=== PATIENT | female | born 1935 | race Caucasian/White ===

== ENCOUNTER → 2017-10-21 10:14 | Outpatient (CLI) | payer MEDICARE, SELFPAY ==
--- NOTE | 2017-10-21 10:17 | HPBI_ITS ---
MAMMOGRAPHY - BILATERAL SCREENING REASON FOR EXAM: Female, 82 years old. Routine annual screening examination. PERTINENT HISTORY: Sisters with breast cancer. TECHNIQUE: Digital bilateral breast courtney (3D mammographic acquisition) in the CC and MLO projections. 2-D mediolateral oblique (MLO) and craniocaudad (CC) views of both breasts were obtained. CAD: Full Field Digital Mammography with Computer Added Detection was performed. COMPARISON: Comparison is made with prior outside examination dated January 21, 2015. FINDINGS: Breast Composition: There are scattered areas of fibroglandular density. There are no dominant masses or suspicious calcifications. Stable bilateral benign-appearing axillary lymph nodes. No other significant abnormalities are identified. There has been no significant change since the prior study. HPBI/SCREENING MAMM (CAD), BILAT IMPRESSION: Stable bilateral screening mammogram. Yearly follow-up mammogram recommended. (A) ASSESSMENT CATEGORY: BIRADS Category 2: Benign. A letter regarding these results will be sent to the patient by the facility within 30 days. Approximately 10% of breast cancers are not detected by mammography. A normal mammogram should not delay biopsy of a clinically suspicious abnormality. [id number] Electronically Signed: Maury Castrejon MD at 15:40 EST Tel [phone], Service support ,
== END ==
PROVIDERS: Family Provider Family Medicine; PCP Family Medicine; Visit Provider Family Medicine
DX: Z12.31 Encounter for screening mammogram for malignant neoplasm of breast (principal)
CPT/HCPCS: 77063; 77067

== ENCOUNTER → 2018-11-03 08:29 | Outpatient (CLI) | payer MEDICARE, SELFPAY ==
--- NOTE | 2018-11-03 08:33 | BI_ITS ---
MAMMOGRAPHY - BILATERAL SCREENING REASON FOR EXAM: Female, 83 years old. Routine annual screening examination. PERTINENT HISTORY: Sisters with breast cancer. TECHNIQUE: Digital bilateral breast courtney (3D mammographic acquisition) in the CC and MLO projections. 2-D mediolateral oblique (MLO) and craniocaudad (CC) views of both breasts were obtained. CAD: Full Field Digital Mammography with Computer Added Detection was performed. COMPARISON: Comparison is made with prior study dated April 20, 2018. FINDINGS: Breast Composition: There are scattered areas of fibroglandular density. There are no dominant masses or suspicious calcifications. Stable bilateral benign-appearing axillary lymph nodes. No other significant abnormalities are identified. There has been no significant change since the prior study. BI/SCREENING MAMM (CAD), BILAT IMPRESSION: Stable bilateral screening mammogram. Yearly follow-up mammogram recommended. (A) ASSESSMENT CATEGORY: BIRADS Category 2: Benign. A letter regarding these results will be sent to the patient by the facility within 30 days. Approximately 10% of breast cancers are not detected by mammography. A normal mammogram should not delay biopsy of a clinically suspicious abnormality. [id number] Electronically Signed: Maury Castrejon MD at 10:09 EST , Service support ,
== END ==
PROVIDERS: Family Provider Family Medicine; PCP Family Medicine; Referring Provider Family Medicine; Visit Provider Family Medicine
DX: Z12.31 Encounter for screening mammogram for malignant neoplasm of breast (principal); Z80.3 Family history of malignant neoplasm of breast
CPT/HCPCS: 77063; 77067

== ENCOUNTER → 2019-10-31 10:30 | Outpatient (CLI) | payer MEDICARE, SELFPAY ==
--- NOTE | 2019-10-31 10:34 | RAD_ITS ---
STUDY: X-RAY - LUMBAR SPINE REASON FOR EXAM: Female, 84 years old. Low back pain. Recent fall. TECHNIQUE: 3 view(s) of the lumbar spine were obtained. COMPARISON: None FINDINGS: Generalized osteopenia. Normal lumbar lordosis. There is no substantial scoliosis. 9 mm of anterolisthesis of L4 on L5. Endplate concavities compatible with osteoporosis. Diffuse intervertebral disc space narrowing most marked at L4-5 and L5-S1. Marked vascular calcification. RAD/Lumbar Spine 2 or 3 Views IMPRESSION: Osteopenia with diffuse moderate lumbar spondylosis. Electronically Signed: Alexander Dsouza MD at 15:45 EST , Service support ,
--- NOTE | 2019-10-31 10:35 | RAD_ITS ---
STUDY: X-RAY - PELVIS REASON FOR EXAM: Female, 84 years old. Low back pain. Recent fall. TECHNIQUE: One view of the pelvis was obtained. COMPARISON: None. FINDINGS: There is a non-specific bowel gas pattern. Vascular calcification. Generalized osteopenia. Normal bilateral iliac wings, sacroiliac joints and visualized sacrum. Normal visualized bilateral superior and inferior pubic rami. Normal pubic symphysis. Normal ischial tuberosities. Mild medial arthrosis of both hips. 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 Electronically Signed: Alexander Dsouza MD at 15:45 EST , Service support ,
== END ==
PROVIDERS: PCP Family Medicine; Referring Provider Internal Medicine Gastroenterology; Visit Provider Internal Medicine Gastroenterology
DX: M54.5 Low back pain (principal)
CPT/HCPCS: 72100; 72110; 72170

== ENCOUNTER → 2020-02-22 07:41 | Outpatient (CLI) | payer MEDICARE, SELFPAY ==
--- NOTE | 2020-02-22 07:53 | BI_ITS ---
MAMMOGRAPHY - BILATERAL SCREENING REASON FOR EXAM: Female, 84 years old. Routine annual screening examination. PERTINENT HISTORY: Sisters with breast cancer. TECHNIQUE: Digital bilateral breast jose (3D mammographic acquisition) in the CC and MLO projections. 2-D mediolateral oblique (MLO) and craniocaudad (CC) views of both breasts were obtained. CAD: Full Field Digital Mammography with Computer Added Detection was performed. COMPARISON: Comparison is made with prior study dated October 2018 and October 21, 2017. FINDINGS: Breast Composition: There are scattered areas of fibroglandular density. There are no dominant masses or suspicious calcifications. Stable benign-appearing bilateral axillary lymph nodes. No other significant abnormalities are identified. There has been no significant change since the prior study. BI/SCREEN MAMM (CAD) W/JOSE BILAT IMPRESSION: Stable bilateral screening mammogram. Yearly follow-up mammogram recommended. (A) ASSESSMENT CATEGORY: BIRADS Category 2: Benign. A letter regarding these results will be sent to the patient by the facility within 30 days. Approximately 10% of breast cancers are not detected by mammography. A normal mammogram should not delay biopsy of a clinically suspicious abnormality. [id number] Electronically Signed: Maury Castrejon, at 9:25 EDT , Service support ,
[2020-02-22 08:09] LABS: Absolute Lymphocyte Count 1.36 X10^3/uL (0.83-4.51); Absolute Neutrophil Count 3.3 X10^3/uL (2.0-7.7); Basophil# 0.04 X10^3/uL; Basophil% 0.7 % (0-1); Eosinophil# 0.16 X10^3/uL; Eosinophils% 2.9 % (0-5); Hematocrit 39.4 % (37-47); Hemoglobin 13.1 g/dL (12.0-15.0); Lymphocyte # 1.36 X10^3/ul (4.0); Lymphocyte % 24.8 % (19-41); Mean Corp Hgb Conc 33.2 g/dL (32-36); Mean Corpuscular Volume 96.1 fL (81-99); Mean Platelet Vol. 8.7 fl (6.2-12.0); Monocyte# 0.57 X10^3/uL; Monocyte% 10.4 % (0-10); NRBC Flagged by Analyzer 0 % (0-5); Neutrophil # 3.34 X10^3/uL (2.7-7.7); Platelet Count 343 K/mm3 (150-450); RBC Distribution Width SD 42.4 fl (35.1-43.9); White Blood Count 5.5 K/mm3 (4.4-11.0)
[2020-02-22 08:13] LABS: Color, Urine Straw (Yellow); Glucose, Dipstick Normal (Normal); Ketone-Dipstick Negative (Negative); Leukocyte Esterase-Dipstick 25 /ul (Negative); Nitrite-Dipstick Negative (Negative); Occult Blood-Urine 10 /ul (Negative); Protein-Dipstick Negative (Negative); Urine Bilirubin Dipstick Negative (Negative); Urine Clarity Clear (Clear); Urine Urobilinogen Normal (Normal); Urine pH 6.5 (5.0 - 8.0)
[2020-02-22 08:33] LABS: ALB/GLOB Ratio 1.1 RATIO (0.9-2.4); AST(SGOT) 21 U/L (15-37); Alanine Aminotransfer ALT/SGPT 22 U/L (13-56); Albumin, Serum 4.2 g/dL (3.2-5.0); Alkaline Phosphatase 62 U/L (45-117); Anion Gap 7 (5-15); BUN 10 mg/dL (7-18); Calcium,Total 9.3 mg/dL (8.5-10.1); Chloride 94 mmol/L (98-107); Cholesterol 267 mg/dL (200); Creatinine, Serum 0.91 mg/dL (0.55-1.02); EST Glomerular Filtration Rate 63 mL/min (>60); Est Glom Filt Rate - Afr Amer 76 mL/min (>60); Globulin 3.7 g/dL (2.2-4.2); Glucose 113 mg/dL (74-106); High Density Lipoprotein 43 mg/dL; Potassium 4.1 mmol/L (3.5-5.1); Protein, Total 7.9 g/dL (6.4-8.2); Sodium Level 129 mmol/L (136-145); Thyroid Stim Hormone (TSH) 0.63 uIU/mL (0.358-3.74); Triglycerides 178 mg/dL; Very Low Density Lipoprotein 36 mg/dL (5-40)
== END ==
PROVIDERS: PCP Family Medicine; Referring Provider Family Medicine; Visit Provider Family Medicine
DX: Z12.31 Encounter for screening mammogram for malignant neoplasm of breast (principal); Z00.00 Encounter for general adult medical examination without abnormal findings; I10 Essential (primary) hypertension; E78.00 Pure hypercholesterolemia, unspecified; E03.9 Hypothyroidism, unspecified; I48.91 Unspecified atrial fibrillation
CPT/HCPCS: 36415; 77063; 77067; 80053; 80061; 81002; 84443; 85025

== ENCOUNTER 2020-06-04 08:54 | Emergency (ER) | payer MEDICARE, SELFPAY ==
[2020-06-04 08:59] VITALS: BP 195/86; PULSE 64; RESP 16; TEMP 36.4; O2SAT 98; BMI 24.3
--- NOTE | 2020-06-04 09:11 | RAD_ITS ---
STUDY: X-RAY - LEFT ANKLE REASON FOR EXAM: Female, 84 years old. Injury, pain TECHNIQUE: 3 view(s) of the ankle. COMPARISON: None. FINDINGS: Normal visualized distal tibia and fibula. Normal medial and lateral malleoli. Normal tibiotalar articulation and ankle mortise. Small spur at the insertion of the Achilles tendon. The visualized subtalar, talonavicular, calcaneocuboid and tarsal articulations are normal. The soft tissue structures are unremarkable. RAD/Ankle min 3 Views IMPRESSION: No acute abnormality is seen. Electronically Signed: Maury Castrejon, at 10:01 EDT , Service support ,
--- NOTE | 2020-06-04 09:19 | ED.DCSUM_ITS ---
- ER Visit Summary Date of Service: 06/04/20 Chief Complaint: Left ankle pain History of Present Illness: The patient is a 84 F who presents with left ankle pain. She states that a month ago she started having left ankle pain. Last week she went to a materials management supervisor and was diagnosed with a stress fracture in her left ankle/midfoot area. She states that she was laying in bed last night and felt a snap. This increased her pain mostly in the anterior portion of the ankle. Pain is worse with movement. She tried Tylenol without any relief. She denies any previous injuries or fractures to this ankle prior to the last month. Physical Examination: Vital signs are reviewed. Left ankle exam reveals tenderness anteriorly. She has no pain over the medial or lateral malleoli. She has decreased range of motion secondary to pain. There is no swelling. There is no erythema. She has a 2+ DP pulse. No skin changes. Test Results: Left ankle x-ray interpreted by myself and radiology shows no acute fractures Emergency Department Course and Treatment: I offered the patient oxycodone but she did not want this so I gave her 1 dose of ibuprofen. X-rays do not show any acute fractures. I am unclear as to why she is having pain in the anterior portion of her ankle. Is mostly tender over her tendon. She may have some tendinitis associated with this. I do not feel she has a tendon rupture. Patient was educated to use ice as well as Tylenol at home. She is going to call her materials management supervisor today for follow-up Treatment Plan: [] Disposition: Discharge Impression: Ankle pain, left This note was generated with [employer] dictation software. It may contain incorrect words, spelling, and punctuation that were not noted in review of the chart prior to signing ED Disposition - Plan for ED Patient: Disposition: Home or Assisted Living Instructions: ED Sprain Ankle W X Ray Referrals: Ricci Okeefe MD [Primary Care Provider] -
[2020-06-04] MEDS: Ibuprofen 200 MG Tablet 400 MG PO (09:22)
== END 2020-06-04 10:38 | disposition home or self-care (01) ==
PROVIDERS: Emergency Provider Emergency Medicine; PCP Family Medicine
DX: M25.572 Pain in left ankle and joints of left foot (principal); I10 Essential (primary) hypertension; E03.9 Hypothyroidism, unspecified; Z79.82 Long term (current) use of aspirin; Z79.899 Other long term (current) drug therapy
CPT/HCPCS: 73610; 99283

== ENCOUNTER → 2024-08-15 | Outpatient (REF) | payer MEDICARE, SELFPAY ==
[2024-08-15 09:28] LABS: International Normalized Ratio 1.2
== END ==
LOC: OLS.SANC 07:38
PROVIDERS: PCP Family Medicine
DX: Z79.01 Long term (current) use of anticoagulants (principal); Z79.899 Other long term (current) drug therapy
CPT/HCPCS: 36415; 85610

== ENCOUNTER → 2024-08-21 05:00 | Outpatient (REF) | payer MEDICARE, SELFPAY ==
[2024-08-21 09:01] LABS: Albumin, Serum 3.7 g/dL (3.2-5.0); BUN 10 mg/dL (7-18); Calcium,Total 9.3 mg/dL (8.5-10.1); Chloride 98 mmol/L (98-107); Creatinine, Serum 0.77 mg/dL (0.55-1.02); EST Glomerular Filtration Rate 75 mL/min (>60); Est Glom Filt Rate - Afr Amer 91 mL/min (>60); Glucose 103 mg/dL (74-106); Phosphorus 2.8 mg/dL (2.5-4.9); Potassium 4.3 mmol/L (3.5-5.1); Sodium Level 132 mmol/L (136-145)
== END ==
LOC: OLS.SANC 05:00
PROVIDERS: PCP Family Medicine
DX: I11.0 Hypertensive heart disease with heart failure (principal); I50.9 Heart failure, unspecified; I48.91 Unspecified atrial fibrillation; E03.9 Hypothyroidism, unspecified
CPT/HCPCS: 36415; 80069

== ENCOUNTER → 2024-08-22 05:00 | Outpatient (REF) | payer MEDICARE, SELFPAY ==
[2024-08-22 08:02] LABS: International Normalized Ratio 1.9; Prothrombin Time (Protime)PT. 21.7 SECONDS (11.7-14.9)
== END ==
LOC: OLS.SANC 05:00
PROVIDERS: PCP Family Medicine
DX: Z79.899 Other long term (current) drug therapy (principal)
CPT/HCPCS: 36415; 85610

== ENCOUNTER → 2024-08-29 | Outpatient (REF) | payer MEDICARE, SELFPAY ==
[2024-08-29 09:29] LABS: International Normalized Ratio 2.1; Prothrombin Time (Protime)PT. 23.5 SECONDS (11.7-14.9)
== END ==
LOC: OLS.SANC 04:55
PROVIDERS: PCP Family Medicine
DX: Z79.01 Long term (current) use of anticoagulants (principal)
CPT/HCPCS: 36415; 85610

== ENCOUNTER → 2025-06-28 | Outpatient (REF) | payer MEDICARE, SELFPAY ==
[2025-06-28 07:07] LABS: INR Fingerstick 2.4
== END ==
LOC: OLS.SANC 05:00
PROVIDERS: PCP Family Medicine; Visit Provider Internal Medicine
DX: Z79.01 Long term (current) use of anticoagulants (principal)
CPT/HCPCS: 36416; 85610

== ENCOUNTER → 2025-07-01 | Outpatient (REF) | payer MEDICARE, SELFPAY ==
--- OUTSIDE RECORDS SUMMARY | 2025-07-01 04:30 | XMS RPT_ITS | CCD ---
Author Organization [facility] Care Team Providers Care Radio Time Salesperson Name Role Phone Ricci Robbins Unavailable Unavailable Ricci Robbins Primary Care Provider [phone] Ricci Robbins Primary Care Provider Ricci Robbins Primary Care Provider Ricci Robbins Primary Care Provider [phone] ROLLER ENGINEER.Tanya BERGERON Primary Care Provider [address] ROLLER ENGINEER.Tanya BERGERON Primary Care Provider [address] ROLLER ENGINEER.Tanya BERGERON Primary Care Provider Sofía ZAMAN, Tomeka A Unavailable Andreas Casillas MD Unavailable Sofía ZAMAN, Tomeka A Unavailable [phone] ROLLER ENGINEER.Tanya BERGERON Primary Care Provider TANYA LOZANO Primary Care Unavailable DIDI ZAMAN, CHRISTINA Attending Unavail able DIDI ZAMAN, CHRISTINA Attending Unavail able TANYA LOZANO Primary Care Unavailable [address] ROLLER ENGINEER.Tanya BERGERON Unavailable [phone] Jose RN, Vera Unavailable Jose BOATENG, Vera Unavailable Sofía ZAMAN, Tomeka A Unavailable Nicole Mei Attending Unavailable Ricci Robbins Primary Care Unavailable Nicole Mei Attending Unavailable Ricci Robbins Primary Care Unavailable Jorge Meiet Attending Unavailable Ricci Robbins Primary Care Unavailable Nely KEENE, Nicole Referring Unavailable Mckay OLS, Nicole Referring Unavailable Nely KEENE, Nicole Attending Unavailable Ricci Robbins Primary Care Unavailable Vinny ZAMAN, Andreas Soriano Unavailable [phone] BLAKE, TANYA M Referring Unavailable BLAKE, TANYA M Primary Care Unavailable BLAKE, TANYA M Referring Unavailable BLAKE, TANYA M Primary Care Unavailable BLAKE, TANYA M Primary Care Unavailable BLAKE, TANYA M Primary Care Unavailable BLAKE, TANYA M Primary Care Unavailable BLAKE, TANYA M Referring Unavailable BLAKE, TANYA M Primary Care Unavailable TOMEKA GORE A Referring Unavailable BLAKE, TANYA M Primary Care Unavailable BLAKE, TANYA M Primary Care Unavailable BLAKE, TANYA M Primary Care Unavailable BLAKE, TANYA M Primary Care Unavailable BLAKE, TANYA M Referring Unavailable BLAKE, TANYA M Primary Care Unavailable GENIA HUITRON Attending Unavailable SELF Referring Unavailable BLAKE, TANYA M Primary Care Unavailable BLAKE, TANYA M Primary Care Unavailable BLAKE, TANYA M Attending Unavailable BLAKE, TANYA M Primary Care Unavailable BLAKE, TANYA M Referring Unavailable BLAKE, TANYA M Referring Unavailable BLAKE, TANYA M Primary Care Unavailable BLAKE, TANYA M Attending Unavailable BLAKE, TANYA M Primary Care Unavailable BLAKE, TANYA M Attending Unavailable GENIA HUITRON A Referring Unavailable BLAKE, TANYA M Referring Unavailable BLAKE, TANYA M Primary Care Unavailable BLAKE, TANYA M Primary Care Unavailable BLAKE, TANYA M Primary Care Unavailable DIANA NOGUEIRA Attending Unavailable NIGEL IRIZARRY Attending Unavailable BLAKE, TANYA M Primary Care Unavailable REESE CARUSO Referring Unavailabl e VINNY, DONNA A Admitting Unavailable DONNA CASILLAS Attending Unavailable TOMEKA GORE Consulting Unavailable BLAKE, TANYA M Primary Care Unavailable BLAKE, TANYA M Primary Care Unavailable PROVIDER, UNKNOWN Attending Unavailable PROVIDER, UNKNOWN Attending Unavailable BLAKE, TANYA M Primary Care Unavailable BLAKE, TANYA M Primary Care Unavailable REESE CARUSO Attending UnavailTIERA Christensen Attending Unavailable TANYA LOZANO Primary Care Unavailable TANYA LOZANO Primary Care Unavailable EVANGELISTA SOMMERS Attending UnavailSHIRLEY Leung Admitting Unavailable TOMEKA GORE Consulting Unavailable Allergies Allergy Classification Reported Allergen(s) Allergy Type Date of Onset Reaction(s) Facility Penicillins (antibiotic) (2 sources) [facility] S[facility] (antibiotic) (2 sources) Sulfonamides (Antibiotic) Drug Allergy 5 [facility] (19 sources) Penicillins; Translations: [PENICILLINS] Propensity to adverse reactions to drug 5 Unknown [place] (9 sources) Sulfonamides (Antibiotic) Propensity to adverse reactions to drug 5 [place] (11 sources) Tetracyclines & Related Propensity to adverse reactions to drug 5 [place] (14 sources) Penicillins Propensity to adverse reactions to drug 1 Unknown [facility] (20 sources) Sulfonamides (Antibiotic); Translations: [SULFA (SULFONAMIDE ANTIBIOTICS)] Propensity to adverse reactions to drug 1 Unknown [facility] (20 sources) Tetracycline (class of antibiotic); Translations: [TETRACYCLINES] Propensity to adverse reactions to drug 1 Unknown [facility] (20 sources) Penicillins Propensity to adverse reactions to drug 1 Unknown [facility] (20 sources) Tetracycline (class of antibiotic) Propensity to adverse reactions to drug 1 Unknown [facility] (20 sources) amLODIPine; Translations: [AMLODIPINE] Drug Allergy 4 Other: See Comments [facility] (18 sources) Penicillins Propensity to adverse reactions to drug 1 Unknown [facility] (1 source) Penicillins Drug allergy (disorder) 0 [facility] (1 source) Sulfonamides (Antibiotic) Drug allergy (disorder) 0 [facility] (1 source) Tetracycline Drug Allergy 0 [facility] (8 sources) Tetracyclines Propensity to adverse reactions to drug 1 Unknown [facility] (1 source) Chlorthalidone; Translations: [CHLORTHALIDONE] Drug Allergy 5 [facility] (1 source) hydroCHLOROthiazi de; Translations: [HYDROCHLOROTHIAZ KVNG] Drug Allergy 5 [facility] Medications Current Medications Medication Drug Class(es) Dates Sig (Normalized) Sig (Original) acetaminophen 500 mg oral tablet (20 sources) Start: 08-14-2024 take 2 tablets by mouth every eight hours acetaminophen (TYLENOL) 500 mg tablet Take 2 tablets by mouth every 8 hours. 08/14/2024 Active Start: 06-20-2020 End: 06-20-2020 acetaminophen (TYLENOL) tabl et 1,000 mg acetaminophen 325 mg / oxyCODONE hydrochloride 5 mg oral tablet (1 source) Opioid Agonist Start: 06-20-2020 End: 06-23-2020 take 1 tablet by mouth every six hours as needed for pain, then take 1 tablet by mouth as needed for pain oxyCODONE-acetaminophen (ENDOCET) 5-325 MG per tablet Indications: Spontaneous rupture of extensor tendon of left ankle Take 1 tablet by mouth every 6 hours as needed for Pain for up to 3 days. Intended supply: 3 days. Take lowest dose possible to manage pain 12 tablet 0 06/20/2020 06/23/2020 Active ALPRAZolam 0.25 mg disintegrating oral tablet (1 source) Benzodiazepine Start: 06-20-2020 ALPRAZolam (NIRAVAM) dissolvable tablet 0.25 mg azithromycin 250 mg oral tablet (10 sources) Macrolide Antimicrobial Start: 06-01-2025 azithromycin (ZITHROMAX Z-ZACH) 250 mg tablet Two Pills on day 1, One Pill daily on days 2-5 6 tablet 06/02/2025 Active calcium chloride 0.0014 meq/ml / potassium chloride 0.004 meq/ml / sodium chloride 0.103 meq/ml / sodium lactate 0.028 meq/ml injectable solution (1 source) Start: 06-20-2020 lactated ringers infusion carvedilol 25 mg oral tablet (20 sources) alpha-Adrenergic Doug, beta-Adrenergic Doug Start: 12-06-2024 take 1 tablet by mouth twice daily at mealtime carvedilol (COREG) 25 mg tablet 1 tablet with food Orally Twice a day for 90 days 12/06/2024 Active Start: 08-14-2024 End: 12-03-2024 take 1 tablet by mouth twice daily carvedilol (COREG) 6.25 mg tablet Take 1 tablet by mouth two times a day. 08/14/2024 12/03/2024 Discontinued (Other) Start: 09-15-2023 End: 12-19-2024 take 1 tablet by mouth twice daily at mealtime carvedilol (COREG) 12.5 mg tablet Take 1 tablet by mouth two times a day with meals. 180 tablet 1 11/26/2024 12/19/2024 Discontinued Start: 01-21-2022 End: 07-09-2024 take 2 tablets by mouth twice daily at mealtime carvedilol (COREG) 12.5 mg tablet Take 2 tablets by mouth two times a day. TAKE WITH FOOD. 360 tablet 04/10/2024 Suspended Start: 01-21-2022 take 1 tablet by kadeem th twice daily at mealtime carvedilol (COREG) 12.5 mg tablet Take 12.5 mg by mouth twice daily. TAKE WITH FOOD. 0 01/21/2022 Active Comment on above: Take 12.5 mg by mout h twice daily. TAKE WITH FOOD. Take 25 mg by mouth twice daily. TAKE WITH FOOD. cholecalciferol 0.05 mg oral capsule (20 sources) Vitamin D Cholecalciferol, Vitamin D3, 50 mcg (2,000 unit) cap Take by mouth once daily. Active Comment on above: Take by mouth once d aily. cyclobenzaprine hydrochloride 10 mg oral tablet (1 source) Muscle Relaxant Start: End: take 1 tablet by mouth twice daily as needed for muscle spasms cyclobenzaprine (FLEXERIL) 10 MG tablet Take 1 tablet by mouth 2 times daily as needed for Muscle spasms 30 tablet 0 06/20/2020 07/05/2020 Active 1 ml diphenhydrAMINE hydrochloride 50 mg/ml cartridge (1 source) Histamine-1 Receptor Antagonist Start: End: diphenhydrAMINE (BENADRYL) injection 12.5 mg 1 ml hydrALAZINE hydrochloride 20 mg/ml injection (1 source) Arteriolar Vasodilator Start: hydrALAZINE (APRESOLINE) injection 5 mg hydroCHLOROthiazide 50 mg / triamterene 75 mg oral tablet (8 sources) Potassium-sparing Diuretic, Thiazide Diuretic Start: 017 take 1 tablet by mouth once daily triamterene-hydrochlo rothiazide (MAXZIDE) 75-50 MG per tablet Indications: Essential hypertension Take 1 tablet by mouth daily 90 tablet 1 12/07/2016 Active 1 ml HYDROmorphone hydrochloride 1 mg/ml cartridge (3 sources) Opioid Agonist Start: HYDROmorphone (DILAUDID) injection 0.5 mg Start: 06-20-2020 HYDROmorphone (DILAUDID) injection 0.25 mg 4 ml labetalol hydrochloride 5 mg/ml cartridge (1 source) beta-Adrenergic Doug Start: 06-20-2020 labetalol (NORMODYNE;TRANDATE) injection 5 mg levothyroxine sodium 0.075 mg oral tablet (20 sources) l-Thyroxine Start: 04-29-2022 End: 02-14-2025 take 1 tablet by mouth once daily before breakfast levothyroxine (SYNTHROID) 75 mcg tablet Indications: Hypothyroidism, unspecified type Take 1 tablet by mouth daily before breakfast. 90 tablet 1 02/14/2025 Active Start: 11-26-2021 End: 01-13-2022 take 1 tablet by mouth once daily before breakfast levothyroxine (SYNTHROID) 75 mcg tablet Indications: Hypothyroidism, unspecified type Take 1 tablet by mouth daily before breakfast. 90 tablet 0 01/13/2022 Active Start: 09-30-2016 take 1 tablet by kadeem th once daily levothyroxine (SYNTHROID) 75 MCG tablet Indications: Hypothyroidism, unspecified type Take 1 tablet by mouth Daily 90 tablet 1 09/30/2016 Active Comment on above: Take 75 mcg by mouth daily before breakfast. Take 1 tablet by kadeem th daily before breakfast. 10 ml lidocaine hydrochloride 10 mg/ml injection (1 source) Antiarrhythmic, Amide Local Anesthetic Start: 06-20-20 End: 06-20-20 lidocaine PF 1 % injection 1 mL losartan potassium 100 mg oral tablet (20 sources) Angiotensin 2 Receptor Doug Start: 12-04-19 End: 12-20-19 take 2 tablets by mouth once daily losartan (COZAAR) 50 mg tablet Indications: Essential hypertension, benign Take 2 tablets by mouth once daily. 90 tablet 12/03/2024 12/19/2024 Discontinued Start: 08-14-2024 End: 12-03-2024 take 1 tablet by mouth once daily losartan (COZAAR) 50 mg tablet Indications: Essential hypertension, benign Take 1 tablet by mouth once daily. 90 tablet 10/04/2024 12/03/2024 Discontinued Start: 08-18-2021 End: 06-05-2025 take 1 tablet by mouth once daily losartan (COZAAR) 100 mg tablet Take 1 tablet by mouth once daily. 90 tablet 1 06/05/2025 Active Start: 12-07-2016 take 1 tablet by kadeem th once daily losartan (COZAAR) 50 MG tablet Indications: Essential hypertension Take 1 tablet by mouth daily 90 tablet 1 12/07/2016 Active Comment on above: Take 100 mg by mouth once daily. Take 1 tablet by kadeem th once daily. magnesium oxide 400 mg oral tablet (20 sources) Start: take 1 tablet by mouth once daily magnesium oxide (MAG-OX) 400 mg (241.3 mg magnesium) tablet Take 1 tablet by mouth once daily. 08/14/2024 Active 1 ml meperidine hydrochloride 25 mg/ml cartridge (1 source) Opioid Agonist Start: 0 meperidine (DEMEROL) injection 12.5 mg morphine injection 2 mg (1 source) Start: 0 morphine injection 2 mg 2 ml ondansetron 2 mg/ml injection (1 source) Serotonin-3 Receptor Antagonist Start: 0 End: 0 ondansetron (ZOFRAN) injection 4 mg oxyCODONE (2 sources) Opioid Agonist Start: 0 oxyCODONE (ROXICODONE) immediate release tablet 5 mg Start: 06-20-2020 End: 06-20-2020 oxyCODONE (ROXICODONE) immed iate release tablet 5 mg oxymetazoline hydrochloride 0.5 mg/ml nasal spray (2 sources) Start: 06-05-2025 Oxymetazoline HCl (AFRIN, OXYMETAZOLINE,) 0.05 % mist Use 1 spray in the nose as needed (as needed with active nosebleed). 14.7 mL 2 06/05/2025 Active pantoprazole 40 mg delayed release oral tablet (20 sources) Proton Pump Inhibitor Start: 04-29-2022 End: 11-26-2024 take 1 tablet by mouth once daily pantoprazole DR (PROTONIX) 40 mg tablet Indications: Gastroesophageal reflux disease without esophagitis Take 1 tablet by mouth once daily. 90 tablet 3 11/26/2024 Active Start: 08-18-2021 End: 01-13-2022 take 1 tablet by mouth once daily pantoprazole DR (PROTONIX) 40 mg tablet Indications: Gastroesophageal reflux disease without esophagitis Take 1 tablet by mouth once daily. 90 tablet 0 01/13/2022 Active take 1 tablet by kadeem th once daily pantoprazole (PROTONIX) 40 MG tablet Take 40 mg by mouth daily 0 Active Comment on above: Take 40 mg by mouth once daily. Take 1 tablet by kadeem th once daily. polyethylene glycol 3350 [id number] mg powder for oral solution (20 sources) Osmotic Laxative polyethylene gl ycol 3350 (MIRALAX, GLYCOLAX) 17 gram packet Take 17 g by mouth once daily. Dissolve dose in 4 - 8 ounces of liquid and take as directed. Active Comment on above: Take 17 g by mouth o nce daily. Dissolve dose in 4 - 8 ounces of liquid and take as directed. 1 ml promethazine hydrochloride 25 mg/ml injection (1 source) Phenothiazine Start: 06-20-2020 End: 06-20-2020 promethazine (PHENERGAN) injection 6.25 mg sodium chloride 0.111 meq/ml nasal spray (7 sources) Start: 06-05-2025 sodium chloride 0.65 % nasal spray Use 2 sprays in the nose five times a day. 30 mL 4 06/05/2025 Active Start: 01-07-2021 0.9 % sodium c hloride infusion Start: 06-20-2020 10 mL, Intrave nous, EVERY 12 HOURS SCHEDULED (2 times per day), First dose on Tue06/20/20 at 1145, Post-op Start: 06-20-2020 take 10 mL intravenous route o nce 10 mL, Intravenous, PRN, Line Care, Starting Tue06/20/20 at 1122 After every IV line use Post-op Start: 06-20-2020 sodium chlorid e flush 0.9 % injection 10 mL sodium chloride flush 0.9 % injection 3 mL (1 source) Start: 05-30-2020 sodium chlorid e flush 0.9 % injection 3 mL sodium chloride-aloe vera (AYR SALINE) topical nasal gel (2 sources) Start: 06-05-2025 sodium chloride-aloe vera (AYR SALINE) topical nasal gel 1 application by INTRANASAL route three times a day. 14.1 g 3 06/05/2025 Active warfarin sodium 2 mg oral tablet (20 sources) Vitamin K Antagonist Start: 09-08-2023 End: 11-26-2024 take 1 tablet by mouth once daily warfarin (COUMADIN) 3 mg tablet Indications: Paroxysmal atrial fibrillation (HCC) Take 1 tablet by mouth once daily. 90 tablet 3 11/26/2024 Active Start: 07-14-2023 End: 03-13-2025 take 1 tablet by mouth once daily warfarin (COUMADIN) 2 mg tablet Take 1 tablet by mouth daily as directed. 90 tablet 1 03/13/2025 Active Start: 11-09-2021 End: 06-16-2022 take 1 tablet by mouth once daily warfarin (COUMADIN) 3 mg tablet Indications: Paroxysmal atrial fibrillation (HCC) TAKE 1 TABLET BY MOUTH DAILY DIRECTED 90 tablet 3 06/16/2022 Active Start: 08-31-2021 End: 11-17-2022 take 1 tablet by mouth once daily warfarin (COUMADIN) 4 mg tablet Indications: Paroxysmal atrial fibrillation (HCC) Take 1 tablet by mouth once daily. 90 tablet 3 11/18/2022 Suspended Comment on above: Take 1 tablet by kadeem th once daily. Take 1 tablet by kadeem th daily as directed. TAKE 1 TABLET BY KADEEM TH DAILY DIRECTED Take 1 tablet by kadeem th daily as directed. All days of week except for (4mg on ) Completed/Discontinued Medications Medication Drug Class(es) Dates Sig (Normalized) Sig (Original) alendronic acid 70 mg oral tablet (4 sources) Bisphosphonate Start: 08-09-2023 take 1 tablet by mouth every week in the morning alendronate (FOSAMAX) 70 mg tablet Indications: Osteoporoses Take 1 tablet by mouth one time a week. In am with glass of water, on a empty stomach, nothing by mouth or lying down for 60 minutes 12 tablet 1 08/09/2023 Active Comment on above: Take 1 tablet by kadeem th one time a week. In am with glass of water, on a empty stomach, nothing by mouth or lying down for 60 minutes amLODIPine 2.5 mg oral tablet (18 sources) Dihydropyridine Calcium Channel Doug Start: 11-26-2021 End: 01-13-2022 take 1 tablet by mouth once daily amLODIPine (NORVASC) 2.5 mg tablet Indications: Essential hypertension, benign Take 1 tablet by mouth once daily. 90 tablet 0 01/13/2022 01/13/2022 Discontinued take 1 tablet by mouth once latonia y amLODIPine (NORVASC) 2.5 MG tablet Take 2.5 mg by mouth daily 0 Active Comment on above: Take 2.5 mg by mouth once daily. Take 1 tablet by kadeem th once daily. aspirin 81 mg oral tablet (20 sources) Platelet Aggregation Inhibitor, Nonsteroidal Anti-inflammatory Drug aspirin 81 mg cap Take by mouth. 0 Active take 1 tablet by mouth once latonia y aspirin (ASPIRIN 81) 81 MG chewable tablet Take 81 mg by mouth daily 0 Active Comment on above: Take by mouth. ceFAZolin (ANCEF) 2 g in dextrose 5 % 100 mL IVPB (1 source) Start: 0 End: 0 ceFAZolin (ANCEF) 2 g in dextrose 5 % 100 mL IVPB clopidogrel 75 mg oral tablet (5 sources) P2Y12 Platelet Inhibitor Start: 1 End: 2 take 1 tablet by mouth once daily clopidogrel (PLAVIX) 75 mg tablet 1 tablet by ORAL/FEEDING TUBE route once daily for 2 days. 2 tablet 0 08/12/2021 01/13/2022 Discontinued Comment on above: 1 tablet by ORAL/FEE DING TUBE route once daily for 2 days. famotidine 20 mg oral tablet (1 source) Histamine-2 Receptor Antagonist Start: 0 End: 0 famotidine (PEPCID) tablet 20 mg Start: 06-20-2020 End: 06-20-2020 famotidine (PEPCID) tablet 2 0 mg hyoscyamine sulfate 0.125 mg sublingual tablet (20 sources) Start: 06-24-2022 take 1 tablet under the tongue every six hours as needed hyoscyamine sublingual (LEVSIN SL) 0.125 mg TAKE 1 TABLET UNDER THE TONGUE EVERY 6 HOURS NEEDED 06/24/2022 Suspended Comment on above: TAKE 1 TABLET UNDER THE TONGUE EVERY 6 HOURS NEEDED iopamidol (ISOVUE-370) 76 % injection 75 mL (1 source) Start: 01-07-2021 End: 01-07-2021 iopamidol (ISOVUE-370) 76 % injection 75 mL meloxicam 15 mg oral tablet (1 source) Nonsteroidal Anti-inflammatory Drug End: 05-30-2020 take 1 tablet by mouth once daily meloxicam (MOBIC) 15 MG tablet Take 15 mg by mouth daily 0 05/30/2020 Discontinued (Therapy completed) 24 hr oxybutynin chloride 5 mg extended release oral tablet (20 sources) Cholinergic Muscarinic Antagonist Start: 04-29-2022 End: 03-06-2024 take 1 tablet by mouth once daily oxybutynin XL (DITROPAN XL) 5 mg 24 hr tablet Indications: Mixed stress and urge urinary incontinence Take 1 tablet by mouth once daily. 90 tablet 3 03/06/2024 Suspended Start: 08-18-2021 End: 01-13-2022 take 1 tablet by mouth once daily oxybutynin XL (DITROPAN XL) 5 mg 24 hr tablet Indications: Mixed stress and urge urinary incontinence Take 1 tablet by mouth once daily. 90 tablet 0 01/13/2022 Active Start: 09-30-2016 take 1 tablet by kadeem th once daily oxybutynin (DITROPAN XL) 5 MG extended release tablet Indications: Overactive bladder Take 1 tablet by mouth daily 90 tablet 1 09/30/2016 Active Comment on above: Take 5 mg by mouth o nce daily. Take 1 tablet by kadeem th once daily. pravastatin sodium 20 mg oral tablet (3 sources) HMG-CoA Reductase Inhibitor Start: 7 End: 0 take 1 tablet by mouth once daily pravastatin (PRAVACHOL) 20 MG tablet Indications: Hyperlipidemia, unspecified hyperlipidemia type Take 1 tablet by mouth daily 90 tablet 1 09/30/2016 06/13/2020 Discontinued (Therapy completed) propranolol hydrochloride 20 mg oral tablet (20 sources) beta-Adrenergic Doug Start: 1 End: 2 take 1 tablet by mouth twice daily propranolol (INDERAL) 20 mg tablet Take 1 tablet by mouth twice daily. 180 tablet 1 12/28/2021 Active Start: 09-30-2016 take 1 tablet by kadeem th twice daily propranolol (INDERAL) 20 MG tablet Indications: Essential hypertension Take 1 tablet by mouth 2 times daily 180 tablet 1 09/30/2016 Active Comment on above: Take 20 mg by mouth twice daily. Take 1 tablet by kadeem th twice daily. rosuvastatin calcium 20 mg oral tablet (6 sources) HMG-CoA Reductase Inhibitor Start: take 0.5 tablet by mouth once daily at bedtime rosuvastatin (CRESTOR) 20 mg tablet Take 0.5 tablets by mouth daily at bedtime. 30 tablet 1 08/11/2021 Active Comment on above: Take 0.5 tablets by mouth daily at bedtime. Problems Active Problems Problem Classification Problem Date Documented Date Episodic/Chronic Allergic reactions (1 source) Allergy status to penicillin; Translations: [Allergy to penicillin] Onset: 06-19-2025 Episodic Biliary tract disease (3 sources) Acquired dilation of bile duct; Translations: [Other specified diseases of biliary tract] 06-02-2021 Chronic Cardiac dysrhythmias (20 sources) Atrial fibrillation; Translations: [Unspecified atrial fibrillation] Onset: 07-29-2021 07-29-2021 Chronic Congestive heart failure; nonhypertensive (20 sources) Chronic diastolic heart failure; Translations: [Chronic diastolic (congestive) heart failure] Onset: 09-08-2023 09-08-2023 Chronic Diseases of white blood cells (3 sources) Leukocytosis; Translations: [Elevated white blood cell count, unspecified] 06-02-2021 Chronic Disorders of lipid metabolism (11 sources) Hyperlipidemia; Translations: [Hyperlipidemia, unspecified] Onset: 03-20-2015 03-20-2015 Chronic E Codes: Fall (20 sources) Fall in home; Translations: [Unspecified fall, sequela] Onset: 08-09-2024 08-09-2024 Episodic Esophageal disorders (20 sources) Gastroesophageal reflux disease; Translations: [Gastro-esophageal reflux disease without esophagitis] Onset: 08-09-2021 08-11-2021 Chronic Essential hypertension (20 sources) Hypertensive disorder; Translations: [Benign essential hypertension] Onset: 03-20-2015 03-20-2015 Chronic Fluid and electrolyte disorders (20 sources) Chronic hyponatremia; Translations: [Disorder of electrolytes] Onset: 08-09-2024 06-02-2021 Episodic Genitourinary symptoms and ill-defined conditions (5 sources) Mixed urinary incontinence; Translations: [Mixed incontinence] Chronic Hypertension with complications and secondary hypertension (1 source) Hypertensive urgency; Translations: [Hypertensive urgency] Onset: 08-09-2024 Chronic Malaise and fatigue (1 source) Weakness; Translations: [Weakness] Onset: 06-27-2025 Episodic Nausea and vomiting (4 sources) Nausea and vomiting; Translations: [Vomiting] 06-02-2021 Episodic Nutritional deficiencies (15 sources) Vitamin D deficiency; Translations: [Vitamin D deficiency, unspecified] Onset: 03-20-2015 06-26-2015 Chronic Osteoarthritis (11 sources) Degenerative joint disease involving multiple joints; Translations: [Polyosteoarthritis, unspecified] Onset: 03-20-2015 03-20-2015 Chronic Osteoporosis (4 sources) Osteoporosis; Translations: [Age-related osteoporosis without current pathological fracture] Onset: 01-03-2025 08-09-2023 Chronic Other aftercare (1 source) Long-term current use of anticoagulant; Translations: [[facility] (current) use of anticoagulants] Episodic Other aftercare (1 source) Other [facility] (current) drug therapy; Translations: [Other [facility] (current) drug therapy] Onset: 01-23-2025 Episodic Other aftercare (2 sources) long term acute care registered nurse (current) use of anticoagulants; Translations: [long term acute care registered nurse (current) use of anticoagulants] Onset: 01-23-2025 Episodic Other connective tissue disease (1 source) Spontaneous rupture of extensor tendons; Translations: [Spontaneous rupture of extensor tendon of left ankle] Episodic Other injuries and conditions due to external causes (1 source) Unspecified injury of right shoulder and upper arm, initial encounter; Translations: [Injury of right shoulder, initial encounter] Onset: 04-27-2025 Episodic Other skin disorders (2 sources) Lesion of scalp; Translations: [Disorder of the skin and subcutaneous tissue, unspecified] 12-19-2024 Episodic Other upper respiratory disease (1 source) Bleeding from nose; Translations: [Epistaxis] 06-05-2025 Episodic Other upper respiratory disease (2 sources) Epistaxis; Translations: [Epistaxis] Onset: 06-05-2025 Episodic Pancreatic disorders (not diabetes) (4 sources) Acute pancreatitis; Translations: [Acute pancreatitis without necrosis or infection, unspecified] Onset: 06-01-2021 06-02-2021 Episodic Residual codes; unclassified (1 source) Altered mental status; Translations: [Altered mental status, unspecified altered mental status type] Episodic Residual codes; unclassified (4 sources) Postmenopausal state; Translations: [Asymptomatic menopausal state] 07-19-2023 Episodic Spondylosis; intervertebral disc disorders; other back problems (11 sources) Degeneration of lumbosacral intervertebral disc; Translations: [Other intervertebral disc degeneration, lumbosacral region] Onset: 03-20-2015 03-20-2015 Chronic Superficial injury; contusion (20 sources) Hematoma of left thigh; Translations: [Contusion of left thigh, initial encounter] Onset: 08-09-2024 08-09-2024 Episodic Thyroid disorders (20 sources) Hypothyroidism; Translations: [Hypothyroidism, unspecified] Onset: 03-20-2015 03-20-2015 Chronic Transient cerebral ischemia (20 sources) Transient cerebral ischemia; Translations: [Transient cerebral ischemic attack, unspecified] Onset: 08-09-2021 08-11-2021 Chronic Unclassified (1 source) Unknown / UNK(Unknown) Onset: 03-15-2018 Past or Other Problems Problem Classification Problem Date Documented Date Episodic/Chronic Abdominal pain (5 sources) Epigastric pain; Translations: [Upper abdominal pain] Onset: 11-29-2024 06-02-2021 Episodic Conditions associated with dizziness or vertigo (20 sources) Lightheadedness; Translations: [Vertigo] Onset: 08-09-2021 08-09-2021 Episodic E Codes: Place of occurrence (1 source) Unspecified place in unspecified non-institutional (private) residence as the place of occurrence of the external cause; Translations: [Fall at home, sequela] Onset: 08-09-2024 Episodic Immunizations and screening for infectious disease (20 sources) Blood group antibody titer - finding; Translations: [Other specified abnormal immunological findings in serum] Onset: 08-25-2021 08-25-2021 Episodic Other circulatory disease (20 sources) History of transient ischemic attack; Translations: [Personal history of transient ischemic attack (TIA), and cerebral infarction without residual deficits] Onset: 08-09-2024 08-09-2024 Episodic Other circulatory disease (1 source) Personal history of transient ischemic attack (TIA), and cerebral infarction without residual deficits; Translations: [Hx-TIA (transient ischemic attack)] Onset: 08-09-2024 Episodic Other injuries and conditions due to external causes (20 sources) Hamstring injury; Translations: [Unspecified injury of muscle, fascia and tendon of the posterior muscle group at thigh level, left thigh, initial encounter] Onset: 08-10-2024 08-10-2024 Episodic Other injuries and conditions due to external causes (1 source) Unspecified injury of muscle, fascia and tendon of the posterior muscle group at thigh level, left thigh, initial encounter; Translations: [Hamstring injury, left, initial encounter] Onset: 08-11-2024 Episodic Other injuries and conditions due to external causes (1 source) Unspecified injury of muscle, fascia and tendon of the posterior muscle group at thigh level, unspecified thigh, initial encounter; Translations: [Hamstring injury, initial encounter] Onset: 08-09-2024 Episodic Other non-traumatic joint disorders (20 sources) Hip pain; Translations: [Pain in left hip] Onset: 08-09-2024 08-09-2024 Episodic Other screening for suspected conditions (not mental disorders or infectious disease) (20 sources) CT of abdomen abnormal; Translations: [Abnormal findings on diagnostic imaging of other abdominal regions, including retroperitoneum] Onset: 08-09-2024 06-02-2021 Episodic Other skin disorders (1 source) Disorder of the skin and subcutaneous tissue, unspecified; Translations: [Scalp lesion] Onset: 12-19-2024 Episodic Residual codes; unclassified (1 source) Asymptomatic menopausal state; Translations: [Post-menopausal] Onset: 01-03-2025 Episodic Spondylosis; intervertebral disc disorders; other back problems (20 sources) Sciatica; Translations: [Spinal stenosis of lumbar region] Onset: 03-20-2015 03-20-2015 Episodic Syncope (20 sources) Syncope; Translations: [Syncope and collapse] Onset: 09-07-2023 Resolved: 09-08-2023 09-08-2023 Episodic Unclassified (1 source) Z00.00,E78.00,E03.9, I10,I48.91 Onset: 03-15-2018 Results Test Name Value Interpretation Reference Range Facility [facility] 06-27-2025 CNCO Letter Text Normal [facility] CNDSon 06-27-2025 CNDS HNO ID: [id number] Author: DONNA CASILLAS MD Service: Hospital Medicine Author Type: Physician Type: Discharge Summary Filed: 06/27/2025 13:00 Note Text: DISCHARGE SUMMARY PATIENT NAME: Helen Lieberman ADMISSION DATE: 06/23/2025 DISCHARGE DATE: 06/27/2025 ATTENDING PHYSICIAN: Donna Casillas MD Code Status: DNR-CCA, DNI PCP: Tanya Lozano APRN.CNP Highest Readmission Risk Score: 26 The 30 day readmissions risk score is derived from an internally validated risk model which evaluates patient level characteristics, utilization history, medication orders and lab results up until the day of discharge. Patients with a score of 39 or above are considered highest risk for readmission. Specific patient level drivers will be listed at the bottom of the summary. TRANSITIONS OF CARE CRITICAL ISSUES: ROGERS MEDICATION CHANGES: Stop chlorthalidone Lowered dose of losartan ADDITIONAL FOLLOW UP NEEDS: PCP after SNF REASON FOR HOSPITALIZATION/FINAL DIAGNOSIS: Hyponatremia Weakness HOSPITAL PROBLEMS: Active Hospital Problems Diagnosis POA Advanced care planning/counseling discussion Yes Chronic diastolic CHF (congestive heart failure) (HCC) Yes Atrial fibrillation (HCC) Yes Hypothyroidism Yes Essential hypertension, benign Yes Resolved Hospital Problems Diagnosis POA Hyponatremia Yes Weakness Yes Hypokalemia Yes Hypochloremia Yes HOSPITAL COURSE: Admission Information Admission Information ADMIT DATE: 06/23/2025 DISCHARGE DATE: 06/27/2025 MY DOCTORS AND MEDICAL TEAM: My Main Hospital Doctor: Donna Casillas MD Primary Care Provider: Tanya Lozano APRN.CNP My Medical Team Members: Treatment Team: Attending Provider: Donna Casillas MD Consulting: Tomeka Gore MD Primary Service: 3, [facility] MY CONDITION AT DISCHARGE: Stable REASON I WAS IN THE HOSPITAL: Hyponatremia SUMMARY OF WHAT HAPPENED WHILE I WAS IN THE HOSPITAL: Helen Lieberman is a 89 year old female presented with past medical history of HTN, HFpEF, AFIB (on Coumadin), hx TIA, and GERD and hyponatremia/SIADH who presents with weakness and fatigue. Reports decreased intake and weakness over the past several days. States she also required nasal balloon recently for recurrent epistaxis. Is on warfarin for Afib. States he has history of hyponatremia. Has been compliant with home medications. Sodium 122 today with potassium 3.6 and chloride of 89. Received NS bolus. UA showed 1+ leuk esterase and rare bacteria. No urinary symptoms reported. Received dose rocephin. Admitted under hospital medicine service. Patient treated with Rocephin. Stopped chlorthalidone due to it causes hyponatremia. Can also not take HCTZ. Added to allergy list. DC to rehab. Check INR, BMP, CBC and Mag on Sunday 07/01 OTHER PROBLEMS/DIAGNOSIS: Principal Problem (Resolved): Hyponatremia Active Problems: Essential hypertension, benign Hypothyroidism Atrial fibrillation (HCC) Chronic diastolic CHF (congestive heart failure) (HCC) Advanced care planning/counseling discussion Resolved Problems: Weakness Hypokalemia Hypochloremia OPERATIONS PERFORMED WHILE IN THE HOSPITAL: None IMPORTANT TEST/PROCEDURES: No procedures performed TEST RESULTS NOT AVAILABLE AT THIS TIME: No pending results Discharge Disposition Discharge Disposition: Alf Facility - Less than 30 Days Activity When You Leave the Hospital Resume pre-hospital activity Diet Instructions Resume your pre-hospital diet CODE STATUS: DNR-CCA, DNI Form signed. OPERATIONS/PROCEDURE DURING THIS HOSPITALIZATION: * No surgery found * CONSULTS DURING HOSPITALIZATION: Treatment Team: Attending Provider: Donna Casillas MD Consulting: Tomeka Gore MD Primary Service: , [facility] PATIENT CONDITION AT DISCHARGE: Stable DISCHARGE DISPOSITION: Alf Facility Discharge Physical Exam: VITAL SIGNS: Blood Pressure 141/63 Pulse 70 Temperature 36.4 ?C (97.5 ?F) (Oral) Respiration 14 Height 157.5 cm (5' 2) Weight 54 kg (119 lb 0.8 oz) Oxygen Saturation 98% Body Mass Index 21.77 kg/m? GENERAL: Alert, no distress, cooperative SKIN: Skin color, texture, turgor normal. No rashes or lesions. HEAD/SINUSES: No significant findings EYES: PERRLA, EOMI LUNGS: Lungs clear to auscultation, Good diaphragmatic excursion CARDIAC: Normal S1 and S2; no rubs, murmurs, or gallops ABDOMEN: Abdomen soft, non-tender, BS normal, No masses or organomegaly EXTREMITIES: Extremities normal, no deformities, edema, clubbing or skin discoloration. Good capillary refill., No ulcers NEURO: Cranial nerves II-XII intact PULSES: 2+ radial, 2+ carotid WOUND/SURGICAL SITE CARE: None SUPPLIES OR EQUIPMENT: None DIET: Resume your pre-hospital diet ACTIVITY AND EXERCISE: Resume pre-hospital activity FOLLOW UP APPOINTMENTS: Future Appointments Date Time Provider Department Center (more content not included)... Normal [facility] CONSULT PROGon 06-27-2025 CONSULT PROG HNO ID: [id number] Author: TOMEKA GORE MD Service: Nephrology Author Type: Physician Type: Consult Progress Note Filed: 06/27/2025 11:22 Note Text: Patient seen and examined. Feels a bit better. Awaiting placement Blood pressure 121/51, pulse 82, temperature 36.7 ?C (98.1 ?F), temperature source Oral, resp. rate 16, height 157.5 cm (5' 2), weight 54 kg (119 lb 0.8 oz), SpO2 100%. Intake/Output Summary (Last 24 hours) at 06/27/2025 1121 Last data filed at 06/27/2025 0953 Gross per 24 hour Intake 1036 ml Output -- Net 1036 ml Gen: NAD Resp: clear CVS: no rub Abd: soft Ext: no edema Cr 0.8, Na 129, K 4.0 Osm 267, Uric 4.3 Urine Na 79, Osm 402 Impression: Resolved FANY Hyponatremia due to recent chlorthalidone; has tendency toward hyponatremia likely due to underlying SIADH. Na stable around 129 currently Hypertension - reasonable control currently. Normal orthostatics earlier this hospital stay Plan: Oral fluid restriction No thiazides please; added to allergy list Losartan at decreased dose on discharg No IVF OK with me for DC planning Normal [facility] Comprehensive metabolic 2000 panelon 06-27-2025 Albumin [Mass/Vol] 4.0 g/dL Normal 3.9-4.9 [facility] Comment on above: Order Comment: Speci men Type: BLOOD SPECIMENOrdering Facility: [facility] Address: [address] [place] [address] Performed By: #### 2 4323-8, 79284-1 ####[facility] LABORATORYCLIA [id number] [place] [address] [facility] ALP [Catalytic activity/Vol] 67 U/L Normal 34-123 [facility] Comment on above: Order Comment: Speci men Type: BLOOD SPECIMENOrdering Facility: [facility] Address: [address] [place] [address] Performed By: #### 2 432-8, ####[facility] LABORATORYCLIA [id number] [address] ALT [Catalytic activity/Vol] 11 U/L Normal 7-38 [facility] Comment on above: Order Comment: Speci men Type: BLOOD SPECIMENOrdering Facility: [facility] Address: [address] [place] [id number] Performed By: #### 2 8, ####[facility] LABORATORYCLIA [id number] [address] [place] Anion gap [Moles/Vol] 11 mmol/L Normal 8-15 [facility] Comment on above: Order Comment: Speci men Type: BLOOD SPECIMENOrdering Facility: [facility] Address: [address] [id number] Performed By: #### 2 4323-04, ####[facility] LABORATORYCLIA [id number] [address] [place] [facility] AST [Catalytic activity/Vol] 18 U/L Normal 13-35 [facility] Comment on above: Order Comment: Speci men Type: BLOOD SPECIMENOrdering Facility: [facility] Address: [address] [place] [address] Performed By: #### 2 4328, ####[facility] LABORATORYCLIA [id number] [address] [place] Bilirubin [Mass/Vol] 0.6 mg/dL Normal 0.2-1.3 [facility] Comment on above: Order Comment: Speci men Type: BLOOD SPECIMENOrdering Facility: [facility] Address: [address] [place] [address] Performed By: #### 2 432-8, ####MEYER LABORATORYCLIA [id number] [place] [address] [place] Calcium [Mass/Vol] 9.2 mg/dL Normal 8.5-10.2 [facility] Comment on above: Order Comment: Speci men Type: BLOOD SPECIMENOrdering Facility: [facility] Address: [address] [place] [address] Performed By: #### 2 4323-8, ####MEYER LABORATORYCLIA [id number] [place] [address] [place] Chloride [Moles/Vol] 92 mmol/L Low 98-107 [facility] Comment on above: Order Comment: Speci men Type: BLOOD SPECIMENOrdering Facility: [facility] Address: [address] [place] [address] Performed By: #### 2 4323-8, ####MEYER LABORATORYCLIA [id number] [place] [address] [place] CO2 [Moles/Vol] 26 mmol/L Normal 22-30 [facility] Comment on above: Order Comment: Speci men Type: BLOOD SPECIMENOrdering Facility: [facility] Address: [address] [place] [address] Performed By: #### 2 4323-8, ####MEYER LABORATORYCLIA [id number] [place] [address] [place] Creatinine [Mass/Vol] 0.81 mg/dL Normal 0.58-0.96 [facility] Comment on above: Order Comment: Speci men Type: BLOOD SPECIMENOrdering Facility: [facility] Address: [address] [place] [id number] Performed By: #### 2 4323-8, ####MEYER LABORATORYCLIA [id number] [place] [address] [place] eGFRcr SerPlBld CKD-EPI 2020 70 mL/min/1.73m??? Normal >=60 [facility] Comment on above: Order Comment: Speci men Type: BLOOD SPECIMENOrdering Facility: [facility] Address: [address] [place] [address] Result Comment: Dolores mated Glomerular Filtration Rate (eGFR) is calculated using the 2020 CKD-EPI creatinine equation. This equation utilizes serum creatinine, sex, and age as parameters. The creatinine assay has traceable calibration to isotope dilution-mass spectrometry. Refer to KDIGO guidelines for clinical interpretation. In patients with unstable renal function, e.g. those with acute kidney injury, the eGFR may not accurately reflect actual GFR. Performed By: #### 2 432-8, ####[facility] LABORATORYCLIA [id number] [place] [address] [place] Glucose [Mass/Vol] 100 mg/dL High 74-99 [facility] Comment on above: Order Comment: Marti hankins Type: BLOOD SPECIMENOrdering Facility: [facility] Address: [address] [place], [place] [id number] Result Comment: The [place] [employer] (ADA) provides guidance for cutoff values for fasting glucose and random glucose. The ADA defines fasting as no caloric intake for at least 8 hours. Fasting plasma glucose results between 100 to 125 mg/dL indicate increased risk for diabetes (prediabetes). Fasting plasma glucose results greater than or equal to 126 mg/dL meet the criteria for diagnosis of diabetes. In the absence of unequivocal hyperglycemia, results should be confirmed by repeat testing. In a patient with classic symptoms of hyperglycemia or hyperglycemic crisis, random plasma glucose results greater than or equal to 200 mg/dL meet the criteria for diagnosis of diabetes. Reference: Standards of Medical Care in Diabetes 2016, [place] [employer]. Diabetes Care. 2016.39(Suppl 1). Performed By: #### 2 43212-01, ####[facility] LABORATORYCLIA [id number] [place] [address] [place] Potassium [Moles/Vol] 4.0 mmol/L Normal 3.7-5.1 [facility] Comment on above: Order Comment: Marti hankins Type: BLOOD SPECIMENOrdering Facility: [facility] Address: [address] [place] [address] Performed By: #### 2 43212-01, ####[facility] LABORATORYCLIA [id number] [place] [address] [place] Protein [Mass/Vol] 6.8 g/dL Normal 6.3-8.0 [facility] Comment on above: Order Comment: Speci men Type: BLOOD SPECIMENOrdering Facility: [facility] Address: [address] [place] [address] Performed By: #### 2 4323-8, ####MEYER LABORATORYCLIA [id number] [place] [address] [place] Sodium [Moles/Vol] 129 mmol/L Low 136-144 [facility] Comment on above: Order Comment: Speci men Type: BLOOD SPECIMENOrdering Facility: [facility] Address: [address] [place] [address] Performed By: #### 2 4323-8, ####MEYER LABORATORYCLIA [id number] [place] [address] [place] Urea nitrogen [Mass/Vol] 16 mg/dL Normal 7-21 [facility] Comment on above: Order Comment: Speci men Type: BLOOD SPECIMENOrdering Facility: [facility] Address: [address] [place] [address] Performed By: #### 2 4323-8, ####MEYER LABORATORYCLIA [id number] [place] [address] [place] Magnesium SerPl-mCncon 06-27 Magnesium [Mass/Vol] 1.9 mg/dL Normal 1.7-2.3 [facility] Comment on above: Order Comment: Speci men Type: BLOOD SPECIMENOrdering Facility: [facility] Address: [address] [place] [address] Performed By: #### 2 4323-8, ####MEYER LABORATORYCLIA [id number] [place] [id number] [place] PT panel Coag (PPP)on 2024 INR Coag (PPP) [Relative time] 1.9 {INR} High 0.9-1.3 [facility] Comment on above: Order Comment: Speci men Type: BLOOD SPECIMEN [facility] Address: [address] [place] [address] Result Comment: Mirna min K Antagonist (VKA) Therapeutic Range: INR 2 to 3 (Target INR of 2.5) Note: For patients treated with VKA drugs, such as warfarin, the [place] [employer] 2012 Guideline recommends a therapeutic INR range of 2 to 3 (target INR of 2.5). This recommendation includes high-risk patients with antiphospholipid syndrome with previous arterial or venous thromboembolism, current-generation mechanical or bioprosthetic aortic heart valve replacement. Note: Patients with mechanical aortic valve replacement and additional risk factors for thromboembolic events (atrial fibrillation, previous thromboembolism, LV dysfunction, hypercoagulable conditions) or an older generation mechanical AVR (i.e., ball in-Cage) or any mechanical MVR should have a INR therapeutic range of 2.5 to 3.5 (target INR of 3). Kvng GH, et al. Chest 2012, 141:7S-47S Jayce RA et al. [facility] 2017, 70: 252-289 Performed By: #### 5 8410-2 #### [facility] CLIA [id number] [address] [place] [address] [place] PT Coag (PPP) [Time] 19.7 s High 9.7-13.0 [facility] Comment on above: Order Comment: Speci men Type: BLOOD SPECIMEN [facility] Address: [address] [place] [address] Performed By: #### 5 8410-2 #### [facility] CLIA [id number] [address] [place] CONSULT PROGon 06-26-2025 CONSULT PROG HNO ID: [id number] Author: TOMEKA GORE MD Service: Nephrology Author Type: Physician Type: Consult Progress Note Filed: 06/26/2025 15:21 Note Text: Patient seen and examined. Still quite tired. Awaiting pre-cert for [facility]. Blood pressure 127/60, pulse 71, temperature 36.6 ?C (97.8 ?F), temperature source Oral, resp. rate 16, height 157.5 cm (5' 2), weight 54 kg (119 lb 0.8 oz), SpO2 98%. Intake/Output Summary (Last 24 hours) at 06/26/2025 1520 Last data filed at 06/26/2025 1510 Gross per 24 hour Intake 536 ml Output -- Net 536 ml Gen: NAD Resp: clear CVS: no rub Abd: soft Ext: no edema Cr 0.8, Na 131, K 4.7 Osm 267, Uric 4.3 Urine Na 79, Osm 402 Impression: Resolved FANY Hyponatremia due to recent chlorthalidone; has tendency toward hyponatremia likely due to underlying SIADH. Na improving now up to 131 Hypertension - reasonable control currently. Normal orthostatics yesterday Plan: Oral fluid restriction No thiazides please Losartan at decreased dose No IVF OK with me for DC planning Normal [facility] Comprehensive metabolic 2000 panelon 06-26-2025 Albumin [Mass/Vol] 4.0 g/dL Normal 3.9-4.9 [facility] Comment on above: Order Comment: Speci men Type: BLOOD SPECIMEN [facility] Address: [address] [place] [address] Performed By: #### 5 8410-2 #### [facility] CLIA [id number] [address] [place] [facility] ALP [Catalytic activity/Vol] 68 U/L Normal 34-123 [facility] Comment on above: Order Comment: Shanikai cr Type: BLOOD SPECIMEN [facility] Address: [address] [place] [address] Performed By: #### 5 8410-2 #### [facility] CLIA [id number] [address] ALT [Catalytic activity/Vol] 10 U/L Normal 7-38 [facility] Comment on above: Order Comment: Speci men Type: BLOOD SPECIMEN [facility] Address: [address] [place] [address] Performed By: #### 5 8410-2 #### [facility] CLIA [id number] [address] Anion gap [Moles/Vol] 13 mmol/L Normal 8-15 [facility] Comment on above: Order Comment: Shanikai men Type: BLOOD SPECIMEN [facility] Address: [address] [place] [address] Performed By: #### 5 8410-2 #### [facility] CLIA [id number] [address] [place] [address] [place] AST [Catalytic activity/Vol] 14 U/L Normal 13-35 [facility] Comment on above: Order Comment: Speci men Type: BLOOD SPECIMEN [facility] Address: [address] [place] [address] Performed By: #### 5 8410-2 #### [facility] CLIA [id number] [address] [place] [address] [place] Bilirubin [Mass/Vol] 0.7 mg/dL Normal 0.2-1.3 [facility] Comment on above: Order Comment: Speci men Type: BLOOD SPECIMEN [facility] Address: [address] [place] [address] Performed By: #### 5 8410-2 #### [facility] CLIA [id number] [address] [place] [address] [place] Calcium [Mass/Vol] 9.4 mg/dL Normal 8.5-10.2 [facility] Comment on above: Order Comment: Speci men Type: BLOOD SPECIMEN [facility] Address: [address] [place] [address] Performed By: #### 5 8410-2 #### [facility] CLIA [id number] [address] [place] [address] [place] Chloride [Moles/Vol] 93 mmol/L Low 98-107 [facility] Comment on above: Order Comment: Speci men Type: BLOOD SPECIMEN [facility] Address: [address] [place] [address] Performed By: #### 5 8410-2 #### [facility] CLIA [id number] [address] [place] [address] [place] CO2 [Moles/Vol] 25 mmol/L Normal 22-30 [facility] Comment on above: Order Comment: Speci men Type: BLOOD SPECIMEN [facility] Address: [address] [place] [address] Performed By: #### 5 8410-2 #### [facility] CLIA [id number] [address] [place] [facility] Creatinine [Mass/Vol] 0.80 mg/dL Normal 0.58-0.96 [facility] Comment on above: Order Comment: Marti hankins Type: BLOOD SPECIMEN [facility] Address: [address] [place] [address] Performed By: #### 5 8410-2 #### [facility] CLIA [id number] [address] OF [facility] eGFRcr SerPlBld CKD-EPI 2020 71 mL/min/1.73m??? Normal >=60 [facility] Comment on above: Order Comment: Marti hankins Type: BLOOD SPECIMEN Ordering Facility: [facility] Address: [address] [place] [address] Result Comment: Dolores mated Glomerular Filtration Rate (eGFR) is calculated using the 2020 CKD-EPI creatinine equation. This equation utilizes serum creatinine, sex, and age as parameters. The creatinine assay has traceable calibration to isotope dilution-mass spectrometry. Refer to KDIGO guidelines for clinical interpretation. In patients with unstable renal function, e.g. those with acute kidney injury, the eGFR may not accurately reflect actual GFR. Performed By: #### 5 8410-2 #### [facility] CLIA [id number] [address] Glucose [Mass/Vol] 100 mg/dL High 74-99 [facility] Comment on above: Order Comment: Marti hankins Type: BLOOD SPECIMEN Ordering Facility: [facility] Address: [address] [place] [address] Result Comment: The [place] Diabetes Association (ADA) provides guidance for cutoff values for fasting glucose and random glucose. The ADA defines fasting as no caloric intake for at least 8 hours. Fasting plasma glucose results between 100 to 125 mg/dL indicate increased risk for diabetes (prediabetes). Fasting plasma glucose results greater than or equal to 126 mg/dL meet the criteria for diagnosis of diabetes. In the absence of unequivocal hyperglycemia, results should be confirmed by repeat testing. In a patient with classic symptoms of hyperglycemia or hyperglycemic crisis, random plasma glucose results greater than or equal to 200 mg/dL meet the criteria for diagnosis of diabetes. Reference: Standards of Medical Care in Diabetes 2016, [place] [employer]. Diabetes Care. 2016.39(Suppl 1). Performed By: #### 5 8410-2 #### [facility] CLIA [id number] [address] [place] [address] [place] Potassium [Moles/Vol] 4.7 mmol/L Normal 3.7-5.1 [facility] Comment on above: Order Comment: Speci men Type: BLOOD SPECIMEN Ordering Facility: [facility] Address: [address] [place] [address] Performed By: #### 5 8410-2 #### [facility] CLIA [id number] [address] [place] [address] [place] Protein [Mass/Vol] 6.9 g/dL Normal 6.3-8.0 [facility] Comment on above: Order Comment: Speci men Type: BLOOD SPECIMEN Ordering Facility: [facility] Address: [address] [place] [address] Performed By: #### 5 8410-2 #### [facility] CLIA [id number] [address] [place] [address] [place] Sodium [Moles/Vol] 131 mmol/L Low 136-144 [facility] Comment on above: Order Comment: Speci men Type: BLOOD SPECIMEN Ordering Facility: [facility] Address: [address] [place] [address] Performed By: #### 5 8410-2 #### [facility] CLIA [id number] [address] [place] [address] [place] Urea nitrogen [Mass/Vol] 13 mg/dL Normal 7-21 [facility] Comment on above: Order Comment: Speci men Type: BLOOD SPECIMEN Ordering Facility: [facility] Address: [address] [place] [address] Performed By: #### 5 8410-2 #### [facility] CLIA [id number] [address] [place] [address] [place] Magnesium SerPl-mCncon 06-26 Magnesium [Mass/Vol] 1.9 mg/dL Normal 1.7-2.3 [facility] Comment on above: Order Comment: Speci men Type: BLOOD SPECIMEN Ordering Facility: [facility] Address: [address] [place] [address] Performed By: #### 5 8410-2 #### [facility] CLIA [id number] [address] PT panel Coag (PPP)on 2024 INR Coag (PPP) [Relative time] 1.7 {INR} High 0.9-1.3 [facility] Comment on above: Order Comment: Marti hankins Type: BLOOD SPECIMEN Ordering Facility: [facility] Address: [address] [place] [address] Result Comment: Mirna min K Antagonist (VKA) Therapeutic Range: INR 2 to 3 (Target INR of 2.5) Note: For patients treated with VKA drugs, such as warfarin, the [place] [employer] 2012 Guideline recommends a therapeutic INR range of 2 to 3 (target INR of 2.5). This recommendation includes high-risk patients with antiphospholipid syndrome with previous arterial or venous thromboembolism, current-generation mechanical or bioprosthetic aortic heart valve replacement. Note: Patients with mechanical aortic valve replacement and additional risk factors for thromboembolic events (atrial fibrillation, previous thromboembolism, LV dysfunction, hypercoagulable conditions) or an older generation mechanical AVR (i.e., ball in-Cage) or any mechanical MVR should have a INR therapeutic range of 2.5 to 3.5 (target INR of 3). Kvng CARMONA, et al. Chest 2012, 141:7S-47S Jayce RA, et al. [facility] 2017, 70: 252-289 Performed By: #### 5 8410-2 #### [facility] CLIA [id number] [address] STATES [facility] PT Coag (PPP) [Time] 18.1 s High 9.7-13.0 [facility] Comment on above: Order Comment: Marti hankins Type: BLOOD SPECIMEN Ordering Facility: [facility] Address: [address] [place] [address] Performed By: #### 5 8410-2 #### [facility] CLIA [id number] [address] [place] THERAPY NTon 06-26-2025 THERAPY NT HNO ID: [id number] Author: MECHELLE JONAS OT/Anan Service: Occupational Therapy Author Type: Occupational Therapist Type: Therapy (PT/OT/Speech/Resp) Filed: 06/26/2025 14:48 Note Text: Summary: OT Treatment Occupational Therapy Treatment Summary SERVICE DATE: 06/26/2025 SERVICE TIME: 1408 to 1424 ROOM: [id number] OT 6 Clicks Score: 19 DISCHARGE RECOMMENDATIONS Subacute/SNF Recommended Discharge Disposition Comments: to maximize safety and independence with ADLs, IADLs, functional mobility and transfers Recommended Discharge Disposition Due to: Functional deficits requiring ongoing therapy service prior to discharge home., ADL impairment, Anticipated community discharge, Functional status decline, Requires multiple therapy disciplines Anticipated Discharge Needs: Physical Assist at Home, Supervision at Home Physical Assist at Home for: Cleaning, Laundry, Meals, Transportation, Shopping Supervision at Home due to: Other: See Comment (initially for optimal safety) Recommended Discharge Equipment: No equipment needs anticipated ASSESSMENT Response to Therapy Interventions: Low Activity Tolerance, Requires Encouragement to Complete Activities Tolerated sitting EOB for 9 min with c/o initial dizziness, improving over time. Declined further participation in functional activity secondary to fatigue. BP stable seated EOB (see chart). Continue to recommend SNF at this time, as patient remains functioning below baseline. PRECAUTIONS Fall Risk, Lines/Tubes/Drains CURRENT HOSPITAL COURSE Hyponatremia Relevant Past Medical History: HTN, HFpEF, AFIB (on Coumadin), hx TIA, and [facility] Patient Lives With: Family, Other: See Comment Comments: luis Assistance Available: 24-Hour Entry To Home: Stairs, With Rail Number Of Stairs Into Home: 3 Number Of Stairs To Bed/Bath: 1 story home however goes to the basement frequently Tub/Shower Type: walk in shower Laundry: first floor patient completes Equipment Owned: Cane, Grab Bars- Shower, Organ Fixer, Long Handled Sponge, Hand Held Shower PRIOR FUNCTIONAL LEVEL Within Functional Limits Patient reports independence with ADLs/IADLs 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 + driving, self medical management. Patient reports no use of AD within home, use of FWW in community. Patient reports 2 falls in past 6 months Baseline Cognition: Oriented to self, Oriented to place, Oriented to time, Oriented to situation SUBJECTIVE Patient reports she is feeling much better than when she was first admitted, however, still not her normal self. Reports of poor sleep overnight due to arrival of roommate (noise, light, etc.). COGNITION Orientation Deficits: (A+Ox4) Responsiveness: Alert, Awake, Other: See Comment (sleeping upon OT arrival, awakening easily w/ verbal cues) THERAPY DIAGNOSIS Reduced mobility-other, Decreased activities of daily living (ADL) TREATMENT INTERVENTIONS Self Jail Management (03754) Timed Code Treatment (minutes): 12 Skilled Treatment Time (minutes): 12 TRAINING AND EDUCATION PROVIDED Benefits of In-Hospital Mobility, Discharge Planning, Expected Functional Level, Positioning, Role of Occupational Therapy, Activity Adaptation/Compensatory Strategies, Sleep Hygiene, Treatment Protocol, Sitting Balance to Improve [place] with ADLs/Self-Care THERAPEUTIC SKILLS USED Activity Dosing, Assessment of Tolerance Including Vitals Response to Activity, Cues for Sequencing/Proper Technique for Activity, Cuing Verbal, Physical Assist, Therapeutic Use of Self FUNCTIONAL STATUS /per clinical judgment (as patient did not perform all functional tasks listed below this session) Activities of Daily Living Assist Level Additional Information Feeding Independent Grooming Contact Guard Assistance, Additional Information Anticipated at sink Bathing Upper Body Stand By Assistance Bathing Lower Body Contact Guard Assistance Dressing Upper Body Set Up Dressing Lower Body Contact Guard Assistance Toileting Contact Guard Assistance Mobility Assist Level Additional Information Bed Mobility Supine To Sit: Contact Guard Assistance, Additional Information HOB min elevated, to R, use of bed rail Sit To Supine: Stand By Assistance, Additional Information HOB near flat, from R Sit to Stand Additional Information pt declined attempt due to c/o fatigue Stand to Sit Contact Guard Assistance, Additional Information Bed to Chair Toilet/Commode Shower Functional Mobility GOALS Patient will demonstrate progress to optimize self-care activities, cognitive and/or coping to maximize function upon discharge. Rehab Potential: Good Progress Toward Goals: Progressing slower than expected due to fatigue ACUTE CARE TREATMENT PLAN OT Frequency: 3 T (more content not included)... Normal [facility] CONSULT PROGon 06-25-2025 CONSULT PROG HNO ID: [id number] Author: TOMEKA GORE MD Service: Nephrology Author Type: Physician Type: Consult Progress Note Filed: 06/25/2025 16:06 Note Text: Patient seen and examined. Feels a bit tired. BPs are reasonable. Blood pressure 135/59, pulse 70, temperature 36.7 ?C (98 ?F), temperature source Oral, resp. rate 17, height 157.5 cm (5' 2), weight 54 kg (119 lb 0.8 oz), SpO2 98%. 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 Normal orthostatics this AM Plan: Oral fluid restriction No thiazides please Losartan at decreased dose No IVF Consider limited urea if Na drops again Normal [facility] Comprehensive metabolic 2000 panelon 06-25-2025 Albumin [Mass/Vol] 3.9 g/dL Normal 3.9-4.9 [facility] Comment on above: Order Comment: Marti hankins Type: BLOOD SPECIMEN Ordering Facility: [facility] Address: [address] [place], [place] [address] [address] Performed By: #### 5 8410-2 #### [facility] CLIA [id number] [address] [place] [address] [place] ALP [Catalytic activity/Vol] 65 U/L Normal 34-123 [facility] Comment on above: Order Comment: Speci men Type: BLOOD SPECIMEN Ordering Facility: [facility] Address: [address] [place] [address] Performed By: #### 5 8410-2 #### [facility] CLIA [id number] [address] [place] ALT [Catalytic activity/Vol] 9 U/L Normal 7-38 [facility] Comment on above: Order Comment: Speci men Type: BLOOD SPECIMEN Ordering Facility: [facility] Address: [address] [place] [address] Performed By: #### 5 8410-2 #### [facility] CLIA [id number] [address] [place] [address] [place] Anion gap [Moles/Vol] 14 mmol/L Normal 8-15 [facility] Comment on above: Order Comment: Speci men Type: BLOOD SPECIMEN Ordering Facility: [facility] Address: [address] [place] [address] Performed By: #### 5 8410-2 #### [facility] CLIA [id number] [address] [place] AST [Catalytic activity/Vol] 19 U/L Normal 13-35 [facility] Comment on above: Order Comment: Speci men Type: BLOOD SPECIMEN Ordering Facility: [facility] Address: [address] [place] [address] Performed By: #### 5 8410-2 #### [facility] CLIA [id number] [address] [place] Bilirubin [Mass/Vol] 0.9 mg/dL Normal 0.2-1.3 [facility] Comment on above: Order Comment: Speci men Type: BLOOD SPECIMEN Ordering Facility: [facility] Address: [address] [place] [address] Performed By: #### 5 8410-2 #### [facility] CLIA [id number] [address] [place] Calcium [Mass/Vol] 9.3 mg/dL Normal 8.5-10.2 [facility] Comment on above: Order Comment: Speci men Type: BLOOD SPECIMEN Ordering Facility: [facility] Address: [address] [place] [address] Performed By: #### 5 8410-2 #### [facility] CLIA [id number] [address] [place] [address] [place] Chloride [Moles/Vol] 92 mmol/L Low 98-107 [facility] Comment on above: Order Comment: Speci men Type: BLOOD SPECIMEN Ordering Facility: [facility] Address: [address] [place] [address] Performed By: #### 5 8410-2 #### [facility] CLIA [id number] [address] [place] [address] [place] CO2 [Moles/Vol] 21 mmol/L Low 22-30 [facility] Comment on above: Order Comment: Speci men Type: BLOOD SPECIMEN Ordering Facility: [facility] Address: [address] [place] [address] Performed By: #### 5 8410-2 #### [facility] CLIA [id number] [address] STATES OF [facility] Creatinine [Mass/Vol] 0.79 mg/dL Normal 0.58-0.96 [facility] Comment on above: Order Comment: Speci men Type: BLOOD SPECIMEN Ordering Facility: [facility] Address: [address] [place] [address] Performed By: #### 5 8410-2 #### [facility] CLIA [id number] [address] [place] eGFRcr SerPlBld CKD-EPI 2020 72 mL/min/1.73m??? Normal >=60 [facility] Comment on above: Order Comment: Speci men Type: BLOOD SPECIMEN Ordering Facility: [facility] Address: [address] [place] [address] Result Comment: Dolores mated Glomerular Filtration Rate (eGFR) is calculated using the 2020 CKD-EPI creatinine equation. This equation utilizes serum creatinine, sex, and age as parameters. The creatinine assay has traceable calibration to isotope dilution-mass spectrometry. Refer to KDIGO guidelines for clinical interpretation. In patients with unstable renal function, e.g. those with acute kidney injury, the eGFR may not accurately reflect actual GFR. Performed By: #### 5 8410-2 #### [facility] CLIA [id number] [address] [place] [address] [place] Glucose [Mass/Vol] 92 mg/dL Normal 74-99 [facility] Comment on above: Order Comment: Marti hankins Type: BLOOD SPECIMEN Ordering Facility: [facility] Address: [address] [place] [address] Result Comment: The [place] [employer] (ADA) provides guidance for cutoff values for fasting glucose and random glucose. The ADA defines fasting as no caloric intake for at least 8 hours. Fasting plasma glucose results between 100 to 125 mg/dL indicate increased risk for diabetes (prediabetes). Fasting plasma glucose results greater than or equal to 126 mg/dL meet the criteria for diagnosis of diabetes. In the absence of unequivocal hyperglycemia, results should be confirmed by repeat testing. In a patient with classic symptoms of hyperglycemia or hyperglycemic crisis, random plasma glucose results greater than or equal to 200 mg/dL meet the criteria for diagnosis of diabetes. Reference: Standards of Medical Care in Diabetes 2016, [place] [employer]. Diabetes Care. 2016.39(Suppl 1). Performed By: #### 5 8410-2 #### [facility] CLIA [id number] [address] [place] [address] [place] Potassium [Moles/Vol] 4.0 mmol/L Normal 3.7-5.1 [facility] Comment on above: Order Comment: Marti hankins Type: BLOOD SPECIMEN Ordering Facility: [facility] Address: [address] [place] [address] Performed By: #### 5 8410-2 #### [facility] CLIA [id number] [address] [place] [address] [place] Protein [Mass/Vol] 6.7 g/dL Normal 6.3-8.0 [facility] Comment on above: Order Comment: Marti hankins Type: BLOOD SPECIMEN Ordering Facility: [facility] Address: [address] [place] [address] Performed By: #### 5 8410-2 #### [facility] CLIA [id number] [address] [place] [address] [place] Sodium [Moles/Vol] 127 mmol/L Low 136-144 [facility] Comment on above: Order Comment: Marti cr Type: BLOOD SPECIMEN Ordering Facility: [facility] Address: [address] [place] [address] Performed By: #### 5 8410-2 #### [facility] CLIA [id number] [address] STATES [place] [facility] Urea nitrogen [Mass/Vol] 13 mg/dL Normal 7-21 [facility] Comment on above: Order Comment: Marti men Type: BLOOD SPECIMEN Ordering Facility: [facility] Address: [address] [place] [address] Performed By: #### 5 8410-2 #### [facility] CLIA [id number] [address] [place] Magnesium SerPl-mCncon 06-25 Magnesium [Mass/Vol] 1.7 mg/dL Normal 1.7-2.3 [facility] Comment on above: Order Comment: Shanikakerrie hankins Type: BLOOD SPECIMEN Ordering Facility: [facility] Address: [address] [place] [address] Performed By: #### 5 8410-2 #### [facility] CLIA [id number] [address] [place] [facility] THERAPY NTon 06-25-2025 THERAPY NT HNO ID: [id number] Author: LEONARDO MCCARTNEY PTA Service: Physical Therapy Author Type: Continuous Miner Type: Therapy (PT/OT/Speech/Resp) Filed: 06/25/2025 14:03 Note Text: Attestation signed by Leonardo Whitney PT at 06/26/2025 5:21 PM I reviewed and agree with the documentation corresponding to this therapy visit. SIGNATURE: LEONARDO WHITNEY PT DATE: June 26, 2025 TIME: 5:21 PM PHYSICAL THERAPY MISSED VISIT SERVICE DATE: 06/25/2025 SERVICE TIME: 1401 ROOM: [place] [address] Patient not seen due to Declined to Participate. Patient sleeping upon arrival. Reports not feeling well today and wanting to defer PT treatment. Gentle encouragement provided however, patient continued to decline. Will re-attempt patient as schedule permits and with patient appropriateness. SIGNATURE: Leonardo Mccartney PTA PATIENT NAME: Helen Lieberman DATE: June 25, 2025 TIME: 2:02 PM [facility] Urate SerPl-mCncon Urate [Mass/Vol] 4.3 mg/dL Normal 2.5-6.6 [facility] Comment on above: Order Comment: Marti hankins Type: BLOOD SPECIMEN Ordering Facility: [facility] Address: [address] [place] [address] Performed By: #### 5 8410-2 #### [facility] CLIA [id number] [address] [place] [address] [place] Basic metabolic 2000 panelon 06-24-2025 Anion gap [Moles/Vol] 12 mmol/L Normal 8-15 [facility] Comment on above: Order Comment: Marti hankins Type: BLOOD SPECIMEN Ordering Facility: [facility] Address: [address] [place] [address] Performed By: #### 5 8410-2 #### [facility] CLIA [id number] [address] [place] [address] [place] Calcium [Mass/Vol] 8.9 mg/dL Normal 8.5-10.2 [facility] Comment on above: Order Comment: Marti hankins Type: BLOOD SPECIMEN Ordering Facility: [facility] Address: [address] [place] [address] Performed By: #### 5 8410-2 #### [facility] CLIA [id number] [address] [place] [address] [place] Chloride [Moles/Vol] 91 mmol/L Low 98-107 [facility] Comment on above: Order Comment: Marti hankins Type: BLOOD SPECIMEN Ordering Facility: [facility] Address: [address] [place] [address] Performed By: #### 5 8410-2 #### [facility] CLIA [id number] [address] [place] CO2 [Moles/Vol] 23 mmol/L Normal 22-30 [facility] Comment on above: Order Comment: Marti hankins Type: BLOOD SPECIMEN Ordering Facility: [facility] Address: [address] [place] [address] Performed By: #### 5 8410-2 #### [facility] CLIA [id number] [address] [place] [facility] Creatinine [Mass/Vol] 1.11 mg/dL High 0.58-0.96 [facility] Comment on above: Order Comment: Marti hankins Type: BLOOD SPECIMEN Ordering Facility: [facility] Address: [address] [place] [address] Performed By: #### 5 8410-2 #### [facility] CLIA [id number] [address] eGFRcr SerPlBld CKD-EPI 2020 48 mL/min/1.73m??? Low >=60 [facility] Comment on above: Order Comment: Marti hankins Type: BLOOD SPECIMEN Ordering Facility: [facility] Address: [address] [place] [address] Result Comment: Dolores mated Glomerular Filtration Rate (eGFR) is calculated using the 2020 CKD-EPI creatinine equation. This equation utilizes serum creatinine, sex, and age as parameters. The creatinine assay has traceable calibration to isotope dilution-mass spectrometry. Refer to KDIGO guidelines for clinical interpretation. In patients with unstable renal function, e.g. those with acute kidney injury, the eGFR may not accurately reflect actual GFR. Performed By: #### 5 8410-2 #### [facility] CLIA [id number] [address] [place] Glucose [Mass/Vol] 105 mg/dL High 74-99 [facility] Comment on above: Order Comment: Marti hankins Type: BLOOD SPECIMEN Ordering Facility: [facility] Address: [address] [place] [address] Result Comment: The [place] Diabetes [employer] (ADA) provides guidance for cutoff values for fasting glucose and random glucose. The ADA defines fasting as no caloric intake for at least 8 hours. Fasting plasma glucose results between 100 to 125 mg/dL indicate increased risk for diabetes (prediabetes). Fasting plasma glucose results greater than or equal to 126 mg/dL meet the criteria for diagnosis of diabetes. In the absence of unequivocal hyperglycemia, results should be confirmed by repeat testing. In a patient with classic symptoms of hyperglycemia or hyperglycemic crisis, random plasma glucose results greater than or equal to 200 mg/dL meet the criteria for diagnosis of diabetes. Reference: Standards of Medical Care in Diabetes 2016, [place] [employer]. Diabetes Care. 2016.39(Suppl 1). Performed By: #### 5 8410-2 #### [facility] CLIA [id number] [address] [place] [address] [place] Potassium [Moles/Vol] 4.1 mmol/L Normal 3.7-5.1 [facility] Comment on above: Order Comment: Marti hankins Type: BLOOD SPECIMEN Ordering Facility: [facility] Address: [address] [place] [address] Performed By: #### 5 8410-2 #### [facility] CLIA [id number] [address] [place] [address] [place] Sodium [Moles/Vol] 126 mmol/L Low 136-144 [facility] Comment on above: Order Comment: Marti hankins Type: BLOOD SPECIMEN Ordering Facility: [facility] Address: [address] [place] [address] Performed By: #### 5 8410-2 #### [facility] CLIA [id number] [address] [place] [address] [place] Urea nitrogen [Mass/Vol] 17 mg/dL Normal 7-21 [facility] Comment on above: Order Comment: Marti hankins Type: BLOOD SPECIMEN Ordering Facility: [facility] Address: [address] [place] [address] Performed By: #### 5 8410-2 #### [facility] CLIA [id number] [address] [place] [address] [place] Anion gap [Moles/Vol] 14 mmol/L Normal 8-15 [facility] Comment on above: Order Comment: Speci men Type: BLOOD SPECIMENOrdering Facility: [facility] Address: [address] [place] [address] Performed By: #### 2 4321-2 ####[facility] [id number] [place] [address] [place] Calcium [Mass/Vol] 9.2 mg/dL Normal 8.5-10.2 [facility] Comment on above: Order Comment: Speci men Type: BLOOD SPECIMENOrdering Facility: [facility] Address: [address] [place] [address] Performed By: #### 2 4321-2 ####[facility] [id number] [place] [address] [place] Chloride [Moles/Vol] 90 mmol/L Low 98-107 [facility] Comment on above: Order Comment: Speci men Type: BLOOD SPECIMENOrdering Facility: [facility] Address: [address] [place] [address] Performed By: #### 2 4321-2 ####[facility] [id number] [place] [address] [place] CO2 [Moles/Vol] 24 mmol/L Normal 22-30 [facility] Comment on above: Order Comment: Speci men Type: BLOOD SPECIMENOrdering Facility: [facility] Address: [address] [place] [address] Performed By: #### 2 4321-2 ####[facility] [id number] [place] [address] [place] Creatinine [Mass/Vol] 1.09 mg/dL High 0.58-0.96 [facility] Comment on above: Order Comment: Speci men Type: BLOOD SPECIMENOrdering Facility: [facility] Address: [address] [place] [address] Performed By: #### 2 4321-2 ####[facility] [id number] [place] [address] [place] eGFRcr SerPlBld CKD-EPI 2020 49 mL/min/1.73m??? Low >=60 [facility] Comment on above: Order Comment: Marti [facility] Type: BLOOD SPECIMENOrdering Facility: [facility] Address: [address] [place] [address] Result Comment: Dolores mated Glomerular Filtration Rate (eGFR) is calculated using the 2020 CKD-EPI creatinine equation. This equation utilizes serum creatinine, sex, and age as parameters. The creatinine assay has traceable calibration to isotope dilution-mass spectrometry. Refer to KDIGO guidelines for clinical interpretation. In patients with unstable renal function, e.g. those with acute kidney injury, the eGFR may not accurately reflect actual GFR. Performed By: #### 2 4321-2 ####[facility] [id number] [place] [address] [place] Glucose [Mass/Vol] 110 mg/dL High 74-99 [facility] Comment on above: Order Comment: [facility] Type: BLOOD SPECIMENOrdering Facility: [facility] Address: [address] [place] [address] Result Comment: The [place] [employer] Association (ADA) provides guidance for cutoff values for fasting glucose and random glucose. The ADA defines fasting as no caloric intake for at least 8 hours. Fasting plasma glucose results between 100 to 125 mg/dL indicate increased risk for diabetes (prediabetes). Fasting plasma glucose results greater than or equal to 126 mg/dL meet the criteria for diagnosis of diabetes. In the absence of unequivocal hyperglycemia, results should be confirmed by repeat testing. In a patient with classic symptoms of hyperglycemia or hyperglycemic crisis, random plasma glucose results greater than or equal to 200 mg/dL meet the criteria for diagnosis of diabetes. Reference: Standards of Medical Care in Diabetes 2016, [place] [employer]. Diabetes Care. 2016.39(Suppl 1). Performed By: #### 2 4321-2 ####[facility] [id number] [place] [id number] [place] Potassium [Moles/Vol] 4.3 mmol/L Normal 3.7-5.1 [facility] Comment on above: Order Comment: Speci men Type: BLOOD SPECIMENOrdering Facility: [facility] Address: [address] [place] [address] Performed By: #### 2 4321-2 ####[facility] [id number] [place] [address] [place] Sodium [Moles/Vol] 128 mmol/L Low 136-144 [facility] Comment on above: Order Comment: Speci men Type: BLOOD SPECIMENOrdering Facility: [facility] Address: [address] [place] [address] Performed By: #### 2 4321-2 ####[facility] [id number] [place] [address] [place] Urea nitrogen [Mass/Vol] 15 mg/dL Normal 7-21 [facility] Comment on above: Order Comment: Speci men Type: BLOOD SPECIMENOrdering Facility: [facility] Address: [address] [place] [address] Performed By: #### 2 4321-2 ####[facility] [id number] [place] [address] [place] Anion gap [Moles/Vol] 8 mmol/L Normal 8-15 [facility] Comment on above: Order Comment: Speci men Type: BLOOD SPECIMEN Ordering Facility: [facility] Address: [address] [place] [address] Performed By: #### 5 8410-2 #### [facility] CLIA [id number] [address] [place] [address] [place] Calcium [Mass/Vol] 9.2 mg/dL Normal 8.5-10.2 [facility] Comment on above: Order Comment: Speci men Type: BLOOD SPECIMEN Ordering Facility: [facility] Address: [address] [place] [address] Performed By: #### 5 8410-2 #### [facility] CLIA [id number] [address] [place] [address] [place] Chloride [Moles/Vol] 92 mmol/L Low 98-107 [facility] Comment on above: Order Comment: Speci men Type: BLOOD SPECIMEN Ordering Facility: [facility] Address: [address] [place] [address] Performed By: #### 5 8410-2 #### [facility] CLIA [id number] [address] [place] [address] [place] CO2 [Moles/Vol] 25 mmol/L Normal 22-30 [facility] Comment on above: Order Comment: Marti hankins Type: BLOOD SPECIMEN Ordering Facility: [facility] Address: [address] [place] [address] Performed By: #### 5 8410-2 #### [facility] CLIA [id number] [address] [place] [address] [place] Creatinine [Mass/Vol] 1.00 mg/dL High 0.58-0.96 [facility] Comment on above: Order Comment: Marti hankins Type: BLOOD SPECIMEN Ordering Facility: [facility] Address: [address] [place] [address] Performed By: #### 5 8410-2 #### [facility] CLIA [id number] [address] [place] eGFRcr SerPlBld CKD-EPI 2020 54 mL/min/1.73m??? Low >=60 [facility] Comment on above: Order Comment: Marti hankins Type: BLOOD SPECIMEN Ordering Facility: [facility] Address: [address] [place] [address] Result Comment: Dolores mated Glomerular Filtration Rate (eGFR) is calculated using the 2020 CKD-EPI creatinine equation. This equation utilizes serum creatinine, sex, and age as parameters. The creatinine assay has traceable calibration to isotope dilution-mass spectrometry. Refer to KDIGO guidelines for clinical interpretation. In patients with unstable renal function, e.g. those with acute kidney injury, the eGFR may not accurately reflect actual GFR. Performed By: #### 5 8410-2 #### [facility] CLIA [id number] [address] [place] Glucose [Mass/Vol] 94 mg/dL Normal 74-99 [facility] Comment on above: Order Comment: Marti hankins Type: BLOOD SPECIMEN Ordering Facility: [facility] Address: [address] [place] [address] Result Comment: The [place] Diabetes Association (ADA) provides guidance for cutoff values for fasting glucose and random glucose. The ADA defines fasting as no caloric intake for at least 8 hours. Fasting plasma glucose results between 100 to 125 mg/dL indicate increased risk for diabetes (prediabetes). Fasting plasma glucose results greater than or equal to 126 mg/dL meet the criteria for diagnosis of diabetes. In the absence of unequivocal hyperglycemia, results should be confirmed by repeat testing. In a patient with classic symptoms of hyperglycemia or hyperglycemic crisis, random plasma glucose results greater than or equal to 200 mg/dL meet the criteria for diagnosis of diabetes. Reference: Standards of Medical Care in Diabetes 2016, [place] [employer]. Diabetes Care. 2016.39(Suppl 1). Performed By: #### 5 8410-2 #### [facility] CLIA [id number] [address] [place] [address] [place] Potassium [Moles/Vol] 3.9 mmol/L Normal 3.7-5.1 [facility] Comment on above: Order Comment: Marti hankins Type: BLOOD SPECIMEN Ordering Facility: [facility] Address: [address] [place] [address] Performed By: #### 5 8410-2 #### [facility] CLIA [id number] [address] [place] [address] [place] Sodium [Moles/Vol] 125 mmol/L Low 136-144 [facility] Comment on above: Order Comment: Marti hankins Type: BLOOD SPECIMEN Ordering Facility: [facility] Address: [address] [place] [address] Performed By: #### 5 8410-2 #### [facility] CLIA [id number] [address] [place] [address] [place] Urea nitrogen [Mass/Vol] 17 mg/dL Normal 7-21 [facility] Comment on above: Order Comment: Marti hankins Type: BLOOD SPECIMEN Ordering Facility: [facility] Address: [address] [place] [address] Performed By: #### 5 8410-2 #### [facility] CLIA [id number] [address] [place] [address] [place] CBC panel Auto (Bld)on 06-24 Erythrocyte distribution width (RBC) [Ratio] 13.9 % Normal 11.5-15.0 [facility] Comment on above: Order Comment: Speci men Type: BLOOD SPECIMEN Ordering Facility: [facility] Address: [address] [place] [address] Performed By: #### 5 8410-2 #### [facility] CLIA [id number] [address] Hematocrit (Bld) [Volume fraction] 32.6 % Low 36.0-46.0 [facility] Comment on above: Order Comment: Speci men Type: BLOOD SPECIMEN Ordering Facility: [facility] Address: [address] [place] [address] Performed By: #### 5 8410-2 #### [facility] CLIA [id number] [address] Hemoglobin (Bld) [Mass/Vol] 11.3 g/dL Low 11.5-15.5 [facility] Comment on above: Order Comment: Speci men Type: BLOOD SPECIMEN Ordering Facility: [facility] Address: [address] [place] [address] Performed By: #### 5 8410-2 #### [facility] CLIA [id number] [address] MCH (RBC) [Entitic mass] 31.9 pg Normal 26.0-34.0 [facility] Comment on above: Order Comment: Speci men Type: BLOOD SPECIMEN Ordering Facility: [facility] Address: [address] [place] [address] Performed By: #### 5 8410-2 #### [facility] CLIA [id number] [address] MCHC (RBC) [Mass/Vol] 34.7 g/dL Normal 30.5-36.0 [facility] Comment on above: Order Comment: Speci men Type: BLOOD SPECIMEN Ordering Facility: [facility] Address: [address] [place] [address] Performed By: #### 5 8410-2 #### [facility] CLIA [id number] [address] [place] [address] [place] MCV (RBC) [Entitic vol] 92.1 fL Normal 80.0-100.0 [facility] Comment on above: Order Comment: Speci men Type: BLOOD SPECIMEN Ordering Facility: [facility] Address: [address] [place] [address] Performed By: #### 5 8410-2 #### [facility] CLIA [id number] [address] [place] [address] [place] Nucleated RBC (Bld) [#/Vol] 10*3/uL Normal <0.01 [facility] Comment on above: Order Comment: Speci men Type: BLOOD SPECIMEN Ordering Facility: [facility] Address: [address] [place] [address] Performed By: #### 5 8410-2 #### [facility] CLIA [id number] [address] [place] [address] [place] Platelet mean volume (Bld) [Entitic vol] 8.8 fL Low 9.0-12.7 [facility] Comment on above: Order Comment: Speci men Type: BLOOD SPECIMEN Ordering Facility: [facility] Address: [address] [place] [address] Performed By: #### 5 8410-2 #### [facility] CLIA [id number] [address] [place] [address] [place] Platelets (Bld) [#/Vol] 259 10*3/uL Normal 150-400 [facility] Comment on above: Order Comment: Speci men Type: BLOOD SPECIMEN Ordering Facility: [facility] Address: [address] [place] [address] Performed By: #### 5 8410-2 #### [facility] CLIA [id number] [address] [place] [address] [place] RBC (Bld) [#/Vol] 3.54 10*6/uL Low 3.90-5.20 [facility] Comment on above: Order Comment: Speci men Type: BLOOD SPECIMEN Ordering Facility: [facility] Address: [address] [place] [address] Performed By: #### 5 8410-2 #### [facility] CLIA [id number] [address] [place] [id number] [place] WBC (Bld) [#/Vol] 7.63 10*3/uL Normal 3.70-11.00 [facility] Comment on above: Order Comment: Speci men Type: BLOOD SPECIMEN Ordering Facility: [facility] Address: Formerly named [facility] [place] [address] Performed By: #### 5 8410-2 #### [facility] CLIA [id number] [address] [place] [address] [place] CONSULTon 06-24-2025 CONSULT HNO ID: [id number] Author: TOMEKA GORE MD Service: Nephrology Author Type: Physician Type: Consults Filed: 06/24/2025 16:28 Note Text: CONSULT: NEPHROLOGY SERVICE PATIENT NAME: Helen Lieberman DATE of SERVICE: 06/24/25 TIME of SERVICE: 4:20 PM REASON FOR CONSULT: hyponatremia REQUESTING PHYSICIAN: Dr. Casillas PRIMARY CARE PHYSICIAN: Tanya Lozano APRN.[employer] Mrs. Lieberman is a 89 year old female who presents for dizziness. She has had recurrent epistaxis recently and also was recently seen by her PCP Tanya Lozano. She was started on chlorthalidone 25mg daily for BP 174/88. 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 She also has Afib and labile HTN. She follows with me in office. She presented to hospital on 06/23 with Na 122. Chlorthalidone was stopped. She was started on gentle NS. BPs have been somewhat soft this admission so losartan was also decreased. Most recent Na 126-128. PAST MEDICAL HISTORY: PAST MEDICAL HISTORY Diagnosis Date Atrial fibrillation (HCC) 07/29/2021 Essential hypertension Gallstone pancreatitis (HCC) Pancreatitis (HCC) PAST SURGICAL HISTORY: PAST SURGICAL HISTORY Procedure Laterality Date SECTION HX x4 FOOT SURGERY HX right side HERNIA REPAIR HX KNEE SURGERY HX Right REMOVAL GALLBLADDER FAMILY HISTORY: FAMILY HISTORY Problem Relation Age of Onset Stroke Mother other (tia) Sister Diabetes Sister Dementia Sister Lung Cancer Sister Stroke Sister Hypertension Sister Heart Brother SOCIAL HISTORY: SOCIAL HISTORY[1] MEDICATIONS: Prior to Admission Medications: Prescriptions Prior to Admission[2] Current Facility-Administered Medications Medication Dose Route Frequency cefTRIAXone iv piggyback 1 g in dextrose (iso-osmotic) 50 mL (ROCEPHIN) 1 g INTRAVENOUS q 24 H NaCl 0.9% iv flush bag 20 mL INTRAVENOUS PRN carvedilol 25 mg tab(s) (COREG) 25 mg ORAL BID w MEALS pantoprazole DR 40 mg tab(s) (PROTONIX) 40 mg ORAL DAILY (6 AM) levothyroxine 75 mcg tab(s) (SYNTHROID) 75 mcg ORAL DAILY (6 AM) ondansetron orally disintegrating 4 mg tab(s) (ZOFRAN ODT) 4 mg ORAL q 6 H PRN Or ondansetron (PF) 4 mg injection (ZOFRAN) 4 mg INTRAVENOUS q 6 H PRN magnesium hydroxide 400 mg/5 mL 30 mL (MOM) 30 mL ORAL DAILY PRN acetaminophen 650 mg tab(s) (TYLENOL) 650 mg ORAL q 6 H PRN [START ON 06/25/2025] losartan 25 mg tab(s) (COZAAR) 25 mg ORAL DAILY ALLERGIES: ALLERGIES Allergen Reactions Amlodipine Other: See Comments Very intense leg cramps Chlorthalidone Other: See Comments Causes hyponatremia Penicillins Unknown Sulfa (Sulfonamide * Unknown Tetracyclines Unknown COMPLETE REVIEW OF SYSTEMS: Please see HPI PHYSICAL EXAM: Patient Vitals for the past 24 hrs: BP Temp Temp src Pulse Resp SpO2 Height Weight 06/24/2530 116/58 -- -- -- -- -- -- -- 06/24/25 0922 142/71 -- -- -- -- -- -- -- 06/24/25 0912 128/70 36.8 ?C (98.2 ?F) Oral 69 20 98 % -- -- 06/24/255 118/54 36.4 ?C (97.6 ?F) Axillary 74 16 97 % -- -- 06/23/258 156/65 36.6 ?C (97.9 ?F) Oral 71 18 99 % -- -- 06/23/252048 123/62 36.7 ?C (98.1 ?F) Oral 68 16 96 % 157.5 cm (5' 2) 54 kg (119 lb 0.8 oz) 06/23/253 -- -- -- 74 24 96 % -- -- 06/23/25 1908 -- -- -- 74 23 97 % -- -- 06/23/25 1853 119/61 -- -- 76 (!) 30 98 % -- -- 06/23/25 1838 -- -- -- 73 (!) 30 98 % -- -- 06/23/25 1808 -- -- -- 71 (!) 34 98 % -- -- 06/23/25 1753 -- -- -- 73 17 97 % -- -- 06/23/25 1738 145/65 -- -- 75 (!) 33 99 % -- -- 06/23/25 172 -- -- -- 76 16 99 % -- -- 06/23/25 1708 -- -- -- 75 (!) 43 97 % -- -- 06/23/25 1653 124/74 -- -- 68 (!) 36 97 % -- -- 06/23/25 1638 143/70 -- -- 74 (!) 27 97 % -- -- 06/23/25 1623 112/61 -- -- 74 (!) 31 97 % -- -- Body mass index is 21.77 kg/m?. GENERAL: Alert, No Distress SKIN: a bit pale HEAD/SINUSES: No significant findings EYES: EOMI EARS: Negative NOSE: Negative OROPHARYNX: no rub NECK: No jugulovenous distention LUNGS: diminished but clear CARDIAC: no rub ABDOMEN: Soft, nontender EXTREMITIES: min LE edema NEURO: Negative DATA: Radiology: Laboratory: Recent Labs 06/24/25 1447 06/24/25 0855 06/24/25 0238 06/23/25 2120 06/23/25 1450 CREAT 1.11* 1.09* 1.00* < > 0.86 BUN 17 15 17 < > 17 NA 126* 128* 125* < > 122* K 4.1 4.3 3.9 < > 3.6* CHLOR 91* 90* 92* < > 89* MG -- -- 1.7 -- 1.8 WBC -- -- 7.63 -- 8.17 ALB -- -- -- -- 4.1 ALKPHOS -- -- -- -- 69 AST -- -- -- -- 13 ALT -- -- -- -- 9 < > = values in this interval not displayed. Other: ASSESSMENT AND PLAN: Mild FANY in setting of soft BPs and ARB Hyponatremia likely due to recent addition of chlorthalidone HTN - quite variable on outpatient Plan: Oral fluid restriction Would not restart chlorthalidone or HCTZ; this has been a recurrent issue. Added chlorthalidone as allergy Agree with decreasing losartan Check orthostatics Stop (more content not included)... Normal [facility] Magnesium SerPl-mCncon 06-24 Magnesium [Mass/Vol] 1.7 mg/dL Normal 1.7-2.3 [facility] Comment on above: Order Comment: Marti hankins Type: BLOOD SPECIMEN Ordering Facility: [facility] Address: [address] [place] [address] Performed By: #### 5 8410-2 #### [facility] CLIA [id number] [address] [place] [address] [place] Osmolality Uron 06-24-2025 Osmolality (U) [Osmolality] 402 mosm/kg Normal 50-1200 [facility] Comment on above: Order Comment: Marti hankins Type: BLOOD SPECIMEN Ordering Facility: [facility] Address: [address] [place] [address] Performed By: #### 5 8410-2 #### [facility] CLIA [id number] [address] [place] PT panel Coag (PPP)on 2024 INR Coag (PPP) [Relative time] 2.0 {INR} High 0.9-1.3 [facility] Comment on above: Order Comment: Marti hankins Type: BLOOD SPECIMEN Ordering Facility: [facility] Address: [address] [place] [address] Result Comment: Mirna min K Antagonist (VKA) Therapeutic Range: INR 2 to 3 (Target INR of 2.5) Note: For patients treated with VKA drugs, such as warfarin, the [place] [employer] 2012 Guideline recommends a therapeutic INR range of 2 to 3 (target INR of 2.5). This recommendation includes high-risk patients with antiphospholipid syndrome with previous arterial or venous thromboembolism, current-generation mechanical or bioprosthetic aortic heart valve replacement. Note: Patients with mechanical aortic valve replacement and additional risk factors for thromboembolic events (atrial fibrillation, previous thromboembolism, LV dysfunction, hypercoagulable conditions) or an older generation mechanical AVR (i.e., ball in-Cage) or any mechanical MVR should have a INR therapeutic range of 2.5 to 3.5 (target INR of 3). Kvng GH, et al. Chest 2012, 141:7S-47S Jayce RA, et al. [facility] 2017, 70: 252-289 Performed By: #### 5 8410-2 #### [facility] CLIA [id number] [address] [facility] PT Coag (PPP) [Time] 20.3 s High 9.7-13.0 [facility] Comment on above: Order Comment: Marti hankins Type: BLOOD SPECIMEN Ordering Facility: [facility] Address: [address] [place] [address] Performed By: #### 5 8410-2 #### [facility] CLIA [id number] [address] [facility] Sodium ?Tm Ur-sCncon 025 Sodium Unsp time (U) [Moles/Vol] 79 mmol/L Normal 14-216 [facility] Comment on above: Order Comment: Marti hankins Type: BLOOD SPECIMEN Ordering Facility: [facility] Address: [address] [place] [address] Performed By: #### 5 8410-2 #### [facility] CLIA [id number] [address] [place] THERAPY NTon 06-24-2025 THERAPY NT HNO ID: [id number] Author: TORIE AUGUSTINE OT/Anna Service: Occupational Therapy Author Type: Occupational Therapist Type: Therapy (PT/OT/Speech/Resp) Filed: 06/24/2025 09:56 Note Text: Summary: OT Evaluation Occupational Therapy Evaluation Summary SERVICE DATE: 06/24/2025 SERVICE TIME: 921 ROOM: [id number] OT 6 Clicks Score: 19 DISCHARGE RECOMMENDATIONS Subacute/SNF Recommended Discharge Disposition Comments: to maximize safety and independence with ADLs, IADLs, functional mobility and transfers Recommended Discharge Disposition Due to: Functional deficits requiring ongoing therapy service prior to discharge home., ADL impairment, Anticipated community discharge, Functional status decline, Requires multiple therapy disciplines Anticipated Discharge Needs: Physical Assist at Home, Supervision at Home Physical Assist at Home for: Cleaning, Laundry, Meals, Transportation, Shopping Supervision at Home due to: Other: See Comment (initially for optimal safety) Recommended Discharge Equipment: No equipment needs anticipated ASSESSMENT Response to Therapy Interventions: Good Participation in Activities, Low Activity Tolerance Pt limited by dizziness. BP assessed seated and standing during session (see flowsheet) with readings indicating hypotension. Pt currently requires no more than CGA for ADLs and transfers, but limited by tolerance. Anticipate pt will progress during acute stay once medically stable. Will update recommendation as appropriate. Recommend SNF at this time PRECAUTIONS Bed/Chair Alarm, Fall Risk, Lines/Tubes/Drains, Impulsive with Activity CURRENT HOSPITAL COURSE Hyponatremia Relevant Past Medical History: HTN, HFpEF, AFIB (on Coumadin), hx TIA, and [facility] Patient Lives With: Family, Other: See Comment Comments: luis Assistance Available: 24-Hour Entry To Home: Stairs, With Rail Number Of Stairs Into Home: 3 Number Of Stairs To Bed/Bath: 1 story home however goes to the basement frequently Tub/Shower Type: walk in shower Laundry: first floor patient completes Equipment Owned: Cane, Grab Bars- Shower, Organ Fixer, Long Handled Sponge, Hand Held Shower PRIOR FUNCTIONAL LEVEL Within Functional Limits Patient reports independence with ADLs/IADLs 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 + driving, self medical management. Patient reports no use of AD within home, use of FWW in community. Patient reports 2 falls in past 6 months Baseline Cognition: Oriented to self, Oriented to place, Oriented to time, Oriented to situation SUBJECTIVE I can't walk, I already tried. RN cleared to work with pt. Pt pleasant and agreeable to this session COGNITION Orientation Deficits: (A+Ox4) Responsiveness: Alert, Awake Follows Commands: Cueing Needed Cueing to Follow Commands: Minimum THERAPY DIAGNOSIS Reduced mobility-other, Decreased activities of daily living (ADL) TREATMENT INTERVENTIONS Evaluation Skilled Treatment Time (minutes): 17 TRAINING AND EDUCATION PROVIDED Benefits of In-Hospital Mobility, Command Following, Discharge Planning, Expected Functional Level, Functional Mobility Involving ADLs, Identification of Systems of Support, Insight into Deficits, Positioning, Role of Occupational Therapy, Safety/Judgment, Sitting Balance to Improve [place] with ADLs/Self-Care, Standing Balance to Improve [place] with ADLs/Self-Care, Transfer - Sit to Stand, Treatment Protocol THERAPEUTIC SKILLS USED Activity Dosing, Assessment of Tolerance Including Vitals Response to Activity, Cues for Sequencing/Proper Technique for Activity, Cuing Verbal, Physical Assist, Therapeutic Use of Self FUNCTIONAL STATUS Activities of Daily Living Assist Level Additional Information Feeding Independent Grooming Contact Guard Assistance, Additional Information if standing sinkside Bathing Upper Body Stand By Assistance Bathing Lower Body Contact Guard Assistance Dressing Upper Body Set Up Dressing Lower Body Contact Guard Assistance Toileting Contact Guard Assistance Mobility Assist Level Additional Information Bed Mobility Supine To Sit: Stand By Assistance, Additional Information flat bed, no rail, exit to L Sit To Supine: Stand By Assistance, Additional Information Scooting: Stand By Assistance, Additional Information flat bed, from L, no rail forward to EOB Sit to Stand Contact Guard Assistance, Additional Information from EOB up to FWW level with cues for hand placement Stand to Sit Contact Guard Assistance, Additional Information for controlled descent to EOB with cues for hand placement Bed to Chair Toilet/Commode Shower Functional Mobility Additional Information unable to safely progress due to pt report of dizziness GOALS Patient will demonstra (more content not included)... [facility] THERAPY NT HNO ID: [id number] Author: MENDEL JUAREZ, PT Service: Physical Therapy Author Type: Physical Therapist Type: Therapy (PT/OT/Speech/Resp) Filed: 06/24/2025 09:19 Note Text: Summary: PT Evaluation Physical Therapy Evaluation Summary SERVICE DATE: 06/24/2025 SERVICE TIME: 854 to 906 ROOM: [id number] PT 6 Clicks Score: 17 DISCHARGE RECOMMENDATIONS Subacute/SNF Recommended Discharge Disposition Comments: Pt currently functioning below baseline with increased pain, decreased ROM, decreased strength, impaired activity tolerance, impaired balance, and overall decreased functional mobility. Pt requires daily skilled services post acute stay to address deficits Recommended Discharge Disposition Due to: Functional deficits requiring ongoing therapy service prior to discharge home., Balance deficits Anticipated Discharge Needs: Physical Assist at Home, Supervision at Home Physical Assist at Home for: Cleaning, Laundry, Meals, Transportation, Shopping Supervision at Home due to: Other: See Comment (for optimal safety) Recommended Discharge Equipment: No equipment needs anticipated ASSESSMENT Response to Therapy Interventions: Low Activity Tolerance, Good Participation in Activities Patient pleasant and motivated to participate. SBA for bed mobility, CGA to stand EOB however reports wooziness limiting ambulation progression. Anticipate patient will progress when able to perform gait training tasks. PRECAUTIONS Bed/Chair Alarm, Fall Risk, Lines/Tubes/Drains, Impulsive with Activity CURRENT HOSPITAL COURSE Hyponatremia Relevant Past Medical History: HTN, HFpEF, AFIB (on Coumadin), hx TIA, and [facility] Patient Lives With: Family, Other: See Comment Comments: grandson Assistance Available: 24-Hour Entry To Home: Stairs, With Rail Number Of Stairs Into Home: 5 Number Of Stairs To Bed/Bath: 1 story home however goes to t the basement frequently Tub/Shower Type: walk in shower Laundry: first floor patient completes Equipment Owned: Cane, Grab Bars- Shower, Organ Fixer, Long Handled Sponge PRIOR FUNCTIONAL LEVEL Within Functional Limits Patient reports independence with ADLs/IADLs 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 + driving, self medical management. Patient reports no use of AD within home, use of FWW in community. Patient reports 2 falls in past 6 months SUBJECTIVE Patient reports, I came in because of my nose bleeds! Agreeable to PT, cleared with RN, son at bedside THERAPY DIAGNOSIS Reduced mobility-other, Muscle Weakness (generalized) TREATMENT INTERVENTIONS Evaluation TRAINING AND EDUCATION PROVIDED Anatomy and Impact on Deficits, Assistive Device Use, Bed Mobility, Benefits of In-Hospital Mobility, Falls Prevention, Expected Functional Level, Role of Physical Therapy, Sitting Balance, Transfers, Standing Balance, Treatment Protocol THERAPEUTIC SKILLS USED Activity Dosing, Cues for Sequencing/Proper Technique for Activity, Cuing Tactile, Cuing Verbal, Cuing Visual, Bed in Chair Position, Facilitation of Joint Range of Motion, Management of Critical Lines, Tubes and/or Drains, Physical Assist, Postural Alignment Correction, Muscle Activation Facilitation FUNCTIONAL STATUS Bed Mobility Supine To Sit: Additional Information Sitting EOB at approach Sit to Supine: Additional Information Sitting EOB at session end Scooting: Stand By Assistance Transfers Sit To Stand: Additional Information, Contact Guard Assistance X 2 trials, patient reports woozy feeling each trial, does not subside with static standing Stand To Sit: Contact Guard Assistance Bed to Chair Gait Additional Information Attempted to step away from EOB with handheld assist however patient experiences LOB and returns to seated position. Patient reports she is feeling too woozy to ambulate, however states she ambulated to/from bathroom with RN this morning with no issue. Anticipate progression to Home PT when patient is able to safely attempt ambulation Stairs GOALS Patient will demonstrate progress with functional mobility to allow safe discharge to home with available support and/or physical assistance. Transfer Sit to/from Stand with: Contact Guard Assistance Ambulate with: Contact Guard Assistance Distance: 60 feet Device: Other: See Comment (LRAD) Ambulate Up and Down Steps with: Contact Guard Assistance Number of Steps: 5 Device: Rail Rehab Potential: Good Good Rehab Potential Due To: Current objective clinical presentation, Good overall health status, Good support system/ coping skills, Good motivation Progress Toward Goals: Progressing slower than expected ACUTE CARE TREATMENT PLAN PT Frequency: 5 Times Per Week Treatment Interventions: Education, Self Care / Home Management, Energy Con (more content not included)... [facility] ALLIED HEALTHon 06-23-2025 ALLIED HEALTH HNO ID: [id number] Author: EVELYNE DEL CID RT(Jodee) Service: Radiology Author Type: Technologist Type: Allied Health Filed: 06/23/2025 14:54 Note Text: Radiology Service Progress Note PATIENT NAME: Helen Lieberman DATE OF SERVICE: June 23, 2025 TIME: 2:54 PM PATIENT IDENTITY VERIFICATION COMPLETED USING TWO (2) IDENTIFIERS: Name and Date of confirmed by patient verbally and Name and Date of confirmed by identification band. FALL SCREENING: Has the patient had 2 falls in the last year or 1 fall with injury or currently using an Ambulatory Assistive Device (Walker, Cane, Wheelchair, Crutches, etc.)? Emergency Room Patient: Screened in ED PATIENT GENDER DATA: Assigned male at PATIENT RELEVANT IMPLANT DATA REVIEWED: Not Applicable PATIENT PRESENTS WITH AN IMPLANTABLE OR ATTACHED LAB SCIENTIST: No RADIOLOGY DEPARTMENT: General X-ray: Exam(s) Completed: Chest X-Ray PERIPHERAL IV DATA: Not applicable SIGNED BY: RT Enriqueta(R) June 23, 2025 2:54 PM [facility] Basic metabolic 2000 panelon 06-23-2025 Anion gap [Moles/Vol] 12 mmol/L Normal 8-15 [facility] Comment on above: Order Comment: Marti hankins Type: BLOOD SPECIMEN Ordering Facility: [facility] Address: [address] [place] [address] Performed By: #### 5 8410-2 #### [facility] CLIA [id number] [address] [place] [address] [place] Calcium [Mass/Vol] 9.3 mg/dL Normal 8.5-10.2 [facility] Comment on above: Order Comment: Marti hankins Type: BLOOD SPECIMEN Ordering Facility: [facility] Address: [address] [place] [address] Performed By: #### 5 8410-2 #### [facility] CLIA [id number] [address] [place] [address] [place] Chloride [Moles/Vol] 86 mmol/L Low 98-107 [facility] Comment on above: Order Comment: Speci men Type: BLOOD SPECIMEN Ordering Facility: [facility] Address: [address] [place] [address] Performed By: #### 5 8410-2 #### [facility] CLIA [id number] [address] [place] [address] [place] CO2 [Moles/Vol] 26 mmol/L Normal 22-30 [facility] Comment on above: Order Comment: Speci men Type: BLOOD SPECIMEN Ordering Facility: [facility] Address: [address] [place] [address] Performed By: #### 5 8410-2 #### [facility] CLIA [id number] [address] [place] [address] [place] Creatinine [Mass/Vol] 0.89 mg/dL Normal 0.58-0.96 [facility] Comment on above: Order Comment: Speci men Type: BLOOD SPECIMEN Ordering Facility: [facility] Address: [address] [place] [address] Performed By: #### 5 8410-2 #### [facility] CLIA [id number] [address] [place] [address] [place] eGFRcr SerPlBld CKD-EPI 2020 62 mL/min/1.73m??? Normal >=60 [facility] Comment on above: Order Comment: Shanikai men Type: BLOOD SPECIMEN Ordering Facility: [facility] Address: [address] [place] [address] Result Comment: Dolores mated Glomerular Filtration Rate (eGFR) is calculated using the 2020 CKD-EPI creatinine equation. This equation utilizes serum creatinine, sex, and age as parameters. The creatinine assay has traceable calibration to isotope dilution-mass spectrometry. Refer to KDIGO guidelines for clinical interpretation. In patients with unstable renal function, e.g. those with acute kidney injury, the eGFR may not accurately reflect actual GFR. Performed By: #### 5 8410-2 #### [facility] CLIA [id number] [address] [place] [address] [place] Glucose [Mass/Vol] 133 mg/dL High 74-99 [facility] Comment on above: Order Comment: Speci men Type: BLOOD SPECIMEN Ordering Facility: [facility] Address: [address] [place] [address] Result Comment: The [place] [employer] Association (ADA) provides guidance for cutoff values for fasting glucose and random glucose. The ADA defines fasting as no caloric intake for at least 8 hours. Fasting plasma glucose results between 100 to 125 mg/dL indicate increased risk for diabetes (prediabetes). Fasting plasma glucose results greater than or equal to 126 mg/dL meet the criteria for diagnosis of diabetes. In the absence of unequivocal hyperglycemia, results should be confirmed by repeat testing. In a patient with classic symptoms of hyperglycemia or hyperglycemic crisis, random plasma glucose results greater than or equal to 200 mg/dL meet the criteria for diagnosis of diabetes. Reference: Standards of Medical Care in Diabetes 2016, [place] [employer]. Diabetes Care. 2016.39(Suppl 1). Performed By: #### 5 8410-2 #### [facility] CLIA [id number] [address] [place] [address] [place] Potassium [Moles/Vol] 3.6 mmol/L Low 3.7-5.1 [facility] Comment on above: Order Comment: Marti hankins Type: BLOOD SPECIMEN Ordering Facility: [facility] Address: [address] [place] [address] Performed By: #### 5 8410-2 #### [facility] CLIA [id number] [address] [place] [address] [place] Sodium [Moles/Vol] 124 mmol/L Low 136-144 [facility] Comment on above: Order Comment: Marti hankins Type: BLOOD SPECIMEN Ordering Facility: [facility] Address: [address] [place] [address] Performed By: #### 5 8410-2 #### [facility] CLIA [id number] [address] [place] [address] [place] Urea nitrogen [Mass/Vol] 16 mg/dL Normal 7-21 [facility] Comment on above: Order Comment: Marti hankins Type: BLOOD SPECIMEN Ordering Facility: [facility] Address: [address] [place] [address] Performed By: #### 5 8410-2 #### [facility] CLIA [id number] [address] [place] [address] [place] CBC W Auto Differential pane l (Bld)on 06-23-2025 Basophils (Bld) [#/Vol] 10*3/uL Normal <0.11 [facility] Comment on above: Order Comment: Speci men Type: BLOOD SPECIMENOrdering Facility: [facility] Address: [address] [place] [address] Performed By: #### 5 7021-8 ####[facility] [id number] [address] [place] [facility] Basophils/100 WBC (Bld) 0.2 % Normal [facility] Comment on above: Order Comment: Speci men Type: BLOOD SPECIMENOrdering Facility: [facility] Address: [address] [place] [address] Performed By: #### 5 7021-8 ####[facility] [id number] [address] Differential cell count method Nom (Bld) Auto Normal [facility] Comment on above: Order Comment: Speci men Type: BLOOD SPECIMENOrdering Facility: [facility] Address: [address] [place] [address] Performed By: #### 5 7021-8 ####[facility] [id number] [address] [place] Eosinophils (Bld) [#/Vol] 0.09 10*3/uL Normal <0.46 [facility] Comment on above: Order Comment: Speci men Type: BLOOD SPECIMENOrdering Facility: [facility] Address: [address] [place] [address] Performed By: #### 5 7021-8 ####[facility] [id number] [address] Eosinophils/100 WBC (Bld) 1.1 % Normal [facility] Comment on above: Order Comment: Speci men Type: BLOOD SPECIMENOrdering Facility: [facility] Address: [address] [place] [address] Performed By: #### 5 7021-8 ####[facility] [id number] [place] [address] [place] Erythrocyte distribution width (RBC) [Ratio] 14.0 % Normal 11.5-15.0 [facility] Comment on above: Order Comment: Speci men Type: BLOOD SPECIMENOrdering Facility: [facility] Address: [address] [place] [address] Performed By: #### 5 7021-8 ####[facility] [id number] [place] [address] [place] Hematocrit (Bld) [Volume fraction] 33.8 % Low 36.0-46.0 [facility] Comment on above: Order Comment: Speci men Type: BLOOD SPECIMENOrdering Facility: [facility] Address: [address] [place] [address] Performed By: #### 5 7021-8 ####[facility] [id number] [place] [address] [place] Hemoglobin (Bld) [Mass/Vol] 11.6 g/dL Normal 11.5-15.5 [facility] Comment on above: Order Comment: Speci men Type: BLOOD SPECIMENOrdering Facility: [facility] Address: [address] [place] [address] Performed By: #### 5 7021-8 ####[facility] [id number] [place] [address] [place] Immature granulocytes (Bld) [#/Vol] 10*3/uL Normal <0.10 [facility] Comment on above: Order Comment: Speci men Type: BLOOD SPECIMENOrdering Facility: [facility] Address: [address] [place] [address] Performed By: #### 5 7021-8 ####[facility] [id number] [place] [address] [place] Immature granulocytes/100 WBC (Bld) 0.1 % Normal [facility] Comment on above: Order Comment: Speci men Type: BLOOD SPECIMENOrdering Facility: [facility] Address: [address] [place] [address] Performed By: #### 5 7021-8 ####[facility] [id number] [address] Lymphocytes (Bld) [#/Vol] 1.49 10*3/uL Normal 1.00-4.00 [facility] Comment on above: Order Comment: Speci men Type: BLOOD SPECIMENOrdering Facility: [facility] Address: [address] [place] [address] Performed By: #### 5 7021-8 ####[facility] [id number] [address] Lymphocytes/100 WBC (Bld) 18.2 % Normal [facility] Comment on above: Order Comment: Speci men Type: BLOOD SPECIMENOrdering Facility: [facility] Address: [address] [place] [address] Performed By: #### 5 7021-8 ####[facility] [id number] [address] MCH (RBC) [Entitic mass] 31.6 pg Normal 26.0-34.0 [facility] Comment on above: Order Comment: Speci men Type: BLOOD SPECIMENOrdering Facility: [facility] Address: [address] [place] [address] Performed By: #### 5 7021-8 ####[facility] [id number] [address] MCHC (RBC) [Mass/Vol] 34.3 g/dL Normal 30.5-36.0 [facility] Comment on above: Order Comment: Speci men Type: BLOOD SPECIMENOrdering Facility: [facility] Address: [address] [place] [address] Performed By: #### 5 7021-8 ####[facility] [id number] [address] MCV (RBC) [Entitic vol] 92.1 fL Normal 80.0-100.0 M [facility] Comment on above: Order Comment: Speci men Type: BLOOD SPECIMENOrdering Facility: [facility] Address: [address] [place] [address] Performed By: #### 5 7021-8 ####[facility] [id number] [place] [address] [place] Monocytes (Bld) [#/Vol] 0.92 10*3/uL High <0.87 [facility] Comment on above: Order Comment: Speci men Type: BLOOD SPECIMENOrdering Facility: [facility] Address: [address] [place] [address] Performed By: #### 5 7021-8 ####[facility] [id number] [address] [place] Monocytes/100 WBC (Bld) 11.3 % Normal [facility] Comment on above: Order Comment: Speci men Type: BLOOD SPECIMENOrdering Facility: [facility] Address: [address] [place] [address] Performed By: #### 5 7021-8 ####[facility] [id number] [address] [place] Neutrophils (Bld) [#/Vol] 5.64 10*3/uL Normal 1.45-7.50 [facility] Comment on above: Order Comment: Speci men Type: BLOOD SPECIMENOrdering Facility: [facility] Address: [address] [place] [address] Performed By: #### 5 7021-8 ####[facility] [id number] [address] [place] Neutrophils/100 WBC (Bld) 69.1 % Normal [facility] Comment on above: Order Comment: Speci men Type: BLOOD SPECIMENOrdering Facility: [facility] Address: [address] [place] [address] Performed By: #### 5 7021-8 ####[facility] [id number] [place] [address] [place] Nucleated RBC (Bld) [#/Vol] 10*3/uL Normal <0.01 [facility] Comment on above: Order Comment: Speci men Type: BLOOD SPECIMENOrdering Facility: [facility] Address: [address] [place] [address] Performed By: #### 5 7021-8 ####[facility] [id number] [place] [address] [place] Nucleated RBC/100 WBC (Bld) [Ratio] 0.0 /100 WBC Normal [facility] Comment on above: Order Comment: Speci men Type: BLOOD SPECIMENOrdering Facility: [facility] Address: [address] [place] [address] Performed By: #### 5 7021-8 ####[facility] [id number] [place] [address] [place] Platelet mean volume (Bld) [Entitic vol] 8.9 fL Low 9.0-12.7 [facility] Comment on above: Order Comment: Speci men Type: BLOOD SPECIMENOrdering Facility: [facility] Address: [address] [place] [address] Performed By: #### 5 7021-8 ####[facility] [id number] [address] [place] Platelets (Bld) [#/Vol] 297 10*3/uL Normal 150-400 [facility] Comment on above: Order Comment: Speci men Type: BLOOD SPECIMENOrdering Facility: [facility] Address: [address] [place] [address] Performed By: #### 5 7021-8 ####[facility] [id number] [address] [place] RBC (Bld) [#/Vol] 3.67 10*6/uL Low 3.90-5.20 [facility] Comment on above: Order Comment: Speci men Type: BLOOD SPECIMENOrdering Facility: [facility] Address: [address] [place] [address] Performed By: #### 5 7021-8 ####[facility] [id number] [address] [place] WBC (Bld) [#/Vol] 8.17 10*3/uL Normal 3.70-11.00 [facility] Comment on above: Order Comment: Speci men Type: BLOOD SPECIMENOrdering Facility: [facility] Address: [address] [place] [id number] Performed By: #### 5 7021-8 ####[facility] [id number] [place] [address] [place] ABD/PEL WO IVCONon 2024 CT ABD/PEL WO IVCON * * *Final Report* * * DATE OF EXAM: Jun 23 2025 5:16PM [facility] 0531 - CT ABD/PEL WO IVCON / PROCEDURE REASON: Abdominal abscess/infection suspected * * * * Physician Interpretation * * * * EXAMINATION: CT ABDOMEN AND PELVIS WITHOUT IV CONTRAST CLINICAL HISTORY: Abdominal abscess/infection suspected TECHNIQUE: Non-IV contrast imaging of the abdomen and pelvis was performed using standard technique, scanning from just above the dome of the diaphragm to the symphysis pubis. Unenhanced imaging is limited for the evaluation of some intra-abdominal and pelvic pathology. MQ: CTAPWO_3 Contrast: IV: None : ml of CT Radiation dose: Integrated Dose-length product (DLP) for this visit = 221 mGy*cm. CT Dose Reduction Employed: Automated exposure control (AEC) COMPARISON: None. RESULT: Abdomen / Pelvis: Liver: Unremarkable. Biliary: S/p cholecystectomy. Spleen: No splenomegaly. Pancreas: Unremarkable. Adrenals: No mass. Kidneys: No calculus, hydronephrosis or finding to suggest a cyst or mass in the unenhanced kidney. GI Tract: No bowel dilation. The appendix is not identified but there are no secondary signs of appendicitis. Lymph Nodes: No lymphadenopathy. Mesentery/peritoneum: No ascites. Retroperitoneum: No mass. Vasculature: Arterial atherosclerotic disease without aneurysm. Pelvis: No mass or ascites. Bones/Soft Tissues: Degenerative spondylosis of the lumbar spine. There are areas of spondylolisthesis resulting in Central spinal stenosis. Lower thorax: Cardiomegaly and coronary artery calcifications. The visualized portions of the lung bases are clear. Localizer images: No additional findings. IMPRESSION: Within the limits of a noncontrast examination, there is no acute abnormality. 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: ANSHU Transcribe Date/Time: Jun 23 2025 6:47P Dictated by : DON REYES MD This examination was interpreted and the report reviewed and electronically signed by: DON REYES MD on Jun 23 2025 6:52PM EST [id number] [facility] CT BRAIN WO IVCONon 06-23-20 CT BRAIN WO IVCON * * *Final Report* * * DATE OF EXAM: Jun 23 2025 5:16PM [facility] 0504 - CT BRAIN WO IVCON / PROCEDURE REASON: Rule out head bleed, on Coumadin, week * * * * Physician Interpretation * * * * EXAMINATION: CT BRAIN WO IVCON CLINICAL HISTORY: Weakness TECHNIQUE: Serial axial images without IV contrast were obtained from the vertex to the foramen magnum. MQ: CTBWO_3 CT Radiation dose: Integrated Dose-Length Product (DLP) for this visit = 221 mGy*cm CT Dose Reduction Employed: Automated exposure control (AEC) COMPARISON: 04/27/2025 RESULT: Post-operative change: None. Acute change: No evidence of an acute infarct or other acute parenchymal process. Hemorrhage: No evidence of acute intracranial hemorrhage. ECASS hemorrhagic transformation score: Not Applicable Mass Lesion / Mass Effect: There is no evidence of an intracranial mass or extraaxial fluid collection. No significant mass effect. Chronic change: Scattered patchy foci of low attenuation are present within the supratentorial white matter, a nonspecific finding that most commonly represents mild small vessel disease. 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 Parenchyma: There is no significant volume loss. The brain parenchyma is otherwise within normal limits for age. Ventricles: The ventricles are within normal limits of size and configuration for age. Paranasal sinuses and skull base: Fluid within the left maxillary sinus suggesting sinusitis. The skull base and imaged soft tissues are unremarkable. Localizer images: No additional findings. IMPRESSION: No acute intracranial abnormality. 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: PSCEulalio Transcribe Date/Time: Jun 23 2025 6:43P Dictated by : DON REYES MD This examination was interpreted and the report reviewed and electronically signed by: DON REYES MD on Jun 23 2025 6:46PM EST [id number] [facility] Comprehensive metabolic 2000 panelon 06-23-2025 Albumin [Mass/Vol] 4.1 g/dL Normal 3.9-4.9 [facility] Comment on above: Order Comment: Speci men Type: BLOOD SPECIMEN Ordering Facility: [facility] Address: [address] [place] [address] Performed By: #### 5 8410-2 #### [facility] CLIA [id number] [address] [place] ALP [Catalytic activity/Vol] 69 U/L Normal 34-123 [facility] Comment on above: Order Comment: Speci men Type: BLOOD SPECIMEN Ordering Facility: [facility] Address: [address] [place] [address] Performed By: #### 5 8410-2 #### [facility] CLIA [id number] [address] [place] ALT [Catalytic activity/Vol] 9 U/L Normal 7-38 [facility] Comment on above: Order Comment: Speci men Type: BLOOD SPECIMEN Ordering Facility: [facility] Address: [address] [place] [address] Performed By: #### 5 8410-2 #### [facility] CLIA [id number] [address] [place] Anion gap [Moles/Vol] 8 mmol/L Normal 8-15 [facility] Comment on above: Order Comment: Speci men Type: BLOOD SPECIMEN Ordering Facility: [facility] Address: [address] [place] [address] Performed By: #### 5 8410-2 #### [facility] CLIA [id number] [address] [place] AST [Catalytic activity/Vol] 13 U/L Normal 13-35 [facility] Comment on above: Order Comment: Speci men Type: BLOOD SPECIMEN Ordering Facility: [facility] Address: [address] [place] [address] Performed By: #### 5 8410-2 #### [facility] CLIA [id number] [address] [place] Bilirubin [Mass/Vol] 1.8 mg/dL High 0.2-1.3 [facility] Comment on above: Order Comment: Speci men Type: BLOOD SPECIMEN Ordering Facility: [facility] Address: [address] [place] [address] Performed By: #### 5 8410-2 #### [facility] CLIA [id number] [address] [place] [address] [place] Calcium [Mass/Vol] 9.3 mg/dL Normal 8.5-10.2 [facility] Comment on above: Order Comment: Speci men Type: BLOOD SPECIMEN Ordering Facility: [facility] Address: [address] [place] [address] Performed By: #### 5 8410-2 #### [facility] CLIA [id number] [address] [place] [address] [place] Chloride [Moles/Vol] 89 mmol/L Low 98-107 [facility] Comment on above: Order Comment: Speci men Type: BLOOD SPECIMEN Ordering Facility: [facility] Address: [address] [place] [address] Performed By: #### 5 8410-2 #### [facility] CLIA [id number] [address] [place] [address] [place] CO2 [Moles/Vol] 25 mmol/L Normal 22-30 [facility] Comment on above: Order Comment: Speci men Type: BLOOD SPECIMEN Ordering Facility: [facility] Address: [address] [place] [address] Performed By: #### 5 8410-2 #### [facility] CLIA [id number] [address] [place] [address] [place] Creatinine [Mass/Vol] 0.86 mg/dL Normal 0.58-0.96 [facility] Comment on above: Order Comment: Speci men Type: BLOOD SPECIMEN Ordering Facility: [facility] Address: [address] [place] [address] Performed By: #### 5 8410-2 #### [facility] CLIA [id number] [address] [place] eGFRcr SerPlBld CKD-EPI 2020 65 mL/min/1.73m??? Normal >=60 [facility] Comment on above: Order Comment: Speci men Type: BLOOD SPECIMEN Ordering Facility: [facility] Address: [address] [place] [address] Result Comment: Dolores mated Glomerular Filtration Rate (eGFR) is calculated using the 2020 CKD-EPI creatinine equation. This equation utilizes serum creatinine, sex, and age as parameters. The creatinine assay has traceable calibration to isotope dilution-mass spectrometry. Refer to KDIGO guidelines for clinical interpretation. In patients with unstable renal function, e.g. those with acute kidney injury, the eGFR may not accurately reflect actual GFR. Performed By: #### 5 8410-2 #### [facility] CLIA [id number] [address] [place] [address] [place] Glucose [Mass/Vol] 118 mg/dL High 74-99 [facility] Comment on above: Order Comment: Marti hankins Type: BLOOD SPECIMEN Ordering Facility: [facility] Address: [address] [place], [place] [id number] Result Comment: The [place] [employer] (ADA) provides guidance for cutoff values for fasting glucose and random glucose. The ADA defines fasting as no caloric intake for at least 8 hours. Fasting plasma glucose results between 100 to 125 mg/dL indicate increased risk for diabetes (prediabetes). Fasting plasma glucose results greater than or equal to 126 mg/dL meet the criteria for diagnosis of diabetes. In the absence of unequivocal hyperglycemia, results should be confirmed by repeat testing. In a patient with classic symptoms of hyperglycemia or hyperglycemic crisis, random plasma glucose results greater than or equal to 200 mg/dL meet the criteria for diagnosis of diabetes. Reference: Standards of Medical Care in Diabetes 2016, [place] [employer]. Diabetes Care. 2016.39(Suppl 1). Performed By: #### 5 8410-2 #### [facility] CLIA [id number] [address] [place] [address] [place] Potassium [Moles/Vol] 3.6 mmol/L Low 3.7-5.1 [facility] Comment on above: Order Comment: Marti hankins Type: BLOOD SPECIMEN Ordering Facility: [facility] Address: [address] [place] [address] Performed By: #### 5 8410-2 #### [facility] CLIA [id number] [address] [place] [address] [place] Protein [Mass/Vol] 7.2 g/dL Normal 6.3-8.0 [facility] Comment on above: Order Comment: Speci men Type: BLOOD SPECIMEN Ordering Facility: [facility] Address: [address] [place] [address] Performed By: #### 5 8410-2 #### [facility] CLIA [id number] [address] Sodium [Moles/Vol] 122 mmol/L Low 136-144 [facility] Comment on above: Order Comment: Speci men Type: BLOOD SPECIMEN Ordering Facility: [facility] Address: [address] [place] [address] Performed By: #### 5 8410-2 #### [facility] CLIA [id number] [address] [place] Urea nitrogen [Mass/Vol] 17 mg/dL Normal 7-21 [facility] Comment on above: Order Comment: Speci men Type: BLOOD SPECIMEN Ordering Facility: [facility] Address: [address] [place] [address] Performed By: #### 5 8410-2 #### [facility] CLIA [id number] [address] ED NOTEon 06-23-2025 ED NOTE HNO ID: [id number] Author: TARAH CORBETT RN Service: Nursing Author Type: Registered Nurse Type: ED Notes Filed: 06/23/2025 19:51 Note Text: Second HU called to [address] [facility] Nurse [facility] ED NOTE HNO ID: [id number] Author: SONAL PABON RN Service: Behavioral Health Author Type: Registered Nurse Type: ED Notes Filed: 06/23/2025 19:33 Note Text: Report to tarah boateng [facility] ED NOTE HNO ID: [id number] Author: TIERA RÍOS RN Service: ? Author Type: Registered Nurse Type: ED Notes Filed: 06/23/2025 14:20 Note Text: Bed: ED-10 Expected date: Expected time: Means of arrival: Comments: [facility] ED PROV NOTEon 06-23-2025 ED PROV NOTE HNO ID: [id number] Author: ALEKS TAMEZ MD Service: Emergency Medicine Author Type: Physician Type: ED Provider Notes Filed: 06/23/2025 19:13 Note Text: ED Provider Note Patient Name: Helen Lieberman : 1935 SERVICE DATE: 06/23/25 History Patient presents with: Weakness: All over. From home. Lives w grandson. Still eating and drinking but just less. Has nose plugged since . Dizziness: Sts the dizziness is main problem Nausea Ms. Lieberman is an 89-year-old female presenting today 5 days after she had some nasal balloon placed in our ED because of nasal bleeding, tolerated it well, but for the last 4 days has become progressively weaker and weaker to the point she is unable to get up and walk around today. She was brought in by ambulance. She has no room spinning sensation or feeling of unsteadiness on her feet, just eating and drinking less and woozy. She had 3 nosebleeds in the week and a half leading into getting her nose with a nose balloon, and has an ENT appointment in a few days. PAST MEDICAL HISTORY Diagnosis Date Atrial fibrillation (HCC) 07/29/2021 Essential hypertension Gallstone pancreatitis (HCC) Pancreatitis (HCC) PAST SURGICAL HISTORY Procedure Laterality Date SECTION HX x4 FOOT SURGERY HX right side HERNIA REPAIR HX KNEE SURGERY HX Right REMOVAL GALLBLADDER FAMILY HISTORY Problem Relation Age of Onset Stroke Mother other (tia) Sister Diabetes Sister Dementia Sister Lung Cancer Sister Stroke Sister Hypertension Sister Heart Brother Social History[1] ALLERGIES Allergen Reactions Amlodipine Other: See Comments Very intense leg cramps Penicillins Unknown Sulfa (Sulfonamide * Unknown Tetracyclines Unknown Review of Systems Constitutional: Positive for appetite change and fatigue. Negative for chills and fever. HENT: Positive for nosebleeds. Negative for ear pain, rhinorrhea and sore throat. Respiratory: Negative for cough and shortness of breath. Cardiovascular: Negative for chest pain and leg swelling. Gastrointestinal: Negative for abdominal pain, diarrhea, nausea and vomiting. Genitourinary: Negative for dysuria, flank pain, frequency and hematuria. Musculoskeletal: Negative for back pain. Skin: Negative for rash. Neurological: Positive for weakness and light-headedness. Negative for speech difficulty, numbness and headaches. Psychiatric/Behavioral: Negative for hallucinations and suicidal ideas. Physical Exam Vitals BP Pulse Temp Temp src Resp SpO2 Weight Height 06/23/25 1423 06/23/25 1423 06/23/25 1423 06/23/25 1422 06/23/25 1423 06/23/25 1423 06/23/25 1423 06/23/25 1423 144/66 70 36.9 ?C (98.4 ?F) Oral 16 96 % 54 kg (119 lb 0.8 oz) 1.575 m (5' 2) Physical Exam Vitals and nursing note reviewed. Constitutional: General: She is not in acute distress. Appearance: She is well-developed. HENT: Head: Normocephalic and atraumatic. Nose: Comments: Nasal balloon in place left nare, only scant air still in the balloon, deflated, removed without difficulty, no further bleeding or traumatic injury Eyes: Pupils: Pupils are equal, round, and reactive to light. Neck: Trachea: No tracheal deviation. Cardiovascular: Rate and Rhythm: Normal rate. Heart sounds: No murmur heard. No friction rub. No gallop. Pulmonary: Effort: Pulmonary effort is normal. No respiratory distress. Breath sounds: Normal breath sounds. No wheezing or rales. Abdominal: General: Bowel sounds are normal. There is no distension. Palpations: Abdomen is soft. Tenderness: There is no abdominal tenderness. There is no guarding or rebound. Comments: No tenderness Musculoskeletal: General: Normal range of motion. Cervical back: Normal range of motion and neck supple. Lymphadenopathy: Cervical: No cervical adenopathy. Skin: General: Skin is warm and dry. Coloration: Skin is pale. Findings: No erythema. Neurological: Mental Status: She is alert and oriented to person, place, and time. Cranial Nerves: No cranial nerve deficit. Motor: No abnormal muscle tone. Comments: Alert and oriented times self and situation and year and month and place, no aphasia or dysarthria, no unilateral weakness or numbness Psychiatric: Behavior: Behavior normal. Thought Content: Thought content normal. Judgment: Judgment normal. Diagnostic Testing ED Labs Ordered and Reviewed - No data to display Results for orders placed or performed during the hospital encounter of 06/23/25 EKG Impression ATRIAL FIBRILLATION MINIMAL VOLTAGE CRITERIA FOR LVH, MAY BE NORMAL VARIANT ( Frank product ) NONSPECIFIC T WAVE ABNORMALITY ABNORMAL ECG When compared with selected ECG of 09-Aug-2024 16:46, ATRIAL FIBRILLATION HAS REPLACED SINUS RHYTHM NONSPECIFIC T WAVE ABNORMALITY NOW EVIDENT IN LATERAL LEADS no STEMI Confirmed by ALEKS TAMEZ MD ([id number]) on 06/23/2025 2:39:39 PM P (more content not included)... Normal [facility] EKGon 06-23-2025 Electrocardiogram Ventricular Rate : 6 7 BPM QRS Duration : 82 ms Q-T Interval : 434 ms QTC Calculation(Bazett) : 458 ms Calculated R Mayer : 30 degrees Calculated T Mayer : 115 degrees ATRIAL FIBRILLATION MINIMAL VOLTAGE CRITERIA FOR LVH, MAY BE NORMAL VARIANT ( Frank product ) NONSPECIFIC T WAVE ABNORMALITY ABNORMAL ECG When compared with selected ECG of 09-Aug-2024 16:46, ATRIAL FIBRILLATION HAS REPLACED SINUS RHYTHM NONSPECIFIC T WAVE ABNORMALITY NOW EVIDENT IN LATERAL LEADS no STEMI Confirmed by ALEKS TAMEZ MD () on 06/23/2025 2:39:39 PM NAME : HELEN LIEBERMAN PID : [id number] : 1935 Gender : Female Race : ORD : Procedure Date : Jun 23 2025 14:32:47 Edit Date : Jun 23 2025 14:39:44 Diagnosis: ATRIAL FIBRILLATION MINIMAL VOLTAGE CRITERIA FOR LVH, MAY BE NORMAL VARIANT ( Frank product ) NONSPECIFIC T WAVE ABNORMALITY ABNORMAL ECG When compared with selected ECG of 09-Aug-2024 16:46, ATRIAL FIBRILLATION HAS REPLACED SINUS RHYTHM NONSPECIFIC T WAVE ABNORMALITY NOW EVIDENT IN LATERAL LEADS no STEMI Confirmed by ALEKS TAMEZ MD () on 06/23/2025 2:39:39 PM Test Reason : Location : 1 : ER 10 Overread By : ALEKS TAMEZ MD Edited By : ALEKS TAMEZ MD Referred By : , Acquired by : Surinder GASTELUM [facility] HIGH SENSITIVITY TROPONIN T (INITIAL)on 06-23-2025 Troponin T.cardiac High sensitivity method [Mass/Vol] 22 ng/L High [address] Comment on above: Order Comment: Speci men Type: BLOOD SPECIMEN Ordering Facility: [facility] Address: [address] [place] [address] Performed By: #### 5 8410-2 #### [facility] CLIA [id number] [address] [place] [address] [place] HIGH SENSITIVITY TROPONIN T (SECOND)on 06-23-2025 Troponin T.cardiac High sensitivity method [Mass/Vol] 23 ng/L High [address] Comment on above: Order Comment: Shanikakerrie hankins Type: BLOOD SPECIMEN Ordering Facility: [facility] Address: [address] [place] [id number] Performed By: #### L [id number] #### [facility] CLIA [id number] [address] HIGH SENSITIVITY TROPONIN T (THIRD) 3 HRS AFTER INITIALon 06-23-2025 Troponin T.cardiac High sensitivity method [Mass/Vol] 23 ng/L High <12 [facility] Comment on above: Order Comment: Shanikakerrie hankins Type: BLOOD SPECIMENOrdering Facility: [facility] Address: [address] [place] [id number] Performed By: #### L [id number] ####[facility] [id number] [place] [address] [facility] HISTORY PHYSICALon HISTORY PHYSICAL HNO ID: [id number] Author: NIKKI RIOJAS APRN.CNP Service: Hospital Medicine Author Type: Nurse Practitioner Type: H&P Filed: 06/23/2025 19:45 Note Text: Attestation signed by Basilio Doyle DO at 06/26/2025 9:16 PM Attending Note I have not personally performed a face to face assessment of the patient. I have reviewed the MARTHA note. Signature: Basilio Doyle Date: 06/26/2025 Time: 9:16 PM DEPARTMENT OF HOSPITAL MEDICINE HISTORY AND PHYSICAL EXAM SERVICE DATE: 06/23/2025 SERVICE TIME: 7:45 PM Primary Care Physician: Tanya Lozano APRN.[employer] NIGHT AND WEEKEND COVERAGE: [facility]: Days: [phone], please page attending physician. Nights: [phone], please page [place] [facility] Night coverage pager [phone]. Subjective CHIEF COMPLAINT: weakness HPI: This is a 89 year old female with a PMH significant for HTN, HFpEF, AFIB (on Coumadin), hx TIA, and GERD and hyponatremia/SIADH who presents with weakness and fatigue. Reports decreased intake and weakness over the past several days. States she also required nasal balloon recently for recurrent epistaxis. Is on warfarin for Afib. States he has history of hyponatremia. Has been compliant with home medications. Sodium 122 today with potassium 3.6 and chloride of 89. Received NS bolus. UA showed 1+ leuk esterase and rare bacteria. No urinary symptoms reported. Received dose rocephin. Admitted under hospital medicine service. The following problems are present on admission at this time: Heart failure Cerebrovascular disease Hypertension Hypothyroidism Continue current outpatient treatment plan and current medications for these conditions, except where otherwise noted. PAST MEDICAL HISTORY Diagnosis Date Atrial fibrillation (HCC) 07/29/2021 Essential hypertension Gallstone pancreatitis (HCC) Pancreatitis (HCC) PAST SURGICAL HISTORY Procedure Laterality Date SECTION HX x4 FOOT SURGERY HX right side HERNIA REPAIR HX KNEE SURGERY HX Right REMOVAL GALLBLADDER FAMILY HISTORY Problem Relation Age of Onset Stroke Mother other (tia) Sister Diabetes Sister Dementia Sister Lung Cancer Sister Stroke Sister Hypertension Sister Heart Brother SOCIAL HISTORY[1] PRIOR TO ADMISSION MEDICATIONS: Prior to Admission Medications Prescriptions Last Dose Informant Patient Reported? Taking? Cholecalciferol, Vitamin D3, 50 mcg (2,000 unit) cap Yes No Sig: Take by mouth once daily. Oxymetazoline HCl (AFRIN, OXYMETAZOLINE,) 0.05 % mist No No Sig: Use 1 spray in the nose as needed (as needed with active nosebleed). acetaminophen (TYLENOL) 500 mg tablet No No Sig: Take 2 tablets by mouth every 8 hours. carvedilol (COREG) 25 mg tablet Yes No Si tablet with food Orally Twice a day for 90 days chlorthalidone (HYGROTON) 25 mg tablet No No Sig: Take 1 tablet by mouth once daily. levothyroxine (SYNTHROID) 75 mcg tablet No No Sig: Take 1 tablet by mouth daily before breakfast. losartan (COZAAR) 100 mg tablet No No Sig: Take 1 tablet by mouth once daily. magnesium oxide (MAG-OX) 400 mg (241.3 mg magnesium) tablet No No Sig: Take 1 tablet by mouth once daily. pantoprazole DR (PROTONIX) 40 mg tablet No No Sig: Take 1 tablet by mouth once daily. polyethylene glycol 3350 (MIRALAX, GLYCOLAX) 17 gram packet Yes No Sig: Take 17 g by mouth once daily. Dissolve dose in 4 - 8 ounces of liquid and take as directed. sodium chloride 0.65 % nasal spray No No Sig: Use 2 sprays in the nose five times a day. sodium chloride-aloe vera (AYR SALINE) topical nasal gel No No Si application by INTRANASAL route three times a day. warfarin (COUMADIN) 2 mg tablet No No Sig: Take 1 tablet by mouth daily as directed. warfarin (COUMADIN) 3 mg tablet No No Sig: Take 1 tablet by mouth once daily. Facility-Administered Medications: None ALLERGIES Allergen Reactions Amlodipine Other: See Comments Very intense leg cramps Penicillins Unknown Sulfa (Sulfonamide * Unknown Tetracyclines Unknown REVIEW OF SYSTEM: 12 point ROS negative unless indicated below or in the HPI Objective PHYSICAL EXAM: BP 119/61 Pulse 74 Temp (Src) 98.4 (Oral) Resp 24 Ht 5' 2 (1.58m) Wt 119 lb 0.8 oz (54.0kg) SpO2 96% BMI 21.77 kg/(m2). O2 Therapy: Room Air Physical Exam Performed: Physical Exam Constitutional: General: She is not in acute distress. Appearance: She is normal weight. She is not toxic-appearing. HENT: Head: Normocephalic and atraumatic. Nose: Nose normal. Mouth/Throat: Pharynx: Oropharynx is clear. Cardiovascular: Rate and Rhythm: Normal rate and regular rhythm. Pulses: Normal pulses. Heart sounds: Normal heart sounds. No murmur heard. Pulmonary: Effort: Pulmonary effort is normal. No respirato (more content not included)... Normal [facility] Magnesium SerPl-mCncon 06-23 Magnesium [Mass/Vol] 1.8 mg/dL Normal 1.7-2.3 [facility] Comment on above: Order Comment: Speci men Type: BLOOD SPECIMEN Ordering Facility: [facility] Address: [address] [place] [address] Performed By: #### 5 8410-2 #### [facility] CLIA [id number] [address] [place] [address] [place] [facility] Natriuretic peptide.B prohormone N-Terminal [Mass/Vol] 1644 pg/mL High <450 [facility] Comment on above: Order Comment: Shanikai cr Type: BLOOD SPECIMEN Ordering Facility: [facility] Address: [address] [place] [address] Performed By: #### 5 8410-2 #### [facility] CLIA [id number] [address] [place] [address] [place] Osmolality SerPlon 5 Osmolality [Osmolality] 267 mosm/kg Low 275-300 [facility] Comment on above: Order Comment: Shanikai cr Type: BLOOD SPECIMEN Ordering Facility: [facility] Address: [address] [place] [address] Performed By: #### 5 8410-2 #### [facility] CLIA [id number] [address] [place] PT panel Coag (PPP)on 2024 INR Coag (PPP) [Relative time] 2.0 {INR} High 0.9-1.3 [facility] Comment on above: Order Comment: Marti hankins Type: BLOOD SPECIMENOrdering Facility: [facility] Address: [address] [place] [address] Result Comment: Mirna min K Antagonist (VKA) Therapeutic Range: INR 2 to 3 (Target INR of 2.5) Note: For patients treated with VKA drugs, such as warfarin, the [place] [employer] 2012 Guideline recommends a therapeutic INR range of 2 to 3 (target INR of 2.5). This recommendation includes high-risk patients with antiphospholipid syndrome with previous arterial or venous thromboembolism, current-generation mechanical or bioprosthetic aortic heart valve replacement. Note: Patients with mechanical aortic valve replacement and additional risk factors for thromboembolic events (atrial fibrillation, previous thromboembolism, LV dysfunction, hypercoagulable conditions) or an older generation mechanical AVR (i.e., ball in-Cage) or any mechanical MVR should have a INR therapeutic range of 2.5 to 3.5 (target INR of 3). Kvng GH, et al. Chest 2012, 141:7S-47S Jayce RA, et al. [facility] 2017, 70: 252-289 Performed By: #### 3 4528-0, 35225-0 ####[facility] [id number] [place] [address] [place] PT Coag (PPP) [Time] 21.1 s High 9.7-13.0 [facility] Comment on above: Order Comment: Speci men Type: BLOOD SPECIMENOrdering Facility: [facility] Address: [address] [place] [address] Performed By: #### 3 4528-0, 05240-4 ####[facility] [id number] [address] [place] Urate SerPl-mCncon Urate [Mass/Vol] 4.1 mg/dL Normal 2.5-6.6 [facility] [facility] Comment on above: Order Comment: Speci men Type: BLOOD SPECIMEN Ordering Facility: [facility] Address: [address] [place] [address] Performed By: #### 5 8410-2 #### [facility] CLIA [id number] [address] [place] Urinalysis complete panel (U )on 06-23-2025 Bacteria LM.HPF (Urine sed) [#/Area] Rare Abnormal None Seen [facility] Comment on above: Order Comment: Speci men Type: BLOOD SPECIMEN Ordering Facility: [facility] Address: [address] [place] [address] Performed By: #### 5 8410-2 #### [facility] CLIA [id number] [address] [place] Bilirubin Ql (U) Negative Normal Negative [facility] Comment on above: Order Comment: Speci men Type: BLOOD SPECIMEN Ordering Facility: [facility] Address: [address] [place] [address] Performed By: #### 5 8410-2 #### [facility] CLIA [id number] [address] Clarity (Unsp spec) Clear Normal Clear [facility] Comment on above: Order Comment: Speci men Type: BLOOD SPECIMEN Ordering Facility: [facility] Address: [address] [place] [address] Performed By: #### 5 8410-2 #### [facility] CLIA [id number] [address] [place] Color (U) Yellow Normal Yellow [facility] Comment on above: Order Comment: Speci men Type: BLOOD SPECIMEN Ordering Facility: [facility] Address: [address] [place] [address] Performed By: #### 5 8410-2 #### [facility] CLIA [id number] [address] Epithelial cells LM.HPF (Urine sed) [#/Area] Few Normal [facility] Comment on above: Order Comment: Speci men Type: BLOOD SPECIMEN Ordering Facility: [facility] Address: [address] [place] [address] Performed By: #### 5 8410-2 #### [facility] CLIA [id number] [address] Glucose Test strip (U) [Mass/Vol] Negative Normal Negative [facility] Comment on above: Order Comment: Speci men Type: BLOOD SPECIMEN Ordering Facility: [facility] Address: [address] [place] [address] Performed By: #### 5 8410-2 #### [facility] CLIA [id number] [address] [place] Hemoglobin Ql (U) Negative Normal Negative [facility] Comment on above: Order Comment: Speci men Type: BLOOD SPECIMEN Ordering Facility: [facility] Address: [address] [place] [address] Performed By: #### 5 8410-2 #### [facility] CLIA [id number] [address] [place] Ketones Ql (U) Negative Normal Negative [facility] Comment on above: Order Comment: Speci men Type: BLOOD SPECIMEN Ordering Facility: [facility] Address: [address] [place] [address] Performed By: #### 5 8410-2 #### [facility] CLIA [id number] [address] Leukocyte esterase Test strip Ql (U) 1+ Abnormal Negative [facility] Comment on above: Order Comment: Speci men Type: BLOOD SPECIMEN Ordering Facility: [facility] Address: [address] [place] [address] Performed By: #### 5 8410-2 #### [facility] CLIA [id number] [address] Nitrite Ql (U) Negative Normal Negative [facility] Comment on above: Order Comment: Speci men Type: BLOOD SPECIMEN Ordering Facility: [facility] Address: [address] [place] [address] Performed By: #### 5 8410-2 #### [facility] CLIA [id number] [address] [place] [address] [place] pH (U) 7.0 [pH] Normal 5.0-8.0 [facility] Comment on above: Order Comment: Speci men Type: BLOOD SPECIMEN Ordering Facility: [facility] Address: [address] [place] [address] Performed By: #### 5 8410-2 #### [facility] CLIA [id number] [address] [place] [address] [place] Protein (U) [Mass/Vol] Negative Normal Negative [facility] Comment on above: Order Comment: Speci men Type: BLOOD SPECIMEN Ordering Facility: [facility] Address: [address] [place] [address] Performed By: #### 5 8410-2 #### [facility] CLIA [id number] [address] [place] RBC LM.HPF (Urine sed) [#/Area] 0-3 /HPF Normal 0-3 /HPF [facility] Comment on above: Order Comment: Speci men Type: BLOOD SPECIMEN Ordering Facility: [facility] Address: [address] [place] [address] Performed By: #### 5 8410-2 #### [facility] CLIA [id number] [address] Specific gravity (U) [Rel density] 1.010 Normal 1.005-1.030 [facility] Comment on above: Order Comment: Speci men Type: BLOOD SPECIMEN Ordering Facility: [facility] Address: [address] [place] [address] Performed By: #### 5 8410-2 #### [facility] CLIA [id number] [address] [place] Urobilinogen Ql (U) 2.0 EU/dL Abnormal 0.2-1.0 EU/dL [facility] Comment on above: Order Comment: Speci men Type: BLOOD SPECIMEN Ordering Facility: [facility] Address: [address] [place] [address] Performed By: #### 5 8410-2 #### [facility] CLIA [id number] [address] [place] WBC LM.HPF (Urine sed) [#/Area] 0-5 /HPF Normal 0-5 /HPF [facility] Comment on above: Order Comment: Speci men Type: BLOOD SPECIMEN Ordering Facility: [facility] Address: [address] [place] [address] Performed By: #### 5 8410-2 #### [facility] CLIA [id number] [address] [place] XR CHEST 1V FRONTAL PORTon 0 06-23-2025 XR CHEST 1V FRONTAL PORT * * *Final Report* * * DATE OF EXAM: Jun 23 2025 2:53PM MDX [id number] - XR CHEST 1V FRONTAL PORT / PROCEDURE REASON: Fatigue and malaise * * * * Physician Interpretation * * * * EXAMINATION: CHEST RADIOGRAPH (PORTABLE SINGLE VIEW AP) Exam Date/Time: 06/23/2025 2:53 PM CLINICAL HISTORY: Fatigue and malaise MQ: XCPR_5 Comparison: Chest radiograph 08/09/2024 and priors RESULT: Lines, tubes, and devices: None. Lungs and pleura: No consolidation, pleural effusion or pulmonary edema. No suspicious pulmonary nodules or masses. No pneumothorax Cardiomediastinal silhouette: Stable cardiomediastinal silhouette. Significant atherosclerotic calcifications of the aorta. Other: Diffuse osseous demineralization. Degenerative changes of the shoulders. . IMPRESSION: No acute findings in the chest. No significant interval changes. 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: ANSHU Transcribe Date/Time: Jun 23 2025 3:23P Dictated by : TAI ATWOOD MD This examination was interpreted and the report reviewed and electronically signed by: TAI ATWOOD MD on Jun 23 2025 3:25PM EST [id number] Normal [facility] aPTT PPPon 06-23-2025 aPTT Coag (PPP) [Time] 34.2 s High 23.0-32.4 [facility] Comment on above: Order Comment: Speci men Type: BLOOD SPECIMENOrdering Facility: [facility] Address: [address] [place] [address] Performed By: #### 3 4528-0, 63609-9 ####[facility] [id number] [address] STATES OF [facility] CNPNon 06-21-2025 CNPN Telephone (OTOLTW) HELEN LIEBERMAN ([id number]) 1935 F Date Time Provider Department 06/21/25 NIGEL IRIZARRY OTLINDA During your visit today, we recorded the following information about you: Diana Sagastume 06/21/2025 12:34 PM Signed Helen is calling Nigel Irizarry PA-C today to request ED Follow Up Appointment. Patient was seen in ED on 06/20/25 for nose bleeds. Patient states she has a balloon in her nose. She states she was advised to follow up with provider on 06/24/25. Patient has been identified by name and birthdate. Duration of symptoms: N/A Person calling: self Call patient at: at home [phone] (home) [phone] (cell) Was an appointment scheduled: Yes: Date/Time: 07/22/25 Closing statement: Results or non-symptom based questions: Thank you for calling [facility], your call will be returned within the next business day. Torie Magana MA 06/21/2025 1:10 PM Signed Spoke with Pt was able to get her in to be seen on 06/26 with Nigel. Torie Rivera MA Allergies As of Date: 06/21/2025 Noted Allergy Reaction AMLODIPINE 08/11/2024 14 - Other: See Comments Comments: Very intense leg cramps PENICILLINS 07/24/2021 16 - Unknown SULFA (SULFONAMIDE ANTIBIOTICS) 07/24/2021 16 - Unknown TETRACYCLINES 07/24/2021 16 - Unknown Date Reviewed: 06/20/2025 Reviewed by: Daniel Sanchez RN - Fully Assessed Reason for Visit: Appointment [186] Prescriptions as of 06/21/2025 - azithromycin (ZITHROMAX) 250 mg tablet Take 1 tablet by mouth once daily. - chlorthalidone (HYGROTON) 25 mg tablet Take 1 tablet by mouth once daily. - losartan (COZAAR) 100 mg tablet Take 1 tablet by mouth once daily. - sodium chloride 0.65 % nasal spray Use 2 sprays in the nose five times a day. - sodium chloride-aloe vera (AYR SALINE) topical nasal gel 1 application by INTRANASAL route three times a day. - Oxymetazoline HCl (AFRIN, OXYMETAZOLINE,) 0.05 % mist Use 1 spray in the nose as needed (as needed with active nosebleed). - warfarin (COUMADIN) 2 mg tablet Take 1 tablet by mouth daily as directed. - levothyroxine (SYNTHROID) 75 mcg tablet Take 1 tablet by mouth daily before breakfast. - carvedilol (COREG) 25 mg tablet 1 tablet with food Orally Twice a day for 90 days - pantoprazole DR (PROTONIX) 40 mg tablet Take 1 tablet by mouth once daily. - warfarin (COUMADIN) 3 mg tablet Take 1 tablet by mouth once daily. - acetaminophen (TYLENOL) 500 mg tablet Take 2 tablets by mouth every 8 hours. - magnesium oxide (MAG-OX) 400 mg (241.3 mg magnesium) tablet Take 1 tablet by mouth once daily. - polyethylene glycol 3350 (MIRALAX, GLYCOLAX) 17 gram packet Take 17 g by mouth once daily. Dissolve dose in 4 - 8 ounces of liquid and take as directed. - Cholecalciferol, Vitamin D3, 50 mcg (2,000 unit) cap Take by mouth once daily. 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] 08/25/2021 Syncope [R55] 09/07/2023 09/08/2023 Syncope and collapse [R55] 09/07/2023 09/08/2023 Chronic diastolic CHF (congestive heart failure*09/08/2023 Hx-TIA (transient ischemic attack) [Z86.73] 08/09/2024 Hyponatremia [E87.1] 08/09/2024 Elevated troponin level [R79.89] 08/09/2024 Fall at home, sequela [W19.XXXS, Y92.009] 08/09/2024 Left hip pain [M25.552] 08/09/2024 Hematoma of left thigh [S70.12XA] 08/09/2024 Hamstring injury, left, initial encounter [S76.*08/10/2024 Encounter Status:Closed by TORIE RIVERA on 06/21/25 Normal [facility] CBC W Auto Differential pane l (Bld)on 06-20-2025 Basophils (Bld) [#/Vol] 0.05 10*3/uL Normal <0.11 [facility] Comment on above: Order Comment: Speci men Type: BLOOD SPECIMENOrdering Facility: [facility] Address: [address] [place] [address] Performed By: #### 5 7021-8 ####[facility] [id number] [place] [address] [place] Basophils/100 WBC (Bld) 0.6 % Normal [facility] Comment on above: Order Comment: Speci men Type: BLOOD SPECIMENOrdering Facility: [facility] Address: [address] [place] [address] Performed By: #### 5 7021-8 ####[facility] [id number] [place] [address] [place] Differential cell count method Nom (Bld) Auto Normal [facility] Comment on above: Order Comment: Speci men Type: BLOOD SPECIMENOrdering Facility: [facility] Address: [address] [place] [address] Performed By: #### 5 7021-8 ####[facility] [id number] [place] [address] [place] Eosinophils (Bld) [#/Vol] 0.12 10*3/uL Normal <0.46 [facility] Comment on above: Order Comment: Speci men Type: BLOOD SPECIMENOrdering Facility: [facility] Address: [address] [place] [address] Performed By: #### 5 7021-8 ####[facility] [id number] [address] [place] Eosinophils/100 WBC (Bld) 1.5 % Normal [facility] Comment on above: Order Comment: Speci men Type: BLOOD SPECIMENOrdering Facility: [facility] Address: [address] [place] [address] Performed By: #### 5 7021-8 ####[facility] [id number] [place] [address] [place] Erythrocyte distribution width (RBC) [Ratio] 14.8 % Normal 11.5-15.0 [facility] Comment on above: Order Comment: Speci men Type: BLOOD SPECIMENOrdering Facility: [facility] Address: [address] [place] [address] Performed By: #### 5 7021-8 ####[facility] [id number] [address] [place] Hematocrit (Bld) [Volume fraction] 38.8 % Normal 36.0-46.0 [facility] Comment on above: Order Comment: Speci men Type: BLOOD SPECIMENOrdering Facility: [facility] Address: [address] [place] [address] Performed By: #### 5 7021-8 ####[facility] [id number] [address] [place] Hemoglobin (Bld) [Mass/Vol] 12.5 g/dL Normal 11.5-15.5 [facility] Comment on above: Order Comment: Speci men Type: BLOOD SPECIMENOrdering Facility: [facility] Address: [address] [place] [address] Performed By: #### 5 7021-8 ####[facility] [id number] [address] [place] Immature granulocytes (Bld) [#/Vol] 10*3/uL Normal <0.10 [facility] Comment on above: Order Comment: Speci men Type: BLOOD SPECIMENOrdering Facility: [facility] Address: [address] [place] [address] Performed By: #### 5 7021-8 ####[facility] [id number] [address] Immature granulocytes/100 WBC (Bld) 0.3 % Normal [facility] Comment on above: Order Comment: Speci men Type: BLOOD SPECIMENOrdering Facility: [facility] Address: [address] [place] [address] Performed By: #### 5 7021-8 ####[facility] [id number] [address] [place] Lymphocytes (Bld) [#/Vol] 1.38 10*3/uL Normal 1.00-4.00 [facility] Comment on above: Order Comment: Speci men Type: BLOOD SPECIMENOrdering Facility: [facility] Address: [address] [place] [address] Performed By: #### 5 7021-8 ####[facility] [id number] [address] Lymphocytes/100 WBC (Bld) 17.7 % Normal [facility] Comment on above: Order Comment: Speci men Type: BLOOD SPECIMENOrdering Facility: [facility] Address: [address] [place] [address] Performed By: #### 5 7021-8 ####[facility] [id number] [address] MCH (RBC) [Entitic mass] 31.3 pg Normal 26.0-34.0 [facility] Comment on above: Order Comment: Speci men Type: BLOOD SPECIMENOrdering Facility: [facility] Address: [address] [place] [address] Performed By: #### 5 7021-8 ####[facility] [id number] [address] STATES [facility] MCHC (RBC) [Mass/Vol] 32.2 g/dL Normal 30.5-36.0 [facility] Comment on above: Order Comment: Speci men Type: BLOOD SPECIMENOrdering Facility: [facility] Address: [address] [place] [address] Performed By: #### 5 7021-8 ####[facility] [id number] [address] MCV (RBC) [Entitic vol] 97.0 fL Normal 80.0-100.0 [facility] Comment on above: Order Comment: Speci men Type: BLOOD SPECIMENOrdering Facility: [facility] Address: [address] [place] [address] Performed By: #### 5 7021-8 ####[facility] [id number] [address] Monocytes (Bld) [#/Vol] 0.69 10*3/uL Normal <0.87 [facility] Comment on above: Order Comment: Speci men Type: BLOOD SPECIMENOrdering Facility: [facility] Address: [address] [place] [address] Performed By: #### 5 7021-8 ####[facility] [id number] [place] [address] [place] Monocytes/100 WBC (Bld) 8.9 % Normal [facility] Comment on above: Order Comment: Speci men Type: BLOOD SPECIMENOrdering Facility: [facility] Address: [address] [place] [address] Performed By: #### 5 7021-8 ####[facility] [id number] [place] [address] [place] Neutrophils (Bld) [#/Vol] 5.53 10*3/uL Normal 1.45-7.50 [facility] Comment on above: Order Comment: Speci men Type: BLOOD SPECIMENOrdering Facility: [facility] Address: [address] [place] [address] Performed By: #### 5 7021-8 ####[facility] [id number] [place] [address] [place] Neutrophils/100 WBC (Bld) 71.0 % Normal [facility] Comment on above: Order Comment: Speci men Type: BLOOD SPECIMENOrdering Facility: [facility] Address: [address] [place] [address] Performed By: #### 5 7021-8 ####[facility] [id number] [place] [address] [place] Nucleated RBC (Bld) [#/Vol] 10*3/uL Normal <0.01 [facility] Comment on above: Order Comment: Speci men Type: BLOOD SPECIMENOrdering Facility: [facility] Address: [address] [place] [address] Performed By: #### 5 7021-8 ####[facility] [id number] [place] [address] [place] Nucleated RBC/100 WBC (Bld) [Ratio] 0.0 /100 WBC Normal [facility] Comment on above: Order Comment: Speci men Type: BLOOD SPECIMENOrdering Facility: [facility] Address: [address] [place] [address] Performed By: #### 5 7021-8 ####[facility] [id number] [place] [id number] [place] Platelet mean volume (Bld) [Entitic vol] 8.8 fL Low 9.0-12.7 [facility] Comment on above: Order Comment: Speci men Type: BLOOD SPECIMENOrdering Facility: [facility] Address: [facility] [place] [address] Performed By: #### 5 7021-8 ####[facility] [id number] [place] [id number] [place] Platelets (Bld) [#/Vol] 286 10*3/uL Normal 150-400 [facility] Comment on above: Order Comment: Speci men Type: BLOOD SPECIMENOrdering Facility: [facility] Address: [address] [place], [place] [address] [address] Performed By: #### 5 7021-8 ####[facility] [id number] [address] [place] RBC (Bld) [#/Vol] 4.00 10*6/uL Normal 3.90-5.20 [facility] Comment on above: Order Comment: Speci men Type: BLOOD SPECIMENOrdering Facility: [facility] Address: [facility] [place] [address] Performed By: #### 5 7021-8 ####[facility] [id number] [place] [id number] [place] WBC (Bld) [#/Vol] 7.79 10*3/uL Normal 3.70-11.00 [facility] Comment on above: Order Comment: Speci men Type: BLOOD SPECIMENOrdering Facility: [facility] Address: [facility] [place] [address] Performed By: #### 5 7021-8 ####[facility]IA [id number] [place] [id number] [facility] [place] ED NOTEon 06-20-2025 ED NOTE HNO ID: [id number] Author: KYE KEARNEY RN Service: ? Author Type: Registered Nurse Type: ED Notes Filed: 06/23/2025 09:14 Note Text: Emergency Services: ED Call Back Questionnaire SERVICE DATE: 06/20/2025 Are you feeling better? Yes Any questions about discharge instructions and follow-up care? No Were you able to make a follow up appointment? Yes Do you have any further questions? No Is there anything that we could have done differently to improve your ED visit? No SIGNATURE: Kye Kearney RN PATIENT NAME: Helen Lieberman DATE: June 23, 2025 TIME: 9:14 AM [facility] ED PROV NOTEon 06-20-2025 ED PROV NOTE HNO ID: [id number] Author: TIERA JIMENEZ MD Service: Emergency Medicine Author Type: Physician Type: ED Provider Notes Filed: 06/20/2025 05:46 Note Text: ED Provider Note Patient Name: Helen Lieberman : 1935 SERVICE DATE: 06/20/25 History Patient presents with: Nose Bleed: Pt is on blood thinners bleeding began at 0300 no injury 89-year-old female. Comes in today for nosebleed. Apparently recurrent nosebleed. On Coumadin for atrial fibrillation with INR checked earlier today at 2.0. Left-sided bleeding. Does feel it going down her throat. PAST MEDICAL HISTORY Diagnosis Date Atrial fibrillation (HCC) 07/29/2021 Essential hypertension Gallstone pancreatitis (HCC) Pancreatitis (HCC) PAST SURGICAL HISTORY Procedure Laterality Date SECTION HX x4 FOOT SURGERY HX right side HERNIA REPAIR HX KNEE SURGERY HX Right REMOVAL GALLBLADDER FAMILY HISTORY Problem Relation Age of Onset Stroke Mother other (tia) Sister Diabetes Sister Dementia Sister Lung Cancer Sister Stroke Sister Hypertension Sister Heart Brother Social History[1] ALLERGIES Allergen Reactions Amlodipine Other: See Comments Very intense leg cramps Penicillins Unknown Sulfa (Sulfonamide * Unknown Tetracyclines Unknown Review of Systems Constitutional: Negative for chills, diaphoresis, fatigue and fever. HENT: Positive for nosebleeds. Negative for congestion, ear pain, sinus pain and sore throat. Eyes: Negative for photophobia, pain, redness and visual disturbance. Respiratory: Negative for cough, chest tightness and shortness of breath. Cardiovascular: Negative for chest pain, palpitations and leg swelling. Gastrointestinal: Negative for abdominal distention, abdominal pain, constipation, diarrhea, nausea and vomiting. Genitourinary: Negative for difficulty urinating, dysuria, flank pain, frequency and urgency. Musculoskeletal: Negative for back pain, neck pain and neck stiffness. Skin: Negative for color change, rash and wound. Neurological: Negative for dizziness, syncope, light-headedness and headaches. Psychiatric/Behavioral: Negative for agitation, behavioral problems and confusion. Physical Exam Vitals [06/20/25 0421] BP Pulse Temp Temp src Resp SpO2 Weight Height -- 76 36.6 ?C (97.8 ?F) Oral 18 97 % 54.6 kg (120 lb 5.9 oz) 1.626 m (5' 4) Physical Exam Vitals and nursing note reviewed. Constitutional: Appearance: She is well-developed. She is not diaphoretic. HENT: Head: Normocephalic and atraumatic. Right Ear: External ear normal. Left Ear: External ear normal. Nose: Comments: Brisk epistaxis from the left naris. Difficult to locate bleed which does appear to be coming from the anterior plexus Eyes: General: No scleral icterus. Right eye: No discharge. Left eye: No discharge. Conjunctiva/sclera: Conjunctivae normal. Pupils: Pupils are equal, round, and reactive to light. Neck: Vascular: No JVD. Trachea: No tracheal deviation. Cardiovascular: Rate and Rhythm: Normal rate and regular rhythm. Heart sounds: Normal heart sounds. No murmur heard. No friction rub. No gallop. Pulmonary: Effort: Pulmonary effort is normal. No respiratory distress. Breath sounds: Normal breath sounds. No stridor. No wheezing or rales. Chest: Chest wall: No tenderness. Abdominal: General: Bowel sounds are normal. There is no distension. Palpations: Abdomen is soft. There is no mass. Tenderness: There is no abdominal tenderness. There is no guarding or rebound. Musculoskeletal: General: No tenderness or deformity. Normal range of motion. Cervical back: Normal range of motion and neck supple. Skin: General: Skin is warm. Capillary Refill: Capillary refill takes less than 2 seconds. Coloration: Skin is not pale. Findings: No rash. Neurological: Mental Status: She is alert and oriented to person, place, and time. Sensory: No sensory deficit. Motor: No abnormal muscle tone. Psychiatric: Behavior: Behavior normal. Thought Content: Thought content normal. Judgment: Judgment normal. Diagnostic Testing ED Labs Ordered and Reviewed - No data to display EPISTAXIS MGMT Date/Time: 06/20/2025 4:50 AM Performed by: Tiera Jimenez MD Authorized by: Tiera Jimenez MD Procedure details: Treatment site: L anterior Treatment method: Nasal balloon Treatment complexity: Limited Treatment episode: recurring Post-procedure details: Assessment: Bleeding stopped Patient tolerance of procedure: Tolerated well, no immediate complications Comments: Coagit placed in left naris. Bleeding slowed but did not stop. Replaced with 5.5 anterior balloon. Inflated with 5 cc air. Bleeding stopped quickly thereafter. ED Course / Clinical Impression Clinical Impressions as of 06/20/25 0544 Epistaxis [facility] current use of anticoagulant MDM / Disposition / Plan Patient presents with the aforement (more content not included)... Normal [facility] PT panel Coag (PPP)on 2024 INR Coag (PPP) [Relative time] 2.0 {INR} High 0.9-1.3 [facility] Comment on above: Order Comment: Speci men Type: BLOOD SPECIMENOrdering Facility: [facility] Address: Formerly named [facility] [address], [place] [id number] Result Comment: Mirna min K Antagonist (VKA) Therapeutic Range: INR 2 to 3 (Target INR of 2.5) Note: For patients treated with VKA drugs, such as warfarin, the [place] [employer] 2012 Guideline recommends a therapeutic INR range of 2 to 3 (target INR of 2.5). This recommendation includes high-risk patients with antiphospholipid syndrome with previous arterial or venous thromboembolism, current-generation mechanical or bioprosthetic aortic heart valve replacement. Note: Patients with mechanical aortic valve replacement and additional risk factors for thromboembolic events (atrial fibrillation, previous thromboembolism, LV dysfunction, hypercoagulable conditions) or an older generation mechanical AVR (i.e., ball in-Cage) or any mechanical MVR should have a INR therapeutic range of 2.5 to 3.5 (target INR of 3). Kvng GH, et al. Chest 2012, 141:7S-47S Jayce RA, et al. JACC 2017, 70: 252-289 Performed By: #### 3 4528-0 ####[facility] [id number] [place] [address] [facility] PT Coag (PPP) [Time] 20.2 s High 9.7-13.0 [facility] Comment on above: Order Comment: Speci men Type: BLOOD SPECIMENOrdering Facility: [facility] Address: Formerly named [facility] [place] [address] Performed By: #### 3 4528-0 ####[facility] [id number] [place] [address] [facility] CNNURSEon 06-19-2025 CNNURSE Nurse Visit (AGINTML W) HELEN LIEBERMAN ([id number]) 1935 F Date Time Provider Department 06/19/25 8:20 AM NURSE CASSANDRA MACKAYW During your visit today, we recorded the following information about you: Pulse Blood pressure 71/minute 174/88 Corrine Birmingham LPN 06/19/2025 8:34 AM Signed Pt here for INR check as ordered by Tanya Lozano CNP. Pt's INR 2.0 today. Pt taking Warfarin 2 mg daily. Pt prior INR was 2.7 on 06/05/2025. Pt's blood pressure today 172/82 174/88 Corrine Birmingham LPN 06/19/2025 8:34 AM Signed Per Tanya Lozano CNP pt to continue taking Warfarin 2 mg daily will recheck at appointment 07/09/2025. Start Chlorthalidone 20 mg daily. Increase potassium in diet. Pt to schedule for NV in 1 week for blood pressure check. Pt to check blood pressure at home and bring readings in to the NV. Pt aware and verbalized an understanding. Corrine Birmingham LPN Allergies As of Date: 06/19/2025 Noted Allergy Reaction AMLODIPINE 08/11/2024 14 - Other: See Comments Comments: Very intense leg cramps PENICILLINS 07/24/2021 16 - Unknown SULFA (SULFONAMIDE ANTIBIOTICS) 07/24/2021 16 - Unknown TETRACYCLINES 07/24/2021 16 - Unknown Date Reviewed: 06/16/2025 Reviewed by: Black Westfall RN - Fully Assessed Reason for Visit: Coumadin/INR [1207] Primary Visit Diagnosis:Paroxysmal atrial fibrillation (HCC) [I48.0] Other Visit Diagnoses:Allergy to penicillin [Z88.0] Essential hypertension, benign [I10] Order(s):INR (POC) [3440176] Order #: [id number] chlorthalidone (HYGROTON) 25 mg tabletTake 1 tablet by mouth once daily.Disp: 30 tabletRfl: 0 Prescriptions as of 06/19/2025 - chlorthalidone (HYGROTON) 25 mg tablet Take 1 tablet by mouth once daily. - losartan (COZAAR) 100 mg tablet Take 1 tablet by mouth once daily. - sodium chloride 0.65 % nasal spray Use 2 sprays in the nose five times a day. - sodium chloride-aloe vera (AYR SALINE) topical nasal gel 1 application by INTRANASAL route three times a day. - Oxymetazoline HCl (AFRIN, OXYMETAZOLINE,) 0.05 % mist Use 1 spray in the nose as needed (as needed with active nosebleed). - azithromycin (ZITHROMAX Z-ZACH) 250 mg tablet Two Pills on day 1, One Pill daily on days 2-5 - azithromycin (ZITHROMAX Z-ZACH) 250 mg tablet Two Pills on day 1, One Pill daily on days 2-5 - warfarin (COUMADIN) 2 mg tablet Take 1 tablet by mouth daily as directed. - levothyroxine (SYNTHROID) 75 mcg tablet Take 1 tablet by mouth daily before breakfast. - carvedilol (COREG) 25 mg tablet 1 tablet with food Orally Twice a day for 90 days - pantoprazole DR (PROTONIX) 40 mg tablet Take 1 tablet by mouth once daily. - warfarin (COUMADIN) 3 mg tablet Take 1 tablet by mouth once daily. - acetaminophen (TYLENOL) 500 mg tablet Take 2 tablets by mouth every 8 hours. - magnesium oxide (MAG-OX) 400 mg (241.3 mg magnesium) tablet Take 1 tablet by mouth once daily. - polyethylene glycol 3350 (MIRALAX, GLYCOLAX) 17 gram packet Take 17 g by mouth once daily. Dissolve dose in 4 - 8 ounces of liquid and take as directed. - Cholecalciferol, Vitamin D3, 50 mcg (2,000 unit) cap Take by mouth once daily. Problem List As Of Date 06/19/2025 Noted Resolved Essential hypertension, benign [I10] 03/20/2015 Hypothyroidism [E03.9] 03/20/2015 Atrial fibrillation (HCC) [I48.91] 07/29/2021 TIA (transient ischemic attack) [G45.9] 08/09/2021 GERD (gastroesophageal reflux disease) [K21.9] 08/09/2021 Vertigo [R42] 08/09/2021 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] 08/25/2021 Syncope [R55] 09/07/2023 09/08/2023 Syncope and collapse [R55] 09/07/2023 09/08/2023 Chronic diastolic CHF (congestive heart failure*09/08/2023 Hx-TIA (transient ischemic attack) [Z86.73] 08/09/2024 Hyponatremia [E87.1] 08/09/2024 Elevated troponin level [R79.89] 08/09/2024 Fall at home, sequela [W19.XXXS, Y92.009] 08/09/2024 Left hip pain [M25.552] 08/09/2024 Hematoma of left thigh [S70.12XA] 08/09/2024 Hamstring injury, left, initial encounter [S76.*08/10/2024 Prescriptions ordered this encounter Disp Refills Start End CHLORTHALIDONE 25 MG TABLET 30 t* 0 06/19/2025 Route: PO Sig: Take 1 tablet by mouth once daily. Encounter Status:Closed by CORRINE BIRMINGHAM on 06/19/25 [facility] ED NOTEon 06-16-2025 ED NOTE HNO ID: [id number] Author: DANIEL SANCHEZ RN Service: ? Author Type: Registered Nurse Type: ED Notes Filed: 06/16/2025 05:05 Note Text: Discharge instructions d/w pt and SPOUSE at bedside. Stated understanding with no further questions for this nurse. Encouraged f/u with PCP and referring doctors given. Stated understanding. Prescription(S) were given X 0. Normal [facility] ED PROV NOTEon 06-16-2025 ED PROV NOTE HNO ID: [id number] Author: ARTURO REYES DO Service: Emergency Medicine Author Type: Physician Type: ED Provider Notes Filed: 06/16/2025 04:53 Note Text: ED Provider Note Patient Name: Helen Lieberman : 1935 SERVICE DATE: 06/16/25 History Patient presents with: Nose Bleed: Started @ 2am, pt arrived with nose clamp in place 89-year-old female with a history of atrial fibrillation on Coumadin presenting to the ER today for nosebleed that spontaneously started around 2 AM. She said she followed up with ENT recently after her most recent nosebleed that required packing and they told her to put the clamp on for 15 minutes and then check afterwards and then do it again for 15 minutes and if it has not stopped come to the ER which is what she did. She otherwise left the clamp in place after that. She denies any trauma. PAST MEDICAL HISTORY Diagnosis Date Atrial fibrillation (HCC) 07/29/2021 Essential hypertension Gallstone pancreatitis (HCC) Pancreatitis (HCC) PAST SURGICAL HISTORY Procedure Laterality Date SECTION HX x4 FOOT SURGERY HX right side HERNIA REPAIR HX KNEE SURGERY HX Right REMOVAL GALLBLADDER FAMILY HISTORY Problem Relation Age of Onset Stroke Mother other (tia) Sister Diabetes Sister Dementia Sister Lung Cancer Sister Stroke Sister Hypertension Sister Heart Brother Social History[1] ALLERGIES Allergen Reactions Amlodipine Other: See Comments Very intense leg cramps Penicillins Unknown Sulfa (Sulfonamide * Unknown Tetracyclines Unknown Review of Systems HENT: Positive for nosebleeds. Allergic/Immunologic: Negative for immunocompromised state. All other systems reviewed and are negative. Physical Exam Vitals [06/16/25 0401] BP Pulse Temp Temp src Resp SpO2 Weight Height 193/97 78 36.5 ?C (97.7 ?F) Oral 18 98 % 53.1 kg (117 lb) 1.524 m (5') Physical Exam Vitals and nursing note reviewed. Constitutional: General: She is not in acute distress. Appearance: She is well-developed. She is not ill-appearing. HENT: Head: Normocephalic and atraumatic. Nose: Comments: Dried blood in bilateral naris Eyes: Conjunctiva/sclera: Conjunctivae normal. Neck: Thyroid: No thyromegaly. Trachea: No tracheal deviation. Cardiovascular: Rate and Rhythm: Normal rate. Pulmonary: Effort: Pulmonary effort is normal. No respiratory distress. Abdominal: General: There is no distension. Musculoskeletal: General: Normal range of motion. Cervical back: Normal range of motion. Skin: General: Skin is warm and dry. Capillary Refill: Capillary refill takes less than 2 seconds. Findings: No rash. Neurological: Mental Status: She is alert and oriented to person, place, and time. Psychiatric: Behavior: Behavior normal. Diagnostic Testing ED Labs Ordered and Reviewed - No data to display Procedures ED Course / Clinical Impression Clinical Impressions as of 06/16/25452 Epistaxis Hypertension, unspecified type MDM / Disposition / Plan 89-year-old female with a history of atrial fibrillation on Coumadin presenting to the ER today for nosebleed that spontaneously started around 2 AM. Vital signs consistent with hypertension otherwise nonactionable Exam and history as noted above I took the clamp off and we appear to have hemostasis without any further intervention Monitor for 1 hour with no further bleeding Discussed what to do if worsens again No indication for packing, cauterization Patient stable for discharge with resolved anterior nose bleed History and Record Review External record(s) reviewed: immunization history, PDMP reviewed and PDMP reviewed. Disposition The patient was discharged. See MDM narrative Counseled patient and family regarding suspected diagnosis. The following prescription medication(s) were considered but ultimately not given after discussion with patient/family: see ED Course . SIGNATURE: DO Sumaya Dewitt [1] Social History Tobacco Use Smoking status: Never Smokeless tobacco: Never Vaping Use Vaping status: Never Used Substance and Sexual Activity Alcohol use: Yes Comment: Rarely Drug use: Never Sexual activity: Not on file ARTURO REYES 06/16/25 0453 [facility] 06-05-2025 CNNURSE Nurse Visit (AGINTML W) HELEN LIEBERMAN ([id number]) 1935 F Date Time Provider Department 06/05/25 10:40 AM NURSE CASSANDRA HUSSEIN During your visit today, we recorded the following information about you: Blood pressure 128/72 Corrine Birmingham LPN 06/05/2025 11:02 AM Signed Pt here for INR check as ordered by Tanya Lozano CNP. INR today is 2.7. Pt took Warfarin 3 mg Tuesday and 2 mg Tue, Tue and . Pt last INR was 1.9 on discharge from [facility] on 06/01/2025. Pt is scheduled today to have nasal packing removed. Per Tanya Lozano CNP pt to continue taking Warfarin 2 mg daily and recheck INR in 2 weeks. Pt aware and verbalized an understanding. Corrine Birmingham LPN Allergies As of Date: 06/05/2025 Noted Allergy Reaction AMLODIPINE 08/11/2024 14 - Other: See Comments Comments: Very intense leg cramps PENICILLINS 07/24/2021 16 - Unknown SULFA (SULFONAMIDE ANTIBIOTICS) 07/24/2021 16 - Unknown TETRACYCLINES 07/24/2021 16 - Unknown Date Reviewed: 06/01/2025 Reviewed by: Diana Cervantes RN - Fully Assessed Reason for Visit: Coumadin/INR [1207] Primary Visit Diagnosis:Paroxysmal atrial fibrillation (HCC) [I48.0] Order(s):INR (POC) [2446065] Order #: [id number] Prescriptions as of 06/05/2025 - azithromycin (ZITHROMAX Z-ZACH) 250 mg tablet Two Pills on day 1, One Pill daily on days 2-5 - azithromycin (ZITHROMAX Z-ZACH) 250 mg tablet Two Pills on day 1, One Pill daily on days 2-5 - warfarin (COUMADIN) 2 mg tablet Take 1 tablet by mouth daily as directed. - levothyroxine (SYNTHROID) 75 mcg tablet Take 1 tablet by mouth daily before breakfast. - losartan (COZAAR) 100 mg tablet Take 1 tablet by mouth once daily. - carvedilol (COREG) 25 mg tablet 1 tablet with food Orally Twice a day for 90 days - pantoprazole DR (PROTONIX) 40 mg tablet Take 1 tablet by mouth once daily. - warfarin (COUMADIN) 3 mg tablet Take 1 tablet by mouth once daily. - acetaminophen (TYLENOL) 500 mg tablet Take 2 tablets by mouth every 8 hours. - magnesium oxide (MAG-OX) 400 mg (241.3 mg magnesium) tablet Take 1 tablet by mouth once daily. - polyethylene glycol 3350 (MIRALAX, GLYCOLAX) 17 gram packet Take 17 g by mouth once daily. Dissolve dose in 4 - 8 ounces of liquid and take as directed. - Cholecalciferol, Vitamin D3, 50 mcg (2,000 unit) cap Take by mouth once daily. Problem List As Of Date 06/05/2025 Noted Resolved Essential hypertension, benign [I10] 03/20/2015 Hypothyroidism [E03.9] 03/20/2015 Atrial fibrillation (HCC) [I48.91] 07/29/2021 TIA (transient ischemic attack) [G45.9] 08/09/2021 GERD (gastroesophageal reflux disease) [K21.9] 08/09/2021 Vertigo [R42] 08/09/2021 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] 08/25/2021 Syncope [R55] 09/07/2023 09/08/2023 Syncope and collapse [R55] 09/07/2023 09/08/2023 Chronic diastolic CHF (congestive heart failure*09/08/2023 Hx-TIA (transient ischemic attack) [Z86.73] 08/09/2024 Hyponatremia [E87.1] 08/09/2024 Elevated troponin level [R79.89] 08/09/2024 Fall at home, sequela [W19.XXXS, Y92.009] 08/09/2024 Left hip pain [M25.552] 08/09/2024 Hematoma of left thigh [S70.12XA] 08/09/2024 Hamstring injury, left, initial encounter [S76.*08/10/2024 Encounter Status:Closed by CORRINE BIRMINGHAM on 06/05/25 [facility] CNOVon 06-05-2025 CNOV Office Visit (OTOLTW ) HELEN LIEBERMAN ([id number]) 1935 F Date Time Provider Department 06/05/25 1:25 PM NIGEL IRIZARRY OTOLTW During your visit today, we recorded the following information about you: Pulse Blood pressure 90/minute 152/83 Nigel Irizarry PA-C 06/05/2025 2:13 PM Signed OTOLARYNGOLOGY-HEAD AND NECK SURGERY CC: Helen Lieberman is a 89 year old female who is seen at the request of Reese Caruso MD for evaluation of epistaxis. My findings and recommendations will be communicated to the referring provider via the shared electronic medical record. Assessment: Epistaxis (primary encounter diagnosis) Plan: 1. Epistaxis (R04.0) - Recent left-sided epistaxis requiring ER visit and placement of nasal packing (Merocel); on Coumadin - Nasal packing removed on day 4 - Nasal endoscopy visualized irritation throughout the anterior portion of the left nasal cavity with very mild bleeding - Applied afrin and Surgicel Fibrillar to left nasal cavity post-packing removal to promote hemostasis. - Advised use of saline spray and AYR saline gel to maintain nasal mucosa moisture; instructed to avoid nose blowing and minimize nasal manipulation for 2 weeks. - Provided nasal clips and Afrin spray for emergency use only; instructed on proper technique for managing future epistaxis episodes. - Advised to avoid heavy lifting and straining. Sneeze with mouth open. - Follow-up in 4-6 weeks to reassess. Nigel Irizarry PA-C HPI: Helen Lieberman is a 89 year old female who comes in for epistaxis. Epistaxis: - Severe epistaxis from the left nostril required ED visit. - ED placed a nasal packing device; Helen reports discomfort during insertion. - Denies history of cauterization - Mild drainage from the left nostril since Merocel placement in the ED 4 days prior - Previous epistaxis episode last spring, managed with a humidifier. - No history of sinus surgeries or nasal trauma. - Takes coumadin - Recent INR adjustments: previously alternating 2 mg and 3 mg doses, now on 2 mg daily for the next two weeks. History of TIA several years ago, initiated anticoagulation therapy. Also has history of Afib ALLERGIES Allergen Reactions Amlodipine Other: See Comments Very intense leg cramps Penicillins Unknown Sulfa (Sulfonamide * Unknown Tetracyclines Unknown Current Outpatient Medications Medication Sig losartan (COZAAR) 100 mg tablet Take 1 tablet by mouth once daily. azithromycin (ZITHROMAX Z-ZACH) 250 mg tablet Two Pills on day 1, One Pill daily on days 2-5 azithromycin (ZITHROMAX Z-ZACH) 250 mg tablet Two Pills on day 1, One Pill daily on days 2-5 warfarin (COUMADIN) 2 mg tablet Take 1 tablet by mouth daily as directed. levothyroxine (SYNTHROID) 75 mcg tablet Take 1 tablet by mouth daily before breakfast. carvedilol (COREG) 25 mg tablet 1 tablet with food Orally Twice a day for [address] (PROTONIX) 40 mg tablet Take 1 tablet by mouth once daily. warfarin (COUMADIN) 3 mg tablet Take 1 tablet by mouth once daily. acetaminophen (TYLENOL) 500 mg tablet Take 2 tablets by mouth every 8 hours. magnesium oxide (MAG-OX) 400 mg (241.3 mg magnesium) tablet Take 1 tablet by mouth once daily. polyethylene glycol 3350 (MIRALAX, GLYCOLAX) 17 gram packet Take 17 g by mouth once daily. Dissolve dose in 4 - 8 ounces of liquid and take as directed. Cholecalciferol, Vitamin D3, 50 mcg (2,000 unit) cap Take by mouth once daily. No current facility-administered medications for this visit. PAST MEDICAL HISTORY Diagnosis Date Atrial fibrillation (HCC) 07/29/2021 Essential hypertension Gallstone pancreatitis (HCC) Pancreatitis (HCC) PAST SURGICAL HISTORY Procedure Laterality Date SECTION HX x4 FOOT SURGERY HX right side HERNIA REPAIR HX KNEE SURGERY HX Right REMOVAL GALLBLADDER Social History: SOCIAL HISTORY[1] FAMILY HISTORY Problem Relation Age of Onset Stroke Mother other (tia) Sister Diabetes Sister Dementia Sister Lung Cancer Sister Stroke Sister Hypertension Sister Heart Brother PHYSICAL EXAM: On physical examination Helen Lieberman is a well-developed, well nourished female. Her speech is normal and her voice is clear. Mental status revealed patient to be alert and oriented. Mood is appropriate. Details of the physical examination: CRANIAL NERVE EXAM: II: Pupillary reflexes normal III, IV, : EOM normal V: 1,2,3: normal sensation VII: Normal strength in all divisions. VIII: Hearing grossly normal. IX, X:palatal elevation and sensation XI: Shoulder strength normal XII: Tongue mobility normal HEAD AND FACE: Physical examination of the head, neck, external nose, external ears, mouth and face fails to demonstrate any significant abnormality or asymmetry to critical face to face observation. S (more content not included)... Normal [facility] 06-03-2025 SIGIFREDO Telephone (AGINTMLW) HELEN LIEBERMAN ([id number]) 1935 F Date Time Provider Department 06/03/25 TANYA LOZANO INTSanjeev During your visit today, we recorded the following information about you: Corrine Birmingham LPN 06/03/2025 1:40 PM Signed Pt left message that she was in the ER on Tuesday for nose bleed. Pt states that she was told to follow up with office to see if she needs to hold warfarin and when to recheck INR. Please advise ROBERT Mcgovern Charlene M, [employer] 06/03/2025 4:11 PM Signed She should follow up with ENT. Recommend recheck INR this week. She should resume coumadin at 2 mg daily. Recheck inr tomorrow or Tuesday. Corrine Birmingham LPN 06/03/2025 4:24 PM Signed Pt aware and verbalized an understanding. Pt will be in on Tuesday for INR. Corrine Birmingham LPN Allergies As of Date: 06/03/2025 Noted Allergy Reaction AMLODIPINE 08/11/2024 14 - Other: See Comments Comments: Very intense leg cramps PENICILLINS 07/24/2021 16 - Unknown SULFA (SULFONAMIDE ANTIBIOTICS) 07/24/2021 16 - Unknown TETRACYCLINES 07/24/2021 16 - Unknown Date Reviewed: 06/01/2025 Reviewed by: Diana Cervantes RN - Fully Assessed Reason for Visit: Patient Question [5657] Prescriptions as of 06/03/2025 - azithromycin (ZITHROMAX Z-ZACH) 250 mg tablet Two Pills on day 1, One Pill daily on days 2-5 - azithromycin (ZITHROMAX Z-ZACH) 250 mg tablet Two Pills on day 1, One Pill daily on days 2-5 - warfarin (COUMADIN) 2 mg tablet Take 1 tablet by mouth daily as directed. - levothyroxine (SYNTHROID) 75 mcg tablet Take 1 tablet by mouth daily before breakfast. - losartan (COZAAR) 100 mg tablet Take 1 tablet by mouth once daily. - carvedilol (COREG) 25 mg tablet 1 tablet with food Orally Twice a day for 90 days - pantoprazole DR (PROTONIX) 40 mg tablet Take 1 tablet by mouth once daily. - warfarin (COUMADIN) 3 mg tablet Take 1 tablet by mouth once daily. - acetaminophen (TYLENOL) 500 mg tablet Take 2 tablets by mouth every 8 hours. - magnesium oxide (MAG-OX) 400 mg (241.3 mg magnesium) tablet Take 1 tablet by mouth once daily. - polyethylene glycol 3350 (MIRALAX, GLYCOLAX) 17 gram packet Take 17 g by mouth once daily. Dissolve dose in 4 - 8 ounces of liquid and take as directed. - Cholecalciferol, Vitamin D3, 50 mcg (2,000 unit) cap Take by mouth once daily. Problem List As Of Date 06/03/2025 Noted Resolved Essential hypertension, benign [I10] 03/20/2015 Hypothyroidism [E03.9] 03/20/2015 Atrial fibrillation (HCC) [I48.91] 07/29/2021 TIA (transient ischemic attack) [G45.9] 08/09/2021 GERD (gastroesophageal reflux disease) [K21.9] 08/09/2021 Vertigo [R42] 08/09/2021 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] 08/25/2021 Syncope [R55] 09/07/2023 09/08/2023 Syncope and collapse [R55] 09/07/2023 09/08/2023 Chronic diastolic CHF (congestive heart failure*09/08/2023 Hx-TIA (transient ischemic attack) [Z86.73] 08/09/2024 Hyponatremia [E87.1] 08/09/2024 Elevated troponin level [R79.89] 08/09/2024 Fall at home, sequela [W19.XXXS, Y92.009] 08/09/2024 Left hip pain [M25.552] 08/09/2024 Hematoma of left thigh [S70.12XA] 08/09/2024 Hamstring injury, left, initial encounter [S76.*08/10/2024 Encounter Status:Closed by CORRINE BIRMINGHAM on 06/03/25 Normal [facility] CBC W Auto Differential pane l (Bld)on 06-01-2025 Basophils (Bld) [#/Vol] 0.04 10*3/uL Normal <0.11 [facility] Comment on above: Order Comment: Speci men Type: BLOOD SPECIMEN [facility]ing Facility: [facility] Address: [address] [place] [address] Performed By: #### 5 8410-2 #### [facility] CLIA [id number] [address] [place] [address] [place] Basophils/100 WBC (Bld) 0.6 % Normal [facility] Comment on above: Order Comment: Speci men Type: BLOOD SPECIMEN Ordering Facility: [facility] Address: [address] [place] [address] Performed By: #### 5 8410-2 #### [facility] CLIA [id number] [address] [place] [address] [place] Differential cell count method Nom (Bld) Auto Normal [facility] Comment on above: Order Comment: Speci men Type: BLOOD SPECIMEN Ordering Facility: [facility] Address: [address] [place] [address] Performed By: #### 5 8410-2 #### [facility] CLIA [id number] [address] [place] [address] [place] Eosinophils (Bld) [#/Vol] 0.12 10*3/uL Normal <0.46 [facility] Comment on above: Order Comment: Speci men Type: BLOOD SPECIMEN Ordering Facility: [facility] Address: [address] [place] [address] Performed By: #### 5 8410-2 #### [facility] CLIA [id number] [address] [place] Eosinophils/100 WBC (Bld) 1.9 % Normal [facility] Comment on above: Order Comment: Speci men Type: BLOOD SPECIMEN Ordering Facility: [facility] Address: [address] [place] [address] Performed By: #### 5 8410-2 #### [facility] CLIA [id number] [address] [place] Erythrocyte distribution width (RBC) [Ratio] 14.5 % Normal 11.5-15.0 [facility] Comment on above: Order Comment: Speci men Type: BLOOD SPECIMEN Ordering Facility: [facility] Address: [address] [place] [address] Performed By: #### 5 8410-2 #### [facility] CLIA [id number] [address] [place] Hematocrit (Bld) [Volume fraction] 38.6 % Normal 36.0-46.0 [facility] Comment on above: Order Comment: Speci men Type: BLOOD SPECIMEN Ordering Facility: [facility] Address: [address] [place] [address] Performed By: #### 5 8410-2 #### [facility] CLIA [id number] [address] [place] Hemoglobin (Bld) [Mass/Vol] 12.5 g/dL Normal 11.5-15.5 [facility] Comment on above: Order Comment: Speci men Type: BLOOD SPECIMEN Ordering Facility: [facility] Address: [address] [place] [address] Performed By: #### 5 8410-2 #### [facility] CLIA [id number] [address] [place] [address] [place] Immature granulocytes (Bld) [#/Vol] 10*3/uL Normal <0.10 [facility] Comment on above: Order Comment: Speci men Type: BLOOD SPECIMEN Ordering Facility: [facility] Address: [address] [place] [address] Performed By: #### 5 8410-2 #### [facility] CLIA [id number] [address] [place] [address] [place] Immature granulocytes/100 WBC (Bld) 0.2 % Normal [facility] Comment on above: Order Comment: Speci men Type: BLOOD SPECIMEN Ordering Facility: [facility] Address: [address] [place] [address] Performed By: #### 5 8410-2 #### [facility] CLIA [id number] [address] [place] Lymphocytes (Bld) [#/Vol] 1.76 10*3/uL Normal 1.00-4.00 [facility] Comment on above: Order Comment: Speci men Type: BLOOD SPECIMEN Ordering Facility: [facility] Address: [address] [place] [address] Performed By: #### 5 8410-2 #### [facility] CLIA [id number] [address] Lymphocytes/100 WBC (Bld) 28.0 % Normal [facility] Comment on above: Order Comment: Speci men Type: BLOOD SPECIMEN Ordering Facility: [facility] Address: [address] [place] [address] Performed By: #### 5 8410-2 #### [facility] CLIA [id number] [address] [place] [address] [place] MCH (RBC) [Entitic mass] 31.0 pg Normal 26.0-34.0 [facility] Comment on above: Order Comment: Speci men Type: BLOOD SPECIMEN Ordering Facility: [facility] Address: [address] [place] [address] Performed By: #### 5 8410-2 #### [facility] CLIA [id number] [address] [place] MCHC (RBC) [Mass/Vol] 32.4 g/dL Normal 30.5-36.0 [facility] Comment on above: Order Comment: Speci men Type: BLOOD SPECIMEN Ordering Facility: [facility] Address: [address] [place] [address] Performed By: #### 5 8410-2 #### [facility] CLIA [id number] [address] [place] [address] [place] MCV (RBC) [Entitic vol] 95.8 fL Normal 80.0-100.0 [facility] Comment on above: Order Comment: Speci men Type: BLOOD SPECIMEN Ordering Facility: [facility] Address: [address] [place] [address] Performed By: #### 5 8410-2 #### [facility] CLIA [id number] [address] [place] [address] [place] Monocytes (Bld) [#/Vol] 0.72 10*3/uL Normal <0.87 [facility] Comment on above: Order Comment: Speci men Type: BLOOD SPECIMEN Ordering Facility: [facility] Address: [address] [place] [address] Performed By: #### 5 8410-2 #### [facility] CLIA [id number] [address] Monocytes/100 WBC (Bld) 11.4 % Normal [facility] Comment on above: Order Comment: Speci men Type: BLOOD SPECIMEN Ordering Facility: [facility] Address: [address] [place] [address] Performed By: #### 5 8410-2 #### [facility] CLIA [id number] [address] [place] [address] [place] Neutrophils (Bld) [#/Vol] 3.64 10*3/uL Normal 1.45-7.50 [facility] Comment on above: Order Comment: Speci men Type: BLOOD SPECIMEN Ordering Facility: [facility] Address: [address] [place] [address] Performed By: #### 5 8410-2 #### [facility] CLIA [id number] [address] [place] [address] [place] Neutrophils/100 WBC (Bld) 57.9 % Normal [facility] Comment on above: Order Comment: Speci men Type: BLOOD SPECIMEN Ordering Facility: [facility] Address: [address] [place] [address] Performed By: #### 5 8410-2 #### [facility] CLIA [id number] [address] [place] [address] [place] Nucleated RBC (Bld) [#/Vol] 10*3/uL Normal <0.01 [facility] Comment on above: Order Comment: Speci men Type: BLOOD SPECIMEN Ordering Facility: [facility] Address: [address] [place] [address] Performed By: #### 5 8410-2 #### [facility] CLIA [id number] [address] [place] [address] [place] Nucleated RBC/100 WBC (Bld) [Ratio] 0.0 /100 WBC Normal [facility] Comment on above: Order Comment: Speci men Type: BLOOD SPECIMEN Ordering Facility: [facility] Address: [address] [place] [address] Performed By: #### 5 8410-2 #### [facility] CLIA [id number] [address] [place] [address] [place] Platelet mean volume (Bld) [Entitic vol] 8.6 fL Low 9.0-12.7 [facility] Comment on above: Order Comment: Speci men Type: BLOOD SPECIMEN Ordering Facility: [facility] Address: [address] [place] [address] Performed By: #### 5 8410-2 #### [facility] CLIA [id number] [address] [place] [address] [place] Platelets (Bld) [#/Vol] 234 10*3/uL Normal 150-400 [facility] Comment on above: Order Comment: Speci men Type: BLOOD SPECIMEN Ordering Facility: [facility] Address: [address] [place] [address] Performed By: #### 5 8410-2 #### [facility] CLIA [id number] [address] OF [facility] RBC (Bld) [#/Vol] 4.03 10*6/uL Normal 3.90-5.20 [facility] Comment on above: Order Comment: Speci men Type: BLOOD SPECIMEN Ordering Facility: [facility] Address: [address] [place] [address] Performed By: #### 5 8410-2 #### [facility] CLIA [id number] [address] WBC (Bld) [#/Vol] 6.29 10*3/uL Normal 3.70-11.00 [facility] Comment on above: Order Comment: Speci men Type: BLOOD SPECIMEN Ordering Facility: [facility] Address: [address] [place] [address] Performed By: #### 5 8410-2 #### [facility] CLIA [id number] [address] ED NOTEon 06-01-2025 ED NOTE HNO ID: [id number] Author: BLACK WESTFALL RN Service: Nursing Author Type: Registered Nurse Type: ED Notes Filed: 06/01/2025 23:57 Note Text: Discharge instructions gone over with pt and family, voiced understanding and pt taken out via w/c to family's car. [facility] ED PROV NOTEon 06-01-2025 ED PROV NOTE HNO ID: [id number] Author: REESE CARUSO MD Service: ? Author Type: Physician Type: ED Provider Notes Filed: 06/01/2025 23:41 Note Text: ED Provider Note Patient Name: Helen Lieberman : 1935 SERVICE DATE: 06/01/25 History Patient presents with: Epistaxis: Patient arrived via [facility] from home where she started having a nosebleed 2100, is on coumadin. Ems placed nose clamp, is not bleeding at this time. 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 Epistaxis Location: L nare Severity: Moderate Timing: Constant Progression: Unchanged Context: anticoagulants Relieved by: Nothing Worsened by: Nothing Ineffective treatments: None tried Associated symptoms: no blood in oropharynx PAST MEDICAL HISTORY Diagnosis Date - Atrial fibrillation (HCC) 07/29/2021 - Essential hypertension - Gallstone pancreatitis (HCC) - Pancreatitis (HCC) PAST SURGICAL HISTORY Procedure Laterality Date - SECTION HX x4 - FOOT SURGERY HX right side - HERNIA REPAIR HX - KNEE SURGERY HX Right - REMOVAL GALLBLADDER FAMILY HISTORY Problem Relation Age of Onset - Stroke Mother - other (tia) Sister - Diabetes Sister - Dementia Sister - Lung Cancer Sister - Stroke Sister - Hypertension Sister - Heart Brother Social History[1] ALLERGIES Allergen Reactions - Amlodipine Other: See Comments Very intense leg cramps - Penicillins Unknown - Sulfa (Sulfonamide * Unknown - Tetracyclines Unknown Review of Systems HENT: Positive for nosebleeds. Physical Exam Vitals [06/01/25 2150] BP Pulse Temp Temp src Resp SpO2 Weight Height 159/83 69 36.4 ?C (97.5 ?F) Oral 18 96 % 53.1 kg (117 lb) 1.575 m (5' 2) Physical Exam Vitals and nursing note reviewed. Constitutional: Appearance: She is well-developed. HENT: Nose: Comments: Right side has no epistaxis no blood in the posterior pharynx, the left nare suicide unclipped that you could see some blood starting to pull looks like it is more anterior does not go down the posterior Eyes: General: Lids are normal. Lids are everted, no foreign bodies appreciated. Neck: Trachea: Trachea normal. Musculoskeletal: Right shoulder: Normal. Left shoulder: Normal. Cervical back: No deformity. Thoracic back: No deformity. Right ankle: Normal. Left ankle: Normal. Neurological: Mental Status: She is alert and oriented to person, place, and time. GCS: GCS eye subscore is 4. GCS verbal subscore is 5. GCS motor subscore is 6. Cranial Nerves: No cranial nerve deficit. Sensory: No sensory deficit. Deep Tendon Reflexes: Reflexes are normal and symmetric. Psychiatric: Attention and Perception: Attention and perception normal. Diagnostic Testing ED Labs Ordered and Reviewed - No data to display Procedures ED Course / Clinical Impression Clinical Impressions as of 06/01/25 2341 Epistaxis Hypertension, unspecified type MDM / Disposition / Plan 89-year-old on Coumadin comes in with epistaxis on Coumadin for A-fib last time they checked her Coumadin few days ago was 3.08. She has had epistaxis in the past is bleeding down the left nare anteriorly and is not stopping is been going on since around 3 PM. EMS put a clamp on her and sent her into the ER. She has minimal bleeding with the clamp but is oozing around the clamp. Nothing going down the posterior pharynx Physical exam Afebrile vital signs within normal limits HEENT throat no erythema no exudate no bleeding down the posterior pharynx, the left anterior there is bleeding when I released the clamp it actually started to pull up and bleed again in that left side. The right side does not have any bleeding Differential diagnosis #1 anterior epistaxis #2 thrombocytopenia #3 coagulopathy Had the patient blow her nose cleaned out the clot she actually started getting some active bleeding anteriorly no posterior bleeding. Using the Merisel pack with the blue and inserted in the usual fashion, used TXA to expand the foam looks like we have hemostasis. CBC and INR is ordered will observe the patient to see if epistaxis is achieved Results for orders placed or performed during the hospital encounter of 06/01/25 -COMPLETE BLOOD COUNT AND DIFFERENTIAL: Result Value Ref Range WBC 6.29 3.70 - 11.00 k/uL RBC 4.03 3.90 - 5.20 m/uL Hemoglobin 12.5 11.5 - 15.5 g/dL Hematocrit 38.6 36.0 - 46.0 % MCV 95.8 80.0 - 100.0 fL MCH 31.0 26.0 - 34.0 pg MCHC 32.4 30.5 - 36.0 g/dL RDW-CV 14.5 11.5 - 15.0 % Platelet Count 234 150 - 400 k/uL MPV 8.6 (L) 9.0 - 12.7 fL Neutrophils % 57.9 % Abs Neut 3.64 1.45 - 7.50 k/uL Lymphocytes % 28.0 % Abs Lymph 1.76 1.00 - 4.00 k/uL Monocytes % 11.4 % Abs [place] 0.72 <0.87 k/uL Eosinophils % 1.9 % Abs Eosin 0.12 <0.46 k/uL Basophils % 0.6 % Abs Baso 0.04 <0.11 k/uL Immature Granulocytes % 0.2 % Abs Immature Gran <0 (more content not included)... Normal [facility] PT panel Coag (PPP)on 2024 INR Coag (PPP) [Relative time] 1.9 {INR} High 0.9-1.3 [facility] Comment on above: Order Comment: Marti hankins Type: BLOOD SPECIMEN Ordering Facility: [facility] Address: [address] [place] [id number] Result Comment: Mirna min K Antagonist (VKA) Therapeutic Range: INR 2 to 3 (Target INR of 2.5) Note: For patients treated with VKA drugs, such as warfarin, the [place] [employer] 2012 Guideline recommends a therapeutic INR range of 2 to 3 (target INR of 2.5). This recommendation includes high-risk patients with antiphospholipid syndrome with previous arterial or venous thromboembolism, current-generation mechanical or bioprosthetic aortic heart valve replacement. Note: Patients with mechanical aortic valve replacement and additional risk factors for thromboembolic events (atrial fibrillation, previous thromboembolism, LV dysfunction, hypercoagulable conditions) or an older generation mechanical AVR (i.e., ball in-Cage) or any mechanical MVR should have a INR therapeutic range of 2.5 to 3.5 (target INR of 3). Kvng CARMONA, et al. Chest 2012, 141:7S-47S Jayce RA, et al. JAC 2017, 70: 252-289 Performed By: #### 5 8410-2 #### [facility] CLIA [id number] [address] [place] [address] [place] PT Coag (PPP) [Time] 19.5 s High 9.7-13.0 [facility] Comment on above: Order Comment: Marti hankins Type: BLOOD SPECIMEN Ordering Facility: [facility] Address: [address] [place] [address] Performed By: #### 5 8410-2 #### [facility] CLIA [id number] [address] [place] CNNURSEon 05-30-2025 CNNURSE Nurse Visit (AGINTML W) HELEN LIEBERMAN ([id number]) 1935 F Date Time Provider Department 05/30/25 8:20 AM NURSE CASSANDRA MACKAYW During your visit today, we recorded the following information about you: Blood pressure 126/78 Nicole Foreman MA 05/30/2025 8:28 AM Signed Patient is here to check their INR Last INR: 3.8 Current Dose: 2 mg ,, and 3 mg all other days INR: 3.4 Per PCP Hold today 3 mg tue, and Tuesday and 2 mg all other days recheck one week Nicole Foreman MA Allergies As of Date: 05/30/2025 Noted Allergy Reaction AMLODIPINE 08/11/2024 14 - Other: See Comments Comments: Very intense leg cramps PENICILLINS 07/24/2021 16 - Unknown SULFA (SULFONAMIDE ANTIBIOTICS) 07/24/2021 16 - Unknown TETRACYCLINES 07/24/2021 16 - Unknown Date Reviewed: 04/27/2025 Reviewed by: Lauren Martinez, RN - Fully Assessed Reason for Visit: Coumadin/INR [1207] Primary Visit Diagnosis:Atrial fibrillation, unspecified type (HCC) [I48.91] Order(s):INR (POC) [6422384] Order #: [id number] Prescriptions as of 05/30/2025 - warfarin (COUMADIN) 2 mg tablet Take 1 tablet by mouth daily as directed. - levothyroxine (SYNTHROID) 75 mcg tablet Take 1 tablet by mouth daily before breakfast. - losartan (COZAAR) 100 mg tablet Take 1 tablet by mouth once daily. - carvedilol (COREG) 25 mg tablet 1 tablet with food Orally Twice a day for 90 days - pantoprazole DR (PROTONIX) 40 mg tablet Take 1 tablet by mouth once daily. - warfarin (COUMADIN) 3 mg tablet Take 1 tablet by mouth once daily. - acetaminophen (TYLENOL) 500 mg tablet Take 2 tablets by mouth every 8 hours. - magnesium oxide (MAG-OX) 400 mg (241.3 mg magnesium) tablet Take 1 tablet by mouth once daily. - polyethylene glycol 3350 (MIRALAX, GLYCOLAX) 17 gram packet Take 17 g by mouth once daily. Dissolve dose in 4 - 8 ounces of liquid and take as directed. - Cholecalciferol, Vitamin D3, 50 mcg (2,000 unit) cap Take by mouth once daily. Problem List As Of Date 05/30/2025 Noted Resolved Essential hypertension, benign [I10] 03/20/2015 Hypothyroidism [E03.9] 03/20/2015 Atrial fibrillation (HCC) [I48.91] 07/29/2021 TIA (transient ischemic attack) [G45.9] 08/09/2021 GERD (gastroesophageal reflux disease) [K21.9] 08/09/2021 Vertigo [R42] 08/09/2021 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] 08/25/2021 Syncope [R55] 09/07/2023 09/08/2023 Syncope and collapse [R55] 09/07/2023 09/08/2023 Chronic diastolic CHF (congestive heart failure*09/08/2023 Hx-TIA (transient ischemic attack) [Z86.73] 08/09/2024 Hyponatremia [E87.1] 08/09/2024 Elevated troponin level [R79.89] 08/09/2024 Fall at home, sequela [W19.XXXS, Y92.009] 08/09/2024 Left hip pain [M25.552] 08/09/2024 Hematoma of left thigh [S70.12XA] 08/09/2024 Hamstring injury, left, initial encounter [S76.*08/10/2024 Encounter Status:Closed by NICOLE FOREMAN on 05/30/25 Normal [facility] INR (POC)on 05-30-2025 INR Coag (PPP) [Relative time] 3.4 {INR} High 0.8 - 1.2 [facility] Internal Quality Check Acceptable [facility] Interpretation and review of laboratory results Abnormal [facility] Location:[facility], [address] [place] [address], [address] [facility] POINT OF CARE [facility] CNNURSEon 05-22-2025 CNNURSE Nurse Visit (AGINTML W) HELEN LIEBERMAN ([id number]) 1935 F Date Time Provider Department 05/22/25 8:20 AM NURSE CASSANDRA HUSSEIN During your visit today, we recorded the following information about you: Blood pressure 124/70 Charisse Lange MA 05/22/2025 8:36 AM Signed Patient here for INR check. Last INR was 2.8 on 04/17/25. Patient is currently taking coumadin 2 mg Tuesday, and 3 mg all other days, denies missing any doses. Patient's INR today was 3.8. Per conversation with Tanya Lozano CNP patient informed to hold coumadin today then take 2 mg Tuesday, Tuesday, Tuesday and 3 mg all other days, recheck next . Written copy of directions given to patient. Charisse Lange MA Allergies As of Date: 05/22/2025 Noted Allergy Reaction AMLODIPINE 08/11/2024 14 - Other: See Comments Comments: Very intense leg cramps PENICILLINS 07/24/2021 16 - Unknown SULFA (SULFONAMIDE ANTIBIOTICS) 07/24/2021 16 - Unknown TETRACYCLINES 07/24/2021 16 - Unknown Date Reviewed: 04/27/2025 Reviewed by: Lauren Martinez, RN - Fully Assessed Reason for Visit: Coumadin/INR [1207] Primary Visit Diagnosis:Paroxysmal atrial fibrillation (HCC) [I48.0] Order(s):INR (POC) [[id number]] Order #: [id number] Prescriptions as of 05/22/2025 - warfarin (COUMADIN) 2 mg tablet Take 1 tablet by mouth daily as directed. - levothyroxine (SYNTHROID) 75 mcg tablet Take 1 tablet by mouth daily before breakfast. - losartan (COZAAR) 100 mg tablet Take 1 tablet by mouth once daily. - carvedilol (COREG) 25 mg tablet 1 tablet with food Orally Twice a day for 90 days - pantoprazole DR (PROTONIX) 40 mg tablet Take 1 tablet by mouth once daily. - warfarin (COUMADIN) 3 mg tablet Take 1 tablet by mouth once daily. - acetaminophen (TYLENOL) 500 mg tablet Take 2 tablets by mouth every 8 hours. - magnesium oxide (MAG-OX) 400 mg (241.3 mg magnesium) tablet Take 1 tablet by mouth once daily. - polyethylene glycol 3350 (MIRALAX, GLYCOLAX) 17 gram packet Take 17 g by mouth once daily. Dissolve dose in 4 - 8 ounces of liquid and take as directed. - Cholecalciferol, Vitamin D3, 50 mcg (2,000 unit) cap Take by mouth once daily. Problem List As Of Date 05/22/2025 Noted Resolved Essential hypertension, benign [I10] 03/20/2015 Hypothyroidism [E03.9] 03/20/2015 Atrial fibrillation (HCC) [I48.91] 07/29/2021 TIA (transient ischemic attack) [G45.9] 08/09/2021 GERD (gastroesophageal reflux disease) [K21.9] 08/09/2021 Vertigo [R42] 08/09/2021 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] 08/25/2021 Syncope [R55] 09/07/2023 09/08/2023 Syncope and collapse [R55] 09/07/2023 09/08/2023 Chronic diastolic CHF (congestive heart failure*09/08/2023 Hx-TIA (transient ischemic attack) [Z86.73] 08/09/2024 Hyponatremia [E87.1] 08/09/2024 Elevated troponin level [R79.89] 08/09/2024 Fall at home, sequela [W19.XXXS, Y92.009] 08/09/2024 Left hip pain [M25.552] 08/09/2024 Hematoma of left thigh [S70.12XA] 08/09/2024 Hamstring injury, left, initial encounter [S76.*08/10/2024 Encounter Status:Closed by CHARISSE LANGE on 05/22/25 [facility] ALLIED HEALTHon 04-27-2025 ALLIED HEALTH HNO ID: [id number] Author: VANCE MAYORGA Tech Service: Radiology Author Type: Digital Project Manager Type: Allied Health Filed: 04/27/2025 18:58 Note Text: Radiology Service Progress Note PATIENT NAME: Helen Lieberman DATE OF SERVICE: April 27, 2025 TIME: 6:58 PM PATIENT IDENTITY VERIFICATION COMPLETED USING TWO (2) IDENTIFIERS: Name and Date of confirmed by patient verbally and Name and Date of confirmed by identification band. FALL SCREENING: Has the patient had 2 falls in the last year or 1 fall with injury or currently using an Ambulatory Assistive Device (Walker, Cane, Wheelchair, Crutches, etc.)? Emergency Room Patient: Screened in ED PATIENT GENDER DATA: Assigned female at . status: : No status: NO. PATIENT RELEVANT IMPLANT DATA REVIEWED: Yes PATIENT PRESENTS WITH AN IMPLANTABLE OR ATTACHED LAB SCIENTIST: No RADIOLOGY DEPARTMENT: CT; Exam(s) Completed: Brain PERIPHERAL IV DATA: Inpatient: see LDA documentation SIGNED BY: Wanda Lawson April 27, 2025 6:58 PM [facility] CT BRAIN WO IVCONon 04-27-[address] BRAIN WO IVCON * * *Final Report* * * DATE OF EXAM: Apr 27 2025 6:59PM [facility] 0504 - CT BRAIN WO IVCON / PROCEDURE REASON: Head trauma, moderate-severe * * * * Physician Interpretation * * * * EXAMINATION: CT BRAIN WO IVCON CLINICAL HISTORY: Head trauma TECHNIQUE: Serial axial images without IV contrast were obtained from the vertex to the foramen magnum. MQ: [id number] CT Radiation dose: Integrated Dose-Length Product (DLP) for this visit = 658 mGy*cm CT Dose Reduction Employed: Automated exposure control (AEC) COMPARISON: CT brain 04/01/2025 RESULT: Post-operative change: None. Acute change: No evidence of an acute infarct or other acute parenchymal process. Hemorrhage: No evidence of acute intracranial hemorrhage. ECASS hemorrhagic transformation score: Not Applicable Mass Lesion / Mass Effect: There is no evidence of an intracranial mass or extraaxial fluid collection. No significant mass effect. Chronic change: Scattered patchy foci of low attenuation are present within the supratentorial white matter, a nonspecific finding that most commonly represents mild small vessel disease. Similar lacunar infarct of the right basal ganglia. Parenchyma: There is mild generalized volume loss. The brain parenchyma is otherwise within normal limits for age. Ventricles: Ventricular enlargement concordant with the degree of parenchymal volume loss. Paranasal sinuses and skull base: The visualized paranasal sinuses are grossly clear. The skull base and imaged soft tissues are unremarkable. Localizer images: Non-diagnostic. IMPRESSION: No evidence of acute intracranial process. 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: ANSHU Transcribe Date/Time: Apr 27 2025 8:48P Dictated by : ALICIA BUI MD This examination was interpreted and the report reviewed and electronically signed by: ALICIA BUI MD on Apr 27 2025 9:02PM EST [id number] [facility] ED NOTEon 04-27-2025 ED NOTE HNO ID: [id number] Author: KYE KEARNEY RN Service: ? Author Type: Registered Nurse Type: ED Notes Filed: 04/27/2025 21:41 Note Text: Discharge instructions reviewed with patient via teachback. Pt verbalizes understanding. Pt awake and alert, respirations regular and unlabored. No further questions for this RN. [facility] ED NOTE HNO ID: [id number] Author: KYE KEARNEY, TASNEEM Service: ? Author Type: Registered Nurse Type: ED Notes Filed: 04/27/2025 21:27 Note Text: MD notified of patient's BP. Night time meds to be ordered for patient. [facility] ED NOTE HNO ID: [id number] Author: OTIS RÍOS RN Service: ? Author Type: Registered Nurse Type: ED Notes Filed: 04/27/2025 17:14 Note Text: Bed: ED-12 Expected date: Expected time: Means of arrival: Comments: 89 R shoulder dislocation [facility] ED PROV NOTEon 04-27-2025 ED PROV NOTE HNO ID: [id number] Author: ARTURO REYES DO Service: Emergency Medicine Author Type: Physician Type: ED Provider Notes Filed: 04/27/2025 21:18 Note Text: ED Provider Note Patient Name: Helen Lieberman : 1935 SERVICE DATE: 04/27/25 History Patient presents with: Fall Shoulder Dislocation: Pt ABEL [place] FD from home. Pt fell after chair went out from under her, causing her to fall to her right. Pt hit right side of head (-LOC), and right shoulder. Pt has obvious right shoulder deformity. 89-year-old female with a history of atrial fibrillation on Coumadin presenting to the ER today after a mechanical fall where she fell backwards after her chair on wheels rolled out from her hitting her head as well as having shoulder injury. Concern right shoulder popped out. Denies any loss consciousness. Has a small lump on the head but denies any significant headache. She has been able to ambulate since PAST MEDICAL HISTORY Diagnosis Date Atrial fibrillation (HCC) 07/29/2021 Essential hypertension Gallstone pancreatitis (HCC) Pancreatitis (HCC) PAST SURGICAL HISTORY Procedure Laterality Date SECTION HX x4 FOOT SURGERY HX right side HERNIA REPAIR HX KNEE SURGERY HX Right REMOVAL GALLBLADDER FAMILY HISTORY Problem Relation Age of Onset Stroke Mother other (tia) Sister Diabetes Sister Dementia Sister Lung Cancer Sister Stroke Sister Hypertension Sister Heart Brother Social History Tobacco Use Smoking status: Never Smokeless tobacco: Never Vaping Use Vaping status: Never Used Substance and Sexual Activity Alcohol use: Yes Comment: Rarely Drug use: Never Sexual activity: Not on file ALLERGIES Allergen Reactions Amlodipine Other: See Comments Very intense leg cramps Penicillins Unknown Sulfa (Sulfonamide * Unknown Tetracyclines Unknown Review of Systems Allergic/Immunologic: Negative for immunocompromised state. All other systems reviewed and are negative. Physical Exam Vitals [04/27/25 1716] BP Pulse Temp Temp src Resp SpO2 Weight Height (!) 226/115 (!) 102 36.6 ?C (97.9 ?F) Oral 16 98 % 53.9 kg (118 lb 13.3 oz) -- Physical Exam Vitals and nursing note reviewed. Constitutional: General: She is not in acute distress. Appearance: She is well-developed. She is not ill-appearing. HENT: Head: Normocephalic. Comments: Small cephalohematoma to back right side of head. No lacerations. Otherwise atraumatic with no Yarbrough sign or raccoon eyes Eyes: Conjunctiva/sclera: Conjunctivae normal. Neck: Thyroid: No thyromegaly. Trachea: No tracheal deviation. Cardiovascular: Rate and Rhythm: Normal rate. Pulmonary: Effort: Pulmonary effort is normal. No respiratory distress. Abdominal: General: There is no distension. Musculoskeletal: General: Normal range of motion. Cervical back: Normal range of motion. Comments: Right shoulder: Mild tenderness to palpation of the right anterior shoulder as well as the clavicle. No bony crepitus. No obvious deformity. Neurovascular intact distal to Skin: General: Skin is warm and dry. Capillary Refill: Capillary refill takes less than 2 seconds. Findings: No rash. Neurological: General: No focal deficit present. Mental Status: She is alert and oriented to person, place, and time. Comments: Gross motor and sensation intact in all 4 extremities within limitations of not ranging right shoulder. Psychiatric: Behavior: Behavior normal. Diagnostic Testing ED Labs Ordered and Reviewed - No data to display Procedures ED Course / Clinical Impression ED Course as of 04/27/252116 Arturo Reyes's Documentation Sat Apr 27, 20251945 XR shoulder right: No evidence of acute fracture noting limited evaluation secondary to osteopenia. High riding humeral head suggesting chronic rotator cuff tendinopathy. 2108 CT brain: No evidence of acute intracranial process. Clinical Impressions as of 04/27/252116 Fall, initial encounter Injury of right shoulder, initial encounter Hypertension, unspecified type MDM / Disposition / Plan 89-year-old female with a history of atrial fibrillation on Coumadin presenting to the ER today after a mechanical fall where she fell backwards after her chair on wheels rolled out from her hitting her head as well as having shoulder injury. Vital signs consistent with hypertension and tachycardia Exam and history as noted above X-rays negative for acute fracture or dislocation. CT scan is negative for acute intracranial hemorrhage Patient's blood pressure remained elevated I gave her home dose but she is denying any other symptoms and adamantly says she needs to be discharged. I have discussed my concerns with her as well as told her I do not want her in a sling more than a day or 2 and to start getting range of motion back. She is going to keep a close eye on the swelling on the clavic (more content not included)... Normal [facility] XR SHLDR >/=3V AP/AARON AP/OTH R RTon 04-27-2025 XR SHLDR >/=3V AP/AARON AP/OTHR RT * * *Final Report* * * DATE OF EXAM: Apr 27 2025 6:01PM MDX 5253 - XR SHLDR >/=3V AP/AARON AP/OTHR RT / PROCEDURE REASON: Trauma * * * * Physician Interpretation * * * * EXAMINATION: XR SHLDR >/=3V AP/AARON AP/OTHR RT CLINICAL HISTORY: Trauma Pain. Technique: XR SHLDR >/=3V AP/AARON AP/OTHR RT Comparison: None. RESULT: Diffuse osseous demineralization is noted, which can limit evaluation for acute osseous changes. Within this limitation, there are no acute osseous changes. High riding humeral head is noted with acetabularization of the inferior acromial surface. This is consistent with sequela of chronic rotator cuff tendinopathy. Moderate acromioclavicular osteoarthrosis. IMPRESSION: No evidence of acute fracture noting limited evaluation secondary to osteopenia. High riding humeral head suggesting chronic rotator cuff tendinopathy. 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: ANSHU Transcribe Date/Time: Apr 27 2025 7:40P Dictated by : ALICIA BUI MD This examination was interpreted and the report reviewed and electronically signed by: ALICIA BUI MD on Apr 27 2025 7:42PM EST [id number] [facility] Nurse Visit (AGINTML W) HELEN LIEBERMAN ([id number]) 1935 F Date Time Provider Department 04/17/25 8:20 AM NURSE CASSANDRA PRADO AGINTMLW During your visit today, we recorded the following information about you: Blood pressure 128/76 Carlos Gonzáles MA 04/17/2025 8:34 AM Signed Pt. Identified by name and . Patient came in for INR. Last INR was 2.8 on March 18. Patient took 2mg Tuesday and and 3mg rest of days. Today INR was 2.8. patient advised to continue same dose and repeat in one month. LEIGH Portillo Charlene M, STREET ROLLER ENGINEER.COLLEGE ATHLETE 04/17/2025 12:48 PM Signed Continue current dose reheck one month Referring Provider: TANYA LOZANO [[id number]] Allergies As of Date: 04/17/2025 Noted Allergy Reaction AMLODIPINE 08/11/2024 14 - Other: See Comments Comments: Very intense leg cramps PENICILLINS 07/24/2021 16 - Unknown SULFA (SULFONAMIDE ANTIBIOTICS) 07/24/2021 16 - Unknown TETRACYCLINES 07/24/2021 16 - Unknown Date Reviewed: 04/01/2025 Reviewed by: Otis Rutherford RN - Fully Assessed Reason for Visit: Nurse Visit [792] Primary Visit Diagnosis:Paroxysmal atrial fibrillation (HCC) [I48.0] Order(s):INR (POC) [4852443] Order #: [id number] Prescriptions as of 04/17/2025 - warfarin (COUMADIN) 2 mg tablet Take 1 tablet by mouth daily as directed. - levothyroxine (SYNTHROID) 75 mcg tablet Take 1 tablet by mouth daily before breakfast. - losartan (COZAAR) 100 mg tablet Take 1 tablet by mouth once daily. - carvedilol (COREG) 25 mg tablet 1 tablet with food Orally Twice a day for 90 days - pantoprazole DR (PROTONIX) 40 mg tablet Take 1 tablet by mouth once daily. - warfarin (COUMADIN) 3 mg tablet Take 1 tablet by mouth once daily. - acetaminophen (TYLENOL) 500 mg tablet Take 2 tablets by mouth every 8 hours. - magnesium oxide (MAG-OX) 400 mg (241.3 mg magnesium) tablet Take 1 tablet by mouth once daily. - polyethylene glycol 3350 (MIRALAX, GLYCOLAX) 17 gram packet Take 17 g by mouth once daily. Dissolve dose in 4 - 8 ounces of liquid and take as directed. - Cholecalciferol, Vitamin D3, 50 mcg (2,000 unit) cap Take by mouth once daily. Problem List As Of Date 04/17/2025 Noted Resolved Essential hypertension, benign [I10] 03/20/2015 Hypothyroidism [E03.9] 03/20/2015 Atrial fibrillation (HCC) [I48.91] 07/29/2021 TIA (transient ischemic attack) [G45.9] 08/09/2021 GERD (gastroesophageal reflux disease) [K21.9] 08/09/2021 Vertigo [R42] 08/09/2021 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] 08/25/2021 Syncope [R55] 09/07/2023 09/08/2023 Syncope and collapse [R55] 09/07/2023 09/08/2023 Chronic diastolic CHF (congestive heart failure*09/08/2023 Hx-TIA (transient ischemic attack) [Z86.73] 08/09/2024 Hyponatremia [E87.1] 08/09/2024 Elevated troponin level [R79.89] 08/09/2024 Fall at home, sequela [W19.XXXS, Y92.009] 08/09/2024 Left hip pain [M25.552] 08/09/2024 Hematoma of left thigh [S70.12XA] 08/09/2024 Hamstring injury, left, initial encounter [S76.*08/10/2024 Encounter Status:Closed by CARLOS GONZÁLES on 04/17/25 [facility] ALLIED HEALTHon 04-01-2025 ALLIED HEALTH HNO ID: [id number] Author: MAR GOVEA RT(R) Service: Radiology Author Type: Digital Project Manager Type: Allied Health Filed: 04/01/2025 13:56 Note Text: Radiology Service Progress Note PATIENT NAME: Helen Lieberman DATE OF SERVICE: April 01, 2025 TIME: 1:56 PM PATIENT IDENTITY VERIFICATION COMPLETED USING TWO (2) IDENTIFIERS: Name and Date of confirmed by patient verbally. FALL SCREENING: Has the patient had 2 falls in the last year or 1 fall with injury or currently using an Ambulatory Assistive Device (Walker, Cane, Wheelchair, Crutches, etc.)? No PATIENT GENDER DATA: Assigned female at . status: : No status: NO. PATIENT RELEVANT IMPLANT DATA REVIEWED: Not Applicable PATIENT PRESENTS WITH AN IMPLANTABLE OR ATTACHED LAB SCIENTIST: No RADIOLOGY DEPARTMENT: CT; Exam(s) Completed: Brain and Spine PERIPHERAL IV DATA: Not applicable SIGNED BY: RT Norberto(R) April 01, 2025 1:56 PM [facility] CT BRAIN WO IVCONon 04-01-[address] BRAIN WO IVCON * * *Final Report* * * DATE OF EXAM: Apr 01 2025 2:01PM [facility] 0504 - CT BRAIN WO IVCON / PROCEDURE REASON: Head trauma, minor (Age >= 65y) * * * * Physician Interpretation * * * * EXAMINATION: CT BRAIN WO IVCON CLINICAL HISTORY: Head trauma TECHNIQUE: Serial axial images without IV contrast were obtained from the vertex to the foramen magnum. MQ: [id number]_3 CT Radiation dose: Integrated Dose-Length Product (DLP) for this visit = 1069 mGy*cm CT Dose Reduction Employed: Automated exposure control(AEC) and iterative recon COMPARISON: Head CT 09/07/2023 and 06/15/2023 RESULT: Localizer images: No additional findings. Post-operative change: None. Acute change: No evidence of an acute infarct or other acute parenchymal process. Hemorrhage: No evidence of acute intracranial hemorrhage. ECASS hemorrhagic transformation score: Not Applicable Mass Lesion / Mass Effect: There is no evidence of an intracranial mass or extraaxial fluid collection. No significant mass effect. Chronic change: Patchy foci of low attenuation are present within the supratentorial white matter, a nonspecific finding that most commonly represents moderate small vessel disease. Parenchyma: There is mild generalized volume loss. The brain parenchyma is otherwise within normal limits for age. Ventricles: The ventricles are within normal limits of size and configuration for age. Paranasal sinuses and skull base: The visualized paranasal sinuses are grossly clear. The skull base and imaged soft tissues are unremarkable. Other: Superficial soft tissue swelling over the right frontal region. IMPRESSION: No evidence of acute intracranial process. Superficial soft tissue swelling over the right frontal region. 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: PSCB Transcribe Date/Time: Apr 01 2025 2:40P Dictated by : LANI MOORE MD This examination was interpreted and the report reviewed and electronically signed by: LANI MOORE MD on Apr 01 2025 2:46PM EST [id number] [facility] CT CERVICAL SPINE WO IVCONon 04-01-2025 CT CERVICAL SPINE WO IVCON * * *Final Report* * * DATE OF EXAM: Apr 01 2025 2:01PM [facility] 0505 - CT CERVICAL SPINE WO IVCON / PROCEDURE REASON: Neck trauma (Age >= 65y) * * * * Physician Interpretation * * * * EXAMINATION: CT CERVICAL SPINE WO IVCON CLINICAL HISTORY: Neck trauma (Age >= 65y) TECHNIQUE: Spiral, high resolution axial unenhanced images were obtained from the skull base to the cervicothoracic junction with sagittal and coronal planar reconstructions. MQ: [id number] CT Radiation dose: Integrated CT Dose-Length Product (DLP) for this visit = 1069 mGy*cm CT Dose Reduction Employed: Automated exposure control(AEC) and iterative recon COMPARISON: Head CT 06/23/2023. RESULT: Counting reference: Craniocervical junction. Anatomic Variants: None. Business Planning Manager (topogram) images: No additional findings. Alignment: Alignment is anatomic. Craniocervical junction: Craniocervical junction is normal. Osseous structures/fracture: No evidence of a lytic or blastic process in the visualized spine. No evidence of acute or chronic fracture. Cervical soft tissues: The paraspinal soft tissues are within normal limits. Degenerative changes: Moderate disc space narrowing C3-C6. Severe disc space narrowing C6-C7. Other: Atherosclerotic calcification in both carotid bulbs. IMPRESSION: No evidence of fracture or traumatic malalignment. Anatomic Variant: None. Assume 7 cervical vertebrae with counting from the craniocervical junction. 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: PSCB Transcribe Date/Time: Apr 01 2025 2:46P Dictated by : LANI MOORE MD This examination was interpreted and the report reviewed and electronically signed by: LANI MOORE MD on Apr 01 2025 2:51PM EST [id number] [facility] ED NOTEon 04-01-2025 ED NOTE HNO ID: [id number] Author: OTIS RUTHERFORD, TASNEEM Service: Emergency Medicine Author Type: Registered Nurse Type: ED Notes Filed: 04/01/2025 15:32 Note Text: Pt ambulated at this time with minimal assistance. [facility] ED NOTE HNO ID: [id number] Author: ELEANOR KENDRICK, TASNEEM Service: ? Author Type: Registered Nurse Type: ED Notes Filed: 04/01/2025 14:00 Note Text: Bed: [facility] Expected date: Expected time: Means of arrival: Comments: trauma [facility] ED NOTE HNO ID: [id number] Author: YAN VASQUEZ, TASNEEM Service: Emergency Medicine Author Type: Registered Nurse Type: ED Notes Filed: 04/01/2025 13:45 Note Text: Awaiting CT availability. [facility] ED NOTE HNO ID: [id number] Author: RACHEL WADE Medic Service: ? Author Type: Remelter and Digital Project Manager Type: ED Notes Filed: 04/01/2025 13:26 Note Text[facility]pected date: 04/01/25 Expected time: 1:09 PM Means of arrival: [employer]/EMS Comments: [place] T3 fall [facility] ED PROV NOTEon 04-01-2025 ED PROV NOTE HNO ID: [id number] Author: DIANA NOGUEIRA MD Service: Emergency Medicine Author Type: Resident Type: ED Provider Notes Filed: 04/01/2025 20:45 Note Text: Attestation signed by Diana Nogueira MD at 04/01/2025 8:45 PM Attending Note I evaluated the patient and personally participated in the rogers components. I agree with the resident's findings and plan as documented and have discussed the case and management of the patient's care with the resident. Patient presents as a truama level 3 for fall on thinners, noted scalp abrasion, minimal neck pain which she's hat before, neurologically intact, minimal left hip pain but negative log roll. Patient received CT of the head and neck both negative for acute findings, the patient will be discharged in stable condition, X-ray negative for fx. Critical Care I spent a total of 30 minutes of critical care time in the evaluation and management of this patient. This was necessary to treat or prevent deterioration of the following condition(s): Multiple trauma, which the patient had and/or has a high probability of suddenly developing. The patient received Consultation by Trauma during the time that critical care was provided.I discussed the plan of care with the RESIDENT and agree with the findings documented. Critical care time excludes separately billed procedures. Diana Nogueira MD Signature: Diana Nogueira MD Date: 04/01/2025 Time: 8:38 PM ED Provider Note Patient Name: Helen Lieberman : 1935 SERVICE DATE: 04/01/25 History No chief complaint on file. This is a 89-year-old female patient with history of atrial fibrillation on warfarin presenting to the emergency department today for evaluation following a fall. She reports that just prior to arrival she was walking into an office when she accidentally tripped over a step causing her to fall forward and strike her head against a wall. She did not lose consciousness. As stated previously she is on warfarin. She denies any preceding symptoms and states that the fall was purely mechanical. She denies any other symptoms at this time. PAST MEDICAL HISTORY Diagnosis Date Atrial fibrillation (HCC) 07/29/2021 Essential hypertension Gallstone pancreatitis (HCC) Pancreatitis (HCC) PAST SURGICAL HISTORY Procedure Laterality Date SECTION HX x4 FOOT SURGERY HX right side HERNIA REPAIR HX KNEE SURGERY HX Right REMOVAL GALLBLADDER FAMILY HISTORY Problem Relation Age of Onset Stroke Mother other (tia) Sister Diabetes Sister Dementia Sister Lung Cancer Sister Stroke Sister Hypertension Sister Heart Brother Social History Tobacco Use Smoking status: Never Smokeless tobacco: Never Vaping Use Vaping status: Never Used Substance and Sexual Activity Alcohol use: Yes Comment: Rarely Drug use: Never Sexual activity: Not on file ALLERGIES Allergen Reactions Amlodipine Other: See Comments Very intense leg cramps Penicillins Unknown Sulfa (Sulfonamide * Unknown Tetracyclines Unknown Review of Systems Constitutional: Negative for chills and fever. Respiratory: Negative for cough, chest tightness and shortness of breath. Cardiovascular: Negative for chest pain and palpitations. Gastrointestinal: Negative for abdominal pain, diarrhea, nausea and vomiting. Neurological: Negative for weakness and headaches. Physical Exam Vitals [04/01/25 1327] BP Pulse Temp Temp src Resp SpO2 Weight Height 184/109 (!) 107 36.3 ?C (97.4 ?F) Axillary 18 (!) 92 % 54.4 kg (120 lb) -- Physical Exam Vitals and nursing note reviewed. Constitutional: Appearance: Normal appearance. Interventions: Cervical collar in place. HENT: Head: Normocephalic and atraumatic. Comments: Superficial abrasion over the anterior scalp Right Ear: Tympanic membrane and ear canal normal. No hemotympanum. Left Ear: Tympanic membrane and ear canal normal. No hemotympanum. Nose: Nose normal. No nasal deformity, signs of injury or nasal tenderness. Right Nostril: No epistaxis or septal hematoma. Left Nostril: No epistaxis or septal hematoma. Mouth/Throat: Lips: [place]. Mouth: Mucous membranes are moist. Eyes: Pupils: Pupils are equal, round, and reactive to light. Cardiovascular: Rate and Rhythm: Normal rate and regular rhythm. Pulses: Radial pulses are 2+ on the right side and 2+ on the left side. Dorsalis pedis pulses are 2+ on the right side and 1+ on the left side. Heart sounds: Normal heart sounds. Pulmonary: Effort: Pulmonary effort is normal. No respiratory distress. Breath sounds: Normal breath sounds. No wheezing, rhonchi or rales. Chest: Chest wall: No tenderness. Abdominal: General: Abdomen is flat. Bowel sounds are normal. Palpations: Abdomen is soft. Tender (more content not included)... [facility] PT panel Coag (PPP)on 2024 INR Coag (PPP) [Relative time] 3.3 {INR} High 0.9-1.3 [facility] Comment on above: Order Comment: Speci men Type: BLOOD SPECIMEN Ordering Facility: [facility] Address: [address] [place] [address], [place] [address] Result Comment: Mirna min K Antagonist (VKA) Therapeutic Range: INR 2 to 3 (Target INR of 2.5) Note: For patients treated with VKA drugs, such as warfarin, the [place] [employer] 2012 Guideline recommends a therapeutic INR range of 2 to 3 (target INR of 2.5). This recommendation includes high-risk patients with antiphospholipid syndrome with previous arterial or venous thromboembolism, current-generation mechanical or bioprosthetic aortic heart valve replacement. Note: Patients with mechanical aortic valve replacement and additional risk factors for thromboembolic events (atrial fibrillation, previous thromboembolism, LV dysfunction, hypercoagulable conditions) or an older generation mechanical AVR (i.e., ball in-Cage) or any mechanical MVR should have a INR therapeutic range of 2.5 to 3.5 (target INR of 3). Kvng GH, et al. Chest 2012, 141:7S-47S Jayce RA et al. [facility] 2017, 70: 252-289 Performed By: #### 3 040-3, 59012-5 #### [facility] CLIA [id number] [address] [id number] [facility] PT Coag (PPP) [Time] 32.9 s High 9.7-13.0 [facility] Comment on above: Order Comment: Speci men Type: BLOOD SPECIMEN Ordering Facility: [facility] Address: [address] [place] [address] Performed By: #### 3 040-3, 40609-7 #### [facility] CLIA [id number] [address] [place] [address] [facility] XR HIP 3V PELV+ AP/LAT LTon 04-01-2025 XR HIP 3V PELV+ AP/LAT LT * * *Final Report* * * DATE OF EXAM: Apr 01 2025 1:45PM AKX 5351 - XR HIP 3V PELV+ AP/LAT LT / PROCEDURE REASON: Other * * * * Physician Interpretation * * * * EXAM TITLE: XR HIP 3V PELV+ AP/LAT LT DATE: 04/01/2025 COMPARISON: 08/09/2024 CLINICAL INDICATION/HISTORY: Trauma, fall, left hip pain TECHNIQUE: AP pelvis with AP and frog-leg lateral views of the left hip FINDINGS: Decreased bone density without acute bony abnormality. There is no fracture or insufficiency changes. No lytic or blastic lesion. No significant arthritic change at either hip and no femoral head AVN. There are vascular calcifications. IMPRESSION:Decreased bone density without acute bony abnormality. 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: ANSHU Transcribe Date/Time: Apr 01 2025 2:49P Dictated by : MACRINA SCHROEDER MD This examination was interpreted and the report reviewed and electronically signed by: MACRINA SCHROEDER MD on Apr 01 2025 2:51PM EST [id number] [facility] CNNURSEon 03-18-2025 CNNURSE Nurse Visit (AGINTML W) HELEN LIEBERMAN ([id number]) 1935 F Date Time Provider Department 03/18/25 8:20 AM NURSE CASSANDRA PRADO AGINTMLW During your visit today, we recorded the following information about you: Blood pressure 116/68 Willow Wilson MA 03/18/2025 12:46 PM Signed Patient here for INR check. Last INR was 3.2 on 03/04/25. Patient is currently taking coumadin 3 mg everyday except Tuesday and is 2 mg, and denies missing any doses. Patient's INR today was 2.8. Please advise. LEIGH Mcgrath Charlene M, APRN.RUBIO 03/18/2025 12:46 PM Signed Continue current dose recheck in one month. Willow Wilson MA 03/18/2025 12:46 PM Signed Called patient and informed of recommendations. Nurse visit scheduled INR calendar updated. Willow Wilson MA Referring Provider: TANYA LOZANO [[id number]] Allergies As of Date: 03/18/2025 Noted Allergy Reaction AMLODIPINE 08/11/2024 14 - Other: See Comments Comments: Very intense leg cramps PENICILLINS 07/24/2021 16 - Unknown SULFA (SULFONAMIDE ANTIBIOTICS) 07/24/2021 16 - Unknown TETRACYCLINES 07/24/2021 16 - Unknown Date Reviewed: 01/03/2025 Reviewed by: Tanya Lozano APRN.COLLEGE ATHLETE - Fully Assessed Reason for Visit: Coumadin/INR [1207] Primary Visit Diagnosis:Paroxysmal atrial fibrillation (HCC) [I48.0] Order(s):INR (POC) [4072303] Order #: [id number] INR (POC) [3187196] Order #: [id number]. #:[id number] 4513-LAB Prescriptions as of 03/18/2025 - warfarin (COUMADIN) 2 mg tablet Take 1 tablet by mouth daily as directed. - levothyroxine (SYNTHROID) 75 mcg tablet Take 1 tablet by mouth daily before breakfast. - losartan (COZAAR) 100 mg tablet Take 1 tablet by mouth once daily. - carvedilol (COREG) 25 mg tablet 1 tablet with food Orally Twice a day for 90 days - pantoprazole DR (PROTONIX) 40 mg tablet Take 1 tablet by mouth once daily. - warfarin (COUMADIN) 3 mg tablet Take 1 tablet by mouth once daily. - acetaminophen (TYLENOL) 500 mg tablet Take 2 tablets by mouth every 8 hours. - magnesium oxide (MAG-OX) 400 mg (241.3 mg magnesium) tablet Take 1 tablet by mouth once daily. - polyethylene glycol 3350 (MIRALAX, GLYCOLAX) 17 gram packet Take 17 g by mouth once daily. Dissolve dose in 4 - 8 ounces of liquid and take as directed. - Cholecalciferol, Vitamin D3, 50 mcg (2,000 unit) cap Take by mouth once daily. 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] 08/25/2021 Syncope [R55] 09/07/2023 09/08/2023 Syncope and collapse [R55] 09/07/2023 09/08/2023 Chronic diastolic CHF (congestive heart failure*09/08/2023 Hx-TIA (transient ischemic attack) [Z86.73] 08/09/2024 Hyponatremia [E87.1] 08/09/2024 Elevated troponin level [R79.89] 08/09/2024 Fall at home, sequela [W19.XXXS, Y92.009] 08/09/2024 Left hip pain [M25.552] 08/09/2024 Hematoma of left thigh [S70.12XA] 08/09/2024 Hamstring injury, left, initial encounter [S76.*08/10/2024 Encounter Status:Closed by TANYA LOZANO on 03/18/25 Normal [facility] INR (POC)on 03-18-2025 INR Coag (PPP) [Relative time] 2.8 {INR} High 0.8 - 1.2 [facility] Internal Quality Check Acceptable Cl [facility] Interpretation and review of laboratory results Abnormal [facility] Location:[facility], [address] [place] [address], [address] [place] [address] POINT OF CARE [facility] CNN[facility]on 03-04[facility]2025 [facility] (AGINTML W) HELEN LIEBERMAN ([id number]) 1935 F Date Time Provider Department 03/04/25 8:20 AM NURSE CASSANDRA PRADO AGINTMLW During your visit today, we recorded the following information about you: Blood pressure 146/66 Charisse Lange MA 03/04/2025 8:43 AM Signed Patient here for INR check. Last INR was 2.4 on 02/04/25. Patient is currently taking coumadin 2 mg on Tuesday and 3 mg all other days, denies missing any doses. Patient's INR today was 3.2. Per conversation with Tanya Lozano [employer]LETE patient informed to take coumadin 2 mg Tuesday, , 3 mg all other days and recheck in 2 weeks. Charisse Lange MA Allergies As of Date: 03/04/2025 Noted Allergy Reaction AMLODIPINE 08/11/2024 14 - Other: See Comments Comments: Very intense leg cramps PENICILLINS 07/24/2021 16 - Unknown SULFA (SULFONAMIDE ANTIBIOTICS) 07/24/2021 16 - Unknown TETRACYCLINES 07/24/2021 16 - Unknown Date Reviewed: 01/03/2025 Reviewed by: Tanya Lozano APRN.[employer] - Fully Assessed Reason for Visit: Coumadin/INR [1207] Primary Visit Diagnosis:Paroxysmal atrial fibrillation (HCC) [I48.0] Order(s):INR (POC) [6130249] Order #: [id number] Prescriptions as of 03/04/2025 - levothyroxine (SYNTHROID) 75 mcg tablet Take 1 tablet by mouth daily before breakfast. - losartan (COZAAR) 100 mg tablet Take 1 tablet by mouth once daily. - carvedilol (COREG) 25 mg tablet 1 tablet with food Orally Twice a day for 90 days - pantoprazole DR (PROTONIX) 40 mg tablet Take 1 tablet by mouth once daily. - warfarin (COUMADIN) 3 mg tablet Take 1 tablet by mouth once daily. - acetaminophen (TYLENOL) 500 mg tablet Take 2 tablets by mouth every 8 hours. - magnesium oxide (MAG-OX) 400 mg (241.3 mg magnesium) tablet Take 1 tablet by mouth once daily. - warfarin (COUMADIN) 2 mg tablet Take 1 tablet by mouth daily as directed. - polyethylene glycol 3350 (MIRALAX, GLYCOLAX) 17 gram packet Take 17 g by mouth once daily. Dissolve dose in 4 - 8 ounces of liquid and take as directed. - Cholecalciferol, Vitamin D3, 50 mcg (2,000 unit) cap Take by mouth once daily. 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] 08/25/2021 Syncope [R55] 09/07/2023 09/08/2023 Syncope and collapse [R55] 09/07/2023 09/08/2023 Chronic diastolic CHF (congestive heart failure*09/08/2023 Hx-TIA (transient ischemic attack) [Z86.73] 08/09/2024 Hyponatremia [E87.1] 08/09/2024 Elevated troponin level [R79.89] 08/09/2024 Fall at home, sequela [W19.XXXS, Y92.009] 08/09/2024 Left hip pain [M25.552] 08/09/2024 Hematoma of left thigh [S70.12XA] 08/09/2024 Hamstring injury, left, initial encounter [S76.*08/10/2024 Encounter Status:Closed by [facility]IS[facility] HELEN LIEBERMAN ([id number]) 1935 F Date Time Provider Department 02/04/25 8:20 AM NURSE CASSANDRA PRADO AGINTMLW During your visit today, we recorded the following information about you: Charisse Lange MA 02/04/2025 8:43 AM Signed Patient here for INR check. Last INR was 2.7 on 01/03/25. Patient is currently taking coumadin 2 mg on Sundays and 3 mg all other days, denies missing any doses. Patient's INR today was 2.4. Per conversation with Tanya Lozano CNP patient informed to continue current dose and recheck in 1 month. Charisse Lange MA Referring Provider: TANYA LOZANO [[id number]] Allergies As of Date: 02/04/2025 Noted Allergy Reaction AMLODIPINE 08/11/2024 14 - Other: See Comments Comments: Very intense leg cramps PENICILLINS 07/24/2021 16 - Unknown SULFA (SULFONAMIDE ANTIBIOTICS) 07/24/2021 16 - Unknown TETRACYCLINES 07/24/2021 16 - Unknown Date Reviewed: 01/03/2025 Reviewed by: Tanya Lozano APRN.[employer] - Fully Assessed Reason for Visit: Coumadin/INR [1207] Primary Visit Diagnosis:Paroxysmal atrial fibrillation (HCC) [I48.0] Order(s):INR (POC) [1639415] Order #: [id number] INR (POC) [7039059] Order #: [id number]. #:[id number] Prescriptions as of 02/04/2025 - losartan (COZAAR) 100 mg tablet Take 1 tablet by mouth once daily. - carvedilol (COREG) 25 mg tablet 1 tablet with food Orally Twice a day for 90 days - pantoprazole DR (PROTONIX) 40 mg tablet Take 1 tablet by mouth once daily. - warfarin (COUMADIN) 3 mg tablet Take 1 tablet by mouth once daily. - acetaminophen (TYLENOL) 500 mg tablet Take 2 tablets by mouth every 8 hours. - magnesium oxide (MAG-OX) 400 mg (241.3 mg magnesium) tablet Take 1 tablet by mouth once daily. - levothyroxine (SYNTHROID) 75 mcg tablet TAKE 1 TABLET BY MOUTH IN THE MORNING ON AN EMPTY STOMACH - warfarin (COUMADIN) 2 mg tablet Take 1 tablet by mouth daily as directed. - polyethylene glycol 3350 (MIRALAX, GLYCOLAX) 17 gram packet Take 17 g by mouth once daily. Dissolve dose in 4 - 8 ounces of liquid and take as directed. - Cholecalciferol, Vitamin D3, 50 mcg (2,000 unit) cap Take by mouth once daily. 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] 08/25/2021 Syncope [R55] 09/07/2023 09/08/2023 Syncope and collapse [R55] 09/07/2023 09/08/2023 Chronic diastolic CHF (congestive heart failure*09/08/2023 Hx-TIA (transient ischemic attack) [Z86.73] 08/09/2024 Hyponatremia [E87.1] 08/09/2024 Elevated troponin level [R79.89] 08/09/2024 Fall at home, sequela [W19.XXXS, Y92.009] 08/09/2024 Left hip pain [M25.552] 08/09/2024 Hematoma of left thigh [S70.12XA] 08/09/2024 Hamstring injury, left, initial encounter [S76.*08/10/2024 Encounter Status:Closed by CHARISSE LANGE on 02/04/25 Normal [facility] INR (POC)on 02-04-2025 INR Coag (PPP) [Relative time] 2.4 {INR} High 0.8 - 1.2 [facility] Internal Quality Check Acceptable Cl [facility] Interpretation and review of laboratory results Abnormal [facility] Location:[facility], [address] [place] [address], [address] [place] [address] POINT OF CARE [facility] CNOVon 01-03-2025 CNOV Office Visit (AGINTM LW) HELEN LIEBERMAN ([id number]) 1935 F Date Time Provider Department 01/03/25 7:40 AM TANYA LOZANOMLW During your visit today, we recorded the following information about you: Pulse Respiration Blood pressure Weight 75/minute 18/minute 120/50 56.1 kg Height 1.575 m Tanya Lozano, [facility] 01/03/2025 8:43 AM Signed SUBJECTIVE: Helen Lieberman is a 89 year old female who presents in follow up of HTN. PMH hypothyroidism, afib, GERD,pancreatitis, urinary incontinence, IBS. Patient denies changes in health since last office visit. Reports feeling well. Denies concerns or complaints today. She reports having skin cancer biopsy yesterday with DR Aguirre on top of head near forehead. She reports since she has felt weak since. States she feels woobly. Denies changes in vision or BARRAZA. I reviewed patients past medical, surgical, social, and family histories today and updated chart. Allergies, chronic medications, and supplements were also reviewed and list is now up to date. HTN: Ms. Lieberman indicates that she is feeling well and denies any symptoms referable to elevated blood pressure. Specifically denies headache, chest pain, palpitations, dyspnea, peripheral edema, claudication symptoms, orthopnea, fatigue, and PND. Patient denies any side effects of her medication(s) and is compliant with their regimen. She does check BP's away from this office with average BP's in the of 106-186/60s range. Very labile. Helen denies regular aerobic exercise. She watches her diet for sodium, low fat and low cholesterol most of the time. She is taking coreg 25 mg twice daily, losartan 100 mg daily. Last 3 Encounter BP Readings: Date: BP: 12/19/2024 168/70 12/03/2024 180/72 10/04/2024 146/60 Hyponatremia: She is seeing wanigan clerk Dr Ruiz for management for this. She was last seen 12/06/24. Afib: reports being dx 16 yrs ago. She reports she never followed with marketing copywriter. She is taking coreg twice daily and is on coumadin. She reports if she misses her medication she can feel it but otherwise she is asymptomatic. She is taking coumadin 2 mg on Sundays and 3 mg all other days. GERD: chronic stable. She is on Protonix daily for this. She sees Dr Casillas for this. Her last EGD was in February. Reports well controlled on Protonix Hypothyroidism: reports dx years ago. She is taking levothyroxine 75 mcg daily on an empty stomach. Denies symptoms referable to thyroid. Last TSH 3/22/25 2.29. IBS: chronic, reports episodic flare ups. She has tried Low FODMAP diet. She does see Dr Casillas as well for this. He did give her rx for levsin. She reports this as stable Osteoporosis: noted on bone density 2022. States she was told by Dr Roe never to take fosamax. She is currently not taking anything for this. She does take vit D. Does not take calcium. Denies any fractures. Pancreatitis: She did have ERCP with stent placement on 08/07/21 for biliary obstruction at [facility]. Reports she has had 3 ERCPs. First was with Bon 06/02/21, second was with Dr Casillas 07/[address] Vazquez 08/07. Had TIA 08/09/21. TIA: patient presented to the ER for evaluation of sudden onset dizziness with speech difficulties s/p pancreatic stent placment on 08/07/21. Symptoms completely resolved upon arrival to the ER. VS on arrival HR 68, BP 206/90, RR 17. Na 128, Cr 0.85, Glucose 117, ALT 92, AST 55, NT ProBNP 966, HS Troponin T 20. CBC unremarkable. 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 We did repeat CT brain that was negative for acute abnormality. US carotids showed moderate volume bilateral plaque but less than 30% stenosis bilateral internal carotid arteries. ECHO completed and negative for PFO or atrial thrombus. Suspect she had a TIA. She was started on DAPT with ASA and Plavix and Crestor 10mg daily (had intolerance to statins in the past). Neurology recommended ASA + Anticoagulation but the patient was hesitant given recent ERCP and advisement to avoid blood thinners,and after discharge She started coumadin as previously recommended by stroke Neurologist in the hospital , She is allergic to statins cannot take statin ,even the small dose of Crestor caused stomach problems She denies new headaches, neck or back pain. No new focal weakness, numbness or paresthesias. No new problems with concentration, memory, language or confusion. No new blurry, double or loss of vision, No new imbalance, frequent falls or incoordination. No bowel or bladder incontinence. No saddle anesthesia. No muscular atrophy or fasciculations. Preventative: last colonoscopy 07/[address] Casillas. Last bone density 07/2023. She takes vit D. She does not take calcium. Never smoked. Declines mammogram Some elements (more content not included)... Normal [facility] INR (POC)on 01-03-2025 INR Coag (PPP) [Relative time] 2.7 {INR} High 0.8 - 1.2 [facility] Internal Quality Check Acceptable Cl [facility] Interpretation and review of laboratory results Abnormal [facility] Location:[facility], [address] [place] [address], [address] [place] [address] POINT OF CARE [facility] CNOVon 12-19-2024 CNOV Office Visit (AGINTM LW) HELEN LIEBERMAN ([id number]) 1935 F Date Time Provider Department 12/19/24 10:40 AM TANYA LOZANOMLSanjeev During your visit today, we recorded the following information about you: Pulse Respiration Blood pressure Weight 52/minute 18/minute 168/70 56 kg Height 1.575 m Tanya Lozano APRN.[employer] 12/19/2024 12:37 PM Signed This note was created using NoteWriter. Subjective Helen Lieberman is a 89 year old female here today for BP follow up. Nephrology Dr Streeter increased her coreg to 25 mg twice daily. She is also taking losartan 50 mg 2 tabs daily. She forgot her BP log at home. Home BP 140-150s/60s in evening. She reports in am 180s/80s. She reports her BP readings have come down since increasing her medications. She just increased her coreg on 12/07/24. ALLERGIES Allergen Reactions Amlodipine Other: See Comments Very intense leg cramps Penicillins Unknown Sulfa (Sulfonamide * Unknown Tetracyclines Unknown Current Outpatient Medications Medication Sig Dispense Refill carvedilol (COREG) 25 mg tablet 1 tablet with food Orally Twice a day for 90 days losartan (COZAAR) 50 mg tablet Take 2 tablets by mouth once daily. [address] (PROTONIX) 40 mg tablet Take 1 tablet by mouth once daily. 90 tablet 3 warfarin (COUMADIN) 3 mg tablet Take 1 tablet by mouth once daily. 90 tablet 3 acetaminophen (TYLENOL) 500 mg tablet Take 2 tablets by mouth every 8 hours. magnesium oxide (MAG-OX) 400 mg (241.3 mg magnesium) tablet Take 1 tablet by mouth once daily. levothyroxine (SYNTHROID) 75 mcg tablet TAKE 1 TABLET BY MOUTH IN THE MORNING ON AN EMPTY STOMACH 270 tablet 0 warfarin (COUMADIN) 2 mg tablet Take 1 tablet by mouth daily as directed. 90 tablet 1 polyethylene glycol 3350 (MIRALAX, GLYCOLAX) 17 gram packet Take 17 g by mouth once daily. Dissolve dose in 4 - 8 ounces of liquid and take as directed. Cholecalciferol, Vitamin D3, 50 mcg (2,000 unit) cap Take by mouth once daily. No current facility-administered medications for this visit. ACTIVE PROBLEM LIST Essential Hypertension, Benign Hypothyroidism Atrial Fibrillation (Hcc) Tia (Transient Ischemic Attack) Gerd (Gastroesophageal Reflux Disease) Vertigo Red Blood Cell Antibody Positive Chronic Diastolic Chf (Congestive Heart Failure) (Hcc) Hx-Tia (Transient Ischemic Attack) Hyponatremia Elevated Troponin Level Fall At Home, Sequela Left Hip Pain Hematoma of Left Thigh Hamstring Injury, Left, Initial Encounter PAST MEDICAL HISTORY Diagnosis Date Atrial fibrillation (HCC) 07/29/2021 Essential hypertension Gallstone pancreatitis Pancreatitis PAST SURGICAL HISTORY Procedure Laterality Date SECTION HX x4 FOOT SURGERY HX right side HERNIA REPAIR HX KNEE SURGERY HX Right REMOVAL GALLBLADDER Social History Tobacco Use Smoking status: Never Smokeless tobacco: Never Vaping Use Vaping status: Never Used Substance Use Topics Alcohol use: Yes Comment: Rarely Drug use: Never Family History Problem Relation Age of Onset Stroke Mother other (tia) Sister Diabetes Sister Dementia Sister Lung Cancer Sister Stroke Sister Hypertension Sister Heart Brother Review of Systems Constitutional: Negative for chills, fatigue and fever. HENT: Positive for sinus pressure and sinus pain. Respiratory: Negative for cough, shortness of breath and wheezing. Cardiovascular: Negative for chest pain, palpitations and leg swelling. Neurological: Negative for dizziness, speech difficulty, weakness, light-headedness, numbness and headaches. Objective BP 172/70 Pulse (!) 49 Resp 18 Ht 157.5 cm (5' 2) Wt 56 kg (123 lb 6.4 oz) SpO2 98% BMI 22.57 kg/m? 12/19/24 1043 12/19/24 1059 BP: 172/70 168/70 Pulse: (!) 49 (!) 52 Resp: 18 SpO2: 98% Weight: 56 kg (123 lb 6.4 oz) Height: 157.5 cm (5' 2) Physical Exam Vitals and nursing note reviewed. Constitutional: General: She is not in acute distress. Appearance: She is not ill-appearing. Cardiovascular: Rate and Rhythm: Normal rate and regular rhythm. Pulses: Normal pulses. Heart sounds: Normal heart sounds. Pulmonary: Effort: Pulmonary effort is normal. No respiratory distress. Breath sounds: Normal breath sounds. No wheezing, rhonchi or rales. Skin: General: Skin is warm and dry. Neurological: Mental Status: She is alert and oriented to person, place, and time. Psychiatric: Mood and Affect: Mood normal. Behavior: Behavior normal. Thought Content: Thought content normal. Judgment: Judgment normal. Assessment and Plan ASSESSMENT/PLAN: 1. Essential hypertension, benign - ICD9: 401.1, ICD10: I10 (primary diagnosis) - Improving control - Continue current medications - Recommend home blood pressure monitoring, to bring results to next visit - Enco (more content not included)... Normal [facility] 25(OH)D3 SerPl-mCncon 2024 25-hydroxyvitamin D3 [Mass/Vol] 51.6 ng/mL Normal >=30.0 [facility] Comment on above: Order Comment: Speci men Type: BLOOD SPECIMEN Ordering Facility: [facility] Address: [address] [place] [address] Result Comment: Clas sification of 25 OH Vitamin D status: Deficiency: <= 20.0 ng/ml. Insufficiency: 21.0-29.0 ng/ml. Sufficiency: >= 30.0 ng/ml. Performed By: #### 1 989-3 #### [facility] CLIA [id number] [address] [place] [address] [place] Lipid 1996 panelon Cholesterol [Mass/Vol] 237 mg/dL High <200 [facility] Comment on above: Order Comment: Marti hankins Type: BLOOD SPECIMEN Ordering Facility: [facility] Address: [address] [place] [address] Result Comment: <200 mg/dL, Desirable 200-239 mg/dL, Borderline high >239 mg/dL, High Performed By: #### 2 4331-1, 3016-3 #### [facility] CLIA [id number] [address] [place] [address] [place] Cholesterol in HDL [Mass/Vol] 43 mg/dL Normal >39 [facility] Comment on above: Order Comment: Marti hankins Type: BLOOD SPECIMEN Ordering Facility: [facility] Address: [address] [place] [address] Result Comment: 40-5 9 mg/dL, Acceptable >59 mg/dL, High: Negative risk factor for coronary heart disease <40 mg/dL, Low: Positive risk factor for coronary heart disease Performed By: #### 2 4331-1, 3016-3 #### [facility] CLIA [id number] [address] [place] [address] [place] Cholesterol in LDL [Mass/Vol] 170 mg/dL High <100 [facility] Comment on above: Order Comment: Marti hankins Type: BLOOD SPECIMEN Ordering Facility: [facility] Address: [address] [place] [address] Result Comment: <100 mg/dL, Optimal 100-129 mg/dL, Near optimal/above optimal 130-159 mg/dL, Borderline high 160-189 mg/dL, High >189 mg/dL, Very high Secondary prevention optimal LDL Cholesterol levels are recommended to be < 70 mg/dL Performed By: #### 2 4331-1, 3016-3 #### [facility] CLIA [id number] [address] [place] [address] [place] Cholesterol in LDL/Cholesterol in HDL [Mass ratio] 3.95 {ratio} High <2.54 [facility] Comment on above: Order Comment: Marti cr Type: BLOOD SPECIMEN Ordering Facility: [facility] Address: [address] [place] [address] Result Comment: Refe иринаce: 1. National Cholesterol Education Program ATP III Guideline At-A-Glance Quick Desk Reference: National Heart, Lung, and Blood [place]. National Institutes of Health. 2001: NIH Publication No. 01-3305. 2. An International Atherosclerosis Society position paper: global recommendations for the management of dyslipidemia: executive summary, Atherosclerosis. 2014: 232(2):410-413. Performed By: #### 2 4331-1, 6-3 #### [facility] CLIA [id number] [address] [place] [address] [place] Cholesterol in VLDL [Mass/Vol] 24 mg/dL Normal <30 [facility] Comment on above: Order Comment: Marti hankins Type: BLOOD SPECIMEN Ordering Facility: [facility] Address: [address] [place] [address] Performed By: #### 2 4331-1, 3015-3 #### [facility] CLIA [id number] [address] [place] [address] [place] Cholesterol non HDL [Mass/Vol] 194 mg/dL High <130 [facility] Comment on above: Order Comment: Marti hankins Type: BLOOD SPECIMEN Ordering Facility: [facility] Address: [address] [place] [address] Result Comment: <130 mg/dL, Optimal 130-159 mg/dL, Near optimal/above optimal 160-189 mg/dL, Borderline high 190-219 mg/dL, High >219 mg/dL, Very high Secondary prevention optimal non HDL Cholesterol levels are recommended to be <100 mg/dL Performed By: #### 2 4331-1, 6-3 #### [facility] CLIA [id number] [address] [place] [address] [facility] [place] Cholesterol.total/Jhoana sterol in HDL [Mass ratio] 5.51 {ratio} High <5.10 [facility] Comment on above: Order Comment: Marti hankins Type: BLOOD SPECIMEN Ordering Facility: [facility] Address: [address] [place] [address] Performed By: #### 2 4331-1, 3015-3 #### [facility] CLIA [id number] [address] [place] [address] [facility] FASTING TIME 12 hrs Normal [facility] Comment on above: Order Comment: Marti hankins Type: BLOOD SPECIMEN Ordering Facility: [facility] Address: [address] [place] [address] Performed By: #### 2 4331-1, 3016-3 #### [facility] CLIA [id number] [address] [place] [address] [facility] Triglyceride [Mass/Vol] 120 mg/dL Normal <150 [facility] Comment on above: Order Comment: Marti hankins Type: BLOOD SPECIMEN Ordering Facility: [facility] Address: [address] [place] [address] Result Comment: <150 mg/dL, Normal 150-199 mg/dL, Borderline high 200-499 mg/dL, High >499 mg/dL, Very high Performed By: #### 2 4331-1, 3016-3 #### [facility] CLIA [id number] [address] [place] [id number] [facility] PT panel Coag (PPP)on 2024 INR Coag (PPP) [Relative time] 2.4 {INR} High 0.9-1.3 [facility] Comment on above: Order Comment: Marti hankins Type: BLOOD SPECIMEN Ordering Facility: [facility] Address: [address] [place] [address] Result Comment: Mirna min K Antagonist (VKA) Therapeutic Range: INR 2 to 3 (Target INR of 2.5) Note: For patients treated with VKA drugs, such as warfarin, the [place] [employer] 2012 Guideline recommends a therapeutic INR range of 2 to 3 (target INR of 2.5). This recommendation includes high-risk patients with antiphospholipid syndrome with previous arterial or venous thromboembolism, current-generation mechanical or bioprosthetic aortic heart valve replacement. Note: Patients with mechanical aortic valve replacement and additional risk factors for thromboembolic events (atrial fibrillation, previous thromboembolism, LV dysfunction, hypercoagulable conditions) or an older generation mechanical AVR (i.e., ball in-Cage) or any mechanical MVR should have a INR therapeutic range of 2.5 to 3.5 (target INR of 3). Kvng GH, et al. Chest 2012, 141:7S-47S Jayce RA, et al. [facility] 2017, 70: 252-289 Performed By: #### 3 4528-0 #### [facility] CLIA [id number] [address] [place] [address] [facility] PT Coag (PPP) [Time] 24.0 s High <13.1 [facility] Comment on above: Order Comment: Marti hankins Type: BLOOD SPECIMEN Ordering Facility: [facility] Address: [address] [place] [address] Performed By: #### 3 4528-0 #### [facility] CLIA [id number] [address] [place], [place] [address] [place] [address] T4 Free SerPl-mCncon 025 Free T4 [Mass/Vol] 1.1 ng/dL Normal 0.9-1.7 [facility] Comment on above: Order Comment: Marti hankins Type: BLOOD SPECIMEN Ordering Facility: [facility] Address: [address] [place] [address] Performed By: #### 3 040-3, 03276-0 #### [facility] CLIA [id number] [address] [place] [address] TSH SerPl-aCncon 12-15-2024 TSH Qn 2.290 m[IU]/L Normal 0.270-4.200 [facility] Comment on above: Order Comment: Marti hankins Type: BLOOD SPECIMEN Ordering Facility: [facility] Address: [address] [place] [address] Performed By: #### 2 4331-1, 3016-3 #### [facility] CLIA [id number] [address] CNOVon 12-03-2024 CNOV Office Visit (AGINTM ) HELEN LIEBERMAN ([id number]) 1935 F Date Time Provider Department 12/03/24 8:00 AM TANYA LOZANO AGINTMLW During your visit today, we recorded the following information about you: Temperature Pulse Respiration Blood pressure 97.5 degrees 64/minute 16/minute 180/72 Weight Height 55.3 kg 1.575 m Tanya Lozano, STREET ROLLER ENGINEER.[employer]LE[employer]LETE 12/03/2024 9:08 PM Signed This note was created using [employer]. Subjective Helen Lieberman is a 89 year old female here today concerned regarding her BP. She reports was at her GI last week and her BP was elevated at 209/89 and was advised to contact PCP. She is taking losartan 50 mg and coreg 12.5 mg twice daily. Denies missing doses. Reports she does not feel any different. She reports her BPs have been all over. Home BP Readings: 11/30 11am left arm 161/66, right arm 152/92 12/01 9:45am right arm 139/69, left arm 144/61, 2:45pm right arm 154/87 12/02 9am right arm 153/67, left arm 148/69, 5:30pm right arm 170/82, left arm 196/77 12/03 7:15am right arm 217/105, left arm 213/93 She does admit to being stressed over trying to settle her husbands estate. States she has had sinus pain and pressure x3 wks. States she has constant watery drainage from her nose. States constant sinus headache. She feels it is related to her sinuses and not her BP. She has an appt with her kidney doctor this week. She is seeing DR Gore. ALLERGIES Allergen Reactions Amlodipine Other: See Comments Very intense leg cramps Penicillins Unknown Sulfa (Sulfonamide * Unknown Tetracyclines Unknown Current Outpatient Medications Medication Sig Dispense Refill carvedilol (COREG) 12.5 mg tablet Take 1 tablet by mouth two times a day with meals. [address] (PROTONIX) 40 mg tablet Take 1 tablet by mouth once daily. 90 tablet 3 warfarin (COUMADIN) 3 mg tablet Take 1 tablet by mouth once daily. 90 tablet 3 losartan (COZAAR) 50 mg tablet Take 1 tablet by mouth once daily. 90 tablet 0 acetaminophen (TYLENOL) 500 mg tablet Take 2 tablets by mouth every 8 hours. magnesium oxide (MAG-OX) 400 mg (241.3 mg magnesium) tablet Take 1 tablet by mouth once daily. carvedilol (COREG) 6.25 mg tablet Take 1 tablet by mouth two times a day. levothyroxine (SYNTHROID) 75 mcg tablet TAKE 1 TABLET BY MOUTH IN THE MORNING ON AN EMPTY STOMACH 270 tablet 0 warfarin (COUMADIN) 2 mg tablet Take 1 tablet by mouth daily as directed. (Patient taking differently: Take 2 mg by mouth every Tuesday.) 90 tablet 1 polyethylene glycol 3350 (MIRALAX, GLYCOLAX) 17 gram packet Take 17 g by mouth once daily. Dissolve dose in 4 - 8 ounces of liquid and take as directed. Cholecalciferol, Vitamin D3, 50 mcg (2,000 unit) cap Take by mouth once daily. No current facility-administered medications for this visit. ACTIVE PROBLEM LIST Essential Hypertension, Benign Hypothyroidism Atrial Fibrillation (Hcc) Tia (Transient Ischemic Attack) Gerd (Gastroesophageal Reflux Disease) Vertigo Red Blood Cell Antibody Positive Chronic Diastolic Chf (Congestive Heart Failure) (Hcc) Hx-Tia (Transient Ischemic Attack) Hyponatremia Elevated Troponin Level Fall At Home, Sequela Left Hip Pain Hematoma of Left Thigh Hamstring Injury, Left, Initial Encounter PAST MEDICAL HISTORY Diagnosis Date Atrial fibrillation (HCC) 07/29/2021 Essential hypertension Gallstone pancreatitis Pancreatitis PAST SURGICAL HISTORY Procedure Laterality Date SECTION HX x4 FOOT SURGERY HX right side HERNIA REPAIR HX KNEE SURGERY HX Right REMOVAL GALLBLADDER Social History Tobacco Use Smoking status: Never Smokeless tobacco: Never Vaping Use Vaping status: Never Used Substance Use Topics Alcohol use: Yes Comment: Rarely Drug use: Never Family History Problem Relation Age of Onset Stroke Mother other (tia) Sister Diabetes Sister Dementia Sister Lung Cancer Sister Stroke Sister Hypertension Sister Heart Brother Review of Systems Constitutional: Negative for chills, diaphoresis, fatigue and fever. HENT: Positive for congestion, postnasal drip, sinus pressure and sinus pain. Negative for ear pain and sore throat. Respiratory: Negative for cough and shortness of breath. Cardiovascular: Negative for chest pain, palpitations and leg swelling. Gastrointestinal: Negative for diarrhea, nausea and vomiting. Neurological: Positive for headaches. Negative for dizziness, syncope, speech difficulty, weakness, light-headedness and numbness. Psychiatric/Behavioral: Negative for dysphoric mood. The patient is not nervous/anxious. Objective 12/03/24 0758 12/03/24 0817 12/03/24 0839 12/03/24 0858 BP: 200/90 198/80 192/78 180/72 Pulse: 64 Resp: 16 Temp: 36.4 ?C (97.5 ?F) SpO2: 95% Weight: 55.3 kg (122 lb) Height: 157.5 cm (5' 2) Physica (more content not included)... Normal [facility] CNPTali 11-30-2024 SIGIFREDO Telephone (AGSMATOOSLE) HELEN LIEBERMAN ([id number]) 1935 F Date Time Provider Department 11/30/24 TANYA LOZANO During your visit today, we recorded the following information about you: Carlos Gonzáles MA 11/30/2024 10:12 AM Signed Patient of . Left message on stating she saw Dr. Casillas today and her blood pressure was 209/89. She was advised to contact CN office today . Please advise. Pt. Has apt. 01/03/2025 with Dee Bailey APRN.COLLEGE ATHLETE 11/30/2024 12:35 PM Signed She needs to be seen sooner - unfortunately we do not have any openings today - please schedule her on Tuesday. If no openings at least a NV. Dee Allergies As of Date: 11/30/2024 Noted Allergy Reaction AMLODIPINE 08/11/2024 14 - Other: See Comments Comments: Very intense leg cramps PENICILLINS 07/24/2021 16 - Unknown SULFA (SULFONAMIDE ANTIBIOTICS) 07/24/2021 16 - Unknown TETRACYCLINES 07/24/2021 16 - Unknown Date Reviewed: 10/04/2024 Reviewed by: Genia Huitron APRN.CNP - Fully Assessed Reason for Visit: Patient Update [1234] Prescriptions as of 12/02/2024 - carvedilol (COREG) 12.5 mg tablet Take 1 tablet by mouth two times a day with meals. - pantoprazole DR (PROTONIX) 40 mg tablet Take 1 tablet by mouth once daily. - warfarin (COUMADIN) 3 mg tablet Take 1 tablet by mouth once daily. - losartan (COZAAR) 50 mg tablet Take 1 tablet by mouth once daily. - acetaminophen (TYLENOL) 500 mg tablet Take 2 tablets by mouth every 8 hours. - magnesium oxide (MAG-OX) 400 mg (241.3 mg magnesium) tablet Take 1 tablet by mouth once daily. - carvedilol (COREG) 6.25 mg tablet Take 1 tablet by mouth two times a day. - levothyroxine (SYNTHROID) 75 mcg tablet TAKE 1 TABLET BY MOUTH IN THE MORNING ON AN EMPTY STOMACH - warfarin (COUMADIN) 2 mg tablet Take 1 tablet by mouth daily as directed. - polyethylene glycol 3350 (MIRALAX, GLYCOLAX) 17 gram packet Take 17 g by mouth once daily. Dissolve dose in 4 - 8 ounces of liquid and take as directed. - Cholecalciferol, Vitamin D3, 50 mcg (2,000 unit) cap Take by mouth once daily. Problem List As Of Date 11/30/2024 Noted Resolved Essential hypertension, benign [I10] 03/20/2015 Hypothyroidism [E03.9] 03/20/2015 Atrial fibrillation (HCC) [I48.91] 07/29/2021 TIA (transient ischemic attack) [G45.9] 08/09/2021 GERD (gastroesophageal reflux disease) [K21.9] 08/09/2021 Vertigo [R42] 08/09/2021 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] 08/25/2021 Syncope [R55] 09/07/2023 09/08/2023 Syncope and collapse [R55] 09/07/2023 09/08/2023 Chronic diastolic CHF (congestive heart failure*09/08/2023 Hx-TIA (transient ischemic attack) [Z86.73] 08/09/2024 Hyponatremia [E87.1] 08/09/2024 Elevated troponin level [R79.89] 08/09/2024 Fall at home, sequela [W19.XXXS, Y92.009] 08/09/2024 Left hip pain [M25.552] 08/09/2024 Hematoma of left thigh [S70.12XA] 08/09/2024 Hamstring injury, left, initial encounter [S76.*08/10/2024 Encounter Status:Closed by TANYA LOZANO on 12/02/24 Normal [facility] CBC panel Auto (Bld)on 11-29 Erythrocyte distribution width (RBC) [Ratio] 12.2 % Normal 11.5-15.0 [facility] Comment on above: Order Comment: Marti hankins Type: BLOOD SPECIMEN Ordering Facility: [facility] Address: [address] [place] [address] Performed By: #### 3 -, 71330-1 #### [facility] CLIA [id number] [address] [place] [address] [place] Hematocrit (Bld) [Volume fraction] 41.8 % Normal 36.0-46.0 [facility] Comment on above: Order Comment: Marti hankins Type: BLOOD SPECIMEN Ordering Facility: [facility] Address: [address] [place] [address] Performed By: #### 3 -, 34840-0 #### [facility] CLIA [id number] [address] [place] [address] [place] Hemoglobin (Bld) [Mass/Vol] 13.4 g/dL Normal 11.5-15.5 [facility] Comment on above: Order Comment: Marti hankins Type: BLOOD SPECIMEN [facility] Address: [address] [place] [address] Performed By: #### 3 040-3, 54236-0 #### [facility] CLIA [id number] [address] [place] [address] [facility] MCH (RBC) [Entitic mass] 31.2 pg Normal 26.0-34.0 [facility] Comment on above: Order Comment: Marti hankins Type: BLOOD SPECIMEN Ordering Facility: [facility] Address: [address] [place] [address] Performed By: #### 3 040-3, 43027-4 #### [facility] CLIA [id number] [address] [place] [address] [facility] MCHC (RBC) [Mass/Vol] 32.1 g/dL Normal 30.5-36.0 [facility] Comment on above: Order Comment: Marti hankins Type: BLOOD SPECIMEN Ordering Facility: [facility] Address: [address] [place] [address] Performed By: #### 3 040-3, 10565-7 #### [facility] CLIA [id number] [address] MCV (RBC) [Entitic vol] 97.4 fL Normal 80.0-100.0 [facility] Comment on above: Order Comment: Marti hankins Type: BLOOD SPECIMEN Ordering Facility: [facility] Address: [address] [place] [address] Performed By: #### 3 040-3, 62842-8 #### [facility] CLIA [id number] [address] [place] Platelet mean volume (Bld) [Entitic vol] 9.2 fL Normal 9.0-12.7 [facility] Comment on above: Order Comment: Marti hankins Type: BLOOD SPECIMEN Ordering Facility: [facility] Address: [address] [place] [address] Performed By: #### 3 040-3, 01981-3 #### [facility] CLIA [id number] [address] [place] [address] [facility] Platelets (Bld) [#/Vol] 340 10*3/uL Normal 150-400 [facility] Comment on above: Order Comment: Speci men Type: BLOOD SPECIMEN Ordering Facility: [facility] Address: [address] [place] [address] Performed By: #### 3 040-3, 43708-6 #### [facility] CLIA [id number] [address] [place] [address] [place] RBC (Bld) [#/Vol] 4.29 10*6/uL Normal 3.90-5.20 [facility] Comment on above: Order Comment: Speci men Type: BLOOD SPECIMEN Ordering Facility: [facility] Address: [address] [place] [address] Performed By: #### 3 040-3, 89396-8 #### [facility] CLIA [id number] [address] [place] [address] [place] WBC (Bld) [#/Vol] 5.13 10*3/uL Normal 3.70-11.00 [facility] Comment on above: Order Comment: Speci men Type: BLOOD SPECIMEN Ordering Facility: [facility] Address: [address] [place] [address] Performed By: #### 3 040-3, 01860-9 #### [facility] CLIA [id number] [address] [place] [address] [facility] Comprehensive metabolic 2000 panelon 11-29-2024 Albumin [Mass/Vol] 4.0 g/dL Normal 3.9-4.9 [facility] Comment on above: Order Comment: Speci men Type: BLOOD SPECIMEN Ordering Facility: [facility] Address: [address] [place] [address] Performed By: #### 3 040-3, 66525-8 #### [facility] CLIA [id number] [address] [place] [address] [place] ALP [Catalytic activity/Vol] 77 U/L Normal 34-123 [facility] Comment on above: Order Comment: Speci men Type: BLOOD SPECIMEN Ordering Facility: [facility] Address: [address] [place] [address] Performed By: #### 3 3, #### [facility] CLIA [id number] [address] [place] [address] [place] ALT With P-5'-P [Catalytic activity/Vol] 10 U/L Normal 7-38 [facility] Comment on above: Order Comment: Speci men Type: BLOOD SPECIMEN Ordering Facility: [facility] Address: [address] [place] [address] Performed By: #### 3 -, #### [facility] CLIA [id number] [address] [place] [address] [place] Anion gap [Moles/Vol] 8 mmol/L Normal 8-15 [facility] Comment on above: Order Comment: Marti [facility] Type: BLOOD SPECIMEN Ordering Facility: [facility] Address: [address] [place] [address] Performed By: #### 3 , #### [facility] CLIA [id number] [address] [place] [address] [place] AST With P-5'-P [Catalytic activity/Vol] 17 U/L Normal 13-35 [facility] Comment on above: Order Comment: Speci [facility] Type: BLOOD SPECIMEN Ordering Facility: [facility] Address: [address] [place] [address] Performed By: #### 3 , #### [facility] CLIA [id number] [address] [place] [address] [place] Bilirubin [Mass/Vol] 0.7 mg/dL Normal 0.2-1.3 [facility] Comment on above: [facility]: [facility]: BLOOD SPECIMEN [facility]ing Facility[facility] Address: [address] [place] [address] Performed By: #### 3 3, 58770-5 #### [facility] CLIA [id number] [address] [place] [address] [place] Calcium [Mass/Vol] 9.6 mg/dL Normal 8.5-10.2 [facility] Comment on above: Order Comment: Marti hankins Type: BLOOD SPECIMEN Ordering Facility: [facility] Address: [address] [place] [address] Performed By: #### 3 040-3, #### [facility] CLIA [id number] [address] [place] [address] [place] Chloride [Moles/Vol] 98 mmol/L Normal 98-107 [facility] Comment on above: Order Comment: Marti men Type: BLOOD SPECIMEN Ordering Facility: [facility] Address: [address] [place] [address] Performed By: #### 3 040-3, #### [facility] CLIA [id number] [address] [place] [address] [place] CO2 [Moles/Vol] 28 mmol/L Normal 22-30 [facility] Comment on above: Order Comment: Marti men Type: BLOOD SPECIMEN [facility]ing Facility[facility] Address: [address] [place] [address] Performed By: #### 3 040-3, #### [facility] CLIA [id number] [address] [place] [address] [place] Creatinine [Mass/Vol] 1.01 mg/dL High 0.58-0.96 [facility] Comment on above: Order Comment: Shanikai men Type: BLOOD SPECIMEN Ordering Facility: [facility] Address: [address] [place] [address] Performed By: #### 3 040-3, 76792-6 #### [facility] CLIA [id number] [address] [place] [address] [facility] [place] Creatinine and Glomerular filtration rate.predicted panel (S/P/Bld) 54 mL/min/1.73m??? Low >=60 [facility] Comment on above: Order Comment: Marti men Type: BLOOD SPECIMEN Ordering Facility: [facility] Address: [address] [place] [address] Result Comment: Dolores mated Glomerular Filtration Rate (eGFR) is calculated using the 2020 CKD-EPI creatinine equation. This equation utilizes serum creatinine, sex, and age as parameters. The creatinine assay has traceable calibration to isotope dilution-mass spectrometry. Refer to KDIGO guidelines for clinical interpretation. In patients with unstable renal function, e.g. those with acute kidney injury, the eGFR may not accurately reflect actual GFR. Performed By: #### 3 040-3, 50543-8 #### [facility] CLIA [id number] [address] [place] [address] [place] Glucose [Mass/Vol] 113 mg/dL High 74-99 [facility] Comment on above: Order Comment: Marti hankins Type: BLOOD SPECIMEN Ordering Facility: [facility] Address: [address] [place] [address] Result Comment: The [place] [employer] (ADA) provides guidance for cutoff values for fasting glucose and random glucose. The ADA defines fasting as no caloric intake for at least 8 hours. Fasting plasma glucose results between 100 to 125 mg/dL indicate increased risk for diabetes (prediabetes). Fasting plasma glucose results greater than or equal to 126 mg/dL meet the criteria for diagnosis of diabetes. In the absence of unequivocal hyperglycemia, results should be confirmed by repeat testing. In a patient with classic symptoms of hyperglycemia or hyperglycemic crisis, random plasma glucose results greater than or equal to 200 mg/dL meet the criteria for diagnosis of diabetes. Reference: Standards of Medical Care in Diabetes 2016, [place] [employer]. Diabetes Care. 2016.39(Suppl 1). Performed By: #### 3 040-3, 90785-0 #### [facility] CLIA [id number] [address] [place] [address] [place] Potassium [Moles/Vol] 4.6 mmol/L Normal 3.7-5.1 [facility] Comment on above: Order Comment: Marti hankins Type: BLOOD SPECIMEN Ordering Facility[facility] Address: [address] [place] [address] Performed By: #### 3 040-3, 99811-6 #### [facility] CLIA [id number] [address] [place] [address] [place] Protein [Mass/Vol] 7.4 g/dL Normal 6.3-8.0 [facility] Comment on above: Order Comment: Speci men Type: BLOOD SPECIMEN Ordering Facility: [facility] Address: [address] [place] [address] Performed By: #### 3 040-3, 76133-0 #### [facility] CLIA [id number] [address] [place] [address] [place] Sodium [Moles/Vol] 134 mmol/L Low 136-144 [facility] Comment on above: Order Comment: Speci men Type: BLOOD SPECIMEN Ordering Facility[facility] Address: [address] [place] [address] Performed By: #### 3 040-3, 24107-6 #### [facility] CLIA [id number] [address] [place] [address] [place] Urea nitrogen [Mass/Vol] 13 mg/dL Normal 7-21 [facility] Comment on above: Order Comment: Speci men Type: BLOOD SPECIMEN Ordering Facility[facility] Address: [address] [place] [address] Performed By: #### 3 -3, 90587-3 #### [facility] CLIA [id number] [address] [place] [id number] [place] Lipase SerPl-cCncon 11-30-19 25 Lipase [Catalytic activity/Vol] 50 U/L Normal 16-61 [facility] Comment on above: Order Comment: Speci men Type: BLOOD SPECIMEN [facility]ing Facility[facility] Address: [address] [place] [address] Performed By: #### 3 040-3, 28960-7 #### [facility] CLIA [id number] [address] [place] [address] [place] ALBUMIN/CREATININE RATIO, UR INEon 11-26-2024 Albumin Unsp time DL <= 20 mg/L (U) [Mass/Time] 19.4 mg/L Normal [facility] Comment on above: Order Comment: Speci men Type: URINE SPECIMEN Ordering Facility: [facility] Address: [address] [place] [address] Performed By: #### U ACR #### [facility] CLIA [id number] [address] [place] Albumin/Creatinine (U) [Mass ratio] 39 mg/g High <30 [facility] Comment on above: Order Comment: Speci men Type: URINE SPECIMEN Ordering Facility: [facility] Address: [address] [place] [address] Result Comment: Adul t Male and Female Nephrotic Criteria: <30 mg/g is considered normal to mildly increased 30-300 mg/g is considered moderately increased >300 mg/g is considered severely increased KDIGO. (2013). KDIGO 2012 Clinical Practice Guideline for the Evaluation and Management of Chronic Kidney Disease. Official Journal of the International Society of Nephrology, 3(1), 1-150. Performed By: #### U ACR #### [facility] CLIA [id number] [address] [place] [address] [place] Creatinine (U) [Mass/Vol] 49.7 mg/dL Normal 42.2-237.9 [facility] Comment on above: Order Comment: Speci men Type: URINE SPECIMEN Ordering Facility: [facility] Address: [address] [place] [id number] Performed By: #### U ACR #### [facility] CLIA [id number] [address] [place] [address] [place] Basic metabolic 2000 panelon 11-26-2024 Anion gap [Moles/Vol] 8 mmol/L Normal 8-15 [facility] Comment on above: Order Comment: Speci men Type: BLOOD SPECIMEN [facility] [facility] Address: [address] [place] [address] Performed By: #### 3 040-3, 66967-1 #### [facility] CLIA [id number] [address] [place] [address] [place] Calcium [Mass/Vol] 9.9 mg/dL Normal 8.5-10.2 [facility] Comment on above: Order Comment: Speci men Type: BLOOD SPECIMEN Ordering Facility: [facility] Address: [address] [place] [address] Performed By: #### 3 040-3, 36423-2 #### [facility] CLIA [id number] [address] [place] [address] [place] Chloride [Moles/Vol] 98 mmol/L Normal 98-107 [facility] Comment on above: Order Comment: Speci men Type: BLOOD SPECIMEN Ordering Facility: [facility] Address: [address] [place] [address] Performed By: #### 3 040-3, #### [facility] CLIA [id number] [address] [place] [address] [place] CO2 [Moles/Vol] 29 mmol/L Normal 22-30 [facility] Comment on above: Order Comment: Shanikai men Type: BLOOD SPECIMEN Ordering Facility: [facility] Address: [address] [place] [address] Performed By: #### 3 040-3, 80995-2 #### [facility] CLIA [id number] [address] [place] [address] [place] Creatinine [Mass/Vol] 0.93 mg/dL Normal 0.58-0.96 [facility] Comment on above: Order Comment: Speci men Type: BLOOD SPECIMEN Ordering Facility: [facility] Address: [address] [place] [address] Performed By: #### 3 040-3, 04576-2 #### [facility] CLIA [id number] [address] [place] [address] [facility] [place] Creatinine and Glomerular filtration rate.predicted panel (S/P/Bld) 59 mL/min/1.73m??? Low >=60 [facility] Comment on above: Order Comment: Speci men Type: BLOOD SPECIMEN Ordering Facility: [facility] Address: [address] [place] [address] Result Comment: Dolores mated Glomerular Filtration Rate (eGFR) is calculated using the 2020 CKD-EPI creatinine equation. This equation utilizes serum creatinine, sex, and age as parameters. The creatinine assay has traceable calibration to isotope dilution-mass spectrometry. Refer to KDIGO guidelines for clinical interpretation. In patients with unstable renal function, e.g. those with acute kidney injury, the eGFR may not accurately reflect actual GFR. Performed By: #### 3 040-3, 95826-9 #### [facility] CLIA [id number] [address] [place] [address] [place] Glucose [Mass/Vol] 83 mg/dL Normal 74-99 [facility] Comment on above: Order Comment: Marti hankins Type: BLOOD SPECIMEN Ordering Facility: [facility] Address: [address] [place] [address] Result Comment: The [place] Diabetes Association (ADA) provides guidance for cutoff values for fasting glucose and random glucose. The ADA defines fasting as no caloric intake for at least 8 hours. Fasting plasma glucose results between 100 to 125 mg/dL indicate increased risk for diabetes (prediabetes). Fasting plasma glucose results greater than or equal to 126 mg/dL meet the criteria for diagnosis of diabetes. In the absence of unequivocal hyperglycemia, results should be confirmed by repeat testing. In a patient with classic symptoms of hyperglycemia or hyperglycemic crisis, random plasma glucose results greater than or equal to 200 mg/dL meet the criteria for diagnosis of diabetes. Reference: Standards of Medical Care in Diabetes 2016, [place] [employer] Association. Diabetes Care. 2016.39(Suppl 1). Performed By: #### 3 040-3, 95149-1 #### [facility] CLIA [id number] [address] [place] [address] [place] Potassium [Moles/Vol] 4.7 mmol/L Normal 3.7-5.1 [facility] Comment on above: Order Comment: Marti hankins Type: BLOOD SPECIMEN Ordering Facility: [facility] Address: [address] [place] [address] Performed By: #### 3 040-3, 86889-5 #### [facility] CLIA [id number] [address] [place] [address] [place] [facility] Sodium [Moles/Vol] 135 mmol/L Low 136-144 [facility] Comment on above: Order Comment: Marti hankins Type: BLOOD SPECIMEN [facility]ing [facility] Address: [address] [place] [address] Performed By: #### 3 040-3, 03261-3 #### [facility] CLIA [id number] [address] [place] [address] [place] [facility] Urea nitrogen [Mass/Vol] 12 mg/dL Normal 7-21 [facility] Comment on above: Order Comment: Marti hankins Type: BLOOD SPECIMEN Ordering Facility: [facility] Address: [address] [place] [address] Performed By: #### 3 040-3, 32883-1 #### [facility] CLIA [id number] [address] [place] [id number] [facility] PT panel Coag (PPP)on 2024 INR Coag (PPP) [Relative time] 2.6 {INR} High 0.9-1.3 [facility] Comment on above: Order Comment: Marti hankins Type: BLOOD SPECIMEN Ordering Facility: [facility] Address: [address] [place] [address] Result Comment: Mirna min K Antagonist (VKA) Therapeutic Range: INR 2 to 3 (Target INR of 2.5) Note: For patients treated with VKA drugs, such as warfarin, the [place] [employer] 2012 Guideline recommends a therapeutic INR range of 2 to 3 (target INR of 2.5). This recommendation includes high-risk patients with antiphospholipid syndrome with previous arterial or venous thromboembolism, current-generation mechanical or bioprosthetic aortic heart valve replacement. Note: Patients with mechanical aortic valve replacement and additional risk factors for thromboembolic events (atrial fibrillation, previous thromboembolism, LV dysfunction, hypercoagulable conditions) or an older generation mechanical AVR (i.e., ball in-Cage) or any mechanical MVR should have a INR therapeutic range of 2.5 to 3.5 (target INR of 3). Kvng CARMONA, et al. Chest 2012, 141:7S-47S Jayce ALVARADO et al. [facility] 2017, 70: 252-289 Performed By: #### 3 040-3, 74127-4 #### [facility] CLIA [id number] [address] [place] [address] [place] [facility] PT Coag (PPP) [Time] 25.4 s High <13.1 [facility] Comment on above: Order Comment: Marti hankins Type: BLOOD SPECIMEN Ordering Facility: [facility] Address: [address] [place] [address] Performed By: #### 3 040-3, 92289-7 #### [facility] CLIA [id number] [address] [place] [address] [facility] Urate SerPl-mCncon 5 Urate [Mass/Vol] 4.3 mg/dL Normal 2.5-6.6 [facility] Comment on above: Order Comment: Marti hankins Type: BLOOD SPECIMEN Ordering Facility: [facility] Address: [address] [place] [address] Performed By: #### 3 040-3, 72355-1 #### [facility] CLIA [id number] [address] [place] [address] OF [facility] PT panel Coag (PPP)on 2024 INR Coag (PPP) [Relative time] 2.5 {INR} High 0.9-1.3 [facility] Comment on above: Order Comment: Marti hankins Type: BLOOD SPECIMEN Ordering Facility: [facility] Address: [address] [place] [address] Result Comment: Mirna min K Antagonist (VKA) Therapeutic Range: INR 2 to 3 (Target INR of 2.5) Note: For patients treated with VKA drugs, such as warfarin, the [place] [employer] 2012 Guideline recommends a therapeutic INR range of 2 to 3 (target INR of 2.5). This recommendation includes high-risk patients with antiphospholipid syndrome with previous arterial or venous thromboembolism, current-generation mechanical or bioprosthetic aortic heart valve replacement. Note: Patients with mechanical aortic valve replacement and additional risk factors for thromboembolic events (atrial fibrillation, previous thromboembolism, LV dysfunction, hypercoagulable conditions) or an older generation mechanical AVR (i.e., ball in-Cage) or any mechanical MVR should have a INR therapeutic range of 2.5 to 3.5 (target INR of 3). Kvng CARMONA, et al. Chest 2012, 141:7S-47S Jayce RA, et al. [facility] 2017, 70: 252-289 Performed By: #### 3 4528-0 #### [facility] CLIA [id number] [address] [place] [address] [facility] PT Coag (PPP) [Time] 25.2 s High <13.1 [facility] Comment on above: Order Comment: Marti hankins Type: BLOOD SPECIMEN Ordering Facility: [facility] Address: [address] [place] [address] Performed By: #### 3 4528-0 #### [facility] CLIA [id number] [address] [place] [address] [facility] 10-29-2024 CNPN Telephone (AGINTMLW) HELEN LIEBERMAN ([id number]) 1935 F Date Time Provider Department 10/29/24 TANYA LOZANO AGINTMLW During your visit today, we recorded the following information about you: Charisse Lange MA 10/29/2024 8:29 AM Signed Office INR machine is unable to be used, patient has nurse visit INR scheduled for 11/01. Please place lab order for patient to complete check at the lab. Thanks! LEIGH Lorenzana Charlene M, STREET ROLLER ENGINEER.COLLEGE ATHLETE 10/29/2024 12:49 PM Signed Order placed Nicole Foreman MA 10/30/2024 11:32 AM Signed Patient is informed. You can cancel her appt Nicole Foreman MA Allergies As of Date: 10/29/2024 Noted Allergy Reaction AMLODIPINE 08/11/2024 14 - Other: See Comments Comments: Very intense leg cramps PENICILLINS 07/24/2021 16 - Unknown SULFA (SULFONAMIDE ANTIBIOTICS) 07/24/2021 16 - Unknown TETRACYCLINES 07/24/2021 16 - Unknown Date Reviewed: 10/04/2024 Reviewed by: Genia Huitron APRN.COLLEGE ATHLETE - Fully Assessed Reason for Visit: Lab Orders [1688] Primary Visit Diagnosis:Paroxysmal atrial fibrillation (HCC) [I48.0] Order(s):PROTHROMBIN TIME [SQPT] Order #: [id number] FUTURE Prescriptions as of 10/30/2024 - losartan (COZAAR) 50 mg tablet Take 1 tablet by mouth once daily. - acetaminophen (TYLENOL) 500 mg tablet Take 2 tablets by mouth every 8 hours. - magnesium oxide (MAG-OX) 400 mg (241.3 mg magnesium) tablet Take 1 tablet by mouth once daily. - carvedilol (COREG) 6.25 mg tablet Take 1 tablet by mouth two times a day. - pantoprazole DR (PROTONIX) 40 mg tablet Take 1 tablet by mouth once daily. - levothyroxine (SYNTHROID) 75 mcg tablet TAKE 1 TABLET BY MOUTH IN THE MORNING ON AN EMPTY STOMACH - warfarin (COUMADIN) 3 mg tablet take 1 tablet by mouth daily as directed - warfarin (COUMADIN) 2 mg tablet Take 1 tablet by mouth daily as directed. - polyethylene glycol 3350 (MIRALAX, GLYCOLAX) 17 gram packet Take 17 g by mouth once daily. Dissolve dose in 4 - 8 ounces of liquid and take as directed. - Cholecalciferol, Vitamin D3, 50 mcg (2,000 unit) cap Take by mouth once daily. Problem List As Of Date 10/29/2024 Noted Resolved Essential hypertension, benign [I10] 03/20/2015 Hypothyroidism [E03.9] 03/20/2015 Atrial fibrillation (HCC) [I48.91] 07/29/2021 TIA (transient ischemic attack) [G45.9] 08/09/2021 GERD (gastroesophageal reflux disease) [K21.9] 08/09/2021 Vertigo [R42] 08/09/2021 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] 08/25/2021 Syncope [R55] 09/07/2023 09/08/2023 Syncope and collapse [R55] 09/07/2023 09/08/2023 Chronic diastolic CHF (congestive heart failure*09/08/2023 Hx-TIA (transient ischemic attack) [Z86.73] 08/09/2024 Hyponatremia [E87.1] 08/09/2024 Elevated troponin level [R79.89] 08/09/2024 Fall at home, sequela [W19.XXXS, Y92.009] 08/09/2024 Left hip pain [M25.552] 08/09/2024 Hematoma of left thigh [S70.12XA] 08/09/2024 Hamstring injury, left, initial encounter [S76.*08/10/2024 Encounter Status:Closed by TANYA LOZANO on 10/29/24 [facility] [id number] Author: SHIRLEY PERALES MD Service: ? Author Type: Physician Type: Letter Filed: 10/16/2024 16:09 Note Text: [facility] Payer Denial Management [address] [place] [address] DATE: 10/15/2024 FACILITY: [facility]. Patient: HELEN LIEBERMAN Date of Service: 08/09/2024 to 08/14/2024 Dear Reviewer: Please accept this letter of appeal for services which have been denied. Clinical information: Helen Lieberman is an 88-year-old female with AF (on Coumadin), HTN, and hx of TIAs. She presented to the ED August 09, 2024 with severe L hip and posterior thigh pain after she had slipped down one step at home and fell into her grandfather clock, striking her L hip. On exam, she was hypertensive 247/126, other VS okay. She had a 2 cm area of ecchymosis over her lateral L hip; skin tears over her L elbow and L 5th finger. Na was 129; INR 3.0. Plain XRs: no acute osseous abnormality of L hip or femur. CT revealed hematoma and strain of the L hamstring musculature, along with possible tear of the L hamstring tendons. She was given IV vitamin K x 1 for her INR 3.0; and 1 L NS IVFB for hyponatremia. Admission dxs were hyponatremia; HTN urgency; atrial fibrillation (hold Coumadin for now); and L thigh hematoma with question of hamstring tendon tear. Ms. Lieberman was seen by Orthopedic Surgery August 10, 2024, with recommendation for continued monitoring and WBAT. MRI that day: complete tear of the L proximal conjoined hamstring tendon with extensive intramuscular and perifascial edema/hemorrhage throughout the posterior compartment of the L thigh; and 5.5 cm hematoma in the proximal semitendinosus muscle, with areas of internal nodular enhancement. Continued hold on Coumadin. Na was 131 on August 10, but decreased significantly to 127 on August 11. Nephrology consult the following day, when her Na decreased further to 123; urine sodium was 84, with urine osmolality 408, which the Rack Loader thought was inappropriate. Recommendation was for urea t.i.d., daily labs, discontinuation of HCTZ; and it was noted that her bradycardia may result in release of ADH. Herfollowup Na levels were 129 on August 13 and normal at 136 on August 14. At that time, her pain was less and she was tolerating oral intake. She was deemed safe for discharge to SNF August 14, 2024, with the plan to restart Coumadin there. Ms. Lieberman is an advanced-elderly patient who suffered significant musculotendinous injury to her L thigh area with a fall at home while on Coumadin. She also had significant hyponatremia 129, decreasing further over the next couple of days to 127, then 123 on August 12, 2024. Urea treatment, along with medicine adjustments, were instituted by Nephrology, with subsequent increase in her Na to normal. There was no safe discharge for her prior to August 14, 2024. She satisfied the requirements for > 2 medically necessary midnights in hospital before safe discharge to SNF. [facility] requests your kind reconsideration of this case; and full proper reimbursement for the inpatient admission of August 09, 2024 to August 14, 2024. A review of the enclosed documentation will support these statements. Please send your response to [facility], Payer Denial Management, [address] [place] [address], [place] [address]. If additional information is needed please contact me at [phone]. Sincerely, Shirley Perales M.D. [place] [address] [email or web address] Normal [facility] 10-09-2024 CNPN Telephone (AGINTMLW) HELEN LIEBERMAN ([id number]) 1935 F Date Time Provider Department 10/09/24 TANYA LOZANO AGINTMLW During your visit today, we recorded the following information about you: Corrine Birmingham LPN 10/09/2024 11:47 AM Signed Pt asking for mammogram order to be placed. Pt would like call once order is placed so she can schedule. ROBERT Mcgovern Charlene M, STREET ROLLER ENGINEER.COLLEGE ATHLETE 10/09/2024 12:38 PM Addendum Is there a reason she wants a mammogram. Mammogram is not recommended or needed Corrine Birmingham LPN 10/09/2024 4:19 PM Signed Call placed to pt, she states that she had 4 sisters that had breast. Pt states that her sister was 91 years old last year when she was diagnosed. Pt states that she has been having these done regularly and would just like the peace of mind. ROBERT Mcgovern Charlene M, STREET ROLLER ENGINEER.COLLEGE ATHLETE 10/10/2024 6:46 AM Signed Addended by: TANYA LOZANO on: 10/10/2024 06:46 AM Modules accepted: Charisse Haas MA 10/10/2024 12:34 PM Signed Patient informed order placed, gave number to call and schedule. Charisse Lange MA Allergies As of Date: 10/09/2024 Noted Allergy Reaction AMLODIPINE 08/11/2024 14 - Other: See Comments Comments: Very intense leg cramps PENICILLINS 07/24/2021 16 - Unknown SULFA (SULFONAMIDE ANTIBIOTICS) 07/24/2021 16 - Unknown TETRACYCLINES 07/24/2021 16 - Unknown Date Reviewed: 10/04/2024 Reviewed by: Genia Huitron APRN.COLLEGE ATHLETE - Fully Assessed Reason for Visit: Orders [681] Cmt: Mammogram order Primary Visit Diagnosis:Encounter for screening mammogram for malignant neoplasm of breast [Z12.31] Order(s):[facility] SCREENING [facility]SE [[id number]] Order #: [id number] FUTURE Prescriptions as of 10/10/2024 - losartan (COZAAR) 50 mg tablet Take 1 tablet by mouth once daily. - acetaminophen (TYLENOL) 500 mg tablet Take 2 tablets by mouth every 8 hours. - magnesium oxide (MAG-OX) 400 mg (241.3 mg magnesium) tablet Take 1 tablet by mouth once daily. - carvedilol (COREG) 6.25 mg tablet Take 1 tablet by mouth two times a day. - pantoprazole DR (PROTONIX) 40 mg tablet Take 1 tablet by mouth once daily. - levothyroxine (SYNTHROID) 75 mcg tablet TAKE 1 TABLET BY MOUTH IN THE MORNING ON AN EMPTY STOMACH - warfarin (COUMADIN) 3 mg tablet take 1 tablet by mouth daily as directed - warfarin (COUMADIN) 2 mg tablet Take 1 tablet by mouth daily as directed. - polyethylene glycol 3350 (MIRALAX, GLYCOLAX) 17 gram packet Take 17 g by mouth once daily. Dissolve dose in 4 - 8 ounces of liquid and take as directed. - Cholecalciferol, Vitamin D3, 50 mcg (2,000 unit) cap Take by mouth once daily. Problem List As Of Date 10/09/2024 Noted Resolved Essential hypertension, benign [I10] 03/20/2015 Hypothyroidism [E03.9] 03/20/2015 Atrial fibrillation (HCC) [I48.91] 07/29/2021 TIA (transient ischemic attack) [G45.9] 08/09/2021 GERD (gastroesophageal reflux disease) [K21.9] 08/09/2021 Vertigo [R42] 08/09/2021 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] 08/25/2021 Syncope [R55] 09/07/2023 09/08/2023 Syncope and collapse [R55] 09/07/2023 09/08/2023 Chronic diastolic CHF (congestive heart failure*09/08/2023 Hx-TIA (transient ischemic attack) [Z86.73] 08/09/2024 Hyponatremia [E87.1] 08/09/2024 Elevated troponin level [R79.89] 08/09/2024 Fall at home, sequela [W19.XXXS, Y92.009] 08/09/2024 Left hip pain [M25.552] 08/09/2024 Hematoma of left thigh [S70.12XA] 08/09/2024 Hamstring injury, left, initial encounter [S76.*08/10/2024 Encounter Status:Closed by CORRINE BIRMINGHAM on 10/09/24 [facility] CNPN Telephone (AGINTMLW) HELEN LIEBERMAN ([id number]) 1935 F Date Time Provider Department 10/09/24 TANYA LOZANO During your visit today, we recorded the following information about you: Corrine Birmingham LPN 10/09/2024 11:19 AM Signed ----- Message from Tanya Lozano APRN.COLLEGE ATHLETE sent at 10/07/2024 11:36 AM EST ----- Wnr. Continue current dose recheck one month Corrine Birmingahm LPN 10/09/2024 11:24 AM Signed Call placed to pt, advised of the below recommendation. Pt states that she currently takes 2 mg on Sundays and 3 mg all other days. Pt is scheduled for recheck on 11/01/2024 Corrine Birmingham LPN Allergies As of Date: 10/09/2024 Noted Allergy Reaction AMLODIPINE 08/11/2024 14 - Other: See Comments Comments: Very intense leg cramps PENICILLINS 07/24/2021 16 - Unknown SULFA (SULFONAMIDE ANTIBIOTICS) 07/24/2021 16 - Unknown TETRACYCLINES 07/24/2021 16 - Unknown Date Reviewed: 10/04/2024 Reviewed by: Genia Huitron APRN.COLLEGE ATHLETE - Fully Assessed Reason for Visit: Coumadin/INR [1207] Prescriptions as of 10/09/2024 - losartan (COZAAR) 50 mg tablet Take 1 tablet by mouth once daily. - acetaminophen (TYLENOL) 500 mg tablet Take 2 tablets by mouth every 8 hours. - magnesium oxide (MAG-OX) 400 mg (241.3 mg magnesium) tablet Take 1 tablet by mouth once daily. - carvedilol (COREG) 6.25 mg tablet Take 1 tablet by mouth two times a day. - pantoprazole DR (PROTONIX) 40 mg tablet Take 1 tablet by mouth once daily. - levothyroxine (SYNTHROID) 75 mcg tablet TAKE 1 TABLET BY MOUTH IN THE MORNING ON AN EMPTY STOMACH - warfarin (COUMADIN) 3 mg tablet take 1 tablet by mouth daily as directed - warfarin (COUMADIN) 2 mg tablet Take 1 tablet by mouth daily as directed. - polyethylene glycol 3350 (MIRALAX, GLYCOLAX) 17 gram packet Take 17 g by mouth once daily. Dissolve dose in 4 - 8 ounces of liquid and take as directed. - Cholecalciferol, Vitamin D3, 50 mcg (2,000 unit) cap Take by mouth once daily. Problem List As Of Date 10/09/2024 Noted Resolved Essential hypertension, benign [I10] 03/20/2015 Hypothyroidism [E03.9] 03/20/2015 Atrial fibrillation (HCC) [I48.91] 07/29/2021 TIA (transient ischemic attack) [G45.9] 08/09/2021 GERD (gastroesophageal reflux disease) [K21.9] 08/09/2021 Vertigo [R42] 08/09/2021 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] 08/25/2021 Syncope [R55] 09/07/2023 09/08/2023 Syncope and collapse [R55] 09/07/2023 09/08/2023 Chronic diastolic CHF (congestive heart failure*09/08/2023 Hx-TIA (transient ischemic attack) [Z86.73] 08/09/2024 Hyponatremia [E87.1] 08/09/2024 Elevated troponin level [R79.89] 08/09/2024 Fall at home, sequela [W19.XXXS, Y92.009] 08/09/2024 Left hip pain [M25.552] 08/09/2024 Hematoma of left thigh [S70.12XA] 08/09/2024 Hamstring injury, left, initial encounter [S76.*08/10/2024 Encounter Status:Closed by CORRINE BIRMINGHAM on 10/09/24 [facility] CNOVon 10-04-2024 [facility] Office Visit (AGFAMP LE) HELEN LIEBERMAN ([id number]) 1935 F Date Time Provider Department 10/04/24 3:20 PM GENIA HUITRON During your visit today, we recorded the following information about you: Temperature Pulse Blood pressure Weight 98 degrees 76/minute 146/60 54 kg Height 1.575 m Genia Huitron, STREET ROLLER ENGINEER.COLLEGE ATHLETE 10/08/2024 9:43 AM Signed CHIEF COMPLAINT: Helen Lieberman is a 88 year old female, patient of KEVAN Lozano, who presents for a hospital and rehab stay in July for a fall and hamstring injury. I reviewed past medical, surgical, social, and family histories today and updated chart. Allergies, chronic medications, and supplements were also reviewed. Hospital admission 08/09/2024-08/14/2024: HOSPITAL COURSE: Helen Lieberman is a 88 year old female presented with past medical history of HTN, HFpEF, AFIB (on Coumadin), hyponatremia, hx TIA, and GERD who presents with fall, left hip pain. CT scan of left him ruled out acute fracture. Patient does have ansley of hamstring tendon and hematoma. Ortho evaluated patient , did not recommend any surgery. Able to walk when I attempted to walk her and physical therapy confirmed this. She will need longterm facility. The hyponatremia is due to low solute intake and high water intake diet. Dr. Olmos added urea tablets to be taken when her sodium is under 130. Beta-doug dose was decreased as it was felt the carvedilol was also giving her propensity with the bradycardia for ADH release. Patient seen by nephrology and it is felt that her hyponatremia is a combination of increased water intake and she has a low solute diet. This was corrected medication adjustments were made and these will be followed by Dr. Gore. She will follow-up with Dr. Alvarez for orthopedics in 2 weeks for the hamstring tear she is weightbearing as tolerated. Warfarin was held and can be resumed at her normal maintenance dose with checking INR every 3 days until she is therapeutic. Would not increase the dosage from her baseline as a gradual increase in the INR makes her less likely to rebleed into the tendon. She is seen by physical Occupational Therapy a surgical repair was not felt to be appropriate. She will follow-up with Dr. Alvarez as an outpatient in 2 weeks for reevaluation. INTERVAL COURSE OF EVENTS: Patient has hyponatremia that is not SIADH it is decreased solute intake and too much free water she is on a 1500 cc fluid restriction and liberal salt intake no diuretics. Blood pressure has been labile with her pain and Dr. Gore has the blood pressure medications the way he wants them and any questions on the blood pressure medication changes should be referred to him as he will be following her for her BP. Coumadin 2 mg on Tuesday, remaining days are 3 mg daily 4 weeks since INR check Current HPI: Patient states she is feeling great since being home. She denies any persistent pain and states all the bruising has resolved. No further falls. She is back to all her normal activities. She needs a refill on the Losartan today. PAST MEDICAL HISTORY Diagnosis Date Atrial fibrillation (HCC) 07/29/2021 Essential hypertension Gallstone pancreatitis Pancreatitis PAST SURGICAL HISTORY Procedure Laterality Date SECTION HX x4 FOOT SURGERY HX right side HERNIA REPAIR HX KNEE SURGERY HX Right REMOVAL GALLBLADDER Social History Tobacco Use Smoking status: Never Smokeless tobacco: Never Vaping Use Vaping status: Never Used Substance Use Topics Alcohol use: Yes Comment: Rarely Drug use: Never ALLERGIES Allergen Reactions Amlodipine Other: See Comments Very intense leg cramps Penicillins Unknown Sulfa (Sulfonamide * Unknown Tetracyclines Unknown Family History Problem Relation Age of Onset Stroke Mother other (tia) Sister Diabetes Sister Dementia Sister Lung Cancer Sister Stroke Sister Hypertension Sister Heart Brother Current Outpatient Medications Medication Sig Dispense Refill losartan (COZAAR) 50 mg tablet Take 1 tablet by mouth once daily. 30 tablet 0 acetaminophen (TYLENOL) 500 mg tablet Take 2 tablets by mouth every 8 hours. magnesium oxide (MAG-OX) 400 mg (241.3 mg magnesium) tablet Take 1 tablet by mouth once daily. carvedilol (COREG) 6.25 mg tablet Take 1 tablet by mouth two times a day. pantoprazole DR (PROTONIX) 40 mg tablet Take 1 tablet by mouth once daily. 90 tablet 3 levothyroxine (SYNTHROID) 75 mcg tablet TAKE 1 TABLET BY MOUTH IN THE MORNING ON AN EMPTY STOMACH 270 tablet 0 warfarin (COUMADIN) 3 mg tablet take 1 tablet by mouth daily as directed (Patient taking differently: Take 3 mg by mouth once daily. Except Tuesday she takes 2 MG) 90 tablet 3 warfarin (COUMADIN) 2 mg tablet Take 1 tablet by mouth daily as directed. (Patient taking differently: Take (more content not included)... Normal [facility] INR (POC)on 10-04-2024 INR Coag (PPP) [Relative time] 2.1 {INR} High 0.8 - 1.2 [facility] Internal Quality Check Acceptable [facility] Interpretation and review of laboratory results Abnormal [facility] Location:[facility], [address], [place], [address] [facility] POINT OF CARE [facility] Prothrombin Time w/INRon INR Coag (PPP) [Relative time] 2.1 {INR} Normal [facility] Comment on above: Performed By: #### L 818.9107 #### [facility] [address] [place], [address] PT Coag (PPP) [Time] 23.5 s High 11.7-14.9 [facility] Comment on above: Performed By: #### L 300.3900 #### [facility] [address] [place], [address] Prothrombin Time w/INRon INR Coag (PPP) [Relative time] 1.9 {INR} Normal [facility] Comment on above: Order Comment: 405.2 Performed By: #### L 300.3900 #### [facility] [address] [place], [address] PT Coag (PPP) [Time] 21.7 s High 11.7-14.9 [facility] Comment on above: Order Comment: 405.2 Performed By: #### L 300.3900 #### [facility] [address] [place], [address] Renal Profileon 08-21-2024 Albumin [Mass/Vol] 3.7 g/dL Normal 3.2-5.0 [facility] Comment on above: Order Comment: 405.2 Performed By: #### L 500.3600 #### [facility] [address] [place], [address] BUN/CRE 13.0 RATIO Normal 10-20 [facility] Comment on above: Order Comment: 405.2 Performed By: #### L 500.3600 #### [facility] [address] [place], [address] CA,Total 9.3 mg/dL Normal 8.5-10.1 [facility] Comment on above: Order Comment: 405.2 Performed By: #### L 500.3600 #### [facility] [address] [place], [address] Chloride [Moles/Vol] 98 mmol/L Normal 98-107 [facility] Comment on above: Order Comment: 405.2 Performed By: #### L 500.3600 #### [facility] [address] [place], [address] CO2 [Moles/Vol] 27.0 mmol/L Normal 21.0-32.0 [facility] Comment on above: Order Comment: 405.2 Performed By: #### L 500.3600 #### [facility] [address] [place], [address] Creatinine [Mass/Vol] 0.77 mg/dL Normal 0.55-1.02 [facility] Comment on above: Order Comment: 405.2 Result Comment: The validity of the calculated GFR GFRAA in patients over 70 years has not been determined. Clinical correlation is essential. Performed By: #### L 500.3600 #### [facility] [address] [place], [address] EST GFR - AA 91 mL/min Normal >60 [facility] Comment on above: Order Comment: 405.2 Result Comment: Afri can [place] GFR Calc Performed By: #### L 500.3600 #### [facility] [address] [place], [address] GFR/1.73 sq M.predicted among non-blacks MDRD (S/P/Bld) [Vol rate/Area] 75 mL/min/{1.73_m2} Normal >60 [facility] Comment on above: Order Comment: 405.2 Result Comment: Non- GFR Calc Performed By: #### L 500.3600 #### [facility] [address] [place], [address] Glucose [Mass/Vol] 103 mg/dL Normal 74-106 [facility] Comment on above: Order Comment: 405.2 Result Comment: Fast ing Glucose result from 100 to 125 mg/dL suggests IMPAIRED HOMEOSTASIS per A.D.A. criteria. Performed By: #### L 500.3600 #### [facility] [address] [place], [address] Phosphate [Mass/Vol] 2.8 mg/dL Normal 2.5-4.9 [facility] Comment on above: Order Comment: 405.2 Performed By: #### L 500.3600 #### [facility] [address] [place], [address] Potassium [Moles/Vol] 4.3 mmol/L Normal 3.5-5.1 [facility] Comment on above: Order Comment: 405.2 Performed By: #### L 500.3600 #### [facility] [address] [place], [address] Sodium [Moles/Vol] 132 mmol/L Low 136-145 [facility] Comment on above: Order Comment: 405.2 Performed By: #### L 500.3600 #### [facility] [address] [place], [address] Urea nitrogen [Mass/Vol] 10 mg/dL Normal 7-18 [facility] Comment on above: Order Comment: 405.2 Performed By: #### L 500.3600 #### [facility] [address] [place], [address] Prothrombin Time w/INRon INR Coag (PPP) [Relative time] 1.2 {INR} Normal [facility] Comment on above: Performed By: #### L 300.3900 #### [facility] [address] [place], [address] PT Coag (PPP) [Time] 15.0 s High 11.7-14.9 [facility] Comment on above: Performed By: #### L 300.3900 #### [facility] [address] [place], [address] Basic metabolic 2000 panelon 08-14-2024 Anion gap [Moles/Vol] 9 mmol/L Normal 8-15 [facility] Comment on above: Order Comment: Speci men Type: BLOOD SPECIMENOrdering Facility: [facility] Address: [address] [place] [address] Performed By: #### 2 4321-2 ####[facility] LABORATORYCLIA [id number] [place] [address] [place] Calcium [Mass/Vol] 9.5 mg/dL Normal 8.5-10.2 [facility] Comment on above: Order Comment: Speci men Type: BLOOD SPECIMENOrdering Facility: [facility] Address: [address] [place] [address] Performed By: #### 2 4321-2 ####[facility] LABORATORYCLIA [id number] [place] [address] [place] Chloride [Moles/Vol] 99 mmol/L Normal 98-107 [facility] Comment on above: Order Comment: Speci men Type: BLOOD SPECIMENOrdering Facility: [facility] Address: [address] [place] [address] Performed By: #### 2 4321-2 ####[facility] LABORATORYCLIA [id number] [place] [address] [place] CO2 [Moles/Vol] 28 mmol/L Normal 22-30 [facility] Comment on above: Order Comment: Speci men Type: BLOOD SPECIMENOrdering Facility: [facility] Address: [address] [place] [address] Performed By: #### 2 4321-2 ####[facility] LABORATORYCLIA [id number] [address] [place] Creatinine [Mass/Vol] 0.87 mg/dL Normal 0.58-0.96 [facility] Comment on above: Order Comment: Speci men Type: BLOOD SPECIMENOrdering Facility: [facility] Address: [address] [place] [address] Performed By: #### 2 4321-2 ####[facility] LABORATORYCLIA [id number] [address] [place] Creatinine and Glomerular filtration rate.predicted panel (S/P/Bld) 65 mL/min/1.73m??? Normal >=60 [facility] Comment on above: Order Comment: Speci men Type: BLOOD SPECIMENOrdering Facility: [facility] Address: [address] [place] [address] Result Comment: Dolores mated Glomerular Filtration Rate (eGFR) is calculated using the 2020 CKD-EPI creatinine equation. This equation utilizes serum creatinine, sex, and age as parameters. The creatinine assay has traceable calibration to isotope dilution-mass spectrometry. Refer to KDIGO guidelines for clinical interpretation. In patients with unstable renal function, e.g. those with acute kidney injury, the eGFR may not accurately reflect actual GFR. Performed By: #### 2 4321-2 ####[facility]ORATORYCLIA [id number] [place] [address] [place] Glucose [Mass/Vol] 109 mg/dL High 74-99 [facility] Comment on above: Order Comment: Marti hankins Type: BLOOD SPECIMENOrdering Facility: [facility] Address: [address] [place] [address] Result Comment: The [place] Diabetes Association (ADA) provides guidance for cutoff values for fasting glucose and random glucose. The ADA defines fasting as no caloric intake for at least 8 hours. Fasting plasma glucose results between 100 to 125 mg/dL indicate increased risk for diabetes (prediabetes). Fasting plasma glucose results greater than or equal to 126 mg/dL meet the criteria for diagnosis of diabetes. In the absence of unequivocal hyperglycemia, results should be confirmed by repeat testing. In a patient with classic symptoms of hyperglycemia or hyperglycemic crisis, random plasma glucose results greater than or equal to 200 mg/dL meet the criteria for diagnosis of diabetes. Reference: Standards of Medical Care in Diabetes 2016, [place] Diabetes Association. Diabetes Care. 2016.39(Suppl 1). Performed By: #### 2 4321-2 ####[facility] LABORATORYCLIA [id number] [place] [id number] [place] Potassium [Moles/Vol] 4.6 mmol/L Normal 3.7-5.1 [facility] Comment on above: Order Comment: Marti hankins Type: BLOOD SPECIMENOrdering Facility: [facility] Address: [address] [place] [id number] Performed By: #### 2 4321-2 ####[facility] LABORATORYCLIA [id number] [place] [id number] [place] Sodium [Moles/Vol] 136 mmol/L Normal 136-144 [facility] Comment on above: Order Comment: Speci men Type: BLOOD SPECIMENOrdering Facility: [facility] Address: [address] [place] [address] Performed By: #### 2 4321-2 ####[facility] LABORATORYCLIA [id number] [address] Urea nitrogen [Mass/Vol] 29 mg/dL High 7-21 [facility] Comment on above: Order Comment: Speci men Type: BLOOD SPECIMENOrdering Facility: [facility] Address: [address] [place] [address] Performed By: #### 2 4321-2 ####MEYER LABORATORYCLIA [id number] [address] CNDSon 08-14-2024 CNDS HNO ID: [id number] Author: EVANGELISTA SOMMERS MD Service: Hospital Medicine Author Type: Physician Type: Discharge Summary Filed: 08/14/2024 13:17 Note Text: DISCHARGE SUMMARY PATIENT NAME: Helen Lieberman Code Status: DNR-CCA, DNI Highest Readmission Risk Score: 16 The 30 day readmissions risk score is derived from an internally validated risk model which evaluates patient level characteristics, utilization history, medication orders and lab results up until the day of discharge. Patients with a score of 40 or above are considered highest risk for readmission. Specific patient level drivers will be listed at the bottom of the summary. Admission Information Admission Information ADMIT DATE: 08/09/2024 DISCHARGE DATE: 08/14/2024 MY DOCTORS AND MEDICAL TEAM: My Main Hospital Doctor: Evangelista Sommers MD Primary Care Provider: Tanya Lozano APRN.[employer] My Medical Team Members: Treatment Team: Attending Provider: Evangelista Sommers MD Consulting: Wandy Alvarez MD Consulting: Tomeka Gore MD MY CONDITION AT DISCHARGE: Stable REASON I WAS IN THE HOSPITAL: Fall with care in hamstring tendon SUMMARY OF WHAT HAPPENED WHILE I WAS IN THE HOSPITAL: Warfarin was held and can be resumed at her normal maintenance dose with checking INR every 3 days until she is therapeutic. Would not increase the dosage from her baseline as a gradual increase in the INR makes her less likely to rebleed into the tendon. She is seen by physical Occupational Therapy a surgical repair was not felt to be appropriate. She will follow-up with Dr. Alvarez as an outpatient in 2 weeks for reevaluation. OTHER PROBLEMS/DIAGNOSIS: Principal Problem: Fall at home, sequela Active Problems: Hamstring injury, left, initial encounter Hematoma of left thigh Left hip pain Essential hypertension, benign Atrial fibrillation (HCC) Chronic diastolic CHF (congestive heart failure) (HCC) Elevated troponin level Hyponatremia Hypothyroidism GERD (gastroesophageal reflux disease) Hx-TIA (transient ischemic attack) Resolved Problems: * No resolved hospital problems. * OPERATIONS PERFORMED WHILE IN THE HOSPITAL: None IMPORTANT TEST/PROCEDURES: No procedures performed TEST RESULTS NOT AVAILABLE AT THIS TIME: No pending results Discharge Disposition Discharge Disposition: Home With Self Care Activity When You Leave the Hospital Limited to: Activity levels are to be directed by the assessments of the occupational and physical therapists. Diet Instructions Resume your pre-hospital diet For Pain When You Leave the Hospital Use acetaminophen (Tylenol) as recommended on the bottle Follow Up Appointments Follow-Up Rf Manager should call in 1-2 business days to arrange appointment in less than 2 weeks. When: In 2 weeks Patient/Parents to call for appointment?: Scheduled Wandy Alvarez MD [phone] [address] PCP Requested Referral Additional Provider to Provider Information: Disposition: shelter [facility] Consultants: Dr. 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 Blood pressure has been labile with her pain and Dr. Gore has the blood pressure medications the way he wants them and any questions on the blood pressure medication changes should be referred to him as he will be following her for her . Patient has hamstring tear -weightbearing as tolerated and reevaluation by Dr. Alvarez in 2 weeks Follow-up with Dr. Gore for hyponatremia and blood pressure issues. OBJECTIVE MRI 08/10/2024 IMPRESSION: Complete tear of the LEFT proximal conjoint hamstring tendon with extensive intramuscular and perifascial edema/hemorrhage throughout the posterior compartment of the LEFT thigh. 5.5 cm organized hematoma in the proximal semitendinosus muscle with areas of internal nodular enhancement. Given the enhancement, a follow-up MRI in 3-6 months is recommended to ensure resolution of this finding. EK08/09/2024 sinus rhythm first-degree AV block RSR prime in V1 consistent with bronchospasm similar to EKG 09/07/2023 ECHOCARDIOGRAM: 09/08/2023 The left ventricle is normal in size. There is mild septal left ventricular hypertrophy. Left ventricular systolic function is normal. EF = 62 ? 5% (2D biplane) Grade II left ventricu (more content not included)... Normal [facility] 08-13-2024 [facility] Telephone (H[facility]) HELEN LIEBERMAN ([id number]) 1935 F Date Time Provider Department 08/13/24 MIRTA CHRISTIAN HCSIND During your visit today, we recorded the following information about you: Mirta Christian 08/13/2024 8:46 AM Signed Date/Time: 08/13/2024 8:44 AM Spoke with Hleen @ phone #: [phone] - Preferred # for contact: [phone] Have you received help from a home care company in the last 60 days? no Are you agreeable to [facility] services? yes What address will we be seeing you at? [address] [place] [address] [place] [address] Do you have any upcoming appointments or things we need to schedule around? no Do you have a teachable CG or can you manage your care independently? Have you received the flu shot? no If so, when and where? no Allergies As of Date: 08/13/2024 Noted Allergy Reaction AMLODIPINE 08/11/2024 14 - Other: See Comments Comments: Very intense leg cramps PENICILLINS 07/24/2021 16 - Unknown SULFA (SULFONAMIDE ANTIBIOTICS) 07/24/2021 16 - Unknown TETRACYCLINES 07/24/2021 16 - Unknown Date Reviewed: 08/13/2024 Reviewed by: Jossy Meza RN - Fully Assessed Reason for Visit: Home Care [4073] Cmt: Confirmation Call Prescriptions as of 08/13/2024 - carvedilol (COREG) 12.5 mg tablet Take 2 tablets by mouth two times a day. TAKE WITH FOOD. - oxybutynin XL (DITROPAN XL) 5 mg 24 hr tablet Take 1 tablet by mouth once daily. - pantoprazole DR (PROTONIX) 40 mg tablet Take 1 tablet by mouth once daily. - losartan (COZAAR) 100 mg tablet Take 1 tablet by mouth once daily. - levothyroxine (SYNTHROID) 75 mcg tablet TAKE 1 TABLET BY MOUTH IN THE MORNING ON AN EMPTY STOMACH - warfarin (COUMADIN) 3 mg tablet take 1 tablet by mouth daily as directed - warfarin (COUMADIN) 2 mg tablet Take 1 tablet by mouth daily as directed. - warfarin (COUMADIN) 4 mg tablet Take 1 tablet by mouth once daily. - hyoscyamine sublingual (LEVSIN SL) 0.125 mg TAKE 1 TABLET UNDER THE TONGUE EVERY 6 HOURS NEEDED - polyethylene glycol 3350 (MIRALAX, GLYCOLAX) 17 gram packet Take 17 g by mouth once daily. Dissolve dose in 4 - 8 ounces of liquid and take as directed. - Cholecalciferol, Vitamin D3, 50 mcg (2,000 unit) cap Take by mouth once daily. Facility-Administered Medications as of 08/13/2024 - urea 15 g oral powder (URE-NA) - carvedilol 12.5 mg tab(s) (COREG) - magnesium oxide 400 mg tab(s) (MAG-OX) - acetaminophen 1,000 mg tab(s) (TYLENOL) - oxyCODONE IR 5 mg tab(s) (ROXICODONE) - oxyCODONE IR 10 mg tab(s) (ROXICODONE) - losartan 100 mg tab(s) (COZAAR) - pantoprazole DR 40 mg tab(s) (PROTONIX) - polyethylene glycol 3350 17 g packet - levothyroxine 75 mcg tab(s) (SYNTHROID) - NaCl 0.9% iv flush bag - ondansetron orally disintegrating 4 mg tab(s) (ZOFRAN ODT) - ondansetron (PF) 4 mg injection (ZOFRAN) Problem List As Of Date 08/13/2024 Noted Resolved Essential hypertension, benign [I10] 03/20/2015 Hypothyroidism [E03.9] 03/20/2015 Atrial fibrillation (HCC) [I48.91] 07/29/2021 TIA (transient ischemic attack) [G45.9] 08/09/2021 GERD (gastroesophageal reflux disease) [K21.9] 08/09/2021 Vertigo [R42] 08/09/2021 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] 08/25/2021 Syncope [R55] 09/07/2023 09/08/2023 Syncope and collapse [R55] 09/07/2023 09/08/2023 Chronic diastolic CHF (congestive heart failure*09/08/2023 Hx-TIA (transient ischemic attack) [Z86.73] 08/09/2024 Hyponatremia [E87.1] 08/09/2024 Elevated troponin level [R79.89] 08/09/2024 Fall at home, sequela [W19.XXXS, Y92.009] 08/09/2024 Left hip pain [M25.552] 08/09/2024 Hematoma of left thigh [S70.12XA] 08/09/2024 Hamstring injury, left, initial encounter [S76.*08/10/2024 Encounter Status:Closed by MIRTA CHRISTIAN on 08/13/24 Normal [facility] CONSULT PROGon 08-13-2024 CONSULT PROG HNO ID: [id number] Author: TOMEKA GORE MD Service: Nephrology Author Type: Physician Type: Consult Progress Note Filed: 08/13/2024 14:04 Note Text: Patient seen and examined. She doesn't like taking the urea. Feels a bit better. Eating [employer] brought in by family. Blood pressure 140/76, pulse 61, temperature 37.2 ?C (99 ?F), temperature source Oral, resp. rate 17, height 157.5 cm (5' 2), weight 54.2 kg (119 lb 7.8 oz), SpO2 100%. Intake/Output Summary (Last 24 hours) at 08/13/2024 1359 Last data filed at 08/12/2024 1425 Gross per 24 hour Intake -- Output 200 ml Net -200 ml Gen: NAD Resp: clear CVS: no rub Abd: soft Ext: no edema Na 129, Cr 0.9, BUN 39 Uric 2.8 UA bland Sodium 84, Osm 408 Impression: Acute on chronic hyponatremia - some ADH release in setting of hamstring tear but worsened by HCTZ (she has had to stop this in past due to hyponatremia) HTN - partially reactive this admission now improved Plan: No HCTZ going forward Stop urea Fluid restriction OK for DC to rehab from renal standpoint She follows with me in the office Normal [facility] Renal function 2000 panelon 08-13-2024 Albumin [Mass/Vol] 3.8 g/dL Low 3.9-4.9 [facility] Comment on above: Order Comment: Speci men Type: BLOOD SPECIMENOrdering Facility: [facility] Address: [address] [place] [address] Performed By: #### 2 4362-6 ####[facility] LABORATORYCLIA [id number] [place] [address] [place] Anion gap [Moles/Vol] 7 mmol/L Low 8-15 [facility] Comment on above: Order Comment: Speci men Type: BLOOD SPECIMENOrdering Facility: [facility] Address: [address] [place] [address] Performed By: #### 2 4362-6 ####[facility] LABORATORYCLIA [id number] [address] [place] Calcium [Mass/Vol] 9.6 mg/dL Normal 8.5-10.2 [facility] Comment on above: Order Comment: Speci men Type: BLOOD SPECIMENOrdering Facility: [facility] Address: [address] [place] [id number] Performed By: #### 2 4362-6 ####[facility] LABORATORYCLIA [id number] [address] STATES [facility] Chloride [Moles/Vol] 93 mmol/L Low 98-107 [facility] Comment on above: Order Comment: Marti men Type: BLOOD SPECIMENOrdering Facility: [facility] Address: [address] [place] [address] Performed By: #### 2 4362-6 ####[facility] LABORATORYCLIA [id number] [address] CO2 [Moles/Vol] 29 mmol/L Normal 22-30 [facility] Comment on above: Order Comment: Marti hankins Type: BLOOD SPECIMENOrdering Facility: [facility] Address: [address] [place] [address] Performed By: #### 2 4362-6 ####[facility] LABORATORYCLIA [id number] [address] Creatinine [Mass/Vol] 0.93 mg/dL Normal 0.58-0.96 [facility] Comment on above: Order Comment: Marti [facility] Type: BLOOD SPECIMENOrdering Facility: [facility] Address: [address] [place] [address] Performed By: #### 2 4362-6 ####ME[facility]ER LABORATORYCLIA [id number] [address] Creatinine and Glomerular filtration rate.predicted panel (S/P/Bld) 60 mL/min/1.73m??? Normal >=60 [facility] Comment on above: Order Comment: Marti [facility] Type: BLOOD SPECIMENOrdering Facility: [facility] Address: [address] [place] [address] Result Comment: Dolores mated Glomerular Filtration Rate (eGFR) is calculated using the 2020 CKD-EPI creatinine equation. This equation utilizes serum creatinine, sex, and age as parameters. The creatinine assay has traceable calibration to isotope dilution-mass spectrometry. Refer to KDIGO guidelines for clinical interpretation. In patients with unstable renal function, e.g. those with acute kidney injury, the eGFR may not accurately reflect actual GFR. Performed By: #### 2 4362-6 ####[facility] LABORATORYCLIA [id number] [place] [address] [place] Glucose [Mass/Vol] 114 mg/dL High 74-99 [facility] Comment on above: Order Comment: Marti hankins Type: BLOOD SPECIMENOrdering Facility: [facility] Address: [address] [place] [address] Result Comment: The [place] Diabetes Association (ADA) provides guidance for cutoff values for fasting glucose and random glucose. The ADA defines fasting as no caloric intake for at least 8 hours. Fasting plasma glucose results between 100 to 125 mg/dL indicate increased risk for diabetes (prediabetes). Fasting plasma glucose results greater than or equal to 126 mg/dL meet the criteria for diagnosis of diabetes. In the absence of unequivocal hyperglycemia, results should be confirmed by repeat testing. In a patient with classic symptoms of hyperglycemia or hyperglycemic crisis, random plasma glucose results greater than or equal to 200 mg/dL meet the criteria for diagnosis of diabetes. Reference: Standards of Medical Care in Diabetes 2016, [place] [employer] Association. Diabetes Care. 2016.39(Suppl 1). Performed By: #### 2 4362-6 ####[facility] LABORATORYCLIA [id number] [place] [address] [place] Phosphate [Mass/Vol] 3.6 mg/dL Normal 2.7-4.8 [facility] Comment on above: Order Comment: Marti hankins Type: BLOOD SPECIMENOrdering Facility: [facility] Address: [address] [place] [address] Performed By: #### 2 4362-6 ####[facility] LABORATORYCLIA [id number] [place] [address] [place] Potassium [Moles/Vol] 4.3 mmol/L Normal 3.7-5.1 [facility] Comment on above: Order Comment: Marti hankins Type: BLOOD SPECIMENOrdering Facility: [facility] Address: [address] [place] [address] Performed By: #### 2 4362-6 ####[facility] LABORATORYCLIA [id number] [place] [address] [place] Sodium [Moles/Vol] 129 mmol/L Low 136-144 [facility] Comment on above: Order Comment: Speci cr Type: BLOOD SPECIMENOrdering Facility: [facility] Address: [address] [place] [address] Performed By: #### 2 4362-6 ####[facility] LABORATORYCLIA [id number] [place] [id number] [facility] Urea nitrogen [Mass/Vol] 39 mg/dL High 7-21 [facility] Comment on above: Order Comment: Marti hankins Type: BLOOD SPECIMENOrdering Facility: [facility] Address: [address] [place] [address] Performed By: #### 2 4362-6 ####[facility] LABORATORYCLIA [id number] [address] THERAPY NTon 08-13-2024 THERAPY NT HNO ID: [id number] Author: MONIKA BATEMAN OTR/L Service: Occupational Therapy Author Type: Occupational Therapist Type: Therapy (PT/OT/Speech/Resp) Filed: 08/13/2024 15:22 Note Text: Summary: OT treatment Occupational Therapy Treatment Summary SERVICE DATE: 08/13/2024 SERVICE TIME: 1440 to 1458 ROOM: [id number]-[id number] OT 6 Clicks Score: 20 DISCHARGE RECOMMENDATIONS Subacute/SNF Recommended Discharge Disposition Due to: Functional deficits requiring ongoing therapy service prior to discharge home., ADL impairment, Anticipated community discharge, Requires multiple therapy disciplines Anticipated Discharge Needs: Physical Assist at Home Physical Assist at Home for: Cleaning, Laundry, Shopping, Transportation, Self Care, Safety, Meals Supervision at Home due to: Decreased safety awareness ASSESSMENT Response to Therapy Interventions: Good Participation in Activities, Low Activity Tolerance, Pain, Requires Additional Time to Complete Activities patient demonstrates decreased ability to perform daily tasks secondary to pain and weakness. She will benefit from continued occupational therapy to increase ease and safety for functional mobilty and self care tasks PRECAUTIONS Fall Risk, Weight Bearing Restrictions Left Lower Extremity Weight Bearing Status: WBAT CURRENT HOSPITAL COURSE fall at home: MRI: IMPRESSION: Complete tear of the LEFT proximal conjoint hamstring tendon with extensive intramuscular and perifascial edema/hemorrhage throughout the posterior compartment of the LEFT thigh. 5.5 cm organized hematoma in the proximal semitendinosus muscle with areas of internal nodular enhancement. Relevant Past Medical History: HTN, HFpEF, AFIB (on Coumadin), hx TIA, and [facility] Patient Lives With: Spouse, Family (grandson who works from home) Assistance Available: 24-Hour Entry To Home: Stairs, With Rail Number Of Stairs Into Home: 5 Number Of Stairs To Bed/Bath: (1 story home, but has a sunkin living room with 2 steps (luis is going to put a grab bar there, this is where she fell)) Tub/Shower Type: walk in shower Laundry: first floor patient completes Equipment Owned: Cane, Grab Bars- Shower, Organ Fixer, Long Handled Sponge PRIOR FUNCTIONAL LEVEL Within Functional Limits Independnet with ADLS IADLS. No device. + driving Baseline Cognition: Oriented to self, Oriented to place, Oriented to time SUBJECTIVE I am going to a [facility] for rehab. COGNITION Responsiveness: Alert, Awake Follows Commands: 3-step Commands 4AT Score: 0 (08/10/24) Delirium Positive/Negative: Negative (08/10/24) THERAPY DIAGNOSIS Decreased activities of daily living (ADL) TREATMENT INTERVENTIONS Therapeutic Activity (87306) Timed Code Treatment (minutes): 15 Skilled Treatment Time (minutes): 15 TRAINING AND EDUCATION PROVIDED Activity Adaptation/Compensatory Strategies, Bed Mobility, Benefits of In-Hospital Mobility, Transfer - Sit to Stand, Role of Occupational Therapy, Safety/Judgment, Precautions/Restriction s, Positioning, Meaningful Hobby/Leisure Participation, Expected Functional Level, Discharge Planning, Life Roles/Routines/Habits, Sitting Balance to Improve [place] with ADLs/Self-Care, Transfer - Bed to Chair THERAPEUTIC SKILLS USED Activity Dosing, Cuing Tactile, Cuing Verbal, Cuing Visual, Cues for Sequencing/Proper Technique for Activity, Therapeutic Use of Self, Teach-Back for Education, Physical Assist, Muscle Activation Facilitation, Movement Facilitation FUNCTIONAL STATUS Activities of Daily Living Assist Level Additional Information Feeding Independent Grooming Contact Guard Assistance, Additional Information per clinical judgement while standing Bathing Upper Body Set Up, Additional Information per clinical judgement Bathing Lower Body Contact Guard Assistance, Additional Information per clinical judgement while seated Dressing Upper Body Stand By Assistance Dressing Lower Body Contact Guard Assistance, Additional Information per clinical judgement while seated Toileting Contact Guard Assistance Mobility Assist Level Additional Information Bed Mobility Rolling: Stand By Assistance Supine To Sit: Stand By Assistance Sit To Supine: Stand By Assistance Sit to Stand Minimal Assistance, Additional Information instruction on sequencing and techinique Stand to Sit Contact Guard Assistance, Additional Information instruction on sequencing and technique Bed to Chair Contact Guard Assistance, Additional Information Bed To Chair Transfer Type: Stepping Bed To Chair Transfer Equipment: Wheeled Walker instruction on sequencing and technique to assist with increased pain with wB Toilet/Commode Shower Functional Mobility GOALS Patient will demonstrate underst (more content not included)... Normal [facility] Basic metabolic 2000 panelon 08-12-2024 Anion gap [Moles/Vol] 8 mmol/L Normal 8-15 [facility] Comment on above: Order Comment: Speci men Type: BLOOD SPECIMEN [facility] Address: [address] [place] [address] Performed By: #### 5 8410-2 #### [facility] CLIA [id number] [address] [place] [address] [place] Calcium [Mass/Vol] 9.2 mg/dL Normal 8.5-10.2 [facility] Comment on above: Order Comment: Speci men Type: BLOOD SPECIMEN [facility] Address: [address] [place] [address] Performed By: #### 5 8410-2 #### [facility] CLIA [id number] [address] [place] [address] [place] Chloride [Moles/Vol] 86 mmol/L Low 98-107 [facility] Comment on above: Order Comment: Speci men Type: BLOOD SPECIMEN [facility] Address: [address] [place] [address] Performed By: #### 5 8410-2 #### [facility] CLIA [id number] [address] [place] [address] [place] CO2 [Moles/Vol] 29 mmol/L Normal 22-30 [facility] Comment on above: Order Comment: Marti hankins Type: BLOOD SPECIMEN [facility] Address: [address] [place] [address] Performed By: #### 5 8410-2 #### [facility] CLIA [id number] [address] Creatinine [Mass/Vol] 0.86 mg/dL Normal 0.58-0.96 [facility] Comment on above: Order Comment: Marti hankins Type: BLOOD SPECIMEN [facility] Address: [address] [place] [address] Performed By: #### 5 8410-2 #### [facility] CLIA [id number] [address] Creatinine and Glomerular filtration rate.predicted panel (S/P/Bld) 65 mL/min/1.73m??? Normal >=60 [facility] Comment on above: Order Comment: Marti hankins Type: BLOOD SPECIMEN [facility] Address: [address] [place] [address] Result Comment: Dolores mated Glomerular Filtration Rate (eGFR) is calculated using the 2020 CKD-EPI creatinine equation. This equation utilizes serum creatinine, sex, and age as parameters. The creatinine assay has traceable calibration to isotope dilution-mass spectrometry. Refer to KDIGO guidelines for clinical interpretation. In patients with unstable renal function, e.g. those with acute kidney injury, the eGFR may not accurately reflect actual GFR. Performed By: #### 5 8410-2 #### [facility] CLIA [id number] [address] [place] Glucose [Mass/Vol] 153 mg/dL High 74-99 [facility] Comment on above: Order Comment: Marti hankins Type: BLOOD SPECIMEN [facility] Address: [address] [place] [address] Result Comment: The [place] Diabetes Association (ADA) provides guidance for cutoff values for fasting glucose and random glucose. The ADA defines fasting as no caloric intake for at least 8 hours. Fasting plasma glucose results between 100 to 125 mg/dL indicate increased risk for diabetes (prediabetes). Fasting plasma glucose results greater than or equal to 126 mg/dL meet the criteria for diagnosis of diabetes. In the absence of unequivocal hyperglycemia, results should be confirmed by repeat testing. In a patient with classic symptoms of hyperglycemia or hyperglycemic crisis, random plasma glucose results greater than or equal to 200 mg/dL meet the criteria for diagnosis of diabetes. Reference: Standards of Medical Care in Diabetes 2016, [place] [employer]. Diabetes Care. 2016.39(Suppl 1). Performed By: #### 5 8410-2 #### [facility] CLIA [id number] [address] [place] [address] [place] Potassium [Moles/Vol] 4.1 mmol/L Normal 3.7-5.1 [facility] Comment on above: Order Comment: Marti hankins Type: BLOOD SPECIMEN [facility] Address: [address] [place] [address] Performed By: #### 5 8410-2 #### [facility] CLIA [id number] [address] [place] Sodium [Moles/Vol] 123 mmol/L Low 136-144 [facility] Comment on above: Order Comment: Marti hankins Type: BLOOD SPECIMEN [facility] Address: [address] [place] [address] Performed By: #### 5 8410-2 #### [facility] CLIA [id number] [address] [place] Urea nitrogen [Mass/Vol] 13 mg/dL Normal 7-21 [facility] Comment on above: Order Comment: Marti hankins Type: BLOOD SPECIMEN [facility] Address: [address] [place] [address] Performed By: #### 5 8410-2 #### [facility] CLIA [id number] [address] [place] CBC panel Auto (Bld)on 08-12 Erythrocyte distribution width (RBC) [Ratio] 12.2 % Normal 11.5-15.0 [facility] Comment on above: Order Comment: Speci men Type: BLOOD SPECIMENOrdering Facility: [facility] Address: [address] [place] [address] Performed By: #### 5 8410-2 ####[facility] LABORATORYCLIA [id number] [address] Hematocrit (Bld) [Volume fraction] 32.3 % Low 36.0-46.0 [facility] Comment on above: Order Comment: Speci men Type: BLOOD SPECIMENOrdering Facility: [facility] Address: [address] [place] [address] Performed By: #### 5 8410-2 ####[facility] LABORATORYCLIA [id number] [address] Hemoglobin (Bld) [Mass/Vol] 11.1 g/dL Low 11.5-15.5 [facility] Comment on above: Order Comment: Speci men Type: BLOOD SPECIMENOrdering Facility: [facility] Address: [address] [place] [address] Performed By: #### 5 8410-2 ####[facility] LABORATORYCLIA [id number] [address] MCH (RBC) [Entitic mass] 32.6 pg Normal 26.0-34.0 [facility] Comment on above: Order Comment: Speci men Type: BLOOD SPECIMENOrdering Facility: [facility] Address: [address] [place] [address] Performed By: #### 5 8410-2 ####[facility] LABORATORYCLIA [id number] [address] MCHC (RBC) [Mass/Vol] 34.4 g/dL Normal 30.5-36.0 [facility] Comment on above: Order Comment: Speci men Type: BLOOD SPECIMENOrdering Facility: [facility] Address: [address] [place] [address] Performed By: #### 5 8410-2 ####[facility] LABORATORYCLIA [id number] [address] MCV (RBC) [Entitic vol] 95.0 fL Normal 80.0-100.0 M [facility] Comment on above: Order Comment: Speci men Type: BLOOD SPECIMENOrdering Facility: [facility] Address: [address] [place] [address] Performed By: #### 5 8410-2 ####[facility] LABORATORYCLIA [id number] [address] [place] Nucleated RBC (Bld) [#/Vol] 10*3/uL Normal <0.01 [facility] Comment on above: Order Comment: Speci men Type: BLOOD SPECIMENOrdering Facility: [facility] Address: [address] [place] [address] Performed By: #### 5 8410-2 ####[facility] LABORATORYCLIA [id number] [address] [place] Platelet mean volume (Bld) [Entitic vol] 9.1 fL Normal 9.0-12.7 [facility] Comment on above: Order Comment: Speci men Type: BLOOD SPECIMENOrdering Facility: [facility] Address: [address] [place] [address] Performed By: #### 5 8410-2 ####[facility] LABORATORYCLIA [id number] [address] [place] Platelets (Bld) [#/Vol] 274 10*3/uL Normal 150-400 [facility] Comment on above: Order Comment: Speci men Type: BLOOD SPECIMENOrdering Facility: [facility] Address: [address] [place] [address] Performed By: #### 5 8410-2 ####[facility] LABORATORYCLIA [id number] [place] [address] [place] RBC (Bld) [#/Vol] 3.40 10*6/uL Low 3.90-5.20 [facility] Comment on above: Order Comment: Speci men Type: BLOOD SPECIMENOrdering Facility: [facility] Address: [address] [place] [address] Performed By: #### 5 8410-2 ####[facility] LABORATORYCLIA [id number] [place] [id number] [facility] WBC (Bld) [#/Vol] 7.57 10*3/uL Normal 3.70-11.00 [facility] Comment on above: Order Comment: Speci men Type: BLOOD SPECIMENOrdering Facility: [facility] Address: Formerly named [facility] [place] [address] Performed By: #### 5 8410-2 ####[facility] LABORATORYCLIA [id number] [place] [id number] [facility] CONSULTon 08-12-2024 CONSULT HNO ID: [id number] Author: REJI MENDOZA MD Service: Nephrology Author Type: Physician Type: Consults Filed: 08/12/2024 06:52 Note Text: CONSULT NEPHROLOGY SERVICE DATE: 08/12/2024 SERVICE TIME: 6:15am Subjective HPI: Helen Lieberman is a 88 year old female being seen in consultation at the request of Dr. Sommers, Evangelista Rodríguez MD for advice and/or opinion regarding the management of hyponatremia. The patient reports having a mechanical fall at home going down steps. There was no pre-syncopal/syncopal episode. She was found to have a hamstring injury which has limited mobility. On admission she had a sodium level of 129 which increased to 131 before dropping to 127. She does have a history of hyponatremia and was previously on a thiazide diuretic and it was stopped due to hyponatremia. She does reports drinking a large amount of fluid as a habit. PAST MEDICAL HISTORY: PAST MEDICAL HISTORY Diagnosis Date Atrial fibrillation (HCC) 07/29/2021 Essential hypertension Gallstone pancreatitis Pancreatitis PAST SURGICAL HISTORY: PAST SURGICAL HISTORY Procedure Laterality Date SECTION HX x4 FOOT SURGERY HX right side HERNIA REPAIR HX KNEE SURGERY HX Right REMOVAL GALLBLADDER FAMILY HISTORY: FAMILY HISTORY Problem Relation Age of Onset Stroke Mother other (tia) Sister Diabetes Sister Dementia Sister Lung Cancer Sister Stroke Sister Hypertension Sister Heart Brother SOCIAL HISTORY: Social History Tobacco Use Smoking status: Never Smokeless tobacco: Never Vaping Use Vaping status: Never Used Substance Use Topics Alcohol use: Yes Comment: Rarely Drug use: Never MEDICATIONS: Prior to Admission Medications: carvedilol (COREG) 12.5 mg tabletTake 2 tablets by mouth two times a day. TAKE WITH FOOD.Disp: 360 tabletRfl: [address] (PROTONIX) 40 mg tabletTake 1 tablet by mouth once daily.Disp: 90 tabletRfl: 3 losartan (COZAAR) 100 mg tabletTake 1 tablet by mouth once daily.Disp: 90 tabletRfl: 3 levothyroxine (SYNTHROID) 75 mcg tabletTAKE 1 TABLET BY MOUTH IN THE MORNING ON AN EMPTY STOMACHDisp: 270 tabletRfl: 0 warfarin (COUMADIN) 3 mg tablettake 1 tablet by mouth daily as directedDisp: 90 tabletRfl: 3 (Patient taking differently: Take 3 mg by mouth once daily. Except Tuesday she takes 2 MG) polyethylene glycol 3350 (MIRALAX, GLYCOLAX) 17 gram packetTake 17 g by mouth once daily. Dissolve dose in 4 - 8 ounces of liquid and take as directed.Disp: Rfl: Cholecalciferol, Vitamin D3, 50 mcg (2,000 unit) capTake by mouth once daily.Disp: Rfl: oxybutynin XL (DITROPAN XL) 5 mg 24 hr tabletTake 1 tablet by mouth once daily.Disp: 90 tabletRfl: 3 warfarin (COUMADIN) 2 mg tabletTake 1 tablet by mouth daily as directed.Disp: 90 tabletRfl: 1 (Patient taking differently: Take 2 mg by mouth every Tuesday.) warfarin (COUMADIN) 4 mg tabletTake 1 tablet by mouth once daily.Disp: 90 tabletRfl: 3 (Patient not taking: Reported on 08/09/2024) hyoscyamine sublingual (LEVSIN SL) 0.125 mgTAKE 1 TABLET UNDER THE TONGUE EVERY 6 HOURS NEEDEDDisp: Rfl: Current Facility-Administered Medications Medication Dose Route Frequency carvedilol 25 mg tab(s) (COREG) 25 mg ORAL BID losartan 100 mg tab(s) (COZAAR) 100 mg ORAL DAILY pantoprazole DR 40 mg tab(s) (PROTONIX) 40 mg ORAL DAILY polyethylene glycol 3350 17 g packet 17 g ORAL DAILY levothyroxine 75 mcg tab(s) (SYNTHROID) 75 mcg ORAL DAILY (6 AM) NaCl 0.9% iv flush bag 20 mL INTRAVENOUS PRN ondansetron orally disintegrating 4 mg tab(s) (ZOFRAN ODT) 4 mg ORAL q 6 H PRN Or ondansetron (PF) 4 mg injection (ZOFRAN) 4 mg INTRAVENOUS q 6 H PRN magnesium oxide 400 mg tab(s) (MAG-OX) 400 mg ORAL DAILY acetaminophen 1,000 mg tab(s) (TYLENOL) 1,000 mg ORAL q 8 H oxyCODONE IR 5 mg tab(s) (ROXICODONE) 5 mg ORAL q 3 H PRN oxyCODONE IR 10 mg tab(s) (ROXICODONE) 10 mg ORAL q 3 H PRN ALLERGIES: Amlodipine, Penicillins, Sulfa (Sulfonamide Antibiotics), and Tetracyclines COMPLETE REVIEW OF SYSTEMS: General: No weight loss, malaise or fevers. HEENT: Negative for frequent or significant headaches., No changes in hearing or vision, no nose bleeds or other nasal problems. Respiratory: Negative for cough, wheezing or shortness of breath. Cardiovascular: Negative for chest pain, leg swelling or palpitations. GI: Negative for abdominal discomfort, blood in stools or black stools and change in bowel habits : No history of dysuria, frequency and incontinence Musculoskeletal:Negativ e for joint pain or swelling, back pain, and muscle pain. Skin: Negative for lesions, rash, and itching. Extremities:Negative for swelling. Psych: Negative for sleep disturbance, mood disorder and recent psychosocial stressors. Endocrine: Negative for cold or heat intolerance, polyuria, polydipsia and goiter. Neurology: No history of headaches,syncope,paral ysis,seizures,tremors Objective PHYSICAL EXAM: V (more content not included)... Normal [facility] Magnesium SerPl-mCncon 08-12 Magnesium [Mass/Vol] 1.7 mg/dL Normal 1.7-2.3 [facility] Comment on above: Order Comment: Speci men Type: BLOOD SPECIMEN [facility] Address: [address] [place] [address] Performed By: #### 5 8410-2 #### [facility] CLIA [id number] [address] [place] [address] [facility] [place] THERAPY NTon 08-12-2024 THERAPY NT HNO ID: [id number] Author: MENDEL JUAREZ PT Service: Physical Therapy Author Type: Physical Therapist Type: Therapy (PT/OT/Speech/Resp) Filed: 08/12/2024 11:08 Note Text: Summary: PT Treatment Physical Therapy Treatment Summary SERVICE DATE: 08/12/2024 SERVICE TIME: 1044 to 1053 ROOM: [place] [address] PT 6 Clicks Score: 14 DISCHARGE RECOMMENDATIONS Subacute/SNF Recommended Discharge Disposition Comments: Patient demonstrating increased difficulty with mobility this date, recommendation switched to SNF due to inability to ambulate. Patient requires significant assist and requires daily skilled services post acute stay to address balance, strength, ROM, and activity tolerance deficits. Recommended Discharge Disposition Due to: Functional deficits requiring ongoing therapy service prior to discharge home., Balance deficits, Requires multiple therapy disciplines, Functional status decline Recommended Discharge Equipment: Wheeled Walker ASSESSMENT Response to Therapy Interventions: Low Activity Tolerance, Pain, Requires Additional Time to Complete Activities Patient demonstrates significant decreased in mobility this date, requires Meche-ModA for standing and attempt at gait training. Patient with difficulty WB on LLE severely limiting progression this date. Discussed home-going needs with education provided to patient and grandson re: SNF recommendation this date due to significant debility/difficulty. Patient and grandson verbalize understanding. PRECAUTIONS Fall Risk, Weight Bearing Restrictions Left Lower Extremity Weight Bearing Status: WBAT CURRENT HOSPITAL COURSE fall at home: MRI: IMPRESSION: Complete tear of the LEFT proximal conjoint hamstring tendon with extensive intramuscular and perifascial edema/hemorrhage throughout the posterior compartment of the LEFT thigh. 5.5 cm organized hematoma in the proximal semitendinosus muscle with areas of internal nodular enhancement. Relevant Past Medical History: HTN, HFpEF, AFIB (on Coumadin), hx TIA, and [facility] Patient Lives With: Spouse, Family (grandson who works from home) Assistance Available: 24-Hour Entry To Home: Stairs, With Rail Number Of Stairs Into Home: 5 Number Of Stairs To Bed/Bath: (1 story home, but has a sunkin living room with 2 steps (grandsara is going to put a grab bar there, this is where she fell)) Tub/Shower Type: walk in shower Laundry: first floor patient completes Equipment Owned: Cane, Grab Bars- Shower, Organ Fixer, Long Handled Sponge PRIOR FUNCTIONAL LEVEL Within Functional Limits Independnet with ADLS IADLS. No device. + driving SUBJECTIVE Patient reports, My grandson IS able to provide 24/7 supervision at home. However, I will tell you, I needed a lot more help yesterday because of how much it hurts. Agreeable to PT, cleared with RN THERAPY DIAGNOSIS Reduced mobility-other, Unsteadiness on feet, Difficulty walking-musculoskeletal , Muscle Weakness (generalized) TREATMENT INTERVENTIONS Therapeutic Activity (22555) Timed Code Treatment (minutes): 9 Skilled Treatment Time (minutes): 9 TRAINING AND EDUCATION PROVIDED Anatomy and Impact on Deficits, Assistive Device Use, Bed Mobility, Benefits of In-Hospital Mobility, Curb Step Navigation, Discharge Planning, Equipment, Expected Functional Level, Gait Pattern, Reduction of Deviations, Falls Prevention, Handout Issued, Modalities, Positioning, Pre-gait Activities, Precautions/Restriction s, Role of Physical Therapy, Stair Navigation, Standing Balance, Transfers, Treatment Protocol THERAPEUTIC SKILLS USED Activity Dosing, Cues for Sequencing/Proper Technique for Activity, Cuing Verbal, Cuing Visual, Muscle Activation Facilitation, Postural Alignment Correction, Physical Assist FUNCTIONAL STATUS Bed Mobility Supine To Sit: Supervision Sit to Supine: Supervision Scooting: Supervision Transfers Sit To Stand: Additional Information, Minimal Assistance from lowest bed height with cues for UE support from surface with safe transition to FWW Stand To Sit: Stand By Assistance Bed to Chair Additional Information Bed To Chair Transfer Type: Stepping Bed To Chair Transfer Equipment: Gait Belt (one hand assist) Unable to progress this date Gait Additional Information, Moderate Assistance Attempted however unable to progress. Patient attempted TTWB 1 step fwd and reports significant pain and inability to WB. Reports decreased mobility compared to initial evaluation secondary to increased pain with attempt. Declines further activity secondary to pain. RN AND MD alerted Gait Device: Wheeled Walker, Other: See Comment (gait belt) Gait Distance (feet): 1 step fwd/ 1 step retro Stairs Curb Step: Additional Information GOALS Patient will d (more content not included)... Normal [facility] Basic metabolic 2000 panelon 08-11-2024 Anion gap [Moles/Vol] 9 mmol/L Normal 8-15 [facility] Comment on above: Order Comment: Speci men Type: BLOOD SPECIMENOrdering Facility: [facility] Address: [address] [place] [address] Performed By: #### 2 4321-2, ####[facility] LABORATORYCLIA [id number] [place] [address] [place] Calcium [Mass/Vol] 9.4 mg/dL Normal 8.5-10.2 [facility] Comment on above: Order Comment: Speci men Type: BLOOD SPECIMENOrdering Facility: [facility] Address: [address] [place] [address] Performed By: #### 2 4320-2, ####[facility] LABORATORYCLIA [id number] [place] [address] [place] Chloride [Moles/Vol] 90 mmol/L Low 98-107 [facility] Comment on above: Order Comment: Speci men Type: BLOOD SPECIMENOrdering Facility: [facility] Address: [address] [place] [address] Performed By: #### 2 4321-2, ####[facility] LABORATORYCLIA [id number] [place] [id number] [place] CO2 [Moles/Vol] 28 mmol/L Normal 22-30 [facility] Comment on above: Order Comment: Speci men Type: BLOOD SPECIMENOrdering Facility: [facility] Address: [address] [place] [address] Performed By: #### 2 432-2, ####[facility] LABORATORYCLIA [id number] [place] [address] [place] Creatinine [Mass/Vol] 0.81 mg/dL Normal 0.58-0.96 [facility] Comment on above: Order Comment: Speci men Type: BLOOD SPECIMENOrdering Facility: [facility] Address: [address] [place] [address] Performed By: #### 2 4321-2, ####[facility] LABORATORYCLIA [id number] [address] STATES [facility] Creatinine and Glomerular filtration rate.predicted panel (S/P/Bld) 70 mL/min/1.73m??? Normal >=60 [facility] Comment on above: Order Comment: Marti hankins Type: BLOOD SPECIMENOrdering Facility: [facility] Address: [address] [place] [address] Result Comment: Dolores mated Glomerular Filtration Rate (eGFR) is calculated using the 2020 CKD-EPI creatinine equation. This equation utilizes serum creatinine, sex, and age as parameters. The creatinine assay has traceable calibration to isotope dilution-mass spectrometry. Refer to KDIGO guidelines for clinical interpretation. In patients with unstable renal function, e.g. those with acute kidney injury, the eGFR may not accurately reflect actual GFR. Performed By: #### 2 432-, ####[facility] LABORATORYCLIA [id number] [place] [address] [place] Glucose [Mass/Vol] 110 mg/dL High 74-99 [facility] Comment on above: Order Comment: Marti hankins Type: BLOOD SPECIMENOrdering Facility: [facility] Address: [address] [place] [address] Result Comment: The [place] Diabetes Association (ADA) provides guidance for cutoff values for fasting glucose and random glucose. The ADA defines fasting as no caloric intake for at least 8 hours. Fasting plasma glucose results between 100 to 125 mg/dL indicate increased risk for diabetes (prediabetes). Fasting plasma glucose results greater than or equal to 126 mg/dL meet the criteria for diagnosis of diabetes. In the absence of unequivocal hyperglycemia, results should be confirmed by repeat testing. In a patient with classic symptoms of hyperglycemia or hyperglycemic crisis, random plasma glucose results greater than or equal to 200 mg/dL meet the criteria for diagnosis of diabetes. Reference: Standards of Medical Care in Diabetes 2016, [place] [employer] Association. Diabetes Care. 2016.39(Suppl 1). Performed By: #### 2 4321-2, ####[facility] LABORATORYCLIA [id number] [address] STATES OF [facility] Potassium [Moles/Vol] 4.6 mmol/L Normal 3.7-5.1 [facility] Comment on above: Order Comment: Speci men Type: BLOOD SPECIMENOrdering Facility: [facility] Address: [address] [place] [address] Performed By: #### 2 4321-2, ####[facility] LABORATORYCLIA [id number] [address] STATES OF [facility] Sodium [Moles/Vol] 127 mmol/L Low 136-144 [facility] Comment on above: Order Comment: Speci men Type: BLOOD SPECIMENOrdering Facility: [facility] Address: [address] [place] [address] Performed By: #### 2 4321-2, ####[facility] LABORATORYCLIA [id number] [address] STATES [facility] Urea nitrogen [Mass/Vol] 13 mg/dL Normal 7-21 [facility] Comment on above: Order Comment: Speci men Type: BLOOD SPECIMENOrdering Facility: [facility] Address: [address] [place] [address] Performed By: #### 2 4321-2, ####[facility] LABORATORYCLIA [id number] [address] OF [facility] CASE MANAGEMon 08-11-2024 CASE MANAGEM HNO ID: [id number] Author: NADJA MCFADDEN LSW Service: ASSESSMENT Author Type: [place]in[place] Operator Type: Care Mgt Progress Note Filed: 08/11/2024 12:38 Note Text: CARE MANAGEMENT PROGRESS NOTE SERVICE DATE: 08/11/2024 SERVICE TIME: 12:37 PM LOS: 2 days Needs Prior to Discharge: To Be Determined;OT/PT Evaluation Per Dr. Sommers pt. Has no assistance at home. Luis is employed and unable to provide supervision. Dr. Beck would like for PT/OT to re-evaluate pt. In an effort to begin process of SNF placement. Msg. Put in PAF for PT/OT. Will continue to follow. SIGNATURE: Nadja Mcfadden MANAGER UNION, SPECIAL EVENTS COORDINATOR PATIENT NAME: Helen Lieberman DATE: August 11, 2024 TIME: 12:37 PM PAGER/CONTACT #: Normal [facility] CBC panel Auto (Bld)on 08-11 Erythrocyte distribution width (RBC) [Ratio] 12.4 % Normal 11.5-15.0 [facility] Comment on above: Order Comment: Speci men Type: BLOOD SPECIMENOrdering Facility: [facility] Address: [address] [place] [address] Performed By: #### 5 8410-2 ####[facility] LABORATORYCLIA [id number] [address] Hematocrit (Bld) [Volume fraction] 33.5 % Low 36.0-46.0 [facility] Comment on above: Order Comment: Speci men Type: BLOOD SPECIMENOrdering Facility: [facility] Address: [address] [place] [address] Performed By: #### 5 8410-2 ####[facility] LABORATORYCLIA [id number] [address] [place] Hemoglobin (Bld) [Mass/Vol] 11.4 g/dL Low 11.5-15.5 [facility] Comment on above: Order Comment: Speci men Type: BLOOD SPECIMENOrdering Facility: [facility] Address: [address] [place] [address] Performed By: #### 5 8410-2 ####[facility] LABORATORYCLIA [id number] [address] [place] MCH (RBC) [Entitic mass] 32.8 pg Normal 26.0-34.0 [facility] Comment on above: Order Comment: Speci men Type: BLOOD SPECIMENOrdering Facility: [facility] Address: [address] [place] [address] Performed By: #### 5 8410-2 ####[facility] LABORATORYCLIA [id number] [address] [place] MCHC (RBC) [Mass/Vol] 34.0 g/dL Normal 30.5-36.0 [facility] Comment on above: Order Comment: Speci men Type: BLOOD SPECIMENOrdering Facility: [facility] Address: [address] [place] [address] Performed By: #### 5 8410-2 ####[facility] LABORATORYCLIA [id number] [address] [place] MCV (RBC) [Entitic vol] 96.3 fL Normal 80.0-100.0 M [facility] Comment on above: Order Comment: Speci men Type: BLOOD SPECIMENOrdering Facility: [facility] Address: [address] [place] [address] Performed By: #### 5 8410-2 ####[facility] LABORATORYCLIA [id number] [address] Nucleated RBC (Bld) [#/Vol] 10*3/uL Normal <0.01 [facility] Comment on above: Order Comment: Speci men Type: BLOOD SPECIMENOrdering Facility: [facility] Address: [address] [place] [address] Performed By: #### 5 8410-2 ####[facility] LABORATORYCLIA [id number] [address] [place] Platelet mean volume (Bld) [Entitic vol] 9.4 fL Normal 9.0-12.7 [facility] Comment on above: Order Comment: Speci men Type: BLOOD SPECIMENOrdering Facility: [facility] Address: [address] [place] [address] Performed By: #### 5 8410-2 ####[facility] LABORATORYCLIA [id number] [address] Platelets (Bld) [#/Vol] 280 10*3/uL Normal 150-400 [facility] Comment on above: Order Comment: Speci men Type: BLOOD SPECIMENOrdering Facility: [facility] Address: [address] [place] [address] Performed By: #### 5 8410-2 ####[facility] LABORATORYCLIA [id number] [place] [address] [place] RBC (Bld) [#/Vol] 3.48 10*6/uL Low 3.90-5.20 [facility] Comment on above: Order Comment: Speci men Type: BLOOD SPECIMENOrdering Facility: [facility] Address: [address] [place] [address] Performed By: #### 5 8410-2 ####[facility] LABORATORYCLIA [id number] [place] [address] [place] [facility] WBC (Bld) [#/Vol] 7.91 10*3/uL Normal 3.70-11.00 [facility] Comment on above: Order Comment: Speci men Type: BLOOD SPECIMENOrdering Facility: [facility] Address: [address] [place] [address] Performed By: #### 5 8410-2 ####[facility] LABORATORYCLIA [id number] [address] [place] Magnesium SerPl-mCncon 08-11 Magnesium [Mass/Vol] 1.8 mg/dL Normal 1.7-2.3 [facility] Comment on above: Order Comment: Speci men Type: BLOOD SPECIMENOrdering Facility: [facility] Address: [address] [place] [address] Performed By: #### 2 4321-2, 83521-1 ####[facility] LABORATORYCLIA [id number] [address] [place] Osmolality Uron 08-11-2024 Osmolality (U) [Osmolality] 408 mosm/kg Normal 50-1200 [facility] Comment on above: Order Comment: Speci men Type: BLOOD SPECIMEN [facility] Address: [address] [place] [address] Performed By: #### 5 8410-2 #### [facility] CLIA [id number] [address] [place] [address] [place] Sodium ?Tm Ur-sCncon 024 Sodium Unsp time (U) [Moles/Vol] 84 mmol/L Normal 14-216 [facility] Comment on above: Order Comment: Speci men Type: BLOOD SPECIMEN [facility] Address: [address] [place], [place] [address] Performed By: #### 5 8410-2 #### [facility] CLIA [id number] [address] [place] ALLIED HEALTHon 08-10-2024 ALLIED HEALTH HNO ID: [id number] Author: TONI GARAY CT Service: Radiology Author Type: Digital Project Manager Type: Allied Health Filed: 08/10/2024 09:19 Note Text: Radiology Service Progress Note PATIENT NAME: Helen Lieberman DATE OF SERVICE: August 10, 2024 TIME: 9:19 AM PATIENT IDENTITY VERIFICATION COMPLETED USING TWO (2) IDENTIFIERS: Name and Date of confirmed by patient verbally. FALL SCREENING: Has the patient had 2 falls in the last year or 1 fall with injury or currently using an Ambulatory Assistive Device (Walker, Cane, Wheelchair, Crutches, etc.)? Inpatient: Screened on floor PATIENT GENDER DATA: Female. status: : No status: NO. PATIENT RELEVANT IMPLANT DATA REVIEWED: Yes PATIENT PRESENTS WITH AN IMPLANTABLE OR ATTACHED LAB SCIENTIST: No RADIOLOGY DEPARTMENT: MR; Exam(s) Completed: Lower MSK: Femur, left PERIPHERAL IV DATA: Site assessment: Clean,Dry and Intact, Site disposition Left in for next appointment SIGNED BY: KIRK Choudhury August 10, 2024 9:19 AM Normal [facility] Basic metabolic 2000 panelon 08-10-2024 Anion gap [Moles/Vol] 8 mmol/L Normal 8-15 [facility] Comment on above: Order Comment: Marti hankins Type: BLOOD SPECIMEN [facility] Address: [address] [place], [place] [address] Performed By: #### 5 8410-2 #### [facility] CLIA [id number] [address] [place] Calcium [Mass/Vol] 9.0 mg/dL Normal 8.5-10.2 [facility] Comment on above: Order Comment: Marti hankins Type: BLOOD SPECIMEN [facility] Address: [address] [place], [place] [address] Performed By: #### 5 8410-2 #### [facility] CLIA [id number] [address] Chloride [Moles/Vol] 97 mmol/L Low 98-107 [facility] Comment on above: Order Comment: Marti hankins Type: BLOOD SPECIMEN [facility] Address: [address] [place] [address] Performed By: #### 5 8410-2 #### [facility] CLIA [id number] [address] CO2 [Moles/Vol] 26 mmol/L Normal 22-30 [facility] Comment on above: Order Comment: Marti hankins Type: BLOOD SPECIMEN [facility] Address: [address] [place] [address] Performed By: #### 5 8410-2 #### [facility] CLIA [id number] [address] Creatinine [Mass/Vol] 0.75 mg/dL Normal 0.58-0.96 [facility] Comment on above: Order Comment: Marti hankins Type: BLOOD SPECIMEN [facility] Address: [address] [place] [address] Performed By: #### 5 8410-2 #### [facility] CLIA [id number] [address] Creatinine and Glomerular filtration rate.predicted panel (S/P/Bld) 77 mL/min/1.73m??? Normal >=60 [facility] Comment on above: Order Comment: Marti hankins Type: BLOOD SPECIMEN [facility] Address: [address] [place] [address] Result Comment: Dolores mated Glomerular Filtration Rate (eGFR) is calculated using the 2020 CKD-EPI creatinine equation. This equation utilizes serum creatinine, sex, and age as parameters. The creatinine assay has traceable calibration to isotope dilution-mass spectrometry. Refer to KDIGO guidelines for clinical interpretation. In patients with unstable renal function, e.g. those with acute kidney injury, the eGFR may not accurately reflect actual GFR. Performed By: #### 5 8410-2 #### [facility] CLIA [id number] [address] [place] [address] [place] Glucose [Mass/Vol] 114 mg/dL High 74-99 [facility] Comment on above: Order Comment: Marti hankins Type: BLOOD SPECIMEN [facility] Address: [address] [place] [address] Result Comment: The [place] Diabetes Association (ADA) provides guidance for cutoff values for fasting glucose and random glucose. The ADA defines fasting as no caloric intake for at least 8 hours. Fasting plasma glucose results between 100 to 125 mg/dL indicate increased risk for diabetes (prediabetes). Fasting plasma glucose results greater than or equal to 126 mg/dL meet the criteria for diagnosis of diabetes. In the absence of unequivocal hyperglycemia, results should be confirmed by repeat testing. In a patient with classic symptoms of hyperglycemia or hyperglycemic crisis, random plasma glucose results greater than or equal to 200 mg/dL meet the criteria for diagnosis of diabetes. Reference: Standards of Medical Care in Diabetes 2016, [place] [employer]. Diabetes Care. 2016.39(Suppl 1). Performed By: #### 5 8410-2 #### [facility] CLIA [id number] [address] [place] [address] [place] Potassium [Moles/Vol] 4.4 mmol/L Normal 3.7-5.1 [facility] Comment on above: Order Comment: Marti hankins Type: BLOOD SPECIMEN [facility] Address: [address] [place] [address] Performed By: #### 5 8410-2 #### [facility] CLIA [id number] [address] [place] [address] [place] Sodium [Moles/Vol] 131 mmol/L Low 136-144 [facility] Comment on above: Order Comment: Marti hankins Type: BLOOD SPECIMEN [facility] Address: [address] [place] [address] Performed By: #### 5 8410-2 #### [facility] CLIA [id number] [address] [place] [address] [place] Urea nitrogen [Mass/Vol] 12 mg/dL Normal 7-21 [facility] Comment on above: Order Comment: Marti hankins Type: BLOOD SPECIMEN [facility] Address: [address] [place] [address] Performed By: #### 5 8410-2 #### [facility] CLIA [id number] [address] CBC panel Auto (Bld)on 08-10 Erythrocyte distribution width (RBC) [Ratio] 12.3 % Normal 11.5-15.0 [facility] Comment on above: Order Comment: Speci men Type: BLOOD SPECIMEN [facility] Address: [address] [place] [address] Performed By: #### 5 8410-2 #### [facility] CLIA [id number] [address] Hematocrit (Bld) [Volume fraction] 34.4 % Low 36.0-46.0 [facility] Comment on above: Order Comment: Speci men Type: BLOOD SPECIMEN [facility] Address: [address] [place] [address] Performed By: #### 5 8410-2 #### [facility] CLIA [id number] [address] Hemoglobin (Bld) [Mass/Vol] 11.6 g/dL Normal 11.5-15.5 [facility] Comment on above: Order Comment: Speci men Type: BLOOD SPECIMEN [facility] Address: [address] [place] [address] Performed By: #### 5 8410-2 #### [facility] CLIA [id number] [address] MCH (RBC) [Entitic mass] 32.6 pg Normal 26.0-34.0 [facility] Comment on above: Order Comment: Speci men Type: BLOOD SPECIMEN [facility] Address: [facility] [place] [address] Performed By: #### 5 8410-2 #### [facility] CLIA [id number] [address] MCHC (RBC) [Mass/Vol] 33.7 g/dL Normal 30.5-36.0 [facility] Comment on above: Order Comment: Speci men Type: BLOOD SPECIMEN [facility] Address: [address] [place] [address] Performed By: #### 5 8410-2 #### [facility] CLIA [id number] [address] MCV (RBC) [Entitic vol] 96.6 fL Normal 80.0-100.0 M [facility] Comment on above: Order Comment: Speci men Type: BLOOD SPECIMEN [facility] Address: [address] [place] [address] Performed By: #### 5 8410-2 #### [facility] CLIA [id number] [address] Nucleated RBC (Bld) [#/Vol] 10*3/uL Normal <0.01 [facility] Comment on above: Order Comment: Speci men Type: BLOOD SPECIMEN [facility] Address: [address] [place] [address] Performed By: #### 5 8410-2 #### [facility] CLIA [id number] [address] [place] Platelet mean volume (Bld) [Entitic vol] 9.1 fL Normal 9.0-12.7 [facility] Comment on above: Order Comment: Speci men Type: BLOOD SPECIMEN [facility] Address: [address] [place] [address] Performed By: #### 5 8410-2 #### [facility] CLIA [id number] [address] Platelets (Bld) [#/Vol] 277 10*3/uL Normal 150-400 [facility] Comment on above: Order Comment: Speci men Type: BLOOD SPECIMEN [facility] Address: [address] [place] [address] Performed By: #### 5 8410-2 #### [facility] CLIA [id number] [address] [place] RBC (Bld) [#/Vol] 3.56 10*6/uL Low 3.90-5.20 [facility] Comment on above: Order Comment: Marti hankins Type: BLOOD SPECIMEN [facility] Address: [address] [facility] [place] [id number] Performed By: #### 5 8410-2 #### [facility] CLIA [id number] [address] WBC (Bld) [#/Vol] 7.71 10*3/uL Normal 3.70-11.00 [facility] Comment on above: Order Comment: Speci men Type: BLOOD SPECIMEN [facility] Address: [address] [place] [place] [id number] Performed By: #### 5 8410-2 #### [facility] CLIA [id number] [address] Jeremy 08-10-2024 RUBION Telephone (HCSIND) HELEN LIEBERMAN ([id number]) 1935 F Date Time Provider Department 08/10/24 TANYA LOZANO During your visit today, we recorded the following information about you: Monika Curry LPN 08/10/2024 4:20 PM Signed Tanya Lozano APRN.[employer] Please advise if you are agreeable to signing and following for [facility] services? Our Clinicians will be sending the Plan of Care to you for review and approval. They will reach out for any appropriate orders required to provide home care services for the patient. We are not able to initiate [facility] services without a following provider. Home care clinicians may also obtain orders from [facility] Virtualist Providers Thank you and we would be happy to answer any questions. Monika Curry LPN 08/10/2024 4:20 PM Allergies As of Date: 08/10/2024 Noted Allergy Reaction PENICILLINS 07/24/2021 16 - Unknown SULFA (SULFONAMIDE ANTIBIOTICS) 07/24/2021 16 - Unknown TETRACYCLINES 07/24/2021 16 - Unknown Date Reviewed: 08/10/2024 Reviewed by: Mónica Salazar RN - Fully Assessed Reason for Visit: Home Care [4073] Cmt: to follow Prescriptions as of 08/10/2024 - carvedilol (COREG) 12.5 mg tablet Take 2 tablets by mouth two times a day. TAKE WITH FOOD. - oxybutynin XL (DITROPAN XL) 5 mg 24 hr tablet Take 1 tablet by mouth once daily. - pantoprazole DR (PROTONIX) 40 mg tablet Take 1 tablet by mouth once daily. - losartan (COZAAR) 100 mg tablet Take 1 tablet by mouth once daily. - levothyroxine (SYNTHROID) 75 mcg tablet TAKE 1 TABLET BY MOUTH IN THE MORNING ON AN EMPTY STOMACH - warfarin (COUMADIN) 3 mg tablet take 1 tablet by mouth daily as directed - warfarin (COUMADIN) 2 mg tablet Take 1 tablet by mouth daily as directed. - warfarin (COUMADIN) 4 mg tablet Take 1 tablet by mouth once daily. - hyoscyamine sublingual (LEVSIN SL) 0.125 mg TAKE 1 TABLET UNDER THE TONGUE EVERY 6 HOURS NEEDED - polyethylene glycol 3350 (MIRALAX, GLYCOLAX) 17 gram packet Take 17 g by mouth once daily. Dissolve dose in 4 - 8 ounces of liquid and take as directed. - Cholecalciferol, Vitamin D3, 50 mcg (2,000 unit) cap Take by mouth once daily. Facility-Administered Medications as of 08/10/2024 - hydroCHLOROthiazide 12.5 mg tab(s) - carvedilol 25 mg tab(s) (COREG) - losartan 100 mg tab(s) (COZAAR) - pantoprazole DR 40 mg tab(s) (PROTONIX) - polyethylene glycol 3350 17 g packet - levothyroxine 75 mcg tab(s) (SYNTHROID) - NaCl 0.9% iv flush bag - ondansetron orally disintegrating 4 mg tab(s) (ZOFRAN ODT) - ondansetron (PF) 4 mg injection (ZOFRAN) - acetaminophen 650 mg tab(s) (TYLENOL) - iv contrast (radiology procedure) Problem List As Of Date 08/10/2024 Noted Resolved Essential hypertension, benign [I10] 03/20/2015 Hypothyroidism [E03.9] 03/20/2015 Atrial fibrillation (HCC) [I48.91] 07/29/2021 TIA (transient ischemic attack) [G45.9] 08/09/2021 GERD (gastroesophageal reflux disease) [K21.9] 08/09/2021 Vertigo [R42] 08/09/2021 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] 08/25/2021 Syncope [R55] 09/07/2023 09/08/2023 Syncope and collapse [R55] 09/07/2023 09/08/2023 Chronic diastolic CHF (congestive heart failure*09/08/2023 Hx-TIA (transient ischemic attack) [Z86.73] 08/09/2024 Hyponatremia [E87.1] 08/09/2024 Elevated troponin level [R79.89] 08/09/2024 Fall at home, sequela [W19.XXXS, Y92.009] 08/09/2024 Left hip pain [M25.552] 08/09/2024 Hematoma of left thigh [S70.12XA] 08/09/2024 Hamstring injury, left, initial encounter [S76.*08/10/2024 Encounter Status:Closed by MONIKA CURRY on 08/10/24 [facility] CONSULTon 08-10-2024 CONSULT HNO ID: [id number] Author: WANDY ALVAREZ MD Service: Orthopaedic Surgery Author Type: Physician Media Manager Type: Consults Filed: 08/10/2024 17:29 Note Text: Attestation signed by Wandy Alvarez MD at 08/10/2024 5:29 PM Chart and imaging reviewed I agree with above notation Recommend continue treatment symptomatically and advance to weightbearing as tolerated. I do not anticipate any the need for any surgical intervention. Patient can be followed in the office as an outpatient after her discharge from the hospital ORTHOPAEDIC SURGERY CONSULT NOTE SERVICE DATE: 08/10/2024 SERVICE TIME: 8:42 AM PRIMARY CARE PHYSICIAN: Tanya Lozano APRN.COLLEGE ATHLETE ASSESSMENT AND PLAN 88 year old female presenting with left hamstring injury No plans for acute orthopedic surgical intervention WBAT LLE PT/OT eval Pain control per primary team Admitted to medicine Discussed with Dr. Alvarez and patient. SUBJECTIVE CHIEF COMPLAINT: consult to orthopaedics regarding left hip pain s/p fall with left hamsting hematoma HPI: Helen Lieberman is a 88 year old female with history of atrial fibrillation anticoagulated on warfarin who had a mechanical fall at home yesterday and injured her left hip and posterior thigh. The patient states she struck the back of her upper left leg against the corner of her grandfather clock during the fall. She also suffered a skin tear to her left elbow and left fifth finger. She denies LOC or other injury. The patient reports pain and bruising over her posterior proximal left thigh. CT scan of the left hip completed yesterday revealed findings consistent with hematoma and strain of the hamstring musculature and possible tear of the left hamstring tendons. The patient states she lives at home with her grandson and ambulates without assistive devices at her baseline. The patient denies LLE numbness/tingling or other orthopedic complaints. PAST MEDICAL HISTORY: PAST MEDICAL HISTORY Diagnosis Date Atrial fibrillation (HCC) 07/29/2021 Essential hypertension Gallstone pancreatitis Pancreatitis PAST SURGICAL HISTORY: PAST SURGICAL HISTORY Procedure Laterality Date SECTION HX x4 FOOT SURGERY HX right side HERNIA REPAIR HX KNEE SURGERY HX Right REMOVAL GALLBLADDER FAMILY HISTORY: FAMILY HISTORY Problem Relation Age of Onset Stroke Mother other (tia) Sister Diabetes Sister Dementia Sister Lung Cancer Sister Stroke Sister Hypertension Sister Heart Brother SOCIAL HISTORY: Social History Tobacco Use Smoking status: Never Smokeless tobacco: Never Vaping Use Vaping status: Never Used Substance Use Topics Alcohol use: Yes Comment: Rarely Drug use: Never MEDICATIONS: Prior to Admission Medications carvedilol (COREG) 12.5 mg tablet, Take 2 tablets by mouth two times a day. TAKE WITH FOOD., Disp: 360 tablet, Rfl: [address] (PROTONIX) 40 mg tablet, Take 1 tablet by mouth once daily., Disp: 90 tablet, Rfl: 3, 08/09/2024 losartan (COZAAR) 100 mg tablet, Take 1 tablet by mouth once daily., Disp: 90 tablet, Rfl: 3, 08/09/2024 levothyroxine (SYNTHROID) 75 mcg tablet, TAKE 1 TABLET BY MOUTH IN THE MORNING ON AN EMPTY STOMACH, Disp: 270 tablet, Rfl: 0, 08/09/2024 warfarin (COUMADIN) 3 mg tablet, take 1 tablet by mouth daily as directed (Patient taking differently: Take 3 mg by mouth once daily. Except Tuesday she takes 2 MG), Disp: 90 tablet, Rfl: 3, 08/08/2024 polyethylene glycol 3350 (MIRALAX, GLYCOLAX) 17 gram packet, Take 17 g by mouth once daily. Dissolve dose in 4 - 8 ounces of liquid and take as directed., Disp: , Rfl: , 08/09/2024 Cholecalciferol, Vitamin D3, 50 mcg (2,000 unit) cap, Take by mouth once daily., Disp: , Rfl: , 08/09/2024 oxybutynin XL (DITROPAN XL) 5 mg 24 hr tablet, Take 1 tablet by mouth once daily., Disp: 90 tablet, Rfl: 3 warfarin (COUMADIN) 2 mg tablet, Take 1 tablet by mouth daily as directed. (Patient taking differently: Take 2 mg by mouth every Tuesday.), Disp: 90 tablet, Rfl: 1 warfarin (COUMADIN) 4 mg tablet, Take 1 tablet by mouth once daily. (Patient not taking: Reported on 08/09/2024), Disp: 90 tablet, Rfl: 3, Not Taking hyoscyamine sublingual (LEVSIN SL) 0.125 mg, TAKE 1 TABLET UNDER THE TONGUE EVERY 6 HOURS NEEDED, Disp: , Rfl: , Unknown CURRENT ALLERGIES: ALLERGIES Allergen Reactions Penicillins Unknown Sulfa (Sulfonamide * Unknown Tetracyclines Unknown COMPLETE REVIEW OF SYSTEMS: Only orthopedic reviewed OBJECTIVE PHYSICAL EXAM: Vitals: BP (!) 127/46 Pulse 62 Temp 36.8 ?C (98.2 ?F) (Oral) Resp 16 Ht 157.5 cm (5' 2) Wt 52.4 kg (115 lb 8.3 oz) SpO2 98% BMI 21.13 kg/m? GENERAL: Alert, no distress, cooperative LUNGS: Normal respiratory effort MSK: Left Lower E (more content not included)... Normal [facility] MRI UPPER LEG WO/W IVCON LTo n 08-10-2024 MRI UPPER LEG WO/W IVCON LT * * *Final Report* * * DATE OF EXAM: Aug 10 2024 10:37AM [facility] 0261 - MRI UPPER LEG WO/W IVCON LT / PROCEDURE REASON: Upper leg trauma, nondiagnostic xray * * * * Physician Interpretation * * * * EXAMINATION: MRI UPPER LEG WO/W IVCON LT PATIENT/TECHNOLOGIST PROVIDED HISTORY: UPPER LEG TRAUMA, HEMATOMA LEFT HAMSTRING CLINICAL HISTORY: 88 years old Female with Upper leg trauma, nondiagnostic xray. Mass Upper leg trauma, nondiagnostic xray, hematoma left hamstring COMPARISON: CT LEFT hip 08/09/2024 TECHNIQUE: Multiplanar MRI of the LEFT upper leg with multiple sequences with and without contrast. MR Contrast: Dotarem Contrast Dose: 10 cc Route of Administration: IV RESULT: Complete tear of the LEFT proximal conjoint hamstring tendon (semitendinosis and biceps femoris) at its origin from the ischial tuberosity with wavy appearance of the tendon. Extensive intramuscular and perifascial edema/hemorrhage in the posterior compartment of the LEFT thigh with perifascial edema extending into the adductor musculature. 4.0 x 3.0 x 5.5 cm organized hematoma proximal semitendinosis muscle which is T2 hyperintense, T1 slightly hyperintense compared to adjacent muscle with areas of internal nodular enhancement on postcontrast images. Marrow signal intensity is preserved without fracture or marrow replacing lesion. IMPRESSION: Complete tear of the LEFT proximal conjoint hamstring tendon with extensive intramuscular and perifascial edema/hemorrhage throughout the posterior compartment of the LEFT thigh. 5.5 cm organized hematoma in the proximal semitendinosus muscle with areas of internal nodular enhancement. Given the enhancement, a follow-up MRI in 3-6 months is recommended to ensure resolution of this finding. 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: ANSHU Transcribe Date/Time: Aug 10 2024 10:49A Dictated by : KASH MAR DO This examination was interpreted and the report reviewed and electronically signed by: KASH MAR DO on Aug 10 2024 11:37AM EST [id number] Normal [facility] Magnesium SerPl-mCncon 08-10 Magnesium [Mass/Vol] 1.8 mg/dL Normal 1.7-2.3 [facility] Comment on above: Order Comment: Marti hankins Type: BLOOD SPECIMEN Ordering Facility: [facility] Address: [address] [place] [address] Performed By: #### 5 8410-2 #### [facility] CLIA [id number] [address] [place] [address] [place] Osmolality SerPlon Osmolality [Osmolality] 276 mosm/kg Normal 275-300 [facility] Comment on above: Order Comment: Marti hankins Type: BLOOD SPECIMEN Ordering Facility: [facility] Address: [address] [place] [address] Performed By: #### 5 8410-2 #### [facility] CLIA [id number] [address] [place] [address] [place] PT panel Coag (PPP)on 2023 INR Coag (PPP) [Relative time] 2.0 {INR} High 0.9-1.3 [facility] Comment on above: Order Comment: Marti hankins Type: BLOOD SPECIMENOrdering Facility: [facility] Address: [address] [place] [address] Result Comment: Mirna min K Antagonist (VKA) Therapeutic Range: INR 2 to 3 (Target INR of 2.5) Note: For patients treated with VKA drugs, such as warfarin, the [place] [employer] 2012 Guideline recommends a therapeutic INR range of 2 to 3 (target INR of 2.5). This recommendation includes high-risk patients with antiphospholipid syndrome with previous arterial or venous thromboembolism, current-generation mechanical or bioprosthetic aortic heart valve replacement. Note: Patients with mechanical aortic valve replacement and additional risk factors for thromboembolic events (atrial fibrillation, previous thromboembolism, LV dysfunction, hypercoagulable conditions) or an older generation mechanical AVR (i.e., ball in-Cage) or any mechanical MVR should have a INR therapeutic range of 2.5 to 3.5 (target INR of 3). Kvng GH, et al. Chest 2012, 141:7S-47S Jayce RA, et al. [facility] 2017, 70: 252-289 Performed By: #### 3 4528-0, 23551-6 ####[facility] [id number] [place] [id number] [facility] PT Coag (PPP) [Time] 19.9 s High 9.7-13.0 [facility] Comment on above: Order Comment: Speci men Type: BLOOD SPECIMENOrdering Facility: [facility] Address: [address] [place] [address] [place] [address] Performed By: #### 3 4528-0, 46030-9 ####[facility] [id number] [place] [id number] [facility] THERAPY NTon 08-10-2024 THERAPY NT HNO ID: [id number] Author: WANDY CARSON, OT/L Service: Occupational Therapy Author Type: Occupational Therapist Type: Therapy (PT/OT/Speech/Resp) Filed: 08/10/2024 15:55 Note Text: Occupational Therapy Evaluation Summary SERVICE DATE: 08/10/2024 SERVICE TIME: 1522 to 1548 ROOM: [place] [address] OT 6 Clicks Score: 21 DISCHARGE RECOMMENDATIONS Home Anticipated Discharge Needs: Physical Assist at Home Physical Assist at Home for: Cleaning, Laundry, Shopping, Transportation, Self Care, Safety, Meals Supervision at Home due to: Decreased safety awareness ASSESSMENT Response to Therapy Interventions: Improved Tolerance for Activity, Good Participation in Activities, On-Track to Achieve Discharge Goals Pt presents with decreased ability to perform daily tasks d/t general weakness, decreased activity tolerance. Pt requires SBA-CGA to perform daily tasks. Pt will benefit from continued skilled OT services to increase ability to perform daily tasks. PRECAUTIONS Fall Risk, Weight Bearing Restrictions Left Lower Extremity Weight Bearing Status: WBAT CURRENT HOSPITAL COURSE fall at home: MRI: IMPRESSION: Complete tear of the LEFT proximal conjoint hamstring tendon with extensive intramuscular and perifascial edema/hemorrhage throughout the posterior compartment of the LEFT thigh. 5.5 cm organized hematoma in the proximal semitendinosus muscle with areas of internal nodular enhancement. Relevant Past Medical History: HTN, HFpEF, AFIB (on Coumadin), hx TIA, and [facility] Patient Lives With: Spouse, Family (grandson who works from home) Assistance Available: 24-Hour Entry To Home: Stairs, With Rail Number Of Stairs Into Home: 5 Number Of Stairs To Bed/Bath: (1 story home, but has a sunkin living room with 2 steps (luis is going to put a grab bar there, this is where she fell)) Tub/Shower Type: walk in shower Laundry: first floor patient completes Equipment Owned: Cane, Grab Bars- Shower, Organ Fixer, Long Handled Sponge PRIOR FUNCTIONAL LEVEL Within Functional Limits Independnet with ADLS IADLS. No device. + driving Baseline Cognition: Oriented to self, Oriented to place, Oriented to time SUBJECTIVE agreed to OT COGNITION Responsiveness: Alert, Awake Follows Commands: 3-step Commands 4AT Score: 0 (08/10/24) Delirium Positive/Negative: Negative (08/10/24) THERAPY DIAGNOSIS Decreased activities of daily living (ADL) TREATMENT INTERVENTIONS Evaluation, Self Jail Management (60982) Timed Code Treatment (minutes): 11 Skilled Treatment Time (minutes): 26 TRAINING AND EDUCATION PROVIDED Activity Adaptation/Compensatory Strategies, Bed Mobility, Benefits of In-Hospital Mobility, Transfer - Sit to Stand, Role of Occupational Therapy, Safety/Judgment, Precautions/Restriction s, Positioning, Meaningful Hobby/Leisure Participation, Lower Extremity Dressing, Lower Extremity Bathing, Life Roles/Routines/Habits, Functional Mobility Involving ADLs, Fine Motor Coordination, Expected Functional Level, Energy Conservation, Discharge Planning THERAPEUTIC SKILLS USED Activity Dosing, Assessment of Tolerance Including Vitals Response to Activity, Cuing Tactile, Cuing Verbal, Cuing Visual, Cues for Sequencing/Proper Technique for Activity, Therapeutic Use of Self, Teach-Back for Education, Physical Assist, Muscle Activation Facilitation, Movement Facilitation FUNCTIONAL STATUS Activities of Daily Living Assist Level Additional Information Feeding Independent Grooming Stand By Assistance Bathing Upper Body Stand By Assistance Bathing Lower Body Contact Guard Assistance Dressing Upper Body Stand By Assistance Dressing Lower Body Contact Guard Assistance Toileting Contact Guard Assistance Mobility Assist Level Additional Information Bed Mobility Rolling: Stand By Assistance Supine To Sit: Stand By Assistance Sit To Supine: Stand By Assistance Sit to Stand (declined d/t pain) Stand to Sit Bed to Chair Toilet/Commode Shower Functional Mobility GOALS Patient will demonstrate understanding of importance of mobility during hospital stay and resolve all self-care, cognitive and/or coping needs identified. Progress Toward Goals: Progressing as expected Rehab Potential: Good PLAN OT Frequency: 2 Times Per Week Treatment Interventions: Education, Self Care/Home Management, Energy Conservation Training, Strengthening, Functional Mobility Training, Balance Training, Neuromuscular Re-education, Cognitive Training Plan for Next Visit: Bed Mobility, Bathing Training, Dressing Training, Energy Conservation, Fall Prevention, Positioning Training, Standing Balance, Standing Tolerance, Sit to Stand Transfers, Stress/Anxiety Management SIGNATURE: Wandy Carson OT/L PATIENT NAME: Helen Lieberman DATE: August 10, 2024 TIME: 3:55 PM [facility] THERAPY NT HNO ID: [id number] Author: VERA CUMMINS, PT, DPT Service: Physical Therapy Author Type: Physical Therapist Type: Therapy (PT/OT/Speech/Resp) Filed: 08/10/2024 14:16 Note Text: Summary: PT evaluation Physical Therapy Evaluation Summary SERVICE DATE: 08/10/2024 SERVICE TIME: 1303 to 1356 ROOM: [id number] PT 6 Clicks Score: 21 DISCHARGE RECOMMENDATIONS Home PT Recommended Discharge Disposition Comments: for strengthening s/p HS tear and recent fall Recommended Discharge Equipment: Wheeled Walker ASSESSMENT Response to Therapy Interventions: Good Participation in Activities, Pain Pt tolerated mobility well considering pain. Pt did all that would be needed of her to return home. Recommend home PT at d/c for continued mobility. Pt would like a rollator, but understands that at this time a ww would be her best choice and she would like to look for one prior to getting one through insurance at this point. Therapist did give her 2 options of places to call to see if they have them to lease picker today for her to use. Pt does need CGA to min assist for ambulation and stairs secondary to pain. PRECAUTIONS Fall Risk, Weight Bearing Restrictions Left Lower Extremity Weight Bearing Status: WBAT CURRENT HOSPITAL COURSE fall at home: MRI: IMPRESSION: Complete tear of the LEFT proximal conjoint hamstring tendon with extensive intramuscular and perifascial edema/hemorrhage throughout the posterior compartment of the LEFT thigh. 5.5 cm organized hematoma in the proximal semitendinosus muscle with areas of internal nodular enhancement. Relevant Past Medical History: HTN, HFpEF, AFIB (on Coumadin), hx TIA, and [facility] Patient Lives With: Spouse, Family (grandson who works from home) Assistance Available: 24-Hour Entry To Home: Stairs, With Rail Number Of Stairs Into Home: 5 Number Of Stairs To Bed/Bath: (1 story home, but has a sunkin living room with 2 steps (grandson is going to put a grab bar there, this is where she fell)) Tub/Shower Type: [facility] with and [facility] Laundry: first floor patient completes Equipment Owned: Cane PRIOR FUNCTIONAL LEVEL Within Functional Limits Indeoendnet with ADLS IADLS. No device. + dirving SUBJECTIVE Pt reports I have been waiting for you. THERAPY DIAGNOSIS Reduced mobility-other, Unsteadiness on feet, Difficulty walking-musculoskeletal , Muscle Weakness (generalized) TREATMENT INTERVENTIONS Evaluation, Therapeutic Activity (59330), Gait Training (82491) Timed Code Treatment (minutes): 38 Skilled Treatment Time (minutes): 38 $ Evaluation-Low (35023) Billed Units: 1 unit Therapeutic Activity (74270) Treatment Minutes: 15 $ Therapeutic Activity (85699) Billed Units: 1 unit Gait Training (48979) Treatment Minutes: 23 $ Gait Training (05099) Billed Units: 2 units TRAINING AND EDUCATION PROVIDED Anatomy and Impact on Deficits, Assistive Device Use, Bed Mobility, Benefits of In-Hospital Mobility, Curb Step Navigation, Discharge Planning, Equipment, Expected Functional Level, Gait Pattern, Reduction of Deviations, Falls Prevention, Handout Issued, Modalities, Positioning, Pre-gait Activities, Precautions/Restriction s, Role of Physical Therapy, Stair Navigation, Standing Balance, Transfers, Treatment Protocol, education about pros and cons of wheeled walker and Rolator, paperwork and phone numbers of places to call to see if they have a wheeled walker for loaning THERAPEUTIC SKILLS USED Activity Dosing, Cues for Sequencing/Proper Technique for Activity, Cuing Verbal, Cuing Visual, Muscle Activation Facilitation, Postural Alignment Correction, Physical Assist FUNCTIONAL STATUS Bed Mobility Supine To Sit: Independent Sit to Supine: Independent Scooting: Independent Transfers Sit To Stand: Stand By Assistance Stand To Sit: Stand By Assistance Bed to Chair Contact Guard Assistance Bed To Chair Transfer Type: Stepping Bed To Chair Transfer Equipment: Gait Belt (one hand assist) Gait Stand By Assistance, Minimal Assistance, Additional Information cues for benefit of ww vs rollator when there is a painful side to decrease WB to decrease pain, cues for sequence with walker, cues to push walker instead of picking it up. Gait Device: Wheeled Walker General Deviations/Observations : Antalgic gait, Step length decreased, Loss of Balance Gait Distance (feet): 20 Stairs Contact Guard Assistance, Additional Information Stairs Device: Rail, Cane Number of Stairs: 4 demo prior to pt's performance, did well with stairs, but needed reminders throughout for cane placement when ascending stairs Curb Step: Additional Information therapist demo prior to pt's attempt to perform, when pt approached curb step, she wa in a long tandem stance and then picke (more content not included)... Normal [facility] THERAPY NT HNO ID: [id number] Author: WANDY CARSON OT/Anna Service: Occupational Therapy Author Type: Occupational Therapist Type: Therapy (PT/OT/Speech/Resp) Filed: 08/10/2024 11:45 Note Text: OCCUPATIONAL THERAPY MISSED VISIT SERVICE DATE: 08/10/2024 SERVICE TIME: 1144 ROOM: [place] [address] Patient not seen due to Clinical Appropriateness. Awaiting MRI results and ortho consult prior to OT evaluation. SIGNATURE: MARILIN Clemente PATIENT NAME: Helen Lieberman DATE: August 10, 2024 TIME: 11:45 AM [facility] THERAPY NT HNO ID: [id number] Author: VERA CUMMINS PT, DPT Service: Physical Therapy Author Type: Physical Therapist Type: Therapy (PT/OT/Speech/Resp) Filed: 08/10/2024 11:38 Note Text: Summary: PT missed PHYSICAL THERAPY MISSED VISIT SERVICE DATE: 08/10/2024 SERVICE TIME: 1136 ROOM: [place] [address] Patient not seen due to ordered an MRI for left femur, will wait until MRI results are in, is WBAT on Left LE, but ortho is on consult. Will hold at this time, RN will be updated. SIGNATURE: Vera Cummins PT, DPT PATIENT NAME: Helen Lieberman DATE: August 10, 2024 TIME: 11:37 AM [facility] aPTT PPPon 08-10-2024 aPTT Coag (PPP) [Time] 35.3 s High 23.0-32.4 [facility] Comment on above: Order Comment: Speci men Type: BLOOD SPECIMENOrdering Facility: [facility] Address: [address] [place] [address] Performed By: #### 3 4528-0, 45530-6 ####[facility] [id number] [place] [address] [place] ALLIED HEALTHon 08-09-2024 ALLIED HEALTH HNO ID: [id number] Author: JORDIN LIU, TECHNOLOGIST Service: Radiology Author Type: Technologist Type: Allied Health Filed: 08/09/2024 19:09 Note Text: Radiology Service Progress Note PATIENT NAME: Helen Lieberman DATE OF SERVICE: August 09, 2024 TIME: 7:01 PM PATIENT IDENTITY VERIFICATION COMPLETED USING TWO (2) IDENTIFIERS: Name and Date of confirmed by patient verbally and Name and Date of confirmed by identification band. FALL SCREENING: Has the patient had 2 falls in the last year or 1 fall with injury or currently using an Ambulatory Assistive Device (Walker, Cane, Wheelchair, Crutches, etc.)? No PATIENT GENDER DATA: Female. status: : No status: NO. PATIENT RELEVANT IMPLANT DATA REVIEWED: Yes PATIENT PRESENTS WITH AN IMPLANTABLE OR ATTACHED LAB SCIENTIST: No RADIOLOGY DEPARTMENT: CT; Exam(s) Completed: LT hip PERIPHERAL IV DATA: Not applicable SIGNED BY: Jordin Liu, TECHNOLOGIST August 09, 2024 7:01 PM Normal [facility] CBC W Auto Differential pane l (Bld)on 08-09-2024 Basophils (Bld) [#/Vol] 0.04 10*3/uL Normal <0.11 [facility] Comment on above: Order Comment: Speci men Type: BLOOD SPECIMENOrdering Facility: [facility] Address: [address] [place] [address] Performed By: #### 5 7021-8 ####[facility] [id number] [place] [address] [place] Basophils/100 WBC (Bld) 0.6 % Normal [facility] Comment on above: Order Comment: Speci men Type: BLOOD SPECIMENOrdering Facility: [facility] Address: [address] [place] [address] Performed By: #### 5 7021-8 ####[facility] LABORATORYCLIA [id number] [place] [address] [place] Differential cell count method Nom (Bld) Auto Normal [facility] Comment on above: Order Comment: Speci men Type: BLOOD SPECIMENOrdering Facility: [facility] Address: [address] [place] [address] Performed By: #### 5 7021-8 ####[facility] LABORATORYCLIA [id number] [address] [place] Eosinophils (Bld) [#/Vol] 0.13 10*3/uL Normal <0.46 [facility] Comment on above: Order Comment: Speci men Type: BLOOD SPECIMENOrdering Facility: [facility] Address: [address] [place] [address] Performed By: #### 5 7021-8 ####ME[facility]ER LABORATORYCLIA [id number] [address] [place] Eosinophils/100 WBC (Bld) 1.9 % Normal [facility] Comment on above: Order Comment: Speci men Type: BLOOD SPECIMENOrdering Facility: [facility] Address: [address] [place] [address] Performed By: #### 5 7021-8 ####[facility] LABORATORYCLIA [id number] [address] [place] Erythrocyte distribution width (RBC) [Ratio] 12.4 % Normal 11.5-15.0 [facility] Comment on above: Order Comment: Speci men Type: BLOOD SPECIMENOrdering Facility: [facility] Address: [address] [place] [address] Performed By: #### 5 7021-8 ####[facility] LABORATORYCLIA [id number] [address] [place] Hematocrit (Bld) [Volume fraction] 38.5 % Normal 36.0-46.0 [facility] Comment on above: Order Comment: Speci men Type: BLOOD SPECIMENOrdering Facility: [facility] Address: [address] [place] [address] Performed By: #### 5 7021-8 ####MEYER LABORATORYCLIA [id number] [place] [address] [place] Hemoglobin (Bld) [Mass/Vol] 13.0 g/dL Normal 11.5-15.5 [facility] Comment on above: Order Comment: Speci men Type: BLOOD SPECIMENOrdering Facility: [facility] Address: [address] [place] [address] Performed By: #### 5 7021-8 ####MEYER LABORATORYCLIA [id number] [place] [address] [place] Immature granulocytes (Bld) [#/Vol] 10*3/uL Normal <0.10 [facility] Comment on above: Order Comment: Speci men Type: BLOOD SPECIMENOrdering Facility: [facility] Address: [address] [place] [address] Performed By: #### 5 7021-8 ####MEYER LABORATORYCLIA [id number] [place] [address] [place] Immature granulocytes/100 WBC (Bld) 0.3 % Normal [facility] Comment on above: Order Comment: Speci men Type: BLOOD SPECIMENOrdering Facility: [facility] Address: [address] [place] [address] Performed By: #### 5 7021-8 ####MEYER LABORATORYCLIA [id number] [place] [address] [place] Lymphocytes (Bld) [#/Vol] 1.73 10*3/uL Normal 1.00-4.00 [facility] Comment on above: Order Comment: Speci men Type: BLOOD SPECIMENOrdering Facility: [facility] Address: [address] [place] [address] Performed By: #### 5 7021-8 ####MEYER LABORATORYCLIA [id number] [address] [place] Lymphocytes/100 WBC (Bld) 25.7 % Normal [facility] Comment on above: Order Comment: Speci men Type: BLOOD SPECIMENOrdering Facility: [facility] Address: [address] [place] [address] Performed By: #### 5 7021-8 ####MEYER LABORATORYCLIA [id number] [place] [address] [place] MCH (RBC) [Entitic mass] 32.4 pg Normal 26.0-34.0 [facility] Comment on above: Order Comment: Speci men Type: BLOOD SPECIMENOrdering Facility: [facility] Address: [address] [place] [address] Performed By: #### 5 7021-8 ####MEYER LABORATORYCLIA [id number] [address] [place] MCHC (RBC) [Mass/Vol] 33.8 g/dL Normal 30.5-36.0 [facility] Comment on above: Order Comment: Speci men Type: BLOOD SPECIMENOrdering Facility: [facility] Address: [address] [place] [address] Performed By: #### 5 7021-8 ####MEYER LABORATORYCLIA [id number] [place] [address] [place] MCV (RBC) [Entitic vol] 96.0 fL Normal 80.0-100.0 [facility] Comment on above: Order Comment: Speci men Type: BLOOD SPECIMENOrdering Facility: [facility] Address: [address] [place] [address] Performed By: #### 5 7021-8 ####MEYER LABORATORYCLIA [id number] [place] [address] [place] Monocytes (Bld) [#/Vol] 0.64 10*3/uL Normal <0.87 [facility] Comment on above: Order Comment: Speci men Type: BLOOD SPECIMENOrdering Facility: [facility] Address: [address] [place] [address] Performed By: #### 5 7021-8 ####MEYER LABORATORYCLIA [id number] [address] Monocytes/100 WBC (Bld) 9.5 % Normal [facility] Comment on above: Order Comment: Speci men Type: BLOOD SPECIMENOrdering Facility: [facility] Address: [address] [place] [address] Performed By: #### 5 7021-8 ####MEYER LABORATORYCLIA [id number] [place] [address] [place] Neutrophils (Bld) [#/Vol] 4.18 10*3/uL Normal 1.45-7.50 [facility] Comment on above: Order Comment: Speci men Type: BLOOD SPECIMENOrdering Facility: [facility] Address: [address] [place] [address] Performed By: #### 5 7021-8 ####MEYER LABORATORYCLIA [id number] [place] [address] [place] Neutrophils/100 WBC (Bld) 62.0 % Normal [facility] Comment on above: Order Comment: Speci men Type: BLOOD SPECIMENOrdering Facility: [facility] Address: [address] [place] [address] Performed By: #### 5 7021-8 ####MEYER LABORATORYCLIA [id number] [place] [address] [place] Nucleated RBC (Bld) [#/Vol] 10*3/uL Normal <0.01 [facility] Comment on above: Order Comment: Speci men Type: BLOOD SPECIMENOrdering Facility: [facility] Address: [address] [place] [address] Performed By: #### 5 7021-8 ####MEYER LABORATORYCLIA [id number] [address] [place] Nucleated RBC/100 WBC (Bld) [Ratio] 0.0 /100 WBC Normal [facility] Comment on above: Order Comment: Speci men Type: BLOOD SPECIMENOrdering Facility: [facility] Address: [address] [place] [address] Performed By: #### 5 7021-8 ####MEYER LABORATORYCLIA [id number] [place] [address] [place] Platelet mean volume (Bld) [Entitic vol] 8.7 fL Low 9.0-12.7 [facility] Comment on above: Order Comment: Speci men Type: BLOOD SPECIMENOrdering Facility: [facility] Address: [address] [place] [address] Performed By: #### 5 7021-8 ####MEYER LABORATORYCLIA [id number] [place] [address] [place] Platelets (Bld) [#/Vol] 302 10*3/uL Normal 150-400 [facility] Comment on above: Order Comment: Speci men Type: BLOOD SPECIMENOrdering Facility: [facility] Address: [address] [place] [address] Performed By: #### 5 7021-8 ####MEYER LABORATORYCLIA [id number] [place] [address] [place] RBC (Bld) [#/Vol] 4.01 10*6/uL Normal 3.90-5.20 [facility] Comment on above: Order Comment: Speci men Type: BLOOD SPECIMENOrdering Facility: [facility] Address: [address] [place] [address] Performed By: #### 5 7021-8 ####MEYER LABORATORYCLIA [id number] [place] [id number] [place] WBC (Bld) [#/Vol] 6.74 10*3/uL Normal 3.70-11.00 [facility] Comment on above: Order Comment: Speci men Type: BLOOD SPECIMENOrdering Facility: [facility] Address: [address] [place] [address] Performed By: #### 5 7021-8 ####MEYER LABORATORYCLIA [id number] [address] OF [facility] CT HIP WO IVCON LTon 024 CT HIP WO IVCON LT * * *Final Report* * * DATE OF EXAM: Aug 09 2024 7:17PM [facility] 0079 - CT HIP WO IVCON LT / PROCEDURE REASON: Fracture, hip * * * * Physician Interpretation * * * * EXAMINATION: CT HIP WO IVCON LT CLINICAL INDICATION: Posterior left hip pain after fall negative radiographs. COMPARISON: Pelvis and left hip radiographs from earlier the same day. TECHNIQUE: Axial CT images were obtained of the left hip without intravenous contrast. Coronal and sagittal reformatted images were performed. CT Radiation dose: Integrated Dose-length product (DLP) for this visit = 99.48 mGy*cm. CT Dose Reduction Employed: Automated exposure control(AEC) and iterative recon FINDINGS: No acute osseous abnormality. No destructive osseous lesion or evidence of osteonecrosis. No significant degenerative changes in the left hip or pubic symphysis. Mild/moderate degenerative changes of the included left sacroiliac joint. No large left hip joint effusion. There is heterogeneity of the left hamstring musculature extending below the included bvwdx-tn-ttio suggesting hematoma and strain, suboptimally evaluated by CT. No gross tear of the left hamstring tendons on suboptimal evaluation. No muscle atrophy. Proximal left sciatic nerve is normal caliber with preserved perineural fat. Moderate to severe atherosclerotic calcifications. Included pelvis appears unremarkable. IMPRESSION: 1. No acute osseous abnormality left hip. 2. Heterogeneity of the left hamstring musculature extending below the included uahoz-po-dsvg suggesting hematoma from strain. Unclear tear of the left hamstring tendons. This is suboptimally evaluated on CT. Recommend outpatient MRI for better evaluation. 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: PSCB Transcribe Date/Time: Aug 09 2024 9:02P Dictated by : TIERA GUTIERREZ MD This examination was interpreted and the report reviewed and electronically signed by: TIERA GUTIERREZ MD on Aug 09 2024 9:12PM EST [id number] Normal [facility] Comprehensive metabolic 2000 panelon 08-09-2024 Albumin [Mass/Vol] 4.2 g/dL Normal 3.9-4.9 [facility] Comment on above: Order Comment: Marti hankins Type: BLOOD SPECIMEN [facility]ing Facility: [facility] Address: [address] [place] [address] Performed By: #### 5 8410-2 #### [facility] CLIA [id number] [address] STATES OF [facility] ALP [Catalytic activity/Vol] 68 U/L Normal 34-123 [facility] Comment on above: Order Comment: Marti hankins Type: BLOOD SPECIMEN Ordering Facility: [facility] Address: [address] [place] [address] Performed By: #### 5 8410-2 #### [facility] CLIA [id number] [address] [place] [address] [place] ALT [Catalytic activity/Vol] 14 U/L Normal 7-38 [facility] Comment on above: Order Comment: Marti [facility] Type: BLOOD SPECIMEN Ordering Facility: [facility] Address: [address] [place] [address] Performed By: #### 5 8410-2 #### [facility] CLIA [id number] [address] [place] [address] [place] [facility] Anion gap [Moles/Vol] 9 mmol/L Normal 8-15 [facility] Comment on above: Order Comment: Speci men Type: BLOOD SPECIMEN Ordering Facility: [facility] Address: [address] [place] [address] Performed By: #### 5 8410-2 #### [facility] CLIA [id number] [address] [place] [address] [place] AST [Catalytic activity/Vol] 22 U/L Normal 13-35 [facility] Comment on above: Order Comment: Speci men Type: BLOOD SPECIMEN Ordering Facility: [facility] Address: [address] [place] [address] Performed By: #### 5 8410-2 #### [facility] CLIA [id number] [address] [place] [address] [place] Bilirubin [Mass/Vol] 0.7 mg/dL Normal 0.2-1.3 [facility] Comment on above: Order Comment: Speci men Type: BLOOD SPECIMEN [facility]ing Facility: [facility] Address: [address] [place] [address] Performed By: #### 5 8410-2 #### [facility] CLIA [id number] [address] [place] [address] [place] Calcium [Mass/Vol] 9.5 mg/dL Normal 8.5-10.2 [facility] Comment on above: Order Comment: Speci men Type: BLOOD SPECIMEN Ordering Facility: [facility] Address: [address] [place] [address] Performed By: #### 5 8410-2 #### [facility] CLIA [id number] [address] [place] [address] [place] Chloride [Moles/Vol] 92 mmol/L Low 98-107 [facility] Comment on above: Order Comment: Speci men Type: BLOOD SPECIMEN [facility]ing Facility: [facility] Address: [address] [place] [address] Performed By: #### 5 8410-2 #### [facility] CLIA [id number] [address] [place] [address] [place] CO2 [Moles/Vol] 28 mmol/L Normal 22-30 [facility] Comment on above: Order Comment: Speci men Type: BLOOD SPECIMEN Ordering Facility: [facility] Address: [address] [place] [address] Performed By: #### 5 8410-2 #### [facility] CLIA [id number] [address] Creatinine [Mass/Vol] 0.84 mg/dL Normal 0.58-0.96 [facility] Comment on above: Order Comment: Shanika cr Type: BLOOD SPECIMEN Ordering Facility: [facility] Address: [address] [place] [address] Performed By: #### 5 8410-2 #### [facility] CLIA [id number] [address] Creatinine and Glomerular filtration rate.predicted panel (S/P/Bld) 67 mL/min/1.73m??? Normal >=60 [facility] Comment on above: Order Comment: Marti [facility] Type: BLOOD SPECIMEN Ordering Facility: [facility] Address: [address] [place] [address] Result Comment: Dolores mated Glomerular Filtration Rate (eGFR) is calculated using the 2020 CKD-EPI creatinine equation. This equation utilizes serum creatinine, sex, and age as parameters. The creatinine assay has traceable calibration to isotope dilution-mass spectrometry. Refer to KDIGO guidelines for clinical interpretation. In patients with unstable renal function, e.g. those with acute kidney injury, the eGFR may not accurately reflect actual GFR. Performed By: #### 5 8410-2 #### [facility] CLIA [id number] [address] [place] Glucose [Mass/Vol] 119 mg/dL High 74-99 [facility] Comment on above: Order Comment: Marti [facility] Type: BLOOD SPECIMEN Ordering Facility: [facility] Address: [address] [place] [address] Result Comment: The [place] Diabetes Association (ADA) provides guidance for cutoff values for fasting glucose and random glucose. The ADA defines fasting as no caloric intake for at least 8 hours. Fasting plasma glucose results between 100 to 125 mg/dL indicate increased risk for diabetes (prediabetes). Fasting plasma glucose results greater than or equal to 126 mg/dL meet the criteria for diagnosis of diabetes. In the absence of unequivocal hyperglycemia, results should be confirmed by repeat testing. In a patient with classic symptoms of hyperglycemia or hyperglycemic crisis, random plasma glucose results greater than or equal to 200 mg/dL meet the criteria for diagnosis of diabetes. Reference: Standards of Medical Care in Diabetes 2016, [place] [employer]. Diabetes Care. 2016.39(Suppl 1). Performed By: #### 5 8410-2 #### [facility] CLIA [id number] [address] [place] [facility] Potassium [Moles/Vol] 5.0 mmol/L Normal 3.7-5.1 [facility] Comment on above: Order Comment: Shanikai cr Type: BLOOD SPECIMEN Ordering Facility: [facility] Address: [address] [place] [address] Performed By: #### 5 8410-2 #### [facility] CLIA [id number] [address] Protein [Mass/Vol] 7.2 g/dL Normal 6.3-8.0 [facility] Comment on above: Order Comment: Shanikai cr Type: BLOOD SPECIMEN Ordering Facility: [facility] Address: [address] [place] [address] Performed By: #### 5 8410-2 #### [facility] CLIA [id number] [address] Sodium [Moles/Vol] 129 mmol/L Low 136-144 [facility] Comment on above: Order Comment: Marti hankins Type: BLOOD SPECIMEN Ordering Facility: [facility] Address: [address] [place] [address] Performed By: #### 5 8410-2 #### [facility] CLIA [id number] [address] Urea nitrogen [Mass/Vol] 14 mg/dL Normal 7-21 [facility] Comment on above: Order Comment: Shanikai cr Type: BLOOD SPECIMEN Ordering Facility: [facility] Address: [address] [place] [address] Performed By: #### 5 8410-2 #### [facility] CLIA [id number] [address] [place] ECG COMPLETEon 11-14-2024 ECG COMPLETE Ventricular Rate : 6 7 BPM Atrial Rate : 67 BPM P-R Interval : 212 ms QRS Duration : 80 ms Q-T Interval : 406 ms QTC Calculation(Bazett) : 429 ms Calculated P Mayer : 106 degrees Calculated R Mayer : 37 degrees Calculated T Mayer : 45 degrees SINUS RHYTHM WITH 1ST DEGREE A-V BLOCK OTHERWISE NORMAL ECG NO STEMI Confirmed by SHERINE ADAME DO ([id number]), department editor TAJ NELSON ([id number]) on 08/10/2024 1:06:45 PM NAME : HELEN LIEBERMAN PID : [id number] : 1935 Gender : Female Race : ORD : [id number] Procedure Date : Aug 09 2024 16:46:07 Edit Date : Aug 10 2024 13:06:48 Diagnosis: SINUS RHYTHM WITH 1ST DEGREE A-V BLOCK OTHERWISE NORMAL ECG NO STEMI Confirmed by SHERINE ADAME DO ([id number]), department editor TAJ NELSON ([id number]) on 08/10/2024 1:06:45 PM Test Reason : Chest Pain Location : 1 : ER ED Overread By : SHERINE ADAME DO Edited By : TAJ NELSON Referred By : , Acquired by : [facility] ED NOTEon 08-09-2024 ED NOTE HNO ID: [id number] Author: TARAH REINOSO RN Service: Nursing Author Type: Registered Nurse Type: ED Notes Filed: 08/09/2024 22:14 Note Text: [facility] ED NOTE HNO ID: [id number] Author: TARAH REINOSO RN Service: ? Author Type: Registered Nurse Type: ED Notes Filed: 08/09/2024 16:27 Note Text: Bed: ED-17 Expected date: Expected time: Means of arrival: [facility]/EMS Comments: [facility] ED PROV NOTEon 08-09-2024 ED PROV NOTE HNO ID: [id number] Author: SHERINE ADAME DO Service: Emergency Medicine Author Type: Physician Type: ED Provider Notes Filed: 08/09/2024 22:55 Note Text: ED Provider Note Patient Name: Helen Lieberman : 1935 SERVICE DATE: 08/09/24 History Patient presents with: Fall: Pt was walking into living room and tripped on last time, left leg hit grandfather clock. Grandson was home and helped patient get up. No LOC or head injury. Pain in back on left leg. Pt is on BP medication, missed afternoon dose. Pt is on a blood thinner. Hypertension 88-year-old white female that presents to the emergency room via EMS with her son for a fall at home. States that she was walking into her sunken living room and slipped on the last step and struck her left hip against the corner of her grandfather clock. She is complaining of lateral left hip pain and left posterior thigh pain. She denies any head strike or loss consciousness. She is on Coumadin secondary to A-fib and previous TIAs. She also has hypertension. The patient is also complaining of a skin tear to her left fifth finger and left elbow. She states her blood pressure has been running high at home and she has been taking her Coreg and losartan as prescribed. Denies any chest pain or shortness of breath, no ankle swelling. 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 used: No PAST MEDICAL HISTORY Diagnosis Date Atrial fibrillation (HCC) 07/29/2021 Essential hypertension Gallstone pancreatitis Pancreatitis PAST SURGICAL HISTORY Procedure Laterality Date SECTION HX x4 FOOT SURGERY HX right side HERNIA REPAIR HX KNEE SURGERY HX Right REMOVAL GALLBLADDER FAMILY HISTORY Problem Relation Age of Onset Stroke Mother other (tia) Sister Diabetes Sister Dementia Sister Lung Cancer Sister Stroke Sister Hypertension Sister Heart Brother Social History Tobacco Use Smoking status: Never Smokeless tobacco: Never Vaping Use Vaping status: Never Used Substance and Sexual Activity Alcohol use: Yes Comment: Rarely Drug use: Never Sexual activity: Not on file ALLERGIES Allergen Reactions Penicillins Unknown Sulfa (Sulfonamide * Unknown Tetracyclines Unknown Review of Systems Constitutional: Negative for diaphoresis. Respiratory: Negative for chest tightness and shortness of breath. Cardiovascular: Negative for chest pain, palpitations and leg swelling. Gastrointestinal: Negative for abdominal pain, diarrhea, nausea and vomiting. Musculoskeletal: Positive for gait problem. Negative for back pain and neck pain. Left hip and posterior thigh pain Skin: Positive for wound (left elbow and left 5th finger). Neurological: Negative for headaches. All other systems reviewed and are negative. Physical Exam Vitals BP Pulse Temp Temp src Resp SpO2 Weight Height 08/09/24 1630 08/09/24 1630 08/09/24 1630 08/09/24 1630 08/09/24 1630 08/09/24 1630 08/09/24 1630 08/09/24 2236 (!) 247/126 77 36.4 ?C (97.6 ?F) Oral 16 98 % 61 kg (134 lb 7.7 oz) 1.575 m (5' 2) Physical Exam Vitals and nursing note reviewed. Exam conducted with a renal social worker present (Staff). Constitutional: General: She is awake. She is not in acute distress. Appearance: Normal appearance. She is well-developed, well-groomed and normal weight. She is not ill-appearing, toxic-appearing or diaphoretic. HENT: Head: Normocephalic and atraumatic. Jaw: There is normal jaw occlusion. Right Ear: Hearing, tympanic membrane, ear canal and external ear normal. Left Ear: Hearing, tympanic membrane, ear canal and external ear normal. Nose: Nose normal. Mouth/Throat: Lips: [place]. Mouth: Mucous membranes are moist. Pharynx: Oropharynx is clear. Uvula midline. Eyes: General: Lids are normal. Vision grossly intact. Extraocular Movements: Extraocular movements intact. Conjunctiva/sclera: Conjunctivae normal. Pupils: Pupils are equal, round, and reactive to light. Neck: Trachea: Trachea and phonation normal. Meningeal: Brudzinski's sign and Kernig's sign absent. Cardiovascular: Rate and Rhythm: Normal rate and regular rhythm. Pulses: Normal pulses. Dorsalis pedis pulses are 2+ on the right side and 2+ on the left side. Posterior tibial pulses are 2+ on the right side and 2+ on the left side. Heart sounds: Normal heart sounds. No murmur heard. Pulmonary: Effort: Pulmonary effort is normal. Breath sounds: Normal breath sounds and air entry. No stridor. Abdominal: General: Abdomen is flat. Bowel sounds are normal. Palpations: Abdomen is soft. Tenderness: There is no abdominal tenderness. Musculoskeletal: General: Normal range of motion. Left shoulder: Normal. Left upper arm: Normal. Left elbow: Laceration (skin tear) present. No swelling, deformity or effusion. Normal range of motion. No tenderness. Left forearm: Normal (more content not included)... Normal [facility] HIGH SENSITIVITY TROPONIN T (INITIAL)on 08-09-2024 Troponin T.cardiac High sensitivity method [Mass/Vol] 18 ng/L High <[address] [place] [address] Comment on above: Order Comment: Marti hankins Type: BLOOD SPECIMEN Ordering Facility: [facility] Address: [address] [place] [address] Performed By: #### 5 8410-2 #### [facility] CLIA [id number] [address] HIGH SENSITIVITY TROPONIN T (SECOND)on 08-09-2024 Troponin T.cardiac High sensitivity method [Mass/Vol] 17 ng/L High <[address] [place] [address] Comment on above: Order Comment: Marti hankins Type: BLOOD SPECIMENOrdering Facility: [facility] Address: [address] [place] [address] Performed By: #### L [id number] ####[facility]ORATORYCLIA [id number] [place] [address] HIGH SENSITIVITY TROPONIN T (THIRD) 3 HRS AFTER INITIALon 08-09-2024 Troponin T.cardiac High sensitivity method [Mass/Vol] 17 ng/L High <[address] [place] [address] Comment on above: Order Comment: Marti hankins Type: BLOOD SPECIMEN Ordering Facility: [facility] Address: [address] [place] [address] Performed By: #### 5 8410-2 #### [facility] CLIA [id number] [address] [place] [address] HISTORY PHYSICALon HISTORY PHYSICAL HNO ID: [id number] Author: VERA OLSEN PA-C Service: Hospital Medicine Author Type: Physician Media Manager Type: H&P Filed: 08/09/2024 23:10 Note Text: Attestation signed by Shirley Bowen MD at 08/09/2024 11:39 PM Discussed with provider below and I agree with their history exam assessment and plan. Shirley Bowen MD DEPARTMENT OF HOSPITAL MEDICINE HISTORY AND PHYSICAL EXAM SERVICE DATE: 08/09/2024 SERVICE TIME: 11:08 PM Primary Care Physician: Tanya Lozano APRN.[facility] NIGHT AND WEEKEND COVERAGE: [facility] COVERAGE: Days: [phone], please page attending physician. Nights: [phone], please page [facility] Night coverage pager [phone]. Subjective CHIEF COMPLAINT: fall, left hip pain HPI: This is a 88 year old female with PMHx of HTN, HFpEF, AFIB (on Coumadin), hx TIA, and GERD who presents with fall, left hip pain. Patient endorses tripping in her living room on the last stair and hitting her left hip on a grandfather clock. She was assisted up by her grandson. She denies hitting her head or LOC. He endorses pain in her proximal posterior thigh. She missed her afternoon dose of her BP med. She has wounds on her left elbow and left 5th digit. She states she has had sinus congestion for the past 3 days but denies cough or sick contacts; declines Covid test. She denies smoking, alcohol use, illicit drug use. She denies lightheadedness, dizziness, syncope, chest pain, shortness of breath, abdominal pain, nausea, vomiting, diarrhea, constipation, dysuria, lower extremity edema. ED course: Afebrile, BP 247/126, HR 77, RR 16 with SpO2 16% on RA. CBC unremarkable. CMP glucose 119, sodium 129. Magnesium WNL. INR 3.0. aPTT 41.5. NTproBNP 815. HS troponin 18 > 17 > 17. UA with trace Hgb. CXR: No acute cardiopulmonary process. Xray left hip/femur: No acute osseous abnormality. CT left hip: 1. No acute osseous abnormality left hip. 2. Heterogeneity of the left hamstring musculature extending below the included [id number] suggesting hematoma from strain. Unclear tear of the left hamstring tendons. This is suboptimally evaluated on CT. Recommend outpatient MRI for better evaluation. Patient given 1L NS bolus, Dtap, Coreg, Tylenol. ED physician spoke to Ortho who agrees to see the patient in consult. Patient admitted to [facility] under the hospital medicine service for management of left hip pain and left thigh hematoma s/p fall. PAST MEDICAL HISTORY Diagnosis Date Atrial fibrillation (HCC) 07/29/2021 Essential hypertension Gallstone pancreatitis Pancreatitis PAST SURGICAL HISTORY Procedure Laterality Date SECTION HX x4 FOOT SURGERY HX right side HERNIA REPAIR HX KNEE SURGERY HX Right REMOVAL GALLBLADDER FAMILY HISTORY Problem Relation Age of Onset Stroke Mother other (tia) Sister Diabetes Sister Dementia Sister Lung Cancer Sister Stroke Sister Hypertension Sister Heart Brother Social History Tobacco Use Smoking status: Never Smokeless tobacco: Never Vaping Use Vaping status: Never Used Substance Use Topics Alcohol use: Yes Comment: Rarely Drug use: Never PRIOR TO ADMISSION MEDICATIONS: carvedilol (COREG) 12.5 mg tablet, Take 2 tablets by mouth two times a day. TAKE WITH FOOD., Disp: 360 tablet, Rfl: [address] (PROTONIX) 40 mg tablet, Take 1 tablet by mouth once daily., Disp: 90 tablet, Rfl: 3, 08/09/2024 losartan (COZAAR) 100 mg tablet, Take 1 tablet by mouth once daily., Disp: 90 tablet, Rfl: 3, 08/09/2024 levothyroxine (SYNTHROID) 75 mcg tablet, TAKE 1 TABLET BY MOUTH IN THE MORNING ON AN EMPTY STOMACH, Disp: 270 tablet, Rfl: 0, 08/09/2024 warfarin (COUMADIN) 3 mg tablet, take 1 tablet by mouth daily as directed (Patient taking differently: Take 3 mg by mouth once daily. Except Tuesday she takes 2 MG), Disp: 90 tablet, Rfl: 3, 08/08/2024 polyethylene glycol 3350 (MIRALAX, GLYCOLAX) 17 gram packet, Take 17 g by mouth once daily. Dissolve dose in 4 - 8 ounces of liquid and take as directed., Disp: , Rfl: , 08/09/2024 Cholecalciferol, Vitamin D3, 50 mcg (2,000 unit) cap, Take by mouth once daily., Disp: , Rfl: , 08/09/2024 oxybutynin XL (DITROPAN XL) 5 mg 24 hr tablet, Take 1 tablet by mouth once daily., Disp: 90 tablet, Rfl: 3 warfarin (COUMADIN) 2 mg tablet, Take 1 tablet by mouth daily as directed. (Patient taking differently: Take 2 mg by mouth every Tuesday.), Disp: 90 tablet, Rfl: 1 warfarin (COUMADIN) 4 mg tablet, Take 1 tablet by mouth once daily. (Patient not taking: Reported on 08/09/2024), Disp: 90 tablet, Rfl: 3, Not Taking hyoscyamine sublingual (LEVSIN SL) 0.125 mg, TAKE 1 TABLET UNDER THE TONGUE EVERY 6 HOURS NEEDED, Disp: , Rfl: , Unknown ALLERGIES Allergen Reactions Penicillins Unknown (more content not included)... Normal [facility] Magnesium [facility] 08-09 Magnesium [Mass/Vol] 1.9 mg/dL Normal 1.7-2.3 [facility] Comment on above: Order Comment: Marti hankins Type: BLOOD SPECIMEN Ordering Facility: [facility] Address: [address] [place] [address] Performed By: #### 5 8410-2 #### [facility] CLIA [id number] [address] [place] NT-proBNP [facility] 08-09 Natriuretic peptide.B prohormone N-Terminal [Mass/Vol] 815 pg/mL High <450 [facility] Comment on above: Order Comment: Marti hankins Type: BLOOD SPECIMEN Ordering Facility: [facility] Address: [address] [place] [address] Performed By: #### 5 8410-2 #### [facility] CLIA [id number] [address] [place] [address] [place] PT panel Coag (PPP)on 2023 INR Coag (PPP) [Relative time] 3.0 {INR} High 0.9-1.3 [facility] Comment on above: Order Comment: Marti hankins Type: BLOOD SPECIMEN Ordering Facility: [facility] Address: [address] [place] [address] Result Comment: Mirna min K Antagonist (VKA) Therapeutic Range: INR 2 to 3 (Target INR of 2.5) Note: For patients treated with VKA drugs, such as warfarin, the [place] [employer] 2012 Guideline recommends a therapeutic INR range of 2 to 3 (target INR of 2.5). This recommendation includes high-risk patients with antiphospholipid syndrome with previous arterial or venous thromboembolism, current-generation mechanical or bioprosthetic aortic heart valve replacement. Note: Patients with mechanical aortic valve replacement and additional risk factors for thromboembolic events (atrial fibrillation, previous thromboembolism, LV dysfunction, hypercoagulable conditions) or an older generation mechanical AVR (i.e., ball in-Cage) or any mechanical MVR should have a INR therapeutic range of 2.5 to 3.5 (target INR of 3). Kvng CARMONA, et al. Chest 2012, 141:7S-47S Jayce ALVARADO et al. [facility] 2017, 70: 252-289 Performed By: #### 5 8410-2 #### [facility] CLIA [id number] [address] [place] PT Coag (PPP) [Time] 28.9 s High 9.7-13.0 [facility] Comment on above: Order Comment: Marti hankins Type: BLOOD SPECIMEN Ordering Facility: [facility] Address: [address] [place] [address] Performed By: #### 5 8410-2 #### [facility] CLIA [id number] [address] [place] Urate SerPl-mCncon Urate [Mass/Vol] 2.8 mg/dL Normal 2.5-6.6 [facility] Comment on above: Order Comment: Marti hankins Type: BLOOD SPECIMEN Ordering Facility: [facility] Address: [address] [place] [address] Performed By: #### 5 8410-2 #### [facility] CLIA [id number] [address] [place] Urinalysis complete panel (U )on 08-09-2024 Bacteria LM.HPF (Urine sed) [#/Area] None Seen Normal None Seen [facility] Comment on above: Order Comment: Speci men Type: URINE SPECIMENOrdering Facility: [facility] Address: [address] [place] [address] Performed By: #### 2 4356-8 ####[facility]ORATORYCLIA [id number] [place] [address] [place] Bilirubin Ql (U) Negative Normal Negative [facility] Comment on above: Order Comment: Speci men Type: URINE SPECIMENOrdering Facility: [facility] Address: [address] [place] [address] Performed By: #### 2 4356-8 ####[facility]ORATORYCLIA [id number] [address] [place] Clarity (Unsp spec) Clear Normal Clear [facility] Comment on above: Order Comment: Speci men Type: URINE SPECIMENOrdering Facility: [facility] Address: [address] [place] [address] Performed By: #### 2 4356-8 ####[facility] LABORATORYCLIA [id number] [address] [place] Color (U) Yellow Normal Yellow [facility] Comment on above: Order Comment: Speci men Type: URINE SPECIMENOrdering Facility: [facility] Address: [address] [place] [address] Performed By: #### 2 4356-8 ####[facility]ORATORYCLIA [id number] [address] Epithelial cells LM.HPF (Urine sed) [#/Area] Few Normal [facility] Comment on above: Order Comment: Speci men Type: URINE SPECIMENOrdering Facility: [facility] Address: [address] [place] [address] Performed By: #### 2 4356-8 ####[facility]ORATORYCLIA [id number] [address] [place] Glucose Test strip (U) [Mass/Vol] Negative Normal Negative [facility] Comment on above: Order Comment: Speci men Type: URINE SPECIMENOrdering Facility: [facility] Address: [address] [place], [place] [address] Performed By: #### 2 4356-8 ####[facility] LABORATORYCLIA [id number] [place] [address] [place] Hemoglobin Ql (U) Trace Abnormal Negative [facility] Comment on above: Order Comment: Speci men Type: URINE SPECIMENOrdering Facility: [facility] Address: [address] [place] [address] Performed By: #### 2 4356-8 ####[facility]ORATORYCLIA [id number] [place] [address] [place] Ketones Ql (U) Negative Normal Negative [facility] Comment on above: Order Comment: Speci men Type: URINE SPECIMENOrdering Facility: [facility] Address: [address] [place] [address] Performed By: #### 2 4356-8 ####[facility]ORATORYCLIA [id number] [address] Leukocyte esterase Test strip Ql (U) Negative Normal Negative [facility] Comment on above: Order Comment: Speci men Type: URINE SPECIMENOrdering Facility: [facility] Address: [address] [place] [address] Performed By: #### 2 4356-8 ####[facility]ORATORYCLIA [id number] [address] STATES [facility] Nitrite Ql (U) Negative Normal Negative [facility] Comment on above: Order Comment: Speci men Type: URINE SPECIMENOrdering Facility: [facility] Address: [address] [place] [address] Performed By: #### 2 4356-8 ####[facility] LABORATORYCLIA [id number] [address] [place] pH (U) 7.5 [pH] Normal 5.0-8.0 [facility] Comment on above: Order Comment: Speci men Type: URINE SPECIMENOrdering Facility: [facility] Address: [address] [place] [address] Performed By: #### 2 4356-8 ####[facility]ORATORYCLIA [id number] [address] [place] Protein (U) [Mass/Vol] Negative Normal Negative [facility] Comment on above: Order Comment: Speci men Type: URINE SPECIMENOrdering Facility: [facility] Address: [address] [place] [address] Performed By: #### 2 4356-8 ####[facility] LABORATORYCLIA [id number] [place] [address] [place] RBC LM.HPF (Urine sed) [#/Area] 0-3 /HPF Normal 0-3 /HPF [facility] Comment on above: Order Comment: Speci men Type: URINE SPECIMENOrdering Facility: [facility] Address: [address] [place] [address] Performed By: #### 2 4356-8 ####[facility]ORATORYCLIA [id number] [address] Specific gravity (U) [Rel density] 1.010 Normal 1.005-1.030 [facility] Comment on above: Order Comment: Speci men Type: URINE SPECIMENOrdering Facility: [facility] Address: [address] [place] [address] Performed By: #### 2 4356-8 ####[facility]ORATORYCLIA [id number] [address] Urobilinogen Ql (U) 0.2 EU/dL Normal 0.2-1.0 EU/dL [facility] Comment on above: Order Comment: Speci men Type: URINE SPECIMENOrdering Facility: [facility] Address: [address] [place] [address] Performed By: #### 2 4356-8 ####[facility]ORATORYCLIA [id number] [address] [place] WBC LM.HPF (Urine sed) [#/Area] 0-5 /HPF Normal 0-5 /HPF [facility] Comment on above: Order Comment: Speci men Type: URINE SPECIMENOrdering Facility: [facility] Address: [address] [place] [address] Performed By: #### 2 4356-8 ####[facility] LABORATORYCLIA [id number] [place] [address] [place] XR CHEST 1V FRONTAL PORTon 10-09-2023 XR CHEST 1V FRONTAL PORT * * *Final Report* * * DATE OF EXAM: Aug 09 2024 5:38PM MDX 5376 - XR CHEST 1V FRONTAL PORT / PROCEDURE REASON: Pre-op * * * * Physician Interpretation * * * * EXAM: XR CHEST 1V FRONTAL PORT CLINICAL HISTORY: Pre-op Pre-op COMPARISON: 09/07/2023 RESULT: Lines, tubes, and devices: None. Lungs and pleura: Bilateral lung castellanos are clear. No pneumothorax or suggestion for obvious/significant pleural effusions. Cardiomediastinal silhouette: Stable cardiomediastinal silhouette. Osteopenia. Bilateral shoulder DJD. IMPRESSION: No acute cardiopulmonary process. 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: [employer] Transcribe Date/Time: Aug 09 2024 6:13P Dictated by : TROY OROZCO MD This examination was interpreted and the report reviewed and electronically signed by: TROY OROZCO MD on Aug 09 2024 6:14PM EST [id number] [facility] XR FEMUR 2V AP/LAT LTon 07-27 XR FEMUR 2V AP/LAT LT * * *Final Report* * * DATE OF EXAM: Aug 09 2024 5:38PM MDX 5332 - XR FEMUR 2V AP/LAT LT / PROCEDURE REASON: Fracture, femur * * * * Physician Interpretation * * * * EXAM: XR HIP 3V PELV+ AP/LAT LT, XR FEMUR 2V AP/LAT LT CLINICAL HISTORY: Fracture, hip RESULT: Single AP view of the pelvis with AP and lateral views of the left hip. AP and lateral views of the left femur. Generalized osteopenia. Pelvic ring appears intact. No evidence for acute fracture in the pelvis, left hip or left femur. Mild degenerative changes in both hips in the left knee. No dislocation. Peripheral vascular calcifications. Soft tissues are radiographically unremarkable for acute abnormality. IMPRESSION: No acute osseous abnormality. 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: [employer] Transcribe Date/Time: Aug 09 2024 6:11P Dictated by : TROY OROZCO MD This examination was interpreted and the report reviewed and electronically signed by: TROY OROZCO MD on Aug 09 2024 6:12PM EST [id number] [facility] XR HIP 3V PELV+ AP/LAT LTon 08-09-2024 XR HIP 3V PELV+ AP/LAT LT * * *Final Report* * * DATE OF EXAM: Aug 09 2024 5:38PM MDX 5351 - XR HIP 3V PELV+ AP/LAT LT / PROCEDURE REASON: Fracture, hip * * * * Physician Interpretation * * * * EXAM: XR HIP 3V PELV+ AP/LAT LT, XR FEMUR 2V AP/LAT LT CLINICAL HISTORY: Fracture, hip RESULT: Single AP view of the pelvis with AP and lateral views of the left hip. AP and lateral views of the left femur. Generalized osteopenia. Pelvic ring appears intact. No evidence for acute fracture in the pelvis, left hip or left femur. Mild degenerative changes in both hips in the left knee. No dislocation. Peripheral vascular calcifications. Soft tissues are radiographically unremarkable for acute abnormality. IMPRESSION: No acute osseous abnormality. 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: [employer] Transcribe Date/Time: Aug 09 2024 6:11P Dictated by : TROY OROZCO MD This examination was interpreted and the report reviewed and electronically signed by: TROY OROZCO MD on Aug 09 2024 6:12PM EST [id number] [facility] aPTT PPPon 08-09-2024 aPTT Coag (PPP) [Time] 41.5 s High 23.0-32.4 [facility] Comment on above: Order Comment: Speci men Type: BLOOD SPECIMEN Ordering Facility: [facility] Address: [address] [place] [address] Performed By: #### 5 8410-2 #### [facility] CLIA [id number] [address] [place] [address] [facility] CNNURSEon 07-18-2024 CNNURSE Nurse Visit (AGINTML W) SHELLHELEN HUNTER ([id number]) 1935 F Date Time Provider Department 07/18/24 8:20 AM NURSE CASSANDRA HUSSEIN During your visit today, we recorded the following information about you: Blood pressure 156/60 Corrine Birmingham LPN 07/18/2024 9:34 AM Signed Pt in office for INR check. Pt INR 2.3 today 07/18/2024. Pt currently taking 2 mg on Sundays and 3 mg all other days. Last INR 2.4 on 06/18/2024. 1st bp today 07/18/2024 154/62 2nd bp 156/60 Pt states that she has not taken her medication yet today. Per Tanya Lozano CNP pt to continue same dosage and follow up in 1 month. Pt to take medication for bp when she gets home. Pt aware and verbalized an understanding. Corrine Birmingham LPN Referring Provider: TANYA LOZANO [[id number]] Allergies As of Date: 07/18/2024 Noted Allergy Reaction PENICILLINS 07/24/2021 16 - Unknown SULFA (SULFONAMIDE ANTIBIOTICS) 07/24/2021 16 - Unknown TETRACYCLINES 07/24/2021 16 - Unknown Date Reviewed: 10/06/2023 Reviewed by: Tanya Lozano, STREET ROLLER ENGINEER.[employer]LE[employer]LETE - Fully Assessed Reason for Visit: Coumadin/INR [1207] Primary Visit Diagnosis:Paroxysmal atrial fibrillation (HCC) [I48.0] Order(s):INR (POC) [1864051] Order #: [id number] #:[id number] INR (POC) [2483055] Order #: [id number] Prescriptions as of 07/18/2024 - carvedilol (COREG) 12.5 mg tablet Take 2 tablets by mouth two times a day. TAKE WITH FOOD. - oxybutynin XL (DITROPAN XL) 5 mg 24 hr tablet Take 1 tablet by mouth once daily. - pantoprazole DR (PROTONIX) 40 mg tablet Take 1 tablet by mouth once daily. - losartan (COZAAR) 100 mg tablet Take 1 tablet by mouth once daily. - levothyroxine (SYNTHROID) 75 mcg tablet TAKE 1 TABLET BY MOUTH IN THE MORNING ON AN EMPTY STOMACH - warfarin (COUMADIN) 3 mg tablet take 1 tablet by mouth daily as directed - warfarin (COUMADIN) 2 mg tablet Take 1 tablet by mouth daily as directed. - warfarin (COUMADIN) 4 mg tablet Take 1 tablet by mouth once daily. - hyoscyamine sublingual (LEVSIN SL) 0.125 mg TAKE 1 TABLET UNDER THE TONGUE EVERY 6 HOURS NEEDED - polyethylene glycol 3350 (MIRALAX, GLYCOLAX) 17 gram packet Take 17 g by mouth once daily. Dissolve dose in 4 - 8 ounces of liquid and take as directed. - Cholecalciferol, Vitamin D3, 50 mcg (2,000 unit) cap Take by mouth once daily. 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] 08/25/2021 Syncope [R55] 09/07/2023 09/08/2023 Syncope and collapse [R55] 09/07/2023 09/08/2023 Chronic diastolic CHF (congestive heart failure*09/08/2023 Encounter Status:Closed by CORRINE BIRMINGHAM on 07/18/24 Normal [facility] INR (POC)on 07-18-2024 INR Coag (PPP) [Relative time] 2.3 {INR} High 0.8 - 1.2 [facility] Internal Quality Check Acceptable [facility] Interpretation and review of laboratory results Abnormal [facility] Location:[facility], [address] [place] [address], [id number] [facility] POINT OF CARE [facility] INR (POC)on 05-07-2024 INR Coag (PPP) [Relative time] 2.3 {INR} High 0.8 - 1.2 [facility] Internal Quality Check Acceptable [facility] Interpretation and review of laboratory results Abnormal [facility] Location:[facility], [address] [place] [address], [id number] [facility] POINT OF CARE [facility] INR (POC)on 04-23-2024 INR Coag (PPP) [Relative time] 1.9 {INR} High 0.8 - 1.2 [facility] Internal Quality Check Acceptable [facility] Interpretation and review of laboratory results Abnormal [facility] Location:[facility], [address] [place] [address], [address] [facility] POINT OF CARE [facility] INR (POC)on 03-26-2024 INR Coag (PPP) [Relative time] 1.9 {INR} High 0.8 - 1.2 [facility] Internal Quality Check Acceptable [facility] Interpretation and review of laboratory results Abnormal [facility] Location:[facility], [address] [place] [address], [id number] [facility] POINT OF CARE [facility] PT panel Coag (PPP)on 2023 INR Coag (PPP) [Relative time] 2.0 {INR} High 0.9 - 1.3 [facility] PT Coag (PPP) [Time] 20.3 s High 9.7 - 1 3.0 sec [facility] INR (POC)on 12-07-2023 INR Coag (PPP) [Relative time] 1.9 {INR} High 0.8 - 1.2 [facility] Internal Quality Check Acceptable [facility] INR (POC)on 11-30-2023 INR Coag (PPP) [Relative time] 1.9 {INR} High 0.8 - 1.2 [facility] Internal Quality Check Acceptable [facility] INR (POC)on 11-01-2023 INR Coag (PPP) [Relative time] 2.1 {INR} High 0.8 - 1.2 [facility] Internal Quality Check Acceptable [facility] Office-Progress Notes-Pr sariahn 10-03-2023 Amb Office-Progress Notes-Provider DANNY LIEBERMANA :1935 Registration Date:09/29/2023 Chief Complaint FOLLOW UP [facility] History of Present Illness This is a follow-up visit for Mrs. Lieberman after recent admission to [facility] following a syncopal spell. She has paroxysmal atrial fibrillation moderate mitral incompetence hypertension history of remote TIA hyperlipidemia and her ejection fraction is normal and she does not have any PFO. Patient had Zio patch and we are waiting for the results.She denies any history of any palpitations lightheadedness dizziness. She had a stress test a long time ago. She has no chest pain jaw pain shoulder pain. No orthopnea nocturnal dyspnea. She seems to be under stress taking care of her . Her blood pressure is stable at 121/72. Her INR has been fluctuating lately now I told her to take 2 mg 5 days a week and 3 mg and she does not and she will get back here in 1 week. She had nose bleed couple of times. Physical Exam Vitals & Measurements Systolic Blood Pressure: 121 mmHg (09/29/23 05:43:00) Systolic Blood Pressure: 122 mmHg (09/29/23 05:41:00) Diastolic Blood Pressure: 72 mmHg (09/29/23 05:43:00) Diastolic Blood Pressure: 82 mmHg (09/29/23 05:41:00) Temperature Temporal (F): 97.6 degF (09/29/23 08:07:00) Apical Heart Rate: 64 bpm (09/29/23 08:07:00) Height/Length Measured: 157 cm (09/29/23 08:07:00) Weight Measured: 56 kg (09/29/23 08:07:00) Body Mass Index Measured: 22.72 kg/m2 (09/29/23 08:07:00) Weight Measured - lbs2: 123 lb (09/29/23 08:07:00) Height/Length Measured - in2: 62 in (09/29/23 08:07:00) Body Mass Index Measured English2: 22.49 kg/m2 (09/29/23 08:07:00) BSA: 1.56 m2 (09/29/23 08:07:00) Ht/Wt Measurement Refused by Patient?2: No (09/29/23 08:07:00) Depression Screening Scores Initial Depression Screen Score: 0 (09/29/23 08:07:00) Fall Risk Assessment Is the patient ambulatory (mobile): Yes (09/29/23 08:07:00) Have you had a fall within the past: No (09/29/23 08:07:00) Have you had 2 or more falls in the past: No (09/29/23 08:07:00) NECK: JVP is not elevated: Good carotid pulses and no bruit CVS; Normal heart sounds. No murmur and no gallop. No rub LUNGS: No rhonchi and no wheeze: Clear breath sounds ADOMEN: Benign EXTREMITIES: Good distal pulses. No edema of legs Medication Reconciliation What How Much When Instructions New acetaminophen (acetaminophen 500 mg oral tablet) Oral 1000 Unknown, 0 Refill(s) New acetaminophen-oxycodone (acetaminophen-oxycodon e 325 mg-5 mg oral tablet = Percocet) Oral 1 Unknown, 0 Refill(s) New alendronate (alendronate 70 mg oral tablet) 12 EA, 0 Refill(s), Take 1 tablet by mouth one time a week. In am with glass of water, on a empty stomach, nothing by mouth or lying down for 60 minutes New ALPRAZolam (ALPRAZolam 0.25 mg oral tablet, disintegrating) Oral 0.25 Unknown, 0 Refill(s) Unchanged aspirin (Aspir-Low 81 mg oral delayed release tablet) 1 Tabs Oral DAILY Unchanged carvedilol (carvedilol 12.5 mg oral tablet) 1 Tabs Oral TWICE A DAY Unchanged carvedilol (carvedilol 25 mg oral tablet) 1 Tabs Oral TWICE A DAY Unchanged cholecalciferol (cholecalciferol 50 mcg (2000 intl units) oral tablet) Oral DAILY Unchanged hyoscyamine (hyoscyamine 0.125 mg/ mL oral solution) 1 Milliliter Oral EVERY FOUR HOURS as needed for for spasm Unchanged levothyroxine (levothyroxine 75 mcg (0.075 mg) oral tablet) 1 Tabs Oral DAILY Unchanged losartan (losartan 100 mg oral tablet) Oral DAILY Unchanged oxyBUTYnin (oxybutynin 5 mg oral tablet = Ditropan) Oral THREE TIMES A DAY Unchanged pantoprazole (pantoprazole 40 mg oral delayed release tablet) Oral DAILY Unchanged polyethylene glycol 3350 Oral DAILY Unchanged warfarin = Jantoven, Coumadin (warfarin 2 mg oral tablet) Oral DAILY Unchanged warfarin = Jantoven, Coumadin (warfarin 3 mg oral tablet) Oral DAILY Unchanged warfarin = Jantoven, Coumadin (warfarin 4 mg oral tablet) Oral DAILY Assessment/Plan This Visit Diagnosis 1. PAF (paroxysmal atrial fibrillation) I48.0 2. HTN (hypertension) I10 3. TIA on medication G45.9 4. Mitral incompetence I34.0 5. Syncope R55 6. HLD (hyperlipidemia) E78.5 7. Would await for Zio results and follow her accordingly 8.Continue current medications and follow up in six months Problem List/Past Medical History Ongoing HLD (hyperlipidemia) HTN (hypertension) Mitral incompetence PAF (paroxysmal atrial fibrillation) Syncope TIA on medication Procedure/Surgical History No qualifying data available. Allergies penicillin sulfa drugs tetracyclines Social History Alcohol - Denies Alcohol Use Tobacco - Denies Tobacco Use Care Team Primary Care Physician TANYA LOZANO [phone] Attending Physician DIDI ZAMAN, CHRISTINA [phone] [facility] Ambulatory Vitals Height Humberto ght-Texton 10-03-2023 Ambulatory Vitals Height Weight-Text Ambulatory Vitals Height Weight Entered On: 10/03/2023 5:44 EST Performed On: 09/29/2023 5:43 EST by CHRISTINA FRANCIS MD Vitals/Ht/Wt Systolic Blood Pressure : 121 mmHg Diastolic Blood Pressure : 72 mmHg CHRISTINA FRANCIS MD - 10/03/2023 5:43 EST [facility] Ambulatory Vitals Height Weight-Text Ambulatory Vitals Height Weight Entered On: 10/03/2023 5:41 EST Performed On: 09/29/2023 5:41 EST by CHRISTINA FRANCIS MD Vitals/Ht/Wt Systolic Blood Pressure : 122 mmHg Diastolic Blood Pressure : 82 mmHg CHRISTINA FRANCIS MD - 10/03/2023 5:41 EST [facility] Provider Letter - Ambulatory on 10-03-2023 Provider Letter - Ambulatory TANYA LOZANO, [address] [place] [id number] RE: HELEN LIEBERMAN - 1935 09/29/2023 Dear TANYA LOZANO This document is confidential and intended solely for the use of the individual or entity to which they are addressed. If you are not the named addressee, please disregard and do not disseminate, distribute or copy this information. If you are not the intended recipient you are notified that any disclosure of this information and its contents are strictly prohibited. If you have any questions about this document, please contact the office. Sincerely, Bob ABRAHAM, [facility] The following document(s) were included in the letter: September 29, 2023 05:47:00 EST - (09/29/2023) *.AMB Office Visit Note [facility] Ambulatory Clinical Summaryo n 09-29-2023 Ambulatory Clinical Summary HELEN LIEBERMAN :1935 Registration Date:09/29/2023 Ambulatory Visit Instructions Your Care Team Attending Physician - DIDI ZAMAN, CHRISTINA Primary Care Physician - TANYA LOZANO Discharge Vitals Temperature (Temporal Artery) 97.6 DEGF Heart Rate (Apical) 64 Height 61.81 in (157 cm) Weight 123.48 lb (56 kg) BMI 22.72 Temperature Temporal (F): 97.6 degF (09/29/23 08:07:00) Apical Heart Rate: 64 bpm (09/29/23 08:07:00) Height/Length Measured: 157 cm (09/29/23 08:07:00) Weight Measured: 56 kg (09/29/23 08:07:00) Body Mass Index Measured: 22.72 kg/m2 (09/29/23 08:07:00) Weight Measured - lbs2: 123 lb (09/29/23 08:07:00) Height/Length Measured - in2: 62 in (09/29/23 08:07:00) Body Mass Index Measured English2: 22.49 kg/m2 (09/29/23 08:07:00) BSA: 1.56 m2 (09/29/23 08:07:00) Ht/Wt Measurement Refused by Patient?2: No (09/29/23 08:07:00) What to do next Scheduled Follow-Up Appointments Appointment Type Reason for visit Day With Date Time Where [facility] Established Patient 1 6 MONTH CHECK UP Christina Francis MD April 05, 2024 09:00 am EDT CARD [facility] [address] [facility] [address] [place] ZIP:[id number] Medications What How Much When Instructions New acetaminophen (acetaminophen 500 mg oral tablet) Oral 1000 Unknown, 0 Refill(s) New acetaminophen-oxycodone (acetaminophen-oxycodon e 325 mg-5 mg oral tablet = Percocet) Oral 1 Unknown, 0 Refill(s) New alendronate (alendronate 70 mg oral tablet) 12 EA, 0 Refill(s), Take 1 tablet by mouth one time a week. In am with glass of water, on a empty stomach, nothing by mouth or lying down for 60 minutes New ALPRAZolam (ALPRAZolam 0.25 mg oral tablet, disintegrating) Oral 0.25 Unknown, 0 Refill(s) Unchanged aspirin (Aspir-Low 81 mg oral delayed release tablet) 1 Tabs Oral DAILY Unchanged carvedilol (carvedilol 12.5 mg oral tablet) 1 Tabs Oral TWICE A DAY Unchanged carvedilol (carvedilol 25 mg oral tablet) 1 Tabs Oral TWICE A DAY Unchanged cholecalciferol (cholecalciferol 50 mcg (2000 intl units) oral tablet) Oral DAILY Unchanged hyoscyamine (hyoscyamine 0.125 mg/ mL oral solution) 1 Milliliter Oral EVERY FOUR HOURS as needed for for spasm Unchanged levothyroxine (levothyroxine 75 mcg (0.075 mg) oral tablet) 1 Tabs Oral DAILY Unchanged losartan (losartan 100 mg oral tablet) Oral DAILY Unchanged oxyBUTYnin (oxybutynin 5 mg oral tablet = Ditropan) Oral THREE TIMES A DAY Unchanged pantoprazole (pantoprazole 40 mg oral delayed release tablet) Oral DAILY Unchanged polyethylene glycol 3350 Oral DAILY Unchanged warfarin = Jantoven, Coumadin (warfarin 2 mg oral tablet) Oral DAILY Unchanged warfarin = Jantoven, Coumadin (warfarin 3 mg oral tablet) Oral DAILY Unchanged warfarin = Jantoven, Coumadin (warfarin 4 mg oral tablet) Oral DAILY Allergies penicillin sulfa drugs tetracyclines Common Emergency Awareness Tips IS IT A STROKE? Act FAST and Check for these signs: FACE Does the face look uneven? ARM Does one arm drift down? SPEECH Does their speech sound strange? TIME Call at any sign of stroke Heart Attack Signs Chest discomfort: Most heart attacks involve discomfort in the center of the chest and lasts more than a few minutes, or goes away and comes back. It can feel like uncomfortable pressure, squeezing, fullness or pain. Discomfort in upper body: Symptoms can include pain or discomfort in one or both arms, back, neck, jaw or stomach. Shortness of breath: With or without discomfort. Other signs: Breaking out in a cold sweat, nausea, or lightheaded. Remember, MINUTES DO MATTER. If you experience any of these heart attack warning signs, call 9-1-1 to get immediate medical attention! [facility] Comprehensive Intake - Texto n 09-29-2023 Comprehensive Intake - Text Comprehensive Intake Entered On: 09/29/2023 8:09 EST Performed On: 09/29/2023 8:07 EST by Xena Rojas MA Summary Chief Complaint : FOLLOW UP [facility] Bladder Control Issues? : No Urine Leakage? : No Presence or absence of urinary incontinence assessed : Yes CPT-II Medication list doc'd in medical record : Yes Influenza immunization administered or previously received : No Pneumococcal vaccine administered or previously received : No Xena Rojas MA - 09/29/2023 8:07 EST Measurements Ht/Wt Measurement Refused by Patient? : No Weight Measured : 56 kg(Converted to: 123 lb 7 oz, 123.459 lb) Height/Length Measured : 157 cm(Converted to: 5 ft 2 in, 61.81 in) Body Mass Index Measured : 22.72 kg/m2 Body Mass Index documented : Yes Weight Measured - lbs : 123 lb(Converted to: 123 lb 0 oz, 56 kg) Height/Length Measured - in : 62 in(Converted to: 5 ft 2 in, 157 cm) Body Mass Index Measured Bolivian : 22.49 kg/m2 BSA Bolivian : 1.56 m2 Xena Rojas MA - 09/29/2023 8:07 EST Vitals Require BP : No Apical Heart Rate : 64 bpm Temperature Temporal (F) : 97.6 degF(Converted to: 36 degC) Pain Present : No actual or suspected pain Pain : 0 Pain severity quantified : No pain present Xena Rojas MA - 09/29/2023 8:07 EST Infection Screening - Ambulatory Exposure AND/OR close contact with a person under investigation or laboratory-confirmed COVID-19 individual within 14 days of symptom onset AND/OR any of the following: : No Do you live/work in a high risk situation (congregated living, hemodialysis, infusion clinic, mcfp, assisted living, care home, homeless snf, etc.)? : No Xena Rjoas MA - 09/29/2023 8:07 EST Depression Screening Is patient currently : None of the Below Feeling Down, Depressed, Hopeless : Not at all Little Interest - Pleasure in Activities : Not at all Initial Depression Screen Score : 0 Depression Screening Score 0 : No Xena Rojas MA - 09/29/2023 8:07 EST Problems (As Of: 09/29/2023 08:09:03 EST) Social History Social History (As Of: 09/29/2023 08:09:04 EST) Alcohol: Denies Alcohol Use (Last Updated: 09/29/2023 08:08:53 EST by Xena Rojas MA ) Tobacco: Denies Tobacco Use (Last Updated: 09/29/2023 08:08:49 EST by Xena Rojas MA ) Falls Risk Assessment Is the patient ambulatory (mobile) : Yes Have you had 2 or more falls in the past year : No Have you had a fall within the past year that has caused an injury : No Patient screen for fall risk : no falls in last year OR 1 fall with no injury in last year Xena Rojas MA - 09/29/2023 8:07 EST [facility] INR (POC)on 07-19-2023 INR Coag (PPP) [Relative time] 2.3 {INR} High 0.8 - 1.2 [facility] Internal Quality Check Acceptable [facility] INR (POC)on 07-11-2023 INR Coag (PPP) [Relative time] 3.8 {INR} High 0.8 - 1.2 [facility] Internal Quality Check Acceptable [facility] INR (POC)on 06-15-2023 INR Coag (PPP) [Relative time] 2.5 {INR} High 0.8 - 1.2 [facility] Internal Quality Check Acceptable [facility] INR (POC)on 06-08-2023 INR Coag (PPP) [Relative time] 3.4 {INR} High 0.8 - 1.2 [facility] Internal Quality Check Acceptable [facility] INR (POC)on 05-05-2023 INR Coag (PPP) [Relative time] 2.9 {INR} High 0.8 - 1.2 [facility] Internal Quality Check Acceptable [facility] INR (POC)on 02-02-2023 INR Coag (PPP) [Relative time] 2.8 {INR} High 0.8 - 1.2 [facility] Internal Quality Check Acceptable [facility] INR (POC)on 01-03-2023 INR Coag (PPP) [Relative time] 2.4 {INR} High 0.8 - 1.2 [facility] Internal Quality Check Acceptable [facility] INR (POC)on 11-04-2022 INR Coag (PPP) [Relative time] 2.3 {INR} High 0.8 - 1.2 [facility] Internal Quality Check Acceptable [facility] INR (POC)on 09-13-2022 INR Coag (PPP) [Relative time] 3.1 {INR} High 0.8 - 1.2 [facility] Internal Quality [facility] (POC)on 08-12-2022 INR Coag (PPP) [Relative time] 3.0 {INR} High 0.8 - 1.2 [facility] Internal Quality Check Acceptable [facility] INR (POC)on 07-15-2022 INR Coag (PPP) [Relative time] 2.8 {INR} High 0.8 - 1.2 [facility] Internal Quality Check Acceptable [facility] INR (POC)on 06-03-2022 INR Coag (PPP) [Relative time] 2.9 {INR} High 0.8 - 1.2 [facility] Internal Quality Check Acceptable [facility] INR (POC)on 04-19-2022 INR Coag (PPP) [Relative time] 2.9 {INR} High 0.8 - 1.2 [facility] Internal Quality Check Acceptable [facility] INR (POC)on 03-18-2022 INR Coag (PPP) [Relative time] 2.3 {INR} High 0.8 - 1.2 [facility] Internal Quality Check Acceptable [facility] INR (POC)on 03-04-2022 INR Coag (PPP) [Relative time] 2.3 {INR} High 0.8 - 1.2 [facility] Internal Quality Check Acceptable [facility] INR (POC)on 03-01-2022 INR Coag (PPP) [Relative time] 3.7 {INR} High 0.8 - 1.2 [facility] Internal Quality Check Acceptable [facility] INR (POC)on 02-23-2022 INR Coag (PPP) [Relative time] 1.7 {INR} High 0.8 - 1.2 [facility] Internal Quality Check Acceptable [facility] INR (POC)on 02-16-2022 INR Coag (PPP) [Relative time] 1.7 {INR} High 0.8 - 1.2 [facility] Internal Quality Check Acceptable [facility] CBC panel Auto (Bld)on 01-13 Erythrocyte distribution width (RBC) [Ratio] 12.3 % 11.5 - 15.0 % [facility] Hematocrit (Bld) [Volume fraction] 39.8 % 36.0 - 46.0 % [facility] Hemoglobin (Bld) [Mass/Vol] 13.1 g/dL 11.5 - 15.5 g/dL [facility] MCH (RBC) [Entitic mass] 32.2 pg 26.0 - 34.0 pg [facility] MCHC (RBC) [Mass/Vol] 32.9 g/dL 30.5 - 36.0 g/dL [facility] MCV (RBC) [Entitic vol] 97.8 fL 80.0 - 100.0 fL [facility] Platelet mean volume (Bld) [Entitic vol] 8.9 fL Low 9.0 - 12.7 fL [facility] Platelets (Bld) [#/Vol] 347 10*3/uL 150 - 400 k/uL [facility] RBC (Bld) [#/Vol] 4.07 10*6/uL 3.90 - 5.2 0 m/uL [facility] WBC (Bld) [#/Vol] 8.39 10*3/uL 3.70 - 11. 00 k/uL [facility] INR (POC)on 01-13-2022 INR Coag (PPP) [Relative time] 2.7 {INR} High 0.8 - 1.2 [facility] Internal Quality Check Acceptable [facility] LIPID PANEL BASICon 04-20-20 22 Cholesterol [Mass/Vol] 228 mg/dL High <200 mg/dL [facility] Cholesterol in HDL [Mass/Vol] 37 mg/dL Low >39 mg/dL [facility] Cholesterol in LDL [Mass/Vol] 161 mg/dL High <100 mg/dL [facility] Cholesterol in LDL/Cholesterol in HDL [Mass ratio] 4.35 {ratio} High <2.54 [facility] Cholesterol in VLDL [Mass/Vol] 30 mg/dL High <30 mg/dL [facility] Cholesterol non HDL [Mass/Vol] 191 mg/dL High <130 mg/dL [facility] Cholesterol.total/Jhoana sterol in HDL [Mass ratio] 6.16 {ratio} High <5.10 [facility] Fasting Time 12 hrs [facility] Triglyceride [Mass/Vol] 149 mg/dL <150 mg/dL [facility] TSH Don 01-13-2022 TSH Qn 1.640 m[IU]/L 0.270 - 4.200 mIU/L [facility] INR (POC)on 12-17-2021 INR Coag (PPP) [Relative time] 2.3 {INR} High 0.8 - 1.2 [facility] Internal Quality Check Acceptable [facility] ANES POSTPROC EVALon 021 ANES POSTPROC EVAL HNO ID: [id number] Author: Han German MD Service: Anesthesiology Author Type: Anesthesiologist Type: Anesthesia Postprocedure Evaluation Filed: 08/07/2021 9:10 PM Note Text: POST ANESTHESIA EVALUATION NOTE : 1935 Procedure Summary Date: 08/07/21 Room / Location: GI03 / GI Anesthesia Start: 1337 Anesthesia Stop: 1543 Procedure: ERCP W/ PLACEMENT ENDOSCOPIC STENT, BILIARY OR PANCREATIC DUCT, INCLUDING PRE- AND POST-DILATION AND GUIDE WIRE PASSAGE, WHEN PERFORMED, INCLUDING SPHINCTEROTOMY, WHEN PERFORMED, EACH STENT (N/A Abdomen) Diagnosis: Gallstone pancreatitis (Gallstone pancreatitis [K85.10]) Surgeons: Patricia Vazquez MD Responsible Provider: Han German MD Anesthesia Type: general ASA Status: 3 Anesthesia Type: general Last vitals Vitals Value Taken Time BP 182/76 08/07/21 1700 Temp 36.2 ?C (97.2 ?F) 08/07/21 1545 Pulse 58 08/07/21 1710 Resp 22 08/07/21 1710 SpO2 100 % 08/07/21 171 Vitals shown include unvalidated device data. Post Anesthesia Patient Status Patient Evaluation: PACU. PACU/ICU Patient Condition: stable. Anticipated Disposition: phase 2 then home. Neurological Status: aware and responsive. Pulmonary Status: breathing comfortably on room air Airway Control: returned to baseline unsupported. Cardiovascular Status: stable. Pain Management: clinically adequate - multimodal analgesia pain management approach Postoperative Hydration: acceptable. Intraoperative Events: no significant anesthesia events Recommendation: continue current plan of care. Anesthesia Observations No Documentation SIGNATURE: Han German MD PATIENT NAME: Helen Lieberman DATE: August 07, 2021 TIME: 9:10 PM CSN: [id number] [facility] ANES PRE-OPon 08-07-2021 ANES PRE-OP HNO ID: [id number] Author: Nara Hernandez APRN.CRNA Service: Anesthesiology Author Type: Nurse Investigator Vice Type: Anesthesia Preprocedure Evaluation Filed: 08/07/2021 1:15 PM Note Text: Attestation signed by Ruslan Sandoval MD at 08/07/2021 1:26 PM I have personally interviewed and examined the patient and agree with the anesthesia assessment and plan, as documented by the RELOCATION SPECIALIST. ANESTHESIOLOGY DAY OF SURGERY NOTE : 1935 Procedure(s) (LRB): ERCP (N/A) Surgeon(s): Patricia Vazquez MD Estimated body mass index is 21.95 kg/m? as calculated from the following: Height as of 07/29/21: 157.5 cm (5' 2). Weight as of 07/29/21: 54.4 kg (120 lb). Most recent hematocrit and potassium results: No results found for this basename: HCT,HEMATOCRIT,K,POTASS IUM Relevant Problems CARDIO (+) Atrial fibrillation (HCC) (+) Essential hypertension, benign ENDO (+) Hypothyroidism I - PHYSICAL EVALUATION AIRWAY Patient intubated: No. Tracheostomy tube not present Mallampati: II. TM distance: >3 FB. Neck ROM: limited extension. Mouth opening: adequate. Short neck: no. Thick neck: no DENTAL Dental findings: edentulous. Additional exam findings: yes. CARDIOVASCULAR Additional comments: afib. Other findings: Symptoms of Sleep Apnea: Denies Previous Anesthesia: No history of adverse event Family history of anesthetic problems: None Functional Capacity Assessment:Denies chest pain and SOB with exertion. History of GERD: Yes- Well controlled with no positional symptoms Most recent lab results: No results found for this basename: Hb,HCT,K,Plt,PTSEC,APTT ,INR,Creat,hcg,uhcg . II - ANESTHESIA PLAN ASA Score: 3 Anesthetic Plan: general Airway type: ETT The patient is not a current smoker. NPO Status: adequate Administration of chronic beta doug medication not planned. Monitoring plan: standard ASA. Postoperative analgesic plan: parenteral or oral opioids and multimodal analgesia. Anesthetic Risks, Benefits, Alternatives, Personnel Discussed. Consent obtained from: patient.Patient / Surrogate agrees to blood products: Yes Significant changes in the patient condition since the History and Physical, not otherwise documented in primary service progress note: no. Potential Anesthesia issues that may suggest increased risk of complications or contraindication to planned procedure: none. No vitals data found for the desired time range. No current facility-administered medications on file as of 08/07/2021. Outpatient Medications as of 08/07/2021 Medication Sig - propranolol HCl (PROPRANOLOL ORAL) Take 20 mg by mouth twice daily. - amLODIPine (NORVASC) 2.5 mg tablet Take 2.5 mg by mouth once daily. - aspirin 81 mg cap Take by mouth. - levothyroxine (SYNTHROID) 75 mcg tablet Take 75 mcg by mouth daily before breakfast. - losartan (COZAAR) 100 mg tablet Take 100 mg by mouth once daily. - oxybutynin XL (DITROPAN XL) 5 mg 24 hr tablet Take 5 mg by mouth once daily. - pantoprazole DR (PROTONIX) 40 mg tablet Take 40 mg by mouth once daily. - polyethylene glycol 3350 (MIRALAX, GLYCOLAX) 17 gram packet Take 17 g by mouth once daily. Dissolve dose in 4 - 8 ounces of liquid and take as directed. - Cholecalciferol, Vitamin D3, (VITAMIN D-3) 50 mcg (2,000 unit) cap Take by mouth once daily. I have interviewed and examined the patient. I have reviewed the medical record and/or the pre-anesthesia evaluation, pertinent labs, and test results. This contains updated information obtained within 48 hours of Surgery/Procedure. SIGNATURE: Nara Hernandez APRN.CRNA PATIENT NAME: Helen Lieberman DATE: August 07, 2021 TIME: 1:11 PM CSN: [id number] [facility] NURSING PROGon 08-07-2021 NURSING PROG HNO ID: [id number] Author: Arvin Arriaga RN Service: ? Author Type: Registered Nurse Type: Nursing Progress Note Filed: 08/07/2021 4:02 PM Note Text: PATIENT EDUCATION TOPIC: PROCEDURE / SURGERY: Post Procedure Teaching: ERCP PATIENT NAME: Helen Lieberman PATIENT LOCATION: [facility] ENDO POOL/[facility] ENDO POOL READINESS TO LEARN COGNITIVE ABILITY: Alert and oriented MOTIVATION TO LEARN: Interested FAMILY SUPPORT: High - Very involved in pt care INSTRUCTION PROVIDED TO: Patient PATIENT LEARNS BEST BY: Verbal Instruction FACTORS AFFECTING LEARNING: None PHYSICAL LIMITATIONS AFFECTING LEARNING: None LEARNING RESPONSE DIAGNOSIS: ADULT: Biliary stenosis, PD stent PATIENT/FAMILY RESPONSE: Verbalizes understanding of: POST-PROCEDURE INSTRUCTIONS-Correct actions to take to reduce post procedure complications METHOD OF INSTRUCTION: Verbal instruction FOLLOW-UP PLAN: Complete - No need for follow-up INSTRUCTIONAL AIDS USED: NA SUPPLEMENTAL MATERIAL PROVIDED TO PATIENT: None REFERRAL (RECOMMENDATION): None Electronically Signed By: Arvin Arriaga [facility] NURSING PROG HNO ID: [id number] Author: Dulce Titus RN Service: ? Author Type: Registered Nurse Type: Nursing Progress Note Filed: 08/07/2021 1:31 PM Note Text: PATIENT EDUCATION TOPIC: PROCEDURE / SURGERY: Procedure/Surgery: ERCP PATIENT NAME: Helen Lieberman PATIENT LOCATION: [facility] ENDO POOL/[facility] ENDO POOL READINESS TO LEARN COGNITIVE ABILITY: Alert and oriented MOTIVATION TO LEARN: Interested FAMILY SUPPORT: High - Very involved in pt care INSTRUCTION PROVIDED TO: Patient PATIENT LEARNS BEST BY: Individual Instruction FACTORS AFFECTING LEARNING: None PHYSICAL LIMITATIONS AFFECTING LEARNING: Limited Mobility and Sensory Deficit Sight: Corrective lenses LEARNING RESPONSE DIAGNOSIS: ADULT: Gallstone pancreatitis PATIENT/FAMILY RESPONSE: Verbalizes understanding of: PATIENT SAFETY PRINCIPLES METHOD OF INSTRUCTION: Individual instruction FOLLOW-UP PLAN: Complete - No need for follow-up INSTRUCTIONAL AIDS USED: NA SUPPLEMENTAL MATERIAL PROVIDED TO PATIENT: None REFERRAL (RECOMMENDATION): None Electronically Signed By: Dulce Titus [facility] XR ERCP READ ONLYon 08-07-20 XR ERCP READ ONLY * * *Final Report* * * DATE OF EXAM: Aug 07 2021 3:35PM [facility]VO [id number] - XR ERCP READ ONLY / PROCEDURE REASON: ABDOMINAL PAIN/ERCP * * * * Physician Interpretation * * * * XR ERCP READ ONLY HISTORY: ABDOMINAL PAIN/ERCP TECHNIQUE: Fluoroscopic spot film/films was/were provided for the surgery service Fluoroscopic Radiation Summary: Plane A, Air Kerma: 96.1 mGy Dose Area Product (DAP): Fluoro time: 9:07 min:sec RESULT: Fluoroscopic images demonstrate cannulation of the pancreatic duct with stent placement. IMPRESSION: Fluoroscopic assistance provided for surgery/procedure. Please see operative report for further details. 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: PSCB Transcribe Date/Time: Aug 07 2021 4:36P Dictated by : MAYITO BURGESS MD This examination was interpreted and the report reviewed and electronically signed by: MAYITO BURGESS MD on Aug 07 2021 4:37PM EST [id number] [facility] Amylaseon 08-03-2021 Amylase [Catalytic activity/Vol] 66 U/L Normal 30-130 [facility] Comment on above: Performed By: #### A MY3, CMP3, HEMDF, LIPA4 #### [facility] [address] [place] [address] Amylase [Catalytic activity/Vol] 66 U/L 30 - 130 U/L [facility] CBC Auto Differentialon 11-0 -2020 Absolute Baso # 0.0 10*3/uL 0.0 - 0.2 10*3/uL [facility] Absolute Neut # 3.1 10*3/uL 1.8 - 7.0 10*3/uL [facility] Basophils/100 WBC (Bld) 0.5 % 0.0 - 2.0 % [facility] Eosinophils (Bld) [#/Vol] 0.1 10*3/uL 0.0 - 0.5 10*3/uL [facility] Eosinophils/100 WBC (Bld) 2.4 % 1.0 - 6.0 % [facility] Granulocytes/100 WBC (Bld) 61.6 % 40.0 - 80.0 % [facility] Hematocrit (Bld) [Volume fraction] 37.5 % 35.0 - 47.0 % [facility] Hemoglobin.gastrointest inal spec 1 Ql (Stl) 12.7 g/dL 11.7 - 16.0 g/dL [facility] Interpretation and review of laboratory results Abnormal [facility] Lymphocytes (Bld) [#/Vol] 1.2 10*3/uL 1.0 - 4.3 10*3/uL [facility] Lymphocytes/100 WBC (Bld) 24.6 % 20.0 - 40.0 % [facility] MCH (RBC) [Entitic mass] 31.2 pg 26.0 - 34.0 pg [facility] MCHC (RBC) [Mass/Vol] 33.8 % 32.0 - 36.0 % [facility] MCV (RBC) [Entitic vol] 92.3 fL 79.0 - 98.0 fL [facility] Monocytes (Bld) [#/Vol] 0.5 10*3/uL 0.0 - 0.8 10*3/uL [facility] Monocytes/100 WBC (Bld) 10.9 % High 2.0 - 10.0 % [facility] Platelet distribution width (Bld) [Ratio] 14.4 % 11.5 - 14.5 % [facility] Platelet mean volume (Bld) [Entitic vol] 6.8 fL Low 7.4 - 10.4 fL [facility] Platelets (Bld) [#/Vol] 351 10*3/uL 140 - 440 10*3/uL [facility] RBC (Bld) [#/Vol] 4.06 10*6/uL 3.80 - 5.2 0 10*6/uL [facility] WBC (Bld) [#/Vol] 5.0 10*3/uL 3.6 - 10.7 10*3/uL [facility] Test Performed by [facility], [address] , [place], [place] [id number] [place] [address] LAB [facility] Comp Metabolic Panelon 08-03 ALP [Catalytic activity/Vol] 68 U/L Normal 38-126 [facility] Comment on above: Performed By: #### A MY3, CMP3, HEMDF, LIPA4 #### [facility] [address] [place] [address] ALT [Catalytic activity/Vol] 11 U/L Normal 0-34 [facility] Comment on above: Result Comment: The ALT test is performed by an updated assay method. Please note that the reference intervals have been changed and are now sex specific. Performed By: #### A MY3, CMP3, HEMDF, LIPA4 #### [facility] [address] [place] [address] AST [Catalytic activity/Vol] 28 U/L Normal 15-46 [facility] Comment on above: Performed By: #### A MY3, CMP3, HEMDF, LIPA4 #### [facility] [address] [place] [address] Calcium [Mass/Vol] 10.3 mg/dL Normal 8.4-10.4 [facility] Comment on above: Performed By: #### A MY3, CMP3, HEMDF, LIPA4 #### [facility] [address] [place] [address] Glucose [Mass/Vol] 110 mg/dL High 70-100 [facility] Comment on above: Performed By: #### A MY3, CMP3, HEMDF, LIPA4 #### [facility] [address] [place] [address] Anion gap [Moles/Vol] 3 mmol/L Normal 3-13 [facility] Comment on above: Performed By: #### A MY3, CMP3, HEMDF, LIPA4 #### [facility] [address] [place] [address] Bilirubin [Mass/Vol] 1.0 mg/dL Normal 0.2-1.3 [facility] Comment on above: Performed By: #### A MY3, CMP3, HEMDF, LIPA4 #### [facility] [address] [place] [address] CO2 [Moles/Vol] 31 mmol/L High 22-30 [facility] Comment on above: Performed By: #### A MY3, CMP3, HEMDF, LIPA4 #### [facility] [address] [place] [address] Creatinine [Mass/Vol] 0.74 mg/dL Normal 0.52-1.25 [facility] Comment on above: Performed By: #### A MY3, CMP3, HEMDF, LIPA4 #### [facility] [address] [place] [address] GFR/1.73 sq M.predicted among blacks MDRD (S/P/Bld) [Vol rate/Area] 85.7 mL/min/{1.73_m2} Normal >60 [facility] Comment on above: Performed By: #### A MY3, CMP3, HEMDF, LIPA4 #### [facility] [address] [place] [address] GFR/1.73 sq M.predicted among non-blacks MDRD (S/P/Bld) [Vol rate/Area] 74.0 mL/min/{1.73_m2} Normal >60 [facility] Comment on above: Result Comment: KDIG O guidelines provide the following GFR categories: Stage GFR(ml/min/1.73 m2) Terms G1 >=90 Normal or high G2 60-89 Mildly decreased* G3a 45-59 Mildly to moderately decreased G3b 30-44 Moderately to severely decreased G4 15-29 Severely decreased G5 <15 Kidney failure *Relative to young adult level. In the absence of evidence of kidney damage, neither GFR category G1 nor G2 fulfill the criteria for CKD. The CKD-EPI equation is validated in individuals 18 years of age and older. Currently the best equation for estimating glomerular filtration rate (GFR) from serum creatinine in children is the Bedside Lawson equation. It is less accurate in patients with extremes of muscle mass, restriction of dietary protein, ingestion of creatine, extra-renal metabolism of creatinine, or treatment with medications that affect renal tubular creatinine secretion. Performed By: #### A MY3, CMP3, HEMDF, LIPA4 #### [facility] [address] [place] [address] Protein [Mass/Vol] 7.2 g/dL Normal 6.3-8.2 [facility] Comment on above: Performed By: #### A MY3, CMP3, HEMDF, LIPA4 #### [facility] [address] [place] [address] Urea nitrogen [Mass/Vol] 9 mg/dL Normal 9-20 [facility] Comment on above: Performed By: #### A MY3, CMP3, HEMDF, LIPA4 #### [facility] [address] [place] [address] Potassium [Moles/Vol] 4.6 mmol/L Normal 3.5-5.1 [facility] Comment on above: Performed By: #### A MY3, CMP3, HEMDF, LIPA4 #### [facility] [address] [place] [address] Albumin [Mass/Vol] 4.2 g/dL Normal 3.5-5.0 [facility] Comment on above: Performed By: #### A MY3, CMP3, HEMDF, LIPA4 #### [facility] [address] [place] [address] Chloride [Moles/Vol] 100 mmol/L Normal 98-107 [facility] Comment on above: Performed By: #### A MY3, CMP3, HEMDF, LIPA4 #### [facility] [address] [place] [address] Sodium [Moles/Vol] 134 mmol/L Low 135-145 [facility] Comment on above: Performed By: #### A MY3, CMP3, HEMDF, LIPA4 #### [facility] [address] [place] [address] [facility] 08-03-2021 Albumin [Mass/Vol] 4.2 g/dL 3.5 - 5.0 g/dL [facility] ALP (Bld) [Catalytic activity/Vol] 68 U/L 38 - 126 U/L [facility] ALT [Catalytic activity/Vol] 11 U/L 0 - 34 U/L [facility] Comment on above: The ALT test is perf ormed by an updated assay method. Please note that the reference intervals have been changed and are now sex specific. Anion gap [Moles/Vol] 3 mmol/L 3 - 13 mmol/L [facility] AST [Catalytic activity/Vol] 28 U/L 15 - 46 U/L [facility] Bilirubin [Mass/Vol] 1.0 mg/dL 0.2 - 1 .3 mg/dL [facility] Calcium [Mass/Vol] 10.3 mg/dL 8.4 - 10. 4 mg/dL [facility] Chloride [Moles/Vol] 100 mmol/L 98 - 10 7 mmol/L [facility] CO2 [Moles/Vol] 31 mmol/L High 22 - 30 mmol/L [facility] Creatinine [Mass/Vol] 0.74 mg/dL 0.52 - 1.25 mg/dL [facility] EGFR IF NonAfrican Angolan 74.0 mL/min >60 [facility] Comment on above: KDIGO guidelines pro vide the following GFR categories: Stage GFR(ml/min/1.73 m2) Terms G1 >=90 Normal or high G2 60-89 Mildly decreased* G3a 45-59 Mildly to moderately decreased G3b 30-44 Moderately to severely decreased G4 15-29 Severely decreased G5 <15 Kidney failure *Relative to young adult level. In the absence of evidence of kidney damage, neither GFR category G1 nor G2 fulfill the criteria for CKD. The CKD-EPI equation is validated in individuals 18 years of age and older. Currently the best equation for estimating glomerular filtration rate (GFR) from serum creatinine in children is the Bedside Lawson equation. It is less accurate in patients with extremes of muscle mass, restriction of dietary protein, ingestion of creatine, extra-renal metabolism of creatinine, or treatment with medications that affect renal tubular creatinine secretion. Free PSA/Total PSA [Mass fraction] 7.2 g/dL 6.3 - 8.2 g/dL [facility] GFR/1.73 sq M.predicted among blacks MDRD (S/P/Bld) [Vol rate/Area] 85.7 mL/min/{1.73_m2} >60 [facility] Glucose [Mass/Vol] 110 mg/dL High 70 - 100 mg/dL [facility] Interpretation and review of laboratory results Abnormal [facility] Potassium [Moles/Vol] 4.6 mmol/L 3.5 - 5.1 mmol/L [facility] Sodium [Moles/Vol] 134 mmol/L Low 135 - 145 mmol/L [facility] Urea nitrogen (BldV) [Mass/Vol] 9 mg/dL 9 - 20 mg/dL [facility] Hemogram w/ Autodiffon 08-03 Abs Baso Cnt 0.0 10*3/uL Normal 0.0-0.2 [facility] Comment on above: Performed By: #### A MY3, CMP3, HEMDF, LIPA4 #### [facility] [address] [place] [address] Abs Neutrophile Cnt 3.1 10*3/uL Normal 1.8-7.0 [facility] Comment on above: Performed By: #### A MY3, CMP3, HEMDF, LIPA4 #### [facility] [address] [place] [address] Basophils/100 WBC (Bld) 0.5 % Normal 0.0-2.0 [facility] Comment on above: Performed By: #### A MY3, CMP3, HEMDF, LIPA4 #### [facility] [address] [place] [address] Eosinophils (Bld) [#/Vol] 0.1 10*3/uL Normal 0.0-0.5 [facility] Comment on above: Performed By: #### A MY3, CMP3, HEMDF, LIPA4 #### [facility] [address] [place] [address] Eosinophils/100 WBC (Bld) 2.4 % Normal 1.0-6.0 [facility] Comment on above: Performed By: #### A MY3, CMP3, HEMDF, LIPA4 #### [facility] [address] [place] [address] Erythrocyte distribution width (RBC) [Ratio] 14.4 % Normal 11.5-14.5 [facility] Comment on above: Performed By: #### A MY3, CMP3, HEMDF, LIPA4 #### [facility] [address] [place] [address] Granulocytes/100 WBC (Bld) 61.6 % Normal 40.0-80.0 [facility] Comment on above: Performed By: #### A MY3, CMP3, HEMDF, LIPA4 #### [facility] [address] [place] [address] Hematocrit (Bld) [Volume fraction] 37.5 % Normal 35.0-47.0 [facility] Comment on above: Performed By: #### A MY3, CMP3, HEMDF, LIPA4 #### [facility] [address] [place] [address] Hemoglobin (Bld) [Mass/Vol] 12.7 g/dL Normal 11.7-16.0 [facility] Comment on above: Performed By: #### A MY3, CMP3, HEMDF, LIPA4 #### [facility] [address] [place] [address] Lymphocytes (Bld) [#/Vol] 1.2 10*3/uL Normal 1.0-4.3 [facility] Comment on above: Performed By: #### A MY3, CMP3, HEMDF, LIPA4 #### [facility] [address] [place] [address] Lymphocytes/100 WBC (Bld) 24.6 % Normal 20.0-40.0 [facility] Comment on above: Performed By: #### A MY3, CMP3, HEMDF, LIPA4 #### [facility] [address] [place] [address] MCH (RBC) [Entitic mass] 31.2 pg Normal 26.0-34.0 [facility] Comment on above: Performed By: #### A MY3, CMP3, HEMDF, LIPA4 #### [facility] [address] [place] [address] MCHC 33.8 % Normal 32.0-36.0 [facility] Comment on above: Performed By: #### A MY3, CMP3, HEMDF, LIPA4 #### [facility] [address] [place] [address] MCV (RBC) [Entitic vol] 92.3 fL Normal 79.0-98.0 [facility] Comment on above: Performed By: #### A MY3, CMP3, HEMDF, LIPA4 #### [facility] [address] [place] [address] Monocytes (Bld) [#/Vol] 0.5 10*3/uL Normal 0.0-0.8 [facility] Comment on above: Performed By: #### A MY3, CMP3, HEMDF, LIPA4 #### [facility] [address] [place] [address] Monocytes/100 WBC (Bld) 10.9 % High 2.0-10.0 [facility] Comment on above: Performed By: #### A MY3, CMP3, HEMDF, LIPA4 #### [facility] [address] [place] [address] Platelet mean volume (Bld) [Entitic vol] 6.8 fL Low 7.4-10.4 [facility] Comment on above: Performed By: #### A MY3, CMP3, HEMDF, LIPA4 #### [facility] [address] [place] [address] Platelets (Bld) [#/Vol] 351 10*3/uL Normal 140-440 [facility] Comment on above: Performed By: #### A MY3, CMP3, HEMDF, LIPA4 #### [facility] [address] [place] [address] RBC (Bld) [#/Vol] 4.06 10*6/uL Normal 3.80-5.20 [facility] Comment on above: Performed By: #### A MY3, CMP3, HEMDF, LIPA4 #### [facility] [address] [place] [address] WBC (Bld) [#/Vol] 5.0 10*3/uL Normal 3.6-10.7 [facility] Comment on above: Performed By: #### A MY3, CMP3, HEMDF, LIPA4 #### [facility] [address] [place] [address] Lipaseon 08-03-2021 Lipase [Catalytic activity/Vol] 253 U/L Normal 23-300 [facility] Comment on above: Performed By: #### A MY3, CMP3, HEMDF, LIPA4 #### [facility] [address] [place] [address] Lipase [Catalytic activity/Vol] 253 U/L 23 - 300 U/L [facility] No Panel Informationon 08-03 Test Performed by [facility], [address] , [address] LAB [facility] Lipaseon 07-16-2021 Lipase [Catalytic activity/Vol] 422 U/L High 23-300 [facility] Comment on above: Performed By: #### A MY3, CMP3, HEMDF, LIPA4 #### [facility] [address] [place] [address] LipaseOrdered By: Andreas Lopez ma on 07-16-2021 Interpretation and review of laboratory results Abnormal [facility] Work Phone: [phone] Lipase [Catalytic activity/Vol] 422 U/L High 23 - 300 U/L [facility] Work Phone: [phone] Performed by [facility], [address] , [place] [address] [facility] Work Phone: [phone] [facility] Work Phone: [phone] CBC Auto DifferentialOrdered By: Nara Hdz on 06-22-2021 Absolute Baso # 0.0 10*3/uL 0.0 - 0.2 10*3/uL [facility] Work Phone: Absolute Neut # 4.8 10*3/uL 1.8 - 7.0 10*3/uL [facility] Work Phone: [phone] Basophils/100 WBC (Bld) 0.7 % 0.0 - 2.0 % [facility] Work Phone: Eosinophils (Bld) [#/Vol] 0.2 10*3/uL 0.0 - 0.5 10*3/uL [facility] Work Phone: [phone] Eosinophils/100 WBC (Bld) 2.6 % 1.0 - 6.0 % [facility] Work Phone: 1 Granulocytes/100 WBC (Bld) 70.0 % 40.0 - 80.0 % [facility] Work Phone: Hematocrit (Bld) [Volume fraction] 34.8 % Low 35.0 - 47.0 % [facility] Work Phone: Hemoglobin.gastrointest inal spec 1 Ql (Stl) 11.8 g/dL 11.7 - 16.0 g/dL [facility] Work Phone: Interpretation and review of laboratory results Abnormal [facility] Work Phone: Lymphocytes (Bld) [#/Vol] 1.2 10*3/uL 1.0 - 4.3 10*3/uL [facility] Work Phone: Lymphocytes/100 WBC (Bld) 17.7 % Low 20.0 - 40.0 % [facility] Work Phone: MCH (RBC) [Entitic mass] 31.7 pg 26.0 - 34.0 pg [facility] Work Phone: MCHC (RBC) [Mass/Vol] 34.0 % 32.0 - 36.0 % [facility] Work Phone: MCV (RBC) [Entitic vol] 93.2 fL 79.0 - 98.0 fL [facility] Work Phone: Monocytes (Bld) [#/Vol] 0.6 10*3/uL 0.0 - 0.8 10*3/uL [facility] Work Phone: [phone] Monocytes/100 WBC (Bld) 9.0 % 2.0 - 10.0 % [facility] Work Phone: Platelet distribution width (Bld) [Ratio] 12.9 % 11.5 - 14.5 % [facility] Work Phone: [phone] Platelet mean volume (Bld) [Entitic vol] 6.5 fL Low 7.4 - 10.4 fL [facility] Work Phone: 1 Platelets (Bld) [#/Vol] 466 10*3/uL High 140 - 440 10*3/uL [facility] Work Phone: 1 RBC (Bld) [#/Vol] 3.74 10*6/uL Low 3.80 - 5.2 0 10*6/uL [facility] Work Phone: 1 WBC (Bld) [#/Vol] 6.9 10*3/uL 3.6 - 10.7 10*3/uL [facility] Work Phone: [phone] Test Performed by [facility], [address] [place] [address] [facility] Work Phone: 1 [facility] Work Phone: [phone] Metabolic Panelon 06-22 Calcium [Mass/Vol] 9.8 mg/dL Normal 8.4-10.4 [facility] Comment on above: Performed By: #### A MY3, CMP3, HEMDF, LIPA4 #### [facility] [address] [place] [address] ALP [Catalytic activity/Vol] 113 U/L Normal 38-126 [facility] Comment on above: Performed By: #### A MY3, CMP3, HEMDF, LIPA4 #### [facility] [address] [place] [address] ALT [Catalytic activity/Vol] 15 U/L Normal 0-34 [facility] Comment on above: Result Comment: The ALT test is performed by an updated assay method. Please note that the reference intervals have been changed and are now sex specific. Performed By: #### A MY3, CMP3, HEMDF, LIPA4 #### [facility] [address] [place] [address] Anion gap [Moles/Vol] 8 mmol/L Normal 3-13 [facility] Comment on above: Performed By: #### A MY3, CMP3, HEMDF, LIPA4 #### [facility] [address] [place] [address] AST [Catalytic activity/Vol] 29 U/L Normal 15-46 [facility] Comment on above: Performed By: #### A MY3, CMP3, HEMDF, LIPA4 #### [facility] [address] [place] [address] Bilirubin [Mass/Vol] 0.7 mg/dL Normal 0.2-1.3 [facility] Comment on above: Performed By: #### A MY3, CMP3, HEMDF, LIPA4 #### [facility] [address] [place] [address] CO2 [Moles/Vol] 27 mmol/L Normal 22-30 [facility] Comment on above: Performed By: #### A MY3, CMP3, HEMDF, LIPA4 #### [facility] [address] [place] [address] Glucose [Mass/Vol] 115 mg/dL High 70-100 [facility] Comment on above: Performed By: #### A MY3, CMP3, HEMDF, LIPA4 #### [facility] [address] [place] [address] Protein [Mass/Vol] 7.1 g/dL Normal 6.3-8.2 [facility] Comment on above: Performed By: #### A MY3, CMP3, HEMDF, LIPA4 #### [facility] [address] [place] [address] Urea nitrogen [Mass/Vol] 9 mg/dL Normal 9-20 [facility] Comment on above: Performed By: #### A MY3, CMP3, HEMDF, LIPA4 #### [facility] [address] [place] [address] Creatinine [Mass/Vol] 0.86 mg/dL Normal 0.52-1.25 [facility] Comment on above: Performed By: #### A MY3, CMP3, HEMDF, LIPA4 #### [facility] [address] [place] [address] GFR/1.73 sq M.predicted among blacks MDRD (S/P/Bld) [Vol rate/Area] 71.6 mL/min/{1.73_m2} Normal >60 [facility] Comment on above: Performed By: #### A MY3, CMP3, HEMDF, LIPA4 #### [facility] [address] [place] [address] GFR/1.73 sq M.predicted among non-blacks MDRD (S/P/Bld) [Vol rate/Area] 61.7 mL/min/{1.73_m2} Normal >60 [facility] Comment on above: Result Comment: KDIG O guidelines provide the following GFR categories: Stage GFR(ml/min/1.73 m2) Terms G1 >=90 Normal or high G2 60-89 Mildly decreased* G3a 45-59 Mildly to moderately decreased G3b 30-44 Moderately to severely decreased G4 15-29 Severely decreased G5 <15 Kidney failure *Relative to young adult level. In the absence of evidence of kidney damage, neither GFR category G1 nor G2 fulfill the criteria for CKD. The CKD-EPI equation is validated in individuals 18 years of age and older. Currently the best equation for estimating glomerular filtration rate (GFR) from serum creatinine in children is the Bedside Lawson equation. It is less accurate in patients with extremes of muscle mass, restriction of dietary protein, ingestion of creatine, extra-renal metabolism of creatinine, or treatment with medications that affect renal tubular creatinine secretion. Performed By: #### A MY3, CMP3, HEMDF, LIPA4 #### [facility] [address] [place] [address] Albumin [Mass/Vol] 4.0 g/dL Normal 3.5-5.0 [facility] Comment on above: Performed By: #### A MY3, CMP3, HEMDF, LIPA4 #### [facility] [address] [place] [address] Chloride [Moles/Vol] 96 mmol/L Low 98-107 [facility] Comment on above: Performed By: #### A MY3, CMP3, HEMDF, LIPA4 #### [facility] [address] [place] [address] Potassium [Moles/Vol] 4.2 mmol/L Normal 3.5-5.1 [facility] Comment on above: Performed By: #### A MY3, CMP3, HEMDF, LIPA4 #### [facility] [address] [place] [address] Sodium [Moles/Vol] 131 mmol/L Low 135-145 [facility] Comment on above: Performed By: #### A MY3, CMP3, HEMDF, LIPA4 #### [facility] [address] [place] [address] Comprehensive Metabolic Pane lOrdered By: Nara Hdz on 06-22-2021 Albumin [Mass/Vol] 4.0 g/dL 3.5 - 5.0 g/dL [facility] Work Phone: [phone] ALP (Bld) [Catalytic activity/Vol] 113 U/L 38 - 126 U/L [facility] Work Phone: ALT [Catalytic activity/Vol] 15 U/L 0 - 34 U/L [facility] Work Phone: Comment on above: The ALT test is perf ormed by an updated assay method. Please note that the reference intervals have been changed and are now sex specific. Anion gap [Moles/Vol] 8 mmol/L 3 - 13 mmol/L [facility] Work Phone: [phone] [Catalytic activity/Vol] 29 U/L 15 - 46 U/L [facility] Work Phone: Bilirubin [Mass/Vol] 0.7 mg/dL 0.2 - 1 .3 mg/dL [facility] Work Phone: Calcium [Mass/Vol] 9.8 mg/dL 8.4 - 10. 4 mg/dL [facility] Work Phone: [phone] Chloride [Moles/Vol] 96 mmol/L Low 98 - 10 7 mmol/L [facility] Work Phone: [phone] CO2 [Moles/Vol] 27 mmol/L 22 - 30 mmol/L [facility] Work Phone: [phone] Creatinine [Mass/Vol] 0.86 mg/dL 0.52 - 1.25 mg/dL [facility] Work Phone: [phone] IF NonAfrican [place]olan 61.7 mL/min >60 [facility] Work Phone: Comment on above: KDIGO guidelines pro vide the following GFR categories: Stage GFR(ml/min/1.73 m2) Terms G1 >=90 Normal or high G2 60-89 Mildly decreased* G3a 45-59 Mildly to moderately decreased G3b 30-44 Moderately to severely decreased G4 15-29 Severely decreased G5 <15 Kidney failure *Relative to young adult level. In the absence of evidence of kidney damage, neither GFR category G1 nor G2 fulfill the criteria for CKD. The CKD-EPI equation is validated in individuals 18 years of age and older. Currently the best equation for estimating glomerular filtration rate (GFR) from serum creatinine in children is the Bedside Lawson equation. It is less accurate in patients with extremes of muscle mass, restriction of dietary protein, ingestion of creatine, extra-renal metabolism of creatinine, or treatment with medications that affect renal tubular creatinine secretion. Free PSA/Total PSA [Mass fraction] 7.1 g/dL 6.3 - 8.2 g/dL [facility] Work Phone: GFR/1.73 sq M.predicted among blacks MDRD (S/P/Bld) [Vol rate/Area] 71.6 mL/min/{1.73_m2} >60 [employer] Phone: Glucose [Mass/Vol] 115 mg/dL High 70 - 100 mg/dL [employer] Phone: Potassium [Moles/Vol] 4.2 mmol/L 3.5 - 5.1 mmol/L [facility] Work Phone: Sodium [Moles/Vol] 131 mmol/L Low 135 - 145 mmol/L [employer] Work Phone: Urea nitrogen (BldV) [Mass/Vol] 9 mg/dL 9 - 20 mg/dL [employer] Phone: Hemogram w/ Autodiffon 06-22 Abs Baso Cnt 0.0 10*3/uL Normal 0.0-0.2 [facility] Comment on above: Performed By: #### A MY3, CMP3, HEMDF, LIPA4 #### [employer] [address] [place] [address] Abs Neutrophile Cnt 4.8 10*3/uL Normal 1.8-7.0 [facility] Comment on above: Performed By: #### A MY3, CMP3, HEMDF, LIPA4 #### [facility] [address] [place] [address] Basophils/100 WBC (Bld) 0.7 % Normal 0.0-2.0 [facility] Comment on above: Performed By: #### A MY3, CMP3, HEMDF, LIPA4 #### [facility] [address] [place] [address] Eosinophils (Bld) [#/Vol] 0.2 10*3/uL Normal 0.0-0.5 [facility] Comment on above: Performed By: #### A MY3, CMP3, HEMDF, LIPA4 #### [facility] [address] [place] [address] Eosinophils/100 WBC (Bld) 2.6 % Normal 1.0-6.0 [facility] Comment on above: Performed By: #### A MY3, CMP3, HEMDF, LIPA4 #### [facility] [address] [place] [address] Erythrocyte distribution width (RBC) [Ratio] 12.9 % Normal 11.5-14.5 [facility] Comment on above: Performed By: #### A MY3, CMP3, HEMDF, LIPA4 #### [facility] [address] [place] [address] Granulocytes/100 WBC (Bld) 70.0 % Normal 40.0-80.0 [facility] Comment on above: Performed By: #### A MY3, CMP3, HEMDF, LIPA4 #### [facility] [address] [place] [address] Hematocrit (Bld) [Volume fraction] 34.8 % Low 35.0-47.0 [facility] Comment on above: Performed By: #### A MY3, CMP3, HEMDF, LIPA4 #### [facility] [address] [place] [address] Hemoglobin (Bld) [Mass/Vol] 11.8 g/dL Normal 11.7-16.0 [facility] Comment on above: Performed By: #### A MY3, CMP3, HEMDF, LIPA4 #### [facility] [address] [place] [address] Lymphocytes (Bld) [#/Vol] 1.2 10*3/uL Normal 1.0-4.3 [facility] Comment on above: Performed By: #### A MY3, CMP3, HEMDF, LIPA4 #### [facility] [address] [place] [address] Lymphocytes/100 WBC (Bld) 17.7 % Low 20.0-40.0 [facility] Comment on above: Performed By: #### A MY3, CMP3, HEMDF, LIPA4 #### [facility] [address] [place] [address] MCH (RBC) [Entitic mass] 31.7 pg Normal 26.0-34.0 [facility] Comment on above: Performed By: #### A MY3, CMP3, HEMDF, LIPA4 #### [facility] [address] [place] [address] MCHC 34.0 % Normal 32.0-36.0 [facility] Comment on above: Performed By: #### A MY3, CMP3, HEMDF, LIPA4 #### [facility] [address] [place] [address] MCV (RBC) [Entitic vol] 93.2 fL Normal 79.0-98.0 [facility] Comment on above: Performed By: #### A MY3, CMP3, HEMDF, LIPA4 #### [facility] [address] [place] [address] Monocytes (Bld) [#/Vol] 0.6 10*3/uL Normal 0.0-0.8 [facility] Comment on above: Performed By: #### A MY3, CMP3, HEMDF, LIPA4 #### [facility] [address] [place] [address] Monocytes/100 WBC (Bld) 9.0 % Normal 2.0-10.0 [facility] Comment on above: Performed By: #### A MY3, CMP3, HEMDF, LIPA4 #### [facility] [address] [place] [address] Platelet mean volume (Bld) [Entitic vol] 6.5 fL Low 7.4-10.4 [facility] Comment on above: Performed By: #### A MY3, CMP3, HEMDF, LIPA4 #### [facility] [address] [place] [address] Platelets (Bld) [#/Vol] 466 10*3/uL High 140-440 [facility] Comment on above: Performed By: #### A MY3, CMP3, HEMDF, LIPA4 #### [facility] [address] [place] [address] RBC (Bld) [#/Vol] 3.74 10*6/uL Low 3.80-5.20 [facility] Comment on above: Performed By: #### A MY3, CMP3, HEMDF, LIPA4 #### [facility] [address] [place] [address] WBC (Bld) [#/Vol] 6.9 10*3/uL Normal 3.6-10.7 [facility] Comment on above: Performed By: #### A MY3, CMP3, HEMDF, LIPA4 #### [facility] [address] [place] [address] Lipaseon 06-22-2021 Lipase [Catalytic activity/Vol] 1089 U/L High 23-300 [facility] Comment on above: Performed By: #### A MY3, CMP3, HEMDF, LIPA4 #### [facility] [address] [place] [address] LipaseOrdered By: Nara cheema on 06-22-2021 Lipase [Catalytic activity/Vol] 1089 U/L High 23 - 300 U/L [facility] Work Phone: No Panel InformationOrdered By: Nara Hdz on 06-22-2021 Interpretation and review of laboratory results Abnormal [facility] Work Phone: Test Performed by [facility], [address] Work Phone: [phone] [facility] Work Phone: [phone] Prothrombin Timeon INR 1.1 Normal 0.9-1.1 [facility] Comment on above: Result Comment: Tray mmended Anticoagulant Therapy: SEE BELOW ----- INR of 2.0 - 3.0 : - Prophylaxis of Venous Thrombosis (high-risk surgery) - Treatment of Venous Thrombosis - Treatment of Pulmonary Embolism (Includes tissue heart valves, Acute Myocardial Infarction to prevent systemic embolism, Valvular Heart Disease, and Atrial Fibrillation) ----- INR of 2.5 - 3.5 : - Mechanical Prosthetic Valves (high risk) - If oral anticoagulant therapy is used to prevent Myocardial Infarction Performed By: #### A MY3, CMP3, HEMDF, LIPA4 #### [facility] [address] [place] [address] PT Coag (PPP) [Time] 11.4 s Normal 9.0-12.0 [facility] Comment on above: Result Comment: . Performed By: #### A MY3, CMP3, HEMDF, LIPA4 #### [facility] [address] [facility] [place] [address] Protime-INROrdered By: Sana Hdz on 06-22-2021 INR Coag (Bld) [Relative time] 1.1 {INR} [facility] Work Phone: [phone] Comment on above: Recommended Anticoag ulant Therapy: SEE BELOW ----- INR of 2.0 - 3.0 : - Prophylaxis of Venous Thrombosis (high-risk surgery) - Treatment of Venous Thrombosis - Treatment of Pulmonary Embolism (Includes tissue heart valves, Acute Myocardial Infarction to prevent systemic embolism, Valvular Heart Disease, and Atrial Fibrillation) ----- INR of 2.5 - 3.5 : - Mechanical Prosthetic Valves (high risk) - If oral anticoagulant therapy is used to prevent Myocardial Infarction PT Coag (PPP) [Time] 11.4 s 9.0 - 12.0 s [facility] Work Phone: Comment on above: . Test Performed by [facility], [address] , [place], [place] [address] [facility] Work Phone: [facility] Work Phone: US Abdomen Limitedon 021 US Abdomen Limited Patient Name: HELEN GUTIERREZ Ultrasound ACCESSION EXAM DATE/TIME PROCEDURE ORDERING PROVIDER [id number] 06/06/2021 07:36 EDT US Abdomen Limited MD ALEA, KAEL JORDAN CPT code 28420 Reason For Exam (US Abdomen Limited) assess CBD dilation Report ULTRASOUND RUQ: INDICATION: Acute pancreatitis COMPARISON: 06/02/2021. Sonogram of the right upper quadrant is performed. The liver is normal in echotexture. No hyper or hypoechoic masses are seen. Intrahepatic ducts are borderline prominent. The gallbladder is surgically absent.. The common bile duct diameter of 1.2 mm is borderline prominent. The pancreas is normal in echotexture. Pancreatic duct is borderline prominent measuring 2.6 mm. No obvious pancreatic mass or peripancreatic fluid collection is identified. The visualized portions of the aorta and IVC are normal. Cursory examination of the right kidney is performed. The right renal length is 9.0 cm. There is no hydronephrosis. There is no ascites in the right upper quadrant. IMPRESSION: Absent gallbladder. Common duct diameter is borderline prominent. This may related to the post cholecystectomy status. Borderline prominence of the intrahepatic ducts and pancreatic duct also noted. No peripancreatic fluid collections. No free fluid. Report Dictated on Final Dictated: 06/06/2021 9:49 am Dictating Physician: MD ALTAMIRANO LAURA Signed Date and Time: 06/06/2021 9:53 am Signed by: MD ALTAMIRANO LAURA Transcribed Date and Time: 06/06/2021 9:49 Normal [facility] Comp Metabolic Panelon 06-05 ALP [Catalytic activity/Vol] 257 U/L High 38-126 [facility] Comment on above: Performed By: #### P T, RENL3 #### [place] [phone] ALT [Catalytic activity/Vol] 95 U/L High 0-34 [facility] Comment on above: Result Comment: The ALT test is performed by an updated assay method. Please note that the reference intervals have been changed and are now sex specific. Performed By: #### P T, RENL3 #### [facility] [address] [facility] [place] [address] AST [Catalytic activity/Vol] 44 U/L Normal 15-46 [facility] Comment on above: Performed By: #### P T, RENL3 #### [facility] [address] [facility], [place] Bilirubin [Mass/Vol] 1.6 mg/dL High 0.2-1.3 [facility] Comment on above: Performed By: #### P T, RENL3 #### [facility] [address] [facility], [place] Protein [Mass/Vol] 6.9 g/dL Normal 6.3-8.2 [facility] Comment on above: Performed By: #### P T, RENL3 #### [facility] [address] [facility], [place] Renal Functionon 06-05-2021 Calcium [Mass/Vol] 9.3 mg/dL Normal 8.4-10.4 [facility] Comment on above: Performed By: #### C MP3, RENL3 #### [facility] [address] [facility], [place] Glucose [Mass/Vol] 139 mg/dL High 70-100 [facility] Comment on above: Performed By: #### C MP3, RENL3 #### [facility] [address] [facility], [place] Phosphate [Mass/Vol] 2.8 mg/dL Normal 2.5-4.5 [facility] Comment on above: Performed By: #### C MP3, RENL3 #### [facility] [address] [facility], [place] Anion gap [Moles/Vol] 12 mmol/L Normal 3-13 [facility] Comment on above: Performed By: #### C MP3, RENL3 #### [facility] [address] [place], [place] CO2 [Moles/Vol] 24 mmol/L Normal 22-30 [facility] Comment on above: Performed By: #### C MP3, RENL3 #### [facility] [address] [place], [place] Creatinine [Mass/Vol] 0.50 mg/dL Low 0.52-1.25 [facility] Comment on above: Performed By: #### C MP3, RENL3 #### [place] [address] [place], [place] GFR/1.73 sq M.predicted among blacks MDRD (S/P/Bld) [Vol rate/Area] mL/min/{1.73_m2} Normal >60 [facility] Comment on above: Performed By: #### C MP3, RENL3 #### [address] GFR/1.73 sq M.predicted among non-blacks MDRD (S/P/Bld) [Vol rate/Area] 88.5 mL/min/{1.73_m2} Normal >60 [facility] Comment on above: Result Comment: KDIG O guidelines provide the following GFR categories: Stage GFR(ml/min/1.73 m2) Terms G1 >=90 Normal or high G2 60-89 Mildly decreased* G3a 45-59 Mildly to moderately decreased G3b 30-44 Moderately to severely decreased G4 15-29 Severely decreased G5 <15 Kidney failure *Relative to young adult level. In the absence of evidence of kidney damage, neither GFR category G1 nor G2 fulfill the criteria for CKD. The CKD-EPI equation is validated in individuals 18 years of age and older. Currently the best equation for estimating glomerular filtration rate (GFR) from serum creatinine in children is the Bedside Lawson equation. It is less accurate in patients with extremes of muscle mass, restriction of dietary protein, ingestion of creatine, extra-renal metabolism of creatinine, or treatment with medications that affect renal tubular creatinine secretion. Performed By: #### C MP3, RENL3 #### [address] Urea nitrogen [Mass/Vol] 13 mg/dL Normal 9-20 [facility] Comment on above: Performed By: #### C MP3, RENL3 #### [facility] [address] [place], [place] Potassium [Moles/Vol] 3.9 mmol/L Normal 3.5-5.1 [facility] Comment on above: Performed By: #### C MP3, RENL3 #### [facility] [address] [place], [place] Sodium [Moles/Vol] 131 mmol/L Low 135-145 [facility] Comment on above: Performed By: #### C MP3, RENL3 #### [place] [address] [address] [place], [place] Albumin [Mass/Vol] 3.5 g/dL Normal 3.5-5.0 [facility] Comment on above: Performed By: #### C MP3, RENL3 #### [place] [address] [address] [place], [place] Chloride [Moles/Vol] 95 mmol/L Low 98-107 [facility] Comment on above: Performed By: #### C MP3, RENL3 #### [place] [address] [address] [place], [place] Sodiumon 06-05-2021 Sodium [Moles/Vol] 130 mmol/L Low 135-145 [facility] Comment on above: Performed By: #### P T, RENL3 #### [place] [address] [address] [place], [place] Comp Metabolic Panelon 06-04 ALT [Catalytic activity/Vol] 134 U/L High 0-34 [facility] Comment on above: Result Comment: The ALT test is performed by an updated assay method. Please note that the reference intervals have been changed and are now sex specific. Performed By: #### C MP3, RENL3, PT, LIPA4 #### [facility] [address] [place], [place] Calcium [Mass/Vol] 8.9 mg/dL Normal 8.4-10.4 [facility] Comment on above: Performed By: #### C MP3, RENL3, PT, LIPA4 #### [place] [address] [address] [place], [place] ALP [Catalytic activity/Vol] 279 U/L High 38-126 [facility] Comment on above: Performed By: #### C MP3, RENL3, PT, LIPA4 #### [place] [address] [address] [place], [place] Anion gap [Moles/Vol] 9 mmol/L Normal 3-13 [facility] Comment on above: Performed By: #### C MP3, RENL3, PT, LIPA4 #### [place] [address] [place], [place] AST [Catalytic activity/Vol] 74 U/L High 15-46 [facility] Comment on above: Performed By: #### C MP3, RENL3, PT, LIPA4 #### [place] [address] [place], [place] Bilirubin [Mass/Vol] 5.2 mg/dL High 0.2-1.3 [facility] Comment on above: Performed By: #### C MP3, RENL3, PT, LIPA4 #### [place] [address] [address] [place], [place] CO2 [Moles/Vol] 23 mmol/L Normal 22-30 [facility] Comment on above: Performed By: #### C MP3, RENL3, PT, LIPA4 #### [place] [address] [address] [place], [place] Creatinine [Mass/Vol] 0.52 mg/dL Normal 0.52-1.25 [facility] Comment on above: Performed By: #### C MP3, RENL3, PT, LIPA4 #### [place] [address] [address] [place], [place] GFR/1.73 sq M.predicted among blacks MDRD (S/P/Bld) [Vol rate/Area] mL/min/{1.73_m2} Normal >60 [facility] Comment on above: Performed By: #### C MP3, RENL3, PT, LIPA4 #### [address] GFR/1.73 sq M.predicted among non-blacks MDRD (S/P/Bld) [Vol rate/Area] 87.4 mL/min/{1.73_m2} Normal >60 [facility] Comment on above: Result Comment: KDIG O guidelines provide the following GFR categories: Stage GFR(ml/min/1.73 m2) Terms G1 >=90 Normal or high G2 60-89 Mildly decreased* G3a 45-59 Mildly to moderately decreased G3b 30-44 Moderately to severely decreased G4 15-29 Severely decreased G5 <15 Kidney failure *Relative to young adult level. In the absence of evidence of kidney damage, neither GFR category G1 nor G2 fulfill the criteria for CKD. The CKD-EPI equation is validated in individuals 18 years of age and older. Currently the best equation for estimating glomerular filtration rate (GFR) from serum creatinine in children is the Bedside Lawson equation. It is less accurate in patients with extremes of muscle mass, restriction of dietary protein, ingestion of creatine, extra-renal metabolism of creatinine, or treatment with medications that affect renal tubular creatinine secretion. Performed By: #### C MP3, RENL3, PT, LIPA4 #### [address] Glucose [Mass/Vol] 106 mg/dL High 70-100 [facility] Comment on above: Performed By: #### C MP3, RENL3, PT, LIPA4 #### [address] Protein [Mass/Vol] 6.6 g/dL Normal 6.3-8.2 [facility] Comment on above: Performed By: #### C MP3, RENL3, PT, LIPA4 #### [address] Urea nitrogen [Mass/Vol] 11 mg/dL Normal 9-20 [facility] Comment on above: Performed By: #### C MP3, RENL3, PT, LIPA4 #### [address] Potassium [Moles/Vol] 2.9 mmol/L Low 3.5-5.1 [facility] Comment on above: Performed By: #### C MP3, RENL3, PT, LIPA4 #### [place] [address] [place], [place] Sodium [Moles/Vol] 129 mmol/L Low 135-145 [facility] Comment on above: Performed By: #### C MP3, RENL3, PT, LIPA4 #### [place] [address] [place], [place] Albumin [Mass/Vol] 3.3 g/dL Low 3.5-5.0 [facility] Comment on above: Performed By: #### C MP3, RENL3, PT, LIPA4 #### [place] [address] [place], [place] Chloride [Moles/Vol] 96 mmol/L Low 98-107 [facility] Comment on above: Performed By: #### C MP3, RENL3, PT, LIPA4 #### [address] Lipaseon 06-04-2021 Lipase [Catalytic activity/Vol] 1269 U/L High 23-300 [facility] Comment on above: Performed By: #### C MP3, RENL3, PT, LIPA4 #### [address] Osmolality,Urineon 1 Osmolality,Urine 455 mosm/kg Normal 300-1000 [facility] Comment on above: Performed By: #### A DDON #### [address] Prothrombin Timeon 1 INR 1.2 High 0.9-1.1 [facility] Comment on above: Result Comment: Tray mmended Anticoagulant Therapy: SEE BELOW ----- INR of 2.0 - 3.0 : - Prophylaxis of Venous Thrombosis (high-risk surgery) - Treatment of Venous Thrombosis - Treatment of Pulmonary Embolism (Includes tissue heart valves, Acute Myocardial Infarction to prevent systemic embolism, Valvular Heart Disease, and Atrial Fibrillation) ----- INR of 2.5 - 3.5 : - Mechanical Prosthetic Valves (high risk) - If oral anticoagulant therapy is used to prevent Myocardial Infarction Performed By: #### C MP3, RENL3, PT, LIPA4 #### [place] [address] [address] [place], [place] PT Coag (PPP) [Time] 12.3 s High 9.0-12.0 [facility] Comment on above: Result Comment: . Performed By: #### C MP3, RENL3, PT, LIPA4 #### [place] [address] [address] [place], [place] RF ERCP Biliary and Pancreat ic Ducton 06-04-2021 RF ERCP Biliary and Pancreatic Duct Patient Name: HELEN LIEBERMAN Fluoroscopy ACCESSION EXAM DATE/TIME PROCEDURE ORDERING PROVIDER [id number] 06/04/2021 13:45 EDT RF ERCP Biliary and [id number] -[facility] Pancreatic Duct CPT code 95772 Reason For Exam (RF ERCP Biliary and Pancreatic Duct) obstructive jaundice Report A total of ??.9??minutes of fluoro time was used in the Operating Suite for this procedure. ?? No other report will be generated. Final Signed Date and Time: 06/05/2021 3:43 pm Signed by: [employer] Transcribed Date and Time: 06/05/2021 3:33 Transcribed By:KK Normal [facility] Renal Functionon 06-04-2021 Phosphate [Mass/Vol] 2.6 mg/dL Normal 2.5-4.5 [facility] Comment on above: Performed By: #### C MP3, RENL3, PT, LIPA4 #### [facility] [address] [place], [place] Sodiumon 06-04-2021 Sodium [Moles/Vol] 130 mmol/L Low 135-145 [facility] Comment on above: Performed By: #### P T, RENL3 #### [place] [address] [address] [place], [place] Sodium, Ur Randomon 06-04-20 21 Sodium [Moles/Vol] 77 mmol/L Normal 30-90 [facility] Comment on above: Performed By: #### A DDON #### [facility] [address] [facility] [place], [place] Add on test from HISon 06-03 Add on test from HIS Accepted Normal [facility] Comment on above: Result Comment: Spec imen available & acceptable for analysis. Performed By: #### A DDON #### [facility] [address] [facility] [place], [place] Add on test from HIS Rejected Normal [facility] Comment on above: Result Comment: No s pecimen available for addon. Performed By: #### A DDON #### [facility] [address] [facility] [place], [place] Bilirubin,Directon Bilirubin.indirect [Mass/Vol] 1.6 mg/dL High 0.0-0.3 [facility] Comment on above: Performed By: #### P T, RENL3 #### [facility] [address] [facility] [place], [place] Comp Metabolic Panelon 06-03 ALT [Catalytic activity/Vol] 201 U/L High 0-34 [facility] Comment on above: Result Comment: The ALT test is performed by an updated assay method. Please note that the reference intervals have been changed and are now sex specific. Performed By: #### P T, RENL3 #### [facility] [address] [facility] [place] ALP [Catalytic activity/Vol] 196 U/L High 38-126 [facility] Comment on above: Performed By: #### P T, RENL3 #### [facility] [address] [facility] [place], [place] AST [Catalytic activity/Vol] 119 U/L High 15-46 [facility] Comment on above: Performed By: #### P T, RENL3 #### [facility] [address] [facility] [place] Bilirubin [Mass/Vol] 4.4 mg/dL High 0.2-1.3 [facility] Comment on above: Performed By: #### P T, RENL3 #### [facility] [address] [place], [place] CO2 [Moles/Vol] 24 mmol/L Normal 22-30 [facility] Comment on above: Performed By: #### Cynthia Clement RENVenu #### [facility] [address] [place], [place] Creatinine [Mass/Vol] 0.57 mg/dL Normal 0.52-1.25 [facility] Comment on above: Performed By: #### Cynthia Clement RENL3 #### [facility] [address] [place], [place] GFR/1.73 sq M.predicted among non-blacks MDRD (S/P/Bld) [Vol rate/Area] 84.8 mL/min/{1.73_m2} Normal >60 [facility] Comment on above: Result Comment: KDIG O guidelines provide the following GFR categories: Stage GFR(ml/min/1.73 m2) Terms G1 >=90 Normal or high G2 60-89 Mildly decreased* G3a 45-59 Mildly to moderately decreased G3b 30-44 Moderately to severely decreased G4 15-29 Severely decreased G5 <15 Kidney failure *Relative to young adult level. In the absence of evidence of kidney damage, neither GFR category G1 nor G2 fulfill the criteria for CKD. The CKD-EPI equation is validated in individuals 18 years of age and older. Currently the best equation for estimating glomerular filtration rate (GFR) from serum creatinine in children is the Bedside Lawson equation. It is less accurate in patients with extremes of muscle mass, restriction of dietary protein, ingestion of creatine, extra-renal metabolism of creatinine, or treatment with medications that affect renal tubular creatinine secretion. Performed By: #### Cynthia Clement RENL3 #### [facility] [address] [place], [place] Glucose [Mass/Vol] 99 mg/dL Normal 70-100 [facility] Comment on above: Performed By: #### ИРИНА LanL3 #### [facility] [address] [place], [place] Protein [Mass/Vol] 6.3 g/dL Normal 6.3-8.2 [facility] Comment on above: Performed By: #### Cynthia Clement RENL3 #### [facility] [address] [place], [place] Potassium [Moles/Vol] 3.5 mmol/L Normal 3.5-5.1 [facility] Comment on above: Performed By: #### P T, GOSIA #### [facility] [address] [place], [place] Sodium [Moles/Vol] 127 mmol/L Low 135-145 [facility] Comment on above: Performed By: #### P T, ИРИНАL3 #### [facility] [address] [place], [place] Chloride [Moles/Vol] 96 mmol/L Low 98-107 [facility] Comment on above: Performed By: #### P TGOSIA #### [place] [address] [address] [place], [place] Hemogram w/ Autodiffon 06-03 Abs Baso Cnt 0.0 10*3/uL Normal 0.0-0.2 [facility] Comment on above: Performed By: #### A DDON #### [place] [address] [address] [place], [place] Abs Neutrophile Cnt 13.3 10*3/uL High 1.8-7.0 [facility] Comment on above: Performed By: #### A DDON #### [place] [address] [address] [place], [place] Basophils/100 WBC (Bld) 0.1 % Normal 0.0-2.0 [facility] Comment on above: Performed By: #### A DDON #### [place] [address] [address] [place], [place] Eosinophils (Bld) [#/Vol] 0.0 10*3/uL Normal 0.0-0.5 [facility] Comment on above: Performed By: #### A DDON #### [place] [address] [address] [place], [place] Eosinophils/100 WBC (Bld) 0.2 % Low 1.0-6.0 [facility] Comment on above: Performed By: #### A DDON #### [place] [address] [address] [place], [place] Erythrocyte distribution width (RBC) [Ratio] 12.9 % Normal 11.5-14.5 [facility] Comment on above: Performed By: #### A DDON #### [place] [address] [address] [place], [place] Granulocytes/100 WBC (Bld) 92.4 % High 40.0-80.0 [facility] Comment on above: Performed By: #### A DDON #### [place] [address] [address] [place], [place] Hematocrit (Bld) [Volume fraction] 38.7 % Normal 35.0-47.0 [facility] Comment on above: Performed By: #### A DDON #### [place] [address] [address] [place], [place] Hemoglobin (Bld) [Mass/Vol] 12.7 g/dL Normal 11.7-16.0 [facility] Comment on above: Performed By: #### A DDON #### [place] [address] [address] [place], [place] Lymphocytes (Bld) [#/Vol] 0.4 10*3/uL Low 1.0-4.3 [facility] Comment on above: Performed By: #### A DDON #### [address] [place], [place] Lymphocytes/100 WBC (Bld) 2.6 % Low 20.0-40.0 [facility] Comment on above: Performed By: #### A DDON #### [place] [address] [place], [place] MCH (RBC) [Entitic mass] 31.6 pg Normal 26.0-34.0 [facility] Comment on above: Performed By: #### A DDON #### [place] [address] [place], [place] MCHC 32.8 % Normal 32.0-36.0 [facility] Comment on above: Performed By: #### A DDON #### [place] [address] [place], [place] MCV (RBC) [Entitic vol] 96.2 fL Normal 79.0-98.0 [facility] Comment on above: Performed By: #### A DDON #### [place] [place], [place] Monocytes (Bld) [#/Vol] 0.7 10*3/uL Normal 0.0-0.8 [facility] Comment on above: Performed By: #### A DDON #### [place] [place], [place] Monocytes/100 WBC (Bld) 4.7 % Normal 2.0-10.0 [facility] Comment on above: Performed By: #### A DDON #### [place] [address] [place], [place] Platelet mean volume (Bld) [Entitic vol] 7.3 fL Low 7.4-10.4 [facility] Comment on above: Performed By: #### A DDON #### [place] [address] [place], [place] Platelets (Bld) [#/Vol] 304 10*3/uL Normal 140-440 [facility] Comment on above: Performed By: #### A DDON #### [place] [address] [place], [place] RBC (Bld) [#/Vol] 4.02 10*6/uL Normal 3.80-5.20 [facility] Comment on above: Performed By: #### A DDON #### [address] [place], [place] WBC (Bld) [#/Vol] 14.5 10*3/uL High 3.6-10.7 [facility] Comment on above: Performed By: #### A DDON #### [place] [address] [place], [place] Lipaseon 06-03-2021 Lipase [Catalytic activity/Vol] 421 U/L High 23-300 [facility] Comment on above: Performed By: #### P T, RENL3 #### [address] [place] [address] Magnesiumon 06-03-2021 Magnesium [Mass/Vol] 2.1 mg/dL Normal 1.6-2.3 [facility] Comment on above: Performed By: #### P T, RENL3 #### [facility] [address] [place] [address] Renal Functionon 06-03-2021 Calcium [Mass/Vol] 8.9 mg/dL Normal 8.4-10.4 [facility] Comment on above: Performed By: #### P T, RENL3 #### [facility] [address] [place], [place] Glucose [Mass/Vol] 99 mg/dL Normal 70-100 [facility] Comment on above: Performed By: #### P T, RENL3 #### [facility] [address] [place], [place] Phosphate [Mass/Vol] 2.3 mg/dL Low 2.5-4.5 [facility] Comment on above: Performed By: #### P T, RENL3 #### [facility] [address] [place], [place] Anion gap [Moles/Vol] 7 mmol/L Normal 3-13 [facility] Comment on above: Performed By: #### P T, RENL3 #### [facility] [address] [place], [place] CO2 [Moles/Vol] 25 mmol/L Normal 22-30 [facility] Comment on above: Performed By: #### P T, RENL3 #### [facility] [address] [place], [place] Creatinine [Mass/Vol] 0.60 mg/dL Normal 0.52-1.25 [facility] Comment on above: Performed By: #### P T, RENL3 #### [facility] [address] [place], [place] GFR/1.73 sq M.predicted among blacks MDRD (S/P/Bld) [Vol rate/Area] mL/min/{1.73_m2} Normal >60 [facility] Comment on above: Performed By: #### P T, RENL3 #### [facility] [address] [place] [address] GFR/1.73 sq M.predicted among non-blacks MDRD (S/P/Bld) [Vol rate/Area] 83.3 mL/min/{1.73_m2} Normal >60 [facility] Comment on above: Result Comment: KDIG O guidelines provide the following GFR categories: Stage GFR(ml/min/1.73 m2) Terms G1 >=90 Normal or high G2 60-89 Mildly decreased* G3a 45-59 Mildly to moderately decreased G3b 30-44 Moderately to severely decreased G4 15-29 Severely decreased G5 <15 Kidney failure *Relative to young adult level. In the absence of evidence of kidney damage, neither GFR category G1 nor G2 fulfill the criteria for CKD. The CKD-EPI equation is validated in individuals 18 years of age and older. Currently the best equation for estimating glomerular filtration rate (GFR) from serum creatinine in children is the Bedside Lawson equation. It is less accurate in patients with extremes of muscle mass, restriction of dietary protein, ingestion of creatine, extra-renal metabolism of creatinine, or treatment with medications that affect renal tubular creatinine secretion. Performed By: #### P T, RENL3 #### [facility] [address] [place], [place] Urea nitrogen [Mass/Vol] 10 mg/dL Normal 9-20 [facility] Comment on above: Performed By: #### P T, RENL3 #### [facility] [address] [place], [place] Albumin [Mass/Vol] 3.4 g/dL Low 3.5-5.0 [facility] Comment on above: Performed By: #### P T, RENL3 #### [facility] [address] [place] [address] Chloride [Moles/Vol] 98 mmol/L Normal 98-107 [facility] Comment on above: Performed By: #### P T, RENL3 #### [facility] [address] [place] [address] Potassium [Moles/Vol] 3.4 mmol/L Low 3.5-5.1 [facility] Comment on above: Performed By: #### P T, RENL3 #### [facility] [address] [place], [place] Sodium [Moles/Vol] 129 mmol/L Low 135-145 [facility] Comment on above: Performed By: #### P T, RENL3 #### [facility] [address] [place] [address] Sodiumon 06-03-2021 Sodium [Moles/Vol] 131 mmol/L Low 135-145 [facility] Comment on above: Performed By: #### P T, RENL3 #### [facility] [address] [place], [place] Acute Hepatitis Panelon Hep C Antibody Not detected Normal Not Detected [facility] Comment on above: Result Comment: Patients with DETECTED Hepatitis C Ab results should have a new specimen submitted for supplemental testing with a Hepatitis C Quantitative RNA assay (viral load), if clinically indicated. Performed By: #### P T, RENL3 #### [facility] [address] [place], [place] Hep A Virus Ab,IgM Not detected Normal Not Detected [facility] Comment on above: Performed By: #### P T, RENL3 #### [facility] [address] [place], [place] Hep B Surface Ag Not detected Normal Not Detected [facility] Comment on above: Performed By: #### P T, RENL3 #### [facility] [address] [place], [place] Hep B Core IgM Not detected Normal Not Detected [facility] Comment on above: Performed By: #### P T, RENL3 #### [facility] [address] [place], [place] Add on test from HISon 06-02 Add on test from HIS Accepted Normal [facility] Comment on above: Result Comment: Spec imen available & acceptable for analysis. Performed By: #### A DDON #### [facility] [address] [place], [place] Bilirubin,Directon Bilirubin.indirect [Mass/Vol] 0.7 mg/dL High 0.0-0.3 [facility] Comment on above: Performed By: #### P T, RENL3 #### [facility] [address] [place], [place] Chloride, Ur Randomon 2020 Chloride [Moles/Vol] 40 mmol/L Normal 18-209 [facility] Comment on above: Performed By: #### A DDON #### [facility] [address] [place], [place] Comp Metabolic Panelon 06-02 ALP [Catalytic activity/Vol] 155 U/L High 38-126 [facility] Comment on above: Performed By: #### P T RENL3 #### [address] [place], [place] ALT [Catalytic activity/Vol] 274 U/L High 0-34 [facility] Comment on above: Result Comment: The ALT test is performed by an updated assay method. Please note that the reference intervals have been changed and are now sex specific. Performed By: #### P T, RENL3 #### [facility] [address], [place] Anion gap [Moles/Vol] 6 mmol/L Normal 3-13 [facility] Comment on above: Performed By: #### P T RENL3 #### [address] [place], [place] AST [Catalytic activity/Vol] 285 U/L High 15-46 [facility] Comment on above: Performed By: #### P T, RENL3 #### [facility] [address] [place], [place] Bilirubin [Mass/Vol] 3.9 mg/dL High 0.2-1.3 [facility] Comment on above: Performed By: #### P T, RENL3 #### [facility] [address] [place], [place] Calcium [Mass/Vol] 8.7 mg/dL Normal 8.4-10.4 [facility] Comment on above: Performed By: #### P T RENL3 #### [address] [place], [place] CO2 [Moles/Vol] 26 mmol/L Normal 22-30 [facility] Comment on above: Performed By: #### P T, RENL3 #### [address] [place], [place] Glucose [Mass/Vol] 123 mg/dL High 70-100 [facility] Comment on above: Performed By: #### P T, RENL3 #### [address] [address] [place], [place] Protein [Mass/Vol] 6.6 g/dL Normal 6.3-8.2 [facility] Comment on above: Performed By: #### P T, RENL3 #### [address] [address] [place], [place] Urea nitrogen [Mass/Vol] 10 mg/dL Normal 9-20 [facility] Comment on above: Performed By: #### P T, RENL3 #### [address] [place], [place] Creatinine [Mass/Vol] 0.66 mg/dL Normal 0.52-1.25 [facility] Comment on above: Performed By: #### P T, RENL3 #### [address] [place], [place] GFR/1.73 sq M.predicted among blacks MDRD (S/P/Bld) [Vol rate/Area] mL/min/{1.73_m2} Normal >60 [facility] Comment on above: Performed By: #### P T, RENL3 #### [address] [place], [place] GFR/1.73 sq M.predicted among non-blacks MDRD (S/P/Bld) [Vol rate/Area] 80.8 mL/min/{1.73_m2} Normal >60 [facility] Comment on above: Result Comment: KDIG O guidelines provide the following GFR categories: Stage GFR(ml/min/1.73 m2) Terms G1 >=90 Normal or high G2 60-89 Mildly decreased* G3a 45-59 Mildly to moderately decreased G3b 30-44 Moderately to severely decreased G4 15-29 Severely decreased G5 <15 Kidney failure *Relative to young adult level. In the absence of evidence of kidney damage, neither GFR category G1 nor G2 fulfill the criteria for CKD. The CKD-EPI equation is validated in individuals 18 years of age and older. Currently the best equation for estimating glomerular filtration rate (GFR) from serum creatinine in children is the Bedside Lawson equation. It is less accurate in patients with extremes of muscle mass, restriction of dietary protein, ingestion of creatine, extra-renal metabolism of creatinine, or treatment with medications that affect renal tubular creatinine secretion. Performed By: #### P T, RENL3 #### [facility] [address] [place] [address] Potassium [Moles/Vol] 3.8 mmol/L Normal 3.5-5.1 [facility] Comment on above: Performed By: #### P T, RENL3 #### [facility] [address] [place] [address] Albumin [Mass/Vol] 3.5 g/dL Normal 3.5-5.0 [facility] Comment on above: Performed By: #### P T, RENL3 #### [facility] [address] [place] [address] Chloride [Moles/Vol] 97 mmol/L Low 98-107 [facility] Comment on above: Performed By: #### P T, RENL3 #### [facility] [address] [place] [address] Sodium [Moles/Vol] 129 mmol/L Low 135-145 [facility] Comment on above: Performed By: #### P T, RENL3 #### [facility] [address] [place] [address] Complete Urinalysison 2020 Bacteria LM.HPF (Urine sed) [#/Area] Negative Normal Negative [facility] Comment on above: Result Comment: . Performed By: #### A MY3, CMP3, HEMDF, LIPA4 #### [facility] [address] [place] [address] RBC, Urine 0 - 2 Normal 0-2 [facility] Comment on above: Result Comment: . Performed By: #### A MY3, CMP3, HEMDF, LIPA4 #### [facility] [address] [place] [address] Squamous Epithelial Negative Normal 3-5 [facility] Comment on above: Result Comment: . Performed By: #### A MY3, CMP3, HEMDF, LIPA4 #### [facility] [address] [place] [address] VOLUME, URINE 12 ml Normal [facility] Comment on above: Result Comment: . Performed By: #### A MY3, CMP3, HEMDF, LIPA4 #### [facility] [address] [place] [address] WBC, Urine 0 - 2 Normal 0-5 [facility] Comment on above: Result Comment: . Performed By: #### A MY3, CMP3, HEMDF, LIPA4 #### [facility] [address] [place] [address] Appearance (U) Clear Normal Clear [facility] Comment on above: Result Comment: . Performed By: #### A MY3, CMP3, HEMDF, LIPA4 #### [facility] [address] [place] [address] Bilirubin,Urine Negative Normal Negative [facility] Comment on above: Result Comment: . Performed By: #### A MY3, CMP3, HEMDF, LIPA4 #### [facility] [address] [place] [address] Color (U) YELLOW Normal Lt. Yellow [facility] Comment on above: Result Comment: . Performed By: #### A MY3, CMP3, HEMDF, LIPA4 #### [facility] [address] [place] [address] Glucose Ql (U) Normal Normal Normal (<70) [facility] Comment on above: Result Comment: . Performed By: #### A MY3, CMP3, HEMDF, LIPA4 #### [facility] [address] [place] [address] Ketone,Urine Negative Normal Negative [facility] Comment on above: Result Comment: . Performed By: #### A MY3, CMP3, HEMDF, LIPA4 #### [facility] [address] [place] [address] Leukocytes,Urine Negative Normal Negative [facility] Comment on above: Result Comment: . Performed By: #### A MY3, CMP3, HEMDF, LIPA4 #### [facility] [address] [place] [address] Nitrites,Urine Negative Normal Negative [facility] Comment on above: Result Comment: . Performed By: #### A MY3, CMP3, HEMDF, LIPA4 #### [facility] [address] [place] [address] Occult Blood,Urine Negative Normal Negative [facility] Comment on above: Result Comment: . Performed By: #### A MY3, CMP3, HEMDF, LIPA4 #### [facility] [address] [place] [address] pH,Urine 6.5 Normal 5.0-8.0 [facility] Comment on above: Result Comment: . Performed By: #### A MY3, CMP3, HEMDF, LIPA4 #### [facility] [address] [place] [address] Protein (U) [Mass/Vol] 20 mg/dL Abnormal Negative [facility] Comment on above: Result Comment: . Performed By: #### A MY3, CMP3, HEMDF, LIPA4 #### [facility] [address] [place] [address] Specific [place],Urine > 1.030 Abnormal 1.005 - 1.030 [facility] Comment on above: Result Comment: . Performed By: #### A MY3, CMP3, HEMDF, LIPA4 #### [facility] [address] [place] [address] Urobilinogen,Urine Normal Normal Normal (0-1) [facility] Comment on above: Result Comment: . Performed By: #### A MY3, CMP3, HEMDF, LIPA4 #### [facility] [address] [place] [address] Creatinine, Ur Randomon 09-0 Creatinine, Ur Random 88.1 mg/dL Normal No Range [facility] Comment on above: Performed By: #### A DDON #### [facility] [address] [place], [place] Lipaseon 06-02-2021 Lipase [Catalytic activity/Vol] 2286 U/L High 23-300 [facility] Comment on above: Performed By: #### P T, RENL3 #### [facility] [address], [place] Magnesiumon 06-02-2021 Magnesium [Mass/Vol] 2.5 mg/dL High 1.6-2.3 [facility] Comment on above: Performed By: #### P T, RENL3 #### [facility] [address] [place], [place] Osmolality,Urineon 1 Osmolality,Urine 508 mosm/kg Normal 300-1000 [facility] Comment on above: Performed By: #### A DDON #### [facility] [address] [place], [place] Potassium, Ur Randomon 06-02 Potassium [Moles/Vol] 52 mmol/L Normal No Range [facility] Comment on above: Performed By: #### A DDON #### [facility] [address] [place], [place] Protein, Ur Randomon 021 Protein, Ur Random 45 mg/dL High No Range [facility] Comment on above: Performed By: #### A DDON #### [facility] [address] [place], [place] Prothrombin Timeon 1 INR 1.3 High 0.9-1.1 [facility] Comment on above: Result Comment: Tray mmended Anticoagulant Therapy: SEE BELOW ----- INR of 2.0 - 3.0 : - Prophylaxis of Venous Thrombosis (high-risk surgery) - Treatment of Venous Thrombosis - Treatment of Pulmonary Embolism (Includes tissue heart valves, Acute Myocardial Infarction to prevent systemic embolism, Valvular Heart Disease, and Atrial Fibrillation) ----- INR of 2.5 - 3.5 : - Mechanical Prosthetic Valves (high risk) - If oral anticoagulant therapy is used to prevent Myocardial Infarction Performed By: #### P T, RENL3 #### [facility] [address] [place], [place] PT Coag (PPP) [Time] 13.4 s High 9.0-12.0 [facility] Comment on above: Result Comment: . Performed By: #### P T, RENL3 #### [facility] [address] [place], [place] Renal Functionon 06-02-2021 Calcium [Mass/Vol] 8.9 mg/dL Normal 8.4-10.4 [facility] Comment on above: Performed By: #### P T, RENL3 #### [address] [place], [place] Phosphate [Mass/Vol] 2.2 mg/dL Low 2.5-4.5 [facility] Comment on above: Performed By: #### P T, RENL3 #### [address] [place], [place] Anion gap [Moles/Vol] 4 mmol/L Normal 3-13 [facility] Comment on above: Performed By: #### P T, RENL3 #### [address] [place], [place] CO2 [Moles/Vol] 27 mmol/L Normal 22-30 [facility] Comment on above: Performed By: #### P T, RENL3 #### [address] [place], [place] Creatinine [Mass/Vol] 0.61 mg/dL Normal 0.52-1.25 [facility] Comment on above: Performed By: #### P T, RENL3 #### [address] [place], [place] GFR/1.73 sq M.predicted among blacks MDRD (S/P/Bld) [Vol rate/Area] mL/min/{1.73_m2} Normal >60 [facility] Comment on above: Performed By: #### P T, RENL3 #### [facility] [address] [place], [place] GFR/1.73 sq M.predicted among non-blacks MDRD (S/P/Bld) [Vol rate/Area] 82.9 mL/min/{1.73_m2} Normal >60 [facility] Comment on above: Result Comment: KDIG O guidelines provide the following GFR categories: Stage GFR(ml/min/1.73 m2) Terms G1 >=90 Normal or high G2 60-89 Mildly decreased* G3a 45-59 Mildly to moderately decreased G3b 30-44 Moderately to severely decreased G4 15-29 Severely decreased G5 <15 Kidney failure *Relative to young adult level. In the absence of evidence of kidney damage, neither GFR category G1 nor G2 fulfill the criteria for CKD. The CKD-EPI equation is validated in individuals 18 years of age and older. Currently the best equation for estimating glomerular filtration rate (GFR) from serum creatinine in children is the Bedside Lawson equation. It is less accurate in patients with extremes of muscle mass, restriction of dietary protein, ingestion of creatine, extra-renal metabolism of creatinine, or treatment with medications that affect renal tubular creatinine secretion. Performed By: #### P T RENL3 #### [address] [place], [place] Glucose [Mass/Vol] 118 mg/dL High 70-100 [facility] Comment on above: Performed By: #### P T RENL3 #### [address] [place], [place] Urea nitrogen [Mass/Vol] 10 mg/dL Normal 9-20 [facility] Comment on above: Performed By: #### P T RENL3 #### [address] [place], [place] Albumin [Mass/Vol] 3.4 g/dL Low 3.5-5.0 [facility] Comment on above: Performed By: #### P T RENL3 #### [address] [place], [place] Chloride [Moles/Vol] 97 mmol/L Low 98-107 [facility] Comment on above: Performed By: #### P T RENL3 #### [place] [address] [place], [place] Potassium [Moles/Vol] 4.1 mmol/L Normal 3.5-5.1 [facility] Comment on above: Performed By: #### P T, RENL3 #### [facility] [address] [place], [place] Sodium [Moles/Vol] 127 mmol/L Low 135-145 [facility] Comment on above: Performed By: #### P T, RENL3 #### [facility] [address], [place] Sodium, Ur Randomon 06-02-20 21 Sodium [Moles/Vol] 24 mmol/L Low 30-90 [facility] Comment on above: Performed By: #### A DDON #### [facility] [address] [place], [place] Triglycerideon 06-02-2021 Triglyceride [Mass/Vol] 57 mg/dL Normal <150 [facility] Comment on above: Performed By: #### P T, RENL3 #### [facility] [address] [place], [place] US Abdomen Limitedon 021 US Abdomen Limited Patient Name: HELEN GUTIERREZ Ultrasound ACCESSION EXAM DATE/TIME PROCEDURE ORDERING PROVIDER [id number] 06/02/2021 14:47 EDT US Abdomen Limited [id number] DEANA JORGE ALBERTO CPT code 02066 Reason For Exam (US Abdomen Limited) elevated LFTs, lipase, eval for ductal dilation Report EXAMINATION: Right Upper Quadrant Ultrasound. COMPARISON: None. REASON FOR STUDY: Elevated liver function tests; evaluation for ductal dilatation. TECHNIQUE: Real-time morrison scale and supplemental color doppler imaging was performed transabdominally. FINDINGS: Liver is uniformly normal in echotexture. Pancreas appears normal as demonstrated. Right kidney measures 10.4 cm in length; there is moderate cortical thinning. No free intraperitoneal fluid is noted. Intrahepatic bile ducts are dilated. Common duct measures 16.0 mm in diameter. Gallbladder had been previously removed. CONCLUSIONS: 1. Postcholecystectomy biliary ductal dilatation which may be on the basis of reservoir phenomenon. 2. No hepatic parenchymal abnormality demonstrated. 3. Moderate right renal cortical atrophy. Report Dictated on Final Dictated: 06/02/2021 3:29 pm Dictating Physician: MD EVANS B NELSON Signed Date and Time: 06/02/2021 3:32 pm Signed by: MD EVANS B NELSON Transcribed Date and Time: 06/02/2021 3:29 Normal [facility] Acetaminophenon 06-01-2021 Acetaminophen [Mass/Vol] ug/mL Normal 10.0-30.0 [facility] Comment on above: Performed By: #### A MY3, CMP3, HEMDF, LIPA4 #### [facility] [address] [place] [address] Add on test from HISon 06-01 Add on test from HIS Accepted Normal [facility] Comment on above: Result Comment: Spec imen available & acceptable for analysis. Performed By: #### A MY3, CMP3, HEMDF, LIPA4 #### [facility] [address] [place] [address] CR Abdomen Series w/ Chest 1 Viewon 06-01-2021 CR Abdomen Series w/ Chest 1 View Patient Name: HELEN LIEBERMAN Diagnostic Radiology ACCESSION EXAM DATE/TIME PROCEDURE ORDERING PROVIDER [id number] 06/01/2021 19:13 EDT CR Abdomen Series w/ MD TREVIN, MARI Chest 1 View CPT code 01187 Reason For Exam (CR Abdomen Series w/ Chest 1 View) abdominal pain Report CLINICAL INFORMATION: Abdominal pain and distention. Epigastric pain. Supine and lateral decubitus views of the abdomen and a chest radiograph are provided. The examination is compared to a previous study dated 12/28/2017. FINDINGS: Air and stool are identified in nondistended loops of colon to the level of the rectum. There are no significant air-fluid levels. No free air is seen. The lungs are free of infiltrate or pleural effusion. IMPRESSION: 1. Nonobstructive bowel gas pattern. 2. No free air. Report Dictated on Final Dictating Physician: MD MYERS JEFFREY Signed Date and Time: 06/01/2021 7:34 pm Signed by: MD MYERS JEFFREY Transcribed Date and Time: 06/01/2021 7:35 Normal [facility] CT Abdomen/Pelvis w/ Contras ton 06-01-2021 CT Abdomen/Pelvis w/ Contrast Patient Name: HELEN LIEBERMAN Computed Tomography ACCESSION EXAM DATE/TIME PROCEDURE ORDERING PROVIDER [id number] 06/01/2021 20:[address] Abdomen/Pelvis w/ IV MD TREVIN, MARI Contrast (IV Onl CPT code 44041 Q9967 Reason For Exam (CT Abdomen/Pelvis w/ IV Contrast (IV Onl) abdominal pain Report CLINICAL INFORMATION: Abdominal pain extending into the pelvis. Nausea and vomiting. CT ABDOMEN: 3 mm axial cuts are obtained from the dome of the liver through the iliac crests with 75 mL Isovue IV contrast. The examination is compared to a previous study dated 01/07/2021. FINDINGS: Again seen is a sizable duodenal diverticulum. However, severe inflammatory changes have developed about this finding. There is bowel wall thickening. Inflammatory changes are noted in the surrounding fat with a small amount of fluid extending into the right paracolic gutter. There are no loculated collections to suggest a tammi abscess. No free air is seen. The lung bases are included on the examination and demonstrate no focal infiltrates or effusions. The heart size is within normal limits. The liver and spleen are homogeneous in their attenuation without focal abnormality. The gallbladder is surgically absent. There is moderate intra and extrahepatic biliary dilatation. The common bile duct spans 1.3 cm. This is likely physiologic status post cholecystectomy and has not significant changed when compared to the previous study. The pancreas and adrenal glands are normal. Both kidneys are identified in their cortical phase. There is no evidence of hydronephrosis or hydroureter. IMPRESSION: 1. Duodenal diverticulum. Significant inflammatory changes and a small amount of fluid have developed about the diverticulum. The findings are consistent with focal duodenitis or ulcer. 2. Inflammatory changes and a small amount of extend into the right paracolic gutter. 3. There are no loculated collections to suggest an abscess. 4. Intra and extrahepatic biliary dilatation. This is unchanged from the prior study and is likely physiologic status post cholecystectomy. CT PELVIS: 3 mm axial cuts are obtained from the iliac crests through the symphysis pubis with 75 mL Isovue IV contrast. The examination is compared to a previous study dated 01/07/2021. FINDINGS: There are nondistended loops of small bowel. Air and stool are identified within the colon to the level of the rectum. There is no evidence of obstruction. The distal ureters and bladder are normal. Sagittal reconstructed Computed Tomography Report images demonstrate an old T12 compression fracture. This has lost approximately 30% of its height centrally and anteriorly. IMPRESSION: 1. 1. Duodenal diverticulum. Significant inflammatory changes and a small amount of fluid have developed about the diverticulum. The findings are consistent with focal duodenitis or ulcer. 2. Inflammatory changes and a small amount of extend into the right paracolic gutter. 3. There are no loculated collections to suggest an abscess. 4. Intra and extrahepatic biliary dilatation. This is unchanged from the prior study and is likely physiologic status post cholecystectomy. 5. Old T12 compression fracture. Report Dictated on Final Dictating Physician: MD MYERS JEFFREY Signed Date and Time: 06/01/2021 8:46 pm Signed by: MD MYERS JEFFREY Transcribed Date and Time: 06/01/2021 8:47 Normal [facility] Comp Metabolic Panelon 06-01 ALP [Catalytic activity/Vol] 147 U/L High 38-126 [facility] Comment on above: Performed By: #### C MP3 #### [facility] [address] [place] [address] Performed By: #### A CET4, CMP3, HEMDF, LIPA4, LACT3, MG3 #### [facility] [address] [place] [address] ALT [Catalytic activity/Vol] 354 U/L High 0-34 [facility] Comment on above: Result Comment: The ALT test is performed by an updated assay method. Please note that the reference intervals have been changed and are now sex specific. Performed By: #### C MP3 #### [facility] [address] [place] [address] Performed By: #### A CET4, CMP3, HEMDF, LIPA4, LACT3, MG3 #### [facility] [address] [place] [address] AST [Catalytic activity/Vol] 317 U/L High 15-46 [facility] Comment on above: Performed By: #### C MP3 #### [facility] [address] [place] [address] Performed By: #### A CET4, CMP3, HEMDF, LIPA4, LACT3, MG3 #### [facility] [address] [place] [address] Calcium [Mass/Vol] 9.6 mg/dL Normal 8.4-10.4 [facility] Comment on above: Performed By: #### C MP3 #### [facility] [address] [place] [address] Performed By: #### A CET4, CMP3, HEMDF, LIPA4, LACT3, MG3 #### [facility] [address] [place] [address] Glucose [Mass/Vol] 141 mg/dL High 70-100 [facility] Comment on above: Performed By: #### C MP3 #### [facility] [address] [place] [address] Performed By: #### A CET4, CMP3, HEMDF, LIPA4, LACT3, MG3 #### [facility] [address] [place] [address] Urea nitrogen [Mass/Vol] 12 mg/dL Normal 7-20 [facility] Comment on above: Performed By: #### C MP3 #### [facility] [address] [place] [address] Performed By: #### A CET4, CMP3, HEMDF, LIPA4, LACT3, MG3 #### [facility] [address] [place] [address] Anion gap [Moles/Vol] 9 mmol/L Normal 3-13 [facility] Comment on above: Performed By: #### C MP3 #### [facility] [address] [place] [address] Performed By: #### A CET4, CMP3, HEMDF, LIPA4, LACT3, MG3 #### [facility] [address] [place] [address] Bilirubin [Mass/Vol] 3.1 mg/dL High 0.2-1.3 [facility] Comment on above: Performed By: #### C MP3 #### [address] [place] [address] Performed By: #### A CET4, CMP3, HEMDF, LIPA4, LACT3, MG3 #### [facility] [address] [place] [address] CO2 [Moles/Vol] 23 mmol/L Normal 22-30 [facility] Comment on above: Performed By: #### C MP3 #### [address] [place] [address] Performed By: #### A CET4, CMP3, HEMDF, LIPA4, LACT3, MG3 #### [address] [place] [address] Creatinine [Mass/Vol] 0.73 mg/dL Normal 0.52-1.25 [facility] Comment on above: Performed By: #### C MP3 #### [address] [place] [address] Performed By: #### A CET4, CMP3, HEMDF, LIPA4, LACT3, MG3 #### [facility] [address] [place] [address] GFR/1.73 sq M.predicted among blacks MDRD (S/P/Bld) [Vol rate/Area] 87.3 mL/min/{1.73_m2} Normal >60 [facility] Comment on above: Performed By: #### C MP3 #### [facility] [address] [place] [address] Performed By: #### A CET4, CMP3, HEMDF, LIPA4, LACT3, MG3 #### [address] [place] [address] GFR/1.73 sq M.predicted among non-blacks MDRD (S/P/Bld) [Vol rate/Area] 75.3 mL/min/{1.73_m2} Normal >60 [facility] Comment on above: Result Comment: KDIG O guidelines provide the following GFR categories: Stage GFR(ml/min/1.73 m2) Terms G1 >=90 Normal or high G2 60-89 Mildly decreased* G3a 45-59 Mildly to moderately decreased G3b 30-44 Moderately to severely decreased G4 15-29 Severely decreased G5 <15 Kidney failure *Relative to young adult level. In the absence of evidence of kidney damage, neither GFR category G1 nor G2 fulfill the criteria for CKD. The CKD-EPI equation is validated in individuals 18 years of age and older. Currently the best equation for estimating glomerular filtration rate (GFR) from serum creatinine in children is the Bedside Lawson equation. It is less accurate in patients with extremes of muscle mass, restriction of dietary protein, ingestion of creatine, extra-renal metabolism of creatinine, or treatment with medications that affect renal tubular creatinine secretion. Performed By: #### C MP3 #### [address] [place] [address] Performed By: #### A CET4, CMP3, HEMDF, LIPA4, LACT3, MG3 #### [facility] [address] [place] [address] Protein [Mass/Vol] 7.1 g/dL Normal 6.3-8.2 [facility] Comment on above: Performed By: #### C MP3 #### [address] [place] [address] Performed By: #### A CET4, CMP3, HEMDF, LIPA4, LACT3, MG3 #### [address] [place] [address] Potassium [Moles/Vol] 3.3 mmol/L Low 3.5-5.1 [facility] Comment on above: Performed By: #### C MP3 #### [facility] [address] [place] [address] Performed By: #### A CET4, CMP3, HEMDF, LIPA4, LACT3, MG3 #### [facility] [address] [place] [address] Sodium [Moles/Vol] 123 mmol/L Low 135-145 [facility] Comment on above: Performed By: #### C MP3 #### [facility] [address] [place] [address] Performed By: #### A CET4, CMP3, HEMDF, LIPA4, LACT3, MG3 #### [facility] [address] [place] [address] Albumin [Mass/Vol] 4.1 g/dL Normal 3.5-5.0 [facility] Comment on above: Performed By: #### C MP3 #### [facility] [address] [place] [address] Performed By: #### A CET4, CMP3, HEMDF, LIPA4, LACT3, MG3 #### [facility] [address] [place] [address] Chloride [Moles/Vol] 91 mmol/L Low 98-107 [facility] Comment on above: Performed By: #### C MP3 #### [address] [place] [address] Performed By: #### A CET4, CMP3, HEMDF, LIPA4, LACT3, MG3 #### [facility] [address] [place] [address] Hemogram w/ Autodiffon 06-01 Abs Baso Cnt 0.0 10*3/uL Normal 0.0-0.2 [facility] Comment on above: Performed By: #### A CET4, CMP3, HEMDF, LIPA4, LACT3, MG3 #### [facility] [address] [place] [address] Abs Neutrophile Cnt 18.5 10*3/uL High 1.8-7.0 [facility] Comment on above: Performed By: #### A CET4, CMP3, HEMDF, LIPA4, LACT3, MG3 #### [facility] [address] [place] [address] Basophils/100 WBC (Bld) 0.0 % Normal 0.0-2.0 [facility] Comment on above: Performed By: #### A CET4, CMP3, HEMDF, LIPA4, LACT3, MG3 #### [facility] [address] [place] [address] Eosinophils (Bld) [#/Vol] 0.0 10*3/uL Normal 0.0-0.5 [facility] Comment on above: Performed By: #### A CET4, CMP3, HEMDF, LIPA4, LACT3, MG3 #### [facility] [address] [place] [address] Eosinophils/100 WBC (Bld) 0.0 % Low 1.0-6.0 [facility] Comment on above: Performed By: #### A CET4, CMP3, HEMDF, LIPA4, LACT3, MG3 #### [facility] [address] [place] [address] Erythrocyte distribution width (RBC) [Ratio] 12.5 % Normal 11.5-14.5 [facility] Comment on above: Performed By: #### A CET4, CMP3, HEMDF, LIPA4, LACT3, MG3 #### [facility] [address] [place] [address] Granulocytes/100 WBC (Bld) 94.4 % High 40.0-80.0 [facility] Comment on above: Performed By: #### A CET4, CMP3, HEMDF, LIPA4, LACT3, MG3 #### [facility] [address] [place] [address] Hematocrit (Bld) [Volume fraction] 39.3 % Normal 35.0-47.0 [facility] Comment on above: Performed By: #### A CET4, CMP3, HEMDF, LIPA4, LACT3, MG3 #### [facility] [address] [place] [address] Hemoglobin (Bld) [Mass/Vol] 13.9 g/dL Normal 11.7-16.0 [facility] Comment on above: Performed By: #### A CET4, CMP3, HEMDF, LIPA4, LACT3, MG3 #### [facility] [address] [place] [address] Lymphocytes (Bld) [#/Vol] 0.3 10*3/uL Low 1.0-4.3 [facility] Comment on above: Performed By: #### A CET4, CMP3, HEMDF, LIPA4, LACT3, MG3 #### [facility] [address] [place] [address] Lymphocytes/100 WBC (Bld) 1.8 % Low 20.0-40.0 [facility] Comment on above: Performed By: #### A CET4, CMP3, HEMDF, LIPA4, LACT3, MG3 #### [facility] [address] [place] [address] MCH (RBC) [Entitic mass] 32.4 pg Normal 26.0-34.0 [facility] Comment on above: Performed By: #### A CET4, CMP3, HEMDF, LIPA4, LACT3, MG3 #### [facility] [address] [place] [address] MCHC 35.4 % Normal 32.0-36.0 [facility] Comment on above: Performed By: #### A CET4, CMP3, HEMDF, LIPA4, LACT3, MG3 #### [facility] [address] [place] [address] MCV (RBC) [Entitic vol] 91.4 fL Normal 79.0-98.0 [facility] Comment on above: Performed By: #### A CET4, CMP3, HEMDF, LIPA4, LACT3, MG3 #### [facility] [address] [place] [address] Monocytes (Bld) [#/Vol] 0.8 10*3/uL Normal 0.0-0.8 [facility] Comment on above: Performed By: #### A CET4, CMP3, HEMDF, LIPA4, LACT3, MG3 #### [facility] [address] [place] [address] Monocytes/100 WBC (Bld) 3.8 % Normal 2.0-10.0 [facility] Comment on above: Performed By: #### A CET4, CMP3, HEMDF, LIPA4, LACT3, MG3 #### [facility] [address] [place] [address] Platelet mean volume (Bld) [Entitic vol] 6.9 fL Low 7.4-10.4 [facility] Comment on above: Performed By: #### A CET4, CMP3, HEMDF, LIPA4, LACT3, MG3 #### [facility] [address] [place] [address] Platelets (Bld) [#/Vol] 380 10*3/uL Normal 140-440 [facility] Comment on above: Performed By: #### A CET4, CMP3, HEMDF, LIPA4, LACT3, MG3 #### [facility] [address] [place] [address] RBC (Bld) [#/Vol] 4.30 10*6/uL Normal 3.80-5.20 [facility] Comment on above: Performed By: #### A CET4, CMP3, HEMDF, LIPA4, LACT3, MG3 #### [facility] [address] [place] [address] WBC (Bld) [#/Vol] 19.6 10*3/uL High 3.6-10.7 [facility] Comment on above: Performed By: #### A CET4, CMP3, HEMDF, LIPA4, LACT3, MG3 #### [facility] [address] [place] [address] Lactic Acidon 06-01-2021 Lactate [Moles/Vol] 1.1 mmol/L Normal 0.7-2.0 [facility] Comment on above: Performed By: #### A CET4, CMP3, HEMDF, LIPA4, LACT3, MG3 #### [facility] [address] [place] [address] Lipaseon 06-01-2021 Lipase [Catalytic activity/Vol] 5709 U/L High 23-300 [facility] Comment on above: Performed By: #### A CET4, CMP3, HEMDF, LIPA4, LACT3, MG3 #### [facility] [address] [place] [address] Magnesiumon 06-01-2021 Magnesium [Mass/Vol] 1.5 mg/dL Low 1.6-2.3 [facility] Comment on above: Performed By: #### A MY3, CMP3, HEMDF, LIPA4 #### [facility] [address] [place] [address] CR Spine Lumbosacral 4+ View son 05-07-2021 CR Spine Lumbosacral 4+ Views Patient Name: HELEN LIEBERMAN Diagnostic Radiology ACCESSION EXAM DATE/TIME PROCEDURE ORDERING PROVIDER [id number] 05/07/2021 14:32 EDT CR Spine Lumbosacral 4+ MD ROSENDO, RICCI RAMOS CPT code 84683 Reason For Exam (CR Spine Lumbosacral 4+ Views) weakness of bilateral legs Report EXAMINATION: LUMBAR SPINE RADIOGRAPH CLINICAL INDICATION: Complains of increasing difficulty walking for several years. Weakness. TECHNIQUE: Frontal, oblique, lateral, and coned-down views of the lumbar spine. COMPARISON: Lumbar spine radiograph 06/08/2013. 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 Grade 1 anterolisthesis of L3 on L4, L4 and L5, and L5 on S1. Redemonstration of compression deformity of the T12 vertebral body, unchanged in degree compared to prior CT abdomen pelvis 01/07/2021. Residual vertebral body heights are preserved. Multilevel disc space narrowing with osteophyte formation predominantly involving the upper lumbar spine. There is severe narrowing of bilateral neural foramina at L4-L5 predominantly due to the anterolisthesis. There is also multilevel narrowing of the left neural foramina secondary to the rightward convex curvature of the lumbar spine. Mild degenerative changes of bilateral sacroiliac joints. There is dense extensive atherosclerotic disease of the abdominal aorta. 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 Severe bilateral neural foraminal narrowing at L4-L5 secondary to grade 1 anterolisthesis. Chronic compression deformity of the T12 vertebral body. No acute osseous abnormality. Dense atherosclerotic disease of the abdominal aorta. Diagnostic Radiology Report Report Dictated on Final Dictating Physician: MD KYLE, CLIFTON HSU Signed Date and Time: 05/08/2021 11:51 am Signed by: MD WRIGHT WASSIM OSAMA Transcribed Date and Time: 05/08/2021 11:52 Normal [facility] Gliadin Abson 02-26-2021 Gliadin Ab, IgA 4 Units Normal 0-19 [facility] Comment on above: Result Comment: INTE RPRETIVE INFORMATION: Deamidated Gliadin Peptide (DGP) Ab, IgA 19 Units or less: ........... Negative 20-30 Units: ................ Weak Positive 31 Units or greater: ........ Positive Performed By: #### A MY3, CMP3, HEMDF, LIPA4 #### [facility] [address] [place] [address] Gliadin Ab, IgG 2 Units Normal 0-19 [facility] Comment on above: Result Comment: INTE RPRETIVE INFORMATION: Deamidated Gliadin Peptide (DGP) Ab, IgG 19 Units or less: ........... Negative 20-30 Units: ................ Weak Positive 31 Units or greater: ........ Positive Performed By: [employer] [address] [place] [id number] Assistant Administrator: Larissa Meza MD Performed By: #### A MY3, CMP3, HEMDF, LIPA4 #### [facility] [address] [place] [address] TTG, IgAon 02-26-2021 TTG, IgA < 2 Normal 0-3 [facility] Comment on above: Result Comment: INTE RPRETIVE INFORMATION: Tissue Transglutaminase (tTG) Antibody, IgA 3 U/mL or less: Negative 4-10 U/mL: Weak Positive 11 U/mL or greater: Positive Presence of the tissue transglutaminase (tTG) IgA antibody is associated with glutensensitive enteropathies such as celiac disease and dermatitis herpetiformis. tTG IgA antibody concentrations greater than 40 U/mL usually correlate with results of duodenal biopsies consistent with a diagnosis of celiac disease. For antibody concentrations greater or equal to 4 U/mL but less than or equal to 40 U/mL, additional testing for endomysial (ARIE) IgA concentrations may improve the positive predictive value for disease. Performed By: [employer] [address] [place] [address] Assistant Administrator: Larissa Meza MD Performed By: #### A MY3, CMP3, HEMDF, LIPA4 #### [employer] [facility] [address] [place] [address] CBC Auto DifferentialOrdered By: Larissa Wynn on 02-24-2021 Absolute Baso # 0.0 10*3/uL 0.0 - 0.2 10*3/uL [employer] Work Phone: Absolute Neut # 3.6 10*3/uL 1.8 - 7.0 10*3/uL [employer] Work Phone: Basophils/100 WBC (Bld) 0.4 % 0.0 - 2.0 % [employer] Work Phone: Eosinophils (Bld) [#/Vol] 0.1 10*3/uL 0.0 - 0.5 10*3/uL [employer] Work Phone: Eosinophils/100 WBC (Bld) 2.1 % 1.0 - 6.0 % [employer] Work Phone: Granulocytes/100 WBC (Bld) 67.0 % 40.0 - 80.0 % [employer] Work Phone: Hematocrit (Bld) [Volume fraction] 36.0 % 35.0 - 47.0 % [employer] Work Phone: Hemoglobin.gastrointest inal spec 1 Ql (Stl) 12.5 g/dL 11.7 - 16.0 g/dL [employer] Work Phone: 22 Interpretation and review of laboratory results Abnormal [employer] Work Phone: Lymphocytes (Bld) [#/Vol] 1.1 10*3/uL 1.0 - 4.3 10*3/uL [facility] Work Phone: 1) Lymphocytes/100 WBC (Bld) 20.0 % 20.0 - 40.0 % [facility] Work Phone: 1 MCH (RBC) [Entitic mass] 33.2 pg 26.0 - 34.0 pg [facility] Work Phone: MCHC (RBC) [Mass/Vol] 34.6 % 32.0 - 36.0 % [facility] Work Phone: MCV (RBC) [Entitic vol] 95.9 fL 79.0 - 98.0 fL [facility] Work Phone: Monocytes (Bld) [#/Vol] 0.6 10*3/uL 0.0 - 0.8 10*3/uL [facility] Work Phone: Monocytes/100 WBC (Bld) 10.5 % High 2.0 - 10.0 % [employer] Work Phone: Platelet distribution width (Bld) [Ratio] 12.7 % 11.5 - 14.5 % [employer] Work Phone: Platelet mean volume (Bld) [Entitic vol] 6.8 fL Low 7.4 - 10.4 fL [facility] Work Phone: Platelets (Bld) [#/Vol] 304 10*3/uL 140 - 440 10*3/uL [facility] Work Phone: RBC (Bld) [#/Vol] 3.76 10*6/uL Low 3.80 - 5.2 0 10*6/uL [facility] Work Phone: WBC (Bld) [#/Vol] 5.3 10*3/uL 3.6 - 10.7 10*3/uL [facility] Work Phone: Test Performed by [facility], [facility] [address] , [place], [place] [address] [facility] Work Phone: [employer] Work Phone: Comp Metabolic Panelon 02-24 ALP [Catalytic activity/Vol] 50 U/L Normal 38-126 [facility] Comment on above: Performed By: #### A MY3, CMP3, HEMDF, LIPA4 #### [facility] [address] [place] [address] ALT [Catalytic activity/Vol] 14 U/L Normal 0-34 [facility] Comment on above: Result Comment: The ALT test is performed by an updated assay method. Please note that the reference intervals have been changed and are now sex specific. Performed By: #### A MY3, CMP3, HEMDF, LIPA4 #### [facility] [address] [place] [address] Calcium [Mass/Vol] 9.4 mg/dL Normal 8.4-10.4 [facility] Comment on above: Performed By: #### A MY3, CMP3, HEMDF, LIPA4 #### [facility] [address] [place] [address] Glucose [Mass/Vol] 101 mg/dL High 70-100 [facility] Comment on above: Performed By: #### A MY3, CMP3, HEMDF, LIPA4 #### [facility] [address] [place] [address] Urea nitrogen [Mass/Vol] 12 mg/dL Normal 7-20 [facility] Comment on above: Performed By: #### A MY3, CMP3, HEMDF, LIPA4 #### [facility] [address] [place] [address] Anion gap [Moles/Vol] 5 mmol/L Normal 3-13 [facility] Comment on above: Performed By: #### A MY3, CMP3, HEMDF, LIPA4 #### [facility] [address] [place] [address] AST [Catalytic activity/Vol] 25 U/L Normal 15-46 [facility] Comment on above: Performed By: #### A MY3, CMP3, HEMDF, LIPA4 #### [facility] [address] [place] [address] Bilirubin [Mass/Vol] 1.0 mg/dL Normal 0.2-1.3 [facility] Comment on above: Performed By: #### A MY3, CMP3, HEMDF, LIPA4 #### [facility] [address] [place] [address] CO2 [Moles/Vol] 30 mmol/L Normal 22-30 [facility] Comment on above: Performed By: #### A MY3, CMP3, HEMDF, LIPA4 #### [facility] [address] [place] [address] Creatinine [Mass/Vol] 0.81 mg/dL Normal 0.52-1.25 [facility] Comment on above: Performed By: #### A MY3, CMP3, HEMDF, LIPA4 #### [facility] [address] [place] [address] GFR/1.73 sq M.predicted among blacks MDRD (S/P/Bld) [Vol rate/Area] 77.1 mL/min/{1.73_m2} Normal >60 [facility] Comment on above: Performed By: #### A MY3, CMP3, HEMDF, LIPA4 #### [facility] [address] [place] [address] GFR/1.73 sq M.predicted among non-blacks MDRD (S/P/Bld) [Vol rate/Area] 66.5 mL/min/{1.73_m2} Normal >60 [facility] Comment on above: Result Comment: KDIG O guidelines provide the following GFR categories: Stage GFR(ml/min/1.73 m2) Terms G1 >=90 Normal or high G2 60-89 Mildly decreased* G3a 45-59 Mildly to moderately decreased G3b 30-44 Moderately to severely decreased G4 15-29 Severely decreased G5 <15 Kidney failure *Relative to young adult level. In the absence of evidence of kidney damage, neither GFR category G1 nor G2 fulfill the criteria for CKD. The CKD-EPI equation is validated in individuals 18 years of age and older. Currently the best equation for estimating glomerular filtration rate (GFR) from serum creatinine in children is the Bedside Lawson equation. It is less accurate in patients with extremes of muscle mass, restriction of dietary protein, ingestion of creatine, extra-renal metabolism of creatinine, or treatment with medications that affect renal tubular creatinine secretion. Performed By: #### A MY3, CMP3, HEMDF, LIPA4 #### [facility] [address] [place] [address] Protein [Mass/Vol] 7.1 g/dL Normal 6.3-8.2 [facility] Comment on above: Performed By: #### A MY3, CMP3, HEMDF, LIPA4 #### [facility] [address] [place] [address] Chloride [Moles/Vol] 95 mmol/L Low 98-107 [facility] Comment on above: Performed By: #### A MY3, CMP3, HEMDF, LIPA4 #### [facility] [address] [place] [address] Potassium [Moles/Vol] 3.9 mmol/L Normal 3.5-5.1 [facility] Comment on above: Performed By: #### A MY3, CMP3, HEMDF, LIPA4 #### [facility] [address] [place] [address] Sodium [Moles/Vol] 130 mmol/L Low 135-145 [facility] Comment on above: Performed By: #### A MY3, CMP3, HEMDF, LIPA4 #### [facility] [address] [place] [address] Albumin [Mass/Vol] 4.1 g/dL Normal 3.5-5.0 [facility] Comment on above: Performed By: #### A MY3, CMP3, HEMDF, LIPA4 #### [facility] [address] [place] [address] Comprehensive Metabolic Pane lOrdered By: Larissa Wynn on 02-24-2021 Albumin [Mass/Vol] 4.1 g/dL 3.5 - 5.0 g/dL [facility] Work Phone: ALP (Bld) [Catalytic activity/Vol] 50 U/L 38 - 126 U/L [facility] Work Phone: ALT [Catalytic activity/Vol] 14 U/L 0 - 34 U/L [facility] Work Phone: Comment on above: The ALT test is perf ormed by an updated assay method. Please note that the reference intervals have been changed and are now sex specific. Anion gap [Moles/Vol] 5 mmol/L 3 - 13 mmol/L [facility] Work Phone: [phone] AST [Catalytic activity/Vol] 25 U/L 15 - 46 U/L [facility] Work Phone: [phone] Bilirubin [Mass/Vol] 1.0 mg/dL 0.2 - 1 .3 mg/dL [facility] Work Phone: [phone] Calcium [Mass/Vol] 9.4 mg/dL 8.4 - 10. 4 mg/dL [facility] Work Phone: [phone] Chloride [Moles/Vol] 95 mmol/L Low 98 - 10 7 mmol/L [facility] Work Phone: [phone] CO2 [Moles/Vol] 30 mmol/L 22 - 30 mmol/L [facility] Work Phone: [phone] Creatinine [Mass/Vol] 0.81 mg/dL 0.52 - 1.25 mg/dL [facility] Work Phone: [phone] EGFR IF NonAfrican [place]olan 66.5 mL/min >60 [facility] Work Phone: Comment on above: KDIGO guidelines pro vide the following GFR categories: Stage GFR(ml/min/1.73 m2) Terms G1 >=90 Normal or high G2 60-89 Mildly decreased* G3a 45-59 Mildly to moderately decreased G3b 30-44 Moderately to severely decreased G4 15-29 Severely decreased G5 <15 Kidney failure *Relative to young adult level. In the absence of evidence of kidney damage, neither GFR category G1 nor G2 fulfill the criteria for CKD. The CKD-EPI equation is validated in individuals 18 years of age and older. Currently the best equation for estimating glomerular filtration rate (GFR) from serum creatinine in children is the Bedside Lawson equation. It is less accurate in patients with extremes of muscle mass, restriction of dietary protein, ingestion of creatine, extra-renal metabolism of creatinine, or treatment with medications that affect renal tubular creatinine secretion. Free PSA/Total PSA [Mass fraction] 7.1 g/dL 6.3 - 8.2 g/dL [facility] Work Phone: [phone] GFR/1.73 sq M.predicted among blacks MDRD (S/P/Bld) [Vol rate/Area] 77.1 mL/min/{1.73_m2} >60 [facility] Work Phone: [phone] Glucose [Mass/Vol] 101 mg/dL High 70 - 100 mg/dL [facility] Work Phone: [phone] Interpretation and review of laboratory results Abnormal [facility] Work Phone: [phone] Potassium [Moles/Vol] 3.9 mmol/L 3.5 - 5.1 mmol/L [facility] Work Phone: [phone] Sodium [Moles/Vol] 130 mmol/L Low 135 - 145 mmol/L [facility] Work Phone: [phone] Urea nitrogen (BldV) [Mass/Vol] 12 mg/dL 7 - 20 mg/dL [facility] Work Phone: [phone] Test Performed by [facility], [address] , [place], [place] [address] Work Phone: [phone] [facility] Work Phone: [phone] Hemogram w/ Autodiffon 02-24 Abs Baso Cnt 0.0 10*3/uL Normal 0.0-0.2 [facility] Comment on above: Performed By: #### A MY3, CMP3, HEMDF, LIPA4 #### [facility] [address] [place] [address] Abs Neutrophile Cnt 3.6 10*3/uL Normal 1.8-7.0 [facility] Comment on above: Performed By: #### A MY3, CMP3, HEMDF, LIPA4 #### [facility] [address] [place] [address] Basophils/100 WBC (Bld) 0.4 % Normal 0.0-2.0 [facility] Comment on above: Performed By: #### A MY3, CMP3, HEMDF, LIPA4 #### [facility] [address] [place] [address] Eosinophils (Bld) [#/Vol] 0.1 10*3/uL Normal 0.0-0.5 [facility] Comment on above: Performed By: #### A MY3, CMP3, HEMDF, LIPA4 #### [facility] [address] [place] [address] Eosinophils/100 WBC (Bld) 2.1 % Normal 1.0-6.0 [facility] Comment on above: Performed By: #### A MY3, CMP3, HEMDF, LIPA4 #### [facility] [address] [place] [address] Erythrocyte distribution width (RBC) [Ratio] 12.7 % Normal 11.5-14.5 [facility] Comment on above: Performed By: #### A MY3, CMP3, HEMDF, LIPA4 #### [facility] [address] [place] [address] Granulocytes/100 WBC (Bld) 67.0 % Normal 40.0-80.0 [facility] Comment on above: Performed By: #### A MY3, CMP3, HEMDF, LIPA4 #### [facility] [address] [place] [address] Hematocrit (Bld) [Volume fraction] 36.0 % Normal 35.0-47.0 [facility] Comment on above: Performed By: #### A MY3, CMP3, HEMDF, LIPA4 #### [facility] [address] [place] [address] Hemoglobin (Bld) [Mass/Vol] 12.5 g/dL Normal 11.7-16.0 [facility] Comment on above: Performed By: #### A MY3, CMP3, HEMDF, LIPA4 #### [facility] [address] [place] [address] Lymphocytes (Bld) [#/Vol] 1.1 10*3/uL Normal 1.0-4.3 [facility] Comment on above: Performed By: #### A MY3, CMP3, HEMDF, LIPA4 #### [facility] [address] [place] [address] Lymphocytes/100 WBC (Bld) 20.0 % Normal 20.0-40.0 [facility] Comment on above: Performed By: #### A MY3, CMP3, HEMDF, LIPA4 #### [facility] [address] [place] [address] MCH (RBC) [Entitic mass] 33.2 pg Normal 26.0-34.0 [facility] Comment on above: Performed By: #### A MY3, CMP3, HEMDF, LIPA4 #### [facility] [address] [place] [address] MCHC 34.6 % Normal 32.0-36.0 [facility] Comment on above: Performed By: #### A MY3, CMP3, HEMDF, LIPA4 #### [facility] [address] [place] [address] MCV (RBC) [Entitic vol] 95.9 fL Normal 79.0-98.0 [facility] Comment on above: Performed By: #### A MY3, CMP3, HEMDF, LIPA4 #### [facility] [address] [place] [address] Monocytes (Bld) [#/Vol] 0.6 10*3/uL Normal 0.0-0.8 [facility] Comment on above: Performed By: #### A MY3, CMP3, HEMDF, LIPA4 #### [facility] [address] [place] [address] Monocytes/100 WBC (Bld) 10.5 % High 2.0-10.0 [facility] Comment on above: Performed By: #### A MY3, CMP3, HEMDF, LIPA4 #### [facility] [address] [place] [address] Platelet mean volume (Bld) [Entitic vol] 6.8 fL Low 7.4-10.4 [facility] Comment on above: Performed By: #### A MY3, CMP3, HEMDF, LIPA4 #### [facility] [address] [place] [address] Platelets (Bld) [#/Vol] 304 10*3/uL Normal 140-440 [facility] Comment on above: Performed By: #### A MY3, CMP3, HEMDF, LIPA4 #### [facility] [address] [place] [address] RBC (Bld) [#/Vol] 3.76 10*6/uL Low 3.80-5.20 [facility] Comment on above: Performed By: #### A MY3, CMP3, HEMDF, LIPA4 #### [facility] [address] [place] [address] WBC (Bld) [#/Vol] 5.3 10*3/uL Normal 3.6-10.7 [facility] Comment on above: Performed By: #### A MY3, CMP3, HEMDF, LIPA4 #### [facility] [address] [place] [address] CKon 01-07-2021 CK [Catalytic activity/Vol] 132 U/L Normal 30-170 [facility] Comment on above: Performed By: #### A MY3, CMP3, HEMDF, LIPA4 #### [facility] [address] [place] [address] CT Abdomen Pelvis W Contrast on 01-07-2021 Patient Name: HELEN GUTIERREZ Computed Tomography ACCESSION EXAM DATE/TIME PROCEDURE ORDERING PROVIDER [id number] 01/07/2021 17:[address] Abdomen/Pelvis w/ IV KODAK SALAZAR Contrast (IV Onl CPT code 89701 Q9967 Reason For Exam (CT Abdomen/Pelvis w/ IV Contrast (IV Onl) ABD PAIN AND VOMITING Report CLINICAL INFORMATION: Abdominal and pelvic pain. Nausea and vomiting. Prior cholecystectomy. CT ABDOMEN AND PELVIS WITH INTRAVENOUS CONTRAST: Contrast: Isovue-370, [address] ABDOMEN: Volume acquisition CT images are obtained from diaphragm to iliac crests following intravenous contrast only with axial, coronal and sagittal 2-D reconstructions. Oral contrast was withheld by request of the ordering physician. The absence of oral contrast reduces the sensitivity of the examination. Comparison is made to the examination of 12/28/2017. Images through the upper abdomen which included the lower chest demonstrate no significant abnormal pleural or parenchymal densities. There is atherosclerotic calcification of the left anterior descending and circumflex coronary arteries. The gallbladder is surgically absent. There is mild intrahepatic biliary dilatation similar to the prior examination most likely related to prior cholecystectomy. The common bile duct is dilated extending into the pancreas without calcified calculus or mass in the head of the pancreas also unchanged and likely related to prior cholecystectomy. The liver is otherwise unremarkable in size, configuration and density. The spleen, pancreas and kidneys are unremarkable in size, configuration and density. There is no hydronephrosis. There is no adrenal gland mass or enlargement. There is a mildly distended stomach containing a large amount of fluid. There is no visible abnormality of the small or large bowel. No ascites or retroperitoneal lymphadenopathy is seen. There are scattered distal descending colon diverticula without evidence of diverticulitis. No focal mass, fluid collection or inflammatory changes are identified. There is dense atherosclerotic calcification throughout a normal caliber abdominal aorta extending into the common iliac arteries. There are degenerative changes of the lumbar spine. CT PELVIS: Computed Tomography Report Volume acquisition CT images were obtained from the iliac crests to the symphysis pubis following intravenous contrast only with axial, coronal and sagittal 2-D reconstructions. Comparison is made to the same prior examination. There is a distended unopacified urinary bladder without calcified calculus or other visible abnormality. There is no abnormality of the postmenopausal uterus or adnexa. No focal mass or fluid collection is seen. There is no iliac or inguinal lymphadenopathy. There are multiple sigmoid colon diverticula without evidence of diverticulitis. No ascites or inflammatory changes are identified. IMPRESSION: 1. Intra-axial extrahepatic biliary dilatation, unchanged and likely related to prior cholecystectomy. 2. Mildly distended stomach containing fluid. 3. Nonspecific urinary bladder distention without other visible abnormality. 4. Descending and sigmoid colon diverticulosis without evidence of diverticulitis. 5. Dense atherosclerotic calcification throughout normal caliber abdominal aorta. 6. Atherosclerotic calcification in the left anterior descending and circumflex coronary arteries. 7. No evidence of mass, lymphadenopathy, inflammatory process or significant interval change. Report Dictated on Workstation: [id number] --- Final --- Dictating Physician: MD HAN HARLAN Signed Date and Time: 01/07/2021 5:31 pm Signed by: MD HAN HARLAN Transcribed Date and Time: 01/07/2021 5:33 [facility] Work Phone: [place], [facility] Incoming Radiology Results From [facility] - 01/07/2021 5:33 PM EDT Patient Name: [id number] Computed Tomography ACCESSION EXAM DATE/TIME PROCEDURE ORDERING PROVIDER [id number] 01/07/2021 17:[address] Abdomen/Pelvis w/ IV KODAK SALAZAR Contrast (IV Onl CPT code 73326 Q9967 Reason For Exam (CT Abdomen/Pelvis w/ IV Contrast (IV Onl) ABD PAIN AND VOMITING Report CLINICAL INFORMATION: Abdominal and pelvic pain. Nausea and vomiting. Prior cholecystectomy. CT ABDOMEN AND PELVIS WITH INTRAVENOUS CONTRAST: Contrast: Isovue-370, [address] ABDOMEN: Volume acquisition CT images are obtained from diaphragm to iliac crests following intravenous contrast only with axial, coronal and sagittal 2-D reconstructions. Oral contrast was withheld by request of the ordering physician. The absence of oral contrast reduces the sensitivity of the examination. Comparison is made to the examination of 12/28/2017. Images through the upper abdomen which included the lower chest demonstrate no significant abnormal pleural or parenchymal densities. There is atherosclerotic calcification of the left anterior descending and circumflex coronary arteries. The gallbladder is surgically absent. There is mild intrahepatic biliary dilatation similar to the prior examination most likely related to prior cholecystectomy. The common bile duct is dilated extending into the pancreas without calcified calculus or mass in the head of the pancreas also unchanged and likely related to prior cholecystectomy. The liver is otherwise unremarkable in size, configuration and density. The spleen, pancreas and kidneys are unremarkable in size, configuration and density. There is no hydronephrosis. There is no adrenal gland mass or enlargement. There is a mildly distended stomach containing a large amount of fluid. There is no visible abnormality of the small or large bowel. No ascites or retroperitoneal lymphadenopathy is seen. There are scattered distal descending colon diverticula without evidence of diverticulitis. No focal mass, fluid collection or inflammatory changes are identified. There is dense atherosclerotic calcification throughout a normal caliber abdominal aorta extending into the common iliac arteries. There are degenerative changes of the lumbar spine. CT PELVIS: Computed Tomography Report Volume acquisition CT images were obtained from the iliac crests to the symphysis pubis following intravenous contrast only with axial, coronal and sagittal 2-D reconstructions. Comparison is made to the same prior examination. There is a distended unopacified urinary bladder without calcified calculus or other visible abnormality. There is no abnormality of the postmenopausal uterus or adnexa. No focal mass or fluid collection is seen. There is no iliac or inguinal lymphadenopathy. There are multiple sigmoid colon diverticula without evidence of diverticulitis. No ascites or inflammatory changes are identified. IMPRESSION: 1. Intra-axial extrahepatic biliary dilatation, unchanged and likely related to prior cholecystectomy. 2. Mildly distended stomach containing fluid. 3. Nonspecific urinary bladder distention without other visible abnormality. 4. Descending and sigmoid colon diverticulosis without evidence of diverticulitis. 5. Dense atherosclerotic calcification throughout normal caliber abdominal aorta. 6. Atherosclerotic calcification in the left anterior descending and circumflex coronary arteries. 7. No evidence of mass, lymphadenopathy, inflammatory process or significant interval change. Report Dictated on Workstation: [id number] --- Final --- Dictating Physician: MD HAN HARLAN Signed Date and Time: 01/07/2021 5:31 pm Signed by: MD HAN HARLAN Transcribed Date and Time: 01/07/2021 5:33 [facility] Work Phone: CT Abdomen/Pelvis w/ Contras ton 01-07-2021 CT Abdomen/Pelvis w/ Contrast Patient [facility]: [facility] [id number] Computed Tomography ACCESSION EXAM DATE/TIME PROCEDURE ORDERING PROVIDER [id number] 01/07/2021 17:[address] Abdomen/Pelvis w/ IV KODAK SALAZAR Contrast (IV Onl CPT code 39453 Q9967 Reason For Exam (CT Abdomen/Pelvis w/ IV Contrast (IV Onl) ABD PAIN AND VOMITING Report CLINICAL INFORMATION: Abdominal and pelvic pain. Nausea and vomiting. Prior cholecystectomy. CT ABDOMEN AND PELVIS WITH INTRAVENOUS CONTRAST: Contrast: Isovue-370, [address] ABDOMEN: Volume acquisition CT images are obtained from diaphragm to iliac crests following intravenous contrast only with axial, coronal and sagittal 2-D reconstructions. Oral contrast was withheld by request of the ordering physician. The absence of oral contrast reduces the sensitivity of the examination. Comparison is made to the examination of 12/28/2017. Images through the upper abdomen which included the lower chest demonstrate no significant abnormal pleural or parenchymal densities. There is atherosclerotic calcification of the left anterior descending and circumflex coronary arteries. The gallbladder is surgically absent. There is mild intrahepatic biliary dilatation similar to the prior examination most likely related to prior cholecystectomy. The common bile duct is dilated extending into the pancreas without calcified calculus or mass in the head of the pancreas also unchanged and likely related to prior cholecystectomy. The liver is otherwise unremarkable in size, configuration and density. The spleen, pancreas and kidneys are unremarkable in size, configuration and density. There is no hydronephrosis. There is no adrenal gland mass or enlargement. There is a mildly distended stomach containing a large amount of fluid. There is no visible abnormality of the small or large bowel. No ascites or retroperitoneal lymphadenopathy is seen. There are scattered distal descending colon diverticula without evidence of diverticulitis. No focal mass, fluid collection or inflammatory changes are identified. There is dense atherosclerotic calcification throughout a normal caliber abdominal aorta extending into the common iliac arteries. There are degenerative changes of the lumbar spine. CT PELVIS: Computed Tomography Report Volume acquisition CT images were obtained from the iliac crests to the symphysis pubis following intravenous contrast only with axial, coronal and sagittal 2-D reconstructions. Comparison is made to the same prior examination. There is a distended unopacified urinary bladder without calcified calculus or other visible abnormality. There is no abnormality of the postmenopausal uterus or adnexa. No focal mass or fluid collection is seen. There is no iliac or inguinal lymphadenopathy. There are multiple sigmoid colon diverticula without evidence of diverticulitis. No ascites or inflammatory changes are identified. IMPRESSION: 1. Intra-axial extrahepatic biliary dilatation, unchanged and likely related to prior cholecystectomy. 2. Mildly distended stomach containing fluid. 3. Nonspecific urinary bladder distention without other visible abnormality. 4. Descending and sigmoid colon diverticulosis without evidence of diverticulitis. 5. Dense atherosclerotic calcification throughout normal caliber abdominal aorta. 6. Atherosclerotic calcification in the left anterior descending and circumflex coronary arteries. 7. No evidence of mass, lymphadenopathy, inflammatory process or significant interval change. Report Dictated on Workstation: [id number] Final Dictating Physician: MD HAN HARLAN Signed Date and Time: 01/07/2021 5:31 pm Signed by: MD HAN HARLAN Transcribed Date and Time: 01/07/2021 5:33 Normal [facility] CT Head WO Contraston 2020 Patient Name: HELEN GUTIERREZ Computed Tomography ACCESSION EXAM DATE/TIME PROCEDURE ORDERING PROVIDER [id number] 01/07/2021 15:[address] Head or Brain w/o KODAK SALAZAR Contrast CPT code 00046 Reason For Exam (CT Head or Brain w/o Contrast) confusion Report HEAD CT WITHOUT IV CONTRAST History: Confusion, headache Comparison: 04/24/2016 Technique: Multislice volume acquisition axial CT sections were obtained from the base to the vertex of the brain without IV contrast enhancement. Multiplanar sagittal and coronal reconstructed images also obtained. Findings: There is mild brain atrophy with prominent cortical sulci, fissures, and ventricles. There are bilateral periventricular and subcortical hypodensities suggesting chronic ischemic white matter changes. There is no intracranial hemorrhage, mass effect, or midline shift in the brain. The exam is limited without IV contrast enhancement. There are carotid siphons and vertebral arteries atherosclerotic calcifications. The visualized parts of the paranasal sinuses and mastoid air cells are clear. IMPRESSION: Brain atrophy. Chronic ischemic white matter changes. No evidence of acute intracranial process. Report Dictated on --- Final --- Dictating Physician: MD YORK AHMAD Signed Date and Time: 01/07/2021 3:53 pm Signed by: MD YORK AHMAD Transcribed Date and Time: 01/07/2021 3:54 [facility] Work Phone: [place] Incoming Radiology Results From [facility] - 01/07/2021 3:54 PM EDT Patient Name: HELEN LIEBERMAN Computed Tomography ACCESSION EXAM DATE/TIME PROCEDURE ORDERING PROVIDER [id number] 01/07/2021 15:[address] Head or Brain w/o KODAK SALAZAR Contrast CPT code 68252 Reason For Exam (CT Head or Brain w/o Contrast) confusion Report HEAD CT WITHOUT IV CONTRAST History: Confusion, headache Comparison: 04/24/2016 Technique: Multislice volume acquisition axial CT sections were obtained from the base to the vertex of the brain without IV contrast enhancement. Multiplanar sagittal and coronal reconstructed images also obtained. Findings: There is mild brain atrophy with prominent cortical sulci, fissures, and ventricles. There are bilateral periventricular and subcortical hypodensities suggesting chronic ischemic white matter changes. There is no intracranial hemorrhage, mass effect, or midline shift in the brain. The exam is limited without IV contrast enhancement. There are carotid siphons and vertebral arteries atherosclerotic calcifications. The visualized parts of the paranasal sinuses and mastoid air cells are clear. IMPRESSION: Brain atrophy. Chronic ischemic white matter changes. No evidence of acute intracranial process. Report Dictated on --- Final --- Dictating Physician: MD YORK AHMAD Signed Date and Time: 01/07/2021 3:53 pm Signed by: MD YORK AHMAD Transcribed Date and Time: 01/07/2021 3:54 [facility] Work Phone: CT Head or Brain w/o Contras ton 01-07-2021 CT Head or Brain w/o Contrast Patient Name: HELEN LIEBERMAN Computed Tomography ACCESSION EXAM DATE/TIME PROCEDURE ORDERING PROVIDER [id number] 01/07/2021 15:[address] Head or Brain w/o KODAK SALAZAR Contrast CPT code 92044 Reason For Exam (CT Head or Brain w/o Contrast) confusion Report HEAD CT WITHOUT IV CONTRAST History: Confusion, headache Comparison: 04/24/2016 Technique: Multislice volume acquisition axial CT sections were obtained from the base to the vertex of the brain without IV contrast enhancement. Multiplanar sagittal and coronal reconstructed images also obtained. Findings: There is mild brain atrophy with prominent cortical sulci, fissures, and ventricles. There are bilateral periventricular and subcortical hypodensities suggesting chronic ischemic white matter changes. There is no intracranial hemorrhage, mass effect, or midline shift in the brain. The exam is limited without IV contrast enhancement. There are carotid siphons and vertebral arteries atherosclerotic calcifications. The visualized parts of the paranasal sinuses and mastoid air cells are clear. IMPRESSION: Brain atrophy. Chronic ischemic white matter changes. No evidence of acute intracranial process. Report Dictated on Final Dictating Physician: MD YORK AHMAD Signed Date and Time: 01/07/2021 3:53 pm Signed by: MD YORK AHMAD Transcribed Date and Time: 01/07/2021 3:54 Normal [facility] Comp Metabolic Panelon 01-07 ALP [Catalytic activity/Vol] 81 U/L Normal 38-126 [facility] Comment on above: Performed By: #### A MY3, CMP3, HEMDF, LIPA4 #### [facility] [address] [place] [address] ALT [Catalytic activity/Vol] 52 U/L High 0-34 [facility] Comment on above: Result Comment: The ALT test is performed by an updated assay method. Please note that the reference intervals have been changed and are now sex specific. Performed By: #### A MY3, CMP3, HEMDF, LIPA4 #### [facility] [address] [place] [address] Calcium [Mass/Vol] 9.6 mg/dL Normal 8.4-10.4 [facility] Comment on above: Performed By: #### A MY3, CMP3, HEMDF, LIPA4 #### [facility] [address] [place] [address] Glucose [Mass/Vol] 141 mg/dL High 70-100 [facility] Comment on above: Performed By: #### A MY3, CMP3, HEMDF, LIPA4 #### [facility] [address] [place] [address] Protein [Mass/Vol] 7.4 g/dL Normal 6.3-8.2 [facility] Comment on above: Performed By: #### A MY3, CMP3, HEMDF, LIPA4 #### [facility] [address] [place] [address] Urea nitrogen [Mass/Vol] 15 mg/dL Normal 7-20 [facility] Comment on above: Performed By: #### A MY3, CMP3, HEMDF, LIPA4 #### [facility] [address] [place] [address] Anion gap [Moles/Vol] 9 mmol/L Normal 3-13 [facility] Comment on above: Performed By: #### A MY3, CMP3, HEMDF, LIPA4 #### [facility] [address] [place] [address] AST [Catalytic activity/Vol] 141 U/L High 15-46 [facility] Comment on above: Performed By: #### A MY3, CMP3, HEMDF, LIPA4 #### [facility] [address] [place] [address] Bilirubin [Mass/Vol] 1.4 mg/dL High 0.2-1.3 [facility] Comment on above: Performed By: #### A MY3, CMP3, HEMDF, LIPA4 #### [facility] [address] [place] [address] CO2 [Moles/Vol] 27 mmol/L Normal 22-30 [facility] Comment on above: Performed By: #### A MY3, CMP3, HEMDF, LIPA4 #### [facility] [address] [place] [address] Creatinine [Mass/Vol] 0.82 mg/dL Normal 0.52-1.25 [facility] Comment on above: Performed By: #### A MY3, CMP3, HEMDF, LIPA4 #### [facility] [address] [place] [address] GFR/1.73 sq M.predicted among blacks MDRD (S/P/Bld) [Vol rate/Area] 76.0 mL/min/{1.73_m2} Normal >60 [facility] Comment on above: Performed By: #### A MY3, CMP3, HEMDF, LIPA4 #### [facility] [address] [place] [address] GFR/1.73 sq M.predicted among non-blacks MDRD (S/P/Bld) [Vol rate/Area] 65.6 mL/min/{1.73_m2} Normal >60 [facility] Comment on above: Result Comment: KDIG O guidelines provide the following GFR categories: Stage GFR(ml/min/1.73 m2) Terms G1 >=90 Normal or high G2 60-89 Mildly decreased* G3a 45-59 Mildly to moderately decreased G3b 30-44 Moderately to severely decreased G4 15-29 Severely decreased G5 <15 Kidney failure *Relative to young adult level. In the absence of evidence of kidney damage, neither GFR category G1 nor G2 fulfill the criteria for CKD. The CKD-EPI equation is validated in individuals 18 years of age and older. Currently the best equation for estimating glomerular filtration rate (GFR) from serum creatinine in children is the Bedside Lawson equation. It is less accurate in patients with extremes of muscle mass, restriction of dietary protein, ingestion of creatine, extra-renal metabolism of creatinine, or treatment with medications that affect renal tubular creatinine secretion. Performed By: #### A MY3, CMP3, HEMDF, LIPA4 #### [facility] [address] [facility] [place] [address] Potassium [Moles/Vol] 3.8 mmol/L Normal 3.5-5.1 [facility] Comment on above: Performed By: #### A MY3, CMP3, HEMDF, LIPA4 #### [facility] [address] [facility] [place] [address] Sodium [Moles/Vol] 127 mmol/L Low 135-145 [facility] Comment on above: Performed By: #### A MY3, CMP3, HEMDF, LIPA4 #### [facility] [address] [facility] [place] [address] Albumin [Mass/Vol] 4.5 g/dL Normal 3.5-5.0 [facility] Comment on above: Performed By: #### A MY3, CMP3, HEMDF, LIPA4 #### [facility] [address] [facility] [place] [address] Chloride [Moles/Vol] 91 mmol/L Low 98-107 [facility] Comment on above: Performed By: #### A MY3, CMP3, HEMDF, LIPA4 #### [facility] [address] [facility] [place] [address] Complete Urinalysison 2020 Appearance (U) Clear Normal Clear [facility] Comment on above: Result Comment: . Performed By: #### A MY3, CMP3, HEMDF, LIPA4 #### [facility] [address] [place] [address] Bilirubin,Urine Negative Normal Negative [facility] Comment on above: Result Comment: . Performed By: #### A MY3, CMP3, HEMDF, LIPA4 #### [facility] [address] [place] [address] Color (U) COLORLESS Normal Lt. Yellow [facility] Comment on above: Result Comment: . Performed By: #### A MY3, CMP3, HEMDF, LIPA4 #### [facility] [address] [place] [address] Glucose Ql (U) Normal Normal Normal (<70) [facility] Comment on above: Result Comment: . Performed By: #### A MY3, CMP3, HEMDF, LIPA4 #### [facility] [address] [place] [address] Ketone,Urine Negative Normal Negative [facility] Comment on above: Result Comment: . Performed By: #### A MY3, CMP3, HEMDF, LIPA4 #### [facility] [address] [place] [address] Leukocytes,Urine Negative Normal Negative [facility] Comment on above: Result Comment: . Performed By: #### A MY3, CMP3, HEMDF, LIPA4 #### [facility] [address] [place] [address] Nitrites,Urine Negative Normal Negative [facility] Comment on above: Result Comment: . Performed By: #### A MY3, CMP3, HEMDF, LIPA4 #### [facility] [address] [place] [address] Occult Blood,Urine Negative Normal Negative [facility] Comment on above: Result Comment: . Performed By: #### A MY3, CMP3, HEMDF, LIPA4 #### [facility] [address] [place] [address] pH,Urine 7.5 Normal 5.0-8.0 [facility] Comment on above: Result Comment: . Performed By: #### A MY3, CMP3, HEMDF, LIPA4 #### [facility] [address] [place] [address] Specific [place],Urine 1.011 Normal 1.005 - 1.030 [facility] Comment on above: Result Comment: . Performed By: #### A MY3, CMP3, HEMDF, LIPA4 #### [facility] [address] [place] [address] Total Protein,Urine Negative Normal Negative [facility] Comment on above: Result Comment: . Performed By: #### A MY3, CMP3, HEMDF, LIPA4 #### [facility] [address] [place] [address] Urobilinogen,Urine Normal Normal Normal (0-1) [facility] Comment on above: Result Comment: . Performed By: #### A MY3, CMP3, HEMDF, LIPA4 #### [facility] [address] [place] [address] Comprehensive Metabolic Pane shaun 01-07-2021 Albumin [Mass/Vol] 4.5 g/dL 3.5 - 5.0 g/dL [facility] Work Phone: ALP (Bld) [Catalytic activity/Vol] 81 U/L 38 - 126 U/L [facility] Work Phone: ALT [Catalytic activity/Vol] 52 U/L High 0 - 34 U/L [facility] Work Phone: Comment on above: The ALT test is perf ormed by an updated assay method. Please note that the reference intervals have been changed and are now sex specific. Anion gap [Moles/Vol] 9 mmol/L 3 - 13 mmol/L [facility] Work Phone: AST [Catalytic activity/Vol] 141 U/L High 15 - 46 U/L [facility] Work Phone: Bilirubin [Mass/Vol] 1.4 mg/dL High 0.2 - 1 .3 mg/dL [facility] Work Phone: [phone] Calcium [Mass/Vol] 9.6 mg/dL 8.4 - 10. 4 mg/dL [employer] Work Phone: [phone] Chloride [Moles/Vol] 91 mmol/L Low 98 - 10 7 mmol/L [facility] Work Phone: [phone] CO2 [Moles/Vol] 27 mmol/L 22 - 30 mmol/L [facility] Work Phone: [phone] Creatinine [Mass/Vol] 0.82 mg/dL 0.52 - 1.25 mg/dL [facility] Work Phone: [phone] EGFR IF NonAfrican [place]olan 65.6 mL/min >60 [facility] Work Phone: [phone] Comment on above: KDIGO guidelines pro vide the following GFR categories: Stage GFR(ml/min/1.73 m2) Terms G1 >=90 Normal or high G2 60-89 Mildly decreased* G3a 45-59 Mildly to moderately decreased G3b 30-44 Moderately to severely decreased G4 15-29 Severely decreased G5 <15 Kidney failure *Relative to young adult level. In the absence of evidence of kidney damage, neither GFR category G1 nor G2 fulfill the criteria for CKD. The CKD-EPI equation is validated in individuals 18 years of age and older. Currently the best equation for estimating glomerular filtration rate (GFR) from serum creatinine in children is the Bedside Lawson equation. It is less accurate in patients with extremes of muscle mass, restriction of dietary protein, ingestion of creatine, extra-renal metabolism of creatinine, or treatment with medications that affect renal tubular creatinine secretion. Free PSA/Prostate specific Ag.total [Mass fraction] 7.4 g/dL 6.3 - 8.2 g/dL [facility] Work Phone: [phone] GFR/1.73 sq M predicted among blacks MDRD (S/P/Bld) [Vol rate/Area] 76.0 mL/min/{1.73_m2} >60 [facility] Work Phone: [phone] Glucose [Mass/Vol] 141 mg/dL High 70 - 100 mg/dL [facility] Work Phone: [phone] Interpretation and review of laboratory results Abnormal [facility] Work Phone: [phone] Potassium [Moles/Vol] 3.8 mmol/L 3.5 - 5.1 mmol/L [employer] Work Phone: [phone] Sodium [Moles/Vol] 127 mmol/L Low 135 - 145 mmol/L [facility] Work Phone: 1 Urea nitrogen (BldV) [Mass/Vol] 15 mg/dL 7 - 20 mg/dL [employer] Work Phone: 1 Hemogram (CBC) w/Auto Diffon 01-07-2021 Absolute Baso # 0.0 10*3/uL 0.0 - 0.2 10*3/uL [facility] Work Phone: 1 Absolute Neut # 5.9 10*3/uL 1.8 - 7.0 10*3/uL [facility] Work Phone: 1 Basophils/100 WBC (Bld) 0.6 % 0.0 - 2.0 % [employer] Work Phone: Eosinophils (Bld) [#/Vol] 0.1 10*3/uL 0.0 - 0.5 10*3/uL [employer] Work Phone: 1 Eosinophils/100 WBC (Bld) 1.4 % 1.0 - 6.0 % [employer] Work Phone: 1 Granulocytes/100 WBC (Bld) 74.1 % 40.0 - 80.0 % [employer] Work Phone: Hematocrit (Bld) [Volume fraction] 37.0 % 35.0 - 47.0 % [employer] Work Phone: Hemoglobin.gastrointest inal spec 1 Ql (Stl) 13.2 g/dL 11.7 - 16.0 g/dL [facility] Work Phone: Interpretation and review of laboratory results Abnormal [employer] Work Phone: Lymphocytes (Bld) [#/Vol] 1.3 10*3/uL 1.0 - 4.3 10*3/uL [facility] Work Phone: Lymphocytes/100 WBC (Bld) 15.9 % Low 20.0 - 40.0 % [facility] Work Phone: 1 MCH (RBC) [Entitic mass] 32.3 pg 26.0 - 34.0 pg [facility] Work Phone: 1 MCHC (RBC) [Mass/Vol] 35.6 % 32.0 - 36.0 % [facility] Work Phone: 1 MCV (RBC) [Entitic vol] 90.5 fL 79.0 - 98.0 fL [employer] Work Phone: 1 Monocytes (Bld) [#/Vol] 0.6 10*3/uL 0.0 - 0.8 10*3/uL [employer] Work Phone: 1() Monocytes/100 WBC (Bld) 8.0 % 2.0 - 10.0 % [employer] Work Phone: 1 Platelet distribution width (Bld) [Ratio] 14.0 % 11.5 - 14.5 % [employer] Phone: 1 Platelet mean volume (Bld) [Entitic vol] 6.9 fL Low 7.4 - 10.4 fL [employer] Phone: () Platelets (Bld) [#/Vol] 359 10*3/uL 140 - 440 10*3/uL [employer] Work Phone: 1) RBC (Bld) [#/Vol] 4.09 10*6/uL 3.80 - 5.2 0 10*6/uL [facility] Work Phone: 1) WBC (Bld) [#/Vol] 7.9 10*3/uL 3.6 - 10.7 10*3/uL [facility] Work Phone: 1 Test Performed by [facility], [address] , [address] Work Phone: [phone] Hemogram w/ Autodiffon 01-07 Abs Baso Cnt 0.0 10*3/uL Normal 0.0-0.2 [facility] Comment on above: Performed By: #### H EMDF #### [facility] [address] [place] [address] Abs Neutrophile Cnt 5.9 10*3/uL Normal 1.8-7.0 [facility] Comment on above: Performed By: #### H EMDF #### [facility] [address] [place] [address] Basophils/100 WBC (Bld) 0.6 % Normal 0.0-2.0 [facility] Comment on above: Performed By: #### H EMDF #### [facility] [address] [place] [address] Eosinophils (Bld) [#/Vol] 0.1 10*3/uL Normal 0.0-0.5 [facility] Comment on above: Performed By: #### H EMDF #### [facility] [address] [place] [address] Eosinophils/100 WBC (Bld) 1.4 % Normal 1.0-6.0 [facility] Comment on above: Performed By: #### H EMDF #### [facility] [address] [place] [address] Erythrocyte distribution width (RBC) [Ratio] 14.0 % Normal 11.5-14.5 [facility] Comment on above: Performed By: #### H EMDF #### [facility] [address] [place] [address] Granulocytes/100 WBC (Bld) 74.1 % Normal 40.0-80.0 [facility] Comment on above: Performed By: #### H EMDF #### [facility] [address] [place] [address] Hematocrit (Bld) [Volume fraction] 37.0 % Normal 35.0-47.0 [facility] Comment on above: Performed By: #### H EMDF #### [facility] [address] [place] [address] Hemoglobin (Bld) [Mass/Vol] 13.2 g/dL Normal 11.7-16.0 [facility] Comment on above: Performed By: #### H EMDF #### [facility] [address] [place] [address] Lymphocytes (Bld) [#/Vol] 1.3 10*3/uL Normal 1.0-4.3 [facility] Comment on above: Performed By: #### H EMDF #### [facility] [address] [place] [address] Lymphocytes/100 WBC (Bld) 15.9 % Low 20.0-40.0 [facility] Comment on above: Performed By: #### H EMDF #### [facility] [address] [place] [address] MCH (RBC) [Entitic mass] 32.3 pg Normal 26.0-34.0 [facility] Comment on above: Performed By: #### H EMDF #### [facility] [address] [place] [address] MCHC 35.6 % Normal 32.0-36.0 [facility] Comment on above: Performed By: #### H EMDF #### [facility] [address] [place] [address] MCV (RBC) [Entitic vol] 90.5 fL Normal 79.0-98.0 [facility] Comment on above: Performed By: #### H EMDF #### [facility] [address] [place] [address] Monocytes (Bld) [#/Vol] 0.6 10*3/uL Normal 0.0-0.8 [facility] Comment on above: Performed By: #### H EMDF #### [facility] [address] [place] [address] Monocytes/100 WBC (Bld) 8.0 % Normal 2.0-10.0 [facility] Comment on above: Performed By: #### H EMDF #### [facility] [address] [place] [address] Platelet mean volume (Bld) [Entitic vol] 6.9 fL Low 7.4-10.4 [facility] Comment on above: Performed By: #### H EMDF #### [facility] [address] [place] [address] Platelets (Bld) [#/Vol] 359 10*3/uL Normal 140-440 [facility] Comment on above: Performed By: #### H EMDF #### [facility] [address] [place] [address] RBC (Bld) [#/Vol] 4.09 10*6/uL Normal 3.80-5.20 [facility] Comment on above: Performed By: #### H EMDF #### [facility] [address] [place] [address] WBC (Bld) [#/Vol] 7.9 10*3/uL Normal 3.6-10.7 [facility] Comment on above: Performed By: #### H EMDF #### [facility] [address] [place] [address] Lipaseon 01-07-2021 Lipase [Catalytic activity/Vol] 228 U/L Normal 23-300 [facility] Comment on above: Performed By: #### A MY3, CMP3, HEMDF, LIPA4 #### [facility] [address] [place] [address] Lipase [Catalytic activity/Vol] 228 U/L 23 - 300 U/L [facility] Work Phone: Otheron 01-07-2021 Test Performed by [facility], [address] , [address] Work Phone: Troponinon 01-07-2021 Troponin I.cardiac [Mass/Vol] ng/mL 0.000 - 0.034 ng/mL [facility] Work Phone: Comment on above: . Test Performed by [facility], [address] , [address] Work Phone: Troponin Ion 01-07-2021 Troponin I.cardiac [Mass/Vol] ng/mL Normal 0.000-0.034 [facility] Comment on above: Result Comment: . Performed By: #### A MY3, CMP3, HEMDF, LIPA4 #### [facility] [address] [place] [address] Comp Metabolic Panelon 08-25 Calcium [Mass/Vol] 10.1 mg/dL Normal 8.4-10.4 [facility] Comment on above: Performed By: #### A MY3, CMP3, HEMDF, LIPA4 #### [facility] [address] [place] [address] Anion Gap 10 Normal [facility] Comment on above: Performed By: #### A MY3, CMP3, HEMDF, LIPA4 #### [facility] [address] [place] [address] Bilirubin [Mass/Vol] 1.0 mg/dL Normal 0.2-1.3 [facility] Comment on above: Performed By: #### A MY3, CMP3, HEMDF, LIPA4 #### [facility] [address] [place] [address] GFR/1.73 sq M.predicted among non-blacks MDRD (S/P/Bld) [Vol rate/Area] 64.8 mL/min/{1.73_m2} Normal >60 [facility] Comment on above: Result Comment: KDIG O guidelines provide the following GFR categories: Stage GFR(ml/min/1.73 m2) Terms G1 >=90 Normal or high G2 60-89 Mildly decreased* G3a 45-59 Mildly to moderately decreased G3b 30-44 Moderately to severely decreased G4 15-29 Severely decreased G5 <15 Kidney failure *Relative to young adult level. In the absence of evidence of kidney damage, neither GFR category G1 nor G2 fulfill the criteria for CKD. The CKD-EPI equation is validated in individuals 18 years of age and older. Currently the best equation for estimating glomerular filtration rate (GFR) from serum creatinine in children is the Bedside Lawson equation. It is less accurate in patients with extremes of muscle mass, restriction of dietary protein, ingestion of creatine, extra-renal metabolism of creatinine, or treatment with medications that affect renal tubular creatinine secretion. Performed By: #### A MY3, CMP3, HEMDF, LIPA4 #### [facility] [address] [place] [address] Potassium [Moles/Vol] 4.6 mmol/L Normal 3.5-5.1 [facility] Comment on above: Performed By: #### A MY3, CMP3, HEMDF, LIPA4 #### [facility] [address] [place] [address] Sodium [Moles/Vol] 131 mmol/L Low 135-145 [facility] Comment on above: Performed By: #### A MY3, CMP3, HEMDF, LIPA4 #### [facility] [address] [place] [address] Albumin [Mass/Vol] 4.5 g/dL Normal 3.5-5.0 [facility] Comment on above: Performed By: #### A MY3, CMP3, HEMDF, LIPA4 #### [facility] [address] [place] [address] Chloride [Moles/Vol] 93 mmol/L Low 98-107 [facility] Comment on above: Performed By: #### A MY3, CMP3, HEMDF, LIPA4 #### [facility] [address] [place] [address] ALP [Catalytic activity/Vol] 76 U/L Normal 38-126 [facility], [place] Comment on above: Performed By: #### A MY3, CMP3, HEMDF, LIPA4 #### [facility] [address] [place] [address] ALT [Catalytic activity/Vol] 11 U/L Normal 0-34 [facility], [place] Comment on above: The ALT test is perf ormed by an updated assay method. Please note that the reference intervals have been changed and are now sex specific. Result Comment: The ALT test is performed by an updated assay method. Please note that the reference intervals have been changed and are now sex specific. Performed By: #### A MY3, CMP3, HEMDF, LIPA4 #### [facility] [address] [place] [address] AST [Catalytic activity/Vol] 34 U/L Normal 15-46 [facility], [place] Comment on above: Performed By: #### A MY3, CMP3, HEMDF, LIPA4 #### [facility] [address] [place] [address] CO2 [Moles/Vol] 29 mmol/L Normal 22-30 [facility], [place] Comment on above: Performed By: #### A MY3, CMP3, HEMDF, LIPA4 #### [facility] [address] [place] [address] Creatinine [Mass/Vol] 0.83 mg/dL Normal 0.52-1.25 [place], [place] Comment on above: Performed By: #### A MY3, CMP3, HEMDF, LIPA4 #### [facility] [address] [place] [address] GFR/1.73 sq M predicted among blacks MDRD (S/P/Bld) [Vol rate/Area] 75.1 mL/min/{1.73_m2} Normal >60 [place], [place] Comment on above: Performed By: #### A MY3, CMP3, HEMDF, LIPA4 #### [facility] [address] [place] [address] Glucose [Mass/Vol] 115 mg/dL High 70-100 [place], [place] Comment on above: Performed By: #### A MY3, CMP3, HEMDF, LIPA4 #### [facility] [address] [place] [address] Protein [Mass/Vol] 7.6 g/dL Normal 6.3-8.2 [place] Comment on above: Performed By: #### A MY3, CMP3, HEMDF, LIPA4 #### [facility] [address] [place] [address] Urea nitrogen [Mass/Vol] 10 mg/dL Normal 7-20 [place] Comment on above: Performed By: #### A MY3, CMP3, HEMDF, LIPA4 #### [facility] [address] [place] [address] Comprehensive Metabolic Pane shaun 08-25-2020 Albumin [Mass/Vol] 4.5 g/dL 3.5 - 5 g/dL [place], [place] Anion gap [Moles/Vol] 10 mmol/L [place], [place] Bilirubin Ql (U) 1.0 mg/dL 0.2 - 1.3 mg/dL [place], [place] Calcium [Mass/Vol] 10.1 mg/dL 8.4 - 10. 4 mg/dL [place] Chloride [Moles/Vol] 93 mmol/L Low 98 - 10 7 mmol/L [place] EGFR IF NonAfrican [place] 64.8 mL/min >60 [place] Comment on above: KDIGO guidelines pro vide the following GFR categories: Stage GFR(ml/min/1.73 m2) Terms G1 >=90 Normal or high G2 60-89 Mildly decreased* G3a 45-59 Mildly to moderately decreased G3b 30-44 Moderately to severely decreased G4 15-29 Severely decreased G5 <15 Kidney failure *Relative to young adult level. In the absence of evidence of kidney damage, neither GFR category G1 nor G2 fulfill the criteria for CKD. The CKD-EPI equation is validated in individuals 18 years of age and older. Currently the best equation for estimating glomerular filtration rate (GFR) from serum creatinine in children is the Bedside Lawson equation. It is less accurate in patients with extremes of muscle mass, restriction of dietary protein, ingestion of creatine, extra-renal metabolism of creatinine, or treatment with medications that affect renal tubular creatinine secretion. Potassium [Moles/Vol] 4.6 mmol/L 3.5 - 5.1 mmol/L [place] Sodium [Moles/Vol] 131 mmol/L Low 135 - 145 mmol/L [place] Lipid Panelon 08-25-2020 Chol/HDL 7 Normal [facility] Comment on above: Result Comment: Ref Range: < 3 Low Risk for CHD 3-6 Mod Risk for CHD > 6 High Risk for CHD Performed By: #### A MY3, CMP3, HEMDF, LIPA4 #### [facility] [address] [place] [address] Cholesterol in HDL [Mass/Vol] 34 mg/dL Low 40-60 [facility] Comment on above: Performed By: #### A MY3, CMP3, HEMDF, LIPA4 #### [facility] [address] [place] [address] Low Density Lipoprotein 184 mg/dL Abnormal <100 [facility] Comment on above: Performed By: #### A MY3, CMP3, HEMDF, LIPA4 #### [facility] [address] [place] [address] Cholesterol [Mass/Vol] 251 mg/dL Abnormal < 200 [place], [place] Comment on above: Performed By: #### A MY3, CMP3, HEMDF, LIPA4 #### [facility] [address] [place] [address] Triglyceride [Mass/Vol] 164 mg/dL Abnormal <150 M [place], [place] Comment on above: Performed By: #### A MY3, CMP3, HEMDF, LIPA4 #### [facility] [address] [place] [address] Cholesterol in HDL [Mass/Vol] 34 mg/dL Low 40 - 60 mg/dL [place] Cholesterol in LDL [Mass/Vol] 184 mg/dL Abnormal <100 [place] Cholesterol.total/Jhoana sterol in HDL [Mass ratio] 7 {ratio} [place], [place] Comment on above: Ref Range: < 3 Low Risk for CHD 3-6 Mod Risk for CHD > 6 High Risk for CHD Otheron 08-25-2020 Interpretation and review of laboratory results Abnormal [place], [place] Test Performed by [facility], [address] , [address] TSH without Reflexon 020 TSH Qn 2.313 u[IU]/mL 0.465 - 4.68 u[IU]/mL [place], [place] Test Performed by [facility], [address] , [address] Thyroid Stim. Hormoneon 07-29 Thyroid Stim. Hormone 2.313 u[IU]/mL Normal 0.465-4.68 0 [facility] Comment on above: Performed By: #### A MY3, CMP3, HEMDF, LIPA4 #### [facility] [address] [place] [address] Comprehensive Metabolic Pane shaun 06-13-2020 Albumin [Mass/Vol] 4.6 g/dL 3.5 - 5 g/dL [place], [place] ALP [Catalytic activity/Vol] 57 U/L 38 - 126 U/L [place] ALT [Catalytic activity/Vol] 15 U/L 0 - 34 U/L [place] Comment on above: The ALT test is perf ormed by an updated assay method. Please note that the reference intervals have been changed and are now sex specific. Anion gap [Moles/Vol] 13 mmol/L [place], [place] AST [Catalytic activity/Vol] 31 U/L 15 - 46 U/L [place] Bilirubin Ql (U) 1.2 mg/dL 0.2 - 1.3 mg/dL [place] Calcium [Mass/Vol] 9.8 mg/dL 8.4 - 10. 4 mg/dL [place] Chloride [Moles/Vol] 89 mmol/L Low 98 - 10 7 mmol/L [place] CO2 [Moles/Vol] 27 mmol/L 22 - 30 mmol/L [place] Creatinine [Mass/Vol] 0.86 mg/dL 0.52 - 1.25 mg/dL [place] EGFR IF NonAfrican [place]olan 62.2 mL/min >60 [place] Comment on above: KDIGO guidelines pro vide the following GFR categories: Stage GFR(ml/min/1.73 m2) Terms G1 >=90 Normal or high G2 60-89 Mildly decreased* G3a 45-59 Mildly to moderately decreased G3b 30-44 Moderately to severely decreased G4 15-29 Severely decreased G5 <15 Kidney failure *Relative to young adult level. In the absence of evidence of kidney damage, neither GFR category G1 nor G2 fulfill the criteria for CKD. The CKD-EPI equation is validated in individuals 18 years of age and older. Currently the best equation for estimating glomerular filtration rate (GFR) from serum creatinine in children is the Bedside Lawson equation. It is less accurate in patients with extremes of muscle mass, restriction of dietary protein, ingestion of creatine, extra-renal metabolism of creatinine, or treatment with medications that affect renal tubular creatinine secretion. GFR/1.73 sq M predicted among blacks MDRD (S/P/Bld) [Vol rate/Area] 72.1 mL/min/{1.73_m2} >60 [place] Glucose [Mass/Vol] 111 mg/dL High 70 - 100 mg/dL [place] Interpretation and review of laboratory results Abnormal [place] Potassium [Moles/Vol] 4.4 mmol/L 3.5 - 5.1 mmol/L [place] Protein [Mass/Vol] 8.1 g/dL 6.3 - 8.2 g/dL [place] Sodium [Moles/Vol] 129 mmol/L Low 135 - 145 mmol/L [place] Urea nitrogen [Mass/Vol] 14 mg/dL 7 - 20 mg/dL [place] Test Performed by [facility], [address], [place], [place] [address] [place] MRI LOWER EXTREMITY LEFT W J T WO CONTRASTon 06-11-2020 Patient Name: HELEN GUTIERREZ ---MRI--- Exam Date/Time 06/11/2020 14:41:15 EDT Exam MRI Low Ext Joint w/o Contrast Left Ordering Physician TYREE CREWS Accession Number [id number] CPT4 Codes 13323 () Reason For Exam Pain in left ankle, Spontaneous rupture of flexor tendons Report Examination: MRI left ankle Clinical Indication: Pain in left ankle, Spontaneous rupture of flexor tendons Comparison: None Findings: Multiplanar multisequence high field strength MRI images were obtained through the left ankle without gadolinium contrast administration. No osseous contusion, fracture or avascular necrosis. Medially, posterior tibial, flexor digitorum longus and flexor hallucis longus tendons are grossly intact without tear. There is mild posterior tibial tendon tenosynovitis at the anterior talus level. Deltoid ligament is grossly intact. The sinus Tarsi demonstrates mild inflammation. Talocalcaneal ligaments appear grossly intact. The tarsal tunnel is within normal limits. Achilles tendon demonstrates no abnormality. Moderate inflammation within the Achilles peritenon with trace retrocalcaneal bursitis. Plantar fascia is normal in appearance. There is a trace amount of inflammation at the lateral bundle origin. Tiny ankle joint effusion. Tibiotalar articular cartilage demonstrates gbnr-fj-rayykhnq cartilage thinning with small marginal osteophytes. No osteochondral lesion. Extensor tendons demonstrate tear of the tibialis anterior, full-thickness and retracted 3.8 cm to the level of the talus anteriorly. Laterally, peroneal tendons are intact without tear. No tendinopathy or tear. Lateral ligament complex is grossly intact. Anterior talofibular ligament well visualized, unremarkable. There is some slight nonspecific soft tissue inflammation, edema lateral ankle and hindfoot. Midfoot demonstrates mild cartilage thinning. Small osteophytes.. No significant productive or erosive arthropathy. Impression: 1. Full-thickness tear of the tibialis anterior, extensor tendon anteriorly with 3.8 cm of retraction. 2. Achilles peritenon nine is with trace retrocalcaneal bursitis. 3. 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 4. Trace posterior tibial tendon tenosynovitis. Report Dictated on Workstation: [id number] --- Final --- Dictated: 06/11/2020 2:59 pm Dictating Physician: MD BRITT ANTHONY J Signed Date and Time: 06/11/2020 3:10 pm Signed by: MD BRITT ANTHONY J Transcribed Date and Time: 06/11/2020 2:59 [place], [facility] Incoming Radiology Results From [facility] - 06/11/2020 3:11 PM EDT Patient Name: HELEN LIEBERMAN ---MRI--- Exam Date/Time 06/11/2020 14:41:15 EDT Exam MRI Low Ext Joint w/o Contrast Left Ordering Physician TYREE CREWS Accession Number [id number] CPT4 Codes 74075 () Reason For Exam Pain in left ankle, Spontaneous rupture of flexor tendons Report Examination: MRI left ankle Clinical Indication: Pain in left ankle, Spontaneous rupture of flexor tendons Comparison: None Findings: Multiplanar multisequence high field strength MRI images were obtained through the left ankle without gadolinium contrast administration. No osseous contusion, fracture or avascular necrosis. Medially, posterior tibial, flexor digitorum longus and flexor hallucis longus tendons are grossly intact without tear. There is mild posterior tibial tendon tenosynovitis at the anterior talus level. Deltoid ligament is grossly intact. The sinus Tarsi demonstrates mild inflammation. Talocalcaneal ligaments appear grossly intact. The tarsal tunnel is within normal limits. Achilles tendon demonstrates no abnormality. Moderate inflammation within the Achilles peritenon with trace retrocalcaneal bursitis. Plantar fascia is normal in appearance. There is a trace amount of inflammation at the lateral bundle origin. Tiny ankle joint effusion. Tibiotalar articular cartilage demonstrates edoe-eh-iybdtetc cartilage thinning with small marginal osteophytes. No osteochondral lesion. Extensor tendons demonstrate tear of the tibialis anterior, full-thickness and retracted 3.8 cm to the level of the talus anteriorly. Laterally, peroneal tendons are intact without tear. No tendinopathy or tear. Lateral ligament complex is grossly intact. Anterior talofibular ligament well visualized, unremarkable. There is some slight nonspecific soft tissue inflammation, edema lateral ankle and hindfoot. Midfoot demonstrates mild cartilage thinning. Small osteophytes.. No significant productive or erosive arthropathy. Impression: 1. Full-thickness tear of the tibialis anterior, extensor tendon anteriorly with 3.8 cm of retraction. 2. Achilles peritenon nine is with trace retrocalcaneal bursitis. 3. 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 4. Trace posterior tibial tendon tenosynovitis. Report Dictated on Workstation: [id number] --- Final --- Dictated: 06/11/2020 2:59 pm Dictating Physician: MD BRITT ANTHONY J Signed Date and Time: 06/11/2020 3:10 pm Signed by: MD BRITT ANTHONY J Transcribed Date and Time: 06/11/2020 2:59 [place] Comprehensive Metabolic Pane shaun 05-30-2020 Albumin [Mass/Vol] 4.8 g/dL 3.5 - 5 g/dL [place] ALP [Catalytic activity/Vol] 61 U/L 38 - 126 U/L [place] ALT [Catalytic activity/Vol] 15 U/L 0 - 34 U/L [place] Comment on above: The ALT test is perf ormed by an updated assay method. Please note that the reference intervals have been changed and are now sex specific. Anion gap [Moles/Vol] 10 mmol/L [place] AST [Catalytic activity/Vol] 31 U/L 15 - 46 U/L [place] Bilirubin Ql (U) 0.8 mg/dL 0.2 - 1.3 mg/dL [place] Calcium [Mass/Vol] 9.7 mg/dL 8.4 - 10. 4 mg/dL [place] Chloride [Moles/Vol] 91 mmol/L Low 98 - 10 7 mmol/L [place] CO2 [Moles/Vol] 26 mmol/L 22 - 30 mmol/L [place] Creatinine [Mass/Vol] 0.8 mg/dL 0.52 - 1.25 mg/dL [place] EGFR IF NonAfrican [place] 67.9 mL/min >60 [place] Comment on above: KDIGO guidelines pro vide the following GFR categories: Stage GFR(ml/min/1.73 m2) Terms G1 >=90 Normal or high G2 60-89 Mildly decreased* G3a 45-59 Mildly to moderately decreased G3b 30-44 Moderately to severely decreased G4 15-29 Severely decreased G5 <15 Kidney failure *Relative to young adult level. In the absence of evidence of kidney damage, neither GFR category G1 nor G2 fulfill the criteria for CKD. The CKD-EPI equation is validated in individuals 18 years of age and older. Currently the best equation for estimating glomerular filtration rate (GFR) from serum creatinine in children is the Bedside Lawson equation. It is less accurate in patients with extremes of muscle mass, restriction of dietary protein, ingestion of creatine, extra-renal metabolism of creatinine, or treatment with medications that affect renal tubular creatinine secretion. GFR/1.73 sq M predicted among blacks MDRD (S/P/Bld) [Vol rate/Area] 78.7 mL/min/{1.73_m2} >60 [place] Glucose [Mass/Vol] 115 mg/dL High 70 - 100 mg/dL [place] Interpretation and review of laboratory results Abnormal [place] Potassium [Moles/Vol] 4.4 mmol/L 3.5 - 5.1 mmol/L [place] Protein [Mass/Vol] 7.9 g/dL 6.3 - 8.2 g/dL [place] Sodium [Moles/Vol] 127 mmol/L Low 135 - 145 mmol/L [place] Urea nitrogen [Mass/Vol] 16 mg/dL 7 - 20 mg/dL [place] Test Performed by [facility], [address] , [address] Hemogram (CBC)on 05-30-2020 Erythrocyte distribution width (RBC) [Ratio] 12.8 % 11.5 - 14.5 % [place] Hematocrit (Bld) [Volume fraction] 38.1 % 35 - 47 % [place] Hemoglobin (Bld) [Mass/Vol] 13.5 g/dL 11.7 - 16 g/dL [place] Interpretation and review of laboratory results Abnormal [place] MCH (RBC) [Entitic mass] 33.1 pg 26 - 34 pg [place] MCHC (RBC) [Mass/Vol] 35.4 % 32 - 36 % [place] MCV (RBC) [Entitic vol] 93.4 fL 79 - 98 fL [place], [place] Platelet mean volume (Bld) [Entitic vol] 6.5 fL Low 7.4 - 10.4 fL [place] Platelets (Bld) [#/Vol] 347 10*3/uL 140 - 440 10*3/uL [place] RBC (Bld) [#/Vol] 4.08 10*6/uL 3.8 - 5.2 10*6/uL [place] WBC (Bld) [#/Vol] 6.5 10*3/uL 3.6 - 10.7 10*3/uL [place] Test Performed by [facility], [address] , [address] CMPon 03-15-2018 Alanine aminotransferase (ALT) 21 U/L Normal 13-61 [facility] [place] Comment on above: Result Comment: RESU LTS MAY BE FALSELY DEPRESSED AFTER THE ADMINISTRATION OFSULFASALAZINE AND/OR SULFAPYRIDINE. Performed By: #### L 500.73430, L500.67592, L500.19618, L500.62793 ####[facility] [id number] [place], [place] [address]Wz# [phone] Albumin 4.3 g/dL Normal 3.2-5.0 [facility] Comment on above: Performed By: #### L 500.55548, L500.40731, L500.23767, L500.56796 ####[facility] [id number] [place], [place] [address]Md# [phone] Albumin/Globulin Ratio 1.3 {ratio} Normal 0.8-2.0 [facility] Comment on above: Performed By: #### L 500.62845, L500.31407, L500.10113, L500.92892 ####[facility] [id number] [place], [place] [address]Tn# [phone] ALK PHOS 60 U/L Normal 45-117 [facility] Comment on above: Performed By: #### L 500.53617, L500.95342, L500.02339, L500.56364 ####[facility] [id number] [place], [place] [address]La# [phone] Anion gap 9 mmol/L Normal 5-16 [facility] Comment on above: Performed By: #### L 500.45356, L500.31707, L500.89653, L500.91486 ####[facility] ULVOPRKJVC0685 [place], [place] [address]Ti# [phone] BILI TOTAL 1.0 MG/DL Normal 0.2-1.0 [facility] Comment on above: Performed By: #### L 500.89361, L500.43009, L500.41962, L500.97121 ####[facility] [id number] [place], [place] [address]Et# [phone] BUN/Creatinine Ratio 16 mg/mg Normal 15-24 [facility] Comment on above: Performed By: #### L 500.89617, L500.27314, L500.65884, L500.62475 ####[facility] [id number] [place], [place] [address]Gq# [phone] Calcium 9.8 mg/dL Normal 8.5-10.1 [facility] Comment on above: Performed By: #### L 500.95771, L500.50681, L500.51578, L500.26807 ####[facility] [id number] [place], [place] [address]Te# [phone] Chloride 93 mmol/L Low 98-107 [facility] Comment on above: Performed By: #### L 500.98312, L500.47694, L500.49614, L500.52922 ####[facility] [id number] [place], [place] [address]Tw# [phone] CO2 27 mmol/L Normal 21-32 [facility] Comment on above: Performed By: #### L 500.11406, L500.94820, L500.92110, L500.15169 ####[facility] [id number] [place], [place] [address]Vp# [phone] Creatinine 0.813 mg/dL Normal 0.510-0.950 [facility] Comment on above: Result Comment: Bela ents receiving either N-Acetylcysteine (NAC) orMetamizole prior to venipuncture, may have falsely depressedresults. Performed By: #### L 500.93846, L500.01024, L500.43377, L500.59451 ####[facility] [id number] [place] [id number]# [phone] Globulin 3.3 g/dL Normal 2.2-4.2 [facility] Comment on above: Performed By: #### L 500.88674, L500.89095, L500.65647, L500.96867 ####[facility] [id number] [place], [place] [address]Uz# [phone] Glucose mass conc 104 mg/dL High 70-100 [facility] Comment on above: Result Comment: 70-1 00- Normal Fasting; 100-125 Impaired Fasting; greaterthan 126 on more than one result- Diabetes. ADA guidelines.Results may be falsely elevated after the administration ofSulfapyridine.Results may be falsely depressed after the administration ofSulfasalazine. Performed By: #### L 500.90898, L500.64416, L500.42640, L500.26277 ####[facility] [id number] [place], [place] [address]Lm# [phone] Potassium molar conc 4.3 mmol/L Normal 3.5-5.1 [facility] Comment on above: Performed By: #### L 500.72158, L500.86331, L500.15417, L500.71404 ####[facility] ELYFNIPMWX3087 [place], [place] [address]Ko# [phone] Protein 7.6 g/dL Normal 6.0-8.5 [facility] Comment on above: Performed By: #### L 500.32802, L500.63067, L500.15838, L500.30282 ####[facility] BLVFQIOLBJ9825 [place], [place] [address]Hf# [phone] SGOT (AST) 20 U/L Normal 8-34 [facility] Comment on above: Result Comment: RESU LTS MAY BE FALSELY DEPRESSED AFTER THE ADMINISTRATION OFSULFASALAZINE AND/OR SULFAPYRIDINE. Performed By: #### L 500.92545, L500.97371, L500.73225, L500.46726 ####[facility] [id number] [place], [place] [address]Cc# [phone] Sodium 129 mmol/L Low 136-145 [facility] Comment on above: Performed By: #### L 500.04411, L500.68801, L500.20623, L500.18514 ####[facility] [id number] [place], [place] [address]Qq# [phone] Urea nitrogen 13 mg/dL Normal 7-26 [facility] Comment on above: Performed By: #### L 500.34613, L500.68754, L500.34244, L500.27599 ####[facility] [id number] [place], [place] [address]Vg# [phone] GFR ESTon 03-15-2018 IF AMER Greater than 60 Normal [facility] [place] Comment on above: Performed By: #### L 500.47918, L500.61529, L500.70700, L500.85266 ####[facility] [id number] [place], [place] [address]Ut# [phone] IF non-AFR AMER Greater than 60 Normal [facility] [place] Comment on above: Performed By: #### L 500.24644, L500.33113, L500.74530, L500.43553 ####[facility] NHRAHRELCG6154 [place], [place] [address]Ug# [phone] LIPIDon 03-15-2018 Cholesterol 254 mg/dL High 0-199 [facility] Comment on above: Performed By: #### L 500.22745, L500.43774, L500.05709, L500.24953 ####[facility] [id number] [place], [place] [address]It# [phone] HDL Cholesterol 36 mg/dL Low GREATER [place] 40 [facility] Comment on above: Result Comment: Bela ents receiving Metamizole prior to venipuncture, mayhave falsely depressed results. Performed By: #### L 500.99510, L500.36692, L500.87388, L500.80357 ####[facility] [id number] [place], [place] [address]Ul# [phone] LDL Cholesterol 173 MG/DL High 0-129 [facility] Comment on above: Result Comment: ___C HOLESTEROL/HDL RATIO RISK___ CHD RISK = Total CHOL LDL HDL (CHOL/HDL) --------Recommended <200 <130 >35 <3.4 --Borderline 200-239 130-159 3.4-4.99 ------High >240 >160 >5.0 -- Performed By: #### L 500.33353, L500.50119, L500.00549, L500.19356 ####[facility] [id number] [place], [place] [address]Af# [phone] Triglyceride 226 mg/dL High 30-149 [facility] Comment on above: Result Comment: Bela ents receiving either N-Acetylcysteine (NAC) orMetamizole prior to venipuncture, may have falsely depressedresults. Performed By: #### L 500.06192, L500.03697, L500.69343, L500.35007 ####[facility] [id number] [place], [place] [address]Kr# [phone] TSHon 03-15-2018 Thyroid stimulating hormone (TSH) 0.499 UIU/ML Normal 0.358-3.740 [facility] Comment on above: Result Comment: 3rd generation ultra sensitive TSH Performed By: #### L 500.64779, L500.93315, L500.65874, L500.97296 ####[facility] [id number] [place], [place] [address]Ge# [phone] UA COMPLETEon 03-15-2018 UA APPEARANCE Clear Normal CLEAR [facility] Comment on above: Performed By: #### L 600.42104 ####[facility] [id number] [place], [place] [address]Bk# [phone] UA BILIRUBIN Negative Normal [facility] Comment on above: Performed By: #### L 600.81007 ####[facility] [id number] [place] [address]Jx# [phone] UA BLOOD Negative Normal NEGATIVE [facility] Comment on above: Performed By: #### L 600.36589 ####[facility] [id number] [place] [address]Gk# [phone] UA KETONE Negative Normal [facility] Comment on above: Performed By: #### L 600.34202 ####[facility] [id number] [place] [address]Zi# [phone] UA LK ESTERASE Negative Normal NEGATIVE [facility] Comment on above: Performed By: #### L 600.47291 ####[facility] [id number] [place] [address]Zd# [phone] UA NITRITE Negative Normal NEGATIVE [facility] Comment on above: Performed By: #### L 600.75455 ####[facility] [id number] [place] [address]Bq# [phone] UA PH 6.0 Normal [facility] Comment on above: Performed By: #### L 600.94623 ####[facility] [id number] [place] [address]Rm# [phone] UA PROTEIN Negative Normal NEGATIVE [facility] Comment on above: Performed By: #### L 600.12752 ####[facility] [id number] [place] [address]Vc# [phone] UA SPEC GRAV 1.010 Normal 1.005-1.030 [facility] Comment on above: Performed By: #### L 600.90606 ####[facility] [id number] [place], [place] [address]Gc# [phone] UA UROBILINOGEN Negative Normal [facility] Comment on above: Performed By: #### L 600.96201 ####[facility] [id number] [place], [place] [address]Zg# [phone] Urine, color Yellow Normal [facility] Comment on above: Performed By: #### L 600.32594 ####[facility] QDMTNNQHKO7469 [place], [place] [address]Qw# [phone] Urine, glucose Negative Normal [facility] Comment on above: Performed By: #### L 600.10314 ####[facility] [id number] [place], [place] [address]Oc# [phone] Vital Signs Date Time Vital Sign Value Performing Clinician Chandrika pizarro 06-05-2025 13:33-0400 Diastolic blood pressure 83 mm[Hg] Nigel Irizarry PA-C Work Phone: [facility] 06-05-2025 13:33-0400 Heart rate 90 /min Nigeljake Monzonicksen PA-C Work Phone: [facility] 06-05-2025 13:33-0400 Systolic blood pressure 152 mm[Hg] Nigel Monzonicksen PA-C Work Phone: [facility] 06-05-2025 10:56-0400 Diastolic blood pressure 72 mm[Hg] Nurse [place] Work Phone: [facility] 06-05-2025 10:56-0400 Systolic blood pressure 128 mm[Hg] Nurse [place] Work Phone: [facility] 05-30-2025 08:15-0400 Diastolic blood pressure 78 mm[Hg] Nurse [place] Work Phone: [facility] 05-30-2025 08:15-0400 Systolic blood pressure 126 mm[Hg] Nurse [place] Work Phone: [facility] 05-22-2025 08:28-0400 Diastolic blood pressure 70 mm[Hg] Nurse [place] Work Phone: [facility] 05-22-2025 08:28-0400 Systolic blood pressure 124 mm[Hg] Nurse [place] Work Phone: [facility] 04-17-2025 08:32-0400 Diastolic blood pressure 76 mm[Hg] Nurse [place] Work Phone: [facility] 04-17-2025 08:32-0400 Systolic blood pressure 128 mm[Hg] Nurse [place] Work Phone: [facility] 03-18-2025 08:44-0400 Diastolic blood pressure 68 mm[Hg] Nurse [place] Work Phone: [facility] 03-18-2025 08:44-0400 Systolic blood pressure 116 mm[Hg] Nurse [place] Work Phone: [facility] 03-04-2025 08:40-0400 Diastolic blood pressure 66 mm[Hg] Nurse [place] Work Phone: [facility] 03-04-2025 08:40-0400 Systolic blood pressure 146 mm[Hg] Nurse [place] Work Phone: [facility] 01-03-2025 07:47-0400 Body height 157.[address] [employer] Work Phone: [facility] 01-03-2025 07:47-0400 Body mass index (BMI) [Ratio] 22.61 kg/m2 Tanya Blake [employer] [employer] Work Phone: [facility] 01-03-2025 07:47-0400 Body weight 56.[address] [employer] Work Phone: [facility] 01-03-2025 07:47-0400 Diastolic blood pressure 50 mm[Hg] Tanya Blake [employer] [employer] Work Phone: [facility] 01-03-2025 07:47-0400 Heart rate 75 /min Tanya Blake [address] [employer] Work Phone: [facility] 01-03-2025 07:47-0400 Respiratory rate 18 /min Tanya Blake [address] [employer] Work Phone: [facility] 01-03-2025 07:47-0400 SaO2% (BldA) [Mass fraction] 99 % Tanya Blake [employer] [employer] Work Phone: [facility] 01-03-2025 07:47-0400 Systolic blood pressure 120 mm[Hg] Tanya Blake [address] [employer] Work Phone: [facility] 12-19-2024 10:59-0400 Diastolic blood pressure 70 mm[Hg] Tanya Blake [address] [employer] Work Phone: [facility] 12-19-2024 10:59-0400 Heart rate 52 /min Tanya [address] [employer] Work Phone: [facility] 12-19-2024 10:59-0400 Systolic blood pressure 168 mm[Hg] Tanya Blake [address] [employer] Work Phone: [facility] 12-19-2024 10:43-0400 Body height 157.[address] [employer] Work Phone: [facility] 12-19-2024 10:43-0400 Body mass index (BMI) [Ratio] 22.57 kg/m2 Tanya Blake [address] [employer] Work Phone: [facility] 12-19-2024 10:43-0400 Body weight 55.[address] [employer] Work Phone: [facility] 12-19-2024 10:43-0400 Respiratory rate 18 /min Tanya [address] [employer] Work Phone: [facility] 12-19-2024 10:43-0400 SaO2% (BldA) [Mass fraction] 98 % Tanya Blake [address] [employer] Work Phone: [facility] 12-03-2024 08:58-0400 Diastolic blood pressure 72 mm[Hg] Tanya Blake [address] [employer] Work Phone: [facility] 12-03-2024 08:58-0400 Systolic blood pressure 180 mm[Hg] Tanya Blake [address] [employer] Work Phone: [facility] 12-03-2024 07:58-0400 Body height 157.[address] [employer] Work Phone: [facility] 12-03-2024 07:58-0400 Body mass index (BMI) [Ratio] 22.31 kg/m2 Tanya Blake [address]RE[address] ROLLER ENGINEER.[employer] Work Phone: [facility] 12-03-2024 07:58-0400 Body temperature 97.5 [degF] Tanya Velezel STRE[address] ROLLER ENGINEER.[employer] Work Phone: [facility] 12-03-2024 07:58-0400 Body weight 55.[address] ROLLER ENGINEER.[employer] Work Phone: [facility] 12-03-2024 07:58-0400 Heart rate 64 /min Tanya Velezel [address] ROLLER ENGINEER.[employer] Work Phone: [facility] 12-03-2024 07:58-0400 Respiratory rate 16 /min Tanya Velezel [address] ROLLER ENGINEER.[employer] Work Phone: [facility] 12-03-2024 07:58-0400 SaO2% (BldA) [Mass fraction] 95 % Tanya Velezel STRE[address] ROLLER ENGINEER.[employer] Work Phone: [facility] 10-04-2024 15:17-0500 Diastolic blood pressure 60 mm[Hg] Genia Queden STRE[address] ROLLER ENGINEER.[employer] Work Phone: [facility] 10-04-2024 15:17-0500 Systolic blood pressure 146 mm[Hg] Genia Queden STRE[address] ROLLER ENGINEER.[employer] Work Phone: [facility] 10-04-2024 15:04-0500 Body height 157.[address] ROLLER ENGINEER.[employer] Work Phone: [facility] 10-04-2024 15:04-0500 Body mass index (BMI) [Ratio] 21.77 kg/m2 Genia Andradeden [address] ROLLER ENGINEER.[employer] Work Phone: [facility] 10-04-2024 15:04-0500 Body temperature 98.01 [degF] eGnia Andradeden STREET ROLLER ENGINEER.[employer] Work Phone: [facility] 10-04-2024 15:04-0500 Body weight 53.[address] ROLLER ENGINEER.[employer] Work Phone: [facility] 10-04-2024 15:04-0500 Heart rate 76 /min Genia Andradeden [address]RE[address] ROLLER ENGINEER.[employer] Work Phone: [facility] 10-04-2024 15:04-0500 SaO2% (BldA) [Mass fraction] 98 % Genia Huitron STRE[address] ROLLER ENGINEER.[employer] Work Phone: [facility] 07-18-2024 08:51-0400 Diastolic blood pressure 60 mm[Hg] Nurse [place] Work Phone: [facility] 07-18-2024 08:51-0400 Systolic blood pressure 156 mm[Hg] Nurse [place] Work Phone: [facility] 06-18-2024 12:59-0400 Diastolic blood pressure 78 mm[Hg] Nurse [place] Work Phone: [facility] 06-18-2024 12:59-0400 Systolic blood pressure 136 mm[Hg] Nurse [place] Work Phone: [facility] 04-23-2024 08:21-0400 Diastolic blood pressure 60 mm[Hg] Nurse [place] Work Phone: [facility] 04-23-2024 08:21-0400 Systolic blood pressure 170 mm[Hg] Nurse [place] Work Phone: [facility] 03-26-2024 11:31-0400 Diastolic blood pressure 60 mm[Hg] Nurse [place] Work Phone: [facility] 03-26-2024 11:31-0400 Systolic blood pressure 142 mm[Hg] Nurse [place] Work Phone: [facility] 12-07-2023 09:00-0400 Diastolic blood pressure 62 mm[Hg] Nurse [place] Work Phone: [facility] 12-07-2023 09:00-0400 Systolic blood pressure 138 mm[Hg] Nurse [place] Work Phone: [facility] 11-01-2023 08:13-0500 Diastolic blood pressure 60 mm[Hg] Nurse [place] Work Phone: [facility] 11-01-2023 08:13-0500 Systolic blood pressure 142 mm[Hg] Nurse [place] Work Phone: [facility] 08-25-2023 14:02-0500 Diastolic blood pressure 68 mm[Hg] Nurse [place] Work Phone: [facility] 08-25-2023 14:02-0500 Systolic blood pressure 130 mm[Hg] Nurse [place] Work Phone: [facility] 07-19-2023 08:54-0400 Diastolic blood pressure 60 mm[Hg] Tanya Blake [address] ROLLER ENGINEER.[employer] Work Phone: [facility] 07-19-2023 08:54-0400 Systolic blood pressure 158 mm[Hg] Tanya Blake [address] ROLLER ENGINEER.[employer] Work Phone: [facility] 07-19-2023 08:13-0400 Body height 154.[address] ROLLER ENGINEER.[employer] Work Phone: [facility] 07-19-2023 08:13-0400 Body temperature 98.2 [degF] Tanya Blake ST[address] ROLLER ENGINEER.[employer] Work Phone: [facility] 07-19-2023 08:13-0400 Body weight 56.[address] ROLLER ENGINEER.[employer] Work Phone: [facility] 07-19-2023 08:13-0400 Heart rate 55 /min Tanya Velezel [address] ROLLER ENGINEER.[employer] Work Phone: [facility] 07-19-2023 08:13-0400 Respiratory rate 18 /min Tanya Lozano [address]RE[address] ROLLER ENGINEER.[employer] Work Phone: [facility] 07-19-2023 08:13-0400 SaO2% (BldA) [Mass fraction] 100 % Tanya Lozano STRE[address] ROLLER ENGINEER.[employer] Work Phone: [facility] 07-13-2023 12:16-0400 Diastolic blood pressure 60 mm[Hg] Nurse [place] Work Phone: [facility] 07-13-2023 12:16-0400 Systolic blood pressure 138 mm[Hg] Nurse [place] Work Phone: [facility] 07-11-2023 08:18-0400 Diastolic blood pressure 60 mm[Hg] Nurse [place] Work Phone: [facility] 07-11-2023 08:18-0400 Systolic blood pressure 142 mm[Hg] Nurse [place] Work Phone: [facility] 06-15-2023 08:15-0400 Diastolic blood pressure 60 mm[Hg] Nurse [place] Work Phone: [facility] 06-15-2023 08:15-0400 Systolic blood pressure 156 mm[Hg] Nurse [place] Work Phone: [facility] 06-08-2023 08:34-0400 Diastolic blood pressure 60 mm[Hg] Nurse [place] Work Phone: [facility] 06-08-2023 08:34-0400 Systolic blood pressure 138 mm[Hg] Nurse [place] Work Phone: [facility] 05-05-2023 08:35-0400 Diastolic blood pressure 60 mm[Hg] Nurse [place] Work Phone: [facility] 08-10-2023 08:35-0400 Systolic blood pressure 138 mm[Hg] Nurse [place] Work Phone: [facility] 02-02-2023 08:12-0400 Diastolic blood pressure 72 mm[Hg] Nurse [place] Work Phone: [facility] 02-02-2023 08:12-0400 Systolic blood pressure 138 mm[Hg] Nurse [place] Work Phone: [facility] 01-13-2023 07:47-0400 Diastolic blood pressure 60 mm[Hg] Tanya Blake ST[address] ROLLER ENGINEER.[employer] Work Phone: [facility] 01-13-2023 07:47-0400 Systolic blood pressure 140 mm[Hg] Tanya Blake [address] ROLLER ENGINEER.[employer] Work Phone: [facility] 01-13-2023 07:18-0400 Body height 157.[address] ROLLER ENGINEER.[employer] Work Phone: [facility] 01-13-2023 07:18-0400 Body temperature 97.81 [degF] Tanya Blake ST[address] ROLLER ENGINEER.[employer] Work Phone: [facility] 01-13-2023 07:18-0400 Body weight 58.[address] ROLLER ENGINEER.[employer] Work Phone: [facility] 01-13-2023 07:18-0400 Heart rate 60 /min Tanya Blake [address] ROLLER ENGINEER.[employer] Work Phone: [facility] 01-13-2023 07:18-0400 Respiratory rate 18 /min Tanya Blake [address] ROLLER ENGINEER.[employer] Work Phone: [facility] 01-13-2023 07:18-0400 SaO2% (BldA) [Mass fraction] 99 % Tanya Blake STRE[address] ROLLER ENGINEER.[employer] Work Phone: [facility] 01-03-2023 11:23-0400 Diastolic blood pressure 70 mm[Hg] Nurse [place] Work Phone: [facility] 04-10-2023 11:23-0400 Systolic blood pressure 170 mm[Hg] Nurse [place] Work Phone: [facility] 12-02-2022 08:38-0500 Diastolic blood pressure 66 mm[Hg] Nurse [place] Work Phone: [facility] 12-02-2022 08:38-0500 Systolic blood pressure 124 mm[Hg] Nurse [place] Work Phone: [facility] 11-04-2022 08:20-0500 Diastolic blood pressure 80 mm[Hg] Nurse [place] Work Phone: [facility] 11-04-2022 08:20-0500 Systolic blood pressure 162 mm[Hg] Nurse [place] Work Phone: [facility] 09-13-2022 08:24-0500 Diastolic blood pressure 60 mm[Hg] Nurse [place] Work Phone: [facility] 09-13-2022 08:24-0500 Systolic blood pressure 152 mm[Hg] Nurse [place] Work Phone: [facility] 08-12-2022 08:22-0500 Diastolic blood pressure 78 mm[Hg] Nurse [place] Work Phone: [facility] 08-12-2022 08:22-0500 Systolic blood pressure 142 mm[Hg] Nurse [place] Work Phone: [facility] 07-15-2022 09:14-0400 Diastolic blood pressure 70 mm[Hg] Tanya Blake [address] ROLLER ENGINEER.[employer] Work Phone: [facility] 07-15-2022 09:14-0400 Systolic blood pressure 130 mm[Hg] Tanya Blake [address] ROLLER ENGINEER.[employer] Work Phone: [facility] 07-15-2022 08:49-0400 Body height 157.[address] ROLLER ENGINEER.[employer] Work Phone: [facility] 07-15-2022 08:49-0400 Body temperature 98.2 [degF] Tanya Blake ST[address] ROLLER ENGINEER.[employer] Work Phone: [facility] 07-15-2022 08:49-0400 Body weight 56.[address] ROLLER ENGINEER.[employer] Work Phone: [facility] 07-15-2022 08:49-0400 Heart rate 56 /min Tanya Blake [address] ROLLER ENGINEER.[employer] Work Phone: [facility] 07-15-2022 08:49-0400 Respiratory rate 18 /min Tanya Blake [address] ROLLER ENGINEER.[employer] Work Phone: [facility] 07-15-2022 08:49-0400 SaO2% (BldA) [Mass fraction] 98 % Tanya Lbake STRE[address] ROLLER ENGINEER.[employer] Work Phone: [facility] 06-03-2022 08:45-0400 Diastolic blood pressure 62 mm[Hg] Nurse [place] Work Phone: [facility] 06-03-2022 08:45-0400 Systolic blood pressure 148 mm[Hg] Nurse [place] Work Phone: [facility] 05-20-2022 08:27-0400 Diastolic blood pressure 70 mm[Hg] Nurse [place] Work Phone: [facility] 05-20-2022 08:27-0400 Systolic blood pressure 150 mm[Hg] Nurse [place] Work Phone: [facility] 04-19-2022 08:17-0400 Diastolic blood pressure 60 mm[Hg] Nurse [place] Work Phone: [facility] 04-19-2022 08:17-0400 Systolic blood pressure 142 mm[Hg] Nurse [place] Work Phone: [facility] 03-18-2022 08:29-0400 Diastolic blood pressure 56 mm[Hg] Nurse [place] Work Phone: [facility] 03-18-2022 08:29-0400 Systolic blood pressure 122 mm[Hg] Nurse [place] Work Phone: [facility] 03-08-2022 11:28-0400 Diastolic blood pressure 70 mm[Hg] Nurse [place] Work Phone: [facility] 03-08-2022 11:28-0400 Systolic blood pressure 142 mm[Hg] Nurse [place] Work Phone: [facility] 03-08-2022 11:07-0400 Heart rate 60 /min Nurse [place] Work Phone: [facility] 03-04-2022 08:35-0400 Diastolic blood pressure 62 mm[Hg] Nurse [place] Work Phone: [facility] 03-04-2022 08:35-0400 Systolic blood pressure 148 mm[Hg] Nurse [place] Work Phone: [facility] 03-01-2022 08:25-0400 Diastolic blood pressure 78 mm[Hg] Nurse [place] Work Phone: [facility] 03-01-2022 08:25-0400 Systolic blood pressure 138 mm[Hg] Nurse [place] Work Phone: [facility] 02-23-2022 08:41-0400 Diastolic blood pressure 80 mm[Hg] Nurse [place] Work Phone: [facility] 02-23-2022 08:41-0400 Systolic blood pressure 134 mm[Hg] Nurse [place] Work Phone: [facility] 02-16-2022 08:45-0400 Diastolic blood pressure 60 mm[Hg] Nurse [place] Work Phone: [facility] 02-16-2022 08:45-0400 Systolic blood pressure 148 mm[Hg] Nurse [place] Work Phone: [facility] 01-13-2022 09:41-0400 Diastolic blood pressure 60 mm[Hg] Tanya Blake [address] ROLLER ENGINEER.[employer] Work Phone: [facility] 01-13-2022 09:41-0400 Systolic blood pressure 142 mm[Hg] Tanya Blake [address] ROLLER ENGINEER.[employer] Work Phone: [facility] 01-13-2022 09:17-0400 Body height 157.[address] ROLLER ENGINEER.[employer] Work Phone: [facility] 01-13-2022 09:17-0400 Body temperature 98.2 [degF] Tanya Lozano STRE[address] ROLLER ENGINEER.[employer] Work Phone: [facility] 01-13-2022 09:17-0400 Body weight 59.[address] ROLLER ENGINEER.[employer] Work Phone: [facility] 01-13-2022 09:17-0400 Heart rate 51 /min Tanya Lozano ST[address] ROLLER ENGINEER.[employer] Work Phone: [facility] 01-13-2022 09:17-0400 Respiratory rate 18 /min Tanya Lozano [address] ROLLER ENGINEER.[employer] Work Phone: [facility] 01-13-2022 09:17-0400 SaO2% (BldA) [Mass fraction] 93 % Tanya Lozano STRE[address] ROLLER ENGINEER.[employer] Work Phone: [facility] 12-28-2021 08:13-0400 Diastolic blood pressure 62 mm[Hg] Nurse [place] Work Phone: [facility] 12-28-2021 08:13-0400 Systolic blood pressure 170 mm[Hg] Nurse [place] Work Phone: [facility] 12-17-2021 08:20-0400 Diastolic blood pressure 78 mm[Hg] Nurse [place] Work Phone: [facility] 12-17-2021 08:20-0400 Systolic blood pressure 138 mm[Hg] Nurse [place] Work Phone: [facility] 01-07-2021 19:00-0400 BP Diastolic 77 mm[Hg] [employer] Work Phone: 01-07-2021 19:00-0400 BP Systolic 141 mm[Hg] [employer] Work Phone: 01-07-2021 19:00-0400 Pulse (Heart Rate) 72 /min [employer] Work Phone: 01-07-2021 19:00-0400 Pulse Oximetry 100 % [employer] Work Phone: 01-07-2021 19:00-0400 Respiratory Rate 16 /min [employer] Work Phone: 01-07-2021 15:02-0400 BMI (Body Mass Index) 24.69 kg/m2 [employer] Work Phone: 01-07-2021 15:02-0400 Body Temperature 97.5 [degF] [employer] Work Phone: 01-07-2021 15:02-0400 Body weight 61.24 kg [employer] Work Phone: 06-20-2020 12:30-0400 Body Temperature 98.01 [degF] Tyree [employer], [place] 06-20-2020 12:30-0400 BP Diastolic 68 mm[Hg] [facility] [place] 06-20-2020 12:30-0400 BP Systolic 156 mm[Hg] Tyree [facility] [place] 06-20-2020 12:30-0400 Pulse (Heart Rate) 64 /min [facility] [place] 06-20-2020 12:30-0400 Pulse Oximetry 100 % [facility]ree [facility] [place] 06-20-2020 12:30-0400 Respiratory Rate 18 /min Tyree [employer], [place] 06-20-2020 07:14-0400 BMI (Body Mass Index) 24.14 kg/m2 Tyree [employer], [place] 06-20-2020 07:14-0400 Body weight 59.88 kg Tyree [facility] [place] 06-20-2020 07:14-0400 Height 157.5 cm Tyree [employer] [place] 06-13-2020 11:35-0400 Body Temperature 96.69 [degF] Tyree [employer], [place] 06-13-2020 11:35-0400 BP Diastolic 70 mm[Hg] [facility] [place] 06-13-2020 11:35-0400 BP Systolic 157 mm[Hg] [facility] [place] 06-13-2020 11:35-0400 Pulse (Heart Rate) 67 /min [facility] 06-13-2020 11:35-0400 Pulse Oximetry 98 % Tyree Hernandez [facility] , [place] 06-13-2020 11:34-0400 BMI (Body Mass Index) 24.14 kg/m2 [place] [facility] 06-13-2020 11:34-0400 Body weight 59.88 kg Tyree Hernandez [facility] [place] , [place] 06-13-2020 11:34-0400 Height 157.5 cm Tyree Hernandez [facility] , [place] 06-13-2020 11:34-0400 Respiratory Rate 16 /min [facility] [place] 05-30-2020 18:10-0400 BP Diastolic 66 mm[Hg] Seamus [facility] , [place] 05-30-2020 18:10-0400 BP Systolic 162 mm[Hg] Seamus Hernandez [employer] , [place] 05-30-2020 18:10-0400 Pulse (Heart Rate) 58 /min Seamus Hernandez [facility], [place] 05-30-2020 18:10-0400 Pulse Oximetry 97 % Seamus Hernandez [employer] [place] , [place] 05-30-2020 18:10-0400 Respiratory Rate 14 /min Seamus Fang [facility] [place] 05-30-2020 17:01-0400 BMI (Body Mass Index) 24.33 kg/m2 Seamus Fang [facility] 05-30-2020 17:01-0400 Body Temperature 97.59 [degF] Seamus Fang [facility] [place] 05-30-2020 17:01-0400 Body weight 60.33 kg Seamus Hernandez [employer] , [place] 05-30-2020 17:01-0400 Height 157.5 cm [facility] , [place] Encounters Encounter Date Encounter Type Care Provider Facility Start: 06-23-2025 End: 06-27-2025 Evaluation and management of inpatient DONNA CASILLAS Facility:[facility] Start: 06-20-2025 End: 06-20-2025 Emergency department patient visit TIERA JIMENEZ Facility:[facility] Start: 06-19-2025 End: 06-19-2025 ambulatory [facility] Start: 06-16-2025 End: 06-16-2025 Emergency department patient visit UNKNOWN PROVIDER Facility:[facility] Start: 06-06-2025 End: 06-06-2025 ambulatory Tanya Lozano APRN.[employer] Work Phone: [facility] Start: 06-06-2025 End: 06-06-2025 Follow-up encounter Tanya Lozano APRN.[employer] Work Phone: [facility] Comment on above: ED Follow Up ([place] [facility] 06/02/2025 ) Start: 06-05-2025 End: 06-05-2025 ambulatory NIGEL IRIZARRY Facility:[facility] Start: 06-05-2025 End: 06-05-2025 Patient encounter procedure Nigel Irizarry PA-C Work Phone: Otolaryngology Comment on above: Epistaxis (Primary D x) Start: 06-05-2025 End: 06-05-2025 Nursing evaluation of patient and report Nurse Cassandra Horan [place] Work Phone: [facility] Comment on above: Paroxysmal atrial fi brillation (HCC) (Primary Dx) Refill Request Start: 06-05-2025 End: 06-05-2025 ambulatory TANYA LOZANO Facility[facility] Start: 06-03-2025 End: 06-03-2025 Telephone encounter Tanya Lozano APRN.[employer] Work Phone: [facility] Comment on above: Patient Question Start: 06-01-2025 End: 06-02-2025 Emergency department patient visit TANYA LOZANO Facility:[facility] Start: 05-30-2025 End: 05-30-2025 Nursing evaluation of patient and report Nurse Cassandra Prado Work Phone: [facility] Comment on above: Atrial fibrillation, unspecified type (HCC) (Primary Dx) Start: 05-30-2025 End: 05-30-2025 ambulatory TANYA M BLAKE Facility:[facility] Start: 05-22-2025 End: 05-22-2025 Nursing evaluation of patient and report Nurse Cassandra Prado Work Phone: [facility] Comment on above: Paroxysmal atrial fi brillation (HCC) (Primary Dx) Start: 05-22-2025 End: 05-22-2025 ambulatory TANYA Jennifer VELEZEL Facility:[facility] Start: 04-27-2025 End: 04-27-2025 Emergency department patient visit TANYA M BLAKE Facility:[facility] Start: 04-17-2025 End: 04-17-2025 Nursing evaluation of patient and report Nurse Cassandra Prado Work Phone: [facility] Comment on above: Paroxysmal atrial fi brillation (HCC) (Primary Dx) Start: 04-17-2025 End: 04-17-2025 ambulatory TANYA Jennifer VELEZEL Facility:[facility] Start: 04-04-2025 End: 04-04-[address] ROLLER ENGINEER.[employer] Work Phone: [facility] Start: 04-04-2025 End: 04-04-2025 Follow-up encounter Tanya Lozano STREET ROLLER ENGINEER.[employer] Work Phone: [facility] Comment on above: ED Follow Up ([facility] 04/01/2025) Start: 04-01-2025 End: 04-01-2025 Emergency department patient visit TANYA LOZANO Facility:[facility] Start: 03-18-2025 End: 05-18-2025 Follow-up encounter Tanya Lozano STREET ROLLER ENGINEER.[employer] Work Phone: [facility] Start: 03-18-2025 End: 03-18-2025 ambulatory TANYA Jennifer LOZANO Facility:[facility] Start: 03-18-2025 End: 03-18-2025 Nursing evaluation of patient and report Nurse Cassandra Prado Work Phone: [facility] Comment on above: Paroxysmal atrial fi brillation (HCC) (Primary Dx) Start: 03-13-2025 End: 03-13-2025 Refill Tanya Lozano APRN.[employer] Work Phone: [facility] Comment on above: Refill Request Start: 03-04-2025 End: 05-04-2025 Follow-up encounter Tanya Lozano APRN.[employer] Work Phone: [facility] Start: 03-04-2025 End: 03-04-2025 Nursing evaluation of patient and report Nurse Cassandra Horan [place] Work Phone: [facility] Comment on above: Paroxysmal atrial fi brillation (HCC) (Primary Dx) Start: 03-04-2025 End: 03-04-2025 ambulatory TANYAUgo LOZANO Facility:[facility] Start: 02-04-2025 End: 04-06-2025 Follow-up encounter Tanya Lozano APRN.[employer] Work Phone: [facility] Start: 02-04-2025 End: 02-04-2025 Nursing evaluation of patient and report Nurse Cassandra Horna [place] Work Phone: [facility] Comment on above: Paroxysmal atrial fi brillation (HCC) (Primary Dx) Start: 02-04-2025 End: 02-04-2025 ambulatory TANYA Jennifer BLAKE Facility[facility] Start: 01-03-2025 End: 03-05-2025 Follow-up encounter Tanya Lozano APRN.[employer] Work Phone: [facility] Start: 01-03-2025 End: 01-03-2025 ambulatory TANYA Jennifer BLAKE Facility:[facility] Start: 01-03-2025 End: 01-03-2025 Patient encounter procedure Tanya Lozano STREET ROLLER ENGINEER.[employer] Work Phone: [facility] Comment on above: Essential hypertensi on, benign (Primary Dx); Hypothyroidism, unspecified type; Paroxysmal atrial fibrillation (HCC); Hyponatremia; Osteoporoses; Post-menopausal Start: 12-20-2024 End: 12-20-[address] ROLLER ENGINEER.[employer] Work Phone: [facility] Comment on above: Refill Request Start: 12-19-2024 End: 12-19-2024 Patient encounter procedure Tanya Lozano STREET ROLLER ENGINEER.[employer] Work Phone: [facility] Comment on above: Essential hypertensi on, benign (Primary Dx); Scalp lesion Start: 12-19-2024 End: 12-19-2024 ambulatory TANYA LOZANO Facility[facility] Start: 12-16-2024 End: 12-18-2024 Follow-up encounter Tanya Lozano APRN.[employer] Work Phone: [facility] Comment on above: Results Start: 12-15-2024 End: 12-15-2024 ambulatory TANYA LOZANO Facility:[facility] Start: 12-03-2024 End: 12-03-2024 Patient encounter procedure Tanya Lozano STREET ROLLER ENGINEER.[employer] Work Phone: [facility] Comment on above: Essential hypertensi on, benign (Primary Dx); Hypothyroidism, unspecified type; Vitamin D deficiency; Screening for lipid disorders Start: 12-03-2024 End: 12-03-2024 ambulatory TANYA LOZANO Facility[facility] Start: 11-30-2024 End: 12-02-2024 Telephone encounter Tanya Lozano STRE[address] ROLLER ENGINEER.[employer] Work Phone: [facility] Comment on above: Patient Update Start: 11-29-2024 [facility] Start: 11-29-2024 End: 11-29-2024 ambulatory TANYA LOZANO Facility:[facility] Start: 11-26-2024 End: 11-27-[address] ROLLER ENGINEER.[employer] Work Phone: [facility] Comment on above: Refill Request Start: 11-05-2024 End: 11-05-2024 Follow-up encounter Tanya Lozano APRN.[employer] Work Phone: [facility] Start: 11-02-2024 End: 11-02-2024 ambulatory TANYA M BLAKE Facility:[facility] Start: 10-29-2024 End: 10-29-2024 Telephone encounter Tanya Lozano APRN.[employer] Work Phone: [facility] Comment on above: Lab Orders Start: 10-15-2024 End: 10-15-2024 Documentation procedure Shirley Perales MD Work Phone: [facility] Start: 10-15-2024 End: 10-15-2024 Letter encounter Shirley Perales MD Work Phone: [facility] Start: 10-09-2024 End: 10-09-2024 Telephone encounter Tanya Lozano APRN.[employer] Work Phone: [facility] Comment on above: Coumadin/INR Orders (Mammogram or bryn) Start: 10-04-2024 End: 10-04-2024 Patient encounter procedure Genia Huitron STREET ROLLER ENGINEER.[employer] Work Phone: [facility] Comment on above: Essential hypertensi on, benign (Primary Dx); Fall at home, sequela; Hamstring injury, left, initial encounter; Hyponatremia; Atrial fibrillation, unspecified type (HCC) Start: 10-04-2024 End: 10-04-2024 ambulatory TANYA M BLAKE Facility:[facility] Start: 10-01-2024 End: 10-01-2024 ambulatory Vera Albert RN Work Phone: Financial Administration Officer Start: 10-01-2024 End: 10-01-2024 Home visit Vera Albert RN Work Phone: Financial Administration Officer Comment on above: Transition Of Care ( TCM f/u) Weekly phone contact (Recurring) for Transitional Care Management, Weekly phone contact (Recurring) for Transitional Care Management Start: 09-05-2024 End: 09-05-2024 ambulatory Vera Albert RN Work Phone: Financial Administration Officer Start: 09-05-2024 End: 09-05-2024 Home visit Vera Albert RN Work Phone: Financial Administration Officer Comment on above: Transition Of Care ( TCM f/u) Weekly phone contact (Recurring) for Transitional Care Management Refill Request; Prim stephen Cotton Stripper- Other Start: 08-30-2024 End: 09-05-2024 ambulatory Pau Rojas RN Financial Administration Officer Start: 08-30-2024 End: 09-05-2024 Home visit Pau Rojas RN Financial Administration Officer Comment on above: Transition Of Care ( Discharged from SNF to home with [facility] health care) Transition Of Care ( SNF D/C 08/29/24) Initial phone contact for Transitional Care Management Start: 08-29-2024 End: 08-29-2024 ambulatory Jorgeet Mckay OLS Facility:[facility] Start: 08-22-2024 ambulatory Bablucaset Mckay OLS Fac ility:[facility] Start: 08-21-2024 ambulatory Nicole Mckay OLS Fac ility:[facility] Start: 08-15-2024 End: 08-15-2024 ambulatory Pau Rojas RN AG Financial Administration Officer Start: 08-15-2024 End: 08-15-2024 Home visit Pau Rojas RN Financial Administration Officer Comment on above: Transition Of Care ( [facility] Discharge to SNF) Start: 08-15-2024 End: 08-15-2024 ambulatory Nicole KEENE Facility:[facility] Start: 08-13-2024 End: 08-13-2024 Telephone encounter Mirta Christian Work Phone: [facility] Comment on above: Home Care (Confirmat ion Call ) Start: 08-10-2024 End: 08-10-2024 Telephone encounter Tanya Lozano APRN.[employer]LE[employer]LETE Work Phone: [facility] Comment on above: Home Care (MD tyler fuentes) Start: 08-09-2024 End: 08-14-2024 Evaluation and management of inpatient TANYA LOZANO Facility:[facility] Start: 07-18-2024 End: 07-18-2024 ambulatory [facility] Jennifer BLAKE Facility:[facility] Start: 07-18-2024 End: 07-18-2024 Nursing evaluation of patient and report Nurse Intm Ag [place] Work Phone: [facility] Comment on above: Paroxysmal atrial fi brillation (HCC) (Primary Dx) Start: 06-18-2024 End: 06-18-2024 Nursing evaluation of patient and report Nurse Intm Ag [place] Work Phone: [facility] Comment on above: Paroxysmal atrial fi brillation (HCC) (Primary Dx) Start: 06-13-2024 End: 06-13-2024 Telephone encounter Tanya Lozano STREET ROLLER ENGINEER.[employer] Work Phone: [facility] Comment on above: Statement of Physici an Start: 05-30-2024 End: 05-30-2024 Telephone encounter Tanya Lozano STRE[address] ROLLER ENGINEER.[employer] Work Phone: [facility] Comment on above: Results Start: 05-07-2024 End: 05-07-2024 Nursing evaluation of patient and report Nurse Intm Ag [place] Work Phone: [facility] Comment on above: Paroxysmal atrial fi brillation (HCC) (Primary Dx) Start: 05-05-2024 End: 05-05-2024 ambulatory TANYA LOZANO Facility:[facility] Start: 04-23-2024 End: 04-23-2024 Nursing evaluation of patient and report Nurse Intm Ag [place] Work Phone: [facility] Comment on above: Paroxysmal atrial fi brillation (HCC) (Primary Dx) Start: 04-09-[address] ROLLER ENGINEER.[employer] Work Phone: [facility] Comment on above: Refill Request Start: 03-26-2024 End: 03-26-2024 Nursing evaluation of patient and report Nurse Intm Ag Eve Work Phone: [facility] Comment on above: Paroxysmal atrial fi brillation (HCC) (Primary Dx) Start: 03-06-[address] ROLLER ENGINEER.[employer] Work Phone: [facility] Comment on above: Refill Request Start: 02-06-2024 End: 02-06-2024 Nursing evaluation of patient and report Nurse Intm Ag [place] Work Phone: [facility] Comment on above: Paroxysmal atrial fi brillation (HCC) (Primary Dx) Start: 01-19-[address] ROLLER ENGINEER.[employer] Work Phone: [facility] Comment on above: Refill Request Start: 01-16-[address] ROLLER ENGINEER.[employer] Work Phone: [facility] Comment on above: Refill Request Start: 01-11-2024 Telephone encounter Tanya Lozano STRE[address] ROLLER ENGINEER.[employer] Work Phone: [facility] Comment on above: Results Start: 01-10-2024 Telephone encounter Tanya Lozano STRE[address] ROLLER ENGINEER.[employer] A[employer] Work Phone: [facility] Start: 12-07-2023 End: 12-07-2023 Nursing evaluation of patient and report Nurse Intm Ag [place] Work Phone: [facility] Comment on above: Paroxysmal atrial fi brillation (HCC) (Primary Dx) Start: 11-30-2023 End: 11-30-2023 Nursing evaluation of patient and report Nurse Famp Ag Eve Work Phone: [facility] Comment on above: Paroxysmal atrial fi brillation (HCC) (Primary Dx) Start: 11-01-2023 End: 11-01-2023 Nursing evaluation of patient and report Nurse Cassandra Prado Work Phone: [facility] Comment on above: Paroxysmal atrial fi brillation (HCC) (Primary Dx) Start: 09-29-2023 End: 09-29-2023 ambulatory CHRISTINA FRANCIS MD Facility:[facility] Start: 09-11-2023 Refill Tanya duncan APRN.[employer] Work Phone: [facility] Comment on above: Refill Request Start: 08-25-2023 End: 08-25-2023 Nursing evaluation of patient and report Nurse Cassandra Prado Work Phone: [facility] Comment on above: Paroxysmal atrial fi brillation (HCC) (Primary Dx) Start: 08-10-2023 Telephone encounter Tanya Lozano APRN.[employer] A[employer] Work Phone: [facility] Comment on above: Results Start: 08-09-2023 Documentation procedure Mammog dez Coordinator COUNTS INCLUDE [facility] BEDS AT [facility] Start: 08-09-2023 Letter encounter Mammography Coordinator CHAUNCEY ANCILLARY AREA NOT LISTED Start: 08-09-2023 Telephone encounter Tanya Lozano APRN.[employer]LE[employer] A[employer] Work Phone: [facility] Comment on above: Results Start: 08-03-2023 End: 08-03-2023 Subsequent hospital visit by physician Mammo/Bone Density [facility] [place] [facility] Comment on above: Post-menopausal [Z78 .0] Start: 07-28-2023 End: 07-28-2023 Nursing evaluation of patient and report Nurse Cassandra Horan [place] Work Phone: [facility] Comment on above: Paroxysmal atrial fi brillation (HCC) (Primary Dx) Start: 07-19-2023 End: 07-19-2023 Patient encounter procedure Tanya Lozano APRN.RBUIO Work Phone: [facility] Comment on above: Medicare annual well ness visit, subsequent (Primary Dx); Post-menopausal Start: 07-14-2023 Refill Tanya duncan APRN.[employer]LE[employer] A[employer]LETE Work Phone: [facility] Comment on above: Refill Request Start: 07-13-2023 End: 07-13-2023 Nursing evaluation of patient and report Nurse Cassandra Prado Work Phone: [facility] Comment on above: Paroxysmal atrial fi brillation (HCC) (Primary Dx) Start: 07-11-2023 End: 07-11-2023 Nursing evaluation of patient and report Nurse Cassandra Prado Work Phone: [facility] Comment on above: Paroxysmal atrial fi brillation (HCC) (Primary Dx) Start: 06-15-2023 End: 06-15-2023 Nursing evaluation of patient and report Nurse Cassandra Prado Work Phone: [facility] Comment on above: Paroxysmal atrial fi brillation (HCC) (Primary Dx) Start: 06-08-2023 End: 06-08-2023 Nursing evaluation of patient and report Nurse Cassandra Prado Work Phone: [facility] Comment on above: Paroxysmal atrial fi brillation (HCC) (Primary Dx) Start: 05-05-2023 End: 05-05-2023 Nursing evaluation of patient and report Nurse Cassandra Prado Work Phone: [facility] Comment on above: Paroxysmal atrial fi brillation (HCC) (Primary Dx) Start: 02-02-2023 End: 02-02-2023 Nursing evaluation of patient and report Nurse Cassandra Prado Work Phone: [facility] Comment on above: Paroxysmal atrial fi brillation (HCC) (Primary Dx) Start: 01-19-2023 Telephone encounter aTnya Lozano APRN.[employer] Work Phone: [facility] Comment on above: Results (Labs ) Start: 01-17-2023 ambulatory Tanya duncan APRN.[employer] A[employer] Work Phone: [facility] Comment on above: ER F/U Start: 01-13-2023 End: 01-13-2023 Patient encounter procedure Tanya Lozano APRN.[employer]LE[employer] A[employer]LETE Work Phone: [facility] Comment on above: Essential hypertensi on, benign (Primary Dx); Paroxysmal atrial fibrillation (HCC); TIA (transient ischemic attack); Hypothyroidism, unspecified type; Gastroesophageal reflux disease without esophagitis; Vitamin D deficiency; Screening for lipid disorders Start: 01-10-2023 Telephone encounter Tanya Lozano APRN.[employer]LE[employer] ATHLETE Work Phone: [facility] Comment on above: Patient Update Start: 01-03-2023 End: 01-03-2023 Nursing evaluation of patient and report Nurse Intm Ag Eve Work Phone: [facility] Comment on above: Paroxysmal atrial fi brillation (HCC) (Primary Dx) Start: 12-09-2022 Refill Tanya duncan APRN.[employer] A[employer] Work Phone: [facility] Comment on above: Refill Request Start: 12-02-2022 End: 12-02-2022 Nursing evaluation of patient and report Nurse Intm Ag Eve Work Phone: [facility] Comment on above: Paroxysmal atrial fi brillation (HCC) (Primary Dx) Start: 11-17-2022 Refill Tanya duncan APRN.[employer] A[employer] Work Phone: [facility] Comment on above: Refill Request Start: 11-04-2022 End: 11-04-2022 Nursing evaluation of patient and report Nurse Intm Ag Eve Work Phone: [facility] Comment on above: Atrial fibrillation, unspecified type (HCC) (Primary Dx) Start: 09-13-2022 End: 09-13-2022 Nursing evaluation of patient and report Nurse Intm Ag [place] Work Phone: [facility] Comment on above: Atrial fibrillation, unspecified type (HCC) (Primary Dx) Start: 08-12-2022 End: 08-12-2022 Nursing evaluation of patient and report Nurse Intm Ag [place] Work Phone: [facility] Comment on above: Paroxysmal atrial fi brillation (HCC) (Primary Dx) Refill Request Start: 07-15-2022 End: 07-15-2022 Patient encounter procedure Tanya Lozano STREET ROLLER ENGINEER.[employer] Work Phone: [facility] Comment on above: Essential hypertensi on, benign (Primary Dx); Paroxysmal atrial fibrillation (HCC); Hypothyroidism, unspecified type; Gastroesophageal reflux disease without esophagitis Start: 06-16-[address] ROLLER ENGINEER.[employer] Work Phone: [facility] Comment on above: Refill Request Start: 06-03-2022 End: 06-03-2022 Nursing evaluation of patient and report Nurse Cassandra Prado Work Phone: [facility] Comment on above: Paroxysmal atrial fi brillation (HCC) (Primary Dx) Start: 05-20-2022 End: 05-20-2022 Nursing evaluation of patient and report Nurse Cassandra Prado Work Phone: [facility] Comment on above: Paroxysmal atrial fi brillation (HCC) (Primary Dx) Start: 04-19-2022 End: 04-19-2022 Nursing evaluation of patient and report Nurse Intjennifer Prado Work Phone: [facility] Comment on above: Paroxysmal atrial fi brillation (HCC) (Primary Dx) Start: 03-18-2022 End: 03-18-2022 Nursing evaluation of patient and report Nurse Intjennifer Prado Work Phone: [facility] Comment on above: Paroxysmal atrial fi brillation (HCC) (Primary Dx) Start: 03-08-2022 End: 03-08-2022 Nursing evaluation of patient and report Nurse Intjennifer Prado Work Phone: [facility] Comment on above: Essential hypertensi on, benign (Primary Dx) Start: 03-04-2022 End: 03-04-2022 Nursing evaluation of patient and report Nurse Intjennifer Prado Work Phone: [facility] Comment on above: Atrial fibrillation, unspecified type (HCC) (Primary Dx) Start: 03-01-2022 End: 03-01-2022 Nursing evaluation of patient and report Nurse Cassandra Aung Ramosi Work Phone: [facility] Comment on above: Atrial fibrillation, unspecified type (HCC) (Primary Dx) Start: 02-26-2022 Telephone encounter Tanya Lozano APRN.[employer]LE[employer] ATH[employer] Work Phone: [facility] Comment on above: Appointment Start: 02-23-2022 End: 02-23-2022 Nursing evaluation of patient and report Nurse Cassandra Aung Prado Work Phone: [facility] Comment on above: Atrial fibrillation, unspecified type (HCC) (Primary Dx) Start: 02-16-2022 End: 02-16-2022 Nursing evaluation of patient and report Nurse Cassandra Aung Prado Work Phone: [facility] Comment on above: Paroxysmal atrial fi brillation (HCC) (Primary Dx) Start: 01-14-2022 Telephone encounter Tanya Lozano APRN.RUBIO Work Phone: [facility] Comment on above: Results Start: 01-13-2022 End: 01-13-2022 Patient encounter procedure Tanya Lozano APRN.[employer]LE[employer] ATHLETE Work Phone: [facility] Comment on above: Essential hypertensi on, benign (Primary Dx); Paroxysmal atrial fibrillation (HCC); Hypothyroidism, unspecified type; Gastroesophageal reflux disease without esophagitis; Vitamin D deficiency; TIA (transient ischemic attack); Mixed stress and urge urinary incontinence Start: 01-11-2022 Telephone encounter Tanya Lozano APRN.RUBIO Work Phone: [facility] Comment on above: Missed Appointment Start: 12-28-2021 End: 12-28-2021 Nursing evaluation of patient and report Nurse Tonyjennifer Prado Work Phone: [facility] Comment on above: Essential hypertensi on, benign (Primary Dx) Start: 12-17-2021 End: 12-17-[address] ROLLER ENGINEER.[employer]LE[employer] A[employer] Work Phone: [facility] Comment on above: Refill Request Chronic anticoagulat ion (Primary Dx) Start: 08-03-2021 End: 08-03-2021 Subsequent hospital visit by physician Ricci Robbins Work Phone: [facility] Laboratory Start: 07-30-2021 End: 07-30-2021 Telephone encounter Patricia Vazquez MD Work Phone: Gastroenterology Comment on above: Appointment Start: 07-16-2021 End: 07-16-2021 Subsequent hospital visit by physician Andreas Casillas MD Work Phone: [facility] Start: 06-22-2021 End: 06-22-2021 Subsequent hospital visit by physician Nara Hdz STRE[address] ROLLER ENGINEER - [employer] Work Phone: [facility] Start: 05-07-2021 End: 05-07-2021 Subsequent hospital visit by physician Ricci Robbins Work Phone: [facility] Radiology Start: 02-24-2021 End: 02-24-2021 Subsequent hospital visit by physician Larissa Wynn STRE[address] ROLLER ENGINEER - [employer] Work Phone: [facility] Start: 01-07-2021 End: 01-07-2021 Emergency department patient visit Kodak Salazar Work Phone: [facility] ED Comment on above: Altered mental statu s, unspecified altered mental status type (Primary Dx); Epigastric pain; Non-intractable vomiting with nausea, unspecified vomiting type Start: 08-25-2020 End: 08-25-2020 Subsequent hospital visit by physician Ricci Robbins Other Phone: [facility] Start: 06-20-2020 End: 06-20-2020 Subsequent hospital visit by physician Tyree Crews Work Phone: [facility] General Surgery Comment on above: Spontaneous rupture of extensor tendon of left ankle (Primary Dx) Start: 06-13-2020 End: 06-13-2020 Subsequent hospital visit by physician Tyree Crews Work Phone: [facility] Pre-Admit Testing Comment on above: Arrived Start: 06-11-2020 End: 06-11-2020 Subsequent hospital visit by physician Tyree Crews Work Phone: [facility] Comment on above: Arrived Start: 05-30-2020 End: 05-30-2020 Emergency department patient visit Seamus Fang Work Phone: [facility] ED Comment on above: Lightheaded (Primary Dx); Hypertension, unspecified type; Chronic hyponatremia Start: 03-15-2018 Ambulatory Ricci Adame y:[facility] Procedures Date Procedure Procedure Detail Performing Clinician Start: 05-30-2025 Prothrombin time [facility] Pr ovider Start: 03-18-2025 Prothrombin time [facility] Pr ovider Start: 02-04-2025 Prothrombin time [facility] Pr ovider Start: 01-03-2025 Prothrombin time Kayden Lozano STRE[address] ROLLER ENGINEER.[employer] Work Phone: Start: 10-04-2024 Prothrombin time Brittn y Fredrick Huitron STRE[address] ROLLER ENGINEER.[employer] Work Phone: Start: 07-18-2024 Prothrombin time [facility] Pr ovider Start: 05-07-2024 Prothrombin time [facility] Pr ovider Start: 04-23-2024 Prothrombin time [facility] Pr ovider Start: 03-26-2024 Prothrombin time [facility] Pr ovider Start: 12-07-2023 Prothrombin time Ccf Pr ovider Start: 11-30-2023 Prothrombin time [facility] Pr ovider Start: 11-01-2023 Prothrombin time [facility] Pr ovider Start: 07-19-2023 Prothrombin time Kayden Lozano STRE[address] ROLLER ENGINEER.[employer] Work Phone: Start: 07-11-2023 Prothrombin time [facility] Pr ovider Start: 06-15-2023 Prothrombin time [facility] Pr ovider Start: 06-08-2023 Prothrombin time [facility] Pr ovider Start: 05-05-2023 Prothrombin time Ccf Pr ovider Start: 02-02-2023 Prothrombin time Ccf Pr ovider Start: 01-03-2023 Prothrombin time Ccf Pr ovider Start: 11-04-2022 Prothrombin time Ccf Pr ovider Start: 09-13-2022 Prothrombin time Ccf Pr ovider Start: 08-12-2022 Prothrombin time Ccf Pr ovider Start: 07-15-2022 Prothrombin time Kayden Lozano STRE[address] ROLLER ENGINEER.[employer] Work Phone: Start: 06-03-2022 Prothrombin time Ccf Pr ovider Start: 04-19-2022 Prothrombin time Ccf Pr ovider Start: 03-18-2022 Prothrombin time Ccf Pr ovider Start: 03-04-2022 Prothrombin time Ccf Pr ovider Start: 03-01-2022 Prothrombin time Ccf Pr ovider Start: 02-23-2022 Prothrombin time Ccf Pr ovider Start: 02-16-2022 Prothrombin time C[facility] Pr ovider Start: 01-13-2022 Prothrombin time Kaydensoha Chambers Blake [address] ROLLER ENGINEER.[employer] Work Phone: Start: 12-17-2021 Prothrombin time [facility] Pr ovider Start: 08-03-2021 Comprehensive metabo lic panel Patricia Vazquez MD Work Phone: Start: 07-16-2021 Assay of lipase Andreas Casillas MD Work Phone: Start: 06-22-2021 End: 06-22-2021 Comprehensive metabolic panel Nara Hdz STRE[address] ROLLER ENGINEER - [facility] Work Phone: Start: 02-24-2021 Comprehensive metabo lic panel Larissa Wynn STRE[address] ROLLER ENGINEER - [facility] Work Phone: Start: 01-07-2021 CT Abdomen and Pelvi s W contrast IV Kodak Ugo Martin Work Phone: Start: 01-07-2021 Assay of lipase Kodak Salazar Work Phone: Start: 01-07-2021 Assay of troponin quantitative Kodak Olmedoisinger Work Phone: Start: 01-07-2021 Comprehensive metabo lic panel Kodak Olmedoisinger Work Phone: Start: 01-07-2021 Ct head/brain w/o co ntrast material Kodak Salazar Work Phone: Start: 01-07-2021 Blood count complete auto&auto difrntl wbc Kodak Salazar Work Phone: Start: 08-25-2020 Assay of thyroid stimulating hormone tsh Ricci Robbins Other Phone: Start: 08-25-2020 Comprehensive metabo lic panel Ricci Robbins Other Phone: Start: 08-25-2020 Lipid panel Ricci Robbins Other Phone: Start: 06-13-2020 Comprehensive metabo lic panel Nabil Myers Work Phone: Start: 06-11-2020 Mri any jt lower ext rem w/o contrast matrl Tyree Crews Work Phone: Start: 05-30-2020 Blood count complete automated Seamus Fang Work Phone: Start: 05-30-2020 Comprehensive metabo lic panel Seamus Fang Work Phone: Start: 05-30-2020 Ecg routine ecg w/le ast 12 lds w/i&r Seamus Fang Work Phone: Plan of Treatment Date Care Activity Detail Author Start: 08-09-2034 Urine microalbumin profile DTaP,Tdap,Td Vaccine (2 - Td or Tdap) [facility] Start: 11-30-2027 Diabetes Screening Diabetes Screening [facility] Start: 11-27-2027 Diabetes Screening Diabetes Screening [facility] Start: 08-14-2027 Diabetes Screening Diabetes Screening [facility] Start: 08-12-2027 Diabetes Screening Diabetes Screening [facility] Start: 08-10-2027 Diabetes Screening Diabetes Screening [facility] Start: 05-25-2027 Diabetes Screening Diabetes Screening [facility] Start: 10-06-2026 Diabetes Screening Diabetes Screening [facility] Start: 09-08-2026 Diabetes Screening Diabetes Screening [facility] Start: 04-12-2026 DIABETES SCREEN DIABETES SCREEN [facility] Start: 04-12-2026 Diabetes Screening Diabetes Screening [facility] Start: 01-17-2026 DIABETES SCREEN DIABETES SCREEN [facility] Start: 12-20-2025 DIABETES SCREEN DIABETES SCREEN [facility] Start: 10-04-2025 Anxiety Screening Anxiety Screening [facility] Comment on above: Postponed from 1953 (Declined at t his time) Start: 10-04-2025 Covid-19 Vaccine () Covid-19 Vaccine () [facility] Comment on above: Postponed from 05/27/2024 (Declined at t his time) Start: 10-04-2025 Pneumococcal Vaccine: 50+ (1 of 2 - PCV) Pneumococcal Vaccine: 50+ (1 of 2 - PCV) [facility] Comment on above: Postponed from 1955 (Declined at t his time) Start: 10-04-2025 RSV Vaccine (1 - 1-dose 75+ series) RSV Vaccine (1 - 1-dose 75+ series) [facility] Comment on above: Postponed from 2011 (Declined at t his time) Start: 08-31-2025 DIABETES SCREEN DIABETES SCREEN [facility] Start: 07-22-2025 End: 07-22-2025 Patient encounter procedure 07/22/2025 2:40 PM EDT Office Visit Otolaryngology [address] [place] [address] Nigel Irizarry PA-C [address] [place] [address] Return in about 4 weeks (around 07/03/2025) Otolaryngology Comment on above: Return in about 4 weeks (around ) Start: 07-09-2025 End: 07-09-2025 Patient encounter procedure 07/09/2025 8:20 AM EDT Office Visit [facility] [address] [place] [address] Tanya Lozano, STREET ROLLER ENGINEER.[facility] [address] [place] [address] Medicare Wellness [facility] Comment on above: Medicare Wellness Start: 06-19-2025 End: 06-19-2025 Nursing evaluation of patient and report 06/19/2025 8:20 AM EDT Nurse Visit [address] [address] PT/INR [facility] Comment on above: PT/INR Start: 06-06-2025 End: 06-06-2025 Nursing evaluation of patient and report 06/06/2025 8:20 AM EDT Nurse Visit [address] [address] PT/INR [facility] Comment on above: PT/INR Start: 06-05-2025 End: 06-05-2025 Patient encounter procedure 06/05/2025 1:25 PM EDT Office Visit Otolaryngology [address] [place] [address] Nigel Irizarry PA-C [address] [place], [place] [id number] Epistaxis with packing Otolaryngology Comment on above: Epistaxis with packing Start: 06-05-2025 End: 06-05-2025 Nursing evaluation of patient and report 06/05/2025 10:40 AM EDT Nurse Visit [address] [address] PT/INR [facility] Comment on above: PT/INR Start: 05-30-2025 End: 05-30-2025 Nursing evaluation of patient and report 05/30/2025 8:20 AM EDT Nurse Visit [address] [address] PT/INR [facility] Comment on above: PT/INR Start: 05-27-2025 Influenza vaccination [facility] Start: 05-20-2025 End: 05-20-2025 Nursing evaluation of patient and report 05/20/2025 8:40 AM EDT Nurse Visit [address] [address] PT/INR [facility] Comment on above: PT/INR Start: 04-27-2025 DIABETES SCREEN DIABETES SCREEN [facility] Start: 04-17-2025 End: 04-17-2025 Nursing evaluation of patient and report 04/17/2025 8:20 AM EDT Nurse Visit [address] [address] PT/INR [facility] Comment on above: PT/INR Start: 03-25-2025 Influenza [facility] Comment on above: Postponed from 05/27/2024 (Declined at t his time) Start: 03-18-2025 End: 03-18-2025 Nursing evaluation of patient and report 03/18/2025 8:20 AM EDT Nurse Visit [address] [address] PT/INR [facility] Comment on above: PT/INR Start: 03-04-2025 End: 03-04-2025 Nursing evaluation of patient and report 03/04/2025 8:20 AM EDT Nurse Visit [address] [address] INR [facility] Comment on above: INR Start: 02-04-2025 End: 02-04-2025 Nursing evaluation of patient and report 02/04/2025 8:20 AM EDT Nurse Visit [address] [address] PT/INR [facility] Comment on above: PT/INR Start: 01-13-2025 DIABETES SCREEN DIABETES SCREEN [facility] Start: 01-03-2025 End: 01-03-2025 Patient encounter procedure 01/03/2025 7:40 AM EDT Office Visit [address] [address] Tanya Lozano, STREET ROLLER ENGINEER.[address] [address] 3 MTH f/U [facility] Comment on above: 3 MTH f/U Start: 12-19-2024 End: 12-19-2024 Patient encounter procedure 12/19/2024 10:40 AM EDT Office Visit [facility] [address] [place] [address] Tanya Lozano APRN.[employer]LEGE [employer]LETE [address] [place] [address] 2 WK F/U Blood Pressure [facility] Comment on above: 2 WK F/U Blood Pressure Start: 12-03-2024 End: 03-04-2025 25-hydroxyvitamin D3 [Mass/volume] in Serum or Plasma VITAMIN D 25 HYDROXY Lab Routine Vitamin D deficiency Expected: 12/03/2024, Expires: 03/04/2025 [facility] Comment on above: Expected: 12/03/2024, Expires: Start: 12-03-2024 End: 03-04-2025 Lipid 1996 panel - Serum or Plasma LIPID PANEL BASIC Lab Routine Screening for lipid disorders Expected: 12/03/2024, Expires: 03/04/2025 [facility] Work Phone: Comment on above: Expected: 12/03/2024, Expires: Start: 12-03-2024 End: 03-04-2025 Thyrotropin [Units/volume] in Serum or Plasma THYROID STIMULATING HORMONE Lab Routine Hypothyroidism, unspecified type Expected: 12/03/2024, Expires: 03/04/2025 [facility] Comment on above: Expected: 12/03/2024, Expires: Start: 12-03-2024 End: 03-04-2025 Thyroxine (T4) free [Mass/volume] in Serum or Plasma T4 FREE/FREE THYROXINE Lab Routine Hypothyroidism, unspecified type Expected: 12/03/2024, Expires: 03/04/2025 [facility] Comment on above: Expected: 12/03/2024, Expires: Start: 12-03-2024 End: 12-03-2024 Patient encounter procedure 12/03/2024 8:00 AM EDT Office Visit [facility] [address] [place] [address] Tanya Lozano, STREET ROLLER ENGINEER.[employer] [address] [place] [address] high blood pressure [facility] Comment on above: high blood pressure Start: 11-01-2024 End: 11-01-2024 Patient encounter procedure 11/01/2024 10:30 AM EST Appointment [facility] [address] [place] [address] edmar screen [facility] Comment on above: edmar screen Start: 11-01-2024 End: 11-01-2024 Nursing evaluation of patient and report 11/01/2024 8:20 AM EST Nurse Visit [facility] [address] [place] [address] PT/INR [facility] Comment on above: PT/INR Start: 10-29-2024 End: 01-28-2025 PT panel - Platelet poor plasma by Coagulation assay PROTHROMBIN TIME Lab Routine Paroxysmal atrial fibrillation (HCC) Expected: 10/29/2024, Expires: 01/28/2025 [facility] Work Phone: Comment on above: Expected: 10/29/2024, Expires: Start: 10-20-2024 DIABETES SCREEN DIABETES SCREEN [facility] Start: 10-04-2024 End: 10-04-2024 Patient encounter procedure 10/04/2024 3:20 PM EST Office Visit [address] [address] Genia Huitron APRN.[employer]LEGE ATHLETE [address] [place] [address] Reschedule of Charlenes from 09/18/ Pt may need INR/ [facility] Comment on above: Reschedule of Charlenes from 09/18/ Pt m ay need INR/ Start: 09-26-2024 Medicare Advantage Annual Wellness Visit Medicare Advantage Annual Wellness Visit [facility] Start: 09-18-2024 End: 09-18-2024 Patient encounter procedure 09/18/2024 11:20 AM EST Office Visit [facility] [address] [place] [address] Tanya Lozano, STREET ROLLER ENGINEER.[employer] [address] [place] [address] [facility] D/C 08/29/24 - Fall, Injury to L hamstring, L hip & L thigh [facility] Comment on above: [facility] D/C 08/29/24 - Fall, Injury to L hamstring, L hip & L thigh Start: 08-20-2024 End: 08-20-2024 Patient encounter procedure 08/20/2024 9:40 AM EST Office Visit [facility] [address] [place] [address] Tanya Lozano, STREET ROLLER ENGINEER.[employer] [address] [place] [address] DM follow up / PT/INR [facility] Comment on above: DM follow up / PT/INR Start: 07-19-2024 Covid-19 Vaccine ( season) Covid-19 Vaccine ( season) [facility] Comment on above: Postponed from 05/27/2023 (Declined at t his time) Start: 07-19-2024 Pneumococcal Vaccine: 65+ (1 - PCV) Pneumococcal Vaccine: 65+ (1 - PCV) [facility] Comment on above: Postponed from 2001 (Declined at t his time) Start: 07-19-2024 Pneumococcal Vaccine: 65+ (1 of 2 - PCV) Pneumococcal Vaccine: 65+ (1 of 2 - PCV) [facility] Comment on above: Postponed from 1942 (Declined at t his time) Start: 07-19-2024 RSV Vaccine (1 - 1-dose 60+ series) RSV Vaccine (1 - 1-dose 60+ series) [facility] Comment on above: Postponed from 1996 (Declined at t his time) Start: 07-19-2024 RSV Vaccine (1 - 1-dose 75+ series) RSV Vaccine (1 - 1-dose 75+ series) [facility] Comment on above: Postponed from 2011 (Declined at t his time) Start: 07-18-2024 End: 07-18-2024 Nursing evaluation of patient and report 07/18/2024 8:20 AM EDT Nurse Visit [address] [address] PT/INR [facility] Comment on above: PT/INR Start: 06-18-2024 End: 06-18-2024 Nursing evaluation of patient and report 06/18/2024 8:20 AM EDT Nurse Visit [address] [address] PT/INR [facility] Comment on above: PT/INR Start: 06-07-2024 End: 06-07-2024 Nursing evaluation of patient and report 06/07/2024 8:40 AM EDT Nurse Visit [address] [id number] pt inr [facility] Comment on above: pt inr Start: 05-27-2024 Covid-19 Vaccine ( season) Covid-19 Vaccine ( season) [facility] Start: 05-27-2024 Covid-19 Vaccine ( season) Covid-19 Vaccine ( season) [facility] Start: 05-27-2024 Influenza vaccination [facility] Start: 05-07-2024 End: 05-07-2024 Nursing evaluation of patient and report 05/07/2024 8:20 AM EDT Nurse Visit [address] [address] PT/INR [facility] Comment on above: PT/INR Start: 04-23-2024 End: 04-23-2024 Nursing evaluation of patient and report 04/23/2024 8:40 AM EDT Nurse Visit [address] [address] PT/INR [facility] Comment on above: PT/INR Start: 03-25-2024 Influenza vaccination Influenza Vaccine (#1) [facility] Comment on above: Postponed from 05/27/2023 (Declined at t his time) Start: 02-07-2024 End: 02-07-2024 Patient encounter procedure 02/07/2024 7:40 AM EDT Office Visit [facility] [address] [place] [address] Tanya Lozano APRN.[employer]LE[employer] A[employer]LETE [address] [place] [address] 4 MTH F/U HTN and Thyroid [facility] Comment on above: 4 MTH F/U HTN and Thyroid Start: 01-14-2024 Urine microalbumin profile [facility] Comment on above: Postponed from 1955 (Declined at t his time) Start: 09-26-2023 Behavioral Health Screening Behavioral Health Screening [facility] Start: 09-26-2023 Depression Assessment Depression Assessment [facility] Start: 07-15-2023 COVID-19 VACCINE (4 - Booster) COVID-19 VACCINE (4 - Booster) [facility] Comment on above: Postponed from 09/16/2021 (Declined at t his time) Start: 07-15-2023 COVID-19 VACCINE (4 - Mixed Product series) COVID-19 VACCINE (4 - Mixed Product series) [facility] Comment on above: Postponed from 09/16/2021 (Declined at t his time) Start: 07-15-2023 Pneumococcal Vaccine: 65+ (1 - PCV) Pneumococcal Vaccine: 65+ (1 - PCV) [facility] Comment on above: Postponed from 2001 (Declined at t his time) Start: 07-15-2023 PNEUMOCOCCAL: 65+ (1 - PCV) PNEUMOCOCCAL: 65+ (1 - PCV) [facility] Comment on above: Postponed from 2001 (Declined at t his time) Start: 05-27-2023 Covid-19 Vaccine ( season) Covid-19 Vaccine ( season) [facility] Start: 05-27-2023 Influenza vaccination [facility] Start: 03-25-2023 Influenza vaccination INFLUENZA (#1) [facility] Comment on above: Postponed from 05/27/2022 (Declined at t his time) Start: 01-13-2023 End: 03-15-2023 25-hydroxyvitamin D3 [Mass/volume] in Serum or Plasma VITAMIN D 25 HYDROXY Lab Routine Vitamin D deficiency Expected: 01/13/2023, Expires: 03/15/2023 [facility] Work Phone: Comment on above: Expected: 01/13/2023, Expires: 3 Start: 01-13-2023 End: 03-15-2023 Comprehensive metabolic 2000 panel - Serum or Plasma COMP METABOLIC PANEL Lab Routine Essential hypertension, benign Expected: 01/13/2023, Expires: 03/15/2023 [facility] Work Phone: Comment on above: Expected: 01/13/2023, Expires: 3 Start: 01-13-2023 End: 03-15-2023 Lipid 1996 panel - Serum or Plasma LIPID PANEL BASIC Lab Routine Screening for lipid disorders Expected: 01/13/2023, Expires: 03/15/2023 [facility] Work Phone: Comment on above: Expected: 01/13/2023, Expires: 3 Start: 01-13-2023 End: 03-15-2023 Thyrotropin [Units/volume] in Serum or Plasma TSH BLD Lab Routine Hypothyroidism, unspecified type Expected: 01/13/2023, Expires: 03/15/2023 [facility] Work Phone: Comment on above: Expected: 01/13/2023, Expires: 3 Start: 09-26-2022 ADVANCE DIRECTIVE DISCUSSION ADVANCE DIRECTIVE DISCUSSION [facility] Start: 09-26-2022 DEPRESSION ASSESSMENT DEPRESSION ASSESSMENT [facility] Start: 09-25-2022 DEPRESSION ASSESSMENT DEPRESSION ASSESSMENT [facility] Comment on above: Postponed from 09/26/2021 (Declined at t his time) Start: 06-22-2022 Creatinine measurement [facility] Start: 06-22-2022 Potassium monitoring Potassium monitoring [facility] Start: 06-05-2022 Creatinine measurement Creatinine monitoring [facility] Work Phone: Start: 06-05-2022 Potassium monitoring Potassium monitoring [facility] Work Phone: Start: 05-27-2022 Influenza vaccination [facility] Start: 03-25-2022 Influenza vaccination INFLUENZA (#1) [facility] Comment on above: Postponed from 05/27/2021 (Declined at t his time) Start: 02-24-2022 Creatinine measurement Creatinine monitoring [facility] Work Phone: Start: 02-24-2022 Potassium monitoring Potassium monitoring [facility] Work Phone: Start: 01-13-2022 End: 03-15-2022 T4 FREE/FREE THYROX [facility] Work Phone: Comment on above: Expected: 01/13/2022, Expires: Start: 01-13-2022 End: 03-15-2022 VITAMIN D 25 HYDROXY [facility] Work Phone: Comment on above: Expected: 01/13/2022, Expires: Start: 01-07-2022 Creatinine measurement Creatinine monitoring [facility] Work Phone: Start: 01-07-2022 Potassium monitoring Potassium monitoring [facility] Work Phone: Start: 11-22-2021 COVID-19 VACCINE (4 - Booster) COVID-19 VACCINE (4 - Booster) [facility] Start: 09-26-2021 ADVANCE DIRECTIVE DISCUSSION ADVANCE DIRECTIVE DISCUSSION [facility] Start: 09-16-2021 COVID-19 VACCINE (4 - Booster) COVID-19 VACCINE (4 - Booster) [facility] Start: 08-25-2021 Creatinine measurement Creatinine monitoring [facility] [place] Start: 08-25-2021 Potassium monitoring Potassium monitoring [facility] [place], [place] Start: 08-25-2021 Thyroid stimulating hormone measurement TSH testing [facility] Start: 08-25-2021 TSH Qn TSH testing [employer] [place], [place] Start: 07-30-2021 End: 07-30-2022 Amylase [Enzymatic activity/volume] in Serum or Plasma AMYLASE BLD Lab Routine Gallstone pancreatitis Expected: 07/30/2021, Expires: 07/30/2022 [facility] Comment on above: Expected: 07/30/2021, Expires: 2 Start: 07-30-2021 End: 07-30-2022 CBC W Auto Differential panel - Blood CBC + DIFF Lab Routine Gallstone pancreatitis Expected: 07/30/2021, Expires: 07/30/2022 [facility] Comment on above: Expected: 07/30/2021, Expires: 2 Start: 07-30-2021 End: 07-30-2022 Comprehensive metabolic 2000 panel - Serum or Plasma COMP METABOLIC PANEL Lab Routine Gallstone pancreatitis Expected: 07/30/2021, Expires: 07/30/2022 [facility] Comment on above: Expected: 07/30/2021, Expires: 2 Start: 07-03-2021 COVID-19 Vaccine (3 - Pfizer booster) COVID-19 Vaccine (3 - Pfizer booster) [facility] Start: 06-13-2021 Creatinine measurement Creatinine monitoring [facility]99tests , [place] Start: 06-13-2021 Potassium monitoring Potassium monitoring [facility] [employer] [place] Start: 05-30-2021 Creatinine measurement [facility] [place] Start: 05-30-2021 Potassium monitoring Potassium monitoring [facility] [place] Start: 05-27-2021 Influenza vaccination [facility] Start: 06-20-2020 Hospital Encounter 06/20/2020 Hospital Encounter General Surgery Tyree Crews, DPM [address] [place] [id number] [facility] General Surgery Start: 05-27-2020 Influenza vaccination Flu vaccine (#1) [facility] [place] Start: 03-14-2020 Creatinine measurement Creat[facility] [place] Start: 03-14-2020 Lipid panel Lipid screen [facility] [place] Start: 03-14-2020 Potassium monitoring Potassium monitoring [facility] [employer] [place] Start: 03-14-2020 TSH Qn TSH testing [facility] [place] Start: 03-14-2019 Annual Wellness Visit (AWV) Annual Wellness Visit (AWV) [facility] Start: 2011 RSV Vaccine (1 - 1-dose 75+ series) RSV Vaccine (1 - 1-dose 75+ series) [facility] Start: 2001 ADVANCE DIRECTIVE DISCUSSION ADVANCE DIRECTIVE DISCUSSION [facility] Start: 2001 BONE DENSITY BONE DENSITY [facility] Start: 2001 Pneumococcal 65+ years Vaccine (1 of 1 - PPSV23) Pneumococcal 65+ years Vaccine (1 of 1 - PPSV23) [facility] Start: 2001 PNEUMOCOCCAL: 65+ (1 - PCV) PNEUMOCOCCAL: 65+ (1 - PCV) [facility] Start: 2001 PNEUMOVAX AGE 65 AND OVER WITH 5YR LOOKBACK (#1) PNEUMOVAX AGE 65 AND OVER WITH 5YR LOOKBACK (#1) [facility] Start: 1996 RSV Vaccine (1 - 1-dose 60+ series) RSV Vaccine (1 - 1-dose 60+ series) [facility] Start: 1991 Screening for osteoporosis DEXA (modify frequency per FRAX score) [facility] Start: 1986 Shingles Vaccine (1 of 2) Shingles Vaccine (1 of 2) [facility] Start: 1986 SHINGRIX VACCINE (1 of 2) SHINGRIX VACCINE (1 of 2) [facility] Start: 1981 DIABETES SCREEN DIABETES SCREEN [facility] Start: 1955 DTaP/Tdap/Td vaccine (1 - Tdap) DTaP/Tdap/Td vaccine (1 - Tdap) [facility] Start: 1955 Pneumococcal Vaccine: 50+ (1 of 2 - PCV) Pneumococcal Vaccine: 50+ (1 of 2 - PCV) [facility] Start: 1955 Urine microalbumin profile [facility] Start: 1954 Anxiety Screening Anxiety Screening [facility] Start: 1954 Depression Screening Depression Screening [facility] Start: 1952 COVID-19 Vaccine (1) COVID-19 Vaccine (1) [facility] Work Phone: Start: 1948 COVID-19 Vaccine (1) COVID-19 Vaccine (1) [facility] Work Phone: Start: 1942 Pneumococcal Vaccine: 65+ (1 of 2 - PCV) Pneumococcal Vaccine: 65+ (1 of 2 - PCV) [facility] End: 01-07-2021 CK CK Lab STAT One Time for 1 Occurrences starting 01/07/2021 until 01/07/2021 [employer] Work Phone: Comment on above: One Time for 1 Occurrences starting 12/25 until 01/07/2021 End: 02-02-2026 DXA Skeletal system.axial Views for bone density DXA-AXIAL SKELETON Radiology Routine Osteoporoses Post-menopausal 1 Occurrences starting 01/03/2025 until 02/02/2026 [facility] Comment on above: 1 Occurrences starting 01/03/2025 until 02/02/2026 End: 08-17-2024 DXA-AXIAL SKELETON DXA-AXIAL SKELETON Radiology Routine Post-menopausal 1 Occurrences starting 07/19/2023 until 08/17/2024 [facility] Work Phone: Comment on above: 1 Occurrences starting 07/19/2023 until 08/17/2024 DXA-AXIAL SKELETON DXA-AXIAL SKE LETON Radiology Routine Post-menopausal 08/03/2023 10:59 AM EST [facility] Work Phone: EKG 12 Lead - Chest Pain EKG 12 Lead - Chest Pain ECG STAT 05/30/2020 4:56 PM EDT [place], [place] End: 02-24-2021 Gliadin Antibodies, Serum Gliadin Antibodies, Serum Lab Routine Once for 1 Occurrences starting 02/24/2021 until 02/24/2021 [employer] Work Phone: Comment on above: Once for 1 Occurrences starting 02/25/20 21 until 02/24/2021 Gliadin Antibodies, Serum Gliadin Antibodies, Serum Lab Routine 02/24/2021 8:50 AM EDT [facility] Work Phone: INR in Platelet poor plasma by Coagulation assay INR (POC) Lab Routine Chronic anticoagulation Ordered: 12/17/2021 [facility] Work Phone: Comment on above: Ordered: 12/17/2021 INR in Platelet poor plasma by Coagulation assay INR (POC) Lab Routine Paroxysmal atrial fibrillation (HCC) Ordered: 02/16/2022 [facility] Work Phone: Comment on above: Ordered: 02/16/2022 INR in Platelet poor plasma by Coagulation assay INR (POC) Lab Routine Atrial fibrillation, unspecified type (HCC) Ordered: 02/23/2022 [facility] Work Phone: Comment on above: Ordered: 02/23/2022 INR in Platelet poor plasma by Coagulation assay INR (POC) Lab Routine Atrial fibrillation, unspecified type (HCC) Ordered: 03/01/2022 [facility] Work Phone: Comment on above: Ordered: 03/01/2022 INR in Platelet poor plasma by Coagulation assay INR (POC) Lab Routine Paroxysmal atrial fibrillation (HCC) Ordered: 05/20/2022 [facility] Work Phone: Comment on above: Ordered: 05/20/2022 INR in Platelet poor plasma by Coagulation assay INR (POC) Lab Routine Paroxysmal atrial fibrillation (HCC) Ordered: 06/03/2022 [facility] Work Phone: Comment on above: Ordered: 06/03/2022 INR in Platelet poor plasma by Coagulation assay INR (POC) Lab Routine Atrial fibrillation, unspecified type (HCC) Ordered: 09/14/2022 [facility] Work Phone: Comment on above: Ordered: 09/14/2022 INR in Platelet poor plasma by Coagulation assay INR (POC) Lab Routine Paroxysmal atrial fibrillation (HCC) Ordered: 12/02/2022 [facility] Work Phone: Comment on above: Ordered: 12/02/2022 INR in Platelet poor plasma by Coagulation assay INR (POC) Lab Routine Paroxysmal atrial fibrillation (HCC) Ordered: 05/05/2023 [facility] Work Phone: Comment on above: Ordered: 05/05/2023 INR in Platelet poor plasma by Coagulation assay INR (POC) Lab Routine Paroxysmal atrial fibrillation (HCC) Ordered: 06/08/2023 [facility] Work Phone: Comment on above: Ordered: 06/08/2023 INR in Platelet poor plasma by Coagulation assay INR (POC) Lab Routine Paroxysmal atrial fibrillation (HCC) Ordered: 06/15/2023 [facility] Work Phone: Comment on above: Ordered: 06/15/2023 INR in Platelet poor plasma by Coagulation assay INR (POC) Lab Routine Paroxysmal atrial fibrillation (HCC) Ordered: 07/11/2023 [facility] Work Phone: Comment on above: Ordered: 07/11/2023 INR in Platelet poor plasma by Coagulation assay INR (POC) Lab Routine Paroxysmal atrial fibrillation (HCC) Ordered: 07/13/2023 [facility] Work Phone: Comment on above: Ordered: 07/13/2023 INR in Platelet poor plasma by Coagulation assay INR (POC) Lab Routine Ordered: 07/19/2023 [facility] Work Phone: Comment on above: Ordered: 07/19/2023 INR in Platelet poor plasma by Coagulation assay INR (POC) Lab Routine Paroxysmal atrial fibrillation (HCC) Ordered: 08/01/2023 [facility] Work Phone: Comment on above: Ordered: 08/01/2023 INR in Platelet poor plasma by Coagulation assay INR (POC) Lab Routine Paroxysmal atrial fibrillation (HCC) Ordered: 08/25/2023 [facility] Work Phone: Comment on above: Ordered: 08/25/2023 INR in Platelet poor plasma by Coagulation assay INR (POC) Lab Routine Paroxysmal atrial fibrillation (HCC) Ordered: 11/01/2023 [facility] Work Phone: Comment on above: Ordered: 11/01/2023 INR in Platelet poor plasma by Coagulation assay INR (POC) Lab Routine Paroxysmal atrial fibrillation (HCC) Ordered: 11/30/2023 [facility] Work Phone: Comment on above: Ordered: 11/30/2023 INR in Platelet poor plasma by Coagulation assay INR (POC) Lab Routine Paroxysmal atrial fibrillation (HCC) Ordered: 02/06/2024 [facility] Work Phone: Comment on above: Ordered: 02/06/2024 INR in Platelet poor plasma by Coagulation assay INR (POC) Lab Routine Paroxysmal atrial fibrillation (HCC) Ordered: 03/26/2024 [facility] Work Phone: Comment on above: Ordered: 03/26/2024 INR in Platelet poor plasma by Coagulation assay INR (POC) Lab Routine Paroxysmal atrial fibrillation (HCC) Ordered: 04/23/2024 [facility] Work Phone: Comment on above: Ordered: 04/23/2024 INR in Platelet poor plasma by Coagulation assay INR (POC) Lab Routine Paroxysmal atrial fibrillation (HCC) Ordered: 05/07/2024 [facility] Work Phone: Comment on above: Ordered: 05/07/2024 INR in Platelet poor plasma by Coagulation assay INR (POC) Lab Routine Paroxysmal atrial fibrillation (HCC) Ordered: 06/18/2024 [facility] Work Phone: Comment on above: Ordered: 06/18/2024 INR in Platelet poor plasma by Coagulation assay INR (POC) Lab Routine Paroxysmal atrial fibrillation (HCC) Ordered: 07/18/2024 [facility] Work Phone: Comment on above: Ordered: 07/18/2024 INR in Platelet poor plasma by Coagulation assay INR (POC) Lab Routine Atrial fibrillation, unspecified type (HCC) Ordered: 10/04/2024 [facility] Work Phone: Comment on above: Ordered: 10/04/2024 INR in Platelet poor plasma by Coagulation assay INR (POC) Lab Routine Paroxysmal atrial fibrillation (HCC) Ordered: 01/03/2025 [facility] Work Phone: Comment on above: Ordered: 01/03/2025 INR in Platelet poor plasma by Coagulation assay INR (POC) Lab Routine Paroxysmal atrial fibrillation (HCC) Ordered: 02/04/2025 [facility] Work Phone: Comment on above: Ordered: 02/04/2025 INR in Platelet poor plasma by Coagulation assay INR (POC) Lab Routine Paroxysmal atrial fibrillation (HCC) Ordered: 03/04/2025 [facility] Work Phone: Comment on above: Ordered: 03/04/2025 INR in Platelet poor plasma by Coagulation assay INR (POC) Lab Routine Paroxysmal atrial fibrillation (HCC) Ordered: 03/18/2025 [facility] Work Phone: Comment on above: Ordered: 03/18/2025 INR in Platelet poor plasma by Coagulation assay INR (POC) Lab Routine Paroxysmal atrial fibrillation (HCC) Ordered: 04/17/2025 [facility] Work Phone: Comment on above: Ordered: 04/17/2025 INR in Platelet poor plasma by Coagulation assay INR (POC) Lab Routine Paroxysmal atrial fibrillation (HCC) Ordered: 05/22/2025 [facility] Work Phone: Comment on above: Ordered: 05/22/2025 INR in Platelet poor plasma by Coagulation assay INR (POC) Lab Routine Atrial fibrillation, unspecified type (HCC) Ordered: 05/30/2025 [facility] Work Phone: Comment on above: Ordered: 05/30/2025 INR in Platelet poor plasma by Coagulation assay INR (POC) Lab Routine Paroxysmal atrial fibrillation (HCC) Ordered: 06/05/2025 [facility] Work Phone: Comment on above: Ordered: 06/05/2025 End: 06-20-2020 Intermittent pulse oximetry Pulse Oximetry Spot Check Respiratory Care Routine One Time for 1 Occurrences starting 06/20/2020 [facility]: One Time for 1 Occurrences starting 05/28 until 06/20/2020 End: 07-30-2022 Lipase [Enzymatic activity/volume] in Serum or Plasma LIPASE BLD Lab Routine Gallstone pancreatitis 1 Occurrences starting 07/30/2021 until 07/30/2022 [facility] Comment on above: 1 Occurrences starting 07/30/2021 until 07/30/2022 Oxygen therapy [Minimum Data Set] Initiate Oxygen Therapy Protocol Respiratory Care Routine Daily until discontinued starting 06/20/[address] [facility] Comment on above: Daily until discontinued starting 2019 Phase I & II - meter ed glucose Phase I & II - metered glucose Point of Care Testing Routine As Needed until discontinued starting 06/20/[address] [facility] Comment on above: As Needed until discontinued starting Prothrombin time INR FINGERSTICK B/O Lab Routine Paroxysmal atrial fibrillation (HCC) Ordered: 01/13/2022 [facility] Work Phone: Comment on above: Ordered: 01/13/2022 Prothrombin time INR FINGERSTICK B/O Lab Routine Atrial fibrillation, unspecified type (HCC) Ordered: 03/04/2022 [facility] Work Phone: Comment on above: Ordered: 03/04/2022 Prothrombin time INR FINGERSTICK B/O Lab Routine Paroxysmal atrial fibrillation (HCC) Ordered: 03/18/2022 [facility] Work Phone: Comment on above: Ordered: 03/18/2022 Prothrombin time INR FINGERSTICK B/O Lab Routine Paroxysmal atrial fibrillation (HCC) Ordered: 04/19/2022 [facility] Work Phone: Comment on above: Ordered: 04/19/2022 Prothrombin time INR FINGERSTICK B/O Lab Routine Paroxysmal atrial fibrillation (HCC) Ordered: 08/12/2022 [facility] Work Phone: Comment on above: Ordered: 08/12/2022 Prothrombin time INR FINGERSTICK B/O Lab Routine Atrial fibrillation, unspecified type (HCC) Ordered: 11/04/2022 [facility] Work Phone: Comment on above: Ordered: 11/04/2022 Prothrombin time INR FINGERSTICK B/O Lab Routine Paroxysmal atrial fibrillation (HCC) Ordered: 01/03/2023 [facility] Work Phone: Comment on above: Ordered: 01/03/2023 Prothrombin time INR FINGERSTICK B/O Lab Routine Paroxysmal atrial fibrillation (HCC) Ordered: 02/02/2023 [facility] Work Phone: Comment on above: Ordered: 02/02/2023 End: 01-09-2025 PT panel - Platelet poor plasma by Coagulation assay PROTHROMBIN TIME Lab Routine Paroxysmal atrial fibrillation (HCC) 99 Occurrences starting 01/10/2024 until 01/09/2025, 1 completed [facility] Work Phone: Comment on above: 99 Occurrences starting 01/10/2024 until 01/09/2025, 1 completed Spirometry panel [facility] [place] [facility] Respiratory Care Routine Q1H PRN until discontinued starting 06/20/2020 [facility] [place] [place] Comment on above: Q1H PRN until discontinued starting 05/28 End: 02-24-2021 Tissue Transglutaminase, IgA Tissue Transglutaminase, IgA Lab Routine Once for 1 Occurrences starting 02/24/2021 until 02/24/2021 [facility] Work Phone: Comment on above: Once for 1 Occurrences starting 02/25/20 21 until 02/24/2021 Tissue Transglutaminase, IgA Tissue Transglutaminase, IgA Lab Routine 02/24/2021 8:50 AM EDT [facility] Work Phone: End: 01-07-2021 Urinalysis Urinalysis Lab STAT One Time for 1 Occurrences starting 01/07/2021 until 01/07/2021 [facility] Work Phone: Comment on above: One Time for 1 Occurrences starting 12/25 until 01/07/2021 End: 05-07-2021 XR LUMBAR SPINE (MIN 4 VIEWS) XR LUMBAR SPINE (MIN 4 VIEWS) Imaging Routine Once for 1 Occurrences starting 05/07/2021 until 05/07/2021 [facility] Work Phone: Comment on above: Once for 1 Occurrences starting 05/07/20 21 until 05/07/2021 XR LUMBAR SPINE (MIN 4 VIEWS) XR LUMBAR SPINE (MIN 4 VIEWS) Imaging Routine 05/07/2021 2:32 PM EDT [facility] Work Phone: [facility] Immunizations Immunization Date Immunization Notes Care Provider [facility] 08-09-2024 tetanus toxoid, redu arvin diphtheria toxoid, and acellular pertussis vaccine, adsorbed Tanya Blake [employer] [employer] Work Phone: [facility] 07-22-2021 COVID-19 vaccine (UNSPECIFIED) Tanya Lozano [employer] Work Phone: [facility] 01-01-2021 COVID-19 vaccine (UNSPECIFIED) Tanya Blake [employer] [employer] ENGINE[employer] Work Phone: [facility] 12-10-2020 COVID-19 vaccine (UNSPECIFIED) Tanya Blake [employer] 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 2022 Medicare [id number] 2021 Medicare UHC MEDICARE UHC MEDICARE ADVANTAGE PPO [id number] 2021-Present [phone] [address] [address] [place] [address] PPO [id number] 2021 Medicare [id number] 2020 Unknown [employer] [id number] 2020-Present Indemnity [id number] 2014 Medicare [id number] 2014 Medicare MEDICARE MEDICAR E PART A AND B [id number] 2014-Present [phone] [place] [address] [id number] 2014 Unknown [employer]ALE[employer]DR TORRES OD OF ELECTRIC IBEW [id number] 2014-Present [address] [place] [address] [id number] 2001 Medicare MEDICARE MEDICAR E A AND B [id number] 2001-Present [place] Medicare [id number] 2001 Unknown [id number] 1936 Unknown [id number] 1936 Unknown [id number] Private Health Insurance Unknown [id number] Unknown [id number] Unknown [id number] Unknown [id number] Social History Date Type Detail Facility Start: 05-30-2020 End: 01-14-2023 Tobacco smoking status NHIS Never smoker [facility] Start: 05-30-2020 End: 01-14-2023 Tobacco use and exposure Never used [facility] [address] Start: 05-30-2020 End: 06-05-2025 Alcohol intake Current drinker of alcohol (finding) [facility] Start: 1935 Sex Assigned At Not on file M MARY Sewell Start: 12-07-2021 End: 08-12-2022 Exposure to SARS-CoV-2 (event) Not sure [facility] Start: 06-13-2020 Alcohol Comment rare Mary mcmahon MARY ONEIL Start: 07-29-2021 Tobacco smoking stat us NHIS Unknown if ever smoked [facility] Start: 08-09-2021 History SDOH Alcohol Comment Rarely [facility] Start: 01-14-2023 End: 02-02-2023 History of Social function [facility] Work Phone: Start: 01-14-2023 End: 02-02-2023 Tobacco use panel [facility] Work Phone: Start: 08-27-2012 Adult Depression Screening Assessment 0 [facility] Work Phone: Has the [employer], or [employer] threatened to shut off services in your home in past 12Mo No [facility] Are you now , , , , never or living with a partner? [facility] How often to you hav e a drink containing alcohol? Never [facility] (I/We) worried valarie er (my/our) food would run out before (I/we) got money to buy more. Never true [facility] Medical Equipment Procedure Code Equipment Code Equipment Origin al Text Equipment Identifier Dates [employer] Panc Jesus nt Strt Lb [id number] Start: 08-07-2021 Functional Status Date Assessment Result Facility 08-14-2024 Are you deaf, or do you have serious difficulty hearing No 08/14/2024 12:12 PM Diana Hwang, TASNEEM No [facility] 08-14-2024 Are you blind, or do you have serious difficulty seeing, even when wearing glasses No 08/14/2024 12:12 PM Diana Hwang RN No [facility] 08-14-2024 Do you have serious difficulty walking or climbing stairs No 08/14/2024 12:12 PM Diana Hwang RN No [facility] 08-14-2024 Do you have difficul ty dressing or bathing No 08/14/2024 12:12 PM Diana Hwang RN No [facility] 08-14-2024 Because of a physica l, mental, or emotional condition, do you have difficulty doing errands alone such as visiting a physician's office or shopping Yes 08/14/2024 12:12 PM Diana Hwang RN Yes [facility] Mental Status Date Assessment Result Facility 08-14-2024 Because of a physica l, mental, or emotional condition, do you have serious difficulty concentrating, remembering, or making decisions No 08/14/2024 12:12 PM Diana Hwang RN No [facility] Clinical Notes 06-06-2021 to 06-28-2025 Corrine Birmingham LPN - 06/06/2025 10:03 AM EDTPatient Nigel Martin PA-C - 06/05/2025 1:31 PM EDTTelephone Encounter - Corrine Birmingham LPN - 06/05/2025 11:04 AM EDT Note Date & Type Note Facility 06-28-2025 Note HNO ID: [id number] Author: NIKKI TARIQ RN Service: ? Author Type: Registered Nurse Type: Progress Notes Filed: 06/28/2025 07:29 Note Text: TRANSITION CARE MANAGEMENT (TCM) DISCHARGE TO POST ACUTE FACILITY POST ACUTE TRANSFER SUMMARY: -Pt discharged from [facility] on 06/27/2025. -Post Acute Facility Admitted to [facility] -Admitted for: Hyponatremia PCP's office will be notified when he/she discharges. Nikki Tariq RN June 28, 2025 7:28 AM [facility] 06-28-2025 Note Patient Outreach (AG ACM) HELEN LIEBERMAN ([id number]) 1935 F Date Time Provider Department 06/28/25 NIKKI TARIQ During your visit today, we recorded the following information about you: Nikki Tariq RN 06/28/2025 7:29 AM Signed TRANSITION CARE MANAGEMENT (TCM) DISCHARGE TO POST ACUTE FACILITY POST ACUTE TRANSFER SUMMARY: -Pt discharged from [facility] on 06/27/2025. -Post Acute Facility Admitted to [facility] -Admitted for: Hyponatremia PCP's office will be notified when he/she discharges. Nikki Tariq RN June 28, 2025 7:28 AM Allergies As of Date: 06/28/2025 Noted Allergy Reaction AMLODIPINE 08/11/2024 14 - Other: See Comments Comments: Very intense leg cramps CHLORTHALIDONE 06/24/2025 14 - Other: See Comments Comments: Causes hyponatremia HCTZ (HYDROCHLOROTHIAZIDE) 06/27/2025 5 - Intolerance Comments: Hyponatremia PENICILLINS 07/24/2021 16 - Unknown SULFA (SULFONAMIDE ANTIBIOTICS) 07/24/2021 16 - Unknown TETRACYCLINES 07/24/2021 16 - Unknown Date Reviewed: 06/27/2025 Reviewed by: Prisca Abebe RN - Fully Assessed Reason for Visit: Transition Of Care [4074] Cmt: [facility] discharged to [facility] Prescriptions as of 06/28/2025 - losartan (COZAAR) 25 mg tablet Take 1 tablet by mouth once daily. - sodium chloride 0.65 % nasal spray Use 2 sprays in the nose five times a day. - sodium chloride-aloe vera (AYR SALINE) topical nasal gel 1 application by INTRANASAL route three times a day. - Oxymetazoline HCl (AFRIN, OXYMETAZOLINE,) 0.05 % mist Use 1 spray in the nose as needed (as needed with active nosebleed). - warfarin (COUMADIN) 2 mg tablet Take 1 tablet by mouth daily as directed. - levothyroxine (SYNTHROID) 75 mcg tablet Take 1 tablet by mouth daily before breakfast. - carvedilol (COREG) 25 mg tablet 1 tablet with food Orally Twice a day for 90 days - pantoprazole DR (PROTONIX) 40 mg tablet Take 1 tablet by mouth once daily. - warfarin (COUMADIN) 3 mg tablet Take 1 tablet by mouth once daily. - acetaminophen (TYLENOL) 500 mg tablet Take 2 tablets by mouth every 8 hours. - magnesium oxide (MAG-OX) 400 mg (241.3 mg magnesium) tablet Take 1 tablet by mouth once daily. - polyethylene glycol 3350 (MIRALAX, GLYCOLAX) 17 gram packet Take 17 g by mouth once daily. Dissolve dose in 4 - 8 ounces of liquid and take as directed. - Cholecalciferol, Vitamin D3, 50 mcg (2,000 unit) cap Take by mouth once daily. Problem List As Of Date 06/28/2025 Noted Resolved Essential hypertension, benign [I10] 03/20/2015 Hypothyroidism [E03.9] 03/20/2015 Atrial fibrillation (HCC) [I48.91] 07/29/2021 TIA (transient ischemic attack) [G45.9] 08/09/2021 GERD (gastroesophageal reflux disease) [K21.9] 08/09/2021 Vertigo [R42] 08/09/2021 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9] 08/25/2021 Syncope [R55] 09/07/2023 09/08/2023 Syncope and collapse [R55] 09/07/2023 09/08/2023 Chronic diastolic CHF (congestive heart failure*09/08/2023 Hx-TIA (transient ischemic attack) [Z86.73] 08/09/2024 Hyponatremia [E87.1] 08/09/2024 06/27/2025 Elevated troponin level [R79.89] 08/09/2024 Fall at home, sequela [W19.XXXS, Y92.009] 08/09/2024 Left hip pain [M25.552] 08/09/2024 Hematoma of left thigh [S70.12XA] 08/09/2024 Hamstring injury, left, initial encounter [S76.*08/10/2024 Weakness [R53.1] 06/23/2025 06/27/2025 Hypokalemia [E87.6] 06/23/2025 06/27/2025 Hypochloremia [E87.8] 06/23/2025 06/27/2025 Advanced care planning/counseling discussion [Z*06/23/2025 Encounter Status:Closed by NIKKI TARIQ on 06/28/25 [facility] 06-27-2025 Note HNO ID: [id number] Author: SUSIE MORRISON RN Service: Care Management Author Type: Registered Nurse Type: Care Mgt Progress Note Filed: 06/27/2025 13:21 Note Text: CARE MANAGEMENT DISCHARGE NOTE SERVICE DATE: June 27, 2025 SERVICE TIME: 1:19 PM Admission Date: 06/23/2025 LOS: 3 days Discharge Arrangement Discharge Arrangement: Alf Facility Was an expedited discharge program used?: No Services Arranged SNF Placement Provider Name: [facility] Caregiver Assessment Caregiver is ready, willing and able to meet the patient's needs as recommended by the inter-professional team: Yes Name of Caregiver: 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 Aware of potential cost associated with medical transport SIGNATURE: Susie Morrison RN PATIENT NAME: Helen Lieberman DATE: June 27, 2025 TIME: 1:19 PM [facility] 06-27-2025 Note HNO ID: [id number] Author: SUSIE MORRISON RN Service: Care Management Author Type: Registered Nurse Type: Care Mgt Progress Note Filed: 06/27/2025 11:44 Note Text: CARE MANAGEMENT PROGRESS NOTE SERVICE DATE: 06/27/2025 SERVICE TIME: 11:44 AM LOS: 3 days IMM Follow Up Copy Given: Yes Copy given to:: Patient Method: In Person SIGNATURE: Susie Morrison RN PATIENT NAME: Helen Lieberman DATE: June 27, 2025 TIME: 11:43 AM [facility] 06-26-2025 Note HNO ID: [id number] Author: CARLOS AGUIRRE RN Service: Care Management Author Type: Registered Nurse Type: Care Mgt Progress Note Filed: 06/26/2025 14:46 Note Text: CARE MANAGEMENT PROGRESS NOTE SERVICE DATE: 06/26/2025 SERVICE TIME: 01:26 PM LOS: 2 days Needs Prior to Discharge: Discharge Transportation, Precertification, Other: See Comment (Medical clearance) Met with patient at bedside to discuss discharge plan. [facility]cert is obtained from patient's insurance. Discuss transportation, and patient will need medical transport. MMT is tentatively scheduled for at 1:00. CM will continue to follow. SIGNATURE: Carlos Aguirre RN PATIENT NAME: Helen Lieberman DATE: June 26, 2025 TIME: 2:43 PM [facility] 06-26-2025 Note HNO ID: [id number] Author: DONNA CASILLAS MD Service: Hospital Medicine Author Type: Physician Type: Progress Notes Filed: 06/26/2025 12:03 Note Text: DEPARTMENT OF HOSPITAL MEDICINE PROGRESS NOTE SERVICE DATE: 06/26/2025 SERVICE TIME: 12:02 PM Hospital Medicine/Primary Attending: Donna Casillas MD NIGHT AND WEEKEND COVERAGE: [employer] COVER[employer]: : [phone], please page attending physician. Nights: [phone], please page [place] Hospital[facility] Night coverage pager [phone]. Subjective INTERVAL HPI: Patient is feeling better still little dizzy. Sodium slowly improving. Cannot take chlorthalidone. Cont current Losartan dose Need to accept higher BP level for this patient at baseline. Still some dizziness when move around. PT/OT recommend SNF - pending pre-cert. Restart coumadin. Current Facility-Administered Medications Medication Dose Route Frequency cefTRIAXone iv piggyback 1 g in dextrose (iso-osmotic) 50 mL (ROCEPHIN) 1 g INTRAVENOUS q 24 H NaCl 0.9% iv flush bag 20 mL INTRAVENOUS PRN carvedilol 25 mg tab(s) (COREG) 25 mg ORAL BID w MEALS pantoprazole DR 40 mg tab(s) (PROTONIX) 40 mg ORAL DAILY (6 AM) levothyroxine 75 mcg tab(s) (SYNTHROID) 75 mcg ORAL DAILY (6 AM) ondansetron orally disintegrating 4 mg tab(s) (ZOFRAN ODT) 4 mg ORAL q 6 H PRN Or ondansetron (PF) 4 mg injection (ZOFRAN) 4 mg INTRAVENOUS q 6 H PRN magnesium hydroxide 400 mg/5 mL 30 mL (MOM) 30 mL ORAL DAILY PRN acetaminophen 650 mg tab(s) (TYLENOL) 650 mg ORAL q 6 H PRN losartan 25 mg tab(s) (COZAAR) 25 mg ORAL DAILY warfarin (COUMADIN) tab(s) 3 mg 3 mg ORAL DAILY - WARFARIN Objective PHYSICAL EXAM: BP 116/56 Pulse 71 Temp (Src) 97.8 (Oral) Resp 16 Ht 5' 2 (1.58m) Wt 119 lb 0.8 oz (54.0kg) SpO2 98% BMI 21.77 kg/(m2). O2 Therapy: Room Air Physical Exam Performed GENERAL: Alert, no distress, cooperative SKIN: Skin color, texture, turgor normal. No rashes or lesions. HEAD/SINUSES: No significant findings EYES: PERRLA, EOMI LUNGS: Lungs clear to auscultation, Good diaphragmatic excursion CARDIAC: Normal S1 and S2; no rubs, murmurs, or gallops ABDOMEN: Abdomen soft, non-tender, BS normal, No masses or organomegaly EXTREMITIES: Extremities normal, no deformities, edema, clubbing or skin discoloration. Good capillary refill., No ulcers NEURO: Gait normal. Reflexes normal and symmetric. Sensation grossly intact, Cranial nerves II-XII intact PULSES: 2+ radial, 2+ carotid Lines, Drains, and Airways Line Name Duration Peripheral 06/26/25 1105 [facility] Right Forearm 22 Gauge <1 day Reviewed lines and needs to be continued: REASONS: Intravenous fluids DATA: Diagnostic tests reviewed for today's visit: Recent Labs 06/24/25 0238 06/23/25 1450 06/20/25 0450 06/01/25 2245 WBC 7.63 8.17 7.79 6.29 RBC 3.54* 3.67* 4.00 4.03 HB 11.3* 11.6 12.5 12.5 HCT 32.6* 33.8* 38.8 38.6 PLT 259 297 286 234 MCV 92.1 92.1 97.0 95.8 MCH 31.9 31.6 31.3 31.0 MPV 8.8* 8.9* 8.8* 8.6* ABSNEUT -- 5.64 5.53 3.64 NEUTP -- 69.1 71.0 57.9 LYMPHP -- 18.2 17.7 28.0 MONOP -- 11.3 8.9 11.4 EODINP -- 1.1 1.5 1.9 Recent Labs 06/26/25 0446 06/25/25 0442 06/24/25 1447 06/23/25 2120 06/23/25 1450 GLUC 100* 92 105* < > 118* NA 131* 127* 126* < > 122* K 4.7 4.0 4.1 < > 3.6* CHLOR 93* 92* 91* < > 89* CO2 25 21* 23 < > 25 CREAT 0.80 0.79 1.11* < > 0.86 BUN 13 13 17 < > 17 ANION 13 14 12 < > 8 CA 9.4 9.3 8.9 < > 9.3 TPROT 6.9 6.7 -- -- 7.2 ALB 4.0 3.9 -- -- 4.1 TBILI 0.7 0.9 -- -- 1.8* ALKPHOS 68 65 -- -- 69 AST 14 19 -- -- 13 ALT 10 9 -- -- 9 < > = values in this interval not displayed. VICTORINA High Sensitivity Date Value Ref Range Status 06/23/2025 23 (H) <12 ng/L Final 06/23/2025 23 (H) <12 ng/L Final 06/23/2025 22 (H) <12 ng/L Final Most recent imaging HOSPITAL COURSE: Helen Lieberman is a 89 year old female presented with past medical history of HTN, HFpEF, AFIB (on Coumadin), hx TIA, and GERD and hyponatremia/SIADH who presents with weakness and fatigue. Reports decreased intake and weakness over the past several days. States she also required nasal balloon recently for recurrent epistaxis. Is on warfarin for Afib. States he has history of hyponatremia. Has been compliant with home medications. Sodium 122 today with potassium 3.6 and chloride of 89. Received NS bolus. UA showed 1+ leuk esterase and rare bacteria. No urinary symptoms reported. Received dose rocephin. Admitted under hospital medicine service. Assessment AND Plan Hyponatremia Present on Admission: Yes Hypokalemia Present on Admission: Yes Hypochloremia Present on Admission: Yes -has history of SIADH -will give fluid challenge give low intake -BMP q6hr -avoid over correction of NA -check urine for osmolality and sodium -check uric acid and serum osmolality -consult nephrology -potassium replacement Essential hypertension, benign Present (more content not included)... [facility] 06-25-2025 Note HNO ID: [id number] Author: DONNA CASILLAS MD Service: Hospital Medicine Author Type: Physician Type: Progress Notes Filed: 06/25/2025 16:55 Note Text: DEPARTMENT OF HOSPITAL MEDICINE PROGRESS NOTE SERVICE DATE: 06/25/2025 SERVICE TIME: 4:54 PM Hospital Medicine/Primary Attending: Donna Casillas MD NIGHT AND WEEKEND COVERAGE: [employer] COVERAGE: Days: [phone], please page attending physician. Nights: [phone], please page [place] Hospital[facility] Night coverage pager [phone]. Subjective INTERVAL HPI: Patient is feeling better. Still low of Sodium. Cannot take chlorthalidone. Cont current Losartan dose Need to accept higher BP level for this patient at baseline. Still some dizziness when move around. PT/OT recommend SNF - pending pre-cert. Restart coumadin. Current Facility-Administered Medications Medication Dose Route Frequency cefTRIAXone iv piggyback 1 g in dextrose (iso-osmotic) 50 mL (ROCEPHIN) 1 g INTRAVENOUS q 24 H NaCl 0.9% iv flush bag 20 mL INTRAVENOUS PRN carvedilol 25 mg tab(s) (COREG) 25 mg ORAL BID w MEALS pantoprazole DR 40 mg tab(s) (PROTONIX) 40 mg ORAL DAILY (6 AM) levothyroxine 75 mcg tab(s) (SYNTHROID) 75 mcg ORAL DAILY (6 AM) ondansetron orally disintegrating 4 mg tab(s) (ZOFRAN ODT) 4 mg ORAL q 6 H PRN Or ondansetron (PF) 4 mg injection (ZOFRAN) 4 mg INTRAVENOUS q 6 H PRN magnesium hydroxide 400 mg/5 mL 30 mL (MOM) 30 mL ORAL DAILY PRN acetaminophen 650 mg tab(s) (TYLENOL) 650 mg ORAL q 6 H PRN losartan 25 mg tab(s) (COZAAR) 25 mg ORAL DAILY warfarin (COUMADIN) tab(s) 3 mg 3 mg ORAL DAILY - WARFARIN Objective PHYSICAL EXAM: BP 135/59 Pulse 70 Temp (Src) 98 (Oral) Resp 17 Ht 5' 2 (1.58m) Wt 119 lb 0.8 oz (54.0kg) SpO2 98% BMI 21.77 kg/(m2). Physical Exam Performed GENERAL: Alert, no distress, cooperative SKIN: Skin color, texture, turgor normal. No rashes or lesions. HEAD/SINUSES: No significant findings EYES: PERRLA, EOMI LUNGS: Lungs clear to auscultation, Good diaphragmatic excursion CARDIAC: Normal S1 and S2; no rubs, murmurs, or gallops ABDOMEN: Abdomen soft, non-tender, BS normal, No masses or organomegaly EXTREMITIES: Extremities normal, no deformities, edema, clubbing or skin discoloration. Good capillary refill., No ulcers NEURO: Gait normal. Reflexes normal and symmetric. Sensation grossly intact, Cranial nerves II-XII intact PULSES: 2+ radial, 2+ carotid Lines, Drains, and Airways Line Name Duration Peripheral 06/23/25 Left Antecubital 20 Gauge 2 days Reviewed lines and needs to be continued: REASONS: Intravenous fluids DATA: Diagnostic tests reviewed for today's visit: Recent Labs 06/24/25 0238 06/23/25 1450 06/20/25 0450 06/01/25 2245 WBC 7.63 8.17 7.79 6.29 RBC 3.54* 3.67* 4.00 4.03 HB 11.3* 11.6 12.5 12.5 HCT 32.6* 33.8* 38.8 38.6 PLT 259 297 286 234 MCV 92.1 92.1 97.0 95.8 MCH 31.9 31.6 31.3 31.0 MPV 8.8* 8.9* 8.8* 8.6* ABSNEUT -- 5.64 5.53 3.64 NEUTP -- 69.1 71.0 57.9 LYMPHP -- 18.2 17.7 28.0 MONOP -- 11.3 8.9 11.4 EODINP -- 1.1 1.5 1.9 Recent Labs 06/25/25 0442 06/24/25 1447 06/24/25 0855 06/23/25 2120 06/23/25 1450 GLUC 92 105* 110* < > 118* NA 127* 126* 128* < > 122* K 4.0 4.1 4.3 < > 3.6* CHLOR 92* 91* 90* < > 89* CO2 21* 23 24 < > 25 CREAT 0.79 1.11* 1.09* < > 0.86 BUN 13 17 15 < > 17 ANION 14 12 14 < > 8 CA 9.3 8.9 9.2 < > 9.3 TPROT 6.7 -- -- -- 7.2 ALB 3.9 -- -- -- 4.1 TBILI 0.9 -- -- -- 1.8* ALKPHOS 65 -- -- -- 69 AST 19 -- -- -- 13 ALT 9 -- -- -- 9 < > = values in this interval not displayed. VICTORINA High Sensitivity Date Value Ref Range Status 06/23/2025 23 (H) <12 ng/L Final 06/23/2025 23 (H) <12 ng/L Final 06/23/2025 22 (H) <12 ng/L Final Most recent imaging HOSPITAL COURSE: Helen Lieberman is a 89 year old female presented with past medical history of HTN, HFpEF, AFIB (on Coumadin), hx TIA, and GERD and hyponatremia/SIADH who presents with weakness and fatigue. Reports decreased intake and weakness over the past several days. States she also required nasal balloon recently for recurrent epistaxis. Is on warfarin for Afib. States he has history of hyponatremia. Has been compliant with home medications. Sodium 122 today with potassium 3.6 and chloride of 89. Received NS bolus. UA showed 1+ leuk esterase and rare bacteria. No urinary symptoms reported. Received dose rocephin. Admitted under hospital medicine service. Assessment AND Plan Hyponatremia Present on Admission: Yes Hypokalemia Present on Admission: Yes Hypochloremia Present on Admission: Yes -has history of SIADH -will give fluid challenge give low intake -BMP q6hr -avoid over correction of NA -check urine for osmolality and sodium -check uric acid and serum osmolality -consult nephrology -potassium replacement Essential hypertension, benign Present on Admission: Yes -hold diuretic STOP chlorthalidone - added to allergy list. (more content not included)... [facility] 06-25-2025 Note HNO ID: [id number] Author: SUSIE MORIRSON RN Service: Care Management Author Type: Registered Nurse Type: Care Mgt Progress Note Filed: 06/25/2025 12:36 Note Text: CARE MANAGEMENT PROGRESS NOTE SERVICE DATE: 06/25/2025 SERVICE TIME: 12:35 PM LOS: 1 day Needs Prior to Discharge: Insurance Authorization, Other: See Comment, Discharge Transportation (medical clearance) CM met with patient at bedside to [facility] and [facility] agreeable with a dc to this facility [facility] tasked for precert and complete HENS SIGNATURE: Susie Morrison RN PATIENT NAME: Helen Lieberman DATE: June 25, 2025 TIME: 12:35 PM [facility] 06-25-2025 Note HNO ID: [id number] Author: DONNA CASILLAS MD Service: Care Management Author Type: Registered Nurse Type: Care Mgt Progress Note Filed: 06/25/2025 12:33 Note Text: Attestation signed by Donna Casillas MD at 06/25/2025 12:33 PM Attending Note I have personally reviewed the note and agree. Other additions or changes: None SIGNATURE: Donna Casillas MD DATE: June 25, 2025 TIME: 12:33 PM CARE MANAGEMENT PROGRESS NOTE SERVICE DATE: 06/25/2025 SERVICE TIME: 11:24 AM LOS: 1 day Physician Certification of Less Than 30 Days Skilled Needs Earliest Possible Discharge Date: 06/25/25 To the best of my knowledge, all information provided about the individual is a true and an accurate reflection of Helen Lieberman's needs. I certify that following the inpatient level of care, a post-acute nursing facility stay is required for less than 30 days related to the condition(s) for which the patient was treated during the inpatient level of care: Principal Problem: Hyponatremia Active Problems: Essential hypertension, benign Hypothyroidism Atrial fibrillation (HCC) Chronic diastolic CHF (congestive heart failure) (HCC) Weakness Hypokalemia Hypochloremia Advanced care planning/counseling discussion Resolved Problems: * No resolved hospital problems. * Attending Physician: Donna Casillas MD SIGNATURE: Susie Morrison RN PATIENT NAME: Helen Lieberman DATE: June 25, 2025 TIME: 11:24 AM [facility] 06-24-2025 Note HNO ID: [id number] Author: DONNA CASILLAS MD Service: Hospital Medicine Author Type: Physician Type: Progress Notes Filed: 06/24/2025 16:21 Note Text: DEPARTMENT OF HOSPITAL MEDICINE PROGRESS NOTE SERVICE DATE: 06/24/2025 SERVICE TIME: 11:52 AM Hospital Medicine/Primary Attending: Donna Casillas MD NIGHT AND WEEKEND COVERAGE: [place] COVERAGE: Days: [phone], please page attending physician. Nights: [phone], please page [place] [facility] Night coverage pager [phone]. Subjective INTERVAL HPI: Patient is feeling better. Still low of Sodium. Cannot take chlorthalidone. Lowered Losartan for low BP. Need to accept higher BP level for this patient at baseline. Still some dizziness when move around. Current Facility-Administered Medications Medication Dose Route Frequency cefTRIAXone iv piggyback 1 g in dextrose (iso-osmotic) 50 mL (ROCEPHIN) 1 g INTRAVENOUS q 24 H NaCl 0.9% iv flush bag 20 mL INTRAVENOUS PRN carvedilol 25 mg tab(s) (COREG) 25 mg ORAL BID w MEALS pantoprazole DR 40 mg tab(s) (PROTONIX) 40 mg ORAL DAILY (6 AM) levothyroxine 75 mcg tab(s) (SYNTHROID) 75 mcg ORAL DAILY (6 AM) NaCl 0.9% iv infusion 75 mL/hr INTRAVENOUS CONTINUOUS ondansetron orally disintegrating 4 mg tab(s) (ZOFRAN ODT) 4 mg ORAL q 6 H PRN Or ondansetron (PF) 4 mg injection (ZOFRAN) 4 mg INTRAVENOUS q 6 H PRN magnesium hydroxide 400 mg/5 mL 30 mL (MOM) 30 mL ORAL DAILY PRN acetaminophen 650 mg tab(s) (TYLENOL) 650 mg ORAL q 6 H PRN [START ON 06/25/2025] losartan 25 mg tab(s) (COZAAR) 25 mg ORAL DAILY Objective PHYSICAL EXAM: BP 116/58[standing EOB with OT and pt reporting feeling dizzy[ Pulse 69 Temp (Src) 98.2 (Oral) Resp 20 Ht 5' 2 (1.58m) Wt 119 lb 0.8 oz (54.0kg) SpO2 98% BMI 21.77 kg/(m2). O2 Therapy: Room Air Physical Exam Performed GENERAL: Alert, no distress, cooperative SKIN: Skin color, texture, turgor normal. No rashes or lesions. HEAD/SINUSES: No significant findings EYES: PERRLA, EOMI LUNGS: Lungs clear to auscultation, Good diaphragmatic excursion CARDIAC: Normal S1 and S2; no rubs, murmurs, or gallops ABDOMEN: Abdomen soft, non-tender, BS normal, No masses or organomegaly EXTREMITIES: Extremities normal, no deformities, edema, clubbing or skin discoloration. Good capillary refill., No ulcers NEURO: Gait normal. Reflexes normal and symmetric. Sensation grossly intact, Cranial nerves II-XII intact PULSES: 2+ radial, 2+ carotid Lines, Drains, and Airways Line Name Duration Peripheral 06/23/25 Left Antecubital 20 Gauge 1 day Reviewed lines and needs to be continued: REASONS: Intravenous fluids DATA: Diagnostic tests reviewed for today's visit: Recent Labs 06/24/25 0238 06/23/25 1450 06/20/25 0450 06/01/25 2245 WBC 7.63 8.17 7.79 6.29 RBC 3.54* 3.67* 4.00 4.03 HB 11.3* 11.6 12.5 12.5 HCT 32.6* 33.8* 38.8 38.6 PLT 259 297 286 234 MCV 92.1 92.1 97.0 95.8 MCH 31.9 31.6 31.3 31.0 MPV 8.8* 8.9* 8.8* 8.6* ABSNEUT -- 5.64 5.53 3.64 NEUTP -- 69.1 71.0 57.9 LYMPHP -- 18.2 17.7 28.0 MONOP -- 11.3 8.9 11.4 EODINP -- 1.1 1.5 1.9 Recent Labs 06/24/25 1447 06/24/25 0855 06/24/25 0238 06/23/25 2120 06/23/25 1450 GLUC 105* 110* 94 < > 118* NA 126* 128* 125* < > 122* K 4.1 4.3 3.9 < > 3.6* CHLOR 91* 90* 92* < > 89* CO2 23 24 25 < > 25 CREAT 1.11* 1.09* 1.00* < > 0.86 BUN 17 15 17 < > 17 ANION 12 14 8 < > 8 CA 8.9 9.2 9.2 < > 9.3 TPROT -- -- -- -- 7.2 ALB -- -- -- -- 4.1 TBILI -- -- -- -- 1.8* ALKPHOS -- -- -- -- 69 AST -- -- -- -- 13 ALT -- -- -- -- 9 < > = values in this interval not displayed. [place] High Sensitivity Date Value Ref Range Status 06/23/2025 23 (H) <12 ng/L Final 06/23/2025 23 (H) <12 ng/L Final 06/23/2025 22 (H) <12 ng/L Final Most recent imaging HOSPITAL COURSE: Helen Lieberman is a 89 year old female presented with past medical history of HTN, HFpEF, AFIB (on Coumadin), hx TIA, and GERD and hyponatremia/SIADH who presents with weakness and fatigue. Reports decreased intake and weakness over the past several days. States she also required nasal balloon recently for recurrent epistaxis. Is on warfarin for Afib. States he has history of hyponatremia. Has been compliant with home medications. Sodium 122 today with potassium 3.6 and chloride of 89. Received NS bolus. UA showed 1+ leuk esterase and rare bacteria. No urinary symptoms reported. Received dose rocephin. Admitted under hospital medicine service. Assessment AND Plan Hyponatremia Present on Admission: Yes Hypokalemia Present on Admission: Yes Hypochloremia Present on Admission: Yes -has history of SIADH -will give fluid challenge give low intake -BMP q6hr -avoid over correction of NA -check urine for osmolality and sodium -check uric acid and serum osmolality -consult nephrology -potassium replacement Essential hypertension, benign Present on Admission: Yes -hold diuretic STOP chlorthal (more content not included)... [facility] 06-24-2025 Note HNO ID: [id number] Author: SUSIE MORRISON RN Service: Care Management Author Type: Registered Nurse Type: Care Mgt Initial Assessment Filed: 06/24/2025 11:17 Note Text: CARE MANAGEMENT: ASSESSMENT AND DISCHARGE PLAN SERVICE DATE: June 24, 2025 SERVICE TIME: 11:13 AM PCP: Tanya Lozano APRN.CNP Primary Contact: Extended Emergency Contact Information Primary Emergency Contact: Earl Lieberman Mobile Relation: Son Admission Status: Observation Insurance Provider: [facility] MEDICARE ADVANTAGE PPO Discharge Planning requested by: Per Department Practice Potential Transition Plans Alf Facility/Intermediate Care Facility Advance Directives Current Advance Directive: Health Care Power of Orthotist, Living Will In Chart: No Current Living Arrangements and Support Lives with: Family members Type of Residence: Private Residence (House) Does the patient have to climb stairs at home?: stairs outside the home, Yes Support: Family members How do you manage to accomplish the following: Independent: Ambulation, Bathe/Shower, Dress, Meals/Meal Prep, Going to the bathroom, Medication Management, Transportation to appointments/community Current Services/Equipment Current Post-Acute Service(s): DME Current DME Type: Cane, Rolling walker, Walker Discharge Planning Patient Goal(s): Be able to go home, General wellness, Better mobility, Ambulate a little better, Increase strength [place] of Choice Explained: [place] of [place] Given: Yes Level of Care Discussed: Alf Facility Are you interested in bedside delivery of your medications? No Discharge Planning Participant(s): Patient, Family Patient/Family Comments: N/A Caregiver Assessment: Caregiver is ready, willing and able to meet the patient's needs as recommended by the inter-professional team: Other: See Comment (TBD DC needs pending clinical course) Transport at Discharge: Transportation Arrangements: To Be Determined Needs Prior to Discharge: Needs Prior to Discharge: To Be Determined, Other: See Comment (medical clearance) Post-Acute Discharge Plan: EMR reviewed, RNCM met with patient and two sons Earl and Christopher at bedside introduced self and role. 89 y/o admitted with hyponatremia and weakness. Patient lives in a 1SH with grandson. At baseline reports to be mainly independent with needs. Uses cane/walker as needed. Drives PT/OT rec SNF Patient agreeable and requesting referral to [facility] Referral sent. Will need precert SIGNATURE: Susie Morrison RN PATIENT NAME: Helen Lieberman DATE: June 24, 2025 TIME: 11:13 AM [facility] 06-21-2025 Note HNO ID: [id number] Author: CORRINE BIRMINGHAM LPN Service: ? Author Type: Licensed Nurse Type: Progress Notes Filed: 06/21/2025 11:10 Note Text: ED Follow-Up Note Provider Action / FYI: Pt has appointment for NV blood pressure check next week. Pt will be reaching out to her ENT to see if she can get in to them for Balloon removal. Corrine Birmingham LPN Call completed by: ROBERT Patient seen in ED: In Network ED Contact made with Patient: Yes The patient was identified by Name and Date of . Discussed Care with: patient Patient was seen in the Emergency Department (ED) Location: [place] Date: 06/16/2025 and 06/20/2025 Reason for ED Visit: epistaxis ED Intervention: Labs Balloon placement Azithromycin 250 mg New Medications: Azithromycin 250 mg oral daily Medication Changes: None Does patient understand medication changes: N/A Can patient afford medication changes: N/A Patient educated on worsening symptoms and when and where to seek additional care: No Patient Education Provided including treatment plan and new orders. Patient provided with appropriate counseling: Yes [facility] 06-21-2025 Note Patient Outreach (AG INTMLW) HELEN LIEBERMAN ([id number]) 1935 F Date Time Provider Department 06/21/25 TANYA LOZANO AGINTMLW During your visit today, we recorded the following information about you: Corrine Birmingham LPN 06/21/2025 11:10 AM Signed ED Follow-Up Note Provider Action / FYI: Pt has appointment for NV blood pressure check next week. Pt will be reaching out to her ENT to see if she can get in to them for Balloon removal. Corrine Birmingham LPN Call completed by: ROBERT Patient seen in ED: In Network ED Contact made with Patient: Yes The patient was identified by Name and Date of . Discussed Care with: patient Patient was seen in the Emergency Department (ED) Location: [place] Date: 06/16/2025 and 06/20/2025 Reason for ED Visit: epistaxis ED Intervention: Labs Balloon placement Azithromycin 250 mg New Medications: Azithromycin 250 mg oral daily Medication Changes: None Does patient understand medication changes: N/A Can patient afford medication changes: N/A Patient educated on worsening symptoms and when and where to seek additional care: No Patient Education Provided including treatment plan and new orders. Patient provided with appropriate counseling: Yes Allergies As of Date: 06/21/2025 Noted Allergy Reaction AMLODIPINE 08/11/2024 14 - Other: See Comments Comments: Very intense leg cramps PENICILLINS 07/24/2021 16 - Unknown SULFA (SULFONAMIDE ANTIBIOTICS) 07/24/2021 16 - Unknown TETRACYCLINES 07/24/2021 16 - Unknown Date Reviewed: 06/20/2025 Reviewed by: Daniel Sanchez RN - Fully Assessed Reason for Visit: ED Follow Up [973] Cmt: Mitch HUNTER 06/16/2025 and 06/20/2025 Prescriptions as of 06/21/2025 - azithromycin (ZITHROMAX) 250 mg tablet Take 1 tablet by mouth once daily. - chlorthalidone (HYGROTON) 25 mg tablet Take 1 tablet by mouth once daily. - losartan (COZAAR) 100 mg tablet Take 1 tablet by mouth once daily. - sodium chloride 0.65 % nasal spray Use 2 sprays in the nose five times a day. - sodium chloride-aloe vera (AYR SALINE) topical nasal gel 1 application by INTRANASAL route three times a day. - Oxymetazoline HCl (AFRIN, OXYMETAZOLINE,) 0.05 % mist Use 1 spray in the nose as needed (as needed with active nosebleed). - warfarin (COUMADIN) 2 mg tablet Take 1 tablet by mouth daily as directed. - levothyroxine (SYNTHROID) 75 mcg tablet Take 1 tablet by mouth daily before breakfast. - carvedilol (COREG) 25 mg tablet 1 tablet with food Orally Twice a day for 90 days - pantoprazole DR (PROTONIX) 40 mg tablet Take 1 tablet by mouth once daily. - warfarin (COUMADIN) 3 mg tablet Take 1 tablet by mouth once daily. - acetaminophen (TYLENOL) 500 mg tablet Take 2 tablets by mouth every 8 hours. - magnesium oxide (MAG-OX) 400 mg (241.3 mg magnesium) tablet Take 1 tablet by mouth once daily. - polyethylene glycol 3350 (MIRALAX, GLYCOLAX) 17 gram packet Take 17 g by mouth once daily. Dissolve dose in 4 - 8 ounces of liquid and take as directed. - Cholecalciferol, Vitamin D3, 50 mcg (2,000 unit) cap Take by mouth once daily. 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] 08/25/2021 Syncope [R55] 09/07/2023 09/08/2023 Syncope and collapse [R55] 09/07/2023 09/08/2023 Chronic diastolic CHF (congestive heart failure*09/08/2023 Hx-TIA (transient ischemic attack) [Z86.73] 08/09/2024 Hyponatremia [E87.1] 08/09/2024 Elevated troponin level [R79.89] 08/09/2024 Fall at home, sequela [W19.XXXS, Y92.009] 08/09/2024 Left hip pain [M25.552] 08/09/2024 Hematoma of left thigh [S70.12XA] 08/09/2024 Hamstring injury, left, initial encounter [S76.*08/10/2024 Encounter Status:Closed by CORRINE BIRMINGHAM on 06/21/25 [facility] 06-19-2025 Note HNO ID: [id number] Author: CORRINE BIRMINGHAM LPN Service: ? Author Type: Licensed Nurse Type: Progress Notes Filed: 06/19/2025 08:34 Note Text: Per Tanya Lozano CNP pt to continue taking Warfarin 2 mg daily will recheck at appointment 07/09/2025. Start Chlorthalidone 20 mg daily. Increase potassium in diet. Pt to schedule for NV in 1 week for blood pressure check. Pt to check blood pressure at home and bring readings in to the NV. Pt aware and verbalized an understanding. Corrine Birmingham LPN [facility] 06-19-2025 Note HNO ID: [id number] Author: CORRINE BIRMINGHAM LPN Service: ? Author Type: Licensed Nurse Type: Progress Notes Filed: 06/19/2025 08:34 Note Text: Pt here for INR check as ordered by Tanya Lozano CNP. Pt's INR 2.0 today. Pt taking Warfarin 2 mg daily. Pt prior INR was 2.7 on 06/05/2025. Pt's blood pressure today 172/82 174/88 [facility] 06-06-2025 Note HNO ID: [id number] Author: CORRINE BIRMINGHAM LPN Service: ? Author Type: Licensed Nurse Type: Progress Notes Filed: 06/06/2025 10:06 Note Text: ED Follow-Up Note Provider Action / FYI: Call completed by: ROBERT Patient seen in ED: In [facility] ED Contact made with Patient: Yes The patient was identified by Name and Date of . Discussed Care with: patient Patient was seen in the Emergency Department (ED) Location: [place] Date: 06/01/2025 Reason for ED Visit: Epistaxis ED Intervention: Labs Tranexamic acid 500 mg topical Nasal packing New Medications: Azithromycin 250 mg 2 tablets on day 1 then 1 tablet daily for days 2-5. Medication Changes: None Does patient understand medication changes: N/A Can patient afford medication changes: N/A Patient educated on worsening symptoms and when and where to seek additional care: No Patient Education Provided including treatment plan and new orders. Patient provided with appropriate counseling: Yes [facility] 06-06-2025 History of Presen t illness Narrative ED Follow-Up Note Provider Action / FYI: Call completed by: ROBERT Patient seen in ED: In [facility] ED Contact made with Patient: Yes The patient was identified by Name and Date of . Discussed Care with: patient Patient was seen in the Emergency Department (ED) Location: [place] Date: 06/01/2025 Reason for ED Visit: Epistaxis ED Intervention: Labs Tranexamic acid 500 mg topical Nasal packing New Medications: Azithromycin 250 mg 2 tablets on day 1 then 1 tablet daily for days 2-5. Medication Changes: None Does patient understand medication changes: N/A Can patient afford medication changes: N/A Patient educated on worsening symptoms and when and where to seek additional care: No Patient Education Provided including treatment plan and new orders. Patient provided with appropriate counseling: Yes documented in this encounter [facility] 06-06-2025 Note Patient Outreach (AG INTMLW) HELEN LIEBERMAN ([id number]) 1935 F Date Time Provider Department 06/06/25 TANYA LOZANO AGINTMLW During your visit today, we recorded the following information about you: Corrine Birmingham LPN 06/06/2025 10:06 AM Signed ED Follow-Up Note Provider Action / FYI: Call completed by: ROBERT Patient seen in ED: In Network ED Contact made with Patient: Yes The patient was identified by Name and Date of . Discussed Care with: patient Patient was seen in the Emergency Department (ED) Location: [place] Date: 06/01/2025 Reason for ED Visit: Epistaxis ED Intervention: Labs Tranexamic acid 500 mg topical Nasal packing New Medications: Azithromycin 250 mg 2 tablets on day 1 then 1 tablet daily for days 2-5. Medication Changes: None Does patient understand medication changes: N/A Can patient afford medication changes: N/A Patient educated on worsening symptoms and when and where to seek additional care: No Patient Education Provided including treatment plan and new orders. Patient provided with appropriate counseling: Yes Allergies As of Date: 06/06/2025 Noted Allergy Reaction AMLODIPINE 08/11/2024 14 - Other: See Comments Comments: Very intense leg cramps PENICILLINS 07/24/2021 16 - Unknown SULFA (SULFONAMIDE ANTIBIOTICS) 07/24/2021 16 - Unknown TETRACYCLINES 07/24/2021 16 - Unknown Date Reviewed: 06/05/2025 Reviewed by: Geri Shi MA - Fully Assessed Reason for Visit: ED Follow Up [973] Cmt: [place] [facility] 06/02/2025 Prescriptions as of 06/06/2025 - losartan (COZAAR) 100 mg tablet Take 1 tablet by mouth once daily. - sodium chloride 0.65 % nasal spray Use 2 sprays in the nose five times a day. - sodium chloride-aloe vera (AYR SALINE) topical nasal gel 1 application by INTRANASAL route three times a day. - Oxymetazoline HCl (AFRIN, OXYMETAZOLINE,) 0.05 % mist Use 1 spray in the nose as needed (as needed with active nosebleed). - azithromycin (ZITHROMAX Z-ZACH) 250 mg tablet Two Pills on day 1, One Pill daily on days 2-5 - azithromycin (ZITHROMAX Z-ZACH) 250 mg tablet Two Pills on day 1, One Pill daily on days 2-5 - warfarin (COUMADIN) 2 mg tablet Take 1 tablet by mouth daily as directed. - levothyroxine (SYNTHROID) 75 mcg tablet Take 1 tablet by mouth daily before breakfast. - carvedilol (COREG) 25 mg tablet 1 tablet with food Orally Twice a day for 90 days - pantoprazole DR (PROTONIX) 40 mg tablet Take 1 tablet by mouth once daily. - warfarin (COUMADIN) 3 mg tablet Take 1 tablet by mouth once daily. - acetaminophen (TYLENOL) 500 mg tablet Take 2 tablets by mouth every 8 hours. - magnesium oxide (MAG-OX) 400 mg (241.3 mg magnesium) tablet Take 1 tablet by mouth once daily. - polyethylene glycol 3350 (MIRALAX, GLYCOLAX) 17 gram packet Take 17 g by mouth once daily. Dissolve dose in 4 - 8 ounces of liquid and take as directed. - Cholecalciferol, Vitamin D3, 50 mcg (2,000 unit) cap Take by mouth once daily. 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] 08/25/2021 Syncope [R55] 09/07/2023 09/08/2023 Syncope and collapse [R55] 09/07/2023 09/08/2023 Chronic diastolic CHF (congestive heart failure*09/08/2023 Hx-TIA (transient ischemic attack) [Z86.73] 08/09/2024 Hyponatremia [E87.1] 08/09/2024 Elevated troponin level [R79.89] 08/09/2024 Fall at home, sequela [W19.XXXS, Y92.009] 08/09/2024 Left hip pain [M25.552] 08/09/2024 Hematoma of left thigh [S70.12XA] 08/09/2024 Hamstring injury, left, initial encounter [S76.*08/10/2024 Encounter Status:Closed by CORRINE BIRMINGHAM on 06/06/25 [facility] 06-05-2025 Instructions Nigel Irizarry PA-C - 06/05/2025 1:59 PM EDT Images from the original note were not included. [facility] [place] HOME TREATMENT FOR NOSEBLEED PREVENTION Make sure your room or house is well humidified. Drink plenty of fluids (6 to 8 cups of water). Use saline nasal sprays 6 to 10 times a day (two sprays each nostril). Nasal moisturizers: For short term (less than 4 to 5 days) use a small amount of Vaseline Petroleum Jelly or A&D Ointment just inside the nose and sniff twice a day. For longer use, obtain an [id number], water based, unscented lotion 2 times a day by placing a small amount into the front of the nose and sniff. Eucoderm, Neutrogena, or equivalent cosmetic product OR [place] nasal saline ointment OR Nasogel (from [facility]) OR Ponaris Nasal Emollient. Ponaris is a specially prepared iodized botanical oil blend that contains oils of pine, eucalyptus, peppermint, cajeput in a cottonseed oil base. This is an over the counter medication, available online and many major drug stores. If you can't find it, ask the pharmacist. Use 2-3 drops each nostril 2-3 times per day. FOLLOW THESE STEPS TO STOP A NOSEBLEED Sit down and lean your body and your head slightly forward. This will keep the blood from running down your throat, which can cause nausea, vomiting, and diarrhea. (Do NOT lay flat or put your head between your legs.) Breathe through your mouth. Use a tissue or damp washcloth to catch the blood. Use your thumb and index finger to pinch together the soft part of your nose. Make sure to pinch the soft part of the nose against the hard bony ridge that forms the bridge of the nose. Squeezing at or above the bony part of the nose will not put pressure where it can help stop bleeding. Keep pinching your nose continuously for at least 10 minutes (timed by clock) before checking if the bleeding has stopped. If your nose is still bleeding, continue squeezing the nose for another 15 minutes. You can spray an lrmq-gek-nwujhsl decongestant spray, such as oxymetazoline (Afrin, Deondre-Synephrine, etc) into the bleeding side of the nose and then hold apply pressure to the nose as described above. If bleeding is still uncontrollable, then you need to go to your closest emergency department. If you are having recurrent nose bleeds and they are difficult to control in pinching, there is an dums-pea-draugjy packing that you can use to pack your own nose. It is called NasalCease and it is a number of pharmacies including [facility]. The directions for use are in the package. documented in this encounter [facility] 06-05-2025 Note HNO ID: [id number] Author: NIGEL IRIZARRY PA-C Service: ? Author Type: Physician Media Manager Type: Progress Notes Filed: 06/05/2025 14:13 Note Text: OTOLARYNGOLOGY-HEAD AND NECK SURGERY CC: Helen Lieberman is a 89 year old female who is seen at the request of Reese Caruso MD for evaluation of epistaxis. My findings and recommendations will be communicated to the referring provider via the shared electronic medical record. Assessment: Epistaxis (primary encounter diagnosis) Plan: 1. Epistaxis (R04.0) - Recent left-sided epistaxis requiring ER visit and placement of nasal packing (Merocel); on Coumadin - Nasal packing removed on day 4 - Nasal endoscopy visualized irritation throughout the anterior portion of the left nasal cavity with very mild bleeding - Applied afrin and Surgicel Fibrillar to left nasal cavity post-packing removal to promote hemostasis. - Advised use of saline spray and AYR saline gel to maintain nasal mucosa moisture; instructed to avoid nose blowing and minimize nasal manipulation for 2 weeks. - Provided nasal clips and Afrin spray for emergency use only; instructed on proper technique for managing future epistaxis episodes. - Advised to avoid heavy lifting and straining. Sneeze with mouth open. - Follow-up in 4-6 weeks to reassess. Nigel Irizarry PA-C HPI: Helne Lieberman is a 89 year old female who comes in for epistaxis. Epistaxis: - Severe epistaxis from the left nostril required ED visit. - ED placed a nasal packing device; Helen reports discomfort during insertion. - Denies history of cauterization - Mild drainage from the left nostril since Merocel placement in the ED 4 days prior - Previous epistaxis episode last spring, managed with a humidifier. - No history of sinus surgeries or nasal trauma. - Takes coumadin - Recent INR adjustments: previously alternating 2 mg and 3 mg doses, now on 2 mg daily for the next two weeks. History of TIA several years ago, initiated anticoagulation therapy. Also has history of Afib ALLERGIES Allergen Reactions Amlodipine Other: See Comments Very intense leg cramps Penicillins Unknown Sulfa (Sulfonamide * Unknown Tetracyclines Unknown Current Outpatient Medications Medication Sig losartan (COZAAR) 100 mg tablet Take 1 tablet by mouth once daily. azithromycin (ZITHROMAX Z-ZACH) 250 mg tablet Two Pills on day 1, One Pill daily on days 2-5 azithromycin (ZITHROMAX Z-ZACH) 250 mg tablet Two Pills on day 1, One Pill daily on days 2-5 warfarin (COUMADIN) 2 mg tablet Take 1 tablet by mouth daily as directed. levothyroxine (SYNTHROID) 75 mcg tablet Take 1 tablet by mouth daily before breakfast. carvedilol (COREG) 25 mg tablet 1 tablet with food Orally Twice a day for [address] (PROTONIX) 40 mg tablet Take 1 tablet by mouth once daily. warfarin (COUMADIN) 3 mg tablet Take 1 tablet by mouth once daily. acetaminophen (TYLENOL) 500 mg tablet Take 2 tablets by mouth every 8 hours. magnesium oxide (MAG-OX) 400 mg (241.3 mg magnesium) tablet Take 1 tablet by mouth once daily. polyethylene glycol 3350 (MIRALAX, GLYCOLAX) 17 gram packet Take 17 g by mouth once daily. Dissolve dose in 4 - 8 ounces of liquid and take as directed. Cholecalciferol, Vitamin D3, 50 mcg (2,000 unit) cap Take by mouth once daily. No current facility-administered medications for this visit. PAST MEDICAL HISTORY Diagnosis Date Atrial fibrillation (HCC) 07/29/2021 Essential hypertension Gallstone pancreatitis (HCC) Pancreatitis (HCC) PAST SURGICAL HISTORY Procedure Laterality Date SECTION HX x4 FOOT SURGERY HX right side HERNIA REPAIR HX KNEE SURGERY HX Right REMOVAL GALLBLADDER Social History: SOCIAL HISTORY[1] FAMILY HISTORY Problem Relation Age of Onset Stroke Mother other (tia) Sister Diabetes Sister Dementia Sister Lung Cancer Sister Stroke Sister Hypertension Sister Heart Brother PHYSICAL EXAM: On physical examination Helen Lieberman is a well-developed, well nourished female. Her speech is normal and her voice is clear. Mental status revealed patient to be alert and oriented. Mood is appropriate. Details of the physical examination: CRANIAL NERVE EXAM: II: Pupillary reflexes normal III, IV, : EOM normal V: 1,2,3: normal sensation VII: Normal strength in all divisions. VIII: Hearing grossly normal. IX, X:palatal elevation and sensation XI: Shoulder strength normal XII: Tongue mobility normal HEAD AND FACE: Physical examination of the head, neck, external nose, external ears, mouth and face fails to demonstrate any significant abnormality or asymmetry to critical face to face observation. Skin and scalp are normal. EARS: RT Canal: patent RT Drum: intact RT Pneumotoscopy: mobile LT Canal: patent LT Drum: intact LT Pneumotoscopy: mobile NOSE: Examination of the nasal cavity revealed a septum which is mi (more content not included)... [facility] 06-05-2025 History of Presen t illness Narrative OTOLARYNGOLOGY-HEAD AND NECK SURGERY CC: Helen Lieberman is a 89 year old female who is seen at the request of Reese Caruso MD for evaluation of epistaxis. My findings and recommendations will be communicated to the referring provider via the shared electronic medical record. Assessment: Epistaxis (primary encounter diagnosis) Plan: 1. Epistaxis (R04.0) - Recent left-sided epistaxis requiring ER visit and placement of nasal packing (Merocel); on Coumadin - Nasal packing removed on day 4 - Nasal endoscopy visualized irritation throughout the anterior portion of the left nasal cavity with very mild bleeding - Applied afrin and Surgicel Fibrillar to left nasal cavity post-packing removal to promote hemostasis. - Advised use of saline spray and AYR saline gel to maintain nasal mucosa moisture; instructed to avoid nose blowing and minimize nasal manipulation for 2 weeks. - Provided nasal clips and Afrin spray for emergency use only; instructed on proper technique for managing future epistaxis episodes. - Advised to avoid heavy lifting and straining. Sneeze with mouth open. - Follow-up in 4-6 weeks to reassess. Nigel Irizarry PA-C HPI: Helen Lieberman is a 89 year old female who comes in for epistaxis. Epistaxis: - Severe epistaxis from the left nostril required ED visit. - ED placed a nasal packing device; Helen reports discomfort during insertion. - Denies history of cauterization - Mild drainage from the left nostril since Merocel placement in the ED 4 days prior - Previous epistaxis episode last spring, managed with a humidifier. - No history of sinus surgeries or nasal trauma. - Takes coumadin - Recent INR adjustments: previously alternating 2 mg and 3 mg doses, now on 2 mg daily for the next two weeks. History of TIA several years ago, initiated anticoagulation therapy. Also has history of Afib ALLERGIES Allergen Reactions Amlodipine Other: See Comments Very intense leg cramps Penicillins Unknown Sulfa (Sulfonamide * Unknown Tetracyclines Unknown Current Outpatient Medications Medication Sig losartan (COZAAR) 100 mg tablet Take 1 tablet by mouth once daily. azithromycin (ZITHROMAX Z-ZACH) 250 mg tablet Two Pills on day 1, One Pill daily on days 2-5 azithromycin (ZITHROMAX Z-ZACH) 250 mg tablet Two Pills on day 1, One Pill daily on days 2-5 warfarin (COUMADIN) 2 mg tablet Take 1 tablet by mouth daily as directed. levothyroxine (SYNTHROID) 75 mcg tablet Take 1 tablet by mouth daily before breakfast. carvedilol (COREG) 25 mg tablet 1 tablet with food Orally Twice a day for [address] (PROTONIX) 40 mg tablet Take 1 tablet by mouth once daily. warfarin (COUMADIN) 3 mg tablet Take 1 tablet by mouth once daily. acetaminophen (TYLENOL) 500 mg tablet Take 2 tablets by mouth every 8 hours. magnesium oxide (MAG-OX) 400 mg (241.3 mg magnesium) tablet Take 1 tablet by mouth once daily. polyethylene glycol 3350 (MIRALAX, GLYCOLAX) 17 gram packet Take 17 g by mouth once daily. Dissolve dose in 4 - 8 ounces of liquid and take as directed. Cholecalciferol, Vitamin D3, 50 mcg (2,000 unit) cap Take by mouth once daily. No current facility-administered medications for this visit. PAST MEDICAL HISTORY Diagnosis Date Atrial fibrillation (HCC) 07/29/2021 Essential hypertension Gallstone pancreatitis (HCC) Pancreatitis (HCC) PAST SURGICAL HISTORY Procedure Laterality Date SECTION HX x4 FOOT SURGERY HX right side HERNIA REPAIR HX KNEE SURGERY HX Right REMOVAL GALLBLADDER Social History: SOCIAL HISTORY[1] FAMILY HISTORY Problem Relation Age of Onset Stroke Mother other (tia) Sister Diabetes Sister Dementia Sister Lung Cancer Sister Stroke Sister Hypertension Sister Heart Brother PHYSICAL EXAM: On physical examination Helen Lieberman is a well-developed, well nourished female. Her speech is normal and her voice is clear. Mental status revealed patient to be alert and oriented. Mood is appropriate. Details of the physical examination: CRANIAL NERVE EXAM: II: Pupillary reflexes normal III, IV, : EOM normal V: 1,2,3: normal sensation VII: Normal strength in all divisions. VIII: Hearing grossly normal. IX, X:palatal elevation and sensation XI: Shoulder strength normal XII: Tongue mobility normal HEAD AND FACE: Physical examination of the head, neck, external nose, external ears, mouth and face fails to demonstrate any significant abnormality or asymmetry to critical face to face observation. Skin and scalp are normal. EARS: RT Canal: patent RT Drum: intact RT Pneumotoscopy: mobile LT Canal: patent LT Drum: intact LT Pneumotoscopy: mobile NOSE: Examination of the nasal cavity revealed a septum which is midline. The mucosa is pink, and the visible turbinates are normal on anterior rhinoscopy. There is no purulence or polyps. Merocel in place in left nasal cavity, when removed slight bleeding in left nasal cavity. MASTICATION: . The lips and gums are without lesions. ORAL CAVITY AND OROPHARYNX: The oral mucosa, hard and soft palates, tongue, tonsil area, and posterior pharyngeal wall are without lesions. No blood in oropharynx. NECK: The neck appears symmetric without scars. On palpation, there are no masses or lymphadenopathy. The thyroid is not palpable and was free of masses. No salivary gland masses or hypertrophy is noted. Nigel Irizarry PA-C removed Merocel from left nostril. No further bleeding visualized in nasal cavity or on posterior wall of oropharynx. Instilled Surgicel fibrillar using bayonettes into the left nasal cavity and sprayed oxymetazoline into left nostril using standard procedure without complication. PROCEDURE: Nasal Endoscopy INDICATIONS: Epistaxis Obtained verbal consent for procedure PROCEDURE: Topical anesthesia and vasoconstriction was applied with spray to the right and left side(s) of the nose. After waiting an appropriate period of time for anesthesia/vasoconstriction to become effective, the nose was examined with the flexible endoscope. FINDINGS: The left nasal vestibule was examined first. The mucosa dry and bleeding slightly. The left inferior and middle turbinates normal. The left middle meatus shows a very small amount of blood. There were no other lesions or masses seen in the left nasal cavity. The right nasal vestibule was then examined. The mucosa dry. The right inferior and middle turbinates normal. The right middle meatus clear. There were no other lesions or masses seen in the right nasal cavity. Pt tolerated the procedure well, and there were no complications. The procedure was performed by ELIU Crews PA-C Recording using [employer] software for draft documentation of the visit was discussed with the patient/authorized sales representative adding machines; all questions welcomed and answered. Patient/authorized sales representative adding machines agreed to proceed This note was partially generated using [employer] voice recognition system. Occasional word recognition errors may be made. Nigel Irizarry PA-C [1] Social History Tobacco Use Smoking status: Never Smokeless tobacco: Never Vaping Use Vaping status: Never Used Substance Use Topics Alcohol use: Yes Comment: Rarely Drug use: Never documented in this encounter [facility] 06-05-2025 Telephone encounter Note Pt requesting refills as follows: Last Office Visit:01/03/2025 Next Office Visit: 07/09/2025 Requested Prescriptions Pending Prescriptions Disp Refills losartan (COZAAR) 100 mg tablet 90 tablet 1 Sig: Take 1 tablet by mouth once daily. Please review and advise. Corrine Birmingham LPN [facility] 06-05-2025 Miscellaneous Notes Pt requesting refills as follows: Last Office Visit:01/03/2025 Next Office Visit: 07/09/2025 Requested Prescriptions Pending Prescriptions Disp Refills losartan (COZAAR) 100 mg tablet 90 tablet 1 Sig: Take 1 tablet by mouth once daily. Please review and advise. Corrine Birmingham LPN documented in this encounter [facility] 06-05-2025 Note HNO ID: [id number] Author: CORRINE BIRMINGHAM LPN Service: ? Author Type: Licensed Nurse Type: Progress Notes Filed: 06/05/2025 11:02 Note Text: Pt here for INR check as ordered by Tanya Lozano CNP. INR today is 2.7. Pt took Warfarin 3 mg Tuesday and 2 mg Tue, Tue and . Pt last INR was 1.9 on discharge from [place] [facility] on 06/01/2025. Pt is scheduled today to have nasal packing removed. Per Tanya Lozano CNP pt to continue taking Warfarin 2 mg daily and recheck INR in 2 weeks. Pt aware and verbalized an understanding. Corrine Birmingham LPN [facility] 06-05-2025 History of Presen t illness Narrative Pt here for INR check as ordered by Tanya Lozano CNP. INR today is 2.7. Pt took Warfarin 3 mg Tuesday and 2 mg Tue, Tue and . Pt last INR was 1.9 on discharge from [place] [facility] on 06/01/2025. Pt is scheduled today to have nasal packing removed. Per Tanya Lozano CNP pt to continue taking Warfarin 2 mg daily and recheck INR in 2 weeks. Pt aware and verbalized an understanding. Corrine Birmingham LPN documented in this encounter [facility] 06-03-2025 Telephone encounter Note Pt aware and verbalized an understanding. Pt will be in on Tuesday for INR. Corrine Birmingham LPN [facility] 06-03-2025 Miscellaneous Notes Pt aware and verbalized an understanding. Pt will be in on Tuesday for INR. Corrine Birmingham LPN She should follow up with ENT. Recommend recheck INR this week. She should resume coumadin at 2 mg daily. Recheck inr tomorrow or Tuesday. Pt left message that she was in the ER on Tuesday for nose bleed. Pt states that she was told to follow up with office to see if she needs to hold warfarin and when to recheck INR. Please advise Corrine Birmingham LPN documented in this encounter [facility] 06-03-2025 Telephone encounter Note She should follow up with ENT. Recommend recheck INR this week. She should resume coumadin at 2 mg daily. Recheck inr tomorrow or Tuesday. [facility] 06-03-2025 Telephone encounter Note Pt left message that she was in the ER on Tuesday for nose bleed. Pt states that she was told to follow up with office to see if she needs to hold warfarin and when to recheck INR. Please advise Corrine Birmingham LPN [facility] 05-30-2025 Note HNO ID: [id number] Author: NICOLE FOREMAN MA Service: ? Author Type: Warehouse Inventory Clerk Type: Progress Notes Filed: 05/30/2025 08:28 Note Text: Patient is here to check their INR Last INR: 3.8 Current Dose: 2 mg M,W,F and 3 mg all other days INR: 3.4 Per PCP Hold today 3 mg sat, and Tuesday and 2 mg all other days recheck one week Nicole Foreman MA [facility] 05-30-2025 History of Presen t illness Narrative Patient is here to check their INR Last INR: 3.8 Current Dose: 2 mg M,W,F and 3 mg all other days INR: 3.4 Per PCP Hold today 3 mg sat, and Tuesday and 2 mg all other days recheck one week Nicole Foreman MA documented in this encounter [facility] 05-22-2025 Note HNO ID: [id number] Author: CHARISSE LANGE MA Service: ? Author Type: Warehouse Inventory Clerk Type: Progress Notes Filed: 05/22/2025 08:36 Note Text: Patient here for INR check. Last INR was 2.8 on 04/17/25. Patient is currently taking coumadin 2 mg Tuesday, and 3 mg all other days, denies missing any doses. Patient's INR today was 3.8. Per conversation with Tanya Loazno CNP patient informed to hold coumadin today then take 2 mg Tuesday, Tuesday, Tuesday and 3 mg all other days, recheck next . Written copy of directions given to patient. Charisse Lange MA [facility] 05-22-2025 History of Presen t illness Narrative Patient here for INR check. Last INR was 2.8 on 04/17/25. Patient is currently taking coumadin 2 mg Tuesday, and 3 mg all other days, denies missing any doses. Patient's INR today was 3.8. Per conversation with Tanya Lozano CNP patient informed to hold coumadin today then take 2 mg Tuesday, Tuesday, Tuesday and 3 mg all other days, recheck next . Written copy of directions given to patient. Charisse Lange MA documented in this encounter [facility] 05-03-2025 Note HNO ID: [id number] Author: CORRINE BIRMINGHAM LPN Service: ? Author Type: LICENSED NURSE Type: Progress Notes Filed: 05/03/2025 12:46 Note Text: ED Follow-Up Note Provider Action / FYI: Per pt she is still sore. Pt does not want to schedule ER follow up at this time. Corrine Birmingham LPN Call completed by: ROBERT Patient seen in ED: In Network ED Contact made with Patient: Yes The patient was identified by Name and Date of . Discussed Care with: patient Patient was seen in the Emergency Department (ED) Location: [place] Date: 04/27/2025 Reason for ED Visit: Fall ED Intervention: xray right shoulder Acetaminophen [address] brain without contrast Carvedilol 25 mg Losartan 100 mg New Medications: None Medication Changes: None Does patient understand medication changes: N/A Can patient afford medication changes: N/A Patient educated on worsening symptoms and when and where to seek additional care: No Patient Education Provided including treatment plan and new orders. Patient provided with appropriate counseling: Yes [facility] 05-03-2025 Note Patient Outreach (AG INTMLW) HELEN LIEBERMAN ([id number]) 1935 F Date Time Provider Department 05/03/25 TANYA LOZANO During your visit today, we recorded the following information about you: Corrine Birmingham LPN 05/03/2025 12:46 PM Signed ED Follow-Up Note Provider Action / FYI: Per pt she is still sore. Pt does not want to schedule ER follow up at this time. Corrine Birmingham LPN Call completed by: ROBERT Patient seen in ED: In Network ED Contact made with Patient: Yes The patient was identified by Name and Date of . Discussed Care with: patient Patient was seen in the Emergency Department (ED) Location: [place] Date: 04/27/2025 Reason for ED Visit: Fall ED Intervention: xray right shoulder Acetaminophen [address] brain without contrast Carvedilol 25 mg Losartan 100 mg New Medications: None Medication Changes: None Does patient understand medication changes: N/A Can patient afford medication changes: N/A Patient educated on worsening symptoms and when and where to seek additional care: No Patient Education Provided including treatment plan and new orders. Patient provided with appropriate counseling: Yes Allergies As of Date: 05/03/2025 Noted Allergy Reaction AMLODIPINE 08/11/2024 14 - Other: See Comments Comments: Very intense leg cramps PENICILLINS 07/24/2021 16 - Unknown SULFA (SULFONAMIDE ANTIBIOTICS) 07/24/2021 16 - Unknown TETRACYCLINES 07/24/2021 16 - Unknown Date Reviewed: 04/27/2025 Reviewed by: Lauren Martinez RN - Fully Assessed Reason for Visit: ED Follow Up [973] Cmt: [place] [facility] 04/27/2025 Prescriptions as of 05/03/2025 - warfarin (COUMADIN) 2 mg tablet Take 1 tablet by mouth daily as directed. - levothyroxine (SYNTHROID) 75 mcg tablet Take 1 tablet by mouth daily before breakfast. - losartan (COZAAR) 100 mg tablet Take 1 tablet by mouth once daily. - carvedilol (COREG) 25 mg tablet 1 tablet with food Orally Twice a day for 90 days - pantoprazole DR (PROTONIX) 40 mg tablet Take 1 tablet by mouth once daily. - warfarin (COUMADIN) 3 mg tablet Take 1 tablet by mouth once daily. - acetaminophen (TYLENOL) 500 mg tablet Take 2 tablets by mouth every 8 hours. - magnesium oxide (MAG-OX) 400 mg (241.3 mg magnesium) tablet Take 1 tablet by mouth once daily. - polyethylene glycol 3350 (MIRALAX, GLYCOLAX) 17 gram packet Take 17 g by mouth once daily. Dissolve dose in 4 - 8 ounces of liquid and take as directed. - Cholecalciferol, Vitamin D3, 50 mcg (2,000 unit) cap Take by mouth once daily. Problem List As Of Date 05/03/2025 Noted Resolved Essential hypertension, benign [I10] 03/20/2015 Hypothyroidism [E03.9] 03/20/2015 Atrial fibrillation (HCC) [I48.91] 07/29/2021 TIA (transient ischemic attack) [G45.9] 08/09/2021 GERD (gastroesophageal reflux disease) [K21.9] 08/09/2021 Vertigo [R42] 08/09/2021 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] 08/25/2021 Syncope [R55] 09/07/2023 09/08/2023 Syncope and collapse [R55] 09/07/2023 09/08/2023 Chronic diastolic CHF (congestive heart failure*09/08/2023 Hx-TIA (transient ischemic attack) [Z86.73] 08/09/2024 Hyponatremia [E87.1] 08/09/2024 Elevated troponin level [R79.89] 08/09/2024 Fall at home, sequela [W19.XXXS, Y92.009] 08/09/2024 Left hip pain [M25.552] 08/09/2024 Hematoma of left thigh [S70.12XA] 08/09/2024 Hamstring injury, left, initial encounter [S76.*08/10/2024 Encounter Status:Closed by CORRINE BIRMINGHAM on 05/03/25 [facility] 05-01-2025 Note HNO ID: [id number] Author: CHARISSE LANGE MA Service: ? Author Type: Warehouse Inventory Clerk Type: Progress Notes Filed: 05/01/2025 09:48 Note Text: ED Follow Up: Patient discharged from [facility] ED on 04/27/25. 1. How are you feeling since your ED visit? Left message inquiring how patient is doing since recent ER visit and recommended calling back if she needs anything. Have your symptoms improved or resolved? Left message 2. Were you prescribed any medications while in the ED or advised to stop any medication? Left message - If yes, were you able to fill your prescriptions? Left message -if stopped medication, what was the medication? Left message 3. Were you advised to schedule a follow up appointment with your provider? Left message - If no, Do you feel like you need an appointment scheduled? Left message - If yes, Do you need this scheduled now or has this already been scheduled? Left message 4. Were you able to contact the office or board of education secretary provider prior to your ED visit? left message 5. Is there anything else I can do for you today? Left message Charisse Lange MA [facility] 05-01-2025 Note Patient Outreach (AG INTMLW) HELEN LIEBERMAN ([id number]) 1935 F Date Time Provider Department 05/01/25 TANYA LOZANO AGINTMLW During your visit today, we recorded the following information about you: Charisse Lange MA 05/01/2025 9:48 AM Signed ED Follow Up: Patient discharged from [facility] ED on 04/27/25. 1. How are you feeling since your ED visit? Left message inquiring how patient is doing since recent ER visit and recommended calling back if she needs anything. Have your symptoms improved or resolved? Left message 2. Were you prescribed any medications while in the ED or advised to stop any medication? Left message - If yes, were you able to fill your prescriptions? Left message -if stopped medication, what was the medication? Left message 3. Were you advised to schedule a follow up appointment with your provider? Left message - If no, Do you feel like you need an appointment scheduled? Left message - If yes, Do you need this scheduled now or has this already been scheduled? Left message 4. Were you able to contact the office or board of education secretary provider prior to your ED visit? left message 5. Is there anything else I can do for you today? Left message Charisse Lange MA Allergies As of Date: 05/01/2025 Noted Allergy Reaction AMLODIPINE 08/11/2024 14 - Other: See Comments Comments: Very intense leg cramps PENICILLINS 07/24/2021 16 - Unknown SULFA (SULFONAMIDE ANTIBIOTICS) 07/24/2021 16 - Unknown TETRACYCLINES 07/24/2021 16 - Unknown Date Reviewed: 04/27/2025 Reviewed by: Lauren Martinez RN - Fully Assessed Reason for Visit: ED Follow-up [821] Cmt: STEPHAN Meyer [facility] 04/27/25 Prescriptions as of 05/01/2025 - warfarin (COUMADIN) 2 mg tablet Take 1 tablet by mouth daily as directed. - levothyroxine (SYNTHROID) 75 mcg tablet Take 1 tablet by mouth daily before breakfast. - losartan (COZAAR) 100 mg tablet Take 1 tablet by mouth once daily. - carvedilol (COREG) 25 mg tablet 1 tablet with food Orally Twice a day for 90 days - pantoprazole DR (PROTONIX) 40 mg tablet Take 1 tablet by mouth once daily. - warfarin (COUMADIN) 3 mg tablet Take 1 tablet by mouth once daily. - acetaminophen (TYLENOL) 500 mg tablet Take 2 tablets by mouth every 8 hours. - magnesium oxide (MAG-OX) 400 mg (241.3 mg magnesium) tablet Take 1 tablet by mouth once daily. - polyethylene glycol 3350 (MIRALAX, GLYCOLAX) 17 gram packet Take 17 g by mouth once daily. Dissolve dose in 4 - 8 ounces of liquid and take as directed. - Cholecalciferol, Vitamin D3, 50 mcg (2,000 unit) cap Take by mouth once daily. Problem List As Of Date 05/01/2025 Noted Resolved Essential hypertension, benign [I10] 03/20/2015 Hypothyroidism [E03.9] 03/20/2015 Atrial fibrillation (HCC) [I48.91] 07/29/2021 TIA (transient ischemic attack) [G45.9] 08/09/2021 GERD (gastroesophageal reflux disease) [K21.9] 08/09/2021 Vertigo [R42] 08/09/2021 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] 08/25/2021 Syncope [R55] 09/07/2023 09/08/2023 Syncope and collapse [R55] 09/07/2023 09/08/2023 Chronic diastolic CHF (congestive heart failure*09/08/2023 Hx-TIA (transient ischemic attack) [Z86.73] 08/09/2024 Hyponatremia [E87.1] 08/09/2024 Elevated troponin level [R79.89] 08/09/2024 Fall at home, sequela [W19.XXXS, Y92.009] 08/09/2024 Left hip pain [M25.552] 08/09/2024 Hematoma of left thigh [S70.12XA] 08/09/2024 Hamstring injury, left, initial encounter [S76.*08/10/2024 Encounter Status:Closed by CHARISSE LANGE on 05/01/25 [facility] 04-17-2025 Note HNO ID: [id number] Author: TANYA LZOANO APRN.RUBIO Service: ? Author Type: Nurse Practitioner Type: Progress Notes Filed: 04/17/2025 12:48 Note Text: Continue current dose reheck one month [facility] 04-17-2025 History of Presen t illness Narrative Continue current dose reheck one month Pt. Identified by name and . Patient came in for INR. Last INR was 2.8 on March 18. Patient took 2mg Tuesday and and 3mg rest of days. Today INR was 2.8. patient advised to continue same dose and repeat in one month. Carlos Gonzáles MA documented in this encounter [facility] 04-17-2025 Note HNO ID: [id number] Author: CARLOS GONZÁLES MA Service: ? Author Type: Warehouse Inventory Clerk Type: Progress Notes Filed: 04/17/2025 08:34 Note Text: Pt. Identified by name and . Patient came in for INR. Last INR was 2.8 on March 18. Patient took 2mg Tuesday and Thursdays and 3mg rest of days. Today INR was 2.8. patient advised to continue same dose and repeat in one month. Carlos Gonzáles MA [facility] 04-04-2025 Note HNO ID: [id number] Author: CORRINE BIRMINGHAM LPN Service: ? Author Type: LICENSED NURSE Type: Progress Notes Filed: 04/04/2025 14:42 Note Text: ED Follow-Up Note Provider Action / FYI: Per pt she is doing okay. Pt states that she is sore from the fall. Pt does not wish to schedule follow up appointment at this time. Corrine Birmingham LPN Call completed by: ROBERT Patient seen in ED: In [facility] ED Contact made with Patient: Yes The patient was identified by Name and Date of . Discussed Care with: patient Patient was seen in the Emergency Department (ED) Location: [facility] Date: 04/01/2025 Reason for ED Visit: Fall, Abrasion of scalp ED Intervention: Labs Xray hip CT brain CT cervical spine New Medications: None Medication Changes: None Does patient understand medication changes: N/A Can patient afford medication changes: N/A Patient educated on worsening symptoms and when and where to seek additional care: No Patient Education Provided including treatment plan and new orders. Patient provided with appropriate counseling: Yes [facility] 04-04-2025 History of Presen t illness Narrative ED Follow-Up Note Provider Action / FYI: Per pt she is doing okay. Pt states that she is sore from the fall. Pt does not wish to schedule follow up appointment at this time. Corrine Birmingham LPN Call completed by: ROBERT Patient seen in ED: In [facility] ED Contact made with Patient: Yes The patient was identified by Name and Date of . Discussed Care with: patient Patient was seen in the Emergency Department (ED) Location: [facility] Date: 04/01/2025 Reason for ED Visit: Fall, Abrasion of scalp ED Intervention: Labs Xray hip CT brain CT cervical spine New Medications: None Medication Changes: None Does patient understand medication changes: N/A Can patient afford medication changes: N/A Patient educated on worsening symptoms and when and where to seek additional care: No Patient Education Provided including treatment plan and new orders. Patient provided with appropriate counseling: Yes documented in this encounter [facility] 04-04-2025 Note Patient Outreach (AG INTMLW) HELEN LIEBERMAN ([id number]) 1935 F Date Time Provider Department 04/04/25 TANYA LOZANOW During your visit today, we recorded the following information about you: Corrine Birmingham LPN 04/04/2025 2:42 PM Signed ED Follow-Up Note Provider Action / FYI: Per pt she is doing okay. Pt states that she is sore from the fall. Pt does not wish to schedule follow up appointment at this time. Corrine Birmingham LPN Call completed by: ROBERT Patient seen in ED: In [facility] ED Contact made with Patient: Yes The patient was identified by Name and Date of . Discussed Care with: patient Patient was seen in the Emergency Department (ED) Location: [facility] Date: 04/01/2025 Reason for ED Visit: Fall, Abrasion of scalp ED Intervention: Labs Xray hip CT brain CT cervical spine New Medications: None Medication Changes: None Does patient understand medication changes: N/A Can patient afford medication changes: N/A Patient educated on worsening symptoms and when and where to seek additional care: No Patient Education Provided including treatment plan and new orders. Patient provided with appropriate counseling: Yes Allergies As of Date: 04/04/2025 Noted Allergy Reaction AMLODIPINE 08/11/2024 14 - Other: See Comments Comments: Very intense leg cramps PENICILLINS 07/24/2021 16 - Unknown SULFA (SULFONAMIDE ANTIBIOTICS) 07/24/2021 16 - Unknown TETRACYCLINES 07/24/2021 16 - Unknown Date Reviewed: 04/01/2025 Reviewed by: Otis Rutherford, RN - Fully Assessed Reason for Visit: ED Follow Up [973] Cmt: [facility] 04/01/2025 Prescriptions as of 04/04/2025 - warfarin (COUMADIN) 2 mg tablet Take 1 tablet by mouth daily as directed. - levothyroxine (SYNTHROID) 75 mcg tablet Take 1 tablet by mouth daily before breakfast. - losartan (COZAAR) 100 mg tablet Take 1 tablet by mouth once daily. - carvedilol (COREG) 25 mg tablet 1 tablet with food Orally Twice a day for 90 days - pantoprazole DR (PROTONIX) 40 mg tablet Take 1 tablet by mouth once daily. - warfarin (COUMADIN) 3 mg tablet Take 1 tablet by mouth once daily. - acetaminophen (TYLENOL) 500 mg tablet Take 2 tablets by mouth every 8 hours. - magnesium oxide (MAG-OX) 400 mg (241.3 mg magnesium) tablet Take 1 tablet by mouth once daily. - polyethylene glycol 3350 (MIRALAX, GLYCOLAX) 17 gram packet Take 17 g by mouth once daily. Dissolve dose in 4 - 8 ounces of liquid and take as directed. - Cholecalciferol, Vitamin D3, 50 mcg (2,000 unit) cap Take by mouth once daily. Problem List As Of Date 04/04/2025 Noted Resolved Essential hypertension, benign [I10] 03/20/2015 Hypothyroidism [E03.9] 03/20/2015 Atrial fibrillation (HCC) [I48.91] 07/29/2021 TIA (transient ischemic attack) [G45.9] 08/09/2021 GERD (gastroesophageal reflux disease) [K21.9] 08/09/2021 Vertigo [R42] 08/09/2021 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] 08/25/2021 Syncope [R55] 09/07/2023 09/08/2023 Syncope and collapse [R55] 09/07/2023 09/08/2023 Chronic diastolic CHF (congestive heart failure*09/08/2023 Hx-TIA (transient ischemic attack) [Z86.73] 08/09/2024 Hyponatremia [E87.1] 08/09/2024 Elevated troponin level [R79.89] 08/09/2024 Fall at home, sequela [W19.XXXS, Y92.009] 08/09/2024 Left hip pain [M25.552] 08/09/2024 Hematoma of left thigh [S70.12XA] 08/09/2024 Hamstring injury, left, initial encounter [S76.*08/10/2024 Encounter Status:Closed by CORRINE BIRMINGHAM on 04/04/25 [facility] 03-18-2025 Note HNO ID: [id number] Author: WILLOW WILSON MA Service: ? Author Type: Warehouse Inventory Clerk Type: Progress Notes Filed: 03/18/2025 12:46 Note Text: Called patient and informed of recommendations. Nurse visit scheduled INR calendar updated. Willow Wilson MA [facility] 03-18-2025 History of Presen t illness Narrative Called patient and informed of recommendations. Nurse visit scheduled INR calendar updated. Willow Wilson MA Continue current dose recheck in one month. Patient here for INR check. Last INR was 3.2 on 03/04/25. Patient is currently taking coumadin 3 mg everyday except Tuesday and is 2 mg, and denies missing any doses. Patient's INR today was 2.8. Please advise. Willow Wilson MA documented in this encounter [facility] 03-18-2025 Note HNO ID: [id number] Author: TANYA LOZANO APRN.RUBIO Service: ? Author Type: Nurse Practitioner Type: Progress Notes Filed: 03/18/2025 12:46 Note Text: Continue current dose recheck in one month. [facility] 03-18-2025 Note HNO ID: [id number] Author: WILLOW WILSON MA Service: ? Author Type: Warehouse Inventory Clerk Type: Progress Notes Filed: 03/18/2025 12:46 Note Text: Patient here for INR check. Last INR was 3.2 on 03/04/25. Patient is currently taking coumadin 3 mg everyday except Tuesday and is 2 mg, and denies missing any doses. Patient's INR today was 2.8. Please advise. Willow Wilson MA [facility] 03-13-2025 Telephone encounter Note patient phones requesting refills as follows: Last seen 01/03/25 . Last refill 07/14/23 . Requested Prescriptions Pending Prescriptions Disp Refills warfarin (COUMADIN) 2 mg tablet 90 tablet 1 Sig: Take 1 tablet by mouth daily as directed. Please review and advise. Charisse Lange MA [facility] 03-13-2025 Miscellaneous Notes patient phones requesting refills as follows: Last seen 01/03/25 . Last refill 07/14/23 . Requested Prescriptions Pending Prescriptions Disp Refills warfarin (COUMADIN) 2 mg tablet 90 tablet 1 Sig: Take 1 tablet by mouth daily as directed. Please review and advise. Charisse Lange MA documented in this encounter [facility] 03-04-2025 Note HNO ID: [id number] Author: CHARISSE LANGE MA Service: ? Author Type: Warehouse Inventory Clerk Type: Progress Notes Filed: 03/04/2025 08:43 Note Text: Patient here for INR check. Last INR was 2.4 on 02/04/25. Patient is currently taking coumadin 2 mg on Tuesday and 3 mg all other days, denies missing any doses. Patient's INR today was 3.2. Per conversation with Tanya Lozano CNP patient informed to take coumadin 2 mg Tuesday, , 3 mg all other days and recheck in 2 weeks. Charisse Lange MA [facility] 03-04-2025 History of Presen t illness Narrative Patient here for INR check. Last INR was 2.4 on 02/04/25. Patient is currently taking coumadin 2 mg on Tuesday and 3 mg all other days, denies missing any doses. Patient's INR today was 3.2. Per conversation with Tanya Lozano CNP patient informed to take coumadin 2 mg Tuesday, , 3 mg all other days and recheck in 2 weeks. Charisse Lange MA documented in this encounter [facility] 02-04-2025 Note HNO ID: [id number] Author: CHARISSE LANGE MA Service: ? Author Type: Warehouse Inventory Clerk Type: Progress Notes Filed: 02/04/2025 08:43 Note Text: Patient here for INR check. Last INR was 2.7 on 01/03/25. Patient is currently taking coumadin 2 mg on Sundays and 3 mg all other days, denies missing any doses. Patient's INR today was 2.4. Per conversation with Tanya Lozano CNP patient informed to continue current dose and recheck in 1 month. Charisse Lange MA [facility] 02-04-2025 History of Presen t illness Narrative Patient here for INR check. Last INR was 2.7 on 01/03/25. Patient is currently taking coumadin 2 mg on Sundays and 3 mg all other days, denies missing any doses. Patient's INR today was 2.4. Per conversation with Tanya Lozano CNP patient informed to continue current dose and recheck in 1 month. Charisse Lange MA documented in this encounter [facility] 01-03-2025 Instructions Tanya Lozano APRN.RUBIO - 01/03/2025 8:16 AM EDT BONE MINERAL DENSITY PATIENT INSTRUCTIONS ========= Bone mineral density testing measures the amount of calcium in certain parts of your bones. This information determines how strong your bones are. The test is used to detect osteoporosis, a disease in which the bone's mineral content and density are low, increasing a person's risk of fractures. The lumbar spine (lower back) and the hip are the skeletal sites usually examined. For the test, remember that: 1. You cannot take this test if you are . 2. Eat a normal diet on the day of the test. 3. Take your medications as you normally would. 4. DO NOT take calcium supplements (such as Tums) for 24 hours before the test. 5. On the day of the test, leave valuables (jewelry or credit cards) at home. 6. The test should be performed prior to oral, rectal or IV contrast studies, or at least 7 days after any of these studies. For the test, you may be asked to wear a hospital gown. You will lie on your back, on a padded table, in a comfortable position. Generally, you can resume your usual activities immediately. documented in this encounter [facility] 01-03-2025 History of Presen t illness Narrative SUBJECTIVE: Helen Lieberman is a 89 year old female who presents in follow up of HTN. PMH hypothyroidism, afib, GERD,pancreatitis, urinary incontinence, IBS. Patient denies changes in health since last office visit. Reports feeling well. Denies concerns or complaints today. She reports having skin cancer biopsy yesterday with DR Aguirre on top of head near forehead. She reports since she has felt weak since. States she feels woobly. Denies changes in vision or BARRAZA. I reviewed patients past medical, surgical, social, and family histories today and updated chart. Allergies, chronic medications, and supplements were also reviewed and list is now up to date. HTN: Ms. Lieberman indicates that she is feeling well and denies any symptoms referable to elevated blood pressure. Specifically denies headache, chest pain, palpitations, dyspnea, peripheral edema, claudication symptoms, orthopnea, fatigue, and PND. Patient denies any side effects of her medication(s) and is compliant with their regimen. She does check BP's away from this office with average BP's in the of 106-186/60s range. Very labile. Helen denies regular aerobic exercise. She watches her diet for sodium, low fat and low cholesterol most of the time. She is taking coreg 25 mg twice daily, losartan 100 mg daily. Last 3 Encounter BP Readings: Date: BP: 12/19/2024 168/70 12/03/2024 180/72 10/04/2024 146/60 Hyponatremia: She is seeing wanigan clerk Dr Ruiz for management for this. She was last seen 12/06/24. Afib: reports being dx 16 yrs ago. She reports she never followed with marketing copywriter. She is taking coreg twice daily and is on coumadin. She reports if she misses her medication she can feel it but otherwise she is asymptomatic. She is taking coumadin 2 mg on Sundays and 3 mg all other days. GERD: chronic stable. She is on Protonix daily for this. She sees Dr Casillas for this. Her last EGD was in February. Reports well controlled on Protonix Hypothyroidism: reports dx years ago. She is taking levothyroxine 75 mcg daily on an empty stomach. Denies symptoms referable to thyroid. Last TSH 12/15/24 2.29. IBS: chronic, reports episodic flare ups. She has tried Low FODMAP diet. She does see Dr Casillas as well for this. He did give her rx for levsin. She reports this as stable Osteoporosis: noted on bone density 2022. States she was told by Dr Roe never to take fosamax. She is currently not taking anything for this. She does take vit D. Does not take calcium. Denies any fractures. Pancreatitis: She did have ERCP with stent placement on 08/07/21 for biliary obstruction at [facility]. Reports she has had 3 ERCPs. First was with [facility] 06/02/21, second was with Dr Casillas 07/[address] Vazquez 08/07. Had TIA 08/09/21. TIA: patient presented to the ER for evaluation of sudden onset dizziness with speech difficulties s/p pancreatic stent placment on 08/07/21. Symptoms completely resolved upon arrival to the ER. VS on arrival HR 68, BP 206/90, RR 17. Na 128, Cr 0.85, Glucose 117, ALT 92, AST 55, NT ProBNP 966, HS Troponin T 20. CBC unremarkable. 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 We did repeat CT brain that was negative for acute abnormality. US carotids showed moderate volume bilateral plaque but less than 30% stenosis bilateral internal carotid arteries. ECHO completed and negative for PFO or atrial thrombus. Suspect she had a TIA. She was started on DAPT with ASA and Plavix and Crestor 10mg daily (had intolerance to statins in the past). Neurology recommended ASA + Anticoagulation but the patient was hesitant given recent ERCP and advisement to avoid blood thinners,and after discharge She started coumadin as previously recommended by stroke Neurologist in the hospital , She is allergic to statins cannot take statin ,even the small dose of Crestor caused stomach problems She denies new headaches, neck or back pain. No new focal weakness, numbness or paresthesias. No new problems with concentration, memory, language or confusion. No new blurry, double or loss of vision, No new imbalance, frequent falls or incoordination. No bowel or bladder incontinence. No saddle anesthesia. No muscular atrophy or fasciculations. Preventative: last colonoscopy 07/[address] Casillas. Last bone density 07/2023. She takes vit D. She does not take calcium. Never smoked. Declines mammogram Some elements of above documentation were copied from my progress note of 01/13/23 and have been reexamined and updated where appropriate. All elements reflect the current assessment and medical decision making today . PAST MEDICAL HISTORY Diagnosis Date Atrial fibrillation (HCC) 07/29/2021 Essential hypertension Gallstone pancreatitis Pancreatitis PAST SURGICAL HISTORY Procedure Laterality Date SECTION HX x4 FOOT SURGERY HX right side HERNIA REPAIR HX KNEE SURGERY HX Right REMOVAL GALLBLADDER Social History Tobacco Use Smoking status: Never Smokeless tobacco: Never Vaping Use Vaping status: Never Used Substance Use Topics Alcohol use: Yes Comment: Rarely Drug use: Never Family history reviewed. ALLERGIES Allergen Reactions Amlodipine Other: See Comments Very intense leg cramps Penicillins Unknown Sulfa (Sulfonamide * Unknown Tetracyclines Unknown Current Outpatient Medications Medication Sig losartan (COZAAR) 100 mg tablet Take 1 tablet by mouth once daily. carvedilol (COREG) 25 mg tablet 1 tablet with food Orally Twice a day for [address] (PROTONIX) 40 mg tablet Take 1 tablet by mouth once daily. warfarin (COUMADIN) 3 mg tablet Take 1 tablet by mouth once daily. acetaminophen (TYLENOL) 500 mg tablet Take 2 tablets by mouth every 8 hours. magnesium oxide (MAG-OX) 400 mg (241.3 mg magnesium) tablet Take 1 tablet by mouth once daily. levothyroxine (SYNTHROID) 75 mcg tablet TAKE 1 TABLET BY MOUTH IN THE MORNING ON AN EMPTY STOMACH warfarin (COUMADIN) 2 mg tablet Take 1 tablet by mouth daily as directed. polyethylene glycol 3350 (MIRALAX, GLYCOLAX) 17 gram packet Take 17 g by mouth once daily. Dissolve dose in 4 - 8 ounces of liquid and take as directed. Cholecalciferol, Vitamin D3, 50 mcg (2,000 unit) cap Take by mouth once daily. No current facility-administered medications for this visit. Review of Systems Constitutional: Negative for chills, diaphoresis, fever, malaise/fatigue and weight loss. HENT: Negative for ear discharge, ear pain, hearing loss, nosebleeds and tinnitus. Eyes: Negative for blurred vision, double vision and photophobia. Respiratory: Negative for cough, shortness of breath and wheezing. Cardiovascular: Negative for chest pain, palpitations and leg swelling. Gastrointestinal: Negative for abdominal pain, diarrhea, nausea and vomiting. Genitourinary: Negative for dysuria, frequency and hematuria. Musculoskeletal: Negative. Neurological: Positive for dizziness and weakness. Negative for tingling, sensory change, speech change, focal weakness, seizures and headaches. Feels Wobbly Psychiatric/Behavioral: Negative for depression. The patient is not nervous/anxious and does not have insomnia. 01/03/25 0747 BP: 120/50 Pulse: 75 Resp: 18 SpO2: 99% Weight: 56.1 kg (123 lb 9.6 oz) Height: 157.5 cm (5' 2) Physical Exam Vitals and nursing note reviewed. Constitutional: General: She is not in acute distress. Appearance: She is not ill-appearing. HENT: Head: Normocephalic and atraumatic. Eyes: Pupils: Pupils are equal, round, and reactive to light. Neck: Vascular: No carotid bruit. Cardiovascular: Rate and Rhythm: Normal rate and regular rhythm. Pulses: Normal pulses. Carotid pulses are 2+ on the right side and 2+ on the left side. Radial pulses are 2+ on the right side and 2+ on the left side. Heart sounds: Normal heart sounds, S1 normal and S2 normal. No murmur heard. Pulmonary: Effort: Pulmonary effort is normal. No accessory muscle usage or respiratory distress. Breath sounds: Normal breath sounds. No decreased breath sounds, wheezing or rhonchi. Abdominal: General: Bowel sounds are normal. Palpations: Abdomen is soft. Tenderness: There is no abdominal tenderness. Musculoskeletal: Right lower leg: No edema. Left lower leg: No edema. Lymphadenopathy: Cervical: No cervical adenopathy. Skin: General: Skin is warm and dry. Neurological: Mental Status: She is alert and oriented to person, place, and time. Psychiatric: Mood and Affect: Mood normal. Behavior: Behavior normal. Thought Content: Thought content normal. Judgment: Judgment normal. Latest Ref Rng 11/26/2024 11/29/2024 12/15/2024 Protein, Total 6.3 - 8.0 g/dL 7.4 Albumin 3.9 - 4.9 g/dL 4.0 Calcium 8.5 - 10.2 mg/dL 9.9 9.6 Bilirubin, Total 0.2 - 1.3 mg/dL 0.7 Alkaline Phosphatase 34 - 123 U/L 77 AST 13 - 35 U/L 17 ALT 7 - 38 U/L 10 Glucose 74 - 99 mg/dL 83 113 (H) BUN 7 - 21 mg/dL 12 13 Creatinine 0.58 - 0.96 mg/dL 0.93 1.01 (H) Sodium 136 - 144 mmol/L 135 (L) 134 (L) Potassium 3.7 - 5.1 mmol/L 4.7 4.6 Chloride 98 - 107 mmol/L 98 98 CO2 22 - 30 mmol/L 29 28 Anion Gap 8 - 15 mmol/L 8 8 eGFR >=60 mL/min/1.73m 59 (L) 54 (L) WBC 3.70 - 11.00 k/uL 5.13 RBC 3.90 - 5.20 m/uL 4.29 Hemoglobin 11.5 - 15.5 g/dL 13.4 Hematocrit 36.0 - 46.0 % 41.8 MCV 80.0 - 100.0 fL 97.4 MCH 26.0 - 34.0 pg 31.2 MCHC 30.5 - 36.0 g/dL 32.1 RDW-CV 11.5 - 15.0 % 12.2 Platelet Count 150 - 400 k/uL 340 MPV 9.0 - 12.7 fL 9.2 Cholesterol, Total <200 mg/dL 237 (H) Triglyceride <150 mg/dL 120 HDL Cholesterol >39 mg/dL 43 Non HDL Cholesterol <130 mg/dL 194 (H) Fasting Time hrs 12 VLDL Cholesterol <30 mg/dL 24 TC:HDL Ratio <5.10 5.51 (H) LDL Cholesterol <100 mg/dL 170 (H) LDL:HDL Ratio <2.54 3.95 (H) Creatinine, Ur Random (UCRR) 42.2 - 237.9 mg/dL 49.7 Albumin, Urine Random mg/L 19.4 Albumin/Creat Ratio <30 mg/g 39 (H) PT Sec <13.1 sec 24.0 (H) PT INR 0.9 - 1.3 2.4 (H) Uric Acid 2.5 - 6.6 mg/dL 4.3 Lipase 16 - 61 U/L 50 Vitamin D 25 Hydroxy >=30.0 ng/mL 51.6 TSH 0.270 - 4.200 mIU/L 2.290 Free T4 0.9 - 1.7 ng/dL 1.1 Legend: (L) Low (H) High Office Visit on 01/03/2025 Component Date Value Ref Range Status INR (POCT) 01/03/2025 2.7 (H) 0.8 - 1.2 Final Internal Quality Check 01/03/2025 Acceptable Final ASSESSMENT/PLAN: 1. Essential hypertension, benign - ICD9: 401.1, ICD10: I10 (primary diagnosis) - Controlled - Continue current medications - Recommend home blood pressure monitoring, to bring results to next visit - Encouraged sodium restriction, DASH or Mediterranean diet - Recommend regular aerobic exercise - Reviewed risks of hypertension and principles of treatment 2. Hypothyroidism, unspecified type - ICD9: 244.9, ICD10: E03.9 - Instructed patient on importance of taking on an empty stomach either first thing in the morning or at bedtime. - check TSH and T4/FTI today - continue current dose of Synthroid 0.075 mg 3. Paroxysmal atrial fibrillation (HCC) - ICD9: 427.31, ICD10: I48.0 - chronic, stable. asymptomatic - INR today 2.7 continue current dose of 2 mg Sundays and 3 mg all other days. - INR (POC) 4. Hyponatremia - ICD9: 276.1, ICD10: E87.1 - Chronic stable - continue follow up and management with nephrology 5. Osteoporoses - ICD9: 733.00, ICD10: M81.0 - Reviewed the need for Calcium and Vitamin D supplements and weight bearing exercise as tolerated - GENERAL RECOMMENDATIONS FOR PREVENTION OF BONE LOSS: 1. 1200 mg - 1500 mg calcium per day if no history of renal calculi for adults 50 years and over. 2. 800 - 1000 International Units of vitamin D3 per day if no history of renal calculi for adults 50 years and over. 3. Weight bearing exercise 4. Advise against smoking and recommend smoking cessation if appropriate. 5. Avoid excessive use of caffeine, soft drinks, and alcoholic beverages. - DXA-AXIAL SKELETON 6. Post-menopausal - ICD9: V49.81, ICD10: Z78.0 - DXA-AXIAL SKELETON Tanya Lozano APRN.COLLEGE ATHLETE documented in this encounter [facility] 01-03-2025 Note HNO ID: [id number] Author: TANYA LOZANO APRN.COLLEGE ATHLETE Service: ? Author Type: Nurse Practitioner Type: Progress Notes Filed: 01/03/2025 08:43 Note Text: SUBJECTIVE: Helen Lieberman is a 89 year old female who presents in follow up of HTN. PMH hypothyroidism, afib, GERD,pancreatitis, urinary incontinence, IBS. Patient denies changes in health since last office visit. Reports feeling well. Denies concerns or complaints today. She reports having skin cancer biopsy yesterday with DR Aguirre on top of head near forehead. She reports since she has felt weak since. States she feels woobly. Denies changes in vision or BARRAZA. I reviewed patients past medical, surgical, social, and family histories today and updated chart. Allergies, chronic medications, and supplements were also reviewed and list is now up to date. HTN: Ms. Lieberman indicates that she is feeling well and denies any symptoms referable to elevated blood pressure. Specifically denies headache, chest pain, palpitations, dyspnea, peripheral edema, claudication symptoms, orthopnea, fatigue, and PND. Patient denies any side effects of her medication(s) and is compliant with their regimen. She does check BP's away from this office with average BP's in the of 106-186/60s range. Very labile. Helen denies regular aerobic exercise. She watches her diet for sodium, low fat and low cholesterol most of the time. She is taking coreg 25 mg twice daily, losartan 100 mg daily. Last 3 Encounter BP Readings: Date: BP: 12/19/2024 168/70 12/03/2024 180/72 10/04/2024 146/60 Hyponatremia: She is seeing wanigan clerk Dr Ruiz for management for this. She was last seen 12/06/24. Afib: reports being dx 16 yrs ago. She reports she never followed with marketing copywriter. She is taking coreg twice daily and is on coumadin. She reports if she misses her medication she can feel it but otherwise she is asymptomatic. She is taking coumadin 2 mg on Sundays and 3 mg all other days. GERD: chronic stable. She is on Protonix daily for this. She sees Dr Casillas for this. Her last EGD was in February. Reports well controlled on Protonix Hypothyroidism: reports dx years ago. She is taking levothyroxine 75 mcg daily on an empty stomach. Denies symptoms referable to thyroid. Last TSH 12/15/24 2.29. IBS: chronic, reports episodic flare ups. She has tried Low FODMAP diet. She does see Dr Casillas as well for this. He did give her rx for levsin. She reports this as stable Osteoporosis: noted on bone density 2022. States she was told by Dr Roe never to take fosamax. She is currently not taking anything for this. She does take vit D. Does not take calcium. Denies any fractures. Pancreatitis: She did have ERCP with stent placement on 08/07/21 for biliary obstruction at [facility]. Reports she has had 3 ERCPs. First was with Bon 06/02/21, second was with Dr Casillas 07/[address] Vazquez 08/07. Had TIA 08/09/21. TIA: patient presented to the ER for evaluation of sudden onset dizziness with speech difficulties s/p pancreatic stent placment on 08/07/21. Symptoms completely resolved upon arrival to the ER. VS on arrival HR 68, BP 206/90, RR 17. Na 128, Cr 0.85, Glucose 117, ALT 92, AST 55, NT ProBNP 966, HS Troponin T 20. CBC unremarkable. 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 We did repeat CT brain that was negative for acute abnormality. US carotids showed moderate volume bilateral plaque but less than 30% stenosis bilateral internal carotid arteries. ECHO completed and negative for PFO or atrial thrombus. Suspect she had a TIA. She was started on DAPT with ASA and Plavix and Crestor 10mg daily (had intolerance to statins in the past). Neurology recommended ASA + Anticoagulation but the patient was hesitant given recent ERCP and advisement to avoid blood thinners,and after discharge She started coumadin as previously recommended by stroke Neurologist in the hospital , She is allergic to statins cannot take statin ,even the small dose of Crestor caused stomach problems She denies new headaches, neck or back pain. No new focal weakness, numbness or paresthesias. No new problems with concentration, memory, language or confusion. No new blurry, double or loss of vision, No new imbalance, frequent falls or incoordination. No bowel or bladder incontinence. No saddle anesthesia. No muscular atrophy or fasciculations. Preventative: last colonoscopy 07/[address] Casillas. Last bone density 07/2023. She takes vit D. She does not take calcium. Never smoked. Declines mammogram Some elements of above documentation were copied from my progress note of 01/13/23 and have been reexamined and updated where appropriate. All elements reflect the current assessment and medical decision making today . PAST MEDICAL HISTORY Diagnosis Date Atrial fibrillation (HCC) 07/29/2021 Genie (more content not included)... [facility] 12-20-2024 Telephone encounter Note Pt requesting refills as follows: Last Office Visit:12/19/2024 Next Office Visit:01/03/2025 Requested Prescriptions Pending Prescriptions Disp Refills losartan (COZAAR) 100 mg tablet 30 tablet 0 Sig: Take 1 tablet by mouth once daily. Please review and advise. Corrine Birmingham LPN [facility] 12-20-2024 Miscellaneous Notes Pt requesting refills as follows: Last Office Visit:12/19/2024 Next Office Visit:01/03/2025 Requested Prescriptions Pending Prescriptions Disp Refills losartan (COZAAR) 100 mg tablet 30 tablet 0 Sig: Take 1 tablet by mouth once daily. Please review and advise. Corrine Birmingham LPN documented in this encounter [facility] 12-19-2024 Note HNO ID: [id number] Author: TANYA LOZANO APRN.COLLEGE ATHLETE Service: ? Author Type: Nurse Practitioner Type: Progress Notes Filed: 12/19/2024 12:37 Note Text: This note was created using [employer]. Subjective Helen Lieberman is a 89 year old female here today for BP follow up. Nephrology Dr Streeter increased her coreg to 25 mg twice daily. She is also taking losartan 50 mg 2 tabs daily. She forgot her BP log at home. Home BP 140-150s/60s in evening. She reports in am 180s/80s. She reports her BP readings have come down since increasing her medications. She just increased her coreg on 12/07/24. ALLERGIES Allergen Reactions Amlodipine Other: See Comments Very intense leg cramps Penicillins Unknown Sulfa (Sulfonamide * Unknown Tetracyclines Unknown Current Outpatient Medications Medication Sig Dispense Refill carvedilol (COREG) 25 mg tablet 1 tablet with food Orally Twice a day for 90 days losartan (COZAAR) 50 mg tablet Take 2 tablets by mouth once daily. [address] (PROTONIX) 40 mg tablet Take 1 tablet by mouth once daily. 90 tablet 3 warfarin (COUMADIN) 3 mg tablet Take 1 tablet by mouth once daily. 90 tablet 3 acetaminophen (TYLENOL) 500 mg tablet Take 2 tablets by mouth every 8 hours. magnesium oxide (MAG-OX) 400 mg (241.3 mg magnesium) tablet Take 1 tablet by mouth once daily. levothyroxine (SYNTHROID) 75 mcg tablet TAKE 1 TABLET BY MOUTH IN THE MORNING ON AN EMPTY STOMACH 270 tablet 0 warfarin (COUMADIN) 2 mg tablet Take 1 tablet by mouth daily as directed. 90 tablet 1 polyethylene glycol 3350 (MIRALAX, GLYCOLAX) 17 gram packet Take 17 g by mouth once daily. Dissolve dose in 4 - 8 ounces of liquid and take as directed. Cholecalciferol, Vitamin D3, 50 mcg (2,000 unit) cap Take by mouth once daily. No current facility-administered medications for this visit. ACTIVE PROBLEM LIST Essential Hypertension, Benign Hypothyroidism Atrial Fibrillation (Hcc) Tia (Transient Ischemic Attack) Gerd (Gastroesophageal Reflux Disease) Vertigo Red Blood Cell Antibody Positive Chronic Diastolic Chf (Congestive Heart Failure) (Hcc) Hx-Tia (Transient Ischemic Attack) Hyponatremia Elevated Troponin Level Fall At Home, Sequela Left Hip Pain Hematoma of Left Thigh Hamstring Injury, Left, Initial Encounter PAST MEDICAL HISTORY Diagnosis Date Atrial fibrillation (HCC) 07/29/2021 Essential hypertension Gallstone pancreatitis Pancreatitis PAST SURGICAL HISTORY Procedure Laterality Date SECTION HX x4 FOOT SURGERY HX right side HERNIA REPAIR HX KNEE SURGERY HX Right REMOVAL GALLBLADDER Social History Tobacco Use Smoking status: Never Smokeless tobacco: Never Vaping Use Vaping status: Never Used Substance Use Topics Alcohol use: Yes Comment: Rarely Drug use: Never Family History Problem Relation Age of Onset Stroke Mother other (tia) Sister Diabetes Sister Dementia Sister Lung Cancer Sister Stroke Sister Hypertension Sister Heart Brother Review of Systems Constitutional: Negative for chills, fatigue and fever. HENT: Positive for sinus pressure and sinus pain. Respiratory: Negative for cough, shortness of breath and wheezing. Cardiovascular: Negative for chest pain, palpitations and leg swelling. Neurological: Negative for dizziness, speech difficulty, weakness, light-headedness, numbness and headaches. Objective BP 172/70 Pulse (!) 49 Resp 18 Ht 157.5 cm (5' 2) Wt 56 kg (123 lb 6.4 oz) SpO2 98% BMI 22.57 kg/m? 12/19/24 1043 12/19/24 1059 BP: 172/70 168/70 Pulse: (!) 49 (!) 52 Resp: 18 SpO2: 98% Weight: 56 kg (123 lb 6.4 oz) Height: 157.5 cm (5' 2) Physical Exam Vitals and nursing note reviewed. Constitutional: General: She is not in acute distress. Appearance: She is not ill-appearing. Cardiovascular: Rate and Rhythm: Normal rate and regular rhythm. Pulses: Normal pulses. Heart sounds: Normal heart sounds. Pulmonary: Effort: Pulmonary effort is normal. No respiratory distress. Breath sounds: Normal breath sounds. No wheezing, rhonchi or rales. Skin: General: Skin is warm and dry. Neurological: Mental Status: She is alert and oriented to person, place, and time. Psychiatric: Mood and Affect: Mood normal. Behavior: Behavior normal. Thought Content: Thought content normal. Judgment: Judgment normal. Assessment and Plan ASSESSMENT/PLAN: 1. Essential hypertension, benign - ICD9: 401.1, ICD10: I10 (primary diagnosis) - Improving control - Continue current medications - Recommend home blood pressure monitoring, to bring results to next visit - Encouraged sodium restriction, DASH or Mediterranean diet - Recommend regular aerobic exercise - Reviewed risks of hypertension and principles of treatment 2. Scalp lesion - ICD9: 709.9, ICD10: L98.9 - chronic lesion top of scalp. Referral to derm - CONSULT TO DERMATOLOGY Tanya Bush (more content not included)... [facility] 12-19-2024 History of Presen t illness Narrative Images from the original note were not included. This note was created using [employer]. Subjective Helen Lieberman is a 89 year old female here today for BP follow up. Nephrology Dr Streeter increased her coreg to 25 mg twice daily. She is also taking losartan 50 mg 2 tabs daily. She forgot her BP log at home. Home BP 140-150s/60s in evening. She reports in am 180s/80s. She reports her BP readings have come down since increasing her medications. She just increased her coreg on 12/07/24. ALLERGIES Allergen Reactions Amlodipine Other: See Comments Very intense leg cramps Penicillins Unknown Sulfa (Sulfonamide * Unknown Tetracyclines Unknown Current Outpatient Medications Medication Sig Dispense Refill carvedilol (COREG) 25 mg tablet 1 tablet with food Orally Twice a day for 90 days losartan (COZAAR) 50 mg tablet Take 2 tablets by mouth once daily. [address] (PROTONIX) 40 mg tablet Take 1 tablet by mouth once daily. 90 tablet 3 warfarin (COUMADIN) 3 mg tablet Take 1 tablet by mouth once daily. 90 tablet 3 acetaminophen (TYLENOL) 500 mg tablet Take 2 tablets by mouth every 8 hours. magnesium oxide (MAG-OX) 400 mg (241.3 mg magnesium) tablet Take 1 tablet by mouth once daily. levothyroxine (SYNTHROID) 75 mcg tablet TAKE 1 TABLET BY MOUTH IN THE MORNING ON AN EMPTY STOMACH 270 tablet 0 warfarin (COUMADIN) 2 mg tablet Take 1 tablet by mouth daily as directed. 90 tablet 1 polyethylene glycol 3350 (MIRALAX, GLYCOLAX) 17 gram packet Take 17 g by mouth once daily. Dissolve dose in 4 - 8 ounces of liquid and take as directed. Cholecalciferol, Vitamin D3, 50 mcg (2,000 unit) cap Take by mouth once daily. No current facility-administered medications for this visit. ACTIVE PROBLEM LIST Essential Hypertension, Benign Hypothyroidism Atrial Fibrillation (Hcc) Tia (Transient Ischemic Attack) Gerd (Gastroesophageal Reflux Disease) Vertigo Red Blood Cell Antibody Positive Chronic Diastolic Chf (Congestive Heart Failure) (Hcc) Hx-Tia (Transient Ischemic Attack) Hyponatremia Elevated Troponin Level Fall At Home, Sequela Left Hip Pain Hematoma of Left Thigh Hamstring Injury, Left, Initial Encounter PAST MEDICAL HISTORY Diagnosis Date Atrial fibrillation (HCC) 07/29/2021 Essential hypertension Gallstone pancreatitis Pancreatitis PAST SURGICAL HISTORY Procedure Laterality Date SECTION HX x4 FOOT SURGERY HX right side HERNIA REPAIR HX KNEE SURGERY HX Right REMOVAL GALLBLADDER Social History Tobacco Use Smoking status: Never Smokeless tobacco: Never Vaping Use Vaping status: Never Used Substance Use Topics Alcohol use: Yes Comment: Rarely Drug use: Never Family History Problem Relation Age of Onset Stroke Mother other (tia) Sister Diabetes Sister Dementia Sister Lung Cancer Sister Stroke Sister Hypertension Sister Heart Brother Review of Systems Constitutional: Negative for chills, fatigue and fever. HENT: Positive for sinus pressure and sinus pain. Respiratory: Negative for cough, shortness of breath and wheezing. Cardiovascular: Negative for chest pain, palpitations and leg swelling. Neurological: Negative for dizziness, speech difficulty, weakness, light-headedness, numbness and headaches. Objective BP 172/70 Pulse (!) 49 Resp 18 Ht 157.5 cm (5' 2) Wt 56 kg (123 lb 6.4 oz) SpO2 98% BMI 22.57 kg/m 12/19/24 1043 12/19/24 1059 BP: 172/70 168/70 Pulse: (!) 49 (!) 52 Resp: 18 SpO2: 98% Weight: 56 kg (123 lb 6.4 oz) Height: 157.5 cm (5' 2) Physical Exam Vitals and nursing note reviewed. Constitutional: General: She is not in acute distress. Appearance: She is not ill-appearing. Cardiovascular: Rate and Rhythm: Normal rate and regular rhythm. Pulses: Normal pulses. Heart sounds: Normal heart sounds. Pulmonary: Effort: Pulmonary effort is normal. No respiratory distress. Breath sounds: Normal breath sounds. No wheezing, rhonchi or rales. Skin: General: Skin is warm and dry. Neurological: Mental Status: She is alert and oriented to person, place, and time. Psychiatric: Mood and Affect: Mood normal. Behavior: Behavior normal. Thought Content: Thought content normal. Judgment: Judgment normal. Assessment and Plan ASSESSMENT/PLAN: 1. Essential hypertension, benign - ICD9: 401.1, ICD10: I10 (primary diagnosis) - Improving control - Continue current medications - Recommend home blood pressure monitoring, to bring results to next visit - Encouraged sodium restriction, DASH or Mediterranean diet - Recommend regular aerobic exercise - Reviewed risks of hypertension and principles of treatment 2. Scalp lesion - ICD9: 709.9, ICD10: L98.9 - chronic lesion top of scalp. Referral to derm - CONSULT TO DERMATOLOGY Tanya Lozano APRN.CNP documented in this encounter [facility] 12-18-2024 Telephone encounter Note Patient informed of results and recommendations. States she will discuss the zetia with Tanya tomorrow at her appointment. Charisse Lange MA [facility] 12-18-2024 Telephone encounter Note ----- Message from Tanya Lozano APRN.COLLEGE ATHLETE sent at 12/16/2024 6:31 PM EDT ----- Lipids improved from last year. I know I have recommended statin in the past but she has a statin intolerance and declines management with them. Recommend increasing fiber in diet. We could try another medication such as zetia if she is interested. Vit d wnl INR in jeri range. Check one month. Continue current dose Thyroid wnl [facility] 12-18-2024 Miscellaneous Notes Patient informed of results and recommendations. States she will discuss the zetia with Tanya tomorrow at her appointment. Charisse Lange MA ----- Message from Tanya Lozano APRN.COLLEGE ATHLETE sent at 12/16/2024 6:31 PM EDT ----- Lipids improved from last year. I know I have recommended statin in the past but she has a statin intolerance and declines management with them. Recommend increasing fiber in diet. We could try another medication such as zetia if she is interested. Vit d wnl INR in jeri range. Check one month. Continue current dose Thyroid wnl documented in this encounter [facility] 12-03-2024 Note HNO ID: [id number] Author: CHARISSE LANGE MA Service: ? Author Type: Warehouse Inventory Clerk Type: Progress Notes Filed: 12/03/2024 21:08 Note Text: Home BP Readings: 11/30 11am left arm 161/66, right arm 152/92 12/01 9:45am right arm 139/69, left arm 144/61, 2:45pm right arm 154/87 12/02 9am right arm 153/67, left arm 148/69, 5:30pm right arm 170/82, left arm 196/77 12/03 7:15am right arm 217/105, left arm 213/93 [facility] 12-03-2024 History of Presen t illness Narrative Home BP Readings: 11/30 11am left arm 161/66, right arm 152/92 12/01 9:45am right arm 139/69, left arm 144/61, 2:45pm right arm 154/87 12/02 9am right arm 153/67, left arm 148/69, 5:30pm right arm 170/82, left arm 196/77 12/03 7:15am right arm 217/105, left arm 213/93 This note was created using [employer]. Subjective Helen Lieberman is a 89 year old female here today concerned regarding her BP. She reports was at her GI last week and her BP was elevated at 209/89 and was advised to contact PCP. She is taking losartan 50 mg and coreg 12.5 mg twice daily. Denies missing doses. Reports she does not feel any different. She reports her BPs have been all over. Home BP Readings: 11/30 11am left arm 161/66, right arm 152/92 12/01 9:45am right arm 139/69, left arm 144/61, 2:45pm right arm 154/87 12/02 9am right arm 153/67, left arm 148/69, 5:30pm right arm 170/82, left arm 196/77 12/03 7:15am right arm 217/105, left arm 213/93 She does admit to being stressed over trying to settle her husbands estate. States she has had sinus pain and pressure x3 wks. States she has constant watery drainage from her nose. States constant sinus headache. She feels it is related to her sinuses and not her BP. She has an appt with her kidney doctor this week. She is seeing DR Gore. ALLERGIES Allergen Reactions Amlodipine Other: See Comments Very intense leg cramps Penicillins Unknown Sulfa (Sulfonamide * Unknown Tetracyclines Unknown Current Outpatient Medications Medication Sig Dispense Refill carvedilol (COREG) 12.5 mg tablet Take 1 tablet by mouth two times a day with meals. [address] (PROTONIX) 40 mg tablet Take 1 tablet by mouth once daily. 90 tablet 3 warfarin (COUMADIN) 3 mg tablet Take 1 tablet by mouth once daily. 90 tablet 3 losartan (COZAAR) 50 mg tablet Take 1 tablet by mouth once daily. 90 tablet 0 acetaminophen (TYLENOL) 500 mg tablet Take 2 tablets by mouth every 8 hours. magnesium oxide (MAG-OX) 400 mg (241.3 mg magnesium) tablet Take 1 tablet by mouth once daily. carvedilol (COREG) 6.25 mg tablet Take 1 tablet by mouth two times a day. levothyroxine (SYNTHROID) 75 mcg tablet TAKE 1 TABLET BY MOUTH IN THE MORNING ON AN EMPTY STOMACH 270 tablet 0 warfarin (COUMADIN) 2 mg tablet Take 1 tablet by mouth daily as directed. (Patient taking differently: Take 2 mg by mouth every Tuesday.) 90 tablet 1 polyethylene glycol 3350 (MIRALAX, GLYCOLAX) 17 gram packet Take 17 g by mouth once daily. Dissolve dose in 4 - 8 ounces of liquid and take as directed. Cholecalciferol, Vitamin D3, 50 mcg (2,000 unit) cap Take by mouth once daily. No current facility-administered medications for this visit. ACTIVE PROBLEM LIST Essential Hypertension, Benign Hypothyroidism Atrial Fibrillation (Hcc) Tia (Transient Ischemic Attack) Gerd (Gastroesophageal Reflux Disease) Vertigo Red Blood Cell Antibody Positive Chronic Diastolic Chf (Congestive Heart Failure) (Hcc) Hx-Tia (Transient Ischemic Attack) Hyponatremia Elevated Troponin Level Fall At Home, Sequela Left Hip Pain Hematoma of Left Thigh Hamstring Injury, Left, Initial Encounter PAST MEDICAL HISTORY Diagnosis Date Atrial fibrillation (HCC) 07/29/2021 Essential hypertension Gallstone pancreatitis Pancreatitis PAST SURGICAL HISTORY Procedure Laterality Date SECTION HX x4 FOOT SURGERY HX right side HERNIA REPAIR HX KNEE SURGERY HX Right REMOVAL GALLBLADDER Social History Tobacco Use Smoking status: Never Smokeless tobacco: Never Vaping Use Vaping status: Never Used Substance Use Topics Alcohol use: Yes Comment: Rarely Drug use: Never Family History Problem Relation Age of Onset Stroke Mother other (tia) Sister Diabetes Sister Dementia Sister Lung Cancer Sister Stroke Sister Hypertension Sister Heart Brother Review of Systems Constitutional: Negative for chills, diaphoresis, fatigue and fever. HENT: Positive for congestion, postnasal drip, sinus pressure and sinus pain. Negative for ear pain and sore throat. Respiratory: Negative for cough and shortness of breath. Cardiovascular: Negative for chest pain, palpitations and leg swelling. Gastrointestinal: Negative for diarrhea, nausea and vomiting. Neurological: Positive for headaches. Negative for dizziness, syncope, speech difficulty, weakness, light-headedness and numbness. Psychiatric/Behavioral: Negative for dysphoric mood. The patient is not nervous/anxious. Objective 12/03/24 0758 12/03/24 0817 12/03/24 0839 12/03/24 0858 BP: 200/90 198/80 192/78 180/72 Pulse: 64 Resp: 16 Temp: 36.4 C (97.5 F) SpO2: 95% Weight: 55.3 kg (122 lb) Height: 157.5 cm (5' 2) Physical Exam Vitals and nursing note reviewed. Constitutional: General: She is not in acute distress. Appearance: She is not ill-appearing, toxic-appearing or diaphoretic. HENT: Head: Normocephalic and atraumatic. Cardiovascular: Rate and Rhythm: Normal rate and regular rhythm. Pulses: Normal pulses. Heart sounds: Normal heart sounds, S1 normal and S2 normal. No murmur heard. Pulmonary: Effort: Pulmonary effort is normal. No respiratory distress. Breath sounds: Normal breath sounds. No wheezing, rhonchi or rales. Musculoskeletal: Right lower leg: No edema. Left lower leg: No edema. Skin: General: Skin is warm and dry. Neurological: General: No focal deficit present. Mental Status: She is alert and oriented to person, place, and time. Cranial Nerves: Facial asymmetry present. Motor: Motor function is intact. Coordination: Coordination is intact. Gait: Gait is intact. Comments: Left eye droop(Pt reports chronic, not new) Psychiatric: Mood and Affect: Mood normal. Behavior: Behavior normal. Thought Content: Thought content normal. Judgment: Judgment normal. Latest Ref [facility] 11/29/2024 Protein, Total 6.3 - 8.0 g/dL 7.4 Albumin 3.9 - 4.9 g/dL 4.0 Calcium 8.5 - 10.2 mg/dL 9.6 Bilirubin, Total 0.2 - 1.3 mg/dL 0.7 Alkaline Phosphatase 34 - 123 U/L 77 AST 13 - 35 U/L 17 ALT 7 - 38 U/L 10 Glucose 74 - 99 mg/dL 113 (H) BUN 7 - 21 mg/dL 13 Creatinine 0.58 - 0.96 mg/dL 1.01 (H) Sodium 136 - 144 mmol/L 134 (L) Potassium 3.7 - 5.1 mmol/L 4.6 Chloride 98 - 107 mmol/L 98 CO2 22 - 30 mmol/L 28 Anion Gap 8 - 15 mmol/L 8 eGFR >=60 mL/min/1.73m 54 (L) WBC 3.70 - 11.00 k/uL 5.13 RBC 3.90 - 5.20 m/uL 4.29 Hemoglobin 11.5 - 15.5 g/dL 13.4 Hematocrit 36.0 - 46.0 % 41.8 MCV 80.0 - 100.0 fL 97.4 MCH 26.0 - 34.0 pg 31.2 MCHC 30.5 - 36.0 g/dL 32.1 RDW-CV 11.5 - 15.0 % 12.2 Platelet Count 150 - 400 k/uL 340 MPV 9.0 - 12.7 fL 9.2 Lipase 16 - 61 U/L 50 Legend: (H) High (L) Low Latest Ref Rng 11/26/2024 Glucose 74 - 99 mg/dL 83 BUN 7 - 21 mg/dL 12 Creatinine 0.58 - 0.96 mg/dL 0.93 Sodium 136 - 144 mmol/L 135 (L) Potassium 3.7 - 5.1 mmol/L 4.7 Chloride 98 - 107 mmol/L 98 CO2 22 - 30 mmol/L 29 Anion Gap 8 - 15 mmol/L 8 Calcium 8.5 - 10.2 mg/dL 9.9 eGFR >=60 mL/min/1.73m 59 (L) Creatinine, Ur Random (UCRR) 42.2 - 237.9 mg/dL 49.7 Albumin, Urine Random mg/L 19.4 Albumin/Creat Ratio <30 mg/g 39 (H) Uric Acid 2.5 - 6.6 mg/dL 4.3 Legend: (L) Low (H) High ASSESSMENT/PLAN: 1. Essential hypertension, benign - ICD9: 401.1, ICD10: I10 (primary diagnosis) - Uncontrolled - Increase her losartan 50 mg to 100 mg daily. Instructed to take 2 of hr 50 mg tabs. Will reevaluate in 2 wks and will send update rx in at that time if BP at goal. Also instructed to discuss with her kidney drs appt this week and get his recommendations. - Recommend home blood pressure monitoring, to bring results to next visit - Encouraged sodium restriction, DASH or Mediterranean diet - Recommend regular aerobic exercise - Reviewed risks of hypertension and principles of treatment 2. Hypothyroidism, unspecified type - ICD9: 244.9, ICD10: E03.9 - Instructed patient on importance of taking on an empty stomach either first thing in the morning or at bedtime. - check TSH and T4/FTI today - continue current dose of Synthroid 0.075 mg - THYROID STIMULATING HORMONE - T4 FREE/FREE THYROXINE 3. Vitamin D deficiency - ICD9: 268.9, ICD10: E55.9 - VITAMIN D 25 HYDROXY 4. Screening for lipid disorders - ICD9: V77.91, ICD10: Z13.220 - LIPID PANEL BASIC Tanya Lozano APRN.COLLEGE ATHLETE documented in this encounter [facility] 12-03-2024 Note HNO ID: [id number] Author: TANYA LOZANO APRN.COLLEGE ATHLETE Service: ? Author Type: Nurse Practitioner Type: Progress Notes Filed: 12/03/2024 21:08 Note Text: This note was created using [employer]. Subjective Helen Lieberman is a 89 year old female here today concerned regarding her BP. She reports was at her GI last week and her BP was elevated at 209/89 and was advised to contact PCP. She is taking losartan 50 mg and coreg 12.5 mg twice daily. Denies missing doses. Reports she does not feel any different. She reports her BPs have been all over. Home BP Readings: 11/30 11am left arm 161/66, right arm 152/92 12/01 9:45am right arm 139/69, left arm 144/61, 2:45pm right arm 154/87 12/02 9am right arm 153/67, left arm 148/69, 5:30pm right arm 170/82, left arm 196/77 12/03 7:15am right arm 217/105, left arm 213/93 She does admit to being stressed over trying to settle her husbands estate. States she has had sinus pain and pressure x3 wks. States she has constant watery drainage from her nose. States constant sinus headache. She feels it is related to her sinuses and not her BP. She has an appt with her kidney doctor this week. She is seeing DR Gore. ALLERGIES Allergen Reactions Amlodipine Other: See Comments Very intense leg cramps Penicillins Unknown Sulfa (Sulfonamide * Unknown Tetracyclines Unknown Current Outpatient Medications Medication Sig Dispense Refill carvedilol (COREG) 12.5 mg tablet Take 1 tablet by mouth two times a day with meals. [address] (PROTONIX) 40 mg tablet Take 1 tablet by mouth once daily. 90 tablet 3 warfarin (COUMADIN) 3 mg tablet Take 1 tablet by mouth once daily. 90 tablet 3 losartan (COZAAR) 50 mg tablet Take 1 tablet by mouth once daily. 90 tablet 0 acetaminophen (TYLENOL) 500 mg tablet Take 2 tablets by mouth every 8 hours. magnesium oxide (MAG-OX) 400 mg (241.3 mg magnesium) tablet Take 1 tablet by mouth once daily. carvedilol (COREG) 6.25 mg tablet Take 1 tablet by mouth two times a day. levothyroxine (SYNTHROID) 75 mcg tablet TAKE 1 TABLET BY MOUTH IN THE MORNING ON AN EMPTY STOMACH 270 tablet 0 warfarin (COUMADIN) 2 mg tablet Take 1 tablet by mouth daily as directed. (Patient taking differently: Take 2 mg by mouth every Tuesday.) 90 tablet 1 polyethylene glycol 3350 (MIRALAX, GLYCOLAX) 17 gram packet Take 17 g by mouth once daily. Dissolve dose in 4 - 8 ounces of liquid and take as directed. Cholecalciferol, Vitamin D3, 50 mcg (2,000 unit) cap Take by mouth once daily. No current facility-administered medications for this visit. ACTIVE PROBLEM LIST Essential Hypertension, Benign Hypothyroidism Atrial Fibrillation (Hcc) Tia (Transient Ischemic Attack) Gerd (Gastroesophageal Reflux Disease) Vertigo Red Blood Cell Antibody Positive Chronic Diastolic Chf (Congestive Heart Failure) (Hcc) Hx-Tia (Transient Ischemic Attack) Hyponatremia Elevated Troponin Level Fall At Home, [place] Left Hip Pain Hematoma of Left Thigh Hamstring Injury, Left, Initial Encounter PAST MEDICAL HISTORY Diagnosis Date Atrial fibrillation (HCC) 07/29/2021 Essential hypertension Gallstone pancreatitis Pancreatitis PAST SURGICAL HISTORY Procedure Laterality Date SECTION HX x4 FOOT SURGERY HX right side HERNIA REPAIR HX KNEE SURGERY HX Right REMOVAL GALLBLADDER Social History Tobacco Use Smoking status: Never Smokeless tobacco: Never Vaping Use Vaping status: Never Used Substance Use Topics Alcohol use: Yes Comment: Rarely Drug use: Never Family History Problem Relation Age of Onset Stroke Mother other (tia) Sister Diabetes Sister Dementia Sister Lung Cancer Sister Stroke Sister Hypertension Sister Heart Brother Review of Systems Constitutional: Negative for chills, diaphoresis, fatigue and fever. HENT: Positive for congestion, postnasal drip, sinus pressure and sinus pain. Negative for ear pain and sore throat. Respiratory: Negative for cough and shortness of breath. Cardiovascular: Negative for chest pain, palpitations and leg swelling. Gastrointestinal: Negative for diarrhea, nausea and vomiting. Neurological: Positive for headaches. Negative for dizziness, syncope, speech difficulty, weakness, light-headedness and numbness. Psychiatric/Behavioral: Negative for dysphoric mood. The patient is not nervous/anxious. Objective 12/03/24 0758 12/03/24 0817 12/03/24 0839 12/03/24 0858 BP: 200/90 198/80 192/78 180/72 Pulse: 64 Resp: 16 Temp: 36.4 ?C (97.5 ?F) SpO2: 95% Weight: 55.3 kg (122 lb) Height: 157.5 cm (5' 2) Physical Exam Vitals and nursing note reviewed. Constitutional: General: She is not in acute distress. Appearance: She is not ill-appearing, toxic-appearing or diaphoretic. HENT: Head: Normocephalic and atraumatic. Cardiovascular: Rate and Rhythm: Normal rate and regular rhythm. Pulses: Normal pulses. Hea (more content not included)... [facility] 11-30-2024 Telephone encounter Note She needs to be seen sooner - unfortunately we do not have any openings today - please schedule her on Tuesday. If no openings at least a NV. Dee [facility] Work Phone: 11-30-2024 Miscellaneous Notes She needs to be seen sooner - unfortunately we do not have any openings today - please schedule her on Tuesday. If no openings at least a NV. Price Patient of Cn. Left message on vm stating she saw Dr. Casillas today and her blood pressure was 209/89. She was advised to contact CN office today . Please advise. Pt. Has apt. 01/03/2025 with CN. documented in this encounter [facility] 11-30-2024 Telephone encounter Note Patient of Cn. Left message on vm stating she saw Dr. Casillas today and her blood pressure was 209/89. She was advised to contact CN office today . Please advise. Pt. Has apt. 01/03/2025 with CN. [facility] 11-27-2024 Telephone encounter Note Patient informed. Charisse Lange MA [facility] 11-27-2024 Telephone encounter Note ----- Message from Tanya Lozano APRN.COLLEGE ATHLETE sent at 11/26/2024 12:49 PM EST ----- Inr in range. Recheck 4 wks [facility] 11-27-2024 Miscellaneous Notes Patient informed. Charisse Lange MA ----- Message from Tanya Lozano APRN.COLLEGE ATHLETE sent at 11/26/2024 12:49 PM EST ----- Inr in range. Recheck 4 wks documented in this encounter [facility] 11-26-2024 Telephone encounter Note patient requesting refills as follows: Last seen 10/04/24 by ABHAY . Last refill pantoprazole 03/06/24, warfarin 09/12/23 . Next office visit 01/03/25 with CN Requested Prescriptions Pending Prescriptions Disp Refills carvedilol (COREG) 12.5 mg tablet 180 tablet 1 Sig: Take 1 tablet by mouth two times a day with meals. pantoprazole DR (PROTONIX) 40 mg tablet 90 tablet 3 Sig: Take 1 tablet by mouth once daily. warfarin (COUMADIN) 3 mg tablet 90 tablet 3 Sig: Take 1 tablet by mouth once daily. Please review and advise. Charisse Lange MA [facility] 11-26-2024 Miscellaneous Notes patient requesting refills as follows: Last seen 10/04/24 by BQ . Last refill pantoprazole 03/06/24, warfarin 09/12/23 . Next office visit 01/03/25 with CN Requested Prescriptions Pending Prescriptions Disp Refills carvedilol (COREG) 12.5 mg tablet 180 tablet 1 Sig: Take 1 tablet by mouth two times a day with meals. pantoprazole DR (PROTONIX) 40 mg tablet 90 tablet 3 Sig: Take 1 tablet by mouth once daily. warfarin (COUMADIN) 3 mg tablet 90 tablet 3 Sig: Take 1 tablet by mouth once daily. Please review and advise. Charisse Lange MA documented in this encounter [facility] 11-05-2024 Telephone encounter Note Patient is informed Nicole Foreman MA [facility] 11-05-2024 Miscellaneous Notes Patient is informed Nicole Foreman MA ----- Message from Tanya Lozano APRN.COLLEGE ATHLETE sent at 11/05/2024 7:11 AM EST ----- Wnr Continue current dose recheck in one month documented in this encounter [facility] 11-05-2024 Telephone encounter Note ----- Message from Tanya Lozano APRN.COLLEGE ATHLETE sent at 11/05/2024 7:11 AM EST ----- Wnr Continue current dose recheck in one month [facility] 10-29-2024 Telephone encounter Note Order placed [facility] 10-29-2024 Miscellaneous Notes Order placed Office INR machine is unable to be used, patient has nurse visit INR scheduled for 11/01. Please place lab order for patient to complete check at the lab. Thanks! Charisse Lange MA documented in this encounter [facility] 10-29-2024 Telephone encounter Note Office INR machine is unable to be used, patient has nurse visit INR scheduled for 11/01. Please place lab order for patient to complete check at the lab. Thanks! Charisse Lange MA [facility] 10-09-2024 Telephone encounter Note Call placed to pt, she states that she had 4 sisters that had breast. Pt states that her sister was 91 years old last year when she was diagnosed. Pt states that she has been having these done regularly and would just like the peace of mind. Corrine Birmingham LPN [facility] 10-09-2024 Miscellaneous Notes Call placed to pt, she states that she had 4 sisters that had breast. Pt states that her sister was 91 years old last year when she was diagnosed. Pt states that she has been having these done regularly and would just like the peace of mind. Corrine Birmingham LPN Is there a reason she wants a mammogram. Mammogram is not recommended or needed Pt asking for mammogram order to be placed. Pt would like call once order is placed so she can schedule. Corrine Birmingham LPN documented in this encounter [facility] 10-09-2024 Telephone encounter Note Is there a reason she wants a mammogram. Mammogram is not recommended or needed [facility] 10-09-2024 Telephone encounter Note Pt asking for mammogram order to be placed. Pt would like call once order is placed so she can schedule. Corrine Birmingham LPN [facility] 10-09-2024 Telephone encounter Note Call placed to pt, advised of the below recommendation. Pt states that she currently takes 2 mg on Sundays and 3 mg all other days. Pt is scheduled for recheck on 11/01/2024 Corrine Birmingham LPN [facility] 10-09-2024 Miscellaneous Notes Call placed to pt, advised of the below recommendation. Pt states that she currently takes 2 mg on Sundays and 3 mg all other days. Pt is scheduled for recheck on 11/01/2024 Corrine Birmingham LPN ----- Message from Tanya Lozano APRN.[employer]LE[employer] ATHLETE sent at 10/07/2024 11:36 AM EST ----- Wnr. Continue current dose recheck one month documented in this encounter [facility] 10-09-2024 Telephone encounter Note ----- Message from Tanya Lozano APRN.COLLEGE ATHLETE sent at 10/07/2024 11:36 AM EST ----- Wnr. Continue current dose recheck one month [facility] 10-04-2024 Note HNO ID: [id number] Author: GENIA HUITRON APRN.RUBIO Service: ? Author Type: Nurse Practitioner Type: Progress Notes Filed: 10/08/2024 09:43 Note Text: CHIEF COMPLAINT: Helen Lieberman is a 88 year old female, patient of KEVAN Lozano, who presents for a hospital and rehab stay in July for a fall and hamstring injury. I reviewed past medical, surgical, social, and family histories today and updated chart. Allergies, chronic medications, and supplements were also reviewed. Hospital admission 08/09/2024-08/14/2024: HOSPITAL COURSE: Helen Lieberman is a 88 year old female presented with past medical history of HTN, HFpEF, AFIB (on Coumadin), hyponatremia, hx TIA, and GERD who presents with fall, left hip pain. CT scan of left him ruled out acute fracture. Patient does have ansley of hamstring tendon and hematoma. Ortho evaluated patient , did not recommend any surgery. Able to walk when I attempted to walk her and physical therapy confirmed this. She will need longterm facility. The hyponatremia is due to low solute intake and high water intake diet. Dr. Olmos added urea tablets to be taken when her sodium is under 130. Beta-doug dose was decreased as it was felt the carvedilol was also giving her propensity with the bradycardia for ADH release. Patient seen by nephrology and it is felt that her hyponatremia is a combination of increased water intake and she has a low solute diet. This was corrected medication adjustments were made and these will be followed by Dr. Gore. She will follow-up with Dr. Alvarez for orthopedics in 2 weeks for the hamstring tear she is weightbearing as tolerated. Warfarin was held and can be resumed at her normal maintenance dose with checking INR every 3 days until she is therapeutic. Would not increase the dosage from her baseline as a gradual increase in the INR makes her less likely to rebleed into the tendon. She is seen by physical Occupational Therapy a surgical repair was not felt to be appropriate. She will follow-up with Dr. Alvarez as an outpatient in 2 weeks for reevaluation. INTERVAL COURSE OF EVENTS: Patient has hyponatremia that is not SIADH it is decreased solute intake and too much free water she is on a 1500 cc fluid restriction and liberal salt intake no diuretics. Blood pressure has been labile with her pain and Dr. Gore has the blood pressure medications the way he wants them and any questions on the blood pressure medication changes should be referred to him as he will be following her for her BP. Coumadin 2 mg on Tuesday, remaining days are 3 mg daily 4 weeks since INR check Current HPI: Patient states she is feeling great since being home. She denies any persistent pain and states all the bruising has resolved. No further falls. She is back to all her normal activities. She needs a refill on the Losartan today. PAST MEDICAL HISTORY Diagnosis Date Atrial fibrillation (HCC) 07/29/2021 Essential hypertension Gallstone pancreatitis Pancreatitis PAST SURGICAL HISTORY Procedure Laterality Date SECTION HX x4 FOOT SURGERY HX right side HERNIA REPAIR HX KNEE SURGERY HX Right REMOVAL GALLBLADDER Social History Tobacco Use Smoking status: Never Smokeless tobacco: Never Vaping Use Vaping status: Never Used Substance Use Topics Alcohol use: Yes Comment: Rarely Drug use: Never ALLERGIES Allergen Reactions Amlodipine Other: See Comments Very intense leg cramps Penicillins Unknown Sulfa (Sulfonamide * Unknown Tetracyclines Unknown Family History Problem Relation Age of Onset Stroke Mother other (tia) Sister Diabetes Sister Dementia Sister Lung Cancer Sister Stroke Sister Hypertension Sister Heart Brother Current Outpatient Medications Medication Sig Dispense Refill losartan (COZAAR) 50 mg tablet Take 1 tablet by mouth once daily. 30 tablet 0 acetaminophen (TYLENOL) 500 mg tablet Take 2 tablets by mouth every 8 hours. magnesium oxide (MAG-OX) 400 mg (241.3 mg magnesium) tablet Take 1 tablet by mouth once daily. carvedilol (COREG) 6.25 mg tablet Take 1 tablet by mouth two times a day. pantoprazole DR (PROTONIX) 40 mg tablet Take 1 tablet by mouth once daily. 90 tablet 3 levothyroxine (SYNTHROID) 75 mcg tablet TAKE 1 TABLET BY MOUTH IN THE MORNING ON AN EMPTY STOMACH 270 tablet 0 warfarin (COUMADIN) 3 mg tablet take 1 tablet by mouth daily as directed (Patient taking differently: Take 3 mg by mouth once daily. Except Tuesday she takes 2 MG) 90 tablet 3 warfarin (COUMADIN) 2 mg tablet Take 1 tablet by mouth daily as directed. (Patient taking differently: Take 2 mg by mouth every Tuesday.) 90 tablet 1 polyethylene glycol 3350 (MIRALAX, GLYCOLAX) 17 gram packet Take 17 g by mouth once daily. Dissolve dose in 4 - 8 ounces of liquid and take as directed. Cholecalciferol, Vitamin D3, 50 mcg (2,000 unit) cap Take by mouth once daily. No current (more content not included)... [facility] 10-04-2024 History of Presen t illness Narrative CHIEF COMPLAINT: Helen Lieberman is a 88 year old female, patient of KEVAN Lozano, who presents for a hospital and rehab stay in July for a fall and hamstring injury. I reviewed past medical, surgical, social, and family histories today and updated chart. Allergies, chronic medications, and supplements were also reviewed. Hospital admission 08/09/2024-08/14/2024: HOSPITAL COURSE: Helen Lieberman is a 88 year old female presented with past medical history of HTN, HFpEF, AFIB (on Coumadin), hyponatremia, hx TIA, and GERD who presents with fall, left hip pain. CT scan of left him ruled out acute fracture. Patient does have ansley of hamstring tendon and hematoma. Ortho evaluated patient , did not recommend any surgery. Able to walk when I attempted to walk her and physical therapy confirmed this. She will need longterm facility. The hyponatremia is due to low solute intake and high water intake diet. Dr. Olmos added urea tablets to be taken when her sodium is under 130. Beta-doug dose was decreased as it was felt the carvedilol was also giving her propensity with the bradycardia for ADH release. Patient seen by nephrology and it is felt that her hyponatremia is a combination of increased water intake and she has a low solute diet. This was corrected medication adjustments were made and these will be followed by Dr. Gore. She will follow-up with Dr. Alvarez for orthopedics in 2 weeks for the hamstring tear she is weightbearing as tolerated. Warfarin was held and can be resumed at her normal maintenance dose with checking INR every 3 days until she is therapeutic. Would not increase the dosage from her baseline as a gradual increase in the INR makes her less likely to rebleed into the tendon. She is seen by physical Occupational Therapy a surgical repair was not felt to be appropriate. She will follow-up with Dr. Alvarez as an outpatient in 2 weeks for reevaluation. INTERVAL COURSE OF EVENTS: Patient has hyponatremia that is not SIADH it is decreased solute intake and too much free water she is on a 1500 cc fluid restriction and liberal salt intake no diuretics. Blood pressure has been labile with her pain and Dr. Gore has the blood pressure medications the way he wants them and any questions on the blood pressure medication changes should be referred to him as he will be following her for her BP. Coumadin 2 mg on Tuesday, remaining days are 3 mg daily 4 weeks since INR check Current HPI: Patient states she is feeling great since being home. She denies any persistent pain and states all the bruising has resolved. No further falls. She is back to all her normal activities. She needs a refill on the Losartan today. PAST MEDICAL HISTORY Diagnosis Date Atrial fibrillation (HCC) 07/29/2021 Essential hypertension Gallstone pancreatitis Pancreatitis PAST SURGICAL HISTORY Procedure Laterality Date SECTION HX x4 FOOT SURGERY HX right side HERNIA REPAIR HX KNEE SURGERY HX Right REMOVAL GALLBLADDER Social History Tobacco Use Smoking status: Never Smokeless tobacco: Never Vaping Use Vaping status: Never Used Substance Use Topics Alcohol use: Yes Comment: Rarely Drug use: Never ALLERGIES Allergen Reactions Amlodipine Other: See Comments Very intense leg cramps Penicillins Unknown Sulfa (Sulfonamide * Unknown Tetracyclines Unknown Family History Problem Relation Age of Onset Stroke Mother other (tia) Sister Diabetes Sister Dementia Sister Lung Cancer Sister Stroke Sister Hypertension Sister Heart Brother Current Outpatient Medications Medication Sig Dispense Refill losartan (COZAAR) 50 mg tablet Take 1 tablet by mouth once daily. 30 tablet 0 acetaminophen (TYLENOL) 500 mg tablet Take 2 tablets by mouth every 8 hours. magnesium oxide (MAG-OX) 400 mg (241.3 mg magnesium) tablet Take 1 tablet by mouth once daily. carvedilol (COREG) 6.25 mg tablet Take 1 tablet by mouth two times a day. pantoprazole DR (PROTONIX) 40 mg tablet Take 1 tablet by mouth once daily. 90 tablet 3 levothyroxine (SYNTHROID) 75 mcg tablet TAKE 1 TABLET BY MOUTH IN THE MORNING ON AN EMPTY STOMACH 270 tablet 0 warfarin (COUMADIN) 3 mg tablet take 1 tablet by mouth daily as directed (Patient taking differently: Take 3 mg by mouth once daily. Except Tuesday she takes 2 MG) 90 tablet 3 warfarin (COUMADIN) 2 mg tablet Take 1 tablet by mouth daily as directed. (Patient taking differently: Take 2 mg by mouth every Tuesday.) 90 tablet 1 polyethylene glycol 3350 (MIRALAX, GLYCOLAX) 17 gram packet Take 17 g by mouth once daily. Dissolve dose in 4 - 8 ounces of liquid and take as directed. Cholecalciferol, Vitamin D3, 50 mcg (2,000 unit) cap Take by mouth once daily. No current facility-administered medications for this visit. Review of Systems Constitutional: Negative for appetite change, chills, diaphoresis, fatigue, fever and unexpected weight change. Eyes: Negative for visual disturbance. Respiratory: Negative for cough, chest tightness, shortness of breath and wheezing. Cardiovascular: Negative. Gastrointestinal: Negative for abdominal pain, constipation, diarrhea, nausea and vomiting. Genitourinary: Negative. Musculoskeletal: Negative for arthralgias, gait problem and joint swelling. Skin: Negative. Neurological: Negative for dizziness, syncope, weakness, light-headedness, numbness and headaches. Hematological: Negative. Psychiatric/Behavioral: Negative. BP 162/60 Pulse 76 Temp 98 Ht 5' 2 (1.58m) Wt 119 lb (54.0kg) SpO2 98% BMI 21.76 kg/(m^2). Physical Exam Vitals and nursing note reviewed. Constitutional: Appearance: Normal appearance. HENT: Mouth/Throat: Mouth: Mucous membranes are moist. Eyes: Extraocular Movements: Extraocular movements intact. Pupils: Pupils are equal, round, and reactive to light. Cardiovascular: Rate and Rhythm: Normal rate and regular rhythm. Heart sounds: Normal heart sounds. Pulmonary: Breath sounds: Normal breath sounds. Abdominal: General: Bowel sounds are normal. There is no distension. Palpations: Abdomen is soft. Tenderness: There is no abdominal tenderness. Musculoskeletal: Cervical back: Normal range of motion and neck supple. Skin: General: Skin is warm and dry. Neurological: General: No focal deficit present. Mental Status: She is alert and oriented to person, place, and time. Motor: No weakness. Gait: Gait normal. Psychiatric: Mood and Affect: Mood normal. Behavior: Behavior normal. No visits with results within 1 Day(s) from this visit. Latest known visit with results is: Admission on 08/09/2024, Discharged on 08/14/2024 Component Date Value Ref Range Status Protein, Total 08/09/2024 7.2 6.3 - 8.0 g/dL Final Albumin 08/09/2024 4.2 3.9 - 4.9 g/dL Final Calcium, Total 08/09/2024 9.5 8.5 - 10.2 mg/dL Final Bilirubin, Total 08/09/2024 0.7 0.2 - 1.3 mg/dL Final Alkaline Phosphatase 08/09/2024 68 34 - 123 U/L Final AST 08/09/2024 22 13 - 35 U/L Final ALT 08/09/2024 14 7 - 38 U/L Final Glucose 08/09/2024 119 (H) 74 - 99 mg/dL Final The [place] [employer] (ADA) provides guidance for cutoff values for fasting glucose and random glucose. The ADA defines fasting as no caloric intake for at least 8 hours. Fasting plasma glucose results between 100 to 125 mg/dL indicate increased risk for diabetes (prediabetes). Fasting plasma glucose results greater than or equal to 126 mg/dL meet the criteria for diagnosis of diabetes. In the absence of unequivocal hyperglycemia, results should be confirmed by repeat testing. In a patient with classic symptoms of hyperglycemia or hyperglycemic crisis, random plasma glucose results greater than or equal to 200 mg/dL meet the criteria for diagnosis of diabetes. Reference: Standards of Medical Care in Diabetes 2016, [place] [employer]. Diabetes Care. 2016.39(Suppl 1). BUN 08/09/2024 14 7 - 21 mg/dL Final Creatinine 08/09/2024 0.84 0.58 - 0.96 mg/dL Final Sodium 08/09/2024 129 (L) 136 - 144 mmol/L Final Potassium 08/09/2024 5.0 3.7 - 5.1 mmol/L Final Chloride 08/09/2024 92 (L) 98 - 107 mmol/L Final CO2 08/09/2024 28 22 - 30 mmol/L Final Anion Gap 08/09/2024 9 8 - 15 mmol/L Final Estimated Glomerular Filtration Ra* 08/09/2024 67 >=60 mL/min/1.73m Final Estimated Glomerular Filtration Rate (eGFR) is calculated using the 2020 CKD-EPI creatinine equation. This equation utilizes serum creatinine, sex, and age as parameters. The creatinine assay has traceable calibration to isotope dilution-mass spectrometry. Refer to KDIGO guidelines for clinical interpretation. In patients with unstable renal function, e.g. those with acute kidney injury, the eGFR may not accurately reflect actual GFR. Magnesium 08/09/2024 1.9 1.7 - 2.3 mg/dL Final WBC 08/09/2024 6.74 3.70 - 11.00 k/uL Final RBC 08/09/2024 4.01 3.90 - 5.20 m/uL Final Hemoglobin 08/09/2024 13.0 11.5 - 15.5 g/dL Final Hematocrit 08/09/2024 38.5 36.0 - 46.0 % Final MCV 08/09/2024 96.0 80.0 - 100.0 fL Final MCH 08/09/2024 32.4 26.0 - 34.0 pg Final MCHC 08/09/2024 33.8 30.5 - 36.0 g/dL Final RDW-CV 08/09/2024 12.4 11.5 - 15.0 % Final Platelet Count 08/09/2024 302 150 - 400 k/uL Final MPV 08/09/2024 8.7 (L) 9.0 - 12.7 fL Final Neutrophils % 08/09/2024 62.0 % Final Abs Neut 08/09/2024 4.18 1.45 - 7.50 k/uL Final Lymphocytes % 08/09/2024 25.7 % Final Abs Lymph 08/09/2024 1.73 1.00 - 4.00 k/uL Final Monocytes % 08/09/2024 9.5 % Final Abs [place] 08/09/2024 0.64 <0.87 k/uL Final Eosinophils % 08/09/2024 1.9 % Final Abs Eosin 08/09/2024 0.13 <0.46 k/uL Final Basophils % 08/09/2024 0.6 % Final Abs Baso 08/09/2024 0.04 <0.11 k/uL Final Immature Granulocytes % 08/09/2024 0.3 % Final Abs Immature Gran 08/09/2024 <0.03 <0.10 k/uL Final NRBC 08/09/2024 0.0 /100 WBC Final Absolute nRBC 08/09/2024 <0.01 <0.01 k/uL Final Diff Type 08/09/2024 Auto Final PT Sec 08/09/2024 28.9 (H) 9.7 - 13.0 sec Final INR 08/09/2024 3.0 (H) 0.9 - 1.3 Final Vitamin K Antagonist (VKA) Therapeutic Range: INR 2 to 3 (Target INR of 2.5) Note: For patients treated with VKA drugs, such as warfarin, the [place] [employer] 2012 Guideline recommends a therapeutic INR range of 2 to 3 (target INR of 2.5). This recommendation includes high-risk patients with antiphospholipid syndrome with previous arterial or venous thromboembolism, current-generation mechanical or bioprosthetic aortic heart valve replacement. Note: Patients with mechanical aortic valve replacement and additional risk factors for thromboembolic events (atrial fibrillation, previous thromboembolism, LV dysfunction, hypercoagulable conditions) or an older generation mechanical AVR (i.e., ball in-Cage) or any mechanical MVR should have a INR therapeutic range of 2.5 to 3.5 (target INR of 3). Kvng CARMONA, et al. Chest 2012, 141:7S-47S Jayce ALVARADO et al. [facility] 2017, 70: 252-289 APTT 08/09/2024 41.5 (H) 23.0 - 32.4 sec Final Color 08/09/2024 Yellow Yellow Final Clarity 08/09/2024 Clear Clear Final Glucose, Urine 08/09/2024 Negative Negative Final Bilirubin, Urine 08/09/2024 Negative Negative Final Ketones, Urine 08/09/2024 Negative Negative Final Specific [place], Ur 08/09/2024 1.010 1.005 - 1.030 Final Hemoglobin/Blood,Ur 08/09/2024 Trace (A) Negative Final pH, Urine 08/09/2024 7.5 5.0 - 8.0 Final Protein, Urine 08/09/2024 Negative Negative Final Urobilinogen 08/09/2024 0.2 EU/dL 0.2-1.0 EU/dL Final Nitrites 08/09/2024 Negative Negative Final Leuk Esterase 08/09/2024 Negative Negative Final WBC, Urine 08/09/2024 0-5 /HPF 0-5 /HPF Final RBC, Urine 08/09/2024 0-3 /HPF 0-3 /HPF Final Bacteria 08/09/2024 None Seen None Seen /HPF Final Squamous Epithelial Cells 08/09/2024 Few /HPF Final Ventricular Rate 08/09/2024 67 BPM Final Atrial Rate 08/09/2024 67 BPM Final P-R Interval 08/09/2024 212 ms Final QRS Duration 08/09/2024 80 ms Final QT Interval 08/09/2024 406 ms Final QTC Calculation (Bazett) 08/09/2024 429 ms Final Calculated P Mayer 08/09/2024 106 degrees Final Calculated R Mayer 08/09/2024 37 degrees Final Calculated T Mayer 08/09/2024 45 degrees Final VICTORINA High Sensitivity 08/09/2024 18 (H) <12 ng/L Final NT Pro BNP 08/09/2024 815 (H) <450 pg/mL Final Ventricular Rate 08/09/2024 67 BPM Preliminary Atrial Rate 08/09/2024 67 BPM Preliminary P-R Interval 08/09/2024 212 ms Preliminary QRS Duration 08/09/2024 80 ms Preliminary QT Interval 08/09/2024 406 ms Preliminary QTC Calculation (Bazett) 08/09/2024 429 ms Preliminary Calculated P Mayer 08/09/2024 106 degrees Preliminary Calculated R Mayer 08/09/2024 37 degrees Preliminary Calculated T Mayer 08/09/2024 45 degrees Preliminary VICTORINA High Sensitivity 08/09/2024 17 (H) <12 ng/L Final VICTORINA High Sensitivity 08/09/2024 17 (H) <12 ng/L Final Sodium, Urine Random 08/11/2024 84 14 - 216 mmol/L Final Osmolality, Urine 08/11/2024 408 50 - 1,200 mOsm/kg Final Uric Acid 08/09/2024 2.8 2.5 - 6.6 mg/dL Final WBC 08/10/2024 7.71 3.70 - 11.00 k/uL Final RBC 08/10/2024 3.56 (L) 3.90 - 5.20 m/uL Final Hemoglobin 08/10/2024 11.6 11.5 - 15.5 g/dL Final Hematocrit 08/10/2024 34.4 (L) 36.0 - 46.0 % Final MCV 08/10/2024 96.6 80.0 - 100.0 fL Final MCH 08/10/2024 32.6 26.0 - 34.0 pg Final MCHC 08/10/2024 33.7 30.5 - 36.0 g/dL Final RDW-CV 08/10/2024 12.3 11.5 - 15.0 % Final Platelet Count 08/10/2024 277 150 - 400 k/uL Final MPV 08/10/2024 9.1 9.0 - 12.7 fL Final Absolute nRBC 08/10/2024 <0.01 <0.01 k/uL Final Glucose 08/10/2024 114 (H) 74 - 99 mg/dL Final The [place] Diabetes [employer] (ADA) provides guidance for cutoff values for fasting glucose and random glucose. The ADA defines fasting as no caloric intake for at least 8 hours. Fasting plasma glucose results between 100 to 125 mg/dL indicate increased risk for diabetes (prediabetes). Fasting plasma glucose results greater than or equal to 126 mg/dL meet the criteria for diagnosis of diabetes. In the absence of unequivocal hyperglycemia, results should be confirmed by repeat testing. In a patient with classic symptoms of hyperglycemia or hyperglycemic crisis, random plasma glucose results greater than or equal to 200 mg/dL meet the criteria for diagnosis of diabetes. Reference: Standards of Medical Care in Diabetes 2016, [place] [employer]. Diabetes Care. 2016.39(Suppl 1). BUN 08/10/2024 12 7 - 21 mg/dL Final Creatinine 08/10/2024 0.75 0.58 - 0.96 mg/dL Final Sodium 08/10/2024 131 (L) 136 - 144 mmol/L Final Potassium 08/10/2024 4.4 3.7 - 5.1 mmol/L Final Chloride 08/10/2024 97 (L) 98 - 107 mmol/L Final CO2 08/10/2024 26 22 - 30 mmol/L Final Anion Gap 08/10/2024 8 8 - 15 mmol/L Final Calcium, Total 08/10/2024 9.0 8.5 - 10.2 mg/dL Final Estimated Glomerular Filtration Ra* 08/10/2024 77 >=60 mL/min/1.73m Final Estimated Glomerular Filtration Rate (eGFR) is calculated using the 2020 CKD-EPI creatinine equation. This equation utilizes serum creatinine, sex, and age as parameters. The creatinine assay has traceable calibration to isotope dilution-mass spectrometry. Refer to KDIGO guidelines for clinical interpretation. In patients with unstable renal function, e.g. those with acute kidney injury, the eGFR may not accurately reflect actual GFR. Magnesium 08/10/2024 1.8 1.7 - 2.3 mg/dL Final PT Sec 08/10/2024 19.9 (H) 9.7 - 13.0 sec Final INR 08/10/2024 2.0 (H) 0.9 - 1.3 Final Vitamin K Antagonist (VKA) Therapeutic Range: INR 2 to 3 (Target INR of 2.5) Note: For patients treated with VKA drugs, such as warfarin, the [place] [employer] 2012 Guideline recommends a therapeutic INR range of 2 to 3 (target INR of 2.5). This recommendation includes high-risk patients with antiphospholipid syndrome with previous arterial or venous thromboembolism, current-generation mechanical or bioprosthetic aortic heart valve replacement. Note: Patients with mechanical aortic valve replacement and additional risk factors for thromboembolic events (atrial fibrillation, previous thromboembolism, LV dysfunction, hypercoagulable conditions) or an older generation mechanical AVR (i.e., ball in-Cage) or any mechanical MVR should have a INR therapeutic range of 2.5 to 3.5 (target INR of 3). Kvng GH, et al. Chest 2012, 141:7S-47S Jayce RA, et al. J[facility] 2017, 70: 252-289 APTT 08/10/2024 35.3 (H) 23.0 - 32.4 sec Final WBC 08/11/2024 7.91 3.70 - 11.00 k/uL Final RBC 08/11/2024 3.48 (L) 3.90 - 5.20 m/uL Final Hemoglobin 08/11/2024 11.4 (L) 11.5 - 15.5 g/dL Final Hematocrit 08/11/2024 33.5 (L) 36.0 - 46.0 % Final MCV 08/11/2024 96.3 80.0 - 100.0 fL Final MCH 08/11/2024 32.8 26.0 - 34.0 pg Final MCHC 08/11/2024 34.0 30.5 - 36.0 g/dL Final RDW-CV 08/11/2024 12.4 11.5 - 15.0 % Final Platelet Count 08/11/2024 280 150 - 400 k/uL Final MPV 08/11/2024 9.4 9.0 - 12.7 fL Final Absolute nRBC 08/11/2024 <0.01 <0.01 k/uL Final Glucose 08/11/2024 110 (H) 74 - 99 mg/dL Final The [place] [employer] (ADA) provides guidance for cutoff values for fasting glucose and random glucose. The ADA defines fasting as no caloric intake for at least 8 hours. Fasting plasma glucose results between 100 to 125 mg/dL indicate increased risk for diabetes (prediabetes). Fasting plasma glucose results greater than or equal to 126 mg/dL meet the criteria for diagnosis of diabetes. In the absence of unequivocal hyperglycemia, results should be confirmed by repeat testing. In a patient with classic symptoms of hyperglycemia or hyperglycemic crisis, random plasma glucose results greater than or equal to 200 mg/dL meet the criteria for diagnosis of diabetes. Reference: Standards of Medical Care in Diabetes 2016, [place] [employer]. Diabetes Care. 2016.39(Suppl 1). BUN 08/11/2024 13 7 - 21 mg/dL Final Creatinine 08/11/2024 0.81 0.58 - 0.96 mg/dL Final Sodium 08/11/2024 127 (L) 136 - 144 mmol/L Final Potassium 08/11/2024 4.6 3.7 - 5.1 mmol/L Final Chloride 08/11/2024 90 (L) 98 - 107 mmol/L Final CO2 08/11/2024 28 22 - 30 mmol/L Final Anion Gap 08/11/2024 9 8 - 15 mmol/L Final Calcium, Total 08/11/2024 9.4 8.5 - 10.2 mg/dL Final Estimated Glomerular Filtration Ra* 08/11/2024 70 >=60 mL/min/1.73m Final Estimated Glomerular Filtration Rate (eGFR) is calculated using the 2020 CKD-EPI creatinine equation. This equation utilizes serum creatinine, sex, and age as parameters. The creatinine assay has traceable calibration to isotope dilution-mass spectrometry. Refer to KDIGO guidelines for clinical interpretation. In patients with unstable renal function, e.g. those with acute kidney injury, the eGFR may not accurately reflect actual GFR. Magnesium 08/11/2024 1.8 1.7 - 2.3 mg/dL Final Osmolality 08/10/2024 276 275 - 300 mOsm/kg Final WBC 08/12/2024 7.57 3.70 - 11.00 k/uL Final RBC 08/12/2024 3.40 (L) 3.90 - 5.20 m/uL Final Hemoglobin 08/12/2024 11.1 (L) 11.5 - 15.5 g/dL Final Hematocrit 08/12/2024 32.3 (L) 36.0 - 46.0 % Final MCV 08/12/2024 95.0 80.0 - 100.0 fL Final MCH 08/12/2024 32.6 26.0 - 34.0 pg Final MCHC 08/12/2024 34.4 30.5 - 36.0 g/dL Final RDW-CV 08/12/2024 12.2 11.5 - 15.0 % Final Platelet Count 08/12/2024 274 150 - 400 k/uL Final MPV 08/12/2024 9.1 9.0 - 12.7 fL Final Absolute nRBC 08/12/2024 <0.01 <0.01 k/uL Final Glucose 08/12/2024 153 (H) 74 - 99 mg/dL Final The [place] [employer] (ADA) provides guidance for cutoff values for fasting glucose and random glucose. The ADA defines fasting as no caloric intake for at least 8 hours. Fasting plasma glucose results between 100 to 125 mg/dL indicate increased risk for diabetes (prediabetes). Fasting plasma glucose results greater than or equal to 126 mg/dL meet the criteria for diagnosis of diabetes. In the absence of unequivocal hyperglycemia, results should be confirmed by repeat testing. In a patient with classic symptoms of hyperglycemia or hyperglycemic crisis, random plasma glucose results greater than or equal to 200 mg/dL meet the criteria for diagnosis of diabetes. Reference: Standards of Medical Care in Diabetes 2016, [place] [employer]. Diabetes Care. 2016.39(Suppl 1). BUN 08/12/2024 13 7 - 21 mg/dL Final Creatinine 08/12/2024 0.86 0.58 - 0.96 mg/dL Final Sodium 08/12/2024 123 (L) 136 - 144 mmol/L Final Potassium 08/12/2024 4.1 3.7 - 5.1 mmol/L Final Chloride 08/12/2024 86 (L) 98 - 107 mmol/L Final CO2 08/12/2024 29 22 - 30 mmol/L Final Anion Gap 08/12/2024 8 8 - 15 mmol/L Final Calcium, Total 08/12/2024 9.2 8.5 - 10.2 mg/dL Final Estimated Glomerular Filtration Ra* 08/12/2024 65 >=60 mL/min/1.73m Final Estimated Glomerular Filtration Rate (eGFR) is calculated using the 2020 CKD-EPI creatinine equation. This equation utilizes serum creatinine, sex, and age as parameters. The creatinine assay has traceable calibration to isotope dilution-mass spectrometry. Refer to KDIGO guidelines for clinical interpretation. In patients with unstable renal function, e.g. those with acute kidney injury, the eGFR may not accurately reflect actual GFR. Magnesium 08/12/2024 1.7 1.7 - 2.3 mg/dL Final Albumin 08/13/2024 3.8 (L) 3.9 - 4.9 g/dL Final Calcium, Total 08/13/2024 9.6 8.5 - 10.2 mg/dL Final Phosphorus 08/13/2024 3.6 2.7 - 4.8 mg/dL Final Glucose 08/13/2024 114 (H) 74 - 99 mg/dL Final The [place] [employer] (ADA) provides guidance for cutoff values for fasting glucose and random glucose. The ADA defines fasting as no caloric intake for at least 8 hours. Fasting plasma glucose results between 100 to 125 mg/dL indicate increased risk for diabetes (prediabetes). Fasting plasma glucose results greater than or equal to 126 mg/dL meet the criteria for diagnosis of diabetes. In the absence of unequivocal hyperglycemia, results should be confirmed by repeat testing. In a patient with classic symptoms of hyperglycemia or hyperglycemic crisis, random plasma glucose results greater than or equal to 200 mg/dL meet the criteria for diagnosis of diabetes. Reference: Standards of Medical Care in Diabetes 2016, [place] [employer]. Diabetes Care. 2016.39(Suppl 1). BUN 08/13/2024 39 (H) 7 - 21 mg/dL Final Creatinine 08/13/2024 0.93 0.58 - 0.96 mg/dL Final Sodium 08/13/2024 129 (L) 136 - 144 mmol/L Final Potassium 08/13/2024 4.3 3.7 - 5.1 mmol/L Final Chloride 08/13/2024 93 (L) 98 - 107 mmol/L Final CO2 08/13/2024 29 22 - 30 mmol/L Final Anion Gap 08/13/2024 7 (L) 8 - 15 mmol/L Final Estimated Glomerular Filtration Ra* 08/13/2024 60 >=60 mL/min/1.73m Final Estimated Glomerular Filtration Rate (eGFR) is calculated using the 2020 CKD-EPI creatinine equation. This equation utilizes serum creatinine, sex, and age as parameters. The creatinine assay has traceable calibration to isotope dilution-mass spectrometry. Refer to KDIGO guidelines for clinical interpretation. In patients with unstable renal function, e.g. those with acute kidney injury, the eGFR may not accurately reflect actual GFR. Glucose 08/14/2024 109 (H) 74 - 99 mg/dL Final The [place] [employer] (ADA) provides guidance for cutoff values for fasting glucose and random glucose. The ADA defines fasting as no caloric intake for at least 8 hours. Fasting plasma glucose results between 100 to 125 mg/dL indicate increased risk for diabetes (prediabetes). Fasting plasma glucose results greater than or equal to 126 mg/dL meet the criteria for diagnosis of diabetes. In the absence of unequivocal hyperglycemia, results should be confirmed by repeat testing. In a patient with classic symptoms of hyperglycemia or hyperglycemic crisis, random plasma glucose results greater than or equal to 200 mg/dL meet the criteria for diagnosis of diabetes. Reference: Standards of Medical Care in Diabetes 2016, [place] [employer]. Diabetes Care. 2016.39(Suppl 1). BUN 08/14/2024 29 (H) 7 - 21 mg/dL Final Creatinine 08/14/2024 0.87 0.58 - 0.96 mg/dL Final Sodium 08/14/2024 136 136 - 144 mmol/L Final Potassium 08/14/2024 4.6 3.7 - 5.1 mmol/L Final Chloride 08/14/2024 99 98 - 107 mmol/L Final CO2 08/14/2024 28 22 - 30 mmol/L Final Anion Gap 08/14/2024 9 8 - 15 mmol/L Final Calcium, Total 08/14/2024 9.5 8.5 - 10.2 mg/dL Final Estimated Glomerular Filtration Ra* 08/14/2024 65 >=60 mL/min/1.73m Final Estimated Glomerular Filtration Rate (eGFR) is calculated using the 2020 CKD-EPI creatinine equation. This equation utilizes serum creatinine, sex, and age as parameters. The creatinine assay has traceable calibration to isotope dilution-mass spectrometry. Refer to KDIGO guidelines for clinical interpretation. In patients with unstable renal function, e.g. those with acute kidney injury, the eGFR may not accurately reflect actual GFR. ASSESSMENT/PLAN: 1. Essential hypertension, benign - ICD9: 401.1, ICD10: I10 (primary diagnosis) - Improving control - Continue current medications- Losartan 50 mg daily - Continue care with Dr. Streeter - Recommend home blood pressure monitoring, to bring results to next visit - Encouraged sodium restriction, DASH or Mediterranean diet - Follow up in 3 months or sooner if needed for hypertension visit - LOSARTAN 50 MG TABLET 2. Fall at home, sequela - ICD9: 909.4, E929.3, ICD10: W19.XXXS, Y92.009 3. Hamstring injury, left, initial encounter - ICD9: 959.6, ICD10: S76.302A - Improved 4. Hyponatremia - ICD9: 276.1, ICD10: E87.1 - COMPREHENSIVE METABOLIC PANEL 5. Atrial fibrillation, unspecified type (HCC) - ICD9: 427.31, ICD10: I48.91 - INR in office today was 2.1. Continue Coumadin 2 mg on Tuesday, remaining days are 3 mg daily - COMPLETE BLOOD COUNT AND DIFFERENTIAL - PROTHROMBIN TIME - INR (POC) New medication(s) prescribed today: None. Counseling completed in adopting health behaviors such as avoiding excessive alcohol use, avoid tobacco use, improve nutrition, and engage in physical activities. Copy of written care plan, clinical summary, treatment plan, new medications, goals, and self management requirements were given to patient. Genia Huitron APRN.CNP documented in this encounter [facility] 10-01-2024 Note HNO ID: [id number] Author: VERA ALBERT RN Service: ? Author Type: Registered Nurse Type: Progress Notes Filed: 10/01/2024 11:53 Note Text: AG TRANSITIONAL CARE MANAGEMENT (TCM) FOLLOW-UP NOTE Patient identified by name and date of : YES Spoke to: patient Diagnosis: N/A Summary: TCM RN called pt for TCM f/u (SNF D/C 08/29/24). Pt states that everything is going well. She is aware of her appointment at her PCP's office on 10/04/24 at 3:20p. Pt plans to discuss Losartan at this appointment. Denies needs today. Health leads screening tool questions performed? Addressed 08/30/24 N/A Concerns: N/A Cotton Stripper plan for next outreach: No further follow-up needed at this time. Signature: Vera Albert RN October 01, 2024 [facility] 10-01-2024 History of Presen t illness Narrative AG TRANSITIONAL CARE MANAGEMENT (TCM) FOLLOW-UP NOTE Patient identified by name and date of : YES Spoke to: patient Diagnosis: N/A Summary: TCM RN called pt for TCM f/u (SNF D/C 08/29/24). Pt states that everything is going well. She is aware of her appointment at her PCP's office on 10/04/24 at 3:20p. Pt plans to discuss Losartan at this appointment. Denies needs today. Health leads screening tool questions performed? Addressed 08/30/24 N/A Concerns: N/A Cotton Stripper plan for next outreach: No further follow-up needed at this time. Signature: Vera Albert RN October 01, 2024 documented in this encounter [facility] 10-01-2024 Note Patient Outreach (AG ACM) HELEN LIEBERMAN ([id number]) 1935 F Date Time Provider Department 10/01/24 VERA ALBERT [facility] During your visit today, we recorded the following information about you: Vera Albert RN 10/01/2024 11:53 AM Signed AG TRANSITIONAL CARE MANAGEMENT (TCM) FOLLOW-UP NOTE Patient identified by name and date of : YES Spoke to: patient Diagnosis: N/A Summary: TCM RN called pt for TCM f/u (SNF D/C 08/29/24). Pt states that everything is going well. She is aware of her appointment at her PCP's office on 10/04/24 at 3:20p. Pt plans to discuss Losartan at this appointment. Denies needs today. Health leads screening tool questions performed? Addressed 08/30/24 N/A Concerns: N/A Cotton Stripper plan for next outreach: No further follow-up needed at this time. Signature: Vera Albert RN October 01, 2024 Allergies As of Date: 10/01/2024 Noted Allergy Reaction AMLODIPINE 08/11/2024 14 - Other: See Comments Comments: Very intense leg cramps PENICILLINS 07/24/2021 16 - Unknown SULFA (SULFONAMIDE ANTIBIOTICS) 07/24/2021 16 - Unknown TETRACYCLINES 07/24/2021 16 - Unknown Date Reviewed: 08/14/2024 Reviewed by: Diana West, TASNEEM - Fully Assessed Reason for Visit: Transition Of Care [4074] Cmt: TCM f/u Prescriptions as of 10/01/2024 - losartan (COZAAR) 50 mg tablet Take 1 tablet by mouth once daily. - acetaminophen (TYLENOL) 500 mg tablet Take 2 tablets by mouth every 8 hours. - magnesium oxide (MAG-OX) 400 mg (241.3 mg magnesium) tablet Take 1 tablet by mouth once daily. - carvedilol (COREG) 6.25 mg tablet Take 1 tablet by mouth two times a day. - pantoprazole DR (PROTONIX) 40 mg tablet Take 1 tablet by mouth once daily. - levothyroxine (SYNTHROID) 75 mcg tablet TAKE 1 TABLET BY MOUTH IN THE MORNING ON AN EMPTY STOMACH - warfarin (COUMADIN) 3 mg tablet take 1 tablet by mouth daily as directed - warfarin (COUMADIN) 2 mg tablet Take 1 tablet by mouth daily as directed. - polyethylene glycol 3350 (MIRALAX, GLYCOLAX) 17 gram packet Take 17 g by mouth once daily. Dissolve dose in 4 - 8 ounces of liquid and take as directed. - Cholecalciferol, Vitamin D3, 50 mcg (2,000 unit) cap Take by mouth once daily. Problem List As Of Date 10/01/2024 Noted Resolved Essential hypertension, benign [I10] 03/20/2015 Hypothyroidism [E03.9] 03/20/2015 Atrial fibrillation (HCC) [I48.91] 07/29/2021 TIA (transient ischemic attack) [G45.9] 08/09/2021 GERD (gastroesophageal reflux disease) [K21.9] 08/09/2021 Vertigo [R42] 08/09/2021 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] 08/25/2021 Syncope [R55] 09/07/2023 09/08/2023 Syncope and collapse [R55] 09/07/2023 09/08/2023 Chronic diastolic CHF (congestive heart failure*09/08/2023 Hx-TIA (transient ischemic attack) [Z86.73] 08/09/2024 Hyponatremia [E87.1] 08/09/2024 Elevated troponin level [R79.89] 08/09/2024 Fall at home, sequela [W19.XXXS, Y92.009] 08/09/2024 Left hip pain [M25.552] 08/09/2024 Hematoma of left thigh [S70.12XA] 08/09/2024 Hamstring injury, left, initial encounter [S76.*08/10/2024 Encounter Status:Closed by VERA ALBERT on 10/01/24 [facility] 09-24-2024 Note HNO ID: [id number] Author: VERA ALBERT, RN Service: ? Author Type: Registered Nurse Type: Progress Notes Filed: 09/24/2024 13:51 Note Text: AG TRANSITIONAL CARE MANAGEMENT (TCM) FOLLOW-UP NOTE Patient identified by name and date of : YES Spoke to: patient Diagnosis: N/A Summary: TCM RN called for TCM f/u (SNF D/C 08/29/24). Pt states that she is doing fine. She feels that she is back to normal and doing great. No falls. No pain. No nothing. She is aware of her appointment at her PCP's office on 10/04/23 at 3:20p. Pt starts that she will need a refill on her Losartan in a wk and a 1/2. A 30 day supply was ordered on 09/05/24. She will talk to her PCP about this med at her appointment. Denies any needs at this time. Health leads screening tool questions performed? Addressed 08/30/24 N/A Concerns: N/A Cotton Stripper plan for next outreach: Will follow-up next wk. Signature: Vera Albert RN September 24, 2024 [facility] 09-24-2024 Note Patient Outreach (AG ACM) HELEN LIEBERMAN ([id number]) 1935 F Date Time Provider Department 09/24/24 VERA ALBERT [facility] During your visit today, we recorded the following information about you: Vera Albert RN 09/24/2024 1:51 PM Signed AG TRANSITIONAL CARE MANAGEMENT (TCM) FOLLOW-UP NOTE Patient identified by name and date of : YES Spoke to: patient Diagnosis: N/A Summary: TCM RN called for TCM f/u (SNF D/C 08/29/24). Pt states that she is doing fine. She feels that she is back to normal and doing great. No falls. No pain. No nothing. She is aware of her appointment at her PCP's office on 10/04/23 at 3:20p. Pt starts that she will need a refill on her Losartan in a wk and a /2. A 30 day supply was ordered on 09/05/24. She will talk to her PCP about this med at her appointment. Denies any needs at this time. Health leads screening tool questions performed? Addressed 08/30/24 N/A Concerns: N/A Cotton Stripper plan for next outreach: Will follow-up next wk. Signature: Vera Albert RN September 24, 2024 Allergies As of Date: 09/24/2024 Noted Allergy Reaction AMLODIPINE 08/11/2024 14 - Other: See Comments Comments: Very intense leg cramps PENICILLINS 07/24/2021 16 - Unknown SULFA (SULFONAMIDE ANTIBIOTICS) 07/24/2021 16 - Unknown TETRACYCLINES 07/24/2021 16 - Unknown Date Reviewed: 08/14/2024 Reviewed by: Diana West RN - Fully Assessed Reason for Visit: Transition Of Care [5944] Cmt: TCM f/u Prescriptions as of 09/24/2024 - losartan (COZAAR) 50 mg tablet Take 1 tablet by mouth once daily. - acetaminophen (TYLENOL) 500 mg tablet Take 2 tablets by mouth every 8 hours. - magnesium oxide (MAG-OX) 400 mg (241.3 mg magnesium) tablet Take 1 tablet by mouth once daily. - carvedilol (COREG) 6.25 mg tablet Take 1 tablet by mouth two times a day. - pantoprazole DR (PROTONIX) 40 mg tablet Take 1 tablet by mouth once daily. - levothyroxine (SYNTHROID) 75 mcg tablet TAKE 1 TABLET BY MOUTH IN THE MORNING ON AN EMPTY STOMACH - warfarin (COUMADIN) 3 mg tablet take 1 tablet by mouth daily as directed - warfarin (COUMADIN) 2 mg tablet Take 1 tablet by mouth daily as directed. - polyethylene glycol 3350 (MIRALAX, GLYCOLAX) 17 gram packet Take 17 g by mouth once daily. Dissolve dose in 4 - 8 ounces of liquid and take as directed. - Cholecalciferol, Vitamin D3, 50 mcg (2,000 unit) cap Take by mouth once daily. Problem List As Of Date 09/24/2024 Noted Resolved Essential hypertension, benign [I10] 03/20/2015 Hypothyroidism [E03.9] 03/20/2015 Atrial fibrillation (HCC) [I48.91] 07/29/2021 TIA (transient ischemic attack) [G45.9] 08/09/2021 GERD (gastroesophageal reflux disease) [K21.9] 08/09/2021 Vertigo [R42] 08/09/2021 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] 08/25/2021 Syncope [R55] 09/07/2023 09/08/2023 Syncope and collapse [R55] 09/07/2023 09/08/2023 Chronic diastolic CHF (congestive heart failure*09/08/2023 Hx-TIA (transient ischemic attack) [Z86.73] 08/09/2024 Hyponatremia [E87.1] 08/09/2024 Elevated troponin level [R79.89] 08/09/2024 Fall at home, sequela [W19.XXXS, Y92.009] 08/09/2024 Left hip pain [M25.552] 08/09/2024 Hematoma of left thigh [S70.12XA] 08/09/2024 Hamstring injury, left, initial encounter [S76.*08/10/2024 Encounter Status:Closed by VERA ALBERT on 09/24/24 [facility] 09-05-2024 Telephone encounter Note Gary Caputo. Pt needs a refill on her Losartan. 30 day supply pended for her local pharmacy. Her next appointment is 09/18/24. Thanks. Vera Albert, TASNEEM [facility] Work Phone: 09-05-2024 Miscellaneous Notes Gary Caputo. Pt needs a refill on her Losartan. 30 day supply pended for her local pharmacy. Her next appointment is 09/18/24. Thanks. Vera Albert RN documented in this encounter [facility] 09-05-2024 Note HNO ID: [id number] Author: VERA ALBERT RN Service: ? Author Type: Registered Nurse Type: Progress Notes Filed: 09/05/2024 14:12 Note Text: AG TRANSITIONAL CARE MANAGEMENT (TCM) FOLLOW-UP NOTE Patient identified by name and date of : YES Spoke to: patient Diagnosis: N/A Summary: TCM RN called for TCM f/u (SNF D/C 08/29/24). Pt states that she is doing just fine. Her L leg and hip are much, much better. States that most of her bruises are gone. She has 2 left that are much faded and much smaller. No falls. States that she has no problems what so ever. Per pt, her PCP's office called her this morning to remind her of her PCP appointment. Pt is scheduled to see her PCP on 09/18/24 at 11:20a. Pt is requesting a refill on her Losartan. Confirmed pt is taking as ordered. She has about a wk of pills left. She would like this refill to be sent to [facility], otherwise she won't get it in time from her mail order pharmacy. Med pended for pt's PCP. No other needs noted. Health leads screening tool questions performed? Addressed 08/30/24 N/A Concerns: N/A Cotton Stripper plan for next outreach: Will follow-up in about 2wks. Signature: Vera Albert RN September 05, 2024 [facility] 09-05-2024 History of Presen t illness Narrative AG TRANSITIONAL CARE MANAGEMENT (TCM) FOLLOW-UP NOTE Patient identified by name and date of : YES Spoke to: patient Diagnosis: N/A Summary: TCM RN called for TCM f/u (SNF D/C 08/29/24). Pt states that she is doing just fine. Her L leg and hip are much, much better. States that most of her bruises are gone. She has 2 left that are much faded and much smaller. No falls. States that she has no problems what so ever. Per pt, her PCP's office called her this morning to remind her of her PCP appointment. Pt is scheduled to see her PCP on 09/18/24 at 11:20a. Pt is requesting a refill on her Losartan. Confirmed pt is taking as ordered. She has about a wk of pills left. She would like this refill to be sent to [facility], otherwise she won't get it in time from her mail order pharmacy. Med pended for pt's PCP. No other needs noted. Health leads screening tool questions performed? Addressed 08/30/24 N/A Concerns: N/A Cotton Stripper plan for next outreach: Will follow-up in about 2wks. Signature: Vera Albert RN September 05, 2024 documented in this encounter [facility] 09-05-2024 Note HNO ID: [id number] Author: CHARISSE LANGE MA Service: ? Author Type: Warehouse Inventory Clerk Type: Progress Notes Filed: 09/05/2024 10:55 Note Text: Patient informed. Charisse Lange MA [facility] 09-05-2024 History of Presen t illness Narrative Patient informed. Charisse Lange MA At this time she should continue orders per hospital discharge. We can further discuss at her office visit. TRANSITIONAL CARE MANAGEMENT (TCM) COMMUNITY MONITORING PROGRAM - LYNDHURST Provider Action/FYI: Coreg - Pt wants to know why this med decreased Levsin - Hospital D/C'd this med, She plans to continue taking it anyway Oxybutynin - Hospital D/C'd this med and she wants to know why Vitamin B12 - Pt takes 1000mcg 1 tab daily -- This med is not listed on her MAR Coumadin - Pt takes 3mg 1 tab Tuesday-Tuesday, She takes 2mg 1 tab on Sundays only -- Both meds are listed on pt's NOV as Take 1 tablet by mouth daily as directed+ TCM appointment with PCP - 09/18/24 (PCP's 1st available) Dr. Alvarez with Ortho - Provided pt with number to call and schedule an appointment Dr. Gore with [facility] - Pt will get the Renal Function Panel drawn and call to schedule an appointment Rehab sally pt's INR on 08/28/24 - No results in EPIC yet SUMMARY: Pt discharged from [facility] on 08/29/24. Pt discharged from [facility] on 08/14/24. RISK 16 Admitted for: Fall Hamstring injury, left - tear Hematoma of left thigh Left hip pain Hyponatremia Patient seen Inpatient HAYLEE Visit? N/A. Patient seen ICARE Program? N/A. Contact made with patient: Yes Hi my name is Vera Albert RN and I am calling from the [facility] on behalf of your PCP, Tanya Lozano APRN.COLLEGE ATHLETE I understand you were recently in the hospital so I am calling to check in with you to ensure you are feeling well now that you re home. Do you mind if I ask you a few questions related to your hospital stay and well-being Yes Contact with patient post discharge, spoke to patient. Patient identified by name and . Do you feel your health is BETTER, WORSE, or the SAME since leaving the hospital? Better Pt is glad to be home. She states that her stay in rehab went well - no complaints. States that she is doing just fine. She is getting along fine. States that she doesn't need help, but her grandson is there if needed. States that she drinks lots of water, which is why she was hyponatremic. No falls. Her bruising is gone. States that the pain is aggravating at times. Takes Tylenol PRN. which helps. Pt states that the SNF checked her INR on Tuesday. ACTION TAKEN: Patient indicated symptoms are better or same, no action required. Continue outreach. N/A MEDICATIONS: Many patients have questions or concerns about their medications once they are home. Do you have any questions about taking your medications or which medication you should be on? Yes Pt is concerned about some of the med changes. Coreg - Pt wants to know why this med decreased to 6.25mg 1 tab daily. Oxybutynin - The hospital D/C'd this med. She wants to know why. Levsin - The hospital D/C'd this med, She plans to continue taking it PRN anyway. Do you need any medication refills at this time, including any of the medications you might take only when needed? No ACTION TAKEN: No action required For RNs or Pharmacy completing outreach ONLY, was a medication review completed? Yes STOP taking these medications hyoscyamine sublingual 0.125 mg - Pt plans to continue taking this med PRN Commonly known as: LEVSIN SL oxybutynin XL 5 mg 24 hr tablet - Pt wants to know why this med was stopped Commonly known as: DITROPAN XL CHANGE how you take these medications carvedilol 6.25 mg tablet - Pt wants to know why this med was decreased Commonly known as: COREG Take 1 tablet by mouth two times a day. What changed: medication strength how much to take additional instructions Pt also takes Vitamin B12 1000mcg 1 tab daily. This med is not listed on her active MAR or MAR history. Current/Discharged Medications reviewed: Yes Medication List Medication Directions Comments acetaminophen (TYLENOL) 500 mg tablet Take 2 tablets by mouth every 8 hours. Verified carvedilol (COREG) 6.25 mg tablet Take 1 tablet by mouth two times a day. Verified See above Cholecalciferol, Vitamin D3, 50 mcg (2,000 unit) cap Take by mouth once daily. Verified levothyroxine (SYNTHROID) 75 mcg tablet TAKE 1 TABLET BY MOUTH IN THE MORNING ON AN EMPTY STOMACH Verified losartan (COZAAR) 50 mg tablet Take 1 tablet by mouth once daily. Verified magnesium oxide (MAG-OX) 400 mg (241.3 mg magnesium) tablet Take 1 tablet by mouth once daily. Verified pantoprazole DR (PROTONIX) 40 mg tablet Take 1 tablet by mouth once daily. Verified polyethylene glycol 3350 (MIRALAX, GLYCOLAX) 17 gram packet Take 17 g by mouth once daily. Dissolve dose in 4 - 8 ounces of liquid and take as directed. Verified warfarin (COUMADIN) 2 mg tablet Take 1 tablet by mouth daily as directed. Patient taking differently: Take 2 mg by mouth every Tuesday. Verified Pt takes the 2mg dose on Sundays only warfarin (COUMADIN) 3 mg tablet take 1 tablet by mouth daily as directed Patient taking differently: Take 3 mg by mouth once daily. Except Tuesday she takes 2 MG Verified Pt takes the 3mg dose Tuesday-Tuesday SOCIAL: We would like to make sure you have what you need so that your basics needs are met - including your personal safety. HEALTH LEADS SCREENING TOOL QUESTIONS: Do you often feel you lack companionship? No Pt's grandson lives w/ her. He is able to help her if needed. Do you ever need help reading or understanding hospital materials? No In the last 12 months, have you changed how you take medications to save money? No In the past 12 months, has lack of transportation kept you from medical appointments, work or getting things you need like food, or supplies? No In the last 12 months, did you ever eat less than you felt you should because there wasn't enough money for food? No During the winter, do you anticipate having a problem paying your heating bill? No In the next 2 months, are you worried you might not have stable housing? No Would you like to speak with a social work steam frame operator to help give you support for any of these needs? No It can be normal to feel anxious or down during a time like this. Would you like to talk to a mental health professional about how you have been feeling? No ACTION TAKEN: No action taken DISCHARGE INTRUCTIONS: Your discharge instructions / After Visit Summary (AVS) are important in guiding you through the recovery process. Do you have any questions related to your discharge instructions? No Do you have all the necessary equipment and supplies at home? Yes Pt has a walker and rollator. States that she hasn't had to use either. ACTION TAKEN: No action required WRAP AROUND SERVICES: N/A Patient educated on importance of primary care provider follow up visit as well as specialty provider follow up visits as indicated. Inform the patient that if they have any questions or concerns prior to that appointment, to call their Primary Care Provider 's office right away. Primary care provider first education provided. I would like to help you schedule a hospital follow-up virtual or telephone visit with your PCP. ACTION TAKEN: Pt is agreeable to a hospital f/u appointment. She prefers to see her PCP. Scheduled for PCP's 1st opening TCM Primary Care Provider Visit Scheduled: No - Access only outside day window; appointment scheduled: Yes Pt's hospital f/u appointment w/ her PCP is scheduled for 09/18/24 at 11:20a. Discussed that pt is supposed to see Dr. Alvarez w/ Ortho. Number provided ([phone]). She is also supposed to get labs to check her kidney function and f/u w/ Dr. Gore. Renal Function Panel has already been ordered. Pt will call this provider to schedule an appointment. Vera Albert RN documented in this encounter [facility] 09-05-2024 Note Patient Outreach (AG ACM) HELEN LIEBERMAN ([id number]) 1935 F Date Time Provider Department 09/05/24 VERA ALBERT [facility] During your visit today, we recorded the following information about you: Vera Albert RN 09/05/2024 2:12 PM Signed AG TRANSITIONAL CARE MANAGEMENT (TCM) FOLLOW-UP NOTE Patient identified by name and date of : YES Spoke to: patient Diagnosis: N/A Summary: TCM RN called for TCM f/u (SNF D/C 08/29/24). Pt states that she is doing just fine. Her L leg and hip are much, much better. States that most of her bruises are gone. She has 2 left that are much faded and much smaller. No falls. States that she has no problems what so ever. Per pt, her PCP's office called her this morning to remind her of her PCP appointment. Pt is scheduled to see her PCP on 09/18/24 at 11:20a. Pt is requesting a refill on her Losartan. Confirmed pt is taking as ordered. She has about a wk of pills left. She would like this refill to be sent to [facility], otherwise she won't get it in time from her mail order pharmacy. Med pended for pt's PCP. No other needs noted. Health leads screening tool questions performed? Addressed 08/30/24 N/A Concerns: N/A Cotton Stripper plan for next outreach: Will follow-up in about 2wks. Signature: Vera Albert RN September 05, 2024 Allergies As of Date: 09/05/2024 Noted Allergy Reaction AMLODIPINE 08/11/2024 14 - Other: See Comments Comments: Very intense leg cramps PENICILLINS 07/24/2021 16 - Unknown SULFA (SULFONAMIDE ANTIBIOTICS) 07/24/2021 16 - Unknown TETRACYCLINES 07/24/2021 16 - Unknown Date Reviewed: 08/14/2024 Reviewed by: Diana West RN - Fully Assessed Reason for Visit: Transition Of Care [4074] Cmt: TCM f/u Prescriptions as of 09/05/2024 - acetaminophen (TYLENOL) 500 mg tablet Take 2 tablets by mouth every 8 hours. - magnesium oxide (MAG-OX) 400 mg (241.3 mg magnesium) tablet Take 1 tablet by mouth once daily. - losartan (COZAAR) 50 mg tablet Take 1 tablet by mouth once daily. - carvedilol (COREG) 6.25 mg tablet Take 1 tablet by mouth two times a day. - pantoprazole DR (PROTONIX) 40 mg tablet Take 1 tablet by mouth once daily. - levothyroxine (SYNTHROID) 75 mcg tablet TAKE 1 TABLET BY MOUTH IN THE MORNING ON AN EMPTY STOMACH - warfarin (COUMADIN) 3 mg tablet take 1 tablet by mouth daily as directed - warfarin (COUMADIN) 2 mg tablet Take 1 tablet by mouth daily as directed. - polyethylene glycol 3350 (MIRALAX, GLYCOLAX) 17 gram packet Take 17 g by mouth once daily. Dissolve dose in 4 - 8 ounces of liquid and take as directed. - Cholecalciferol, Vitamin D3, 50 mcg (2,000 unit) cap Take by mouth once daily. Problem List As Of Date 09/05/2024 Noted Resolved Essential hypertension, benign [I10] 03/20/2015 Hypothyroidism [E03.9] 03/20/2015 Atrial fibrillation (HCC) [I48.91] 07/29/2021 TIA (transient ischemic attack) [G45.9] 08/09/2021 GERD (gastroesophageal reflux disease) [K21.9] 08/09/2021 Vertigo [R42] 08/09/2021 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] 08/25/2021 Syncope [R55] 09/07/2023 09/08/2023 Syncope and collapse [R55] 09/07/2023 09/08/2023 Chronic diastolic CHF (congestive heart failure*09/08/2023 Hx-TIA (transient ischemic attack) [Z86.73] 08/09/2024 Hyponatremia [E87.1] 08/09/2024 Elevated troponin level [R79.89] 08/09/2024 Fall at home, sequela [W19.XXXS, Y92.009] 08/09/2024 Left hip pain [M25.552] 08/09/2024 Hematoma of left thigh [S70.12XA] 08/09/2024 Hamstring injury, left, initial encounter [S76.*08/10/2024 Encounter Status:Closed by VERA LABERT on 09/05/24 [facility] 08-30-2024 Note HNO ID: [id number] Author: TANYA LOZANO APRN.CNP Service: ? Author Type: Nurse Practitioner Type: Progress Notes Filed: 09/05/2024 10:55 Note Text: At this time she should continue orders per hospital discharge. We can further discuss at her office visit. [facility] 08-30-2024 Note HNO ID: [id number] Author: VERA ALBERT, RN Service: ? Author Type: Registered Nurse Type: Progress Notes Filed: 09/05/2024 10:55 Note Text: TRANSITIONAL CARE MANAGEMENT (TCM) COMMUNITY MONITORING PROGRAM - [facility]URST Provider Action/FYI: Coreg - Pt wants to know why this med decreased Levsin - Hospital D/C'd this med, She plans to continue taking it anyway Oxybutynin - Hospital D/C'd this med and she wants to know why Vitamin B12 - Pt takes 1000mcg 1 tab daily -- This med is not listed on her MAR Coumadin - Pt takes 3mg 1 tab Tuesday-Tuesday, She takes 2mg 1 tab on Sundays only -- Both meds are listed on pt's MAR as Take 1 tablet by mouth daily as directed+ TCM appointment with PCP - 09/18/24 (PCP's 1st available) Dr. Alvarez with Ortho - Provided pt with number to call and schedule an appointment Dr. Gore with [facility] - Pt will get the Renal Function Panel drawn and call to schedule an appointment Rehab sally pt's INR on 08/28/24 - No results in EPIC yet SUMMARY: Pt discharged from [facility] on 08/29/24. Pt discharged from [facility] on 08/14/24. RISK 16 Admitted for: Fall Hamstring injury, left - tear Hematoma of left thigh Left hip pain Hyponatremia Patient seen Inpatient HAYLEE Visit? N/A. Patient seen ICARE Program? N/A. Contact made with patient: Yes Hi my name is Vera Albert RN and I am calling from the [facility] on behalf of your PCP, Tanya Lozano APRN.COLLEGE ATHLETE I understand you were recently in the hospital so I am calling to check in with you to ensure you are feeling well now that you?re home. Do you mind if I ask you a few questions related to your hospital stay and well-being Yes Contact with patient post discharge, spoke to patient. Patient identified by name and . Do you feel your health is BETTER, WORSE, or the SAME since leaving the hospital? Better Pt is glad to be home. She states that her stay in rehab went well - no complaints. States that she is doing just fine. She is getting along fine. States that she doesn't need help, but her grandson is there if needed. States that she drinks lots of water, which is why she was hyponatremic. No falls. Her bruising is gone. States that the pain is aggravating at times. Takes Tylenol PRN. which helps. Pt states that the SNF checked her INR on Tuesday. ACTION TAKEN: Patient indicated symptoms are better or same, no action required. Continue outreach. N/A MEDICATIONS: Many patients have questions or concerns about their medications once they are home. Do you have any questions about taking your medications or which medication you should be on? Yes Pt is concerned about some of the med changes. Coreg - Pt wants to know why this med decreased to 6.25mg 1 tab daily. Oxybutynin - The hospital D/C'd this med. She wants to know why. Levsin - The hospital D/C'd this med, She plans to continue taking it PRN anyway. Do you need any medication refills at this time, including any of the medications you might take only when needed? No ACTION TAKEN: No action required For RNs or Pharmacy completing outreach ONLY, was a medication review completed? Yes STOP taking these medications hyoscyamine sublingual 0.125 mg - Pt plans to continue taking this med PRN Commonly known as: LEVSIN SL oxybutynin XL 5 mg 24 hr tablet - Pt wants to know why this med was stopped Commonly known as: DITROPAN XL CHANGE how you take these medications carvedilol 6.25 mg tablet - Pt wants to know why this med was decreased Commonly known as: COREG Take 1 tablet by mouth two times a day. What changed: medication strength how much to take additional instructions Pt also takes Vitamin B12 1000mcg 1 tab daily. This med is not listed on her active MAR or MAR history. Current/Discharged Medications reviewed: Yes Medication List Medication Directions Comments acetaminophen (TYLENOL) 500 mg tablet Take 2 tablets by mouth every 8 hours. Verified carvedilol (COREG) 6.25 mg tablet Take 1 tablet by mouth two times a day. Verified See above Cholecalciferol, Vitamin D3, 50 mcg (2,000 unit) cap Take by mouth once daily. Verified levothyroxine (SYNTHROID) 75 mcg tablet TAKE 1 TABLET BY MOUTH IN THE MORNING ON AN EMPTY STOMACH Verified losartan (COZAAR) 50 mg tablet Take 1 tablet by mouth once daily. Verified magnesium oxide (MAG-OX) 400 mg (241.3 mg magnesium) tablet Take 1 tablet by mouth once daily. Verified pantoprazole DR (PROTONIX) 40 mg tablet Take 1 tablet by mouth once daily. Verified polyethylene glycol 3350 (MIRALAX, GLYCOLAX) 17 gram packet Take 17 g by mouth once daily. Dissolve dose in 4 - 8 ounces of liquid and take as directed. Verified warfarin (COUMADIN) 2 mg tablet Take 1 tablet by mouth daily as directed. Patient taking differently: Take 2 mg by mouth every Tuesday. Verified Pt takes the 2mg dose on Sundays only warfarin (COUMA (more content not included)... [facility] 08-30-2024 Note HNO ID: [id number] Author: PAU ROJAS RN Service: ? Author Type: Registered Nurse Type: Progress Notes Filed: 08/30/2024 07:20 Note Text: Received notification via careport: Patient discharged from [facility] on 08/29/2024 to home with [facility]. A discharge summary and medicatoin list has been requested. PCC notified. Pau Rojas RN August 30, 2024 [facility] 08-30-2024 History of Presen t illness Narrative Received notification via careport: Patient discharged from [facility] on 08/29/2024 to home with [facility]. A discharge summary and medicatoin list has been requested. PCC notified. Pau Rojas RN August 30, 2024 documented in this encounter [facility] 08-30-2024 Note Patient Outreach (AG AC) HELEN LIEBERMAN ([id number]) 1935 F Date Time Provider Department 08/30/24 PAU ROJAS [facility] During your visit today, we recorded the following information about you: Pau Rojas RN 08/30/2024 7:20 AM Signed Received notification via careport: Patient discharged from [facility] on 08/29/2024 to home with [facility]. A discharge summary and medicatoin list has been requested. PCC notified. Pau Rojas RN August 30, 2024 Allergies As of Date: 08/30/2024 Noted Allergy Reaction AMLODIPINE 08/11/2024 14 - Other: See Comments Comments: Very intense leg cramps PENICILLINS 07/24/2021 16 - Unknown SULFA (SULFONAMIDE ANTIBIOTICS) 07/24/2021 16 - Unknown TETRACYCLINES 07/24/2021 16 - Unknown Date Reviewed: 08/14/2024 Reviewed by: Diana West RN - Fully Assessed Reason for Visit: Transition Of Care [4074] Cmt: Discharged from SNF to home with [facility] Prescriptions as of 08/30/2024 - acetaminophen (TYLENOL) 500 mg tablet Take 2 tablets by mouth every 8 hours. - magnesium oxide (MAG-OX) 400 mg (241.3 mg magnesium) tablet Take 1 tablet by mouth once daily. - losartan (COZAAR) 50 mg tablet Take 1 tablet by mouth once daily. - carvedilol (COREG) 6.25 mg tablet Take 1 tablet by mouth two times a day. - pantoprazole DR (PROTONIX) 40 mg tablet Take 1 tablet by mouth once daily. - levothyroxine (SYNTHROID) 75 mcg tablet TAKE 1 TABLET BY MOUTH IN THE MORNING ON AN EMPTY STOMACH - warfarin (COUMADIN) 3 mg tablet take 1 tablet by mouth daily as directed - warfarin (COUMADIN) 2 mg tablet Take 1 tablet by mouth daily as directed. - polyethylene glycol 3350 (MIRALAX, GLYCOLAX) 17 gram packet Take 17 g by mouth once daily. Dissolve dose in 4 - 8 ounces of liquid and take as directed. - Cholecalciferol, Vitamin D3, 50 mcg (2,000 unit) cap Take by mouth once daily. Problem List As Of Date 08/30/2024 Noted Resolved Essential hypertension, benign [I10] 03/20/2015 Hypothyroidism [E03.9] 03/20/2015 Atrial fibrillation (HCC) [I48.91] 07/29/2021 TIA (transient ischemic attack) [G45.9] 08/09/2021 GERD (gastroesophageal reflux disease) [K21.9] 08/09/2021 Vertigo [R42] 08/09/2021 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] 08/25/2021 Syncope [R55] 09/07/2023 09/08/2023 Syncope and collapse [R55] 09/07/2023 09/08/2023 Chronic diastolic CHF (congestive heart failure*09/08/2023 Hx-TIA (transient ischemic attack) [Z86.73] 08/09/2024 Hyponatremia [E87.1] 08/09/2024 Elevated troponin level [R79.89] 08/09/2024 Fall at home, sequela [W19.XXXS, Y92.009] 08/09/2024 Left hip pain [M25.552] 08/09/2024 Hematoma of left thigh [S70.12XA] 08/09/2024 Hamstring injury, left, initial encounter [S76.*08/10/2024 Encounter Status:Closed by PAU ROJAS on 08/30/24 [facility] 08-30-2024 Note Patient Outreach (AG ACM) HELEN LIEBERMAN ([id number]) 1935 F Date Time Provider Department 08/30/24 VERA ALBERT [facility] During your visit today, we recorded the following information about you: Vera Albert, TASNEEM 09/05/2024 10:55 AM Signed TRANSITIONAL CARE MANAGEMENT (TCM) COMMUNITY MONITORING PROGRAM - [facility]ST Provider Action/FYI: Coreg - Pt wants to know why this med decreased Levsin - Hospital D/C'd this med, She plans to continue taking it anyway Oxybutynin - Hospital D/C'd this med and she wants to know why Vitamin B12 - Pt takes 1000mcg 1 tab daily -- This med is not listed on her MAR Coumadin - Pt takes 3mg 1 tab Tuesday-Tuesday, She takes 2mg 1 tab on Sundays only -- Both meds are listed on pt's MAR as Take 1 tablet by mouth daily as directed+ TCM appointment with PCP - 09/18/24 (PCP's 1st available) Dr. Alvarez with Ortho - Provided pt with number to call and schedule an appointment Dr. Gore with Nepth[facility] - Pt will get the Renal Function Panel drawn and call to schedule an appointment Rehab sally pt's INR on 08/28/24 - No results in EPIC yet SUMMARY: Pt discharged from [facility] on 08/29/24. Pt discharged from [facility] on 08/14/24. RISK 16 Admitted for: Fall Hamstring injury, left - tear Hematoma of left thigh Left hip pain Hyponatremia Patient seen Inpatient HAYLEE Visit? N/A. Patient seen ICARE Program? N/A. Contact made with patient: Yes Hi my name is Vera Albert RN and I am calling from the [facility] on behalf of your PCP, Tanya Lozano APRN.COLLEGE ATHLETE I understand you were recently in the hospital so I am calling to check in with you to ensure you are feeling well now that you?re home. Do you mind if I ask you a few questions related to your hospital stay and well-being Yes Contact with patient post discharge, spoke to patient. Patient identified by name and . Do you feel your health is BETTER, WORSE, or the SAME since leaving the hospital? Better Pt is glad to be home. She states that her stay in rehab went well - no complaints. States that she is doing just fine. She is getting along fine. States that she doesn't need help, but her grandson is there if needed. States that she drinks lots of water, which is why she was hyponatremic. No falls. Her bruising is gone. States that the pain is aggravating at times. Takes Tylenol PRN. which helps. Pt states that the SNF checked her INR on Tuesday. ACTION TAKEN: Patient indicated symptoms are better or same, no action required. Continue outreach. N/A MEDICATIONS: Many patients have questions or concerns about their medications once they are home. Do you have any questions about taking your medications or which medication you should be on? Yes Pt is concerned about some of the med changes. Coreg - Pt wants to know why this med decreased to 6.25mg 1 tab daily. Oxybutynin - The hospital D/C'd this med. She wants to know why. Levsin - The hospital D/C'd this med, She plans to continue taking it PRN anyway. Do you need any medication refills at this time, including any of the medications you might take only when needed? No ACTION TAKEN: No action required For RNs or Pharmacy completing outreach ONLY, was a medication review completed? Yes STOP taking these medications hyoscyamine sublingual 0.125 mg - Pt plans to continue taking this med PRN Commonly known as: LEVSIN SL oxybutynin XL 5 mg 24 hr tablet - Pt wants to know why this med was stopped Commonly known as: DITROPAN XL CHANGE how you take these medications carvedilol 6.25 mg tablet - Pt wants to know why this med was decreased Commonly known as: COREG Take 1 tablet by mouth two times a day. What changed: medication strength how much to take additional instructions Pt also takes Vitamin B12 1000mcg 1 tab daily. This med is not listed on her active MAR or MAR history. Current/Discharged Medications reviewed: Yes Medication List Medication Directions Comments acetaminophen (TYLENOL) 500 mg tablet Take 2 tablets by mouth every 8 hours. Verified carvedilol (COREG) 6.25 mg tablet Take 1 tablet by mouth two times a day. Verified See above Cholecalciferol, Vitamin D3, 50 mcg (2,000 unit) cap Take by mouth once daily. Verified levothyroxine (SYNTHROID) 75 mcg tablet TAKE 1 TABLET BY MOUTH IN THE MORNING ON AN EMPTY STOMACH Verified losartan (COZAAR) 50 mg tablet Take 1 tablet by mouth once daily. Verified magnesium oxide (MAG-OX) 400 mg (241.3 mg magnesium) tablet Take 1 tablet by mouth once daily. Verified pantoprazole DR (PROTONIX) 40 mg tablet Take 1 tablet by mouth once daily. Verified polyethylene glycol 3350 (MIRALAX, GLYCOLAX) 17 gram packet Take 17 g by mouth once daily. Dissolve dose in 4 - 8 ounces of liquid and take as directed. Verified warfarin (COUMAD (more content not included)... [facility] 08-15-2024 Note HNO ID: [id number] Author: PAU ROJAS RN Service: ? Author Type: Registered Nurse Type: Progress Notes Filed: 08/15/2024 07:43 Note Text: TRANSITION CARE MANAGEMENT (TCM) DISCHARGE TO POST ACUTE FACILITY POST ACUTE TRANSFER SUMMARY: -Pt discharged from [facility] on 08/14/2024. -Post Acute Facility Admitted to [facility] -Admitted for: Fall at home Office PCC will follow at discharge. Pau Rojas RN August 15, 2024 [facility] 08-15-2024 History of Presen t illness Narrative TRANSITION CARE MANAGEMENT (TCM) DISCHARGE TO POST ACUTE FACILITY POST ACUTE TRANSFER SUMMARY: -Pt discharged from [facility] on 08/14/2024. -Post Acute Facility Admitted to [facility] -Admitted for: Fall at home Office PCC will follow at discharge. Pau Rojas RN August 15, 2024 documented in this encounter [facility] 08-15-2024 Note Patient Outreach (AG ACM) HELEN LIEBERMAN ([id number]) 1935 F Date Time Provider Department 08/15/24 PAU ROJAS [facility] During your visit today, we recorded the following information about you: Pau Rojas RN 08/15/2024 7:43 AM Addendum TRANSITION CARE MANAGEMENT (TCM) DISCHARGE TO POST ACUTE FACILITY POST ACUTE TRANSFER SUMMARY: -Pt discharged from [facility] on 08/14/2024. -Post Acute Facility Admitted to [facility] -Admitted for: Fall at home Office PCC will follow at discharge. Pau Rojas RN August 15, 2024 Allergies As of Date: 08/15/2024 Noted Allergy Reaction AMLODIPINE 08/11/2024 14 - Other: See Comments Comments: Very intense leg cramps PENICILLINS 07/24/2021 16 - Unknown SULFA (SULFONAMIDE ANTIBIOTICS) 07/24/2021 16 - Unknown TETRACYCLINES 07/24/2021 16 - Unknown Date Reviewed: 08/14/2024 Reviewed by: Diana West, TASNEEM - Fully Assessed Reason for Visit: Transition Of Care [4074] Cmt: [facility] Discharge to SNF Prescriptions as of 08/15/2024 - acetaminophen (TYLENOL) 500 mg tablet Take 2 tablets by mouth every 8 hours. - magnesium oxide (MAG-OX) 400 mg (241.3 mg magnesium) tablet Take 1 tablet by mouth once daily. - losartan (COZAAR) 50 mg tablet Take 1 tablet by mouth once daily. - carvedilol (COREG) 6.25 mg tablet Take 1 tablet by mouth two times a day. - pantoprazole DR (PROTONIX) 40 mg tablet Take 1 tablet by mouth once daily. - levothyroxine (SYNTHROID) 75 mcg tablet TAKE 1 TABLET BY MOUTH IN THE MORNING ON AN EMPTY STOMACH - warfarin (COUMADIN) 3 mg tablet take 1 tablet by mouth daily as directed - warfarin (COUMADIN) 2 mg tablet Take 1 tablet by mouth daily as directed. - polyethylene glycol 3350 (MIRALAX, GLYCOLAX) 17 gram packet Take 17 g by mouth once daily. Dissolve dose in 4 - 8 ounces of liquid and take as directed. - Cholecalciferol, Vitamin D3, 50 mcg (2,000 unit) cap Take by mouth once daily. Problem List As Of Date 08/15/2024 Noted Resolved Essential hypertension, benign [I10] 03/20/2015 Hypothyroidism [E03.9] 03/20/2015 Atrial fibrillation (HCC) [I48.91] 07/29/2021 TIA (transient ischemic attack) [G45.9] 08/09/2021 GERD (gastroesophageal reflux disease) [K21.9] 08/09/2021 Vertigo [R42] 08/09/2021 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] 08/25/2021 Syncope [R55] 09/07/2023 09/08/2023 Syncope and collapse [R55] 09/07/2023 09/08/2023 Chronic diastolic CHF (congestive heart failure*09/08/2023 Hx-TIA (transient ischemic attack) [Z86.73] 08/09/2024 Hyponatremia [E87.1] 08/09/2024 Elevated troponin level [R79.89] 08/09/2024 Fall at home, sequela [W19.XXXS, Y92.009] 08/09/2024 Left hip pain [M25.552] 08/09/2024 Hematoma of left thigh [S70.12XA] 08/09/2024 Hamstring injury, left, initial encounter [S76.*08/10/2024 Encounter Status:Closed by PAU ROJAS on 08/15/24 [facility] 08-14-2024 Note HNO ID: [id number] Author: NEENA SHARP RN Service: Care Management Author Type: Registered Nurse Type: Care Mgt Progress Note Filed: 08/14/2024 08:40 Note Text: CARE MANAGEMENT DISCHARGE NOTE SERVICE DATE: August 14, 2024 SERVICE TIME: 8:37 AM Admission Date: 08/09/2024 LOS: 5 days Discharge Arrangement Discharge Arrangement: Alf Facility Was an expedited discharge program used?: No Provider Name: [facility] Caregiver Assessment Caregiver is ready, willing and able to meet the patient's needs as recommended by the inter-professional team: Yes Name of Caregiver: [facility] Transportation Arrangements Transportation Arrangements: Ambulance Transportation Agency and Phone #:: [facility] [phone] Date of Trip: 08/14/24 Time of Trip: 1100 Type of Service: BLS Non-emergency Is Patient Medicaid Pending?: No Was transportation financial coverage discussed with family?: Patient 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 [facility] has pre-cert and confirmed they can accept the patient today. The patient was updated at bedside. She is agreeable to discharge to [facility] today and requested transportation be arranged. [facility] ambulance transport is scheduled for 11am. The patient, TASNEEM Ortiz and [facility] were made aware of the scheduled transport time. The discharge envelope was placed on the patient's chart and includes the phone number for nurse to nurse report. SIGNATURE: Neena Sharp RN PATIENT NAME: Helen Lieberman DATE: August 14, 2024 TIME: 8:37 AM CONTACT #: [phone] [facility] 08-14-2024 Note HNO ID: [id number] Author: NEENA SHARP RN Service: Care Management Author Type: Registered Nurse Type: Care Mgt Progress Note Filed: 08/14/2024 07:55 Note Text: CARE MANAGEMENT PROGRESS NOTE SERVICE DATE: 08/14/2024 SERVICE TIME: 7:35 AM LOS: 5 days IMM Follow Up Copy Given: Yes Copy given to:: Patient Method: In Person SIGNATURE: Neena Sharp RN PATIENT NAME: Helen Lieberman DATE: August 14, 2024 TIME: 7:54 AM PAGER/CONTACT #: [phone] [facility] 08-13-2024 Note HNO ID: [id number] Author: KATHRYN LEARY MD Service: Hospital Medicine Author Type: Physician Type: Plan of Care Filed: 08/14/2024 06:39 Note Text: Was called regarding patient's blood pressure of 125/76 and pulse of 61 and if okay to give Coreg 25 mg. Chart review showed that patient's nighttime dose of Coreg was held the night before for similar reasons. Will give 1 dose of Coreg 3.125 mg x 1. With parameters, decrease Coreg from 25 mg twice daily to 6.25 mg twice daily starting tomorrow morning, decrease losartan to 50 mg daily. Continue other current management. Kathryn Leary MD [facility] 08-13-2024 Note HNO ID: [id number] Author: EVANGELISTA SOMMERS MD Service: Hospital Medicine Author Type: Physician Type: Progress Notes Filed: 08/14/2024 09:36 Note Text: DEPARTMENT OF HOSPITAL MEDICINE PROGRESS NOTE SERVICE DATE: 08/14/2024 SERVICE TIME: 7:20 AM Hospital Medicine/Primary Attending: Evangelista Sommers MD NIGHT AND WEEKEND COVERAGE: [place] COVERAGE: Nights: [phone], please page [place] Hospitalist Night coverage pager [phone]. Probable discharge: Choices and precertification Disposition: shelter facility in [facility] Consultants: Dr. 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 Blood pressure has been labile with her pain and Dr. Gore has the blood pressure medications the way he wants them and any questions on the blood pressure medication changes should be referred to him as he will be following her for her . Patient has hamstring tear unable to bear weight without marked pain and needs assistance to get out of bed needs longterm choices and precertification. OBJECTIVE MRI 08/10/2024 IMPRESSION: Complete tear of the LEFT proximal conjoint hamstring tendon with extensive intramuscular and perifascial edema/hemorrhage throughout the posterior compartment of the LEFT thigh. 5.5 cm organized hematoma in the proximal semitendinosus muscle with areas of internal nodular enhancement. Given the enhancement, a follow-up MRI in 3-6 months is recommended to ensure resolution of this finding. EK08/09/2024 sinus rhythm first-degree AV block RSR prime in V1 consistent with bronchospasm similar to EKG 09/07/2023 ECHOCARDIOGRAM: 09/08/2023 The left ventricle is normal in size. There is mild septal left ventricular hypertrophy. Left ventricular systolic function is normal. EF = 62 ? 5% (2D biplane) Grade II left ventricular diastolic dysfunction. - The right ventricle is normal in size. Right ventricular systolic function is normal. - The left atrial cavity is mildly dilated. - There is mild (1+) mitral regurgitation. - There is mild (1+) tricuspid regurgitation. - Agitated saline study is negative for shunt (clip #75). Recent Labs 08/12/24 0758 08/11/24 0629 08/10/24 0620 MCV 95.0 96.3 96.6 MCH 32.6 32.8 32.6 MPV 9.1 9.4 9.1 Recent Labs 08/12/24 0758 08/11/24 0629 08/10/24 0620 08/09/24 1645 WBC 7.57 7.91 7.71 6.74 RBC 3.40* 3.48* 3.56* 4.01 HB 11.1* 11.4* 11.6 13.0 HCT 32.3* 33.5* 34.4* 38.5 PLT 274 280 277 302 MCV 95.0 96.3 96.6 96.0 MCH 32.6 32.8 32.6 32.4 MPV 9.1 9.4 9.1 8.7* ABSNEUT -- -- -- 4.18 NEUTP -- -- -- 62.0 LYMPHP -- -- -- 25.7 MONOP -- -- -- 9.5 EODINP -- -- -- 1.9 Recent Labs 08/13/2461608/12/2475708/11/2462908/10/2461908/09/24 1645 GLUC 114* 153* 110* < > 119* NA 129* 123* 127* < > 129* K 4.3 4.1 4.6 < > 5.0 CHLOR 93* 86* 90* < > 92* CO2 29 29 28 < > 28 CREAT 0.93 0.86 0.81 < > 0.84 BUN 39* 13 13 < > 14 ANION 7* 8 9 < > 9 CA 9.6 9.2 9.4 < > 9.5 TPROT -- -- -- -- 7.2 ALB 3.8* -- -- -- 4.2 TBILI -- -- -- -- 0.7 ALKPHOS -- -- -- -- 68 AST -- -- -- -- 22 ALT -- -- -- -- 14 < > = values in this interval not displayed. Recent Labs 08/10/2461908/09/24 1645 APTT 35.3* 41.5* INR 2.0* 3.0* Recent Labs 08/13/2461608/12/2475708/11/24629 GLUC 114* 153* 110* No results for input(s): LACT in the last 168 hours. Recent Labs 08/13/2461608/12/2475708/11/2462908/10/24619 BUN 39* 13 13 12 CREAT 0.93 0.86 0.81 0.75 CA 9.6 9.2 9.4 9.0 P 3.6 -- -- -- MG -- 1.7 1.8 1.8 Most recent labs Last 14 BP Last 14 Encounter BP Readings: Date: BP: 08/09/2024 117/51 07/18/2024 156/60 06/18/2024 136/78 04/23/2024 170/60 03/26/2024 142/60 12/07/2023 138/62 11/01/2023 142/60 10/06/2023 138/60 09/27/2023 148/60 09/07/2023 162/80 08/25/2023 130/68 07/19/2023 158/60 07/13/2023 138/60 07/11/2023 142/60 Hemoglobin A1C (%) Date Value 08/09/2021 5.6 TSH Date Value Ref Range Status 01/17/2023 2.040 0.270 - 4.200 mIU/L Final HOSPITAL COURSE: Helen Lieberman is a 88 year old female presented with past medical history of HTN, HFpEF, AFIB (on Coumadin), hyponatremia, hx TIA, and GERD who presents with fall, left hip pain. CT scan of left him ruled out acute fracture. Patient does have ansley of hamstring tendon and hematoma. Ortho evaluat (more content not included)... [facility] 08-13-2024 Note HNO ID: [id number] Author: JW CHENG ? Service: Care Management Author Type: ? Type: Care Mgt Progress Note Filed: 08/13/2024 16:37 Note Text: [facility] ([facility]) PRECERT NOTE [facility] MEDICARE ADVANTAGE PPO approved Alf Facility for [facility]. Precert approved through 08/20/24. For any additional questions regarding approvals, transport or care management needs, please contact the CM assigned to this patient in the Treatment Team. SIGNATURE: Jw Cheng DATE: August 13, 2024 TIME: 4:36 PM [facility] 08-13-2024 Note HNO ID: [id number] Author: EVANGELISTA SOMMERS MD Service: Care Management Author Type: Physician Type: Care Mgt Progress Note Filed: 08/13/2024 16:14 Note Text: ADDENDUM:Attestation: I have reviewed the plan with the patient and the practitioner I agree with the examination. Evangelista Sommers MD August 13, 2024 4:14 PM CARE MANAGEMENT PROGRESS NOTE SERVICE DATE: 08/13/2024 SERVICE TIME: 3:35 PM LOS: 4 days Physician Certification of Less Than 30 Days Skilled Needs Earliest Possible Discharge Date: 08/13/24 To the best of my knowledge, all information provided about the individual is a true and an accurate reflection of Helen Lieberman's needs. I certify that following the inpatient level of care, a post-acute nursing facility stay is required for less than 30 days related to the condition(s) for which the patient was treated during the inpatient level of care: Principal Problem: Fall at home, sequela Active Problems: Essential hypertension, benign Hypothyroidism Atrial fibrillation (HCC) GERD (gastroesophageal reflux disease) Chronic diastolic CHF (congestive heart failure) (HCC) Hx-TIA (transient ischemic attack) Hyponatremia Elevated troponin level Left hip pain Hematoma of left thigh Hamstring injury, left, initial encounter Resolved Problems: * No resolved hospital problems. * Attending Physician: Evangelista Sommers MD SIGNATURE: Neena Sharp RN PATIENT NAME: Helen Lieberman DATE: August 13, 2024 TIME: 3:35 PM PAGER/CONTACT #: [phone] [facility] 08-13-2024 Note HNO ID: [id number] Author: NEENA SHARP RN Service: Care Management Author Type: Registered Nurse Type: Care Mgt Progress Note Filed: 08/13/2024 15:32 Note Text: CARE MANAGEMENT PROGRESS NOTE SERVICE DATE: 08/13/2024 SERVICE TIME: 9:11 AM LOS: 4 days Needs Prior to Discharge: Accepting Facility;Facility or Agency Choices;OT/PT Evaluation;Precertification [place] of Choice Given: Yes Level of Care Discussed: Alf Facility Financial Disclosure Provided: Yes Provider List: Alf Facility Provider list within the patient's requested geographic area shared with the patient/family: Yes within: 15 miles of zip code: [address] Quality and resource use metrics shared with the patient that are relevant to the patient's goals of care and treatment preferences:: Yes Metrics: Skin Integrity;Functional Status;Incidence of Major Falls EMR reviewed. Physical Therapy is now recommending SNF. Updated Occupational Therapy note is pending. TASNEEM GREEN met with the patient at bedside to discuss discharge planning needs. SNF referrals sent to [facility] and [facility] per patient preference. CM assigned will continue to follow. 1430-[facility] can accept and is the patient's facility of choice. Awaiting updated OT note to begin pre-cert. 1530-[facility] tasked to begin pre-cert for [facility]. SIGNATURE: Neena Sharp RN PATIENT NAME: Helen Lieberman DATE: August 13, 2024 TIME: 9:11 AM PAGER/CONTACT #: [phone] [facility] 08-13-2024 Telephone encounter Note Images from the original note were not included. Date/Time: 08/13/2024 8:44 AM Spoke with Helen @ phone #: [phone] - Preferred # for contact: [phone] Have you received help from a home care company in the last 60 days? no Are you agreeable to C services? yes What address will we be seeing you at? [address] [place] [address] Do you have any upcoming appointments or things we need to schedule around? no Do you have a teachable CG or can you manage your care independently? Have you received the flu shot? no If so, when and where? no [facility] Work Phone: 08-13-2024 Miscellaneous Notes Images from the original note were not included. Date/Time: 08/13/2024 8:44 AM Spoke with Helen @ phone #: [phone] - Preferred # for contact: [phone] Have you received help from a home care company in the last 60 days? no Are you agreeable to [facility] services? yes What address will we be seeing you at? [address] [place] [address] Do you have any upcoming appointments or things we need to schedule around? no Do you have a teachable CG or can you manage your care independently? Have you received the flu shot? no If so, when and where? no documented in this encounter [facility] 08-12-2024 Note HNO ID: [id number] Author: EVANGELISTA SOMMERS MD Service: Hospital Medicine Author Type: Physician Type: Progress Notes Filed: 08/12/2024 12:24 Note Text: DEPARTMENT OF HOSPITAL MEDICINE PROGRESS NOTE SERVICE DATE: 08/12/2024 SERVICE TIME: 11:38 AM Hospital Medicine/Primary Attending: Evangelista Sommers MD NIGHT AND WEEKEND COVERAGE: [employer] C[employer]: Nights: [phone], please page [facility] Night coverage pager [phone]. Probable discharge: Choices and precertification Disposition: shelter facility in [facility] Consultants: Dr. 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 Olmos: The HCTZ has been discontinued. Will decrease the carvedilol dose. => 12.5 mg twice daily from 25 mg twice daily Acceptable to allow generous BPs given advanced age and risk of a fall. Will add urea 3x daily until discharge. Will follow labs after discharge and if she drops below 130 start at least daily urea. Patient has hamstring tear unable to bear weight without marked pain and needs assistance to get out of bed needs longterm choices and precertification. OBJECTIVE MRI 08/10/2024 IMPRESSION: Complete tear of the LEFT proximal conjoint hamstring tendon with extensive intramuscular and perifascial edema/hemorrhage throughout the posterior compartment of the LEFT thigh. 5.5 cm organized hematoma in the proximal semitendinosus muscle with areas of internal nodular enhancement. Given the enhancement, a follow-up MRI in 3-6 months is recommended to ensure resolution of this finding. EK08/09/2024 sinus rhythm first-degree AV block RSR prime in V1 consistent with bronchospasm similar to EKG 09/07/2023 ECHOCARDIOGRAM: 09/08/2023 The left ventricle is normal in size. There is mild septal left ventricular hypertrophy. Left ventricular systolic function is normal. EF = 62 ? 5% (2D biplane) Grade II left ventricular diastolic dysfunction. - The right ventricle is normal in size. Right ventricular systolic function is normal. - The left atrial cavity is mildly dilated. - There is mild (1+) mitral regurgitation. - There is mild (1+) tricuspid regurgitation. - Agitated saline study is negative for shunt (clip #75). Recent Labs 08/12/2475708/11/2429 08/10/24619 MCV 95.0 96.3 96.6 MCH 32.6 32.8 32.6 MPV 9.1 9.4 9.1 Recent Labs 08/12/2475708/11/2429 08/10/2461908/09/24 1645 WBC 7.57 7.91 7.71 6.74 RBC 3.40* 3.48* 3.56* 4.01 HB 11.1* 11.4* 11.6 13.0 HCT 32.3* 33.5* 34.4* 38.5 PLT 274 280 277 302 MCV 95.0 96.3 96.6 96.0 MCH 32.6 32.8 32.6 32.4 MPV 9.1 9.4 9.1 8.7* ABSNEUT -- -- -- 4.18 NEUTP -- -- -- 62.0 LYMPHP -- -- -- 25.7 MONOP -- -- -- 9.5 EODINP -- -- -- 1.9 Recent Labs 08/12/2475708/11/2462908/10/2461908/09/24 1645 GLUC 153* 110* 114* 119* NA 123* 127* 131* 129* K 4.1 4.6 4.4 5.0 CHLOR 86* 90* 97* 92* CO2 29 28 26 28 CREAT 0.86 0.81 0.75 0.84 BUN 13 13 12 14 ANION 8 9 8 9 CA 9.2 9.4 9.0 9.5 TPROT -- -- -- 7.2 ALB -- -- -- 4.2 TBILI -- -- -- 0.7 ALKPHOS -- -- -- 68 AST -- -- -- 22 ALT -- -- -- 14 Recent Labs 08/10/2461908/09/24 1645 APTT 35.3* 41.5* INR 2.0* 3.0* Recent Labs 08/12/24 0758 08/11/24 0630 08/10/24 0620 GLUC 153* 110* 114* No results for input(s): LACT in the last 168 hours. Recent Labs 08/12/24 0758 08/11/24 0630 08/10/24 0620 BUN 13 13 12 CREAT 0.86 0.81 0.75 CA 9.2 9.4 9.0 MG 1.7 1.8 1.8 Most recent labs Last 14 BP Last 14 Encounter BP Readings: Date: BP: 08/09/2024 117/51 07/18/2024 156/60 06/18/2024 136/78 04/23/2024 170/60 03/26/2024 142/60 12/07/2023 138/62 11/01/2023 142/60 10/06/2023 138/60 09/27/2023 148/60 09/07/2023 162/80 08/25/2023 130/68 07/19/2023 158/60 07/13/2023 138/60 07/11/2023 142/60 Hemoglobin A1C (%) Date Value 08/09/2021 5.6 TSH Date Value Ref Range Status 01/17/2023 2.040 0.270 - 4.200 mIU/L Final HOSPITAL COURSE: Helen Lieberman is a 88 year old female presented with past medical history of HTN, HFpEF, AFIB (on Coumadin), hyponatremia, hx TIA, and GERD who presents with fall, left hip pain. CT scan of left him ruled out acute fracture. Patient does have ansley of hamstring tendon and hematoma. Ortho evaluated patient , did not recommend any surgery. Able to walk when I attempted to walk her and physical therapy confirmed this. She will need longterm facility. The hyponatremia is due to low solute intake and high water intake diet. Dr. Olmos added urea tablets to be taken when her sodium is under 130. Beta-doug dose was decreased as i (more content not included)... [facility] 08-11-2024 Note HNO ID: [id number] Author: EVANGELISTA SOMMERS MD Service: Hospital Medicine Author Type: Physician Type: Progress Notes Filed: 08/11/2024 12:57 Note Text: DEPARTMENT OF HOSPITAL MEDICINE PROGRESS NOTE SERVICE DATE: 08/11/2024 SERVICE TIME: 11:19 AM Hospital Medicine/Primary Attending: Evangelista Sommers MD NIGHT AND WEEKEND COVERAGE: [place] COVER[employer]: Nights: [phone], please page [place] [facility] Night coverage pager [phone]. Probable discharge: Disposition: Consultants: Dr. 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 Gore on prior admissions and never determined to be SIADH with certainty urine sodium/osmolality pending uric acid levels low consistent with SIADH getting nephrology consult and starting 1500 cc fluid restriction and orthostatic vital signs. Patient is not on diuretic. Apparently prior cortisol and thyroid studies normal. 0 2:55 AM cortisol on 08/10/2020 116.8 and last December TSH normal. Patient has hamstring tear unable to bear weight without marked pain and needs assistance to get out of bed Orthostatics supine heart rate 58 BP 142/67 Standing heart rate 67 blood pressure 162/67 OBJECTIVE MRI 08/10/2024 IMPRESSION: Complete tear of the LEFT proximal conjoint hamstring tendon with extensive intramuscular and perifascial edema/hemorrhage throughout the posterior compartment of the LEFT thigh. 5.5 cm organized hematoma in the proximal semitendinosus muscle with areas of internal nodular enhancement. Given the enhancement, a follow-up MRI in 3-6 months is recommended to ensure resolution of this finding. EK08/09/2024 sinus rhythm first-degree AV block RSR prime in V1 consistent with bronchospasm similar to EKG 09/07/2023 ECHOCARDIOGRAM: 09/08/2023 The left ventricle is normal in size. There is mild septal left ventricular hypertrophy. Left ventricular systolic function is normal. EF = 62 ? 5% (2D biplane) Grade II left ventricular diastolic dysfunction. - The right ventricle is normal in size. Right ventricular systolic function is normal. - The left atrial cavity is mildly dilated. - There is mild (1+) mitral regurgitation. - There is mild (1+) tricuspid regurgitation. - Agitated saline study is negative for shunt (clip #75). Recent Labs 08/11/2462808/10/2461908/09/24 164 MCV 96.3 96.6 96.0 MCH 32.8 32.6 32.4 MPV 9.4 9.1 8.7* Recent Labs 08/11/24 0629 08/10/2461908/09/24 1645 WBC 7.91 7.71 6.74 RBC 3.48* 3.56* 4.01 HB 11.4* 11.6 13.0 HCT 33.5* 34.4* 38.5 PLT 280 277 302 MCV 96.3 96.6 96.0 MCH 32.8 32.6 32.4 MPV 9.4 9.1 8.7* ABSNEUT -- -- 4.18 NEUTP -- -- 62.0 LYMPHP -- -- 25.7 MONOP -- -- 9.5 EODINP -- -- 1.9 Recent Labs 08/11/2462908/10/2461908/09/24 1645 GLUC 110* 114* 119* NA 127* 131* 129* K 4.6 4.4 5.0 CHLOR 90* 97* 92* CO2 28 26 28 CREAT 0.81 0.75 0.84 BUN 13 12 14 ANION 9 8 9 CA 9.4 9.0 9.5 TPROT -- -- 7.2 ALB -- -- 4.2 TBILI -- -- 0.7 ALKPHOS -- -- 68 AST -- -- 22 ALT -- -- 14 Recent Labs 08/10/2461908/09/24 164 APTT 35.3* 41.5* INR 2.0* 3.0* Recent Labs 08/11/2462908/10/24 0608/09/24 1645 GLUC 110* 114* 119* No results for input(s): LACT in the last 168 hours. Recent Labs 08/11/2430 08/10/24 0608/09/24 1645 BUN 13 12 14 CREAT 0.81 0.75 0.84 CA 9.4 9.0 9.5 MG 1.8 1.8 1.9 Most recent labs Last 14 BP Last 14 Encounter BP Readings: Date: BP: 08/09/2024 117/51 07/18/2024 156/60 06/18/2024 136/78 04/23/2024 170/60 03/26/2024 142/60 12/07/2023 138/62 11/01/2023 142/60 10/06/2023 138/60 09/27/2023 148/60 09/07/2023 162/80 08/25/2023 130/68 07/19/2023 158/60 07/13/2023 138/60 07/11/2023 142/60 Hemoglobin A1C (%) Date Value 08/09/2021 5.6 TSH Date Value Ref Range Status 01/17/2023 2.040 0.270 - 4.200 mIU/L Final HOSPITAL COURSE: Helen Lieberman is a 88 year old female presented with past medical history of HTN, HFpEF, AFIB (on Coumadin), hyponatremia, hx TIA, and GERD who presents with fall, left hip pain. CT scan of left him ruled out acute fracture. Patient does have ansley of hamstring tendon and hematoma. Ortho evaluated patient , did not recommend any surgery. Uric acid level is less than 4 she has chronic hyponatremia consistent with SIADH. PHYSICAL EXAM: BP 117/51 Pulse 52 Temp (Src) 97.3 (Oral) Resp 16 Ht 5' 2 (1.58m) Wt 120 lb 9.5 oz (54.7kg) SpO2 100% BMI 22.05 kg/(m2). O2 Therapy: Room Air Physical Exam Performed GENERAL: Alert, no distress, cooperative NECK: No jugulovenous distention (more content not included)... [facility] 08-10-2024 Telephone encounter Note Tanya Lozano, BRAULIO.COLLEGE ATHLETE Please advise if you are agreeable to signing and following for HHC services? Our Clinicians will be sending the Plan of Care to you for review and approval. They will reach out for any appropriate orders required to provide home care services for the patient. We are not able to initiate HHC services without a following provider. Home care clinicians may also obtain orders from [facility] Thank you and we would be happy to answer any questions. Monika Curry LPN 08/10/2024 4:20 PM [facility] Work Phone: 08-10-2024 Miscellaneous Notes Tanya Lozano, BRAULIO.COLLEGE ATHLETE Please advise if you are agreeable to signing and following for HHC services? Our Clinicians will be sending the Plan of Care to you for review and approval. They will reach out for any appropriate orders required to provide home care services for the patient. We are not able to initiate HHC services without a following provider. Home care clinicians may also obtain orders from [facility] Virtualist Providers Thank you and we would be happy to answer any questions. Monika Curry LPN 08/10/2024 4:20 PM documented in this encounter [facility] 08-10-2024 Note HNO ID: [id number] Author: NEENA SHARP RN Service: Care Management Author Type: Registered Nurse Type: Care Mgt Progress Note Filed: 08/10/2024 16:01 Note Text: CARE MANAGEMENT PROGRESS NOTE SERVICE DATE: 08/10/2024 SERVICE TIME: 2:56 PM LOS: 1 day Needs Prior to Discharge: Home Care Order;OT/PT Evaluation;Other: See Comment (Medical Clearance) [place] of Choice Given: Yes Reason Not Given: Unable to complete with this assessment - revisit Level of Care Discussed: Home Care Financial Disclosure Provided: Yes Provider List: Home Care Provider list within the patient's requested geographic area shared with the patient/family: Yes of zip code: [address] Quality and resource use metrics shared with the patient that are relevant to the patient's goals of care and treatment preferences:: Yes EMR reviewed. PT is recommending Home PT. OT eval is pending. TASNEEM GREEN met with the patient and her grandson Troy at bedside to discuss discharge planning needs. The patient is agreeable to Home Care and indicated she had no preference in provider as long as in network with her insurance. Multiple referrals sent. CM assigned will continue to follow. [address] [place] [address] Home Care can accept. SIGNATURE: Neena Sharp RN PATIENT NAME: Helen Lieberman DATE: August 10, 2024 TIME: 2:56 PM PAGER/CONTACT #: [phone] [facility] 08-10-2024 Note HNO ID: [id number] Author: BINDU GAMA MD Service: Hospital Medicine Author Type: Physician Type: Progress Notes Filed: 08/10/2024 14:41 Note Text: HOSPITAL MEDICINE PROGRESS NOTE Name: Helen Lieberman SERVICE DATE: 08/10/2024 SERVICE TIME: 2:33 PM LOCATION / ROOM: [id number] Hospital Medicine/Primary Attending: Bindu Gama MD, NIGHT AND WEEKEND COVERAGE: [place] COVERAGE: Days: [phone], please page attending physician. Nights: [phone], please page [place] [facility] Night coverage pager [phone]. ASSESSMENT AND PLAN Active Hospital Problems Diagnosis Fall at home, sequela Hx-TIA (transient ischemic attack) Hyponatremia Elevated troponin level Left hip pain Hematoma of left thigh Chronic diastolic CHF (congestive heart failure) (HCC) Grade II diastolic CHF on echo 09/08/2023 GERD (gastroesophageal reflux disease) Atrial fibrillation (HCC) Essential hypertension, benign Hypothyroidism This is a 88 year old female with PMHx of HTN, HFpEF, AFIB (on Coumadin), hx TIA, and GERD who presents with fall, left hip pain. CT scan of left him ruled out acute fracture. Patient does have ansley of hamstring tendon and hematoma. Ortho evaluated patient , did not recommend any surgery Fall at home, sequela Left hip pain Hematoma of left thigh - Patient endorses fall earlier today while in [place] living room on only step where she hit her left hip on a grandfather clock; no syncope, LOC; no pain at present CT left hip: 1. No acute osseous abnormality left hip. 2. Heterogeneity of the left hamstring musculature extending below the included [id number] suggesting hematoma from strain. Unclear tear of the left hamstring tendons MRI left hip: Complete tear of the LEFT proximal conjoint hamstring tendon with extensive intramuscular and perifascial edema/hemorrhage throughout the posterior compartment of the LEFT thigh. 5.5 cm organized hematoma in the proximal semitendinosus muscle with areas of internal nodular enhancement. Given the enhancement, a follow-up MRI in 3-6 months is recommended to ensure resolution of this finding. patient is s/p 5 mg Vit k for reversal of INR PT/OT eval no intervention planned as per ortho OP follow up with ortho Essential hypertension, benign Chronic diastolic CHF (congestive heart failure) - BP 2147/126 on arrival in ED; down to 183/77 s/p Coreg - NTproBNP 815 - Continue home CoregJorgito Started on HCTZ 12.5 mg daily Hypothyroidism:Continue home Synthroid Atrial fibrillation Hold home Coumadin for now Telemetry. Continue Coreg GERD (gastroesophageal reflux disease): protonix Hyponatremia CMP with sodium 129>>> improved to 131 today with hydration Elevated troponin level HS troponin 18 > 17 > 17; stable VTE Prophylaxis: Current Anticoagulants AND Antiplatelets (From admission, onward) None Anticipated discharge date:08/11/24 Patient requiring Hospitalization due to: PT/OT eval Disposition: Home Plan of care discussed with: SUBJECTIVE INTERVAL HPI: Patient complains of pain in left thigh. She is Aox 3. MEDICATIONS: Reviewed Current Facility-Administered Medications Medication Dose Route Frequency Provider Last Rate Last Admin hydroCHLOROthiazide 12.5 mg tab(s) 12.5 mg ORAL DAILY Bindu Gama MD carvedilol 25 mg tab(s) (COREG) 25 mg ORAL BID Vera Olsen PA-C 25 mg at 08/10/24 0848 losartan 100 mg tab(s) (COZAAR) 100 mg ORAL DAILY Vera Olsen PA-C 100 mg at 08/10/[address] 40 mg tab(s) (PROTONIX) 40 mg ORAL DAILY Vera Olsen PA-C 40 mg at 08/10/24 0629 polyethylene glycol 3350 17 g packet 17 g ORAL DAILY Vera Olsen PA-C 17 g at 08/10/24 1118 levothyroxine 75 mcg tab(s) (SYNTHROID) 75 mcg ORAL DAILY (6 AM) Vera Olsen PA-C 75 mcg at 08/10/24 0629 NaCl 0.9% iv flush bag 20 mL INTRAVENOUS PRN Vera Olsen PA-C ondansetron orally disintegrating 4 mg tab(s) (ZOFRAN ODT) 4 mg ORAL q 6 H PRN Vera Olsen PA-C Or ondansetron (PF) 4 mg injection (ZOFRAN) 4 mg INTRAVENOUS q 6 H PRN Vera Olsen PA-C acetaminophen 650 mg tab(s) (TYLENOL) 650 mg ORAL q 6 H PRN Vera Olsen PA-C 650 mg at 08/10/24 0848 iv contrast (radiology procedure) INTRAVENOUS DIRECTED PRN Vera Olsen PA-C OBJECTIVE PHYSICAL EXAM: BP 155/76 Pulse 51 Temp (Src) 98.1 (Oral) Resp 18 Ht 5' 2 (1.58m) Wt 115 lb 8.3 oz (52.4kg) SpO2 100% BMI 21.12 kg/(m2). O2 Therapy: Room Air GENERAL: Alert, no distress, cooperative SKIN: Skin color normal. No rashes or lesions. EYES: PERRLA, EOMI NECK: No jugulovenous distention, LUNGS: Lungs clear to auscultation, Good diaphragmatic excursion CARDIAC: Normal S1 and S2; no rubs, murmurs, or gallops ABDOMEN: Abdomen soft, non-tender, BS normal, No masses or organomegaly EXTREMITIES: Extremities normal, no deformities, edema, No ulcers NEURO: Gait normal. Refle (more content not included)... [facility] 08-10-2024 Note HNO ID: [id number] Author: NEENA SHARP RN Service: Care Management Author Type: Registered Nurse Type: Care Mgt Initial Assessment Filed: 08/10/2024 11:59 Note Text: CARE MANAGEMENT: ASSESSMENT AND DISCHARGE PLAN SERVICE DATE: August 10, 2024 SERVICE TIME: 11:46 AM PCP: Tanya Lozano APRN.CNP Primary Contact: Extended Emergency Contact Information Primary Emergency Contact: Earl Lieberman Mobile Relation: Son Admission Status: Inpatient Insurance Provider: [facility] MEDICARE ADVANTAGE PPO Discharge Planning requested by: Per Department Practice Potential Transition Plans Home;Home Care;Home OT/PT;Alf Facility/Intermediate Care Facility;To Be Determined Advance Directives Current Advance Directive: Health Care Power of Orthotist In Chart: No Current Living Arrangements and Support Lives with: Family members Type of Residence: Private Residence (House) Does the patient have to climb stairs at home?: stairs within the home Support: Children, Family members How do you manage to accomplish the following: Independent: Ambulation;Bathe/Shower;Dress;Me als/Meal Prep;Going to the bathroom;Medication Management;Transportation to appointments/community Current Services/Equipment Current Post-Acute Service(s): DME Current DME Type: Grab bars Discharge Planning Patient Goal(s): Be able to go home, General wellness, Less pain, Better mobility [place] of Choice Explained: [place] of Choice Given: No Reason Not Given: Unable to complete with this assessment - revisit Are you interested in bedside delivery of your medications? No, preferred community Pharmacy is [facility]. Discharge Planning Participant(s): Patient Caregiver Assessment: Caregiver is ready, willing and able to meet the patient's needs as recommended by the inter-professional team: Other: See Comment (TBD) Transport at Discharge: Transportation Arrangements: To Be Determined Needs Prior to Discharge: Needs Prior to Discharge: To Be Determined;Accepting Facility;Facility or Agency Choices;Home Care Order;OT/PT Evaluation;Precertification;Othe r: See Comment (Medical Clearance) Post-Acute Discharge Plan: EMR reviewed and CM assessment complete. 88 year old patient admitted s/p fall at home. RN CM met with the patient at bedside to discuss discharge planning needs. She reportedly lives in her own home and was 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. Her grandson lives with her. The patient denies use of DME at baseline. States she still drives. PT and OT evals are pending. CM assigned will continue to follow. SIGNATURE: Neena Sharp RN PATIENT NAME: Helen Lieberman DATE: August 10, 2024 TIME: 11:46 AM CONTACT #: [phone] [facility] 08-09-2024 Note HNO ID: [id number] Author: LIV LYNN RT(R) Service: ? Author Type: Technologist Type: Progress Notes Filed: 08/09/2024 17:38 Note Text: Radiology Service Progress Note PATIENT NAME: Helen Lieberman DATE OF SERVICE: August 09, 2024 TIME: 5:38 PM PATIENT IDENTITY VERIFICATION COMPLETED USING TWO (2) IDENTIFIERS: Name and Date of confirmed by patient verbally and Name and Date of confirmed by identification band. FALL SCREENING: Has the patient had 2 falls in the last year or 1 fall with injury or currently using an Ambulatory Assistive Device (Walker, Cane, Wheelchair, Crutches, etc.)? Emergency Room Patient: Screened in ED PATIENT GENDER DATA: Female. status: : No status: NO. PATIENT RELEVANT IMPLANT DATA REVIEWED: Not Applicable PATIENT PRESENTS WITH AN IMPLANTABLE OR ATTACHED LAB SCIENTIST: No RADIOLOGY DEPARTMENT: General X-ray: Exam(s) Completed: Chest X-Ray Pelvis X-Ray: Pelvis with Hip Left Lower Extremity X-Ray(s): Femur, Left PERIPHERAL IV DATA: Not applicable SIGNED BY: RT Mari(R) August 09, 2024 5:38 PM [facility] 07-18-2024 Note HNO ID: [id number] Author: CORRINE BIRMINGHAM LPN Service: ? Author Type: LICENSED NURSE Type: Progress Notes Filed: 07/18/2024 09:34 Note Text: Pt in office for INR check. Pt INR 2.3 today 07/18/2024. Pt currently taking 2 mg on Sundays and 3 mg all other days. Last INR 2.4 on 06/18/2024. 1st bp today 07/18/2024 154/62 2nd bp 156/60 Pt states that she has not taken her medication yet today. Per Tanya Lozano CNP pt to continue same dosage and follow up in 1 month. Pt to take medication for bp when she gets home. Pt aware and verbalized an understanding. Corrine Birmingham LPN [facility] 07-18-2024 History of Presen t illness Narrative Pt in office for INR check. Pt INR 2.3 today 07/18/2024. Pt currently taking 2 mg on Sundays and 3 mg all other days. Last INR 2.4 on 06/18/2024. 1st bp today 07/18/2024 154/62 2nd bp 156/60 Pt states that she has not taken her medication yet today. Per Tanya Lozano CNP pt to continue same dosage and follow up in 1 month. Pt to take medication for bp when she gets home. Pt aware and verbalized an understanding. Corrine Birmingham LPN documented in this encounter [facility] 06-18-2024 History of Presen t illness Narrative Pt in office for INR check. INR today 06/18/2024 2.4. Last INR 1.9 on April 23, 2024. Bp today was 138/78 and recheck 136/78. Pt is currently taking 2 mg on Sundays and 3 mg on all other days. Per Tanya Lozano COLLEGE ATHLETE continue taking warfarin 2 mg on Sundays and 3 mg all other days. Recheck INR in 1 months. Pt aware and verbalized an understanding. Corrine Birmingham LPN. documented in this encounter [facility] 06-13-2024 Telephone encounter Note Patient dropped off a statement of Physician form that needs to be filled out by Tanya Lozano. Patient will pickup this completed form when she comes in for a nurse visit on 06/18/24. Form placed in [employer] folder in front office. Kayla Zapien [facility] 06-13-2024 Miscellaneous Notes Patient dropped off a statement of Physician form that needs to be filled out by Tanya Lozano. Patient will pickup this completed form when she comes in for a nurse visit on 06/18/24. Form placed in [employer] folder in front office. Kayla Zapien documented in this encounter [facility] 05-30-2024 Telephone encounter Note Left message on patients voicemail with all information. Carlos Gonzáles MA [facility] 05-30-2024 Miscellaneous Notes Left message on patients voicemail with all information. Carlos Gonzáles MA ----- Message from Tanya Lozano APRN.COLLEGE ATHLETE sent at 05/28/2024 9:02 AM EDT ----- [facility], recheck one month, continue current dose documented in this encounter [facility] 05-30-2024 Telephone encounter Note ----- Message from Tanya Lozano APRN.COLLEGE ATHLETE sent at 05/28/2024 9:02 AM EDT ----- [facility], recheck one month, continue current dose [facility] 05-07-2024 History of Presen t illness Narrative Pt here for her INR pts Previous INR 1.9 Pts current dose 2 mg Tuesday 3 mg the rest of the week Pts INR today 2.3 Instructed pt to continue current dose recheck in 1 month Jennifer Guillaume MA documented in this encounter [facility] 04-23-2024 History of Presen t illness Narrative Pt here for her INR pts Previous INR 1.9 Pts current dose 2 mg Sun,Tu, 3 mg the rest of the week Pts INR today 1.9 Per CN instructions pt to take 2 mg Sun 3 mg the rest of the week recheck on 04/06/24 Jennifer Guillaume MA documented in this encounter [facility] 04-09-2024 Telephone encounter Note Patient requesting refills as follows: Last Office Visit 10/06/23 NOV none. Last Refill N/A. Requested Prescriptions Pending Prescriptions Disp Refills carvedilol (COREG) 12.5 mg tablet Sig: Take 2 tablets by mouth two times a day. TAKE WITH FOOD. Please review and advise. Nicole Foreman MA [facility] 04-09-2024 Miscellaneous Notes Patient requesting refills as follows: Last Office Visit 10/06/23 NOV none. Last Refill N/A. Requested Prescriptions Pending Prescriptions Disp Refills carvedilol (COREG) 12.5 mg tablet Sig: Take 2 tablets by mouth two times a day. TAKE WITH FOOD. Please review and advise. Nicole Foreman MA documented in this encounter [facility] 03-26-2024 History of Presen t illness Narrative Pt here for her INR pts Previous INR 1.9 Pts current 3 mg , ,Sat 2 mg the rest of the week Pts INR today 1.9 Per CN 3mg Mon,Tue,Tue,Sat 2 mg the rest of the week recheck in 3 weeks Jennifer Guillaume MA documented in this encounter [facility] 03-06-2024 Miscellaneous Notes Last OV 10/06/23 Labs 09/07/23 Patient phones requesting refills as follows: Requested Prescriptions Pending Prescriptions Disp Refills oxybutynin XL (DITROPAN XL) 5 mg 24 hr tablet 90 tablet 3 Sig: Take 1 tablet by mouth once daily. pantoprazole DR (PROTONIX) 40 mg tablet 90 tablet 3 Sig: Take 1 tablet by mouth once daily. losartan (COZAAR) 100 mg tablet 90 tablet 3 Sig: Take 1 tablet by mouth once daily. Please review and advise. Jennifer Guillaume MA documented in this encounter [facility] 03-06-2024 Telephone encounter Note Last OV 10/06/23 Labs 09/07/23 Patient phones requesting refills as follows: Requested Prescriptions Pending Prescriptions Disp Refills oxybutynin XL (DITROPAN XL) 5 mg 24 hr tablet 90 tablet 3 Sig: Take 1 tablet by mouth once daily. pantoprazole DR (PROTONIX) 40 mg tablet 90 tablet 3 Sig: Take 1 tablet by mouth once daily. losartan (COZAAR) 100 mg tablet 90 tablet 3 Sig: Take 1 tablet by mouth once daily. Please review and advise. Jennifer Guillaume MA [facility] 02-06-2024 History of Presen t illness Narrative Pt here for her INR pts Previous INR 2.0 Pts current dose 3 mg Tu,Th,Sat 2 mg the rest of the week Pts INR today 2.1 Pt to continue her current dose and recheck in 1 month Jennifer Guillaume MA documented in this encounter [facility] 01-20-2024 Telephone encounter Note Last OV 10/06/23 Apt 02/07/24 Labs 01/17/23 Pt will be due for labs at next OV Pharmacy calls in requesting the following refill(s): Requested Prescriptions Pending Prescriptions Disp Refills levothyroxine (SYNTHROID) 75 mcg tablet [Pharmacy Med Name: levothyroxine 75 mcg tablet] 270 tablet 0 Sig: TAKE 1 TABLET BY MOUTH IN THE MORNING ON AN EMPTY STOMACH Jennifer Guillaume MA [facility] 01-20-2024 Miscellaneous Notes Last OV 10/06/23 Apt 02/07/24 Labs 01/17/23 Pt will be due for labs at next OV Pharmacy calls in requesting the following refill(s): Requested Prescriptions Pending Prescriptions Disp Refills levothyroxine (SYNTHROID) 75 mcg tablet [Pharmacy Med Name: levothyroxine 75 mcg tablet] 270 tablet 0 Sig: TAKE 1 TABLET BY MOUTH IN THE MORNING ON AN EMPTY STOMACH Jennifer Guillaume MA documented in this encounter [facility] 01-11-2024 Miscellaneous Notes Called pt left VM with results and instructions for her coumadin Jennifer Guillaume MA ----- Message from Tanya Lozano APRN.COLLEGE ATHLETE sent at 01/11/2024 7:21 AM EDT ----- Wnr- continue current dose recheck 1 month documented in this encounter [facility] 01-10-2024 Miscellaneous Notes Called pt can you please sign standing order she will get her INR checked at [facility] she is there with her documented in this encounter [facility] 12-07-2023 History of Presen t illness Narrative Pt here for her INR pts Previous INR 1.9 Pts current dose 3 mg Thurs,Tues 2 mg the rest of the week Pts INR today 1.9 Per CN pt to take 3 mg Tues,Thurs,Sat 2 mg the rest of the week Jennifer Guillaume MA documented in this encounter [facility] 11-30-2023 History of Presen t illness Narrative Patient identified by name and . Patient came in for nurse visit for INR. Last INR was 2.1 on . today patients INR was 1.9. per Dee Gonzalez. Patient is to continue same dose and repeat in one week. Carlos Gonzáles MA documented in this encounter [facility] 11-01-2023 History of Presen t illness Narrative Pt here for her INR pts Previous INR 2.5 Pts current dose 3 mg Tues and Thurs Pts INR today 2.1 Instructed pt to continue her current dose recheck in 1 month Jennifer Guillaume MA documented in this encounter [facility] 09-12-2023 Miscellaneous Notes Last OV 36 Apt 10/06/23 Labs 08/25/23 Pharmacy calls in requesting the following refill(s): Requested Prescriptions Pending Prescriptions Disp Refills warfarin (COUMADIN) 3 mg tablet [Pharmacy Med Name: warfarin 3 mg tablet] 90 tablet 3 Sig: take 1 tablet by mouth daily as directed Jennifer Guillaume MA documented in this encounter [facility] 09-07-2023 History of Past i llness Narrative Problem Noted Date Diagnosed Date Resolved Date Syncope 09/07/2023 09/08/2023 Syncope and collapse 09/07/2023 023 documented as of this encounter (statuses as of 09/13/2023) [facility] History of Past illness Narrative* Problem Noted Date Diagnosed Date Resolved Date Syncope 09/07/2023 09/08/2023 Syncope and collapse 09/07/202309/08/2 023 documented as of this encounter (statuses as of 11/01/2023) [facility] of Past illness Narrative* Problem Noted Date Diagnosed Date Resolved Date Syncope 09/07/2023 09/08/2023 Syncope and collapse 09/07/202309/08/2 023 documented as of this encounter (statuses as of 11/30/2023) [facility] of Past illness Narrative* Problem Noted Date Diagnosed Date Resolved Date Syncope 09/07/2023 09/08/2023 Syncope and collapse 09/07/202309/08/2 023 documented as of this encounter (statuses as of 12/07/2023) [facility] of Past illness Narrative* Problem Noted Date Diagnosed Date Resolved Date Syncope 09/07/2023 09/08/2023 Syncope and collapse 09/07/2023 023 documented as of this encounter (statuses as of 01/11/2024) [facility] of Past illness Narrative* Problem Noted Date Diagnosed Date Resolved Date Syncope 09/07/2023 09/08/2023 Syncope and collapse 09/07/2023 023 documented as of this encounter (statuses as of 01/12/2024) [facility] History of Present illness Narrative* Charisse Lange MA - 08/25/2023 2:01 PM EST Patient here for INR check. Last INR was 2.3 on 07/19/23. Patient is currently taking coumadin 2 mgTuesday, and 3 mg all other days. Patient states earlier this month she had a nose bleed that lasted 10 minutes and then this morning she had another one that lasted 10 minutes and then after lunch today she blew her nose and had another nose bleed. Patient states she uses a dehumidifier and has electric heat. Patient's INR today was 2.4. Per conversation with Tanya Lozano COLLEGE ATHLETE advised patient to continue current dose and recheck in 1 month and advised that Tanya does not think hernose bleeds are from her blood thinner and are probably because as we age the mucosa in the nose thins and with the dry winter air it can cause nose bleeds. Advised Tanya recommends getting a humidifier instead of a dehumidifier and using a saline nasal spray to help moisten the nasal passages. Advised if she would develop more frequent nose bleeds or any unusual bruising to let us know. Patien t verbalized understanding Charisse Lange MA [facility] Miscellaneous Notes* Telephone Encounter - Jennifer Guillaume MA - 08/10/2023 2:29 PM EST Called pt let her know the results Jennifer Guillaume MA * Telephone Encounter - Jennifer Guillaume MA - 08/10/2023 2:28 PM EST ----- Message from Tanya Lozano APRN.COLLEGE ATHLETE sent at 08/09/2023 4:20 PM EST ----- Normal mammogram IMPRESSION IMPRESSION: NEGATIVE There is no mammographic evidence of malignancy. A 1 year screening mammogram is recommended. [facility] Miscellaneous Notes* Letter - Coordinator, Mammography - 08/09/2023 4:15 PM EST [address] [address] August 10, 2023 PID: [id number] Helen Lieberman [address] [place] [address] Dear Ms. Lieberman, We are pleased to inform you that the results of your recent breast imaging exam on 08/09/2023 are normal. Early detection of cancer is very important. We also understand recommendations regarding breast cancer screening are controversial. Please discuss with your primary care provider which strategy is best for you and whether a mammogram is right for you. Your imaging studies and report will be kept on file at [facility] as part of your permanent medical record and are available for your continuing care. Thank you for allowing us to help in meeting your health care needs. Sincerely, Dr. Moore Interpreting Radiologist [facility] (Normal over 40) documented in [facility]11[facility]23 Miscellaneous Notes* Telephone Encounter - Jennifer Guillaume MA - 08/09/2023 11:27 AM EST Called pt let her know the results reviewed the side effects and how to take the medication with ptshe is willing to try the fosamax Jennifer Guillaume MA Patient phones requesting refills as follows: Requested Prescriptions Pending Prescriptions Disp Refills alendronate (FOSAMAX) 70 mg tablet 12 tablet 1 Sig: Take 1 tablet by mouth one time a week. In am with glass of water, on a empty stomach, nothingby mouth or lying down for 60 minutes Please review and advise. Jennifer Guillaume MA * Telephone Encounter - Jennifer Guillaume MA - 08/09/2023 11:27 AM EST ----- Message from Tanya Lozano APRN.COLLEGE ATHLETE sent at 08/08/2023 1:11 PM EST ----- Bone density shows osteoporosis and significant decrease in hip since last test. She is at 17.8%/high risk for fracture. I would recommend starting on fosamax. Any issues with her jaw or hx of osteonecrosis of jaw. She does have GERD which these medications can worsen. Hx hiatal hernia?. If not we can trial it and she would have to follow strict guidelines on how to take. [facility] History of Present illness Narrative* Rebecca Chapin RT(R) - 08/03/2023 10:30 AM EST Radiology Service Progress Note PATIENT NAME: Helen Lieberman DATE OF SERVICE: August 03, 2023 TIME: 10:59 AM PATIENT IDENTITY VERIFICATION COMPLETED USING TWO (2) IDENTIFIERS: Name and Date of confirmedby patient verbally. FALL SCREENING: Has the patient had 2 falls in the last year or 1 fall with injury or currently using an Ambulatory Assistive Device (Walker, Cane, Wheelchair, Crutches, etc.)? No PATIENT GENDER DATA: Female. status: : No status: N/A PATIENT RELEVANT IMPLANT DATA REVIEWED: Not Applicable RADIOLOGY DEPARTMENT: Bone Density PERIPHERAL IV DATA: Not applicable SIGNED BY: RT Pilar(R) August 03, 2023 10:59 AM documented in [facility] History of Present illness Narrative* Jennifer Guillaume MA - 08/01/2023 6:38 AM EST Pt here for her INR pts Previous INR 2.5 Pts current Dose 2 mg Tues,Thurs 3 mg the rest of the week Pts INR today 2.3 Pt to continue her current dose and recheck in 1 month Jennifer Guillaume MA documented [facility] Instructions* Patient Instructions* Tanya Lozano APRN.COLLEGE ATHLETE - 07/19/2023 8:50 AM EDT Screening schedule The following prevention plan is recommended: There are no preventive care reminders to display for this patient. WHAT YOU CAN DO TO PREVENT FALLS Many falls can be prevented. By making some changes, you can lower your chances of falling. Four things YOU can do to prevent falls for you* and your caregiver 1. Begin a regular exercise program Exercise is one of the most important ways to lower your chances of falling. It makes you stronger and helps you feel better. Exercises that improve balance and coordination (like George Chi) are the most helpful. Lack of exercise leads to weakness and increases your chances of falling. Ask your doctor or health care provider about the best type of exercise program for you. 2. Have your health care provider review your medicines Have your doctor or pharmacist review all the medicines you take, even iesc-sej-qenycse medicines. As you get older, the way medicines work in your body can change. Some medicines, or combinations of medicines, can make you sleepy or dizzy andcan cause you to fall. 3. Have your vision checked Have your eyes checked by an eye doctor at least once a year. You may be wearing the wrong glasses or have a condition like glaucoma or cataracts that limits your vision. Poor vision can increase your chances of falling. 4. Make your home safer About half of all falls happen at home. To make your home safer: Remove things you can trip over (like papers, books, clothes, and shoes) from stairs and places where you walk. Remove small throw rugs or use double-sided tape to keep the rugs from slipping. Keep items you use often in cabinets you can reach easily without using a step stool. Have grab bars put in next to your toilet and in the tub or shower. Use non-slip mats in the bathtub and on shower floors. Improve the lighting in your home. As you get older, you need brighter lights to see well. Hang light-weight curtains or shades to reduce glare. Have handrails and lights put in on all staircases. Wear shoes both inside and outside the house. Avoid going barefoot or wearing slippers. For more information, contact: Centers for Disease Control and Prevention www.cdc.gov/injury * This information may not apply if you have certain medical conditions. BONE MINERAL DENSITY PATIENT INSTRUCTIONS Bone mineral density testing measures the amount of calcium in certain parts of your bones. This information determines how strong your bones are. The test is used to detect osteoporosis, a disease in which the bone's mineral content and density are low, increasing a person's risk of fractures. Thelumbar spine (lower back) and the hip are the skeletal sites usually examined. For the test, remember that: 1. You cannot take this test if you are . 2. Eat a normal diet on the day of the test. 3. Take your medications as you normally would. 4. DO NOT take calcium supplements (such as Tums) for 24 hours before the test. 5. On the day of the test, leave valuables (jewelry or credit cards) at home. 6. The test should be performed prior to oral, rectal or IV contrast studies, or at least 7 days after any of these studies. For the test, you may be asked to wear a hospital gown. You will lie on your back, on a padded table, in a comfortable position. Generally, you can resume your usual activities immediately. documented in this encounter[facility]10[facility] History of Present illness Narrative* Tanya Lozano APRN.RUBIO - 07/19/2023 8:49 AM EDT Helen Lieberman is a 87 year old female here for a Medicare wellness visit. PMH HTN, afib, GERD, hypothyroidism, TIA. Patient denies changes in health since last office visit. Reports feeling well. Denies concerns or complaints today. I reviewed her past medical, surgical, social, and family histories today and updated chart. Allergies, chronic medications, and supplements were also reviewed and her list is now up to date. Preventative: she is not interested in any vaccines. Declines flu and pneumonia vaccines today. Medicare Health Risk Assessment General Health Good Exercise: Minutes/Day 0 min Exercise: Days/Week 0 days Alcohol: Daily Use Never Alcohol: Drinks/Day Patient does not drink Alcohol: 6 or more drinks Never Feel off balance Most days, reports fell 2 months ago. She has learned to move slowly. Concerns: Teeth/Dentures Dentures, Concerns: Sexual function No Troubled by feelings Yes due to her husbands health. Reports GS lives with her for support. He helps her with everything. Frequency: Eating healthy diet Everyday. Eats fresh fruits and vegies daily ADLs requiring help None, Safety precautions in home/vehicle She is working on [employer] shower safety bar. She wears seat belt. Does not have throw rugs, she had night lights in home. Smoke, vape, chews tobacco denies Difficulty hearing Good Difficulty seeing Wears glasses Current Providers Specialists: I have reviewed specialist-related care of the patient in the medical record. Current care team: Patient Care Team: Tanya Lozano APRN.COLLEGE ATHLETE as PCP - General (Internal Medicine) Tomeka Gore MD (Nephrology) Andreas Casillas MD (Gastroenterology) Medical/Family history review Reviewed and updated problem list, medical/surgical/family/social history, medications, and allergies. Opioid use review Opioid Medications (last 90 days) Some values may be hidden. Unless noted otherwise, only the newest values recorded on each date aredisplayed. Opioid Medications No data to display. Depression screening Depression Screening PHQ-2 Score PHQ-9 Score ZAID-2 Total Score ZAID-7 Total Score Score (Questions 1& 2) Total Score (All Questions) 07/19/2023 2 4 2 7 - - Depression screening tool completed and reviewed. Based on score and interview, patient is at risk for depression. Screening tool discussed with patient, and I recommended no further intervention at this time. Time spent in depression screening and assessment: < 5 minutes. Cognitive screening 5/5, normal cognitive function. Functional Observation Was the patient's timed Up & Go test unsteady or ? 12 seconds? No Advance Care Planning Surrogate decision maker and/or advance care plan documented. Her Vivek is currently her DPOA but her forms need updating to have her Son Earl Lieberman and her GS Troy Lieberman. Measurements 07/19/23 0813 07/19/23 0854 BP: 190/80 158/60 BP Site: Left Arm BP Position: Sitting BP Cuff Size: Regular Adult Pulse: (!) 55 Resp: 18 Temp: 36.8 C (98.2 F) TempSrc: Oral SpO2: 100% Weight: 56.7 kg (125 lb) Height: 154.9 cm (5' 1) Vision screenin/40 right, 20/50 left and 20/40 bilaterally. Hearing wnl. Additional screenings: No results found. Assessment/Plan Medicare annual wellness visit, subsequent (Z00.00) - Counseled on healthy diet and regular exercise - Fall avoidance information provided - Personalized prevention plan provided ASSESSMENT/PLAN: 1. Medicare annual wellness visit, subsequent - ICD9: V70.0, ICD10: Z00.00 - Counseled on healthy diet and regular exercise - Calcium intake with supplements or by diet of 1000 mg/day for under 50, 1200- 1500 mg/day for 50+ - Bone mineral density ordered - Depression screening tool completed and reviewed with patient. Based on score and interview, patient is at risk for depression and recommended no further intervention at this time. - Patient was counseled [id number] by myself (the billing provider) for the following immunizations and vaccine components, including side effects: Influenza and Pneumococcal . Pt declines - Follow up for annual exam in one year Tanya Lozano APRN.COLLEGE ATHLETE documented in [facility] encounter[facility]10[facility]23 Miscellaneous Notes* Telephone Encounter - Jennifer Guillaume MA - 07/14/2023 4:22 PM EDT Patient phones requesting refills as follows: Requested Prescriptions Pending Prescriptions Disp Refills warfarin (COUMADIN) 2 mg tablet 90 tablet 1 Sig: Take 1 tablet by mouth daily as directed. Please review and advise. Jennifer Guillaume MA documented in this encounter[facility]10-[facility]23 History of Present illness Narrative* Jennifer Guillaume MA - 07/13/2023 12:17 PM EDT Pt here for her INR pts Previous INR 3.8 Pts current Pts INR today 2.5 Per CN pt to take 2 mg Tues,Thurs 3 mg the rest of the week Jennifer Guillaume MA documented in this encounterW[facility]10[facility]23 History of Present illness Narrative* Jennifer Guillaume MA - 07/11/2023 1:25 PM EDT Called pt let her know the instructions Jennifer Guillaume MA * Tanya Lozano APRN.CNP - 07/11/2023 12:10 PM EDT Hold today and tomorrow recheck Tuesday am. * Jennifer Guillaume MA - 07/11/2023 8:40 AM EDT Pt here for her INR pts Previous INR 3.0 Pts current dose 3 mg Pts INR today 3.8 Please advise of further instructions Jennifer Guillaume MA documented in this encounter[facility]09[facility] History of Present illness Narrative* Jennifer Guillaume MA - 06/15/2023 8:21 AM EDT Pt here for her INR pts Previous INR 3.4 Pts current dose she held on 06/08/23 3 mg the rest of the week Pts INR today 2.5 Per CN pt to continue her current dose recheck in 2 weeks Jennifer Guillaume MA documented in this encounter[facility] History of Present illness Narrative* Jennifer Guillaume MA - 06/08/2023 1:24 PM EDT Pt here for her INR pts Previous INR 2.9 Pts current dose 3mg daily 4mg Pts INR today 3.4 Per CN pt to hold coumadin today and take 3 mg daily and recheck in 1 week Jennifer Guillaume MA documented in this encounter[facility]08[facility]23 History of Present illness Narrative* Jennifer Guillaume MA - 05/05/2023 8:20 AM EDT Pt here for his INR pts Previous INR 2.3 Pts current dose 4 mg Thurs 3 mg the rest of the week Pts INR today 2.9 Instructed pt to continue current dose and recheck in 1 month Jennifer Guillaume MA documented in this encounter[facility]05-[facility]23 History of Present illness Narrative* Jennifer Guillaume MA - 02/02/2023 8:36 AM EDT Pt here for her INR pts Previous INR 2.4 Pts current 4 mg Thurs 3 mg the rest of the week Pts INR today 2.8 Instructed pt to continue her current dose and recheck in 1 month Jennifer Guillaume MA documented in this encounterW[facility]05-01-2023 Miscellaneous Notes* Telephone Encounter - Jennifer Guillaume MA - 01/24/2023 9:08 AM EDT Called pt let her know the results pt stated she has tried a statin in the past and she can not tolerate the cramping and she will not try them again. I did mention Zetia to pt she will think about that Jennifer Guillaume MA * Telephone Encounter - Jennifer Guillaume MA - 01/19/2023 3:26 PM EDT Called pt left VM for pt to call the office back for results Jennifer Guillaume MA * Telephone Encounter - Jennifer Guillaume MA - 01/19/2023 3:26 PM EDT ----- Message from Tanya Lozano APRN.COLLEGE ATHLETE sent at 01/19/2023 6:39 AM EDT ----- Vit d wnl * Telephone Encounter - Jennifer Guillaume MA - 01/19/2023 3:26 PM EDT ----- Message from Tnaya Lozano APRN.COLLEGE ATHLETE sent at 01/17/2023 1:24 PM EDT ----- Cmp- sugar stable Lipids are all elevated especially her bad chol LDL. I would recommend a statin to lower her CV risk. Tsh wnl [facility] History of Present illness Narrative* Charisse Lange MA - 01/17/2023 11:43 AM EDT ED Follow Up: Patient discharged from [facility] ED on 01/14/23. 1. How are you feeling since your ED visit? Spoke with patient and she states she is doing good since ER visit Have your symptoms improved or resolved? Yes 2. Were you prescribed any medications while in the ED or advised to stop any medication? No - If yes, were you able to fill your prescriptions? Not applicable -if stopped medication, what was the medication? N/A 3. Were you advised to schedule a follow up appointment with your provider? Yes - If no, Do you feel like you need an appointment scheduled? Not applicable - If yes, Do you need this scheduled now or has this already been scheduled? No 4. Were you able to contact the office or board of education secretary provider prior to your ED visit? Not applicable 5. Is there anything else I can do for you today? No Charisse Lange MA documented in this encounterW[facility]04-20-[facility]23 History of Present illness Narrative* Tanya Lozano, STREET ROLLER ENGINEER.COLLEGE ATHLETE - 01/13/2023 7:48 AM EDT SUBJECTIVE: Helen Lieberman is a 87 year old female who presents in follow up of HTN. PMH hypothyroidism, afib, GERD, pancreatitis, urinary incontinence, IBS. Patient denies changes in health since last office visit. Reports feeling well. Denies concerns or complaints today. She was seen last wek for muscle jerking. Pt reports it happened each time she had taken tylenol sinus. States she had stopped taking this and has not had any more episodes of one sided muscle jerking. She had normal neuro exam and has CT scheduled 01/18/23. I reviewed her past medical, surgical, social, and family histories today and updated chart. Allergies, chronic medications, and supplements were also reviewed and her list is now up to date. HTN: Ms. Lieberman indicates that she is feeling well and denies any symptoms referable to elevated blood pressure. Specifically denies headache, chest pain, palpitations, dyspnea, peripheral edema, claudication symptoms, orthopnea, fatigue, and PND. Patient denies any side effects of her medication(s) and is compliant with their regimen. She does check BP's away from this office with average BP's in the 140s/60-70s range. Helen has limited mobility and can not participate in aerobic exercise. She watches her diet for sodium, low fat and low cholesterol most of the time. She is taking [id number] mg daily and coreg 12.5 mg twice daily. Last 3 Encounter BP Readings: Date: BP: 01/13/2023 140/60 01/06/2023 148/60 01/03/2023 170/70 Hyponatremia: She is seeing wanigan clerk Dr Ruiz for management for this. Afib: reports being dx 16 yrs ago. She reports taking propranolol for mangement and this has been working well for her. She also takes asa daily. She reports she was never told to take asa or blood thinner but she started taking this on his own. She reports never seeing heart doctor. She reports ifjoselyn misses her medication she can feel it but otherwise she is asymptomatic. GERD: chronic stable. She is on Protonix daily for this. She sees Dr Casillas for this. Her last EGD was in February. Reports well controlled on Protonix Hypothyroidism: reports dx years ago. She is taking levothyroxine 75 mcg daily on an empty stomach.Denies symptoms referable to thyroid. Last TSH 08/09/21 1.69 Urinary incontinence: she is taking ditropan daily for this and reports it controls her symptoms. Denies any symptoms of incontinence IBS: chronic, reports episodic flare ups. She has tried Low FODMAP diet. She does see Dr Casillas as well for this. He did give her rx for levsin. She reports this as stable Pancreatitis: She did have ERCP with stent placement on 08/07/21 for biliary obstruction at [facility]. Reports she has had 3 ERCPs. First was with Bon 06/02/21, second was with Dr Casillas nd Dr Vazquez 08/07. Had TIA 08/09/21. Reports base weight loss since May. Her usual weight 135 lbs she was at this wt in April prior toeverything happening with her pancrease and bile duct. TIA: patient presented to the ER for evaluation of sudden onset dizziness with speech difficulties s/p pancreatic stent placment on 08/07/21. Symptoms completely resolved upon arrival to the ER. VS on arrival HR 68, BP 206/90, RR 17. Na 128, Cr 0.85, Glucose 117, ALT 92, AST 55, NT ProBNP 966, HS Troponin T 20. CBC unremarkable. 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 We did repeat CT brain that wasnegative for acute abnormality. US carotids showed moderate volume bilateral plaque but less than 30% stenosis bilateral internal carotid arteries. ECHO completed and negative for PFO or atrial thromb us. Suspect she had a TIA. She was started on DAPT with ASA and Plavix and Crestor 10mg daily (had intolerance to statins in the past). Neurology recommended ASA + Anticoagulation but the patient washesitant given recent ERCP and advisement to avoid blood thinners,and after discharge She started coumadin as previously recommended by stroke Neurologist in the hospital , She is allergic to statins cannot take statin ,even the small dose of Crestor caused stomach problems She denies new headaches, neck or back pain. No new focal weakness, numbness or paresthesias. No new problems with concentration, memory, language or confusion. No new blurry, double or loss of vision, No new imbalance, frequent falls or incoordination. No bowel or bladder incontinence. No saddle anesthesia. No muscular atrophy or fasciculations. Preventative: last colonoscopy 07/[address] Casillas. She has reviewed both covid vaccines and booster. She is not interested in flu vaccine. Reports she has never had one. Last bone density 08/26/21. Never smoked. Reports was getting mammograms until this year. She is not interested in this right now. Reports family hx of breast cancer and that is why she was getting them yearly. Some elements of above documentation were copied from my progress note of 07/15/22 and have been reexamined and updated where appropriate. All elements reflect the current assessment and medical decision making today . PAST MEDICAL HISTORY Diagnosis Date Atrial fibrillation (HCC) 07/29/2021 Essential hypertension Gallstone pancreatitis Pancreatitis PAST SURGICAL HISTORY Procedure Laterality Date SECTION HX x4 FOOT SURGERY HX right side HERNIA REPAIR HX KNEE SURGERY HX Right REMOVAL GALLBLADDER Social History Tobacco Use Smoking status: Never Smokeless tobacco: Never Substance Use Topics Alcohol use: Yes Comment: Rarely Drug use: Never Family history reviewed. ALLERGIES Allergen Reactions Penicillins Unknown Sulfa (Sulfonamide * Unknown Tetracyclines Unknown Current Outpatient Medications Medication Sig pantoprazole DR (PROTONIX) 40 mg tablet Take 1 tablet by mouth once daily. oxybutynin XL (DITROPAN XL) 5 mg 24 hr tablet Take 1 tablet by mouth once daily. losartan (COZAAR) 100 mg tablet Take 1 tablet by mouth once daily. levothyroxine (SYNTHROID) 75 mcg tablet Take 1 tablet by mouth daily before breakfast. warfarin (COUMADIN) 4 mg tablet Take 1 tablet by mouth once daily. hyoscyamine sublingual (LEVSIN SL) 0.125 mg TAKE 1 TABLET UNDER THE TONGUE EVERY 6 HOURS NEEDED warfarin (COUMADIN) 3 mg tablet TAKE 1 TABLET BY MOUTH DAILY DIRECTED carvedilol (COREG) 12.5 mg tablet Take 25 mg by mouth twice daily. TAKE WITH FOOD. aspirin 81 mg cap Take by mouth. polyethylene glycol 3350 (MIRALAX, GLYCOLAX) 17 gram packet Take 17 g by mouth once daily. Dissolvedose in 4 - 8 ounces of liquid and take as directed. Cholecalciferol, Vitamin D3, (VITAMIN D-3) 50 mcg (2,000 unit) cap Take by mouth once daily. No current facility-administered medications for this visit. Review of Systems Constitutional: Negative for chills, diaphoresis, fever, malaise/fatigue and weight loss. HENT: Negative. Negative for congestion, ear pain, sore throat and tinnitus. Eyes: Negative for blurred vision, double vision, photophobia and pain. Respiratory: Negative for cough, sputum production, shortness of breath and wheezing. Cardiovascular: Negative for chest pain, palpitations, orthopnea and leg swelling. Gastrointestinal: Negative for abdominal pain, blood in stool, constipation, diarrhea, heartburn, melena, nausea and vomiting. Genitourinary: Negative for dysuria, frequency, hematuria and urgency. Musculoskeletal: Negative for back pain, falls, joint pain, myalgias and neck pain. Skin: Negative for itching and rash. Neurological: Positive for dizziness. Negative for tingling, tremors, sensory change, speech change, focal weakness, seizures, weakness and headaches. Hx vertigo. Reports flares 2 times a month at month. Endo/Heme/Allergies: Negative for environmental allergies and polydipsia. Does not bruise/bleed easily. Psychiatric/Behavioral: Negative for depression and substance abuse. The patient is not nervous/anxious and does not have insomnia. 01/13/23 0718 01/13/23 0747 BP: 140/60 140/60 BP Site: Left Arm BP Position: Sitting BP Cuff Size: Regular Adult Pulse: 60 Resp: 18 Temp: 36.6 C (97.8 F) TempSrc: Oral SpO2: 99% Weight: 58.1 kg (128 lb) Height: 157.5 cm (5' 2) Physical Exam Vitals and nursing note reviewed. Constitutional: General: She is not in acute distress. Appearance: Normal appearance. She is not ill-appearing. HENT: Head: Normocephalic and atraumatic. Nose: Nose normal. Mouth/Throat: Mouth: Mucous membranes are moist. Pharynx: No oropharyngeal exudate. Eyes: Pupils: Pupils are equal, round, and reactive to light. Neck: Vascular: Normal carotid pulses. No carotid bruit. Cardiovascular: Rate and Rhythm: Normal rate and regular rhythm. Pulses: Normal pulses. Carotid pulses are 2+ on the right side and 2+ on the left side. Radial pulses are 2+ on the right side and 2+ on the left side. Heart sounds: Normal heart sounds, S1 normal and S2 normal. Pulmonary: Effort: Pulmonary effort is normal. No respiratory distress. Breath sounds: Normal breath sounds. No wheezing, rhonchi or rales. Abdominal: General: Abdomen is flat. Palpations: Abdomen is soft. Tenderness: There is no right CVA tenderness, left CVA tenderness or guarding. Musculoskeletal: Cervical back: Normal range of motion and neck supple. No rigidity. Right lower leg: No edema. Left lower leg: No edema. Lymphadenopathy: Cervical: No cervical adenopathy. Skin: General: Skin is warm and dry. Neurological: Mental Status: She is alert and oriented to person, place, and time. Cranial Nerves: Cranial nerves 2-12 are intact. Sensory: Sensation is intact. Motor: Motor function is intact. Coordination: Coordination is intact. Qfnadc-Yiba-Cqqlfq Test normal. Rapid alternating movements normal. Psychiatric: Mood and Affect: Mood normal. Behavior: Behavior normal. Thought Content: Thought content normal. Judgment: Judgment normal. Component Latest Ref Rng & Units 01/13/2022 12/20/2022 01/03/2023 WBC 3.70 - 11.00 k/uL 8.39 5.99 RBC 3.90 - 5.20 m/uL 4.07 3.95 Hemoglobin 11.5 - 15.5 g/dL 13.1 12.8 Hematocrit 36.0 - 46.0 % 39.8 38.3 MCV 80.0 - 100.0 fL 97.8 97.0 MCH 26.0 - 34.0 pg 32.2 32.4 MCHC 30.5 - 36.0 g/dL 32.9 33.4 RDW-CV 11.5 - 15.0 % 12.3 12.9 Platelet Count 150 - 400 k/uL 347 241 MPV 9.0 - 12.7 fL 8.9 (L) 8.9 (L) Neut% % 62.5 Abs Neut (ANC) 1.45 - 7.50 k/uL 3.74 Lymph% % 24.7 Abs Lymph 1.00 - 4.00 k/uL 1.48 [place]% % 9.5 Abs [place] <0.87 k/uL 0.57 Eosin% % 2.3 Abs Eosin <0.46 k/uL 0.14 Baso% % 0.7 Abs Baso <0.11 k/uL 0.04 Immature Gran % % 0.3 IMMATURE GRANS (ABS) <0.10 k/uL <0.03 NRBC /100 WBC 0.0 Absolute nRBC <0.01 k/uL <0.01 DTYPE Auto Protein, Total 6.3 - 8.0 g/dL 6.8 Albumin 3.9 - 4.9 g/dL 4.2 Calcium 8.5 - 10.2 mg/dL 9.3 Bilirubin, Total 0.2 - 1.3 mg/dL 0.8 Alkaline Phosphatase 34 - 123 U/L 89 AST 13 - 35 U/L 52 (H) ALT 7 - 38 U/L 79 (H) Glucose 74 - 99 mg/dL 105 (H) BUN 7 - 21 mg/dL 8 Creatinine 0.58 - 0.96 mg/dL 0.93 Sodium 136 - 144 mmol/L 135 (L) Potassium 3.7 - 5.1 mmol/L 4.8 Chloride 97 - 105 mmol/L 98 CO2 22 - 30 mmol/L 29 Anion Gap 9 - 18 mmol/L 8 (L) eGFR >=60 mL/min/1.73m 60 Cholesterol, Total <200 mg/dL 228 (H) Triglyceride <150 mg/dL 149 HDL Cholesterol >39 mg/dL 37 (L) Non HDL Cholesterol <130 mg/dL 191 (H) Fasting Time hrs 12 VLDL Cholesterol <30 mg/dL 30 (H) TC:HDL Ratio <5.10 6.16 (H) LDL Cholesterol <100 mg/dL 161 (H) LDL:HDL Ratio <2.54 4.35 (H) Creatinine, Ur Random (UCRR) 42.2 - 237.9 mg/dL 84.5 Albumin, Urine Random mg/L 13.1 Albumin/Creat Ratio <30 mg/g 16 INR (POCT) 0.8 - 1.2 2.4 (H) Internal Quality Check Acceptable TSH 0.270 - 4.200 mIU/L 1.640 Vitamin D 25 Hydroxy 30.0 - 100.0 ng/mL 55.3 Free T4 0.9 - 1.7 ng/dL 1.5 Uric Acid 2.5 - 6.6 mg/dL 4.0 ASSESSMENT/PLAN: 1. Essential hypertension, benign - ICD9: 401.1, ICD10: I10 (primary diagnosis) - suboptimal control, pt refuses increase or change in her medications. She is aware of risks of suboptimally controlled BP. - Continue current medication(s) - Encouraged dietary sodium restriction/DASH diet - Recommended regular aerobic exercise. - Recommend home blood pressure monitoring, to bring results in on next visit - Reviewed risks of HTN and principles of treatment - Goal of BP <130/80 - Recommended no refined sugar, low refined starch, healthy oil intake (olive oil), healthy protein(fish) along the lines of the Mediterranean diet. - COMP METABOLIC PANEL 2. Paroxysmal atrial fibrillation (HCC) - ICD9: 427.31, ICD10: I48.0 - Chronic stable INR therapeutic last results. Continue coumadin - she is asymptomatic 3. TIA (transient ischemic attack) - ICD9: 435.9, ICD10: G45.9 - acute, pt denies symptoms of stroke. She did have an 2 unsual episodes of jerking on left side. She has not had any since last ov and she has normal neuro exam. CT is ordered and pt has scheduled. Pt feels related to the cold and sinus medication she was taking. Happened both days she took it. She has stopped taking it and no new episodes. 4. Hypothyroidism, unspecified type - ICD9: 244.9, ICD10: E03.9 - Instructed patient on importance of taking on an empty stomach either first thing in the morning or at bedtime. - continue current dose of Synthroid 0.075 mg - TSH BLD 5. Gastroesophageal reflux disease without esophagitis - ICD9: 530.81, ICD10: K21.9 - Discussed lifestyle modifications including losing weight, limiting caffeine, no meals three hours before sleep, and head of bed elevation - Continue treatment with Protonix QD 6. Vitamin D deficiency - ICD9: 268.9, ICD10: E55.9 - VITAMIN D 25 HYDROXY 7. Screening for lipid disorders - ICD9: V77.91, ICD10: Z13.220 - LIPID PANEL BASIC Tanya Lozano APRN.COLLEGE ATHLETE documented in this encounterW[facility]04-17-2023 Miscellaneous Notes* Telephone Encounter - Jennifer Guillaume MA - 01/10/2023 10:27 AM EDT Called pt to f/u with her she has not had anymore episodes. She feels it might be related to the Tylenol Sinus medication. The times it happened was an hour after she took the Tylenol. Pt dose have the CT scheduled. Jennifer Guillaume MA documented in this encounterW[facility]04-10-2023 History of Present illness Narrative* Jennifer Guillaume MA - 01/03/2023 2:12 PM EDT Pt here for her INR pts Previous INR 3.0 Pts current dose 4 mg Thurs 3 mg the rest of week Pts INR today 2.4 Pt to continue her current dose and recheck in 1 month Jennifer Guillaume MA documented in this encounterW[facility] Center03-16-2023 Miscellaneous Notes* Telephone Encounter - Jennifer Guillaume MA - 12/09/2022 2:36 PM EDT Pt needs a temporary supply of her medication sent to local. I called script to pharmacy Patient phones requesting refills as follows: Requested Prescriptions Pending Prescriptions Disp Refills pantoprazole DR (PROTONIX) 40 mg tablet 10 tablet 0 Sig: Take 1 tablet by mouth once daily. Please review and advise. Jennifer Guillaume MA documented in this encounterWex[facility] Center03-09-2023 History of Present illness Narrative* Charisse Lange MA - 12/02/2022 8:38 AM EST Patient here for INR check. Last INR was 2.3 on 11/03/22. Patient is currently taking coumadin 4 mg on and 3 mg all other days. Patient's INR today was 3.0. Per conversation with Tanya Lozano CNP patient informed to continue current dose and recheck in 1 month. Charisse Lange MA documented in this encounterWexner Medical Center02-22-2023 Miscellaneous Notes* Telephone Encounter - Jennifer Guillaume MA - 11/17/2022 4:34 PM EST Last OV 07/15/22 Apt 01/13/23 INR 11/04/22 Labs 08/31/22 Patient phones requesting refills as follows: Requested Prescriptions Pending Prescriptions Disp Refills oxybutynin XL (DITROPAN XL) 5 mg 24 hr tablet 90 tablet 3 Sig: Take 1 tablet by mouth once daily. pantoprazole DR (PROTONIX) 40 mg tablet 90 tablet 3 Sig: Take 1 tablet by mouth once daily. losartan (COZAAR) 100 mg tablet 90 tablet 3 Sig: Take 1 tablet by mouth once daily. levothyroxine (SYNTHROID) 75 mcg tablet 90 tablet 3 Sig: Take 1 tablet by mouth daily before breakfast. warfarin (COUMADIN) 4 mg tablet 90 tablet 3 Sig: Take 1 tablet by mouth once daily. Please review and advise. Jennifer Guillaume MA documented in this encounterWexner [facility] Center02-09-2023 History of Present illness Narrative* Jennifer Guillaume MA - 11/04/2022 1:35 PM EST Pt here for her INR pts Previous INR 2.6 Pts current dose 4 mg Thurs 3 mg the rest of week Pts INR today 2.3 Instructed pt to continue current dose recheck in 1 month Jennifer Guillaume MA documented in this encounterWexner [facility] Center12-20-2022 History of Present illness Narrative* Jennifer Guillaume MA - 09/14/2022 9:16 AM EST Pt here for her INR pts Previous INR 2.8 Pts current 4 mg Tue and 3 mg the rest of the week Pts INR today 3.1 Per CN pt to take 4 mg on 3 mg the rest of the week recheck in 3 weeks Jennifer Guillaume MA documented in this [facility]11-17-2022 Miscellaneous Notes* Telephone Encounter - Jennifer Guillaume MA - 08/12/2022 10:53 AM EST Last OV 07/15/22 Apt 01/13/23 Labs 01/13/22 Pharmacy calls in requesting the following refill(s): Requested Prescriptions Pending Prescriptions Disp Refills oxybutynin XL (DITROPAN XL) 5 mg 24 hr tablet 90 tablet 1 Sig: Take 1 tablet by mouth once daily. pantoprazole DR (PROTONIX) 40 mg tablet 90 tablet 1 Sig: Take 1 tablet by mouth once daily. losartan (COZAAR) 100 mg tablet 90 tablet 1 Sig: Take 1 tablet by mouth once daily. levothyroxine (SYNTHROID) 75 mcg tablet 90 tablet 1 Sig: Take 1 tablet by mouth daily before breakfast. Jennifer Guillaume MA documented in this encounterW[facility] Center11-17-2022 History of Present illness Narrative* Jennifer Guillaume MA - 08/12/2022 8:58 AM EST Pt here for her INR pts Previous INR 2.8 Pts current 4 mg on and 3 mg the rest of the week Pts INR today 3.0 Instructed pt to continue her current dose and recheck in 1 month please advise of any changes Jennifer Guillaume MA documented in this encounterWexner Medical Center10-20-2022 Instructions* Patient Instructions* Tanya Lozano APRN.RUBIO - 07/15/2022 9:34 AM EDT ASSESSMENT/PLAN: 1. Essential hypertension, benign - ICD9: 401.1, ICD10: I10 (primary diagnosis) - good control - Continue current medication(s) - Recommended regular aerobic exercise. - Recommend home blood pressure monitoring, to bring results in on next visit - Discussed need and benefit for weight loss. - Reviewed risks of HTN and principles of treatment - Goal of BP <130/80 - BASIC METABOLIC PNL 2. Paroxysmal atrial fibrillation (HCC) - ICD9: 427.31, ICD10: I48.0 - INR, at goal follow one month INR check 3. Hypothyroidism, unspecified type - ICD9: 244.9, ICD10: E03.9 - Instructed patient on importance of taking on an empty stomach either first thing in the morning or at bedtime. - continue current dose of Synthroid 0.075 mg 4. Gastroesophageal reflux disease without esophagitis - ICD9: 530.81, ICD10: K21.9 Tanya Lozano APRN.COLLEGE ATHLETE documented in this encounterWexner Medical Center10-20-2022 History of Present illness Narrative* Tanya Lozano APRN.RUBIO - 07/15/2022 9:11 AM EDT SUBJECTIVE: Helen Lieberman is a 86 year old female who presents in follow up of HTN. PMH hypothyroidism, afib, GERD, pancreatitis, urinary incontinence, IBS. Patient denies changes in health since last office visit. Reports feeling well. Denies concerns or complaints today. I reviewed her past medical, surgical, social, and family histories today and updated chart. Allergies, chronic medications, and supplements were also reviewed and her list is now up to date. HTN: Ms. Lieberman indicates that she is feeling well and denies any symptoms referable to elevated blood pressure. Specifically denies headache, chest pain, palpitations, dyspnea, peripheral edema, claudication symptoms, orthopnea, fatigue, and PND. Patient denies any side effects of her medication(s) and is compliant with their regimen. She does check BP's away from this office with average BP's in the 140s/70s range. Helen denies regular aerobic exercise. She watches her diet for sodium, low fat and low cholesterol most of the time. She is taking losartan 100 mg daily. Last 3 Encounter BP Readings: Date: BP: 07/15/2022 162/70 06/03/2022 148/62 05/20/2022 150/70 Hyponatremia: She is seeing wanigan clerk Dr Ruiz for management for this. Afib: reports being dx 16 yrs ago. She reports taking propranolol for mangement and this has been working well for her. She also takes asa daily. She reports she was never told to take asa or blood thinner but she started taking this on his own. She reports never seeing heart doctor. She reports ifshe misses her medication she can feel it but otherwise she is asymptomatic. Her INR today is 2.7 in range. She is taking coumadin 3 mg daily. GERD: chronic stable. She is on Protonix daily for this. She sees Dr Casillas for this. Her last EGD was in February. Reports well controlled on Protonix Hypothyroidism: reports dx years ago. She is taking levothyroxine 75 mcg daily on an empty stomach.Denies symptoms referable to thyroid. Last TSH 08/09/21 1.69 Urinary incontinence: she is taking ditropan daily for this and reports it controls her symptoms. Denies any symptoms of incontinence IBS: chronic, reports flare up x 4 days. She has tried Low FODMAP diet. She does see Dr Casillas as well for this. He did give her rx for levsin. She saw him about 3 wks ago and has follow up in 2 wks. Pancreatitis: She did have ERCP with stent placement on 08/07/21 for biliary obstruction at [facility]. She reports she has an appt with Dr Casillas 08/26/21. She has not followed up with Dr Kelsi barton who did her ERCP. Reports she is to schedule another one but states since her TIA she has to wait 30 days. Reports she has had 3 ERCPs. First was with Bon 06/02/21, second was with Dr Casillas07/[address] Vazquez 08/07. Had TIA 08/09/21. Reports base weight loss since May. Her usual weight 135 lbs she was at this wt in April prior toeverything happening with her pancrease and bile duct. Preventative: last colonoscopy 07/[address] Casillas. She has reviewed both covid vaccines and booster. She is not interested in flu vaccine. Reports she has never had one. Reports she has not had bone density in years. Reports she only recalls having one in the past years ago. Never smoked. Reports was getting mammograms until this year. She is not interested in this right now. Reports family hx of breast cancer and that is why she was getting them yearly. Some elements of above documentation were copied from my progress note of 01/13/22 and have been reexamined and updated where appropriate. All elements reflect the current assessment and medical decision making today . PAST MEDICAL HISTORY Diagnosis Date Atrial fibrillation (HCC) 07/29/2021 Essential hypertension Gallstone pancreatitis Pancreatitis PAST SURGICAL HISTORY Procedure Laterality Date SECTION HX x4 FOOT SURGERY HX right side HERNIA REPAIR HX KNEE SURGERY HX Right REMOVAL GALLBLADDER Social History Tobacco Use Smoking status: Never Smokeless tobacco: Never Substance Use Topics Alcohol use: Yes Comment: Rarely Drug use: Never Family history reviewed. ALLERGIES Allergen Reactions Penicillins Unknown Sulfa (Sulfonamide * Unknown Tetracyclines Unknown Current Outpatient Medications Medication Sig hyoscyamine sublingual (LEVSIN SL) 0.125 mg TAKE 1 TABLET UNDER THE TONGUE EVERY 6 HOURS NEEDED warfarin (COUMADIN) 3 mg tablet TAKE 1 TABLET BY MOUTH DAILY DIRECTED pantoprazole DR (PROTONIX) 40 mg tablet Take 1 tablet by mouth once daily. oxybutynin XL (DITROPAN XL) 5 mg 24 hr tablet Take 1 tablet by mouth once daily. losartan (COZAAR) 100 mg tablet Take 1 tablet by mouth once daily. levothyroxine (SYNTHROID) 75 mcg tablet Take 1 tablet by mouth daily before breakfast. carvedilol (COREG) 12.5 mg tablet Take 25 mg by mouth twice daily. TAKE WITH FOOD. warfarin (COUMADIN) 4 mg tablet Take 1 tablet by mouth once daily. aspirin 81 mg cap Take by mouth. polyethylene glycol 3350 (MIRALAX, GLYCOLAX) 17 gram packet Take 17 g by mouth once daily. Dissolvedose in 4 - 8 ounces of liquid and take as directed. Cholecalciferol, Vitamin D3, (VITAMIN D-3) 50 mcg (2,000 unit) cap Take by mouth once daily. No current facility-administered medications for this visit. Review of Systems Constitutional: Negative for chills, diaphoresis, fever, malaise/fatigue and weight loss. HENT: Negative. Negative for congestion, ear pain, sore throat and tinnitus. Eyes: Negative for blurred vision, double vision, photophobia and pain. Respiratory: Negative for cough, sputum production, shortness of breath and wheezing. Cardiovascular: Negative for chest pain, palpitations, orthopnea and leg swelling. Gastrointestinal: Positive for abdominal pain. Negative for blood in stool, constipation, diarrhea,heartburn, melena, nausea and vomiting. Episodic abd pain- IBS related. Seeing Dr Casillas for this Genitourinary: Negative for dysuria, frequency, hematuria and urgency. Musculoskeletal: Negative for back pain, falls, joint pain, myalgias and neck pain. Skin: Negative for itching and rash. Neurological: Negative for dizziness, tingling, tremors, sensory change, speech change, focal weakness, weakness and headaches. Endo/Heme/Allergies: Negative for environmental allergies and polydipsia. Does not bruise/bleed easily. Psychiatric/Behavioral: Negative for depression and substance abuse. The patient is not nervous/anxious and does not have insomnia. BP 162/70 Pulse 56 Temp (Src) 98.2 (Oral) Resp 18 Ht 5' 2 (1.58m) Wt 124 lb 9.6 oz (56.5kg) SpO2 98% BMI 22.78 kg/(m^2). 07/15/22 0849 07/15/22 0914 BP: 162/70 130/70 BP Site: Right Arm BP Position: Sitting BP Cuff Size: Regular Adult Pulse: (!) 56 Resp: 18 Temp: 36.8 C (98.2 F) TempSrc: Oral SpO2: 98% Weight: 56.5 kg (124 lb 9.6 oz) Height: 157.5 cm (5' 2) Physical Exam Vitals and nursing note reviewed. Constitutional: Appearance: Normal appearance. HENT: Head: Normocephalic and atraumatic. Right Ear: Tympanic membrane, ear canal and external ear normal. Left Ear: Tympanic membrane, ear canal and external ear normal. Neck: Vascular: No carotid bruit. Cardiovascular: Rate and Rhythm: Normal rate and regular rhythm. Pulses: Normal pulses. Heart sounds: Normal heart sounds, S1 normal and S2 normal. No murmur heard. Pulmonary: Effort: Pulmonary effort is normal. No respiratory distress. Breath sounds: Normal breath sounds. No wheezing, rhonchi or rales. Abdominal: General: Abdomen is flat. Palpations: Abdomen is soft. Tenderness: There is no abdominal tenderness. Musculoskeletal: Cervical back: Normal range of motion and neck supple. Right lower leg: No edema. Left lower leg: No edema. Lymphadenopathy: Cervical: No cervical adenopathy. Skin: General: Skin is warm and dry. Neurological: Mental Status: She is alert and oriented to person, place, and time. Psychiatric: Mood and Affect: Mood normal. Behavior: Behavior normal. Thought Content: Thought content normal. Judgment: Judgment normal. Component Latest Ref Rng & Units 01/13/2022 01/20/2022 04/27/2022 07/15/2022 WBC 3.70 - 11.00 k/uL 8.39 6.02 RBC 3.90 - 5.20 m/uL 4.07 3.76 (L) Hemoglobin 11.5 - 15.5 g/dL 13.1 12.0 Hematocrit 36.0 - 46.0 % 39.8 36.5 MCV 80.0 - 100.0 fL 97.8 97.1 MCH 26.0 - 34.0 pg 32.2 31.9 MCHC 30.5 - 36.0 g/dL 32.9 32.9 RDW-CV 11.5 - 15.0 % 12.3 12.4 Platelet Count 150 - 400 k/uL 347 275 MPV 9.0 - 12.7 fL 8.9 (L) 9.1 Neut% % 60.1 Abs Neut (ANC) 1.45 - 7.50 k/uL 3.62 Lymph% % 24.6 Abs Lymph 1.00 - 4.00 k/uL 1.48 [place]% % 11.8 Abs [place] <0.87 k/uL 0.71 Eosin% % 3.2 Abs Eosin <0.46 k/uL 0.19 Baso% % 0.3 Abs Baso <0.11 k/uL <0.03 DTYPE Auto Protein, Total 6.3 - 8.0 g/dL 6.9 7.4 Albumin 3.9 - 4.9 g/dL 4.6 4.6 Calcium 8.5 - 10.2 mg/dL 9.8 Bilirubin, Total 0.2 - 1.3 mg/dL 1.1 0.8 Alkaline Phosphatase 34 - 123 U/L 82 84 AST 13 - 35 U/L 17 17 ALT 7 - 38 U/L 11 10 Glucose 74 - 99 mg/dL 105 (H) BUN 7 - 21 mg/dL 11 Creatinine 0.58 - 0.96 mg/dL 0.82 Sodium 136 - 144 mmol/L 129 (L) Potassium 3.7 - 5.1 mmol/L 4.4 Chloride 97 - 105 mmol/L 91 (L) CO2 22 - 30 mmol/L 28 Anion Gap 9 - 18 mmol/L 10 eGFR >=60 mL/min/1.73m 70 Cholesterol, Total <200 mg/dL 228 (H) Triglyceride <150 mg/dL 149 HDL Cholesterol >39 mg/dL 37 (L) Non HDL Cholesterol <130 mg/dL 191 (H) Fasting Time hrs 12 VLDL Cholesterol <30 mg/dL 30 (H) TC:HDL Ratio <5.10 6.16 (H) LDL Cholesterol <100 mg/dL 161 (H) LDL:HDL Ratio <2.54 4.35 (H) Bilirubin, Conjug <0.2 mg/dL <0.2 Creatinine, Ur Random (UCRR) 42.2 - 237.9 mg/dL 84.5 Albumin, Urine Random mg/L 13.1 Albumin/Creat Ratio <30 mg/g 16 INR (POCT) 0.8 - 1.2 2.8 (H) Internal Quality Check Acceptable TSH 0.270 - 4.200 mIU/L 1.640 Vitamin D 25 Hydroxy 30.0 - 100.0 ng/mL 55.3 Free T4 0.9 - 1.7 ng/dL 1.5 Uric Acid 2.5 - 6.6 mg/dL 4.0 Lipase 16 - 61 U/L 29 ASSESSMENT/PLAN: 1. Essential hypertension, benign - ICD9: 401.1, ICD10: I10 (primary diagnosis) - good control - Continue current medication(s) - Recommended regular aerobic exercise. - Recommend home blood pressure monitoring, to bring results in on next visit - Discussed need and benefit for weight loss. - Reviewed risks of HTN and principles of treatment - Goal of BP <130/80 - BASIC METABOLIC PNL 2. Paroxysmal atrial fibrillation (HCC) - ICD9: 427.31, ICD10: I48.0 - INR, at goal follow up one month INR check - continue coumadin current dose 3. Hypothyroidism, unspecified type - ICD9: 244.9, ICD10: E03.9 - Instructed patient on importance of taking on an empty stomach either first thing in the morning or at bedtime. - continue current dose of Synthroid 0.075 mg 4. Gastroesophageal reflux disease without esophagitis - ICD9: 530.81, ICD10: K21.9 - chronic controlled with protonix Tanya Lozano APRN.[facility] [facility] [facility] Miscellaneous Notes* Telephone Encounter - Jennifer Guillaume MA - 06/16/2022 3:40 PM EDT Last OV 01/13/22 Apt 07/15/22 INR 06/03/22 Pharmacy calls in requesting the following refill(s): Requested Prescriptions Pending Prescriptions Disp Refills warfarin (COUMADIN) 3 mg tablet [Pharmacy Med Name: warfarin 3 mg tablet] 90 tablet 3 Sig: TAKE 1 TABLET BY MOUTH DAILY DIRECTED Jennifer Guillaume MA documented in this encounterW[facility]09-[facility]-2022 History of Present illness Narrative* Jennifer Guillaume MA - 06/03/2022 8:51 AM EDT Pt here for her INR Pts previous INR 3.0 Pts current dose 4 mg Mon,Thurs 3 mg the rest of the week Pts INR today was 2.9 Per CN instructions pt to continue her current dose and recheck in 1 month. Pt has a routine OV 07/15/22 she will have it checked at that time Jennifer Guillaume MA documented in this encounterW[facility]08-25-2022 History of Present illness Narrative* Charisse Lange MA - 05/20/2022 8:15 AM EDT Patient here for INR check. Last INR was 2.9 on 04/19/22. Patient is currently taking coumadin 4 mg Tuesday, , 3 mg all other days. Patient denies missing any doses but does state she has some new bruising but has been working in the garden. Patient's INR today was 3.0. Per conversation with Genia Huitron CNP patient informed to take 3 mg today then resume normal dosing and recheck in 3 weeks. Was advised if her bruising worsens or she has any signs of bleeding to call the office and if out of office hours to go to the ER. Charisse Lange MA documented in this encounterW[facility]07-25-2022 History of Present illness Narrative* Jennifer Guillaume MA - 04/19/2022 9:15 AM EDT Pt here for her INR pts previous INR was 2.3 Pts current dose 4 mg Mon,Thurs 3 mg the rest of the week Pr to continue recheck in 1 month Jennifer Guillaume MA documented in this encounterW[facility]06-23-2022 History of Present illness Narrative* Jennifer Guillaume MA - 03/18/2022 8:34 AM EDT Pt here for INR pts previous INR was 2.3 Pts current dose 4 mg Mon, Thurs 3 mg Sun,Tue,Tue,Fri Sat Pts INR today 2.3 Instructed pt to continue her current dose and recheck in 1 month Jennifer Guillaume MA documented in this encounterW[facility]06-13-2022 History of Present illness Narrative* Jennifer Guillaume MA - 03/08/2022 11:09 AM EDT Pt here for NV pts BP has been running high in the morning when she wakes up its 197/91 HR 58. Pt takes 12.5 mg Carvedilol when HR is 60 or below if over 60 she takes 25 mg. Her BP dose come down after she takes her medication. She just feels its not lasting the 12 hours. Her BP in the office today was 158/72 HR 60 Pt took 12.5 mg of her Carvedilol today at 6:30 am Let pt sit for 10 min recheck was documented in this encounterW[facility]06-09-2022 History of Present illness Narrative* Jennifer Guillaume MA - 03/04/2022 8:56 AM EDT Pt here for her INR today Pts previous INR 3.7 Pts dose hold tue and 3 mg Pts INR today 2.3 Per CN instructions pt to take 4 mg Tue, 3 mg the rest of the week pt needs to check in 2 weeks Jennifer Guillaume MA documented in this encounterW[facility]06-06-2022 History of Present illness Narrative* Tanya Lozano APRN.RUBIO - 03/01/2022 5:30 PM EDT Instruct her to keep checking her BP and bring BP Cuff in with her to check for accuracy She needs to follow up with [facility] clerk regarding her BP medication he prescribed for this. She can not take the coreg 3x/day. Also clarify if taking the propranolol- why is she taking this? * Jennifer Guillaume MA - 03/01/2022 8:25 AM EDT Pt here for her INR Pts previous INR was 1.7 Pt was taking 4 mg daily Pts INR today was 3.7 Per CN instructions pt to hold today and 3 mg , Tue recheck on Pts BP was also elevated her first BP was 148/68 let pt sit for 10 min 138/78. Pt stated at home before she takes her medication her BP is running 200/84 after she takes her medication it goes down to around 148/80 range. She is wanting to know if there can be an increase in her Coreg. Pt was asking if she can take it 3 times daily if that would help with control all day. Please advise of instruct ions on her BP Jennifer Guillaume MA documented in this encounterW[facility]06-03-2022 Miscellaneous Notes* Telephone Encounter - Prisca Kemp - 02/26/2022 7:13 AM EDT Please note that the patient contacted the office for an appointment with Tanya Lozano CNP. She stated that her BP was very high. She was offered appointments available for all practitioners in the office today; however, they are all in the pm. She stated that she would just go to [facility] this morning. Prisca Kemp documented in this encounterW[facility]05-31-2022 History of Present illness Narrative* Nicole Foreman MA - 02/23/2022 8:23 AM EDT Patient is here to check their INR Last INR: 1.7 Current Dose: 4 mg T, W, and 3 mg TH, F, Sat, AND Sun. INR: 1.7 Per PCP take 4 mg everyday and recheck 03/01/22. Nicole Foreman MA documented in this encounterW[facility]05-24-2022 History of Present illness Narrative* Jennifer Guillamue MA - 02/16/2022 2:11 PM EDT Called pt let her know the instructions on her Coumadin Jennifer Guillaume MA * Tanya Lozano APRN.CNP - 02/16/2022 12:37 PM EDT Instruct to take 4 mg today and tomorrow. And then return to 3 mg daily. Recheck one week * Jennifer Guillaume MA - 02/16/2022 8:20 AM EDT Pt here for her INR Pts previous INR 2.7 Pts current dose 3 mg daily Pts INR today 1.7 pts BP was also elevated today Pt went to her Kidney Doctor and he changed her BP medication D/C the Amlodipine and started her on Carvedilol 12.5 mg 2 times daily Pts first BP was 180/68 Let pt sit for 10 min repeat 148/60 Jennifer Guillaume MA documented in this [facility]04-21-2022 Miscellaneous Notes* Telephone Encounter - Nicole Foreman MA - 01/14/2022 10:04 AM EDT Patient informed. Nicole Foreman MA * Telephone Encounter - Nicole Foreman MA - 01/14/2022 10:03 AM EDT ----- Message from Tanya Lozano APRN.[employer] sent at 01/14/2022 7:02 AM EDT ----- T4 wnl * Telephone Encounter - Nicole Foreman MA - 01/14/2022 10:03 AM EDT ----- Message from Tanya Lozano APRN.[employer] sent at 01/13/2022 12:32 PM EDT ----- CBC unremarkable documented in this [facility]04-20-2022 Instructions* Patient Instructions* Tanya Lozano APRN.CNP - 01/13/2022 9:59 AM EDT ASSESSMENT/PLAN: 1. Essential hypertension, benign - ICD9: 401.1, ICD10: I10 (primary diagnosis) - suboptimal control - Continue current medication(s) - Discontinue amlodipine (Norvasc) - Encouraged dietary sodium restriction/DASH diet - Recommended regular aerobic exercise. - Recommend home blood pressure monitoring, to bring results in on next visit - Reviewed risks of HTN and principles of treatment - Goal of BP <130/80 - Recommended no refined sugar, low refined starch, healthy oil intake (olive oil), healthy protein(fish) along the lines of the Mediterranean diet. - LOSARTAN 100 MG TABLET - AMLODIPINE 2.5 MG TABLET - CBC - COMP METABOLIC PANEL - CONSULT TO NEPHROLOGY 2. Paroxysmal atrial fibrillation (HCC) - ICD9: 427.31, ICD10: I48.0 - Chronic stable - INR FINGERSTICK B/O 3. Hypothyroidism, unspecified type - ICD9: 244.9, ICD10: E03.9 - Instructed patient on importance of taking on an empty stomach either first thing in the morning or at bedtime. - check TSH and T4/FTI today - continue current dose of Synthroid 0.075 mg Stable - LEVOTHYROXINE 75 MCG TABLET - TSH BLD - T4 FREE/FREE THYROX 4. Gastroesophageal reflux disease without esophagitis - ICD9: 530.81, ICD10: K21.9 - Discussed lifestyle modifications including limiting caffeine, no meals three hours before sleep and head of bed elevation - Continue treatment with protonix QD - PANTOPRAZOLE 40 MG TABLET,DELAYED RELEASE - FOR COMPOUND USE ONLY 5. Vitamin D deficiency - ICD9: 268.9, ICD10: E55.9 - VITAMIN D 25 HYDROXY 6. TIA (transient ischemic attack) - ICD9: 435.9, ICD10: G45.9 - LIPID PANEL BASIC 7. Mixed stress and urge urinary incontinence - ICD9: 788.33, ICD10: N39.46 - OXYBUTYNIN CHLORIDE ER 5 MG TABLET,EXTENDED RELEASE 24 HR Tanya Lozano APRN.[employer] documented in this encounterW[facility]04-20-2022 History of Present illness Narrative* Tanya Lozano APRN.[facility] - 01/13/2022 9:37 AM EDT SUBJECTIVE: Helen Lieberman is a 86 year old female who presents in follow up of HTN and afib. PMH TIA, hypothyrodism. Patient denies changes in health since last office visit. Reports feeling well. Denies concerns or complaints today. I reviewed her past medical, surgical, social, and family histories today and updated chart. Allergies, chronic medications, and supplements were also reviewed and her list is now up to date. HTN: Ms. Lieberman indicates that she is feeling well and denies any symptoms referable to elevated blood pressure. Specifically denies headache, chest pain, palpitations, dyspnea, peripheral edema, claudication symptoms, orthopnea, fatigue and PND. Patient denies any side effects of her medication(s) and is compliant with their regimen. She does not check BP's generally. Helen denies regular aerobic exercise. She watches her diet for sodium, low fat and low cholesterol some of the time. She is taking losartan 100 mg daily. Pt reports her leg cramps worsened after taking the norvasc. Reports cramps will be anywhere at any time. Reports they are almost daily. Reports she stopped the norvasc for one week and the cramps improved. Last 3 Encounter BP Readings: Date: BP: 01/13/2022 162/70 12/28/2021 170/62 12/17/2021 138/78 Hyponatremia: She is seeing [facility] clerk Dr Ruiz for management for this. Afib: reports being dx 16 yrs ago. She reports taking propranolol for mangement and this has been working well for her. She also takes asa daily. She reports she was never told to take asa or blood thinner but she started taking this on his own. She reports never seeing heart doctor. She reports ifshe misses her medication she can feel it but otherwise she is asymptomatic. Her INR today is 2.7 in range. She is taking coumadin 3 mg daily. GERD: chronic stable. She is on Protonix daily for this. She sees Dr Casillas for this. Her last EGD was in February. Reports well controlled on Protonix Hypothyroidism: reports dx years ago. She is taking levothyroxine 75 mcg daily on an empty stomach.Denies symptoms referable to thyroid. Last TSH 08/09/21 1.69 Urinary incontinence: she is taking ditropan daily for this and reports it controls her symptoms. Denies any symptoms of incontinence Pancreatitis: She did have ERCP with stent placement on 08/07/21 for biliary obstruction at [facility]. She reports she has an appt with Dr Casillas 08/26/21. She has not followed up with Dr Kelsi barton who did her ERCP. Reports she is to schedule another one but states since her TIA she has to wait 30 days. Reports she has had 3 ERCPs. First was with Bon 06/02/21, second was with Dr Casillas07/[address] Vazquez 08/07. Had TIA 08/09/21. Reports base weight loss since May. Her usual weight 135 lbs she was at this wt in April prior toeverything happening with her pancrease and bile duct. Preventative: last colonoscopy 07/[address] Casillas. She has reviewed both covid vaccines and booster. She is not interested in flu vaccine. Reports she has never had one. Reports she has not had bone density in years. Reports she only recalls having one in the past years ago. Never smoked. Reports was getting mammograms until this year. She is not interested in this right now. Reports family hx of breast cancer and that is why she was getting them yearly. Some elements of above documentation were copied from my progress note of 08/18/21 and have been reexamined and updated where appropriate. All elements reflect the current assessment and medical decision making today . PAST MEDICAL HISTORY Diagnosis Date Atrial fibrillation (HCC) 07/29/2021 Essential hypertension Gallstone pancreatitis Pancreatitis PAST SURGICAL HISTORY Procedure Laterality Date SECTION HX x4 FOOT SURGERY HX right side HERNIA REPAIR HX KNEE SURGERY HX Right REMOVAL GALLBLADDER Social History Tobacco Use Smoking status: Never Smoker Smokeless tobacco: Never Used Substance Use Topics Alcohol use: Yes Comment: Rarely Drug use: Never Family history reviewed. ALLERGIES Allergen Reactions Penicillins Unknown Sulfa (Sulfonamide * Unknown Tetracyclines Unknown Current Outpatient Medications Medication Sig propranolol (INDERAL) 20 mg tablet Take 1 tablet by mouth twice daily. pantoprazole DR (PROTONIX) 40 mg tablet Take 1 tablet by mouth once daily. oxybutynin XL (DITROPAN XL) 5 mg 24 hr tablet Take 1 tablet by mouth once daily. losartan (COZAAR) 100 mg tablet Take 1 tablet by mouth once daily. amLODIPine (NORVASC) 2.5 mg tablet Take 1 tablet by mouth once daily. levothyroxine (SYNTHROID) 75 mcg tablet Take 1 tablet by mouth daily before breakfast. warfarin (COUMADIN) 3 mg tablet Take 1 tablet by mouth daily as directed. warfarin (COUMADIN) 4 mg tablet Take 1 tablet by mouth once daily. rosuvastatin (CRESTOR) 20 mg tablet Take 0.5 tablets by mouth daily at bedtime. aspirin 81 mg cap Take by mouth. polyethylene glycol 3350 (MIRALAX, GLYCOLAX) 17 gram packet Take 17 g by mouth once daily. Dissolvedose in 4 - 8 ounces of liquid and take as directed. Cholecalciferol, Vitamin D3, (VITAMIN D-3) 50 mcg (2,000 unit) cap Take by mouth once daily. No current facility-administered medications for this visit. Review of Systems Constitutional: Negative for chills, diaphoresis, fever, malaise/fatigue and weight loss. HENT: Negative. Negative for congestion, ear pain, sore throat and tinnitus. Eyes: Negative for blurred vision, photophobia and pain. Respiratory: Negative for cough, sputum production, shortness of breath and wheezing. Cardiovascular: Negative for chest pain, palpitations, orthopnea and leg swelling. Gastrointestinal: Negative. Negative for abdominal pain, blood in stool, constipation, diarrhea, heartburn, melena, nausea and vomiting. Genitourinary: Negative. Negative for frequency and urgency. Musculoskeletal: Negative. Negative for falls and neck pain. Skin: Negative. Negative for itching. Neurological: Negative. Negative for dizziness, tingling, tremors, sensory change, focal weakness, weakness and headaches. Endo/Heme/Allergies: Negative. Negative for environmental allergies. Does not bruise/bleed easily. Psychiatric/Behavioral: Positive for depression. Negative for suicidal ideas. The patient is not nervous/anxious and does not have insomnia. Reports since September she has lost 5 people family and friends. 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 01/13/2217 01/13/22 0941 BP: 162/70 142/60 BP Site: Right Arm Right Arm BP Position: Sitting BP Cuff Size: Regular Adult Pulse: (!) 51 Resp: 18 Temp: 36.8 C (98.2 F) TempSrc: Oral SpO2: 93% Weight: 59.1 kg (130 lb 3.2 oz) Height: 157.5 cm (5' 2) Physical Exam Vitals and nursing note reviewed. Constitutional: General: She is not in acute distress. Appearance: Normal appearance. She is not ill-appearing. HENT: Head: Normocephalic and atraumatic. Cardiovascular: Rate and Rhythm: Normal rate and regular rhythm. Pulses: Normal pulses. Heart sounds: Normal heart sounds. Pulmonary: Effort: Pulmonary effort is normal. Breath sounds: Normal breath sounds. No wheezing, rhonchi or rales. Abdominal: Palpations: Abdomen is soft. Tenderness: There is no abdominal tenderness. Musculoskeletal: General: Normal range of motion. Cervical back: Normal range of motion and neck supple. Skin: General: Skin is warm and dry. Neurological: Mental Status: She is alert and oriented to person, place, and time. Psychiatric: Mood and Affect: Mood normal. Behavior: Behavior normal. Thought Content: Thought content normal. Judgment: Judgment normal. Component Latest Ref Rng & Units 08/10/2021 08/24/2021 10/20/2021 11/19/2021 12/17/2021 01/13/2022 Protein, Total 6.3 - 8.0 g/dL 6.5 Albumin 3.9 - 4.9 g/dL 4.3 Calcium 8.5 - 10.2 mg/dL 9.8 Bilirubin, Total 0.2 - 1.3 mg/dL 0.5 Alkaline Phosphatase 34 - 123 U/L 72 AST 13 - 35 U/L 21 Glucose 74 - 99 mg/dL 100 (H) BUN 7 - 21 mg/dL 12 Creatinine 0.58 - 0.96 mg/dL 0.89 Sodium 136 - 144 mmol/L 134 (L) Potassium 3.7 - 5.1 mmol/L 4.0 Chloride 97 - 105 mmol/L 96 (L) CO2 22 - 30 mmol/L 29 Anion Gap 9 - 18 mmol/L 9 ALT 7 - 38 U/L 11 eGFR- >60 eGFR-All Other Races . >60 WBC 3.70 - 11.00 k/uL 5.71 RBC 3.90 - 5.20 m/uL 4.13 Hemoglobin 11.5 - 15.5 g/dL 12.9 Hematocrit 36.0 - 46.0 % 39.4 MCV 80.0 - 100.0 fL 95.4 MCH 26.0 - 34.0 pG 31.2 MCHC 30.5 - 36.0 g/dL 32.7 RDW-CV 11.5 - 15.0 % 12.7 Platelet Count 150 - 400 k/uL 312 MPV 9.0 - 12.7 fL 9.5 Absolute nRBC <0.01 k/uL <0.01 Cholesterol, Total <200 mg/dL 197 Triglyceride <150 mg/dL 150 (H) HDL Cholesterol >39 mg/dL 35 (L) LDL Cholesterol <100 mg/dL 132 (H) Non HDL Cholesterol <130 mg/dL 162 (H) Fasting Time hrs Unknown VLDL Cholesterol <30 mg/dL 30 (H) TC:HDL Ratio <5.10 5.63 (H) LDL:HDL Ratio <2.54 3.77 (H) PT Sec 9.7 - 13.0 sec 21.0 (H) PT INR 0.9 - 1.3 2.1 (H) INR (POCT) 0.8 - 1.2 2.3 (H) 2.7 (H) Internal Quality Check Acceptable Acceptable Vitamin D 25 Hydroxy 30.0 - 100.0 ng/mL 45.5 Lipase 16 - 61 U/L 50 ASSESSMENT/PLAN: 1. Essential hypertension, benign - ICD9: 401.1, ICD10: I10 (primary diagnosis) - suboptimal control - Continue current medication(s) - Discontinue amlodipine (Norvasc) due to worsening of muscle cramps. I will place referral to her wanigan clerk who she is seeing next week to check her BP and provide recommendations and manage thissince remains above goal. - Encouraged dietary sodium restriction/DASH diet - Recommended regular aerobic exercise. - Recommend home blood pressure monitoring, to bring results in on next visit - Reviewed risks of HTN and principles of treatment - Goal of BP <130/80 - Recommended no refined sugar, low refined starch, healthy oil intake (olive oil), healthy protein(fish) along the lines of the Mediterranean diet. - LOSARTAN 100 MG TABLET - AMLODIPINE 2.5 MG TABLET - CBC - COMP METABOLIC PANEL - CONSULT TO NEPHROLOGY 2. Paroxysmal atrial fibrillation (HCC) - ICD9: 427.31, ICD10: I48.0 - Chronic stable - INR at goal at 2.7 today. Continue 3 mg daily and recheck in one month - INR FINGERSTICK B/O 3. Hypothyroidism, unspecified type - ICD9: 244.9, ICD10: E03.9 - Instructed patient on importance of taking on an empty stomach either first thing in the morning or at bedtime. - check TSH and T4/FTI today - continue current dose of Synthroid 0.075 mg Stable - LEVOTHYROXINE 75 MCG TABLET - TSH BLD - T4 FREE/FREE THYROX 4. Gastroesophageal reflux disease without esophagitis - ICD9: 530.81, ICD10: K21.9 - chronic controlled - Discussed lifestyle modifications including limiting caffeine, no meals three hours before sleep and head of bed elevation - Continue treatment with protonix QD - PANTOPRAZOLE 40 MG TABLET,DELAYED RELEASE - FOR COMPOUND USE ONLY 5. Vitamin D deficiency - ICD9: 268.9, ICD10: E55.9 - VITAMIN D 25 HYDROXY 6. TIA (transient ischemic attack) - ICD9: 435.9, ICD10: G45.9 - stable. - continue statin - LIPID PANEL BASIC 7. Mixed stress and urge urinary incontinence - ICD9: 788.33, ICD10: N39.46 - chronic, controlled with oxybutynin - OXYBUTYNIN CHLORIDE ER 5 MG TABLET,EXTENDED RELEASE 24 HR Tanya Lozano APRN.RUBIO I spent a total of 43 minutes on the date of the service which included preparing to see the patient, helx-sj-agck patient care, completing clinical documentation, obtaining and/or reviewing separately obtained history, performing a medically appropriate examination, counseling and educating the pat ient/family/caregiver and ordering medications, tests, or procedures. documented in this encounterWex[facility] Center04-18-2022 Miscellaneous Notes* Telephone Encounter - Mackenzie Rdz - 01/11/2022 2:37 PM EDT No Show Documentation Helen R Sheller no showed for an appointment on 01-11-2022 with Tanya Lozano APRN.CNP at 9:00am. She was scheduled for follow up. I called and spoke with the patient regarding her missed appointment. Helen stated the reason that she missed her appointment was because forgot about appointment . Resources discussed/offered to patient: called patient and rescheduled appointment No show determined to be fault of patient: Yes This is the patients first no show in the last 12 months. Patient was rescheduled for 01-13-2022 . Letter mailed : Yes Is this the Third or Fourth No Show? No Mackenzie Rdz January 11, 2022 2:37 PM documented in this encounterWexner [facility] Center04-04-2022 History of Present illness Narrative* Jennifer Guillaume MA - 12/28/2021 8:20 AM EDT Patient is here for BP check and current medication is Losartan 100mg Pt stopped the Amlodipine last week due to cramps Pts BP 180/70 Let pt sit for 10 min recheck 170/62 Per Cn instructions let pt know that she needs to resume the Amlodipine and schedule a f/u apt withCN in 2 weeks Jennifer Guillaume MA documented in this encounterWexner Medical Center03-28-2022 History of Present illness Narrative* Tanya Lozano APRN.CNP - 12/21/2021 7:11 AM EDT Instruct her to stop the amolodipine to see if pain goes away. Have her come in 1 wk for BP check * Jennifer Guillaume MA - 12/17/2021 8:20 AM EDT Patient is here for INR check Last INR: 2.1 Current dose: 3 mg everyday Pts INR today 2.3 Per CN pt to continue 3 mg and recheck in 1 month Pt is stating that she is getting leg cramps bad and feels that its the Amlodipine causing her leg cramps Pt is wanting to know is there something else she can take or what she can do for the leg cramps Jennifer Guillaume MA documented in this encounterWexner Medical Center03-24-2022 Miscellaneous Notes* Telephone Encounter - Nicole Foreman MA - 12/17/2021 9:30 AM EDT Patient requesting refills as follows: Last Office Visit 08/18/21. Last Refill 08/18/21. Pending Prescriptions Disp Refills PANTOPRAZOLE 40 MG TABLET,DELAYED RELEASE - FOR COMPOUND USE ONLY 90 tablet 0 Sig: Take 1 tablet by mouth once daily. RANDEE: No OXYBUTYNIN CHLORIDE ER 5 MG TABLET,EXTENDED RELEASE 24 HR 90 tablet 0 Sig: Take 1 tablet by mouth once daily. RANDEE: No LOSARTAN 100 MG TABLET 90 tablet 0 Sig: Take 1 tablet by mouth once daily. RANDEE: No Please review and advise. Nicole Foreman MA documented in this encounterWexner Medical Center11-12-2021 NoteHNO ID: [id number] Author: Nara Hernandez APRN.RELOCATION SPECIALIST Service: Anesthesiology Author Type: Nurse Investigator Vice Type: Anesthesia Procedure Notes Filed: 08/07/2021 1:58 PM Note Text: ANESTHESIOLOGY PROCEDURE NOTE Airway General Information Procedure Start Time/Medication Administration: 08/07/2021 1:47 PM Patient location during procedure: OR Patient identity confirmed: arm band and patient Staffing Anesthesiologist: Flavio Eisenberg DO RELOCATION SPECIALIST: Nara Hernandez APRN.RELOCATION SPECIALIST Performed by: RELOCATION SPECIALIST Indications and Patient Condition Preoxygenated: yes Patient position: sniffing Manual In-Line Stabilization: No Difficult Mask: No Indications for airway management: anesthesia anesthesia circuit Method: asleep Cricoid Pressure: No Final Airway Details Final airway type: endotracheal airway Final Endotracheal Airway: ETT Cuffed: yes Successful intubation technique: direct laryngoscopy Endotracheal tube insertion site: oral Blade: Tracie Blade size: #4 ETT size (mm): 7.0 Measured from: lips Measurement (cm): 20 Cormack-Lehane Classification: grade I - full view of glottis Number of attempts at approach: 1 Failed airway: no Unrecognized esophageal intubation: no Airway not difficult SIGNATURE: Nara Hernandez APRN.CRNA PATIENT NAME: Helen Lieberman DATE: August 07, 2021 TIME: 1:57 PM CSN: [id number] Miscellaneous Notes* Telephone Encounter - Patricia Vazquez MD - 07/30/2021 4:18 PM EDT Thanks Sylvia. Patricia Vazquez MD * Telephone Encounter - Sylvia Romero RN - 07/30/2021 1:35 PM EDT Attempted to call pt again. Unable to get through. Rings busy. * Telephone Encounter - Sylvia Romero RN - 07/30/2021 1:[address] Vazquez- located under Notes/Trans tab: DATE OF SURGERY/PROCEDURE: 07/29/2021 INCISION/PROCEDURE START TIME: The scope in time was 07:41. INCISION CLOSE/PROCEDURE END TIME: The scope out time was 08:52. PREOPERATIVE DIAGNOSIS: History of gallstone induced pancreatitis POSTOPERATIVE DIAGNOSIS: 1. Large duodenal diverticulum. 2. 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 3. Small hiatal hernia. SURGEON: Andreas Casillas M.D. AUXILIARY EQUIPMENT OPERATOR: Roxana Rivers. SURGERY/PROCEDURE: Attempted endoscopic retrograde cholangiography. ANESTHESIA: General. INDICATIONS: The patient is an 85-year-old female, who was admitted to [facility] 2 months ago with a probable gallstone-induced pancreatitis. She now presents for an ERCP for further evaluation and management. CONSENT: The procedure explained to the patient and written informed consent was obtained from her prior to the procedure. DESCRIPTION OF PROCEDURE: The procedure was performed using general anesthesia. The patient was positioned in the prone position. The Olympus TJF-180 side- viewing duodenoscope was advanced through the upper GI tract into the second part of the duodenum without difficulty. A large diverticula was seen in the 2nd part of the duodenum. A moderate volume of food residue was seen in this diverticulum.In addition, bile was pooled in the diverticulum. The food residue was removed using a Moran Net. Despite numerous attempts and maneuvers, the ampulla could not be identified within the diverticulum. It was felt it probably is embedded within this diverticulum. The duodenal mucosa was inspected very slightly and no other structure resembling a papilla was identified. Hence, the procedure could not be performed. A hiatal hernia was present. The endoscope was gently retrieved. The patient tolerated the procedure well and was returned to the recovery area in good condition. IMPRESSION: 1. Large duodenal diverticulum. 2. Unable to identify ampulla, suspect embedded within duodenal diverticulum. 3. Hiatal hernia. RECOMMENDATIONS: 1. Continue antireflux measures, as previously recommended. 2. Continue pantoprazole 40 mg once daily. 3. Will refer to a tertiary care center for further attempt at ERCP. * Telephone Encounter - Patricia Vazquez MD - 07/30/2021 12:31 PM EDT Sylvia: She had ERCP done yesterday by Dr. Casillas at [facility]. Could you find the report. Check CBCD, CMP, A/L next few days. Advise patient to avoid fatty & fried food. Jina: Can be scheduled next week or the week after. Patricia Vazquez MD * Telephone Encounter - Sylvia Romero RN - 07/30/2021 9:56 AM EDT Attempted to call pt 2x. Rings busy. Will attempt again * Telephone Encounter - Sylvia Romero RN - 07/30/2021 9:38 AM EDT RUQ U/S on 06/06/2021 showed: The gallbladder is surgically absent.. The common bile duct diameter of 1.2 mm is borderline prominent. IMPRESSION: Absent gallbladder. Common duct diameter is borderline prominent. This may related to the post cholecystectomy status. Borderline prominence of the intrahepatic ducts and pancreatic duct also noted. No peripancreatic fluid collections. No free fluid. EGD/Attempted ERCP 06/04/2021 Findings: Tortous upper esophagus likely from external compression. External compression in stomach likely from pancreatitis or ileus. Duodenal divericulum is seen briefly. No large inflammatory mass is noted. A duodenoscope could not be advanced below the UES likely from external compression from spine. 06-01-2021 CT ABD/PEL IV only IMPRESSION: 1. Duodenal diverticulum. Significant inflammatory changes and a small amount of fluid have developed about the diverticulum. The findings are consistent with focal duodenitis or ulcer. 2. Inflammatory changes and a small amount of extend into the right paracolic gutter. 3. There are no loculated collections to suggest an abscess. 4. Intra and extrahepatic biliary dilatation. This is unchanged from the prior study and is likely physiologic status post cholecystectomy. Labs: 07-16-2021 LIPASE 422 06-22-2021 WBC 6.9 RBC 3.74 Hemoglobin 11.8 Hematocrit 34.8 Platelets 466 MPV 6.5 Lymphocytes 17.7 Granuloctyes 70.0 Monocytes 9.0 Eosinophils 2.6 Basophils 0.7 Absolute Neur 4.8 Lipase 1089 Sodium 131 Potassium 4.2 Chloride 96 CO2 27 Glucose 115 ALT 15 AST 29 * Telephone Encounter - Patricia Vazquez MD - 07/30/2021 12:51 AM EDT Referral from Dr. Lennie Casillas from [place]. Gallstone pancreatitis. Attempted ERCP in [place] was unsuccessful (couod not pass the scope through the hypopharynx. Attempted ERCP by Dr. Casillas yesterday showed large per-ampullary diverticulum containing food. He flushed it out but could not locate the ampulla. She takes baby ASA. She has hypertension and AF & hypothyroidism. Jina: Arrange for ERCP next week. Sylvia: Explain the procedure to the patient in details and the fact that it was failed twice before indicates that it is rather a challenging case. Could you find the result of imaging study and blood tests. Insignificant medical history besides with a mentioned above. Patricia Vazquez MD documented in this encounterWexner Medical Center09-11-2021 NoteDischarge Summary Helen Lieberman : 1935 ADMIT DATE: 06/01/2021 DISCHARGE DATE: 06/06/2021 PRIMARY CARE PHYSICIAN: RICCI ROBBINS VISIT STATUS: Admission CODE STATUS: Full Code DISCHARGE DIAGNOSES: Active Problems: Acute pancreatitis Abnormal CT of the abdomen Upper abdominal pain Non-intractable vomiting Dilated cbd, acquired Abnormal LFTs Leukocytosis Electrolyte abnormality Resolved Problems: * No resolved hospital problems. * HOSPITAL COURSE: Helen is a 85 y.o. female who presents to the emergency department with abdominal pain, epigastric. ?Pain radiates to the suprapubic region. ?She has had nausea, vomiting at least 4 episodes. ?And then dry heaving. ?No diarrhea, no constipation, no difficulty urinating, no fever. ?Abdominal pain is constant. No recent alcohol use. ?No recent ibuprofen anti-inflammatory use. ?Pain gets worse with palpation. # Elevated lipase and transaminases likely due to gallstone pancreatitis - GI saw patient.?Lipase levels are improving. On empiric rocephin/flagyl but flagyl held now due to facial rash (per nurse but I dont' see any on her forehead as described per nurse. Likely resolved). Also stopped rocephin today on discharge and no signs of infection. GI states bile duct dilated 1.6 cm on U/S 06/02, now improved to 1.2 cm on U/S 06/06, suggesting passed CBD stone. Patient is doing good otherwise and is now on regular diet and tolerateing well. She has no further pain and no other complaints. GI has cleared for discharge. The rest of her other diagnosis this admission include: # Hyponatremia - improved with NS IVF and holding Maxzide. ? # Hypokalemia?- replace # Hypomagnesemia?- replaced # Leukocytosis?- likely due to duodenitis vs ulcer. # Chronic PAF - on propranolol bid and baby ASA # Chronic HTN - resume home norvasc (cozaar and Maxzide held for now) # Chronic hypothyroidism - resume home synthroid Physical exam: Cardiovascular: S1S2 heard, RRR Respiratory: Clear to auscultation bilaterally Abdomen: Soft, non-tender, non-distended with normal bowel sounds. Musculoskeletal: No obvious deformities seen SIGNIFICANT DIAGNOSTIC STUDIES: As above CONSULTANTS: GI MEDICATION CHANGES: RECOMMENDED NEXT STEPS: DISCHARGE MEDICATIONS: Helen Lieberman Home Medication Instructions CASTRO:[id number] Printed on:06/06/21 [id number] Medication Information amLODIPine (NORVASC) 2.5 MG tablet Take 2.5 mg by mouth daily aspirin (ASPIRIN 81) 81 MG chewable tablet Take 81 mg by mouth daily Cholecalciferol (VITAMIN D) 50 MCG (2000 UT) CAPS capsule Take 2,000 Units by mouth daily levothyroxine (SYNTHROID) 75 MCG tablet Take 1 tablet by mouth Daily losartan (COZAAR) 100 MG tablet Take 100 mg by mouth daily oxybutynin (DITROPAN XL) 5 MG extended release tablet Take 1 tablet by mouth daily pantoprazole (PROTONIX) 40 MG tablet Take 40 mg by mouth daily polyethylene glycol (GLYCOLAX) 17 g packet Take 17 g by mouth daily as needed for Constipation propranolol (INDERAL) 20 MG tablet Take 1 tablet by mouth 2 times daily DIET: ADULT DIET; Regular ACTIVITY: No restriction. up with assist PENDING STUDIES: No DISPOSITION: Home FACILITY: Follow up with No follow-up provider specified. follow up with PCP in 1 week INSTRUCTIONS TO MA/SW: Please call patient on day after discharge (must document patient contacted within 2 business days of discharge). FOLLOW UP QUESTIONS FOR MA/SW: 1. Did you get medications filled and taking them as instructed from discharge? 2. Are you following your discharge instructions from your hospital stay? 3. Please confirm patient is scheduled for a follow up appointment within the above time frame. DISCHARGE TIME: > 30 minutes SIGNED: LEONOR BURLESON MD 06/06/2021, 1:24 [facility] note* Diagnosis Gallstone pancreatitis- Primary Acute pancreatitis documented in this encounter [facility] note* Diagnosis Chronic anticoagulation- Primary Long-term (current) use of anticoagulants documented in this encounter [facility] note* Diagnosis Essential hypertension, benign- Primary documented in this encounter [facility] note* Diagnosis Essential hypertension, benign- Primary Paroxysmal atrial fibrillation (HCC) Atrial fibrillation Hypothyroidism, unspecified type Gastroesophageal reflux disease without esophagitis Esophageal reflux Vitamin D deficiency Unspecified vitamin D deficiency TIA (transient ischemic attack) Unspecified transient cerebral ischemia 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 (male)(female) documented in this encounter [facility] note* Diagnosis Paroxysmal atrial fibrillation (HCC)- Primary Atrial fibrillation documented in this encounter [facility] note* Diagnosis Atrial fibrillation, unspecified type (HCC)- Primary documented in this encounter [facility] note* Diagnosis Atrial fibrillation, unspecified type (HCC)- Primary documented in this encounter [facility] note* Diagnosis Atrial fibrillation, unspecified type (HCC)- Primary documented in this encounter [facility] note* Diagnosis Essential hypertension, benign- Primary documented in this encounter [facility] note* Diagnosis Paroxysmal atrial fibrillation (HCC)- Primary Atrial fibrillation documented in this encounter [facility] note* Diagnosis Paroxysmal atrial fibrillation (HCC)- Primary Atrial fibrillation documented in this encounter [facility] note* Diagnosis Paroxysmal atrial fibrillation (HCC) Atrial fibrillation documented in this encounter [facility] note* Diagnosis Essential hypertension, benign- Primary Paroxysmal atrial fibrillation (HCC) Atrial fibrillation Hypothyroidism, unspecified type Gastroesophageal reflux disease without esophagitis Esophageal reflux documented in this encounter [facility] note* Diagnosis Paroxysmal atrial fibrillation (HCC)- Primary Atrial fibrillation documented in this encounter [facility] note* Diagnosis 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 (male)(female) Gastroesophageal reflux disease without esophagitis Esophageal reflux Essential hypertension, benign Hypothyroidism, unspecified type documented in this encounter [facility] note* Diagnosis Atrial fibrillation, unspecified type (HCC)- Primary documented in this encounter [facility] note* Diagnosis 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 (male)(female) Gastroesophageal reflux disease without esophagitis Esophageal reflux Essential hypertension, benign Hypothyroidism, unspecified type Paroxysmal atrial fibrillation (HCC) Atrial fibrillation [facility] Diagnosis Paroxysmal atrial fibrillation (HCC)- Primary Atrial fibrillation documented in this encounter [facility] note* Diagnosis Gastroesophageal reflux disease without esophagitis Esophageal reflux [facility]* Diagnosis Essential hypertension, benign- Primary Paroxysmal atrial fibrillation (HCC) Atrial fibrillation TIA (transient ischemic attack) Unspecified transient cerebral ischemia Hypothyroidism, unspecified type Gastroesophageal reflux disease without esophagitis Esophageal reflux Vitamin D deficiency Unspecified vitamin D deficiency Screening for lipid disorders documented [facility] this [facility]* Diagnosis Paroxysmal atrial fibrillation (HCC)- Primary Atrial fibrillation documented in this encounter [facility] note* Diagnosis Paroxysmal atrial fibrillation (HCC)- Primary Atrial fibrillation [facility]* Diagnosis Paroxysmal atrial fibrillation (HCC)- Primary Atrial fibrillation [facility]* Diagnosis Medicare annual wellness visit, subsequent- Primary Routine general medical examination at a health care facility Post-menopausal Asymptomatic postmenopausal status (age-related) (natural) documented in this [facility]* Diagnosis Paroxysmal atrial fibrillation (HCC)- Primary Atrial fibrillation documented in this encounter [facility] note* Diagnosis Post-menopausal Asymptomatic postmenopausal status (age-related) (natural) documented [facility]* Diagnosis Osteoporoses- Primary documented [facility]* Diagnosis Paroxysmal atrial fibrillation (HCC)- Primary Atrial fibrillation [facility]* Diagnosis Paroxysmal atrial fibrillation (HCC) Atrial fibrillation documented in this encounter [facility] note* Diagnosis Paroxysmal atrial fibrillation (HCC)- Primary Atrial fibrillation [facility]* Diagnosis Paroxysmal atrial fibrillation (HCC)- Primary Atrial fibrillation [facility]* Diagnosis Hypothyroidism, unspecified type documented in this [facility]* Diagnosis Hypothyroidism, unspecified type 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 (male)(female) Gastroesophageal reflux disease without esophagitis Esophageal reflux Essential hypertension, benign [facility] Diagnosis 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 (male)(female) Gastroesophageal reflux disease without esophagitis Esophageal reflux Essential hypertension, benign documented in this encounter [facility] note* Diagnosis Paroxysmal atrial fibrillation (HCC)- Primary Atrial fibrillation documented in this encounter [facility] note* Diagnosis Essential hypertension, benign- Primary Fall at home, sequela Hamstring injury, left, initial encounter Hyponatremia Hyposmolality and/or hyponatremia Atrial fibrillation, unspecified type (HCC) documented in this encounter [facility] note* Diagnosis Paroxysmal atrial fibrillation (HCC)- Primary Atrial fibrillation documented in this encounter [facility] note* Diagnosis Gastroesophageal reflux disease without esophagitis Esophageal reflux Paroxysmal atrial fibrillation (HCC) Atrial fibrillation documented in this encounter [facility] note* Diagnosis Essential hypertension, benign- Primary Hypothyroidism, unspecified type Vitamin D deficiency Unspecified vitamin D deficiency Screening for lipid disorders documented in this encounter [facility] note* Diagnosis Essential hypertension, benign- Primary Scalp lesion Unspecified disorder of skin and subcutaneous tissue documented in this encounter [facility] note* Diagnosis Essential hypertension, benign- Primary Hypothyroidism, unspecified type Paroxysmal atrial fibrillation (HCC) Atrial fibrillation Hyponatremia Hyposmolality and/or hyponatremia Osteoporoses Post-menopausal Asymptomatic postmenopausal status (age-related) (natural) documented in this encounter [facility] note* Diagnosis Paroxysmal atrial fibrillation (HCC)- Primary Atrial fibrillation documented in this encounter [facility] note* Diagnosis Paroxysmal atrial fibrillation (HCC)- Primary Atrial fibrillation documented in this encounter [facility] note* Diagnosis Paroxysmal atrial fibrillation (HCC)- Primary Atrial fibrillation documented in this encounter [facility] note* Diagnosis Atrial fibrillation, unspecified type (HCC)- Primary documented in this encounter [facility] note* Diagnosis Epistaxis- Primary documented in this encounter [facility] Purpose Family History No Family History Records FoundNo Family History Records FoundNo Family History Records FoundNo Family History Records FoundNo Family History Records FoundNo Family History Records FoundNo Family History Records FoundNo Family History Records FoundNo Family History Records Found Advance Directives No Advanced Directives Records Found Date Activated Date Inactivated Comments 08/09/2024 11:04 PM 08/14/2024 3:05 PM Question Answer Comments DNR Order Discussed With: Patient Date Activated Date Inactivated Comments 08/09/2021 7:51 PM 08/11/2021 6:32 PM Question Answer Comments Full Code Order Discussed With: Patient Date Activated Date Inactivated Comments 08/09/2021 7:48 PM 08/09/2021 7:51 PM Question Answer Comments Full Code Order Discussed With: Patient Documents on File Type Date Recorded 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 ACP-Advance Directive ACP-Power of Orthotist Latest Code Status on File Code Status Date Activated Date Inactivated Comments Full Code 06/20/2020 11:22 AM Full Code 06/20/2020 7:15 AM 06/20/2020 11:22 AM Latest Code Status on File Code Status Date Activated Date Inactivated Comments Full Code 06/20/2020 11:22 AM 06/20/2020 3:22 PM Latest Code Status on File Code Status Date Activated Date Inactivated Comments Full Code 06/02/2021 2:02 AM 06/06/2021 2:50 PM Full Code 06/20/2020 11:22 AM 06/20/2020 3:22 PM Documents on File Type Date Recorded 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 Advance Directive(s) 07/29/2021 10:22 AM Documents on File Type Date Recorded 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 Advance Directive(s) 08/09/2021 6:01 PM Advance Directive(s) 08/07/2021 12:38 PM Advance Directive(s) 07/29/2021 10:22 AM Latest Code Status on File Code Status Date Activated Date Inactivated Comments Full Code 08/09/2021 7:51 PM 08/11/2021 6:32 PM Full Code Order Discussed With: Patient Full Code 08/09/2021 7:48 PM 08/09/2021 7:51 PM Documents on File Type Date Recorded 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 Advance Directive(s) 08/09/2021 6:01 PM Advance Directive(s) 08/07/2021 12:38 PM Advance Directive(s) 07/29/2021 10:22 AM Latest Code Status on File Code Status Date Activated Date Inactivated Comments Full Code 08/09/2021 7:51 PM 08/11/2021 6:32 PM Full Code 08/09/2021 7:48 PM 08/09/2021 7:51 PM Latest Code Status on File Code Status Date Activated Date Inactivated Comments Full Code 08/09/2021 7:51 PM 08/11/2021 6:32 PM Question Answer Comments Full Code Order Discussed With: Patient Code Status History Code Status Date Activated Date Inactivated Comments Full Code 08/09/2021 7:48 PM 08/09/2021 7:51 PM Question Answer Comments Full Code Order Discussed With: Patient Date Activated Date Inactivated Comments 08/09/2021 7:51 PM 08/11/2021 6:32 PM Question Answer Comments Full Code Order Discussed With: Patient Date Activated Date Inactivated Comments 08/09/2021 7:48 PM 08/09/2021 7:51 PM Date Activated Date Inactivated Comments 08/09/2024 11:04 PM Date Activated Date Inactivated Comments 08/09/2024 11:04 PM 08/14/2024 3:05 PM Question Answer Comments DNR Order Discussed With: Patient Date Activated Date Inactivated Comments 08/09/2021 7:51 PM 08/11/2021 6:32 PM Question Answer Comments Full Code Order Discussed With: Patient Date Activated Date Inactivated Comments 08/09/2021 7:48 PM 08/09/2021 7:51 PM Question Answer Comments Full Code Order Discussed With: Patient Discharge Instructions * Attachments The following attachments cannot be sent through Care Everywhere. * Hypertension: General Info (Bolivian) * Lightheadedness or Faintness ([place]ivian) documented in this encounter* Instructions* Yuliya Santillan RN - 06/13/2020 HOLD TRIAMTERENE HYDROCHLOROTHIAZIDE (MAXIDE) DAY OF SURGERY MAY TAKE ALL OTHER MEDICATIONS PRESCRIBED ARRIVE 2 HOURS PRIOR TO SURGERY BE AT THE HOSPITAL AT 7:30 am Check in at 2nd floor registration using photo ID and insurance card Have a responsible adult with you that will be able to take you home and will be able to stay with you when you are home. If using public transportation a responsible adult must accompany you NO FOOD AFTER MIDNIGHT THE NIGHT BEFORE SURGERY This includes candy, gum, and mints MAY have CLEAR LIQUIDS (WATER, APPLE JUICE, CRANBERRY JUICE, BLACK COFFEE, TEA, CARBONATED POP GATORADE) To drink until arrival time for surgery Wear loose comfortable clean clothing that you can go home in Leave all jewelry, contact lenses and valuables at home No one under the age of 18 permitted Bring printed medication list with you Write the date and times of last dose DO NOT USE alcohol, recreational drugs or tobacco products for 24 hours before surgery Please write down any questions that you may have for your surgeon, anesthesiologist, Etc. documented in this encounter* Instructions* Tyree Crews DPM - 06/20/2020 nwb left foot Elevate left foot above the nose for the next 5-7 days Ice to behind the knee and the front of the knee Take pain meds and muscle relaxation medication as directed and prn Call dr. crews with problems [phone] documented in this encounter* Instructions* Kodak Salazar DO - 01/07/2021 Return if any problems or concerns. * Attachments The following attachments cannot be sent through Care Everywhere. * Nausea and Vomiting (B[place]ivian) * Altered Mental Status (B[place]ivian) * Abdominal Pain (B[place]ivian) documented in this encounter Assessments Diagnosis Lightheaded Dizziness and giddiness Hypertension, unspecified type Chronic hyponatremia Hyposmolality and/or hyponatremia Diagnosis Spontaneous rupture of extensor tendon of left ankle Diagnosis Altered mental status, unspecified altered mental status type- Primary Epigastric pain Abdominal pain, epigastric Non-intractable vomiting with nausea, unspecified vomiting type History of Present Illness * Yuliya Almanzar RN - 06/20/2020 1:15 PM EDT Disch inst to pt & family, both verbalize understanding, disch to home via w/c to family in waiting vehicle with valuables * Yuliya Almanzar RN - 06/20/2020 12:54 PM EDT Pt up to restroom via w/c states she voided without difficulty * Yuliya Almanzar RN - 06/20/2020 12:15 PM EDT Pt denies pain or nausea, wali D&I, phase 1 disch criteria met * Yuliya Almanzar RN - 06/20/2020 12:04 PM EDT P.o. fluids shukri well * Yuliya Almanzar RN - 06/20/2020 11:50 AM EDT Pt voided on bedpan * Yuliya Almanzar RN - 06/20/2020 11:35 AM EDT Arrived via cart, monitor shows nsr, pt's family vs, pt's dentures returned to pt documented in this encounter Reason for Referral Specialty Diagnoses / Procedures Referred By Contsavannah t Referred To Contact Nephrology Diagnoses Essential hypertension, benign Procedures CONSULT TO NEPHROLOGY OFFICE/OUTPATIENT [facility] 60-74 MINUTES Tanya Lozano APRN.[facility] [address] [place] [address] Referral ID Status Reason Start Date Expiration Date Visits Requested Visits Authorized [id number] Pending Review PCP Requested Referral 01/13/2022 01/13/2023 1 1 Additional Source Comments INFORMATION SOURCE (unrecogn ized section and content) DATE CREATED AUTHOR 03/21/2018 [facility] DATE CREATED AUTHOR AUTHOR'S ORGANIZ ATION 06/19/2021 [facility] DATE CREATED AUTHOR AUTHOR'S ORGANIZ ATION 08/08/2021 [facility] DATE CREATED AUTHOR AUTHOR'S ORGANIZ ATION 08/13/2021 [facility] DATE CREATED AUTHOR AUTHOR'S ORGANIZ ATION 05/07/2024 [facility] DATE CREATED AUTHOR AUTHOR'S ORGANIZ ATION 01/24/2025 [facility] DATE CREATED AUTHOR AUTHOR'S ORGANIZ ATION 06/28/2025 [facility] DATE CREATED AUTHOR AUTHOR'S ORGANIZ ATION 06/29/2025 [facility] DATE CREATED AUTHOR AUTHOR'S ORGANIZ ATION 06/29/2025 [facility] Reason for Visit (unrecogniz ed section and content) Reason Comments Hypertension Dizziness Reason Comments Abdominal Pain sudden onset after e ating around 2pm, emesis x1 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 Altered Mental Status new confusion Reason Comments Appointment Reason Onset Date Comments Refill Request 12/17/2021 Reason Comments Coumadin/INR Reason Comments Nurse Visit Reason Comments Missed Appointment Reason Comments Hypertension Reason Comments Results Reason Comments Refill Request Reason Onset Date Comments Refill Request 08/12/2022 Reason Onset Date Comments Refill Request 11/17/2022 Reason Comments Coumadin/INR Reason Onset Date Comments Refill Request 12/09/2022 Reason Comments Patient Update Reason Onset Date Comments ER F/U 01/17/2023 Reason Comments Results Labs Reason Onset Date Comments Refill Request 07/14/2023 Reason Comments Medicare Wellness Exam Reason Onset Date Comments Refill Request 01/16/2024 Reason Onset Date Comments Refill Request 03/06/2024 Reason Onset Date Comments Refill Request 04/09/2024 Reason Comments Statement of Physician Reason Comments Home Care MD to follow Reason Comments Home Care Confirmation Call Reason Onset Date Comments Transition Of Care 08/15/2024 [facility] Discharge to SNF Reason Onset Date Comments Transition Of Care 08/30/2024 Discharged fr om SNF to home with CC Home health care Reason Onset Date Comments Transition Of Care 08/30/2024 SNF D/C Reason Onset Date Comments Transition Of Care 09/05/2024 TCM f/u Reason Onset Date Comments Refill Request 09/05/2024 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 [facility] Reason Comments Orders Mammogram order Reason Comments Lab Orders Reason Onset Date Comments Refill Request 11/26/2024 Reason Onset Date Comments Results 11/26/2024 Reason Comments Hypertension Follow up Reason Onset Date Comments Results 12/16/2024 Reason Comments Follow Up 2 WEEK FOLLOW UP BLO OD PRESSURE. Reason Onset Date Comments Refill Request 12/20/2024 Reason Comments F/U HTN 3 Month Reason Onset Date Comments Refill Request 03/13/2025 Reason Onset Date Comments ED Follow Up 04/01/2025 [facility]25 Reason Comments Patient Question Reason Onset Date Comments Refill Request 06/05/2025 Reason Comments Follow Up Reason Onset Date Comments ED Follow Up 06/02/2025 [facility] 06/02/20 25 Source Comments (unrecognize d section and content) In the event this informatio n is protected by the Federal Confidentiality of Alcohol and Drug Abuse Patient Records regulations: The Federal rules restrict any use of the information to criminally investigate or prosecute any alcohol or drug abuse patient.[facility] the event this information is protected by the Federal Confidentiality of Alcohol and Drug Abuse Patient Records regulations: The Federal rules restrict any use of the information to criminally investigate or prosecute any alcohol or drug abuse patient.[facility] CenterIn the event this information is protected by the Federal Confidentiality of Alcohol and Drug Abuse Patient Records regulations: The Federal rules restrict any use of the information to criminally investigate or prosecute any alcohol or drug abuse patient.[facility] CenterIn the event this information is protected by the Federal Confidentiality of Alcohol and Drug Abuse Patient Records regulations: The Federal rules restrict any use of the information to criminally investigate or prosecute any alcohol or drug abuse patient.[facility] CenterIn the event this information is protected by the Federal Confidentiality of Alcohol and Drug Abuse Patient Records regulations: The Federal rules restrict any use of the information to criminally investigate or prosecute any alcohol or drug abuse patient.[facility] CenterIn the event this information is protected by the Federal Confidentiality of Alcohol and Drug Abuse Patient Records regulations: The Federal rules restrict any use of the information to criminally investigate or prosecute any alcohol or drug abuse patient.[facility] CenterIn the event this information is protected by the Federal Confidentiality of Alcohol and Drug Abuse Patient Records regulations: The Federal rules restrict any use of the information to criminally investigate or prosecute any alcohol or drug abuse patient.[facility] CenterIn the event this information is protected by the Federal Confidentiality of Alcohol and Drug Abuse Patient Records regulations: The Federal rules restrict any use of the information to criminally investigate or prosecute any alcohol or drug abuse patient.[facility] CenterIn the event this information is protected by the Federal Confidentiality of Alcohol and Drug Abuse Patient Records regulations: The Federal rules restrict any use of the information to criminally investigate or prosecute any alcohol or drug abuse patient.[facility] CenterIn the event this information is protected by the Federal Confidentiality of Alcohol and Drug Abuse Patient Records regulations: The Federal rules restrict any use of the information to criminally investigate or prosecute any alcohol or drug abuse patient.[facility] CenterIn the event this information is protected by the Federal Confidentiality of Alcohol and Drug Abuse Patient Records regulations: The Federal rules restrict any use of the information to criminally investigate or prosecute any alcohol or drug abuse patient.[facility] CenterIn the event this information is protected by the Federal Confidentiality of Alcohol and Drug Abuse Patient Records regulations: The Federal rules restrict any use of the information to criminally investigate or prosecute any alcohol or drug abuse patient.[facility] CenterIn the event this information is protected by the Federal Confidentiality of Alcohol and Drug Abuse Patient Records regulations: The Federal rules restrict any use of the information to criminally investigate or prosecute any alcohol or drug abuse patient.[facility] CenterIn the event this information is protected by the Federal Confidentiality of Alcohol and Drug Abuse Patient Records regulations: The Federal rules restrict any use of the information to criminally investigate or prosecute any alcohol or drug abuse patient.[facility] CenterIn the event this information is protected by the Federal Confidentiality of Alcohol and Drug Abuse Patient Records regulations: The Federal rules restrict any use of the information to criminally investigate or prosecute any alcohol or drug abuse patient.[facility] CenterIn the event this information is protected by the Federal Confidentiality of Alcohol and Drug Abuse Patient Records regulations: The Federal rules restrict any use of the information to criminally investigate or prosecute any alcohol or drug abuse patient.[facility] CenterIn the event this information is protected by the Federal Confidentiality of Alcohol and Drug Abuse Patient Records regulations: The Federal rules restrict any use of the information to criminally investigate or prosecute any alcohol or drug abuse patient.[facility] CenterIn the event this information is protected by the Federal Confidentiality of Alcohol and Drug Abuse Patient Records regulations: The Federal rules restrict any use of the information to criminally investigate or prosecute any alcohol or drug abuse patient.[facility] CenterIn the event this information is protected by the Federal Confidentiality of Alcohol and Drug Abuse Patient Records regulations: The Federal rules restrict any use of the information to criminally investigate or prosecute any alcohol or drug abuse patient.[facility] CenterIn the event this information is protected by the Federal Confidentiality of Alcohol and Drug Abuse Patient Records regulations: The Federal rules restrict any use of the information to criminally investigate or prosecute any alcohol or drug abuse patient.[facility] CenterIn the event this information is protected by the Federal Confidentiality of Alcohol and Drug Abuse Patient Records regulations: The Federal rules restrict any use of the information to criminally investigate or prosecute any alcohol or drug abuse patient.[facility] CenterIn the event this information is protected by the Federal Confidentiality of Alcohol and Drug Abuse Patient Records regulations: The Federal rules restrict any use of the information to criminally investigate or prosecute any alcohol or drug abuse patient.[facility] CenterIn the event this information is protected by the Federal Confidentiality of Alcohol and Drug Abuse Patient Records regulations: The Federal rules restrict any use of the information to criminally investigate or prosecute any alcohol or drug abuse patient.[facility] CenterIn the event this information is protected by the Federal Confidentiality of Alcohol and Drug Abuse Patient Records regulations: The Federal rules restrict any use of the information to criminally investigate or prosecute any alcohol or drug abuse patient.[facility] CenterIn the event this information is protected by the Federal Confidentiality of Alcohol and Drug Abuse Patient Records regulations: The Federal rules restrict any use of the information to criminally investigate or prosecute any alcohol or drug abuse patient.[facility] CenterIn the event this information is protected by the Federal Confidentiality of Alcohol and Drug Abuse Patient Records regulations: The Federal rules restrict any use of the information to criminally investigate or prosecute any alcohol or drug abuse patient.[facility] CenterIn the event this information is protected by the Federal Confidentiality of Alcohol and Drug Abuse Patient Records regulations: The Federal rules restrict any use of the information to criminally investigate or prosecute any alcohol or drug abuse patient.[facility] CenterIn the event this information is protected by the Federal Confidentiality of Alcohol and Drug Abuse Patient Records regulations: The Federal rules restrict any use of the information to criminally investigate or prosecute any alcohol or drug abuse patient.[facility] CenterIn the event this information is protected by the Federal Confidentiality of Alcohol and Drug Abuse Patient Records regulations: The Federal rules restrict any use of the information to criminally investigate or prosecute any alcohol or drug abuse patient.[facility] CenterIn the event this information is protected by the Federal Confidentiality of Alcohol and Drug Abuse Patient Records regulations: The Federal rules restrict any use of the information to criminally investigate or prosecute any alcohol or drug abuse patient.[facility] CenterIn the event this information is protected by the Federal Confidentiality of Alcohol and Drug Abuse Patient Records regulations: The Federal rules restrict any use of the information to criminally investigate or prosecute any alcohol or drug abuse patient.[facility] CenterIn the event this information is protected by the Federal Confidentiality of Alcohol and Drug Abuse Patient Records regulations: The Federal rules restrict any use of the information to criminally investigate or prosecute any alcohol or drug abuse patient.[facility] CenterIn the event this information is protected by the Federal Confidentiality of Alcohol and Drug Abuse Patient Records regulations: The Federal rules restrict any use of the information to criminally investigate or prosecute any alcohol or drug abuse patient.[facility] CenterIn the event this information is protected by the Federal Confidentiality of Alcohol and Drug Abuse Patient Records regulations: The Federal rules restrict any use of the information to criminally investigate or prosecute any alcohol or drug abuse patient.[facility] CenterIn the event this information is protected by the Federal Confidentiality of Alcohol and Drug Abuse Patient Records regulations: The Federal rules restrict any use of the information to criminally investigate or prosecute any alcohol or drug abuse patient.[facility] CenterIn the event this information is protected by the Federal Confidentiality of Alcohol and Drug Abuse Patient Records regulations: The Federal rules restrict any use of the information to criminally investigate or prosecute any alcohol or drug abuse patient.[facility] CenterIn the event this information is protected by the Federal Confidentiality of Alcohol and Drug Abuse Patient Records regulations: The Federal rules restrict any use of the information to criminally investigate or prosecute any alcohol or drug abuse patient.[facility] CenterIn the event this information is protected by the Federal Confidentiality of Alcohol and Drug Abuse Patient Records regulations: The Federal rules restrict any use of the information to criminally investigate or prosecute any alcohol or drug abuse patient.[facility] CenterIn the event this information is protected by the Federal Confidentiality of Alcohol and Drug Abuse Patient Records regulations: The Federal rules restrict any use of the information to criminally investigate or prosecute any alcohol or drug abuse patient.[facility] CenterIn the event this information is protected by the Federal Confidentiality of Alcohol and Drug Abuse Patient Records regulations: The Federal rules restrict any use of the information to criminally investigate or prosecute any alcohol or drug abuse patient.[facility] CenterIn the event this information is protected by the Federal Confidentiality of Alcohol and Drug Abuse Patient Records regulations: The Federal rules restrict any use of the information to criminally investigate or prosecute any alcohol or drug abuse patient.[facility] CenterIn the event this information is protected by the Federal Confidentiality of Alcohol and Drug Abuse Patient Records regulations: The Federal rules restrict any use of the information to criminally investigate or prosecute any alcohol or drug abuse patient.[facility] CenterIn the event this information is protected by the Federal Confidentiality of Alcohol and Drug Abuse Patient Records regulations: The Federal rules restrict any use of the information to criminally investigate or prosecute any alcohol or drug abuse patient.[facility] CenterIn the event this information is protected by the Federal Confidentiality of Alcohol and Drug Abuse Patient Records regulations: The Federal rules restrict any use of the information to criminally investigate or prosecute any alcohol or drug abuse patient.[facility] CenterIn the event this information is protected by the Federal Confidentiality of Alcohol and Drug Abuse Patient Records regulations: The Federal rules restrict any use of the information to criminally investigate or prosecute any alcohol or drug abuse patient.[facility] CenterIn the event this information is protected by the Federal Confidentiality of Alcohol and Drug Abuse Patient Records regulations: The Federal rules restrict any use of the information to criminally investigate or prosecute any alcohol or drug abuse patient.[facility] CenterIn the event this information is protected by the Federal Confidentiality of Alcohol and Drug Abuse Patient Records regulations: The Federal rules restrict any use of the information to criminally investigate or prosecute any alcohol or drug abuse patient.[facility] CenterIn the event this information is protected by the Federal Confidentiality of Alcohol and Drug Abuse Patient Records regulations: The Federal rules restrict any use of the information to criminally investigate or prosecute any alcohol or drug abuse patient.[facility] CenterIn the event this information is protected by the Federal Confidentiality of Alcohol and Drug Abuse Patient Records regulations: The Federal rules restrict any use of the information to criminally investigate or prosecute any alcohol or drug abuse patient.[facility] CenterIn the event this information is protected by the Federal Confidentiality of Alcohol and Drug Abuse Patient Records regulations: The Federal rules restrict any use of the information to criminally investigate or prosecute any alcohol or drug abuse patient.[facility] CenterIn the event this information is protected by the Federal Confidentiality of Alcohol and Drug Abuse Patient Records regulations: The Federal rules restrict any use of the information to criminally investigate or prosecute any alcohol or drug abuse patient.[facility] CenterIn the event this information is protected by the Federal Confidentiality of Alcohol and Drug Abuse Patient Records regulations: The Federal rules restrict any use of the information to criminally investigate or prosecute any alcohol or drug abuse patient.[facility] CenterIn the event this information is protected by the Federal Confidentiality of Alcohol and Drug Abuse Patient Records regulations: The Federal rules restrict any use of the information to criminally investigate or prosecute any alcohol or drug abuse patient.[facility] CenterIn the event this information is protected by the Federal Confidentiality of Alcohol and Drug Abuse Patient Records regulations: The Federal rules restrict any use of the information to criminally investigate or prosecute any alcohol or drug abuse patient.[facility] CenterIn the event this information is protected by the Federal Confidentiality of Alcohol and Drug Abuse Patient Records regulations: The Federal rules restrict any use of the information to criminally investigate or prosecute any alcohol or drug abuse patient.[facility] CenterIn the event this information is protected by the Federal Confidentiality of Alcohol and Drug Abuse Patient Records regulations: The Federal rules restrict any use of the information to criminally investigate or prosecute any alcohol or drug abuse patient.[facility] CenterIn the event this information is protected by the Federal Confidentiality of Alcohol and Drug Abuse Patient Records regulations: The Federal rules restrict any use of the information to criminally investigate or prosecute any alcohol or drug abuse patient.[facility] CenterIn the event this information is protected by the Federal Confidentiality of Alcohol and Drug Abuse Patient Records regulations: The Federal rules restrict any use of the information to criminally investigate or prosecute any alcohol or drug abuse patient.[facility] CenterIn the event this information is protected by the Federal Confidentiality of Alcohol and Drug Abuse Patient Records regulations: The Federal rules restrict any use of the information to criminally investigate or prosecute any alcohol or drug abuse patient.[facility] CenterIn the event this information is protected by the Federal Confidentiality of Alcohol and Drug Abuse Patient Records regulations: The Federal rules restrict any use of the information to criminally investigate or prosecute any alcohol or drug abuse patient.[facility] CenterIn the event this information is protected by the Federal Confidentiality of Alcohol and Drug Abuse Patient Records regulations: The Federal rules restrict any use of the information to criminally investigate or prosecute any alcohol or drug abuse patient.[facility] CenterIn the event this information is protected by the Federal Confidentiality of Alcohol and Drug Abuse Patient Records regulations: The Federal rules restrict any use of the information to criminally investigate or prosecute any alcohol or drug abuse patient.[facility] CenterIn the event this information is protected by the Federal Confidentiality of Alcohol and Drug Abuse Patient Records regulations: The Federal rules restrict any use of the information to criminally investigate or prosecute any alcohol or drug abuse patient.[facility] CenterIn the event this information is protected by the Federal Confidentiality of Alcohol and Drug Abuse Patient Records regulations: The Federal rules restrict any use of the information to criminally investigate or prosecute any alcohol or drug abuse patient.[facility] CenterIn the event this information is protected by the Federal Confidentiality of Alcohol and Drug Abuse Patient Records regulations: The Federal rules restrict any use of the information to criminally investigate or prosecute any alcohol or drug abuse patient.[facility] CenterIn the event this information is protected by the Federal Confidentiality of Alcohol and Drug Abuse Patient Records regulations: The Federal rules restrict any use of the information to criminally investigate or prosecute any alcohol or drug abuse patient.[facility] CenterIn the event this information is protected by the Federal Confidentiality of Alcohol and Drug Abuse Patient Records regulations: The Federal rules restrict any use of the information to criminally investigate or prosecute any alcohol or drug abuse patient.[facility] CenterIn the event this information is protected by the Federal Confidentiality of Alcohol and Drug Abuse Patient Records regulations: The Federal rules restrict any use of the information to criminally investigate or prosecute any alcohol or drug abuse patient.[facility] CenterIn the event this information is protected by the Federal Confidentiality of Alcohol and Drug Abuse Patient Records regulations: The Federal rules restrict any use of the information to criminally investigate or prosecute any alcohol or drug abuse patient.[facility] CenterIn the event this information is protected by the Federal Confidentiality of Alcohol and Drug Abuse Patient Records regulations: The Federal rules restrict any use of the information to criminally investigate or prosecute any alcohol or drug abuse patient.[facility] CenterIn the event this information is protected by the Federal Confidentiality of Alcohol and Drug Abuse Patient Records regulations: The Federal rules restrict any use of the information to criminally investigate or prosecute any alcohol or drug abuse patient.[facility] CenterIn the event this information is protected by the Federal Confidentiality of Alcohol and Drug Abuse Patient Records regulations: The Federal rules restrict any use of the information to criminally investigate or prosecute any alcohol or drug abuse patient.[facility] CenterIn the event this information is protected by the Federal Confidentiality of Alcohol and Drug Abuse Patient Records regulations: The Federal rules restrict any use of the information to criminally investigate or prosecute any alcohol or drug abuse patient.[facility] CenterIn the event this information is protected by the Federal Confidentiality of Alcohol and Drug Abuse Patient Records regulations: The Federal rules restrict any use of the information to criminally investigate or prosecute any alcohol or drug abuse patient.[facility] CenterIn the event this information is protected by the Federal Confidentiality of Alcohol and Drug Abuse Patient Records regulations: The Federal rules restrict any use of the information to criminally investigate or prosecute any alcohol or drug abuse patient.[facility] CenterIn the event this information is protected by the Federal Confidentiality of Alcohol and Drug Abuse Patient Records regulations: The Federal rules restrict any use of the information to criminally investigate or prosecute any alcohol or drug abuse patient.[facility] CenterIn the event this information is protected by the Federal Confidentiality of Alcohol and Drug Abuse Patient Records regulations: The Federal rules restrict any use of the information to criminally investigate or prosecute any alcohol or drug abuse patient.[facility] CenterIn the event this information is protected by the Federal Confidentiality of Alcohol and Drug Abuse Patient Records regulations: The Federal rules restrict any use of the information to criminally investigate or prosecute any alcohol or drug abuse patient.[facility] CenterIn the event this information is protected by the Federal Confidentiality of Alcohol and Drug Abuse Patient Records regulations: The Federal rules restrict any use of the information to criminally investigate or prosecute any alcohol or drug abuse patient.[facility] CenterIn the event this information is protected by the Federal Confidentiality of Alcohol and Drug Abuse Patient Records regulations: The Federal rules restrict any use of the information to criminally investigate or prosecute any alcohol or drug abuse patient.[facility] CenterIn the event this information is protected by the Federal Confidentiality of Alcohol and Drug Abuse Patient Records regulations: The Federal rules restrict any use of the information to criminally investigate or prosecute any alcohol or drug abuse patient.[facility] CenterIn the event this information is protected by the Federal Confidentiality of Alcohol and Drug Abuse Patient Records regulations: The Federal rules restrict any use of the information to criminally investigate or prosecute any alcohol or drug abuse patient.[facility] CenterIn the event this information is protected by the Federal Confidentiality of Alcohol and Drug Abuse Patient Records regulations: The Federal rules restrict any use of the information to criminally investigate or prosecute any alcohol or drug abuse patient.[facility] CenterIn the event this information is protected by the Federal Confidentiality of Alcohol and Drug Abuse Patient Records regulations: The Federal rules restrict any use of the information to criminally investigate or prosecute any alcohol or drug abuse patient.[facility] CenterIn the event this information is protected by the Federal Confidentiality of Alcohol and Drug Abuse Patient Records regulations: The Federal rules restrict any use of the information to criminally investigate or prosecute any alcohol or drug abuse patient.[facility] CenterIn the event this information is protected by the Federal Confidentiality of Alcohol and Drug Abuse Patient Records regulations: The Federal rules restrict any use of the information to criminally investigate or prosecute any alcohol or drug abuse patient.[facility] CenterIn the event this information is protected by the Federal Confidentiality of Alcohol and Drug Abuse Patient Records regulations: The Federal rules restrict any use of the information to criminally investigate or prosecute any alcohol or drug abuse patient.[facility] CenterIn the event this information is protected by the Federal Confidentiality of Alcohol and Drug Abuse Patient Records regulations: The Federal rules restrict any use of the information to criminally investigate or prosecute any alcohol or drug abuse patient.[facility] CenterIn the event this information is protected by the Federal Confidentiality of Alcohol and Drug Abuse Patient Records regulations: The Federal rules restrict any use of the information to criminally investigate or prosecute any alcohol or drug abuse patient.[facility] CenterIn the event this information is protected by the Federal Confidentiality of Alcohol and Drug Abuse Patient Records regulations: The Federal rules restrict any use of the information to criminally investigate or prosecute any alcohol or drug abuse patient.[facility] CenterIn the event this information is protected by the Federal Confidentiality of Alcohol and Drug Abuse Patient Records regulations: The Federal rules restrict any use of the information to criminally investigate or prosecute any alcohol or drug abuse patient.[facility] CenterIn the event this information is protected by the Federal Confidentiality of Alcohol and Drug Abuse Patient Records regulations: The Federal rules restrict any use of the information to criminally investigate or prosecute any alcohol or drug abuse patient.[facility] CenterIn the event this information is protected by the Federal Confidentiality of Alcohol and Drug Abuse Patient Records regulations: The Federal rules restrict any use of the information to criminally investigate or prosecute any alcohol or drug abuse patient.[facility] CenterIn the event this information is protected by the Federal Confidentiality of Alcohol and Drug Abuse Patient Records regulations: The Federal rules restrict any use of the information to criminally investigate or prosecute any alcohol or drug abuse patient.[facility] CenterIn the event this information is protected by the Federal Confidentiality of Alcohol and Drug Abuse Patient Records regulations: The Federal rules restrict any use of the information to criminally investigate or prosecute any alcohol or drug abuse patient.[facility] CenterIn the event this information is protected by the Federal Confidentiality of Alcohol and Drug Abuse Patient Records regulations: The Federal rules restrict any use of the information to criminally investigate or prosecute any alcohol or drug abuse patient.[facility] CenterIn the event this information is protected by the Federal Confidentiality of Alcohol and Drug Abuse Patient Records regulations: The Federal rules restrict any use of the information to criminally investigate or prosecute any alcohol or drug abuse patient.[facility] CenterIn the event this information is protected by the Federal Confidentiality of Alcohol and Drug Abuse Patient Records regulations: The Federal rules restrict any use of the information to criminally investigate or prosecute any alcohol or drug abuse patient.[facility] CenterIn the event this information is protected by the Federal Confidentiality of Alcohol and Drug Abuse Patient Records regulations: The Federal rules restrict any use of the information to criminally investigate or prosecute any alcohol or drug abuse patient.[facility] CenterIn the event this information is protected by the Federal Confidentiality of Alcohol and Drug Abuse Patient Records regulations: The Federal rules restrict any use of the information to criminally investigate or prosecute any alcohol or drug abuse patient.[facility] CenterIn the event this information is protected by the Federal Confidentiality of Alcohol and Drug Abuse Patient Records regulations: The Federal rules restrict any use of the information to criminally investigate or prosecute any alcohol or drug abuse patient.[facility] CenterIn the event this information is protected by the Federal Confidentiality of Alcohol and Drug Abuse Patient Records regulations: The Federal rules restrict any use of the information to criminally investigate or prosecute any alcohol or drug abuse patient.[facility] Care Teams (unrecognized sec tion and content) Radio Time Salesperson Relationship Specialty Start Date End Date Ricci Robbins PCP - General 12/28/17 Radio Time Salesperson Relationship Specialty Start Date End Date Tanya Lozano, STREET ROLLER ENGINEER.[employer] [address] [place] [address] PCP - General Internal Medicine 08/18/21 Radio Time Salesperson Relationship Specialty Start Date End Date Tanya Lozano, STREET ROLLER ENGINEER.[employer] [address] [facility], [place] [id number] PCP - General Internal Medicine 08/18/21 Radio Time Salesperson Relationship Specialty Start Date End Date Tanya Lozano, STREET ROLLER ENGINEER.[employer] [address] [facility], [place] [id number] PCP - General Internal Medicine 08/18/21 Radio Time Salesperson Relationship Specialty Start Date End Date Tanya Lozano, STREET ROLLER ENGINEER.[employer] [address] [place] [address] PCP - General Internal Medicine 08/18/21 Radio Time Salesperson Relationship Specialty Start Date End Date Tanya Lozano, STREET ROLLER ENGINEER.[employer] [address] [place] [address] PCP - General Internal Medicine 08/18/21 Radio Time Salesperson Relationship Specialty Start Date End Date Tanya Lozano, STREET ROLLER ENGINEER.[employer] [address] [place] [address] PCP - General Internal Medicine 08/18/21 Radio Time Salesperson Relationship Specialty Start Date End Date Tanya Lozano, STREET ROLLER ENGINEER.[employer] [address] [place] [address] PCP - General Internal Medicine 08/18/21 Radio Time Salesperson Relationship Specialty Start Date End Date Tanya Lozano, STREET ROLLER ENGINEER.[employer] [address] [place] [address] PCP - General Internal Medicine 08/18/21 Radio Time Salesperson Relationship Specialty Start Date End Date Tanya Lozano, STREET ROLLER ENGINEER.[employer] [address] [place] [address] PCP - General Internal Medicine 08/18/21 Radio Time Salesperson Relationship Specialty Start Date End Date Tanya Lozano, STREET ROLLER ENGINEER.[employer] [address] [place] [address] PCP - General Internal Medicine 08/18/21 Radio Time Salesperson Relationship Specialty Start Date End Date Tanya Lozano STRE[address] ROLLER ENGINEER.[employer] [address] [place] [address] PCP - General Internal Medicine 08/18/21 Radio Time Salesperson Relationship Specialty Start Date End Date Tanya Lozano STRE[address] ROLLER ENGINEER.[employer] [address] [facility], [place] [id number] PCP - General Internal Medicine 08/18/21 Radio Time Salesperson Relationship Specialty Start Date End Date Tanya Lozano, STREET ROLLER ENGINEER.[employer] [address] [facility], [place] [id number] PCP - General Internal Medicine 08/18/21 Radio Time Salesperson Relationship Specialty Start Date End Date Tanya Lozano, STREET ROLLER ENGINEER.[employer] [address] [facility], [place] [id number] PCP - General Internal Medicine 08/18/21 Tomeka Gore MD [address] [place] [address] Nephrology 07/19/23 Andreas Casillas MD [address] [place] [address] Gastroenterology 07/19/23 Radio Time Salesperson Relationship Specialty Start Date End Date Tanya Lozano, STREET ROLLER ENGINEER.[employer] [address] [place] [address] PCP - General Internal Medicine 08/18/21 Tomeka Gore MD [address] [place] [address] Nephrology 07/19/23 Andreas Casillas MD [address] [place] [address] Gastroenterology 07/19/23 Radio Time Salesperson Relationship Specialty Start Date End Date Tanya Lozano, STREET ROLLER ENGINEER.[employer] [address] [place] [address] [place] [address] PCP - General Internal Medicine 08/18/21 Tomeka Gore MD [address] [place] [address] Nephrology 07/19/23 Andreas Casillas MD [address] [facility] [address] [place] [address] Gastroenterology 07/19/23 Radio Time Salesperson Relationship Specialty Start Date End Date Tanya Lozano, STREET ROLLER ENGINEER.[employer] [address] [place] [address] [place] [address] PCP - General Internal Medicine 08/18/21 Tomeka Gore MD [address] [place] [address] Nephrology 07/19/23 Andreas Casillas MD [address] [place] [address] Gastroenterology 07/19/23 Radio Time Salesperson Relationship Specialty Start Date End Date Tanya Lozano, STREET ROLLER ENGINEER.[employer] [address] [place] [address] [place] [address] PCP - General Internal Medicine 08/18/21 Tomeka Gore MD [address] [place] [address] Nephrology 07/19/23 Andreas Casillas MD [address] [facility] [address] [place] [address] Gastroenterology 07/19/23 Radio Time Salesperson Relationship Specialty Start Date End Date Tanya Lozano, STREET ROLLER ENGINEER.[employer] [address] [place], [place] [address] [address] PCP - General Internal Medicine 08/18/21 Tomeka Gore MD [address] [place], [place] 767173 [phone] Nephrology 07/19/23 Andreas Casillas MD [address] [address] Gastroenterology 07/19/23 Radio Time Salesperson Relationship Specialty Start Date End Date Tanya Lozano, STREET ROLLER ENGINEER.[employer] [address] [place] [address] PCP - General Internal Medicine 08/18/21 Tomeka Gore MD [address] [place] [address] Nephrology 07/19/23 Andreas Casillas MD [address] [address] Gastroenterology 07/19/23 Radio Time Salesperson Relationship Specialty Start Date End Date Tanya Lozano, STREET ROLLER ENGINEER.[employer] [address] [place] [address] PCP - General Internal Medicine 08/18/21 Tomeka Gore MD [address] [place], [place] 6[address] [phone] Nephrology 07/19/23 Andreas Casillas MD [address] [facility] [address] [place] [address] Gastroenterology 07/19/23 Radio Time Salesperson Relationship Specialty Start Date End Date Tanya Lozano, STREET ROLLER ENGINEER.[employer] [address] [place] [address] PCP - General Internal Medicine 08/18/21 Tomeka Gore MD [address] [place] [address] Nephrology 07/19/23 Andreas Casillas MD [address] [address] Gastroenterology 07/19/23 Radio Time Salesperson Relationship Specialty Start Date End Date Tanya Lozano, STREET ROLLER ENGINEER.[employer] [address] [place] [address] [place] [address] PCP - General Internal Medicine 08/18/21 Tomeka Gore MD [address] [place] [address] Nephrology 07/19/23 Andreas Casillas MD [address] [place] [address] Gastroenterology 07/19/23 Radio Time Salesperson Relationship Specialty Start Date End Date Tanya Lozano, STREET ROLLER ENGINEER.[employer] [address] [place] [address] PCP - General Internal Medicine 08/18/21 Tomeka Gore MD [address] [place] [address] Nephrology 07/19/23 Andreas Casillas MD [address] [facility] [address] [place] [address] Gastroenterology 07/19/23 Radio Time Salesperson Relationship Specialty Start Date End Date Tanya Lozano, STREET ROLLER ENGINEER.[employer] [address] [place] [address] PCP - General Internal Medicine 08/18/21 Tomeka Gore MD [address] [place] [address] Nephrology 07/19/23 Andreas Casillas MD [address] [place] [address] Gastroenterology 07/19/23 Radio Time Salesperson Relationship Specialty Start Date End Date Tanya Lozano, STREET ROLLER ENGINEER.[employer] [address] [place] [address] [place] [address] PCP - General Internal Medicine 08/18/21 Tomeka Gore MD [address] [place] [address] Nephrology 07/19/23 Andreas Casillas MD [address] [facility] [address] [place] [address] Gastroenterology 07/19/23 Radio Time Salesperson Relationship Specialty Start Date End Date Tanya Lozano, STREET ROLLER ENGINEER.[employer] [address] [place] [address] PCP - General Internal Medicine 08/18/21 Tomeka Gore MD [address] [place], [place] 7865[address] Nephrology 07/19/23 Andreas Casillas MD [address] [address] Gastroenterology 07/19/23 Radio Time Salesperson Relationship Specialty Start Date End Date Tanya Lozano, STREET ROLLER ENGINEER.[employer] [address] [place] [address] PCP - General Internal Medicine 08/18/21 Tomeka Gore MD [address] [place], [place] 6230[address] [phone] Nephrology 07/19/23 Andreas Casillas MD [address] [address] Gastroenterology 07/19/23 Radio Time Salesperson Relationship Specialty Start Date End Date Tanya Lozano, STREET ROLLER ENGINEER.[employer] [address] [place] [address] PCP - General Internal Medicine 08/18/21 Tomeka Gore MD [address] [place] [address] Nephrology 07/19/23 Andreas Casillas MD [address] [address] Gastroenterology 07/19/23 Tanya Lozano, STREET ROLLER ENGINEER.[employer] [address] [place] [id number] Home Care Provider Internal Medicine 08/13/24 Radio Time Salesperson Relationship Specialty Start Date End Date Tanya Lozano, STREET ROLLER ENGINEER.COLLEGE ATHLETE [address] [place] [address] PCP - General Internal Medicine 08/18/21 Tomeka Gore MD [address] [place], [place] 760972 Nephrology 07/19/23 Andreas Casillas MD [address] [address] Gastroenterology 07/19/23 Tanya Lozano, STREET ROLLER ENGINEER.COLLEGE ATHLETE [address] [place] [address] Home Care Provider Internal Medicine 08/13/24 Radio Time Salesperson Relationship Specialty Start Date End Date Tanya Lozano, STREET ROLLER ENGINEER.COLLEGE ATHLETE [address] [place] [address] PCP - General Internal Medicine 08/18/21 Tomeka Gore MD [address] [place] [address] Nephrology 07/19/23 Andreas Casillas MD [address] [facility] [address] [place] [address] Gastroenterology 07/19/23 Tanya Lozano, STREET ROLLER ENGINEER.COLLEGE ATHLETE [address] [facility], [place] [id number] Home Care Provider Internal Medicine 08/13/24 Vera Albert, TASNEEM Primary Care Dredge Pipeman 08/30/24 Radio Time Salesperson Relationship Specialty Start Date End Date Tanya Lozano, STREET ROLLER ENGINEER.COLLEGE ATHLETE 225 [facility] [address] PCP - General Internal Medicine 08/18/21 Tomeka Gore MD [facility]2 [place] [address] Nephrology 07/19/23 [place] [address] [place] [address] [place] [address] Gastroenterology 07/19/23 Tanya Lozano, STREET ROLLER ENGINEER.COLLEGE ATHLETE [address] [facility] [place] [address] Home Care Provider Internal Medicine 08/13/24 Vera Albert, TASNEEM Primary Care Dredge Pipeman 08/30/24 Radio Time Salesperson Relationship Specialty Start Date End Date Tanya Lozano, STREET ROLLER ENGINEER.COLLEGE ATHLETE 225 [facility], [place] [id number] PCP - General Internal Medicine 08/18/21 Tomeka Gore MD [address] [place], [place] 167831 [address]- Nephrology 07/19/23 Andreas Casillas MD [address] [facility] 120 [place] [address] Gastroenterology 07/19/23 Tanya Lozano, STREET ROLLER ENGINEER.COLLEGE ATHLETE [address] [place] [address] [place] [address] Home Care Provider Internal Medicine 08/13/24 Vera Albert, TASNEEM Primary Care Dredge Pipeman 08/30/24 10/01/24 Radio Time Salesperson Relationship Specialty Start Date End Date Tanya Lozano, STREET ROLLER ENGINEER.COLLEGE ATHLETE [address] [place] [address]698 PCP - General Internal Medicine 08/18/21 Tomeka Gore MD [facility]2 [place], [place] 221382 Nephrology 07/19/23 Andreas Casillas MD [address] [address] Gastroenterology 07/19/23 Tanya Lozano, STREET ROLLER ENGINEER.COLLEGE ATHLETE [address] [place] [address] [place] [address] Home Care Provider Internal Medicine 08/13/24 Radio Time Salesperson Relationship Specialty Start Date End Date Tanya Lozano, STREET ROLLER ENGINEER.COLLEGE ATHLETE [address] [place] [address] [place] [address] PCP - General Internal Medicine 08/18/21 Tomeka Gore MD [address] [place], [place] 208582 Nephrology 07/19/23 Andreas Casillas MD [address] [facility] [address] [place] [address] Gastroenterology 07/19/23 Tanya Lozano, STREET ROLLER ENGINEER.COLLEGE ATHLETE 225 [facility], [place] [phone] Home Care Provider Internal Medicine 08/13/24 Radio Time Salesperson Relationship Specialty Start Date End Date Tanya Lozano, STREET ROLLER ENGINEER.COLLEGE ATHLETE [address] [facility], [place] [id number] PCP - General Internal Medicine 08/18/21 Tomeka Gore MD [address] [place], [place] 091062 Nephrology 07/19/23 Andreas Casillas MD [address] [facility] [address] [place] [address] Gastroenterology 07/19/23 Tanya Lozano, STREET ROLLER ENGINEER.COLLEGE ATHLETE [address] [facility] [place] [address] Home Care Provider Internal Medicine 08/13/24 Radio Time Salesperson Relationship Specialty Start Date End Date Tanya Lozano, STREET ROLLER ENGINEER.COLLEGE ATHLETE [address] [facility], [place] [id number] PCP - General Internal Medicine 08/18/21 Tomeka Gore MD [address] [place], [place] 694282 Nephrology 07/19/23 Andreas Casillas MD [address] [facility] 120 [place] [address] Gastroenterology 07/19/23 Tanya Lozano, STREET ROLLER ENGINEER.COLLEGE ATHLETE [address] [place] [address] Home Care Provider Internal Medicine 08/13/24 Radio Time Salesperson Relationship Specialty Start Date End Date Tanya Lozano, STREET ROLLER ENGINEER.COLLEGE ATHLETE [address] [place] [address] PCP - General Internal Medicine 08/18/21 Tomeka Gore MD [address] [place], [place] 586692 Nephrology 07/19/23 Andreas Casillas MD [address] [address] Gastroenterology 07/19/23 Tanya Lozano, STREET ROLLER ENGINEER.COLLEGE ATHLETE [address] [place] [address] Home Care Provider Internal Medicine 08/13/24 Radio Time Salesperson Relationship Specialty Start Date End Date Tanya Lozano, STREET ROLLER ENGINEER.COLLEGE ATHLETE [address] [place] [address] PCP - General Internal Medicine 08/18/21 Tomeka Gore MD [address] [place], [place] 851864 969- Nephrology 07/19/23 Andreas Casillas MD [address] [address] Gastroenterology 07/19/23 Tanya Lozano, STREET ROLLER ENGINEER.COLLEGE ATHLETE [address] [place] [address] [place] [address] Home Care Provider Internal Medicine 08/13/24 Radio Time Salesperson Relationship Specialty Start Date End Date Tanya Lozano, STREET ROLLER ENGINEER.COLLEGE ATHLETE [address] [place] [address] PCP - General Internal Medicine 08/18/21 Tomeka Gore MD [address] [place], [place] 089828 [phone] Nephrology 07/19/23 Andreas Casillas MD [address] [address] Gastroenterology 07/19/23 Tanya Lozano, STREET ROLLER ENGINEER.COLLEGE ATHLETE [address] [place] [address] [place] [address] Home Care Provider Internal Medicine 08/13/24 Radio Time Salesperson Relationship Specialty Start Date End Date Tanya Lozano, STREET ROLLER ENGINEER.COLLEGE ATHLETE [address] [place] [address] [place] [address] PCP - General Internal Medicine 08/18/21 Tomeka Gore MD [address] [place] [address] Nephrology 07/19/23 Andreas Casillas MD [address] [address] Gastroenterology 07/19/23 Tanya Lozano, STREET ROLLER ENGINEER.COLLEGE ATHLETE [address] [place] [address] Home Care Provider Internal Medicine 08/13/24 Radio Time Salesperson Relationship Specialty Start Date End Date Tanya Lozano, STREET ROLLER ENGINEER.COLLEGE ATHLETE [address] [place] [address] PCP - General Internal Medicine 08/18/21 Tomeka Gore MD [facility]2 [place] [address] Nephrology 07/19/23 Andreas Casillas MD [address] [facility] [address] [place] [address] Gastroenterology 07/19/23 Tanya Lozano, STREET ROLLER ENGINEER.COLLEGE ATHLETE [address] [place] [address] Home Care Provider Internal Medicine 08/13/24 Radio Time Salesperson Relationship Specialty Start Date End Date Tanya Lozano, STREET ROLLER ENGINEER.COLLEGE ATHLETE [address] [place] [address] PCP - General Internal Medicine 08/18/21 Tomeka Gore MD [address] [place] [address] Nephrology 07/19/23 Andreas Casillas MD [address] [facility] [address] [place] [address] Gastroenterology 07/19/23 Tanya Lozano, STREET ROLLER ENGINEER.COLLEGE ATHLETE 225 [facility] [place] [phone] Home Care Provider Internal Medicine 08/13/24 Radio Time Salesperson Relationship Specialty Start Date End Date Tanya Lozano, STREET ROLLER ENGINEER.COLLEGE ATHLETE 225 [facility] [place] [id number] PCP - General Internal Medicine 08/18/21 Tomeka Gore MD [address] [place], [place] 953142 Nephrology 07/19/23 Andreas Casillas MD [address] [facility] [address] [place] [address] Gastroenterology 07/19/23 Tanya Lozano, STREET ROLLER ENGINEER.COLLEGE ATHLETE 225 [place] [address] Home Care Provider Internal Medicine 08/13/24 Radio Time Salesperson Relationship Specialty Start Date End Date Tanya Lozano, STREET ROLLER ENGINEER.COLLEGE ATHLETE 225 [place] [address] PCP - General Internal Medicine 08/18/21 Tomeka Gore MD [address] [place] [address] Nephrology 07/19/23 Andreas Casillas MD [address] [facility] [address] [place] [address] Gastroenterology 07/19/23 Tanya Lozano, STREET ROLLER ENGINEER.COLLEGE ATHLETE 225 [facility], [place] [id number] Home Care Provider Internal Medicine 08/13/24 Radio Time Salesperson Relationship Specialty Start Date End Date Tanya Lozano, STREET ROLLER ENGINEER.COLLEGE ATHLETE [address] [facility], [place] [phone] PCP - General Internal Medicine 08/18/21 Tomeka Gore MD [address] [place], [place] 452592 Nephrology 07/19/23 Andreas Casillas MD [address] [facility] [address] [place] [address] Gastroenterology 07/19/23 Tanya Lozano, STREET ROLLER ENGINEER.COLLEGE ATHLETE [address] [place] [address] Home Care Provider Internal Medicine 08/13/24 Radio Time Salesperson Relationship Specialty Start Date End Date Tanya Lozano, STREET ROLLER ENGINEER.COLLEGE ATHLETE [address] [place] [address] PCP - General Internal Medicine 08/18/21 Tomeka Gore MD [address] [place] [address] Nephrology 07/19/23 Andreas Casillas MD [address] [facility] [address] [place] [address] Gastroenterology 07/19/23 Tanya Lozano, STREET ROLLER ENGINEER.COLLEGE ATHLETE [address] [place] [address] Home Care Provider Internal Medicine 08/13/24 Radio Time Salesperson Relationship Specialty Start Date End Date Tanya Lozano, STREET ROLLER ENGINEER.COLLEGE ATHLETE [address] [place] [address] [place] [address] PCP - General Internal Medicine 08/18/21 Tomeka Gore MD [address] [place], [place] 036562 Nephrology 07/19/23 Andreas Casillas MD [address] [address] Gastroenterology 07/19/23 Tanya Lozano, STREET ROLLER ENGINEER.COLLEGE ATHLETE [address] [place] [address] Home Care Provider Internal Medicine 08/13/24 Radio Time Salesperson Relationship Specialty Start Date End Date Tanya Lozano, STREET ROLLER ENGINEER.COLLEGE ATHLETE [address] [place] [address] PCP - General Internal Medicine 08/18/21 Tomeka Gore MD [address] [place], [place] 213272 Nephrology 07/19/23 Andreas Casillas MD [address] [address] Gastroenterology 07/19/23 Tanya Lozano, STREET ROLLER ENGINEER.COLLEGE ATHLETE [address] [place] [address] [id number] Home Care Provider Internal Medicine 08/13/24 Radio Time Salesperson Relationship Specialty Start Date End Date Tanya Lozano, STREET ROLLER ENGINEER.COLLEGE ATHLETE 225 [place] [address] PCP - General Internal Medicine 08/18/21 Tomeka Gore MD [address] [place] [address] Nephrology 07/19/23 Andreas Casillas MD [address] [place] [address] Gastroenterology 07/19/23 Tanya Lozano, STREET ROLLER ENGINEER.COLLEGE ATHLETE [address] [place] [address] Home Care Provider Internal Medicine 08/13/24 Radio Time Salesperson Relationship Specialty Start Date End Date Tanya Lozano, STREET ROLLER ENGINEER.COLLEGE ATHLETE [address] [place] [address] PCP - General Internal Medicine 08/18/21 Tomeka Gore MD [address] [place] [address] Nephrology 07/19/23 Andreas Casillas MD [address] [place] [address] Gastroenterology 07/19/23 Tanya Lozano, STREET ROLLER ENGINEER.COLLEGE ATHLETE [address] [place] [address] Home Care Provider Internal Medicine 08/13/24 Radio Time Salesperson Relationship Specialty Start Date End Date Tanya Lozano, STREET ROLLER ENGINEER.COLLEGE ATHLETE [address] [place], [place] [phone] PCP - General Internal Medicine 08/18/21 Tomeka Gore MD [address] [place] [address] Nephrology 07/19/23 Andreas Casillas MD [address] [address] Gastroenterology 07/19/23 Tanya Lozano, STREET ROLLER ENGINEER.COLLEGE ATHLETE 225 [place] [address] Home Care Provider Internal Medicine 08/13/24 FOR RECORDS PERTAINING TO PATIENTS WHO ARE OR HAVE BEEN ENROLLED IN A CHEMICAL DEPENDENCY/SUBSTANCEABUSE PROGRAM, SOME INFORMATION MAY BE OMITTED. This clinical summary was aggregated from multiple sources. Caution should be exercised in using it in the provision of clinical care. This summary normalizes information from multiple sources, and as a consequence, information in this document may materially change the coding, format and clinical context of patient data. In addition, data may be omitted in some cases. CLINICAL DECISIONS SHOULD BE BASED ON THE PRIMARY CLINICAL RECORDS. [employer] provides no warranty or guarantee of the accuracy or completeness of information in this document.
--- OUTSIDE RECORDS SUMMARY | 2025-07-01 04:30 | XMS RPT_ITS | CCD ---
Author Organization [facility] CliniSymt Care Team Providers Care Tierce Filler Name Role Phone Ricci Robbins Unavailable Unavailable Ricci Robbins Primary Care Provider Ricci Robbins Primary Care Provider [phone] Ricci Robbins Primary Care Provider [phone] Ricci Robbins Primary Care Provider Blake WIRE BENDER.Tanya BERGERON Primary Care Provider Blake WIRE BENDER.Tanya BERGERON Primary Care Provider Blake WIRE BENDER.Tanya BERGERON Primary Care Provider Sofía ZAMAN, Tomeka A Unavailable Andreas Casillas MD Unavailable Sofía ZAMAN, Tomeka A Unavailable Blake WIRE BENDER.Tanya BERGERON Primary Care Provider TANYA LOZANO Primary Care Unavailable DIDI ZAMAN, CHRISTINA Attending Unavail able DIDI ZAMAN, CHRISTINA Attending Unavail able TANYA LOZANO Primary Care Unavailable Blake WIRE BENDER.Tanya BERGERON Unavailable [phone] Jose RN, Vera Unavailable [phone] Jose BOATENG, Vera Unavailable [phone] Sofía ZAMAN, Tomeka A Unavailable [phone] Nicole Mei Attending Unavailable Ricci Robbins Primary Care Unavailable Nicole Mei Attending Unavailable Ricci Robbins Primary Care Unavailable Jorge Meiet Attending Unavailable Ricci Robbins Primary Care Unavailable Nely KEENE, Nicole Referring Unavailable Mckay OLS, Nicole Referring Unavailable Nely KEENE, Nicole Attending Unavailable Ricci Robbins Primary Care Unavailable Vinny ZAMAN, Andreas Soriano Unavailable BLAKE, TANYA M Referring Unavailable BLAKE, [...] (antibiotic) (2 sources) [facility] ([facility]iotic) (2 sources) Sulfonamides (Antibiotic) Drug Allergy 5 [facility] (19 sources) Penicillins; Translations: [PENICILLINS] Propensity to adverse reactions to drug 5 Unknown [place] (9 sources) Sulfonamides (Antibiotic) Propensity to adverse reactions to drug 5 [place] (11 sources) Tetracyclines & Related Propensity to adverse reactions to drug 5 [place] (14 sources) Penicillins Propensity to adverse reactions to drug 1 Unknown [facility] (20 sources) Sulfonamides (Antibiotic); Translations: [SULFA (SULFONAMIDE ANTIBIOTICS)] Propensity to adverse reactions to drug 1 Unknown [facility] (20 sources) Tetracycline (class of antibiotic); Translations: [TETRACYCLINES] Propensity to adverse reactions to drug 1 Unknown [facility] (20 sources) Penicillins Propensity to adverse reactions to drug 1 Unknown [facility] (20 sources) Tetracycline (class of antibiotic) Propensity to adverse reactions to drug 1 Unknown [facility] (20 sources) amLODIPine; Translations: [AMLODIPINE] Drug Allergy 4 Other: See Comments [facility] (18 sources) Penicillins Propensity to adverse reactions to drug 1 Unknown [facility] (1 source) Penicillins Drug allergy (disorder) 0 [facility] (1 source) Sulfonamides (Antibiotic) Drug allergy (disorder) 0 [facility] (1 source) Tetracycline Drug Allergy 0 [facility] (8 sources) Tetracyclines Propensity to adverse reactions to drug 1 Unknown [facility] (1 source) Chlorthalidone; Translations: [CHLORTHALIDONE] Drug Allergy 5 [facility] (1 source) hydroCHLOROthiazi de; Translations: [HYDROCHLOROTHIAZ KVNG] Drug Allergy 5 [facility] Medications Current Medications Medication Drug [...] kadeem th once daily. polyethylene glycol 3350 02944 mg powder for oral solution (20 sources) [...] source) Long-term current use of anticoagulant; Translations: [shelter (current) use of anticoagulants] Episodic Other aftercare (1 source) Other halfway (current) drug therapy; Translations: [Other halfway (current) drug therapy] Onset: 01-23-2025 Episodic Other aftercare (2 sources) superintendent container terminal (current) use of anticoagulants; Translations: [superintendent container terminal (current) use of anticoagulants] Onset: 01-23-2025 Episodic [...] Test Name Value Interpretation Reference Range Facility [facility] 06-27-2025 CNCO Letter Text Normal [facility] CNDSon 06-27-2025 CNDS HNO ID: [id number] Author: DONNA CASILLAS MD Service: Hospital Medicine [...] Consulting: Tomeka Gore MD Primary Service: 3, [facility] MY CONDITION AT DISCHARGE: Stable REASON I [...] No pending results Discharge Disposition Discharge Disposition: Fdc Facility - Less than 30 Days Activity When You Leave the Hospital Resume pre-hospital activity Diet Instructions Resume your pre-hospital diet CODE STATUS: DNR-CCA, DNI Form signed. OPERATIONS/PROCEDURE DURING THIS HOSPITALIZATION: * No surgery found * CONSULTS DURING HOSPITALIZATION: Treatment Team: Attending Provider: Donna Casillas MD Consulting: Tomeka Gore MD Primary Service: , [facility] PATIENT CONDITION AT DISCHARGE: Stable DISCHARGE DISPOSITION: Fdc Facility Discharge Physical Exam: VITAL SIGNS: Blood [...] Department Center (more content not included)... Normal [facility] CONSULT PROGon 06-27-2025 CONSULT PROG HNO ID: [id number] Author: TOMEKA GORE MD Service: Nephrology Author [...] OK with me for DC planning Normal [facility] Comprehensive metabolic 2000 panelon 06-27-2025 Albumin [Mass/Vol] 4.0 g/dL Normal 3.9-4.9 [facility] Comment on above: Order Comment: Speci men Type: BLOOD SPECIMENOrdering Facility: [facility] Address: [address] [place] [address] Performed By: #### 2 4323-8, 97588-4 ####[facility] [id number] [place] [address] [facility] ALP [Catalytic activity/Vol] 67 U/L Normal 34-123 [facility] Comment on above: Order Comment: Speci men Type: BLOOD SPECIMENOrdering Facility: [facility] Address: [address] [place] [address] Performed By: #### 2 432-8, ####[facility] [id number] [address] ALT [Catalytic activity/Vol] 11 U/L Normal 7-38 [facility] Comment on above: Order Comment: Speci men Type: BLOOD SPECIMENOrdering Facility: [facility] Address: [address] [place] [id number] Performed By: #### 2 8, ####[facility]ATORYCLIA [id number] [address] [place] Anion gap [Moles/Vol] 11 mmol/L Normal 8-15 [facility] Comment on above: Order Comment: Speci men Type: BLOOD SPECIMENOrdering Facility: [facility] Address: [address] [place] [address] Performed By: #### 2 4323-04, ####[facility]ATORYCLIA [id number] [address] STATES [facility] AST [Catalytic activity/Vol] 18 U/L Normal 13-35 [facility] Comment on above: Order Comment: Speci men Type: BLOOD SPECIMENOrdering Facility: [facility] Address: [address] [place] [address] Performed By: #### 2 4328, ####[facility]ATORYCLIA [id number] [address] [place] Bilirubin [Mass/Vol] 0.6 mg/dL Normal 0.2-1.3 [facility] Comment on above: Order Comment: Speci men Type: BLOOD SPECIMENOrdering Facility: [facility] Address: [address] [place] [address] Performed By: #### 2 432-8, ####[facility]ATORYCLIA [id number] [place] [address] [place] Calcium [Mass/Vol] 9.2 mg/dL Normal 8.5-10.2 [facility] Comment on above: Order Comment: Speci men Type: BLOOD SPECIMENOrdering Facility: [facility] Address: [address] [place] [address] Performed By: #### 2 4323-8, ####[facility]ORATORYCLIA [id number] [place] [address] [place] Chloride [Moles/Vol] 92 mmol/L Low 98-107 [facility] Comment on above: Order Comment: Speci men Type: BLOOD SPECIMENOrdering Facility: [facility] Address: [address] [place] [address] Performed By: #### 2 4323-8, ####[facility]ORATORYCLIA [id number] [place] [address] [place] CO2 [Moles/Vol] 26 mmol/L Normal 22-30 [facility] Comment on above: Order Comment: Speci men Type: BLOOD SPECIMENOrdering Facility: [facility] Address: [address] [place] [address] Performed By: #### 2 4323-8, ####[facility]ATORYCLIA [id number] [place] [address] [place] Creatinine [Mass/Vol] 0.81 mg/dL Normal 0.58-0.96 [facility] Comment on above: Order Comment: Speci men Type: BLOOD SPECIMENOrdering Facility: [facility] Address: [address] [place] [id number] Performed By: #### 2 4323-8, ####[facility]ORATORYCLIA [id number] [place] [address] [place] eGFRcr SerPlBld CKD-EPI 2020 70 mL/min/1.73m??? Normal >=60 [facility] Comment on above: Order Comment: Speci men Type: BLOOD SPECIMENOrdering Facility: [facility] Address: [address] [place] [address] Result Comment: Dolores mated Glomerular Filtration Rate [...] actual GFR. Performed By: #### 2 432-8, ####[facility]ORYCLIA [id number] [place] [address] [place] Glucose [Mass/Vol] 100 mg/dL High 74-99 [facility] Comment on above: Order Comment: Marti hankins Type: BLOOD SPECIMENOrdering Facility: [facility] Address: [address] [place], [place] [address] Result Comment: The [place] Diabetes Association (ADA) provides guidance for cutoff [...] Standards of Medical Care in Diabetes 2016, [place] Diabetes Association. Diabetes Care. 2016.39(Suppl 1). Performed By: #### 2 43212-01, ####[facility]ATORYCLIA [id number] [place] [address] [place] Potassium [Moles/Vol] 4.0 mmol/L Normal 3.7-5.1 [facility] Comment on above: Order Comment: Marti hankins Type: BLOOD SPECIMENOrdering Facility: [facility] Address: [address] [place] [address] Performed By: #### 2 43212-01, ####[facility]ATORYCLIA [id number] [place] [address] [place] Protein [Mass/Vol] 6.8 g/dL Normal 6.3-8.0 [facility] Comment on above: Order Comment: Speci men Type: BLOOD SPECIMENOrdering Facility: [facility] Address: [address] [place] [address] Performed By: #### 2 4323-8, ####[facility]ORATORYCLIA [id number] [place] [address] [place] Sodium [Moles/Vol] 129 mmol/L Low 136-144 [facility] Comment on above: Order Comment: Speci men Type: BLOOD SPECIMENOrdering Facility: [facility] Address: [address] [place] [address] Performed By: #### 2 4323-8, ####[facility]ORATORYCLIA [id number] [place] [address] [place] Urea nitrogen [Mass/Vol] 16 mg/dL Normal 7-21 [facility] Comment on above: Order Comment: Speci men Type: BLOOD SPECIMENOrdering Facility: [facility] Address: [address] [place] [address] Performed By: #### 2 4323-8, ####[facility]ORATORYCLIA [id number] [place] [address] [place] Magnesium SerPl-mCncon 06-27 Magnesium [Mass/Vol] 1.9 mg/dL Normal 1.7-2.3 [facility] Comment on above: Order Comment: Speci men Type: BLOOD SPECIMENOrdering Facility: [facility] Address: [address] [place] [address] Performed By: #### 2 4323-8, ####[facility]ORATORYCLIA [id number] [place] [id number] [place] PT panel Coag (PPP)on 2024 INR Coag (PPP) [Relative time] 1.9 {INR} High 0.9-1.3 [facility] Comment on above: Order Comment: Speci men Type: BLOOD SPECIMEN [facility] Address: [address] [place] [address] Result Comment: Mirna min K Antagonist (VKA) Therapeutic Range: INR 2 to 3 (Target INR of 2.5) Note: For patients treated with VKA drugs, such as warfarin, the [place] [employer] 2012 Guideline recommends [...] Chest 2012, 141:7S-47S Jayce RA et al. [facility] 2017, 70: 252-289 Performed By: #### 5 8410-2 #### [facility] CLIA [id number] [address] [place] [address] [place] PT Coag (PPP) [Time] 19.7 s High 9.7-13.0 [facility] Comment on above: Order Comment: Speci men Type: BLOOD SPECIMEN [facility] Address: [address] [place] [address] Performed By: #### 5 8410-2 #### [facility] CLIA [id number] [address] [place] CONSULT PROGon 06-26-2025 CONSULT PROG HNO ID: [id number] Author: TOMEKA GORE MD Service: Nephrology Author Type: Physician Type: Consult Progress Note Filed: 06/26/2025 15:21 Note Text: Patient seen and examined. Still quite tired. Awaiting pre-cert for [facility]. Blood pressure 127/60, pulse 71, temperature 36.6 [...] OK with me for DC planning Normal [facility] Comprehensive metabolic 2000 panelon 06-26-2025 Albumin [Mass/Vol] 4.0 g/dL Normal 3.9-4.9 [facility] Comment on above: Order Comment: Speci men Type: BLOOD SPECIMEN [facility] Address: [address] [place] [address] Performed By: #### 5 8410-2 #### [facility] CLIA [id number] [address] STATES OF [facility] ALP [Catalytic activity/Vol] 68 U/L Normal 34-123 [facility] Comment on above: Order Comment: Shanikai cr Type: BLOOD SPECIMEN [facility] Address: [address] [place] [address] Performed By: #### 5 8410-2 #### [facility] CLIA [id number] [address] ALT [Catalytic activity/Vol] 10 U/L Normal 7-38 [facility] Comment on above: Order Comment: Speci men Type: BLOOD SPECIMEN [facility] Address: [address] [place] [address] Performed By: #### 5 8410-2 #### [facility] CLIA [id number] [address] Anion gap [Moles/Vol] 13 mmol/L Normal 8-15 [facility] Comment on above: Order Comment: Shanikai men Type: BLOOD SPECIMEN [facility] Address: [address] [place] [address] Performed By: #### 5 8410-2 #### [facility] CLIA [id number] [address] [place] [address] [place] AST [Catalytic activity/Vol] 14 U/L Normal 13-35 [facility] Comment on above: Order Comment: Speci men Type: BLOOD SPECIMEN [facility] Address: [address] [place] [address] Performed By: #### 5 8410-2 #### [facility] CLIA [id number] [address] [place] [address] [place] Bilirubin [Mass/Vol] 0.7 mg/dL Normal 0.2-1.3 [facility] Comment on above: Order Comment: Speci men Type: BLOOD SPECIMEN [facility] Address: [address] [place] [address] Performed By: #### 5 8410-2 #### [facility] CLIA [id number] [address] [place] [address] [place] Calcium [Mass/Vol] 9.4 mg/dL Normal 8.5-10.2 [facility] Comment on above: Order Comment: Speci men Type: BLOOD SPECIMEN [facility] Address: [address] [place] [address] Performed By: #### 5 8410-2 #### [facility] CLIA [id number] [address] [place] [address] [place] Chloride [Moles/Vol] 93 mmol/L Low 98-107 [facility] Comment on above: Order Comment: Speci men Type: BLOOD SPECIMEN [facility] Address: [address] [place] [address] Performed By: #### 5 8410-2 #### [facility] CLIA [id number] [address] [place] [address] [place] CO2 [Moles/Vol] 25 mmol/L Normal 22-30 [facility] Comment on above: Order Comment: Speci men Type: BLOOD SPECIMEN [facility] Address: [address] [place] [address] Performed By: #### 5 8410-2 #### [facility] CLIA [id number] [address] STATES OF [facility] Creatinine [Mass/Vol] 0.80 mg/dL Normal 0.58-0.96 [facility] Comment on above: Order Comment: Marti hankins Type: BLOOD SPECIMEN [facility] Address: [address] [place] [address] Performed By: #### 5 8410-2 #### [facility] CLIA [id number] [address] OF [facility] eGFRcr SerPlBld CKD-EPI 2020 71 mL/min/1.73m??? Normal >=60 [facility] Comment on above: Order Comment: Marti hankins Type: BLOOD SPECIMEN [facility] Address: [address] [place] [address] Result Comment: Dolores mated Glomerular Filtration Rate [...] GFR. Performed By: #### 5 8410-2 #### [facility] CLIA [id number] [address] Glucose [Mass/Vol] 100 mg/dL High 74-99 [facility] Comment on above: Order Comment: Marti hankins Type: BLOOD SPECIMEN [facility] Address: [address] [place] [address] Result Comment: The [place] Diabetes Association (ADA) provides guidance for cutoff [...] Standards of Medical Care in Diabetes 2016, [place] Diabetes Association. Diabetes Care. 2016.39(Suppl 1). Performed By: #### 5 8410-2 #### [facility] CLIA [id number] [address] [place] [address] [place] Potassium [Moles/Vol] 4.7 mmol/L Normal 3.7-5.1 [facility] Comment on above: Order Comment: Speci men Type: BLOOD SPECIMEN [facility] Address: [address] [place] [address] Performed By: #### 5 8410-2 #### [facility] CLIA [id number] [address] [place] [address] [place] Protein [Mass/Vol] 6.9 g/dL Normal 6.3-8.0 [facility] Comment on above: Order Comment: Speci men Type: BLOOD SPECIMEN [facility] Address: [address] [place] [address] Performed By: #### 5 8410-2 #### [facility] CLIA [id number] [address] [place] [address] [place] Sodium [Moles/Vol] 131 mmol/L Low 136-144 [facility] Comment on above: Order Comment: Speci men Type: BLOOD SPECIMEN [facility] Address: [address] [place] [address] Performed By: #### 5 8410-2 #### [facility] CLIA [id number] [address] [place] [address] [place] Urea nitrogen [Mass/Vol] 13 mg/dL Normal 7-21 [facility] Comment on above: Order Comment: Speci men Type: BLOOD SPECIMEN [facility] Address: [address] [place] [address] Performed By: #### 5 8410-2 #### [facility] CLIA [id number] [address] [place] [address] [place] Magnesium SerPl-mCncon 06-26 Magnesium [Mass/Vol] 1.9 mg/dL Normal 1.7-2.3 [facility] Comment on above: Order Comment: Speci men Type: BLOOD SPECIMEN [facility] Address: [address] [place] [address] Performed By: #### 5 8410-2 #### [facility] CLIA [id number] [address] PT panel Coag (PPP)on 2024 INR Coag (PPP) [Relative time] 1.7 {INR} High 0.9-1.3 [facility] Comment on above: Order Comment: Marti hankins Type: BLOOD SPECIMEN [facility] Address: [address] [place] [address] Result Comment: Mirna min K Antagonist (VKA) Therapeutic Range: INR 2 to 3 (Target INR of 2.5) Note: For patients treated with VKA drugs, such as warfarin, the [place] [employer] 2012 Guideline recommends [...] Chest 2012, 141:7S-47S Jayce RA, et al. [facility] 2017, 70: 252-289 Performed By: #### 5 8410-2 #### [facility] CLIA [id number] [address] STATES [facility] PT Coag (PPP) [Time] 18.1 s High 9.7-13.0 [facility] Comment on above: Order Comment: Marti hankins Type: BLOOD SPECIMEN [facility] Address: [address] [place] [address] Performed By: #### 5 8410-2 #### [facility] CLIA [id number] [address] [place] THERAPY NTon 06-26-2025 THERAPY NT HNO ID: [id number] Author: MECHELLE JONAS OT/Anna Service: Occupational Therapy Author Type: Occupational Therapist Type: Therapy (PT/OT/Speech/Resp) Filed: 06/26/2025 14:48 Note Text: Summary: OT Treatment Occupational Therapy Treatment Summary SERVICE DATE: 06/26/2025 SERVICE TIME: 1408 to 1424 ROOM: [id number] OT 6 Clicks Score: 19 DISCHARGE RECOMMENDATIONS [...] completes Equipment Owned: Cane, Grab Bars- Shower, University Administrator, Long Handled Sponge, Hand Held Shower PRIOR FUNCTIONAL LEVEL Within Functional Limits Patient reports independence with ADLs/IADLs 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 + driving, self medical [...] of daily living (ADL) TREATMENT INTERVENTIONS Self Half-Way Management (07307) Timed Code Treatment (minutes): 12 Skilled Treatment Time (minutes): 12 TRAINING AND EDUCATION PROVIDED Benefits of In-Hospital Mobility, Discharge Planning, Expected Functional Level, Positioning, Role of Occupational Therapy, Activity Adaptation/Compensatory Strategies, Sleep Hygiene, Treatment Protocol, Sitting Balance to Improve [place] with ADLs/Self-Care THERAPEUTIC SKILLS USED Activity Dosing, [...] 3 T (more content not included)... Normal [facility] CONSULT PROGon 06-25-2025 CONSULT PROG HNO ID: [id number] Author: TOMEKA GORE MD Service: Nephrology Author [...] limited urea if Na drops again Normal [facility] Comprehensive metabolic 2000 panelon 06-25-2025 Albumin [Mass/Vol] 3.9 g/dL Normal 3.9-4.9 [facility] Comment on above: Order Comment: Marti hankins Type: BLOOD SPECIMEN [facility] Address: [address] [place], [place] [address] [address] Performed By: #### 5 8410-2 #### [facility] CLIA [id number] [address] [place] [address] [place] ALP [Catalytic activity/Vol] 65 U/L Normal 34-123 [facility] Comment on above: Order Comment: Speci men Type: BLOOD SPECIMEN [facility] Address: [address] [place] [address] Performed By: #### 5 8410-2 #### [facility] CLIA [id number] [address] [place] ALT [Catalytic activity/Vol] 9 U/L Normal 7-38 [facility] Comment on above: Order Comment: Speci men Type: BLOOD SPECIMEN [facility] Address: [address] [place] [address] Performed By: #### 5 8410-2 #### [facility] CLIA [id number] [address] [place] [address] [place] Anion gap [Moles/Vol] 14 mmol/L Normal 8-15 [facility] Comment on above: Order Comment: Speci men Type: BLOOD SPECIMEN [facility] Address: [address] [place] [address] Performed By: #### 5 8410-2 #### [facility] CLIA [id number] [address] [place] AST [Catalytic activity/Vol] 19 U/L Normal 13-35 [facility] Comment on above: Order Comment: Speci men Type: BLOOD SPECIMEN [facility] Address: [address] [place] [address] Performed By: #### 5 8410-2 #### [facility] CLIA [id number] [address] [place] Bilirubin [Mass/Vol] 0.9 mg/dL Normal 0.2-1.3 [facility] Comment on above: Order Comment: Speci men Type: BLOOD SPECIMEN [facility] Address: [address] [place] [address] Performed By: #### 5 8410-2 #### [facility] CLIA [id number] [address] [place] Calcium [Mass/Vol] 9.3 mg/dL Normal 8.5-10.2 [facility] Comment on above: Order Comment: Speci men Type: BLOOD SPECIMEN [facility] Address: [address] [place] [address] Performed By: #### 5 8410-2 #### [facility] CLIA [id number] [address] [place] [address] [place] Chloride [Moles/Vol] 92 mmol/L Low 98-107 [facility] Comment on above: Order Comment: Speci men Type: BLOOD SPECIMEN [facility] Address: [address] [place] [address] Performed By: #### 5 8410-2 #### [facility] CLIA [id number] [address] [place] [address] [place] CO2 [Moles/Vol] 21 mmol/L Low 22-30 [facility] Comment on above: Order Comment: Speci men Type: BLOOD SPECIMEN [facility]ing Facility: [facility] Address: [address] [place] [address] Performed By: #### 5 8410-2 #### [facility] CLIA [id number] [address] STATES OF [facility] Creatinine [Mass/Vol] 0.79 mg/dL Normal 0.58-0.96 [facility] Comment on above: Order Comment: Speci men Type: BLOOD SPECIMEN [facility]ing Facility: [facility] Address: [address] [place] [address] Performed By: #### 5 8410-2 #### [facility] CLIA [id number] [address] [place] eGFRcr SerPlBld CKD-EPI 2020 72 mL/min/1.73m??? Normal >=60 [facility] Comment on above: Order Comment: Speci men Type: BLOOD SPECIMEN [facility] Facility: [facility] Address: [address] [place] [address] Result Comment: Dolores mated Glomerular Filtration Rate [...] #### 5 8410-2 #### [facility] CLIA [id number] [address] [place] [address] [place] Glucose [Mass/Vol] 92 mg/dL Normal 74-99 [facility] Comment on above: Order Comment: Marti hankins Type: BLOOD SPECIMEN [facility]ing Facility: [facility] Address: [address] [place] [address] Result Comment: The [place] Diabetes Association (ADA) provides guidance for cutoff [...] Standards of Medical Care in Diabetes 2016, [place] [employer]. Diabetes Care. 2016.39(Suppl 1). Performed By: #### 5 8410-2 #### [facility] CLIA [id number] [address] [place] [address] [place] Potassium [Moles/Vol] 4.0 mmol/L Normal 3.7-5.1 [facility] Comment on above: Order Comment: Marti hankins Type: BLOOD SPECIMEN [facility] Facility: [facility] Address: [address] [place] [address] Performed By: #### 5 8410-2 #### [facility] CLIA [id number] [address] [place] [address] [place] Protein [Mass/Vol] 6.7 g/dL Normal 6.3-8.0 [facility] Comment on above: Order Comment: Marti hankins Type: BLOOD SPECIMEN [facility] Facility: [facility] Address: [address] [place] [address] Performed By: #### 5 8410-2 #### [facility] CLIA [id number] [address] [place] [address] [place] Sodium [Moles/Vol] 127 mmol/L Low 136-144 [facility] Comment on above: Order Comment: Marti cr Type: BLOOD SPECIMEN [facility]ing Facility: [facility] Address: [address] [place] [address] Performed By: #### 5 8410-2 #### [facility] CLIA [id number] [address] STATES OF [facility] Urea nitrogen [Mass/Vol] 13 mg/dL Normal 7-21 [facility] Comment on above: Order Comment: Marti men Type: BLOOD SPECIMEN [facility] Facility: [facility] Address: [address] [place] [address] Performed By: #### 5 8410-2 #### [facility] CLIA [id number] [address] [place] Magnesium SerPl-mCncon 06-25 Magnesium [Mass/Vol] 1.7 mg/dL Normal 1.7-2.3 [facility] Comment on above: Order Comment: Shanikakerrie hankins Type: BLOOD SPECIMEN [facility]ing Facility: [facility] Address: [address] [place] [address] Performed By: #### 5 8410-2 #### [facility] CLIA [id number] [address] STATES OF [facility] THERAPY NTon 06-25-2025 THERAPY NT HNO ID: [id number] Author: LEONARDO MCCARTNEY PTA Service: Physical Therapy Author Type: Sales Project Coordinator Type: Therapy (PT/OT/Speech/Resp) Filed: 06/25/2025 14:03 Note Text: Attestation signed by Leonardo Whintey PT at 06/26/2025 5:21 PM I reviewed and agree with the documentation corresponding to this therapy visit. SIGNATURE: LEONARDO WHITNEY PT DATE: June 26, 2025 TIME: 5:21 PM PHYSICAL THERAPY MISSED VISIT SERVICE DATE: 06/25/2025 SERVICE TIME: 1401 ROOM: [place] [address] Patient not seen due to Declined to Participate. Patient sleeping upon arrival. Reports not feeling well today and wanting to defer PT treatment. Gentle encouragement provided however, patient continued to decline. Will re-attempt patient as schedule permits and with patient appropriateness. SIGNATURE: Leonardo Mccartney PTA PATIENT NAME: Helen Lieberman DATE: June 25, 2025 TIME: 2:02 PM [facility] Urate SerPl-mCncon Urate [Mass/Vol] 4.3 mg/dL Normal 2.5-6.6 [facility] Comment on above: Order Comment: Marti hankins Type: BLOOD SPECIMEN [facility] Facility: [facility] Address: [address] [place] [address] Performed By: #### 5 8410-2 #### [facility] CLIA [id number] [address] [place] [address] [place] Basic metabolic 2000 panelon 06-24-2025 Anion gap [Moles/Vol] 12 mmol/L Normal 8-15 [facility] Comment on above: Order Comment: Marti hankins Type: BLOOD SPECIMEN [facility]ing Facility: [facility] Address: [address] [place] [address] Performed By: #### 5 8410-2 #### [facility] CLIA [id number] [address] [place] [address] [place] Calcium [Mass/Vol] 8.9 mg/dL Normal 8.5-10.2 [facility] Comment on above: Order Comment: Marti hankins Type: BLOOD SPECIMEN [facility]ing Facility: [facility] Address: [address] [place] [address] Performed By: #### 5 8410-2 #### [facility] CLIA [id number] [address] [place] [address] [place] Chloride [Moles/Vol] 91 mmol/L Low 98-107 [facility] Comment on above: Order Comment: Marti hankins Type: BLOOD SPECIMEN [facility]ing Facility: [facility] Address: [address] [place] [address] Performed By: #### 5 8410-2 #### [facility] CLIA [id number] [address] [place] CO2 [Moles/Vol] 23 mmol/L Normal 22-30 [facility] Comment on above: Order Comment: Marti hankins Type: BLOOD SPECIMEN [facility] Facility: [facility] Address: [address] [place] [address] Performed By: #### 5 8410-2 #### [facility] CLIA [id number] [address] STATES OF [facility] Creatinine [Mass/Vol] 1.11 mg/dL High 0.58-0.96 [facility] Comment on above: Order Comment: Marti hankins Type: BLOOD SPECIMEN Ordering Facility: [facility] Address: [address] [place] [address] Performed By: #### 5 8410-2 #### [facility] CLIA [id number] [address] eGFRcr SerPlBld CKD-EPI 2020 48 mL/min/1.73m??? Low >=60 [facility] Comment on above: Order Comment: Marti hankins Type: BLOOD SPECIMEN [facility]ing Facility: [facility] Address: [address] [place] [address] Result Comment: Dolores mated Glomerular Filtration Rate [...] GFR. Performed By: #### 5 8410-2 #### [facility] CLIA [id number] [address] [place] Glucose [Mass/Vol] 105 mg/dL High 74-99 [facility] Comment on above: Order Comment: Marti hankins Type: BLOOD SPECIMEN [facility]ing Facility: [facility] Address: [address] [place] [address] Result Comment: The [place] Diabetes Association (ADA) provides guidance for cutoff [...] Standards of Medical Care in Diabetes 2016, [place] Diabetes Association. Diabetes Care. 2016.39(Suppl 1). Performed By: #### 5 8410-2 #### [facility] CLIA [id number] [address] [place] [address] [place] Potassium [Moles/Vol] 4.1 mmol/L Normal 3.7-5.1 [facility] Comment on above: Order Comment: Marti hankins Type: BLOOD SPECIMEN [facility] Facility: [facility] Address: [address] [place] [address] Performed By: #### 5 8410-2 #### [facility] CLIA [id number] [address] [place] [address] [place] Sodium [Moles/Vol] 126 mmol/L Low 136-144 [facility] Comment on above: Order Comment: Marti hankins Type: BLOOD SPECIMEN Ordering Facility: [facility] Address: [address] [place] [address] Performed By: #### 5 8410-2 #### [facility] CLIA [id number] [address] [place] [address] [place] Urea nitrogen [Mass/Vol] 17 mg/dL Normal 7-21 [facility] Comment on above: Order Comment: Marti hankins Type: BLOOD SPECIMEN Ordering Facility: [facility] Address: [address] [place] [address] Performed By: #### 5 8410-2 #### [facility] CLIA [id number] [address] [place] [address] [place] Anion gap [Moles/Vol] 14 mmol/L Normal 8-15 [facility] Comment on above: Order Comment: Speci men Type: BLOOD SPECIMENOrdering Facility: [facility] Address: [address] [place] [address] Performed By: #### 2 4321-2 ####[facility] [id number] [place] [address] [place] Calcium [Mass/Vol] 9.2 mg/dL Normal 8.5-10.2 [facility] Comment on above: Order Comment: Speci men Type: BLOOD SPECIMENOrdering Facility: [facility] Address: [address] [place] [address] Performed By: #### 2 4321-2 ####[facility] [id number] [place] [address] [place] Chloride [Moles/Vol] 90 mmol/L Low 98-107 [facility] Comment on above: Order Comment: Speci men Type: BLOOD SPECIMENOrdering Facility: [facility] Address: [address] [place] [address] Performed By: #### 2 4321-2 ####[facility] [id number] [place] [address] [place] CO2 [Moles/Vol] 24 mmol/L Normal 22-30 [facility] Comment on above: Order Comment: Speci men Type: BLOOD SPECIMENOrdering Facility: [facility] Address: [address] [place] [address] Performed By: #### 2 4321-2 ####[facility] [id number] [place] [address] [place] Creatinine [Mass/Vol] 1.09 mg/dL High 0.58-0.96 [facility] Comment on above: Order Comment: Speci men Type: BLOOD SPECIMENOrdering Facility: [facility] Address: [address] [place] [address] Performed By: #### 2 4321-2 ####[facility] [id number] [place] [address] [place] eGFRcr SerPlBld CKD-EPI 2020 49 mL/min/1.73m??? Low >=60 [facility] Comment on above: Order Comment: Marti [facility] Type: BLOOD SPECIMENOrdering Facility: [facility] Address: [address] [place] [address] Result Comment: Dolores mated Glomerular Filtration Rate [...] Performed By: #### 2 4321-2 ####[facility] [id number] [place] [address] [place] Glucose [Mass/Vol] 110 mg/dL High 74-99 [facility] Comment on above: Order Comment: [facility] Type: BLOOD SPECIMENOrdering Facility: [facility] Address: [address] [place] [address] Result Comment: The [place] Diabetes Association (ADA) provides guidance for cutoff [...] Standards of Medical Care in Diabetes 2016, [place] Diabetes Association. Diabetes Care. 2016.39(Suppl 1). Performed By: #### 2 4321-2 ####[facility] [id number] [place] [id number] [place] Potassium [Moles/Vol] 4.3 mmol/L Normal 3.7-5.1 [facility] Comment on above: Order Comment: Speci men Type: BLOOD SPECIMENOrdering Facility: [facility] Address: [address] [place] [address] Performed By: #### 2 4321-2 ####[facility] [id number] [place] [address] [place] Sodium [Moles/Vol] 128 mmol/L Low 136-144 [facility] Comment on above: Order Comment: Speci men Type: BLOOD SPECIMENOrdering Facility: [facility] Address: [address] [place] [address] Performed By: #### 2 4321-2 ####[facility] [id number] [place] [address] [place] Urea nitrogen [Mass/Vol] 15 mg/dL Normal 7-21 [facility] Comment on above: Order Comment: Speci men Type: BLOOD SPECIMENOrdering Facility: [facility] Address: [address] [place] [address] Performed By: #### 2 4321-2 ####[facility] [id number] [place] [address] [place] Anion gap [Moles/Vol] 8 mmol/L Normal 8-15 [facility] Comment on above: Order Comment: Speci men Type: BLOOD SPECIMEN [facility] Facility[facility] Address: [address] [place] [address] Performed By: #### 5 8410-2 #### [facility] CLIA [id number] [address] [place] [address] [place] Calcium [Mass/Vol] 9.2 mg/dL Normal 8.5-10.2 [facility] Comment on above: Order Comment: Speci men Type: BLOOD SPECIMEN [facility] Facility[facility] Address: [address] [place] [address] Performed By: #### 5 8410-2 #### [facility] CLIA [id number] [address] [place] [address] [place] Chloride [Moles/Vol] 92 mmol/L Low 98-107 [facility] Comment on above: Order Comment: Speci men Type: BLOOD SPECIMEN [facility] Facility[facility] Address: [address] [place] [address] Performed By: #### 5 8410-2 #### [facility] CLIA [id number] [address] [place] [address] [place] CO2 [Moles/Vol] 25 mmol/L Normal 22-30 [facility] Comment on above: Order Comment: Marti hankins Type: BLOOD SPECIMEN [facility] Facility[facility] Address: [address] [place] [address] Performed By: #### 5 8410-2 #### [facility] CLIA [id number] [address] [place] [address] [place] Creatinine [Mass/Vol] 1.00 mg/dL High 0.58-0.96 [facility] Comment on above: Order Comment: Marti hankins Type: BLOOD SPECIMEN [facility] Facility[facility] Address: [address] [place] [address] Performed By: #### 5 8410-2 #### [facility] CLIA [id number] [address] [place] eGFRcr SerPlBld CKD-EPI 2020 54 mL/min/1.73m??? Low >=60 [facility] Comment on above: Order Comment: Marti hankins Type: BLOOD SPECIMEN [facility] Facility[facility] Address: [address] [place] [address] Result Comment: Dolores mated Glomerular Filtration Rate [...] #### 5 8410-2 #### [facility] CLIA [id number] [address] [place] Glucose [Mass/Vol] 94 mg/dL Normal 74-99 [facility] Comment on above: Order Comment: Marti hankins Type: BLOOD SPECIMEN [facility] Facility: [facility] Address: [address] [place] [address] Result Comment: The [place] Diabetes Association (ADA) provides guidance for cutoff [...] Standards of Medical Care in Diabetes 2016, [place] Diabetes Association. Diabetes Care. 2016.39(Suppl 1). Performed By: #### 5 8410-2 #### [facility] CLIA [id number] [address] [place] [address] [place] Potassium [Moles/Vol] 3.9 mmol/L Normal 3.7-5.1 [facility] Comment on above: Order Comment: Marti ahnkins Type: BLOOD SPECIMEN [facility] Facility[facility] Address: [address] [place] [address] Performed By: #### 5 8410-2 #### [facility] CLIA [id number] [address] [place] [address] [place] Sodium [Moles/Vol] 125 mmol/L Low 136-144 [facility] Comment on above: Order Comment: Marti hankins Type: BLOOD SPECIMEN [facility] Facility[facility] Address: [address] [place] [address] Performed By: #### 5 8410-2 #### [facility] CLIA [id number] [address] [place] [address] [place] Urea nitrogen [Mass/Vol] 17 mg/dL Normal 7-21 [facility] Comment on above: Order Comment: Marti hankins Type: BLOOD SPECIMEN [facility] Facility[facility] Address: [address] [place] [address] Performed By: #### 5 8410-2 #### [facility] CLIA [id number] [address] [place] [address] [place] CBC panel Auto (Bld)on 06-24 Erythrocyte distribution width (RBC) [Ratio] 13.9 % Normal 11.5-15.0 [facility] Comment on above: Order Comment: Speci men Type: BLOOD SPECIMEN [facility] Facility[facility] Address: [address] [place] [address] Performed By: #### 5 8410-2 #### [facility] CLIA [id number] [address] Hematocrit (Bld) [Volume fraction] 32.6 % Low 36.0-46.0 [facility] Comment on above: Order Comment: Speci men Type: BLOOD SPECIMEN [facility] Facility[facility] Address: [address] [place] [address] Performed By: #### 5 8410-2 #### [facility] CLIA [id number] [address] Hemoglobin (Bld) [Mass/Vol] 11.3 g/dL Low 11.5-15.5 [facility] Comment on above: Order Comment: Speci men Type: BLOOD SPECIMEN [facility] Facility[facility] Address: [address] [place] [address] Performed By: #### 5 8410-2 #### [facility] CLIA [id number] [address] MCH (RBC) [Entitic mass] 31.9 pg Normal 26.0-34.0 [facility] Comment on above: Order Comment: Speci men Type: BLOOD SPECIMEN [facility] Facility[facility] Address: [address] [place] [address] Performed By: #### 5 8410-2 #### [facility] CLIA [id number] [address] MCHC (RBC) [Mass/Vol] 34.7 g/dL Normal 30.5-36.0 [facility] Comment on above: Order Comment: Speci men Type: BLOOD SPECIMEN [facility] Facility[facility] Address: [address] [place] [address] Performed By: #### 5 8410-2 #### [facility] CLIA [id number] [address] [place] [address] [place] MCV (RBC) [Entitic vol] 92.1 fL Normal 80.0-100.0 [facility] Comment on above: Order Comment: Speci men Type: BLOOD SPECIMEN [facility] Facility[facility] Address: [address] [place] [address] Performed By: #### 5 8410-2 #### [facility] CLIA [id number] [address] [place] [address] [place] Nucleated RBC (Bld) [#/Vol] 10*3/uL Normal <0.01 [facility] Comment on above: Order Comment: Speci men Type: BLOOD SPECIMEN [facility] Facility[facility] Address: [address] [place] [address] Performed By: #### 5 8410-2 #### [facility] CLIA [id number] [address] [place] [address] [place] Platelet mean volume (Bld) [Entitic vol] 8.8 fL Low 9.0-12.7 [facility] Comment on above: Order Comment: Speci men Type: BLOOD SPECIMEN [facility] Facility[facility] Address: [address] [place] [address] Performed By: #### 5 8410-2 #### [facility] CLIA [id number] [address] [place] [address] [place] Platelets (Bld) [#/Vol] 259 10*3/uL Normal 150-400 [facility] Comment on above: Order Comment: Speci men Type: BLOOD SPECIMEN [facility] Facility[facility] Address: [address] [place] [address] Performed By: #### 5 8410-2 #### [facility] CLIA [id number] [address] [place] [address] [place] RBC (Bld) [#/Vol] 3.54 10*6/uL Low 3.90-5.20 [facility] Comment on above: Order Comment: Speci men Type: BLOOD SPECIMEN [facility] Facility[facility] Address: [address] [place] [address] Performed By: #### 5 8410-2 #### [facility] CLIA [id number] [address] [place] [id number] [place] WBC (Bld) [#/Vol] 7.63 10*3/uL Normal 3.70-11.00 [facility] Comment on above: Order Comment: Speci men Type: BLOOD SPECIMEN [facility] Facility[facility] Address: [facility] [address] Performed By: #### 5 8410-2 #### [facility] CLIA [id number] [address] [place] [address] [place] CONSULTon 06-24-2025 CONSULT HNO ID: [id number] Author: TOMEKA GORE MD Service: Nephrology Author Type: Physician Type: Consults Filed: 06/24/2025 16:28 Note Text: CONSULT: NEPHROLOGY SERVICE PATIENT NAME: Helen Lieberman DATE of SERVICE: 06/24/25 TIME of SERVICE: 4:20 PM REASON FOR CONSULT: hyponatremia REQUESTING PHYSICIAN: Dr. Casillas PRIMARY CARE PHYSICIAN: Tanya Lozano APRN.PHOTOENGRAVING SUPERVISOR Mrs. Lie[place]man is a 89 year old [...] orthostatics Stop (more content not included)... Normal [facility] Magnesium SerPl-mCncon 06-24 Magnesium [Mass/Vol] 1.7 mg/dL Normal 1.7-2.3 [facility] Comment on above: Order Comment: Marti hankins Type: BLOOD SPECIMEN [facility] Facility[facility] Address: [address] [place] [address] Performed By: #### 5 8410-2 #### [facility] CLIA [id number] [address] [place] [address] [place] Osmolality Uron 06-24-2025 Osmolality (U) [Osmolality] 402 mosm/kg Normal 50-1200 [facility] Comment on above: Order Comment: Marti hankins Type: BLOOD SPECIMEN [facility] Facility[facility] Address: [address] [place] [address] Performed By: #### 5 8410-2 #### [facility] CLIA [id number] [address] [place] PT panel Coag (PPP)on 2024 INR Coag (PPP) [Relative time] 2.0 {INR} High 0.9-1.3 [facility] Comment on above: Order Comment: Marti hankins Type: BLOOD SPECIMEN [facility] Facility[facility] Address: [address] [place] [address] Result Comment: Mirna min K Antagonist (VKA) Therapeutic Range: INR 2 to 3 (Target INR of 2.5) Note: For patients treated with VKA drugs, such as warfarin, the [employer] 2012 Guideline recommends [...] Chest 2012, 141:7S-47S Jayce RA, et al. [facility] 2017, 70: 252-289 Performed By: #### 5 8410-2 #### [facility] CLIA [id number] [address] OF [facility] PT Coag (PPP) [Time] 20.3 s High 9.7-13.0 [facility] Comment on above: Order Comment: Marti hankins Type: BLOOD SPECIMEN [facility] Facility[facility] Address: [address] [place] [address] Performed By: #### 5 8410-2 #### [facility] CLIA [id number] [address] OF [facility] Sodium ?Tm Ur-sCncon 025 Sodium Unsp time (U) [Moles/Vol] 79 mmol/L Normal 14-216 [facility] Comment on above: Order Comment: Marti hankins Type: BLOOD SPECIMEN [facility] Facility[facility] Address: [address] [place] [address] Performed By: #### 5 8410-2 #### [facility] CLIA [id number] [address] [place] THERAPY NTon 06-24-2025 THERAPY NT HNO ID: [id number] Author: TORIE AUGUSTINE OT/Anna Service: Occupational Therapy Author Type: Occupational Therapist Type: Therapy (PT/OT/Speech/Resp) Filed: 06/24/2025 09:56 Note Text: Summary: OT Evaluation Occupational Therapy Evaluation Summary SERVICE DATE: 06/24/2025 SERVICE TIME: 921 ROOM: [id number] OT 6 Clicks Score: 19 DISCHARGE RECOMMENDATIONS [...] completes Equipment Owned: Cane, Grab Bars- Shower, University Administrator, Long Handled Sponge, Hand Held Shower PRIOR FUNCTIONAL LEVEL Within Functional Limits Patient reports independence with ADLs/IADLs 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 + driving, self medical [...] Occupational Therapy, Safety/Judgment, Sitting Balance to Improve [place] with ADLs/Self-Care, Standing Balance to Improve [place] with ADLs/Self-Care, Transfer - Sit to Stand, [...] Patient will demonstra (more content not included)... [facility] THERAPY NT HNO ID: [id number] Author: MENDEL JUAREZ, PT Service: Physical Therapy Author Type: Physical Therapist Type: Therapy (PT/OT/Speech/Resp) Filed: 06/24/2025 09:19 Note Text: Summary: PT Evaluation Physical Therapy Evaluation Summary SERVICE DATE: 06/24/2025 SERVICE TIME: 854 to 906 ROOM: [id number] PT 6 Clicks Score: 17 DISCHARGE RECOMMENDATIONS [...] completes Equipment Owned: Cane, Grab Bars- Shower, University Administrator, Long Handled Sponge PRIOR FUNCTIONAL LEVEL Within Functional Limits Patient reports independence with ADLs/IADLs 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 + driving, self medical [...] Management, Energy Con (more content not included)... [facility] ALLIED HEALTHon 06-23-2025 ALLIED HEALTH HNO ID: [id number] Author: EVELYNE DEL CID RT(Jodee) Service: Radiology [...] PATIENT PRESENTS WITH AN IMPLANTABLE OR ATTACHED DRYWALL SPRAYER: No RADIOLOGY DEPARTMENT: General X-ray: Exam(s) Completed: Chest X-Ray PERIPHERAL IV DATA: Not applicable SIGNED BY: RT Enriqueta(R) June 23, 2025 2:54 PM [facility] Basic metabolic 2000 panelon 06-23-2025 Anion gap [Moles/Vol] 12 mmol/L Normal 8-15 [facility] Comment on above: Order Comment: Marti hankins Type: BLOOD SPECIMEN [facility] Facility[facility] Address: [address] [place] [address] Performed By: #### 5 8410-2 #### [facility] CLIA [id number] [address] [place] [address] [place] Calcium [Mass/Vol] 9.3 mg/dL Normal 8.5-10.2 [facility] Comment on above: Order Comment: Marti hankins Type: BLOOD SPECIMEN [facility] Facility[facility] Address: [address] [place] [address] Performed By: #### 5 8410-2 #### [facility] CLIA [id number] [address] [place] [address] [place] Chloride [Moles/Vol] 86 mmol/L Low 98-107 [facility] Comment on above: Order Comment: Speci men Type: BLOOD SPECIMEN [facility] Facility[facility] Address: [address] [place] [address] Performed By: #### 5 8410-2 #### [facility] CLIA [id number] [address] [place] [address] [place] CO2 [Moles/Vol] 26 mmol/L Normal 22-30 [facility] Comment on above: Order Comment: Speci men Type: BLOOD SPECIMEN [facility] Facility[facility] Address: [address] [place] [address] Performed By: #### 5 8410-2 #### [facility] CLIA [id number] [address] [place] [address] [place] Creatinine [Mass/Vol] 0.89 mg/dL Normal 0.58-0.96 [facility] Comment on above: Order Comment: Speci men Type: BLOOD SPECIMEN [facility] Facility[facility] Address: [address] [place] [address] Performed By: #### 5 8410-2 #### [facility] CLIA [id number] [address] [place] [address] [place] eGFRcr SerPlBld CKD-EPI 2020 62 mL/min/1.73m??? Normal >=60 [facility] Comment on above: Order Comment: Shanikai men Type: BLOOD SPECIMEN [facility] Facility[facility] Address: [address] [place] [address] Result Comment: Dolores mated Glomerular Filtration Rate [...] GFR. Performed By: #### 5 8410-2 #### [facility] CLIA [id number] [address] [place] [address] [place] Glucose [Mass/Vol] 133 mg/dL High 74-99 [facility] Comment on above: Order Comment: Speci men Type: BLOOD SPECIMEN [facility] Facility[facility] Address: [address] [place] [address] Result Comment: The [place] Diabetes Association (ADA) provides guidance for cutoff [...] Standards of Medical Care in Diabetes 2016, [place] Diabetes Association. Diabetes Care. 2016.39(Suppl 1). Performed By: #### 5 8410-2 #### [facility] CLIA [id number] [address] [place] [address] [place] Potassium [Moles/Vol] 3.6 mmol/L Low 3.7-5.1 [facility] Comment on above: Order Comment: Marti hankins Type: BLOOD SPECIMEN [facility] Facility[facility] Address: [address] [place] [address] Performed By: #### 5 8410-2 #### [facility] CLIA [id number] [address] [place] [address] [place] Sodium [Moles/Vol] 124 mmol/L Low 136-144 [facility] Comment on above: Order Comment: Marti hankins Type: BLOOD SPECIMEN [facility]ing Facility: [facility] Address: [address] [place] [address] Performed By: #### 5 8410-2 #### [facility] CLIA [id number] [address] [place] [address] [place] Urea nitrogen [Mass/Vol] 16 mg/dL Normal 7-21 [facility] Comment on above: Order Comment: Marti hankins Type: BLOOD SPECIMEN [facility] Facility[facility] Address: [address] [place] [address] Performed By: #### 5 8410-2 #### [facility] CLIA [id number] [address] [place] [address] [place] CBC W Auto Differential pane l (Bld)on 06-23-2025 Basophils (Bld) [#/Vol] 10*3/uL Normal <0.11 [facility] Comment on above: Order Comment: Speci men Type: BLOOD SPECIMENOrdering Facility: [facility] Address: [address] [place] [address] Performed By: #### 5 7021-8 ####[facility] [id number] [address] STATES [facility] Basophils/100 WBC (Bld) 0.2 % Normal [facility] Comment on above: Order Comment: Speci men Type: BLOOD SPECIMENOrdering Facility: [facility] Address: [address] [place] [address] Performed By: #### 5 7021-8 ####[facility] [id number] [address] Differential cell count method Nom (Bld) Auto Normal [facility] Comment on above: Order Comment: Speci men Type: BLOOD SPECIMENOrdering Facility: [facility] Address: [address] [place] [address] Performed By: #### 5 7021-8 ####[facility] [id number] [address] [place] Eosinophils (Bld) [#/Vol] 0.09 10*3/uL Normal <0.46 [facility] Comment on above: Order Comment: Speci men Type: BLOOD SPECIMENOrdering Facility: [facility] Address: [address] [place] [address] Performed By: #### 5 7021-8 ####[facility] [id number] [address] Eosinophils/100 WBC (Bld) 1.1 % Normal [facility] Comment on above: Order Comment: Speci men Type: BLOOD SPECIMENOrdering Facility: [facility] Address: [address] [place] [address] Performed By: #### 5 7021-8 ####[facility] [id number] [place] [address] [place] Erythrocyte distribution width (RBC) [Ratio] 14.0 % Normal 11.5-15.0 [facility] Comment on above: Order Comment: Speci men Type: BLOOD SPECIMENOrdering Facility: [facility] Address: [address] [place] [address] Performed By: #### 5 7021-8 ####[facility] [id number] [place] [address] [place] Hematocrit (Bld) [Volume fraction] 33.8 % Low 36.0-46.0 [facility] Comment on above: Order Comment: Speci men Type: BLOOD SPECIMENOrdering Facility: [facility] Address: [address] [place] [address] Performed By: #### 5 7021-8 ####[facility] [id number] [place] [address] [place] Hemoglobin (Bld) [Mass/Vol] 11.6 g/dL Normal 11.5-15.5 [facility] Comment on above: Order Comment: Speci men Type: BLOOD SPECIMENOrdering Facility: [facility] Address: [address] [place] [address] Performed By: #### 5 7021-8 ####[facility] [id number] [place] [address] [place] Immature granulocytes (Bld) [#/Vol] 10*3/uL Normal <0.10 [facility] Comment on above: Order Comment: Speci men Type: BLOOD SPECIMENOrdering Facility: [facility] Address: [address] [place] [address] Performed By: #### 5 7021-8 ####[facility] [id number] [place] [address] [place] Immature granulocytes/100 WBC (Bld) 0.1 % Normal [facility] Comment on above: Order Comment: Speci men Type: BLOOD SPECIMENOrdering Facility: [facility] Address: [address] [place] [address] Performed By: #### 5 7021-8 ####[facility] [id number] [address] Lymphocytes (Bld) [#/Vol] 1.49 10*3/uL Normal 1.00-4.00 [facility] Comment on above: Order Comment: Speci men Type: BLOOD SPECIMENOrdering Facility: [facility] Address: [address] [place] [address] Performed By: #### 5 7021-8 ####[facility] [id number] [address] Lymphocytes/100 WBC (Bld) 18.2 % Normal [facility] Comment on above: Order Comment: Speci men Type: BLOOD SPECIMENOrdering Facility: [facility] Address: [address] [place] [address] Performed By: #### 5 7021-8 ####[facility] [id number] [address] MCH (RBC) [Entitic mass] 31.6 pg Normal 26.0-34.0 [facility] Comment on above: Order Comment: Speci men Type: BLOOD SPECIMENOrdering Facility: [facility] Address: [address] [place] [address] Performed By: #### 5 7021-8 ####[facility] [id number] [address] MCHC (RBC) [Mass/Vol] 34.3 g/dL Normal 30.5-36.0 [facility] Comment on above: Order Comment: Speci men Type: BLOOD SPECIMENOrdering Facility: [facility] Address: [address] [place] [address] Performed By: #### 5 7021-8 ####[facility] [id number] [address] MCV (RBC) [Entitic vol] 92.1 fL Normal 80.0-100.0 [facility] Comment on above: Order Comment: Speci men Type: BLOOD SPECIMENOrdering Facility: [facility] Address: [address] [place] [address] Performed By: #### 5 7021-8 ####[facility] [id number] [place] [address] [place] Monocytes (Bld) [#/Vol] 0.92 10*3/uL High <0.87 [facility] Comment on above: Order Comment: Speci men Type: BLOOD SPECIMENOrdering Facility: [facility] Address: [address] [place] [address] Performed By: #### 5 7021-8 ####[facility] [id number] [address] [place] Monocytes/100 WBC (Bld) 11.3 % Normal [facility] Comment on above: Order Comment: Speci men Type: BLOOD SPECIMENOrdering Facility: [facility] Address: [address] [place] [address] Performed By: #### 5 7021-8 ####[facility] [id number] [address] [place] Neutrophils (Bld) [#/Vol] 5.64 10*3/uL Normal 1.45-7.50 [facility] Comment on above: Order Comment: Speci men Type: BLOOD SPECIMENOrdering Facility: [facility] Address: [address] [place] [address] Performed By: #### 5 7021-8 ####[facility] [id number] [address] [place] Neutrophils/100 WBC (Bld) 69.1 % Normal [facility] Comment on above: Order Comment: Speci men Type: BLOOD SPECIMENOrdering Facility: [facility] Address: [address] [place] [address] Performed By: #### 5 7021-8 ####[facility] [id number] [place] [address] [place] Nucleated RBC (Bld) [#/Vol] 10*3/uL Normal <0.01 [facility] Comment on above: Order Comment: Speci men Type: BLOOD SPECIMENOrdering Facility: [facility] Address: [address] [place] [address] Performed By: #### 5 7021-8 ####[facility] [id number] [place] [address] [place] Nucleated RBC/100 WBC (Bld) [Ratio] 0.0 /100 WBC Normal [facility] Comment on above: Order Comment: Speci men Type: BLOOD SPECIMENOrdering Facility: [facility] Address: [address] [place] [address] Performed By: #### 5 7021-8 ####[facility] [id number] [place] [address] [place] Platelet mean volume (Bld) [Entitic vol] 8.9 fL Low 9.0-12.7 [facility] Comment on above: Order Comment: Speci men Type: BLOOD SPECIMENOrdering Facility: [facility] Address: [address] [place] [address] Performed By: #### 5 7021-8 ####[facility] [id number] [address] [place] Platelets (Bld) [#/Vol] 297 10*3/uL Normal 150-400 [facility] Comment on above: Order Comment: Speci men Type: BLOOD SPECIMENOrdering Facility: [facility] Address: [address] [place] [address] Performed By: #### 5 7021-8 ####[facility] [id number] [address] [place] RBC (Bld) [#/Vol] 3.67 10*6/uL Low 3.90-5.20 [facility] Comment on above: Order Comment: Speci men Type: BLOOD SPECIMENOrdering Facility: [facility] Address: [address] [place] [address] Performed By: #### 5 7021-8 ####[facility] [id number] [address] [place] WBC (Bld) [#/Vol] 8.17 10*3/uL Normal 3.70-11.00 [facility] Comment on above: Order Comment: Speci men Type: BLOOD SPECIMENOrdering Facility: [facility] Address: [address] [place] [address] Performed By: #### 5 7021-8 ####[facility] [id number] [place] [address] [place] ABD/PEL WO IVCONon 2024 CT ABD/PEL WO IVCON * * *Final Report* * * DATE OF EXAM: Jun 23 2025 5:16PM [facility] 0531 - CT ABD/PEL WO IVCON / [...] noncontrast examination, there is no acute abnormality. Stripper Soft Plastic: ANSHU Transcribe Date/Time: Jun 23 2025 6:47P Dictated by : DON REYES MD This examination was interpreted and the report reviewed and electronically signed by: DON REYES MD on Jun 23 2025 6:52PM EST [id number] [facility] CT BRAIN WO IVCONon 06-23-20 CT BRAIN WO IVCON * * *Final Report* * * DATE OF EXAM: Jun 23 2025 5:16PM [facility] 0504 - CT BRAIN WO IVCON / [...] additional findings. IMPRESSION: No acute intracranial abnormality. Stripper Soft Plastic: PSCEulalio Transcribe Date/Time: Jun 23 2025 6:43P Dictated by : DON REYES MD This examination was interpreted and the report reviewed and electronically signed by: DON REYES MD on Jun 23 2025 6:46PM EST [id number] [facility] Comprehensive metabolic 2000 panelon 06-23-2025 Albumin [Mass/Vol] 4.1 g/dL Normal 3.9-4.9 [facility] Comment on above: Order Comment: Speci men Type: BLOOD SPECIMEN [facility] Address: [address] [place] [address] Performed By: #### 5 8410-2 #### [facility] CLIA [id number] [address] [place] ALP [Catalytic activity/Vol] 69 U/L Normal 34-123 [facility] Comment on above: Order Comment: Speci men Type: BLOOD SPECIMEN [facility] Facility[facility] Address: [address] [place] [address] Performed By: #### 5 8410-2 #### [facility] CLIA [id number] [address] [place] ALT [Catalytic activity/Vol] 9 U/L Normal 7-38 [facility] Comment on above: Order Comment: Speci men Type: BLOOD SPECIMEN [facility] Address: [address] [place] [address] Performed By: #### 5 8410-2 #### [facility] CLIA [id number] [address] [place] Anion gap [Moles/Vol] 8 mmol/L Normal 8-15 [facility] Comment on above: Order Comment: Speci men Type: BLOOD SPECIMEN [facility] Address: [address] [place] [address] Performed By: #### 5 8410-2 #### [facility] CLIA [id number] [address] [place] AST [Catalytic activity/Vol] 13 U/L Normal 13-35 [facility] Comment on above: Order Comment: Speci men Type: BLOOD SPECIMEN [facility] Address: [address] [place] [address] Performed By: #### 5 8410-2 #### [facility] CLIA [id number] [address] [place] Bilirubin [Mass/Vol] 1.8 mg/dL High 0.2-1.3 [facility] Comment on above: Order Comment: Speci men Type: BLOOD SPECIMEN [facility] Address: [address] [place] [address] Performed By: #### 5 8410-2 #### [facility] CLIA [id number] [address] [place] [address] [place] Calcium [Mass/Vol] 9.3 mg/dL Normal 8.5-10.2 [facility] Comment on above: Order Comment: Speci men Type: BLOOD SPECIMEN [facility] Address: [address] [place] [address] Performed By: #### 5 8410-2 #### [facility] CLIA [id number] [address] [place] [address] [place] Chloride [Moles/Vol] 89 mmol/L Low 98-107 [facility] Comment on above: Order Comment: Speci men Type: BLOOD SPECIMEN [facility] Address: [address] [place] [address] Performed By: #### 5 8410-2 #### [facility] CLIA [id number] [address] [place] [address] [place] CO2 [Moles/Vol] 25 mmol/L Normal 22-30 [facility] Comment on above: Order Comment: Speci men Type: BLOOD SPECIMEN [facility] Address: [address] [place] [address] Performed By: #### 5 8410-2 #### [facility] CLIA [id number] [address] [place] [address] [place] Creatinine [Mass/Vol] 0.86 mg/dL Normal 0.58-0.96 [facility] Comment on above: Order Comment: Speci men Type: BLOOD SPECIMEN [facility] Address: [address] [place] [address] Performed By: #### 5 8410-2 #### [facility] CLIA [id number] [address] [place] eGFRcr SerPlBld CKD-EPI 2020 65 mL/min/1.73m??? Normal >=60 [facility] Comment on above: Order Comment: Speci men Type: BLOOD SPECIMEN [facility] Address: [address] [place] [address] Result Comment: Dolores mated Glomerular Filtration Rate [...] GFR. Performed By: #### 5 8410-2 #### [facility] CLIA [id number] [address] [place] [address] [place] Glucose [Mass/Vol] 118 mg/dL High 74-99 [facility] Comment on above: Order Comment: Marti hankins Type: BLOOD SPECIMEN [facility] Facility[facility] Address: [address] [place], [place] [address] Result Comment: The [place] Diabetes Association (ADA) provides guidance for cutoff [...] Standards of Medical Care in Diabetes 2016, [place] Diabetes Association. Diabetes Care. 2016.39(Suppl 1). Performed By: #### 5 8410-2 #### [facility] CLIA [id number] [address] [place] [address] [place] Potassium [Moles/Vol] 3.6 mmol/L Low 3.7-5.1 [facility] Comment on above: Order Comment: Marti hankins Type: BLOOD SPECIMEN [facility] Address: [address] [place] [address] Performed By: #### 5 8410-2 #### [facility] CLIA [id number] [address] [place] [address] [place] Protein [Mass/Vol] 7.2 g/dL Normal 6.3-8.0 [facility] Comment on above: Order Comment: Speci men Type: BLOOD SPECIMEN [facility] Address: [address] [place] [address] Performed By: #### 5 8410-2 #### [facility] CLIA [id number] [address] Sodium [Moles/Vol] 122 mmol/L Low 136-144 [facility] Comment on above: Order Comment: Speci men Type: BLOOD SPECIMEN [facility] Address: [address] [place] [address] Performed By: #### 5 8410-2 #### [facility] CLIA [id number] [address] [place] Urea nitrogen [Mass/Vol] 17 mg/dL Normal 7-21 [facility] Comment on above: Order Comment: Speci men Type: BLOOD SPECIMEN [facility] Address: [address] [place] [address] Performed By: #### 5 8410-2 #### [facility] CLIA [id number] [address] ED NOTEon 06-23-2025 ED NOTE HNO ID: [id number] Author: TARAH CORBETT RN Service: Nursing Author Type: Registered Nurse Type: ED Notes Filed: 06/23/2025 19:51 Note Text: Second HU called to 3 [facility] Nurse [facility] ED NOTE HNO ID: [id number] Author: SONAL PABON RN Service: Behavioral Health Author Type: Registered Nurse Type: ED Notes Filed: 06/23/2025 19:33 Note Text: Report to tarah boateng [facility] ED NOTE HNO ID: [id number] Author: TIERA RÍOS RN Service: ? Author Type: Registered Nurse Type: ED Notes Filed: 06/23/2025 14:20 Note Text: Bed: ED-10 Expected date: Expected time: Means of arrival: Comments: [facility] ED PROV NOTEon 06-23-2025 ED PROV NOTE HNO ID: [id number] Author: ALEKS TAMEZ MD Service: Emergency Medicine [...] no STEMI Confirmed by ALEKS TAMEZ MD ([id number]) on 06/23/2025 2:39:39 PM P (more content not included)... Normal [facility] EKGon 06-23-2025 Electrocardiogram Ventricular Rate : 6 7 BPM QRS Duration : 82 ms Q-T Interval : 434 ms QTC Calculation(Bazett) : 458 ms Calculated R Marcus : 30 degrees Calculated T Marcus : 115 degrees ATRIAL FIBRILLATION MINIMAL VOLTAGE [...] PM NAME : HELEN LIEBERMAN PID : [id number] : 1935 Gender : Female Race : [...] : , Acquired by : Surinder GASTELUM [facility] HIGH SENSITIVITY TROPONIN T (INITIAL)on 06-23-2025 Troponin T.cardiac High sensitivity method [Mass/Vol] 22 ng/L High [address] Comment on above: Order Comment: Speci men Type: BLOOD SPECIMEN [facility] Address: [address] [place] [address] Performed By: #### 5 8410-2 #### [facility] CLIA [id number] [address] [place] [address] [place] HIGH SENSITIVITY TROPONIN T (SECOND)on 06-23-2025 Troponin T.cardiac High sensitivity method [Mass/Vol] 23 ng/L High [address] Comment on above: Order Comment: Shanikakerrie hankins Type: BLOOD SPECIMEN [facility] Address: [address] [place] [id number] Performed By: #### L [id number] #### [facility] CLIA [id number] [address] HIGH SENSITIVITY TROPONIN T (THIRD) 3 HRS AFTER INITIALon 06-23-2025 Troponin T.cardiac High sensitivity method [Mass/Vol] 23 ng/L High <12 [facility] Comment on above: Order Comment: Shanikakerrie hankins Type: BLOOD SPECIMENOrdering Facility: [facility] Address: [address] [place] [address] Performed By: #### L [id number] ####[facility] [id number] [place] [address] [facility] HISTORY PHYSICALon HISTORY PHYSICAL HNO ID: [id number] Author: NIKKI RIOJAS APRN.CNP Service: Hospital Medicine [...] 7:45 PM Primary Care Physician: Tanya Lozano APRN.PHOTOENGRAVING SUPERVISOR NIGHT AND WEEKEND COVERAGE: [facility] [employer]: Days: [phone], please page attending physician. Nights: [phone], please page [place] [facility] Night coverage pager [phone]. Subjective CHIEF COMPLAINT: weakness HPI: This is [...] No respirato (more content not included)... Normal [facility] Magnesium SerPl-mCncon 06-23 Magnesium [Mass/Vol] 1.8 mg/dL Normal 1.7-2.3 [facility] Comment on above: Order Comment: Speci men Type: BLOOD SPECIMEN [facility] Address: [address] [place] [address] Performed By: #### 5 8410-2 #### [facility] CLIA [id number] [address] [place] [address] [place] [facility] Natriuretic peptide.B prohormone N-Terminal [Mass/Vol] 1644 pg/mL High <450 [facility] Comment on above: Order Comment: Shanikai cr Type: BLOOD SPECIMEN [facility] Address: [address] [place] [address] Performed By: #### 5 8410-2 #### [facility] CLIA [id number] [address] [place] [address] [place] Osmolality SerPlon 5 Osmolality [Osmolality] 267 mosm/kg Low 275-300 [facility] Comment on above: Order Comment: Shanikai cr Type: BLOOD SPECIMEN [facility] Address: [address] [place] [address] Performed By: #### 5 8410-2 #### [facility] CLIA [id number] [address] [place] PT panel Coag (PPP)on 2024 INR Coag (PPP) [Relative time] 2.0 {INR} High 0.9-1.3 [facility] Comment on above: Order Comment: Marti hankins Type: BLOOD SPECIMENOrdering Facility: [facility] Address: [address] [place] [address] Result Comment: Mirna min K Antagonist (VKA) Therapeutic Range: INR 2 to 3 (Target INR of 2.5) Note: For patients treated with VKA drugs, such as warfarin, the [employer] 2012 Guideline recommends [...] Chest 2012, 141:7S-47S Jayce RA, et al. [facility] 2017, 70: 252-289 Performed By: #### 3 4528-0, 58347-7 ####[facility] [id number] [place] [address] [place] PT Coag (PPP) [Time] 21.1 s High 9.7-13.0 [facility] Comment on above: Order Comment: Speci men Type: BLOOD SPECIMENOrdering Facility: [facility] Address: [address] [place] [address] Performed By: #### 3 4528-0, 74190-1 ####[facility] [id number] [address] [place] Urate SerPl-mCncon Urate [Mass/Vol] 4.1 mg/dL Normal 2.5-6.6 [facility] Comment on above: Order Comment: Speci men Type: BLOOD SPECIMEN [facility] Facility: [facility] Address: [address] [place] [address] Performed By: #### 5 8410-2 #### [facility] CLIA [id number] [address] [place] Urinalysis complete panel (U )on 06-23-2025 Bacteria LM.HPF (Urine sed) [#/Area] Rare Abnormal None Seen [facility] Comment on above: Order Comment: Speci men Type: BLOOD SPECIMEN Ordering Facility: [facility] Address: [address] [place] [address] Performed By: #### 5 8410-2 #### [facility] CLIA [id number] [address] [place] Bilirubin Ql (U) Negative Normal Negative [facility] Comment on above: Order Comment: Speci men Type: BLOOD SPECIMEN [facility]ing Facility: [facility] Address: [address] [place] [address] Performed By: #### 5 8410-2 #### [facility] CLIA [id number] [address] Clarity (Unsp spec) Clear Normal Clear [facility] Comment on above: Order Comment: Speci men Type: BLOOD SPECIMEN [facility]ing Facility: [facility] Address: [address] [place] [address] Performed By: #### 5 8410-2 #### [facility] CLIA [id number] [address] [place] Color (U) Yellow Normal Yellow [facility] Comment on above: Order Comment: Speci men Type: BLOOD SPECIMEN [facility]ing Facility: [facility] Address: [address] [place] [address] Performed By: #### 5 8410-2 #### [facility] CLIA [id number] [address] Epithelial cells LM.HPF (Urine sed) [#/Area] Few Normal [facility] Comment on above: Order Comment: Speci men Type: BLOOD SPECIMEN [facility]ing Facility[facility] Address: [address] [place] [address] Performed By: #### 5 8410-2 #### [facility] CLIA [id number] [address] Glucose Test strip (U) [Mass/Vol] Negative Normal Negative [facility] Comment on above: Order Comment: Speci men Type: BLOOD SPECIMEN [facility]ing Facility: [facility] Address: [address] [place] [address] Performed By: #### 5 8410-2 #### [facility] CLIA [id number] [address] [place] Hemoglobin Ql (U) Negative Normal Negative [facility] Comment on above: Order Comment: Speci men Type: BLOOD SPECIMEN [facility] Facility[facility] Address: [address] [place] [address] Performed By: #### 5 8410-2 #### [facility] CLIA [id number] [address] [place] Ketones Ql (U) Negative Normal Negative [facility] Comment on above: Order Comment: Speci men Type: BLOOD SPECIMEN [facility] Facility[facility] Address: [address] [place] [address] Performed By: #### 5 8410-2 #### [facility] CLIA [id number] [address] Leukocyte esterase Test strip Ql (U) 1+ Abnormal Negative [facility] Comment on above: Order Comment: Speci men Type: BLOOD SPECIMEN [facility]ing Facility: [facility] Address: [address] [place] [address] Performed By: #### 5 8410-2 #### [facility] CLIA [id number] [address] Nitrite Ql (U) Negative Normal Negative [facility] Comment on above: Order Comment: Speci men Type: BLOOD SPECIMEN [facility]ing Facility: [facility] Address: [address] [place] [address] Performed By: #### 5 8410-2 #### [facility] CLIA [id number] [address] [place] [address] [place] pH (U) 7.0 [pH] Normal 5.0-8.0 [facility] Comment on above: Order Comment: Speci men Type: BLOOD SPECIMEN [facility] Facility[facility] Address: [address] [place] [address] Performed By: #### 5 8410-2 #### [facility] CLIA [id number] [address] [place] [address] [place] Protein (U) [Mass/Vol] Negative Normal Negative [facility] Comment on above: Order Comment: Speci men Type: BLOOD SPECIMEN [facility]ing Facility[facility] Address: [address] [place] [address] Performed By: #### 5 8410-2 #### [facility] CLIA [id number] [address] [place] RBC LM.HPF (Urine sed) [#/Area] 0-3 /HPF Normal 0-3 /HPF [facility] Comment on above: Order Comment: Speci men Type: BLOOD SPECIMEN [facility]ing Facility: [facility] Address: [address] [place] [address] Performed By: #### 5 8410-2 #### [facility] CLIA [id number] [address] Specific gravity (U) [Rel density] 1.010 Normal 1.005-1.030 [facility] Comment on above: Order Comment: Speci men Type: BLOOD SPECIMEN [facility]ing Facility: [facility] Address: [address] [place] [address] Performed By: #### 5 8410-2 #### [facility] CLIA [id number] [address] [place] Urobilinogen Ql (U) 2.0 EU/dL Abnormal 0.2-1.0 EU/dL [facility] Comment on above: Order Comment: Speci men Type: BLOOD SPECIMEN [facility]ing Facility[facility] Address: [address] [place] [address] Performed By: #### 5 8410-2 #### [facility] CLIA [id number] [address] [place] WBC LM.HPF (Urine sed) [#/Area] 0-5 /HPF Normal 0-5 /HPF [facility] Comment on above: Order Comment: Speci men Type: BLOOD SPECIMEN [facility] Facility[facility] Address: [address] [place] [address] Performed By: #### 5 8410-2 #### [facility] CLIA [id number] [address] [place] XR CHEST 1V [...] in the chest. No significant interval changes. Stripper Soft Plastic: ANSHU Transcribe Date/Time: Jun 23 2025 3:23P Dictated by : TAI ATWOOD MD This examination was interpreted and the report reviewed and electronically signed by: TAI ATWOOD MD on Jun 23 2025 3:25PM EST [id number] Normal [facility] aPTT PPPon 06-23-2025 aPTT Coag (PPP) [Time] 34.2 s High 23.0-32.4 [facility] Comment on above: Order Comment: Speci men Type: BLOOD SPECIMENOrdering Facility: [facility] Address: [address] [place] [address] Performed By: #### 3 4528-0, 22871-5 ####[facility] [id number] [address] STATES OF [facility] CNPNon 06-21-2025 CNPN Telephone (OTOLTW) HELEN LIEBERMAN ([id number]) 1935 F Date Time Provider Department 06/21/25 [...] calling: self Call patient at: at home [phone] (home) [phone] (cell) Was an appointment scheduled: Yes: Date/Time: 07/22/25 Closing statement: Results or non-symptom based questions: Thank you for calling [facility], your call will be returned within the [...] Status:Closed by TORIE RIVERA on 06/21/25 Normal [facility] CBC W Auto Differential pane l (Bld)on 06-20-2025 Basophils (Bld) [#/Vol] 0.05 10*3/uL Normal <0.11 [facility] Comment on above: Order Comment: Speci men Type: BLOOD SPECIMENOrdering Facility: [facility] Address: [address] [place] [address] Performed By: #### 5 7021-8 ####[facility] [id number] [place] [address] [place] Basophils/100 WBC (Bld) 0.6 % Normal [facility] Comment on above: Order Comment: Speci men Type: BLOOD SPECIMENOrdering Facility: [facility] Address: [address] [place] [address] Performed By: #### 5 7021-8 ####[facility] [id number] [place] [address] [place] Differential cell count method Nom (Bld) Auto Normal [facility] Comment on above: Order Comment: Speci men Type: BLOOD SPECIMENOrdering Facility: [facility] Address: [address] [place] [address] Performed By: #### 5 7021-8 ####[facility] [id number] [place] [address] [place] Eosinophils (Bld) [#/Vol] 0.12 10*3/uL Normal <0.46 [facility] Comment on above: Order Comment: Speci men Type: BLOOD SPECIMENOrdering Facility: [facility] Address: [address] [place] [address] Performed By: #### 5 7021-8 ####[facility] [id number] [address] [place] Eosinophils/100 WBC (Bld) 1.5 % Normal [facility] Comment on above: Order Comment: Speci men Type: BLOOD SPECIMENOrdering Facility: [facility] Address: [address] [place] [address] Performed By: #### 5 7021-8 ####[facility] [id number] [place] [address] [place] Erythrocyte distribution width (RBC) [Ratio] 14.8 % Normal 11.5-15.0 [facility] Comment on above: Order Comment: Speci men Type: BLOOD SPECIMENOrdering Facility: [facility] Address: [address] [place] [address] Performed By: #### 5 7021-8 ####[facility] [id number] [address] [place] Hematocrit (Bld) [Volume fraction] 38.8 % Normal 36.0-46.0 [facility] Comment on above: Order Comment: Speci men Type: BLOOD SPECIMENOrdering Facility: [facility] Address: [address] [place] [address] Performed By: #### 5 7021-8 ####[facility] [id number] [address] [place] Hemoglobin (Bld) [Mass/Vol] 12.5 g/dL Normal 11.5-15.5 [facility] Comment on above: Order Comment: Speci men Type: BLOOD SPECIMENOrdering Facility: [facility] Address: [address] [place] [address] Performed By: #### 5 7021-8 ####[facility] [id number] [address] [place] Immature granulocytes (Bld) [#/Vol] 10*3/uL Normal <0.10 [facility] Comment on above: Order Comment: Speci men Type: BLOOD SPECIMENOrdering Facility: [facility] Address: [address] [place] [address] Performed By: #### 5 7021-8 ####[facility] [id number] [address] Immature granulocytes/100 WBC (Bld) 0.3 % Normal [facility] Comment on above: Order Comment: Speci men Type: BLOOD SPECIMENOrdering Facility: [facility] Address: [address] [place] [address] Performed By: #### 5 7021-8 ####[facility] [id number] [address] [place] Lymphocytes (Bld) [#/Vol] 1.38 10*3/uL Normal 1.00-4.00 [facility] Comment on above: Order Comment: Speci men Type: BLOOD SPECIMENOrdering Facility: [facility] Address: [address] [place] [address] Performed By: #### 5 7021-8 ####[facility] [id number] [address] Lymphocytes/100 WBC (Bld) 17.7 % Normal [facility] Comment on above: Order Comment: Speci men Type: BLOOD SPECIMENOrdering Facility: [facility] Address: [address] [place] [address] Performed By: #### 5 7021-8 ####[facility] [id number] [address] MCH (RBC) [Entitic mass] 31.3 pg Normal 26.0-34.0 [facility] Comment on above: Order Comment: Speci men Type: BLOOD SPECIMENOrdering Facility: [facility] Address: [address] [place] [address] Performed By: #### 5 7021-8 ####[facility] [id number] [address] STATES [facility] MCHC (RBC) [Mass/Vol] 32.2 g/dL Normal 30.5-36.0 [facility] Comment on above: Order Comment: Speci men Type: BLOOD SPECIMENOrdering Facility: [facility] Address: [address] [place] [address] Performed By: #### 5 7021-8 ####[facility] [id number] [address] MCV (RBC) [Entitic vol] 97.0 fL Normal 80.0-100.0 [facility] Comment on above: Order Comment: Speci men Type: BLOOD SPECIMENOrdering Facility: [facility] Address: [address] [place] [address] Performed By: #### 5 7021-8 ####[facility] [id number] [address] Monocytes (Bld) [#/Vol] 0.69 10*3/uL Normal <0.87 [facility] Comment on above: Order Comment: Speci men Type: BLOOD SPECIMENOrdering Facility: [facility] Address: [address] [place] [address] Performed By: #### 5 7021-8 ####[facility] [id number] [place] [address] [place] Monocytes/100 WBC (Bld) 8.9 % Normal [facility] Comment on above: Order Comment: Speci men Type: BLOOD SPECIMENOrdering Facility: [facility] Address: [address] [place] [address] Performed By: #### 5 7021-8 ####[facility] [id number] [place] [address] [place] Neutrophils (Bld) [#/Vol] 5.53 10*3/uL Normal 1.45-7.50 [facility] Comment on above: Order Comment: Speci men Type: BLOOD SPECIMENOrdering Facility: [facility] Address: [address] [place] [address] Performed By: #### 5 7021-8 ####[facility] [id number] [place] [address] [place] Neutrophils/100 WBC (Bld) 71.0 % Normal [facility] Comment on above: Order Comment: Speci men Type: BLOOD SPECIMENOrdering Facility: [facility] Address: [address] [place] [address] Performed By: #### 5 7021-8 ####[facility] [id number] [place] [address] [place] Nucleated RBC (Bld) [#/Vol] 10*3/uL Normal <0.01 [facility] Comment on above: Order Comment: Speci men Type: BLOOD SPECIMENOrdering Facility: [facility] Address: [address] [place] [address] Performed By: #### 5 7021-8 ####[facility] [id number] [place] [address] [place] Nucleated RBC/100 WBC (Bld) [Ratio] 0.0 /100 WBC Normal [facility] Comment on above: Order Comment: Speci men Type: BLOOD SPECIMENOrdering Facility: [facility] Address: [address] [place] [address] Performed By: #### 5 7021-8 ####[facility] [id number] [place] [id number] [place] Platelet mean volume (Bld) [Entitic vol] 8.8 fL Low 9.0-12.7 [facility] Comment on above: Order Comment: Speci men Type: BLOOD SPECIMENOrdering Facility: [facility] Address: [facility] [place] [address] Performed By: #### 5 7021-8 ####[facility] [id number] [place] [id number] [place] Platelets (Bld) [#/Vol] 286 10*3/uL Normal 150-400 [facility] Comment on above: Order Comment: Speci men Type: BLOOD SPECIMENOrdering Facility: [facility] Address: [address] [place], [place] [address] [address] Performed By: #### 5 7021-8 ####[facility] [id number] [address] [place] RBC (Bld) [#/Vol] 4.00 10*6/uL Normal 3.90-5.20 [facility] Comment on above: Order Comment: Speci men Type: BLOOD SPECIMENOrdering Facility: [facility] Address: [facility] [place] [address] Performed By: #### 5 7021-8 ####[facility] [id number] [place] [id number] [place] WBC (Bld) [#/Vol] 7.79 10*3/uL Normal 3.70-11.00 [facility] Comment on above: Order Comment: Speci men Type: BLOOD SPECIMENOrdering Facility: [facility] Address: [facility] [place] [place] [address] Performed By: #### 5 7021-8 ####[facility] [id number] [place] [id number] [facility] [place] ED NOTEon 06-20-2025 ED NOTE HNO ID: [id number] Author: KYE KEARNEY RN Service: ? Author [...] DATE: June 23, 2025 TIME: 9:14 AM [facility] ED PROV NOTEon 06-20-2025 ED PROV NOTE HNO ID: [id number] Author: TIERA JIMENEZ MD Service: Emergency Medicine [...] Clinical Impressions as of 06/20/25 0544 [facility] current use of anticoagulant MDM / Disposition / Plan Patient presents with the aforement (more content not included)... Normal [facility] PT panel Coag (PPP)on 2024 INR Coag (PPP) [Relative time] 2.0 {INR} High 0.9-1.3 [facility] Comment on above: Order Comment: Speci men Type: BLOOD SPECIMENOrdering Facility: [facility] Address: [facility] [address], [place] [id number] Result Comment: Mirna min K Antagonist (VKA) Therapeutic Range: INR 2 to 3 (Target INR of 2.5) Note: For patients treated with VKA drugs, such as warfarin, the [employer] 2012 Guideline recommends [...] 70: 252-289 Performed By: #### 3 4528-0 ####[facility] [id number] [place] [address] [facility] [place] PT Coag (PPP) [Time] 20.2 s High 9.7-13.0 [facility] Comment on above: Order Comment: Speci men Type: BLOOD SPECIMENOrdering Facility: [facility] Address: [facility] [address] Performed By: #### 3 4528-0 ####[facility] [id number] [place] [address] [facility] [place] CNNURSEon 06-19-2025 CNNURSE Nurse Visit (AGINTML W) HELEN LIEBERMAN ([id number]) 1935 F Date Time Provider Department 06/19/25 [...] [Z88.0] Essential hypertension, benign [I10] Order(s):INR (POC) [[id number]] Order #: [id number] chlorthalidone (HYGROTON) 25 mg tabletTake 1 tablet [...] Encounter Status:Closed by CORRINE BIRMINGHAM on 06/19/25 [facility] ED NOTEon 06-16-2025 ED NOTE HNO ID: [id number] Author: DANIEL SANCHEZ RN Service: ? Author Type: Registered Nurse Type: ED Notes Filed: 06/16/2025 05:05 Note Text: Discharge instructions d/w pt and SPOUSE at bedside. Stated understanding with no further questions for this nurse. Encouraged f/u with PCP and referring doctors given. Stated understanding. Prescription(S) were given X 0. Normal [facility] ED PROV NOTEon 06-16-2025 ED PROV NOTE HNO ID: [id number] Author: ARTURO REYES DO Service: Emergency Medicine [...] Not on file ARTURO REYES 06/16/25 0453 [facility] 06-05-2025 CNNURSE Nurse Visit (AGINTML W) HELEN LIEBERMAN ([id number]) 1935 F Date Time Provider Department 06/05/25 [...] last INR was 1.9 on discharge from [facility] on 06/01/2025. Pt is scheduled today to [...] Diagnosis:Paroxysmal atrial fibrillation (HCC) [I48.0] Order(s):INR (POC) [5585025] Order #: [id number] Prescriptions as of 06/05/2025 - azithromycin (ZITHROMAX Z-ZACH) 250 mg tablet Two Pills on day 1, One Pill daily on days 2-5 - azithromycin (ZITHROMAX Z-ZCAH) 250 mg tablet Two Pills on day [...] Encounter Status:Closed by CORRINE BIRMINGHAM on 06/05/25 [facility] CNOVon 06-05-2025 CNOV Office Visit (OTOLTW ) HELEN LIEBERMAN ([id number]) 1935 F Date Time Provider Department 06/05/25 [...] weeks to reassess. Nigel Irizarry PA-C HPI: Heeln Lieberman is a 89 year old female [...] observation. S (more content not included)... Normal [facility] 06-03-2025 SIGIFREDO Telephone (AGINTMLW) HELEN LIEBERMAN ([id number]) 1935 F Date Time Provider Department 06/03/25 [...] INR. Please advise ROBERT Mcgovern Charlene M, WIRE BENDER.PHOTOENGRAVING SUPERVISOR 06/03/2025 4:11 PM Signed She should follow [...] Fully Assessed Reason for Visit: Patient Question [4107] Prescriptions as of 06/03/2025 - azithromycin (ZITHROMAX [...] Status:Closed by CORRINE BIRMINGHAM on 06/03/25 Normal [facility] CBC W Auto Differential pane l (Bld)on 06-01-2025 Basophils (Bld) [#/Vol] 0.04 10*3/uL Normal <0.11 [facility] Comment on above: Order Comment: Speci men Type: BLOOD SPECIMEN [facility] Address: [address] [place] [address] Performed By: #### 5 8410-2 #### [facility] CLIA [id number] [address] [place] [address] [place] Basophils/100 WBC (Bld) 0.6 % Normal [facility] Comment on above: Order Comment: Speci men Type: BLOOD SPECIMEN [facility] Address: [address] [place] [address] Performed By: #### 5 8410-2 #### [facility] CLIA [id number] [address] [place] [address] [place] Differential cell count method Nom (Bld) Auto Normal [facility] Comment on above: Order Comment: Speci men Type: BLOOD SPECIMEN [facility] Address: [address] [place] [address] Performed By: #### 5 8410-2 #### [facility] CLIA [id number] [address] [place] [address] [place] Eosinophils (Bld) [#/Vol] 0.12 10*3/uL Normal <0.46 [facility] Comment on above: Order Comment: Speci men Type: BLOOD SPECIMEN [facility] Address: [address] [place] [address] Performed By: #### 5 8410-2 #### [facility] CLIA [id number] [address] [place] Eosinophils/100 WBC (Bld) 1.9 % Normal [facility] Comment on above: Order Comment: Speci men Type: BLOOD SPECIMEN [facility] Address: [address] [place] [address] Performed By: #### 5 8410-2 #### [facility] CLIA [id number] [address] [place] Erythrocyte distribution width (RBC) [Ratio] 14.5 % Normal 11.5-15.0 [facility] Comment on above: Order Comment: Speci men Type: BLOOD SPECIMEN [facility] Address: [address] [place] [address] Performed By: #### 5 8410-2 #### [facility] CLIA [id number] [address] [place] Hematocrit (Bld) [Volume fraction] 38.6 % Normal 36.0-46.0 [facility] Comment on above: Order Comment: Speci men Type: BLOOD SPECIMEN [facility] Address: [address] [place] [address] Performed By: #### 5 8410-2 #### [facility] CLIA [id number] [address] [place] Hemoglobin (Bld) [Mass/Vol] 12.5 g/dL Normal 11.5-15.5 [facility] Comment on above: Order Comment: Speci men Type: BLOOD SPECIMEN [facility] Address: [address] [place] [address] Performed By: #### 5 8410-2 #### [facility] CLIA [id number] [address] [place] [address] [place] Immature granulocytes (Bld) [#/Vol] 10*3/uL Normal <0.10 [facility] Comment on above: Order Comment: Speci men Type: BLOOD SPECIMEN [facility] Address: [address] [place] [address] Performed By: #### 5 8410-2 #### [facility] CLIA [id number] [address] [place] [address] [place] Immature granulocytes/100 WBC (Bld) 0.2 % Normal [facility] Comment on above: Order Comment: Speci men Type: BLOOD SPECIMEN [facility] Address: [address] [place] [address] Performed By: #### 5 8410-2 #### [facility] CLIA [id number] [address] [place] Lymphocytes (Bld) [#/Vol] 1.76 10*3/uL Normal 1.00-4.00 [facility] Comment on above: Order Comment: Speci men Type: BLOOD SPECIMEN [facility] Address: [address] [place] [address] Performed By: #### 5 8410-2 #### [facility] CLIA [id number] [address] Lymphocytes/100 WBC (Bld) 28.0 % Normal [facility] Comment on above: Order Comment: Speci men Type: BLOOD SPECIMEN [facility] Address: [address] [place] [address] Performed By: #### 5 8410-2 #### [facility] CLIA [id number] [address] [place] [address] [place] MCH (RBC) [Entitic mass] 31.0 pg Normal 26.0-34.0 [facility] Comment on above: Order Comment: Speci men Type: BLOOD SPECIMEN [facility] Address: [address] [place] [address] Performed By: #### 5 8410-2 #### [facility] CLIA [id number] [address] [place] MCHC (RBC) [Mass/Vol] 32.4 g/dL Normal 30.5-36.0 [facility] Comment on above: Order Comment: Speci men Type: BLOOD SPECIMEN [facility] Address: [address] [place] [address] Performed By: #### 5 8410-2 #### [facility] CLIA [id number] [address] [place] [address] [place] MCV (RBC) [Entitic vol] 95.8 fL Normal 80.0-100.0 [facility] Comment on above: Order Comment: Speci men Type: BLOOD SPECIMEN [facility] Facility: [facility] Address: [address] [place] [address] Performed By: #### 5 8410-2 #### [facility] CLIA [id number] [address] [place] [address] [place] Monocytes (Bld) [#/Vol] 0.72 10*3/uL Normal <0.87 [facility] Comment on above: Order Comment: Speci men Type: BLOOD SPECIMEN [facility]ing Facility: [facility] Address: [address] [place] [address] Performed By: #### 5 8410-2 #### [facility] CLIA [id number] [address] Monocytes/100 WBC (Bld) 11.4 % Normal [facility] Comment on above: Order Comment: Speci men Type: BLOOD SPECIMEN [facility]ing Facility: [facility] Address: [address] [place] [address] Performed By: #### 5 8410-2 #### [facility] CLIA [id number] [address] [place] [address] [place] Neutrophils (Bld) [#/Vol] 3.64 10*3/uL Normal 1.45-7.50 [facility] Comment on above: Order Comment: Speci men Type: BLOOD SPECIMEN [facility] Facility: [facility] Address: [address] [place] [address] Performed By: #### 5 8410-2 #### [facility] CLIA [id number] [address] [place] [address] [place] Neutrophils/100 WBC (Bld) 57.9 % Normal [facility] Comment on above: Order Comment: Speci men Type: BLOOD SPECIMEN [facility] Facility: [facility] Address: [address] [place] [address] Performed By: #### 5 8410-2 #### [facility] CLIA [id number] [address] [place] [address] [place] Nucleated RBC (Bld) [#/Vol] 10*3/uL Normal <0.01 [facility] Comment on above: Order Comment: Speci men Type: BLOOD SPECIMEN [facility] Facility[facility] Address: [address] [place] [address] Performed By: #### 5 8410-2 #### [facility] CLIA [id number] [address] [place] [address] [place] Nucleated RBC/100 WBC (Bld) [Ratio] 0.0 /100 WBC Normal [facility] Comment on above: Order Comment: Speci men Type: BLOOD SPECIMEN [facility] Facility: [facility] Address: [address] [place] [address] Performed By: #### 5 8410-2 #### [facility] CLIA [id number] [address] [place] [address] [place] Platelet mean volume (Bld) [Entitic vol] 8.6 fL Low 9.0-12.7 [facility] Comment on above: Order Comment: Speci men Type: BLOOD SPECIMEN [facility] Facility[facility] Address: [address] [place] [address] Performed By: #### 5 8410-2 #### [facility] CLIA [id number] [address] [place] [address] [place] Platelets (Bld) [#/Vol] 234 10*3/uL Normal 150-400 [facility] Comment on above: Order Comment: Speci men Type: BLOOD SPECIMEN [facility]ing Facility: [facility] Address: [address] [place] [address] Performed By: #### 5 8410-2 #### [facility] CLIA [id number] [address] [facility] RBC (Bld) [#/Vol] 4.03 10*6/uL Normal 3.90-5.20 [facility] Comment on above: Order Comment: Speci men Type: BLOOD SPECIMEN [facility] Facility: [facility] Address: [address] [place] [address] Performed By: #### 5 8410-2 #### [facility] CLIA [id number] [address] WBC (Bld) [#/Vol] 6.29 10*3/uL Normal 3.70-11.00 [facility] Comment on above: Order Comment: Speci men Type: BLOOD SPECIMEN [facility] Facility[facility] Address: [address] [place] [address] Performed By: #### 5 8410-2 #### [facility] CLIA [id number] [address] ED NOTEon 06-01-2025 ED NOTE HNO ID: [id number] Author: BLACK WESTFALL RN Service: Nursing Author Type: Registered Nurse Type: ED Notes Filed: 06/01/2025 23:57 Note Text: Discharge instructions gone over with pt and family, voiced understanding and pt taken out via w/c to family's car. [facility] ED PROV NOTEon 06-01-2025 ED PROV NOTE HNO ID: [id number] Author: REESE CARUSO MD Service: ? Author Type: Physician Type: ED Provider Notes Filed: 06/01/2025 23:41 Note Text: ED Provider Note Patient Name: Helen Lieberman : 1935 SERVICE DATE: 06/01/25 History Patient presents with: Epistaxis: Patient arrived via [facility] from home where she started having a nosebleed 2100, is on coumadin. Ems placed nose clamp, is not bleeding at this time. History provided by: Patient contact lens inspector used: No Epistaxis Location: L nare Severity: [...] 4.00 k/uL Monocytes % 11.4 % Abs Bland 0.72 <0.87 k/uL Eosinophils % 1.9 % Abs Eosin 0.12 <0.46 k/uL Basophils % 0.6 % Abs Baso 0.04 <0.11 k/uL Immature Granulocytes % 0.2 % Abs Immature Gran <0 (more content not included)... Normal [facility] PT panel Coag (PPP)on 2024 INR Coag (PPP) [Relative time] 1.9 {INR} High 0.9-1.3 [facility] Comment on above: Order Comment: Marti hankins Type: BLOOD SPECIMEN [facility] Facility: [facility] Address: [address] [place] [id number] Result Comment: Mirna min K Antagonist (VKA) Therapeutic Range: INR 2 to 3 (Target INR of 2.5) Note: For patients treated with VKA drugs, such as warfarin, the [employer] 2012 Guideline recommends [...] 252-289 Performed By: #### 5 8410-2 #### [facility] CLIA [id number] [address] [place] [address] [place] PT Coag (PPP) [Time] 19.5 s High 9.7-13.0 [facility] Comment on above: Order Comment: Marti hankins Type: BLOOD SPECIMEN [facility] Facility[facility] Address: [address] [place] [address] Performed By: #### 5 8410-2 #### [facility] CLIA [id number] [address] [place] CNNURSEon 05-30-2025 CNNURSE Nurse Visit (AGINTML W) HELEN LIEBERMAN ([id number]) 1935 F Date Time Provider Department 05/30/25 [...] fibrillation, unspecified type (HCC) [I48.91] Order(s):INR (POC) [[id number]] Order #: [id number] Prescriptions as of 05/30/2025 - warfarin (COUMADIN) [...] Status:Closed by NICOLE FOREMAN on 05/30/25 Normal [facility] INR (POC)on 05-30-2025 INR Coag (PPP) [Relative time] 3.4 {INR} High 0.8 - 1.2 [facility] Internal Quality Check Acceptable [facility] Interpretation and review of laboratory results Abnormal [facility] Location:[facility], [address] [place] [address], [address] [facility] POINT OF CARE [facility] CNNURSEon 05-22-2025 CNNURSE Nurse Visit (AGINTML W) HELEN LIEBERMAN ([id number]) 1935 F Date Time Provider Department 05/22/25 [...] Diagnosis:Paroxysmal atrial fibrillation (HCC) [I48.0] Order(s):INR (POC) [[id number]] Order #: [id number] Prescriptions as of 05/22/2025 - warfarin (COUMADIN) [...] Encounter Status:Closed by CHARISSE LANGE on 05/22/25 [facility] ALLIED HEALTHon 04-27-2025 ALLIED HEALTH HNO ID: [id number] Author: VANCE MAYORGA Tech Service: Radiology Author Type: Differential Specialist Type: Allied Health Filed: 04/27/2025 18:58 Note [...] PATIENT PRESENTS WITH AN IMPLANTABLE OR ATTACHED DRYWALL SPRAYER: No RADIOLOGY DEPARTMENT: CT; Exam(s) Completed: Brain PERIPHERAL IV DATA: Inpatient: see LDA documentation SIGNED BY: Wanda Lawson April 27, 2025 6:58 PM [facility] CT BRAIN WO IVCONon 04-27-[address] BRAIN WO IVCON * * *Final Report* * * DATE OF EXAM: Apr 27 2025 6:59PM [facility] 0504 - CT BRAIN WO IVCON / [...] IMPRESSION: No evidence of acute intracranial process. Stripper Soft Plastic: ANSHU Transcribe Date/Time: Apr 27 2025 8:48P Dictated by : ALICIA BUI MD This examination was interpreted and the report reviewed and electronically signed by: ALICIA BUI MD on Apr 27 2025 9:02PM EST [id number] [facility] ED NOTEon 04-27-2025 ED NOTE HNO ID: [id number] Author: KYE KEARNEY RN Service: ? Author Type: Registered Nurse Type: ED Notes Filed: 04/27/2025 21:41 Note Text: Discharge instructions reviewed with patient via teachback. Pt verbalizes understanding. Pt awake and alert, respirations regular and unlabored. No further questions for this RN. [facility] ED NOTE HNO ID: [id number] Author: KYE KEARNEY, TASNEEM Service: ? Author Type: Registered Nurse Type: ED Notes Filed: 04/27/2025 21:27 Note Text: MD notified of patient's BP. Night time meds to be ordered for patient. [facility] ED NOTE HNO ID: [id number] Author: OTIS RÍOS RN Service: ? Author Type: Registered Nurse Type: ED Notes Filed: 04/27/2025 17:14 Note Text: Bed: ED-12 Expected date: Expected time: Means of arrival: Comments: 88 R shoulder dislocation [facility] ED PROV NOTEon 04-27-2025 ED PROV NOTE HNO ID: [id number] Author: ARTURO REYES DO Service: Emergency Medicine [...] the clavic (more content not included)... 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 Stripper Soft Plastic: ANSHU Transcribe Date/Time: Apr 27 2025 7:40P Dictated by : ALICIA BUI MD This examination was interpreted and the report reviewed and electronically signed by: ALICIA BUI MD on Apr 27 2025 7:42PM EST [id number] Nurse Visit (AGINTML W) HELEN LIEBERMAN ([id number]) 1935 F Date Time Provider Department 04/17/25 [...] in one month. LEIGH Portillo Charlene M, WIRE BENDER.PHOTOENGRAVING SUPERVISOR 04/17/2025 12:48 PM Signed Continue current dose reheck one month Referring Provider: TANYA LOZANO [[id number]] Allergies As of Date: 04/17/2025 Noted Allergy Reaction AMLODIPINE 08/11/2024 14 - Other: See Comments Comments: Very intense leg cramps PENICILLINS 07/24/2021 16 - Unknown SULFA (SULFONAMIDE ANTIBIOTICS) 07/24/2021 16 - Unknown TETRACYCLINES 07/24/2021 16 - Unknown Date Reviewed: 04/01/2025 Reviewed by: Otis Rutherford RN - Fully Assessed Reason for Visit: Nurse Visit [792] Primary Visit Diagnosis:Paroxysmal atrial fibrillation (HCC) [I48.0] Order(s):INR (POC) [[id number]] Order #: [id number] Prescriptions as of 04/17/2025 - warfarin (COUMADIN) [...] Encounter Status:Closed by CARLOS GONZÁLES on 04/17/25 [facility] ALLIED HEALTHon 04-01-2025 ALLIED HEALTH HNO ID: [id number] Author: MAR GOVEA RT(R) Service: Radiology Author Type: Differential Specialist Type: Allied Health Filed: 04/01/2025 13:56 Note [...] PATIENT PRESENTS WITH AN IMPLANTABLE OR ATTACHED DRYWALL SPRAYER: No RADIOLOGY DEPARTMENT: CT; Exam(s) Completed: Brain and Spine PERIPHERAL IV DATA: Not applicable SIGNED BY: RT Norberto(R) April 01, 2025 1:56 PM [facility] CT BRAIN WO IVCONon 04-01-[address] BRAIN WO IVCON * * *Final Report* * * DATE OF EXAM: Apr 01 2025 2:01PM [facility] 0504 - CT BRAIN WO IVCON / [...] tissue swelling over the right frontal region. Stripper Soft Plastic: PSCB Transcribe Date/Time: Apr 01 2025 2:40P Dictated by : LANI MOORE MD This examination was interpreted and the report reviewed and electronically signed by: LANI MOORE MD on Apr 01 2025 2:46PM EST [id number] Normal [facility] CT CERVICAL SPINE WO IVCONon 04-01-2025 CT CERVICAL SPINE WO IVCON * * *Final Report* * * DATE OF EXAM: Apr 01 2025 2:01PM [facility] 0505 - CT CERVICAL SPINE WO IVCON [...] Counting reference: Craniocervical junction. Anatomic Variants: None. Health Analyst (topogram) images: No additional findings. Alignment: Alignment [...] vertebrae with counting from the craniocervical junction. Stripper Soft Plastic: PSCB Transcribe Date/Time: Apr 01 2025 2:46P Dictated by : LANI MOORE MD This examination was interpreted and the report reviewed and electronically signed by: LANI MOORE MD on Apr 01 2025 2:51PM EST [id number] [facility] ED NOTEon 04-01-2025 ED NOTE HNO ID: [id number] Author: OTIS RUTHERFORD, TASNEEM Service: Emergency Medicine Author Type: Registered Nurse Type: ED Notes Filed: 04/01/2025 15:32 Note Text: Pt ambulated at this time with minimal assistance. Normal [facility] ED NOTE HNO ID: [id number] Author: ELEANOR KENDRICK, TASNEEM Service: ? Author Type: Registered Nurse Type: ED Notes Filed: 04/01/2025 14:00 Note Text: Bed: [facility] Expected date: Expected time: Means of arrival: Comments: trauma Normal [facility] ED NOTE HNO ID: [id number] Author: YAN VASQUEZ, TASNEEM Service: Emergency Medicine Author Type: Registered Nurse Type: ED Notes Filed: 04/01/2025 13:45 Note Text: Awaiting CT availability. Normal [facility] ED NOTE HNO ID: [id number] Author: RACHEL WADE Medic Service: ? Author Type: Combine Inspector and Differential Specialist Type: ED Notes Filed: 04/01/2025 13:26 Note Text: [facility] Expected date: 04/01/25 Expected time: 1:09 PM Means of arrival: [employer]/[facility] Comments: [place] T3 fall Normal [facility] ED PROV NOTEon 04-01-2025 ED PROV NOTE HNO ID: [id number] Author: DIANA NOGUEIRA MD Service: Emergency Medicine [...] No epistaxis or septal hematoma. Mouth/Throat: Lips: [place]. Mouth: Mucous membranes are moist. Eyes: Pupils: [...] soft. Tender (more content not included)... Normal [facility] PT panel Coag (PPP)on 2024 INR Coag (PPP) [Relative time] 3.3 {INR} High 0.9-1.3 [facility] Comment on above: Order Comment: Speci men Type: BLOOD SPECIMEN Ordering Facility: [facility] Address: [address] [place] [address], [place] [address] Result Comment: Mirna min K Antagonist (VKA) Therapeutic Range: INR 2 to 3 (Target INR of 2.5) Note: For patients treated with VKA drugs, such as warfarin, the [employer] 2012 Guideline recommends [...] Chest 2012, 141:7S-47S Jayce RA et al. [facility] 2017, 70: 252-289 Performed By: #### 3 040-3, 37912-7 #### [facility] CLIA [id number] [address] [id number] [facility] [place] PT Coag (PPP) [Time] 32.9 s High 9.7-13.0 [facility] Comment on above: Order Comment: Speci men Type: BLOOD SPECIMEN Ordering Facility: [facility] Address: [address] [place] [address] Performed By: #### 3 040-3, 87615-7 #### [facility] CLIA [id number] [address] [place] [address] [facility] XR HIP 3V PELV+ AP/LAT LTon 04-01-2025 [...] IMPRESSION:Decreased bone density without acute bony abnormality. Stripper Soft Plastic: ANSHU Transcribe Date/Time: Apr 01 2025 2:49P Dictated by : MACRINA SCHROEDER MD This examination was interpreted and the report reviewed and electronically signed by: MACRINA SCHROEDER MD on Apr 01 2025 2:51PM EST [id number] Normal [facility] CNNURSEon 03-18-2025 CNNURSE Nurse Visit (AGINTML W) HELEN LIEBERMAN ([id number]) 1935 F Date Time Provider Department 03/18/25 [...] Willow Wilson MA Referring Provider: TANYA LOZANO [[id number]] Allergies As of Date: 03/18/2025 Noted Allergy Reaction AMLODIPINE 08/11/2024 14 - Other: See Comments Comments: Very intense leg cramps PENICILLINS 07/24/2021 16 - Unknown SULFA (SULFONAMIDE ANTIBIOTICS) 07/24/2021 16 - Unknown TETRACYCLINES 07/24/2021 16 - Unknown Date Reviewed: 01/03/2025 Reviewed by: Tanya Lozano APRN.PHOTOENGRAVING SUPERVISOR - Fully Assessed Reason for Visit: Coumadin/INR [1207] Primary Visit Diagnosis:Paroxysmal atrial fibrillation (HCC) [I48.0] Order(s):INR (POC) [2169100] Order #: [id number] INR (POC) [2852649] Order #: [id number] #:[id number] Prescriptions as of 03/18/2025 - warfarin [...] Status:Closed by TANYA LOZANO on 03/18/25 Normal [facility] INR (POC)on 03-18-2025 INR Coag (PPP) [Relative time] 2.8 {INR} High 0.8 - 1.2 [facility] Internal Quality Check Acceptable Cl [facility] Interpretation and review of laboratory results Abnormal [facility] Location:[facility], [address] [place] [address], [address] [place] [address] POINT OF CARE [facility] CNN[facility]on 03-04-20[facility] (AGINTML W) HELEN LIEBERMAN ([id number]) 1935 F Date Time Provider Department 03/04/25 [...] was 3.2. Per conversation with Tanya Lozano PHOTOENGRAVING SUPERVISOR patient informed to take coumadin 2 mg [...] Date Reviewed: 01/03/2025 Reviewed by: Tanya Lozano APRN.PHOTOENGRAVING SUPERVISOR - Fully Assessed Reason for Visit: Coumadin/INR [1207] Primary Visit Diagnosis:Paroxysmal atrial fibrillation (HCC) [I48.0] Order(s):INR (POC) [5270304] Order #: [id number] Prescriptions as of 03/04/2025 - levothyroxine (SYNTHROID) [...] Encounter Status:Closed by CHARISSE LANGE on 03/04/25 [facility] ([facility] W) HELEN LIEBERMAN ([id number]) 1935 F Date Time Provider Department 02/04/25 [...] Charisse Lange MA Referring Provider: TANYA LOZANO [[id number]] Allergies As of Date: 02/04/2025 Noted Allergy Reaction AMLODIPINE 08/11/2024 14 - Other: See Comments Comments: Very intense leg cramps PENICILLINS 07/24/2021 16 - Unknown SULFA (SULFONAMIDE ANTIBIOTICS) 07/24/2021 16 - Unknown TETRACYCLINES 07/24/2021 16 - Unknown Date Reviewed: 01/03/2025 Reviewed by: Tanya Lozano APRN.PHOTOENGRAVING SUPERVISOR - Fully Assessed Reason for Visit: Coumadin/INR [1207] Primary Visit Diagnosis:Paroxysmal atrial fibrillation (HCC) [I48.0] Order(s):INR (POC) [9160961] Order #: [id number] INR (POC) [9576992] Order #: [id number]. #:[id number] Prescriptions as of 02/04/2025 - losartan [...] Status:Closed by CHARISSE LANGE on 02/04/25 Normal [facility] INR (POC)on 02-04-2025 INR Coag (PPP) [Relative time] 2.4 {INR} High 0.8 - 1.2 [facility] Internal Quality Check Acceptable Cl [facility] Interpretation and review of laboratory results Abnormal [facility] Location:[facility], [address] [place] [address], [address] [place] [address] POINT OF CARE [facility] CNOVon 01-03-2025 CNOV Office Visit (AGINTM LW) HELEN LIEBERMAN ([id number]) 1935 F Date Time Provider Department 01/03/25 7:40 AM TANYA LOZANOMLW During your visit today, we recorded the following information about you: Pulse Respiration Blood pressure Weight 75/minute 18/minute 120/50 56.1 kg Height 1.575 m Tanya Lozano, BRAULIO[facility] 01/03/2025 8:43 AM Signed SUBJECTIVE: Helen Lieberman [...] feels woobly. Denies changes in vision or ABRRAZA. I reviewed patients past medical, surgical, social, [...] 180/72 10/04/2024 146/60 Hyponatremia: She is seeing pharmacy clinical specialist Dr Ruiz for management for this. She was last seen 12/06/24. Afib: reports being dx 16 yrs ago. She reports she never followed with platform consultant. She is taking coreg twice daily and [...] placement on 08/07/21 for biliary obstruction at [facility]. Reports she has had 3 ERCPs. First [...] Some elements (more content not included)... Normal [facility] INR (POC)on 01-03-2025 INR Coag (PPP) [Relative time] 2.7 {INR} High 0.8 - 1.2 [facility] Internal Quality Check Acceptable Cl [facility] Interpretation and review of laboratory results Abnormal [facility] Location:[facility], [address] [place] [address], [address] [place] [address] POINT OF CARE [facility] CNOVon 12-19-2024 CNOV Office Visit (AGINTM LW) HELEN LIEBERMAN ([id number]) 1935 F Date Time Provider Department 12/19/24 10:40 AM TANYA LOZANOMLSanjeev During your visit today, we recorded the following information about you: Pulse Respiration Blood pressure Weight 52/minute 18/minute 168/70 56 kg Height 1.575 m Tanya Lozano APRN.PHOTOENGRAVING SUPERVISOR 12/19/2024 12:37 PM Signed This note was [...] - [place] (more content not included)... Normal [facility] 25(OH)D3 SerPl-mCncon 2024 25-hydroxyvitamin D3 [Mass/Vol] 51.6 ng/mL Normal >=30.0 [facility] Comment on above: Order Comment: Speci men Type: BLOOD SPECIMEN [facility] Facility: [facility] Address: [address] [place] [address] Result Comment: Clas sification of 25 [place] Vitamin D status: Deficiency: <= 20.0 ng/ml. Insufficiency: 21.0-29.0 ng/ml. Sufficiency: >= 30.0 ng/ml. Performed By: #### 1 989-3 #### [facility] CLIA [id number] [address] [place] [address] [place] Lipid 1996 panelon Cholesterol [Mass/Vol] 237 mg/dL High <200 [facility] Comment on above: Order Comment: Marti hankins Type: BLOOD SPECIMEN [facility]ing Facility[facility] Address: [address] [place] [address] Result Comment: <200 mg/dL, Desirable 200-239 mg/dL, Borderline high >239 mg/dL, High Performed By: #### 2 4331-1, 3016-3 #### [facility] CLIA [id number] [address] [place] [address] [place] Cholesterol in HDL [Mass/Vol] 43 mg/dL Normal >39 [facility] Comment on above: Order Comment: Marti hankins Type: BLOOD SPECIMEN [facility] Facility[facility] Address: [address] [place] [address] Result Comment: 40-5 9 mg/dL, Acceptable >59 mg/dL, High: Negative risk factor for coronary heart disease <40 mg/dL, Low: Positive risk factor for coronary heart disease Performed By: #### 2 4331-1, 3016-3 #### [facility] CLIA [id number] [address] [place] [address] [place] Cholesterol in LDL [Mass/Vol] 170 mg/dL High <100 [facility] Comment on above: Order Comment: Marti hankins Type: BLOOD SPECIMEN [facility] Facility[facility] Address: [address] [place] [address] Result Comment: <100 mg/dL, Optimal 100-129 mg/dL, Near optimal/above optimal 130-159 mg/dL, Borderline high 160-189 mg/dL, High >189 mg/dL, Very high Secondary prevention optimal LDL Cholesterol levels are recommended to be < 70 mg/dL Performed By: #### 2 4331-1, 3016-3 #### [facility] CLIA [id number] [address] [place] [address] [place] Cholesterol in LDL/Cholesterol in HDL [Mass ratio] 3.95 {ratio} High <2.54 [facility] Comment on above: Order Comment: Marti cr Type: BLOOD SPECIMEN [facility] Facility[facility] Address: [address] [place] [address] Result Comment: Refe иринаce: 1. National Cholesterol Education Program ATP III Guideline At-A-Glance Quick Desk Reference: National Heart, Lung, and Blood [place]. National Institutes of Health. 2001: NIH Publication No. 01-3305. 2. An International Atherosclerosis Society position paper: global recommendations for the management of dyslipidemia: executive summary, Atherosclerosis. 2014: 232(2):410-413. Performed By: #### 2 4331-1, 6-3 #### [facility] CLIA [id number] [address] [place] [address] [place] Cholesterol in VLDL [Mass/Vol] 24 mg/dL Normal <30 [facility] Comment on above: Order Comment: Marti hankins Type: BLOOD SPECIMEN [facility]ing Facility[facility] Address: [address] [place] [address] Performed By: #### 2 4331-1, 3015-3 #### [facility] CLIA [id number] [address] [place] [address] [place] Cholesterol non HDL [Mass/Vol] 194 mg/dL High <130 [facility] Comment on above: Order Comment: Marti hankins Type: BLOOD SPECIMEN [facility]ing Facility[facility] Address: [address] [place] [address] Result Comment: <130 mg/dL, Optimal 130-159 mg/dL, Near optimal/above optimal 160-189 mg/dL, Borderline high 190-219 mg/dL, High >219 mg/dL, Very high Secondary prevention optimal non HDL Cholesterol levels are recommended to be <100 mg/dL Performed By: #### 2 4331-1, 6-3 #### [facility] CLIA [id number] [address] [place] [address] [facility] Cholesterol.total/Jhoana sterol in HDL [Mass ratio] 5.51 {ratio} High <5.10 [facility] Comment on above: Order Comment: Marti hankins Type: BLOOD SPECIMEN [facility] Facility: [facility] Address: [address] [place] [address] Performed By: #### 2 4331-1, 3015-3 #### [facility] CLIA [id number] [address] [place] [address] [facility] FASTING TIME 12 hrs Normal [facility] Comment on above: Order Comment: Marti hankins Type: BLOOD SPECIMEN [facility] Facility: [facility] Address: [address] [place] [address] Performed By: #### 2 4331-1, 3016-3 #### [facility] CLIA [id number] [address] [place] [address] [facility] Triglyceride [Mass/Vol] 120 mg/dL Normal <150 [facility] Comment on above: Order Comment: Marti hankins Type: BLOOD SPECIMEN [facility] Facility: [facility] Address: [address] [place] [address] Result Comment: <150 mg/dL, Normal 150-199 mg/dL, Borderline high 200-499 mg/dL, High >499 mg/dL, Very high Performed By: #### 2 4331-1, 3016-3 #### [facility] CLIA [id number] [address] [place] [id number] [facility] PT panel Coag (PPP)on 2024 INR Coag (PPP) [Relative time] 2.4 {INR} High 0.9-1.3 [facility] Comment on above: Order Comment: Marti hankins Type: BLOOD SPECIMEN [facility] Facility: [facility] Address: [address] [place] [address] Result Comment: Mirna min K Antagonist (VKA) Therapeutic Range: INR 2 to 3 (Target INR of 2.5) Note: For patients treated with VKA drugs, such as warfarin, the [employer]icians 2012 Guideline recommends [...] Chest 2012, 141:7S-47S Jayce RA, et al. [facility] 2017, 70: 252-289 Performed By: #### 3 4528-0 #### [facility] CLIA [id number] [address] [place] [address] [facility] PT Coag (PPP) [Time] 24.0 s High <13.1 [facility] Comment on above: Order Comment: Marti hankins Type: BLOOD SPECIMEN [facility] Facility: [facility] Address: [address] [place] [address] Performed By: #### 3 4528-0 #### [facility] CLIA [id number] [address] [place], [place] [address] [place] [address] T4 Free SerPl-mCncon 025 Free T4 [Mass/Vol] 1.1 ng/dL Normal 0.9-1.7 [facility] Comment on above: Order Comment: Marti hankins Type: BLOOD SPECIMEN Ordering Facility: [facility] Address: [address] [place] [address] Performed By: #### 3 040-3, 16542-1 #### [facility] CLIA [id number] [address] [place] [address] TSH SerPl-aCncon 12-15-2024 TSH Qn 2.290 m[IU]/L Normal 0.270-4.200 [facility] Comment on above: Order Comment: Marti hankins Type: BLOOD SPECIMEN [facility] Facility: [facility] Address: [address] [place] [address] Performed By: #### 2 4331-1, 3016-3 #### [facility] CLIA [id number] [address] CNOVon 12-03-2024 CNOV Office Visit (AGINTM ) HELEN LIEBERMAN ([id number]) 1935 F Date Time Provider Department 12/03/24 8:00 AM TANYA LOZANO AGINTMLW During your visit today, we recorded the following information about you: Temperature Pulse Respiration Blood pressure 97.5 degrees 64/minute 16/minute 180/72 Weight Height 55.3 kg 1.575 m Tanya Lozano, WIRE BENDER.PHOTOENGRAVING SUPERVISOR 12/03/2024 9:08 PM Signed This note was created using Kiwiriter. Subjective Helen Lieberman is a 89 year [...] 2) Physica (more content not included)... Normal [facility] CNPTali 11-30-2024 SIGIFREDO Telephone (AGWealthfrontLE) HELEN LIEBERMAN ([id number]) 1935 F Date Time Provider Department 11/30/24 TANYA LOZANO During your visit today, we recorded the following information about you: Carlos Gonzáles MA 11/30/2024 10:12 AM Signed Patient of . Left message on stating she saw Dr. Casillas today and her blood pressure was 209/89. She was advised to contact CN office today . Please advise. Pt. Has apt. 01/03/2025 with Dee Bailey APRN.PHOTOENGRAVING SUPERVISOR 11/30/2024 12:35 PM Signed She needs to [...] Status:Closed by TANYA LOZANO on 12/02/24 Normal [facility] CBC panel Auto (Bld)on 11-29 Erythrocyte distribution width (RBC) [Ratio] 12.2 % Normal 11.5-15.0 [facility] Comment on above: Order Comment: Marti hankins Type: BLOOD SPECIMEN [facility] Address: [address] [place] [address] Performed By: #### 3 -, 58000-0 #### [employer] [facility] CLIA [id number] [address] [place] [address] [place] Hematocrit (Bld) [Volume fraction] 41.8 % Normal 36.0-46.0 [facility] Comment on above: Order Comment: Marti hankins Type: BLOOD SPECIMEN Ordering Facility: [facility] Address: [address] [place] [address] Performed By: #### 3 -, 26522-1 #### [facility] CLIA [id number] [address] [place] [address] [place] Hemoglobin (Bld) [Mass/Vol] 13.4 g/dL Normal 11.5-15.5 [facility] Comment on above: Order Comment: Marti hankins Type: BLOOD SPECIMEN [facility] Address: [address] [place] [address] Performed By: #### 3 040-3, 78002-4 #### [employer] [facility] CLIA [id number] [address] [place] [address] [facility] MCH (RBC) [Entitic mass] 31.2 pg Normal 26.0-34.0 [facility] Comment on above: Order Comment: Marti hankins Type: BLOOD SPECIMEN [facility]ing [facility] Address: [address] [place] [address] Performed By: #### 3 040-3, 77460-1 #### [facility] CLIA [id number] [address] [place] [address] [facility] MCHC (RBC) [Mass/Vol] 32.1 g/dL Normal 30.5-36.0 [facility] Comment on above: Order Comment: Marti hankins Type: BLOOD SPECIMEN Ordering Facility: [facility] Address: [address] [place] [address] Performed By: #### 3 040-3, 30964-4 #### [facility] CLIA [id number] [address] MCV (RBC) [Entitic vol] 97.4 fL Normal 80.0-100.0 [facility] Comment on above: Order Comment: Marti hankins Type: BLOOD SPECIMEN [facility]ing [facility] Address: [address] [place] [address] Performed By: #### 3 040-3, 56469-4 #### [facility] CLIA [id number] [address] [place] Platelet mean volume (Bld) [Entitic vol] 9.2 fL Normal 9.0-12.7 [facility] Comment on above: Order Comment: Marti hankins Type: BLOOD SPECIMEN [facility]ing [facility] Address: [address] [place] [address] Performed By: #### 3 040-3, 76401-8 #### [facility] CLIA [id number] [address] [place] [address] [facility] Platelets (Bld) [#/Vol] 340 10*3/uL Normal 150-400 [facility] Comment on above: Order Comment: Speci men Type: BLOOD SPECIMEN Ordering Facility: [facility] Address: [address] [place] [address] Performed By: #### 3 040-3, 22149-0 #### [facility] CLIA [id number] [address] [place] [address] [place] RBC (Bld) [#/Vol] 4.29 10*6/uL Normal 3.90-5.20 [facility] Comment on above: Order Comment: Speci men Type: BLOOD SPECIMEN Ordering Facility: [facility] Address: [address] [place] [address] Performed By: #### 3 040-3, 85443-5 #### [facility] CLIA [id number] [address] [place] [address] [place] WBC (Bld) [#/Vol] 5.13 10*3/uL Normal 3.70-11.00 [facility] Comment on above: Order Comment: Speci men Type: BLOOD SPECIMEN Ordering Facility: [facility] Address: [address] [place] [address] Performed By: #### 3 040-3, 09639-3 #### [facility] CLIA [id number] [address] [place] [address] [facility] Comprehensive metabolic 2000 panelon 11-29-2024 Albumin [Mass/Vol] 4.0 g/dL Normal 3.9-4.9 [facility] Comment on above: Order Comment: Speci men Type: BLOOD SPECIMEN [facility]ing Facility: [facility] Address: [address] [place] [address] Performed By: #### 3 040-3, 70125-5 #### [facility] CLIA [id number] [address] [place] [address] [place] ALP [Catalytic activity/Vol] 77 U/L Normal 34-123 [facility] Comment on above: Order Comment: Speci men Type: BLOOD SPECIMEN [facility] Address: [address] [place] [address] Performed By: #### 3 3, #### [facility] CLIA [id number] [address] [place] [address] [place] ALT With P-5'-P [Catalytic activity/Vol] 10 U/L Normal 7-38 [facility] Comment on above: Order Comment: Speci men Type: BLOOD SPECIMEN Ordering Facility: [facility] Address: [address] [place] [address] Performed By: #### 3 -, #### [facility] CLIA [id number] [address] [place] [address] [place] Anion gap [Moles/Vol] 8 mmol/L Normal 8-15 [facility] Comment on above: Order Comment: Marti [facility] Type: BLOOD SPECIMEN [facility]ing Facility[facility] Address: [address] [place] [address] Performed By: #### 3 , #### [facility] CLIA [id number] [address] [place] [address] [place] AST With P-5'-P [Catalytic activity/Vol] 17 U/L Normal 13-35 [facility] Comment on above: Order Comment: Speci [facility] Type: BLOOD SPECIMEN [facility]ing [facility] Address: [address] [place] [address] Performed By: #### 3 , #### [facility] CLIA [id number] [address] [place] [address] [place] Bilirubin [Mass/Vol] 0.7 mg/dL Normal 0.2-1.3 [facility] Comment on above: Order Comment: [facility] Type: BLOOD SPECIMEN [facility]ing Facility[facility] Address: [address] [place] [address] Performed By: #### 3 3, 61600-0 #### [facility] CLIA [id number] [address] [place] [address] [place] Calcium [Mass/Vol] 9.6 mg/dL Normal 8.5-10.2 [facility] Comment on above: Order Comment: Marti hankins Type: BLOOD SPECIMEN Ordering Facility: [facility] Address: [address] [place] [address] Performed By: #### 3 040-3, #### [facility] CLIA [id number] [address] [place] [address] [place] Chloride [Moles/Vol] 98 mmol/L Normal 98-107 [facility] Comment on above: Order Comment: Marti men Type: BLOOD SPECIMEN Ordering Facility: [facility] Address: [address] [place] [address] Performed By: #### 3 040-3, #### [facility] CLIA [id number] [address] [place] [address] [place] CO2 [Moles/Vol] 28 mmol/L Normal 22-30 [facility] Comment on above: Order Comment: Marti men Type: BLOOD SPECIMEN [facility] Address: [address] [place] [address] Performed By: #### 3 040-3, #### [facility] CLIA [id number] [address] [place] [address] [place] Creatinine [Mass/Vol] 1.01 mg/dL High 0.58-0.96 [facility] Comment on above: Order Comment: Shanikai men Type: BLOOD SPECIMEN Ordering Facility[facility] Address: [address] [place] [address] Performed By: #### 3 040-3, 37742-1 #### [facility] CLIA [id number] [address] [place] [address] [facility] Creatinine and Glomerular filtration rate.predicted panel (S/P/Bld) 54 mL/min/1.73m??? Low >=60 [facility] Comment on above: Order Comment: Marti men Type: BLOOD SPECIMEN Ordering Facility: [facility] Address: [address] [place] [address] Result Comment: Dolores mated Glomerular Filtration Rate [...] actual GFR. Performed By: #### 3 040-3, 93847-5 #### [facility] CLIA [id number] [address] [place] [address] [place] Glucose [Mass/Vol] 113 mg/dL High 74-99 [facility] Comment on above: Order Comment: Marti hankins Type: BLOOD SPECIMEN [facility] Address: [address] [place] [address] Result Comment: The [place] Diabetes Association (ADA) provides guidance for cutoff [...] Standards of Medical Care in Diabetes 2016, [place] Diabetes Association. Diabetes Care. 2016.39(Suppl 1). Performed By: #### 3 040-3, 45596-1 #### [facility] CLIA [id number] [address] [place] [address] [place] Potassium [Moles/Vol] 4.6 mmol/L Normal 3.7-5.1 [facility] Comment on above: Order Comment: Marti hankins Type: BLOOD SPECIMEN Ordering Facility[facility] Address: [address] [place] [address] Performed By: #### 3 040-3, 62577-2 #### [facility] CLIA [id number] [address] [place] [address] [place] Protein [Mass/Vol] 7.4 g/dL Normal 6.3-8.0 [facility] Comment on above: Order Comment: Speci men Type: BLOOD SPECIMEN Ordering Facility: [facility] Address: [address] [place] [address] Performed By: #### 3 040-3, 00987-5 #### [facility] CLIA [id number] [address] [place] [address] [place] Sodium [Moles/Vol] 134 mmol/L Low 136-144 [facility] Comment on above: Order Comment: Speci men Type: BLOOD SPECIMEN Ordering Facility[facility] Address: [address] [place] [address] Performed By: #### 3 040-3, 93544-8 #### [facility] CLIA [id number] [address] [place] [address] [place] Urea nitrogen [Mass/Vol] 13 mg/dL Normal 7-21 [facility] Comment on above: Order Comment: Speci men Type: BLOOD SPECIMEN Ordering Facility[facility] Address: [address] [place] [address] Performed By: #### 3 -3, 20395-7 #### [facility] CLIA [id number] [address] [place] [id number] [place] Lipase SerPl-cCncon 11-30-19 25 Lipase [Catalytic activity/Vol] 50 U/L Normal 16-61 [facility] Comment on above: Order Comment: Speci men Type: BLOOD SPECIMEN Ordering Facility[facility] Address: [address] [place] [address] Performed By: #### 3 040-3, 63257-6 #### [facility] CLIA [id number] [address] [place] [address] [place] ALBUMIN/CREATININE RATIO, UR INEon 11-26-2024 Albumin Unsp time DL <= 20 mg/L (U) [Mass/Time] 19.4 mg/L Normal [facility] Comment on above: Order Comment: Speci men Type: URINE SPECIMEN Ordering Facility: [facility] Address: [address] [place] [address] Performed By: #### U ACR #### [facility] CLIA [id number] [address] [place] Albumin/Creatinine (U) [Mass ratio] 39 mg/g High <30 [facility] Comment on above: Order Comment: Speci men Type: URINE SPECIMEN Ordering Facility: [facility] Address: [address] [place] [address] Result Comment: Adul t Male and Female Nephrotic Criteria: <30 mg/g is considered normal to mildly increased 30-300 mg/g is considered moderately increased >300 mg/g is considered severely increased KDIGO. (2013). KDIGO 2012 Clinical Practice Guideline for the Evaluation and Management of Chronic Kidney Disease. Official Journal of the International Society of Nephrology, 3(1), 1-150. Performed By: #### U ACR #### [facility] CLIA [id number] [address] [place] [address] [place] Creatinine (U) [Mass/Vol] 49.7 mg/dL Normal 42.2-237.9 [facility] Comment on above: Order Comment: Speci men Type: URINE SPECIMEN Ordering Facility: [facility] Address: [address] [place] [id number] Performed By: #### U ACR #### [facility] CLIA [id number] [address] [place] [address] [place] Basic metabolic 2000 panelon 11-26-2024 Anion gap [Moles/Vol] 8 mmol/L Normal 8-15 [facility] Comment on above: Order Comment: Speci men Type: BLOOD SPECIMEN [facility]ing Facility: [facility] Address: [address] [place] [address] Performed By: #### 3 040-3, 50062-7 #### [facility] CLIA [id number] [address] [place] [address] [place] Calcium [Mass/Vol] 9.9 mg/dL Normal 8.5-10.2 [facility] Comment on above: Order Comment: Speci men Type: BLOOD SPECIMEN [facility] Address: [address] [place] [address] Performed By: #### 3 040-3, 39892-2 #### [facility] CLIA [id number] [address] [place] [address] [place] Chloride [Moles/Vol] 98 mmol/L Normal 98-107 [facility] Comment on above: Order Comment: Speci men Type: BLOOD SPECIMEN [facility] Address: [address] [place] [address] Performed By: #### 3 040-3, #### [facility] CLIA [id number] [address] [place] [address] [place] CO2 [Moles/Vol] 29 mmol/L Normal 22-30 [facility] Comment on above: Order Comment: Shanikai men Type: BLOOD SPECIMEN [facility] Address: [address] [place] [address] Performed By: #### 3 040-3, 62426-1 #### [facility] CLIA [id number] [address] [place] [address] [place] Creatinine [Mass/Vol] 0.93 mg/dL Normal 0.58-0.96 [facility] Comment on above: Order Comment: Speci men Type: BLOOD SPECIMEN [facility] Address: [address] [place] [address] Performed By: #### 3 040-3, 35907-7 #### [facility] CLIA [id number] [address] [place] [address] [facility] [place] Creatinine and Glomerular filtration rate.predicted panel (S/P/Bld) 59 mL/min/1.73m??? Low >=60 [facility] Comment on above: Order Comment: Speci men Type: BLOOD SPECIMEN Ordering Facility: [facility] Address: [address] [place] [address] Result Comment: Dolores mated Glomerular Filtration Rate [...] actual GFR. Performed By: #### 3 040-3, 49658-6 #### [facility] CLIA [id number] [address] [place] [address] [place] Glucose [Mass/Vol] 83 mg/dL Normal 74-99 [facility] Comment on above: Order Comment: Marti hankins Type: BLOOD SPECIMEN [facility] Address: [address] [place] [address] Result Comment: The [place] Diabetes Association (ADA) provides guidance for cutoff [...] Standards of Medical Care in Diabetes 2016, [place] Diabetes Association. Diabetes Care. 2016.39(Suppl 1). Performed By: #### 3 040-3, 21399-3 #### [facility] CLIA [id number] [address] [place] [address] [place] Potassium [Moles/Vol] 4.7 mmol/L Normal 3.7-5.1 [facility] Comment on above: Order Comment: Marti hankins Type: BLOOD SPECIMEN [facility] Address: [address] [place] [address] Performed By: #### 3 040-3, 24941-3 #### [facility] CLIA [id number] [address] [place] [address] [place] [facility] Sodium [Moles/Vol] 135 mmol/L Low 136-144 [facility] Comment on above: Order Comment: Marti hankins Type: BLOOD SPECIMEN [facility] Address: [address] [place] [address] Performed By: #### 3 040-3, 50701-1 #### [facility] CLIA [id number] [address] [place] [address] [place] [facility] Urea nitrogen [Mass/Vol] 12 mg/dL Normal 7-21 [facility] Comment on above: Order Comment: Marti hankins Type: BLOOD SPECIMEN [facility] Address: [address] [place] [address] Performed By: #### 3 040-3, 31309-7 #### [facility] CLIA [id number] [address] [place] [id number] [facility] PT panel Coag (PPP)on 2024 INR Coag (PPP) [Relative time] 2.6 {INR} High 0.9-1.3 [facility] Comment on above: Order Comment: Marti hankins Type: BLOOD SPECIMEN [facility] Address: [address] [place] [address] Result Comment: Mirna min K Antagonist (VKA) Therapeutic Range: INR 2 to 3 (Target INR of 2.5) Note: For patients treated with VKA drugs, such as warfarin, the [place] [employer]icians 2012 Guideline recommends [...] Chest 2012, 141:7S-47S Jayce ALVARADO et al. [facility] 2017, 70: 252-289 Performed By: #### 3 040-3, 13434-6 #### [facility] CLIA [id number] [address] [place] [address] [place] [facility] PT Coag (PPP) [Time] 25.4 s High <13.1 [facility] Comment on above: Order Comment: Marti hankins Type: BLOOD SPECIMEN [facility] Address: [address] [place] [address] Performed By: #### 3 040-3, 08245-0 #### [facility] CLIA [id number] [address] [place] [address] [facility] Urate SerPl-mCncon 5 Urate [Mass/Vol] 4.3 mg/dL Normal 2.5-6.6 [facility] Comment on above: Order Comment: Marti hankins Type: BLOOD SPECIMEN [facility]ing Facility: [facility] Address: [address] [place] [address] Performed By: #### 3 040-3, 09593-0 #### [facility] CLIA [id number] [address] [place] [address] OF [facility] PT panel Coag (PPP)on 2024 INR Coag (PPP) [Relative time] 2.5 {INR} High 0.9-1.3 [facility] Comment on above: Order Comment: Marti hankins Type: BLOOD SPECIMEN [facility] Facility: [facility] Address: [address] [place] [address] Result Comment: Mirna min K Antagonist (VKA) Therapeutic Range: INR 2 to 3 (Target INR of 2.5) Note: For patients treated with VKA drugs, such as warfarin, the [place] [employer] 2012 Guideline recommends [...] Chest 2012, 141:7S-47S Jayce RA, et al. [facility] 2017, 70: 252-289 Performed By: #### 3 4528-0 #### [facility] CLIA [id number] [address] [place] [address] [facility] PT Coag (PPP) [Time] 25.2 s High <13.1 [facility] Comment on above: Order Comment: Marti hankins Type: BLOOD SPECIMEN [facility] Facility: [facility] Address: [address] [place] [address] Performed By: #### 3 4528-0 #### [facility] CLIA [id number] [address] [place] [address] [place] [facility] 10-29-2024 CNPN Telephone (AGINTMLW) HELEN LIEBERMAN ([id number]) 1935 F Date Time Provider Department 10/29/24 TANYA LOZANO AGINTMLW During your visit today, we recorded the following information about you: Charisse Lange MA 10/29/2024 8:29 AM Signed Office INR machine is unable to be used, patient has nurse visit INR scheduled for 11/01. Please place lab order for patient to complete check at the lab. Thanks! LEIGH Lorenzana Charlene M, WIRE BENDER.PHOTOENGRAVING SUPERVISOR 10/29/2024 12:49 PM Signed Order placed Nicole [...] Date Reviewed: 10/04/2024 Reviewed by: Genia Huitron APRN.PHOTOENGRAVING SUPERVISOR - Fully Assessed Reason for Visit: Lab Orders [1688] Primary Visit Diagnosis:Paroxysmal atrial fibrillation (HCC) [I48.0] Order(s):PROTHROMBIN TIME [SQPT] Order #: [id number] FUTURE Prescriptions as of 10/30/2024 - losartan [...] Encounter Status:Closed by TANYA LOZANO on 10/29/24 [facility] CNCO[facility] [id number] Author: SHIRLEY PERALES MD Service: ? Author Type: Physician Type: Letter Filed: 10/16/2024 16:09 Note Text: [facility] Payer Denial Management [address] [place] [address] DATE: 10/15/2024 FACILITY: [facility]. Patient: HELEN LIEBERMAN Date of Service: 08/09/2024 [...] 85, with urine osmolality 408, which the Link Trainer Teacher thought was inappropriate. Recommendation was for urea [...] in hospital before safe discharge to SNF. [facility] requests your kind reconsideration of this case; and full proper reimbursement for the inpatient admission of August 09, 2024 to August 14, 2024. A review of the enclosed documentation will support these statements. Please send your response to [facility], Payer Denial Management, [address] [place] [address], [place] [address]. If additional information is needed please contact me at [phone]. Sincerely, Shirley Perales M.D. [facility] [place] [address] [email or web address] Normal [facility] 10-09-2024 CNPN Telephone (AGINTMLW) HELEN LIEBERMAN ([id number]) 1935 F Date Time Provider Department 10/09/24 ATNYA LOZANO AGINTMLW During your visit today, we recorded the following information about you: Corrine Birmingham LPN 10/09/2024 11:47 AM Signed Pt asking for mammogram order to be placed. Pt would like call once order is placed so she can schedule. ROBERT Mcgovern Charlene M, WIRE BENDER.PHOTOENGRAVING SUPERVISOR 10/09/2024 12:38 PM Addendum Is there a [...] peace of mind. ROBERT Mcgovern Charlene M, WIRE BENDER.PHOTOENGRAVING SUPERVISOR 10/10/2024 6:46 AM Signed Addended by: TANYA [...] Date Reviewed: 10/04/2024 Reviewed by: Genia Huitron APRN.PHOTOENGRAVING SUPERVISOR - Fully Assessed Reason for Visit: Orders [681] Cmt: Mammogram order Primary Visit Diagnosis:Encounter for screening mammogram for malignant neoplasm of breast [Z12.31] Order(s):[facility] SCREENING W JOSE [8049302] Order #: [id number] FUTURE Prescriptions as of 10/10/2024 - losartan [...] Encounter Status:Closed by CORRINE BIRMINGHAM on 10/09/24 [facility] CNPN Telephone (AGINTMLW) HELEN LIEBERMAN ([id number]) 1935 F Date Time Provider Department 10/09/24 TANYA LOZANO During your visit today, we recorded the following information about you: Corrine Birmingham LPN 10/09/2024 11:19 AM Signed ----- Message from Tanya Lozano APRN.PHOTOENGRAVING SUPERVISOR sent at 10/07/2024 11:36 AM EST ----- Wnr. Continue current dose recheck one month Corrine Birmingham LPN 10/09/2024 11:24 AM Signed Call placed [...] Date Reviewed: 10/04/2024 Reviewed by: Genia Huitron APRN.PHOTOENGRAVING SUPERVISOR - Fully Assessed Reason for Visit: Coumadin/INR [...] Encounter Status:Closed by CORRINE BIRMINGHAM on 10/09/24 [facility] CNOVon 10-04-2024 [facility] Office Visit (AGFAMP LE) HELEN LIEBERMAN ([id number]) 1935 F Date Time Provider Department 10/04/24 3:20 PM GENIA HUITRON During your visit today, we recorded the following information about you: Temperature Pulse Blood pressure Weight 98 degrees 76/minute 146/60 54 kg Height 1.575 m Genia Huitron, WIRE BENDER.PHOTOENGRAVING SUPERVISOR 10/08/2024 9:43 AM Signed CHIEF COMPLAINT: Helen [...] physical therapy confirmed this. She will need senior care facility. The hyponatremia is due to low [...] differently: Take (more content not included)... Normal [facility] INR (POC)on 10-04-2024 INR Coag (PPP) [Relative time] 2.1 {INR} High 0.8 - 1.2 [facility] Internal Quality Check Acceptable [facility] Interpretation and review of laboratory results Abnormal [facility] Location:[facility], [address], [place], [address] [facility] POINT OF CARE [facility] Prothrombin Time w/INRon INR Coag (PPP) [Relative time] 2.1 {INR} Normal [facility] Comment on above: Performed By: #### L 530.7327 #### [facility] [address] [place], [address] PT Coag (PPP) [Time] 23.5 s High 11.7-14.9 [facility] Comment on above: Performed By: #### L 300.3900 #### [facility] [address] [place], [address] Prothrombin Time w/INRon INR Coag (PPP) [Relative time] 1.9 {INR} Normal [facility] Comment on above: Order Comment: 405.2 Performed By: #### L 300.3900 #### [facility] [address] [place], [address] PT Coag (PPP) [Time] 21.7 s High 11.7-14.9 [facility] Comment on above: Order Comment: 405.2 Performed By: #### L 300.3900 #### [facility] [address] [place], [address] Renal Profileon 08-21-2024 Albumin [Mass/Vol] 3.7 g/dL Normal 3.2-5.0 [facility] Comment on above: Order Comment: 405.2 Performed By: #### L 500.3600 #### [facility] [address] [place], [address] BUN/CRE 13.0 RATIO Normal 10-20 [facility] Comment on above: Order Comment: 405.2 Performed By: #### L 500.3600 #### [facility] [address] [place], [address] CA,Total 9.3 mg/dL Normal 8.5-10.1 [facility] Comment on above: Order Comment: 405.2 Performed By: #### L 500.3600 #### [facility] [address] [place], [address] Chloride [Moles/Vol] 98 mmol/L Normal 98-107 [facility] Comment on above: Order Comment: 405.2 Performed By: #### L 500.3600 #### [facility] [address] [place], [address] CO2 [Moles/Vol] 27.0 mmol/L Normal 21.0-32.0 [facility] Comment on above: Order Comment: 405.2 Performed By: #### L 500.3600 #### [facility] [address] [place], [address] Creatinine [Mass/Vol] 0.77 mg/dL Normal 0.55-1.02 [facility] Comment on above: Order Comment: 405.2 Result Comment: The validity of the calculated GFR GFRAA in patients over 70 years has not been determined. Clinical correlation is essential. Performed By: #### L 500.3600 #### [facility] [address] [place], [address] EST GFR - AA 91 mL/min Normal >60 [facility] Comment on above: Order Comment: 405.2 Result Comment: Afri can Brazilian GFR Calc Performed By: #### L 500.3600 #### [facility] [address] [place], [address] GFR/1.73 sq M.predicted among non-blacks MDRD (S/P/Bld) [Vol rate/Area] 75 mL/min/{1.73_m2} Normal >60 [facility] Comment on above: Order Comment: 405.2 Result Comment: Non- GFR Calc Performed By: #### L 500.3600 #### [facility] [address] [place], [address] Glucose [Mass/Vol] 103 mg/dL Normal 74-106 [facility] Comment on above: Order Comment: 405.2 Result Comment: Fast ing Glucose result from 100 to 125 mg/dL suggests IMPAIRED HOMEOSTASIS per A.D.A. criteria. Performed By: #### L 500.3600 #### [facility] [address] [place], [address] Phosphate [Mass/Vol] 2.8 mg/dL Normal 2.5-4.9 [facility] Comment on above: Order Comment: 405.2 Performed By: #### L 500.3600 #### [facility] [address] [place], [address] Potassium [Moles/Vol] 4.3 mmol/L Normal 3.5-5.1 [facility] Comment on above: Order Comment: 405.2 Performed By: #### L 500.3600 #### [facility] [address] [place], [address] Sodium [Moles/Vol] 132 mmol/L Low 136-145 [facility] Comment on above: Order Comment: 405.2 Performed By: #### L 500.3600 #### [facility] [address] [place], [address] Urea nitrogen [Mass/Vol] 10 mg/dL Normal 7-18 [facility] Comment on above: Order Comment: 405.2 Performed By: #### L 500.3600 #### [facility] [address] [place], [address] Prothrombin Time w/INRon INR Coag (PPP) [Relative time] 1.2 {INR} Normal [facility] Comment on above: Performed By: #### L 300.3900 #### [facility] [address] [place], [address] PT Coag (PPP) [Time] 15.0 s High 11.7-14.9 [facility] Comment on above: Performed By: #### L 300.3900 #### [facility] [address] [place], [address] Basic metabolic 2000 panelon 08-14-2024 Anion gap [Moles/Vol] 9 mmol/L Normal 8-15 [facility] Comment on above: Order Comment: Speci men Type: BLOOD SPECIMENOrdering Facility: [facility] Address: [address] [place] [address] Performed By: #### 2 4321-2 ####[facility]ORATORYCLIA [id number] [place] [address] [place] Calcium [Mass/Vol] 9.5 mg/dL Normal 8.5-10.2 [facility] Comment on above: Order Comment: Speci men Type: BLOOD SPECIMENOrdering Facility: [facility] Address: [address] [place] [address] Performed By: #### 2 4321-2 ####[facility] LABORATORYCLIA [id number] [place] [address] [place] Chloride [Moles/Vol] 99 mmol/L Normal 98-107 [facility] Comment on above: Order Comment: Speci men Type: BLOOD SPECIMENOrdering Facility: [facility] Address: [address] [place] [address] Performed By: #### 2 4321-2 ####[facility]ORATORYCLIA [id number] [place] [address] [place] CO2 [Moles/Vol] 28 mmol/L Normal 22-30 [facility] Comment on above: Order Comment: Speci men Type: BLOOD SPECIMENOrdering Facility: [facility] Address: [address] [place] [address] Performed By: #### 2 4321-2 ####[facility]ORATORYCLIA [id number] [address] [place] Creatinine [Mass/Vol] 0.87 mg/dL Normal 0.58-0.96 [facility] Comment on above: Order Comment: Speci men Type: BLOOD SPECIMENOrdering Facility: [facility] Address: [address] [place] [address] Performed By: #### 2 4321-2 ####[facility]ORATORYCLIA [id number] [address] [place] Creatinine and Glomerular filtration rate.predicted panel (S/P/Bld) 65 mL/min/1.73m??? Normal >=60 [facility] Comment on above: Order Comment: Speci men Type: BLOOD SPECIMENOrdering Facility: [facility] Address: [address] [place] [address] Result Comment: Dolores mated Glomerular Filtration Rate [...] actual GFR. Performed By: #### 2 4321-2 ####[facility]ORY[facility] [id number] [place] [address] [place] Glucose [Mass/Vol] 109 mg/dL High 74-99 [facility] Comment on above: Order Comment: Marti hankins Type: BLOOD SPECIMENOrdering Facility: [facility] Address: [address] [place] [address] Result Comment: The [place] Diabetes Association (ADA) provides guidance for cutoff [...] Standards of Medical Care in Diabetes 2016, [place] Diabetes Association. Diabetes Care. 2016.39(Suppl 1). Performed By: #### 2 4321-2 ####[facility]ORYCLIA [id number] [place] [id number] [place] Potassium [Moles/Vol] 4.6 mmol/L Normal 3.7-5.1 [facility] Comment on above: Order Comment: Marti hankins Type: BLOOD SPECIMENOrdering Facility: [facility] Address: [address] [place] [address] Performed By: #### 2 4321-2 ####[facility]ATORYCLIA [id number] [place] [id number] [place] Sodium [Moles/Vol] 136 mmol/L Normal 136-144 [facility] Comment on above: Order Comment: Speci men Type: BLOOD SPECIMENOrdering Facility: [facility] Address: [address] [place] [address] Performed By: #### 2 4321-2 ####[facility]ORATORYCLIA [id number] [address] Urea nitrogen [Mass/Vol] 29 mg/dL High 7-21 [facility] Comment on above: Order Comment: Speci men Type: BLOOD SPECIMENOrdering Facility: [facility] Address: [address] [place] [address] Performed By: #### 2 4321-2 ####[facility]ORATORYCLIA [id number] [address] CNDSon 08-14-2024 [facility] HNO ID: [id number] Author: EVANGELISTA SOMMERS MD Service: Hospital Medicine [...] Sommers MD Primary Care Provider: Tanya Lozano APRN.PHOTOENGRAVING SUPERVISOR My Medical Team Members: Treatment Team: Attending [...] on the bottle Follow Up Appointments Follow-Up Development Editor should call in 1-2 business days to arrange appointment in less than 2 weeks. When: In 2 weeks Patient/Parents to call for appointment?: Scheduled Wandy Alvarez MD [phone] [address] PCP Requested Referral Additional Provider to Provider Information: Disposition: longterm [facility] Consultants: Dr. 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 Normal [facility] 08-13-2024 [facility] Telephone (HCSIND) HELEN LIEBERMAN ([id number]) 1935 F Date Time Provider Department 08/13/24 MIRTA CHRISTIAN HCSIND During your visit today, we recorded the following information about you: Mirta Christian 08/13/2024 8:46 AM Signed Date/Time: 08/13/2024 8:44 AM Spoke with Helen @ phone #: [phone] - Preferred # for contact: [phone] Have you received help from a home care company in the last 60 days? no Are you agreeable to [facility] services? yes What address will we be seeing you at? [address] [place] [address] [place] [address] Do you have any upcoming appointments or [...] Status:Closed by MIRTA CHRISTIAN on 08/13/24 Normal [facility] CONSULT PROGon 08-13-2024 CONSULT PROG HNO ID: [id number] Author: TOMEKA GORE MD Service: Nephrology Author [...] follows with me in the office Normal [facility] Renal function 2000 panelon 08-13-2024 Albumin [Mass/Vol] 3.8 g/dL Low 3.9-4.9 [facility] Comment on above: Order Comment: Speci men Type: BLOOD SPECIMENOrdering Facility: [facility] Address: [address] [place] [address] Performed By: #### 2 4362-6 ####[facility]ORATORYCLIA [id number] [place] [address] [place] Anion gap [Moles/Vol] 7 mmol/L Low 8-15 [facility] Comment on above: Order Comment: Speci men Type: BLOOD SPECIMENOrdering Facility: [facility] Address: [address] [place] [address] Performed By: #### 2 4362-6 ####[facility]ATORYCLIA [id number] [address] [place] Calcium [Mass/Vol] 9.6 mg/dL Normal 8.5-10.2 [facility] Comment on above: Order Comment: Speci men Type: BLOOD SPECIMENOrdering Facility: [facility] Address: [address] [place] [address] Performed By: #### 2 4362-6 ####[facility]ORATORYCLIA [id number] [address] STATES [facility] Chloride [Moles/Vol] 93 mmol/L Low 98-107 [facility] Comment on above: Order Comment: Marti men Type: BLOOD SPECIMENOrdering Facility: [facility] Address: [address] [place] [address] Performed By: #### 2 4362-6 ####[facility]ORATORYCLIA [id number] [address] CO2 [Moles/Vol] 29 mmol/L Normal 22-30 [facility] Comment on above: Order Comment: Marti hankins Type: BLOOD SPECIMENOrdering Facility: [facility] Address: [address] [place] [address] Performed By: #### 2 4362-6 ####[facility]ORATORYCLIA [id number] [address] Creatinine [Mass/Vol] 0.93 mg/dL Normal 0.58-0.96 [facility] Comment on above: Order Comment: Marti [facility] Type: BLOOD SPECIMENOrdering Facility: [facility] Address: [address] [place] [address] Performed By: #### 2 4362-6 ####[facility]ORATORYCLIA [id number] [address] Creatinine and Glomerular filtration rate.predicted panel (S/P/Bld) 60 mL/min/1.73m??? Normal >=60 [facility] Comment on above: Order Comment: Marti [facility] Type: BLOOD SPECIMENOrdering Facility: [facility] Address: [address] [place] [address] Result Comment: Dolores mated Glomerular Filtration Rate [...] Performed By: #### 2 4362-6 ####[facility] LABORATORYCLIA [id number] [place] [address] [place] Glucose [Mass/Vol] 114 mg/dL High 74-99 [facility] Comment on above: Order Comment: Marti hankins Type: BLOOD SPECIMENOrdering Facility: [facility] Address: [address] [place] [address] Result Comment: The [place] Diabetes Association (ADA) provides guidance for cutoff [...] Standards of Medical Care in Diabetes 2016, [place] Diabetes Association. Diabetes Care. 2016.39(Suppl 1). Performed By: #### 2 4362-6 ####[facility]ATORYCLIA [id number] [place] [address] [place] Phosphate [Mass/Vol] 3.6 mg/dL Normal 2.7-4.8 [facility] Comment on above: Order Comment: Marti hankins Type: BLOOD SPECIMENOrdering Facility: [facility] Address: [address] [place] [address] Performed By: #### 2 4362-6 ####[facility]ATORYCLIA [id number] [place] [address] [place] Potassium [Moles/Vol] 4.3 mmol/L Normal 3.7-5.1 [facility] Comment on above: Order Comment: Marti hankins Type: BLOOD SPECIMENOrdering Facility: [facility] Address: [address] [place] [address] Performed By: #### 2 4362-6 ####[facility] LABORATORYCLIA [id number] [place] [address] [place] Sodium [Moles/Vol] 129 mmol/L Low 136-144 [facility] Comment on above: Order Comment: Speci cr Type: BLOOD SPECIMENOrdering Facility: [facility] Address: [address] [place] [address] Performed By: #### 2 4362-6 ####[facility] LABORATORYCLIA [id number] [place] [id number] [facility] Urea nitrogen [Mass/Vol] 39 mg/dL High 7-21 [facility] Comment on above: Order Comment: Marti hankins Type: BLOOD SPECIMENOrdering Facility: [facility] Address: [address] [place] [address] Performed By: #### 2 4362-6 ####[facility]ORATORYCLIA [id number] [address] THERAPY NTon 08-13-2024 THERAPY NT HNO ID: [id number] Author: MONIKA BATEMAN OTR/L Service: Occupational Therapy Author Type: Occupational Therapist Type: Therapy (PT/OT/Speech/Resp) Filed: 08/13/2024 15:22 Note Text: Summary: OT treatment Occupational Therapy Treatment Summary SERVICE DATE: 08/13/2024 SERVICE TIME: 1440 to 1458 ROOM: [id number]-[id number] OT 6 Clicks Score: 20 DISCHARGE RECOMMENDATIONS [...] completes Equipment Owned: Cane, Grab Bars- Shower, University Administrator, Long Handled Sponge PRIOR FUNCTIONAL LEVEL Within [...] daily living (ADL) TREATMENT INTERVENTIONS Therapeutic Activity (72930) Timed Code Treatment (minutes): 15 Skilled Treatment Time (minutes): 15 TRAINING AND EDUCATION PROVIDED Activity Adaptation/Compensatory Strategies, Bed Mobility, Benefits of In-Hospital Mobility, Transfer - Sit to Stand, Role of Occupational Therapy, Safety/Judgment, Precautions/Restriction s, Positioning, Meaningful Hobby/Leisure Participation, Expected Functional Level, Discharge Planning, Life Roles/Routines/Habits, Sitting Balance to Improve [place] with ADLs/Self-Care, Transfer - Bed to Chair [...] demonstrate underst (more content not included)... Normal [facility] Basic metabolic 2000 panelon 08-12-2024 Anion gap [Moles/Vol] 8 mmol/L Normal 8-15 [facility] Comment on above: Order Comment: Speci men Type: BLOOD SPECIMEN [facility] Address: [address] [place] [address] Performed By: #### 5 8410-2 #### [facility] CLIA [id number] [address] [place] [address] [place] Calcium [Mass/Vol] 9.2 mg/dL Normal 8.5-10.2 [facility] Comment on above: Order Comment: Speci men Type: BLOOD SPECIMEN [facility] Address: [address] [place] [address] Performed By: #### 5 8410-2 #### [facility] CLIA [id number] [address] [place] [address] [place] Chloride [Moles/Vol] 86 mmol/L Low 98-107 [facility] Comment on above: Order Comment: Speci men Type: BLOOD SPECIMEN [facility] Address: [address] [place] [address] Performed By: #### 5 8410-2 #### [facility] CLIA [id number] [address] [place] [address] [place] CO2 [Moles/Vol] 29 mmol/L Normal 22-30 [facility] Comment on above: Order Comment: Marti hankins Type: BLOOD SPECIMEN [facility] Address: [address] [place] [address] Performed By: #### 5 8410-2 #### [facility] CLIA [id number] [address] Creatinine [Mass/Vol] 0.86 mg/dL Normal 0.58-0.96 [facility] Comment on above: Order Comment: Marti hankins Type: BLOOD SPECIMEN [facility] Address: [address] [place] [address] Performed By: #### 5 8410-2 #### [facility] CLIA [id number] [address] Creatinine and Glomerular filtration rate.predicted panel (S/P/Bld) 65 mL/min/1.73m??? Normal >=60 [facility] Comment on above: Order Comment: Marti hankins Type: BLOOD SPECIMEN [facility] Address: [address] [place] [address] Result Comment: Dolores mated Glomerular Filtration Rate [...] GFR. Performed By: #### 5 8410-2 #### [facility] CLIA [id number] [address] [place] Glucose [Mass/Vol] 153 mg/dL High 74-99 [facility] Comment on above: Order Comment: Marti hankins Type: BLOOD SPECIMEN [facility] Address: [address] [place] [address] Result Comment: The [place] Diabetes Association (ADA) provides guidance for cutoff [...] Standards of Medical Care in Diabetes 2016, [place] Diabetes Association. Diabetes Care. 2016.39(Suppl 1). Performed By: #### 5 8410-2 #### [facility] CLIA [id number] [address] [place] [address] [place] Potassium [Moles/Vol] 4.1 mmol/L Normal 3.7-5.1 [facility] Comment on above: Order Comment: Marti hankins Type: BLOOD SPECIMEN [facility] Address: [address] [place] [address] Performed By: #### 5 8410-2 #### [facility] CLIA [id number] [address] [place] Sodium [Moles/Vol] 123 mmol/L Low 136-144 [facility] Comment on above: Order Comment: Marti hankins Type: BLOOD SPECIMEN [facility] Address: [address] [place] [address] Performed By: #### 5 8410-2 #### [facility] CLIA [id number] [address] [place] Urea nitrogen [Mass/Vol] 13 mg/dL Normal 7-21 [facility] Comment on above: Order Comment: Marti hankins Type: BLOOD SPECIMEN [facility] Address: [address] [place] [address] Performed By: #### 5 8410-2 #### [facility] CLIA [id number] [address] [place] CBC panel Auto (Bld)on 08-12 Erythrocyte distribution width (RBC) [Ratio] 12.2 % Normal 11.5-15.0 [facility] Comment on above: Order Comment: Speci men Type: BLOOD SPECIMENOrdering Facility: [facility] Address: [address] [place] [address] Performed By: #### 5 8410-2 ####[facility] [id number] [address] Hematocrit (Bld) [Volume fraction] 32.3 % Low 36.0-46.0 [facility] Comment on above: Order Comment: Speci men Type: BLOOD SPECIMENOrdering Facility: [facility] Address: [address] [place] [address] Performed By: #### 5 8410-2 ####[facility] [id number] [address] Hemoglobin (Bld) [Mass/Vol] 11.1 g/dL Low 11.5-15.5 [facility] Comment on above: Order Comment: Speci men Type: BLOOD SPECIMENOrdering Facility: [facility] Address: [address] [place] [address] Performed By: #### 5 8410-2 ####[facility] [id number] [address] MCH (RBC) [Entitic mass] 32.6 pg Normal 26.0-34.0 [facility] Comment on above: Order Comment: Speci men Type: BLOOD SPECIMENOrdering Facility: [facility] Address: [address] [place] [address] Performed By: #### 5 8410-2 ####[facility] [id number] [address] MCHC (RBC) [Mass/Vol] 34.4 g/dL Normal 30.5-36.0 [facility] Comment on above: Order Comment: Speci men Type: BLOOD SPECIMENOrdering Facility: [facility] Address: [address] [place] [address] Performed By: #### 5 8410-2 ####[facility] [id number] [address] MCV (RBC) [Entitic vol] 95.0 fL Normal 80.0-100.0 [facility] Comment on above: Order Comment: Speci men Type: BLOOD SPECIMENOrdering Facility: [facility] Address: [address] [place] [address] Performed By: #### 5 8410-2 ####[facility] [id number] [address] [place] Nucleated RBC (Bld) [#/Vol] 10*3/uL Normal <0.01 [facility] Comment on above: Order Comment: Speci men Type: BLOOD SPECIMENOrdering Facility: [facility] Address: [address] [place] [address] Performed By: #### 5 8410-2 ####[facility] [id number] [address] [place] Platelet mean volume (Bld) [Entitic vol] 9.1 fL Normal 9.0-12.7 [facility] Comment on above: Order Comment: Speci men Type: BLOOD SPECIMENOrdering Facility: [facility] Address: [address] [place] [address] Performed By: #### 5 8410-2 ####[facility] [id number] [address] [place] Platelets (Bld) [#/Vol] 274 10*3/uL Normal 150-400 [facility] Comment on above: Order Comment: Speci men Type: BLOOD SPECIMENOrdering Facility: [facility] Address: [address] [place] [address] Performed By: #### 5 8410-2 ####[facility] [id number] [place] [address] [place] RBC (Bld) [#/Vol] 3.40 10*6/uL Low 3.90-5.20 [facility] Comment on above: Order Comment: Speci men Type: BLOOD SPECIMENOrdering Facility: [facility] Address: [address] [place] [address] Performed By: #### 5 8410-2 ####[facility] [id number] [place] [id number] [facility] WBC (Bld) [#/Vol] 7.57 10*3/uL Normal 3.70-11.00 [facility] Comment on above: Order Comment: Speci men Type: BLOOD SPECIMENOrdering Facility: [facility] Address: [facility] [address] Performed By: #### 5 8410-2 ####[facility] [id number] [place] [id number] [facility] CONSULTon 08-12-2024 CONSULT HNO ID: [id number] Author: REJI MENDOZA MD Service: Nephrology Author [...] EXAM: V (more content not included)... Normal [facility] Magnesium SerPl-mCncon 08-12 Magnesium [Mass/Vol] 1.7 mg/dL Normal 1.7-2.3 [facility] Comment on above: Order Comment: Speci men Type: BLOOD SPECIMEN [facility] Address: [address] [place] [address] Performed By: #### 5 8410-2 #### [facility] CLIA [id number] [address] [place] [address] [facility] [place] THERAPY NTon 08-12-2024 THERAPY NT HNO ID: [id number] Author: MENDEL JUAREZ PT Service: Physical Therapy Author Type: Physical Therapist Type: Therapy (PT/OT/Speech/Resp) Filed: 08/12/2024 11:08 Note Text: Summary: PT Treatment Physical Therapy Treatment Summary SERVICE DATE: 08/12/2024 SERVICE TIME: 1044 to 1053 ROOM: [place] [address] PT 6 Clicks Score: 14 DISCHARGE RECOMMENDATIONS [...] completes Equipment Owned: Cane, Grab Bars- Shower, University Administrator, Long Handled Sponge PRIOR FUNCTIONAL LEVEL Within [...] Muscle Weakness (generalized) TREATMENT INTERVENTIONS Therapeutic Activity (81378) Timed Code Treatment (minutes): 9 Skilled Treatment [...] will d (more content not included)... Normal [facility] Basic metabolic 2000 panelon 08-11-2024 Anion gap [Moles/Vol] 9 mmol/L Normal 8-15 [facility] Comment on above: Order Comment: Speci men Type: BLOOD SPECIMENOrdering Facility: [facility] Address: [address] [place] [address] Performed By: #### 2 4321-2, ####[facility] [id number] [place] [address] [place] Calcium [Mass/Vol] 9.4 mg/dL Normal 8.5-10.2 [facility] Comment on above: Order Comment: Speci men Type: BLOOD SPECIMENOrdering Facility: [facility] Address: [address] [place] [address] Performed By: #### 2 4320-2, ####[facility] [id number] [place] [address] [place] Chloride [Moles/Vol] 90 mmol/L Low 98-107 [facility] Comment on above: Order Comment: Speci men Type: BLOOD SPECIMENOrdering Facility: [facility] Address: [address] [place] [address] Performed By: #### 2 4321-2, ####[facility] [id number] [place] [id number] [place] CO2 [Moles/Vol] 28 mmol/L Normal 22-30 [facility] Comment on above: Order Comment: Speci men Type: BLOOD SPECIMENOrdering Facility: [facility] Address: [address] [place] [address] Performed By: #### 2 432-2, ####[facility] [id number] [place] [address] [place] Creatinine [Mass/Vol] 0.81 mg/dL Normal 0.58-0.96 [facility] Comment on above: Order Comment: Speci men Type: BLOOD SPECIMENOrdering Facility: [facility] Address: [address] [place] [address] Performed By: #### 2 4321-2, ####[facility]IA [id number] [address] STATES [facility] Creatinine and Glomerular filtration rate.predicted panel (S/P/Bld) 70 mL/min/1.73m??? Normal >=60 [facility] Comment on above: Order Comment: Marti hankins Type: BLOOD SPECIMENOrdering Facility: [facility] Address: [address] [place] [address] Result Comment: Dolores mated Glomerular Filtration Rate [...] Performed By: #### 2 432-, ####[facility]ORYCLIA [id number] [place] [address] [place] Glucose [Mass/Vol] 110 mg/dL High 74-99 [facility] Comment on above: Order Comment: Marti hankins Type: BLOOD SPECIMENOrdering Facility: [facility] Address: [address] [place] [address] Result Comment: The [place] Diabetes Association (ADA) provides guidance for cutoff [...] Standards of Medical Care in Diabetes 2016, [place] Diabetes Association. Diabetes Care. 2016.39(Suppl 1). Performed By: #### 2 4321-2, ####[facility]ORYCLIA [id number] [address] STATES OF [facility] Potassium [Moles/Vol] 4.6 mmol/L Normal 3.7-5.1 [facility] Comment on above: Order Comment: Speci men Type: BLOOD SPECIMENOrdering Facility: [facility] Address: [address] [place] [address] Performed By: #### 2 4321-2, ####[facility]CLIA [id number] [address] STATES OF [facility] Sodium [Moles/Vol] 127 mmol/L Low 136-144 [facility] Comment on above: Order Comment: Speci men Type: BLOOD SPECIMENOrdering Facility: [facility] Address: [address] [place] [address] Performed By: #### 2 4321-2, ####[facility]CLIA [id number] [address] STATES [facility] Urea nitrogen [Mass/Vol] 13 mg/dL Normal 7-21 [facility] Comment on above: Order Comment: Speci men Type: BLOOD SPECIMENOrdering Facility: [facility] Address: [address] [place] [address] Performed By: #### 2 4321-2, ####[facility]CL[facility] [id number] [address] OF [facility] CASE MANAGEMon 08-11-2024 CASE MANAGEM HNO ID: [id number] Author: NADJA MCFADDEN LSW Service: ASSESSMENT Author Type: Crutcher Helper Type: Care Mgt Progress Note Filed: 08/11/2024 [...] Will continue to follow. 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 Address: [address] [place] [address] Performed By: #### 5 8410-2 ####[facility]CLIA [id number] [address] Hematocrit (Bld) [Volume fraction] 33.5 % Low 36.0-46.0 [facility] Comment on above: Order Comment: Speci men Type: BLOOD SPECIMENOrdering Facility: [facility] Address: [address] [place] [address] Performed By: #### 5 8410-2 ####[facility] [id number] [address] OF [place] Hemoglobin (Bld) [Mass/Vol] 11.4 g/dL Low 11.5-15.5 [facility] Comment on above: Order Comment: Speci men Type: BLOOD SPECIMENOrdering Facility: [facility] Address: [address] [place] [address] Performed By: #### 5 8410-2 ####[facility] [id number] [address] [place] MCH (RBC) [Entitic mass] 32.8 pg Normal 26.0-34.0 [facility] Comment on above: Order Comment: Speci men Type: BLOOD SPECIMENOrdering Facility: [facility] Address: [address] [place] [address] Performed By: #### 5 8410-2 ####[facility] [id number] [address] [place] MCHC (RBC) [Mass/Vol] 34.0 g/dL Normal 30.5-36.0 [facility] Comment on above: Order Comment: Speci men Type: BLOOD SPECIMENOrdering Facility: [facility] Address: [address] [place] [address] Performed By: #### 5 8410-2 ####[facility] [id number] [address] [place] MCV (RBC) [Entitic vol] 96.3 fL Normal 80.0-100.0 [facility] Comment on above: Order Comment: Speci men Type: BLOOD SPECIMENOrdering Facility: [facility] Address: [address] [place] [address] Performed By: #### 5 8410-2 ####[facility] [id number] [address] Nucleated RBC (Bld) [#/Vol] 10*3/uL Normal <0.01 [facility] Comment on above: Order Comment: Speci men Type: BLOOD SPECIMENOrdering Facility: [facility] Address: [address] [place] [address] Performed By: #### 5 8410-2 ####[facility] [id number] [address] [place] Platelet mean volume (Bld) [Entitic vol] 9.4 fL Normal 9.0-12.7 [facility] Comment on above: Order Comment: Speci men Type: BLOOD SPECIMENOrdering Facility: [facility] Address: [address] [place] [address] Performed By: #### 5 8410-2 ####[facility] [id number] [address] Platelets (Bld) [#/Vol] 280 10*3/uL Normal 150-400 [facility] Comment on above: Order Comment: Speci men Type: BLOOD SPECIMENOrdering Facility: [facility] Address: [address] [place] [address] Performed By: #### 5 8410-2 ####[facility]CLIA [id number] [place] [address] [place] RBC (Bld) [#/Vol] 3.48 10*6/uL Low 3.90-5.20 [facility] Comment on above: Order Comment: Speci men Type: BLOOD SPECIMENOrdering Facility: [facility] Address: [address] [place] [address] Performed By: #### 5 8410-2 ####[facility]CLIA [id number] [place] [address] [place] [facility] WBC (Bld) [#/Vol] 7.91 10*3/uL Normal 3.70-11.00 [facility] Comment on above: Order Comment: Speci men Type: BLOOD SPECIMENOrdering Facility: [facility] Address: [address] [place] [address] Performed By: #### 5 8410-2 ####[facility] [id number] [address] [place] Magnesium SerPl-mCncon 08-11 Magnesium [Mass/Vol] 1.8 mg/dL Normal 1.7-2.3 [facility] Comment on above: Order Comment: Speci men Type: BLOOD SPECIMENOrdering Facility: [facility] Address: [address] [place] [address] Performed By: #### 2 4321-2, 17028-3 ####[facility]CLIA [id number] [address] [place] Osmolality Uron 08-11-2024 Osmolality (U) [Osmolality] 408 mosm/kg Normal 50-1200 [facility] Comment on above: Order Comment: Speci men Type: BLOOD SPECIMEN [facility] Address: [address] [place] [address] Performed By: #### 5 8410-2 #### [facility] CLIA [id number] [address] [place] [address] [place] Sodium ?Tm Ur-sCncon 024 Sodium Unsp time (U) [Moles/Vol] 84 mmol/L Normal 14-216 [facility] Comment on above: Order Comment: Speci men Type: BLOOD SPECIMEN [facility] Address: [address] [place], [place] [address] Performed By: #### 5 8410-2 #### [facility] CLIA [id number] [address] [place] ALLIED HEALTHon 08-10-2024 ALLIED HEALTH HNO ID: [id number] Author: TONI GARAY CT Service: Radiology Author Type: Differential Specialist Type: Allied Health Filed: 08/10/2024 09:19 Note [...] PATIENT PRESENTS WITH AN IMPLANTABLE OR ATTACHED DRYWALL SPRAYER: No RADIOLOGY DEPARTMENT: MR; Exam(s) Completed: Lower MSK: Femur, left PERIPHERAL IV DATA: Site assessment: Clean,Dry and Intact, Site disposition Left in for next appointment SIGNED BY: KIRK Choudhury August 10, 2024 9:19 AM Normal [facility] Basic metabolic 2000 panelon 08-10-2024 Anion gap [Moles/Vol] 8 mmol/L Normal 8-15 [facility] Comment on above: Order Comment: Marti hankins Type: BLOOD SPECIMEN [facility] Address: [address] [place], [place] [address] Performed By: #### 5 8410-2 #### [facility] CLIA [id number] [address] [place] Calcium [Mass/Vol] 9.0 mg/dL Normal 8.5-10.2 [facility] Comment on above: Order Comment: Marti hnakins Type: BLOOD SPECIMEN [facility] Address: [address] [place], [place] [address] Performed By: #### 5 8410-2 #### [facility] CLIA [id number] [address] Chloride [Moles/Vol] 97 mmol/L Low 98-107 [facility] Comment on above: Order Comment: Marti hankins Type: BLOOD SPECIMEN [facility] Address: [address] [place] [address] Performed By: #### 5 8410-2 #### [facility] CLIA [id number] [address] CO2 [Moles/Vol] 26 mmol/L Normal 22-30 [facility] Comment on above: Order Comment: Marti hankins Type: BLOOD SPECIMEN [facility] Address: [address] [place] [address] Performed By: #### 5 8410-2 #### [facility] CLIA [id number] [address] Creatinine [Mass/Vol] 0.75 mg/dL Normal 0.58-0.96 [facility] Comment on above: Order Comment: Marti hankins Type: BLOOD SPECIMEN [facility] Address: [address] [place] [address] Performed By: #### 5 8410-2 #### [facility] CLIA [id number] [address] Creatinine and Glomerular filtration rate.predicted panel (S/P/Bld) 77 mL/min/1.73m??? Normal >=60 [facility] Comment on above: Order Comment: Marti hankins Type: BLOOD SPECIMEN [facility] Address: [address] [place] [address] Result Comment: Dolores mated Glomerular Filtration Rate [...] #### 5 8410-2 #### [facility] CLIA [id number] [address] [place] [address] [place] Glucose [Mass/Vol] 114 mg/dL High 74-99 [facility] Comment on above: Order Comment: Marti hankins Type: BLOOD SPECIMEN [facility] Address: [address] [place] [address] Result Comment: The [place] Diabetes Association (ADA) provides guidance for cutoff [...] Standards of Medical Care in Diabetes 2016, [place] Diabetes Association. Diabetes Care. 2016.39(Suppl 1). Performed By: #### 5 8410-2 #### [facility] CLIA [id number] [address] [place] [address] [place] Potassium [Moles/Vol] 4.4 mmol/L Normal 3.7-5.1 [facility] Comment on above: Order Comment: Marti hankins Type: BLOOD SPECIMEN [facility] Address: [address] [place] [address] Performed By: #### 5 8410-2 #### [facility] CLIA [id number] [address] [place] [address] [place] Sodium [Moles/Vol] 131 mmol/L Low 136-144 [facility] Comment on above: Order Comment: Marti hankins Type: BLOOD SPECIMEN [facility] Address: [address] [place] [address] Performed By: #### 5 8410-2 #### [facility] CLIA [id number] [address] [place] [address] [place] Urea nitrogen [Mass/Vol] 12 mg/dL Normal 7-21 [facility] Comment on above: Order Comment: Marti hankins Type: BLOOD SPECIMEN [facility] Address: [address] [place] [address] Performed By: #### 5 8410-2 #### [facility] CLIA [id number] [address] CBC panel Auto (Bld)on 08-10 Erythrocyte distribution width (RBC) [Ratio] 12.3 % Normal 11.5-15.0 [facility] Comment on above: Order Comment: Speci men Type: BLOOD SPECIMEN [facility] Address: [address] [place] [address] Performed By: #### 5 8410-2 #### [facility] CLIA [id number] [address] Hematocrit (Bld) [Volume fraction] 34.4 % Low 36.0-46.0 [facility] Comment on above: Order Comment: Speci men Type: BLOOD SPECIMEN [facility] Address: [address] [place] [address] Performed By: #### 5 8410-2 #### [facility] CLIA [id number] [address] Hemoglobin (Bld) [Mass/Vol] 11.6 g/dL Normal 11.5-15.5 [facility] Comment on above: Order Comment: Speci men Type: BLOOD SPECIMEN [facility] Address: [address] [place] [address] Performed By: #### 5 8410-2 #### [facility] CLIA [id number] [address] MCH (RBC) [Entitic mass] 32.6 pg Normal 26.0-34.0 [facility] Comment on above: Order Comment: Speci men Type: BLOOD SPECIMEN [facility] Address: [facility] [place] [address] Performed By: #### 5 8410-2 #### [facility] CLIA [id number] [address] MCHC (RBC) [Mass/Vol] 33.7 g/dL Normal 30.5-36.0 [facility] Comment on above: Order Comment: Speci men Type: BLOOD SPECIMEN [facility] Address: [address] [place] [address] Performed By: #### 5 8410-2 #### [facility] CLIA [id number] [address] MCV (RBC) [Entitic vol] 96.6 fL Normal 80.0-100.0 [facility] Comment on above: Order Comment: Speci men Type: BLOOD SPECIMEN [facility] Address: [address] [place] [address] Performed By: #### 5 8410-2 #### [facility] CLIA [id number] [address] Nucleated RBC (Bld) [#/Vol] 10*3/uL Normal <0.01 [facility] Comment on above: Order Comment: Speci men Type: BLOOD SPECIMEN [facility] Address: [address] [place] [address] Performed By: #### 5 8410-2 #### [facility] CLIA [id number] [address] OF [place] Platelet mean volume (Bld) [Entitic vol] 9.1 fL Normal 9.0-12.7 [facility] Comment on above: Order Comment: Speci men Type: BLOOD SPECIMEN [facility] Address: [address] [place] [address] Performed By: #### 5 8410-2 #### [facility] CLIA [id number] [address] Platelets (Bld) [#/Vol] 277 10*3/uL Normal 150-400 [facility] Comment on above: Order Comment: Speci men Type: BLOOD SPECIMEN [facility] Address: [address] [place] [address] Performed By: #### 5 8410-2 #### [facility] CLIA [id number] [address] [place] RBC (Bld) [#/Vol] 3.56 10*6/uL Low 3.90-5.20 [facility] Comment on above: Order Comment: Marti hankins Type: BLOOD SPECIMEN [facility] Address: [address] [place] [id number] Performed By: #### 5 8410-2 #### [facility] CLIA [id number] [address] WBC (Bld) [#/Vol] 7.71 10*3/uL Normal 3.70-11.00 [facility] Comment on above: Order Comment: Speci men Type: BLOOD SPECIMEN [facility] Address: [address] [place] [id number] Performed By: #### 5 8410-2 #### [facility] CLIA [id number] [address] Jeremy 08-10-2024 RUB[facility] Telephone (HCSIND) HELEN LIEBERMAN ([id number]) 1935 F Date Time Provider Department 08/10/24 TANYA LOZANO During your visit today, we recorded the following information about you: Monika Curry LPN 08/10/2024 4:20 PM Signed Tanya Lozano APRN.PHOTOENGRAVING SUPERVISOR Please advise if you are agreeable to signing and following for [facility] services? Our Clinicians will be sending the Plan of Care to you for review and approval. They will reach out for any appropriate orders required to provide home care services for the patient. We are not able to initiate [facility] services without a following provider. Home care clinicians may also obtain orders from [facility] Virtualist Providers Thank you and we would [...] Encounter Status:Closed by MONIKA CURRY on 08/10/24 [facility] CONSULTon 08-10-2024 CONSULT HNO ID: [id number] Author: WANDY ALVAREZ MD Service: Orthopaedic Surgery Author Type: Physician Bed Spring Maker Type: Consults Filed: 08/10/2024 17:29 Note Text: [...] 8:42 AM PRIMARY CARE PHYSICIAN: Tanya Lozano APRN.PHOTOENGRAVING SUPERVISOR ASSESSMENT AND PLAN 88 year old female [...] Lower E (more content not included)... Normal [facility] MRI UPPER LEG WO/W IVCON LTo n 08-10-2024 MRI UPPER LEG WO/W IVCON LT * * *Final Report* * * DATE OF EXAM: Aug 10 2024 10:37AM [facility] 0261 - MRI UPPER LEG WO/W IVCON [...] recommended to ensure resolution of this finding. Stripper Soft Plastic: ANSHU Transcribe Date/Time: Aug 10 2024 10:49A Dictated by : KASH MAR DO This examination was interpreted and the report reviewed and electronically signed by: KASH MAR DO on Aug 10 2024 11:37AM EST [id number] Normal [facility] Magnesium SerPl-mCncon 08-10 Magnesium [Mass/Vol] 1.8 mg/dL Normal 1.7-2.3 [facility] Comment on above: Order Comment: Marti hankins Type: BLOOD SPECIMEN [facility] Address: [address] [place] [address] Performed By: #### 5 8410-2 #### [facility] CLIA [id number] [address] [place] [address] [place] Osmolality SerPlon Osmolality [Osmolality] 276 mosm/kg Normal 275-300 [facility] Comment on above: Order Comment: Marti hankins Type: BLOOD SPECIMEN [facility] Address: [address] [place] [address] Performed By: #### 5 8410-2 #### [facility] CLIA [id number] [address] [place] [address] [place] PT panel Coag (PPP)on 2023 INR Coag (PPP) [Relative time] 2.0 {INR} High 0.9-1.3 [facility] Comment on above: Order Comment: Marti hankins Type: BLOOD SPECIMENOrdering Facility: [facility] Address: [address] [place] [address] Result Comment: Mirna min K Antagonist (VKA) Therapeutic Range: INR 2 to 3 (Target INR of 2.5) Note: For patients treated with VKA drugs, such as warfarin, the [employer] 2012 Guideline recommends [...] Chest 2012, 141:7S-47S Jayce RA, et al. [facility] 2017, 70: 252-289 Performed By: #### 3 4528-0, 69644-2 ####[facility] [id number] [place] [id number] [facility] PT Coag (PPP) [Time] 19.9 s High 9.7-13.0 [facility] Comment on above: Order Comment: Speci men Type: BLOOD SPECIMENOrdering Facility: [facility] Address: [address] [place] [address] [place] [address] Performed By: #### 3 4528-0, 74169-2 ####[facility] [id number] [place] [id number] [facility] THERAPY NTon 08-10-2024 THERAPY NT HNO ID: [id number] Author: WANDY CARSON, OT/L Service: Occupational Therapy Author Type: Occupational Therapist Type: Therapy (PT/OT/Speech/Resp) Filed: 08/10/2024 15:55 Note Text: Occupational Therapy Evaluation Summary SERVICE DATE: 08/10/2024 SERVICE TIME: 1522 to 1548 ROOM: [place] [address] OT 6 Clicks Score: 21 DISCHARGE RECOMMENDATIONS [...] completes Equipment Owned: Cane, Grab Bars- Shower, University Administrator, Long Handled Sponge PRIOR FUNCTIONAL LEVEL Within Functional Limits Independnet with ADLS IADLS. No device. + driving Baseline Cognition: Oriented to self, Oriented to place, Oriented to time SUBJECTIVE agreed to OT COGNITION Responsiveness: Alert, Awake Follows Commands: 3-step Commands 4AT Score: 0 (08/10/24) Delirium Positive/Negative: Negative (08/10/24) THERAPY DIAGNOSIS Decreased activities of daily living (ADL) TREATMENT INTERVENTIONS Evaluation, Self Half-Way Management (09874) Timed Code Treatment (minutes): 11 Skilled Treatment [...] DATE: August 10, 2024 TIME: 3:55 PM [facility] THERAPY NT HNO ID: [id number] Author: VERA CUMMINS, PT, DPT Service: Physical Therapy Author Type: Physical Therapist Type: Therapy (PT/OT/Speech/Resp) Filed: 08/10/2024 14:16 Note Text: Summary: PT evaluation Physical Therapy Evaluation Summary SERVICE DATE: 08/10/2024 SERVICE TIME: 1303 to 1356 ROOM: [id number]- PT 6 Clicks Score: 21 DISCHARGE RECOMMENDATIONS [...] to see if they have them to roll picker today for her to use. Pt [...] this is where she fell)) Tub/Shower Type: [facility] with and [facility] Laundry: first floor patient completes Equipment Owned: Cane PRIOR FUNCTIONAL LEVEL Within Functional Limits Indeoendnet with ADLS IADLS. No device. + dirving SUBJECTIVE Pt reports I have been waiting for you. THERAPY DIAGNOSIS Reduced mobility-other, Unsteadiness on feet, Difficulty walking-musculoskeletal , Muscle Weakness (generalized) TREATMENT INTERVENTIONS Evaluation, Therapeutic Activity (48606), Gait Training (58139) Timed Code Treatment (minutes): 38 Skilled Treatment Time (minutes): 38 $ Evaluation-Low (38384) Billed Units: 1 unit Therapeutic Activity (03124) Treatment Minutes: 15 $ Therapeutic Activity (44089) Billed Units: 1 unit Gait Training (05798) Treatment Minutes: 23 $ Gait Training (01118) Billed Units: 2 units TRAINING AND EDUCATION [...] then picke (more content not included)... Normal [facility] THERAPY NT HNO ID: [id number] Author: WANDY CARSON OT/Anna Service: Occupational Therapy Author Type: Occupational Therapist Type: Therapy (PT/OT/Speech/Resp) Filed: 08/10/2024 11:45 Note Text: OCCUPATIONAL THERAPY MISSED VISIT SERVICE DATE: 08/10/2024 SERVICE TIME: 1144 ROOM: [place] [address] Patient not seen due to Clinical Appropriateness. Awaiting MRI results and ortho consult prior to OT evaluation. SIGNATURE: MARILIN Clemente PATIENT NAME: Helen Lieberman DATE: August 10, 2024 TIME: 11:45 AM [facility] THERAPY NT HNO ID: [id number] Author: VERA CUMMINS PT, DPT Service: Physical Therapy Author Type: Physical Therapist Type: Therapy (PT/OT/Speech/Resp) Filed: 08/10/2024 11:38 Note Text: Summary: PT missed PHYSICAL THERAPY MISSED VISIT SERVICE DATE: 08/10/2024 SERVICE TIME: 1136 ROOM: [place] [address] Patient not seen due to ordered an MRI for left femur, will wait until MRI results are in, is WBAT on Left LE, but ortho is on consult. Will hold at this time, RN will be updated. SIGNATURE: Vera Cummins PT, DPT PATIENT NAME: Helen Lieberman DATE: August 10, 2024 TIME: 11:37 AM [facility] aPTT PPPon 08-10-2024 aPTT Coag (PPP) [Time] 35.3 s High 23.0-32.4 [facility] Comment on above: Order Comment: Speci men Type: BLOOD SPECIMENOrdering Facility: [facility] Address: [address] [place] [address] Performed By: #### 3 4528-0, 80460-8 ####[facility] [id number] [place] [address] [place] ALLIED HEALTHon 08-09-2024 ALLIED HEALTH HNO ID: [id number] Author: JORDIN LIU, TECHNOLOGIST Service: Radiology Author [...] PATIENT PRESENTS WITH AN IMPLANTABLE OR ATTACHED DRYWALL SPRAYER: No RADIOLOGY DEPARTMENT: CT; Exam(s) Completed: LT hip PERIPHERAL IV DATA: Not applicable SIGNED BY: Jordin Liu, TECHNOLOGIST August 09, 2024 7:01 PM Normal [facility] CBC W Auto Differential pane l (Bld)on 08-09-2024 Basophils (Bld) [#/Vol] 0.04 10*3/uL Normal <0.11 [facility] Comment on above: Order Comment: Speci men Type: BLOOD SPECIMENOrdering Facility: [facility] Address: [address] [place] [address] Performed By: #### 5 7021-8 ####[facility] [id number] [place] [address] [place] Basophils/100 WBC (Bld) 0.6 % Normal [facility] Comment on above: Order Comment: Speci men Type: BLOOD SPECIMENOrdering Facility: [facility] Address: [address] [place] [address] Performed By: #### 5 7021-8 ####[facility] [id number] [place] [address] [place] Differential cell count method Nom (Bld) Auto Normal [facility] Comment on above: Order Comment: Speci men Type: BLOOD SPECIMENOrdering Facility: [facility] Address: [address] [place] [address] Performed By: #### 5 7021-8 ####[facility] [id number] [address] [place] Eosinophils (Bld) [#/Vol] 0.13 10*3/uL Normal <0.46 [facility] Comment on above: Order Comment: Speci men Type: BLOOD SPECIMENOrdering Facility: [facility] Address: [address] [place] [address] Performed By: #### 5 7021-8 ####[facility] [id number] [address] [place] Eosinophils/100 WBC (Bld) 1.9 % Normal [facility] Comment on above: Order Comment: Speci men Type: BLOOD SPECIMENOrdering Facility: [facility] Address: [address] [place] [address] Performed By: #### 5 7021-8 ####[facility] [id number] [address] [place] Erythrocyte distribution width (RBC) [Ratio] 12.4 % Normal 11.5-15.0 [facility] Comment on above: Order Comment: Speci men Type: BLOOD SPECIMENOrdering Facility: [facility] Address: [address] [place] [address] Performed By: #### 5 7021-8 ####[facility] [id number] [address] [place] Hematocrit (Bld) [Volume fraction] 38.5 % Normal 36.0-46.0 [facility] Comment on above: Order Comment: Speci men Type: BLOOD SPECIMENOrdering Facility: [facility] Address: [address] [place] [address] Performed By: #### 5 7021-8 ####[facility] [id number] [place] [address] [place] Hemoglobin (Bld) [Mass/Vol] 13.0 g/dL Normal 11.5-15.5 [facility] Comment on above: Order Comment: Speci men Type: BLOOD SPECIMENOrdering Facility: [facility] Address: [address] [place] [address] Performed By: #### 5 7021-8 ####[facility] [id number] [place] [address] [place] Immature granulocytes (Bld) [#/Vol] 10*3/uL Normal <0.10 [facility] Comment on above: Order Comment: Speci men Type: BLOOD SPECIMENOrdering Facility: [facility] Address: [address] [place] [address] Performed By: #### 5 7021-8 ####[facility] [id number] [place] [address] [place] Immature granulocytes/100 WBC (Bld) 0.3 % Normal [facility] Comment on above: Order Comment: Speci men Type: BLOOD SPECIMENOrdering Facility: [facility] Address: [address] [place] [address] Performed By: #### 5 7021-8 ####[facility] [id number] [place] [address] [place] Lymphocytes (Bld) [#/Vol] 1.73 10*3/uL Normal 1.00-4.00 [facility] Comment on above: Order Comment: Speci men Type: BLOOD SPECIMENOrdering Facility: [facility] Address: [address] [place] [address] Performed By: #### 5 7021-8 ####[facility] [id number] [address] [place] Lymphocytes/100 WBC (Bld) 25.7 % Normal [facility] Comment on above: Order Comment: Speci men Type: BLOOD SPECIMENOrdering Facility: [facility] Address: [address] [place] [address] Performed By: #### 5 7021-8 ####[facility] [id number] [place] [address] [place] MCH (RBC) [Entitic mass] 32.4 pg Normal 26.0-34.0 [facility] Comment on above: Order Comment: Speci men Type: BLOOD SPECIMENOrdering Facility: [facility] Address: [address] [place] [address] Performed By: #### 5 7021-8 ####[facility] [id number] [address] [place] MCHC (RBC) [Mass/Vol] 33.8 g/dL Normal 30.5-36.0 [facility] Comment on above: Order Comment: Speci men Type: BLOOD SPECIMENOrdering Facility: [facility] Address: [address] [place] [address] Performed By: #### 5 7021-8 ####[facility] [id number] [place] [address] [place] MCV (RBC) [Entitic vol] 96.0 fL Normal 80.0-100.0 [facility] Comment on above: Order Comment: Speci men Type: BLOOD SPECIMENOrdering Facility: [facility] Address: [address] [place] [address] Performed By: #### 5 7021-8 ####[facility] [id number] [place] [address] [place] Monocytes (Bld) [#/Vol] 0.64 10*3/uL Normal <0.87 [facility] Comment on above: Order Comment: Speci men Type: BLOOD SPECIMENOrdering Facility: [facility] Address: [address] [place] [address] Performed By: #### 5 7021-8 ####[facility] [id number] [address] Monocytes/100 WBC (Bld) 9.5 % Normal [facility] Comment on above: Order Comment: Speci men Type: BLOOD SPECIMENOrdering Facility: [facility] Address: [address] [place] [address] Performed By: #### 5 7021-8 ####[facility] [id number] [place] [address] [place] Neutrophils (Bld) [#/Vol] 4.18 10*3/uL Normal 1.45-7.50 [facility] Comment on above: Order Comment: Speci men Type: BLOOD SPECIMENOrdering Facility: [facility] Address: [address] [place] [address] Performed By: #### 5 7021-8 ####[facility] [id number] [place] [address] [place] Neutrophils/100 WBC (Bld) 62.0 % Normal [facility] Comment on above: Order Comment: Speci men Type: BLOOD SPECIMENOrdering Facility: [facility] Address: [address] [place] [address] Performed By: #### 5 7021-8 ####[facility] [id number] [place] [address] [place] Nucleated RBC (Bld) [#/Vol] 10*3/uL Normal <0.01 [facility] Comment on above: Order Comment: Speci men Type: BLOOD SPECIMENOrdering Facility: [facility] Address: [address] [place] [address] Performed By: #### 5 7021-8 ####[facility] [id number] [address] [place] Nucleated RBC/100 WBC (Bld) [Ratio] 0.0 /100 WBC Normal [facility] Comment on above: Order Comment: Speci men Type: BLOOD SPECIMENOrdering Facility: [facility] Address: [address] [place] [address] Performed By: #### 5 7021-8 ####[facility] [id number] [place] [address] [place] Platelet mean volume (Bld) [Entitic vol] 8.7 fL Low 9.0-12.7 [facility] Comment on above: Order Comment: Speci men Type: BLOOD SPECIMENOrdering Facility: [facility] Address: [address] [place] [address] Performed By: #### 5 7021-8 ####[facility] [id number] [place] [address] [place] Platelets (Bld) [#/Vol] 302 10*3/uL Normal 150-400 [facility] Comment on above: Order Comment: Speci men Type: BLOOD SPECIMENOrdering Facility: [facility] Address: [address] [place] [address] Performed By: #### 5 7021-8 ####[facility] [id number] [place] [address] [place] RBC (Bld) [#/Vol] 4.01 10*6/uL Normal 3.90-5.20 [facility] Comment on above: Order Comment: Speci men Type: BLOOD SPECIMENOrdering Facility: [facility] Address: [address] [place] [address] Performed By: #### 5 7021-8 ####[facility] [id number] [place] [id number] [place] WBC (Bld) [#/Vol] 6.74 10*3/uL Normal 3.70-11.00 [facility] Comment on above: Order Comment: Speci men Type: BLOOD SPECIMENOrdering Facility: [facility] Address: [address] [place] [address] Performed By: #### 5 7021-8 ####[facility] [id number] [address] OF [facility] CT HIP WO IVCON LTon 024 CT HIP WO IVCON LT * * *Final Report* * * DATE OF EXAM: Aug 09 2024 7:17PM [facility] 0079 - CT HIP WO IVCON LT [...] left hamstring musculature extending below the included xjfmq-yf-dnpr suggesting hematoma and strain, suboptimally evaluated by CT. No gross tear of the left hamstring tendons on suboptimal evaluation. No muscle atrophy. Proximal left sciatic nerve is normal caliber with preserved perineural fat. Moderate to severe atherosclerotic calcifications. Included pelvis appears unremarkable. IMPRESSION: 1. No acute osseous abnormality left hip. 2. Heterogeneity of the left hamstring musculature extending below the included xfyrq-af-rusk suggesting hematoma from strain. Unclear tear of the left hamstring tendons. This is suboptimally evaluated on CT. Recommend outpatient MRI for better evaluation. Stripper Soft Plastic: PSCB Transcribe Date/Time: Aug 09 2024 9:02P Dictated by : TIERA GUTIERREZ MD This examination was interpreted and the report reviewed and electronically signed by: TIERA GUTIERREZ MD on Aug 09 2024 9:12PM EST [id number] Normal [facility] Comprehensive metabolic 2000 panelon 08-09-2024 Albumin [Mass/Vol] 4.2 g/dL Normal 3.9-4.9 [facility] Comment on above: Order Comment: Marti hankins Type: BLOOD SPECIMEN [facility] Address: [address] [place] [address] Performed By: #### 5 8410-2 #### [facility] CLIA [id number] [address] STATES OF [facility] ALP [Catalytic activity/Vol] 68 U/L Normal 34-123 [facility] Comment on above: Order Comment: Marti hankins Type: BLOOD SPECIMEN [facility] Address: [address] [place] [address] Performed By: #### 5 8410-2 #### [facility] CLIA [id number] [address] [place] [address] [place] ALT [Catalytic activity/Vol] 14 U/L Normal 7-38 [facility] Comment on above: Order Comment: Marti [facility] Type: BLOOD SPECIMEN [facility] Address: [address] [place] [address] Performed By: #### 5 8410-2 #### [facility] CLIA [id number] [address] [place] [address] [place] [facility] Anion gap [Moles/Vol] 9 mmol/L Normal 8-15 [facility] Comment on above: Order Comment: Speci men Type: BLOOD SPECIMEN [facility] Address: [address] [place] [address] Performed By: #### 5 8410-2 #### [facility] CLIA [id number] [address] [place] [address] [place] AST [Catalytic activity/Vol] 22 U/L Normal 13-35 [facility] Comment on above: Order Comment: Speci men Type: BLOOD SPECIMEN [facility] Address: [address] [place] [address] Performed By: #### 5 8410-2 #### [facility] CLIA [id number] [address] [place] [address] [place] Bilirubin [Mass/Vol] 0.7 mg/dL Normal 0.2-1.3 [facility] Comment on above: Order Comment: Speci men Type: BLOOD SPECIMEN [facility] Address: [address] [place] [address] Performed By: #### 5 8410-2 #### [facility] CLIA [id number] [address] [place] [address] [place] Calcium [Mass/Vol] 9.5 mg/dL Normal 8.5-10.2 [facility] Comment on above: Order Comment: Speci men Type: BLOOD SPECIMEN [facility] Address: [address] [place] [address] Performed By: #### 5 8410-2 #### [facility] CLIA [id number] [address] [place] [address] [place] Chloride [Moles/Vol] 92 mmol/L Low 98-107 [facility] Comment on above: Order Comment: Speci men Type: BLOOD SPECIMEN [facility] Address: [address] [place] [address] Performed By: #### 5 8410-2 #### [facility] CLIA [id number] [address] [place] [address] [place] CO2 [Moles/Vol] 28 mmol/L Normal 22-30 [facility] Comment on above: Order Comment: Speci men Type: BLOOD SPECIMEN [facility] Address: [address] [place] [address] Performed By: #### 5 8410-2 #### [facility] CLIA [id number] [address] Creatinine [Mass/Vol] 0.84 mg/dL Normal 0.58-0.96 [facility] Comment on above: Order Comment: Shanika cr Type: BLOOD SPECIMEN [facility] Address: [address] [place] [address] Performed By: #### 5 8410-2 #### [facility] CLIA [id number] [address] Creatinine and Glomerular filtration rate.predicted panel (S/P/Bld) 67 mL/min/1.73m??? Normal >=60 [facility] Comment on above: Order Comment: Marti [facility] Type: BLOOD SPECIMEN [facility] Address: [address] [place] [address] Result Comment: Dolores mated Glomerular Filtration Rate [...] GFR. Performed By: #### 5 8410-2 #### [facility] CLIA [id number] [address] [place] Glucose [Mass/Vol] 119 mg/dL High 74-99 [facility] Comment on above: Order Comment: Marti [facility] Type: BLOOD SPECIMEN [facility] Address: [address] [place] [address] Result Comment: The [place] [employer] (ADA) provides guidance for cutoff [...] Standards of Medical Care in Diabetes 2016, [place] Diabetes Association. Diabetes Care. 2016.39(Suppl 1). Performed By: #### 5 8410-2 #### [facility] CLIA [id number] [address] STATES OF [facility] Potassium [Moles/Vol] 5.0 mmol/L Normal 3.7-5.1 [facility] Comment on above: Order Comment: Shanikai cr Type: BLOOD SPECIMEN [facility] Address: [address] [place] [address] Performed By: #### 5 8410-2 #### [facility] CLIA [id number] [address] Protein [Mass/Vol] 7.2 g/dL Normal 6.3-8.0 [facility] Comment on above: Order Comment: Shanikai cr Type: BLOOD SPECIMEN [facility] Address: [address] [place] [address] Performed By: #### 5 8410-2 #### [facility] CLIA [id number] [address] Sodium [Moles/Vol] 129 mmol/L Low 136-144 [facility] Comment on above: Order Comment: Marti hankins Type: BLOOD SPECIMEN [facility] Address: [address] [place] [address] Performed By: #### 5 8410-2 #### [facility] CLIA [id number] [address] Urea nitrogen [Mass/Vol] 14 mg/dL Normal 7-21 [facility] Comment on above: Order Comment: Shanikai cr Type: BLOOD SPECIMEN [facility] Address: [address] [place] [address] Performed By: #### 5 8410-2 #### [facility] CLIA [id number] [address] [place] ECG COMPLETEon 11-14-2024 ECG COMPLETE Ventricular Rate : 6 7 BPM Atrial Rate : 67 BPM P-R Interval : 212 ms QRS Duration : 80 ms Q-T Interval : 406 ms QTC Calculation(Bazett) : 429 ms Calculated P Marcus : 106 degrees Calculated R Marcus : 37 degrees Calculated T Marcus : 45 degrees SINUS RHYTHM WITH 1ST DEGREE A-V BLOCK OTHERWISE NORMAL ECG NO STEMI Confirmed by SHERINE DAAME DO ([id number]), editor city TAJ NELSON ([id number]) on 08/10/2024 1:06:45 PM NAME : HELEN LIEBERMAN PID : [id number] : 1935 Gender : Female Race : ORD : [id number] Procedure Date : Aug 09 2024 16:46:07 Edit Date : Aug 10 2024 13:06:48 Diagnosis: SINUS RHYTHM WITH 1ST DEGREE A-V BLOCK OTHERWISE NORMAL ECG NO STEMI Confirmed by SHERINE ADAME DO ([id number]), editor city TAJ NELSON ([id number]) on 08/10/2024 1:06:45 PM Test Reason : Chest Pain Location : 1 : ER ED Overread By : SHERINE ADAME DO Edited By : TAJ NELSON Referred By : , Acquired by : [facility] ED NOTEon 08-09-2024 ED NOTE HNO ID: [id number] Author: TARAH REINOSO RN Service: Nursing Author Type: Registered Nurse Type: ED Notes Filed: 08/09/2024 22:14 Note Text: [facility] ED NOTE HNO ID: [id number] Author: TARAH REINOSO RN Service: ? 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 Exam conducted with a director of health education present (Staff). Constitutional: General: She is awake. [...] ear normal. Nose: Nose normal. Mouth/Throat: Lips: [place]. Mouth: Mucous membranes are moist. Pharynx: Oropharynx [...] forearm: Normal (more content not included)... Normal [facility] HIGH SENSITIVITY TROPONIN T (INITIAL)on 08-09-2024 Troponin T.cardiac High sensitivity method [Mass/Vol] 18 ng/L High <[address] [place] [address] Comment on above: Order Comment: Marti hankins Type: BLOOD SPECIMEN [facility] Address: [address] [place] [address] Performed By: #### 5 8410-2 #### [facility] CLIA [id number] [address] HIGH SENSITIVITY TROPONIN T (SECOND)on 08-09-2024 Troponin T.cardiac High sensitivity method [Mass/Vol] 17 ng/L High <[address] [place] [address] Comment on above: Order Comment: Marti hankins Type: BLOOD SPECIMENOrdering Facility: [facility] Address: [address] [place] [address] Performed By: #### L [id number] ####[facility]IA [id number] [place] [address] HIGH SENSITIVITY TROPONIN T (THIRD) 3 HRS AFTER INITIALon 08-09-2024 Troponin T.cardiac High sensitivity method [Mass/Vol] 17 ng/L High <[address] [place] [address] Comment on above: Order Comment: Marti hankins Type: BLOOD SPECIMEN [facility]ing Facility: [facility] Address: [address] [place] [address] Performed By: #### 5 8410-2 #### [facility] CLIA [id number] [address] [place] [address] HISTORY PHYSICALon HISTORY PHYSICAL HNO ID: [id number] Author: VERA OLSEN PA-C Service: Hospital Medicine Author Type: Physician Bed Spring Maker Type: H&P Filed: 08/09/2024 23:10 Note Text: Attestation signed by Shirley Bowen MD at 08/09/2024 11:39 PM Discussed with provider below and I agree with their history exam assessment and plan. Shirley Bowen MD DEPARTMENT OF HOSPITAL MEDICINE HISTORY AND PHYSICAL EXAM SERVICE DATE: 08/09/2024 SERVICE TIME: 11:08 PM Primary Care Physician: Tanya Lozano APRN.[facility] NIGHT AND WEEKEND COVERAGE: [facility]: Days: [phone], please page attending physician. Nights: [phone], please page [place] [facility] Night coverage pager [phone]. Subjective CHIEF COMPLAINT: fall, left hip pain [...] left hamstring musculature extending below the included [id number] suggesting hematoma from strain. Unclear tear of the left hamstring tendons. This is suboptimally evaluated on CT. Recommend outpatient MRI for better evaluation. Patient given 1L NS bolus, Dtap, Coreg, Tylenol. ED physician spoke to Ortho who agrees to see the patient in consult. Patient admitted to [facility] under the hospital medicine service for management [...] Penicillins Unknown (more content not included)... Normal [facility] Magnesium [facility] 08-09 Magnesium [Mass/Vol] 1.9 mg/dL Normal 1.7-2.3 [facility] Comment on above: Order Comment: Marti hankins Type: BLOOD SPECIMEN [facility]ing Facility: [facility] Address: [address] [place] [address] Performed By: #### 5 8410-2 #### [facility] CLIA [id number] [address] [place] NT-proBNP [facility] 08-09 Natriuretic peptide.B prohormone N-Terminal [Mass/Vol] 815 pg/mL High <450 [facility] Comment on above: Order Comment: Marti hankins Type: BLOOD SPECIMEN [facility]ing Facility: [facility] Address: [address] [place] [address] Performed By: #### 5 8410-2 #### [facility] CLIA [id number] [address] [place] [address] [place] PT panel Coag (PPP)on 2023 INR Coag (PPP) [Relative time] 3.0 {INR} High 0.9-1.3 [facility] Comment on above: Order Comment: Marti hankins Type: BLOOD SPECIMEN [facility]ing Facility: [facility] Address: [address] [place] [address] Result Comment: Mirna min K Antagonist (VKA) Therapeutic Range: INR 2 to 3 (Target INR of 2.5) Note: For patients treated with VKA drugs, such as warfarin, the [employer] 2012 Guideline recommends [...] Chest 2012, 141:7S-47S Jayce ALVARADO et al. [facility] 2017, 70: 252-289 Performed By: #### 5 8410-2 #### [facility] CLIA [id number] [address] [place] PT Coag (PPP) [Time] 28.9 s High 9.7-13.0 [facility] Comment on above: Order Comment: Marti hnakins Type: BLOOD SPECIMEN [facility] Facility[facility] Address: [address] [place] [address] Performed By: #### 5 8410-2 #### [facility] CLIA [id number] [address] [place] Urate SerPl-mCncon Urate [Mass/Vol] 2.8 mg/dL Normal 2.5-6.6 [facility] Comment on above: Order Comment: Marti hankins Type: BLOOD SPECIMEN [facility] Facility[facility] Address: [address] [place] [address] Performed By: #### 5 8410-2 #### [facility] CLIA [id number] [address] [place] Urinalysis complete panel (U )on 08-09-2024 Bacteria LM.HPF (Urine sed) [#/Area] None Seen Normal None Seen [facility] Comment on above: Order Comment: Speci men Type: URINE SPECIMENOrdering Facility: [facility] Address: [address] [place] [address] Performed By: #### 2 4356-8 ####[facility] [id number] [place] [address] [place] Bilirubin Ql (U) Negative Normal Negative [facility] Comment on above: Order Comment: Speci men Type: URINE SPECIMENOrdering Facility: [facility] Address: [address] [place] [address] Performed By: #### 2 4356-8 ####[facility] [id number] [address] [place] Clarity (Unsp spec) Clear Normal Clear [facility] Comment on above: Order Comment: Speci men Type: URINE SPECIMENOrdering Facility: [facility] Address: [address] [place] [address] Performed By: #### 2 4356-8 ####[facility] [id number] [address] [place] Color (U) Yellow Normal Yellow [facility] Comment on above: Order Comment: Speci men Type: URINE SPECIMENOrdering Facility: [facility] Address: [address] [place] [address] Performed By: #### 2 4356-8 ####[facility] [id number] [address] Epithelial cells LM.HPF (Urine sed) [#/Area] Few Normal [facility] Comment on above: Order Comment: Speci men Type: URINE SPECIMENOrdering Facility: [facility] Address: [address] [place] [address] Performed By: #### 2 4356-8 ####[facility] [id number] [address] [place] Glucose Test strip (U) [Mass/Vol] Negative Normal Negative [facility] Comment on above: Order Comment: Speci men Type: URINE SPECIMENOrdering Facility: [facility] Address: [address] [place], [place] [address] Performed By: #### 2 4356-8 ####[facility] [id number] [place] [address] [place] Hemoglobin Ql (U) Trace Abnormal Negative [facility] Comment on above: Order Comment: Speci men Type: URINE SPECIMENOrdering Facility: [facility] Address: [address] [place] [address] Performed By: #### 2 4356-8 ####[facility] [id number] [place] [address] [place] Ketones Ql (U) Negative Normal Negative [facility] Comment on above: Order Comment: Speci men Type: URINE SPECIMENOrdering Facility: [facility] Address: [address] [place] [address] Performed By: #### 2 4356-8 ####[facility] [id number] [address] Leukocyte esterase Test strip Ql (U) Negative Normal Negative [facility] Comment on above: Order Comment: Speci men Type: URINE SPECIMENOrdering Facility: [facility] Address: [address] [place] [address] Performed By: #### 2 4356-8 ####[facility] [id number] [address] STATES [facility] Nitrite Ql (U) Negative Normal Negative [facility] Comment on above: Order Comment: Speci men Type: URINE SPECIMENOrdering Facility: [facility] Address: [address] [place] [address] Performed By: #### 2 4356-8 ####[facility] [id number] [address] [place] pH (U) 7.5 [pH] Normal 5.0-8.0 [facility] Comment on above: Order Comment: Speci men Type: URINE SPECIMENOrdering Facility: [facility] Address: [address] [place] [address] Performed By: #### 2 4356-8 ####[facility] [id number] [address] [place] Protein (U) [Mass/Vol] Negative Normal Negative [facility] Comment on above: Order Comment: Speci men Type: URINE SPECIMENOrdering Facility: [facility] Address: [address] [place] [address] Performed By: #### 2 4356-8 ####[facility] [id number] [place] [address] [place] RBC LM.HPF (Urine sed) [#/Area] 0-3 /HPF Normal 0-3 /HPF [facility] Comment on above: Order Comment: Speci men Type: URINE SPECIMENOrdering Facility: [facility] Address: [address] [place] [address] Performed By: #### 2 4356-8 ####[facility] [id number] [address] Specific gravity (U) [Rel density] 1.010 Normal 1.005-1.030 [facility] Comment on above: Order Comment: Speci men Type: URINE SPECIMENOrdering Facility: [facility] Address: [address] [place] [address] Performed By: #### 2 4356-8 ####[facility] [id number] [address] Urobilinogen Ql (U) 0.2 EU/dL Normal 0.2-1.0 EU/dL [facility] Comment on above: Order Comment: Speci men Type: URINE SPECIMENOrdering Facility: [facility] Address: [address] [place] [address] Performed By: #### 2 4356-8 ####[facility] [id number] [address] [place] WBC LM.HPF (Urine sed) [#/Area] 0-5 /HPF Normal 0-5 /HPF [facility] Comment on above: Order Comment: Speci men Type: URINE SPECIMENOrdering Facility: [facility] Address: [address] [place] [address] Performed By: #### 2 4356-8 ####[facility] [id number] [place] [address] [place] XR CHEST 1V [...] shoulder DJD. IMPRESSION: No acute cardiopulmonary process. Stripper Soft Plastic: JUANAiming Transcribe Date/Time: Aug 09 2024 6:13P Dictated by : TROY OROZCO MD This examination was interpreted and the report reviewed and electronically signed by: TROY OROZCO MD on Aug 09 2024 6:14PM EST [id number] [facility] XR FEMUR 2V AP/LAT LTon 07-27 XR [...] acute abnormality. IMPRESSION: No acute osseous abnormality. Stripper Soft Plastic: Seeking [employer] Transcribe Date/Time: Aug 09 2024 6:11P Dictated by : TROY OROZCO MD This examination was interpreted and the report reviewed and electronically signed by: TROY OROZCO MD on Aug 09 2024 6:12PM EST [id number] [facility] XR HIP 3V PELV+ AP/LAT LTon 08-09-2024 [...] acute abnormality. IMPRESSION: No acute osseous abnormality. Stripper Soft Plastic: PSCB Transcribe Date/Time: Aug 09 2024 6:11P Dictated by : TROY OROZCO MD This examination was interpreted and the report reviewed and electronically signed by: TROY OROZCO MD on Aug 09 2024 6:12PM EST [id number] [facility] aPTT PPPon 08-09-2024 aPTT Coag (PPP) [Time] 41.5 s High 23.0-32.4 [facility] Comment on above: Order Comment: Speci men Type: BLOOD SPECIMEN [facility] Address: [address] [place] [address] Performed By: #### 5 8410-2 #### [facility] CLIA [id number] [address] [place] [address] [facility] CNNURSEon 07-18-2024 CNNURSE Nurse Visit (AGINTML W) SHELLHELEN HUNTER ([id number]) 1935 F Date Time Provider Department 07/18/24 [...] Corrine Birmingham LPN Referring Provider: TANYA LOZANO [[id number]] Allergies As of Date: 07/18/2024 Noted Allergy Reaction PENICILLINS 07/24/2021 16 - Unknown SULFA (SULFONAMIDE ANTIBIOTICS) 07/24/2021 16 - Unknown TETRACYCLINES 07/24/2021 16 - Unknown Date Reviewed: 10/06/2023 Reviewed by: Tanya Lozano, WIRE BENDER.PHOTOENGRAVING SUPERVISOR - Fully Assessed Reason for Visit: Coumadin/INR [1207] Primary Visit Diagnosis:Paroxysmal atrial fibrillation (HCC) [I48.0] Order(s):INR (POC) [6217020] Order #: [id number] #:[id number] INR (POC) [8676199] Order #: [id number] Prescriptions as of 07/18/2024 - carvedilol (COREG) [...] Status:Closed by CORRINE BIRMINGHAM on 07/18/24 Normal [facility] INR (POC)on 07-18-2024 INR Coag (PPP) [Relative time] 2.3 {INR} High 0.8 - 1.2 [facility] Internal Quality Check Acceptable [facility] Interpretation and review of laboratory results Abnormal [facility] Location:[facility], [address] [place] [address], [address] [facility] POINT OF CARE [facility] INR (POC)on 05-07-2024 INR Coag (PPP) [Relative time] 2.3 {INR} High 0.8 - 1.2 [facility] Internal Quality Check Acceptable [facility] Interpretation and review of laboratory results Abnormal [facility] Location:[facility], [address] [place] [address], [address] [facility] POINT OF CARE [facility] INR (POC)on 04-23-2024 INR Coag (PPP) [Relative time] 1.9 {INR} High 0.8 - 1.2 [facility] Internal Quality Check Acceptable [facility] Interpretation and review of laboratory results Abnormal [facility] Location:[facility], [address] [place] [address], [address] [facility] POINT OF CARE [facility] INR (POC)on 03-26-2024 INR Coag (PPP) [Relative time] 1.9 {INR} High 0.8 - 1.2 [facility] Internal Quality Check Acceptable [facility] Interpretation and review of laboratory results Abnormal [facility] Location:[facility], [address] [place] [address], [address] [facility] POINT OF CARE [facility] PT panel Coag (PPP)on 2023 INR Coag (PPP) [Relative time] 2.0 {INR} High 0.9 - 1.3 [facility] PT Coag (PPP) [Time] 20.3 s High 9.7 - 1 3.0 sec [facility] INR (POC)on 12-07-2023 INR Coag (PPP) [Relative time] 1.9 {INR} High 0.8 - 1.2 [facility] Internal Quality Check Acceptable [facility] INR (POC)on 11-30-2023 INR Coag (PPP) [Relative time] 1.9 {INR} High 0.8 - 1.2 [facility] Internal Quality Check Acceptable [facility] INR (POC)on 11-01-2023 INR Coag (PPP) [Relative time] 2.1 {INR} High 0.8 - 1.2 [facility] Internal Quality Check Acceptable [facility] Office-Progress Notes-Pr sariahn 10-03-2023 Amb Office-Progress Notes-Provider DANNY LIEBERMANA :1935 Registration Date:09/29/2023 Chief Complaint FOLLOW UP [facility] History of Present Illness This is a follow-up visit for Mrs. Lieberman after recent admission to [facility] following a syncopal spell. She has paroxysmal [...] Care Team Primary Care Physician TANYA LOZANO [phone] Attending Physician DIDI ZAMAN, CHRISTINA [phone] Normal [facility] Ambulatory Vitals Height Humberto ght-Texton 10-03-2023 Ambulatory Vitals Height Weight-Text Ambulatory Vitals Height Weight Entered On: 10/03/2023 5:44 EST Performed On: 09/29/2023 5:43 EST by CHRISTINA FRANCIS MD Vitals/Ht/Wt Systolic Blood Pressure : 121 mmHg Diastolic Blood Pressure : 72 mmHg CHRISTINA FRANCIS MD - 10/03/2023 5:43 EST Normal [facility] Ambulatory Vitals Height Weight-Text Ambulatory Vitals Height Weight Entered On: 10/03/2023 5:41 EST Performed On: 09/29/2023 5:41 EST by CHRISTINA FRANCIS MD Vitals/Ht/Wt Systolic Blood Pressure : 122 mmHg Diastolic Blood Pressure : 82 mmHg CHRISTINA FRANCIS MD - 10/03/2023 5:41 EST Normal [facility] Provider Letter - Ambulatory on 10-03-2023 Provider Letter - Ambulatory TANYA LOZANO, [address] [place] [id number] RE: HELEN LIEBERMAN - 1935 09/29/2023 Dear [...] contact the office. Sincerely, Bob ABRAHAM, [place] [facility] The following document(s) were included in the letter: September 29, 2023 05:47:00 EST - (09/29/2023) *.AMB Office Visit Note Normal [facility] Ambulatory Clinical Summaryo n 09-29-2023 Ambulatory Clinical [...] for visit Day With Date Time Where [facility] Established Patient 1 6 MONTH CHECK UP Christina Francis MD April 05, 2024 09:00 am EDT CARD [facility] [address] [facility] [address] [place] [id number] Medications What How Much When Instructions New [...] 9-1-1 to get immediate medical attention! Normal [facility] Comprehensive Intake - Texto n 09-29-2023 Comprehensive Intake - Text Comprehensive Intake Entered On: 09/29/2023 8:09 EST Performed On: 09/29/2023 8:07 EST by Xena Rojas MA Summary Chief Complaint : FOLLOW UP [facility] Bladder Control Issues? : No Urine [...] in, 157 cm) Body Mass Index Measured Beninese : 22.49 kg/m2 BSA Beninese : 1.56 m2 Xena Rojas MA - 09/29/2023 8:07 EST Vitals Require BP : No Apical Heart Rate : 64 bpm Temperature Temporal (F) : 97.6 degF(Converted to: 36 degC) Pain Present : No actual or suspected pain Pain : 0 Pain severity quantified : No pain present Xean Rojas MA - 09/29/2023 8:07 EST Infection Screening - Ambulatory Exposure AND/OR close contact with a person under investigation or laboratory-confirmed COVID-19 individual within 14 days of symptom onset AND/OR any of the following: : No Do you live/work in a high risk situation (congregated living, hemodialysis, infusion clinic, mcfp, assisted living, alf, homeless mcc, etc.)? : No Xena Rojas MA - 09/29/2023 8:07 EST Depression Screening [...] Rojas MA - 09/29/2023 8:07 EST Normal [facility] INR (POC)on 07-19-2023 INR Coag (PPP) [Relative time] 2.3 {INR} High 0.8 - 1.2 [facility] Internal Quality Check Acceptable [facility] INR (POC)on 07-11-2023 INR Coag (PPP) [Relative time] 3.8 {INR} High 0.8 - 1.2 [facility] Internal Quality Check Acceptable [facility] INR (POC)on 06-15-2023 INR Coag (PPP) [Relative time] 2.5 {INR} High 0.8 - 1.2 [facility] Internal Quality Check Acceptable [facility] INR (POC)on 06-08-2023 INR Coag (PPP) [Relative time] 3.4 {INR} High 0.8 - 1.2 [facility] Internal Quality Check Acceptable [facility] INR (POC)on 05-05-2023 INR Coag (PPP) [Relative time] 2.9 {INR} High 0.8 - 1.2 [facility] Internal Quality Check Acceptable [facility] INR (POC)on 02-02-2023 INR Coag (PPP) [Relative time] 2.8 {INR} High 0.8 - 1.2 [facility] Internal Quality Check Acceptable [facility] INR (POC)on 01-03-2023 INR Coag (PPP) [Relative time] 2.4 {INR} High 0.8 - 1.2 [facility] Internal Quality Check Acceptable [facility] INR (POC)on 11-04-2022 INR Coag (PPP) [Relative time] 2.3 {INR} High 0.8 - 1.2 [facility] Internal Quality Check Acceptable [facility] INR (POC)on 09-13-2022 INR Coag (PPP) [Relative time] 3.1 {INR} High 0.8 - 1.2 [facility] Internal Quality Check Acceptable [facility] ([facility]OC)on 08-12-2022 INR Coag (PPP) [Relative time] 3.0 {INR} High 0.8 - 1.2 [facility] Internal Quality Check Acceptable [facility] INR (POC)on 07-15-2022 INR Coag (PPP) [Relative time] 2.8 {INR} High 0.8 - 1.2 [facility] Internal Quality Check Acceptable [facility] INR (POC)on 06-03-2022 INR Coag (PPP) [Relative time] 2.9 {INR} High 0.8 - 1.2 [facility] Internal Quality Check Acceptable [facility] INR (POC)on 04-19-2022 INR Coag (PPP) [Relative time] 2.9 {INR} High 0.8 - 1.2 [facility] Internal Quality Check Acceptable [facility] INR (POC)on 03-18-2022 INR Coag (PPP) [Relative time] 2.3 {INR} High 0.8 - 1.2 [facility] Internal Quality Check Acceptable [facility] INR (POC)on 03-04-2022 INR Coag (PPP) [Relative time] 2.3 {INR} High 0.8 - 1.2 [facility] Internal Quality Check Acceptable [facility] INR (POC)on 03-01-2022 INR Coag (PPP) [Relative time] 3.7 {INR} High 0.8 - 1.2 [facility] Internal Quality Check Acceptable [facility] INR (POC)on 02-23-2022 INR Coag (PPP) [Relative time] 1.7 {INR} High 0.8 - 1.2 [facility] Internal Quality Check Acceptable [facility] INR (POC)on 02-16-2022 INR Coag (PPP) [Relative time] 1.7 {INR} High 0.8 - 1.2 [facility] Internal Quality Check Acceptable [facility] CBC panel Auto (Bld)on 01-13 Erythrocyte distribution width (RBC) [Ratio] 12.3 % 11.5 - 15.0 % [facility] Hematocrit (Bld) [Volume fraction] 39.8 % 36.0 - 46.0 % [facility] Hemoglobin (Bld) [Mass/Vol] 13.1 g/dL 11.5 - 15.5 g/dL [facility] MCH (RBC) [Entitic mass] 32.2 pg 26.0 - 34.0 pg [facility] MCHC (RBC) [Mass/Vol] 32.9 g/dL 30.5 - 36.0 g/dL [facility] MCV (RBC) [Entitic vol] 97.8 fL 80.0 - 100.0 fL [facility] Platelet mean volume (Bld) [Entitic vol] 8.9 fL Low 9.0 - 12.7 fL [facility] Platelets (Bld) [#/Vol] 347 10*3/uL 150 - 400 k/uL [facility] RBC (Bld) [#/Vol] 4.07 10*6/uL 3.90 - 5.2 0 m/uL [facility] WBC (Bld) [#/Vol] 8.39 10*3/uL 3.70 - 11. 00 k/uL [facility] INR (POC)on 01-13-2022 INR Coag (PPP) [Relative time] 2.7 {INR} High 0.8 - 1.2 [facility] Internal Quality Check Acceptable [facility] LIPID PANEL BASICon 04-20-20 22 Cholesterol [Mass/Vol] 228 mg/dL High <200 mg/dL [facility] Cholesterol in HDL [Mass/Vol] 37 mg/dL Low >39 mg/dL [facility] Cholesterol in LDL [Mass/Vol] 161 mg/dL High <100 mg/dL [facility] Cholesterol in LDL/Cholesterol in HDL [Mass ratio] 4.35 {ratio} High <2.54 [facility] Cholesterol in VLDL [Mass/Vol] 30 mg/dL High <30 mg/dL [facility] Cholesterol non HDL [Mass/Vol] 191 mg/dL High <130 mg/dL [facility] Cholesterol.total/Jhoana sterol in HDL [Mass ratio] 6.16 {ratio} High <5.10 [facility] Fasting Time 12 hrs [facility] Triglyceride [Mass/Vol] 149 mg/dL <150 mg/dL [facility] TSH Don 01-13-2022 TSH Qn 1.640 m[IU]/L 0.270 - 4.200 mIU/L [facility] INR (POC)on 12-17-2021 INR Coag (PPP) [Relative time] 2.3 {INR} High 0.8 - 1.2 [facility] Internal Quality Check Acceptable [facility] ANES POSTPROC EVALon 021 ANES POSTPROC EVAL HNO ID: [id number] Author: Han German MD Service: Anesthesiology Author [...] August 07, 2021 TIME: 9:10 PM CSN: [id number] [facility] ANES PRE-OPon 08-07-2021 ANES PRE-OP HNO ID: [id number] Author: Nara Hernandez APRN.CRNA Service: Anesthesiology Author Type: Nurse Social Sciences Professor Type: Anesthesia Preprocedure Evaluation Filed: 08/07/2021 1:15 PM Note Text: Attestation signed by Ruslan Sandoval MD at 08/07/2021 1:26 PM I have personally interviewed and examined the patient and agree with the anesthesia assessment and plan, as documented by the HEALTH CARE SPECIALIST. ANESTHESIOLOGY DAY OF SURGERY NOTE : [...] August 07, 2021 TIME: 1:11 PM CSN: [id number] [facility] NURSING PROGon 08-07-2021 NURSING PROG HNO ID: [id number] Author: Arvin Arriaga RN Service: ? Author [...] (RECOMMENDATION): None Electronically Signed By: Arvin Arriaga [facility] NURSING PROG HNO ID: [id number] Author: Ducle Titus RN Service: ? Author Type: Registered Nurse Type: Nursing Progress Note Filed: 08/07/2021 1:31 PM Note Text: PATIENT EDUCATION TOPIC: PROCEDURE / SURGERY: Procedure/Surgery: ERCP PATIENT NAME: Helen Liebreman PATIENT LOCATION: [facility] ENDO POOL/[facility] ENDO POOL [...] (RECOMMENDATION): None Electronically Signed By: Dulce Titus [facility] XR ERCP READ ONLYon 08-07-20 XR ERCP [...] Please see operative report for further details. Stripper Soft Plastic: PSCB Transcribe Date/Time: Aug 07 2021 4:36P Dictated by : MAYITO BURGESS MD This examination was interpreted and the report reviewed and electronically signed by: MAYITO BURGESS MD on Aug 07 2021 4:37PM EST [id number] [facility] Amylaseon 08-03-2021 Amylase [Catalytic activity/Vol] 66 U/L Normal 30-130 [facility] [employer] [facility] Comment on above: Performed By: #### A MY3, CMP3, HEMDF, LIPA4 #### [facility] [address] [place] [address] Amylase [Catalytic activity/Vol] 66 U/L 30 - [...] [#/Vol] 351 10*3/uL 140 - 440 10*3/uL [facility] RBC (Bld) [#/Vol] 4.06 10*6/uL 3.80 - 5.2 0 10*6/uL [facility] WBC (Bld) [#/Vol] 5.0 10*3/uL 3.6 - 10.7 10*3/uL [facility] Test Performed by [facility], [address] , [place], [place] [id number] [place] [address] LAB [facility] Comp Metabolic Panelon 08-03 ALP [Catalytic activity/Vol] 68 U/L Normal 38-126 [facility] Comment on above: Performed By: #### A MY3, CMP3, HEMDF, LIPA4 #### [facility] [address] [place] [address] ALT [Catalytic activity/Vol] 11 U/L Normal 0-34 [facility] Comment on above: Result Comment: The ALT test is performed by an updated assay method. Please note that the reference intervals have been changed and are now sex specific. Performed By: #### A MY3, CMP3, HEMDF, LIPA4 #### [facility] [address] [place] [address] AST [Catalytic activity/Vol] 28 U/L Normal 15-46 [facility] Comment on above: Performed By: #### A MY3, CMP3, HEMDF, LIPA4 #### [facility] [address] [place] [address] Calcium [Mass/Vol] 10.3 mg/dL Normal 8.4-10.4 [facility] Comment on above: Performed By: #### A MY3, CMP3, HEMDF, LIPA4 #### [facility] [address] [place] [address] Glucose [Mass/Vol] 110 mg/dL High 70-100 [facility] Comment on above: Performed By: #### A MY3, CMP3, HEMDF, LIPA4 #### [facility] [address] [place] [address] Anion gap [Moles/Vol] 3 mmol/L Normal 3-13 [facility] Comment on above: Performed By: #### A MY3, CMP3, HEMDF, LIPA4 #### [facility] [address] [place] [address] Bilirubin [Mass/Vol] 1.0 mg/dL Normal 0.2-1.3 [facility] Comment on above: Performed By: #### A MY3, CMP3, HEMDF, LIPA4 #### [facility] [address] [place] [address] CO2 [Moles/Vol] 31 mmol/L High 22-30 [facility] Comment on above: Performed By: #### A MY3, CMP3, HEMDF, LIPA4 #### [facility] [address] [place] [address] Creatinine [Mass/Vol] 0.74 mg/dL Normal 0.52-1.25 [facility] Comment on above: Performed By: #### A MY3, CMP3, HEMDF, LIPA4 #### [facility] [address] [place] [address] GFR/1.73 sq M.predicted among blacks MDRD (S/P/Bld) [Vol rate/Area] 85.7 mL/min/{1.73_m2} Normal >60 [facility] Comment on above: Performed By: #### A MY3, CMP3, HEMDF, LIPA4 #### [facility] [address] [place] [address] GFR/1.73 sq M.predicted among non-blacks MDRD (S/P/Bld) [Vol rate/Area] 74.0 mL/min/{1.73_m2} Normal >60 [facility] Comment on above: Result Comment: KDIG O [...] #### A MY3, CMP3, HEMDF, LIPA4 #### [facility] [address] [place] [address] Protein [Mass/Vol] 7.2 g/dL Normal 6.3-8.2 [facility] Comment on above: Performed By: #### A MY3, CMP3, HEMDF, LIPA4 #### [facility] [address] [place] [address] Urea nitrogen [Mass/Vol] 9 mg/dL Normal 9-20 [facility] Comment on above: Performed By: #### A MY3, CMP3, HEMDF, LIPA4 #### [facility] [address] [place] [address] Potassium [Moles/Vol] 4.6 mmol/L Normal 3.5-5.1 [facility] Comment on above: Performed By: #### A MY3, CMP3, HEMDF, LIPA4 #### [facility] [address] [place] [address] Albumin [Mass/Vol] 4.2 g/dL Normal 3.5-5.0 [facility] Comment on above: Performed By: #### A MY3, CMP3, HEMDF, LIPA4 #### [facility] [address] [place] [address] Chloride [Moles/Vol] 100 mmol/L Normal 98-107 [facility] Comment on above: Performed By: #### A MY3, CMP3, HEMDF, LIPA4 #### [facility] [address] [place] [address] Sodium [Moles/Vol] 134 mmol/L Low 135-145 [facility] Comment on above: Performed By: #### A MY3, CMP3, HEMDF, LIPA4 #### [facility] [address] [place] [address] [facility] 08-03-2021 Albumin [Mass/Vol] 4.2 g/dL [...] - 1.25 mg/dL [facility] EGFR IF NonAfrican Brazilian 74.0 mL/min >60 [facility] Comment on above: [...] MDRD (S/P/Bld) [Vol rate/Area] 85.7 mL/min/{1.73_m2} >60 [facility] Glucose [Mass/Vol] 110 mg/dL High 70 - 100 mg/dL [facility] Interpretation and review of laboratory results Abnormal [facility] Potassium [Moles/Vol] 4.6 mmol/L 3.5 - 5.1 mmol/L [facility] Sodium [Moles/Vol] 134 mmol/L Low 135 - 145 mmol/L [facility] Urea nitrogen (BldV) [Mass/Vol] 9 mg/dL 9 - 20 mg/dL [facility] Hemogram w/ Autodiffon 08-03 Abs Baso Cnt 0.0 10*3/uL Normal 0.0-0.2 [facility] Comment on above: Performed By: #### A MY3, CMP3, HEMDF, LIPA4 #### [facility] [address] [place] [address] Abs Neutrophile Cnt 3.1 10*3/uL Normal 1.8-7.0 [facility] Comment on above: Performed By: #### A MY3, CMP3, HEMDF, LIPA4 #### [facility] [address] [place] [address] Basophils/100 WBC (Bld) 0.5 % Normal 0.0-2.0 [facility] Comment on above: Performed By: #### A MY3, CMP3, HEMDF, LIPA4 #### [facility] [address] [place] [address] Eosinophils (Bld) [#/Vol] 0.1 10*3/uL Normal 0.0-0.5 [facility] Comment on above: Performed By: #### A MY3, CMP3, HEMDF, LIPA4 #### [facility] [address] [place] [address] Eosinophils/100 WBC (Bld) 2.4 % Normal 1.0-6.0 [facility] Comment on above: Performed By: #### A MY3, CMP3, HEMDF, LIPA4 #### [facility] [address] [place] [address] Erythrocyte distribution width (RBC) [Ratio] 14.4 % Normal 11.5-14.5 [facility] Comment on above: Performed By: #### A MY3, CMP3, HEMDF, LIPA4 #### [facility] [address] [place] [address] Granulocytes/100 WBC (Bld) 61.6 % Normal 40.0-80.0 [facility] Comment on above: Performed By: #### A MY3, CMP3, HEMDF, LIPA4 #### [facility] [address] [place] [address] Hematocrit (Bld) [Volume fraction] 37.5 % Normal 35.0-47.0 [facility] Comment on above: Performed By: #### A MY3, CMP3, HEMDF, LIPA4 #### [facility] [address] [place] [address] Hemoglobin (Bld) [Mass/Vol] 12.7 g/dL Normal 11.7-16.0 [facility] Comment on above: Performed By: #### A MY3, CMP3, HEMDF, LIPA4 #### [facility] [address] [place] [address] Lymphocytes (Bld) [#/Vol] 1.2 10*3/uL Normal 1.0-4.3 [facility] Comment on above: Performed By: #### A MY3, CMP3, HEMDF, LIPA4 #### [facility] [address] [place] [address] Lymphocytes/100 WBC (Bld) 24.6 % Normal 20.0-40.0 [facility] Comment on above: Performed By: #### A MY3, CMP3, HEMDF, LIPA4 #### [facility] [address] [place] [address] MCH (RBC) [Entitic mass] 31.2 pg Normal 26.0-34.0 [facility] Comment on above: Performed By: #### A MY3, CMP3, HEMDF, LIPA4 #### [facility] [address] [place] [address] MCHC 33.8 % Normal 32.0-36.0 [facility] Comment on above: Performed By: #### A MY3, CMP3, HEMDF, LIPA4 #### [facility] [address] [place] [address] MCV (RBC) [Entitic vol] 92.3 fL Normal 79.0-98.0 [facility] Comment on above: Performed By: #### A MY3, CMP3, HEMDF, LIPA4 #### [facility] [address] [place] [address] Monocytes (Bld) [#/Vol] 0.5 10*3/uL Normal 0.0-0.8 [facility] Comment on above: Performed By: #### A MY3, CMP3, HEMDF, LIPA4 #### [facility] [address] [place] [address] Monocytes/100 WBC (Bld) 10.9 % High 2.0-10.0 [facility] Comment on above: Performed By: #### A MY3, CMP3, HEMDF, LIPA4 #### [facility] [address] [place] [address] Platelet mean volume (Bld) [Entitic vol] 6.8 fL Low 7.4-10.4 [facility] Comment on above: Performed By: #### A MY3, CMP3, HEMDF, LIPA4 #### [facility] [address] [place] [address] Platelets (Bld) [#/Vol] 351 10*3/uL Normal 140-440 [facility] Comment on above: Performed By: #### A MY3, CMP3, HEMDF, LIPA4 #### [facility] [address] [place] [address] RBC (Bld) [#/Vol] 4.06 10*6/uL Normal 3.80-5.20 [facility] Comment on above: Performed By: #### A MY3, CMP3, HEMDF, LIPA4 #### [facility] [address] [place] [address] WBC (Bld) [#/Vol] 5.0 10*3/uL Normal 3.6-10.7 [facility] Comment on above: Performed By: #### A MY3, CMP3, HEMDF, LIPA4 #### [facility] [address] [place] [address] Lipaseon 08-03-2021 Lipase [Catalytic activity/Vol] 253 U/L Normal 23-300 [facility] Comment on above: Performed By: #### A MY3, CMP3, HEMDF, LIPA4 #### [facility] [address] [place] [address] Lipase [Catalytic activity/Vol] 253 U/L 23 - 300 U/L [facility] No Panel Informationon 08-03 Test Performed by [facility], [address] , [address] LAB [facility] Lipaseon 07-16-2021 Lipase [Catalytic activity/Vol] 422 U/L High 23-300 [facility] Comment on above: Performed By: #### A MY3, CMP3, HEMDF, LIPA4 #### [facility] [address] [place] [address] LipaseOrdered By: Andreas Lopez ma on 07-16-2021 Interpretation and review of laboratory results Abnormal [facility] Work Phone: [phone] Lipase [Catalytic activity/Vol] 422 U/L High 23 - 300 U/L [facility] Work Phone: [phone] Test Performed by [facility], [address] , [place] [address] [facility] Work Phone: [phone] [facility] Work Phone: [phone] Auto DifferentialOrdered By: Nara Hdz on 06-22-2021 Absolute Baso # 0.0 10*3/uL 0.0 - 0.2 10*3/uL [facility] Work Phone: Absolute Neut # 4.8 10*3/uL 1.8 - 7.0 10*3/uL [facility] Work Phone: [phone] Basophils/100 WBC (Bld) 0.7 % 0.0 - 2.0 % [facility] Work Phone: Eosinophils (Bld) [#/Vol] 0.2 10*3/uL 0.0 - 0.5 10*3/uL [facility] Work Phone: [phone] Eosinophils/100 WBC (Bld) 2.6 % 1.0 - 6.0 % [facility] Work Phone: 1 Granulocytes/100 WBC (Bld) 70.0 % 40.0 - 80.0 % [facility] Work Phone: Hematocrit (Bld) [Volume fraction] 34.8 % Low 35.0 - 47.0 % [facility] Work Phone: Hemoglobin.gastrointest inal spec 1 Ql (Stl) 11.8 g/dL 11.7 - 16.0 g/dL [facility] Work Phone: Interpretation and review of laboratory results Abnormal [facility] Work Phone: Lymphocytes (Bld) [#/Vol] 1.2 10*3/uL 1.0 - 4.3 10*3/uL [facility] Work Phone: Lymphocytes/100 WBC (Bld) 17.7 % Low 20.0 - 40.0 % [facility] Work Phone: MCH (RBC) [Entitic mass] 31.7 pg 26.0 - 34.0 pg [facility] Work Phone: MCHC (RBC) [Mass/Vol] 34.0 % 32.0 - 36.0 % [facility] Work Phone: MCV (RBC) [Entitic vol] 93.2 fL 79.0 - 98.0 fL [facility] Work Phone: Monocytes (Bld) [#/Vol] 0.6 10*3/uL 0.0 - 0.8 10*3/uL [facility] Work Phone: 22 Monocytes/100 WBC (Bld) 9.0 % 2.0 - 10.0 % [facility] Work Phone: Platelet distribution width (Bld) [Ratio] 12.9 % 11.5 - 14.5 % [facility] Work Phone: [phone] Platelet mean volume (Bld) [Entitic vol] 6.5 fL Low 7.4 - 10.4 fL [facility] Work Phone: 1 Platelets (Bld) [#/Vol] 466 10*3/uL High 140 - 440 10*3/uL [facility] Work Phone: 1 RBC (Bld) [#/Vol] 3.74 10*6/uL Low 3.80 - 5.2 0 10*6/uL [facility] Work Phone: 1 WBC (Bld) [#/Vol] 6.9 10*3/uL 3.6 - 10.7 10*3/uL [facility] Work Phone: [phone] Test Performed by [facility], [address] [place] [address] [facility] Work Phone: 1 [facility] Work Phone: [phone] Metabolic Panelon 06-22 Calcium [Mass/Vol] 9.8 mg/dL Normal 8.4-10.4 [facility] Comment on above: Performed By: #### A MY3, CMP3, HEMDF, LIPA4 #### [facility] [address] [address] ALP [Catalytic activity/Vol] 113 U/L Normal 38-126 [facility] Comment on above: Performed By: #### A MY3, CMP3, HEMDF, LIPA4 #### [facility] [address] [place] [address] ALT [Catalytic activity/Vol] 15 U/L Normal 0-34 [facility] Comment on above: Result Comment: The ALT test is performed by an updated assay method. Please note that the reference intervals have been changed and are now sex specific. Performed By: #### A MY3, CMP3, HEMDF, LIPA4 #### [facility] [address] [place] [address] Anion gap [Moles/Vol] 8 mmol/L Normal 3-13 [facility] Comment on above: Performed By: #### A MY3, CMP3, HEMDF, LIPA4 #### [facility] [address] [place] [address] AST [Catalytic activity/Vol] 29 U/L Normal 15-46 [facility] Comment on above: Performed By: #### A MY3, CMP3, HEMDF, LIPA4 #### [facility] [address] [place] [address] Bilirubin [Mass/Vol] 0.7 mg/dL Normal 0.2-1.3 [facility] Comment on above: Performed By: #### A MY3, CMP3, HEMDF, LIPA4 #### [facility] [address] [place] [address] CO2 [Moles/Vol] 27 mmol/L Normal 22-30 [facility] Comment on above: Performed By: #### A MY3, CMP3, HEMDF, LIPA4 #### [facility] [address] [place] [address] Glucose [Mass/Vol] 115 mg/dL High 70-100 [facility] Comment on above: Performed By: #### A MY3, CMP3, HEMDF, LIPA4 #### [facility] [address] [place] [address] Protein [Mass/Vol] 7.1 g/dL Normal 6.3-8.2 [facility] Comment on above: Performed By: #### A MY3, CMP3, HEMDF, LIPA4 #### [facility] [address] [place] [address] Urea nitrogen [Mass/Vol] 9 mg/dL Normal 9-20 [facility] Comment on above: Performed By: #### A MY3, CMP3, HEMDF, LIPA4 #### [facility] [address] [place] [address] Creatinine [Mass/Vol] 0.86 mg/dL Normal 0.52-1.25 [facility] Comment on above: Performed By: #### A MY3, CMP3, HEMDF, LIPA4 #### [facility] [address] [place] [address] GFR/1.73 sq M.predicted among blacks MDRD (S/P/Bld) [Vol rate/Area] 71.6 mL/min/{1.73_m2} Normal >60 [facility] Comment on above: Performed By: #### A MY3, CMP3, HEMDF, LIPA4 #### [facility] [address] [place] [address] GFR/1.73 sq M.predicted among non-blacks MDRD (S/P/Bld) [Vol rate/Area] 61.7 mL/min/{1.73_m2} Normal >60 [facility] Comment on above: Result Comment: KDIG O [...] #### A MY3, CMP3, HEMDF, LIPA4 #### [facility] [address] [place] [address] Albumin [Mass/Vol] 4.0 g/dL Normal 3.5-5.0 [facility] Comment on above: Performed By: #### A MY3, CMP3, HEMDF, LIPA4 #### [facility] [address] [place] [address] Chloride [Moles/Vol] 96 mmol/L Low 98-107 [facility] Comment on above: Performed By: #### A MY3, CMP3, HEMDF, LIPA4 #### [facility] [address] [place] [address] Potassium [Moles/Vol] 4.2 mmol/L Normal 3.5-5.1 [facility] Comment on above: Performed By: #### A MY3, CMP3, HEMDF, LIPA4 #### [facility] [address] [place] [address] Sodium [Moles/Vol] 131 mmol/L Low 135-145 [facility] Comment on above: Performed By: #### A MY3, CMP3, HEMDF, LIPA4 #### [facility] [address] [place] [address] Comprehensive Metabolic Pane lOrdered By: Nara Hdz on 06-22-2021 Albumin [Mass/Vol] 4.0 g/dL 3.5 - 5.0 g/dL [facility] Work Phone: [phone] ALP (Bld) [Catalytic activity/Vol] 113 U/L 38 - 126 U/L [facility] Work Phone: ALT [Catalytic activity/Vol] 15 U/L 0 - 34 U/L [facility] Work Phone: Comment on above: The ALT test is perf ormed by an updated assay method. Please note that the reference intervals have been changed and are now sex specific. Anion gap [Moles/Vol] 8 mmol/L 3 - 13 mmol/L [facility] Work Phone: [phone] [Catalytic activity/Vol] 29 U/L 15 - 46 U/L [facility] Work Phone: Bilirubin [Mass/Vol] 0.7 mg/dL 0.2 - 1 .3 mg/dL [facility] Work Phone: Calcium [Mass/Vol] 9.8 mg/dL 8.4 - 10. 4 mg/dL [facility] Work Phone: [phone] Chloride [Moles/Vol] 96 mmol/L Low 98 - 10 7 mmol/L [facility] Work Phone: [phone] CO2 [Moles/Vol] 27 mmol/L 22 - 30 mmol/L [facility] Work Phone: [phone] Creatinine [Mass/Vol] 0.86 mg/dL 0.52 - 1.25 mg/dL [facility] Work Phone: [phone] EGFR IF NonAfrican Brazilian 61.7 mL/min >60 [facility] Work Phone: Comment on above: KDIGO guidelines [...] fraction] 7.1 g/dL 6.3 - 8.2 g/dL [facility] Work Phone: GFR/1.73 sq M.predicted among blacks MDRD (S/P/Bld) [Vol rate/Area] 71.6 mL/min/{1.73_m2} >60 [facility] Phone: Glucose [Mass/Vol] 115 mg/dL High 70 - 100 mg/dL [facility] Phone: Potassium [Moles/Vol] 4.2 mmol/L 3.5 - 5.1 mmol/L [facility] Work Phone: Sodium [Moles/Vol] 131 mmol/L Low 135 - 145 mmol/L [facility] Work Phone: Urea nitrogen (BldV) [Mass/Vol] 9 mg/dL 9 - 20 mg/dL [facility] Phone: Hemogram w/ Autodiffon 06-22 Abs Baso Cnt 0.0 10*3/uL Normal 0.0-0.2 [facility] Comment on above: Performed By: #### A MY3, CMP3, HEMDF, LIPA4 #### [facility] [address] [place] [address] Abs Neutrophile Cnt 4.8 10*3/uL Normal 1.8-7.0 [facility] Comment on above: Performed By: #### A MY3, CMP3, HEMDF, LIPA4 #### [facility] [address] [place] [address] Basophils/100 WBC (Bld) 0.7 % Normal 0.0-2.0 [facility] Comment on above: Performed By: #### A MY3, CMP3, HEMDF, LIPA4 #### [facility] [address] [place] [address] Eosinophils (Bld) [#/Vol] 0.2 10*3/uL Normal 0.0-0.5 [facility] Comment on above: Performed By: #### A MY3, CMP3, HEMDF, LIPA4 #### [facility] [address] [place] [address] Eosinophils/100 WBC (Bld) 2.6 % Normal 1.0-6.0 [facility] Comment on above: Performed By: #### A MY3, CMP3, HEMDF, LIPA4 #### [facility] [address] [place] [address] Erythrocyte distribution width (RBC) [Ratio] 12.9 % Normal 11.5-14.5 [facility] Comment on above: Performed By: #### A MY3, CMP3, HEMDF, LIPA4 #### [facility] [address] [place] [address] Granulocytes/100 WBC (Bld) 70.0 % Normal 40.0-80.0 [facility] Comment on above: Performed By: #### A MY3, CMP3, HEMDF, LIPA4 #### [facility] [address] [place] [address] Hematocrit (Bld) [Volume fraction] 34.8 % Low 35.0-47.0 [facility] Comment on above: Performed By: #### A MY3, CMP3, HEMDF, LIPA4 #### [facility] [address] [place] [address] Hemoglobin (Bld) [Mass/Vol] 11.8 g/dL Normal 11.7-16.0 [facility] Comment on above: Performed By: #### A MY3, CMP3, HEMDF, LIPA4 #### [facility] [address] [place] [address] Lymphocytes (Bld) [#/Vol] 1.2 10*3/uL Normal 1.0-4.3 [facility] Comment on above: Performed By: #### A MY3, CMP3, HEMDF, LIPA4 #### [facility] [address] [place] [address] Lymphocytes/100 WBC (Bld) 17.7 % Low 20.0-40.0 [facility] Comment on above: Performed By: #### A MY3, CMP3, HEMDF, LIPA4 #### [facility] [address] [place] [address] MCH (RBC) [Entitic mass] 31.7 pg Normal 26.0-34.0 [facility] Comment on above: Performed By: #### A MY3, CMP3, HEMDF, LIPA4 #### [facility] [address] [place] [address] MCHC 34.0 % Normal 32.0-36.0 [facility] Comment on above: Performed By: #### A MY3, CMP3, HEMDF, LIPA4 #### [facility] [address] [place] [address] MCV (RBC) [Entitic vol] 93.2 fL Normal 79.0-98.0 [facility] Comment on above: Performed By: #### A MY3, CMP3, HEMDF, LIPA4 #### [facility] [address] [place] [address] Monocytes (Bld) [#/Vol] 0.6 10*3/uL Normal 0.0-0.8 [facility] Comment on above: Performed By: #### A MY3, CMP3, HEMDF, LIPA4 #### [facility] [address] [place] [address] Monocytes/100 WBC (Bld) 9.0 % Normal 2.0-10.0 [facility] Comment on above: Performed By: #### A MY3, CMP3, HEMDF, LIPA4 #### [facility] [address] [place] [address] Platelet mean volume (Bld) [Entitic vol] 6.5 fL Low 7.4-10.4 [facility] Comment on above: Performed By: #### A MY3, CMP3, HEMDF, LIPA4 #### [facility] [address] [place] [address] Platelets (Bld) [#/Vol] 466 10*3/uL High 140-440 [facility] Comment on above: Performed By: #### A MY3, CMP3, HEMDF, LIPA4 #### [facility] [address] [place] [address] RBC (Bld) [#/Vol] 3.74 10*6/uL Low 3.80-5.20 [facility] Comment on above: Performed By: #### A MY3, CMP3, HEMDF, LIPA4 #### [facility] [address] [place] [address] WBC (Bld) [#/Vol] 6.9 10*3/uL Normal 3.6-10.7 [facility] Comment on above: Performed By: #### A MY3, CMP3, HEMDF, LIPA4 #### [facility] [address] [place] [address] Lipaseon 06-22-2021 Lipase [Catalytic activity/Vol] 1089 U/L High 23-300 [facility] Comment on above: Performed By: #### A MY3, CMP3, HEMDF, LIPA4 #### [facility] [address] [place] [address] LipaseOrdered By: Nara cheema on 06-22-2021 Lipase [Catalytic activity/Vol] 1089 U/L High 23 - 300 U/L [facility] Work Phone: No Panel InformationOrdered By: Nara Hdz on 06-22-2021 Interpretation and review of laboratory results Abnormal [facility] Work Phone: Test Performed by [facility], [address] Work Phone: [phone] [facility] Work Phone: [phone] Prothrombin Timeon INR 1.1 Normal 0.9-1.1 [facility] Comment on above: Result Comment: Tray mmended [...] #### A MY3, CMP3, HEMDF, LIPA4 #### [facility] [address] [place] [address] PT Coag (PPP) [Time] 11.4 s Normal 9.0-12.0 [facility] Comment on above: Result Comment: . Performed By: #### A MY3, CMP3, HEMDF, LIPA4 #### [facility] [address] [facility] [place] [address] Protime-INROrdered By: Sana Hdz on 06-22-2021 INR Coag (Bld) [Relative time] 1.1 {INR} [facility] Work Phone: [phone] Comment on above: Recommended Anticoag ulant Therapy: [...] [Time] 11.4 s 9.0 - 12.0 s [facility] Work Phone: Comment on above: . Test Performed by [facility], [address] , [place], [place] [address] [facility] Work Phone: [facility] Work Phone: US Abdomen Limitedon 021 US Abdomen Limited Patient Name: HELEN GUTIERREZ Ultrasound ACCESSION EXAM DATE/TIME PROCEDURE ORDERING PROVIDER [id number] 06/06/2021 07:36 EDT US Abdomen Limited MD ALEA, KAEL JORDAN CPT code 14224 Reason For Exam (US Abdomen Limited) assess [...] Transcribed Date and Time: 06/06/2021 9:49 Normal [facility] Comp Metabolic Panelon 06-05 ALP [Catalytic activity/Vol] 257 U/L High 38-126 [facility] Comment on above: Performed By: #### P T, RENL3 #### [place] [id number] ALT [Catalytic activity/Vol] 95 U/L High 0-34 [facility] Comment on above: Result Comment: The ALT test is performed by an updated assay method. Please note that the reference intervals have been changed and are now sex specific. Performed By: #### P T, RENL3 #### [facility] [address] [place] [address] AST [Catalytic activity/Vol] 44 U/L Normal 15-46 [facility] Comment on above: Performed By: #### P T, RENL3 #### [facility] [address] [facility], [place] Bilirubin [Mass/Vol] 1.6 mg/dL High 0.2-1.3 [facility] Comment on above: Performed By: #### P T, RENL3 #### [facility] [address] [facility], [place] Protein [Mass/Vol] 6.9 g/dL Normal 6.3-8.2 [facility] Comment on above: Performed By: #### P T, RENL3 #### [facility] [address] [facility], [place] Renal Functionon 06-05-2021 Calcium [Mass/Vol] 9.3 mg/dL Normal 8.4-10.4 [facility] Comment on above: Performed By: #### C MP3, RENL3 #### [facility] [address] [facility], [place] Glucose [Mass/Vol] 139 mg/dL High 70-100 [facility] Comment on above: Performed By: #### C MP3, RENL3 #### [facility] [address] [facility], [place] Phosphate [Mass/Vol] 2.8 mg/dL Normal 2.5-4.5 [facility] Comment on above: Performed By: #### C MP3, RENL3 #### [facility] [address] [facility], [place] Anion gap [Moles/Vol] 12 mmol/L Normal 3-13 [facility] Comment on above: Performed By: #### C MP3, RENL3 #### [facility] [address] [place], [place] CO2 [Moles/Vol] 24 mmol/L Normal 22-30 [facility] Comment on above: Performed By: #### C MP3, RENL3 #### [facility] [address] [place], [place] Creatinine [Mass/Vol] 0.50 mg/dL Low 0.52-1.25 [facility] Comment on above: Performed By: #### C MP3, RENL3 #### [place] [address] [place], [place] GFR/1.73 sq M.predicted among blacks MDRD (S/P/Bld) [Vol rate/Area] mL/min/{1.73_m2} Normal >60 [facility] Comment on above: Performed By: #### C MP3, RENL3 #### [address] GFR/1.73 sq M.predicted among non-blacks MDRD (S/P/Bld) [Vol rate/Area] 88.5 mL/min/{1.73_m2} Normal >60 [facility] Comment on above: Result Comment: KDIG O [...] Performed By: #### C MP3, RENL3 #### [address] Urea nitrogen [Mass/Vol] 13 mg/dL Normal 9-20 [facility] Comment on above: Performed By: #### C MP3, RENL3 #### [facility] [address] [place], [place] Potassium [Moles/Vol] 3.9 mmol/L Normal 3.5-5.1 [facility] Comment on above: Performed By: #### C MP3, RENL3 #### [facility] [address] [place], [place] Sodium [Moles/Vol] 131 mmol/L Low 135-145 [facility] Comment on above: Performed By: #### C MP3, RENL3 #### [place] [address] [address] [place], [place] Albumin [Mass/Vol] 3.5 g/dL Normal 3.5-5.0 [facility] Comment on above: Performed By: #### C MP3, RENL3 #### [place] [address] [address] [place], [place] Chloride [Moles/Vol] 95 mmol/L Low 98-107 [facility] Comment on above: Performed By: #### C MP3, RENL3 #### [place] [address] [address] [place], [place] Sodiumon 06-05-2021 Sodium [Moles/Vol] 130 mmol/L Low 135-145 [facility] Comment on above: Performed By: #### P T, RENL3 #### [place] [address] [address] [place], [place] Comp Metabolic Panelon 06-04 ALT [Catalytic activity/Vol] 134 U/L High 0-34 [facility] Comment on above: Result Comment: The ALT test is performed by an updated assay method. Please note that the reference intervals have been changed and are now sex specific. Performed By: #### C MP3, RENL3, PT, LIPA4 #### [facility] [address] [place], [place] Calcium [Mass/Vol] 8.9 mg/dL Normal 8.4-10.4 [facility] Comment on above: Performed By: #### C MP3, RENL3, PT, LIPA4 #### [place] [address] [address] [place], [place] ALP [Catalytic activity/Vol] 279 U/L High 38-126 [facility] Comment on above: Performed By: #### C MP3, RENL3, PT, LIPA4 #### [place] [address] [address] [place], [place] Anion gap [Moles/Vol] 9 mmol/L Normal 3-13 [facility] Comment on above: Performed By: #### C MP3, RENL3, PT, LIPA4 #### [place] [address] [place], [place] AST [Catalytic activity/Vol] 74 U/L High 15-46 [facility] Comment on above: Performed By: #### C MP3, RENL3, PT, LIPA4 #### [place] [address] [place], [place] Bilirubin [Mass/Vol] 5.2 mg/dL High 0.2-1.3 [facility] Comment on above: Performed By: #### C MP3, RENL3, PT, LIPA4 #### [place] [address] [address] [place], [place] CO2 [Moles/Vol] 23 mmol/L Normal 22-30 [facility] Comment on above: Performed By: #### C MP3, RENL3, PT, LIPA4 #### [place] [address] [address] [place], [place] Creatinine [Mass/Vol] 0.52 mg/dL Normal 0.52-1.25 [facility] Comment on above: Performed By: #### C MP3, RENL3, PT, LIPA4 #### [place] [address] [address] [place], [place] GFR/1.73 sq M.predicted among blacks MDRD (S/P/Bld) [Vol rate/Area] mL/min/{1.73_m2} Normal >60 [facility] Comment on above: Performed By: #### C MP3, RENL3, PT, LIPA4 #### [address] GFR/1.73 sq M.predicted among non-blacks MDRD (S/P/Bld) [Vol rate/Area] 87.4 mL/min/{1.73_m2} Normal >60 [facility] Comment on above: Result Comment: KDIG O [...] #### C MP3, RENL3, PT, LIPA4 #### [address] Glucose [Mass/Vol] 106 mg/dL High 70-100 [facility] Comment on above: Performed By: #### C MP3, RENL3, PT, LIPA4 #### [address] Protein [Mass/Vol] 6.6 g/dL Normal 6.3-8.2 [facility] Comment on above: Performed By: #### C MP3, RENL3, PT, LIPA4 #### [address] Urea nitrogen [Mass/Vol] 11 mg/dL Normal 9-20 [facility] Comment on above: Performed By: #### C MP3, RENL3, PT, LIPA4 #### [address] Potassium [Moles/Vol] 2.9 mmol/L Low 3.5-5.1 [facility] Comment on above: Performed By: #### C MP3, RENL3, PT, LIPA4 #### [place] [address] [place], [place] Sodium [Moles/Vol] 129 mmol/L Low 135-145 [facility] Comment on above: Performed By: #### C MP3, RENL3, PT, LIPA4 #### [place] [address] [place], [place] Albumin [Mass/Vol] 3.3 g/dL Low 3.5-5.0 [facility] Comment on above: Performed By: #### C MP3, RENL3, PT, LIPA4 #### [place] [address] [place], [place] Chloride [Moles/Vol] 96 mmol/L Low 98-107 [facility] Comment on above: Performed By: #### C MP3, RENL3, PT, LIPA4 #### [address] Lipaseon 06-04-2021 Lipase [Catalytic activity/Vol] 1269 U/L High 23-300 [facility] Comment on above: Performed By: #### C MP3, RENL3, PT, LIPA4 #### [address] Osmolality,Urineon 1 Osmolality,Urine 455 mosm/kg Normal 300-1000 [facility] Comment on above: Performed By: #### A DDON #### [address] Prothrombin Timeon 1 INR 1.2 High 0.9-1.1 [facility] Comment on above: Result Comment: Tray mmended [...] #### C MP3, RENL3, PT, LIPA4 #### [place] [address] [address] [place], [place] PT Coag (PPP) [Time] 12.3 s High 9.0-12.0 [facility] Comment on above: Result Comment: . Performed By: #### C MP3, RENL3, PT, LIPA4 #### [place] [address] [address] [place], [place] RF ERCP Biliary and Pancreat ic Ducton 06-04-2021 RF ERCP Biliary and Pancreatic Duct Patient Name: HELEN LIEBERMAN Fluoroscopy ACCESSION EXAM DATE/TIME PROCEDURE ORDERING PROVIDER [id number] 06/04/2021 13:45 EDT RF ERCP Biliary and [id number] -[facility] Pancreatic Duct CPT code 65639 Reason For Exam (RF ERCP Biliary and Pancreatic Duct) obstructive jaundice Report A total of ??.9??minutes of fluoro time was used in the Operating Suite for this procedure. ?? No other report will be generated. Final Signed Date and Time: 06/05/2021 3:43 pm Signed by: MANAGER [employer]ERIALS MANAGEMENT, SYSTEM Transcribed Date and Time: 06/05/2021 3:33 Transcribed By:KK Normal [facility] Renal Functionon 06-04-2021 Phosphate [Mass/Vol] 2.6 mg/dL Normal 2.5-4.5 [facility] Comment on above: Performed By: #### C MP3, RENL3, PT, LIPA4 #### [facility] [address] [place], [place] Sodiumon 06-04-2021 Sodium [Moles/Vol] 130 mmol/L Low 135-145 [facility] Comment on above: Performed By: #### P T, RENL3 #### [place] [address] [address] [place], [place] Sodium, Ur Randomon 06-04-20 21 Sodium [Moles/Vol] 77 mmol/L Normal 30-90 [facility] Comment on above: Performed By: #### A DDON #### [facility] [address] [facility] [place], [place] Add on test from HISon 06-03 Add on test from HIS Accepted Normal [facility] Comment on above: Result Comment: Spec imen available & acceptable for analysis. Performed By: #### A DDON #### [facility] [address] [facility] [place], [place] Add on test from HIS Rejected Normal [facility] Comment on above: Result Comment: No s pecimen available for addon. Performed By: #### A DDON #### [facility] [address] [facility] [place], [place] Bilirubin,Directon Bilirubin.indirect [Mass/Vol] 1.6 mg/dL High 0.0-0.3 [facility] Comment on above: Performed By: #### P T, RENL3 #### [facility] [address] [facility] [place], [place] Comp Metabolic Panelon 06-03 ALT [Catalytic activity/Vol] 201 U/L High 0-34 [facility] Comment on above: Result Comment: The ALT test is performed by an updated assay method. Please note that the reference intervals have been changed and are now sex specific. Performed By: #### P T, RENL3 #### [facility] [address] [facility] [place] ALP [Catalytic activity/Vol] 196 U/L High 38-126 [facility] Comment on above: Performed By: #### P T, RENL3 #### [facility] [address] [facility] [place], [place] AST [Catalytic activity/Vol] 119 U/L High 15-46 [facility] Comment on above: Performed By: #### P T, RENL3 #### [facility] [address] [facility] [place] Bilirubin [Mass/Vol] 4.4 mg/dL High 0.2-1.3 [facility] Comment on above: Performed By: #### P T, RENL3 #### [facility] [address] [place], [place] CO2 [Moles/Vol] 24 mmol/L Normal 22-30 [facility] Comment on above: Performed By: #### Cynthia Clement RENVenu #### [facility] [address] [place], [place] Creatinine [Mass/Vol] 0.57 mg/dL Normal 0.52-1.25 [facility] Comment on above: Performed By: #### Cynthia Clement RENL3 #### [facility] [address] [place], [place] GFR/1.73 sq M.predicted among non-blacks MDRD (S/P/Bld) [Vol rate/Area] 84.8 mL/min/{1.73_m2} Normal >60 [facility] Comment on above: Result Comment: KDIG O [...] Performed By: #### Cynthia Clement RENL3 #### [facility] [address] [place], [place] Glucose [Mass/Vol] 99 mg/dL Normal 70-100 [facility] Comment on above: Performed By: #### ИРИНА LanL3 #### [facility] [address] [place], [place] Protein [Mass/Vol] 6.3 g/dL Normal 6.3-8.2 [facility] Comment on above: Performed By: #### Cynthia Clement RENL3 #### [facility] [address] [place], [place] Potassium [Moles/Vol] 3.5 mmol/L Normal 3.5-5.1 [facility] Comment on above: Performed By: #### P T, GOSIA #### [facility] [address] [place], [place] Sodium [Moles/Vol] 127 mmol/L Low 135-145 [facility] Comment on above: Performed By: #### P T, ИРИНАL3 #### [facility] [address] [place], [place] Chloride [Moles/Vol] 96 mmol/L Low 98-107 [facility] Comment on above: Performed By: #### P TGOSIA #### [place] [address] [address] [place], [place] Hemogram w/ Autodiffon 06-03 Abs Baso Cnt 0.0 10*3/uL Normal 0.0-0.2 [facility] Comment on above: Performed By: #### A DDON #### [place] [address] [address] [place], [place] Abs Neutrophile Cnt 13.3 10*3/uL High 1.8-7.0 [facility] Comment on above: Performed By: #### A DDON #### [place] [address] [address] [place], [place] Basophils/100 WBC (Bld) 0.1 % Normal 0.0-2.0 [facility] Comment on above: Performed By: #### A DDON #### [place] [address] [address] [place], [place] Eosinophils (Bld) [#/Vol] 0.0 10*3/uL Normal 0.0-0.5 [facility] Comment on above: Performed By: #### A DDON #### [place] [address] [address] [place], [place] Eosinophils/100 WBC (Bld) 0.2 % Low 1.0-6.0 [facility] Comment on above: Performed By: #### A DDON #### [place] [address] [address] [place], [place] Erythrocyte distribution width (RBC) [Ratio] 12.9 % Normal 11.5-14.5 [facility] Comment on above: Performed By: #### A DDON #### [place] [address] [address] [place], [place] Granulocytes/100 WBC (Bld) 92.4 % High 40.0-80.0 [facility] Comment on above: Performed By: #### A DDON #### [place] [address] [address] [place], [place] Hematocrit (Bld) [Volume fraction] 38.7 % Normal 35.0-47.0 [facility] Comment on above: Performed By: #### A DDON #### [place] [address] [address] [place], [place] Hemoglobin (Bld) [Mass/Vol] 12.7 g/dL Normal 11.7-16.0 [facility] Comment on above: Performed By: #### A DDON #### [place] [address] [address] [place], [place] Lymphocytes (Bld) [#/Vol] 0.4 10*3/uL Low 1.0-4.3 [facility] Comment on above: Performed By: #### A DDON #### [place] [address] [address] [place], [place] Lymphocytes/100 WBC (Bld) 2.6 % Low 20.0-40.0 [facility] Comment on above: Performed By: #### A DDON #### [place] [address] [address] [place], [place] MCH (RBC) [Entitic mass] 31.6 pg Normal 26.0-34.0 [facility] Comment on above: Performed By: #### A DDON #### [place] [address] [address] [place], [place] MCHC 32.8 % Normal 32.0-36.0 [facility] Comment on above: Performed By: #### A DDON #### [place] [address] [address] [place], [place] MCV (RBC) [Entitic vol] 96.2 fL Normal 79.0-98.0 [facility] Comment on above: Performed By: #### A DDON #### [place] [address] [address] [place], [place] Monocytes (Bld) [#/Vol] 0.7 10*3/uL Normal 0.0-0.8 [facility] Comment on above: Performed By: #### A DDON #### [place] [address] [address] [place], [place] Monocytes/100 WBC (Bld) 4.7 % Normal 2.0-10.0 [facility] Comment on above: Performed By: #### A DDON #### [place] [address] [address] [place], [place] Platelet mean volume (Bld) [Entitic vol] 7.3 fL Low 7.4-10.4 [facility] Comment on above: Performed By: #### A DDON #### [place] [address] [address] [place], [place] Platelets (Bld) [#/Vol] 304 10*3/uL Normal 140-440 [facility] Comment on above: Performed By: #### A DDON #### [place] [address] [address] [place], [place] RBC (Bld) [#/Vol] 4.02 10*6/uL Normal 3.80-5.20 [facility] Comment on above: Performed By: #### A DDON #### [place] [address] [address] [place], [place] WBC (Bld) [#/Vol] 14.5 10*3/uL High 3.6-10.7 [facility] Comment on above: Performed By: #### A DDON #### [place] [address] [address] [place], [place] Lipaseon 06-03-2021 Lipase [Catalytic activity/Vol] 421 U/L High 23-300 [facility] Comment on above: Performed By: #### P T, RENL3 #### [place] [address] [place] [address] Magnesiumon 06-03-2021 Magnesium [Mass/Vol] 2.1 mg/dL Normal 1.6-2.3 [facility] Comment on above: Performed By: #### P T, RENL3 #### [facility] [address] [place] [address] Renal Functionon 06-03-2021 Calcium [Mass/Vol] 8.9 mg/dL Normal 8.4-10.4 [facility] Comment on above: Performed By: #### P T, RENL3 #### [facility] [address] [place], [place] Glucose [Mass/Vol] 99 mg/dL Normal 70-100 [facility] Comment on above: Performed By: #### P T, RENL3 #### [facility] [address] [place], [place] Phosphate [Mass/Vol] 2.3 mg/dL Low 2.5-4.5 [facility] Comment on above: Performed By: #### P T, RENL3 #### [facility] [address] [place], [place] Anion gap [Moles/Vol] 7 mmol/L Normal 3-13 [facility] Comment on above: Performed By: #### P T, RENL3 #### [facility] [address] [place], [place] CO2 [Moles/Vol] 25 mmol/L Normal 22-30 [facility] Comment on above: Performed By: #### P T, RENL3 #### [facility] [address] [place], [place] Creatinine [Mass/Vol] 0.60 mg/dL Normal 0.52-1.25 [facility] Comment on above: Performed By: #### P T, RENL3 #### [facility] [address] [place], [place] GFR/1.73 sq M.predicted among blacks MDRD (S/P/Bld) [Vol rate/Area] mL/min/{1.73_m2} Normal >60 [facility] Comment on above: Performed By: #### P T, RENL3 #### [facility] [address] [place] [address] GFR/1.73 sq M.predicted among non-blacks MDRD (S/P/Bld) [Vol rate/Area] 83.3 mL/min/{1.73_m2} Normal >60 [facility] Comment on above: Result Comment: KDIG O [...] Performed By: #### P T, RENL3 #### [facility] [address] [place], [place] Urea nitrogen [Mass/Vol] 10 mg/dL Normal 9-20 [facility] Comment on above: Performed By: #### P T, RENL3 #### [facility] [address] [place], [place] Albumin [Mass/Vol] 3.4 g/dL Low 3.5-5.0 [facility] Comment on above: Performed By: #### P T, RENL3 #### [facility] [address] [place] [address] Chloride [Moles/Vol] 98 mmol/L Normal 98-107 [facility] Comment on above: Performed By: #### P T, RENL3 #### [facility] [address] [place] [address] Potassium [Moles/Vol] 3.4 mmol/L Low 3.5-5.1 [facility] Comment on above: Performed By: #### P T, RENL3 #### [facility] [address] [place], [place] Sodium [Moles/Vol] 129 mmol/L Low 135-145 [facility] Comment on above: Performed By: #### P T, RENL3 #### [facility] [address] [place] [address] Sodiumon 06-03-2021 Sodium [Moles/Vol] 131 mmol/L Low 135-145 [facility] Comment on above: Performed By: #### P T, RENL3 #### [facility] [address] [place], [place] Acute Hepatitis Panelon Hep C Antibody Not detected Normal Not Detected [facility] Comment on above: Result Comment: Patients with DETECTED Hepatitis C Ab results should have a new specimen submitted for supplemental testing with a Hepatitis C Quantitative RNA assay (viral load), if clinically indicated. Performed By: #### P T, RENL3 #### [facility] [address] [place], [place] Hep A Virus Ab,IgM Not detected Normal Not Detected [facility] Comment on above: Performed By: #### P T, RENL3 #### [facility] [address] [place], [place] Hep B Surface Ag Not detected Normal Not Detected [facility] Comment on above: Performed By: #### P T, RENL3 #### [facility] [address] [place], [place] Hep B Core IgM Not detected Normal Not Detected [facility] Comment on above: Performed By: #### P T, RENL3 #### [facility] [address] [place], [place] Add on test from HISon 06-02 Add on test from HIS Accepted Normal [facility] Comment on above: Result Comment: Spec imen available & acceptable for analysis. Performed By: #### A DDON #### [facility] [address] [place], [place] Bilirubin,Directon Bilirubin.indirect [Mass/Vol] 0.7 mg/dL High 0.0-0.3 [facility] Comment on above: Performed By: #### P T, RENL3 #### [facility] [address] [place], [place] Chloride, Ur Randomon 2020 Chloride [Moles/Vol] 40 mmol/L Normal 18-209 [facility] Comment on above: Performed By: #### A DDON #### [facility] [address] [place], [place] Comp Metabolic Panelon 06-02 ALP [Catalytic activity/Vol] 155 U/L High 38-126 [facility] Comment on above: Performed By: #### P T RENL3 #### [place] [address] [address] [place], [place] ALT [Catalytic activity/Vol] 274 U/L High 0-34 [facility] Comment on above: Result Comment: The ALT test is performed by an updated assay method. Please note that the reference intervals have been changed and are now sex specific. Performed By: #### P T, RENL3 #### [facility] [address] [place], [place] Anion gap [Moles/Vol] 6 mmol/L Normal 3-13 [facility] Comment on above: Performed By: #### P T RENL3 #### [place] [address] [address] [place], [place] AST [Catalytic activity/Vol] 285 U/L High 15-46 [facility] Comment on above: Performed By: #### P T, RENL3 #### [facility] [address] [place], [place] Bilirubin [Mass/Vol] 3.9 mg/dL High 0.2-1.3 [facility] Comment on above: Performed By: #### P T, RENL3 #### [facility] [address] [place], [place] Calcium [Mass/Vol] 8.7 mg/dL Normal 8.4-10.4 [facility] Comment on above: Performed By: #### P T RENL3 #### [place] [address] [address] [place], [place] CO2 [Moles/Vol] 26 mmol/L Normal 22-30 [facility] Comment on above: Performed By: #### P T, RENL3 #### [place] [address] [address] [place], [place] Glucose [Mass/Vol] 123 mg/dL High 70-100 [facility] Comment on above: Performed By: #### P T, RENL3 #### [place] [address] [place], [place] Protein [Mass/Vol] 6.6 g/dL Normal 6.3-8.2 [facility] Comment on above: Performed By: #### P T, RENL3 #### [address] [address] [place], [place] Urea nitrogen [Mass/Vol] 10 mg/dL Normal 9-20 [facility] Comment on above: Performed By: #### P T, RENL3 #### [address] [address] [place], [place] Creatinine [Mass/Vol] 0.66 mg/dL Normal 0.52-1.25 [facility] Comment on above: Performed By: #### P T, RENL3 #### [address] [address] [address] [place], [place] GFR/1.73 sq M.predicted among blacks MDRD (S/P/Bld) [Vol rate/Area] mL/min/{1.73_m2} Normal >60 [facility] Comment on above: Performed By: #### P T, RENL3 #### [address] [place], [place] GFR/1.73 sq M.predicted among non-blacks MDRD (S/P/Bld) [Vol rate/Area] 80.8 mL/min/{1.73_m2} Normal >60 [facility] Comment on above: Result Comment: KDIG O [...] serum creatinine in children is the Bedside Lawsno equation. It is less accurate in patients with extremes of muscle mass, restriction of dietary protein, ingestion of creatine, extra-renal metabolism of creatinine, or treatment with medications that affect renal tubular creatinine secretion. Performed By: #### P T, RENL3 #### [facility] [address] [place] [address] Potassium [Moles/Vol] 3.8 mmol/L Normal 3.5-5.1 [facility] Comment on above: Performed By: #### P T, RENL3 #### [facility] [address] [place] [address] Albumin [Mass/Vol] 3.5 g/dL Normal 3.5-5.0 [facility] Comment on above: Performed By: #### P T, RENL3 #### [facility] [address] [place] [address] Chloride [Moles/Vol] 97 mmol/L Low 98-107 [facility] Comment on above: Performed By: #### P T, RENL3 #### [facility] [address] [place] [address] Sodium [Moles/Vol] 129 mmol/L Low 135-145 [facility] Comment on above: Performed By: #### P T, RENL3 #### [facility] [address] [place] [address] Complete Urinalysison 2020 Bacteria LM.HPF (Urine sed) [#/Area] Negative Normal Negative [facility] Comment on above: Result Comment: . Performed By: #### A MY3, CMP3, HEMDF, LIPA4 #### [facility] [address] [place] [address] RBC, Urine 0 - 2 Normal 0-2 [facility] Comment on above: Result Comment: . Performed By: #### A MY3, CMP3, HEMDF, LIPA4 #### [facility] [address] [address] Squamous Epithelial Negative Normal 3-5 [facility] Comment on above: Result Comment: . Performed By: #### A MY3, CMP3, HEMDF, LIPA4 #### [facility] [address] [place] [address] VOLUME, URINE 12 ml Normal [facility] Comment on above: Result Comment: . Performed By: #### A MY3, CMP3, HEMDF, LIPA4 #### [facility] [address] [place] [address] WBC, Urine 0 - 2 Normal 0-5 [facility] Comment on above: Result Comment: . Performed By: #### A MY3, CMP3, HEMDF, LIPA4 #### [facility] [address] [place] [address] Appearance (U) Clear Normal Clear [facility] Comment on above: Result Comment: . Performed By: #### A MY3, CMP3, HEMDF, LIPA4 #### [facility] [address] [place] [address] Bilirubin,Urine Negative Normal Negative [facility] Comment on above: Result Comment: . Performed By: #### A MY3, CMP3, HEMDF, LIPA4 #### [facility] [address] [place] [address] Color (U) YELLOW Normal Lt. Yellow [facility] Comment on above: Result Comment: . Performed By: #### A MY3, CMP3, HEMDF, LIPA4 #### [facility] [address] [place] [address] Glucose Ql (U) Normal Normal Normal (<70) [facility] Comment on above: Result Comment: . Performed By: #### A MY3, CMP3, HEMDF, LIPA4 #### [facility] [address] [place] [address] Ketone,Urine Negative Normal Negative [facility] Comment on above: Result Comment: . Performed By: #### A MY3, CMP3, HEMDF, LIPA4 #### [facility] [address] [place] [address] Leukocytes,Urine Negative Normal Negative [facility] Comment on above: Result Comment: . Performed By: #### A MY3, CMP3, HEMDF, LIPA4 #### [facility] [address] [place] [address] Nitrites,Urine Negative Normal Negative [facility] Comment on above: Result Comment: . Performed By: #### A MY3, CMP3, HEMDF, LIPA4 #### [facility] [address] [place] [address] Occult Blood,Urine Negative Normal Negative [facility] Comment on above: Result Comment: . Performed By: #### A MY3, CMP3, HEMDF, LIPA4 #### [facility] [address] [place] [address] pH,Urine 6.5 Normal 5.0-8.0 [facility] Comment on above: Result Comment: . Performed By: #### A MY3, CMP3, HEMDF, LIPA4 #### [facility] [address] [place] [address] Protein (U) [Mass/Vol] 20 mg/dL Abnormal Negative [facility] Comment on above: Result Comment: . Performed By: #### A MY3, CMP3, HEMDF, LIPA4 #### [facility] [address] [place] [address] Specific [place],Urine > 1.030 Abnormal 1.005 - 1.030 [facility] Comment on above: Result Comment: . Performed By: #### A MY3, CMP3, HEMDF, LIPA4 #### [facility] [address] [place] [address] Urobilinogen,Urine Normal Normal Normal (0-1) [facility] Comment on above: Result Comment: . Performed By: #### A MY3, CMP3, HEMDF, LIPA4 #### [facility] [address] [place] [address] Creatinine, Ur Randomon 09-0 Creatinine, Ur Random 88.1 mg/dL Normal No Range [facility] Comment on above: Performed By: #### A DDON #### [facility] [address], [place] Lipaseon 06-02-2021 Lipase [Catalytic activity/Vol] 2286 U/L High 23-300 [facility] Comment on above: Performed By: #### P T, RENL3 #### [facility] [address], [place] Magnesiumon 06-02-2021 Magnesium [Mass/Vol] 2.5 mg/dL High 1.6-2.3 [facility] Comment on above: Performed By: #### P T, RENL3 #### [facility] [address], [place] Osmolality,Urineon 1 Osmolality,Urine 508 mosm/kg Normal 300-1000 [facility] Comment on above: Performed By: #### A DDON #### [facility] [address], [place] Potassium, Ur Randomon 06-02 Potassium [Moles/Vol] 52 mmol/L Normal No Range [facility] Comment on above: Performed By: #### A DDON #### [facility] [address], [place] Protein, Ur Randomon 021 Protein, Ur Random 45 mg/dL High No Range [facility] Comment on above: Performed By: #### A DDON #### [facility] [address], [place] Prothrombin Timeon 1 INR 1.3 High 0.9-1.1 [facility] Comment on above: Result Comment: Tray mmended [...] Performed By: #### P T, RENL3 #### [facility] [address], [place] PT Coag (PPP) [Time] 13.4 s High 9.0-12.0 [facility] Comment on above: Result Comment: . Performed By: #### P T, RENL3 #### [facility] [address], [place] Renal Functionon 06-02-2021 Calcium [Mass/Vol] 8.9 mg/dL Normal 8.4-10.4 [facility] Comment on above: Performed By: #### P T, RENL3 #### [place] [address], [place] Phosphate [Mass/Vol] 2.2 mg/dL Low 2.5-4.5 [facility] Comment on above: Performed By: #### P T, RENL3 #### [place] [address], [place] Anion gap [Moles/Vol] 4 mmol/L Normal 3-13 [facility] Comment on above: Performed By: #### P T, RENL3 #### [place] [address], [place] CO2 [Moles/Vol] 27 mmol/L Normal 22-30 [facility] Comment on above: Performed By: #### P T, RENL3 #### [place] [address], [place] Creatinine [Mass/Vol] 0.61 mg/dL Normal 0.52-1.25 [facility] Comment on above: Performed By: #### P T, RENL3 #### [place] [address], [place] GFR/1.73 sq M.predicted among blacks MDRD (S/P/Bld) [Vol rate/Area] mL/min/{1.73_m2} Normal >60 [facility] Comment on above: Performed By: #### P T, RENL3 #### [facility] [address], [place] GFR/1.73 sq M.predicted among non-blacks MDRD (S/P/Bld) [Vol rate/Area] 82.9 mL/min/{1.73_m2} Normal >60 [facility] Comment on above: Result Comment: KDIG O [...] Performed By: #### P T RENL3 #### [place] [address], [place] Glucose [Mass/Vol] 118 mg/dL High 70-100 [facility] Comment on above: Performed By: #### P T RENL3 #### [place] [address], [place] Urea nitrogen [Mass/Vol] 10 mg/dL Normal 9-20 [facility] Comment on above: Performed By: #### P T RENL3 #### [place] [address], [place] Albumin [Mass/Vol] 3.4 g/dL Low 3.5-5.0 [facility] Comment on above: Performed By: #### P T RENL3 #### [place] [address], [place] Chloride [Moles/Vol] 97 mmol/L Low 98-107 [facility] Comment on above: Performed By: #### P T RENL3 #### [place] [address], [place] Potassium [Moles/Vol] 4.1 mmol/L Normal 3.5-5.1 [facility] Comment on above: Performed By: #### P T, RENL3 #### [facility] [address], [place] Sodium [Moles/Vol] 127 mmol/L Low 135-145 [facility] Comment on above: Performed By: #### P T, RENL3 #### [facility] [address], [place] Sodium, Ur Randomon 06-02-20 21 Sodium [Moles/Vol] 24 mmol/L Low 30-90 [facility] Comment on above: Performed By: #### A DDON #### [facility] [address], [place] Triglycerideon 06-02-2021 Triglyceride [Mass/Vol] 57 mg/dL Normal <150 [facility] Comment on above: Performed By: #### P T, RENL3 #### [facility] [address], [place] US Abdomen Limitedon 021 US Abdomen Limited Patient Name: HELEN GUTIERREZ Ultrasound ACCESSION EXAM DATE/TIME PROCEDURE ORDERING PROVIDER [id number] 06/02/2021 14:47 EDT US Abdomen Limited [id number] DEANA JORGE ALBERTO CPT code 24871 Reason For Exam (US Abdomen Limited) elevated [...] Transcribed Date and Time: 06/02/2021 3:29 Normal [facility] Acetaminophenon 06-01-2021 Acetaminophen [Mass/Vol] ug/mL Normal 10.0-30.0 [facility] Comment on above: Performed By: #### A MY3, CMP3, HEMDF, LIPA4 #### [facility] [address] [place] [address] Add on test from HISon 06-01 Add on test from HIS Accepted Normal [facility] Comment on above: Result Comment: Spec imen available & acceptable for analysis. Performed By: #### A MY3, CMP3, HEMDF, LIPA4 #### [facility] [address] [place] [address] CR Abdomen Series w/ Chest 1 Viewon 06-01-2021 CR Abdomen Series w/ Chest 1 View Patient Name: HELEN LIEBERMAN Diagnostic Radiology ACCESSION EXAM DATE/TIME PROCEDURE ORDERING PROVIDER [id number] 06/01/2021 19:13 EDT CR Abdomen Series w/ MD TREVIN, MARI Chest 1 View CPT code 89048 Reason For Exam (CR Abdomen Series w/ [...] Transcribed Date and Time: 06/01/2021 7:35 Normal [facility] CT Abdomen/Pelvis w/ Contras ton 06-01-2021 CT Abdomen/Pelvis w/ Contrast Patient Name: HELEN LIEBERMAN Computed Tomography ACCESSION EXAM DATE/TIME PROCEDURE ORDERING PROVIDER [id number] 06/01/2021 20:[address] Abdomen/Pelvis w/ IV MD TREVIN, MARI Contrast (IV Onl CPT code 85110 [id number] Reason For Exam (CT Abdomen/Pelvis w/ [...] Transcribed Date and Time: 06/01/2021 8:47 Normal [facility] Comp Metabolic Panelon 06-01 ALP [Catalytic activity/Vol] 147 U/L High 38-126 [facility] Comment on above: Performed By: #### C MP3 #### [facility] [address] [facility] [place] [address] Performed By: #### A CET4, CMP3, HEMDF, LIPA4, LACT3, MG3 #### [facility] [address] [facility] [place] [address] ALT [Catalytic activity/Vol] 354 U/L High 0-34 [facility] Comment on above: Result Comment: The ALT test is performed by an updated assay method. Please note that the reference intervals have been changed and are now sex specific. Performed By: #### C MP3 #### [facility] [address] [facility] [place] [address] Performed By: #### A CET4, CMP3, HEMDF, LIPA4, LACT3, MG3 #### [facility] [address] [place] [address] AST [Catalytic activity/Vol] 317 U/L High 15-46 [facility] Comment on above: Performed By: #### C MP3 #### [facility] [address] [place] [address] Performed By: #### A CET4, CMP3, HEMDF, LIPA4, LACT3, MG3 #### [facility] [address] [place] [address] Calcium [Mass/Vol] 9.6 mg/dL Normal 8.4-10.4 [facility] Comment on above: Performed By: #### C MP3 #### [facility] [address] [place] [address] Performed By: #### A CET4, CMP3, HEMDF, LIPA4, LACT3, MG3 #### [facility] [address] [place] [address] Glucose [Mass/Vol] 141 mg/dL High 70-100 [facility] Comment on above: Performed By: #### C MP3 #### [facility] [address] [place] [address] Performed By: #### A CET4, CMP3, HEMDF, LIPA4, LACT3, MG3 #### [facility] [address] [place] [address] Urea nitrogen [Mass/Vol] 12 mg/dL Normal 7-20 [facility] Comment on above: Performed By: #### C MP3 #### [facility] [address] [place] [address] Performed By: #### A CET4, CMP3, HEMDF, LIPA4, LACT3, MG3 #### [facility] [address] [place] [address] Anion gap [Moles/Vol] 9 mmol/L Normal 3-13 [facility] Comment on above: Performed By: #### C MP3 #### [facility] [address] [place] [address] Performed By: #### A CET4, CMP3, HEMDF, LIPA4, LACT3, MG3 #### [facility] [address] [place] [address] Bilirubin [Mass/Vol] 3.1 mg/dL High 0.2-1.3 [facility] Comment on above: Performed By: #### C MP3 #### [address] [place] [address] Performed By: #### A CET4, CMP3, HEMDF, LIPA4, LACT3, MG3 #### [facility] [address] [place] [address] CO2 [Moles/Vol] 23 mmol/L Normal 22-30 [facility] Comment on above: Performed By: #### C MP3 #### [address] [place] [address] Performed By: #### A CET4, CMP3, HEMDF, LIPA4, LACT3, MG3 #### [address] [place] [address] Creatinine [Mass/Vol] 0.73 mg/dL Normal 0.52-1.25 [facility] Comment on above: Performed By: #### C MP3 #### [address] [place] [address] Performed By: #### A CET4, CMP3, HEMDF, LIPA4, LACT3, MG3 #### [facility] [address] [place] [address] GFR/1.73 sq M.predicted among blacks MDRD (S/P/Bld) [Vol rate/Area] 87.3 mL/min/{1.73_m2} Normal >60 [facility] Comment on above: Performed By: #### C MP3 #### [facility] [address] [place] [address] Performed By: #### A CET4, CMP3, HEMDF, LIPA4, LACT3, MG3 #### [address] [place] [address] GFR/1.73 sq M.predicted among non-blacks MDRD (S/P/Bld) [Vol rate/Area] 75.3 mL/min/{1.73_m2} Normal >60 [facility] Comment on above: Result Comment: KDIG O [...] secretion. Performed By: #### C MP3 #### [address] [place] [address] Performed By: #### A CET4, CMP3, HEMDF, LIPA4, LACT3, MG3 #### [facility] [address] [facility] [place] [address] Protein [Mass/Vol] 7.1 g/dL Normal 6.3-8.2 [facility] Comment on above: Performed By: #### C MP3 #### [address] [place] [address] Performed By: #### A CET4, CMP3, HEMDF, LIPA4, LACT3, MG3 #### [address] [place] [address] Potassium [Moles/Vol] 3.3 mmol/L Low 3.5-5.1 [facility] Comment on above: Performed By: #### C MP3 #### [facility] [address] [facility] [place] [address] Performed By: #### A CET4, CMP3, HEMDF, LIPA4, LACT3, MG3 #### [facility] [address] [place] [address] Sodium [Moles/Vol] 123 mmol/L Low 135-145 [facility] Comment on above: Performed By: #### C MP3 #### [facility] [address] [place] [address] Performed By: #### A CET4, CMP3, HEMDF, LIPA4, LACT3, MG3 #### [facility] [address] [place] [address] Albumin [Mass/Vol] 4.1 g/dL Normal 3.5-5.0 [facility] Comment on above: Performed By: #### C MP3 #### [facility] [address] [place] [address] Performed By: #### A CET4, CMP3, HEMDF, LIPA4, LACT3, MG3 #### [facility] [address] [place] [address] Chloride [Moles/Vol] 91 mmol/L Low 98-107 [facility] Comment on above: Performed By: #### C MP3 #### [address] [place] [address] Performed By: #### A CET4, CMP3, HEMDF, LIPA4, LACT3, MG3 #### [facility] [address] [place] [address] Hemogram w/ Autodiffon 06-01 Abs Baso Cnt 0.0 10*3/uL Normal 0.0-0.2 [facility] Comment on above: Performed By: #### A CET4, CMP3, HEMDF, LIPA4, LACT3, MG3 #### [facility] [address] [place] [address] Abs Neutrophile Cnt 18.5 10*3/uL High 1.8-7.0 [facility] Comment on above: Performed By: #### A CET4, CMP3, HEMDF, LIPA4, LACT3, MG3 #### [facility] [address] [place] [address] Basophils/100 WBC (Bld) 0.0 % Normal 0.0-2.0 [facility] Comment on above: Performed By: #### A CET4, CMP3, HEMDF, LIPA4, LACT3, MG3 #### [facility] [address] [facility] [place] [address] Eosinophils (Bld) [#/Vol] 0.0 10*3/uL Normal 0.0-0.5 [facility] Comment on above: Performed By: #### A CET4, CMP3, HEMDF, LIPA4, LACT3, MG3 #### [facility] [address] [place] [address] Eosinophils/100 WBC (Bld) 0.0 % Low 1.0-6.0 [facility] Comment on above: Performed By: #### A CET4, CMP3, HEMDF, LIPA4, LACT3, MG3 #### [facility] [address] [facility] [place] [address] Erythrocyte distribution width (RBC) [Ratio] 12.5 % Normal 11.5-14.5 [facility] Comment on above: Performed By: #### A CET4, CMP3, HEMDF, LIPA4, LACT3, MG3 #### [facility] [address] [facility] [place] [address] Granulocytes/100 WBC (Bld) 94.4 % High 40.0-80.0 [facility] Comment on above: Performed By: #### A CET4, CMP3, HEMDF, LIPA4, LACT3, MG3 #### [facility] [address] [facility] [place] [address] Hematocrit (Bld) [Volume fraction] 39.3 % Normal 35.0-47.0 [facility] Comment on above: Performed By: #### A CET4, CMP3, HEMDF, LIPA4, LACT3, MG3 #### [facility] [address] [facility] [place] [address] Hemoglobin (Bld) [Mass/Vol] 13.9 g/dL Normal 11.7-16.0 [facility] Comment on above: Performed By: #### A CET4, CMP3, HEMDF, LIPA4, LACT3, MG3 #### [facility] [address] [place] [address] Lymphocytes (Bld) [#/Vol] 0.3 10*3/uL Low 1.0-4.3 [facility] Comment on above: Performed By: #### A CET4, CMP3, HEMDF, LIPA4, LACT3, MG3 #### [facility] [address] [place] [address] Lymphocytes/100 WBC (Bld) 1.8 % Low 20.0-40.0 [facility] Comment on above: Performed By: #### A CET4, CMP3, HEMDF, LIPA4, LACT3, MG3 #### [facility] [address] [place] [address] MCH (RBC) [Entitic mass] 32.4 pg Normal 26.0-34.0 [facility] Comment on above: Performed By: #### A CET4, CMP3, HEMDF, LIPA4, LACT3, MG3 #### [facility] [address] [facility] [place] [address] MCHC 35.4 % Normal 32.0-36.0 [facility] Comment on above: Performed By: #### A CET4, CMP3, HEMDF, LIPA4, LACT3, MG3 #### [facility] [address] [facility] [place] [address] MCV (RBC) [Entitic vol] 91.4 fL Normal 79.0-98.0 [facility] Comment on above: Performed By: #### A CET4, CMP3, HEMDF, LIPA4, LACT3, MG3 #### [facility] [address] [place] [address] Monocytes (Bld) [#/Vol] 0.8 10*3/uL Normal 0.0-0.8 [facility] Comment on above: Performed By: #### A CET4, CMP3, HEMDF, LIPA4, LACT3, MG3 #### [facility] [address] [place] [address] Monocytes/100 WBC (Bld) 3.8 % Normal 2.0-10.0 [facility] Comment on above: Performed By: #### A CET4, CMP3, HEMDF, LIPA4, LACT3, MG3 #### [facility] [address] [place] [address] Platelet mean volume (Bld) [Entitic vol] 6.9 fL Low 7.4-10.4 [facility] Comment on above: Performed By: #### A CET4, CMP3, HEMDF, LIPA4, LACT3, MG3 #### [facility] [address] [place] [address] Platelets (Bld) [#/Vol] 380 10*3/uL Normal 140-440 [facility] Comment on above: Performed By: #### A CET4, CMP3, HEMDF, LIPA4, LACT3, MG3 #### [facility] [address] [place] [address] RBC (Bld) [#/Vol] 4.30 10*6/uL Normal 3.80-5.20 [facility] Comment on above: Performed By: #### A CET4, CMP3, HEMDF, LIPA4, LACT3, MG3 #### [facility] [address] [place] [address] WBC (Bld) [#/Vol] 19.6 10*3/uL High 3.6-10.7 [facility] Comment on above: Performed By: #### A CET4, CMP3, HEMDF, LIPA4, LACT3, MG3 #### [facility] [address] [place] [address] Lactic Acidon 06-01-2021 Lactate [Moles/Vol] 1.1 mmol/L Normal 0.7-2.0 [facility] Comment on above: Performed By: #### A CET4, CMP3, HEMDF, LIPA4, LACT3, MG3 #### [facility] [address] [place] [address] Lipaseon 06-01-2021 Lipase [Catalytic activity/Vol] 5709 U/L High 23-300 [facility] Comment on above: Performed By: #### A CET4, CMP3, HEMDF, LIPA4, LACT3, MG3 #### [facility] [address] [place] [address] Magnesiumon 06-01-2021 Magnesium [Mass/Vol] 1.5 mg/dL Low 1.6-2.3 [facility] Comment on above: Performed By: #### A MY3, CMP3, HEMDF, LIPA4 #### [facility] [address] [place] [address] CR Spine Lumbosacral 4+ View son 05-07-2021 CR Spine Lumbosacral 4+ Views Patient Name: HELEN LIEBERMAN Diagnostic Radiology ACCESSION EXAM DATE/TIME PROCEDURE ORDERING PROVIDER [id number] 05/07/2021 14:32 EDT CR Spine Lumbosacral 4+ MD ROSENDO, RICCI RAMOS CPT code 05738 Reason For Exam (CR Spine Lumbosacral 4+ [...] Transcribed Date and Time: 05/08/2021 11:52 Normal [facility] Gliadin Abson 02-26-2021 Gliadin Ab, IgA 4 Units Normal 0-19 [facility] Comment on above: Result Comment: INTE RPRETIVE INFORMATION: Deamidated Gliadin Peptide (DGP) Ab, IgA 19 Units or less: ........... Negative 20-30 Units: ................ Weak Positive 31 Units or greater: ........ Positive Performed By: #### A MY3, CMP3, HEMDF, LIPA4 #### [facility] [address] [place] [address] Gliadin Ab, IgG 2 Units Normal 0-19 [facility] Comment on above: Result Comment: INTE RPRETIVE INFORMATION: Deamidated Gliadin Peptide (DGP) Ab, IgG 19 Units or less: ........... Negative 20-30 Units: ................ Weak Positive 31 Units or greater: ........ Positive Performed By: [employer] [address] [place] [id number] [employer] Mechanic: Larissa Meza MD Performed By: #### A MY3, CMP3, HEMDF, LIPA4 #### [facility] [address] [place] [address] TTG, IgAon 02-26-2021 TTG, IgA < 2 Normal 0-3 [facility] Comment on above: Result Comment: INTE RPRETIVE [...] positive predictive value for disease. Performed By: [employer] [address] [place] [address] Aircraft Motor Mechanic: Larissa Meza MD Performed By: #### A MY3, CMP3, HEMDF, LIPA4 #### [employer] [facility] [address] [place] [address] CBC Auto DifferentialOrdered By: Larissa Wynn on 02-24-2021 Absolute Baso # 0.0 10*3/uL 0.0 - 0.2 10*3/uL [employer] Work Phone: Absolute Neut # 3.6 10*3/uL 1.8 - 7.0 10*3/uL [facility] Work Phone: Basophils/100 WBC (Bld) 0.4 % 0.0 - 2.0 % [employer] Work Phone: Eosinophils (Bld) [#/Vol] 0.1 10*3/uL 0.0 - 0.5 10*3/uL [employer] Work Phone: Eosinophils/100 WBC (Bld) 2.1 % 1.0 - 6.0 % [employer] Work Phone: Granulocytes/100 WBC (Bld) 67.0 % 40.0 - 80.0 % [employer] Work Phone: Hematocrit (Bld) [Volume fraction] 36.0 % 35.0 - 47.0 % [employer] Work Phone: Hemoglobin.gastrointest inal spec 1 Ql (Stl) 12.5 g/dL 11.7 - 16.0 g/dL [facility] Work Phone: [phone] Interpretation and review of laboratory results Abnormal [facility] Work Phone: Lymphocytes (Bld) [#/Vol] 1.1 10*3/uL [...] 10.5 % High 2.0 - 10.0 % [employer] Work Phone: Platelet distribution width (Bld) [Ratio] 12.7 % 11.5 - 14.5 % [employer] Work Phone: Platelet mean volume (Bld) [Entitic vol] 6.8 fL Low 7.4 - 10.4 fL [facility] Work Phone: Platelets (Bld) [#/Vol] 304 10*3/uL 140 - 440 10*3/uL [facility] Work Phone: RBC (Bld) [#/Vol] 3.76 10*6/uL Low 3.80 - 5.2 0 10*6/uL [facility] Work Phone: WBC (Bld) [#/Vol] 5.3 10*3/uL 3.6 - 10.7 10*3/uL [facility] Work Phone: Test Performed by [facility], [facility] [address] , [place], [place] [address] [facility] Work Phone: [employer] Work Phone: Comp Metabolic Panelon 02-24 ALP [Catalytic activity/Vol] 50 U/L Normal 38-126 [facility] Comment on above: Performed By: #### A MY3, CMP3, HEMDF, LIPA4 #### [facility] [address] [place] [address] ALT [Catalytic activity/Vol] 14 U/L Normal 0-34 [facility] Comment on above: Result Comment: The ALT test is performed by an updated assay method. Please note that the reference intervals have been changed and are now sex specific. Performed By: #### A MY3, CMP3, HEMDF, LIPA4 #### [facility] [address] [place] [address] Calcium [Mass/Vol] 9.4 mg/dL Normal 8.4-10.4 [facility] Comment on above: Performed By: #### A MY3, CMP3, HEMDF, LIPA4 #### [facility] [address] [place] [address] Glucose [Mass/Vol] 101 mg/dL High 70-100 [facility] Comment on above: Performed By: #### A MY3, CMP3, HEMDF, LIPA4 #### [facility] [address] [place] [address] Urea nitrogen [Mass/Vol] 12 mg/dL Normal 7-20 [facility] Comment on above: Performed By: #### A MY3, CMP3, HEMDF, LIPA4 #### [facility] [address] [place] [address] Anion gap [Moles/Vol] 5 mmol/L Normal 3-13 [facility] Comment on above: Performed By: #### A MY3, CMP3, HEMDF, LIPA4 #### [facility] [address] [place] [address] AST [Catalytic activity/Vol] 25 U/L Normal 15-46 [facility] Comment on above: Performed By: #### A MY3, CMP3, HEMDF, LIPA4 #### [facility] [address] [place] [address] Bilirubin [Mass/Vol] 1.0 mg/dL Normal 0.2-1.3 [facility] Comment on above: Performed By: #### A MY3, CMP3, HEMDF, LIPA4 #### [facility] [address] [place] [address] CO2 [Moles/Vol] 30 mmol/L Normal 22-30 [facility] Comment on above: Performed By: #### A MY3, CMP3, HEMDF, LIPA4 #### [facility] [address] [place] [address] Creatinine [Mass/Vol] 0.81 mg/dL Normal 0.52-1.25 [facility] Comment on above: Performed By: #### A MY3, CMP3, HEMDF, LIPA4 #### [facility] [address] [place] [address] GFR/1.73 sq M.predicted among blacks MDRD (S/P/Bld) [Vol rate/Area] 77.1 mL/min/{1.73_m2} Normal >60 [facility] Comment on above: Performed By: #### A MY3, CMP3, HEMDF, LIPA4 #### [facility] [address] [place] [address] GFR/1.73 sq M.predicted among non-blacks MDRD (S/P/Bld) [Vol rate/Area] 66.5 mL/min/{1.73_m2} Normal >60 [facility] Comment on above: Result Comment: KDIG O [...] #### A MY3, CMP3, HEMDF, LIPA4 #### [facility] [address] [place] [address] Protein [Mass/Vol] 7.1 g/dL Normal 6.3-8.2 [facility] Comment on above: Performed By: #### A MY3, CMP3, HEMDF, LIPA4 #### [facility] [address] [place] [address] Chloride [Moles/Vol] 95 mmol/L Low 98-107 [facility] Comment on above: Performed By: #### A MY3, CMP3, HEMDF, LIPA4 #### [facility] [address] [place] [address] Potassium [Moles/Vol] 3.9 mmol/L Normal 3.5-5.1 [facility] Comment on above: Performed By: #### A MY3, CMP3, HEMDF, LIPA4 #### [facility] [address] [place] [address] Sodium [Moles/Vol] 130 mmol/L Low 135-145 [facility] Comment on above: Performed By: #### A MY3, CMP3, HEMDF, LIPA4 #### [facility] [address] [place] [address] Albumin [Mass/Vol] 4.1 g/dL Normal 3.5-5.0 [facility] Comment on above: Performed By: #### A MY3, CMP3, HEMDF, LIPA4 #### [facility] [address] [place] [address] Comprehensive Metabolic Pane lOrdered By: Larissa Wynn on 02-24-2021 Albumin [Mass/Vol] 4.1 g/dL 3.5 - 5.0 g/dL [facility] Work Phone: ALP (Bld) [Catalytic activity/Vol] 50 U/L 38 - 126 U/L [facility] Work Phone: ALT [Catalytic activity/Vol] 14 U/L 0 - 34 U/L [facility] Work Phone: Comment on above: The ALT test is perf ormed by an updated assay method. Please note that the reference intervals have been changed and are now sex specific. Anion gap [Moles/Vol] 5 mmol/L 3 - 13 mmol/L [facility] Work Phone: [phone] AST [Catalytic activity/Vol] 25 U/L 15 - 46 U/L [facility] Work Phone: [phone] Bilirubin [Mass/Vol] 1.0 mg/dL 0.2 - 1 .3 mg/dL [facility] Work Phone: [phone] Calcium [Mass/Vol] 9.4 mg/dL 8.4 - 10. 4 mg/dL [facility] Work Phone: [phone] Chloride [Moles/Vol] 95 mmol/L Low 98 - 10 7 mmol/L [facility] Work Phone: [phone] CO2 [Moles/Vol] 30 mmol/L 22 - 30 mmol/L [facility] Work Phone: [phone] Creatinine [Mass/Vol] 0.81 mg/dL 0.52 - 1.25 mg/dL [facility] Work Phone: [phone] EGFR IF NonAfrican Brazilian 66.5 mL/min >60 [facility] Work Phone: Comment [...] 6.3 - 8.2 g/dL [facility] Work Phone: [phone] GFR/1.73 sq M.predicted among blacks MDRD (S/P/Bld) [Vol rate/Area] 77.1 mL/min/{1.73_m2} >60 [facility] Work Phone: [phone] Glucose [Mass/Vol] 101 mg/dL High 70 - 100 mg/dL [facility] Work Phone: [phone] Interpretation and review of laboratory results Abnormal [facility] Work Phone: [phone] Potassium [Moles/Vol] 3.9 mmol/L 3.5 - 5.1 mmol/L [facility] Work Phone: [phone] Sodium [Moles/Vol] 130 mmol/L Low 135 - 145 mmol/L [facility] Work Phone: [phone] Urea nitrogen (BldV) [Mass/Vol] 12 mg/dL 7 - 20 mg/dL [facility] Work Phone: [phone] Test Performed by [facility], [address] , [place], [place] [address] Work Phone: [phone] [facility] Work Phone: [phone] Hemogram w/ Autodiffon 02-24 Abs Baso Cnt 0.0 10*3/uL Normal 0.0-0.2 [facility] Comment on above: Performed By: #### A MY3, CMP3, HEMDF, LIPA4 #### [facility] [employer] [facility] [address] [place] [address] Abs Neutrophile Cnt 3.6 10*3/uL Normal 1.8-7.0 [facility] Comment on above: Performed By: #### A MY3, CMP3, HEMDF, LIPA4 #### [facility] [employer] [facility] [address] [place] [place] [address] Basophils/100 WBC (Bld) 0.4 % Normal 0.0-2.0 [facility] Comment on above: Performed By: #### A MY3, CMP3, HEMDF, LIPA4 #### [facility] [address] [place] [address] Eosinophils (Bld) [#/Vol] 0.1 10*3/uL Normal 0.0-0.5 [facility] Comment on above: Performed By: #### A MY3, CMP3, HEMDF, LIPA4 #### [facility] [address] [place] [address] Eosinophils/100 WBC (Bld) 2.1 % Normal 1.0-6.0 [facility] Comment on above: Performed By: #### A MY3, CMP3, HEMDF, LIPA4 #### [facility] [address] [place] [address] Erythrocyte distribution width (RBC) [Ratio] 12.7 % Normal 11.5-14.5 [facility] Comment on above: Performed By: #### A MY3, CMP3, HEMDF, LIPA4 #### [facility] [address] [place] [address] Granulocytes/100 WBC (Bld) 67.0 % Normal 40.0-80.0 [facility] Comment on above: Performed By: #### A MY3, CMP3, HEMDF, LIPA4 #### [facility] [address] [place] [address] Hematocrit (Bld) [Volume fraction] 36.0 % Normal 35.0-47.0 [facility] Comment on above: Performed By: #### A MY3, CMP3, HEMDF, LIPA4 #### [facility] [address] [place] [address] Hemoglobin (Bld) [Mass/Vol] 12.5 g/dL Normal 11.7-16.0 [facility] Comment on above: Performed By: #### A MY3, CMP3, HEMDF, LIPA4 #### [facility] [address] [place] [address] Lymphocytes (Bld) [#/Vol] 1.1 10*3/uL Normal 1.0-4.3 [facility] Comment on above: Performed By: #### A MY3, CMP3, HEMDF, LIPA4 #### [facility] [address] [place] [address] Lymphocytes/100 WBC (Bld) 20.0 % Normal 20.0-40.0 [facility] Comment on above: Performed By: #### A MY3, CMP3, HEMDF, LIPA4 #### [facility] [address] [place] [address] MCH (RBC) [Entitic mass] 33.2 pg Normal 26.0-34.0 [facility] Comment on above: Performed By: #### A MY3, CMP3, HEMDF, LIPA4 #### [facility] [address] [place] [address] MCHC 34.6 % Normal 32.0-36.0 [facility] Comment on above: Performed By: #### A MY3, CMP3, HEMDF, LIPA4 #### [facility] [address] [place] [address] MCV (RBC) [Entitic vol] 95.9 fL Normal 79.0-98.0 [facility] Comment on above: Performed By: #### A MY3, CMP3, HEMDF, LIPA4 #### [facility] [address] [place] [address] Monocytes (Bld) [#/Vol] 0.6 10*3/uL Normal 0.0-0.8 [facility] Comment on above: Performed By: #### A MY3, CMP3, HEMDF, LIPA4 #### [facility] [address] [place] [address] Monocytes/100 WBC (Bld) 10.5 % High 2.0-10.0 [facility] Comment on above: Performed By: #### A MY3, CMP3, HEMDF, LIPA4 #### [facility] [address] [place] [address] Platelet mean volume (Bld) [Entitic vol] 6.8 fL Low 7.4-10.4 [facility] Comment on above: Performed By: #### A MY3, CMP3, HEMDF, LIPA4 #### [facility] [address] [place] [address] Platelets (Bld) [#/Vol] 304 10*3/uL Normal 140-440 [facility] Comment on above: Performed By: #### A MY3, CMP3, HEMDF, LIPA4 #### [facility] [address] [place] [address] RBC (Bld) [#/Vol] 3.76 10*6/uL Low 3.80-5.20 [facility] Comment on above: Performed By: #### A MY3, CMP3, HEMDF, LIPA4 #### [facility] [address] [place] [address] WBC (Bld) [#/Vol] 5.3 10*3/uL Normal 3.6-10.7 [facility] Comment on above: Performed By: #### A MY3, CMP3, HEMDF, LIPA4 #### [facility] [address] [place] [address] CKon 01-07-2021 CK [Catalytic activity/Vol] 132 U/L Normal 30-170 [facility] Comment on above: Performed By: #### A MY3, CMP3, HEMDF, LIPA4 #### [facility] [address] [place] [address] CT Abdomen Pelvis W Contrast on 01-07-2021 Patient Name: HELEN GUTIERREZ [employer] ACCESSION EXAM DATE/TIME PROCEDURE ORDERING PROVIDER [id number] 01/07/2021 17:[address] Abdomen/Pelvis w/ IV KODAK SALAZAR Contrast (IV Onl CPT code 55616 Q9967 Reason For Exam (CT Abdomen/Pelvis w/ [...] Time: 01/07/2021 5:33 [facility] Work Phone: [place], [facility] Incoming Radiology Results From [employer] - 01/07/2021 5:33 PM EDT [facility]: [id number] ACCESSION EXAM DATE/TIME PROCEDURE ORDERING PROVIDER [id number] 01/07/2021 17:[address] Abdomen/Pelvis w/ IV KODAK SALAZAR Contrast (IV Onl CPT code 20406 Q9967 Reason For Exam (CT Abdomen/Pelvis w/ [...] Abdomen/Pelvis w/ Contrast [facility]: [id number] Computed Tomography ACCESSION EXAM DATE/TIME PROCEDURE ORDERING PROVIDER [id number] 01/07/2021 17:[address] Abdomen/Pelvis w/ IV KODAK SALAZAR Contrast (IV Onl CPT code 69668 Q9967 Reason For Exam (CT Abdomen/Pelvis w/ [...] Transcribed Date and Time: 01/07/2021 5:33 Normal [facility] CT Head WO Contraston 2020 Patient Name: HELEN GUTIERREZ Computed Tomography ACCESSION EXAM DATE/TIME PROCEDURE ORDERING PROVIDER [id number] 01/07/2021 15:[address] Head or Brain w/o KODAK SALAZAR Contrast CPT code 93453 Reason For Exam (CT Head or Brain [...] AHMAD Transcribed Date and Time: 01/07/2021 3:54 [facility] Work Phone: [place], [facility] Incoming Radiology Results From [facility] - 01/07/2021 3:54 PM EDT Patient Name: HELEN LIEBERMAN Computed Tomography ACCESSION EXAM DATE/TIME PROCEDURE ORDERING PROVIDER [id number] 01/07/2021 15:[address] Head or Brain w/o KODAK SALAZAR Contrast CPT code 90348 Reason For Exam (CT Head or Brain [...] Tomography ACCESSION EXAM DATE/TIME PROCEDURE ORDERING PROVIDER [id number] 01/07/2021 15:[address] Head or Brain w/o KODAK SALAZAR Contrast CPT code 12167 Reason For Exam (CT Head or Brain [...] Transcribed Date and Time: 01/07/2021 3:54 Normal [facility] Comp Metabolic Panelon 01-07 ALP [Catalytic activity/Vol] 81 U/L Normal 38-126 [facility] Comment on above: Performed By: #### A MY3, CMP3, HEMDF, LIPA4 #### [facility] [address] [place] [address] ALT [Catalytic activity/Vol] 52 U/L High 0-34 [facility] Comment on above: Result Comment: The ALT test is performed by an updated assay method. Please note that the reference intervals have been changed and are now sex specific. Performed By: #### A MY3, CMP3, HEMDF, LIPA4 #### [facility] [address] [place] [address] Calcium [Mass/Vol] 9.6 mg/dL Normal 8.4-10.4 [facility] Comment on above: Performed By: #### A MY3, CMP3, HEMDF, LIPA4 #### [facility] [address] [place] [address] Glucose [Mass/Vol] 141 mg/dL High 70-100 [facility] Comment on above: Performed By: #### A MY3, CMP3, HEMDF, LIPA4 #### [facility] [address] [place] [address] Protein [Mass/Vol] 7.4 g/dL Normal 6.3-8.2 [facility] Comment on above: Performed By: #### A MY3, CMP3, HEMDF, LIPA4 #### [facility] [address] [place] [address] Urea nitrogen [Mass/Vol] 15 mg/dL Normal 7-20 [facility] Comment on above: Performed By: #### A MY3, CMP3, HEMDF, LIPA4 #### [facility] [address] [place] [address] Anion gap [Moles/Vol] 9 mmol/L Normal 3-13 [facility] Comment on above: Performed By: #### A MY3, CMP3, HEMDF, LIPA4 #### [facility] [address] [place] [address] AST [Catalytic activity/Vol] 141 U/L High 15-46 [facility] Comment on above: Performed By: #### A MY3, CMP3, HEMDF, LIPA4 #### [facility] [address] [place] [address] Bilirubin [Mass/Vol] 1.4 mg/dL High 0.2-1.3 [facility] Comment on above: Performed By: #### A MY3, CMP3, HEMDF, LIPA4 #### [facility] [address] [place] [address] CO2 [Moles/Vol] 27 mmol/L Normal 22-30 [facility] Comment on above: Performed By: #### A MY3, CMP3, HEMDF, LIPA4 #### [facility] [address] [place] [address] Creatinine [Mass/Vol] 0.82 mg/dL Normal 0.52-1.25 [facility] Comment on above: Performed By: #### A MY3, CMP3, HEMDF, LIPA4 #### [facility] [address] [place] [address] GFR/1.73 sq M.predicted among blacks MDRD (S/P/Bld) [Vol rate/Area] 76.0 mL/min/{1.73_m2} Normal >60 [facility] Comment on above: Performed By: #### A MY3, CMP3, HEMDF, LIPA4 #### [facility] [address] [place] [address] GFR/1.73 sq M.predicted among non-blacks MDRD (S/P/Bld) [Vol rate/Area] 65.6 mL/min/{1.73_m2} Normal >60 [facility] Comment on above: Result Comment: KDIG O [...] #### A MY3, CMP3, HEMDF, LIPA4 #### [facility] [address] [facility] [place] [address] Potassium [Moles/Vol] 3.8 mmol/L Normal 3.5-5.1 [facility] Comment on above: Performed By: #### A MY3, CMP3, HEMDF, LIPA4 #### [facility] [address] [facility] [place] [address] Sodium [Moles/Vol] 127 mmol/L Low 135-145 [facility] Comment on above: Performed By: #### A MY3, CMP3, HEMDF, LIPA4 #### [facility] [address] [facility] [place] [address] Albumin [Mass/Vol] 4.5 g/dL Normal 3.5-5.0 [facility] Comment on above: Performed By: #### A MY3, CMP3, HEMDF, LIPA4 #### [facility] [address] [facility] [place] [address] Chloride [Moles/Vol] 91 mmol/L Low 98-107 [facility] Comment on above: Performed By: #### A MY3, CMP3, HEMDF, LIPA4 #### [facility] [address] [facility] [place] [address] Complete Urinalysison 2020 Appearance (U) Clear Normal Clear [facility] Comment on above: Result Comment: . Performed By: #### A MY3, CMP3, HEMDF, LIPA4 #### [facility] [address] [place] [address] Bilirubin,Urine Negative Normal Negative [facility] Comment on above: Result Comment: . Performed By: #### A MY3, CMP3, HEMDF, LIPA4 #### [facility] [address] [place] [address] Color (U) COLORLESS Normal Lt. Yellow [facility] Comment on above: Result Comment: . Performed By: #### A MY3, CMP3, HEMDF, LIPA4 #### [facility] [address] [place] [address] Glucose Ql (U) Normal Normal Normal (<70) [facility] Comment on above: Result Comment: . Performed By: #### A MY3, CMP3, HEMDF, LIPA4 #### [facility] [address] [place] [address] Ketone,Urine Negative Normal Negative [facility] Comment on above: Result Comment: . Performed By: #### A MY3, CMP3, HEMDF, LIPA4 #### [facility] [address] [place] [address] Leukocytes,Urine Negative Normal Negative [facility] Comment on above: Result Comment: . Performed By: #### A MY3, CMP3, HEMDF, LIPA4 #### [facility] [address] [place] [address] Nitrites,Urine Negative Normal Negative [facility] Comment on above: Result Comment: . Performed By: #### A MY3, CMP3, HEMDF, LIPA4 #### [facility] [address] [place] [address] Occult Blood,Urine Negative Normal Negative [facility] Comment on above: Result Comment: . Performed By: #### A MY3, CMP3, HEMDF, LIPA4 #### [facility] [address] [place] [address] pH,Urine 7.5 Normal 5.0-8.0 [facility] Comment on above: Result Comment: . Performed By: #### A MY3, CMP3, HEMDF, LIPA4 #### [facility] [address] [place] [address] Specific [place],Urine 1.011 Normal 1.005 - 1.030 [facility] Comment on above: Result Comment: . Performed By: #### A MY3, CMP3, HEMDF, LIPA4 #### [facility] [address] [place] [address] Total Protein,Urine Negative Normal Negative [facility] Comment on above: Result Comment: . Performed By: #### A MY3, CMP3, HEMDF, LIPA4 #### [facility] [address] [place] [address] Urobilinogen,Urine Normal Normal Normal (0-1) [facility] Comment on above: Result Comment: . Performed By: #### A MY3, CMP3, HEMDF, LIPA4 #### [facility] [address] [place] [address] Comprehensive Metabolic Pane shaun 01-07-2021 Albumin [Mass/Vol] 4.5 g/dL 3.5 - 5.0 g/dL [facility] Work Phone: ALP (Bld) [Catalytic activity/Vol] 81 U/L 38 - 126 U/L [facility] Work Phone: ALT [Catalytic activity/Vol] 52 U/L High 0 - 34 U/L [facility] Work Phone: Comment on above: The ALT test is perf ormed by an updated assay method. Please note that the reference intervals have been changed and are now sex specific. Anion gap [Moles/Vol] 9 mmol/L 3 - 13 mmol/L [facility] Work Phone: AST [Catalytic activity/Vol] 141 U/L High 15 - 46 U/L [facility] Work Phone: Bilirubin [Mass/Vol] 1.4 mg/dL High 0.2 - 1 .3 mg/dL [facility] Work Phone: [phone] Calcium [Mass/Vol] 9.6 mg/dL 8.4 - 10. 4 mg/dL [facility] Work Phone: [phone] Chloride [Moles/Vol] 91 mmol/L Low 98 - 10 7 mmol/L [facility] Work Phone: [phone] CO2 [Moles/Vol] 27 mmol/L 22 - 30 mmol/L [facility] Work Phone: [phone] Creatinine [Mass/Vol] 0.82 mg/dL 0.52 - 1.25 mg/dL [facility] Work Phone: [phone] EGFR IF NonAfrican Brazilian 65.6 mL/min >60 [facility] Work Phone: [phone] Comment on above: KDIGO guidelines pro vide [...] fraction] 7.4 g/dL 6.3 - 8.2 g/dL [facility] Work Phone: [phone] GFR/1.73 sq M predicted among blacks MDRD (S/P/Bld) [Vol rate/Area] 76.0 mL/min/{1.73_m2} >60 [facility] Work Phone: [phone] Glucose [Mass/Vol] 141 mg/dL High 70 - 100 mg/dL [facility] Work Phone: [phone] Interpretation and review of laboratory results Abnormal [facility] Work Phone: [phone] Potassium [Moles/Vol] 3.8 mmol/L 3.5 - 5.1 mmol/L [facility] Work Phone: [phone] Sodium [Moles/Vol] 127 mmol/L Low 135 - 145 mmol/L [facility] Work Phone: 1 Urea nitrogen (BldV) [Mass/Vol] 15 mg/dL 7 - 20 mg/dL [facility] Work Phone: 1 Hemogram (CBC) w/Auto Diffon 01-07-2021 Absolute Baso # 0.0 10*3/uL 0.0 - 0.2 10*3/uL [facility] Work Phone: 1 Absolute Neut # 5.9 10*3/uL 1.8 - 7.0 10*3/uL [facility] Work Phone: 1 Basophils/100 WBC (Bld) 0.6 % 0.0 - 2.0 % [facility] Work Phone: Eosinophils (Bld) [#/Vol] 0.1 10*3/uL 0.0 - 0.5 10*3/uL [facility] Work Phone: 1 Eosinophils/100 WBC (Bld) 1.4 % 1.0 - 6.0 % [facility] Work Phone: 1 Granulocytes/100 WBC (Bld) 74.1 % 40.0 - 80.0 % [facility] Work Phone: Hematocrit (Bld) [Volume fraction] 37.0 % 35.0 - 47.0 % [facility] Work Phone: Hemoglobin.gastrointest inal spec 1 Ql (Stl) 13.2 g/dL 11.7 - 16.0 g/dL [facility] Work Phone: Interpretation and review of laboratory results Abnormal [facility] Work Phone: Lymphocytes (Bld) [#/Vol] 1.3 10*3/uL 1.0 - 4.3 10*3/uL [facility] Work Phone: Lymphocytes/100 WBC (Bld) 15.9 % Low 20.0 - 40.0 % [facility] Work Phone: 1 MCH (RBC) [Entitic mass] 32.3 pg 26.0 - 34.0 pg [facility] Work Phone: 1 MCHC (RBC) [Mass/Vol] 35.6 % 32.0 - 36.0 % [facility]: 1 MCV (RBC) [Entitic vol] 90.5 fL 79.0 - 98.0 fL [facility] Work Phone: 1 Monocytes (Bld) [#/Vol] 0.6 10*3/uL 0.0 - 0.8 10*3/uL [facility] Work Phone: 1() Monocytes/100 WBC (Bld) 8.0 % 2.0 - 10.0 % [facility] Work Phone: 1 Platelet distribution width (Bld) [Ratio] 14.0 % 11.5 - 14.5 % [facility] Phone: 1 Platelet mean volume (Bld) [Entitic vol] 6.9 fL Low 7.4 - 10.4 fL [facility] Phone: () Platelets (Bld) [#/Vol] 359 10*3/uL 140 - 440 10*3/uL [facility] Work Phone: 1) RBC (Bld) [#/Vol] 4.09 10*6/uL 3.80 - 5.2 0 10*6/uL [facility] Work Phone: 1) WBC (Bld) [#/Vol] 7.9 10*3/uL 3.6 - 10.7 10*3/uL [facility] Work Phone: 1 Test Performed by [facility], [address] , [address] Work Phone: 1 22 Hemogram w/ Autodiffon 01-07 Abs Baso Cnt 0.0 10*3/uL Normal 0.0-0.2 [facility] Comment on above: Performed By: #### H EMDF #### [facility] [address] [place] [address] Abs Neutrophile Cnt 5.9 10*3/uL Normal 1.8-7.0 [facility] Comment on above: Performed By: #### H EMDF #### [facility] [address] [place] [address] Basophils/100 WBC (Bld) 0.6 % Normal 0.0-2.0 [facility] Comment on above: Performed By: #### H EMDF #### [facility] [address] [place] [address] Eosinophils (Bld) [#/Vol] 0.1 10*3/uL Normal 0.0-0.5 [facility] Comment on above: Performed By: #### H EMDF #### [facility] [address] [place] [address] Eosinophils/100 WBC (Bld) 1.4 % Normal 1.0-6.0 [facility] Comment on above: Performed By: #### H EMDF #### [facility] [address] [place] [address] Erythrocyte distribution width (RBC) [Ratio] 14.0 % Normal 11.5-14.5 [facility] Comment on above: Performed By: #### H EMDF #### [facility] [address] [place] [address] Granulocytes/100 WBC (Bld) 74.1 % Normal 40.0-80.0 [facility] Comment on above: Performed By: #### H EMDF #### [facility] [address] [place] [address] Hematocrit (Bld) [Volume fraction] 37.0 % Normal 35.0-47.0 [facility] Comment on above: Performed By: #### H EMDF #### [facility] [address] [place] [address] Hemoglobin (Bld) [Mass/Vol] 13.2 g/dL Normal 11.7-16.0 [facility] Comment on above: Performed By: #### H EMDF #### [facility] [address] [place] [address] Lymphocytes (Bld) [#/Vol] 1.3 10*3/uL Normal 1.0-4.3 [facility] Comment on above: Performed By: #### H EMDF #### [facility] [address] [place] [address] Lymphocytes/100 WBC (Bld) 15.9 % Low 20.0-40.0 [facility] Comment on above: Performed By: #### H EMDF #### [facility] [address] [place] [address] MCH (RBC) [Entitic mass] 32.3 pg Normal 26.0-34.0 [facility] Comment on above: Performed By: #### H EMDF #### [facility] [address] [place] [address] MCHC 35.6 % Normal 32.0-36.0 [facility] Comment on above: Performed By: #### H EMDF #### [facility] [address] [place] [address] MCV (RBC) [Entitic vol] 90.5 fL Normal 79.0-98.0 [facility] Comment on above: Performed By: #### H EMDF #### [facility] [address] [place] [address] Monocytes (Bld) [#/Vol] 0.6 10*3/uL Normal 0.0-0.8 [facility] Comment on above: Performed By: #### H EMDF #### [facility] [address] [place] [address] Monocytes/100 WBC (Bld) 8.0 % Normal 2.0-10.0 [facility] Comment on above: Performed By: #### H EMDF #### [facility] [address] [place] [address] Platelet mean volume (Bld) [Entitic vol] 6.9 fL Low 7.4-10.4 [facility] Comment on above: Performed By: #### H EMDF #### [facility] [address] [place] [address] Platelets (Bld) [#/Vol] 359 10*3/uL Normal 140-440 [facility] Comment on above: Performed By: #### H EMDF #### [facility] [address] [place] [address] RBC (Bld) [#/Vol] 4.09 10*6/uL Normal 3.80-5.20 [facility] Comment on above: Performed By: #### H EMDF #### [facility] [address] [place] [address] WBC (Bld) [#/Vol] 7.9 10*3/uL Normal 3.6-10.7 [facility] Comment on above: Performed By: #### H EMDF #### [facility] [address] [place] [address] Lipaseon 01-07-2021 Lipase [Catalytic activity/Vol] 228 U/L Normal 23-300 [facility] Comment on above: Performed By: #### A MY3, CMP3, HEMDF, LIPA4 #### [facility] [address] [place] [address] Lipase [Catalytic activity/Vol] 228 U/L 23 - 300 U/L [facility] Work Phone: Otheron 01-07-2021 Test Performed by [facility], [address] , [address] Work Phone: Troponinon 01-07-2021 Troponin I.cardiac [Mass/Vol] ng/mL 0.000 - 0.034 ng/mL [facility] Work Phone: Comment on above: . Test Performed by [facility], [address] , [address] Work Phone: Troponin Ion 01-07-2021 Troponin I.cardiac [Mass/Vol] ng/mL Normal 0.000-0.034 [facility] Comment on above: Result Comment: . Performed By: #### A MY3, CMP3, HEMDF, LIPA4 #### [facility] [address] [place] [address] Comp Metabolic Panelon 08-25 Calcium [Mass/Vol] 10.1 mg/dL Normal 8.4-10.4 [facility] Comment on above: Performed By: #### A MY3, CMP3, HEMDF, LIPA4 #### [facility] [address] [place] [address] Anion Gap 10 Normal [facility] Comment on above: Performed By: #### A MY3, CMP3, HEMDF, LIPA4 #### [facility] [address] [place] [address] Bilirubin [Mass/Vol] 1.0 mg/dL Normal 0.2-1.3 [facility] Comment on above: Performed By: #### A MY3, CMP3, HEMDF, LIPA4 #### [facility] [address] [place] [address] GFR/1.73 sq M.predicted among non-blacks MDRD (S/P/Bld) [Vol rate/Area] 64.8 mL/min/{1.73_m2} Normal >60 [facility] Comment on above: Result Comment: KDIG O [...] #### A MY3, CMP3, HEMDF, LIPA4 #### [facility] [address] [place] [address] Potassium [Moles/Vol] 4.6 mmol/L Normal 3.5-5.1 [facility] Comment on above: Performed By: #### A MY3, CMP3, HEMDF, LIPA4 #### [facility] [address] [place] [address] Sodium [Moles/Vol] 131 mmol/L Low 135-145 [facility] Comment on above: Performed By: #### A MY3, CMP3, HEMDF, LIPA4 #### [facility] [address] [place] [address] Albumin [Mass/Vol] 4.5 g/dL Normal 3.5-5.0 [facility] Comment on above: Performed By: #### A MY3, CMP3, HEMDF, LIPA4 #### [facility] [address] [place] [address] Chloride [Moles/Vol] 93 mmol/L Low 98-107 [facility] Comment on above: Performed By: #### A MY3, CMP3, HEMDF, LIPA4 #### [facility] [address] [place] [address] ALP [Catalytic activity/Vol] 76 U/L Normal 38-126 [facility] [place] Comment on above: Performed By: #### A MY3, CMP3, HEMDF, LIPA4 #### [facility] [address] [place] [address] ALT [Catalytic activity/Vol] 11 U/L Normal 0-34 [facility] [place] Comment on above: The ALT test is perf ormed by an updated assay method. Please note that the reference intervals have been changed and are now sex specific. Result Comment: The ALT test is performed by an updated assay method. Please note that the reference intervals have been changed and are now sex specific. Performed By: #### A MY3, CMP3, HEMDF, LIPA4 #### [facility] [address] [place] [address] AST [Catalytic activity/Vol] 34 U/L Normal 15-46 [facility] [place] Comment on above: Performed By: #### A MY3, CMP3, HEMDF, LIPA4 #### [facility] [address] [place] [address] CO2 [Moles/Vol] 29 mmol/L Normal 22-30 [facility] [place] Comment on above: Performed By: #### A MY3, CMP3, HEMDF, LIPA4 #### [facility] [address] [place] [address] Creatinine [Mass/Vol] 0.83 mg/dL Normal 0.52-1.25 [place], [place] Comment on above: Performed By: #### A MY3, CMP3, HEMDF, LIPA4 #### [facility] [address] [place] [address] GFR/1.73 sq M predicted among blacks MDRD (S/P/Bld) [Vol rate/Area] 75.1 mL/min/{1.73_m2} Normal >60 [place] Comment on above: Performed By: #### A MY3, CMP3, HEMDF, LIPA4 #### [facility] [address] [place] [address] Glucose [Mass/Vol] 115 mg/dL High 70-100 [place] Comment on above: Performed By: #### A MY3, CMP3, HEMDF, LIPA4 #### [facility] [address] [place] [address] Protein [Mass/Vol] 7.6 g/dL Normal 6.3-8.2 [place] Comment on above: Performed By: #### A MY3, CMP3, HEMDF, LIPA4 #### [facility] [address] [place] [address] Urea nitrogen [Mass/Vol] 10 mg/dL Normal 7-20 [place] Comment on above: Performed By: #### A MY3, CMP3, HEMDF, LIPA4 #### [facility] [address] [place] [address] Comprehensive Metabolic Pane shaun 08-25-2020 Albumin [Mass/Vol] 4.5 g/dL 3.5 - 5 g/dL [place] Anion gap [Moles/Vol] 10 mmol/L [place] Bilirubin Ql (U) 1.0 mg/dL 0.2 - 1.3 mg/dL [place] Calcium [Mass/Vol] 10.1 mg/dL 8.4 - 10. 4 mg/dL [place] Chloride [Moles/Vol] 93 mmol/L Low 98 - 10 7 mmol/L [place] EGFR IF NonAfrican Brazilian 64.8 mL/min >60 [place] Comment on above: KDIGO guidelines pro [...] [Moles/Vol] 4.6 mmol/L 3.5 - 5.1 mmol/L [place] Sodium [Moles/Vol] 131 mmol/L Low 135 - 145 mmol/L [place] Lipid Panelon 08-25-2020 Chol/HDL 7 Normal [facility] Comment on above: Result Comment: Ref Range: < 3 Low Risk for CHD 3-6 Mod Risk for CHD > 6 High Risk for CHD Performed By: #### A MY3, CMP3, HEMDF, LIPA4 #### [facility] [address] [place] [address] Cholesterol in HDL [Mass/Vol] 34 mg/dL Low 40-60 [facility] Comment on above: Performed By: #### A MY3, CMP3, HEMDF, LIPA4 #### [facility] [address] [place] [address] Low Density Lipoprotein 184 mg/dL Abnormal <100 [facility] Comment on above: Performed By: #### A MY3, CMP3, HEMDF, LIPA4 #### [facility] [address] [place] [address] Cholesterol [Mass/Vol] 251 mg/dL Abnormal < 200 [place], [place] Comment on above: Performed By: #### A MY3, CMP3, HEMDF, LIPA4 #### [facility] [address] [place] [place] [address] Triglyceride [Mass/Vol] 164 mg/dL Abnormal <150 [place], [place] Comment on above: Performed By: #### A MY3, CMP3, HEMDF, LIPA4 #### [facility] [address] [place] [address] Cholesterol in HDL [Mass/Vol] 34 mg/dL Low 40 - 60 mg/dL [place] Cholesterol in LDL [Mass/Vol] 184 mg/dL Abnormal <100 [place] Cholesterol.total/Jhoana sterol in HDL [Mass ratio] 7 {ratio} [place] Comment on above: Ref Range: < 3 Low Risk for CHD 3-6 Mod Risk for CHD > 6 High Risk for CHD Otheron 08-25-2020 Interpretation and review of laboratory results Abnormal [place] Test Performed by [facility], [address] , [address] TSH without Reflexon 020 TSH Qn 2.313 u[IU]/mL 0.465 - 4.68 u[IU]/mL [place] Test Performed by [facility], [address] , [address] Thyroid Stim. Hormoneon 07-29 Thyroid Stim. Hormone 2.313 u[IU]/mL Normal 0.465-4.68 0 [facility] Comment on above: Performed By: #### A MY3, CMP3, HEMDF, LIPA4 #### [facility] [address] [place] [address] Comprehensive Metabolic Pane shaun 06-13-2020 Albumin [Mass/Vol] 4.6 g/dL 3.5 - 5 g/dL [place] ALP [Catalytic activity/Vol] 57 U/L 38 - 126 U/L [place] ALT [Catalytic activity/Vol] 15 U/L 0 - 34 U/L [place] Comment on above: The ALT test is perf ormed by an updated assay method. Please note that the reference intervals have been changed and are now sex specific. Anion gap [Moles/Vol] 13 mmol/L [place] AST [Catalytic activity/Vol] 31 U/L 15 - 46 U/L [place] Bilirubin Ql (U) 1.2 mg/dL 0.2 - 1.3 mg/dL [place] Calcium [Mass/Vol] 9.8 mg/dL 8.4 - 10. 4 mg/dL [place] Chloride [Moles/Vol] 89 mmol/L Low 98 - 10 7 mmol/L [place] CO2 [Moles/Vol] 27 mmol/L 22 - 30 mmol/L [place] Creatinine [Mass/Vol] 0.86 mg/dL 0.52 - 1.25 mg/dL [place] EGFR IF NonAfrican Brazilian 62.2 mL/min >60 [place] Comment on above: KDIGO guidelines pro [...] MDRD (S/P/Bld) [Vol rate/Area] 72.1 mL/min/{1.73_m2} >60 [place] Glucose [Mass/Vol] 111 mg/dL High 70 - 100 mg/dL [place] Interpretation and review of laboratory results Abnormal [place] Potassium [Moles/Vol] 4.4 mmol/L 3.5 - 5.1 mmol/L [place] Protein [Mass/Vol] 8.1 g/dL 6.3 - 8.2 g/dL [place] Sodium [Moles/Vol] 129 mmol/L Low 135 - 145 mmol/L [place] Urea nitrogen [Mass/Vol] 14 mg/dL 7 - 20 mg/dL [place] Test Performed by [facility], [address], [place], [place] [address] [place] MRI LOWER EXTREMITY LEFT W J T WO CONTRASTon 06-11-2020 Patient Name: HELEN GUTIERREZ ---MRI--- Exam Date/Time 06/11/2020 14:41:15 EDT Exam MRI Low Ext Joint w/o Contrast Left Ordering Physician TYREE CREWS Accession Number [id number] CPT4 Codes 70454 () Reason For Exam Pain in left [...] ankle joint effusion. Tibiotalar articular cartilage demonstrates aejx-rn-[id number] cartilage thinning with small marginal osteophytes. No [...] J Transcribed Date and Time: 06/11/2020 2:59 [place], [facility] Incoming Radiology Results From [facility] - 06/11/2020 3:11 PM EDT Patient Name: HELEN LIEBERMAN ---MRI--- Exam Date/Time 06/11/2020 14:41:15 EDT Exam MRI Low Ext Joint w/o Contrast Left Ordering Physician TYREE CREWS Accession Number [id number] CPT4 Codes 11669 () Reason For Exam Pain in left [...] ankle joint effusion. Tibiotalar articular cartilage demonstrates melz-ui-[id number] cartilage thinning with small marginal osteophytes. No [...] J Transcribed Date and Time: 06/11/2020 2:59 [place] Comprehensive Metabolic Pane shaun 05-30-2020 Albumin [Mass/Vol] 4.8 g/dL 3.5 - 5 g/dL [place] ALP [Catalytic activity/Vol] 61 U/L 38 - 126 U/L [place] ALT [Catalytic activity/Vol] 15 U/L 0 - 34 U/L [place] Comment on above: The ALT test is perf ormed by an updated assay method. Please note that the reference intervals have been changed and are now sex specific. Anion gap [Moles/Vol] 10 mmol/L [place] AST [Catalytic activity/Vol] 31 U/L 15 - 46 U/L [place] Bilirubin Ql (U) 0.8 mg/dL 0.2 - 1.3 mg/dL [place] Calcium [Mass/Vol] 9.7 mg/dL 8.4 - 10. 4 mg/dL [place] Chloride [Moles/Vol] 91 mmol/L Low 98 - 10 7 mmol/L [place] CO2 [Moles/Vol] 26 mmol/L 22 - 30 mmol/L [place] Creatinine [Mass/Vol] 0.8 mg/dL 0.52 - 1.25 mg/dL [place] EGFR IF NonAfrican Brazilian 67.9 mL/min >60 [place] Comment on above: KDIGO guidelines pro [...] MDRD (S/P/Bld) [Vol rate/Area] 78.7 mL/min/{1.73_m2} >60 [place] Glucose [Mass/Vol] 115 mg/dL High 70 - 100 mg/dL [place] Interpretation and review of laboratory results Abnormal [place] Potassium [Moles/Vol] 4.4 mmol/L 3.5 - 5.1 mmol/L [place] Protein [Mass/Vol] 7.9 g/dL 6.3 - 8.2 g/dL [place] Sodium [Moles/Vol] 127 mmol/L Low 135 - 145 mmol/L [place] Urea nitrogen [Mass/Vol] 16 mg/dL 7 - 20 mg/dL [place] Test Performed by [facility], [address] , [address] Hemogram (CBC)on 05-30-2020 Erythrocyte distribution width (RBC) [Ratio] 12.8 % 11.5 - 14.5 % [place] Hematocrit (Bld) [Volume fraction] 38.1 % 35 - 47 % [place] Hemoglobin (Bld) [Mass/Vol] 13.5 g/dL 11.7 - 16 g/dL [place] Interpretation and review of laboratory results Abnormal [place] MCH (RBC) [Entitic mass] 33.1 pg 26 - 34 pg [place] MCHC (RBC) [Mass/Vol] 35.4 % 32 - 36 % [place] MCV (RBC) [Entitic vol] 93.4 fL 79 - 98 fL [place] Platelet mean volume (Bld) [Entitic vol] 6.5 fL Low 7.4 - 10.4 fL [place] Platelets (Bld) [#/Vol] 347 10*3/uL 140 - 440 10*3/uL [place] RBC (Bld) [#/Vol] 4.08 10*6/uL 3.8 - 5.2 10*6/uL [place] WBC (Bld) [#/Vol] 6.5 10*3/uL 3.6 - 10.7 10*3/uL [place] Test Performed by [facility], [address] , [address] CMPon 03-15-2018 Alanine aminotransferase (ALT) 21 U/L Normal 13-61 [facility] Comment on above: Result Comment: RESU LTS MAY BE FALSELY DEPRESSED AFTER THE ADMINISTRATION OFSULFASALAZINE AND/OR SULFAPYRIDINE. Performed By: #### L 500.98116, L500.64766, L500.38656, L500.80185 ####[facility] [id number] [place], [place] [address]Rq# [phone] Albumin 4.3 g/dL Normal 3.2-5.0 [facility] Comment on above: Performed By: #### L 500.53214, L500.26660, L500.09978, L500.59422 ####[facility] [id number] [place], [place] [address]Yx# [phone] Albumin/Globulin Ratio 1.3 {ratio} Normal 0.8-2.0 M [facility] Comment on above: Performed By: #### L 500.24269, L500.90905, L500.73085, L500.70706 ####[facility] [id number] [place], [place] [address]Sy# [phone] ALK PHOS 60 U/L Normal 45-117 [facility] Comment on above: Performed By: #### L 500.33851, L500.80644, L500.13588, L500.22593 ####[facility] [id number] [place], [place] [address]Tr# [phone] Anion gap 9 mmol/L Normal 5-16 [facility] Comment on above: Performed By: #### L 500.41092, L500.08484, L500.33941, L500.83338 ####[facility] [id number] [place], [place] [address]Ej# [phone] BILI TOTAL 1.0 MG/DL Normal 0.2-1.0 [facility] Comment on above: Performed By: #### L 500.36834, L500.05227, L500.55066, L500.94649 ####[facility] [id number] [place], [place] [address]Wa# [phone] BUN/Creatinine Ratio 16 mg/mg Normal 15-24 [facility] Comment on above: Performed By: #### L 500.84053, L500.02617, L500.95276, L500.87469 ####[facility] [id number] [place], [place] [address]Dp# [phone] Calcium 9.8 mg/dL Normal 8.5-10.1 [facility] Comment on above: Performed By: #### L 500.57053, L500.91004, L500.18604, L500.51243 ####[facility] [id number] [place], [place] [address]Rv# [phone] Chloride 93 mmol/L Low 98-107 [facility] Comment on above: Performed By: #### L 500.48556, L500.78175, L500.70445, L500.42703 ####[facility] [id number] [place], [place] [address]Rs# [phone] CO2 27 mmol/L Normal 21-32 [facility] Comment on above: Performed By: #### L 500.75172, L500.94565, L500.63087, L500.91166 ####[facility] [id number] [place], [place] [address]Wt# [phone] Creatinine 0.813 mg/dL Normal 0.510-0.950 [facility] Comment on above: Result Comment: Bela ents receiving either N-Acetylcysteine (NAC) orMetamizole prior to venipuncture, may have falsely depressedresults. Performed By: #### L 500.37942, L500.08971, L500.46447, L500.61348 ####[facility] [id number] [place] [address]Ph# [phone] Globulin 3.3 g/dL Normal 2.2-4.2 [facility] Comment on above: Performed By: #### L 500.03895, L500.13261, L500.18238, L500.30060 ####[facility] TBZSJEPGAR[address] [place], [place] [address]Gw# [phone] Glucose mass conc 104 mg/dL High 70-100 [facility] Comment on above: Result Comment: 70-1 00- Normal Fasting; 100-125 Impaired Fasting; greaterthan 126 on more than one result- Diabetes. ADA guidelines.Results may be falsely elevated after the administration ofSulfapyridine.Results may be falsely depressed after the administration ofSulfasalazine. Performed By: #### L 500.55238, L500.11025, L500.56815, L500.97519 ####[facility] [id number] [place], [place] [address]Bv# [phone] Potassium molar conc 4.3 mmol/L Normal 3.5-5.1 [facility] Comment on above: Performed By: #### L 500.60642, L500.74850, L500.61382, L500.31482 ####[facility] [id number] [place], [place] [address]Fv# [phone] Protein 7.6 g/dL Normal 6.0-8.5 [facility] Comment on above: Performed By: #### L 500.82576, L500.77435, L500.74938, L500.87516 ####[facility] XSSCJTMYHL0784 [place], [place] [address]Ef# [phone] SGOT (AST) 20 U/L Normal 8-34 [facility] Comment on above: Result Comment: RESU LTS MAY BE FALSELY DEPRESSED AFTER THE ADMINISTRATION OFSULFASALAZINE AND/OR SULFAPYRIDINE. Performed By: #### L 500.44025, L500.21660, L500.71395, L500.04560 ####[facility] [id number] [place], [place] [address]Ei# [phone] Sodium 129 mmol/L Low 136-145 [facility] Comment on above: Performed By: #### L 500.81424, L500.21689, L500.45579, L500.45641 ####[facility] [id number] [place], [place] [address]Dc# [phone] Urea nitrogen 13 mg/dL Normal 7-26 [facility] Comment on above: Performed By: #### L 500.64075, L500.02028, L500.25517, L500.30243 ####[facility] [id number] [place], [place] [address]Dr# [phone] GFR ESTon 03-15-2018 IF AMER Greater than 60 Normal [facility] [place] Comment on above: Performed By: #### L 500.25907, L500.48981, L500.91007, L500.66354 ####[facility] [id number] [place], [place] [address]Po# [phone] IF non-AFR AMER Greater than 60 Normal [facility] [place] Comment on above: Performed By: #### L 500.20418, L500.51857, L500.43644, L500.22849 ####[facility] [id number] [place], [place] [address]Fz# [phone] LIPIDon 03-15-2018 Cholesterol 254 mg/dL High 0-199 [facility] Comment on above: Performed By: #### L 500.58509, L500.66713, L500.95605, L500.99880 ####[facility] [id number] [place], [place] [address]Vu# [phone] HDL Cholesterol 36 mg/dL Low [place]ATER [place] 40 [facility] Comment on above: Result Comment: Bela ents receiving Metamizole prior to venipuncture, mayhave falsely depressed results. Performed By: #### L 500.40451, L500.06845, L500.74621, L500.69518 ####[facility] [id number] [place], [place] [address]Ze# [phone] LDL Cholesterol 173 MG/DL High 0-129 [facility] Comment on above: Result Comment: ___C HOLESTEROL/HDL RATIO RISK___ CHD RISK = Total CHOL LDL HDL (CHOL/HDL) --------Recommended <200 <130 >35 <3.4 --Borderline 200-239 130-159 3.4-4.99 ------High >240 >160 >5.0 -- Performed By: #### L 500.59390, L500.18279, L500.61355, L500.28884 ####[facility] [id number] [place], [place] [address]Rr# [phone] Triglyceride 226 mg/dL High 30-149 [facility] Comment on above: Result Comment: Bela ents receiving either N-Acetylcysteine (NAC) orMetamizole prior to venipuncture, may have falsely depressedresults. Performed By: #### L 500.24232, L500.47293, L500.04395, L500.41453 ####[facility] [id number] [place], [place] [address]Pb# [phone] TSHon 03-15-2018 Thyroid stimulating hormone (TSH) 0.499 UIU/ML Normal 0.358-3.740 [facility] Comment on above: Result Comment: 3rd generation ultra sensitive TSH Performed By: #### L 500.85388, L500.07105, L500.12404, L500.65793 ####[facility] [id number] [place], [place] [address]Je# [phone] UA COMPLETEon 03-15-2018 UA APPEARANCE Clear Normal CLEAR [facility] Comment on above: Performed By: #### L 600.93651 ####[facility] [id number] [place], [place] [address]Ol# [phone] UA BILIRUBIN Negative Normal [facility] Comment on above: Performed By: #### L 600.04532 ####[facility] [id number] [place] [address]Vi# [phone] UA BLOOD Negative Normal NEGATIVE [facility] Comment on above: Performed By: #### L 600.36982 ####[facility] [id number] [place] [address]Sk# [phone] UA KETONE Negative Normal [facility] Comment on above: Performed By: #### L 600.08869 ####[facility] [id number] [place] [address]Qg# [phone] UA LK ESTERASE Negative Normal NEGATIVE [facility] Comment on above: Performed By: #### L 600.28131 ####[facility] [id number] [place] [address]Yk# [phone] UA NITRITE Negative Normal NEGATIVE [facility] Comment on above: Performed By: #### L 600.93199 ####[facility] [id number] [place] [address]Po# [phone] UA PH 6.0 Normal [facility] Comment on above: Performed By: #### L 600.95295 ####[facility] [id number] [place] [address]Sl# [phone] UA PROTEIN Negative Normal NEGATIVE [facility] Comment on above: Performed By: #### L 600.86397 ####[facility] [id number] [place] [address]Gi# [phone] UA SPEC GRAV 1.010 Normal 1.005-1.030 [facility] Comment on above: Performed By: #### L 600.63372 ####[facility] [id number] [place], [place] [address]Eu# [phone] UA UROBILINOGEN Negative Normal [facility] Comment on above: Performed By: #### L 600.70791 ####[facility] [id number] [place], [place] [address]Et# [phone] Urine, color Yellow Normal [facility] Comment on above: Performed By: #### L 600.27620 ####[facility] [id number] [place], [place] [address]Ji# [phone] Urine, glucose Negative Normal [facility] Comment on above: Performed By: #### L 600.44103 ####[facility] [id number] [place], [place] [address]Uu# [phone] Vital Signs Date Time Vital Sign Value Performing Clinician Chandrika pizarro 06-05-2025 13:33-0400 Diastolic blood pressure 83 mm[Hg] Nigel Irizarry PA-C Work Phone: [facility] 06-05-2025 13:33-0400 Heart rate 90 /min Nigeljake Monzonicksen PA-C Work Phone: [facility] 06-05-2025 13:33-0400 Systolic blood pressure 152 mm[Hg] Nigel Monzonicksen PA-C Work Phone: [facility] 06-05-2025 10:56-0400 Diastolic blood pressure 72 mm[Hg] Nurse Ocala Work Phone: [facility] 06-05-2025 10:56-0400 Systolic blood pressure 128 mm[Hg] Nurse Ocala Work Phone: [facility] 05-30-2025 08:15-0400 Diastolic blood pressure 78 mm[Hg] Nurse Ocala Work Phone: [facility] 05-30-2025 08:15-0400 Systolic blood pressure 126 mm[Hg] Nurse Ocala Work Phone: [facility] 05-22-2025 08:28-0400 Diastolic blood pressure 70 mm[Hg] Nurse Ocala Work Phone: [facility] 05-22-2025 08:28-0400 Systolic blood pressure 124 mm[Hg] Nurse Ocala Work Phone: [facility] 04-17-2025 08:32-0400 Diastolic blood pressure 76 mm[Hg] Nurse Ocala Work Phone: [facility] 04-17-2025 08:32-0400 Systolic blood pressure 128 mm[Hg] Nurse [place] Work Phone: [facility] 03-18-2025 08:44-0400 Diastolic blood pressure 68 mm[Hg] Nurse Ocala Work Phone: [facility] 03-18-2025 08:44-0400 Systolic blood pressure 116 mm[Hg] Nurse [place]a Work Phone: [facility] 03-04-2025 08:40-0400 Diastolic blood pressure 66 mm[Hg] Nurse [place] Work Phone: [facility] 03-04-2025 08:40-0400 Systolic blood pressure 146 mm[Hg] Nurse [place]cala Work Phone: [facility] 01-03-2025 07:47-0400 Body height 157.5 cm Tanya Blake WIRE BENDER.PHOTOENGRAVING SUPERVISOR Work Phone: [facility] 01-03-2025 07:47-0400 Body mass index (BMI) [Ratio] 22.61 kg/m2 Tanya Blake WIRE B[employer]ER.PHOTOENGRAVING SUPERVISOR Work Phone: [facility] 01-03-2025 07:47-0400 Body weight 56.06 kg Tanya Blake WIRE BENDER.PHOTOENGRAVING SUPERVISOR Work Phone: [facility] 01-03-2025 07:47-0400 Diastolic blood pressure 50 mm[Hg] Tanya Blake WIRE BENDER.PHOTOENGRAVING SUPERVISOR Work Phone: [facility] 01-03-2025 07:47-0400 Heart rate 75 /min Tanya Blake WIRE BENDER.PHOTOENGRAVING SUPERVISOR Work Phone: [facility] 01-03-2025 07:47-0400 Respiratory rate 18 /min Tanya Blake WIRE BENDER.PHOTOENGRAVING SUPERVISOR Work Phone: [facility] 01-03-2025 07:47-0400 SaO2% (BldA) [Mass fraction] 99 % Tanya Blake WIRE BENDER.PHOTOENGRAVING SUPERVISOR Work Phone: [facility] 01-03-2025 07:47-0400 Systolic blood pressure 120 mm[Hg] Tanya Blake WIRE BENDER.PHOTOENGRAVING SUPERVISOR Work Phone: [facility] 12-19-2024 10:59-0400 Diastolic blood pressure 70 mm[Hg] Tanya Blake WIRE BENDER.PHOTOENGRAVING SUPERVISOR Work Phone: [facility] 12-19-2024 10:59-0400 Heart rate 52 /min Tanya Blake WIRE BENDER.PHOTOENGRAVING SUPERVISOR Work Phone: [facility] 12-19-2024 10:59-0400 Systolic blood pressure 168 mm[Hg] Tanya Blake WIRE BENDER.PHOTOENGRAVING SUPERVISOR Work Phone: [facility] 12-19-2024 10:43-0400 Body height 157.5 cm Tanya Blake WIRE BENDER.PHOTOENGRAVING SUPERVISOR Work Phone: [facility] 12-19-2024 10:43-0400 Body mass index (BMI) [Ratio] 22.57 kg/m2 Tanya Blake WIRE BENDER.PHOTOENGRAVING SUPERVISOR Work Phone: [facility] 12-19-2024 10:43-0400 Body weight 55.97 kg Tanya Blake WIRE BENDER.PHOTOENGRAVING SUPERVISOR Work Phone: [facility] 12-19-2024 10:43-0400 Respiratory rate 18 /min Tanya Blake WIRE BENDER.PHOTOENGRAVING SUPERVISOR Work Phone: [facility] 12-19-2024 10:43-0400 SaO2% (BldA) [Mass fraction] 98 % Tanya Blake WIRE BENDER.PHOTOENGRAVING SUPERVISOR Work Phone: [facility] 12-03-2024 08:58-0400 Diastolic blood pressure 72 mm[Hg] Tanya Blake WIRE BENDER.PHOTOENGRAVING SUPERVISOR Work Phone: [facility] 12-03-2024 08:58-0400 Systolic blood pressure 180 mm[Hg] Tanya Blake WIRE BENDER.PHOTOENGRAVING SUPERVISOR Work Phone: [facility] 12-03-2024 07:58-0400 Body height 157.5 cm Tanya Blake WIRE BENDER.PHOTOENGRAVING SUPERVISOR Work Phone: [facility] 12-03-2024 07:58-0400 Body mass index (BMI) [Ratio] 22.31 kg/m2 Tanya Blake WIRE BENDER.PHOTOENGRAVING SUPERVISOR Work Phone: [facility] 12-03-2024 07:58-0400 Body temperature 97.5 [degF] Tanya Velezel WIRE BENDER.PHOTOENGRAVING SUPERVISOR Work Phone: [facility] 12-03-2024 07:58-0400 Body weight 55.34 kg Tanya Velezel WIRE BENDER.PHOTOENGRAVING SUPERVISOR Work Phone: [facility] 12-03-2024 07:58-0400 Heart rate 64 /min Tanya Velezel WIRE BENDER.PHOTOENGRAVING SUPERVISOR Work Phone: [facility] 12-03-2024 07:58-0400 Respiratory rate 16 /min Tanya Velezel WIRE BENDER.PHOTOENGRAVING SUPERVISOR Work Phone: [facility] 12-03-2024 07:58-0400 SaO2% (BldA) [Mass fraction] 95 % Tanya Velezel WIRE BENDER.PHOTOENGRAVING SUPERVISOR Work Phone: [facility] 10-04-2024 15:17-0500 Diastolic blood pressure 60 mm[Hg] Genia Queden WIRE BENDER.PHOTOENGRAVING SUPERVISOR Work Phone: [facility] 10-04-2024 15:17-0500 Systolic blood pressure 146 mm[Hg] Genia Queden WIRE BENDER.PHOTOENGRAVING SUPERVISOR Work Phone: [facility] 10-04-2024 15:04-0500 Body height 157.5 cm Genia Andradeden WIRE BENDER.PHOTOENGRAVING SUPERVISOR Work Phone: [facility] 10-04-2024 15:04-0500 Body mass index (BMI) [Ratio] 21.77 kg/m2 Genia Andradeden WIRE BENDER.PHOTOENGRAVING SUPERVISOR Work Phone: [facility] 10-04-2024 15:04-0500 Body temperature 98.01 [degF] Genia Andradeden WIRE BENDER.PHOTOENGRAVING SUPERVISOR Work Phone: [facility] 10-04-2024 15:04-0500 Body weight 53.98 kg Genia Andradeden WIRE BENDER.PHOTOENGRAVING SUPERVISOR Work Phone: [facility] 10-04-2024 15:04-0500 Heart rate 76 /min Genia Andradeden WIRE BENDER.PHOTOENGRAVING SUPERVISOR Work Phone: [facility] 10-04-2024 15:04-0500 SaO2% (BldA) [Mass fraction] 98 % Genia Huitron WIRE BENDER.PHOTOENGRAVING SUPERVISOR Work Phone: [facility] 07-18-2024 08:51-0400 Diastolic blood pressure 60 mm[Hg] Nurse [place] Work Phone: [facility] 07-18-2024 08:51-0400 Systolic blood pressure 156 mm[Hg] Nurse [place] Work Phone: [facility] 06-18-2024 12:59-0400 Diastolic blood pressure 78 mm[Hg] Nurse [place] Work Phone: [facility] 06-18-2024 12:59-0400 Systolic blood pressure 136 mm[Hg] Nurse [place] Work Phone: [facility] 04-23-2024 08:21-0400 Diastolic blood pressure 60 mm[Hg] Nurse [place] Work Phone: [facility] 04-23-2024 08:21-0400 Systolic blood pressure 170 mm[Hg] Nurse [place] Work Phone: [facility] 03-26-2024 11:31-0400 Diastolic blood pressure 60 mm[Hg] Nurse [place] Work Phone: [facility] 03-26-2024 11:31-0400 Systolic blood pressure 142 mm[Hg] Nurse [place] Work Phone: [facility] 12-07-2023 09:00-0400 Diastolic blood pressure 62 mm[Hg] Nurse [place] Work Phone: [facility] 12-07-2023 09:00-0400 Systolic blood pressure 138 mm[Hg] Nurse [place] Work Phone: [facility] 11-01-2023 08:13-0500 Diastolic blood pressure 60 mm[Hg] Nurse [place] Work Phone: [facility] 11-01-2023 08:13-0500 Systolic blood pressure 142 mm[Hg] Nurse [place] Work Phone: [facility] 08-25-2023 14:02-0500 Diastolic blood pressure 68 mm[Hg] Nurse [place] Work Phone: [facility] 08-25-2023 14:02-0500 Systolic blood pressure 130 mm[Hg] Nurse [place] Work Phone: [facility] 07-19-2023 08:54-0400 Diastolic blood pressure 60 mm[Hg] Tanya Blake WIRE BENDER.PHOTOENGRAVING SUPERVISOR Work Phone: [facility] 07-19-2023 08:54-0400 Systolic blood pressure 158 mm[Hg] Tanya Blake WIRE BENDER.PHOTOENGRAVING SUPERVISOR Work Phone: [facility] 07-19-2023 08:13-0400 Body height 154.9 cm Tanya Blake WIRE BENDER.PHOTOENGRAVING SUPERVISOR Work Phone: [facility] 07-19-2023 08:13-0400 Body temperature 98.2 [degF] Tanya Blake WIRE BENDER.PHOTOENGRAVING SUPERVISOR Work Phone: [facility] 07-19-2023 08:13-0400 Body weight 56.7 kg Tanya Blake WIRE BENDER.PHOTOENGRAVING SUPERVISOR Work Phone: [facility] 07-19-2023 08:13-0400 Heart rate 55 /min Tanya Velezel WIRE BENDER.PHOTOENGRAVING SUPERVISOR Work Phone: [facility] 07-19-2023 08:13-0400 Respiratory rate 18 /min Tanya Lozano WIRE BENDER.PHOTOENGRAVING SUPERVISOR Work Phone: [facility] 07-19-2023 08:13-0400 SaO2% (BldA) [Mass fraction] 100 % Tanya Lozano WIRE BENDER.PHOTOENGRAVING SUPERVISOR Work Phone: [facility] 07-13-2023 12:16-0400 Diastolic blood pressure 60 mm[Hg] Nurse [place] Work Phone: [facility] 07-13-2023 12:16-0400 Systolic blood pressure 138 mm[Hg] Nurse [place] Work Phone: [facility] 07-11-2023 08:18-0400 Diastolic blood pressure 60 mm[Hg] Nurse [place] Work Phone: [facility] 07-11-2023 08:18-0400 Systolic blood pressure 142 mm[Hg] Nurse [place] Work Phone: [facility] 06-15-2023 08:15-0400 Diastolic blood pressure 60 mm[Hg] Nurse [place] Work Phone: [facility] 06-15-2023 08:15-0400 Systolic blood pressure 156 mm[Hg] Nurse [place] Work Phone: [facility] 06-08-2023 08:34-0400 Diastolic blood pressure 60 mm[Hg] Nurse [place] Work Phone: [facility] 06-08-2023 08:34-0400 Systolic blood pressure 138 mm[Hg] Nurse [place] Work Phone: [facility] 05-05-2023 08:35-0400 Diastolic blood pressure 60 mm[Hg] Nurse [place] Work Phone: [facility] 08-10-2023 08:35-0400 Systolic blood pressure 138 mm[Hg] Nurse [place] Work Phone: [facility] 02-02-2023 08:12-0400 Diastolic blood pressure 72 mm[Hg] Nurse [place] Work Phone: [facility] 02-02-2023 08:12-0400 Systolic blood pressure 138 mm[Hg] Nurse [place] Work Phone: [facility] 01-13-2023 07:47-0400 Diastolic blood pressure 60 mm[Hg] Tanya Blake WIRE BENDER.PHOTOENGRAVING SUPERVISOR Work Phone: [facility] 01-13-2023 07:47-0400 Systolic blood pressure 140 mm[Hg] Tanya Blake WIRE BENDER.PHOTOENGRAVING SUPERVISOR Work Phone: [facility] 01-13-2023 07:18-0400 Body height 157.5 cm Tanya Blake WIRE BENDER.PHOTOENGRAVING SUPERVISOR Work Phone: [facility] 01-13-2023 07:18-0400 Body temperature 97.81 [degF] Tanya Blake WIRE BENDER.PHOTOENGRAVING SUPERVISOR Work Phone: [facility] 01-13-2023 07:18-0400 Body weight 58.06 kg Tanya Blake WIRE BENDER.PHOTOENGRAVING SUPERVISOR Work Phone: [facility] 01-13-2023 07:18-0400 Heart rate 60 /min Tanya Blake WIRE BENDER.PHOTOENGRAVING SUPERVISOR Work Phone: [facility] 01-13-2023 07:18-0400 Respiratory rate 18 /min Tanya Blake WIRE BENDER.PHOTOENGRAVING SUPERVISOR Work Phone: [facility] 01-13-2023 07:18-0400 SaO2% (BldA) [Mass fraction] 99 % Tanya Blake WIRE BENDER.PHOTOENGRAVING SUPERVISOR Work Phone: [facility] 01-03-2023 11:23-0400 Diastolic blood pressure 70 mm[Hg] Nurse [place] Work Phone: [facility] 04-10-2023 11:23-0400 Systolic blood pressure 170 mm[Hg] Nurse [place] Work Phone: [facility] 12-02-2022 08:38-0500 Diastolic blood pressure 66 mm[Hg] Nurse [place] Work Phone: [facility] 12-02-2022 08:38-0500 Systolic blood pressure 124 mm[Hg] Nurse [place] Work Phone: [facility] 11-04-2022 08:20-0500 Diastolic blood pressure 80 mm[Hg] Nurse [place] Work Phone: [facility] 11-04-2022 08:20-0500 Systolic blood pressure 162 mm[Hg] Nurse [place] Work Phone: [facility] 09-13-2022 08:24-0500 Diastolic blood pressure 60 mm[Hg] Nurse [place] Work Phone: [facility] 09-13-2022 08:24-0500 Systolic blood pressure 152 mm[Hg] Nurse [place] Work Phone: [facility] 08-12-2022 08:22-0500 Diastolic blood pressure 78 mm[Hg] Nurse [place] Work Phone: [facility] 08-12-2022 08:22-0500 Systolic blood pressure 142 mm[Hg] Nurse [place] Work Phone: [facility] 07-15-2022 09:14-0400 Diastolic blood pressure 70 mm[Hg] Tanya Blake WIRE BENDER.PHOTOENGRAVING SUPERVISOR Work Phone: [facility] 07-15-2022 09:14-0400 Systolic blood pressure 130 mm[Hg] Tanya Blake WIRE BENDER.PHOTOENGRAVING SUPERVISOR Work Phone: [facility] 07-15-2022 08:49-0400 Body height 157.5 cm Tanya Blake WIRE BENDER.PHOTOENGRAVING SUPERVISOR Work Phone: [facility] 07-15-2022 08:49-0400 Body temperature 98.2 [degF] Tanya Blake WIRE BENDER.PHOTOENGRAVING SUPERVISOR Work Phone: [facility] 07-15-2022 08:49-0400 Body weight 56.52 kg Tanya Blake WIRE BENDER.PHOTOENGRAVING SUPERVISOR Work Phone: [facility] 07-15-2022 08:49-0400 Heart rate 56 /min Tanya Blake WIRE BENDER.PHOTOENGRAVING SUPERVISOR Work Phone: [facility] 07-15-2022 08:49-0400 Respiratory rate 18 /min Tanya Blake WIRE BENDER.PHOTOENGRAVING SUPERVISOR Work Phone: [facility] 07-15-2022 08:49-0400 SaO2% (BldA) [Mass fraction] 98 % Tanya Blake WIRE BENDER.PHOTOENGRAVING SUPERVISOR Work Phone: [facility] 06-03-2022 08:45-0400 Diastolic blood pressure 62 mm[Hg] Nurse [place] Work Phone: [facility] 06-03-2022 08:45-0400 Systolic blood pressure 148 mm[Hg] Nurse [place] Work Phone: [facility] 05-20-2022 08:27-0400 Diastolic blood pressure 70 mm[Hg] Nurse O[place] Work Phone: [facility] 05-20-2022 08:27-0400 Systolic blood pressure 150 mm[Hg] Nurse O[place] Work Phone: [facility] 04-19-2022 08:17-0400 Diastolic blood pressure 60 mm[Hg] Nurse [place] Work Phone: [facility] 04-19-2022 08:17-0400 Systolic blood pressure 142 mm[Hg] Nurse [place] Work Phone: [facility] 03-18-2022 08:29-0400 Diastolic blood pressure 56 mm[Hg] Nurse [place] Work Phone: [facility] 03-18-2022 08:29-0400 Systolic blood pressure 122 mm[Hg] Nurse [place] Work Phone: [facility] 03-08-2022 11:28-0400 Diastolic blood pressure 70 mm[Hg] Nurse O[place] Work Phone: [facility] 03-08-2022 11:28-0400 Systolic blood pressure 142 mm[Hg] Nurse [place] Work Phone: [facility] 03-08-2022 11:07-0400 Heart rate 60 /min Nurse [place] Work Phone: [facility] 03-04-2022 08:35-0400 Diastolic blood pressure 62 mm[Hg] Nurse [place] Work Phone: [facility] 03-04-2022 08:35-0400 Systolic blood pressure 148 mm[Hg] Nurse [place] Work Phone: [facility] 03-01-2022 08:25-0400 Diastolic blood pressure 78 mm[Hg] Nurse O[place]a Work Phone: [facility] 03-01-2022 08:25-0400 Systolic blood pressure 138 mm[Hg] Nurse O[place] Work Phone: [facility] 02-23-2022 08:41-0400 Diastolic blood pressure 80 mm[Hg] Nurse [place] Work Phone: [facility] 02-23-2022 08:41-0400 Systolic blood pressure 134 mm[Hg] Nurse O[place] Work Phone: [facility] 02-16-2022 08:45-0400 Diastolic blood pressure 60 mm[Hg] Nurse [place] Work Phone: [facility] 02-16-2022 08:45-0400 Systolic blood pressure 148 mm[Hg] Nurse [place] Work Phone: [facility] 01-13-2022 09:41-0400 Diastolic blood pressure 60 mm[Hg] Tanya Blake WIRE BENDER.PHOTOENGRAVING SUPERVISOR Work Phone: [facility] 01-13-2022 09:41-0400 Systolic blood pressure 142 mm[Hg] Tanya Blake WIRE BENDER.PHOTOENGRAVING SUPERVISOR Work Phone: [facility] 01-13-2022 09:17-0400 Body height 157.5 cm Tanya Lozano WIRE BENDER.PHOTOENGRAVING SUPERVISOR Work Phone: [facility] 01-13-2022 09:17-0400 Body temperature 98.2 [degF] Tanya Lozano WIRE BENDER.PHOTOENGRAVING SUPERVISOR Work Phone: [facility] 01-13-2022 09:17-0400 Body weight 59.06 kg Tanya Lozano WIRE BENDER.PHOTOENGRAVING SUPERVISOR Work Phone: [facility] 01-13-2022 09:17-0400 Heart rate 51 /min Tanya Lozano WIRE BENDER.PHOTOENGRAVING SUPERVISOR Work Phone: [facility] 01-13-2022 09:17-0400 Respiratory rate 18 /min Tanya Lozano WIRE BENDER.PHOTOENGRAVING SUPERVISOR Work Phone: [facility] 01-13-2022 09:17-0400 SaO2% (BldA) [Mass fraction] 93 % Tanya Lozano WIRE BENDER.PHOTOENGRAVING SUPERVISOR Work Phone: [facility] 12-28-2021 08:13-0400 Diastolic blood pressure 62 mm[Hg] Nurse [place] Work Phone: [facility] 12-28-2021 08:13-0400 Systolic blood pressure 170 mm[Hg] Nurse [place] Work Phone: [facility] 12-17-2021 08:20-0400 Diastolic blood pressure 78 mm[Hg] Nurse [place] Work Phone: [facility] 12-17-2021 08:20-0400 Systolic blood pressure 138 mm[Hg] Nurse [place] Work Phone: [facility] 01-07-2021 19:00-0400 BP Diastolic 77 mm[Hg] [employer] [...] 06-20-2020 12:30-0400 Body Temperature 98.01 [degF] Tyree [employer], [place] 06-20-2020 12:30-0400 BP Diastolic 68 mm[Hg] Tyree [facility] [place] 06-20-2020 12:30-0400 BP Systolic 156 mm[Hg] Tyree [employer] [facility] [place] 06-20-2020 12:30-0400 Pulse (Heart Rate) 64 /min Tyree Cain [facility] [place] 06-20-2020 12:30-0400 Pulse Oximetry 100 % Tyree [employer] [facility] [place] 06-20-2020 12:30-0400 Respiratory Rate 18 /min Tyree AC[employer], [place] 06-20-2020 07:14-0400 BMI (Body Mass Index) 24.14 kg/m2 Tyree [employer] [place], [place] 06-20-2020 07:14-0400 Body weight 59.88 kg Tyree ACACIA [employer] [place] 06-20-2020 07:14-0400 Height 157.5 cm Tyree AC[employer]IA [employer] [facility] [place] 06-13-2020 11:35-0400 Body Temperature 96.69 [degF] Tyree [employer] 06-13-2020 11:35-0400 BP Diastolic 70 mm[Hg] Tyree [facility] [place] , [place] 06-13-2020 11:35-0400 BP Systolic 157 mm[Hg] Tyree [facility] [place] 06-13-2020 11:35-0400 Pulse (Heart Rate) 67 /min Tyree [facility] [place] 06-13-2020 11:35-0400 Pulse Oximetry 98 % Tyree Hernandez [facility] [place] , [place] 06-13-2020 11:34-0400 BMI (Body Mass Index) 24.14 kg/m2 Tyree [facility] [place] 06-13-2020 11:34-0400 Body weight 59.88 kg Tyree Hernandez [facility] [place] , [place] 06-13-2020 11:34-0400 Height 157.5 cm Tyree Hernandez [facility] , [place] 06-13-2020 11:34-0400 Respiratory Rate 16 /min Tyree [facility] [place] 05-30-2020 18:10-0400 BP Diastolic 66 mm[Hg] Seamus [facility] [place] , [place] 05-30-2020 18:10-0400 BP Systolic 162 mm[Hg] Seamus Hernandez [employer] [place] , [place] 05-30-2020 18:10-0400 Pulse (Heart Rate) 58 /min Seamus Hernandez [facility], [place] 05-30-2020 18:10-0400 Pulse Oximetry 97 % Seamus Hernandez [facility] [place] , [place] 05-30-2020 18:10-0400 Respiratory Rate 14 /min Seamus [facility] [place] 05-30-2020 17:01-0400 BMI (Body Mass Index) 24.33 kg/m2 Seamus [facility] [place] 05-30-2020 17:01-0400 Body Temperature 97.59 [degF] Seamus [facility] [place] 05-30-2020 17:01-0400 Body weight 60.33 kg Seamus Hernandez [facility] [place] , [place] 05-30-2020 17:01-0400 Height 157.5 cm [facility] , [place] Encounters Encounter Date Encounter Type Care Provider Facility Start: 06-23-2025 End: 06-27-2025 Evaluation and management of inpatient DONNA CASILLAS Facility:[facility] Start: 06-20-2025 End: 06-20-2025 Emergency department patient visit TIERA JIMENEZ Facility:[facility] Start: 06-19-2025 End: 06-19-2025 ambulatory TANYA LOZANO [facility] Start: 06-16-2025 End: 06-16-2025 Emergency department patient visit UNKNOWN PROVIDER Facility:[facility] Start: 06-06-2025 End: 06-06-2025 ambulatory Tanya Lozano APRN.PHOTOENGRAVING SUPERVISOR Work Phone: [facility] Start: 06-06-2025 End: 06-06-2025 Follow-up encounter Tanya Lozano APRN.PHOTOENGRAVING SUPERVISOR Work Phone: [facility] Comment on above: ED Follow Up ([place] [facility] 06/02/2025 ) Start: 06-05-2025 End: 06-05-2025 ambulatory NIGEL IRIZARRY Facility:[facility] Start: 06-05-2025 End: 06-05-2025 Patient encounter procedure Nigel Irizarry PA-C Work Phone: Otolaryngology Comment on above: Epistaxis (Primary D x) Start: 06-05-2025 End: 06-05-2025 Nursing evaluation of patient and report Nurse Cassandra Horan [place] Work Phone: [facility] Comment on above: Paroxysmal atrial fi brillation (HCC) (Primary Dx) Refill Request Start: 06-05-2025 End: 06-05-2025 ambulatory TANYA LOZANO [facility] Start: 06-03-2025 End: 06-03-2025 Telephone encounter Tanya Lozano APRN.PHOTOENGRAVING SUPERVISOR Work Phone: [facility] Comment on above: Patient Question Start: 06-01-2025 End: 06-02-2025 Emergency department patient visit TANYA LOZANO Facility:[facility] Start: 05-30-2025 End: 05-30-2025 Nursing evaluation of patient and report Nurse Cassandra Prado Work Phone: [facility] Comment on above: Atrial fibrillation, unspecified type (HCC) (Primary Dx) Start: 05-30-2025 End: 05-30-2025 ambulatory TANYA M BLAKE Facility:[facility] Start: 05-22-2025 End: 05-22-2025 Nursing evaluation of patient and report Nurse Cassandra Prado Work Phone: [facility] Comment on above: Paroxysmal atrial fi brillation (HCC) (Primary Dx) Start: 05-22-2025 End: 05-22-2025 ambulatory TANYA Jennifer VELEZEL Facility:[facility] Start: 04-27-2025 End: 04-27-2025 Emergency department patient visit TANYA M BLAKE Facility:[facility] Start: 04-17-2025 End: 04-17-2025 Nursing evaluation of patient and report Nurse Cassandra Prado Work Phone: [facility] Comment on above: Paroxysmal atrial fi brillation (HCC) (Primary Dx) Start: 04-17-2025 End: 04-17-2025 ambulatory TANYA Jennifer VELEZEL Facility:[facility] Start: 04-04-2025 End: 04-04-2025 ambulatory Tanya Lozano WIRE BENDER.PHOTOENGRAVING SUPERVISOR Work Phone: [facility] Start: 04-04-2025 End: 04-04-2025 Follow-up encounter Tanya Lozano WIRE BENDER.PHOTOENGRAVING SUPERVISOR Work Phone: [facility] Comment on above: ED Follow Up ([facility] 04/01/2025) Start: 04-01-2025 End: 04-01-2025 Emergency department patient visit TANYA LOZANO Facility:[facility] Start: 03-18-2025 End: 05-18-2025 Follow-up encounter Tanya Lozano WIRE BENDER.PHOTOENGRAVING SUPERVISOR Work Phone: [facility] Start: 03-18-2025 End: 03-18-2025 ambulatory TANYA Jennifer LOZANO Facility:[facility] Start: 03-18-2025 End: 03-18-2025 Nursing evaluation of patient and report Nurse Cassandra Prado Work Phone: [facility] Comment on above: Paroxysmal atrial fi brillation (HCC) (Primary Dx) Start: 03-13-2025 End: 03-13-2025 Refill Tanya Lozano APRN.PHOTOENGRAVING SUPERVISOR Work Phone: [facility] Comment on above: Refill Request Start: 03-04-2025 End: 05-04-2025 Follow-up encounter Tanya Lozano APRN.PHOTOENGRAVING SUPERVISOR Work Phone: [facility] Start: 03-04-2025 End: 03-04-2025 Nursing evaluation of patient and report Nurse Cassandra Horan [place] Work Phone: [facility] Comment on above: Paroxysmal atrial fi brillation (HCC) (Primary Dx) Start: 03-04-2025 End: 03-04-2025 ambulatory TANYAUgo LOZANO Facility:[facility] Start: 02-04-2025 End: 04-06-2025 Follow-up encounter Tanya Lozano APRN.PHOTOENGRAVING SUPERVISOR Work Phone: [facility] Start: 02-04-2025 End: 02-04-2025 Nursing evaluation of patient and report Nurse Cassandra Horan [place] Work Phone: [facility] Comment on above: Paroxysmal atrial fi brillation (HCC) (Primary Dx) Start: 02-04-2025 End: 02-04-2025 ambulatory TANYA Jennifer BLAKE Facility[facility] Start: 01-03-2025 End: 03-05-2025 Follow-up encounter Tanya Lozano APRN.PHOTOENGRAVING SUPERVISOR Work Phone: [facility] Start: 01-03-2025 End: 01-03-2025 ambulatory TANYA Jennifer BLAKE Facility[facility] Start: 01-03-2025 End: 01-03-2025 Patient encounter procedure Tanya Lozano WIRE BENDER.PHOTOENGRAVING SUPERVISOR Work Phone: [facility] Comment on above: Essential hypertensi on, benign (Primary Dx); Hypothyroidism, unspecified type; Paroxysmal atrial fibrillation (HCC); Hyponatremia; Osteoporoses; Post-menopausal Start: 12-20-2024 End: 12-20-2024 Refill Tanya Lozano WIRE BENDER.PHOTOENGRAVING SUPERVISOR Work Phone: [facility] Comment on above: Refill Request Start: 12-19-2024 End: 12-19-2024 Patient encounter procedure Tanya Lozano WIRE BENDER.PHOTOENGRAVING SUPERVISOR Work Phone: [facility] Comment on above: Essential hypertensi on, benign (Primary Dx); Scalp lesion Start: 12-19-2024 End: 12-19-2024 ambulatory TANYA LOZANO Facility[facility] Start: 12-16-2024 End: 12-18-2024 Follow-up encounter Tanya Lozano APRN.PHOTOENGRAVING SUPERVISOR Work Phone: [facility] Comment on above: Results Start: 12-15-2024 End: 12-15-2024 ambulatory TANYA LOZANO Facility:[facility] Start: 12-03-2024 End: 12-03-2024 Patient encounter procedure Tanya Lozano WIRE BENDER.PHOTOENGRAVING SUPERVISOR Work Phone: [facility] Comment on above: Essential hypertensi on, benign (Primary Dx); Hypothyroidism, unspecified type; Vitamin D deficiency; Screening for lipid disorders Start: 12-03-2024 End: 12-03-2024 ambulatory TANYA LOZANO Facility[facility] Start: 11-30-2024 End: 12-02-2024 Telephone encounter Tanya Lozano WIRE BENDER.PHOTOENGRAVING SUPERVISOR Work Phone: [facility] Comment on above: Patient Update Start: 11-29-2024 [facility] Start: 11-29-2024 End: 11-29-2024 ambulatory TANYA LOZANO Facility:[facility] Start: 11-26-2024 End: 11-27-2024 Refill Tanya Lozano WIRE BENDER.PHOTOENGRAVING SUPERVISOR Work Phone: [facility] Comment on above: Refill Request Start: 11-05-2024 End: 11-05-2024 Follow-up encounter Tanya Lozano APRN.PHOTOENGRAVING SUPERVISOR Work Phone: [facility] Start: 11-02-2024 End: 11-02-2024 ambulatory TANYA M BLAKE Facility:[facility] Start: 10-29-2024 End: 10-29-2024 Telephone encounter Tanya Lozano APRN.PHOTOENGRAVING SUPERVISOR Work Phone: [facility] Comment on above: Lab Orders Start: 10-15-2024 End: 10-15-2024 Documentation procedure Shirley Perales MD Work Phone: [facility] Start: 10-15-2024 End: 10-15-2024 Letter encounter Shirley Perales MD Work Phone: [facility] Start: 10-09-2024 End: 10-09-2024 Telephone encounter Tanya Lozano APRN.PHOTOENGRAVING SUPERVISOR Work Phone: [facility] Comment on above: Coumadin/INR Orders (Mammogram or bryn) Start: 10-04-2024 End: 10-04-2024 Patient encounter procedure Genia Huitron WIRE BENDER.PHOTOENGRAVING SUPERVISOR Work Phone: [facility] Comment on above: Essential hypertensi on, benign (Primary Dx); Fall at home, sequela; Hamstring injury, left, initial encounter; Hyponatremia; Atrial fibrillation, unspecified type (HCC) Start: 10-04-2024 End: 10-04-2024 ambulatory TANYA M BLAKE Facility:[facility] Start: 10-01-2024 End: 10-01-2024 ambulatory Vera Albert RN Work Phone: Dehydrator Operator Start: 10-01-2024 End: 10-01-2024 Home visit Vera Albert RN Work Phone: Dehydrator Operator Comment on above: Transition Of Care ( TCM f/u) Weekly phone contact (Recurring) for Transitional Care Management, Weekly phone contact (Recurring) for Transitional Care Management Start: 09-05-2024 End: 09-05-2024 ambulatory Vera Albert RN Work Phone: Dehydrator Operator Start: 09-05-2024 End: 09-05-2024 Home visit Vera Albert RN Work Phone: Dehydrator Operator Comment on above: Transition Of Care ( TCM f/u) Weekly phone contact (Recurring) for Transitional Care Management Refill Request; Prim stephen Ice Plant Operator- Other Start: 08-30-2024 End: 09-05-2024 ambulatory Pau Rojas RN Dehydrator Operator Start: 08-30-2024 End: 09-05-2024 Home visit Pau Rojas RN Dehydrator Operator Comment on above: Transition Of Care ( Discharged from SNF to home with [facility]) Transition Of Care ( SNF D/C 08/29/24) Initial phone contact for Transitional Care Management Start: 08-29-2024 End: 08-29-2024 ambulatory Jorgeet Mckay OLS Facility:[facility] Start: 08-22-2024 ambulatory Bablucaset Mckay OLS Fac ility:[facility] Start: 08-21-2024 ambulatory Nicole Mckay OLS Fac ility:[facility] Start: 08-15-2024 End: 08-15-2024 ambulatory Pau Rojas RN AG Dehydrator Operator Start: 08-15-2024 End: 08-15-2024 Home visit Pau Rojas RN Dehydrator Operator Comment on above: Transition Of Care ( [facility] Discharge to SNF) Start: 08-15-2024 End: 08-15-2024 ambulatory Nicole KEENE Facility:[facility] Start: 08-13-2024 End: 08-13-2024 Telephone encounter Mirta Christian Work Phone: [facility] Comment on above: Home Care (Confirmat ion Call ) Start: 08-10-2024 End: 08-10-2024 Telephone encounter Tanya Lozano APRN.PHOTOENGRAVING SUPERVISOR Work Phone: [facility] Comment on above: Home Care (MD tyler fuentes) Start: 08-09-2024 End: 08-14-2024 Evaluation and management of inpatient TANYA LOZANO Facility:[facility] Start: 07-18-2024 End: 07-18-2024 ambulatory [facility] Jennifer BLAKE Facility:[facility] Start: 07-18-2024 End: 07-18-2024 Nursing evaluation of patient and report Nurse Intm Ag [place] Work Phone: [facility] Comment on above: Paroxysmal atrial fi brillation (HCC) (Primary Dx) Start: 06-18-2024 End: 06-18-2024 Nursing evaluation of patient and report Nurse Intm Ag [place] Work Phone: [facility] Comment on above: Paroxysmal atrial fi brillation (HCC) (Primary Dx) Start: 06-13-2024 End: 06-13-2024 Telephone encounter Tanya Lozano WIRE BENDER.PHOTOENGRAVING SUPERVISOR Work Phone: [facility] Comment on above: Statement of Physici an Start: 05-30-2024 End: 05-30-2024 Telephone encounter Tanya Lozano WIRE BENDER.PHOTOENGRAVING SUPERVISOR Work Phone: [facility] Comment on above: Results Start: 05-07-2024 End: 05-07-2024 Nursing evaluation of patient and report Nurse Intm Ag [place] Work Phone: [facility] Comment on above: Paroxysmal atrial fi brillation (HCC) (Primary Dx) Start: 05-05-2024 End: 05-05-2024 ambulatory TANYA LOZANO Facility:[facility] Start: 04-23-2024 End: 04-23-2024 Nursing evaluation of patient and report Nurse Intm Ag [place] Work Phone: [facility] Comment on above: Paroxysmal atrial fi brillation (HCC) (Primary Dx) Start: 04-09-2024 Refill Tanya duncan WIRE BENDER.PHOTOENGRAVING SUPERVISOR Work Phone: [facility] Comment on above: Refill Request Start: 03-26-2024 End: 03-26-2024 Nursing evaluation of patient and report Nurse Intm Ag Eve Work Phone: [facility] Comment on above: Paroxysmal atrial fi brillation (HCC) (Primary Dx) Start: 03-06-2024 Refill Tanya duncan WIRE BENDER.PHOTOENGRAVING SUPERVISOR Work Phone: [facility] Comment on above: Refill Request Start: 02-06-2024 End: 02-06-2024 Nursing evaluation of patient and report Nurse Intm Ag [place] Work Phone: [facility] Comment on above: Paroxysmal atrial fi brillation (HCC) (Primary Dx) Start: 01-19-2024 Refill Tanya duncan WIRE BENDER.PHOTOENGRAVING SUPERVISOR Work Phone: [facility] Comment on above: Refill Request Start: 01-16-2024 Refill Tanya duncan WIRE BENDER.PHOTOENGRAVING SUPERVISOR Work Phone: [facility] Comment on above: Refill Request Start: 01-11-2024 Telephone encounter Tanya Lozano WIRE BENDER.PHOTOENGRAVING SUPERVISOR Work Phone: [facility] Comment on above: Results Start: 01-10-2024 Telephone encounter Tanya Lozano WIRE BENDER.PHOTOENGRAVING SUPERVISOR Work Phone: [facility] Start: 12-07-2023 End: 12-07-2023 Nursing evaluation of patient and report Nurse Intm Ag [place] Work Phone: [facility] Comment on above: Paroxysmal atrial fi brillation (HCC) (Primary Dx) Start: 11-30-2023 End: 11-30-2023 Nursing evaluation of patient and report Nurse Famp Ag Eve Work Phone: [facility] Comment on above: Paroxysmal atrial fi brillation (HCC) (Primary Dx) Start: 11-01-2023 End: 11-01-2023 Nursing evaluation of patient and report Nurse Cassandra Prado Work Phone: [facility] Comment on above: Paroxysmal atrial fi brillation (HCC) (Primary Dx) Start: 09-29-2023 End: 09-29-2023 ambulatory CHRISTINA FRANCIS MD Facility:[facility] Start: 09-11-2023 Refill Tanya duncan APRN.PHOTOENGRAVING SUPERVISOR Work Phone: [facility] Comment on above: Refill Request Start: 08-25-2023 End: 08-25-2023 Nursing evaluation of patient and report Nurse Cassandra Prado Work Phone: [facility] Comment on above: Paroxysmal atrial fi brillation (HCC) (Primary Dx) Start: 08-10-2023 Telephone encounter Tanya Lozano APRN.PHOTOENGRAVING SUPERVISOR Work Phone: [facility] Comment on above: Results Start: 08-09-2023 Documentation procedure Mammog dez Coordinator [facility] Start: 08-09-2023 Letter encounter Mammography Coordinator [facility] ANCILLARY AREA NOT LISTED Start: 08-09-2023 Telephone encounter Tanya Lozano APRN.PHOTOENGRAVING SUPERVISOR Work Phone: [facility] Comment on above: Results Start: 08-03-2023 End: 08-03-2023 Subsequent hospital visit by physician Mammo/Bone Density [facility] Comment on above: Post-menopausal [Z78 .0] Start: 07-28-2023 End: 07-28-2023 Nursing evaluation of patient and report Nurse Cassandra Horan [place] Work Phone: [facility] Comment on above: Paroxysmal atrial fi brillation (HCC) (Primary Dx) Start: 07-19-2023 End: 07-19-2023 Patient encounter procedure Tanya Lozano APRN.RUBIO Work Phone: [facility] Comment on above: Medicare annual well ness visit, subsequent (Primary Dx); Post-menopausal Start: 07-14-2023 Refill Tanya duncan APRN.PHOTOENGRAVING SUPERVISOR Work Phone: [facility] Comment on above: Refill Request Start: 07-13-2023 End: 07-13-2023 Nursing evaluation of patient and report Nurse Cassandra Prado Work Phone: [facility] Comment on above: Paroxysmal atrial fi brillation (HCC) (Primary Dx) Start: 07-11-2023 End: 07-11-2023 Nursing evaluation of patient and report Nurse Cassandra Prado Work Phone: [facility] Comment on above: Paroxysmal atrial fi brillation (HCC) (Primary Dx) Start: 06-15-2023 End: 06-15-2023 Nursing evaluation of patient and report Nurse Cassandra Prado Work Phone: [facility] Comment on above: Paroxysmal atrial fi brillation (HCC) (Primary Dx) Start: 06-08-2023 End: 06-08-2023 Nursing evaluation of patient and report Nurse Cassandra Prado Work Phone: [facility] Comment on above: Paroxysmal atrial fi brillation (HCC) (Primary Dx) Start: 05-05-2023 End: 05-05-2023 Nursing evaluation of patient and report Nurse Cassandra Prado Work Phone: [facility] Comment on above: Paroxysmal atrial fi brillation (HCC) (Primary Dx) Start: 02-02-2023 End: 02-02-2023 Nursing evaluation of patient and report Nurse Cassandra Prado Work Phone: [facility] Comment on above: Paroxysmal atrial fi brillation (HCC) (Primary Dx) Start: 01-19-2023 Telephone encounter Tanya Lozano APRN.PHOTOENGRAVING SUPERVISOR Work Phone: [facility] Comment on above: Results (Labs ) Start: 01-17-2023 ambulatory Tanya duncan APRN.PHOTOENGRAVING SUPERVISOR Work Phone: [facility] Comment on above: ER F/U Start: 01-13-2023 End: 01-13-2023 Patient encounter procedure Tanya Lozano APRN.PHOTOENGRAVING SUPERVISOR Work Phone: [facility] Comment on above: Essential hypertensi on, benign (Primary Dx); Paroxysmal atrial fibrillation (HCC); TIA (transient ischemic attack); Hypothyroidism, unspecified type; Gastroesophageal reflux disease without esophagitis; Vitamin D deficiency; Screening for lipid disorders Start: 01-10-2023 Telephone encounter Tanya Lozano APRN.PHOTOENGRAVING SUPERVISOR Work Phone: [facility] Comment on above: Patient Update Start: 01-03-2023 End: 01-03-2023 Nursing evaluation of patient and report Nurse Intm Ag Eve Work Phone: [facility] Comment on above: Paroxysmal atrial fi brillation (HCC) (Primary Dx) Start: 12-09-2022 Refill Tanya duncan APRN.PHOTOENGRAVING SUPERVISOR Work Phone: [facility] Comment on above: Refill Request Start: 12-02-2022 End: 12-02-2022 Nursing evaluation of patient and report Nurse Intm Ag Eve Work Phone: [facility] Comment on above: Paroxysmal atrial fi brillation (HCC) (Primary Dx) Start: 11-17-2022 Refill Tanya duncan APRN.PHOTOENGRAVING SUPERVISOR Work Phone: [facility] Comment on above: Refill Request Start: 11-04-2022 End: 11-04-2022 Nursing evaluation of patient and report Nurse Intm Ag Eve Work Phone: [facility] Comment on above: Atrial fibrillation, unspecified type (HCC) (Primary Dx) Start: 09-13-2022 End: 09-13-2022 Nursing evaluation of patient and report Nurse Intm Ag [place] Work Phone: [facility] Comment on above: Atrial fibrillation, unspecified type (HCC) (Primary Dx) Start: 08-12-2022 End: 08-12-2022 Nursing evaluation of patient and report Nurse Intm Ag [place] Work Phone: [facility] Comment on above: Paroxysmal atrial fi brillation (HCC) (Primary Dx) Refill Request Start: 07-15-2022 End: 07-15-2022 Patient encounter procedure Tanya Lozano WIRE BENDER.PHOTOENGRAVING SUPERVISOR Work Phone: [facility] Comment on above: Essential hypertensi on, benign (Primary Dx); Paroxysmal atrial fibrillation (HCC); Hypothyroidism, unspecified type; Gastroesophageal reflux disease without esophagitis Start: 06-16-2022 Refill Tanya duncan WIRE BENDER.PHOTOENGRAVING SUPERVISOR Work Phone: [facility] Comment on above: Refill Request Start: 06-03-2022 End: 06-03-2022 Nursing evaluation of patient and report Nurse Cassandra Prado Work Phone: [facility] Comment on above: Paroxysmal atrial fi brillation (HCC) (Primary Dx) Start: 05-20-2022 End: 05-20-2022 Nursing evaluation of patient and report Nurse Cassandra Prado Work Phone: [facility] Comment on above: Paroxysmal atrial fi brillation (HCC) (Primary Dx) Start: 04-19-2022 End: 04-19-2022 Nursing evaluation of patient and report Nurse Intjennifer Prado Work Phone: [facility] Comment on above: Paroxysmal atrial fi brillation (HCC) (Primary Dx) Start: 03-18-2022 End: 03-18-2022 Nursing evaluation of patient and report Nurse Intjennifer Prado Work Phone: [facility] Comment on above: Paroxysmal atrial fi brillation (HCC) (Primary Dx) Start: 03-08-2022 End: 03-08-2022 Nursing evaluation of patient and report Nurse Intjennifer Prado Work Phone: [facility] Comment on above: Essential hypertensi on, benign (Primary Dx) Start: 03-04-2022 End: 03-04-2022 Nursing evaluation of patient and report Nurse Intjennifer Prado Work Phone: [facility] Comment on above: Atrial fibrillation, unspecified type (HCC) (Primary Dx) Start: 03-01-2022 End: 03-01-2022 Nursing evaluation of patient and report Nurse Cassandra Aung Ramosi Work Phone: [facility] Comment on above: Atrial fibrillation, unspecified type (HCC) (Primary Dx) Start: 02-26-2022 Telephone encounter Tanya Lozano APRN.PHOTOENGRAVING SUPERVISOR Work Phone: [facility] Comment on above: Appointment Start: 02-23-2022 End: 02-23-2022 Nursing evaluation of patient and report Nurse Cassandra Aung Prado Work Phone: [facility] Comment on above: Atrial fibrillation, unspecified type (HCC) (Primary Dx) Start: 02-16-2022 End: 02-16-2022 Nursing evaluation of patient and report Nurse Cassandra Aung Prado Work Phone: [facility] Comment on above: Paroxysmal atrial fi brillation (HCC) (Primary Dx) Start: 01-14-2022 Telephone encounter Tanya Lozano APRN.RUBIO Work Phone: [facility] Comment on above: Results Start: 01-13-2022 End: 01-13-2022 Patient encounter procedure Tanya Lozano APRN.PHOTOENGRAVING SUPERVISOR Work Phone: [facility] Comment on above: Essential hypertensi on, benign (Primary Dx); Paroxysmal atrial fibrillation (HCC); Hypothyroidism, unspecified type; Gastroesophageal reflux disease without esophagitis; Vitamin D deficiency; TIA (transient ischemic attack); Mixed stress and urge urinary incontinence Start: 01-11-2022 Telephone encounter Tanya Lozano APRN.RUBIO Work Phone: [facility] Comment on above: Missed Appointment Start: 12-28-2021 End: 12-28-2021 Nursing evaluation of patient and report Nurse Tonyjennifer Prado Work Phone: [facility] Comment on above: Essential hypertensi on, benign (Primary Dx) Start: 12-17-2021 End: 12-17-2021 Refill Tanya Lozano WIRE BENDER.PHOTOENGRAVING SUPERVISOR Work Phone: [facility] Comment on above: Refill Request Chronic anticoagulat ion (Primary Dx) Start: 08-03-2021 End: 08-03-2021 Subsequent hospital visit by physician Ricci Robbins Work Phone: [facility] Laboratory Start: 07-30-2021 End: 07-30-2021 Telephone encounter Patricia Vazquez MD Work Phone: Gastroenterology Comment on above: Appointment Start: 07-16-2021 End: 07-16-2021 Subsequent hospital visit by physician Andreas Casillas MD Work Phone: [facility] Laboratory Start: 06-22-2021 End: 06-22-2021 Subsequent hospital visit by physician Nara Hdz WIRE BENDER - PHOTOENGRAVING SUPERVISOR Work Phone: [facility] Laboratory Start: 05-07-2021 End: 05-07-2021 Subsequent hospital visit by physician Ricci Robbins Work Phone: [facility] Radiology Start: 02-24-2021 End: 02-24-2021 Subsequent hospital visit by physician Larissa Wynn WIRE BENDER - PHOTOENGRAVING SUPERVISOR Work Phone: [facility] Laboratory Start: 01-07-2021 End: 01-07-2021 Emergency department patient visit Kodak Salazar Work Phone: [facility] ED Comment on above: Altered mental statu s, unspecified altered mental status type (Primary Dx); Epigastric pain; Non-intractable vomiting with nausea, unspecified vomiting type Start: 08-25-2020 End: 08-25-2020 Subsequent hospital visit by physician Ricci Robbins Other Phone: [facility] Laboratory Start: 06-20-2020 End: 06-20-2020 Subsequent hospital visit by physician Tyree Crews Work Phone: [facility] General Surgery Comment on above: Spontaneous rupture of extensor tendon of left ankle (Primary Dx) Start: 06-13-2020 End: 06-13-2020 Subsequent hospital visit by physician Tyree Crews Work Phone: [facility] Pre-Admit Testing Comment on above: Arrived Start: 06-11-2020 End: 06-11-2020 Subsequent hospital visit by physician Tyree Crews Work Phone: [facility] Comment on above: Arrived Start: 05-30-2020 End: 05-30-2020 Emergency department patient visit Seamus Fang Work Phone: [facility] ED Comment on above: Lightheaded (Primary Dx); Hypertension, unspecified type; Chronic hyponatremia Start: 03-15-2018 Ambulatory Ricci Adame y:[facility] Procedures Date Procedure Procedure Detail Performing Clinician Start: 05-30-2025 Prothrombin time Ccf Pr ovider Start: 03-18-2025 Prothrombin time Ccf Pr ovider Start: 02-04-2025 Prothrombin time Ccf Pr ovider Start: 01-03-2025 Prothrombin time Kayden Lozano WIRE BENDER.PHOTOENGRAVING SUPERVISOR Work Phone: Start: 10-04-2024 Prothrombin time Brittn y Fredrick Huitron WIRE BENDER.PHOTOENGRAVING SUPERVISOR Work Phone: Start: 07-18-2024 Prothrombin time Ccf Pr ovider Start: 05-07-2024 Prothrombin time Ccf Pr ovider Start: 04-23-2024 Prothrombin time Ccf Pr ovider Start: 03-26-2024 Prothrombin time Ccf Pr ovider Start: 12-07-2023 Prothrombin time Ccf Pr ovider Start: 11-30-2023 Prothrombin time Ccf Pr ovider Start: 11-01-2023 Prothrombin time Ccf Pr ovider Start: 07-19-2023 Prothrombin time Kayden Lozano WIRE BENDER.PHOTOENGRAVING SUPERVISOR Work Phone: Start: 07-11-2023 Prothrombin time Ccf [...] ovider Start: 07-15-2022 Prothrombin time Kayden Lozano WIRE BENDER.PHOTOENGRAVING SUPERVISOR Work Phone: Start: 06-03-2022 Prothrombin time Ccf Pr ovider Start: 04-19-2022 Prothrombin time Ccf Pr ovider Start: 03-18-2022 Prothrombin time Ccf Pr ovider Start: 03-04-2022 Prothrombin time Ccf Pr ovider Start: 03-01-2022 Prothrombin time Ccf Pr ovider Start: 02-23-2022 Prothrombin time Ccf Pr ovider Start: 02-16-2022 Prothrombin time Ccf Pr ovider Start: 01-13-2022 Prothrombin time Kaydensoha Chambers Blake WIRE BENDER.PHOTOENGRAVING SUPERVISOR Work Phone: Start: 12-17-2021 Prothrombin time Ccf Pr ovider Start: 08-03-2021 Comprehensive metabo lic panel Patricia Vazquez MD Work Phone: Start: 07-16-2021 Assay of lipase Andreas Casillas MD Work Phone: Start: 06-22-2021 End: 06-22-2021 Comprehensive metabolic panel Nara Hdz WIRE BENDER - [facility] Work Phone: Start: 02-24-2021 Comprehensive metabo lic panel Larissa Wynn WIRE BENDER - [facility] Work Phone: Start: 01-07-2021 CT Abdomen and [...] DTaP,Tdap,Td Vaccine (2 - Td or Tdap) [facility] Start: 11-30-2027 Diabetes Screening Diabetes Screening [facility] Start: 11-27-2027 Diabetes Screening Diabetes Screening [facility] Start: 08-14-2027 Diabetes Screening Diabetes Screening [facility] Start: 08-12-2027 Diabetes Screening Diabetes Screening [facility] Start: 08-10-2027 Diabetes Screening Diabetes Screening [facility] Start: 05-25-2027 Diabetes Screening Diabetes Screening [facility] Start: 10-06-2026 Diabetes Screening Diabetes Screening [facility] Start: 09-08-2026 Diabetes Screening Diabetes Screening [facility] Start: 04-12-2026 DIABETES SCREEN DIABETES SCREEN [facility] Start: 04-12-2026 Diabetes Screening Diabetes Screening [facility] Start: 01-17-2026 DIABETES SCREEN DIABETES SCREEN [facility] Start: 12-20-2025 DIABETES SCREEN DIABETES SCREEN [facility] Start: 10-04-2025 Anxiety Screening Anxiety Screening [facility] Comment on above: Postponed from 1954 (Declined at t his time) Start: 10-04-2025 Covid-19 Vaccine () Covid-19 Vaccine () [facility] Comment on above: Postponed from 05/27/2024 (Declined at t his time) Start: 10-04-2025 Pneumococcal Vaccine: 50+ (1 of 2 - PCV) Pneumococcal Vaccine: 50+ (1 of 2 - PCV) [facility] Comment on above: Postponed from 1955 (Declined at t his time) Start: 10-04-2025 RSV Vaccine (1 - 1-dose 75+ series) RSV Vaccine (1 - 1-dose 75+ series) [facility] Comment on above: Postponed from 2011 (Declined at t his time) Start: 08-31-2025 DIABETES SCREEN DIABETES SCREEN [facility] Start: 07-22-2025 End: 07-22-2025 Patient encounter procedure 07/22/2025 2:40 PM EDT Office Visit Otolaryngology [address] [place] [address] Nigel Irizarry PA-C [address] [place] [address] Return in about 4 weeks (around 07/03/2025) Otolaryngology Comment on above: Return in about 4 weeks (around ) Start: 07-09-2025 End: 07-09-2025 Patient encounter procedure 07/09/2025 8:20 AM EDT Office Visit [facility] [address] [place] [address] Tanya Lozano, WIRE BENDER.[facility] [address] [place] [address] Medicare Wellness [facility] Comment on above: Medicare Wellness Start: 06-19-2025 End: 06-19-2025 Nursing evaluation of patient and report 06/19/2025 8:20 AM EDT Nurse Visit [address] [address] PT/INR [facility] Comment on above: PT/INR Start: 06-06-2025 End: 06-06-2025 Nursing evaluation of patient and report 06/06/2025 8:20 AM EDT Nurse Visit [address] [address] PT/INR [facility] Comment on above: PT/INR Start: 06-05-2025 End: 06-05-2025 Patient encounter procedure 06/05/2025 1:25 PM EDT Office Visit Otolaryngology [address] [place] [address] Nigel Irizarry PA-C [address] [place], [place] [id number] Epistaxis with packing Otolaryngology Comment on above: Epistaxis with packing Start: 06-05-2025 End: 06-05-2025 Nursing evaluation of patient and report 06/05/2025 10:40 AM EDT Nurse Visit [address] [address] PT/INR [facility] Comment on above: PT/INR Start: 05-30-2025 End: 05-30-2025 Nursing evaluation of patient and report 05/30/2025 8:20 AM EDT Nurse Visit [address] [address] PT/INR [facility] Comment on above: PT/INR Start: 05-27-2025 Influenza vaccination [facility] Start: 05-20-2025 End: 05-20-2025 Nursing evaluation of patient and report 05/20/2025 8:40 AM EDT Nurse Visit [address] [address] PT/INR [facility] Comment on above: PT/INR Start: 04-27-2025 DIABETES SCREEN DIABETES SCREEN [facility] Start: 04-17-2025 End: 04-17-2025 Nursing evaluation of patient and report 04/17/2025 8:20 AM EDT Nurse Visit [address] [address] PT/INR [facility] Comment on above: PT/INR Start: 03-25-2025 [facility]enza [facility] Comment on above: Postponed from 05/27/2024 (Declined at t his time) Start: 03-18-2025 End: 03-18-2025 Nursing evaluation of patient and report 03/18/2025 8:20 AM EDT Nurse Visit [address] [address] PT/INR [facility] Comment on above: PT/INR Start: 03-04-2025 End: 03-04-2025 Nursing evaluation of patient and report 03/04/2025 8:20 AM EDT Nurse Visit [address] [address] INR [facility] Comment on above: INR Start: 02-04-2025 End: 02-04-2025 Nursing evaluation of patient and report 02/04/2025 8:20 AM EDT Nurse Visit [address] [address] PT/INR [facility] Comment on above: PT/INR Start: 01-13-2025 DIABETES SCREEN DIABETES SCREEN [facility] Start: 01-03-2025 End: 01-03-2025 Patient encounter procedure 01/03/2025 7:40 AM EDT Office Visit [address] [address] Tanya Lozano, WIRE BENDER.[address] [address] 3 MTH f/U [facility] Comment on above: 3 MTH f/U Start: 12-19-2024 End: 12-19-2024 Patient encounter procedure 12/19/2024 10:40 AM EDT Office Visit [facility] [address] [place] [address] Tanya Lozano APRN.PHOTOENGRAVING SUPERVISOR [address] [place] [address] 2 WK F/U Blood Pressure [facility] Comment on above: 2 WK F/U Blood Pressure Start: 12-03-2024 End: 03-04-2025 25-hydroxyvitamin D3 [Mass/volume] in Serum or Plasma VITAMIN D 25 HYDROXY Lab Routine Vitamin D deficiency Expected: 12/03/2024, Expires: 03/04/2025 [facility] Comment on above: Expected: 12/03/2024, Expires: Start: 12-03-2024 End: 03-04-2025 Lipid 1996 panel - Serum or Plasma LIPID PANEL BASIC Lab Routine Screening for lipid disorders Expected: 12/03/2024, Expires: 03/04/2025 [facility] Work Phone: Comment on above: Expected: 12/03/2024, Expires: Start: 12-03-2024 End: 03-04-2025 Thyrotropin [Units/volume] in Serum or Plasma THYROID STIMULATING HORMONE Lab Routine Hypothyroidism, unspecified type Expected: 12/03/2024, Expires: 03/04/2025 [facility] Comment on above: Expected: 12/03/2024, Expires: Start: 12-03-2024 End: 03-04-2025 Thyroxine (T4) free [Mass/volume] in Serum or Plasma T4 FREE/FREE THYROXINE Lab Routine Hypothyroidism, unspecified type Expected: 12/03/2024, Expires: 03/04/2025 [facility] Comment on above: Expected: 12/03/2024, Expires: Start: 12-03-2024 End: 12-03-2024 Patient encounter procedure 12/03/2024 8:00 AM EDT Office Visit [facility] [address] [place] [address] Tanya Lozano, WIRE BENDER.PHOTOENGRAVING SUPERVISOR [address] [place] [address] high blood pressure [facility] Comment on above: high blood pressure Start: 11-01-2024 End: 11-01-2024 Patient encounter procedure 11/01/2024 10:30 AM EST Appointment [facility] [address] [place] [address] edmar screen [facility] Comment on above: edmar screen Start: 11-01-2024 End: 11-01-2024 Nursing evaluation of patient and report 11/01/2024 8:20 AM EST Nurse Visit [facility] [address] [place] [address] PT/INR [facility] Comment on above: PT/INR Start: 10-29-2024 End: 01-28-2025 PT panel - Platelet poor plasma by Coagulation assay PROTHROMBIN TIME Lab Routine Paroxysmal atrial fibrillation (HCC) Expected: 10/29/2024, Expires: 01/28/2025 [facility] Work Phone: Comment on above: Expected: 10/29/2024, Expires: Start: 10-20-2024 DIABETES SCREEN DIABETES SCREEN [facility] Start: 10-04-2024 End: 10-04-2024 Patient encounter procedure 10/04/2024 3:20 PM EST Office Visit [address] [address] Genia Huitron APRN.PHOTOENGRAVING SUPERVISOR [address] [place] [address] Reschedule of Charlenes from 09/18/ Pt may need INR/ [facility] Comment on above: Reschedule of Charlenes from 09/18/ Pt m ay need INR/ Start: 09-26-2024 Medicare Advantage Annual Wellness Visit Medicare Advantage Annual Wellness Visit [facility] Start: 09-18-2024 End: 09-18-2024 Patient encounter procedure 09/18/2024 11:20 AM EST Office Visit [facility] [address] [place] [address] Tanya Lozano, WIRE BENDER.PHOTOENGRAVING SUPERVISOR [address] [place] [address] [facility] D/C 08/29/24 - Fall, Injury to L hamstring, L hip & L thigh [facility] Comment on above: [facility] D/C 08/29/24 - Fall, Injury to L hamstring, L hip & L thigh Start: 08-20-2024 End: 08-20-2024 Patient encounter procedure 08/20/2024 9:40 AM EST Office Visit [facility] [address] [place] [address] Tanya Lozano, WIRE BENDER.PHOTOENGRAVING SUPERVISOR [address] [place] [address] DM follow up / PT/INR [facility] Comment on above: DM follow up / PT/INR Start: 07-19-2024 Covid-19 Vaccine ( season) Covid-19 Vaccine ( season) [facility] Comment on above: Postponed from 05/27/2023 (Declined at t his time) Start: 07-19-2024 Pneumococcal Vaccine: 65+ (1 - PCV) Pneumococcal Vaccine: 65+ (1 - PCV) [facility] Comment on above: Postponed from 2001 (Declined at t his time) Start: 07-19-2024 Pneumococcal Vaccine: 65+ (1 of 2 - PCV) Pneumococcal Vaccine: 65+ (1 of 2 - PCV) [facility] Comment on above: Postponed from 1942 (Declined at t his time) Start: 07-19-2024 RSV Vaccine (1 - 1-dose 60+ series) RSV Vaccine (1 - 1-dose 60+ series) [facility] Comment on above: Postponed from 1996 (Declined at t his time) Start: 07-19-2024 RSV Vaccine (1 - 1-dose 75+ series) RSV Vaccine (1 - 1-dose 75+ series) [facility] Comment on above: Postponed from 2011 (Declined at t his time) Start: 07-18-2024 End: 07-18-2024 Nursing evaluation of patient and report 07/18/2024 8:20 AM EDT Nurse Visit [address] [address] PT/INR [facility] Comment on above: PT/INR Start: 06-18-2024 End: 06-18-2024 Nursing evaluation of patient and report 06/18/2024 8:20 AM EDT Nurse Visit [address] [address] PT/INR [facility] Comment on above: PT/INR Start: 06-07-2024 End: 06-07-2024 Nursing evaluation of patient and report 06/07/2024 8:40 AM EDT Nurse Visit [address] [id number] pt inr [facility] Comment on above: pt inr Start: 05-27-2024 Covid-19 Vaccine ( season) Covid-19 Vaccine ( season) [facility] Start: 05-27-2024 Covid-19 Vaccine ( season) Covid-19 Vaccine ( season) [facility] Start: 05-27-2024 Influenza vaccination [facility] Start: 05-07-2024 End: 05-07-2024 Nursing evaluation of patient and report 05/07/2024 8:20 AM EDT Nurse Visit [address] [address] PT/INR [facility] Comment on above: PT/INR Start: 04-23-2024 End: 04-23-2024 Nursing evaluation of patient and report 04/23/2024 8:40 AM EDT Nurse Visit [address] [address] PT/INR [facility] Comment on above: PT/INR Start: 03-25-2024 Influenza vaccination Influenza Vaccine (#1) [facility] Comment on above: Postponed from 05/27/2023 (Declined at t his time) Start: 02-07-2024 End: 02-07-2024 Patient encounter procedure 02/07/2024 7:40 AM EDT Office Visit [facility] [address] [place] [address] Tanya Lozano APRN.PHOTOENGRAVING SUPERVISOR [address] [place] [address] 4 MTH F/U HTN and Thyroid [facility] Comment on above: 4 MTH F/U HTN and Thyroid Start: 01-14-2024 Urine microalbumin profile [facility] Comment on above: Postponed from 1955 (Declined at t his time) Start: 09-26-2023 Behavioral Health Screening Behavioral Health Screening [facility] Start: 09-26-2023 Depression Assessment Depression Assessment [facility] Start: 07-15-2023 COVID-19 VACCINE (4 - Booster) COVID-19 VACCINE (4 - Booster) [facility] Comment on above: Postponed from 09/16/2021 (Declined at t his time) Start: 07-15-2023 COVID-19 VACCINE (4 - Mixed Product series) COVID-19 VACCINE (4 - Mixed Product series) [facility] Comment on above: Postponed from 09/16/2021 (Declined at t his time) Start: 07-15-2023 Pneumococcal Vaccine: 65+ (1 - PCV) Pneumococcal Vaccine: 65+ (1 - PCV) [facility] Comment on above: Postponed from 2001 (Declined at t his time) Start: 07-15-2023 PNEUMOCOCCAL: 65+ (1 - PCV) PNEUMOCOCCAL: 65+ (1 - PCV) [facility] Comment on above: Postponed from 2001 (Declined at t his time) Start: 05-27-2023 Covid-19 Vaccine ( season) Covid-19 Vaccine ( season) [facility] Start: 05-27-2023 Influenza vaccination [facility] Start: 03-25-2023 Influenza vaccination INFLUENZA (#1) [facility] Comment on above: Postponed from 05/27/2022 (Declined at t his time) Start: 01-13-2023 End: 03-15-2023 25-hydroxyvitamin D3 [Mass/volume] in Serum or Plasma VITAMIN D 25 HYDROXY Lab Routine Vitamin D deficiency Expected: 01/13/2023, Expires: 03/15/2023 [facility] Work Phone: Comment on above: Expected: 01/13/2023, Expires: 3 Start: 01-13-2023 End: 03-15-2023 Comprehensive metabolic 2000 panel - Serum or Plasma COMP METABOLIC PANEL Lab Routine Essential hypertension, benign Expected: 01/13/2023, Expires: 03/15/2023 [facility] Work Phone: Comment on above: Expected: 01/13/2023, Expires: 3 Start: 01-13-2023 End: 03-15-2023 Lipid 1996 panel - Serum or Plasma LIPID PANEL BASIC Lab Routine Screening for lipid disorders Expected: 01/13/2023, Expires: 03/15/2023 [facility] Work Phone: Comment on above: Expected: 01/13/2023, Expires: 3 Start: 01-13-2023 End: 03-15-2023 Thyrotropin [Units/volume] in Serum or Plasma TSH BLD Lab Routine Hypothyroidism, unspecified type Expected: 01/13/2023, Expires: 03/15/2023 [facility] Work Phone: Comment on above: Expected: 01/13/2023, Expires: 3 Start: 09-26-2022 ADVANCE DIRECTIVE DISCUSSION ADVANCE DIRECTIVE DISCUSSION [facility] Start: 09-26-2022 DEPRESSION ASSESSMENT DEPRESSION ASSESSMENT [facility] Start: 09-25-2022 DEPRESSION ASSESSMENT DEPRESSION ASSESSMENT [facility] Comment on above: Postponed from 09/26/2021 (Declined at t his time) Start: 06-22-2022 Creatinine measurement [facility] Start: 06-22-2022 Potassium monitoring Pot[facility] Start: 06-05-2022 Creatinine measurement Creatinine monitoring [facility] Work Phone: Start: 06-05-2022 Potassium monitoring Potassium monitoring [facility] Work Phone: Start: 05-27-2022 Influenza vaccination [facility] Start: 03-25-2022 Influenza vaccination INFLUENZA (#1) [facility] Comment on above: Postponed from 05/27/2021 (Declined at t his time) Start: 02-24-2022 Creatinine measurement Creatinine monitoring [facility] Work Phone: Start: 02-24-2022 Potassium monitoring Potassium monitoring [facility] Work Phone: Start: 01-13-2022 End: 03-15-2022 T4 FREE/FREE THYROX [facility] Work Phone: Comment on above: Expected: 01/13/2022, Expires: Start: 01-13-2022 End: 03-15-2022 VITAMIN D 25 HYDROXY [facility] Work Phone: Comment on above: Expected: 01/13/2022, Expires: Start: 01-07-2022 Creatinine measurement Creatinine monitoring [employer] Work Phone: Start: 01-07-2022 Potassium monitoring Potassium monitoring [facility] Work Phone: Start: 11-22-2021 COVID-19 VACCINE (4 - Booster) COVID-19 VACCINE (4 - Booster) [facility] Start: 09-26-2021 ADVANCE DIRECTIVE DISCUSSION ADVANCE DIRECTIVE DISCUSSION [facility] Start: 09-16-2021 COVID-19 VACCINE (4 - Booster) COVID-19 VACCINE (4 - Booster) [facility] Start: 08-25-2021 Creatinine measurement Creatinine monitoring [employer] [place] Start: 08-25-2021 Potassium monitoring Potassium monitoring [employer] [place], [place] Start: 08-25-2021 Thyroid stimulating hormone measurement TSH testing [facility] Start: 08-25-2021 TSH Qn TSH testing [employer] [place], [place] Start: 07-30-2021 End: 07-30-2022 Amylase [Enzymatic activity/volume] in Serum or Plasma AMYLASE BLD Lab Routine Gallstone pancreatitis Expected: 07/30/2021, Expires: 07/30/2022 [facility] Comment on above: Expected: 07/30/2021, Expires: 2 Start: 07-30-2021 End: 07-30-2022 CBC W Auto Differential panel - Blood CBC + DIFF Lab Routine Gallstone pancreatitis Expected: 07/30/2021, Expires: 07/30/2022 [facility] Comment on above: Expected: 07/30/2021, Expires: 2 Start: 07-30-2021 End: 07-30-2022 Comprehensive metabolic 2000 panel - Serum or Plasma COMP METABOLIC PANEL Lab Routine Gallstone pancreatitis Expected: 07/30/2021, Expires: 07/30/2022 [facility] Comment on above: Expected: 07/30/2021, Expires: 2 Start: 07-03-2021 COVID-19 Vaccine (3 - Pfizer booster) COVID-19 Vaccine (3 - Pfizer booster) [facility] Start: 06-13-2021 [facility] [place] Start: 06-13-2021 Potassium monitoring Potassium monitoring [facility] [place] Start: 05-30-2021 [facility] [place] Start: 05-30-2021 Potassium monitoring Potassium monitoring [facility] [place] Start: 05-27-2021 Influenza vaccination [facility] Start: 06-20-2020 Hospital Encounter 06/20/2020 Hospital Encounter General Surgery Tyree Crews, DPM [address] [place] [id number] [facility] General Surgery Start: 05-27-2020 Influenza vaccination Flu vaccine (#1) [facility] [place] Start: 03-14-2020 Creatinine measurement [facility] [place] Start: 03-14-2020 Lipid panel Lipid screen [facility] [place] Start: 03-14-2020 Potassium monitoring Potassium monitoring [facility] [place] Start: 03-14-2020 TSH Qn TSH testing [facility] [place] Start: 03-14-2019 Annual Wellness Visit (AWV) Annual Wellness Visit (AWV) [facility] Start: 2011 RSV Vaccine (1 - 1-dose 75+ series) RSV Vaccine (1 - 1-dose 75+ series) [facility] Start: 2001 ADVANCE DIRECTIVE DISCUSSION ADVANCE DIRECTIVE DISCUSSION [facility] Start: 2001 BONE DENSITY BONE DENSITY [facility] Start: 2001 Pneumococcal 65+ years Vaccine (1 of 1 - PPSV23) Pneumococcal 65+ years Vaccine (1 of 1 - PPSV23) [facility] Start: 2001 PNEUMOCOCCAL: 65+ (1 - PCV) PNEUMOCOCCAL: 65+ (1 - PCV) [facility] Start: 2001 PNEUMOVAX AGE 65 AND OVER WITH 5YR LOOKBACK (#1) PNEUMOVAX AGE 65 AND OVER WITH 5YR LOOKBACK (#1) [facility] Start: 1996 RSV Vaccine (1 - 1-dose 60+ series) RSV Vaccine (1 - 1-dose 60+ series) [facility] Start: 1991 Screening for osteoporosis DEXA (modify frequency per FRAX score) [facility] Start: 1986 Shingles Vaccine (1 of 2) Shingles Vaccine (1 of 2) [facility] Start: 1986 SHINGRIX VACCINE (1 of 2) SHINGRIX VACCINE (1 of 2) [facility] Start: 1981 DIABETES SCREEN DIABETES SCREEN [facility] Start: 1955 DTaP/Tdap/Td vaccine (1 - Tdap) DTaP/Tdap/Td vaccine (1 - Tdap) [facility] Start: 1955 Pneumococcal Vaccine: 50+ (1 of 2 - PCV) Pneumococcal Vaccine: 50+ (1 of 2 - PCV) [facility] Start: 1955 Urine microalbumin profile [facility] Start: 1954 Anxiety Screening Anxiety Screening [facility] Start: 1954 Depression Screening Depression Screening [facility] Start: 1952 COVID-19 Vaccine (1) COVID-19 Vaccine (1) [facility] Work Phone: Start: 1948 COVID-19 Vaccine (1) COVID-19 Vaccine (1) [facility] Work Phone: Start: 1942 Pneumococcal Vaccine: 65+ (1 of 2 - PCV) Pneumococcal Vaccine: 65+ (1 of 2 - PCV) [facility] End: 01-07-2021 CK CK Lab STAT One Time for 1 Occurrences starting 01/07/2021 until 01/07/2021 [facility] Work Phone: Comment on above: One Time for 1 Occurrences starting 12/25 until 01/07/2021 End: 02-02-2026 DXA Skeletal system.axial Views for bone density DXA-AXIAL SKELETON Radiology Routine Osteoporoses Post-menopausal 1 Occurrences starting 01/03/2025 until 02/02/2026 [facility] Comment on above: 1 Occurrences starting 01/03/2025 until 02/02/2026 End: 08-17-2024 DXA-AXIAL SKELETON DXA-AXIAL SKELETON Radiology Routine Post-menopausal 1 Occurrences starting 07/19/2023 until 08/17/2024 [facility] Work Phone: Comment on above: 1 Occurrences starting 07/19/2023 until 08/17/2024 DXA-AXIAL SKELETON DXA-AXIAL SKE LETON Radiology Routine Post-menopausal 08/03/2023 10:59 AM EST [facility] Work Phone: EKG 12 Lead - Chest Pain EKG 12 Lead - Chest Pain ECG STAT 05/30/2020 4:56 PM EDT [place] End: 02-24-2021 Gliadin Antibodies, Serum Gliadin Antibodies, Serum Lab Routine Once for 1 Occurrences starting 02/24/2021 until 02/24/2021 [facility] Work Phone: Comment on above: Once for 1 Occurrences starting 02/25/20 21 until 02/24/2021 Gliadin Antibodies, Serum Gliadin Antibodies, Serum Lab Routine 02/24/2021 8:50 AM EDT [facility] Work Phone: INR in Platelet poor plasma by Coagulation assay INR (POC) Lab Routine Chronic anticoagulation Ordered: 12/17/2021 [facility] Work Phone: Comment on above: Ordered: 12/17/2021 INR in Platelet poor plasma by Coagulation assay INR (POC) Lab Routine Paroxysmal atrial fibrillation (HCC) Ordered: 02/16/2022 [facility] Work Phone: Comment on above: Ordered: 02/16/2022 INR in Platelet poor plasma by Coagulation assay INR (POC) Lab Routine Atrial fibrillation, unspecified type (HCC) Ordered: 02/23/2022 [facility] Work Phone: Comment on above: Ordered: 02/23/2022 INR in Platelet poor plasma by Coagulation assay INR (POC) Lab Routine Atrial fibrillation, unspecified type (HCC) Ordered: 03/01/2022 [facility] Work Phone: Comment on above: Ordered: 03/01/2022 INR in Platelet poor plasma by Coagulation assay INR (POC) Lab Routine Paroxysmal atrial fibrillation (HCC) Ordered: 05/20/2022 [facility] Work Phone: Comment on above: Ordered: 05/20/2022 INR in Platelet poor plasma by Coagulation assay INR (POC) Lab Routine Paroxysmal atrial fibrillation (HCC) Ordered: 06/03/2022 [facility] Work Phone: Comment on above: Ordered: 06/03/2022 INR in Platelet poor plasma by Coagulation assay INR (POC) Lab Routine Atrial fibrillation, unspecified type (HCC) Ordered: 09/14/2022 [facility] Work Phone: Comment on above: Ordered: 09/14/2022 INR in Platelet poor plasma by Coagulation assay INR (POC) Lab Routine Paroxysmal atrial fibrillation (HCC) Ordered: 12/02/2022 [facility] Work Phone: Comment on above: Ordered: 12/02/2022 INR in Platelet poor plasma by Coagulation assay INR (POC) Lab Routine Paroxysmal atrial fibrillation (HCC) Ordered: 05/05/2023 [facility] Work Phone: Comment on above: Ordered: 05/05/2023 INR in Platelet poor plasma by Coagulation assay INR (POC) Lab Routine Paroxysmal atrial fibrillation (HCC) Ordered: 06/08/2023 [facility] Work Phone: Comment on above: Ordered: 06/08/2023 INR in Platelet poor plasma by Coagulation assay INR (POC) Lab Routine Paroxysmal atrial fibrillation (HCC) Ordered: 06/15/2023 [facility] Work Phone: Comment on above: Ordered: 06/15/2023 INR in Platelet poor plasma by Coagulation assay INR (POC) Lab Routine Paroxysmal atrial fibrillation (HCC) Ordered: 07/11/2023 [facility] Work Phone: Comment on above: Ordered: 07/11/2023 INR in Platelet poor plasma by Coagulation assay INR (POC) Lab Routine Paroxysmal atrial fibrillation (HCC) Ordered: 07/13/2023 [facility] Work Phone: Comment on above: Ordered: 07/13/2023 INR in Platelet poor plasma by Coagulation assay INR (POC) Lab Routine Ordered: 07/19/2023 [facility] Work Phone: Comment on above: Ordered: 07/19/2023 INR in Platelet poor plasma by Coagulation assay INR (POC) Lab Routine Paroxysmal atrial fibrillation (HCC) Ordered: 08/01/2023 [facility] Work Phone: Comment on above: Ordered: 08/01/2023 INR in Platelet poor plasma by Coagulation assay INR (POC) Lab Routine Paroxysmal atrial fibrillation (HCC) Ordered: 08/25/2023 [facility] Work Phone: Comment on above: Ordered: 08/25/2023 INR in Platelet poor plasma by Coagulation assay INR (POC) Lab Routine Paroxysmal atrial fibrillation (HCC) Ordered: 11/01/2023 [facility] Work Phone: Comment on above: Ordered: 11/01/2023 INR in Platelet poor plasma by Coagulation assay INR (POC) Lab Routine Paroxysmal atrial fibrillation (HCC) Ordered: 11/30/2023 [facility] Work Phone: Comment on above: Ordered: 11/30/2023 INR in Platelet poor plasma by Coagulation assay INR (POC) Lab Routine Paroxysmal atrial fibrillation (HCC) Ordered: 02/06/2024 [facility] Work Phone: Comment on above: Ordered: 02/06/2024 INR in Platelet poor plasma by Coagulation assay INR (POC) Lab Routine Paroxysmal atrial fibrillation (HCC) Ordered: 03/26/2024 [facility] Work Phone: Comment on above: Ordered: 03/26/2024 INR in Platelet poor plasma by Coagulation assay INR (POC) Lab Routine Paroxysmal atrial fibrillation (HCC) Ordered: 04/23/2024 [facility] Work Phone: Comment on above: Ordered: 04/23/2024 INR in Platelet poor plasma by Coagulation assay INR (POC) Lab Routine Paroxysmal atrial fibrillation (HCC) Ordered: 05/07/2024 [facility] Work Phone: Comment on above: Ordered: 05/07/2024 INR in Platelet poor plasma by Coagulation assay INR (POC) Lab Routine Paroxysmal atrial fibrillation (HCC) Ordered: 06/18/2024 [facility] Work Phone: Comment on above: Ordered: 06/18/2024 INR in Platelet poor plasma by Coagulation assay INR (POC) Lab Routine Paroxysmal atrial fibrillation (HCC) Ordered: 07/18/2024 [facility] Work Phone: Comment on above: Ordered: 07/18/2024 INR in Platelet poor plasma by Coagulation assay INR (POC) Lab Routine Atrial fibrillation, unspecified type (HCC) Ordered: 10/04/2024 [facility] Work Phone: Comment on above: Ordered: 10/04/2024 INR in Platelet poor plasma by Coagulation assay INR (POC) Lab Routine Paroxysmal atrial fibrillation (HCC) Ordered: 01/03/2025 [facility] Work Phone: Comment on above: Ordered: 01/03/2025 INR in Platelet poor plasma by Coagulation assay INR (POC) Lab Routine Paroxysmal atrial fibrillation (HCC) Ordered: 02/04/2025 [facility] Work Phone: Comment on above: Ordered: 02/04/2025 INR in Platelet poor plasma by Coagulation assay INR (POC) Lab Routine Paroxysmal atrial fibrillation (HCC) Ordered: 03/04/2025 [facility] Work Phone: Comment on above: Ordered: 03/04/2025 INR in Platelet poor plasma by Coagulation assay INR (POC) Lab Routine Paroxysmal atrial fibrillation (HCC) Ordered: 03/18/2025 [facility] Work Phone: Comment on above: Ordered: 03/18/2025 INR in Platelet poor plasma by Coagulation assay INR (POC) Lab Routine Paroxysmal atrial fibrillation (HCC) Ordered: 04/17/2025 [facility] Work Phone: Comment on above: Ordered: 04/17/2025 INR in Platelet poor plasma by Coagulation assay INR (POC) Lab Routine Paroxysmal atrial fibrillation (HCC) Ordered: 05/22/2025 [facility] Work Phone: Comment on above: Ordered: 05/22/2025 INR in Platelet poor plasma by Coagulation assay INR (POC) Lab Routine Atrial fibrillation, unspecified type (HCC) Ordered: 05/30/2025 [facility] Work Phone: Comment on above: Ordered: 05/30/2025 INR in Platelet poor plasma by Coagulation assay INR (POC) Lab Routine Paroxysmal atrial fibrillation (HCC) Ordered: 06/05/2025 [facility] Work Phone: Comment on above: Ordered: 06/05/2025 End: 06-20-2020 Intermittent pulse oximetry Pulse Oximetry Spot Check Respiratory Care Routine One Time for 1 Occurrences starting 06/20/2020 until 06/20/2020 [facility] Comment on above: One Time for 1 Occurrences starting 05/28 until 06/20/2020 End: 07-30-2022 Lipase [Enzymatic activity/volume] in Serum or Plasma LIPASE BLD Lab Routine Gallstone pancreatitis 1 Occurrences starting 07/30/2021 until 07/30/2022 [facility] Comment on above: 1 Occurrences starting 07/30/2021 until 07/30/2022 Oxygen therapy [Minimum Data Set] Initiate Oxygen Therapy Protocol Respiratory Care Routine Daily until discontinued [facility] Comment on above: Daily until discontinued starting 2019 Phase I & II - meter ed glucose Phase I & II - metered glucose Point of Care Testing Routine As Needed until discontinued starting 06/20/2020 [facility] Comment on above: As Needed until discontinued starting Prothrombin time INR FINGERSTICK B/O Lab Routine Paroxysmal atrial fibrillation (HCC) Ordered: 01/13/2022 [facility] Work Phone: Comment on above: Ordered: 01/13/2022 Prothrombin time INR FINGERSTICK B/O Lab Routine Atrial fibrillation, unspecified type (HCC) Ordered: 03/04/2022 [facility] Work Phone: Comment on above: Ordered: 03/04/2022 Prothrombin time INR FINGERSTICK B/O Lab Routine Paroxysmal atrial fibrillation (HCC) Ordered: 03/18/2022 [facility] Work Phone: Comment on above: Ordered: 03/18/2022 Prothrombin time INR FINGERSTICK B/O Lab Routine Paroxysmal atrial fibrillation (HCC) Ordered: 04/19/2022 [facility] Work Phone: Comment on above: Ordered: 04/19/2022 Prothrombin time INR FINGERSTICK B/O Lab Routine Paroxysmal atrial fibrillation (HCC) Ordered: 08/12/2022 [facility] Work Phone: Comment on above: Ordered: 08/12/2022 Prothrombin time INR FINGERSTICK B/O Lab Routine Atrial fibrillation, unspecified type (HCC) Ordered: 11/04/2022 [facility] Work Phone: Comment on above: Ordered: 11/04/2022 Prothrombin time INR FINGERSTICK B/O Lab Routine Paroxysmal atrial fibrillation (HCC) Ordered: 01/03/2023 [facility] Work Phone: Comment on above: Ordered: 01/03/2023 Prothrombin time INR FINGERSTICK B/O Lab Routine Paroxysmal atrial fibrillation (HCC) Ordered: 02/02/2023 [facility] Work Phone: Comment on above: Ordered: 02/02/2023 End: 01-09-2025 PT panel - Platelet poor plasma by Coagulation assay PROTHROMBIN TIME Lab Routine Paroxysmal atrial fibrillation (HCC) 99 Occurrences starting 01/10/2024 until 01/09/2025, 1 completed [facility] Work Phone: Comment on above: 99 Occurrences [...] VIEWS) Imaging Routine 05/07/2021 2:32 PM EDT [facility] Work Phone: [facility] Immunizations Immunization Date Immunization Notes Care Provider Fa [facility] 08-09-2024 tetanus toxoid, redu arvin diphtheria toxoid, and acellular pertussis vaccine, adsorbed Tanya Blake WIRE BENDER.PHOTOENGRAVING SUPERVISOR Work Phone: [facility] 07-22-2021 COVID-19 vaccine (UNSPECIFIED) Tanya Lozano WIRE BENDER.PHOTOENGRAVING SUPERVISOR Work Phone: [facility] 01-01-2021 COVID-19 vaccine (UNSPECIFIED) Tanya Blake WIRE BENDER.PHOTOENGRAVING SUPERVISOR Work Phone: [facility] 12-10-2020 COVID-19 vaccine (UNSPECIFIED) Tanya Blake WIRE BENDER.PHOTOENGRAVING SUPERVISOR Work Phone: [facility] Payers Date Payer Category Payer Medicare [id number] 2024 Self-pay 2022 Medicare (Managed Care) [facility] CARE ADVANTAGE PPO [id number] 2022 Medicare [id number] 2021 Medicare UHC MEDICARE UHC MEDICARE ADVANTAGE PPO [id number] 2021-Present [phone] [address] [address] [place] [address] PPO [id number] 2021 Medicare [id number] 2020 Unknown [employer] [id number] 2020-Present Indemnity [id number] 2014 Medicare [id number] 2014 Medicare MEDICARE MEDICAR E PART A AND B [id number] 2014-Present [phone] [place] [address] [id number] 2014 Unknown INTALEKSANDR TORRES OD OF ELECTRIC IBEW [id number] 2014-Present [address] [place] [address] [id number] 2001 Medicare MEDICARE MEDICAR E A AND B [id number] 2001-Present [place] Medicare [id number] 2001 Unknown [id number] 1936 Unknown [id number] 1936 Unknown [id number] Private Health Insurance Unknown [id number] Unknown [id number] Unknown [id number] Unknown [id number] Social History Date Type Detail Facility [...] stat us NHIS Unknown if ever smoked [facility] Start: 08-09-2021 History SDOH Alcohol Comment Rarely [facility] Start: 01-14-2023 End: 02-02-2023 History of Social function [facility] Work Phone: Start: 01-14-2023 End: 02-02-2023 Tobacco use panel [facility] Work Phone: Start: 08-27-2012 Adult Depression Screening Assessment 0 [facility] Work Phone: Has the [employer], or [employer] threatened to shut off services in your home in past 12Mo No [facility] Are you now , , , , never or living with a partner? [facility] How often to you hav e a drink containing alcohol? Never [facility] (I/We) worried valarie er (my/our) food would run out before (I/we) got money to buy more. Never true [facility] Medical Equipment Procedure Code Equipment Code Equipment Origin al Text Equipment Identifier Dates [employer] Panc Jesus nt Strt Lb [id number] Start: 08-07-2021 Functional Status Date Assessment Result Facility 08-14-2024 Are you deaf, or do you have serious difficulty hearing No 08/14/2024 12:12 PM Diana Hwang, TASNEEM No [facility] 08-14-2024 Are you blind, or do you have serious difficulty seeing, even when wearing glasses No 08/14/2024 12:12 PM Diana Hwang RN No [facility] 08-14-2024 Do you have serious difficulty walking or climbing stairs No 08/14/2024 12:12 PM Diana Hwang RN No [facility] 08-14-2024 Do you have difficul ty dressing or bathing No 08/14/2024 12:12 PM Diana Hwang RN No [facility] 08-14-2024 Because of a physica l, mental, or emotional condition, do you have difficulty doing errands alone such as visiting a physician's office or shopping Yes 08/14/2024 12:12 PM Diana Hwang RN Yes [facility] Mental Status Date Assessment Result Facility 08-14-2024 Because of a physica l, mental, or emotional condition, do you have serious difficulty concentrating, remembering, or making decisions No 08/14/2024 12:12 PM Diana Hwang RN No [facility] Clinical Notes 06-06-2021 to 06-28-2025 Corrine Birmingham LPN - 06/06/2025 10:03 AM EDTPatient Nigel Martin PA-C - 06/05/2025 1:31 PM EDTTelephone Encounter - Corrine Birmingham LPN - 06/05/2025 11:04 AM EDT Note Date & Type Note Facility 06-28-2025 Note HNO ID: [id number] Author: NIKKI TARIQ RN Service: ? Author Type: Registered Nurse Type: Progress Notes Filed: 06/28/2025 07:29 Note Text: TRANSITION CARE MANAGEMENT (TCM) DISCHARGE TO POST ACUTE FACILITY POST ACUTE TRANSFER SUMMARY: -Pt discharged from [facility] on 06/27/2025. -Post Acute Facility Admitted to [facility] -Admitted for: Hyponatremia PCP's office will be notified when he/she discharges. Nikki Tariq RN June 28, 2025 7:28 AM [facility] 06-28-2025 Note Patient Outreach (AG ACM) HELEN LIEBERMAN ([id number]) 1935 F Date Time Provider Department 06/28/25 NIKKI TARIQ During your visit today, we recorded the following information about you: Nikki Tariq RN 06/28/2025 7:29 AM Signed TRANSITION CARE MANAGEMENT (TCM) DISCHARGE TO POST ACUTE FACILITY POST ACUTE TRANSFER SUMMARY: -Pt discharged from [facility] on 06/27/2025. -Post Acute Facility Admitted to [facility] -Admitted for: Hyponatremia PCP's office will be [...] for Visit: Transition Of Care [4074] Cmt: [facility] discharged to [facility] Prescriptions as of 06/28/2025 - losartan (COZAAR) [...] Encounter Status:Closed by NIKKI TARIQ on 06/28/25 [facility] 06-27-2025 Note HNO ID: [id number] Author: SUSIE MORRISON RN Service: Care Management Author Type: Registered Nurse Type: Care Mgt Progress Note Filed: 06/27/2025 13:21 Note Text: CARE MANAGEMENT DISCHARGE NOTE SERVICE DATE: June 27, 2025 SERVICE TIME: 1:19 PM Admission Date: 06/23/2025 LOS: 3 days Discharge Arrangement Discharge Arrangement: Fdc Facility Was an expedited discharge program used?: No Services Arranged SNF Placement Provider Name: [facility] Caregiver Assessment Caregiver is ready, willing and able to meet the patient's needs as recommended by the inter-professional team: Yes Name of Caregiver: [facility] Transportation Arrangements Transportation Arrangements: Ambulance Transportation Agency and Phone #:: [facility] [phone] Date of Trip: 06/27/25 Time of Trip: 1300 Type of Service: BLS Non-emergency Is Patient Medicaid Pending?: No Was transportation financial coverage discussed with family?: Patient [employer] Location: [place] Destination: [facility] Financial Care Management Responsibility: None Handoff Communication: Handoff to: Primary Care Physician Primary Care Physician Name/Phone: Dr Tanya Lozano SOC sent Additional Information: Per MD patient is medically ready for DC today AUTH approved to admit to [facility] will accept SNF updated with time and orders RN provided number to call report MMT set for 1pm per patient request. Aware of potential cost associated with medical transport SIGNATURE: Susie Morrison RN PATIENT NAME: Helen Lieberman DATE: June 27, 2025 TIME: 1:19 PM [facility] 06-27-2025 Note HNO ID: [id number] Author: SUSIE MORRISON RN Service: Care Management Author Type: Registered Nurse Type: Care Mgt Progress Note Filed: 06/27/2025 11:44 Note Text: CARE MANAGEMENT PROGRESS NOTE SERVICE DATE: 06/27/2025 SERVICE TIME: 11:44 AM LOS: 3 days IMM Follow Up Copy Given: Yes Copy given to:: Patient Method: In Person SIGNATURE: Susie Morrison RN PATIENT NAME: Helen Lieberman DATE: June 27, 2025 TIME: 11:43 AM [facility] 06-26-2025 Note HNO ID: [id number] Author: CARLOS AGUIRRE RN Service: Care Management Author Type: Registered Nurse Type: Care Mgt Progress Note Filed: 06/26/2025 14:46 Note Text: CARE MANAGEMENT PROGRESS NOTE SERVICE DATE: 06/26/2025 SERVICE TIME: 01:26 PM LOS: 2 days Needs Prior to Discharge: Discharge Transportation, Precertification, Other: See Comment (Medical clearance) Met with patient at bedside to discuss discharge plan. [facility]cert is obtained from patient's insurance. Discuss transportation, and patient will need medical transport. MMT is tentatively scheduled for at 1:00. CM will continue to follow. SIGNATURE: Carlos Aguirre RN PATIENT NAME: Helen Lieberman DATE: June 26, 2025 TIME: 2:43 PM [facility] 06-26-2025 Note HNO ID: [id number] Author: DONNA CASILLAS MD Service: Hospital Medicine Author Type: Physician Type: Progress Notes Filed: 06/26/2025 12:03 Note Text: DEPARTMENT OF HOSPITAL MEDICINE PROGRESS NOTE SERVICE DATE: 06/26/2025 SERVICE TIME: 12:02 PM Hospital Medicine/Primary Attending: Donna Casillas MD NIGHT AND WEEKEND COVERAGE: [place] [employer]: : [phone], please page attending physician. Nights: [phone], please page [place] Hospitalist Night coverage pager [phone]. Subjective INTERVAL HPI: Patient is feeling better [...] Airways Line Name Duration Peripheral 06/26/25 1105 [facility] Right Forearm 22 Gauge <1 day Reviewed [...] hypertension, benign Present (more content not included)... [facility] 06-25-2025 Note HNO ID: [id number] Author: DONNA CASILLAS MD Service: Hospital Medicine Author Type: Physician Type: Progress Notes Filed: 06/25/2025 16:55 Note Text: DEPARTMENT OF HOSPITAL MEDICINE PROGRESS NOTE SERVICE DATE: 06/25/2025 SERVICE TIME: 4:54 PM Hospital Medicine/Primary Attending: Donna Casillas MD NIGHT AND WEEKEND COVERAGE: [place] [employer]: Days: [phone], please page attending physician. Nights: [phone], please page [place] Hospitalist Night coverage pager [phone]. Subjective INTERVAL HPI: Patient is feeling better. [...] to allergy list. (more content not included)... [facility] 06-25-2025 Note HNO ID: [id number] Author: SUSIE MORRISON RN Service: Care Management Author Type: Registered Nurse Type: Care Mgt Progress Note Filed: 06/25/2025 12:36 Note Text: CARE MANAGEMENT PROGRESS NOTE SERVICE DATE: 06/25/2025 SERVICE TIME: 12:35 PM LOS: 1 day Needs Prior to Discharge: Insurance Authorization, Other: See Comment, Discharge Transportation (medical clearance) CM met with patient at bedside to [facility] and [facility] agreeable with a dc to this facility [facility] tasked for precert and complete HENS SIGNATURE: Susie Morrison RN PATIENT NAME: Helen Lieberman DATE: June 25, 2025 TIME: 12:35 PM [facility] 06-25-2025 Note HNO ID: [id number] Author: DONNA CASILLAS MD Service: Care Management [...] DATE: June 25, 2025 TIME: 11:24 AM [facility] 06-24-2025 Note HNO ID: [id number] Author: DONNA CASILLAS MD Service: Hospital Medicine Author Type: Physician Type: Progress Notes Filed: 06/24/2025 16:21 Note Text: DEPARTMENT OF HOSPITAL MEDICINE PROGRESS NOTE SERVICE DATE: 06/24/2025 SERVICE TIME: 11:52 AM Hospital Medicine/Primary Attending: Donna Casillas MD NIGHT AND WEEKEND COVERAGE: [place] COVERAGE: Days: [phone], please page attending physician. Nights: [phone], please page [place] Hospitalist Night coverage pager [phone]. Subjective INTERVAL HPI: Patient is feeling better. [...] diuretic STOP chlorthal (more content not included)... [facility] 06-24-2025 Note HNO ID: [id number] Author: SUSIE MORRISON RN Service: Care Management Author Type: Registered Nurse Type: Care Mgt Initial Assessment Filed: 06/24/2025 11:17 Note Text: CARE MANAGEMENT: ASSESSMENT AND DISCHARGE PLAN SERVICE DATE: June 24, 2025 SERVICE TIME: 11:13 AM PCP: Tanya Lozano APRN.CNP Primary Contact: Extended Emergency Contact Information Primary Emergency Contact: Earl Lieberman Mobile Relation: Son Admission Status: Observation Insurance Provider: [facility] MEDICARE ADVANTAGE PPO Discharge Planning requested by: Per Department Practice Potential Transition Plans Fdc Facility/Intermediate Care Facility Advance Directives Current Advance Directive: Health Care Power of Direct Mail Manager, Living Will In Chart: No Current Living [...] mobility, Ambulate a little better, Increase strength Lawrence of Choice Explained: [place] of Choice Given: Yes Level of Care Discussed: Fdc Facility Are you interested in bedside delivery [...] SNF Patient agreeable and requesting referral to [facility] Referral sent. Will need precert SIGNATURE: Susie Morrison RN PATIENT NAME: Helen Lieberman DATE: June 24, 2025 TIME: 11:13 AM [facility] 06-21-2025 Note HNO ID: [id number] Author: CORRINE BIRMINGHAM LPN Service: ? Author [...] seen in the Emergency Department (ED) Location: [place] Date: 06/16/2025 and 06/20/2025 Reason for ED [...] orders. Patient provided with appropriate counseling: Yes [facility] 06-21-2025 Note Patient Outreach (AG INTMLW) HELEN LIEBERMAN ([id number]) 1935 F Date Time Provider Department 06/21/25 [...] seen in the Emergency Department (ED) Location: [place] Date: 06/16/2025 and 06/20/2025 Reason for ED [...] Encounter Status:Closed by CORRINE BIRMINGHAM on 06/21/25 [facility] 06-19-2025 Note HNO ID: [id number] Author: CORRINE BIRMINGHAM LPN Service: ? Author [...] and verbalized an understanding. Corrine Birmingham LPN [facility] 06-19-2025 Note HNO ID: [id number] Author: CORRINE BIRMINGHAM LPN Service: ? Author Type: Licensed Nurse Type: Progress Notes Filed: 06/19/2025 08:34 Note Text: Pt here for INR check as ordered by Tanya Lozano CNP. Pt's INR 2.0 today. Pt taking Warfarin 2 mg daily. Pt prior INR was 2.7 on 06/05/2025. Pt's blood pressure today 172/82 174/88 [facility] 06-06-2025 Note HNO ID: [id number] Author: CORRINE BIRMINGHAM LPN Service: ? Author Type: Licensed Nurse Type: Progress Notes Filed: 06/06/2025 10:06 Note Text: ED Follow-Up Note Provider Action / FYI: Call completed by: ROBERT Patient seen in ED: In [facility] ED Contact made with Patient: Yes The patient was identified by Name and Date of . Discussed Care with: patient Patient was seen in the Emergency Department (ED) Location: [place] Date: 06/01/2025 Reason for ED Visit: Epistaxis [...] orders. Patient provided with appropriate counseling: Yes [facility] 06-06-2025 History of Presen t illness Narrative ED Follow-Up Note Provider Action / FYI: Call completed by: ROBERT Patient seen in ED: In [facility] ED Contact made with Patient: Yes The patient was identified by Name and Date of . Discussed Care with: patient Patient was seen in the Emergency Department (ED) Location: [place] Date: 06/01/2025 Reason for ED Visit: Epistaxis [...] appropriate counseling: Yes documented in this encounter [facility] 06-06-2025 Note Patient Outreach (AG INTMLW) HELEN LIEBERMAN ([id number]) 1935 F Date Time Provider Department 06/06/25 [...] seen in the Emergency Department (ED) Location: [place] Date: 06/01/2025 Reason for ED Visit: Epistaxis [...] for Visit: ED Follow Up [973] Cmt: [place] [facility] 06/02/2025 Prescriptions as of 06/06/2025 - [...] Encounter Status:Closed by CORRINE BIRMINGHAM on 06/06/25 [facility] 06-05-2025 Instructions Nigel Irizarry PA-C - 06/05/2025 1:59 PM EDT Images from the original note were not included. [facility] [place] HOME TREATMENT FOR NOSEBLEED PREVENTION Make sure [...] a day. For longer use, obtain an xmjm-ive-hdtvcef, water based, unscented lotion 2 times a day by placing a small amount into the front of the nose and sniff. Eucoderm, Neutrogena, or equivalent cosmetic product OR Wilson nasal saline ointment OR Nasogel (from [employer] [...] another 15 minutes. You can spray an mjjj-djh-llbdcce decongestant spray, such as oxymetazoline (Afrin, Deondre-Synephrine, etc) into the bleeding side of the nose and then hold apply pressure to the nose as described above. If bleeding is still uncontrollable, then you need to go to your closest emergency department. If you are having recurrent nose bleeds and they are difficult to control in pinching, there is an vxcj-qak-ureyxlp packing that you can use to pack your own nose. It is called NasalCease and it is a number of pharmacies including [facility]. The directions for use are in the package. documented in this encounter [facility] 06-05-2025 Note HNO ID: [id number] Author: NIGEL IRIZARRY PA-C Service: ? Author Type: Physician Bed Spring Maker Type: Progress Notes Filed: 06/05/2025 14:13 Note [...] which is mi (more content not included)... 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 Patient/authorized car sales representative agreed to proceed This note was partially generated using Zero2IPO voice recognition system. Occasional word recognition errors may be made. Nigel Irizarry PA-C [1] Social History Tobacco Use Smoking status: Never Smokeless tobacco: Never Vaping Use Vaping status: Never Used Substance Use Topics Alcohol use: Yes Comment: Rarely Drug use: Never documented in this encounter [facility] 06-05-2025 Telephone encounter Note Pt requesting refills as follows: Last Office Visit:01/03/2025 Next Office Visit: 07/09/2025 Requested Prescriptions Pending Prescriptions Disp Refills losartan (COZAAR) 100 mg tablet 90 tablet 1 Sig: Take 1 tablet by mouth once daily. Please review and advise. Corrine Birmingham LPN [facility] 06-05-2025 Miscellaneous Notes Pt requesting refills as follows: Last Office Visit:01/03/2025 Next Office Visit: 07/09/2025 Requested Prescriptions Pending Prescriptions Disp Refills losartan (COZAAR) 100 mg tablet 90 tablet 1 Sig: Take 1 tablet by mouth once daily. Please review and advise. Corrine Birmingham LPN documented in this encounter [facility] 06-05-2025 Note HNO ID: [id number] Author: CORRINE BIRMINGHAM LPN Service: ? Author Type: Licensed Nurse Type: Progress Notes Filed: 06/05/2025 11:02 Note Text: Pt here for INR check as ordered by Tanya Lozano CNP. INR today is 2.7. Pt took Warfarin 3 mg Tuesday and 2 mg Tue, Tue and . Pt last INR was 1.9 on discharge from [place] ER on 06/01/2025. Pt is scheduled today to have nasal packing removed. Per Tanya Lozano CNP pt to continue taking Warfarin 2 mg daily and recheck INR in 2 weeks. Pt aware and verbalized an understanding. Corrine Birmingham LPN [facility] 06-05-2025 History of Presen t illness Narrative Pt here for INR check as ordered by Tanya Lozano CNP. INR today is 2.7. Pt took Warfarin 3 mg Tuesday and 2 mg Tue, Tue and . Pt last INR was 1.9 on discharge from [place] ER on 06/01/2025. Pt is scheduled today to have nasal packing removed. Per Tanya Lozano CNP pt to continue taking Warfarin 2 mg daily and recheck INR in 2 weeks. Pt aware and verbalized an understanding. Corrine Birmingham LPN documented in this encounter [facility] 06-03-2025 Telephone encounter Note Pt aware and verbalized an understanding. Pt will be in on Tuesday for INR. Corrine Birmingham LPN [facility] 06-03-2025 Miscellaneous Notes Pt aware and verbalized [...] Corrine Birmingham LPN documented in this encounter [facility] 06-03-2025 Telephone encounter Note She should follow up with ENT. Recommend recheck INR this week. She should resume coumadin at 2 mg daily. Recheck inr tomorrow or Tuesday. [facility] 06-03-2025 Telephone encounter Note Pt left message that she was in the ER on Tuesday for nose bleed. Pt states that she was told to follow up with office to see if she needs to hold warfarin and when to recheck INR. Please advise Corrine Birmingham LPN [facility] 05-30-2025 Note HNO ID: [id number] Author: NICOLE FOREMAN MA Service: ? Author Type: Glaze Sprayer Type: Progress Notes Filed: 05/30/2025 08:28 Note Text: Patient is here to check their INR Last INR: 3.8 Current Dose: 2 mg M,W,F and 3 mg all other days INR: 3.4 Per PCP Hold today 3 mg sat, and Tuesday and 2 mg all other days recheck one week Nicole Foreman MA [facility] 05-30-2025 History of Presen t illness Narrative Patient is here to check their INR Last INR: 3.8 Current Dose: 2 mg M,W,F and 3 mg all other days INR: 3.4 Per PCP Hold today 3 mg sat, and Tuesday and 2 mg all other days recheck one week Nicole Foreman MA documented in this encounter [facility] 05-22-2025 Note HNO ID: [id number] Author: CHARISSE LANGE MA Service: ? Author Type: Glaze Sprayer Type: Progress Notes Filed: 05/22/2025 08:36 Note [...] directions given to patient. Charisse Lange MA [facility] 05-22-2025 History of Presen t illness Narrative [...] Charisse Lange MA documented in this encounter [facility] 05-03-2025 Note HNO ID: [id number] Author: CORRINE BIRMINGHAM LPN Service: ? Author [...] seen in the Emergency Department (ED) Location: [place] Date: 04/27/2025 Reason for ED Visit: Fall [...] orders. Patient provided with appropriate counseling: Yes [facility] 05-03-2025 Note Patient Outreach (AG INTMLW) HELEN LIEBERMAN ([id number]) 1935 F Date Time Provider Department 05/03/25 [...] seen in the Emergency Department (ED) Location: [place] Date: 04/27/2025 Reason for ED Visit: Fall [...] for Visit: ED Follow Up [973] Cmt: [place] [facility] 04/27/2025 Prescriptions as of 05/03/2025 - [...] left, initial encounter [S76.*08/10/2024 Encounter Status:Closed by CORRIEN BIRMINGHAM on 05/03/25 [facility] 05-01-2025 Note HNO ID: [id number] Author: CHARISSE LANGE MA Service: ? Author Type: Glaze Sprayer Type: Progress Notes Filed: 05/01/2025 09:48 Note Text: ED Follow Up: Patient discharged from [facility] ED on 04/27/25. 1. How are you [...] you able to contact the office or trains service conductor provider prior to your ED visit? left message 5. Is there anything else I can do for you today? Left message Charisse Lange MA [facility] 05-01-2025 Note Patient Outreach (AG INTMLW) HELEN LIEBERMAN ([id number]) 1935 F Date Time Provider Department 05/01/25 TANYA LOZANO AGINTMLW During your visit today, we recorded the following information about you: Charisse Lange MA 05/01/2025 9:48 AM Signed ED Follow Up: Patient discharged from [facility] ED on 04/27/25. 1. How are you [...] you able to contact the office or trains service conductor provider prior to your ED visit? left [...] Encounter Status:Closed by CHARISSE LANGE on 05/01/25 [facility] 04-17-2025 Note HNO ID: [id number] Author: TANYA LOZANO APRN.RUBIO Service: ? Author Type: Nurse Practitioner Type: Progress Notes Filed: 04/17/2025 12:48 Note Text: Continue current dose reheck one month [facility] 04-17-2025 History of Presen t illness Narrative Continue current dose reheck one month Pt. Identified by name and . Patient came in for INR. Last INR was 2.8 on March 18. Patient took 2mg Tuesday and and 3mg rest of days. Today INR was 2.8. patient advised to continue same dose and repeat in one month. Carlos Gonzáles MA documented in this encounter [facility] 04-17-2025 Note HNO ID: [id number] Author: CARLOS GONZÁLES MA Service: ? Author Type: Glaze Sprayer Type: Progress Notes Filed: 04/17/2025 08:34 Note Text: Pt. Identified by name and . Patient came in for INR. Last INR was 2.8 on March 18. Patient took 2mg Tuesday and Thursdays and 3mg rest of days. Today INR was 2.8. patient advised to continue same dose and repeat in one month. Carlos Gonzáles MA [facility] 04-04-2025 Note HNO ID: [id number] Author: CORRINE BIRMINGHAM LPN Service: ? Author [...] by: ROBERT Patient seen in ED: In [facility] ED Contact made with Patient: Yes The patient was identified by Name and Date of . Discussed Care with: patient Patient was seen in the Emergency Department (ED) Location: [facility] Date: 04/01/2025 Reason for ED Visit: Fall, [...] orders. Patient provided with appropriate counseling: Yes [facility] 04-04-2025 History of Presen t illness Narrative [...] seen in the Emergency Department (ED) Location: [facility] Date: 04/01/2025 Reason for ED Visit: Fall, [...] appropriate counseling: Yes documented in this encounter [facility] 04-04-2025 Note Patient Outreach (AG INTMLW) HELEN LIEBERMAN ([id number]) 1935 F Date Time Provider Department 04/04/25 [...] Encounter Status:Closed by CORRINE BIRMINGHAM on 04/04/25 [facility] 03-18-2025 Note HNO ID: [id number] Author: WILLOW WILSON MA Service: ? Author Type: Glaze Sprayer Type: Progress Notes Filed: 03/18/2025 12:46 Note Text: Called patient and informed of recommendations. Nurse visit scheduled INR calendar updated. Willow Wilson MA [facility] 03-18-2025 History of Presen t illness Narrative [...] Willow Wilson MA documented in this encounter [facility] 03-18-2025 Note HNO ID: [id number] Author: TAYNA LOZANO APRN.RUBIO Service: ? Author Type: Nurse Practitioner Type: Progress Notes Filed: 03/18/2025 12:46 Note Text: Continue current dose recheck in one month. [facility] 03-18-2025 Note HNO ID: [id number] Author: WILLOW WILSON MA Service: ? Author Type: Glaze Sprayer Type: Progress Notes Filed: 03/18/2025 12:46 Note Text: Patient here for INR check. Last INR was 3.2 on 03/04/25. Patient is currently taking coumadin 3 mg everyday except Tuesday and is 2 mg, and denies missing any doses. Patient's INR today was 2.8. Please advise. Willow Wilson MA [facility] 03-13-2025 Telephone encounter Note patient phones requesting refills as follows: Last seen 01/03/25 . Last refill 07/14/23 . Requested Prescriptions Pending Prescriptions Disp Refills warfarin (COUMADIN) 2 mg tablet 90 tablet 1 Sig: Take 1 tablet by mouth daily as directed. Please review and advise. Charisse aLnge MA [facility] 03-13-2025 Miscellaneous Notes patient phones requesting refills as follows: Last seen 01/03/25 . Last refill 07/14/23 . Requested Prescriptions Pending Prescriptions Disp Refills warfarin (COUMADIN) 2 mg tablet 90 tablet 1 Sig: Take 1 tablet by mouth daily as directed. Please review and advise. Charisse Lange MA documented in this encounter [facility] 03-04-2025 Note HNO ID: [id number] Author: CHARISSE LANGE MA Service: ? Author Type: Glaze Sprayer Type: Progress Notes Filed: 03/04/2025 08:43 Note [...] recheck in 2 weeks. Charisse Lange MA [facility] 03-04-2025 History of Presen t illness Narrative [...] Charisse Lange MA documented in this encounter [facility] 02-04-2025 Note HNO ID: [id number] Author: CHARISSE LANGE MA Service: ? Author Type: Glaze Sprayer Type: Progress Notes Filed: 02/04/2025 08:43 Note Text: Patient here for INR check. Last INR was 2.7 on 01/03/25. Patient is currently taking coumadin 2 mg on Sundays and 3 mg all other days, denies missing any doses. Patient's INR today was 2.4. Per conversation with Tanya Lozano CNP patient informed to continue current dose and recheck in 1 month. Charisse Lange MA [facility] 02-04-2025 History of Presen t illness Narrative [...] Charisse Lange MA documented in this encounter [facility] 01-03-2025 Instructions Tanya Lozano APRN.RUBIO - 01/03/2025 [...] usual activities immediately. documented in this encounter [facility] 01-03-2025 History of Presen t illness Narrative [...] 180/72 10/04/2024 146/60 Hyponatremia: She is seeing pharmacy clinical specialist Dr Ruiz for management for this. She was last seen 12/06/24. Afib: reports being dx 16 yrs ago. She reports she never followed with platform consultant. She is taking coreg twice daily and [...] placement on 08/07/21 for biliary obstruction at [facility]. Reports she has had 3 ERCPs. 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 Author Type: Nurse Practitioner Type: [...] 180/72 10/04/2024 146/60 Hyponatremia: She is seeing pharmacy clinical specialist Dr Ruiz for management for this. She was last seen 12/06/24. Afib: reports being dx 16 yrs ago. She reports she never followed with platform consultant. She is taking coreg twice daily and [...] placement on 08/07/21 for biliary obstruction at [facility]. Reports she has had 3 ERCPs. First [...] (HCC) 07/29/2021 Genie (more content not included)... [facility] 12-20-2024 Telephone encounter Note Pt requesting refills as follows: Last Office Visit:12/19/2024 Next Office Visit:01/03/2025 Requested Prescriptions Pending Prescriptions Disp Refills losartan (COZAAR) 100 mg tablet 30 tablet 0 Sig: Take 1 tablet by mouth once daily. Please review and advise. Corrine Birmingham LPN [facility] 12-20-2024 Miscellaneous Notes Pt requesting refills as follows: Last Office Visit:12/19/2024 Next Office Visit:01/03/2025 Requested Prescriptions Pending Prescriptions Disp Refills losartan (COZAAR) 100 mg tablet 30 tablet 0 Sig: Take 1 tablet by mouth once daily. Please review and advise. Corrine Birmingham LPN documented in this encounter [facility] 12-19-2024 Note HNO ID: [id number] Author: TANYA LOZANO APRN.PHOTOENGRAVING SUPERVISOR Service: ? Author Type: Nurse Practitioner Type: Progress Notes Filed: 12/19/2024 12:37 Note Text: This note was created using Kiwiriter. Subjective Helen Lieberman is a 89 year [...] DERMATOLOGY Tanya Bush (more content not included)... [facility] 12-19-2024 History of Presen t illness Narrative Images from the original note were not included. This note was created using Kiwiriter. Subjective Helen Lieberman is a 89 year [...] Tanya Lozano APRN.CNP documented in this encounter [facility] 12-18-2024 Telephone encounter Note Patient informed of results and recommendations. States she will discuss the zetia with Tanya tomorrow at her appointment. Charisse Lange MA [facility] 12-18-2024 Telephone encounter Note ----- Message from Tanya Lozano APRN.PHOTOENGRAVING SUPERVISOR sent at 12/16/2024 6:31 PM EDT ----- [...] one month. Continue current dose Thyroid wnl [facility] 12-18-2024 Miscellaneous Notes Patient informed of results and recommendations. States she will discuss the zetia with Tanya tomorrow at her appointment. Charisse Lange MA ----- Message from Tanya Lozano APRN.PHOTOENGRAVING SUPERVISOR sent at 12/16/2024 6:31 PM EDT ----- [...] dose Thyroid wnl documented in this encounter [facility] 12-03-2024 Note HNO ID: [id number] Author: CHARISSE LANGE MA Service: ? Author Type: Glaze Sprayer Type: Progress Notes Filed: 12/03/2024 21:08 Note Text: Home BP Readings: 11/30 11am left arm 161/66, right arm 152/92 12/01 9:45am right arm 139/69, left arm 144/61, 2:45pm right arm 154/87 12/02 9am right arm 153/67, left arm 148/69, 5:30pm right arm 170/82, left arm 196/77 12/03 7:15am right arm 217/105, left arm 213/93 [facility] 12-03-2024 History of Presen t illness Narrative Home BP Readings: 11/30 11am left arm 161/66, right arm 152/92 12/01 9:45am right arm 139/69, left arm 144/61, 2:45pm right arm 154/87 12/02 9am right arm 153/67, left arm 148/69, 5:30pm right arm 170/82, left arm 196/77 12/03 7:15am right arm 217/105, left arm 213/93 This note was created using Kiwiriter. Subjective Helen Lieberman is a 89 year [...] content normal. Judgment: Judgment normal. Latest Ref [facility] 11/29/2024 Protein, Total 6.3 - 8.0 [...] ICD10: Z13.220 - LIPID PANEL BASIC Tanya Lzoano APRN.PHOTOENGRAVING SUPERVISOR documented in this encounter [facility] 12-03-2024 Note HNO ID: [id number] Author: TANYA LOZANO APRN.PHOTOENGRAVING SUPERVISOR Service: ? Author Type: Nurse Practitioner Type: Progress Notes Filed: 12/03/2024 21:08 Note Text: This note was created using [employer]wir[employer]. Subjective Helen Lieberman is a 89 year [...] Normal pulses. Hea (more content not included)... [facility] 11-30-2024 Telephone encounter Note She needs to be seen sooner - unfortunately we do not have any openings today - please schedule her on Tuesday. If no openings at least a [place]. Dee [facility] Work Phone: 11-30-2024 Miscellaneous Notes She needs [...] 01/03/2025 with CN. documented in this encounter [facility] 11-30-2024 Telephone encounter Note Patient of Cn. Left message on vm stating she saw Dr. Casillas today and her blood pressure was 209/89. She was advised to contact CN office today . Please advise. Pt. Has apt. 01/03/2025 with CN. [facility] 11-27-2024 Telephone encounter Note Patient informed. Charisse Lange MA [facility] 11-27-2024 Telephone encounter Note ----- Message from Tanya Lozano APRN.PHOTOENGRAVING SUPERVISOR sent at 11/26/2024 12:49 PM EST ----- Inr in range. Recheck 4 wks [facility] 11-27-2024 Miscellaneous Notes Patient informed. Charisse Lange MA ----- Message from Tanya Lozano APRN.PHOTOENGRAVING SUPERVISOR sent at 11/26/2024 12:49 PM EST ----- Inr in range. Recheck 4 wks documented in this encounter [facility] 11-26-2024 Telephone encounter Note patient requesting refills [...] once daily. Please review and advise. Charisse Laneg MA [facility] 11-26-2024 Miscellaneous Notes patient requesting refills as [...] Charisse Lange MA documented in this encounter [facility] 11-05-2024 Telephone encounter Note Patient is informed Nicole Foreman MA [facility] 11-05-2024 Miscellaneous Notes Patient is informed Nicole Foreman MA ----- Message from Tanya Lozano APRN.PHOTOENGRAVING SUPERVISOR sent at 11/05/2024 7:11 AM EST ----- Wnr Continue current dose recheck in one month documented in this encounter [facility] 11-05-2024 Telephone encounter Note ----- Message from Tanya Lozano APRN.PHOTOENGRAVING SUPERVISOR sent at 11/05/2024 7:11 AM EST ----- Wnr Continue current dose recheck in one month [facility] 10-29-2024 Telephone encounter Note Order placed [facility] 10-29-2024 Miscellaneous Notes Order placed Office INR machine is unable to be used, patient has nurse visit INR scheduled for 11/01. Please place lab order for patient to complete check at the lab. Thanks! Charisse Lange MA documented in this encounter [facility] 10-29-2024 Telephone encounter Note Office INR machine is unable to be used, patient has nurse visit INR scheduled for 11/01. Please place lab order for patient to complete check at the lab. Thanks! Charisse Lange MA [facility] 10-09-2024 Telephone encounter Note Call placed to pt, she states that she had 4 sisters that had breast. Pt states that her sister was 91 years old last year when she was diagnosed. Pt states that she has been having these done regularly and would just like the peace of mind. Corrine Birmingham LPN [facility] 10-09-2024 Miscellaneous Notes Call placed to pt, [...] Corrine Birmingham LPN documented in this encounter [facility] 10-09-2024 Telephone encounter Note Is there a reason she wants a mammogram. Mammogram is not recommended or needed [facility] 10-09-2024 Telephone encounter Note Pt asking for mammogram order to be placed. Pt would like call once order is placed so she can schedule. Corrine Birmingham LPN [facility] 10-09-2024 Telephone encounter Note Call placed to pt, advised of the below recommendation. Pt states that she currently takes 2 mg on Sundays and 3 mg all other days. Pt is scheduled for recheck on 11/01/2024 Corrine Birmingham LPN [facility] 10-09-2024 Miscellaneous Notes Call placed to pt, advised of the below recommendation. Pt states that she currently takes 2 mg on Sundays and 3 mg all other days. Pt is scheduled for recheck on 11/01/2024 Corrine Birmingham LPN ----- Message from Tanya Lozano APRN.PHOTOENGRAVING SUPERVISOR sent at 10/07/2024 11:36 AM EST ----- Wnr. Continue current dose recheck one month documented in this encounter [facility] 10-09-2024 Telephone encounter Note ----- Message from Tanya Lozano APRN.PHOTOENGRAVING SUPERVISOR sent at 10/07/2024 11:36 AM EST ----- Wnr. Continue current dose recheck one month [facility] 10-04-2024 Note HNO ID: [id number] Author: GENIA HUITRON APRN.RUBIO Service: ? Author [...] physical therapy confirmed this. She will need senior care facility. The hyponatremia is due to low [...] daily. No current (more content not included)... [facility] 10-04-2024 History of Presen t illness Narrative [...] physical therapy confirmed this. She will need senior care facility. The hyponatremia is due to low [...] (H) 74 - 99 mg/dL Final The [place] Diabetes Association (ADA) provides guidance for cutoff [...] Standards of Medical Care in Diabetes 2016, [place] Diabetes Association. Diabetes Care. 2016.39(Suppl 1). BUN [...] Monocytes % 08/09/2024 9.5 % Final Abs Bland 08/09/2024 0.64 <0.87 k/uL Final Eosinophils % [...] with VKA drugs, such as warfarin, the [place] College [employer] 2012 Guideline recommends [...] Chest 2012, 141:7S-47S Jayce ALVARADO et al. [facility] 2017, 70: 252-289 APTT 08/09/2024 41.5 (H) 23.0 - 32.4 sec Final Color 08/09/2024 Yellow Yellow Final Clarity 08/09/2024 Clear Clear Final Glucose, Urine 08/09/2024 Negative Negative Final Bilirubin, Urine 08/09/2024 Negative Negative Final Ketones, Urine 08/09/2024 Negative Negative Final Specific [place], Ur 08/09/2024 1.010 1.005 - 1.030 Final [...] (Bazett) 08/09/2024 429 ms Final Calculated P Marcus 08/09/2024 106 degrees Final Calculated R Marcus 08/09/2024 37 degrees Final Calculated T Marcus 08/09/2024 45 degrees Final VICTORINA High Sensitivity 08/09/2024 18 (H) <12 ng/L Final NT Pro BNP 08/09/2024 815 (H) <450 pg/mL Final Ventricular Rate 08/09/2024 67 BPM Preliminary Atrial Rate 08/09/2024 67 BPM Preliminary P-R Interval 08/09/2024 212 ms Preliminary QRS Duration 08/09/2024 80 ms Preliminary QT Interval 08/09/2024 406 ms Preliminary QTC Calculation (Bazett) 08/09/2024 429 ms Preliminary Calculated P Marcus 08/09/2024 106 degrees Preliminary Calculated R Marcus 08/09/2024 37 degrees Preliminary Calculated T Marcus 08/09/2024 45 degrees Preliminary VICTORINA High Sensitivity [...] (H) 74 - 99 mg/dL Final The [place] Diabetes Association (ADA) provides guidance for cutoff [...] Standards of Medical Care in Diabetes 2016, [place] Diabetes Association. Diabetes Care. 2016.39(Suppl 1). BUN [...] with VKA drugs, such as warfarin, the [place] [employer] 2012 Guideline recommends [...] (H) 74 - 99 mg/dL Final The [place] Diabetes Association (ADA) provides guidance for cutoff [...] Standards of Medical Care in Diabetes 2016, [place] Diabetes Association. Diabetes Care. 2016.39(Suppl 1). BUN [...] (H) 74 - 99 mg/dL Final The [place] Diabetes Association (ADA) provides guidance for cutoff [...] Standards of Medical Care in Diabetes 2016, [place] Diabetes Association. Diabetes Care. 2016.39(Suppl 1). BUN [...] (H) 74 - 99 mg/dL Final The [place] Diabetes Association (ADA) provides guidance for cutoff [...] Standards of Medical Care in Diabetes 2016, [place] Diabetes Association. Diabetes Care. 2016.39(Suppl 1). BUN [...] (H) 74 - 99 mg/dL Final The [place] Diabetes Association (ADA) provides guidance for cutoff [...] Standards of Medical Care in Diabetes 2016, [place] Diabetes Association. Diabetes Care. 2016.39(Suppl 1). BUN [...] Genia Huitron APRN.CNP documented in this encounter [facility] 10-01-2024 Note HNO ID: [id number] Author: VERA ALBERT RN Service: ? Author [...] questions performed? 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 Signature: Vera Albert RN October 01, 2024 [facility] 10-01-2024 History of Presen t illness Narrative [...] questions performed? 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 Signature: Vera Albert RN October 01, 2024 documented in this encounter [facility] 10-01-2024 Note Patient Outreach (AG ACM) HELEN LIEBERMAN ([id number]) 1935 F Date Time Provider Department 10/01/24 VERA ALBERT [facility] During your visit today, we recorded the [...] questions performed? 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 Author [...] questions performed? 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 Signature: Vera Albert RN September 24, 2024 [facility] 09-24-2024 Note Patient Outreach (AG ACM) HELEN LIEBERMAN ([id number]) 1935 F Date Time Provider Department 09/24/24 VERA ALBERT [facility] During your visit today, we recorded the [...] questions performed? 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 Pt needs a refill on her Losartan. 30 day supply pended for her local pharmacy. Her next appointment is 09/18/24. Thanks. Vera Albert, TASNEEM [facility] Work Phone: 09-05-2024 Miscellaneous Notes Gary Caputo. Pt needs a refill on her Losartan. 30 day supply pended for her local pharmacy. Her next appointment is 09/18/24. Thanks. Vera Albert RN documented in this encounter [facility] 09-05-2024 Note HNO ID: [id number] Author: VERA ALBERT RN Service: ? Author [...] this refill to be sent to [facility], otherwise she won't get it in time from her mail order pharmacy. Med pended for pt's PCP. No other needs noted. Health leads screening tool questions performed? 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 Signature: Vera Albert RN September 05, 2024 [facility] 09-05-2024 History of Presen t illness Narrative [...] like this refill to be sent to [facility], otherwise she won't get it in time from her mail order pharmacy. Med pended for pt's PCP. No other needs noted. Health leads screening tool questions performed? 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 Signature: Vera Albert RN September 05, 2024 documented in this encounter [facility] 09-05-2024 Note HNO ID: [id number] Author: CHARISSE LANGE MA Service: ? Author Type: Glaze Sprayer Type: Progress Notes Filed: 09/05/2024 10:55 Note Text: Patient informed. Charisse Lange MA [facility] 09-05-2024 History of Presen t illness Narrative Patient informed. Charisse Lange MA At this time she should continue orders per hospital discharge. We can further discuss at her office visit. TRANSITIONAL CARE MANAGEMENT (TCM) COMMUNITY MONITORING PROGRAM - [place] Provider Action/FYI: Coreg - Pt wants to [...] in EPIC yet SUMMARY: Pt discharged from [facility] on 08/29/24. Pt discharged from [facility] on 08/14/24. RISK 16 Admitted for: Fall Hamstring injury, left - tear Hematoma of left thigh Left hip pain Hyponatremia Patient seen Inpatient HAYLEE Visit? N/A. Patient seen ICARE Program? N/A. Contact made with patient: Yes Hi my name is Vera Albert RN and I am calling from the [facility] on behalf of your PCP, Tanya Lozano APRN.PHOTOENGRAVING SUPERVISOR I understand you were recently in the [...] like to speak with a social work bioinformatics team member to help give you support for any [...] see Dr. Alvarez w/ Ortho. Number provided ([phone]). She is also supposed to get labs to check her kidney function and f/u w/ Dr. Gore. Renal Function Panel has already been ordered. Pt will call this provider to schedule an appointment. Vera Albret RN documented in this encounter [facility] 09-05-2024 Note Patient Outreach (AG ACM) HELEN LIEBERMAN ([id number]) 1935 F Date Time Provider Department 09/05/24 VERA ALBERT [facility] During your visit today, we recorded the [...] this refill to be sent to [facility], otherwise she won't get it in time from her mail order pharmacy. Med pended for pt's PCP. No other needs noted. Health leads screening tool questions performed? 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 Author Type: Nurse Practitioner Type: Progress Notes Filed: 09/05/2024 10:55 Note Text: At this time she should continue orders per hospital discharge. We can further discuss at her office visit. [facility] 08-30-2024 Note HNO ID: [id number] Author: VERA ALBERT, RN Service: ? Author Type: Registered Nurse Type: Progress Notes Filed: 09/05/2024 10:55 Note Text: TRANSITIONAL CARE MANAGEMENT (TCM) COMMUNITY MONITORING PROGRAM - [place] Provider Action/FYI: Coreg - Pt wants to [...] in EPIC yet SUMMARY: Pt discharged from [facility] on 08/29/24. Pt discharged from [facility] on 08/14/24. RISK 16 Admitted for: Fall Hamstring injury, left - tear Hematoma of left thigh Left hip pain Hyponatremia Patient seen Inpatient HAYLEE Visit? N/A. Patient seen ICARE Program? N/A. Contact made with patient: Yes Hi my name is Vera Albert RN and I am calling from the [facility] on behalf of your PCP, Tanya Lozano APRN.PHOTOENGRAVING SUPERVISOR I understand you were recently in the [...] only warfarin (COUMA (more content not included)... [facility] 08-30-2024 Note HNO ID: [id number] Author: PAU ROJAS RN Service: ? Author Type: Registered Nurse Type: Progress Notes Filed: 08/30/2024 07:20 Note Text: Received notification via careport: Patient discharged from [facility] on 08/29/2024 to home with [facility]. A discharge summary and medicatoin list has been requested. PCC notified. Pau Rojas RN August 30, 2024 [facility] 08-30-2024 History of Presen t illness Narrative Received notification via careport: Patient discharged from [facility] on 08/29/2024 to home with [facility]. A discharge summary and medicatoin list has been requested. PCC notified. Pau Rojas RN August 30, 2024 documented in this encounter [facility] 08-30-2024 Note Patient Outreach (AG AC) HELEN LIEBERMAN ([id number]) 1935 F Date Time Provider Department 08/30/24 PAU ROJAS [facility] During your visit today, we recorded the following information about you: Pau Rojas RN 08/30/2024 7:20 AM Signed Received notification via careport: Patient discharged from [facility] on 08/29/2024 to home with [facility]. A discharge summary and medicatoin list has been requested. PCC notified. Pau Rjoas RN August 30, 2024 Allergies As of [...] Encounter Status:Closed by PAU ROJAS on 08/30/24 [facility] 08-30-2024 Note Patient Outreach (AG ACM) HELEN LIEBERMAN ([id number]) 1935 F Date Time Provider Department 08/30/24 VERA ALBERT [facility] During your visit today, we recorded the following information about you: Vera Albert, TASNEEM 09/05/2024 10:55 AM Signed TRANSITIONAL CARE MANAGEMENT (TCM) COMMUNITY MONITORING PROGRAM - [place] Provider Action/FYI: Coreg - Pt wants to [...] in EPIC yet SUMMARY: Pt discharged from [facility] on 08/29/24. Pt discharged from [facility] on 08/14/24. RISK 16 Admitted for: Fall Hamstring injury, left - tear Hematoma of left thigh Left hip pain Hyponatremia Patient seen Inpatient HAYLEE Visit? N/A. Patient seen ICARE Program? N/A. Contact made with patient: Yes Hi my name is Vera Albert RN and I am calling from the [facility] on behalf of your PCP, Tanya Lozano APRN.PHOTOENGRAVING SUPERVISOR I understand you were recently in the [...] Verified warfarin (COUMAD (more content not included)... [facility] 08-15-2024 Note HNO ID: [id number] Author: PAU ROJAS RN Service: ? Author Type: Registered Nurse Type: Progress Notes Filed: 08/15/2024 07:43 Note Text: TRANSITION CARE MANAGEMENT (TCM) DISCHARGE TO POST ACUTE FACILITY POST ACUTE TRANSFER SUMMARY: -Pt discharged from [facility] on 08/14/2024. -Post Acute Facility Admitted to [facility] -Admitted for: Fall at home Office PCC will follow at discharge. Pau Rojas RN August 15, 2024 [facility] 08-15-2024 History of Presen t illness Narrative TRANSITION CARE MANAGEMENT (TCM) DISCHARGE TO POST ACUTE FACILITY POST ACUTE TRANSFER SUMMARY: -Pt discharged from [facility] on 08/14/2024. -Post Acute Facility Admitted to [facility] -Admitted for: Fall at home Office PCC will follow at discharge. Pau Rojas RN August 15, 2024 documented in this encounter [facility] 08-15-2024 Note Patient Outreach (AG ACM) HELEN LIEBERMAN ([id number]) 1935 F Date Time Provider Department 08/15/24 PAU ROJAS [facility] During your visit today, we recorded the following information about you: Pau Rojas RN 08/15/2024 7:43 AM Addendum TRANSITION CARE MANAGEMENT (TCM) DISCHARGE TO POST ACUTE FACILITY POST ACUTE TRANSFER SUMMARY: -Pt discharged from [facility] on 08/14/2024. -Post Acute Facility Admitted to [facility] -Admitted for: Fall at home Office PCC [...] for Visit: Transition Of Care [4074] Cmt: [facility] Discharge to SNF Prescriptions as of 08/15/2024 [...] Encounter Status:Closed by PAU ROJAS on 08/15/24 [facility] 08-14-2024 Note HNO ID: [id number] Author: NEENA SHARP RN Service: Care Management Author Type: Registered Nurse Type: Care Mgt Progress Note Filed: 08/14/2024 08:40 Note Text: CARE MANAGEMENT DISCHARGE NOTE SERVICE DATE: August 14, 2024 SERVICE TIME: 8:37 AM Admission Date: 08/09/2024 LOS: 5 days Discharge Arrangement Discharge Arrangement: [facility] Facility Was an expedited discharge program used?: No Provider Name: Melony Castaneda Caregiver Assessment Caregiver is ready, willing and able to meet the patient's needs as recommended by the inter-professional team: Yes Name of Caregiver: Melony Castaneda Transportation Arrangements Transportation Arrangements: Ambulance Transportation Agency and Phone #:: [facility] [phone] Date of Trip: 08/14/24 Time of Trip: 1100 Type of Service: BLS Non-emergency Is Patient Medicaid Pending?: No Was transportation financial coverage discussed with family?: Patient Globe Cleaner Location: [place] Destination: [facility] Financial Care Management Responsibility: None Handoff Communication: Handoff to: Primary Care Physician Primary Care Physician Name/Phone: Tanya Lzoano, BRAULIO.[facility] [place]/[phone] Discharge order is written. Melony Castaneda has [...] 14, 2024 TIME: 8:37 AM CONTACT #: [phone] [facility] 08-14-2024 Note HNO ID: [id number] Author: NEENA SHARP RN Service: Care Management [...] 14, 2024 TIME: 7:54 AM PAGER/CONTACT #: [phone] [facility] 08-13-2024 Note HNO ID: [id number] Author: KATHRYN LEARY MD Service: Hospital Medicine [...] Continue other current management. Kathryn Leary MD [facility] 08-13-2024 Note HNO ID: [id number] Author: EVANGELISTA SOMMERS MD Service: Hospital Medicine Author Type: Physician Type: Progress Notes Filed: 08/14/2024 09:36 Note Text: DEPARTMENT OF HOSPITAL MEDICINE PROGRESS NOTE SERVICE DATE: 08/14/2024 SERVICE TIME: 7:20 AM Hospital Medicine/Primary Attending: Evangelista Sommers MD NIGHT AND WEEKEND COVERAGE: [place] [employer]: Nights: [phone], please page [place] Hospitalist Night coverage pager [phone]. Probable discharge: Choices and precertification Disposition: longterm facility in [facility] Consultants: Dr. 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 OBJECTIVE MRI 08/10/2024 IMPRESSION: [...] hematoma. Ortho evaluat (more content not included)... [facility] 08-13-2024 Note HNO ID: [id number] Author: JW CHENG ? Service: Care Management Author Type: ? Type: Care Mgt Progress Note Filed: 08/13/2024 16:37 Note Text: [facility] ([facility]) PRECERT NOTE THE [facility] MEDICARE ADVANTAGE PPO approved [facility] Facility for [facility]. Precert approved through 08/20/24. For any additional questions regarding approvals, transport or care management needs, please contact the CM assigned to this patient in the Treatment Team. SIGNATURE: Jw Cheng DATE: August 13, 2024 TIME: 4:36 PM [facility] 08-13-2024 Note HNO ID: [id number] Author: EVANGELISTA SOMMERS MD Service: Care Management [...] 13, 2024 TIME: 3:35 PM PAGER/CONTACT #: [phone] [facility] 08-13-2024 Note HNO ID: [id number] Author: NEENA SHARP RN Service: Care Management Author Type: Registered Nurse Type: Care Mgt Progress Note Filed: 08/13/2024 15:32 Note Text: CARE MANAGEMENT PROGRESS NOTE SERVICE DATE: 08/13/2024 SERVICE TIME: 9:11 AM LOS: 4 days Needs Prior to Discharge: Accepting Facility;Facility or Agency Choices;OT/PT Evaluation;Precertification [place] of Choice Given: Yes Level of Care Discussed: [facility] Facility Financial Disclosure Provided: Yes Provider List: [facility] Facility Provider list within the patient's requested geographic area shared with the patient/family: Yes within: 15 miles of zip code: [address] Quality and resource use metrics shared with the patient that are relevant to the patient's goals of care and treatment preferences:: Yes Metrics: Skin Integrity;Functional Status;Incidence of Major Falls EMR reviewed. Physical Therapy is now recommending SNF. Updated Occupational Therapy note is pending. TASNEEM GREEN met with the patient at bedside to discuss discharge planning needs. SNF referrals sent to [facility] and [facility] per patient preference. CM assigned will continue to follow. 1430-[facility] can accept and is the patient's facility of choice. Awaiting updated OT note to begin pre-cert. 1530-[facility] tasked to begin pre-cert for Melony Castaneda. SIGNATURE: Neena Sharp RN PATIENT NAME: Helen Lieberman DATE: August 13, 2024 TIME: 9:11 AM PAGER/CONTACT #: [phone] [facility] 08-13-2024 Telephone encounter Note Images from the original note were not included. Date/Time: 08/13/2024 8:44 AM Spoke with Helen @ phone #: [phone] - Preferred # for contact: [phone] Have you received help from a home care company in the last 60 days? no Are you agreeable to C services? yes What address will we be seeing you at? [address] [place] [address] Do you have any upcoming appointments or things we need to schedule around? no Do you have a teachable CG or can you manage your care independently? Have you received the flu shot? no If so, when and where? no [facility] Work Phone: 08-13-2024 Miscellaneous Notes Images from the original note were not included. Date/Time: 08/13/2024 8:44 AM Spoke with Helen @ phone #: [phone] - Preferred # for contact: [phone] Have you received help from a home care company in the last 60 days? no Are you agreeable to [facility] services? yes What address will we be seeing you at? [address] [place] [address] Do you have any upcoming appointments or things we need to schedule around? no Do you have a teachable CG or can you manage your care independently? Have you received the flu shot? no If so, when and where? no documented in this encounter [facility] 08-12-2024 Note HNO ID: [id number] Author: EVANGELISTA SOMMERS MD Service: Hospital Medicine Author Type: Physician Type: Progress Notes Filed: 08/12/2024 12:24 Note Text: DEPARTMENT OF HOSPITAL MEDICINE PROGRESS NOTE SERVICE DATE: 08/12/2024 SERVICE TIME: 11:38 AM Hospital Medicine/Primary Attending: Evangelista Sommers MD NIGHT AND WEEKEND COVERAGE: [place] [employer]: Nights: [phone], please page [place] Hospitalist Night coverage pager [phone]. Probable discharge: Choices and precertification Disposition: longterm facility in [facility] Consultants: Dr. Alvarez for orthopedics Dr. Gore [...] assistance to get out of bed needs senior care choices and precertification. OBJECTIVE MRI 08/10/2024 IMPRESSION: [...] physical therapy confirmed this. She will need senior care facility. The hyponatremia is due to low solute intake and high water intake diet. Dr. Olmos added urea tablets to be taken when her sodium is under 130. Beta-doug dose was decreased as i (more content not included)... [facility] 08-11-2024 Note HNO ID: [id number] Author: EVANGELISTA SOMMERS MD Service: Hospital Medicine Author Type: Physician Type: Progress Notes Filed: 08/11/2024 12:57 Note Text: DEPARTMENT OF HOSPITAL MEDICINE PROGRESS NOTE SERVICE DATE: 08/11/2024 SERVICE TIME: 11:19 AM Hospital Medicine/Primary Attending: Evangelista Sommers MD NIGHT AND WEEKEND COVERAGE: [place] [employer]: Nights: [phone], please page [place] Hospitalist Night coverage pager [phone]. Probable discharge: Disposition: Consultants: Dr. Alvarez for [...] No jugulovenous distention (more content not included)... [facility] [facility] 08-10-2024 Telephone encounter Note Tanya Lozano, BRAULIO.PHOTOENGRAVING SUPERVISOR Please advise if you are agreeable to [...] care clinicians may also obtain [facility] from [facility] Prov[facility] Thank you and we would be happy to answer any questions. Monika Curry LPN 08/10/2024 4:20 PM [facility] Work Phone: 08-10-2024 Miscellaneous Notes Tanya Lozano, BRAULIO.PHOTOENGRAVING SUPERVISOR Please advise if you are agreeable to [...] care clinicians may also obtain orders from [facility] Virtualist Providers Thank you and we would be happy to answer any questions. Monika Curry LPN 08/10/2024 4:20 PM documented in this encounter [facility] 08-10-2024 Note HNO ID: [id number] Author: NEENA SHARP RN Service: Care Management Author Type: Registered Nurse Type: Care Mgt Progress Note Filed: 08/10/2024 16:01 Note Text: CARE MANAGEMENT PROGRESS NOTE SERVICE DATE: 08/10/2024 SERVICE TIME: 2:56 PM LOS: 1 day Needs Prior to Discharge: Home Care Order;OT/PT Evaluation;Other: See Comment (Medical Clearance) [place] of Choice Given: Yes Reason Not Given: Unable to complete with this assessment - revisit Level of Care Discussed: Home Care Financial Disclosure Provided: Yes Provider List: Home Care Provider list within the patient's requested geographic area shared with the patient/family: Yes of zip code: [address] Quality and resource use metrics shared with [...] sent. CM assigned will continue to follow. [address] [place] [address] Home Care can accept. SIGNATURE: Neena Sharp RN PATIENT NAME: Helen Lieberman DATE: August 10, 2024 TIME: 2:56 PM PAGER/CONTACT #: [phone] [facility] 08-10-2024 Note HNO ID: [id number] Author: BINDU GAMA MD Service: Hospital Medicine Author Type: Physician Type: Progress Notes Filed: 08/10/2024 14:41 Note Text: HOSPITAL MEDICINE PROGRESS NOTE Name: Helen Lieberman SERVICE DATE: 08/10/2024 SERVICE TIME: 2:33 PM LOCATION / ROOM: [id number]/HK-[id number] Hospital Medicine/Primary Attending: Bindu Gama MD, NIGHT AND WEEKEND COVERAGE: [place] COVERAGE: Days: [phone], please page attending physician. Nights: [phone], please page [place] [facility] Night coverage pager [phone]. ASSESSMENT AND PLAN Active Hospital Problems Diagnosis [...] left hamstring musculature extending below the included [id number] suggesting hematoma from strain. Unclear tear of [...] Gait normal. Refle (more content not included)... [facility] 08-10-2024 Note HNO ID: [id number] Author: NEENA SHARP RN Service: Care Management Author Type: Registered Nurse Type: Care Mgt Initial Assessment Filed: 08/10/2024 11:59 Note Text: CARE MANAGEMENT: ASSESSMENT AND DISCHARGE PLAN SERVICE DATE: August 10, 2024 SERVICE TIME: 11:46 AM PCP: Tanya Lozano APRN.CNP Primary Contact: Extended Emergency Contact Information Primary Emergency Contact: Earl Lieberman Mobile Relation: Son Admission Status: Inpatient Insurance Provider: [facility] MEDICARE ADVANTAGE PPO Discharge Planning requested by: Per Department Practice Potential Transition Plans Home;Home Care;Home OT/PT;Fdc Facility/Intermediate Care Facility;To Be Determined Advance Directives Current Advance Directive: Health Care Power of Direct Mail Manager In Chart: No Current Living Arrangements and [...] home, General wellness, Less pain, Better mobility Lawrence of Choice Explained: [place] of Choice Given: No Reason Not Given: Unable to complete with this assessment - revisit Are you interested in bedside delivery of your medications? No, preferred community Pharmacy is [facility]. 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 Her grandson lives with her. The patient denies use of DME at baseline. States she still drives. PT and OT evals are pending. CM assigned will continue to follow. SIGNATURE: Neena Sharp RN PATIENT NAME: Helen Lieberman DATE: August 10, 2024 TIME: 11:46 AM CONTACT #: [phone] [facility] 08-09-2024 Note HNO ID: [id number] Author: LIV LYNN RT(R) Service: ? Author [...] PATIENT PRESENTS WITH AN IMPLANTABLE OR ATTACHED DRYWALL SPRAYER: No RADIOLOGY DEPARTMENT: General X-ray: Exam(s) Completed: Chest X-Ray Pelvis X-Ray: Pelvis with Hip Left Lower Extremity X-Ray(s): Femur, Left PERIPHERAL IV DATA: Not applicable SIGNED BY: RT Mari(R) August 09, 2024 5:38 PM [facility] 07-18-2024 Note HNO ID: [id number] Author: CORRINE BIRMINGHAM LPN Service: ? Author [...] and verbalized an understanding. Corrine Birmingham LPN [facility] 07-18-2024 History of Presen t illness Narrative [...] Corrine Birmingham LPN documented in this encounter [facility] 06-18-2024 History of Presen t illness Narrative Pt in office for INR check. INR today 06/18/2024 2.4. Last INR 1.9 on April 23, 2024. Bp today was 138/78 and recheck 136/78. Pt is currently taking 2 mg on Sundays and 3 mg on all other days. Per Tanya Lozano PHOTOENGRAVING SUPERVISOR continue taking warfarin 2 mg on Sundays and 3 mg all other days. Recheck INR in 1 months. Pt aware and verbalized an understanding. Corrine Birmingham LPN. documented in this encounter [facility] 06-13-2024 Telephone encounter Note Patient dropped off a statement of Physician form that needs to be filled out by Tanya Lozano. Patient will pickup this completed form when she comes in for a nurse visit on 06/18/24. Form placed in [employer] folder in front office. Kayla Zapien [facility] 06-13-2024 Miscellaneous Notes Patient dropped off a statement of Physician form that needs to be filled out by Tanya Lozano. Patient will pickup this completed form when she comes in for a nurse visit on 06/18/24. Form placed in [employer] folder in front office. Kayla Zapien documented in this encounter [facility] 05-30-2024 Telephone encounter Note Left message on patients voicemail with all information. Carlos Gonzáles MA [facility] 05-30-2024 Miscellaneous Notes Left message on patients voicemail with all information. Carlos Gonzáles MA ----- Message from Tanya Lozano APRN.PHOTOENGRAVING SUPERVISOR sent at 05/28/2024 9:02 AM EDT ----- INR at target, recheck one month, continue current dose documented in this encounter [facility] 05-30-2024 Telephone encounter Note ----- Message from Tanya Lozano APRN.PHOTOENGRAVING SUPERVISOR sent at 05/28/2024 9:02 AM EDT ----- INR at target, recheck one month, continue current dose [facility] 05-07-2024 History of Presen t illness Narrative Pt here for her INR pts Previous INR 1.9 Pts current dose 2 mg Tuesday 3 mg the rest of the week Pts INR today 2.3 Instructed pt to continue current dose recheck in 1 month Jennifer Guillaume MA documented in this encounter [facility] 04-23-2024 History of Presen t illness Narrative Pt here for her INR pts Previous INR 1.9 Pts current dose 2 mg Sun,Tu, 3 mg the rest of the week Pts INR today 1.9 Per CN instructions pt to take 2 mg Sun 3 mg the rest of the week recheck on 04/06/24 Jennifer Guillaume MA documented in this encounter [facility] 04-09-2024 Telephone encounter Note Patient requesting refills as follows: Last Office Visit 10/06/23 NOV none. Last Refill N/A. Requested Prescriptions Pending Prescriptions Disp Refills carvedilol (COREG) 12.5 mg tablet Sig: Take 2 tablets by mouth two times a day. TAKE WITH FOOD. Please review and advise. Nicole Foreman MA [facility] 04-09-2024 Miscellaneous Notes Patient requesting refills as follows: Last Office Visit 10/06/23 NOV none. Last Refill N/A. Requested Prescriptions Pending Prescriptions Disp Refills carvedilol (COREG) 12.5 mg tablet Sig: Take 2 tablets by mouth two times a day. TAKE WITH FOOD. Please review and advise. Nicole Foreman MA documented in this encounter [facility] 03-26-2024 History of Presen t illness Narrative Pt here for her INR pts Previous INR 1.9 Pts current 3 mg , ,Sat 2 mg the rest of the week Pts INR today 1.9 Per CN 3mg Mon,Tue,Tue,Sat 2 mg the rest of the week recheck in 3 weeks Jennifer Guillaume MA documented in this encounter [facility] 03-06-2024 Miscellaneous Notes Last OV 10/06/23 Labs [...] Jennifer Guillaume MA documented in this encounter [facility] 03-06-2024 Telephone encounter Note Last OV 10/06/23 [...] Please review and advise. Jennifer Guillaume MA [facility] 02-06-2024 History of Presen t illness Narrative Pt here for her INR pts Previous INR 2.0 Pts current dose 3 mg Tu,Th,Sat 2 mg the rest of the week Pts INR today 2.1 Pt to continue her current dose and recheck in 1 month Jennifer Guillaume MA documented in this encounter [facility] 01-20-2024 Telephone encounter Note Last OV 10/06/23 [...] ON AN EMPTY STOMACH Jennifer Guillaume MA [facility] 01-20-2024 Miscellaneous Notes Last OV 10/06/23 Apt [...] Jennifer Guillaume MA documented in this encounter [facility] 01-11-2024 Miscellaneous Notes Called pt left VM with results and instructions for her coumadin Jennifer Guillaume MA ----- Message from Tanya Lozano APRN.PHOTOENGRAVING SUPERVISOR sent at 01/11/2024 7:21 AM EDT ----- Wnr- continue current dose recheck 1 month documented in this encounter [facility] 01-10-2024 Miscellaneous Notes Called pt can you please sign standing order she will get her INR checked at [facility] she is there with her documented in this encounter [facility] 12-07-2023 History of Presen t illness Narrative Pt here for her INR pts Previous INR 1.9 Pts current dose 3 mg Thurs,Tues 2 mg the rest of the week Pts INR today 1.9 Per CN pt to take 3 mg Tues,Thurs,Sat 2 mg the rest of the week Jennifer Guillaume MA documented in this encounter [facility] 11-30-2023 History of Presen t illness Narrative Patient identified by name and . Patient came in for nurse visit for INR. Last INR was 2.1 on . today patients INR was 1.9. per Dee Gonzalez. Patient is to continue same dose and repeat in one week. Carlos Gonzáles MA documented in this encounter [facility] 11-01-2023 History of Presen t illness Narrative Pt here for her INR pts Previous INR 2.5 Pts current dose 3 mg Tues and Thurs Pts INR today 2.1 Instructed pt to continue her current dose recheck in 1 month Jennifer Guillaume MA documented in this encounter [facility] 09-12-2023 Miscellaneous Notes Last OV 36 Apt 10/06/23 Labs 08/25/23 Pharmacy calls in requesting the following refill(s): Requested Prescriptions Pending Prescriptions Disp Refills warfarin (COUMADIN) 3 mg tablet [Pharmacy Med Name: warfarin 3 mg tablet] 90 tablet 3 Sig: take 1 tablet by mouth daily as directed Jennifer Guillaume MA documented in this encounter [facility] 09-07-2023 History of Past i llness Narrative Problem Noted Date Diagnosed Date Resolved Date Syncope 09/07/2023 09/08/2023 Syncope and collapse 09/07/2023 023 documented as of this encounter (statuses as of 09/13/2023) [facility]12-13-20[facility] History of Past illness Narrative* Problem Noted Date Diagnosed Date Resolved Date Syncope 09/07/2023 09/08/2023 Syncope and collapse 09/07/202309/08/2 023 documented as of this encounter (statuses as of 11/01/2023) [facility]12[facility] History of Past illness Narrative* Problem Noted Date Diagnosed Date Resolved Date Syncope 09/07/2023 09/08/2023 Syncope and collapse 09/07/202309/08/2 023 documented as of this encounter (statuses as of 11/30/2023) [facility]12-13[facility] History of Past illness Narrative* Problem Noted Date Diagnosed Date Resolved Date Syncope 09/07/2023 09/08/2023 Syncope and collapse 09/07/202309/08/2 023 documented as of this encounter (statuses as of 12/07/2023) [facility] History of Past illness Narrative* Problem Noted Date Diagnosed Date Resolved Date Syncope 09/07/2023 09/08/2023 Syncope and collapse 09/07/2023 023 documented as of this encounter (statuses as of 01/11/2024) [facility] History of Past illness Narrative* Problem Noted Date Diagnosed Date Resolved Date Syncope 09/07/2023 09/08/2023 Syncope and collapse 09/07/2023 023 documented as of this encounter (statuses as of 01/12/2024) [facility]11-30-[facility] History of Present illness Narrative* Charisse Lange [...] was 2.4. Per conversation with Tanya Lozano PHOTOENGRAVING SUPERVISOR advised patient to continue current dose and [...] understanding Charisse Lange MA [facility] Miscellaneous Notes* Telephone Encounter - Jennifer Guillaume MA - 08/10/2023 2:29 PM EST Called pt let her know the results Jennifer Guillaume MA * Telephone Encounter - Jenniefr Guillaume MA - 08/10/2023 2:28 PM EST ----- Message from Tanya Lozano APRN.PHOTOENGRAVING SUPERVISOR sent at 08/09/2023 4:20 PM EST ----- Normal mammogram IMPRESSION IMPRESSION: NEGATIVE There is no mammographic evidence of malignancy. A 1 year screening mammogram is recommended. [facility]23 Miscellaneous Notes* Letter - Coordinator, Mammography - 08/09/2023 4:15 PM EST [address] [address] August 10, 2023 PID: [id number] Helen Lieberman [address] [place] [address] Dear Ms. Lieberman, We are pleased to [...] report will be kept on file at [facility] as part of your permanent medical record and are available for your continuing care. Thank you for allowing us to help in meeting your health care needs. Sincerely, Dr. Moore Interpreting Radiologist [facility] (Normal over 40) documented in this encounterMer[facility]11-14-2023 Miscellaneous Notes* Telephone Encounter - Jennifer Guillaume [...] AM EST ----- Message from Tanya Lozano APRN.PHOTOENGRAVING SUPERVISOR sent at 08/08/2023 1:11 PM EST ----- [...] on how to take. documented in [facility] encounter[facility]23 History of Present illness Narrative* Rebecca Chapin [...] 03, 2023 10:59 AM documented in [facility] History of Present illness Narrative* Jennifer Guillaume MA - 08/01/2023 6:38 AM EST Pt here for her INR pts Previous INR 2.5 Pts current Dose 2 mg Tues,Thurs 3 mg the rest of the week Pts INR today 2.3 Pt to continue her current dose and recheck in 1 month Jennifer Guillaume MA documented [facility] encounter[facility]-2023 Instructions* Patient Instructions* Tanya Lozano APRN.PHOTOENGRAVING SUPERVISOR - 07/19/2023 8:50 AM EDT Screening schedule [...] review all the medicines you take, even efko-mro-qatfudz medicines. As you get older, the way [...] your usual activities immediately. documented in this encounterMer[facility]10-[facility]23 History of Present illness Narrative* Tanya Lozano [...] precautions in home/vehicle She is working on [employer] shower safety bar. She wears seat belt. Does not have throw rugs, she had night lights in home. Smoke, vape, chews tobacco denies Difficulty hearing Good Difficulty seeing Wears glasses Current Providers Specialists: I have reviewed specialist-related care of the patient in the medical record. Current care team: Patient Care Team: Tanya Lozano APRN.PHOTOENGRAVING SUPERVISOR as PCP - General (Internal Medicine) Tomeka [...] at this time. - Patient was counseled [id number] by myself (the billing provider) for the following immunizations and vaccine components, including side effects: Influenza and Pneumococcal . Pt declines - Follow up for annual exam in one year Tanya Lozano APRN.PHOTOENGRAVING SUPERVISOR documented in this encounterMer[facility]10-19-2023 Miscellaneous Notes* Telephone Encounter - Jennifer Guillaume MA - 07/14/2023 4:22 PM EDT Patient phones requesting refills as follows: Requested Prescriptions Pending Prescriptions Disp Refills warfarin (COUMADIN) 2 mg tablet 90 tablet 1 Sig: Take 1 tablet by mouth daily as directed. Please review and advise. Jennifer Guillaume MA documented in this encounterMer[facility]10-18-2023 History of Present illness Narrative* Jennifer Guillaume MA - 07/13/2023 12:17 PM EDT Pt here for her INR pts Previous INR 3.8 Pts current Pts INR today 2.5 Per CN pt to take 2 mg Tues,Thurs 3 mg the rest of the week Jennifer Guillaume MA documented in this encounterMer[facility]10-16-2023 History of Present illness Narrative* Jennifer Guillaume [...] instructions Jennifer Guillaume MA documented in this encounterMer[facility]09-20-2023 History of Present illness Narrative* Jennifer Guillaume MA - 06/15/2023 8:21 AM EDT Pt here for her INR pts Previous INR 3.4 Pts current dose she held on 06/08/23 3 mg the rest of the week Pts INR today 2.5 Per CN pt to continue her current dose recheck in 2 weeks Jennifer Guillaume MA documented in this encounterMer[facility]09-13-2023 History of Present illness Narrative* Jennifer Guillaume MA - 06/08/2023 1:24 PM EDT Pt here for her INR pts Previous INR 2.9 Pts current dose 3mg daily 4mg Pts INR today 3.4 Per CN pt to hold coumadin today and take 3 mg daily and recheck in 1 week Jennifer Guillaume MA documented in this encounterMer[facility]08-10-2023 History of Present illness Narrative* Jennifer Guillaume MA - 05/05/2023 8:20 AM EDT Pt here for his INR pts Previous INR 2.3 Pts current dose 4 mg Thurs 3 mg the rest of the week Pts INR today 2.9 Instructed pt to continue current dose and recheck in 1 month Jennifer Guillaume MA documented in this encounterMer[facility]05-10-2023 History of Present illness Narrative* Jennifer Guillaume MA - 02/02/2023 8:36 AM EDT Pt here for her INR pts Previous INR 2.4 Pts current 4 mg Thurs 3 mg the rest of the week Pts INR today 2.8 Instructed pt to continue her current dose and recheck in 1 month Jennifer Guillaume MA documented in this encounterMercy [facility]05-01-2023 Miscellaneous Notes* Telephone Encounter - Jennifer Guillaume [...] PM EDT ----- Message from Tanya Lozano APRN.PHOTOENGRAVING SUPERVISOR sent at 01/19/2023 6:39 AM EDT ----- Vit d wnl * Telephone Encounter - Jennifer Guillaume MA - 01/19/2023 3:26 PM EDT ----- Message from Tanya Lozano APRN.PHOTOENGRAVING SUPERVISOR sent at 01/17/2023 1:24 PM EDT ----- Cmp- sugar stable Lipids are all elevated especially her bad chol LDL. I would recommend a statin to lower her CV risk. Tsh wnl documented in this encounterMercy [facility]04-24-2023 History of Present illness Narrative* Charisse Lange MA - 01/17/2023 11:43 AM EDT ED Follow Up: Patient discharged from [facility] ED on 01/14/23. 1. How are you [...] you able to contact the office or trains service conductor provider prior to your ED visit? Not applicable 5. Is there anything else I can do for you today? No Charisse Lange MA documented in this encounterMercy [facility]04-20-2023 History of Present illness Narrative* Tanya Lozano, WIRE BENDER.PHOTOENGRAVING SUPERVISOR - 01/13/2023 7:48 AM EDT SUBJECTIVE: Helen [...] most of the time. She is taking [id number] mg daily and coreg 12.5 mg twice daily. Last 3 Encounter BP Readings: Date: BP: 01/13/2023 140/60 01/06/2023 148/60 01/03/2023 170/70 Hyponatremia: She is seeing pharmacy clinical specialist Dr Ruiz for management for this. Afib: [...] placement on 08/07/21 for biliary obstruction at [facility]. Reports she has had 3 ERCPs. First [...] function is intact. Coordination: Coordination is intact. Vsjade-Pifp-Racuig Test normal. Rapid alternating movements normal. Psychiatric: [...] Abs Lymph 1.00 - 4.00 k/uL 1.48 Bland% % 9.5 Abs Bland <0.87 k/uL 0.57 Eosin% % 2.3 Abs [...] Z13.220 - LIPID PANEL BASIC Tanya Lozano APRN.PHOTOENGRAVING SUPERVISOR documented in this encounterMercy [facility]04-17-2023 Miscellaneous Notes* Telephone Encounter - Jennifer Guillaume MA - 01/10/2023 10:27 AM EDT Called pt to f/u with her she has not had anymore episodes. She feels it might be related to the Tylenol Sinus medication. The times it happened was an hour after she took the Tylenol. Pt dose have the CT scheduled. Jennifer Guillaume MA documented in this encounterMercy [facility]04-10-2023 History of Present illness Narrative* Jennifer Guillaume MA - 01/03/2023 2:12 PM EDT Pt here for her INR pts Previous INR 3.0 Pts current dose 4 mg Thurs 3 mg the rest of week Pts INR today 2.4 Pt to continue her current dose and recheck in 1 month Jennifer Guillaume MA documented in this encounterMercy [facility]03-16-2023 Miscellaneous Notes* Telephone Encounter - Jennifer Guillaume [...] advise. Jennifer Guillaume MA documented in this encounterMercy [facility]03-09-2023 History of Present illness Narrative* Charisse Lange [...] month. Charisse Lange MA documented in this encounterMercy [facility]02-22-2023 Miscellaneous Notes* Telephone Encounter - Jennifer Guillaume [...] advise. Jennifer Guillaume MA documented in this encounterMercy [facility]02-09-2023 History of Present illness Narrative* Jennifer Guillaume MA - 11/04/2022 1:35 PM EST Pt here for her INR pts Previous INR 2.6 Pts current dose 4 mg Thurs 3 mg the rest of week Pts INR today 2.3 Instructed pt to continue current dose recheck in 1 month Jennifer Guillaume MA documented in this encounterMercy [facility]12-20-2022 History of Present illness Narrative* Jennifer Guillaume [...] weeks Jennifer Guillaume MA documented in this [facility]11-17-2022 Miscellaneous Notes* Telephone Encounter - Jennifer Guillaume [...] breakfast. 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 Afib: [...] placement on 08/07/21 for biliary obstruction at [facility]. She reports she has an appt with [...] Abs Lymph 1.00 - 4.00 k/uL 1.48 Bland% % 11.8 Abs Bland <0.87 k/uL 0.71 Eosin% % 3.2 Abs [...] - chronic controlled with protonix Tanya Lozano APRN.PHOTOENGRAVING SUPERVISOR documented in this encounterMercy [facility]09-21-2022 Miscellaneous Notes* Telephone Encounter - Jennifer Guillaume MA - 06/16/2022 3:40 PM EDT Last OV 01/13/22 Apt 07/15/22 INR 06/03/22 Pharmacy calls in requesting the following refill(s): Requested Prescriptions Pending Prescriptions Disp Refills warfarin (COUMADIN) 3 mg tablet [Pharmacy Med Name: warfarin 3 mg tablet] 90 tablet 3 Sig: TAKE 1 TABLET BY MOUTH DAILY DIRECTED Jennifer Guillaume MA documented in this encounterMercy [facility]09-08-2022 History of Present illness Narrative* Jennifer Guillaume [...] time Jennifer Guillaume MA documented in this encounterMercy Health [facility]08-25-2022 History of Present illness Narrative* Charisse Lange [...] ER. Charisse Lange MA documented in this encounter[facility] History of Present illness Narrative* Jennifer Guillaume MA - 04/19/2022 9:15 AM EDT Pt here for her INR pts previous INR was 2.3 Pts current dose 4 mg Mon,Thurs 3 mg the rest of the week Pr to continue recheck in 1 month Jennifer Guillaume MA documented in this encounter[facility]06[facility] History of Present illness Narrative* Jennifer Guillaume MA - 03/18/2022 8:34 AM EDT Pt here for INR pts previous INR was 2.3 Pts current dose 4 mg Mon, Thurs 3 mg Sun,Tue,Tue,Fri Sat Pts INR today 2.3 Instructed pt to continue her current dose and recheck in 1 month Jennifer Guillaume MA documented in this encounter[facility]06-13-[facility] History of Present illness Narrative* Jennifer Guillaume [...] 10 min recheck was documented in this encounterMer[facility]06-09-2022 History of Present illness Narrative* Jennifer Guillaume MA - 03/04/2022 8:56 AM EDT Pt here for her INR today Pts previous INR 3.7 Pts dose hold tue and 3 mg Pts INR today 2.3 Per CN instructions pt to take 4 mg Tue, 3 mg the rest of the week pt needs to check in 2 weeks Jennifer Guillaume MA documented in this encounterMer[facility]06-06-[facility]22 History of Present illness Narrative* Tanya Lozano APRN.RUBIO - 03/01/2022 5:30 PM EDT Instruct her to keep checking her BP and bring BP Cuff in with her to check for accuracy She needs to follow up with pharmacy clinical specialist regarding her BP medication he prescribed for [...] BP Jennifer Guillaume MA documented in this encounterMer[facility]06-03-2022 Miscellaneous Notes* Telephone Encounter - Prisca Kemp - 02/26/2022 7:13 AM EDT Please note that the patient contacted the office for an appointment with Tanya Lozano CNP. She stated that her BP was very high. She was offered appointments available for all practitioners in the office today; however, they are all in the pm. She stated that she would just go to [facility] this morning. Prisca Kemp documented in this encounterMer[facility]05-31-[facility]22 History of Present illness Narrative* Nicole Foreman MA - 02/23/2022 8:23 AM EDT Patient is here to check their INR Last INR: 1.7 Current Dose: 4 mg T, W, and 3 mg TH, F, Sat, AND Sun. INR: 1.7 Per PCP take 4 mg everyday and recheck 03/01/22. Nicole Foreman MA documented in this encounterMer[facility]05-24-2022 History of Present illness Narrative* Jennifer Guillaume MA - 02/16/2022 2:11 PM EDT Called [...] 148/60 Jennifer Guillaume MA documented [facility] this [facility] Miscellaneous Notes* Telephone Encounter - Nicole Foreman MA - 01/14/2022 10:04 AM EDT Patient informed. Nicole Foreman MA * Telephone Encounter - Nicole Foreman MA - 01/14/2022 10:03 AM EDT ----- Message from Tanya Lozano APRN.PHOTOENGRAVING SUPERVISOR sent at 01/14/2022 7:02 AM EDT ----- T4 wnl * Telephone Encounter - Nicole Foreman MA - 01/14/2022 10:03 AM EDT ----- Message from Tanya Lozano APRN.PHOTOENGRAVING SUPERVISOR sent at 01/13/2022 12:32 PM EDT ----- CBC unremarkable documented in this [facility]04-20[facility] Instructions* Patient Instructions* Tanya Lozano APRN.CNP - [...] MG TABLET,EXTENDED RELEASE 24 HR Tanya Lozano APRN.PHOTOENGRAVING SUPERVISOR documented in this encounterMer[facility]04-20-2022 History of Present illness Narrative* Tanya Lozano APRN.[facility] [place] - 01/13/2022 9:37 AM EDT SUBJECTIVE: Helen [...] 170/62 12/17/2021 138/78 Hyponatremia: She is seeing pharmacy clinical specialist Dr Ruiz for management for this. Afib: [...] placement on 08/07/21 for biliary obstruction at [facility]. She reports she has an appt with [...] cramps. I will place referral to her pharmacy clinical specialist who she is seeing next week to [...] which included preparing to see the patient, xexj-[id number] patient care, completing clinical documentation, obtaining and/or reviewing separately obtained history, performing a medically appropriate examination, counseling and educating the pat ient/family/caregiver and ordering medications, tests, or procedures. documented in this encounterMer[facility]04-18-2022 Miscellaneous Notes* Telephone Encounter - Mackenzie Rdz [...] 11, 2022 2:37 PM documented in this encounterMer[facility]04-04-2022 History of Present illness Narrative* Jennifer Guillaume [...] weeks Jennifer Guillaume MA documented in this encounterMer[facility]03-28-2022 History of Present illness Narrative* Tanya Lozano [...] cramps Jennifer Guillaume MA documented in this encounterMer[facility]03-24-2022 Miscellaneous Notes* Telephone Encounter - Nicole Foreman [...] advise. Nicole Foreman MA documented in this encounterMer[facility]11-12-2021 NoteHNO ID: [id number] Author: Nara Hernandez APRN.HEALTH CARE SPECIALIST Service: Anesthesiology Author Type: Nurse Social Sciences Professor Type: Anesthesia Procedure Notes Filed: 08/07/2021 1:58 PM Note Text: ANESTHESIOLOGY PROCEDURE NOTE Airway General Information Procedure Start Time/Medication Administration: 08/07/2021 1:47 PM Patient location during procedure: OR Patient identity confirmed: arm band and patient Staffing Anesthesiologist: Flavio Eisenberg DO HEALTH CARE SPECIALIST: Nara Hernandez APRN.HEALTH CARE SPECIALIST Performed by: HEALTH CARE SPECIALIST Indications and Patient Condition Preoxygenated: yes [...] August 07, 2021 TIME: 1:57 PM CSN: [id number] Miscellaneous Notes* Telephone Encounter - Patricia Vazquez [...] Small hiatal hernia. SURGEON: Andreas Casillas M.D. BUS INSPECTOR: Roxana Rivers. SURGERY/PROCEDURE: Attempted endoscopic retrograde cholangiography. ANESTHESIA: General. INDICATIONS: The patient is an 85-year-old female, who was admitted to [facility] 2 months ago with a probable gallstone-induced [...] ERCP done yesterday by Dr. Casillas at [facility]. Could you find the report. Check CBCD, [...] EDT Referral from Dr. Lennie Casillas from [place]. Gallstone pancreatitis. Attempted ERCP in [place] was unsuccessful (couod not pass the scope [...] above. Patricia Vazquez MD documented in this encounterMer[facility]09-11-2021 NoteDischarge Summary Helen Lieberman : 1935 ADMIT [...] DISCHARGE MEDICATIONS: Helen Lieberman Home Medication Instructions CASTRO:[id number] Printed on:06/06/21 3732 Medication Information amLODIPine (NORVASC) 2.5 MG tablet [...] minutes SIGNED: LEONOR BURLESON MD 06/06/2021, 1:24 [facility] note* Diagnosis Gallstone pancreatitis- Primary Acute pancreatitis documented in this encounter [facility] note* Diagnosis Chronic anticoagulation- Primary Long-term (current) use of anticoagulants documented in this encounter [facility] note* Diagnosis Essential hypertension, benign- Primary documented in this encounter [facility] note* Diagnosis Essential hypertension, benign- Primary Paroxysmal atrial fibrillation (HCC) Atrial fibrillation Hypothyroidism, unspecified type Gastroesophageal reflux disease without esophagitis Esophageal reflux Vitamin D deficiency Unspecified vitamin D deficiency TIA (transient ischemic attack) Unspecified transient cerebral ischemia 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 (male)(female) documented in this encounter [facility] note* Diagnosis Paroxysmal atrial fibrillation (HCC)- Primary Atrial fibrillation documented in this encounter [facility] note* Diagnosis Atrial fibrillation, unspecified type (HCC)- Primary documented in this encounter [facility] note* Diagnosis Atrial fibrillation, unspecified type (HCC)- Primary documented in this encounter [facility] note* Diagnosis Atrial fibrillation, unspecified type (HCC)- Primary documented in this encounter [facility] note* Diagnosis Essential hypertension, benign- Primary documented in this encounter [facility] note* Diagnosis Paroxysmal atrial fibrillation (HCC)- Primary Atrial fibrillation documented in this encounter [facility] note* Diagnosis Paroxysmal atrial fibrillation (HCC)- Primary Atrial fibrillation documented in this encounter [facility] note* Diagnosis Paroxysmal atrial fibrillation (HCC) Atrial fibrillation documented in this encounter [facility] note* Diagnosis Essential hypertension, benign- Primary Paroxysmal atrial fibrillation (HCC) Atrial fibrillation Hypothyroidism, unspecified type Gastroesophageal reflux disease without esophagitis Esophageal reflux documented in this encounter [facility] note* Diagnosis Paroxysmal atrial fibrillation (HCC)- Primary Atrial fibrillation documented in this encounter [facility] note* Diagnosis 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 (male)(female) Gastroesophageal reflux disease without esophagitis Esophageal reflux Essential hypertension, benign Hypothyroidism, unspecified type documented in this encounter [facility] note* Diagnosis Atrial fibrillation, unspecified type (HCC)- Primary documented in this encounter [facility] note* Diagnosis 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 (male)(female) Gastroesophageal reflux disease without esophagitis Esophageal reflux Essential hypertension, benign Hypothyroidism, unspecified type Paroxysmal atrial fibrillation (HCC) Atrial fibrillation [facility] Diagnosis Paroxysmal atrial fibrillation (HCC)- Primary Atrial fibrillation documented in this encounter [facility] note* Diagnosis Gastroesophageal reflux disease without esophagitis Esophageal reflux [facility]* Diagnosis Essential hypertension, benign- Primary Paroxysmal atrial fibrillation (HCC) Atrial fibrillation TIA (transient ischemic attack) Unspecified transient cerebral ischemia Hypothyroidism, unspecified type Gastroesophageal reflux disease without esophagitis Esophageal reflux Vitamin D deficiency Unspecified vitamin D deficiency Screening for lipid disorders [facility]* Diagnosis Paroxysmal atrial fibrillation (HCC)- Primary Atrial fibrillation documented in this encounter [facility] note* Diagnosis Paroxysmal atrial fibrillation (HCC)- Primary Atrial fibrillation [facility]* Diagnosis Paroxysmal atrial fibrillation (HCC)- Primary Atrial fibrillation [facility]* Diagnosis Medicare annual wellness visit, subsequent- Primary Routine general medical examination at a health care facility Post-menopausal Asymptomatic postmenopausal status (age-related) (natural) [facility]* Diagnosis Paroxysmal atrial fibrillation (HCC)- Primary Atrial fibrillation documented in this encounter [facility] note* Diagnosis Post-menopausal Asymptomatic postmenopausal status (age-related) (natural) [facility]* Diagnosis Osteoporoses- Primary [facility]* Diagnosis Paroxysmal atrial fibrillation (HCC)- Primary Atrial fibrillation [facility]* Diagnosis Paroxysmal atrial fibrillation (HCC) Atrial fibrillation documented in this encounter [facility] note* Diagnosis Paroxysmal atrial fibrillation (HCC)- Primary Atrial fibrillation [facility]* Diagnosis Paroxysmal atrial fibrillation (HCC)- Primary Atrial fibrillation [facility]* Diagnosis Hypothyroidism, unspecified type [facility]* Diagnosis Hypothyroidism, unspecified type 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 (male)(female) Gastroesophageal reflux disease without esophagitis Esophageal reflux Essential hypertension, benign [facility]* Diagnosis 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 (male)(female) Gastroesophageal reflux disease without esophagitis Esophageal reflux Essential hypertension, benign documented in this encounter [facility] note* Diagnosis Paroxysmal atrial fibrillation (HCC)- Primary Atrial fibrillation documented in this encounter [facility] note* Diagnosis Essential hypertension, benign- Primary Fall at home, sequela Hamstring injury, left, initial encounter Hyponatremia Hyposmolality and/or hyponatremia Atrial fibrillation, unspecified type (HCC) documented in this encounter [facility] note* Diagnosis Paroxysmal atrial fibrillation (HCC)- Primary Atrial fibrillation documented in this encounter [facility] note* Diagnosis Gastroesophageal reflux disease without esophagitis Esophageal reflux Paroxysmal atrial fibrillation (HCC) Atrial fibrillation documented in this encounter [facility] note* Diagnosis Essential hypertension, benign- Primary Hypothyroidism, unspecified type Vitamin D deficiency Unspecified vitamin D deficiency Screening for lipid disorders documented in this encounter [facility] note* Diagnosis Essential hypertension, benign- Primary Scalp lesion Unspecified disorder of skin and subcutaneous tissue documented in this encounter [facility] note* Diagnosis Essential hypertension, benign- Primary Hypothyroidism, unspecified type Paroxysmal atrial fibrillation (HCC) Atrial fibrillation Hyponatremia Hyposmolality and/or hyponatremia Osteoporoses Post-menopausal Asymptomatic postmenopausal status (age-related) (natural) documented in this encounter [facility] note* Diagnosis Paroxysmal atrial fibrillation (HCC)- Primary Atrial fibrillation documented in this encounter [facility] note* Diagnosis Paroxysmal atrial fibrillation (HCC)- Primary Atrial fibrillation documented in this encounter [facility] note* Diagnosis Paroxysmal atrial fibrillation (HCC)- Primary Atrial fibrillation documented in this encounter [facility] note* Diagnosis Atrial fibrillation, unspecified type (HCC)- Primary documented in this encounter [facility] note* Diagnosis Epistaxis- Primary documented in this encounter [facility] Purpose Family History No Family History Records [...] Documents on File Type Date 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 ACP-Advance Directive ACP-Power of Direct Mail Manager Latest Code Status on File Code Status [...] Documents on File Type Date 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 Advance Directive(s) 07/29/2021 10:22 AM Documents on File Type Date 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 * Hypertension: General Info (Beninese) * Lightheadedness or Faintness (Beninese) documented in this encounter* Instructions* Yuliya Santillan [...] and prn Call dr. crews with problems [phone] documented in this encounter* Instructions* Kodak Salazar DO - 01/07/2021 Return if any problems or concerns. * Attachments The following attachments cannot be sent through Care Everywhere. * Nausea and Vomiting (Beninese) * Altered Mental Status (Beninese) * Abdominal Pain (Beninese) documented in this encounter Assessments Diagnosis Lightheaded [...] hypertension, benign Procedures CONSULT TO NEPHROLOGY OFFICE/OUTPATIENT [facility] 60-74 MINUTES Tanya Lozano APRN.PHOTOENGRAVING SUPERVISOR [address] [place] [address] Referral ID Status Reason Start Date Expiration Date Visits Requested Visits Authorized [id number] Pending Review PCP Requested Referral 01/13/2022 01/13/2023 1 1 Additional Source Comments INFORMATION SOURCE (unrecogn ized section and content) DATE CREATED AUTHOR 03/21/2018 [facility] DATE CREATED AUTHOR AUTHOR'S ORGANIZ ATION 06/19/2021 [facility] DATE CREATED AUTHOR AUTHOR'S ORGANIZ ATION 08/08/2021 [facility] DATE CREATED AUTHOR AUTHOR'S ORGANIZ ATION 08/13/2021 [facility] DATE CREATED AUTHOR AUTHOR'S ORGANIZ ATION 05/07/2024 [facility] DATE CREATED AUTHOR AUTHOR'S ORGANIZ ATION 01/24/2025 [facility] DATE CREATED AUTHOR AUTHOR'S ORGANIZ ATION 06/28/2025 [facility] DATE CREATED AUTHOR AUTHOR'S ORGANIZ ATION 06/29/2025 [facility] DATE CREATED AUTHOR AUTHOR'S ORGANIZ ATION 06/29/2025 [facility] Reason for Visit (unrecogniz ed section and content) Reason Comments Hypertension Dizziness Reason Comments Abdominal Pain sudden onset after e ating around 2pm, emesis x1 HEEL BREASTER Altered Mental Status new confusion Reason Comments [...] Reason Onset Date Comments Refill Request 09/05/2024 [facility] Consultant- Other 09/05/2024 Reason Onset Date Comments Transition [...] Onset Date Comments ED Follow Up 04/01/2025 [place] [address] Reason Comments Patient Question Reason [...] or prosecute any alcohol or drug abuse patient.[facility] HospitalIn the event this information is protected by the Federal Confidentiality of Alcohol and Drug Abuse Patient Records regulations: The Federal rules restrict any use of the information to criminally investigate or prosecute any alcohol or drug abuse patient.[facility] HospitalIn the event this information is protected by the Federal Confidentiality of Alcohol and Drug Abuse Patient Records regulations: The Federal rules restrict any use of the information to criminally investigate or prosecute any alcohol or drug abuse patient.[facility] HospitalIn the event this information is protected by the Federal Confidentiality of Alcohol and Drug Abuse Patient Records regulations: The Federal rules restrict any use of the information to criminally investigate or prosecute any alcohol or drug abuse patient.[facility] HospitalIn the event this information is protected by the Federal Confidentiality of Alcohol and Drug Abuse Patient Records regulations: The Federal rules restrict any use of the information to criminally investigate or prosecute any alcohol or drug abuse patient.[facility] HospitalIn the event this information is protected by the Federal Confidentiality of Alcohol and Drug Abuse Patient Records regulations: The Federal rules restrict any use of the information to criminally investigate or prosecute any alcohol or drug abuse patient.[facility] HospitalIn the event this information is protected by the Federal Confidentiality of Alcohol and Drug Abuse Patient Records regulations: The Federal rules restrict any use of the information to criminally investigate or prosecute any alcohol or drug abuse patient.[facility] HospitalIn the event this information is protected by the Federal Confidentiality of Alcohol and Drug Abuse Patient Records regulations: The Federal rules restrict any use of the information to criminally investigate or prosecute any alcohol or drug abuse patient.[facility] HospitalIn the event this information is protected by the Federal Confidentiality of Alcohol and Drug Abuse Patient Records regulations: The Federal rules restrict any use of the information to criminally investigate or prosecute any alcohol or drug abuse patient.[facility] HospitalIn the event this information is protected by the Federal Confidentiality of Alcohol and Drug Abuse Patient Records regulations: The Federal rules restrict any use of the information to criminally investigate or prosecute any alcohol or drug abuse patient.[facility] HospitalIn the event this information is protected by the Federal Confidentiality of Alcohol and Drug Abuse Patient Records regulations: The Federal rules restrict any use of the information to criminally investigate or prosecute any alcohol or drug abuse patient.[facility] HospitalIn the event this information is protected by the Federal Confidentiality of Alcohol and Drug Abuse Patient Records regulations: The Federal rules restrict any use of the information to criminally investigate or prosecute any alcohol or drug abuse patient.[facility] HospitalIn the event this information is protected by the Federal Confidentiality of Alcohol and Drug Abuse Patient Records regulations: The Federal rules restrict any use of the information to criminally investigate or prosecute any alcohol or drug abuse patient.[facility] HospitalIn the event this information is protected by the Federal Confidentiality of Alcohol and Drug Abuse Patient Records regulations: The Federal rules restrict any use of the information to criminally investigate or prosecute any alcohol or drug abuse patient.[facility] HospitalIn the event this information is protected by the Federal Confidentiality of Alcohol and Drug Abuse Patient Records regulations: The Federal rules restrict any use of the information to criminally investigate or prosecute any alcohol or drug abuse patient.[facility] HospitalIn the event this information is protected by the Federal Confidentiality of Alcohol and Drug Abuse Patient Records regulations: The Federal rules restrict any use of the information to criminally investigate or prosecute any alcohol or drug abuse patient.[facility] HospitalIn the event this information is protected by the Federal Confidentiality of Alcohol and Drug Abuse Patient Records regulations: The Federal rules restrict any use of the information to criminally investigate or prosecute any alcohol or drug abuse patient.[facility] HospitalIn the event this information is protected by the Federal Confidentiality of Alcohol and Drug Abuse Patient Records regulations: The Federal rules restrict any use of the information to criminally investigate or prosecute any alcohol or drug abuse patient.[facility] HospitalIn the event this information is protected by the Federal Confidentiality of Alcohol and Drug Abuse Patient Records regulations: The Federal rules restrict any use of the information to criminally investigate or prosecute any alcohol or drug abuse patient.[facility] HospitalIn the event this information is protected by the Federal Confidentiality of Alcohol and Drug Abuse Patient Records regulations: The Federal rules restrict any use of the information to criminally investigate or prosecute any alcohol or drug abuse patient.[facility] HospitalIn the event this information is protected by the Federal Confidentiality of Alcohol and Drug Abuse Patient Records regulations: The Federal rules restrict any use of the information to criminally investigate or prosecute any alcohol or drug abuse patient.[facility] HospitalIn the event this information is protected by the Federal Confidentiality of Alcohol and Drug Abuse Patient Records regulations: The Federal rules restrict any use of the information to criminally investigate or prosecute any alcohol or drug abuse patient.[facility] HospitalIn the event this information is protected by the Federal Confidentiality of Alcohol and Drug Abuse Patient Records regulations: The Federal rules restrict any use of the information to criminally investigate or prosecute any alcohol or drug abuse patient.[facility] HospitalIn the event this information is protected by the Federal Confidentiality of Alcohol and Drug Abuse Patient Records regulations: The Federal rules restrict any use of the information to criminally investigate or prosecute any alcohol or drug abuse patient.[facility] HospitalIn the event this information is protected by the Federal Confidentiality of Alcohol and Drug Abuse Patient Records regulations: The Federal rules restrict any use of the information to criminally investigate or prosecute any alcohol or drug abuse patient.[facility] HospitalIn the event this information is protected by the Federal Confidentiality of Alcohol and Drug Abuse Patient Records regulations: The Federal rules restrict any use of the information to criminally investigate or prosecute any alcohol or drug abuse patient.[facility] HospitalIn the event this information is protected by the Federal Confidentiality of Alcohol and Drug Abuse Patient Records regulations: The Federal rules restrict any use of the information to criminally investigate or prosecute any alcohol or drug abuse patient.[facility] HospitalIn the event this information is protected by the Federal Confidentiality of Alcohol and Drug Abuse Patient Records regulations: The Federal rules restrict any use of the information to criminally investigate or prosecute any alcohol or drug abuse patient.[facility] HospitalIn the event this information is protected by the Federal Confidentiality of Alcohol and Drug Abuse Patient Records regulations: The Federal rules restrict any use of the information to criminally investigate or prosecute any alcohol or drug abuse patient.[facility] HospitalIn the event this information is protected by the Federal Confidentiality of Alcohol and Drug Abuse Patient Records regulations: The Federal rules restrict any use of the information to criminally investigate or prosecute any alcohol or drug abuse patient.[facility] HospitalIn the event this information is protected by the Federal Confidentiality of Alcohol and Drug Abuse Patient Records regulations: The Federal rules restrict any use of the information to criminally investigate or prosecute any alcohol or drug abuse patient.[facility] HospitalIn the event this information is protected by the Federal Confidentiality of Alcohol and Drug Abuse Patient Records regulations: The Federal rules restrict any use of the information to criminally investigate or prosecute any alcohol or drug abuse patient.[facility] HospitalIn the event this information is protected by the Federal Confidentiality of Alcohol and Drug Abuse Patient Records regulations: The Federal rules restrict any use of the information to criminally investigate or prosecute any alcohol or drug abuse patient.[facility] HospitalIn the event this information is protected by the Federal Confidentiality of Alcohol and Drug Abuse Patient Records regulations: The Federal rules restrict any use of the information to criminally investigate or prosecute any alcohol or drug abuse patient.[facility] HospitalIn the event this information is protected by the Federal Confidentiality of Alcohol and Drug Abuse Patient Records regulations: The Federal rules restrict any use of the information to criminally investigate or prosecute any alcohol or drug abuse patient.[facility] HospitalIn the event this information is protected by the Federal Confidentiality of Alcohol and Drug Abuse Patient Records regulations: The Federal rules restrict any use of the information to criminally investigate or prosecute any alcohol or drug abuse patient.[facility] HospitalIn the event this information is protected by the Federal Confidentiality of Alcohol and Drug Abuse Patient Records regulations: The Federal rules restrict any use of the information to criminally investigate or prosecute any alcohol or drug abuse patient.[facility] HospitalIn the event this information is protected by the Federal Confidentiality of Alcohol and Drug Abuse Patient Records regulations: The Federal rules restrict any use of the information to criminally investigate or prosecute any alcohol or drug abuse patient.[facility] HospitalIn the event this information is protected by the Federal Confidentiality of Alcohol and Drug Abuse Patient Records regulations: The Federal rules restrict any use of the information to criminally investigate or prosecute any alcohol or drug abuse patient.[facility] HospitalIn the event this information is protected by the Federal Confidentiality of Alcohol and Drug Abuse Patient Records regulations: The Federal rules restrict any use of the information to criminally investigate or prosecute any alcohol or drug abuse patient.[facility] HospitalIn the event this information is protected by the Federal Confidentiality of Alcohol and Drug Abuse Patient Records regulations: The Federal rules restrict any use of the information to criminally investigate or prosecute any alcohol or drug abuse patient.[facility] HospitalIn the event this information is protected by the Federal Confidentiality of Alcohol and Drug Abuse Patient Records regulations: The Federal rules restrict any use of the information to criminally investigate or prosecute any alcohol or drug abuse patient.[facility] HospitalIn the event this information is protected by the Federal Confidentiality of Alcohol and Drug Abuse Patient Records regulations: The Federal rules restrict any use of the information to criminally investigate or prosecute any alcohol or drug abuse patient.[facility] HospitalIn the event this information is protected by the Federal Confidentiality of Alcohol and Drug Abuse Patient Records regulations: The Federal rules restrict any use of the information to criminally investigate or prosecute any alcohol or drug abuse patient.[facility] HospitalIn the event this information is protected by the Federal Confidentiality of Alcohol and Drug Abuse Patient Records regulations: The Federal rules restrict any use of the information to criminally investigate or prosecute any alcohol or drug abuse patient.[facility] HospitalIn the event this information is protected by the Federal Confidentiality of Alcohol and Drug Abuse Patient Records regulations: The Federal rules restrict any use of the information to criminally investigate or prosecute any alcohol or drug abuse patient.[facility] HospitalIn the event this information is protected by the Federal Confidentiality of Alcohol and Drug Abuse Patient Records regulations: The Federal rules restrict any use of the information to criminally investigate or prosecute any alcohol or drug abuse patient.[facility] HospitalIn the event this information is protected by the Federal Confidentiality of Alcohol and Drug Abuse Patient Records regulations: The Federal rules restrict any use of the information to criminally investigate or prosecute any alcohol or drug abuse patient.[facility] HospitalIn the event this information is protected by the Federal Confidentiality of Alcohol and Drug Abuse Patient Records regulations: The Federal rules restrict any use of the information to criminally investigate or prosecute any alcohol or drug abuse patient.[facility] HospitalIn the event this information is protected by the Federal Confidentiality of Alcohol and Drug Abuse Patient Records regulations: The Federal rules restrict any use of the information to criminally investigate or prosecute any alcohol or drug abuse patient.[facility] HospitalIn the event this information is protected by the Federal Confidentiality of Alcohol and Drug Abuse Patient Records regulations: The Federal rules restrict any use of the information to criminally investigate or prosecute any alcohol or drug abuse patient.[facility] HospitalIn the event this information is protected by the Federal Confidentiality of Alcohol and Drug Abuse Patient Records regulations: The Federal rules restrict any use of the information to criminally investigate or prosecute any alcohol or drug abuse patient.[facility] HospitalIn the event this information is protected by the Federal Confidentiality of Alcohol and Drug Abuse Patient Records regulations: The Federal rules restrict any use of the information to criminally investigate or prosecute any alcohol or drug abuse patient.[facility] HospitalIn the event this information is protected by the Federal Confidentiality of Alcohol and Drug Abuse Patient Records regulations: The Federal rules restrict any use of the information to criminally investigate or prosecute any alcohol or drug abuse patient.[facility] HospitalIn the event this information is protected by the Federal Confidentiality of Alcohol and Drug Abuse Patient Records regulations: The Federal rules restrict any use of the information to criminally investigate or prosecute any alcohol or drug abuse patient.[facility] HospitalIn the event this information is protected by the Federal Confidentiality of Alcohol and Drug Abuse Patient Records regulations: The Federal rules restrict any use of the information to criminally investigate or prosecute any alcohol or drug abuse patient.[facility] HospitalIn the event this information is protected by the Federal Confidentiality of Alcohol and Drug Abuse Patient Records regulations: The Federal rules restrict any use of the information to criminally investigate or prosecute any alcohol or drug abuse patient.[facility] HospitalIn the event this information is protected by the Federal Confidentiality of Alcohol and Drug Abuse Patient Records regulations: The Federal rules restrict any use of the information to criminally investigate or prosecute any alcohol or drug abuse patient.[facility] HospitalIn the event this information is protected by the Federal Confidentiality of Alcohol and Drug Abuse Patient Records regulations: The Federal rules restrict any use of the information to criminally investigate or prosecute any alcohol or drug abuse patient.[facility] HospitalIn the event this information is protected by the Federal Confidentiality of Alcohol and Drug Abuse Patient Records regulations: The Federal rules restrict any use of the information to criminally investigate or prosecute any alcohol or drug abuse patient.[facility] HospitalIn the event this information is protected by the Federal Confidentiality of Alcohol and Drug Abuse Patient Records regulations: The Federal rules restrict any use of the information to criminally investigate or prosecute any alcohol or drug abuse patient.[facility] HospitalIn the event this information is protected by the Federal Confidentiality of Alcohol and Drug Abuse Patient Records regulations: The Federal rules restrict any use of the information to criminally investigate or prosecute any alcohol or drug abuse patient.[facility] HospitalIn the event this information is protected by the Federal Confidentiality of Alcohol and Drug Abuse Patient Records regulations: The Federal rules restrict any use of the information to criminally investigate or prosecute any alcohol or drug abuse patient.[facility] HospitalIn the event this information is protected by the Federal Confidentiality of Alcohol and Drug Abuse Patient Records regulations: The Federal rules restrict any use of the information to criminally investigate or prosecute any alcohol or drug abuse patient.[facility] HospitalIn the event this information is protected by the Federal Confidentiality of Alcohol and Drug Abuse Patient Records regulations: The Federal rules restrict any use of the information to criminally investigate or prosecute any alcohol or drug abuse patient.[facility] HospitalIn the event this information is protected by the Federal Confidentiality of Alcohol and Drug Abuse Patient Records regulations: The Federal rules restrict any use of the information to criminally investigate or prosecute any alcohol or drug abuse patient.[facility] HospitalIn the event this information is protected by the Federal Confidentiality of Alcohol and Drug Abuse Patient Records regulations: The Federal rules restrict any use of the information to criminally investigate or prosecute any alcohol or drug abuse patient.[facility] HospitalIn the event this information is protected by the Federal Confidentiality of Alcohol and Drug Abuse Patient Records regulations: The Federal rules restrict any use of the information to criminally investigate or prosecute any alcohol or drug abuse patient.[facility] HospitalIn the event this information is protected by the Federal Confidentiality of Alcohol and Drug Abuse Patient Records regulations: The Federal rules restrict any use of the information to criminally investigate or prosecute any alcohol or drug abuse patient.[facility] HospitalIn the event this information is protected by the Federal Confidentiality of Alcohol and Drug Abuse Patient Records regulations: The Federal rules restrict any use of the information to criminally investigate or prosecute any alcohol or drug abuse patient.[facility] HospitalIn the event this information is protected by the Federal Confidentiality of Alcohol and Drug Abuse Patient Records regulations: The Federal rules restrict any use of the information to criminally investigate or prosecute any alcohol or drug abuse patient.[facility] HospitalIn the event this information is protected by the Federal Confidentiality of Alcohol and Drug Abuse Patient Records regulations: The Federal rules restrict any use of the information to criminally investigate or prosecute any alcohol or drug abuse patient.[facility] HospitalIn the event this information is protected by the Federal Confidentiality of Alcohol and Drug Abuse Patient Records regulations: The Federal rules restrict any use of the information to criminally investigate or prosecute any alcohol or drug abuse patient.[facility] HospitalIn the event this information is protected by the Federal Confidentiality of Alcohol and Drug Abuse Patient Records regulations: The Federal rules restrict any use of the information to criminally investigate or prosecute any alcohol or drug abuse patient.[facility] HospitalIn the event this information is protected by the Federal Confidentiality of Alcohol and Drug Abuse Patient Records regulations: The Federal rules restrict any use of the information to criminally investigate or prosecute any alcohol or drug abuse patient.[facility] HospitalIn the event this information is protected by the Federal Confidentiality of Alcohol and Drug Abuse Patient Records regulations: The Federal rules restrict any use of the information to criminally investigate or prosecute any alcohol or drug abuse patient.[facility] HospitalIn the event this information is protected by the Federal Confidentiality of Alcohol and Drug Abuse Patient Records regulations: The Federal rules restrict any use of the information to criminally investigate or prosecute any alcohol or drug abuse patient.[facility] HospitalIn the event this information is protected by the Federal Confidentiality of Alcohol and Drug Abuse Patient Records regulations: The Federal rules restrict any use of the information to criminally investigate or prosecute any alcohol or drug abuse patient.[facility] HospitalIn the event this information is protected by the Federal Confidentiality of Alcohol and Drug Abuse Patient Records regulations: The Federal rules restrict any use of the information to criminally investigate or prosecute any alcohol or drug abuse patient.[facility] HospitalIn the event this information is protected by the Federal Confidentiality of Alcohol and Drug Abuse Patient Records regulations: The Federal rules restrict any use of the information to criminally investigate or prosecute any alcohol or drug abuse patient.[facility] HospitalIn the event this information is protected by the Federal Confidentiality of Alcohol and Drug Abuse Patient Records regulations: The Federal rules restrict any use of the information to criminally investigate or prosecute any alcohol or drug abuse patient.[facility] HospitalIn the event this information is protected by the Federal Confidentiality of Alcohol and Drug Abuse Patient Records regulations: The Federal rules restrict any use of the information to criminally investigate or prosecute any alcohol or drug abuse patient.[facility] HospitalIn the event this information is protected by the Federal Confidentiality of Alcohol and Drug Abuse Patient Records regulations: The Federal rules restrict any use of the information to criminally investigate or prosecute any alcohol or drug abuse patient.[facility] HospitalIn the event this information is protected by the Federal Confidentiality of Alcohol and Drug Abuse Patient Records regulations: The Federal rules restrict any use of the information to criminally investigate or prosecute any alcohol or drug abuse patient.[facility] HospitalIn the event this information is protected by the Federal Confidentiality of Alcohol and Drug Abuse Patient Records regulations: The Federal rules restrict any use of the information to criminally investigate or prosecute any alcohol or drug abuse patient.[facility] HospitalIn the event this information is protected by the Federal Confidentiality of Alcohol and Drug Abuse Patient Records regulations: The Federal rules restrict any use of the information to criminally investigate or prosecute any alcohol or drug abuse patient.[facility] HospitalIn the event this information is protected by the Federal Confidentiality of Alcohol and Drug Abuse Patient Records regulations: The Federal rules restrict any use of the information to criminally investigate or prosecute any alcohol or drug abuse patient.[facility] HospitalIn the event this information is protected by the Federal Confidentiality of Alcohol and Drug Abuse Patient Records regulations: The Federal rules restrict any use of the information to criminally investigate or prosecute any alcohol or drug abuse patient.[facility] HospitalIn the event this information is protected by the Federal Confidentiality of Alcohol and Drug Abuse Patient Records regulations: The Federal rules restrict any use of the information to criminally investigate or prosecute any alcohol or drug abuse patient.[facility] HospitalIn the event this information is protected by the Federal Confidentiality of Alcohol and Drug Abuse Patient Records regulations: The Federal rules restrict any use of the information to criminally investigate or prosecute any alcohol or drug abuse patient.[facility] HospitalIn the event this information is protected by the Federal Confidentiality of Alcohol and Drug Abuse Patient Records regulations: The Federal rules restrict any use of the information to criminally investigate or prosecute any alcohol or drug abuse patient.[facility] HospitalIn the event this information is protected by the Federal Confidentiality of Alcohol and Drug Abuse Patient Records regulations: The Federal rules restrict any use of the information to criminally investigate or prosecute any alcohol or drug abuse patient.[facility] HospitalIn the event this information is protected by the Federal Confidentiality of Alcohol and Drug Abuse Patient Records regulations: The Federal rules restrict any use of the information to criminally investigate or prosecute any alcohol or drug abuse patient.[facility] HospitalIn the event this information is protected by the Federal Confidentiality of Alcohol and Drug Abuse Patient Records regulations: The Federal rules restrict any use of the information to criminally investigate or prosecute any alcohol or drug abuse patient.[facility] HospitalIn the event this information is protected by the Federal Confidentiality of Alcohol and Drug Abuse Patient Records regulations: The Federal rules restrict any use of the information to criminally investigate or prosecute any alcohol or drug abuse patient.[facility] HospitalIn the event this information is protected by the Federal Confidentiality of Alcohol and Drug Abuse Patient Records regulations: The Federal rules restrict any use of the information to criminally investigate or prosecute any alcohol or drug abuse patient.[facility] HospitalIn the event this information is protected by the Federal Confidentiality of Alcohol and Drug Abuse Patient Records regulations: The Federal rules restrict any use of the information to criminally investigate or prosecute any alcohol or drug abuse patient.[facility] HospitalIn the event this information is protected by the Federal Confidentiality of Alcohol and Drug Abuse Patient Records regulations: The Federal rules restrict any use of the information to criminally investigate or prosecute any alcohol or drug abuse patient.[facility] HospitalIn the event this information is protected by the Federal Confidentiality of Alcohol and Drug Abuse Patient Records regulations: The Federal rules restrict any use of the information to criminally investigate or prosecute any alcohol or drug abuse patient.[facility] HospitalIn the event this information is protected by the Federal Confidentiality of Alcohol and Drug Abuse Patient Records regulations: The Federal rules restrict any use of the information to criminally investigate or prosecute any alcohol or drug abuse patient.[facility] HospitalIn the event this information is protected by the Federal Confidentiality of Alcohol and Drug Abuse Patient Records regulations: The Federal rules restrict any use of the information to criminally investigate or prosecute any alcohol or drug abuse patient.[facility] HospitalIn the event this information is protected by the Federal Confidentiality of Alcohol and Drug Abuse Patient Records regulations: The Federal rules restrict any use of the information to criminally investigate or prosecute any alcohol or drug abuse patient.[facility] Care Teams (unrecognized sec tion and content) Tierce Filler Relationship Specialty Start Date End Date Ricci Robbins PCP - General 12/28/17 Tierce Filler Relationship Specialty Start Date End Date Tanya Lozano, WIRE BENDER.PHOTOENGRAVING SUPERVISOR [address] [place] [address] PCP - General Internal Medicine 08/18/21 Tierce Filler Relationship Specialty Start Date End Date Tanya Lozano, WIRE BENDER.PHOTOENGRAVING SUPERVISOR [address] [facility], [place] [phone] PCP - General Internal Medicine 08/18/21 Tierce Filler Relationship Specialty Start Date End Date Tanya Lozano, WIRE BENDER.PHOTOENGRAVING SUPERVISOR [address] [facility], [place] [id number] PCP - General Internal Medicine 08/18/21 Tierce Filler Relationship Specialty Start Date End Date Tanya Lozano, WIRE BENDER.PHOTOENGRAVING SUPERVISOR [address] [facility] [place] [address] PCP - General Internal Medicine 08/18/21 Tierce Filler Relationship Specialty Start Date End Date Tanya Lozano, WIRE BENDER.PHOTOENGRAVING SUPERVISOR [address] [facility] [place] [address] PCP - General Internal Medicine 08/18/21 Tierce Filler Relationship Specialty Start Date End Date Tanya Lozano, WIRE BENDER.PHOTOENGRAVING SUPERVISOR [address] [facility] [place] [address] PCP - General Internal Medicine 08/18/21 Tierce Filler Relationship Specialty Start Date End Date Tanya Lozano, WIRE BENDER.PHOTOENGRAVING SUPERVISOR [address] [facility] [place] [address] PCP - General Internal Medicine 08/18/21 Tierce Filler Relationship Specialty Start Date End Date Tanya Lozano, WIRE BENDER.PHOTOENGRAVING SUPERVISOR [address] [facility] [place] [address] PCP - General Internal Medicine 08/18/21 Tierce Filler Relationship Specialty Start Date End Date Tanya Lozano, WIRE BENDER.PHOTOENGRAVING SUPERVISOR [address] [facility] [place] [address] PCP - General Internal Medicine 08/18/21 Tierce Filler Relationship Specialty Start Date End Date Tanya Lozano, WIRE BENDER.PHOTOENGRAVING SUPERVISOR [address] [facility] [place] [address] PCP - General Internal Medicine 08/18/21 Tierce Filler Relationship Specialty Start Date End Date Tanya Lozano WIRE BENDER.PHOTOENGRAVING SUPERVISOR [address] [facility] [place] [address] PCP - General Internal Medicine 08/18/21 Tierce Filler Relationship Specialty Start Date End Date Tanya Lozano WIRE BENDER.PHOTOENGRAVING SUPERVISOR [address] [facility], [place] [phone] PCP - General Internal Medicine 08/18/21 Tierce Filler Relationship Specialty Start Date End Date Tanya Lozano, WIRE BENDER.PHOTOENGRAVING SUPERVISOR [address] [facility], [place] [id number] PCP - General Internal Medicine 08/18/21 Tierce Filler Relationship Specialty Start Date End Date Tanya Lozano, WIRE BENDER.PHOTOENGRAVING SUPERVISOR [address] [facility], [place] [phone] PCP - General Internal Medicine 08/18/21 Tomeka Gore MD [address] [place] [address] Nephrology 07/19/23 Andreas Casillas MD [address] [place] [address] Gastroenterology 07/19/23 Tierce Filler Relationship Specialty Start Date End Date Tanya Lozano, WIRE BENDER.PHOTOENGRAVING SUPERVISOR [address] [facility] [place] [address] PCP - General Internal Medicine 08/18/21 Tomeka Gore MD [address] [place] [address] Nephrology 07/19/23 Andreas Casillas MD [address] [place] [address] Gastroenterology 07/19/23 Tierce Filler Relationship Specialty Start Date End Date Tanya Lozano, WIRE BENDER.PHOTOENGRAVING SUPERVISOR [address] [place] [address] [place] [address] PCP - General Internal Medicine 08/18/21 Tomeka Gore MD [address] [place] [address] Nephrology 07/19/23 Andreas Caslilas MD [address] [facility] [address] [place] [address] Gastroenterology 07/19/23 Tierce Filler Relationship Specialty Start Date End Date Tanya Lozano, WIRE BENDER.PHOTOENGRAVING SUPERVISOR [address] [place] [address] [place] [address] PCP - General Internal Medicine 08/18/21 Tomeka Gore MD [address] [place] [address] Nephrology 07/19/23 Andreas Casillas MD [address] [place] [address] Gastroenterology 07/19/23 Tierce Filler Relationship Specialty Start Date End Date Tanya Lozano, WIRE BENDER.PHOTOENGRAVING SUPERVISOR [address] [place] [address] [place] [address] PCP - General Internal Medicine 08/18/21 Tomeka Gore MD [address] [place] [address] Nephrology 07/19/23 Andreas Casillas MD [address] [facility] [address] [place] [address] Gastroenterology 07/19/23 Tierce Filler Relationship Specialty Start Date End Date Tanya Lozano, WIRE BENDER.PHOTOENGRAVING SUPERVISOR [address] [place], [place] [address], [place] [address] PCP - General Internal Medicine 08/18/21 Tomeka Gore MD [address] [place], [place] 435991 [phone] Nephrology 07/19/23 Andreas Casillas MD [address] [address] Gastroenterology 07/19/23 Tierce Filler Relationship Specialty Start Date End Date Tanya Lozano, WIRE BENDER.PHOTOENGRAVING SUPERVISOR [address] [place] [address] PCP - General Internal Medicine 08/18/21 Tomeka Gore MD [address] [place] [address] Nephrology 07/19/23 Andreas Casillas MD [address] [address] Gastroenterology 07/19/23 Tierce Filler Relationship Specialty Start Date End Date Tanya Lozano, WIRE BENDER.PHOTOENGRAVING SUPERVISOR [address] [place] [address] PCP - General Internal Medicine 08/18/21 Tomeka Gore MD [address] [place], [place] 519900 [phone] Nephrology 07/19/23 Andreas Casillas MD [address] [facility] [address] [place] [address] Gastroenterology 07/19/23 Tierce Filler Relationship Specialty Start Date End Date Tanya Lozano, WIRE BENDER.PHOTOENGRAVING SUPERVISOR 225 [facility] [place] [address] PCP - General Internal Medicine 08/18/21 Tomeka Gore MD [address] [place] [address] Nephrology 07/19/23 Andreas Casillas MD [address] [address] Gastroenterology 07/19/23 Tierce Filler Relationship Specialty Start Date End Date Tanya Lozano, WIRE BENDER.PHOTOENGRAVING SUPERVISOR [address] [place] [address] [place] [address] PCP - General Internal Medicine 08/18/21 Tomeka Gore MD [address] [place] [address] Nephrology 07/19/23 Andreas Casillas MD [address] [place] [address] Gastroenterology 07/19/23 Tierce Filler Relationship Specialty Start Date End Date Tanya Lozano, WIRE BENDER.PHOTOENGRAVING SUPERVISOR [address] [facility] [place] [address] PCP - General Internal Medicine 08/18/21 Tomeka Gore MD [address] [place] [address] Nephrology 07/19/23 Andreas Casillas MD [address] [facility] [address] [place] [address] Gastroenterology 07/19/23 Tierce Filler Relationship Specialty Start Date End Date Tanya Lozano, WIRE BENDER.PHOTOENGRAVING SUPERVISOR [address] [facility] [place] [address] PCP - General Internal Medicine 08/18/21 oTmeka Gore MD [address] [place] [address] Nephrology 07/19/23 Andreas Casillas MD [address] [place] [address] Gastroenterology 07/19/23 Tierce Filler Relationship Specialty Start Date End Date Tanya Lozano, WIRE BENDER.PHOTOENGRAVING SUPERVISOR [address] [place] [address] [place] [address] PCP - General Internal Medicine 08/18/21 Tomeka Gore MD [address] [place] [address] Nephrology 07/19/23 Andreas Casillas MD [address] [facility] [address] [place] [address] Gastroenterology 07/19/23 Tierce Filler Relationship Specialty Start Date End Date Tanya Lozano, WIRE BENDER.PHOTOENGRAVING SUPERVISOR [address] [place] [address] PCP - General Internal Medicine 08/18/21 Tomeka Gore MD [address] [place], [place] 972812 Nephrology 07/19/23 Andreas Casillas MD [address] [address] Gastroenterology 07/19/23 Tierce Filler Relationship Specialty Start Date End Date Tanya Lozano, WIRE BENDER.PHOTOENGRAVING SUPERVISOR [address] [place] [address] PCP - General Internal Medicine 08/18/21 Tomeka Gore MD [address] [place], [place] 449113 [phone] Nephrology 07/19/23 Andreas Casillas MD [address] [address] Gastroenterology 07/19/23 Tierce Filler Relationship Specialty Start Date End Date Tanya Lozano, WIRE BENDER.PHOTOENGRAVING SUPERVISOR [address] [place] [address] PCP - General Internal Medicine 08/18/21 Tomeka Gore MD [address] [place] [address] Nephrology 07/19/23 Andreas Casillas MD [address] [address] Gastroenterology 07/19/23 Tanya Lozano, WIRE BENDER.PHOTOENGRAVING SUPERVISOR [address] [place] [address] [id number] Home Care Provider Internal Medicine 08/13/24 Tierce Filler Relationship Specialty Start Date End Date Tanya Lozano, WIRE BENDER.PHOTOENGRAVING SUPERVISOR [address] [place] [address] PCP - General Internal Medicine 08/18/21 Tomeka Gore MD [address] [place], [place] 116452 Nephrology 07/19/23 Andreas Casillas MD [address] [address] Gastroenterology 07/19/23 Tanya Lozano, WIRE BENDER.PHOTOENGRAVING SUPERVISOR [address] [place] [address] Home Care Provider Internal Medicine 08/13/24 Tierce Filler Relationship Specialty Start Date End Date Tanya Lozano, WIRE BENDER.PHOTOENGRAVING SUPERVISOR [address] [place] [address] PCP - General Internal Medicine 08/18/21 Tomeka Gore MD [address] [place] [address] Nephrology 07/19/23 Andreas Casillas MD [address] [facility] [address] [place] [address] Gastroenterology 07/19/23 Tanya Lozano, WIRE BENDER.PHOTOENGRAVING SUPERVISOR [address] [facility] [place] [id number] Home Care Provider Internal Medicine 08/13/24 Vera Albert, TASNEEM Primary Care Chuck Boner 08/30/24 Tierce Filler Relationship Specialty Start Date End Date Tanya Lozano, WIRE BENDER.PHOTOENGRAVING SUPERVISOR [address] [facility] [place] [address] PCP - General Internal Medicine 08/18/21 Tomeka Gore MD [facility]2 [place] [address] Nephrology 07/19/23 [place] [address] [place] [address] [place] [address] Gastroenterology 07/19/23 Tanya Lozano, WIRE BENDER.PHOTOENGRAVING SUPERVISOR [address] [facility] [place] [address] Home Care Provider Internal Medicine 08/13/24 Vera Albert, TASNEEM Primary Care Chuck Boner 08/30/24 Tierce Filler Relationship Specialty Start Date End Date Tanya Lozano, WIRE BENDER.PHOTOENGRAVING SUPERVISOR [address] [facility], [place] [id number] PCP - General Internal Medicine 08/18/21 Tomeka Gore MD [address] [place], [place] 315184 [phone]- Nephrology 07/19/23 Andreas Casillas MD [address] [facility] [address] [place] [address] Gastroenterology 07/19/23 Tanya Lozano, WIRE BENDER.PHOTOENGRAVING SUPERVISOR [address] [place] [address] [place] [address] Home Care Provider Internal Medicine 08/13/24 Vera Albert, TASNEEM Primary Care Chuck Boner 08/30/24 10/01/24 Tierce Filler Relationship Specialty Start Date End Date Tanya Lozano, WIRE BENDER.PHOTOENGRAVING SUPERVISOR [address] [place] [address] PCP - General Internal Medicine 08/18/21 Tomeka Gore MD [facility] [place], [place] 611752 Nephrology 07/19/23 Andreas Casillas MD [address] [address] Gastroenterology 07/19/23 Tanya Lozano, WIRE BENDER.PHOTOENGRAVING SUPERVISOR [address] [place] [address] [place] [address] Home Care Provider Internal Medicine 08/13/24 Tierce Filler Relationship Specialty Start Date End Date Tanya Lozano, WIRE BENDER.PHOTOENGRAVING SUPERVISOR [address] [place] [address] [place] [address] PCP - General Internal Medicine 08/18/21 Tomeka Gore MD [address] [place], [place] 013032 Nephrology 07/19/23 Andreas Casillas MD [address] [place] [address] [place] [address] Gastroenterology 07/19/23 Tanya Lozano, WIRE BENDER.PHOTOENGRAVING SUPERVISOR [address] [facility], [place] [phone] Home Care Provider Internal Medicine 08/13/24 Tierce Filler Relationship Specialty Start Date End Date Tanya Lozano, WIRE BENDER.PHOTOENGRAVING SUPERVISOR [address] [facility], [place] [phone] PCP - General Internal Medicine 08/18/21 Tomeka Gore MD [address] [place], [place] 908612 Nephrology 07/19/23 Andreas Casillas MD [address] [facility] [address] [place] [address] Gastroenterology 07/19/23 Tayna Lozano, WIRE BENDER.PHOTOENGRAVING SUPERVISOR [address] [facility] [place] [address] Home Care Provider Internal Medicine 08/13/24 Tierce Filler Relationship Specialty Start Date End Date Tanya Lozano, WIRE BENDER.PHOTOENGRAVING SUPERVISOR [address] [facility], [place] [phone] PCP - General Internal Medicine 08/18/21 Tomeka Gore MD [address] [place], [place] 934082 Nephrology 07/19/23 Andreas Casillas MD [address] [facility] [address] [place] [address] Gastroenterology 07/19/23 Tanya Lozano, WIRE BENDER.PHOTOENGRAVING SUPERVISOR [address] [facility] [place] [address] Home Care Provider Internal Medicine 08/13/24 Tierce Filler Relationship Specialty Start Date End Date Tanya Lozano, WIRE BENDER.PHOTOENGRAVING SUPERVISOR [address] [facility] [place] [address] PCP - General Internal Medicine 08/18/21 Tomeka Gore MD [address] [place], [place] 592232 Nephrology 07/19/23 Andreas Casillas MD [address] [address] Gastroenterology 07/19/23 Tanya Lozano, WIRE BENDER.PHOTOENGRAVING SUPERVISOR [address] [facility] [place] [address] Home Care Provider Internal Medicine 08/13/24 Tierce Filler Relationship Specialty Start Date End Date Tanya Lozano, WIRE BENDER.PHOTOENGRAVING SUPERVISOR [address] [facility] [place] [address] PCP - General Internal Medicine 08/18/21 Tomeka Gore MD [address] [place], [place] 950815 [phone]- Nephrology 07/19/23 Andreas Casillas MD [address] [address] Gastroenterology 07/19/23 Tanya Lozano, WIRE BENDER.PHOTOENGRAVING SUPERVISOR [address] [place] [address] [place] [address] Home Care Provider Internal Medicine 08/13/24 Tierce Filler Relationship Specialty Start Date End Date Tanya Lozano, WIRE BENDER.PHOTOENGRAVING SUPERVISOR [address] [place] [address] PCP - General Internal Medicine 08/18/21 Tomeka Gore MD [address] [place], [place] 601385 [phone] Nephrology 07/19/23 Andreas Casillas MD [address] [address] Gastroenterology 07/19/23 Tanya Lozano, WIRE BENDER.PHOTOENGRAVING SUPERVISOR [address] [place] [address] [place] [address] Home Care Provider Internal Medicine 08/13/24 Tierce Filler Relationship Specialty Start Date End Date Tanya Lozano, WIRE BENDER.PHOTOENGRAVING SUPERVISOR [address] [place] [address] [place] [address] PCP - General Internal Medicine 08/18/21 Tomeka Gore MD [address] [place] [address] Nephrology 07/19/23 Andreas Casillas MD [address] [address] Gastroenterology 07/19/23 Tanya Lozano, WIRE BENDER.PHOTOENGRAVING SUPERVISOR [address] [place] [address] Home Care Provider Internal Medicine 08/13/24 Tierce Filler Relationship Specialty Start Date End Date Tanya Lozano, WIRE BENDER.PHOTOENGRAVING SUPERVISOR [address] [place] [address] PCP - General Internal Medicine 08/18/21 Tomeka Gore MD [facility] [place] [address] Nephrology 07/19/23 Andreas Casillas MD [address] [facility] [address] [place] [address] Gastroenterology 07/19/23 Tanya Lozano, WIRE BENDER.PHOTOENGRAVING SUPERVISOR [address] [place] [address] Home Care Provider Internal Medicine 08/13/24 Tierce Filler Relationship Specialty Start Date End Date Tanya Lozano, WIRE BENDER.PHOTOENGRAVING SUPERVISOR [address] [place] [address] PCP - General Internal Medicine 08/18/21 Tomeka Gore MD [address] [place] [address] Nephrology 07/19/23 Andreas Casillas MD [address] [facility] [address] [place] [address] Gastroenterology 07/19/23 Tanya Lozano, WIRE BENDER.PHOTOENGRAVING SUPERVISOR [address] [facility] [place] [phone] Home Care Provider Internal Medicine 08/13/24 Tierce Filler Relationship Specialty Start Date End Date Tanya Lozano, WIRE BENDER.PHOTOENGRAVING SUPERVISOR [address] [facility] [place] [phone] PCP - General Internal Medicine 08/18/21 Tomeka Gore MD [address] [place], [place] 383482 Nephrology 07/19/23 Andreas Casillas MD [address] [place] [address] [place] [address] Gastroenterology 07/19/23 Tanya Lozano, WIRE BENDER.PHOTOENGRAVING SUPERVISOR [address] [facility] [address] Home Care Provider Internal Medicine 08/13/24 Tierce Filler Relationship Specialty Start Date End Date Tanya Lozano, WIRE BENDER.PHOTOENGRAVING SUPERVISOR [address] [facility] [address] PCP - General Internal Medicine 08/18/21 Tomeka Gore MD [address] [place] [address] Nephrology 07/19/23 Andreas Casillas MD [address] [address] [place] [address] Gastroenterology 07/19/23 Tanya Lozano, WIRE BENDER.PHOTOENGRAVING SUPERVISOR [address] [facility] [place] [id number] Home Care Provider Internal Medicine 08/13/24 Tierce Filler Relationship Specialty Start Date End Date Tanya Lozano, WIRE BENDER.PHOTOENGRAVING SUPERVISOR [address] [facility], [place] [phone] PCP - General Internal Medicine 08/18/21 Tomeka Gore MD [address] [place], [place] 650092 Nephrology 07/19/23 Andreas Casillas MD [address] [address] [place] [address] Gastroenterology 07/19/23 Tanya Lozano, WIRE BENDER.PHOTOENGRAVING SUPERVISOR [address] [facility] [place] [address] Home Care Provider Internal Medicine 08/13/24 Tierce Filler Relationship Specialty Start Date End Date Tanya Lozano, WIRE BENDER.PHOTOENGRAVING SUPERVISOR [address] [facility] [place] [address] PCP - General Internal Medicine 08/18/21 Tomeka Gore MD [address] [place] [address] Nephrology 07/19/23 Andreas Casillas MD [address] [address] [place] [address] Gastroenterology 07/19/23 Tanya Lozano, WIRE BENDER.PHOTOENGRAVING SUPERVISOR [address] [place] [address] Home Care Provider Internal Medicine 08/13/24 Tierce Filler Relationship Specialty Start Date End Date Tanya Lozano, WIRE BENDER.PHOTOENGRAVING SUPERVISOR [address] [place] [address] [place] [address] PCP - General Internal Medicine 08/18/21 Tomeka Gore MD [address] [place], [place] 543832 Nephrology 07/19/23 Andreas Casillas MD [address] [address] Gastroenterology 07/19/23 Tanya Lozano, WIRE BENDER.PHOTOENGRAVING SUPERVISOR [address] [place] [address] Home Care Provider Internal Medicine 08/13/24 Tierce Filler Relationship Specialty Start Date End Date Tanya Lozano, WIRE BENDER.PHOTOENGRAVING SUPERVISOR [address] [place] [address] PCP - General Internal Medicine 08/18/21 Tomeka Gore MD [address] [place], [place] 062872 Nephrology 07/19/23 Andreas Casillas MD [address] [address] Gastroenterology 07/19/23 Tanya Lozano, WIRE BENDER.PHOTOENGRAVING SUPERVISOR [address] [place] [address] [phone] Home Care Provider Internal Medicine 08/13/24 Tierce Filler Relationship Specialty Start Date End Date Tanya Lozano, WIRE BENDER.PHOTOENGRAVING SUPERVISOR [address] [place] [address] PCP - General Internal Medicine 08/18/21 Tomeka Gore MD [address] [place] [address] Nephrology 07/19/23 Andreas Casillas MD [address] [place] [address] Gastroenterology 07/19/23 Tanya Lozano, WIRE BENDER.PHOTOENGRAVING SUPERVISOR [address] [place] [address] Home Care Provider Internal Medicine 08/13/24 Tierce Filler Relationship Specialty Start Date End Date Tanya Lozano, WIRE BENDER.PHOTOENGRAVING SUPERVISOR [address] [place] [address] PCP - General Internal Medicine 08/18/21 Tomeka Gore MD [address] [place] [address] Nephrology 07/19/23 Andreas Casillas MD [address] [place] [address] Gastroenterology 07/19/23 Tanya Lozano, WIRE BENDER.PHOTOENGRAVING SUPERVISOR [address] [place] [address] Home Care Provider Internal Medicine 08/13/24 Tierce Filler Relationship Specialty Start Date End Date Tanya Lozano, WIRE BENDER.PHOTOENGRAVING SUPERVISOR [address] [place], [place] [phone] PCP - General Internal Medicine 08/18/21 Tomeka Gore MD [address] [place] [address] Nephrology 07/19/23 Andreas Casillas MD [address] [address] Gastroenterology 07/19/23 Tanya Lozano, WIRE BENDER.PHOTOENGRAVING SUPERVISOR [address] [place] [address] Home Care Provider Internal Medicine 08/13/24 FOR [...] BE BASED ON THE PRIMARY CLINICAL RECORDS. [employer] provides no warranty or guarantee of the accuracy or completeness of information in this document.
[2025-07-01 08:28] LABS: Hematocrit 33.2 % (37-47); Hemoglobin 11.5 g/dL (12.0-15.0); Mean Corp Hgb Conc 34.6 g/dL (32-36); Mean Corpuscular Volume 92.2 fL (81-99); Mean Platelet Vol. 8.9 fl (6.2-12.0); Platelet Count 328 K/mm3 (150-450); RBC Distribution Width CV 14.2 % (11.6-14.6); RBC Distribution Width SD 48.3 fl (35.1-43.9); Red Blood Count 3.60 M/mm3 (4.2-5.4); White Blood Count 6.5 K/mm3 (4.4-11.0)
[2025-07-01 08:38] LABS: Anion Gap 11 (5-15); BUN 7 mg/dL (4-19); BUN/Creat Ratio 9.4 RATIO (10-20); Calcium,Total 9.6 mg/dL (7.6-11.0); Carbon Dioxide 24.8 mmol/L (21.0-32.0); Chloride 95 mmol/L (98-108); Glucose 100 mg/dL (70-99); Magnesium 2.3 mg/dL (1.5-2.2); Potassium 4.6 mmol/L (3.3-5.1); Prothrombin Time (Protime)PT. 24.3 SECONDS (11.7-14.9)
== END ==
LOC: OLS.SANC 05:00
PROVIDERS: PCP Family Medicine
DX: I10 Essential (primary) hypertension (principal); I48.91 Unspecified atrial fibrillation; E03.9 Hypothyroidism, unspecified
CPT/HCPCS: 36415; 80048; 83735; 85027; 85610

== ENCOUNTER → 2025-07-05 05:00 | Outpatient (REF) | payer MEDICARE, SELFPAY ==
[2025-07-05 07:02] LABS: Anion Gap 10 (5-15); BUN 9 mg/dL (4-19); BUN/Creat Ratio 11.9 RATIO (10-20); Calcium,Total 9.2 mg/dL (7.6-11.0); Carbon Dioxide 24.4 mmol/L (21.0-32.0); Chloride 98 mmol/L (98-108); Glucose 98 mg/dL (70-99); Potassium 4.3 mmol/L (3.3-5.1)
[2025-07-05 07:05] LABS: Prothrombin Time (Protime)PT. 21.9 SECONDS (11.7-14.9)
== END ==
LOC: OLS.SANC 05:00
PROVIDERS: PCP Family Medicine; Visit Provider Internal Medicine
DX: F03.90 Unspecified dementia, unspecified severity, without behavioral disturbance, psychotic disturbance, mood disturbance, and anxiety (principal); I82.409 Acute embolism and thrombosis of unspecified deep veins of unspecified lower extremity
CPT/HCPCS: 36415; 80048; 85610

== ENCOUNTER → 2025-07-08 | Outpatient (REF) | payer MEDICARE, SELFPAY ==
[2025-07-08 07:19] LABS: INR Fingerstick 2.1
== END ==
LOC: OLS.SANC 04:00
PROVIDERS: PCP Family Medicine
DX: Z79.01 Long term (current) use of anticoagulants (principal)
CPT/HCPCS: 36416; 85610